=== PATIENT | male | born 2000 | race Caucasian/White ===

== ENCOUNTER 2023-06-19 22:56 | Emergency (ER) | payer MEDICAID, SELFPAY ==
[2023-06-19 23:00] VITALS: BP 143/99; PULSE 84; RESP 16; TEMP 36.6; O2SAT 100; BMI 37.9
--- NOTE | 2023-06-19 23:17 | ED.ABDPAIN1 ---
HPI - Abdominal Pain General Chief Complaint: Abdominal Pain Stated Complaint: HYPERGLYCEMIA Time Seen by Provider: 06/19/23 23:13 Source: patient Mode of arrival: walk-in History of Present Illness HPI narrative: past history of diabetes. states he has not taken any medication for diabetes for a couple of months. States he was on insulin but it was d/win by his doctor to switch him to oral meds. States his insurance would not pay for the oral medication so he hasn't taken any diabetic medication. States tonight his BS was 393. Admits it was higher yesterday at >410. Tonight at work he felt light headed and also has pain of his LLQ resulting in him coming to be seen. Admits to poor compliance with his diabetes . Poor eating habits. No fever or nausea MD elicited complaint: Reports abdominal pain Radiation: Reports LLQ Related Data Allergies Allergy/AdvReac Type Severity Reaction Status Date / Time No Known Drug Allergies Allergy Verified 06/19/23 23:06 Review of Systems ROS Status of ROS 10 or more systems reviewed and unremarkable except as noted in history and below Exam Constitutional Vital Signs, click to edit/add: Last Vital Signs Temp 97.8 F 06/19/23 23:00 Pulse 84 06/19/23 23:00 Resp 16 06/19/23 23:00 BP 143/99 H 06/19/23 23:00 Pulse Ox 100 06/19/23 23:00 O2 Del Method Room Air 06/19/23 23:00 Common normals: no apparent distress, average body habitus, oriented x3, no limitations and healthy appearing Eye Common normals: EOMs intact bilaterally and conjunctivae normal Respiratory Common normals: normal respiratory effort, no retractions, no use of accessory muscles and clear to auscultation bilaterally GI Common normals: Normal to inspection, nondistended, normoactive bowel sounds present Other: mild tenderness LLQ Extremity Common normals: normal to inspection and full ROM Neuro Common normals: oriented x3, CN's II-XII intact bilaterally, moves all extremities, no focal motor deficits and no sensory deficits noted Psych Appearance: grossly normal Course Vital Signs Vital signs: Vital Signs Temperature 97.8 F 06/19/23 23:00 Pulse Rate 84 06/19/23 23:00 Respiratory Rate 16 06/19/23 23:00 Blood Pressure 143/99 H 06/19/23 23:00 Pulse Oximetry 100 06/19/23 23:00 Oxygen Delivery Method Room Air 06/19/23 23:00 Temperature 97.8 F 06/19/23 23:00 Pulse Rate 84 06/19/23 23:00 Respiratory Rate 16 06/19/23 23:00 Blood Pressure 143/99 H 06/19/23 23:00 Pulse Oximetry 100 06/19/23 23:00 Oxygen Delivery Method Room Air 06/19/23 23:00 MDM - Abdominal Pain MDM Narrative Medical decision making narrative: patient presents complaining of abdominal pain and concern for pancreatitis. CT abdomen neg. Patient history of diabetes but has not been treating. His BS elevated 457. Clinically not in DKA. Given Insulin SQ in the department. Satisfactory response to insulin and patient discharged home with a prescription for insulin and advised to follow up with his doctor Lab Data Labs: Lab Results 06/19/23 06/19/23 06/19/23 Range/Units 00:00 23:03 23:36 WBC 5.8 (4.0-11.0) 10^3/uL RBC 5.04 (4.70-6.10) 10^6/uL Hgb 16.0 (14.0-18.0) g/dL Hct 42.1 (42.0-54.0) % MCV 83.5 (80.0-94.0) fL MCH 31.7 (25.9-34.0) pg MCHC 38.0 H (29.9-35.2) g/dL RDW 12.9 (11.0-15.0) % Plt Count 139 L (150-450) 10^3/uL MPV 10.2 (9.5-13.5) fL Neut % (Auto) 59.3 (43.0-75.0) % Lymph % (Auto) 32.4 (20.5-60.0) % [place] % (Auto) 4.6 (1.7-12.0) % Eos % (Auto) 0.9 (0.9-7.0) % Baso % (Auto) 0.7 (0.2-2.0) % Neut # (Auto) 3.5 (1.4-6.5) 10^3/uL Lymph # (Auto) 1.9 (1.2-3.8) 10^3/uL [place] # (Auto) 0.3 (0.3-0.8) 10^3/uL Eos # (Auto) 0.1 (0.0-0.7) 10^3/uL Baso # (Auto) 0.0 (0.0-0.1) 10^3/uL Abs Immat Gran (auto) 0.12 H (0.00-0.03) 10^3/uL Imm/Tot Granulo (auto) 2.1 H (0.0-0.5) % Sodium 128 L (136-145) mmol/L Potassium 3.7 (3.5-5.1) mmol/L Chloride 96 L (98-107) mmol/L Carbon Dioxide 14.7 L (21.0-32.0) mmol/L Anion Gap 21.0 BUN 17.0 (7.0-18.0) mg/dL Creatinine 1.06 (0.70-1.30) mg/dL Est GFR ( Amer) >60 (>=60) Est GFR (Non-Af Amer) >60 (>=60) BUN/Creatinine Ratio 16.0 Glucose 457 H (74-106) mg/dL Lactate <0.3 L (0.4-2.0) mmol/L Calcium 6.9 L (8.5-10.1) mg/dL Total Bilirubin 1.0 (0.2-1.0) mg/dL AST 17 (15-37) U/L ALT <6 L (16-63) U/L Alkaline Phosphatase 60 (46-116) U/L Total Protein 7.0 (6.4-8.2) g/dL Albumin 3.9 (3.4-5.0) g/dL Globulin 3.1 g/dL Albumin/Globulin Ratio 1.3 Lipase 117.0 (73.0-393.0) U/L Urine Color Yellow (YELLOW) Urine Clarity Clear (CLEAR) Urine pH 6.0 (5.0-9.0) Ur Specific [place] 1.010 (1.005-1.025) Urine Protein Negative (NEG/TRACE) mg/dL Urine Glucose (UA) >=1000 A (NEGATIVE) mg/dL Urine Ketones Negative (NEGATIVE) mg/dL Urine Occult Blood Negative (NEGATIVE) Urine Nitrite Negative (NEGATIVE) Urine Bilirubin Negative (NEGATIVE) Urine Urobilinogen 0.2 (0.2-1.0) EU/dL Ur Leukocyte Esterase Negative (NEGATIVE) POC Glucose 396 H (74-106) mg/dL 06/20/23 06/20/23 Range/Units 01:42 02:32 WBC (4.0-11.0) 10^3/uL RBC (4.70-6.10) 10^6/uL Hgb (14.0-18.0) g/dL Hct (42.0-54.0) % MCV (80.0-94.0) fL MCH (25.9-34.0) pg MCHC (29.9-35.2) g/dL RDW (11.0-15.0) % Plt Count (150-450) 10^3/uL MPV (9.5-13.5) fL Neut % (Auto) (43.0-75.0) % Lymph % (Auto) (20.5-60.0) % [place] % (Auto) (1.7-12.0) % Eos % (Auto) (0.9-7.0) % Baso % (Auto) (0.2-2.0) % Neut # (Auto) (1.4-6.5) 10^3/uL Lymph # (Auto) (1.2-3.8) 10^3/uL [place] # (Auto) (0.3-0.8) 10^3/uL Eos # (Auto) (0.0-0.7) 10^3/uL Baso # (Auto) (0.0-0.1) 10^3/uL Abs Immat Gran (auto) (0.00-0.03) 10^3/uL Imm/Tot Granulo (auto) (0.0-0.5) % Sodium (136-145) mmol/L Potassium (3.5-5.1) mmol/L Chloride (98-107) mmol/L Carbon Dioxide (21.0-32.0) mmol/L Anion Gap BUN (7.0-18.0) mg/dL Creatinine (0.70-1.30) mg/dL Est GFR ( Amer) (>=60) Est GFR (Non-Af Amer) (>=60) BUN/Creatinine Ratio Glucose (74-106) mg/dL Lactate (0.4-2.0) mmol/L Calcium (8.5-10.1) mg/dL Total Bilirubin (0.2-1.0) mg/dL AST (15-37) U/L ALT (16-63) U/L Alkaline Phosphatase (46-116) U/L Total Protein (6.4-8.2) g/dL Albumin (3.4-5.0) g/dL Globulin g/dL Albumin/Globulin Ratio Lipase (73.0-393.0) U/L Urine Color (YELLOW) Urine Clarity (CLEAR) Urine pH (5.0-9.0) Ur Specific [place] (1.005-1.025) Urine Protein (NEG/TRACE) mg/dL Urine Glucose (UA) (NEGATIVE) mg/dL Urine Ketones (NEGATIVE) mg/dL Urine Occult Blood (NEGATIVE) Urine Nitrite (NEGATIVE) Urine Bilirubin (NEGATIVE) Urine Urobilinogen (0.2-1.0) EU/dL Ur Leukocyte Esterase (NEGATIVE) POC Glucose 345 H 310 H (74-106) mg/dL Discharge Plan Discharge Chief Complaint: Abdominal Pain Clinical Impression: Hyperglycemia, Abdominal pain Patient Disposition: Home, Self-Care Mode of Transportation: Private Vehicle Instructions: Abdominal Pain (ED), Diabetic Hyperglycemia (ED) Stand Alone Forms: Portal Instructions Referrals: Physician,Non-Staff, MD [Primary Care Provider] - 1 week Discharge Date/Time: 06/20/23 02:49
--- NOTE | 2023-06-19 23:22 | CT_ITS ---
[place] [id number] Patient Name: TRACIE LOTT MRN: [id number] date: 2000 Sex: M Assigned Patient Location: ER Current Patient Location: Accession/Order Number: [id number] Exam Date: 06/19/2023 23:48 Report Date: 06/20/2023 00:49 At the request of: PEACE LOPEZ Procedure: CT abdomen pelvis w con EXAMINATION: CT abdomen pelvis w con HISTORY: Abdominal pain. COMPARISON: 01/22/2023. FINDINGS: No airspace consolidation in the included lung bases. CT ABDOMEN: Low-density lesion in the left hepatic lobe adjacent to the falciform ligament, which could be fatty infiltration, similar to the prior exam. No definite additional focal lesions in the liver. No focal lesions in the gallbladder, spleen, adrenal glands. Splenomegaly redemonstrated. No focal lesions in the pancreas. Gallbladder is contracted. No hydronephrosis or hydroureter. CT PELVIS: The appendix is normal. No abnormal small bowel distention. No inflammation around the colon. Urinary bladder is distended. No free fluid or free air. Straightening of the lumbar spine. No subluxation. CT/CT abdomen pelvis w con IMPRESSION: 1. No evidence for urinary tract obstruction. No evidence for appendicitis. No inflammatory changes in the small bowel and colon. No evidence for small bowel obstruction. 2. Redemonstration of fatty infiltration of the liver. Splenomegaly again visualized. Electronically authenticated by: MARLEN BARNES Date: 06/20/2023 00:49
[2023-06-19 23:23] LABS: Glucometer 396 mg/dL (74-106)
[2023-06-19] MEDS: 0.9 % SODIUM CHLORIDE 1,000 ML 999 ML IV (23:35)
--- NOTE | 2023-06-19 23:46 | PC.NURSE ---
patient stated he had abdominal pain when he woke up today. then felt light headed 4x over 5 hours at work. Had girlfriend bring in apolinareck and his bs was 298. patient came to ER. stated he has a hx of pancreatitis. He also states he has been off his diabetic medication for 2 months. his doctor took him off insulin and placed on oral medication. patient didnt get the oral bc insurance didnt cover it. patient did not notifiy his dr. or take his insulin. Patient states his blood sugar has been 200-400 over the past two months. patient has appointment with his pcp jun 26.
[2023-06-20 00:03] LABS: Alanine Aminotransferase <6 U/L (16-63); Albumin Globulin Ratio 1.3; Albumin Level 3.9 g/dL (3.4-5.0); Alkaline Phosphatase 60 U/L (46-116); Aspartate Amino Transferase 17 U/L (15-37); Calcium 6.9 mg/dL (8.5-10.1); Carbon Dioxide 14.7 mmol/L (21.0-32.0); Chloride 96 mmol/L (98-107); Estimated GFR (African America >60 (>=60); Estimated GFR (Non-African Ame >60 (>=60); Globulin 3.1 g/dL; Glucose 457 mg/dL (74-106); Potassium 3.7 mmol/L (3.5-5.1); Sodium 128 mmol/L (136-145)
[2023-06-20 00:05] LABS: Basophils Percent Auto 0.7 % (0.2-2.0); Eosinophils Absolute Auto 0.1 10^3/uL (0.0-0.7); Eosinophils Percent Auto 0.9 % (0.9-7.0); Hematocrit 42.1 % (42.0-54.0); Immature Granulocytes Abs Auto 0.12 10^3/uL (0.00-0.03); Immature Granulocytes Pct Auto 2.1 % (0.0-0.5); Lymphocytes Absolute Auto 1.9 10^3/uL (1.2-3.8); Lymphocytes Percent Auto 32.4 % (20.5-60.0); Mean Corpuscular Hemoglobin 31.7 pg (25.9-34.0); Mean Corpuscular Volume 83.5 fL (80.0-94.0); Mean Platelet Volume 10.2 fL (9.5-13.5); Monocytes Absolute Auto 0.3 10^3/uL (0.3-0.8); Monocytes Percent Auto 4.6 % (1.7-12.0); Neutrophils Absolute Auto 3.5 10^3/uL (1.4-6.5); Neutrophils Percent Auto 59.3 % (43.0-75.0); Platelet Count 139 10^3/uL (150-450); Red Blood Count 5.04 10^6/uL (4.70-6.10); Red Cell Distribution Width 12.9 % (11.0-15.0); White Blood Count 5.8 10^3/uL (4.0-11.0)
[2023-06-20 00:06] LABS: Lactate/Lactic Acid <0.3 mmol/L (0.4-2.0)
[2023-06-20 00:17] LABS: Bilirubin Urine NEGATIVE (NEGATIVE); Blood Urine NEGATIVE (NEGATIVE); Clarity Urine CLEAR (CLEAR); Color Urine YELLOW (YELLOW); Glucose Urine UA >=1000 mg/dL (NEGATIVE); Ketones Urine NEGATIVE (NEGATIVE); Leukocyte Esterase Urine NEGATIVE (NEGATIVE); Nitrite Urine NEGATIVE (NEGATIVE); Protein Urine NEGATIVE (NEG/TRACE); Urobilinogen Urine 0.2 EU/dL (0.2-1.0)
[2023-06-20 00:18] LABS: Urine Microscopic Indicated NO
[2023-06-20] MEDS: INSULIN ASPART 300 UNIT/3 ML PEN 12 UNIT SUBQ (01:00)
[2023-06-20 02:00] LABS: Glucometer 345 mg/dL (74-106)
[2023-06-20 02:34] LABS: Glucometer 310 mg/dL (74-106)
== END 2023-06-20 02:49 | disposition home or self-care (01) ==
PROVIDERS: Emergency Provider Internal Medicine
DX: E11.65 Type 2 diabetes mellitus with hyperglycemia (principal); R10.9 Unspecified abdominal pain; T38.3X6A Underdosing of insulin and oral hypoglycemic [antidiabetic] drugs, initial encounter
CPT/HCPCS: 36415; 74177; 80053; 81003; 83605; 83690; 85025; 99284; Q9967

== ENCOUNTER 2025-02-03 10:46 | Emergency (ER) | payer MEDICAID, SELFPAY ==
[2025-02-03 10:51] VITALS: BP 158/93; PULSE 90; TEMP 36.6; O2SAT 99; BMI 36.5
--- NOTE | 2025-02-03 10:58 | ECG_ITS ---
The [facility] Test Date: 2025-02-03 Pat Name: TRACIE LOTT Department: Room: - Gender: Male Tenoner Operator: : 2000 Requested By: 1030 Order Number: [id number] Reading MD: KHUSHBOO COVARRUBIAS M.D. Measurements Intervals [place] Rate: 91 P: 51 IN: 144 QRS: 66 QRSD: 96 T: 41 QT: 310 QTc: 359 Interpretive Statements 1100 Sinus rhythm 8102 Low QRS voltage in chest leads 8305 Short QTc interval 9150 abnormal ECG Compared to ECG 01/22/2023 16:46:50 Low QRS voltage now present Sinus tachycardia no longer present Electronically Signed On 02-04-2025 10:32:19 EDT by KHUSHBOO COVARRUBIAS M.D.
--- NOTE | 2025-02-03 10:58 | ED.GENADUL1 ---
HPI HPI - General Adult General Chief complaint: Chest Pain Stated complaint: CHEST PAINS SOB Time Seen by Provider: 02/03/25 10:48 Source: patient Mode of arrival: walk-in Limitations: no limitations History of Present Illness HPI narrative: 24-year-old male presents for chest pain. He has been having it every day for 3 months and it lasts for 10 to 20 minutes at a time and it feels like stabbing. He has a little bit now but it is more dull. He thinks it might be panic attacks but he wanted to make sure it was not something more serious. No fever or productive cough or vomiting. He smokes cigarettes and marijuana. He states he stopped drinking alcohol. Related Data Allergies Allergy/AdvReac Type Severity Reaction Status Date / Time No Known Drug Allergies Allergy Verified 06/19/23 23:06 Opioid HPI Opioid Management Most Recent Opioid Data: Last Pain Scale 2 06/19/23 23:41 06/19/23 Review of Systems ROS Narrative A ten point review of systems is negative except as noted above. PFSH PFSH Social History Little interest or pleasure in doing things: not at all Feeling down, depressed, or hopeless: not at all Exam Narrative Exam Narrative: Nurses note and vital signs reviewed and patient is not hypoxic. General: The patient appears well and in no apparent distress. Patient is resting comfortably on cart. Skin: Warm, dry, no pallor noted. There is no rash noted. Head: Normocephalic, atraumatic Eye: Normal conjunctiva, no drainage Ears, Nose, Mouth, and Throat: oral mucosa is moist. Nares patent. Cardiovascular: Regular Rate and Rhythm Respiratory: Patient is in no distress, no accessory muscle use, lungs are clear to auscultation, no wheezing, rales or rhonchi Back: non-tender GI: Soft and nontender Musculoskeletal: The patient has no evidence of calf tenderness, no pitting edema, symmetrical pulses noted bilaterally Neurological: A&O, normal speech Psychiatric: Cooperative Constitutional Vital Signs, click to edit/add: Last Vital Signs Temp 97.8 F 02/03/25 10:51 Pulse 90 02/03/25 10:51 Resp 18 02/03/25 10:51 BP 158/93 H 02/03/25 10:51 Pulse Ox 99 02/03/25 10:51 O2 Del Method Room Air 02/03/25 10:51 Course Vital Signs Vital signs: Vital Signs Temperature 97.8 F 02/03/25 10:51 Pulse Rate 90 02/03/25 10:51 Respiratory Rate 18 02/03/25 10:51 Blood Pressure 158/93 H 02/03/25 10:51 Pulse Oximetry 99 02/03/25 10:51 Oxygen Delivery Method Room Air 02/03/25 10:51 Temperature 97.8 F 02/03/25 10:51 Pulse Rate 90 02/03/25 10:51 Respiratory Rate 18 02/03/25 10:51 Blood Pressure 158/93 H 02/03/25 10:51 Pulse Oximetry 99 02/03/25 10:51 Oxygen Delivery Method Room Air 02/03/25 10:51 Medical Decision Making MDM Narrative Medical decision making narrative: His workup is negative here, including chest x-ray, EKG, and blood work. He will be discharged home and was advised follow-up with his physician. Treatment diagnosis and follow-up were discussed with the patient. Differential Diagnosis Differential Diagnosis: Chest pain, acute coronary syndrome, pneumothorax, muscle strain, anxiety Lab Data Lab results reviewed: Yes I reviewed the patient's lab results Labs: Lab Results 02/03/25 Range/Units 11:00 WBC 5.3 (4.0-11.0) 10^3/uL RBC 5.34 (4.70-6.10) 10^6/uL Hgb 16.9 (14.0-18.0) g/dL Hct 46.4 (42.0-54.0) % MCV 86.9 (80.0-94.0) fL MCH 31.6 (25.9-34.0) pg MCHC 36.4 H (29.9-35.2) g/dL RDW 12.8 (11.0-15.0) % Plt Count 150 (150-450) 10^3/uL MPV 9.7 (9.5-13.5) fL Neut % (Auto) 63.6 (43.0-75.0) % Lymph % (Auto) 27.6 (20.5-60.0) % Loving % (Auto) 6.0 (1.7-12.0) % Eos % (Auto) 1.1 (0.9-7.0) % Baso % (Auto) 0.6 (0.2-2.0) % Neut # (Auto) 3.4 (1.4-6.5) 10^3/uL Lymph # (Auto) 1.5 (1.2-3.8) 10^3/uL Loving # (Auto) 0.3 (0.3-0.8) 10^3/uL Eos # (Auto) 0.1 (0.0-0.7) 10^3/uL Baso # (Auto) 0.0 (0.0-0.1) 10^3/uL Abs Immat Gran (auto) 0.06 H (0.00-0.03) 10^3/uL Imm/Tot Granulo (auto) 1.1 H (0.0-0.5) % Sodium 139 (136-145) mmol/L Potassium 5.0 (3.5-5.1) mmol/L Chloride 102 (98-107) mmol/L Carbon Dioxide 28.5 (21.0-32.0) mmol/L Anion Gap 13.5 BUN 17.0 (7.0-18.0) mg/dL Creatinine 1.10 (0.70-1.30) mg/dL Est GFR ( Amer) >60 (>=60 mL/min/1.73m^2) Est GFR (Non-Af Amer) >60 (>=60 mL/min/1.73m^2) BUN/Creatinine Ratio 15.5 Glucose 304 H (74-106) mg/dL Calcium 9.3 (8.5-10.1) mg/dL Troponin I High Sens <4.0 L (4.0-76.1) pg/mL Imaging Data Chest x-ray: Radiologist's impression: No acute process ECG Data Attestation: I personally reviewed and interpreted this ECG as follows: (EKG on my interpretation shows normal sinus rhythm with rate of 91 and no acute change.) Discharge Plan Discharge Chief Complaint: Chest Pain Clinical Impression: Chest pain Patient Disposition: Home, Self-Care Time of Disposition Decision: 11:41 Condition: Good Mode of Transportation: Private Vehicle Print Language: Beninese Instructions: Chest Pain (ED) Referrals: Physician,Non-Staff, MD [Primary Care Provider] - 1 week
[2025-02-03 11:12] LABS: Basophils Percent Auto 0.6 % (0.2-2.0); Eosinophils Absolute Auto 0.1 10^3/uL (0.0-0.7); Eosinophils Percent Auto 1.1 % (0.9-7.0); Hematocrit 46.4 % (42.0-54.0); Hemoglobin 16.9 g/dL (14.0-18.0); Immature Granulocytes Abs Auto 0.06 10^3/uL (0.00-0.03); Immature Granulocytes Pct Auto 1.1 % (0.0-0.5); Lymphocytes Absolute Auto 1.5 10^3/uL (1.2-3.8); Lymphocytes Percent Auto 27.6 % (20.5-60.0); Mean Corpuscular HGB Conc 36.4 g/dL (29.9-35.2); Mean Corpuscular Hemoglobin 31.6 pg (25.9-34.0); Mean Corpuscular Volume 86.9 fL (80.0-94.0); Monocytes Absolute Auto 0.3 10^3/uL (0.3-0.8); Neutrophils Absolute Auto 3.4 10^3/uL (1.4-6.5); Neutrophils Percent Auto 63.6 % (43.0-75.0); Red Blood Count 5.34 10^6/uL (4.70-6.10); Red Cell Distribution Width 12.8 % (11.0-15.0); White Blood Count 5.3 10^3/uL (4.0-11.0)
[2025-02-03 11:22] LABS: Mean Platelet Volume 9.7 fL (9.5-13.5); Platelet Count 150 10^3/uL (150-450)
[2025-02-03 11:30] LABS: Anion Gap 13.5; BUN Creatinine Ratio 15.5; Calcium 9.3 mg/dL (8.5-10.1); Carbon Dioxide 28.5 mmol/L (21.0-32.0); Chloride 102 mmol/L (98-107); Estimated GFR (African America >60 (>=60 mL/min/1.73m^2); Estimated GFR (Non-African Ame >60 (>=60 mL/min/1.73m^2); Glucose 304 mg/dL (74-106); Sodium 139 mmol/L (136-145); Troponin I High Sensitivity <4.0 pg/mL (4.0-76.1)
== END 2025-02-03 12:01 | disposition home or self-care (01) ==
PROVIDERS: Emergency Provider Emergency Medicine
DX: R07.9 Chest pain, unspecified (principal); F17.210 Nicotine dependence, cigarettes, uncomplicated
CPT/HCPCS: 36415; 71045; 80048; 84484; 85025; 93005; 99285

== ENCOUNTER 2025-03-31 03:25 | Emergency (ER) | payer MEDICAID, SELFPAY ==
[2025-03-31 03:36] VITALS: BP 150/97; PULSE 104; TEMP 37; O2SAT 96; BMI 35.8
--- OUTSIDE RECORDS SUMMARY | 2025-03-31 03:40 | XMS_ITS | CCD ---
Author Organization [facility] Care Team Providers Care Ammunition Officer Name Role Phone Fito Villalobos Primary Care Provider Fito Villalobos Primary Care Provider FITO VILLALOBOS Referring Unavailable FITO VILLALOBOS Primary Care Unavailable FITO VILLALOBOS Referring Unavailable FITO VILLALOBOS Primary Care Unavailable FITO VILLALOBOS Primary Care Unavailable THUMMALAPALLY, RUSHEETH Admitting Unavaila ble THMOISES BACKH Attending Unavaila Fito Koch Primary Care Provider FITO VILLALOBOS Primary Care Unavailable DEGROOT, MARIXA Consulting Unavailable DEGROOT, MARIXA Admitting Unavailable JEAN PIERRE BARTON Attending Unavailable FITO VILLALOBOS Primary Care Unavailable JAMES, YOLANDA Consulting Unavailable THUMTRIXIE, MACKENZIEHEETH Attending Unavaila ble THUMMALAPALLMACKENZIE ObregonHEETH Admitting Unavaila ble CASEY, WANDA S Consulting Unavailable CHELSEA Olivas Attending Provider Unavail able Lynn Olivas Unavailable NON STAFF Attending Provider Unavailable MD John Kraft Attending Provider REQUEST, DR NONE LISTED Primary Care Unavaila gail Davey, DR DEE Admitting Unavailable RADHA Davey, DR DEE Attending Unavailable RADHA Davey, DR DEE Consulting Unavailable HENRRY, DR CÉSAR Metzger Consulting Unavailable SMITH, CAYETANO Consulting Unavailable SHAIKH Joyce KRAFT Consulting Unavailable SISTER, ADRI Consulting Unavailable DIAB ., TELMA Consulting Unavailable STEPHANIE, BRIGITTE Consulting Unavailable WAN ANGEL Attending Unavailable FANNY SOTO Referring Unavailable JOSELINE MOJICA Attending Unavailable FANNY SOTO Referring Unavailable Demetria Cifuentes Unavailable Olegario COSTA Attending Unavailable SELF, SELF Referring Unavailable Joel PATEL Attending Unavailable Joel PATEL Attending Unavailable Joel PATEL Attending Unavailable HAILEE Cifuentes Primary Care Provider DO Yane Briscoe Emergency Provider MD Blue Talbot Admit Provider MD Blue Talbot Attending Provider ANGELO Kaur Other Provider Unavailable ANGELO Genao Other Provider Unavailable ANGELO Leach Other Provider Unavailable ANGELO Nettles Other Provider Unavailable ANGELO Rivas Other Provider Unavailable DO Amber Dillon Other Provider MD Delano Vicente Other Provider DO Von Roberts Other Provider MD Flex Govea Other Provider MD Sunshine Couch Other Provider MD Ari Blackmon Other Provider Unavailable HAILEE Valdes Other Provider MD Aryan Santos Other Provider MD Victor Hugo Menjivar Other Provider MD Helen Hernandez Other Provider MD Leti Tucker Other Provider DO Mauricio White Other Provider MD Nubia Dhaliwal Other Provider MD Panchito Ferro Other Provider CHELSEA Montanez Other Provider HAILEE Danielle Other Provider Unavailable MD Ramesh Garcia Other Provider MD Oz Carrillo Other Provider MD Salty Pena Other Provider MD Adry Weeks Other Provider Unavailable MD Tony Wayne Other Provider DO Katie Cantu Other Provider DO Escobar Jones Other Provider HAILEE Garcia Other Provider DO Manohar Carter Other Provider MD Dayan Perrin Other Provider HAILEE Finley Other Provider HAILEE Correa Other Provider [phone] MD Wilfred Moreno Other Provider MD Hudson Turner Other Provider [phone] DO Maged Francisco Javier T Other Provider DO Jermaine Yazid Other Provider MD Jean Darius P Other Provider MD Blair Ni Other Provider HAILEE Vasquez Other Provider MD Xiomy Rocha Other Provider MD Sam Wolfe Other Provider ANGELO Curiel Other Provider Unavailable NO FAMILY, PHYSICIAN Primary Care Provider Unava ilable Guillermina Shetty APRN Emergency Provider Blue Talbot MD Admit Provider Blue Talbot MD Attending Provider [phone] Demetria Cifuentes APRN Primary Care Provider Blue Talbot MD Attending Provider Natasha RN, Yane Other Provider Unavailable Birgit STEPHENS, Tiffanie Other Provider Unavailable Haylee RN, Ria Other Provider Unavailable Tho RN, Latasha Other Provider Unavailable Rob RN, Alicia Other Provider Unavailable Juan M Beltran MD Other Provider Amber Dillon DO Other Provider Cinthia GALINDO, Delano Other Provider Von Roberts DO Other Provider Xuan GALINDO, Flex Other Provider [phone] Khoa GALINDO, Sunshine Other Provider Inge RED, Mauricio Other Provider Neymar GALINDO, Ari Other Provider Unavailable Rola Valdes APRN Other Provider Danielle GALINDO, Aryan Other Provider [phone] Tiara GALINDO, Victor Hugo Other Provider David GALINDO, Helen Other Provider Unavailable Leti Tucker MD Other Provider Mauricio White DO Other Provider Nubia Dhaliwal MD Other Provider Panchito Ferro MD Other Provider Tarik PICKLING MACHINE OPERATOR-C, Gabriela Cardona Other Provider Shashi STEPHEN, Veronica Reina Other Provider Unavailable Ramesh Garcia MD Other Provider Oz Carrillo MD Other Provider Jean GALINDO, Salty Other Provider Desi GALINDO, Adry Other Provider Unavailable Tony Wayne MD Other Provider Katie Cantu DO Other Provider Escobar Jones DO Other Provider Lynnette Garcia APRN Other Provider Manohar Carter DO Other Provider [phone] Marychuy GALINDO, Dayan Reina Other Provider Iza Finley APRN Other Provider Hanna Correa APRN Other Provider [phone] Josh GALINDO, Wilfred Other Provider Unavailable Johnny GALINDO, Hudson Cardona Other Provider Lynne DO, Francisco Javier T Other Provider Jermaine DO, Yazid Other Provider Jean GALINDO, Darius Berrios Other Provider Blair Ni MD Other Provider Mesha Vasquez APRN Other Provider Unavailable Aj GALINDO, Xiomy Other Provider Yaneth GALINDO, Sam Other Provider Devaughn GALINDO, Emeka Joseph Other Provider Yasemin GALINDO, Ari Perez Other Provider [phone] Wale Beck MD Other Provider Nicolasa Cramer APRN Other Provider Nathaniel Garcia APRN Other Provider Veena STEPHENS, Saloni Other Provider Unavailable Ceferino Edwards MD Attending Provider [phone] [facility] ider Blue Talbot Attending Unavailab Blue Hernandez Admitting Unavailab Demetria Oshea Primary Care Unavailable Yane Kaur Consulting Unavailable Tiffanie Genao Consulting Unavailable Ria Leach Consulting Unavailable Latasha Nettles Consulting Unavailable Alicia Rivas Consulting Unavailable Amber Dillon Consulting Unavailable Delano Vicente Consulting Unavailable Von Roberts Consulting Unavailabl Flex Kim Consulting Unavailable Sunshine Couch Consulting Unavailable Ari Blackmon Consulting Unavailable Rola Valdes Consulting Unavailabl Esther Lillywan Consulting Unavailable Tiara, Victor Hugo Consulting Unavailable David, Helen Consulting Unavailable Leanne Tuckern Consulting Unavailable Mauricio White Consulting Unavailable Nubia Dhaliwal Consulting Unavailable Panchito Ferro Consulting Unavailable Gabriela Montanez Consulting Unavailable Veronica Danielle Consulting Unavailable Ramesh Garcia Consulting Unavailab Oz Galvan Consulting Unavailable Salty Pena Consulting Unavailable Adry Weeks Consulting Unavailable Tony Wayne Consulting Unavailable Katie Cantu Consulting Unavailable Escobar Jones Consulting Unavailable Lynnette Garcia Consulting Unavailable Manohar Carter Consulting Unavailable Dayan Perrin Consulting Unavailable Iza Finley Consulting Unavailable Hanna Correa Consulting Unavailable Wilfred Moreno Consulting Unavailable Hudson Turner Consulting Unavailable Francisco Javier Lynne Consulting Unavailable Karrie Dean Consulting Unavailable Darius Pena Consulting Unavailable Blair Ni Consulting Unava ilable Mesha Vasquez Consulting Unavailable Xiomy Rocha Consulting Unavailable Sam Wolfe Consulting Unavailable Saloni Curiel Consulting Unavailable Guillermina Shetty Attending Unavailable [facility] U navailable Guillermina Shetty Admitting Unavailable Blue Talbot Attending Unavailab Blue Hernandez Admitting Unavailab Demetria Oshea Primary Care Unavailable Yane Kaur Consulting Unavailable NO FAMILY, PHYSICIAN Primary Care Unavailable Loly Talbotrahman Admitting Unavailab Ceferino Abraham Attending Unavailable Tiffanie Genao Consulting Unavailable Ria Leach Consulting Unavailable Latasha Nettles Consulting Unavailable Alicia Rivas Consulting Unavailable Juan M Beltran Consulting Unavailable Amber Dillon Consulting Unavailable Delano Vicente Consulting Unavailable Von Roberts Consulting UnavailFlex Rodney Consulting Unavailable Sunshine Couch Consulting Unavailable Mauricio Alcazar Consulting Unavailable Ari Blackmon Consulting Unavailable Rola Valdes Consulting Unavailfranklyn Santos, Marwan Consulting Unavailable Tiara, Victor Hugo Consulting Unavailable Hernandez, Helen Consulting Unavailable Leti Tucker Consulting Unavailable Mauricio White Consulting Unavailable Nubia Dhaliwal Consulting Unavailable Panchito Ferro Consulting Unavailable Gabriela Montanez Consulting Unavailable Veronica Danielle Consulting Unavailable Ramesh Garcia Consulting Unavailab Oz Galvan Consulting Unavailable Salty Pena Consulting Unavailable Adry Weeks Consulting Unavailable Tony Wayne Consulting Unavailable Katie Cantu Unavailable Escobar Jones Consulting Unavailable Lynnette Garcia Consulting Unavailable Manohar Carter Consulting Unavailable AbneromaDayan barber Consulting Unavailable Iza Finley Consulting Unavailable Hanna Correa Consulting Unavailable Wilfred Moreno Consulting Unavailable Hudson Turner Consulting Unavailable Francisco Javier Lynne Consulting Unavailable Karrie Dean Consulting Unavailable Darius Pena Consulting Unavailable Blair Ni Consulting Unava Mesha Yuan Consulting Unavailable Xiomy Rocha Consulting Unavailable Sam Wolfe Consulting Unavailable Emeka Cantor Consulting Unavailable Ari Hazel Consulting Unavailable Wale Beck Consulting Unavailable Nicolasa Cramer Consulting Unavailable Bolzan-Tc Gallolettcarmela Consulting Unavaila Saloni Coleman Consulting Unavailable Allergies Allergy Classification Reported Allergen(s) Allergy Type Date of Onset Reaction(s) Facility (1 source) Adhesive Tape Propensity to adverse reactions to drug 0 Rash [place], [place] (1 source) No Known Medication Allergies; 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: [No Known Medication Allergies] Propensity to adverse reactions (disorder) [facility] Repository Medications Current Medications Medication Drug Class(es) Dates Sig (Normalized) Sig (Original) Acetaminophen (1 source) Start: 07-30-2020 acetaminophen (TYLENOL) tablet 650 mg ARIPiprazole 5 mg oral tablet (9 sources) Atypical Antipsychotic Start: 01-09-2025 take 1 tablet by mouth once daily Aripiprazole 5 mg Tablet Active 5 MG PO Daily 30 January 09, 2025 12:00am Start: 01-09-2025 Aripiprazole ( Abilify Maintena) 400 mg Suspension,Extended Rel Syring Active 400 MG IM Q28D January 09, 2025 12:00am Start: 2020 End: 07-31-2020 take 1 tablet by mouth once daily ARIPiprazole (ABILIFY) 2 MG tablet Take 1 tablet by mouth daily 30 tablet 0 2020 07/31/2020 Discontinued (LIST CLEANUP) End: 08-05-2020 take 1 tablet by mouth once daily ARIPiprazole (ABILIFY) 10 MG tablet Take 10 mg by mouth daily 0 08/05/2020 Discontinued (Stop Taking at Discharge) End: 08-01-2020 take 1 tablet by mouth once daily ARIPiprazole (ABILIFY) 5 MG tablet Take 5 mg by mouth daily 0 08/01/2020 Discontinued (Stop Taking at Discharge) atorvastatin 40 mg oral tablet (3 sources) HMG-CoA Reductase Inhibitor Start: 07-31-2020 take 1 tablet by mouth once daily atorvastatin (LIPITOR) 40 MG tablet Take 1 tablet by mouth daily 30 tablet 3 08/01/2020 Active Blood Sugar Diagnostic (3 sources) Start: 06-29-2024 Blood Sugar Diagnostic Active 0 .Route 100 June 29, 2024 12:00am to test blood sugar 5 times daily Blood-Glucose Meter (3 sources) Start: 06-29-2024 Blood-Glucose Meter Active 0 .Route 1 June 29, 2024 12:00am to test blood sugar daily Blood-Glucose Meter kit (2 sources) Start: 06-29-2024 Blood-Glucose Meter kit Active 0 .Route 1 June 29, 2024 12:00am to test blood sugar daily 24 hr buPROPion hydrochloride 300 mg extended release oral tablet (20 sources) Aminoketone Start: 04-25-2024 buPROPion 300 mg/24 hours ER Tab Refills(s) 0 Start Date: 04/25/24 Status: Ordered Start: 02-15-2024 End: 06-29-2024 take 1 tablet by mouth once daily in the morning Bupropion Hcl (Wellbutrin Xl) 300 mg tablet extended release 24 hr Discontinued 300 MG PO Every morning February 15, 2024 12:00am June 29, 2024 11:14am Start: 12-08-2023 End: 02-15-2024 take 1 tablet by mouth once daily in the morning Bupropion Hcl 150 mg tablet extended release 24 hr Discontinued 150 MG PO Every morning 90 December 22, 2023 4:12pm February 15, 2024 11:03am ciprofloxacin 500 mg oral tablet (1 source) Quinolone Antimicrobial Start: 04-25-2024 End: 04-30-2024 take 1 tablet by mouth twice daily at mealtime Cipro 500 mg Tab 500 mg = 1 tab(s), Oral, BID, start with first meal after procedure, X 5 day(s), # 10 tab(s), Refills(s) 0, Pharmacy: [facility]/pharmacy #[id number], 174, cm, 04/25/24 11:22:00 EDT, Height/Length Dosing, 113.5, kg, 04/25/24 11:22:00 EDT, Weight Dosing Start Date: 04/25/24 Stop Date: 04/30/24 Status: Ordered diazePAM 10 mg oral tablet (2 sources) Benzodiazepine Start: 04-25-2024 take 1 tablet by mouth once daily Valium 10 mg Tab 10 mg = 1 tab(s), Oral, Daily, take 30 minutes prior to procedure, # 1 tab(s), Refills(s) 0, Pharmacy: [facility]/pharmacy #[id number], 174, , 04/25/24 11:22:00 EDT, Height/Length Dosing, 113.5, kg, 04/25/24 11:22:00 EDT, Weight Dosing Start Date: 04/25/24 Status: Ordered 0.3 ml enoxaparin sodium 100 mg/ml prefilled syringe (1 source) Low Molecular Weight Heparin Start: 07-31-2020 enoxaparin (LOVENOX) injection 30 mg escitalopram 10 mg oral tablet (6 sources) Serotonin Reuptake Inhibitor Start: 01-09-2025 Escitalopram Oxalate 10 mg Tablet Active 15 MG PO Every morning January 09, 2025 12:00am Start: 01-05-2025 End: 01-09-2025 take 1 tablet by mouth once daily in the morning Escitalopram Oxalate 10 mg Tablet Discontinued 10 MG PO Every morning January 05, 2025 12:00am January 09, 2025 1:04pm Start: 08-04-2024 End: 01-05-2025 Escitalopram Oxalate 10 mg T ablet Discontinued 15 MG PO Every morning August 04, 2024 12:00am January 05, 2025 6:20pm Start: 08-04-2024 take 15 mg by mouth once daily in the morning Escitalopram Oxalate Active 15 MG PO Every morning August 044 12:00am famotidine 20 mg oral tablet (3 sources) Histamine-2 Receptor Antagonist Start: 07-30-2020 take 1 tablet by mouth twice daily famotidine (PEPCID) 20 MG tablet Take 1 tablet by mouth 2 times daily 60 tablet 3 08/01/2020 Active glucagon (rdna) 1 mg injection (1 source) Antihypoglycemic Agent Start: 07-30-2020 take 1 mL intravenous route every hour 1 mg, Intramuscular, PRN, Low blood sugar, Blood glucose less than 70 mg/dL and patient NOT ALERT or NPO and does not have IV access., Starting 07/30/20 at 2152 After administration, attempt intravenous access and start D5W at 100 mL/hr. Repeat blood glucose in 15 minutes x2 and notify provider. 1000 ml glucose 500 mg/ml injection (3 sources) Start: 07-30-2020 15 g, Oral, PRN, Low blood sugar, Starting 07/30/20 at 2152 If blood glucose less than 50 mg/dL and patient ALERT and TOLERATING PO, give 2 tubes glucose gel. If blood glucose less than 70 mg/dL and patient ALERT and TOLERATING PO, give 1 tube glucose gel. Repea t blood glucose in 15 minutes. If blood glucose is less than 70 mg/dL, repeat treatment and recheck blood glucose in 15 minutes x2 and notify provider. Start: 07-30-2020 12.5 g, Intrav enous, PRN, Low blood sugar, Blood glucose less than 70 mg/dL and patient NOT ALERT or NPO., Starting 07/30/20 at 2152 If patient does not respond within 5 minutes, repeat dose x1. Start D5W at 100 mL/hour until ordering provider can be reached. Repeat blood glucose in 15 minutes. If blood glucose is less than 70 mg/dL, repeat treatment and recheck blood glucose in 15 minutes x2. If using Glucostabilizer, dose as instructed per system. Start: 07-30-2020 100 mL/hr, Int ravenous, at 100 mL/hr, PRN, Low blood sugar, Starting 07/30/20 at 2152 Start infusion following administration of dextrose 50% or glucagon. hydrOXYzine hydrochloride 50 mg oral tablet (5 sources) Antihistamine Start: 2020 End: 03-16-2020 take 1 tablet by mouth three times daily as needed for anxiety hydrOXYzine (ATARAX) 50 MG tablet Take 1 tablet by mouth 3 times daily as needed for Anxiety 45 tablet 0 2020 03/16/2020 Active take 1 capsule by mo uth four times daily as needed hydrOXYzine (VISTARIL) 50 MG capsule Take 50 mg by mouth 4 times daily as needed for Itching 0 Active End: 08-01-2020 HYDROXYZINE HCL PO Take by m outh 0 08/01/2020 Discontinued (Stop Taking at Discharge) 3 ml insulin glargine 100 unt/ml pen injector (6 sources) Insulin Analog Start: 01-05-2025 Insulin Glargi ne (Lantus Solostar U-100 Insulin) 100 unit/mL (3 mL) insulin pen Active 35 UNIT SUBCUT Every evening January 05, 2025 12:00am Start: 06-29-2024 End: 01-05-2025 Insulin Glargine (Lantus Rosita ostar U-100 Insulin) 100 unit/mL (3 mL) insulin pen Discontinued 36 UNIT SUBCUT Every evening 10.8 30 June 29, 2024 2:21pm January 05, 2025 6:39pm 3 ml insulin lispro 100 unt/ml pen injector (5 sources) Insulin Analog Start: 04-25-2024 Insulin Lispro KwikPen 100 units/mL injectable solution Refills(s) 0 Start Date: 04/25/24 Status: Ordered Start: 07-31-2020 0-12 Units, Subcutaneous, 3 TIMES DAILY WITH MEALS, First dose on Thu07/31/20 at 0800 Medium Dose Corrective Algorithm Glucose: Dose: If <139 No Insulin 140-199 2 Units 200-249 4 Units 250-299 6 Units 300-349 8 Units 350-400 10 Units Above 400 12 Units Start: 07-30-2020 0-6 Units, Subcutaneous, NIG HTLY, First dose on Thu07/30/20 at 2200 If continuous tube feedings/TPN/NPO, give correction dose based on result, no reduction in dose. If eating or bolus tube feeding: Medium Dose Corrective Algorithm Glucose: Dose: If <139 No Insulin 140-199 1 Unit 200-249 2 Units 250-299 3 Units 300-349 4 Units 350-400 5 Units Above 400 6 Units HumaLOG KwikPen 100 UNIT/ML as directed Subcutaneous sliding scale and corrective. for 30 days Active Insulin Lispro (Humalog Kwik pen Insulin) 100 unit/mL insulin pen (14 sources) Start: 06-29-2024 Insulin Lispro (Humalog Kwikpen Insulin) 100 unit/mL insulin pen Active 1 sliding scale dose SUBCUT Use as Directed June 29, 2024 11:22am 12 units with each meal 150-200 - 3 units 200-330 - 6 units 330-399 - 9 units > 400 - 12 units Start: 12-08-2023 End: 06-29-2024 Insulin Lispro (Humalog Kwik pen Insulin) 100 unit/mL insulin pen Discontinued 1 sliding scale dose SUBCUT Use as Directed December 08, 2023 1:00am June 29, 2024 11:23am Start: 12-08-2023 Insulin Lispro (Humalog Kwikpen Insulin) 100 unit/mL insulin pen Active 1 sliding scale dose SUBCUT Use as Directed December 08, 2023 1:00am Start: 12-08-2023 Insulin Lispro (Humalog Kwikpen Insulin) 100 unit/mL insulin pen Active 1 sliding scale dose SUBCUT Use as Directed December 08, 2023 12:00am lamoTRIgine 25 mg oral tablet (9 sources) Mood Stabilizer, Anti-epileptic Agent Start: 08-04-2024 End: 01-09-2025 take 1 tablet by mouth twice daily Lamotrigine 25 mg Tablet Active 25 MG PO Twice daily 60 January 09, 2025 12:46pm Start: 02-14-2020 LaMICtal 25 MG Oral Tablet 02/14/2020 Provider: Fito Villalobos CNP meloxicam 7.5 mg oral tablet (3 sources) Nonsteroidal Anti-inflammatory Drug Start: 02-14-2020 Mobic 7.5 MG Oral Tablet 02/14/2020 Provider: Fito Villalobos CNP metFORMIN hydrochloride 1000 mg oral tablet (5 sources) Biguanide Start: 01-05-2025 take 1 tablet by mouth twice daily Metformin 1,000 mg tablet Active 1000 MG PO Twice daily January 05, 2025 12:00am Start: 08-05-2020 take 1 tablet by usha th twice daily at mealtime metFORMIN (GLUCOPHAGE) 1000 MG tablet Take 1 tablet by mouth 2 times daily (with meals) 60 tablet 0 08/05/2020 Active End: 08-05-2020 take 500 mg by mouth twice daily at mealtime METFORMIN HCL PO Take 500 mg by mouth 2 times daily (with meals) 0 08/05/2020 Discontinued (Stop Taking at Discharge) nicotine 2 mg chewing gum (1 source) Cholinergic Nicotinic Agonist Start: 07-31-2020 nicotine polacrilex (NICORETTE) gum 2 mg polyethylene glycol 3350 92413 mg powder for oral solution (1 source) Osmotic Laxative Start: 07-30-2020 17 g, Oral, DAILY PRN, Constipation, Starting 07/30/20 at 2152 First line therapy for constipation Promethazine (1 source) Phenothiazine Start: 07-30-2020 promethazine (PHENERGAN) tablet 12.5 mg sertraline 50 mg oral tablet (1 source) Serotonin Reuptake Inhibitor Start: 08-06-2020 take 1 tablet by mouth once daily sertraline (ZOLOFT) 50 MG tablet Take 1 tablet by mouth daily 30 tablet 3 08/06/2020 Active Start: 08-06-2020 take 1 tablet by usha th once daily sertraline (ZOLOFT) 50 MG tablet Take 1 tablet by mouth daily 30 tablet 3 08/06/2020 Active 1000 ml sodium chloride 9 mg/ml injection (4 sources) Start: 07-30-2020 10 mL, Intrave nous, EVERY 12 HOURS SCHEDULED (2 times per day), First dose on Thu07/30/20 at 2200 Start: 07-30-2020 take 10 mL intraveno us route once as needed 10 mL, Intravenous, PRN, Line Care, After every IV line use, Starting Thu07/30/20 at 2152 Start: 07-30-2020 End: 07-30-2020 Intravenous, at 75 mL/hr, CONTINUOUS, Starting Thu07/30/20 at 2200 traZODone hydrochloride 150 mg oral tablet (6 sources) Serotonin Reuptake Inhibitor Start: 01-05-2025 End: 01-09-2025 take 1 tablet by mouth at bedtime Trazodone 150 mg tablet Active 150 MG PO Bedtime January 09, 2025 12:46pm Start: 2020 take 1 tablet by usha th once daily as needed for sleep traZODone (DESYREL) 50 MG tablet Take 1 tablet by mouth nightly as needed for Sleep 30 tablet 0 2020 Active Completed/Discontinued Medications Medication Drug Class(es) Dates Sig (Normalized) Sig (Original) [id number] 200 actuat albuterol 0.09 mg/actuat metered dose inhaler (8 sources) beta2-Adrenergic Agonist Start: 12-11-2023 End: 07-27-2024 take 1 puff(s) by inhalation four times daily as needed for wheezing Albuterol Sulfate 90 mcg/actuation HFA aerosol inhaler Discontinued 2 PUFF INHALATION Four times daily as needed for shortness of breath or wheezing 8.5 December 11, 2023 1:00am July 27, 2024 4:05pm atomoxetine 40 mg oral capsule (13 sources) Norepinephrine Reuptake Inhibitor Start: 07-27-2024 End: 01-05-2025 take 1 capsule by mouth once daily Atomoxetine 40 mg capsule Discontinued 40 MG PO Daily 90 90 July 27, 2024 4:12pm January 05, 2025 6:21pm Start: 06-29-2024 End: 07-27-2024 take 1 capsule by mouth once daily Atomoxetine (Strattera) 25 mg capsule Discontinued 25 MG PO Daily June 29, 2024 12:00am July 27, 2024 4:13pm Start: 04-25-2024 atomoxetine 40 mg Cap Refills(s) 0 Start Date: 04/25/24 Status: Ordered azithromycin 250 mg oral tablet (10 sources) Macrolide Antimicrobial Start: 12-11-2023 End: 02-15-2024 take 2 tablets by mouth once daily, then take 1 tablet by mouth once daily Azithromycin (Zithromax Z-Maximino) 250 mg tablet Discontinued 250 MG PO Daily 6 December 11, 2023 1:00am February 15, 2024 10:58am take 2 tabs today and 1 daily for the next 4 days Start: 09-30-2022 take 2 tablets by mo ut once at mealtime Azithromycin 600 MG 2 tablets Orally once for 1 days Take 2 tablets p.o. with food on Sep, Not-Taking/PRN benzonatate 200 mg oral capsule (8 sources) Non-narcotic Antitussive Start: 12-11-2023 End: 02-15-2024 Benzonatate 200 mg capsule Discontinued 200 MG PO 2-3 TIMES PER DAY as needed for cough December 11, 2023 1:00am February 15, 2024 10:58am busPIRone hydrochloride 15 mg oral tablet (20 sources) Start: 02-15-2024 End: 07-27-2024 take 1 tablet by mouth three times daily Buspirone 15 mg tablet Discontinued 15 MG PO Three times daily February 15, 2024 12:00am July 27, 2024 4:06pm Start: 12-04-2023 End: 02-15-2024 take 1 tablet by mouth twice daily Buspirone 5 mg tablet Discontinued 5 MG PO Twice daily December 08, 2023 1:00am February 15, 2024 11:03am cefTRIAXone (3 sources) Cephalosporin Antibacterial Start: 09-29-2022 Rocephin 500 mg Sep, 500 mg cephalexin 500 mg oral capsule (7 sources) Cephalosporin Antibacterial Start: 03-03-2024 End: 06-29-2024 take 1 capsule by mouth twice daily Cephalexin 500 mg capsule Discontinued 500 MG PO Twice daily 14 March 03, 2024 12:00am June 29, 2024 10:40am cinnamon bark 500 mg oral capsule (8 sources) Start: 02-15-2024 End: 07-27-2024 take 1 capsule by mouth once daily Cinnamon Bark (Cinnamon) 500 mg capsule Discontinued 1000 MG PO Daily February 15, 2024 12:00am July 27, 2024 4:06pm DULoxetine 30 mg delayed release oral capsule (3 sources) Serotonin and Norepinephrine Reuptake Inhibitor Start: 2020 End: 08-05-2020 take 3 capsules by mouth once daily DULoxetine (CYMBALTA) 30 MG extended release capsule Take 3 capsules by mouth daily 90 capsule 0 2020 08/05/2020 Discontinued (Stop Taking at Discharge) etodolac 400 mg oral tablet (7 sources) Nonsteroidal Anti-inflammatory Drug Start: 03-03-2024 End: 07-27-2024 take 1 tablet by mouth twice daily Etodolac 400 mg tablet Discontinued 400 MG PO Twice daily 60 March 03, 2024 12:00am July 27, 2024 4:07pm fenofibrate 145 mg oral tablet (20 sources) Peroxisome Proliferator Receptor alpha Agonist Start: 08-01-2024 End: 08-09-2024 take 1 tablet by mouth once daily Fenofibrate Nanocrystallized 145 mg tablet Discontinued 145 MG PO Daily August 04, 2024 9:13am August 09, 2024 11:42am Start: 04-25-2024 fenofibrate 14 5 mg Tab Refills(s) 0 Start Date: 04/25/24 Status: Ordered Start: 02-15-2024 End: 03-09-2024 take 1 tablet by mouth once daily Fenofibrate 160 mg tablet Discontinued 160 MG PO Daily February 15, 2024 12:00am March 09, 2024 11:57am Start: 12-08-2023 End: 02-15-2024 take 1 tablet by mouth once daily Fenofibrate Nanocrystallized 145 mg tablet Discontinued 145 MG PO Daily December 08, 2023 3:54pm February 15, 2024 11:05am take 1 tablet by usha th every twenty-four hours Fenofibrate 160 MG 1 tablet Orally Once a day for 30 days Active Fenofibrate Nanocrystallized (8 sources) Start: 03-09-2024 End: 07-27-2024 take 1 tablet by mouth once daily Fenofibrate Nanocrystallized Discontinued 0 .ROUTE .COMPLEX March 09, 2024 1:54pm July 27, 2024 4:06pm TAKE 1 TABLET BY MOUTH EVERY DAY Start: 03-09-2024 take 1 tablet by usha th once daily Fenofibrate Nanocrystallized Active 0 .ROUTE .COMPLEX March 09, 2024 1:54pm TAKE 1 TABLET BY MOUTH EVERY DAY Start: 03-09-2024 End: 03-09-2024 take 145 mg by mouth once daily Fenofibrate Nanocrystallized Discontinued 145 MG PO Daily March 09, 2024 12:00am March 09, 2024 1:54pm Fenofibrate Nanocrystallized 145 mg tablet (6 sources) Start: 08-09-2024 End: 01-05-2025 take 1 tablet by mouth once daily Fenofibrate Nanocrystallized 145 mg tablet Discontinued 0 .ROUTE .COMPLEX August 09, 2024 11:42am January 05, 2025 6:21pm TAKE 1 TABLET BY MOUTH EVERY DAY Start: 03-09-2024 End: 07-27-2024 take 1 tablet by mouth once daily Fenofibrate Nanocrystallized 145 mg tablet Discontinued 0 .ROUTE .COMPLEX March 09, 2024 1:54pm July 27, 2024 4:06pm TAKE 1 TABLET BY MOUTH EVERY DAY Start: 03-09-2024 End: 03-09-2024 take 1 tablet by mouth once daily Fenofibrate Nanocrystallized 145 mg tablet Discontinued 145 MG PO Daily March 09, 2024 12:00am March 09, 2024 1:54pm gabapentin 300 mg oral capsule (10 sources) Anti-epileptic Agent Start: 02-15-2024 End: 07-27-2024 take 1 capsule by mouth three times daily Gabapentin 300 mg capsule Discontinued 300 MG PO Three times daily February 15, 2024 12:00am July 27, 2024 4:06pm insulin detemir 100 unt/ml injectable solution (16 sources) Insulin Analog Start: 12-08-2023 End: 06-29-2024 inject 36 [IU] by subcutaneous injection once daily at bedtime Insulin Detemir U-100 (Levemir U-100 Insulin) 100 unit/mL solution Discontinued 36 UNIT SUBCUT Daily at bedtime 10.8 30 June 29, 2024 10:55am June 29, 2024 2:23pm Levemir FlexPen 100 UNIT/ML 36 units Subcutaneous nightly for 90 days Active melatonin 10 mg oral capsule (10 sources) Start: 02-15-2024 End: 07-27-2024 take 1 capsule by mouth once daily at bedtime as needed Melatonin 10 mg capsule Discontinued 10 MG PO Daily at bedtime as needed February 15, 2024 12:00am July 27, 2024 4:07pm methylPREDNISolone 4 mg oral tablet (8 sources) Corticosteroid Start: 12-11-2023 End: 02-15-2024 take 1 tablet by mouth once Methylprednisolone (Medrol (Maximino)) 4 mg tablets,dose pack Discontinued 0 PO per package directions December 11, 2023 1:00am February 15, 2024 10:58am PO PER PKG DIR for 6 days metroNIDAZOLE 500 mg oral tablet (2 sources) Nitroimidazole Antimicrobial Start: 10-01-2022 take 4 tablets by mouth once at mealtime metroNIDAZOLE 500 MG 4 tablets Orally once for 1 days Take all 4 tablets by mouth with food on Sep, Not-Taking/PRN Start: 10-01-2022 take 4 tablets by mo uth once at mealtime metroNIDAZOLE 500 MG 4 tablets Orally once for 1 days Take all 4 tablets by mouth with food on Sep, Active naproxen 500 mg oral tablet (3 sources) Nonsteroidal Anti-inflammatory Drug Start: 08-04-2024 End: 01-05-2025 take 1 tablet by mouth twice daily at mealtime Naproxen 500 mg Tablet Discontinued 500 MG PO Twice daily with meals 60 August 04, 2024 12:00am January 05, 2025 6:21pm prazosin 2 mg oral capsule (17 sources) alpha-Adrenergic Ankush Start: 01-05-2025 End: 01-05-2025 take 1 capsule by mouth at bedtime Prazosin 2 mg capsule Discontinued 2 MG PO Bedtime January 05, 2025 12:00am January 05, 2025 6:39pm Start: 03-03-2024 End: 07-27-2024 take 2 mg by mouth once daily at bedtime Prazosin Discontinued 2 MG PO Daily at bedtime March 03, 2024 1:11pm July 27, 2024 4:07pm Start: 02-15-2024 End: 07-27-2024 take 1 capsule by mouth once daily at bedtime Prazosin 1 mg capsule Discontinued 2 MG PO Daily at bedtime March 03, 2024 1:11pm July 27, 2024 4:07pm tiZANidine 4 mg oral tablet (20 sources) Central alpha-2 Adrenergic Agonist Start: 08-04-2024 End: 01-05-2025 take 6 mg by mouth twice daily as needed Tizanidine 4 mg Tablet Discontinued 6 MG PO Twice daily as needed for muscle spasticity August 04, 2024 12:00am January 05, 2025 6:21pm Start: 08-04-2024 take 6 mg by mouth twice daily Tizanidine Active 6 MG PO Twice daily August 04, 2024 12:00am Start: 08-01-2024 End: 08-03-2024 take 4 mg by mouth once daily at bedtime as needed Tizanidine 6 mg capsule Discontinued 4 MG PO Daily at bedtime as needed for muscle spasticity August 01, 2024 12:00am August 03, 2024 9:47am Start: 08-01-2024 End: 08-03-2024 take 4 mg by mouth once daily at bedtime Tizanidine Discontinued 4 MG PO Daily at bedtime August 01, 2024 12:00am August 03, 2024 9:47am Start: 07-27-2024 End: 08-01-2024 take 1 capsule by mouth once daily at bedtime as needed Tizanidine 6 mg capsule Discontinued 6 MG PO Daily at bedtime as needed for muscle spasticity 90 90 July 29, 2024 12:19pm August 01, 2024 11:58am Start: 06-29-2024 End: 07-27-2024 take 2 capsules by mouth once daily at bedtime Tizanidine 2 mg capsule Discontinued 4 MG PO Daily at bedtime as needed for muscle spasticity 60 June 29, 2024 12:00am July 27, 2024 4:15pm take 1-2 at bedtime Start: 06-29-2024 End: 07-27-2024 take 4 mg by mouth once daily at bedtime Tizanidine Discontinued 4 MG PO Daily at bedtime 60 June 29, 2024 12:00am July 27, 2024 4:15pm take 1-2 at bedtime valACYclovir 1000 mg oral tablet (2 sources) Herpesvirus Nucleoside Analog DNA Polymerase Inhibitor, Herpes Simplex Virus Nucleoside Analog DNA Polymerase Inhibitor, Herpes Zoster Virus Nucleoside Analog DNA Polymerase Inhibitor Start: 09-29-2022 take 1 tablet by mouth every twelve hours valACYclovir HCl 1 GM 1 tablet Orally 2 times a day for 10 day(s) Sep, Not-Taking/PRN Start: 09-29-2022 take 1 tablet by usha th every twelve hours valACYclovir HCl 1 GM 1 tablet Orally 2 times a day for 10 day(s) Sep, Active Problems Active Problems Problem Classification Problem Date Documented Date Episodic/Chronic Adjustment disorders (11 sources) Adjustment disorder with anxious mood; 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: [Adjustment disorder with anxiety] 02-16-2024 Chronic Alcohol-related disorders (3 sources) Alcohol abuse, in remission; 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: [Alcohol dependence, in remission] Onset: 01-28-2023 Chronic Anxiety disorders (6 sources) Posttraumatic stress disorder; 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: [Anxiety] Onset: 02-14-2020 Chronic Attention-deficit conduct and disruptive behavior disorders (10 sources) Attention deficit hyperactivity disorder; 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: [Attention-deficit hyperactivity disorder, unspecified type] Onset: 07-31-2020 07-31-2020 Chronic Attention-deficit, conduct, and disruptive behavior disorders (8 sources) Attention-deficit hyperactivity disorder, unspecified type; 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: [Attention deficit disorder with hyperactivity] Onset: 04-05-2024 Chronic Cardiac dysrhythmias (1 source) Tachycardia, unspecified; 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: [TACHYCARDIA UNSPECIFIED] Onset: 01-28-2023 Episodic Chronic obstructive pulmonary disease and bronchiectasis (10 sources) Bronchitis; 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: [Bronchitis, not specified as acute or chronic] 12-11-2023 Episodic Contraceptive and procreative management (1 source) Contraception status; 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: [Encounter for other general counseling and advice on contraception] Onset: 04-25-2024 Episodic Deficiency and other anemia (1 source) Iron deficiency anemia, unspecified; 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: [IRON DEFICIENCY ANEMIA UNSPECIFIED] Onset: 01-28-2023 Episodic Diabetes mellitus with complications (6 sources) Type 2 diabetes mellitus with hyperglycemia; 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: [Other specified diabetes mellitus with hyperglycemia] Onset: 01-28-2023 Chronic Diabetes mellitus without complication (20 sources) Diabetes mellitus; 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: [Type 2 diabetes mellitus without complications] Onset: 07-31-2020 08-02-2020 Chronic Disorders of lipid metabolism (20 sources) Hypertriglyceridemia ; 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: [Pure hyperglyceridemia] Onset: 07-31-2020 07-31-2020 Chronic Genitourinary symptoms and ill-defined conditions (3 sources) Increased frequency of urination; 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: [Frequency of micturition] Onset: 04-25-2024 Episodic Headache; including migraine (2 sources) Migraine; 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: [Other migraine, not intractable, without status migrainosus] Onset: 02-17-2025 02-17-2025 Chronic Miscellaneous mental health disorders (4 sources) Nightmare disorder; 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] Onset: 04-05-2024 Chronic Mood disorders (20 sources) Bipolar disorder; 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: [Unspecified mood [affective] disorder] Onset: 02-14-2020 02-27-2020 Chronic Mood disorders (1 source) Mood disorders; 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: [Depression, unspecified] Onset: 08-01-2024 Osteoarthritis (2 sources) Arthritis 04-25-2024 Chronic Other aftercare (1 source) Long-term current use of insulin; 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: [FDC (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] Episodic Other aftercare (4 sources) FDC (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; 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: [FDC (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] Onset: 04-05-2024 Episodic Other nervous system disorders (1 source) Chronic pain; 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: [Other chronic pain] Chronic Other nervous system disorders (4 sources) Other chronic pain; 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: [Other chronic pain] Onset: 04-05-2024 Chronic Other nervous system disorders (7 sources) Neuropathy; 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: [Polyneuropathy, unspecified] 02-16-2024 Chronic Other nervous system disorders (8 sources) Polyneuropathy, unspecified; 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: [Mononeuritis of unspecified site] 02-15-2024 Chronic Other nervous system disorders (4 sources) Toxic metabolic encephalopathy; 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: [Toxic metabolic encephalopathy] Onset: 07-31-2020 08-02-2020 Episodic Other non-traumatic joint disorders (3 sources) Knee pain; 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: [Arthralgia - Knee / Patella / Tibia / Fibula] Onset: 02-14-2020 Episodic Other non-traumatic joint disorders (12 sources) Pain in left knee; 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: [Chronic pain of left knee] Onset: 04-05-2024 Episodic Other non-traumatic joint disorders (2 sources) Pain in left knee; 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: [Left knee pain, unspecified chronicity] Other nutritional; endocrine; and metabolic disorders (3 sources) Morbid obesity; 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: [Obesity Morbid] Onset: 02-14-2020 Chronic Other screening for suspected conditions (not mental disorders or infectious disease) (3 sources) Encounter for screening for diabetes mellitus; 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: [Diabetes Risk Test Score] Onset: 02-14-2020 Episodic Pancreatic disorders (not diabetes) (3 sources) Acute pancreatitis without necrosis or infection, unspecified; 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: [ACUTE PANCREATITIS WO NECRS/INF UNS] Onset: 01-22-2023 Episodic Personality disorders (1 source) Borderline personality disorder; 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: [Borderline personality disorder] Onset: 08-03-2020 08-03-2020 Chronic Poisoning by other medications and drugs (4 sources) Intentional drug overdose; 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: [Suicide attempt by multiple drug overdose] Onset: 07-30-2020 07-30-2020 Episodic Residual codes; unclassified (1 source) High risk heterosexual behavior Episodic Residual codes; unclassified (12 sources) Noncompliance with treatment; 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: [Noncompliance] 07-03-2024 Episodic Skin and subcutaneous tissue infections (8 sources) Cellulitis of neck; 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: [Cellulitis of neck] 03-03-2024 Episodic Substance-related disorders (7 sources) Nicotine dependence; 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: [Cannabis abuse, uncomplicated] Onset: 02-14-2020 04-25-2024 Chronic Comment on above: Added secondary to d ocumentation in Social History. Substance-related disorders (2 sources) Cannabis use, unspecified, uncomplicated; 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: [Cannabis use, unspecified, uncomplicated] Onset: 04-05-2024 Episodic Unclassified (1 source) CONTACT W/AND (SUSP) EXPOS COVID-19; 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: [CONTACT W/AND (SUSP) EXPOS COVID-19] Onset: 01-28-2023 Unclassified (1 source) Patient's noncompliance with other medical treatment and regimen due to unspecified reason; 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: [Patient's noncompliance with other medical treatment and regimen due to unspecified reason] Onset: 01-05-2025 Viral infection (13 sources) Genital herpes simplex; 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: [Herpesviral infection of urogenital system, unspecified] Chronic Past or Other Problems Problem Classification Problem Date Documented Da te Episodic/Chronic Headache; including migraine (1 source) Headache; including migraine Spondylosis; intervertebral disc disorders; other back problems (17 sources) Chronic back pain ; 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: [Dorsalgia, unspecified] Onset: 08-01-2024 02-16-2024 Episodic Suicide and intentional self-inflicted injury (1 source) Suicidal ideations; 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: [Suicidal ideations] Onset: 08-01-2024 Episodic Unclassified (3 sources) Finding of body mass index; 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: [Body Mass Index] Onset: 02-14-2020 Results Test Name Value Interpretation Reference Range Facility Glucose Glucometer (dC) [M ass/Vol]Ordered By: Blue Talbot on 01-09-2025 Glucose [Mass/Vol] Capillary blood glucose measurement by glucometer (mass/volume) [facility] Comment on above: Random Glucose Refer ence Range is dependent on time and content of last meal. Glucose of more than 200 mg/dL in a nonstressed, ambulatory subject supports the diagnosis of Diabetes Mellitus. Glucose Poct Glucometerson 0 01-09-2025 Glucose [Mass/Vol] 142 mg/dL Normal [facility] Comment on above: Result Comment: [place] Glucose Reference Range is dependent on time and content of last meal. Glucose of more than 200 mg/dL in a nonstressed, ambulatory subject supports the diagnosis of Diabetes Mellitus. PERFORMED BY: [facility] [address] [id number] PATHOLOGIST [employer] CORINNE RITTER M.D. Performed By: #### G LULS #### Point of Care testing , Glucose [Mass/Vol] 164 mg/dL Normal [facility] Comment on above: Result Comment: [place] Glucose Reference Range is dependent on time and content of last meal. Glucose of more than 200 mg/dL in a nonstressed, ambulatory subject supports the diagnosis of Diabetes Mellitus. PERFORMED BY: [place] [address] PATHOLOGIST [employer] CORINNE RITTER M.D. Performed By: #### C MP, CBC, ETOH #### [address] Glucose Poct Glucometerson 0 01-08-2025 Glucose [Mass/Vol] 250 mg/dL Normal [facility] Comment on above: Result Comment: [place] Glucose Reference Range is dependent on time and content of last meal. Glucose of more than 200 mg/dL in a nonstressed, ambulatory subject supports the diagnosis of Diabetes Mellitus. PERFORMED BY: [place] [address] PATHOLOGIST [employer] CORINNE RITTER M.D. Performed By: #### C MP, CBC, ETOH #### [place] [address] [place] Glucose [Mass/Vol] 219 mg/dL Normal [facility] Comment on above: Result Comment: [place] om Glucose Reference Range is dependent on time and content of last meal. Glucose of more than 200 mg/dL in a nonstressed, ambulatory subject supports the diagnosis of Diabetes Mellitus. PERFORMED BY: [place] [address] PATHOLOGIST [employer] CORINNE RITTER M.D. Performed By: #### C MP, CBC, ETOH #### [place] [id number] [place] Glucose [Mass/Vol] 155 mg/dL Normal [facility] Comment on above: Result Comment: [place] Glucose Reference Range is dependent on time and content of last meal. Glucose of more than 200 mg/dL in a nonstressed, ambulatory subject supports the diagnosis of Diabetes Mellitus. PERFORMED BY: [place] [address] PATHOLOGIST [employer] CORINNE RITTER M.D. Performed By: #### G LULS #### Point of Care testing , Commemt1 Glu2: Cleaned Meter Normal [facility] Comment on above: Result Comment: PERF ORMED BY: [place] [address] PATHOLOGIST [employer] CORINNE RITTER M.D. Performed By: #### C MP, CBC, ETOH #### [address] Glucose [Mass/Vol] 177 mg/dL Normal [facility] Comment on above: Result Comment: [facility] Glucose Reference Range is dependent on time and content of last meal. Glucose of more than 200 mg/dL in a nonstressed, ambulatory subject supports the diagnosis of Diabetes Mellitus. Performed By: #### C MP, CBC, ETOH #### [facility] [address] [place] [address] No Panel InformationOrdered By: Blue Talbot on 01-08-2025 Bedside Glucose Comment Glu2: cleaned meter [facility] Glucose Poct Glucometerson 0 01-07-2025 Glucose [Mass/Vol] 221 mg/dL Normal [facility] Comment on above: Result Comment: [facility] Glucose Reference Range is dependent on time and content of last meal. Glucose of more than 200 mg/dL in a nonstressed, ambulatory subject supports the diagnosis of Diabetes Mellitus. PERFORMED BY: [place] [address] PATHOLOGIST [employer] CORINNE RITTER M.D. Performed By: #### G LULS #### Point of Care testing , Glucose [Mass/Vol] 184 mg/dL Normal [facility] Comment on above: Result Comment: [facility] Glucose Reference Range is dependent on time and content of last meal. Glucose of more than 200 mg/dL in a nonstressed, ambulatory subject supports the diagnosis of Diabetes Mellitus. PERFORMED BY: [place] [address] PATHOLOGIST [employer] CORINNE RITTER M.D. Performed By: #### C MP, CBC, ETOH #### [address] Glucose [Mass/Vol] 216 mg/dL Normal [facility] Comment on above: Result Comment: [place] om Glucose Reference Range is dependent on time and content of last meal. Glucose of more than 200 mg/dL in a nonstressed, ambulatory subject supports the diagnosis of Diabetes Mellitus. PERFORMED BY: [place] [address] PATHOLOGIST [employer] CORINNE RITTER M.D. Performed By: #### C MP, CBC, ETOH #### [address] Glucose [Mass/Vol] 143 mg/dL Normal [facility] Comment on above: Result Comment: [place] om Glucose Reference Range is dependent on time and content of last meal. Glucose of more than 200 mg/dL in a nonstressed, ambulatory subject supports the diagnosis of Diabetes Mellitus. PERFORMED BY: [place] [address] PATHOLOGIST [employer] CORINNE RITTER M.D. Performed By: #### G LULS #### Point of Care testing , A1C with Estimated Average [facility] 01-06-2025 Glucose [Mass/Vol] 212 mg/dL Normal [facility] Comment on above: Result Comment: PERF ORMED BY: [place] [address] PATHOLOGIST [employer] CORINNE RITTER M.D. Performed By: #### G LULS #### Point of Care testing , HbA1c (Bld) [Mass fraction] 9.0 % High 4.3-5.6 [facility] Comment on above: Result Comment: Incr eased risk for diabetes: 5.7 - 6.4 diabetes: >6.4 glycemic control for adults with diabetes: <7.0 Performed By: #### G JORDIN #### Point of Care testing , Blood estimated average gluc ose determination by estimation from glycated hemoglobinOrdered By: Blue Talbot on 01-06-2025 Average glucose Estimated from glycated hemoglobin (Bld) [Mass/Vol] Glucose mean value [Mass/volume] in Blood Estimated from glycated hemoglobin [facility] Cholesterol [Mass/volume] in Serum or PlasmaOrdered By: Blue Talbot on 01-06-2025 Cholesterol [Mass/Vol] Cholesterol [Mass/volume] in Serum or Plasma 140-200 [facility] Comment on above: Chol less than 200 m g/dl low riskChol 201-239 mg/dl borderline riskChol 240 mg/dl and greater high risk Cholesterol in HDL [Mass/vol ume] in Serum or PlasmaOrdered By: Blue Talbot on 01-06-2025 Cholesterol in HDL [Mass/Vol] Serum or plasma high density lipoprotein (HDL) cholesterol measurement Low 23-92 [facility] Comment on above: HDL CHOL ATP-III CLA SSIFICATION Cardiovascular RiskHDL > or equal to 60 mg/dL LOWHDL < 40 mg/dL HIGH Cholesterol in LDL Calc [Mas s/Vol]Ordered By: Blue Talbot on 01-06-2025 Cholesterol in LDL [Mass/Vol] Cholesterol in LDL [Mass/volume] in Serum or Plasma by calculation 0-100 [facility] Comment on above: LDL ATP III CLASSIFI CATIONLDL less than 100 mg/dL OptimalLDL 100-129 mg/dL Near or above optimalLDL 130-159 mg/dL Borderline highLDL 160-189 mg/dL HighLDL greater than 189 mg/dL Very high Cholesterol in LDL [Mass/vol ume] in Serum or PlasmaOrdered By: Blue Talbot on 01-06-2025 Cholesterol in LDL [Mass/Vol] Cholesterol in LDL [Mass/volume] in Serum or Plasma 0-100 [facility] Comment on above: LDL ATP III CLASSIFI CATIONLDL less than 100 mg/dL OptimalLDL 100-129 mg/dL Near or above optimalLDL 130-159 mg/dL Borderline highLDL 160-189 mg/dL HighLDL greater than 189 mg/dL Very high Cholesterol in VLDL Calc [Ma ss/Vol]Ordered By: Blue Talbot on 01-06-2025 Cholesterol in VLDL [Mass/Vol] Cholesterol in VLDL [Mass/volume] in Serum or Plasma by calculation [facility] Comment on above: Test not performed ECG 12 lead ECGon 01-06-2025 ECG 12 lead ECG [facility] [address] [place] [address] [place] [address] Electrocardiograph Report Signed Patient: Tracie Lott MR#: [id number] : 2000 Acct:[id number] Age/Sex: 24 / M ADM Date: 01/05/25 Loc: Room: [address] [place] [address] Type: ADM IN Attending Dr: Blue Talbot MD Ordering Provider: Blue Talbot MD Date of Service: 01/06/25 ECG/ECG 12 lead ECG: baseline Copies to: Test Reason : Blood Pressure : */* mmHG Vent. Rate : 61 BPM Atrial Rate : 61 BPM P-R Int : 148 ms QRS Dur : 108 ms QT Int : 360 ms P-R-T Axes : 45 71 43 degrees QTcB Int : 362 ms Normal sinus rhythm with sinus arrhythmia Normal ECG When compared with ECG of 01-Aug-2024 13:07, No significant change was found Confirmed by MÓNICA RACHEL MD ([id number]) on 01/08/2025 4:33:11 PM Referred By: Electronically Signed By: MÓNICA RACHEL MD Transcribed By: MUS Signed By Mónica Rachel MD 0 01/08/25 1633 Normal [facility] Free T4 (Free Thyroxine)on 0 01-06-2025 Free T4 [Mass/Vol] 0.78 ng/dL Normal 0.61-1.12 [facility] Comment on above: Performed By: #### C MP, CBC, ETOH #### [facility] [address] Glucose Poct Glucometerson 0 01-06-2025 Glucose [Mass/Vol] 195 mg/dL Normal [facility] Comment on above: Result Comment: [place] Glucose Reference Range is dependent on time and content of last meal. Glucose of more than 200 mg/dL in a nonstressed, ambulatory subject supports the diagnosis of Diabetes Mellitus. PERFORMED BY: [place] [address] PATHOLOGIST [employer] CORINNE RITTER M.D. Performed By: #### C MP, CBC, ETOH #### [address] Glucose [Mass/Vol] 161 mg/dL Normal [facility] [facility] Comment on above: Result Comment: [facility] Glucose Reference Range is dependent on time and content of last meal. Glucose of more than 200 mg/dL in a nonstressed, ambulatory subject supports the diagnosis of Diabetes Mellitus. PERFORMED BY: [place] [address] PATHOLOGIST [employer] CORINNE RITTER M.D. Performed By: #### G LULS #### Point of Care testing , Glucose [Mass/Vol] 208 mg/dL Normal [facility] Comment on above: Result Comment: [place] Glucose Reference Range is dependent on time and content of last meal. Glucose of more than 200 mg/dL in a nonstressed, ambulatory subject supports the diagnosis of Diabetes Mellitus. PERFORMED BY: [place] [address] PATHOLOGIST [employer] CORINNE RITTER M.D. Performed By: #### C MP, CBC, ETOH #### [facility] [address] [place] [address] [place] Commemt1 Glu2: Cleaned Meter Normal [facility] Comment on above: Result Comment: PERF ORMED BY: [place] [address] PATHOLOGIST [employer] CORINNE RITTER M.D. Performed By: #### G LULS #### Point of Care testing , Glucose [Mass/Vol] 173 mg/dL Normal [facility] Comment on above: Result Comment: [place] Glucose Reference Range is dependent on time and content of last meal. Glucose of more than 200 mg/dL in a nonstressed, ambulatory subject supports the diagnosis of Diabetes Mellitus. Performed By: #### G JORDIN #### Point of Care testing , Hemoglobin A1c/Hemoglobin.to porfirio in BloodOrdered By: Blue Talbot on 01-06-2025 HbA1c (Bld) [Mass fraction] Hemoglobin A1c percentage High 4.3-5.6 [facility] Comment on above: Increased risk for d iabetes: 5.7 - 6.4diabetes: >6.4glycemic control for adults with diabetes: <7.0 LDL Cholesterol Measuredon 0 01-06-2025 LDL Cholesterol Measured 82 mg/dL Normal 0-100 [facility] Comment on above: Result Comment: LDL ATP III CLASSIFICATION LDL less than 100 mg/dL Optimal LDL 100-129 mg/dL Near or above optimal LDL 130-159 mg/dL Borderline high LDL 160-189 mg/dL High LDL greater than 189 mg/dL Very high Performed By: #### C MP, CBC, ETOH #### [facility] [address] Lipid Panelon 01-06-2025 Cholesterol [Mass/Vol] 169 mg/dL Normal 140-200 [facility] Comment on above: Result Comment: Chol less than 200 mg/dl low risk Chol 201-239 mg/dl borderline risk Chol 240 mg/dl and greater high risk Performed By: #### C MP, CBC, ETOH #### [facility] [address] [place] [address] [place] Cholesterol in HDL [Mass/Vol] 20 mg/dL Low 23-92 [facility] Comment on above: Result Comment: HDL CHOL ATP-III CLASSIFICATION Cardiovascular Risk HDL > or equal to 60 mg/dL LOW HDL < 40 mg/dL HIGH Performed By: #### C MP, CBC, ETOH #### [facility] [address] [place] [address] [facility] Cholesterol.total/Marge sterol in HDL [Mass ratio] 8.5 {ratio} Normal <5.0 [facility] Comment on above: Performed By: #### C MP, CBC, ETOH #### [facility] [address] LDL Cholesterol,Calculated <10 Normal 0-100 [facility] Comment on above: Result Comment: LDL ATP III CLASSIFICATION LDL less than 100 mg/dL Optimal LDL 100-129 mg/dL Near or above optimal LDL 130-159 mg/dL Borderline high LDL 160-189 mg/dL High LDL greater than 189 mg/dL Very high Performed By: #### C MP, CBC, ETOH #### [facility] [address] Triglyceride w/Reflex 734 mg/dL High 0-149 [facility] Comment on above: Result Comment: TRIG ATP III CLASSIFICATION TRIG less than 150 mg/dL Normal TRIG 150-199 mg/dL Borderline high TRIG 200-500 mg/dL High TRIG greater than 500 mg/dL Very high Standard traceable to the Center for Disease Conrtrol and Prevention (CDC) test method. If the triglyceride result is greater than 400, LDLC and related calculations cannot be calculated and resulted. Performed By: #### C MP, CBC, ETOH #### [facility] [address] VLDL CHOLESTEROL Not performed Normal [facility] Comment on above: Performed By: #### C MP, CBC, ETOH #### [facility] [address] Serum or plasma total choles terol/high density lipoprotein (HDL) cholesterol mass ratOrdered By: Blue Talbot on 01-06-2025 Cholesterol.total/Marge sterol in HDL [Mass ratio] Serum or plasma total cholesterol/high density lipoprotein (HDL) cholesterol mass rat <5.0 [facility] Thyroid Stim Hormone w/Rflxo n 01-06-2025 Thyroid Stim Hormone w/Rflx 6.81 u[iU]/mL High 0.45-5.33 [facility] Comment on above: Performed By: #### C MP, CBC, ETOH #### [facility] [address] Thyrotropin [Units/volume] i n Serum or PlasmaOrdered By: Blue Talbot on 01-06-2025 TSH Qn Thyrotropin [Units/volume] in Serum or Plasma High 0.45-5.33 [facility] Thyroxine (T4) free [Mass/vo lume] in Serum or PlasmaOrdered By: Blue Talbot on 01-06-2025 Free T4 [Mass/Vol] Thyroxine (T4) free [Mass/volume] in Serum or Plasma 0.61-1.12 [facility] Triglyceride [Mass/volume] i n Serum or PlasmaOrdered By: Blue Talbot on 01-06-2025 Triglyceride [Mass/Vol] Triglyceride [Mass/volume] in Serum or Plasma High 0-149 [facility] Comment on above: If the triglyceride result is greater than 400, LDLC and related calculations cannot be calculated and resulted.TRIG ATP III CLASSIFICATIONTRIG less than 150 mg/dL NormalTRIG 150-199 mg/dL Borderline highTRIG 200-500 mg/dL High TRIG greater than 500 mg/dL Very highStandard traceable to the Center for Disease Conrtrol and Prevention (CDC) test method. Vitamin D 25 Hydroxy Totalon 01-06-2025 Vitamin D 25 Hydroxy Total 17.3 ng/mL Low 30-100 [facility] Comment on above: Result Comment: YU MIN D STATUS 25(OH)VITAMIN D RANGE (ng/mL) Deficient <20 Insufficient 20 to <30 Sufficient 30 to 100 Reference: Ashley MF,Jodee NC, Christina GUEVARA, et al. Evaluation,treatment, and prevention of vitamin D deficiency; an Endocrine Society clinical practice guideline. JCEM. 2010; 96(7):1911-30. PERFORMED BY: [facility] [address] [place] [address] PATHOLOGIST [employer] CORINNE RITTER M.D. Performed By: #### C MP, CBC, ETOH #### [address] Vitamin D+Metabolites [Mass/ volume] in Serum or PlasmaOrdered By: Blue Talbot on 01-06-2025 Vitamin D+Metabolites [Mass/Vol] Vitamin D+Metabolites [Mass/volume] in Serum or Plasma Low 30-100 [facility] Comment on above: VITAMIN D STATUS 25( OH)VITAMIN D RANGE (ng/mL) Deficient <20 Insufficient 20 to <30Sufficient 30 to 100Reference: Ashley CATALAN,Jodee BOB, Christina GUEVARA, et al. Evaluation,treatment, and prevention of vitamin D deficiency; an Endocrine Society clinical practice guideline. JCEM. 2010; 96(7):1911-30. Alanine aminotransferase [En zymatic activity/volume] in Serum or PlasmaOrdered By: Guillermina Shetty on 01-05-2025 ALT [Catalytic activity/Vol] Alanine aminotransferase [Enzymatic activity/volume] in Serum or Plasma 7-52 [facility] Albumin [Mass/volume] in Ser um or Plasma by Bromocresol green (BCG) dye binding methoOrdered By: Guillermina Shetty on 01-05-2025 Albumin BCG dye [Mass/Vol] Albumin [Mass/volume] in Serum or Plasma by Bromocresol green (BCG) dye binding metho 3.5-5.7 [facility] Alkaline phosphatase [Enzyma tic activity/volume] in Serum or PlasmaOrdered By: Guillermina Shetty on 01-05-2025 ALP [Catalytic activity/Vol] Alkaline phosphatase [Enzymatic activity/volume] in Serum or Plasma 34-104 [facility] Amphetamine Screen Ql (U)Ord ered By: Guillermina Shetty on 01-05-2025 Amphetamines Ql (U) Amphetamines screen Negativ e [facility] Appearance of UrineOrdered B y: Guillermina Shetty on 01-05-2025 Appearance (U) Urine appearance Clear [facility] Aspartate aminotransferase [ Enzymatic activity/volume] in Serum or PlasmaOrdered By: Guillermina Shetty on 01-05-2025 AST [Catalytic activity/Vol] Aspartate aminotransferase [Enzymatic activity/volume] in Serum or Plasma 13-39 [facility] Bacteria [Presence] in Urine by AutomatedOrdered By: Guillermina Shetty on 01-05-2025 Bacteria Auto Ql (U) Bacteria [Presence] in Urine by Automated None Seen [facility] Barbiturates [Presence] in U rine by Screen methodOrdered By: Guillermina Shetty on 01-05-2025 Barbiturates Screen Ql (U) Barbiturates [Presence] in Urine by Screen method Negative [facility] Basophils Auto (Bld) [#/Vol] Ordered By: Guillermina Shetty on 01-05-2025 Basophils (Bld) [#/Vol] Automated basoph il count 0.0-0.2 [facility] Basophils/100 WBC Auto (Bld) Ordered By: Guillermina Shetty on 01-05-2025 Basophils/100 WBC (Bld) Automated basophil % . [facility] Benzodiazepines Screen Ql (U )Ordered By: Guillermina Shetty on 01-05-2025 Benzodiazepines Ql (U) Benzodiazepines [Presence] in Urine by Screen method Negative [facility] Benzoylecgonine [Presence] i n Urine by Screen methodOrdered By: Guillermina Shetty on 01-05-2025 Benzoylecgonine Screen Ql (U) Benzoylecgonine [Presence] in Urine by Screen method Negative [facility] Bilirubin Test strip Ql (U)O rdered By: Guillermina Shetty on 01-05-2025 Bilirubin Ql (U) Bilirubin.total [Presence] in Urine by Test strip Negative [facility] Bilirubin.total [Mass/volume ] in Serum or PlasmaOrdered By: Guillermina Shetty on 01-05-2025 Bilirubin [Mass/Vol] Bilirubin.total [Mass/volume] in Serum or Plasma High 0.3-1.0 [facility] Comment on above: Samples from patient s who have taken Naproxen have shown spurious elevation in Total Bilirubin levels. A metabolite of Naproxen, O-desmethylnaproxen, has been shown to interfere with the Jenaleik-Kayleen method for measuring Total Bilirubin. Calcium [Mass/volume] in Ser um or PlasmaOrdered By: Guillermina Shetty on 01-05-2025 Calcium [Mass/Vol] Calcium [Mass/volume ] in Serum or Plasma 8.6-10.3 [facility] Cannabinoids [Presence] in U rine by Screen methodOrdered By: Guillermina Shetty on 01-05-2025 Cannabinoids Screen Ql (U) Cannabinoids [Presence] in Urine by Screen method High Negative [facility] Comment on above: These are unconfirme d results and should not be used for legal purposes. Drug Cut-Off Concentration: AMPH 1000 ng/mL KATHLEEN 200 ng/mL CARMEN 200 ng/mL COCM 300 ng/mL OP 300 ng/mL PCP 25 ng/mL THC 20 ng/mL Carbon dioxide, total [Moles /volume] in Serum or PlasmaOrdered By: Guillermina Shetty on 01-05-2025 CO2 [Moles/Vol] Carbon dioxide, tota l [Moles/volume] in Serum or Plasma 21.0-31.0 [facility] Chloride [Moles/volume] in S emerson or PlasmaOrdered By: Guillermina Shetty on 01-05-2025 Chloride [Moles/Vol] Chloride [Moles/volume] in Serum or Plasma 98-107 [facility] Color Auto (U)Ordered By: Rina Shetty on 01-05-2025 Color (U) Color of Urine by Auto Yellow [facility] Comprehensive Metabolic Pane zoraida 01-05-2025 Albumin [Mass/Vol] 4.8 g/dL Normal 3.5-5.7 [facility] Comment on above: Performed By: #### C MP, CBC, ETOH #### [facility] [address] [place] [address] [place] Albumin/Globulin [Mass ratio] 2.0 {ratio} Normal [facility] Comment on above: Performed By: #### C MP, CBC, ETOH #### [facility] [address] [place] [id number] [place] ALP [Catalytic activity/Vol] 34 U/L Normal 34-104 [facility] Comment on above: Performed By: #### C MP, CBC, ETOH #### [facility] [address] [place] [id number] [place] ALT [Catalytic activity/Vol] 13 U/L Normal 7-52 [facility] Comment on above: Performed By: #### C MP, CBC, ETOH #### [facility] [address] [place] [id number] [facility] Anion gap [Moles/Vol] 10.8 mmol/L Normal 6.0-15.0 [facility] Comment on above: Performed By: #### C MP, CBC, ETOH #### [facility] [address] AST [Catalytic activity/Vol] 17 U/L Normal 13-39 [facility] Comment on above: Performed By: #### C MP, CBC, ETOH #### [address] Bilirubin [Mass/Vol] 1.3 mg/dL High 0.3-1.0 [facility] Comment on above: Result Comment: Samp les from patients who have taken Naproxen have shown spurious elevation in Total Bilirubin levels. A metabolite of Naproxen, O-desmethylnaproxen, has been shown to interfere with the Jencrissy-Kallief method for measuring Total Bilirubin. Performed By: #### C MP, CBC, ETOH #### [address] Calcium [Mass/Vol] 9.5 mg/dL Normal 8.6-10.3 [facility] Comment on above: Performed By: #### C MP, CBC, ETOH #### [place] [address] [place] Chloride [Moles/Vol] 103 mmol/L Normal 98-107 [facility] Comment on above: Performed By: #### C MP, CBC, ETOH #### [address] CO2 [Moles/Vol] 29.4 mmol/L Normal 21.0-31.0 [facility] Comment on above: Performed By: #### C MP, CBC, ETOH #### [place] [address] [place] Creatinine [Mass/Vol] 1.05 mg/dL Normal 0.70-1.30 [facility] Comment on above: Performed By: #### C MP, CBC, ETOH #### [place] [address] [place] Creatinine Clr Calc Pharmacy 130.37 Normal [facility] Comment on above: Result Comment: PERF ORMED BY: [place] [address] PATHOLOGIST [employer] CORINNE RITTER M.D. Performed By: #### C MP, CBC, ETOH #### [place] [address] [place] GFR/1.73 sq M.predicted MDRD (S/P/Bld) [Vol rate/Area] mL/min/{1.73_m2} Normal [facility] Comment on above: Performed By: #### C MP, CBC, ETOH #### [place] [address] [place] Globulin (S) [Mass/Vol] 2.4 g/dL Normal T [facility] Comment on above: Performed By: #### C MP, CBC, ETOH #### [address] Glucose [Mass/Vol] 185 mg/dL High 70-100 [facility] Comment on above: Result Comment: [facility] Glucose Reference Range is dependent on time and content of last meal. Glucose of more than 200 mg/dL in a nonstressed, ambulatory subject supports the diagnosis of Diabetes Mellitus. ADA recommended reference range Performed By: #### C MP, CBC, ETOH #### [address] Potassium [Moles/Vol] 4.2 mmol/L Normal 3.5-5.1 [facility] Comment on above: Performed By: #### C MP, CBC, ETOH #### [place] [address] [place] Protein [Mass/Vol] 7.2 g/dL Normal 6.4-8.9 [facility] Comment on above: Performed By: #### C MP, CBC, ETOH #### [place] [address] [place] Sodium [Moles/Vol] 139 mmol/L Normal 136-145 [facility] Comment on above: Performed By: #### C MP, CBC, ETOH #### [place] [address] [place] Urea nitrogen [Mass/Vol] 16 mg/dL Normal 7-25 [facility] Comment on above: Performed By: #### C MP, CBC, ETOH #### [facility] [address] [place] [address] [place] Creatinine [Mass/volume] in Serum or PlasmaOrdered By: Guillermina Shetty on 01-05-2025 Creatinine [Mass/Vol] Creatinine [Mass/volume] in Serum or Plasma 0.70-1.30 [facility] Dipstick and Microscopicon 0 01-05-2025 Appearance (U) Clear Normal Clear [facility] Comment on above: Order Comment: Name Collection Type:: Clean-Voided Midstream Performed By: #### C MP, CBC, ETOH #### [facility] [address] [place] [address] [place] Bacteria,Urine None Seen Normal None Seen [facility] Comment on above: Order Comment: Name Collection Type:: Clean-Voided Midstream Performed By: #### C MP, CBC, ETOH #### [place] [address] [place] Bilirubin,Urine Negative Normal Negative [facility] Comment on above: Order Comment: Name Collection Type:: Clean-Voided Midstream Performed By: #### C MP, CBC, ETOH #### [place] [address] [place] Color (U) Yellow Normal Yellow [facility] Comment on above: Order Comment: Name Collection Type:: Clean-Voided Midstream Performed By: #### C MP, CBC, ETOH #### [facility] [address] [place] [address] [place] Glucose Ql (U) Normal Normal Normal [facility] Comment on above: Order Comment: Name Collection Type:: Clean-Voided Midstream Performed By: #### C MP, CBC, ETOH #### [facility] [address] [place] [address] [place] Hyaline Casts,Urine None Normal 0-8 [facility] Comment on above: Order Comment: Name Collection Type:: Clean-Voided Midstream Performed By: #### C MP, CBC, ETOH #### [facility] [address] [place] [address] [place] Ketones Ql (U) Negative Normal Negative [facility] Comment on above: Order Comment: Name Collection Type:: Clean-Voided Midstream Performed By: #### C MP, CBC, ETOH #### [address] Leukocyte esterase Test strip Ql (U) Negative Normal Negative [facility] Comment on above: Order Comment: Name Collection Type:: Clean-Voided Midstream Performed By: #### C MP, CBC, ETOH #### [address] Mucus,Urine 2+ Critically abnormal [facility] Comment on above: Order Comment: Name Collection Type:: Clean-Voided Midstream Result Comment: PERF ORMED BY: [place] [address] PATHOLOGIST [employer] CORINNE RITTER M.D. Performed By: #### C MP, CBC, ETOH #### [address] Nitrite,Urine Negative Normal Negative [facility] Comment on above: Order Comment: Name Collection Type:: Clean-Voided Midstream Performed By: #### C MP, CBC, ETOH #### [address] Occult Blood,Urine Negative Normal Negative [facility] Comment on above: Order Comment: Name Collection Type:: Clean-Voided Midstream Result Comment: PERF ORMED BY: [place] [address] PATHOLOGIST [employer] CORINNE RITTER M.D. Performed By: #### C MP, CBC, ETOH #### [place] [address] [place] pH (U) 6.0 [pH] Normal 5.0-9.0 [facility] Comment on above: Order Comment: Name Collection Type:: Clean-Voided Midstream Performed By: #### C MP, CBC, ETOH #### [place] [address] [place] Protein (U) [Mass/Vol] 20 mg/dL High Negative Th e [facility] Comment on above: Order Comment: Name Collection Type:: Clean-Voided Midstream Performed By: #### C MP, CBC, ETOH #### [address] RBC,Urine 1-2 Normal 0-4 [facility] Comment on above: Order Comment: Name Collection Type:: Clean-Voided Midstream Performed By: #### C MP, CBC, ETOH #### [address] Specificy [place],Urine 1.026 Normal 1.001-1.030 [facility] Comment on above: Order Comment: Name Collection Type:: Clean-Voided Midstream Performed By: #### C MP, CBC, ETOH #### [address] Squamous Epithelial Cell,Urine 1-2 Normal 0-2 [facility] Comment on above: Order Comment: Name Collection Type:: Clean-Voided Midstream Performed By: #### C MP, CBC, ETOH #### [address] Urobilinogen,Urine Normal Normal Normal [facility] Comment on above: Order Comment: Name Collection Type:: Clean-Voided Midstream Performed By: #### C MP, CBC, ETOH #### [place] [address] [place] WBC,Urine 1-2 Normal 0-4 [facility] Comment on above: Order Comment: Name Collection Type:: Clean-Voided Midstream Performed By: #### C MP, CBC, ETOH #### [place] [address] [place] Drug Screen,Urineon 01-06-20 25 Amphetamine Screen,Urine Negative Normal Negative [facility] Comment on above: Performed By: #### C MP, CBC, ETOH #### [address] Barbiturate Screen,Urine Negative Normal Negative [facility] Comment on above: Performed By: #### C MP, CBC, ETOH #### [address] Benzodiazepines Screen,Urine Negative Normal Negative [facility] Comment on above: Performed By: #### C MP, CBC, ETOH #### [address] Cannabinoid Screen,Urine Positive High Negative [facility] Comment on above: Result Comment: Thes e are unconfirmed results and should not be used for legal purposes. Drug Cut-Off Concentration: AMPH 1000 ng/mL KATHLEEN 200 ng/mL CARMEN 200 ng/mL COCM 300 ng/mL OP 300 ng/mL PCP 25 ng/mL THC 20 ng/mL PERFORMED BY: [place] [address] PATHOLOGIST [employer] CORINNE RITTER M.D. Performed By: #### C MP, CBC, ETOH #### [address] Cocaine Screen,Urine Negative Normal Negative [facility] Comment on above: Performed By: #### C MP, CBC, ETOH #### [address] Opiate Screen,Urine Negative Normal Negative [facility] Comment on above: Performed By: #### C MP, CBC, ETOH #### [address] Phencyclidine Screen,Urine Negative Normal Negative [facility] Comment on above: Performed By: #### C MP, CBC, ETOH #### [place] [address] [place] Eosinophils Auto (Bld) [#/Vo l]Ordered By: Guillermina Shetty on 01-05-2025 Eosinophils (Bld) [#/Vol] Automated eosinophil count 0.0-0.45 [facility] Eosinophils/100 WBC Auto (Bl d)Ordered By: Guillermina Shetty on 01-05-2025 Eosinophils/100 WBC (Bld) Automated eosinophil % . [facility] Epithelial cells.squamous [# /area] in Urine sediment by Automated countOrdered By: Guillermina Shetty on 01-05-2025 Epithelial cells.squamous Auto (Urine sed) [#/Area] Epithelial cells.squamous [#/area] in Urine sediment by Automated count 0-2 [facility] Erythrocyte distribution wid th Auto (RBC) [Ratio]Ordered By: Guillermina Shetty on 01-05-2025 Erythrocyte distribution width (RBC) [Ratio] Erythrocyte distribution width [Ratio] by Automated count 12.0-14.8 [facility] Erythrocyte morphology findi ng [Identifier] in BloodOrdered By: Guillermina Shetty on 01-05-2025 RBC morphology finding Nom (Bld) RBC morphology Normal [facility] Erythrocytes [#/area] in Uri ne sediment by Automated countOrdered By: Guillermina Shetty on 01-05-2025 RBC Auto (Urine sed) [#/Area] Erythrocytes [#/area] in Urine sediment by Automated count 0-4 [facility] Ethanol [Mass/volume] in Ser um or PlasmaOrdered By: Guillermina Shetty on 01-05-2025 Ethanol [Mass/Vol] Ethanol [Mass/volume ] in Serum or Plasma [facility] Comment on above: Test not performed Ethyl Alcohol Profileon 12-24 Ethanol [Mass/Vol] mg/dL Normal [facility] Comment on above: Performed By: #### C MP, CBC, ETOH #### [facility] [address] [place] [address] Percent Ethanol Not performed Normal [facility] Comment on above: Result Comment: PERF ORMED BY: [place] [address] PATHOLOGIST [employer] CORINNE RITETR M.D. Performed By: #### C MP, CBC, ETOH #### [facility] [address] [place] [address] [place] Globulin Calc (S) [Mass/Vol] Ordered By: Guillermina Shetty on 01-05-2025 Globulin (S) [Mass/Vol] Serum globulin measurement by calculation (mass/volume) [facility] Glucose Glucometer (BldC) [M ass/Vol]Ordered By: Guillermina Shetty on 01-05-2025 Glucose [Mass/Vol] Capillary blood glucose measurement by glucometer (mass/volume) [facility] Comment on above: Random Glucose Refer ence Range is dependent on time and content of last meal. Glucose of more than 200 mg/dL in a nonstressed, ambulatory subject supports the diagnosis of Diabetes Mellitus. Glucose Poct Glucometerson 0 01-05-2025 Commemt1 Glu2: Cleaned Meter Normal [facility] Comment on above: Result Comment: PERF ORMED BY: [place] [address] PATHOLOGIST [employer] CORINNE RITTER M.D. Performed By: #### G LULS #### Point of Care testing , Glucose [Mass/Vol] 185 mg/dL Normal [facility] Comment on above: Result Comment: [place] Glucose Reference Range is dependent on time and content of last meal. Glucose of more than 200 mg/dL in a nonstressed, ambulatory subject supports the diagnosis of Diabetes Mellitus. Performed By: #### G LULS #### Point of Care testing , Glucose [Mass/Vol] 143 mg/dL Normal [facility] Comment on above: Result Comment: [place] Glucose Reference Range is dependent on time and content of last meal. Glucose of more than 200 mg/dL in a nonstressed, ambulatory subject supports the diagnosis of Diabetes Mellitus. PERFORMED BY: [place] [address] PATHOLOGIST [employer] CORINNE RITTER M.D. Performed By: #### C MP, CBC, ETOH #### [facility] [address] [place] [address] Glucose [Mass/volume] in Ser um or PlasmaOrdered By: Guillermina Shetty on 01-05-2025 Glucose [Mass/Vol] Glucose [Mass/volume ] in Serum or Plasma High 70-100 [facility] Comment on above: ADA recommended refe rence rangeRandom Glucose Reference Range is dependent on time and content of last meal. Glucose of more than 200 mg/dL in a nonstressed, ambulatory subject supports the diagnosis of Diabetes Mellitus. Glucose [Mass/volume] in Uri ne by Test stripOrdered By: Guillermina Shetty on 01-05-2025 Glucose Test strip (U) [Mass/Vol] Glucose [Mass/volume] in Urine by Test strip Normal [facility] Hematocrit Auto (Bld) [Volum e fraction]Ordered By: Guillermina Shetty on 01-05-2025 Hematocrit (Bld) [Volume fraction] Hematocrit [Volume Fraction] of Blood by Automated count 38.8-50.0 [facility] Hemoglobin Test strip Ql (U) Ordered By: Guillermina Shetty on 01-05-2025 Hemoglobin Ql (U) Hemoglobin [Presence ] in Urine by Test strip Negative [facility] Hemoglobin [Mass/volume] in BloodOrdered By: Guillermina Shetty on 01-05-2025 Hemoglobin (Bld) [Mass/Vol] Hemoglobin [Mass/volume] in Blood 13.0-17.0 [facility] Hyaline casts [#/area] in Ur ine sediment by Automated countOrdered By: Guillermina Shetty on 01-05-2025 Hyaline casts Auto (Urine sed) [#/Area] Hyaline casts [#/area] in Urine sediment by Automated count 0-8 [facility] Ketones Test strip Ql (U)Ord ered By: Guillermina Shetty on 01-05-2025 Ketones Ql (U) Ketones [Presence] i n Urine by Test strip Negative [facility] Leukocyte esterase [Presence ] in Urine by Test stripOrdered By: Guillermina Shetty on 01-05-2025 Leukocyte esterase Test strip Ql (U) Leukocyte esterase [Presence] in Urine by Test strip Negative [facility] Leukocytes [#/area] in Urine sediment by Automated countOrdered By: Guillermina Shetty on 01-05-2025 WBC Auto (Urine sed) [#/Area] Leukocytes [#/area] in Urine sediment by Automated count 0-4 [facility] Leukocytes [#/volume] correc naresh for nucleated erythrocytes in Blood by Automated counOrdered By: Guillermina Shetty on 01-05-2025 WBC corrected for nucl RBC Auto (Bld) [#/Vol] Leukocytes [#/volume] corrected for nucleated erythrocytes in Blood by Automated coun 4.1-10.5 [facility] Lymphocytes Auto (Bld) [#/Vo l]Ordered By: Guillermina Shetty on 01-05-2025 Lymphocytes (Bld) [#/Vol] Lymphocytes [#/volume] in Blood by Automated count 1.00-4.8 [facility] Lymphocytes/100 WBC Auto (Bl d)Ordered By: Guillermina Shetty on 01-05-2025 Lymphocytes/100 WBC (Bld) Lymphocytes/100 leukocytes in Blood by Automated count . [facility] MCH Auto (RBC) [Entitic mass ]Ordered By: Guillermina Shetty on 01-05-2025 MCH (RBC) [Entitic mass] MCH [Entitic mass] by Automated count 27.5-35.2 [facility] MCHC Auto (RBC) [Mass/Vol]Or dered By: Guillermina Shetty on 01-05-2025 MCHC (RBC) [Mass/Vol] MCHC [Mass/volume] by Automated count 32.5-35.6 [facility] MCV Auto (RBC) [Entitic vol] Ordered By: Guillermina Shetty on 01-05-2025 MCV (RBC) [Entitic vol] MCV [Entitic vol ume] by Automated count 83.5-101 [facility] Monocyte distribution width [Entitic volume] in Blood by AutomatedOrdered By: Guillermina Shetty on 01-05-2025 Monocyte distribution width Auto (Bld) [Entitic vol] Monocyte distribution width [Entitic volume] in Blood by Automated 0.00-20.00 [facility] Monocytes Auto (Bld) [#/Vol] Ordered By: Guillermina Shetty on 01-05-2025 Monocytes (Bld) [#/Vol] Automated blood monocyte count 0.0-0.8 [facility] Monocytes/100 WBC Auto (Bld) Ordered By: Guillermina Shetty on 01-05-2025 Monocytes/100 WBC (Bld) Automated monocyte % . [facility] Mucus [Presence] in Urine by AutomatedOrdered By: Guillermina Shetty on 01-05-2025 Mucus Auto Ql (U) Mucus [Presence] in Urine by Automated Abnormal [facility] Neutrophils Auto (Bld) [#/Vo l]Ordered By: Guillermina Shetty on 01-05-2025 Neutrophils (Bld) [#/Vol] Neutrophils [#/volume] in Blood by Automated count 1.8-7.7 [facility] Neutrophils/100 WBC Auto (Bl d)Ordered By: Guillermina Shetty on 01-05-2025 Neutrophils/100 WBC (Bld) Automated neutrophil % . [facility] Nitrite Test strip Ql (U)Ord ered By: Guillermina Shetty on 01-05-2025 Nitrite Ql (U) Nitrite [Presence] i n Urine by Test strip Negative [facility] No Panel InformationOrdered By: Guillermina Shetty on 01-05-2025 Estimated GFR (CKD-EPI) > 60.0 mL/Min [facility] Creatinine Clearance (Chem 130.37 [facility] Nucleated erythrocytes [Pres ence] in Blood by Automated countOrdered By: Guillermina Shetty on 01-05-2025 Nucleated RBC Auto Ql (Bld) Nucleated erythrocytes [Presence] in Blood by Automated count 0-0.5 [facility] Opiates [Presence] in Urine by Screen methodOrdered By: Guillermina Shetty on 01-05-2025 Opiates Screen Ql (U) Opiates [Presence] in Urine by Screen method Negative [facility] Phencyclidine Screen Ql (U)O rdered By: Guillermina Shetty on 01-05-2025 Phencyclidine Ql (U) Phencyclidine [Presence] in Urine by Screen method Negative [facility] Platelet adequacy [Presence] in Blood by Light microscopyOrdered By: Guillermina Shetty on 01-05-2025 Platelets LM Ql (Bld) Platelet adequacy [Presence] in Blood by Light microscopy Normal [facility] Platelet mean volume Auto (B ld) [Entitic vol]Ordered By: Guillermina Shetty on 01-05-2025 Platelet mean volume (Bld) [Entitic vol] Platelet mean volume [Entitic volume] in Blood by Automated count 6.6-10.1 [facility] Platelet morphology finding [Identifier] in BloodOrdered By: Guillermina Shetty on 01-05-2025 Platelet morphology finding Nom (Bld) Platelet morphology finding [Identifier] in Blood Normal [facility] Platelets Auto (Bld) [#/Vol] Ordered By: Guillermina Shetty on 01-05-2025 Platelets (Bld) [#/Vol] Platelets [#/vol ume] in Blood by Automated count 150-450 [facility] Potassium [Moles/volume] in Serum or PlasmaOrdered By: Guillermina Shetty on 01-05-2025 Potassium [Moles/Vol] Potassium [Moles/volume] in Serum or Plasma 3.5-5.1 [facility] Protein Test strip (U) [Mass /Vol]Ordered By: Guillermina Shetty on 01-05-2025 Protein (U) [Mass/Vol] Protein [Mass/vol ume] in Urine by Test strip High Negative [facility] Protein [Mass/volume] in Ser um or PlasmaOrdered By: Guillermina Shetty on 01-05-2025 Protein [Mass/Vol] Protein [Mass/volume ] in Serum or Plasma 6.4-8.9 [facility] RBC Auto (Bld) [#/Vol]Ordere d By: Guillermina Shetty on 01-05-2025 RBC (Bld) [#/Vol] Erythrocytes [#/volume] in Blood by Automated count 3.90-5.60 [facility] Scan and CBCon 01-05-2025 Basophils (Bld) [#/Vol] 0.0 10*3/uL Normal 0.0-0.2 [facility] Comment on above: Performed By: #### C MP, CBC, ETOH #### [facility] [address] [place] [address] [place] Basophils/100 WBC (Bld) 0.6 % Normal . [facility] Comment on above: Performed By: #### C MP, CBC, ETOH #### [facility] [address] [place] [id number] [place] Eosinophils (Bld) [#/Vol] 0.1 10*3/uL Normal 0.0-0.45 [facility] Comment on above: Performed By: #### C MP, CBC, ETOH #### [facility] [address] [place] [id number] [place] Eosinophils/100 WBC (Bld) 0.8 % Normal . [facility] Comment on above: Performed By: #### C MP, CBC, ETOH #### [address] Erythrocyte distribution width (RBC) [Ratio] 13.9 % Normal 12.0-14.8 [facility] Comment on above: Performed By: #### C MP, CBC, ETOH #### [address] Hematocrit (Bld) [Volume fraction] 47.3 % Normal 38.8-50.0 [facility] Comment on above: Performed By: #### C MP, CBC, ETOH #### [address] Hemoglobin (Bld) [Mass/Vol] 16.8 g/dL Normal 13.0-17.0 [facility] Comment on above: Performed By: #### C MP, CBC, ETOH #### [address] Lymphocytes (Bld) [#/Vol] 1.9 10*3/uL Normal 1.00-4.8 [facility] Comment on above: Performed By: #### C MP, CBC, ETOH #### [address] Lymphocytes/100 WBC (Bld) 24.7 % Normal . [facility] Comment on above: Performed By: #### C MP, CBC, ETOH #### [address] MCH (RBC) [Entitic mass] 31.2 pg Normal 27.5-35.2 [facility] Comment on above: Performed By: #### C MP, CBC, ETOH #### [address] MCV (RBC) [Entitic vol] 87.7 fL Normal 83.5-101 [facility] Comment on above: Performed By: #### C MP, CBC, ETOH #### [address] Mean Corpuscular HGB Conc 35.6 g/dL Normal 32.5-35.6 [facility] Comment on above: Performed By: #### C MP, CBC, ETOH #### [facility] [address] [place] [address] [place] Monocytes (Bld) [#/Vol] 0.5 10*3/uL Normal 0.0-0.8 [facility] Comment on above: Performed By: #### C MP, CBC, ETOH #### [facility] [address] [place] [address] [place] Monocytes/100 WBC (Bld) 16.04 % Normal 0.00-20.00 [facility] Comment on above: Performed By: #### C MP, CBC, ETOH #### [place] [address] [place] Monocytes/100 WBC (Bld) 5.7 % Normal . [facility] Comment on above: Performed By: #### C MP, CBC, ETOH #### [place] [address] [place] Neutrophils (Bld) [#/Vol] 5.4 10*3/uL Normal 1.8-7.7 [facility] Comment on above: Performed By: #### C MP, CBC, ETOH #### [place] [address] [place] Neutrophils/100 WBC (Bld) 68.2 % Normal . [facility] Comment on above: Performed By: #### C MP, CBC, ETOH #### [place] [address] [place] NRBC% 0.2 /100{WBC} Normal 0-0.5 [facility] Comment on above: Performed By: #### C MP, CBC, ETOH #### [place] [address] [place] Platelet Estimate Normal Normal Normal [facility] Comment on above: Performed By: #### C MP, CBC, ETOH #### [address] Platelet mean volume (Bld) [Entitic vol] 8.1 fL Normal 6.6-10.1 [facility] Comment on above: Performed By: #### C MP, CBC, ETOH #### [address] Platelet Morphology Normal Normal Normal [facility] Comment on above: Result Comment: PERF ORMED BY: [place] [address] PATHOLOGIST [employer] CORINNE RITTER M.D. Performed By: #### C MP, CBC, ETOH #### [address] Platelets (Bld) [#/Vol] 159 10*3/uL Normal 150-450 [facility] Comment on above: Performed By: #### C MP, CBC, ETOH #### [address] RBC (Bld) [#/Vol] 5.40 10*6/uL Normal 3.90-5.60 [facility] Comment on above: Performed By: #### C MP, CBC, ETOH #### [address] RBC morphology finding Nom (Bld) Normal Normal Normal [facility] Comment on above: Performed By: #### C MP, CBC, ETOH #### [address] WBC (Bld) [#/Vol] 7.9 10*3/uL Normal 4.1-10.5 [facility] Comment on above: Performed By: #### C MP, CBC, ETOH #### [address] Serum or plasma albumin/glob ulin mass ratioOrdered By: Guillermina Shetty on 01-05-2025 Albumin/Globulin [Mass ratio] Serum or plasma albumin/globulin mass ratio [facility] Serum or plasma anion gap de terminationOrdered By: Guillermina Shetty on 01-05-2025 Anion gap [Moles/Vol] Serum or plasma an ion gap determination 6.0-15.0 [facility] Sodium [Moles/volume] in Ser um or PlasmaOrdered By: Guillermina Shetty on 01-05-2025 Sodium [Moles/Vol] Sodium [Moles/volume ] in Serum or Plasma 136-145 [facility] Specific gravity Test strip (U) [Rel density]Ordered By: Guillermina Shetty on 01-05-2025 Specific gravity (U) [Rel density] Specific gravity of Urine by Test strip 1.001-1.030 [facility] Urea nitrogen [Mass/volume] in Serum or PlasmaOrdered By: Guillermina Shetty on 01-05-2025 Urea nitrogen [Mass/Vol] Urea nitrogen [Mass/volume] in Serum or Plasma 7-25 [facility] Urobilinogen Test strip (U) [Mass/Vol]Ordered By: Guillermina Shetty on 01-05-2025 Urobilinogen (U) [Mass/Vol] Urobilinogen [Mass/volume] in Urine by Test strip Normal [facility] WBC Auto (Bld) [#/Vol]Ordere d By: Guillermina Shetty on 01-05-2025 WBC (Bld) [#/Vol] Leukocytes [#/volume ] in Blood by Automated count 4.1-10.5 [facility] pH Test strip (U)Ordered By: Guillermina Shetty on 01-05-2025 pH (U) pH of Urine by Test strip 5.0-9.0 [facility] Capillary blood glucose sarah urement by glucometer (mass/volume)Ordered By: Blue Talbot on 08-04-2024 Glucose [Mass/Vol] 329 mg/dL Normal [facility] Comment on above: Random Glucose Refer ence Range is dependent on time and content of last meal. Glucose of more than 200 mg/dL in a nonstressed, ambulatory subject supports the diagnosis of Diabetes Mellitus. Result Comment: [place] om Glucose Reference Range is dependent on time and content of last meal. Glucose of more than 200 mg/dL in a nonstressed, ambulatory subject supports the diagnosis of Diabetes Mellitus. PERFORMED BY: [facility] [address] [place] [address] PATHOLOGIST [employer] BEKAH FREED M.D. Performed By: #### C MP, CBC, ETOH #### [address] Glucose Poct Glucometerson 1 Commemt1 Glu2: Cleaned Meter Normal [facility] Comment on above: Result Comment: PERF ORMED BY: [place] [address] PATHOLOGIST [employer] BEKAH FREED M.D. Performed By: #### C MP, CBC, ETOH #### [address] Glucose [Mass/Vol] 336 mg/dL Normal [facility] Comment on above: Result Comment: [place] Glucose Reference Range is dependent on time and content of last meal. Glucose of more than 200 mg/dL in a nonstressed, ambulatory subject supports the diagnosis of Diabetes Mellitus. Performed By: #### C MP, CBC, ETOH #### [address] Glucose [Mass/Vol] 261 mg/dL Normal [facility] Comment on above: Result Comment: [place] Glucose Reference Range is dependent on time and content of last meal. Glucose of more than 200 mg/dL in a nonstressed, ambulatory subject supports the diagnosis of Diabetes Mellitus. PERFORMED BY: [place] [address] PATHOLOGIST [employer] BEKAH FREED M.D. Performed By: #### R EDRAW TP, REDRAW AST, REDRAW ALB, REDRAW NA, REDRAW K #### [address] No Panel InformationOrdered By: Blue Talbot on 08-04-2024 Bedside Glucose Comment Glu2: cleaned meter [facility] Glucose Poct Glucometerson 1 Commemt1 Glu2: Cleaned Meter Normal [facility] Comment on above: Result Comment: PERF ORMED BY: [place] [address] PATHOLOGIST [employer] BEKAH FREED M.D. Performed By: #### R EDRAW TP, REDRAW AST, REDRAW ALB, REDRAW NA, REDRAW K #### [address] Glucose [Mass/Vol] 337 mg/dL Normal [facility] Comment on above: Result Comment: [place] Glucose Reference Range is dependent on time and content of last meal. Glucose of more than 200 mg/dL in a nonstressed, ambulatory subject supports the diagnosis of Diabetes Mellitus. Performed By: #### R EDRAW TP, REDRAW AST, REDRAW ALB, REDRAW NA, REDRAW K #### [address] Commemt1 Glu2: Cleaned Meter Normal [facility] Comment on above: Result Comment: PERF ORMED BY: [place] [address] PATHOLOGIST [employer] BEKAH FREED M.D. Performed By: #### G LULS #### Point of Care testing , Glucose [Mass/Vol] 307 mg/dL Normal [facility] Comment on above: Result Comment: [place] Glucose Reference Range is dependent on time and content of last meal. Glucose of more than 200 mg/dL in a nonstressed, ambulatory subject supports the diagnosis of Diabetes Mellitus. Performed By: #### G LULS #### Point of Care testing , Commemt1 Glu2: Cleaned Meter Normal [facility] Comment on above: Result Comment: PERF ORMED BY: [place] [address] PATHOLOGIST [employer] BEKAH FREED M.D. Performed By: #### C MP, CBC, ETOH #### [address] Glucose [Mass/Vol] 385 mg/dL Normal [facility] Comment on above: Result Comment: [place] Glucose Reference Range is dependent on time and content of last meal. Glucose of more than 200 mg/dL in a nonstressed, ambulatory subject supports the diagnosis of Diabetes Mellitus. Performed By: #### C MP, CBC, ETOH #### [place] [id number] [place] Commemt1 Glu2: Cleaned Meter Normal [facility] Comment on above: Result Comment: PERF ORMED BY: [place] [address] PATHOLOGIST [employer] BEKAH FREED M.D. Performed By: #### C MP, CBC, ETOH #### [facility] [address] [place] [address] Glucose [Mass/Vol] 232 mg/dL Normal [facility] Comment on above: Result Comment: [place] Glucose Reference Range is dependent on time and content of last meal. Glucose of more than 200 mg/dL in a nonstressed, ambulatory subject supports the diagnosis of Diabetes Mellitus. Performed By: #### C MP, CBC, ETOH #### [place] [address] [place] XR lumbar spine 2-3V*on XR lumbar spine 2-3V* [facility] [place] [address] [place] [address] XRay Report Signed Patient: Tracie Lott MR#: [id number] : 2000 Acct:[id number] Age/Sex: 24 / M ADM Date: 08/01/24 Loc: Room: [address] [place] [address] Type: ADM IN Attending Dr: Blue Talbot MD Copies to: MD Rola Hastings APRN Ordering Provider: Rola Valdes APRN Date of Service: 08/03/24 XR/XR lumbar spine 2-3V*: Chronic back pain XR lumbar spine 2-3V* 08/03/2024 4:32 PM SIGNS AND SYMPTOMS: Chronic low back pain radiating to upper back PROTOCOLS: Frontal and lateral radiograph of the lumbar spine COMPARISON: None FINDINGS: There is straightening of the normal lumbar lordosis which may be positional or secondary to muscle spasm.. There is no fracture or destructive lesion. Facet hypertrophic changes are noted appearing to contribute to neural foraminal stenosis at L3-L4, L4-5, and L5-S1 to the greatest extent. The disk spaces are well-preserved. The sacrum and sacroiliac joints are normal. XR/XR lumbar spine 2-3V* IMPRESSION: Facet hypertrophic changes are noted appearing to contribute to neural foraminal stenosis at L3-L4, L4-5, and L5-S1 to the greatest extent. No fracture or subluxation. There is straightening of the normal lumbar lordosis which may be positional or secondary to muscle spasm. Impression dictated by: Tristan Bruno M.D.08/03/2024 8:36 PM Dictation Location: RADIO-PC-13 Transcribed By: [facility] 08/03/242035 Dictated By: Tristan Bruno II, MD 08/03/242032 Signed By: 08/03/242035 Normal [facility] XR thoracic spine 2Von 08-03 XR thoracic spine 2V [facility] [place] [address] XRay Report Signed Patient: Tracie Lott MR#: [id number] : 2000 Acct:[id number] Age/Sex: 24 / M ADM Date: 08/01/24 Loc: Room: [address] [place] [address] Type: ADM IN Attending Dr: Blue Talbot MD Copies to: MD Rola Hastings APRN Ordering Provider: Rola Valdes APRN Date of Service: 08/03/24 XR/XR thoracic spine 2V: Chronic back pain XR thoracic spine 2V 08/03/2024 4:32 PM SIGNS AND SYMPTOMS: Chronic low back pain PROTOCOLS: Frontal and lateral radiographs of the thoracic spine. COMPARISON: None FINDINGS: The bones are in anatomic alignment with preservation of vertebral body heights and intervertebral disc spaces. No evidence of fracture or bony destructive lesion. XR/XR thoracic spine 2V IMPRESSION: Negative Thoracic Spine. Impression dictated by: Tristan Bruno M.D.08/03/2024 8:33 PM Dictation Location: RADIO-PC-13 Transcribed By: [facility] 08/03/242032 Dictated By: Tristan Bruno II, MD 08/03/242030 Signed By: 08/03/242032 Normal [facility] Cholesterol [Mass/volume] in Serum or PlasmaOrdered By: Blue Talbot on 08-02-2024 Cholesterol [Mass/Vol] 149 mg/dL Normal 140-200 [facility] Comment on above: Chol less than 200 m g/dl low riskChol 201-239 mg/dl borderline riskChol 240 mg/dl and greater high risk Result Comment: Chol less than 200 mg/dl low risk Chol 201-239 mg/dl borderline risk Chol 240 mg/dl and greater high risk Performed By: #### R EDRAW TP, REDRAW AST, REDRAW ALB, REDRAW NA, REDRAW K #### [address] Cholesterol in LDL Calc [Mas s/Vol]Ordered By: Blue Talbot on 08-02-2024 Cholesterol in LDL [Mass/Vol] TNP [facility] Comment on above: Test not performed Cholesterol in LDL [Mass/vol ume] in Serum or PlasmaOrdered By: Blue Talbot on 08-02-2024 Cholesterol in LDL [Mass/Vol] 58 mg/dL 0-100 [facility] Comment on above: LDL ATP III CLASSIFI CATIONLDL less than 100 mg/dL OptimalLDL 100-129 mg/dL Near or above optimalLDL 130-159 mg/dL Borderline highLDL 160-189 mg/dL HighLDL greater than 189 mg/dL Very high Cholesterol in VLDL Calc [Ma ss/Vol]Ordered By: Blue Talbot on 08-02-2024 Cholesterol in VLDL [Mass/Vol] 113 mg/dL [facility] Glucose Poct Glucometerson 1 Glucose [Mass/Vol] 353 mg/dL Normal [facility] Comment on above: Result Comment: [facility] Glucose Reference Range is dependent on time and content of last meal. Glucose of more than 200 mg/dL in a nonstressed, ambulatory subject supports the diagnosis of Diabetes Mellitus. PERFORMED BY: [facility] [address] [place] [address] PATHOLOGIST [employer] BEKAH FREED M.D. Performed By: #### C MP, CBC, ETOH #### [address] Glucose [Mass/Vol] 281 mg/dL Normal [facility] Comment on above: Result Comment: [place] om Glucose Reference Range is dependent on time and content of last meal. Glucose of more than 200 mg/dL in a nonstressed, ambulatory subject supports the diagnosis of Diabetes Mellitus. PERFORMED BY: [place] [address] PATHOLOGIST [employer] BEKAH FREED M.D. Performed By: #### R EDRAW TP, REDRAW AST, REDRAW ALB, REDRAW NA, REDRAW K #### [address] Commemt1 Glu2: Cleaned Meter Normal [facility] Comment on above: Result Comment: PERF ORMED BY: [place] [address] PATHOLOGIST [employer] BEKAH FREED M.D. Performed By: #### R EDRAW TP, REDRAW AST, REDRAW ALB, REDRAW NA, REDRAW K #### [address] Glucose [Mass/Vol] 296 mg/dL Normal [facility] Comment on above: Result Comment: [place] om Glucose Reference Range is dependent on time and content of last meal. Glucose of more than 200 mg/dL in a nonstressed, ambulatory subject supports the diagnosis of Diabetes Mellitus. Performed By: #### R EDRAW TP, REDRAW AST, REDRAW ALB, REDRAW NA, REDRAW K #### [address] Glucose [Mass/Vol] 277 mg/dL Normal [facility] Comment on above: Result Comment: [place] om Glucose Reference Range is dependent on time and content of last meal. Glucose of more than 200 mg/dL in a nonstressed, ambulatory subject supports the diagnosis of Diabetes Mellitus. PERFORMED BY: [address] [place] [address] PATHOLOGIST [employer] BEKAH FREED M.D. Performed By: #### R EDRAW TP, REDRAW AST, REDRAW ALB, REDRAW NA, REDRAW K #### [address] LDL Cholesterol Measuredon 1 LDL Cholesterol Measured 58 mg/dL Normal 0-100 [facility] Comment on above: Result Comment: LDL ATP III CLASSIFICATION LDL less than 100 mg/dL Optimal LDL 100-129 mg/dL Near or above optimal LDL 130-159 mg/dL Borderline high LDL 160-189 mg/dL High LDL greater than 189 mg/dL Very high Performed By: #### R EDRAW TP, REDRAW AST, REDRAW ALB, REDRAW NA, REDRAW K #### [address] Lipid Panelon 08-02-2024 LDL Cholesterol,Calculated Not performed Normal 0-100 [facility] Comment on above: Performed By: #### R EDRAW TP, REDRAW AST, REDRAW ALB, REDRAW NA, REDRAW K #### [address] Triglyceride w/Reflex 569 mg/dL High 0-149 [facility] Comment on above: Result Comment: TRIG ATP III CLASSIFICATION TRIG less than 150 mg/dL Normal TRIG 150-199 mg/dL Borderline high TRIG 200-500 mg/dL High TRIG greater than 500 mg/dL Very high Standard traceable to the Center for Disease Conrtrol and Prevention (CDC) test method. If the triglyceride result is greater than 400, LDLC and related calculations cannot be calculated and resulted. Performed By: #### R EDRAW TP, REDRAW AST, REDRAW ALB, REDRAW NA, REDRAW K #### [address] VLDL CHOLESTEROL 113 mg/dL Normal [facility] Comment on above: Performed By: #### R EDRAW TP, REDRAW AST, REDRAW ALB, REDRAW NA, REDRAW K #### [facility] [address] Serum or plasma high density lipoprotein (HDL) cholesterol measurementOrdered By: Blue Talbot on 08-02-2024 Cholesterol in HDL [Mass/Vol] 22 mg/dL Low 23-92 [facility] Comment on above: HDL CHOL ATP-III CLA SSIFICATION Cardiovascular RiskHDL > or equal to 60 mg/dL LOWHDL < 40 mg/dL HIGH Result Comment: HDL CHOL ATP-III CLASSIFICATION Cardiovascular Risk HDL > or equal to 60 mg/dL LOW HDL < 40 mg/dL HIGH Performed By: #### R EDRAW TP, REDRAW AST, REDRAW ALB, REDRAW NA, REDRAW K #### [facility] [address] [place] [address] Serum or plasma total choles terol/high density lipoprotein (HDL) cholesterol mass ratOrdered By: Blue Talbot on 08-02-2024 Cholesterol.total/Marge sterol in HDL [Mass ratio] 6.8 {ratio} Normal <5.0 [facility] Comment on above: Performed By: #### R EDRAW TP, REDRAW AST, REDRAW ALB, REDRAW NA, REDRAW K #### [facility] [address] [place] [address] Thyroid Stim Hormone w/Rflxo n 08-02-2024 Thyroid Stim Hormone w/Rflx 2.94 u[iU]/mL Normal 0.45-5.33 [facility] Comment on above: Performed By: #### R EDRAW TP, REDRAW AST, REDRAW ALB, REDRAW NA, REDRAW K #### [facility] [address] [place] [address] Thyrotropin [Units/volume] i n Serum or PlasmaOrdered By: Blue Talbot on 08-02-2024 TSH Qn 2.94 m[IU]/L 0.45-5.33 [facility] Triglyceride [Mass/volume] i n Serum or PlasmaOrdered By: Blue Talbot on 08-02-2024 Triglyceride [Mass/Vol] 569 mg/dL High 0-149 [facility] Comment on above: If the triglyceride result is greater than 400, LDLC and related calculations cannot be calculated and resulted.TRIG ATP III CLASSIFICATIONTRIG less than 150 mg/dL NormalTRIG 150-199 mg/dL Borderline highTRIG 200-500 mg/dL High TRIG greater than 500 mg/dL Very highStandard traceable to the Center for Disease Conrtrol and Prevention (CDC) test method. Vitamin D 25 Hydroxy Totalon 08-02-2024 Vitamin D 25 Hydroxy Total 31.4 ng/mL Normal 30-100 [facility] Comment on above: Result Comment: YU MIN D STATUS 25(OH)VITAMIN D RANGE (ng/mL) Deficient <20 Insufficient 20 to <30 Sufficient 30 to 100 Reference: Jodee Shrestha, Christina GUEVARA, et al. Evaluation,treatment, and prevention of vitamin D deficiency; an Endocrine Society clinical practice guideline. JCEM. 2010; 96(7):1911-. PERFORMED BY: [place] [address] PATHOLOGIST [employer] BEKAH FREED M.D. Performed By: #### R EDRAW TP, REDRAW AST, REDRAW ALB, REDRAW NA, REDRAW K #### [address] Vitamin D+Metabolites [Mass/ volume] in Serum or PlasmaOrdered By: Blue Talbot on 08-02-2024 Vitamin D+Metabolites [Mass/Vol] 31.4 ng/mL 30-100 [facility] Comment on above: VITAMIN D STATUS 25( OH)VITAMIN D RANGE (ng/mL) Deficient <20 Insufficient 20 to <30Sufficient 30 to 100Reference: Jodee Shrestha, Christina GUEVARA, et al. Evaluation,treatment, and prevention of vitamin D deficiency; an Endocrine Society clinical practice guideline. JCEM. 2010; 96(7):1911-30. Alanine aminotransferase [En zymatic activity/volume] in Serum or PlasmaOrdered By: Octavio Patrick on 08-01-2024 ALT [Catalytic activity/Vol] 16 U/L Normal 7-52 [facility] Comment on above: Performed By: #### C MP, CBC, ETOH #### [facility] [address] [place] [address] [place] Albumin [Mass/volume] in Ser um or Plasma by Bromocresol green (BCG) dye binding methoOrdered By: Octavio Patrick on 08-01-2024 Albumin BCG dye [Mass/Vol] 4.2 g/dL 3.5-5.7 [facility] Alkaline phosphatase [Enzyma tic activity/volume] in Serum or PlasmaOrdered By: Octavio Patrick on 08-01-2024 ALP [Catalytic activity/Vol] 43 U/L Normal 34-104 [facility] Comment on above: Performed By: #### C MP, CBC, ETOH #### [address] Amphetamine Screen Ql (U)Ord ered By: Octavio Patrick on 08-01-2024 Amphetamines Ql (U) Negative Negative [facility] Aspartate aminotransferase [ Enzymatic activity/volume] in Serum or PlasmaOrdered By: Octavio Patrick on 08-01-2024 AST [Catalytic activity/Vol] 12 U/L Low 13-39 [facility] Comment on above: Result Comment: PERF ORMED BY: [place] [address] PATHOLOGIST [employer] BEKAH FREED M.D. Performed By: #### C MP, CBC, ETOH #### [address] Automated basophil %Ordered By: Octavio Patrick on 08-01-2024 Basophils/100 WBC (Bld) 0.6 % Normal . [facility] Comment on above: Performed By: #### C MP, CBC, ETOH #### [address] Automated basophil countOrde red By: Octavio Patrick on 08-01-2024 Basophils (Bld) [#/Vol] 0.1 10*3/uL Normal 0.0-0.2 [facility] Comment on above: Result Comment: PERF ORMED BY: [place] [address] PATHOLOGIST [employer] BEKAH FREED M.D. Performed By: #### C MP, CBC, ETOH #### [address] Automated blood monocyte cou ntOrdered By: Octavio Patrick on 08-01-2024 Monocytes (Bld) [#/Vol] 0.4 10*3/uL Normal 0.0-0.8 [facility] Comment on above: Performed By: #### C MP, CBC, ETOH #### [address] Automated eosinophil %Ordere d By: Octavio Patrick on 08-01-2024 Eosinophils/100 WBC (Bld) 0.7 % Normal . [facility] Comment on above: Performed By: #### C MP, CBC, ETOH #### [address] Automated eosinophil countOr dered By: Octavio Patrick on 08-01-2024 Eosinophils (Bld) [#/Vol] 0.1 10*3/uL Normal 0.0-0.45 [facility] Comment on above: Performed By: #### C MP, CBC, ETOH #### [address] Automated monocyte %Ordered By: Octavio Patrick on 08-01-2024 Monocytes/100 WBC (Bld) 4.6 % Normal . [facility] Comment on above: Performed By: #### C MP, CBC, ETOH #### [address] Automated neutrophil %Ordere d By: Octavio Patrick on 08-01-2024 Neutrophils/100 WBC (Bld) 59.5 % Normal . [facility] Comment on above: Performed By: #### C MP, CBC, ETOH #### [address] Bacteria [Presence] in Urine by AutomatedOrdered By: Octavio Patrick on 08-01-2024 Bacteria Auto Ql (U) None seen [HPF] None Seen [facility] Barbiturates [Presence] in U rine by Screen methodOrdered By: Octavio Patrick on 08-01-2024 Barbiturates Screen Ql (U) Negative Negative [facility] Benzodiazepines Screen Ql (U )Ordered By: Octavio Patrick on 08-01-2024 Benzodiazepines Ql (U) Negative Negative [facility] Benzoylecgonine [Presence] i n Urine by Screen methodOrdered By: Octavio Patrick on 08-01-2024 Benzoylecgonine Screen Ql (U) Negative Negative [facility] Bilirubin Test strip Ql (U)O rdered By: Octavio Patrick on 08-01-2024 Bilirubin Ql (U) Negative Negative [facility] Bilirubin.total [Mass/volume ] in Serum or PlasmaOrdered By: Octavio Patrick on 08-01-2024 Bilirubin [Mass/Vol] 0.9 mg/dL Normal 0.3-1.0 [facility] Comment on above: Performed By: #### C MP, CBC, ETOH #### [facility] [address] [place] [address] [place] Calcium [Mass/volume] in Ser um or PlasmaOrdered By: Octavio Patrick on 08-01-2024 Calcium [Mass/Vol] 9.4 mg/dL Normal 8.6-10.3 [facility] Comment on above: Performed By: #### C MP, CBC, ETOH #### [facility] [address] [place] [id number] [place] Cannabinoids [Presence] in U rine by Screen methodOrdered By: Octavio Patrick on 08-01-2024 Cannabinoids Screen Ql (U) Negative Negative [facility] Comment on above: These are unconfirme d results and should not be used for legal purposes. Drug Cut-Off Concentration: AMPH 1000 ng/mL KATHLEEN 200 ng/mL CARMEN 200 ng/mL COCM 300 ng/mL OP 300 ng/mL PCP 25 ng/mL THC 20 ng/mL Capillary blood glucose sarah urement by glucometer (mass/volume)Ordered By: Octavio Patrick on 08-01-2024 Glucose [Mass/Vol] 352 mg/dL Normal [facility] Comment on above: Random Glucose Refer ence Range is dependent on time and content of last meal. Glucose of more than 200 mg/dL in a nonstressed, ambulatory subject supports the diagnosis of Diabetes Mellitus. Result Comment: [facility] Glucose Reference Range is dependent on time and content of last meal. Glucose of more than 200 mg/dL in a nonstressed, ambulatory subject supports the diagnosis of Diabetes Mellitus. Performed By: #### R EDRAW TP, REDRAW AST, REDRAW ALB, REDRAW NA, REDRAW K #### [address] Carbon dioxide, total [Moles /volume] in Serum or PlasmaOrdered By: Octavio Patrick on 08-01-2024 CO2 [Moles/Vol] 27.8 mmol/L Normal 21.0-31.0 [facility] Comment on above: Performed By: #### C MP, CBC, ETOH #### [address] Chloride [Moles/volume] in S emerson or PlasmaOrdered By: Octavio Patrick on 08-01-2024 Chloride [Moles/Vol] 98 mmol/L Normal 98-107 [facility] Comment on above: Performed By: #### C MP, CBC, ETOH #### [address] Color of Urine by AutoOrdere d By: Octavio Patrick on 08-01-2024 Color (U) Light-yellow Normal Yellow [facility] Comment on above: Order Comment: Name Collection Type:: Clean-Voided Midstream Performed By: #### G LUNICO #### Point of Care testing , Complete Blood Count Auto Di ffon 08-01-2024 Mean Corpuscular HGB Conc 36.9 g/dL High 32.5-35.6 [facility] Comment on above: Performed By: #### C MP, CBC, ETOH #### [place] [address] [place] Monocytes/100 WBC (Bld) 15.15 % Normal 0.00-20.00 [facility] Comment on above: Performed By: #### C MP, CBC, ETOH #### [place] [address] [place] NRBC% 0.3 /100{WBC} Normal 0-0.5 [facility] Comment on above: Performed By: #### C MP, CBC, ETOH #### [address] Comprehensive Metabolic Pane zoraida 08-01-2024 Albumin Level Normal 3.5-5.7 [facility] Comment on above: Result Comment: Spec imen hemolyzed, redraw requested Performed By: #### C MP, CBC, ETOH #### [address] Albumin/Globulin [Mass ratio] Not performed Normal [facility] Comment on above: Performed By: #### C MP, CBC, ETOH #### [address] Anion gap [Moles/Vol] Not performed Normal 6.0-15.0 [facility] Comment on above: Performed By: #### C MP, CBC, ETOH #### [address] Aspartate Amino Transferase Normal 13-39 [facility] Comment on above: Result Comment: Spec imen hemolyzed, redraw requested Performed By: #### C MP, CBC, ETOH #### [address] Creatinine Clr Calc Pharmacy 135.07 Normal [facility] Comment on above: Result Comment: PERF ORMED BY: [place] [address] PATHOLOGIST [employer] BEKAH FREED M.D. Performed By: #### C MP, CBC, ETOH #### [address] GFR/1.73 sq M.predicted MDRD (S/P/Bld) [Vol rate/Area] mL/min/{1.73_m2} Normal [facility] Comment on above: Performed By: #### C MP, CBC, ETOH #### [address] Globulin Not performed Normal [facility] Comment on above: Performed By: #### C MP, CBC, ETOH #### [facility] [address] Potassium Normal 3.5-5.1 [facility] Comment on above: Result Comment: Spec imen hemolyzed, redraw requested Performed By: #### C MP, CBC, ETOH #### [facility] [address] Sodium Normal 136-145 [facility] Comment on above: Result Comment: Spec imen hemolyzed, redraw requested Performed By: #### C MP, CBC, ETOH #### [facility] [address] Total Protein Normal 6.4-8.9 [facility] Comment on above: Result Comment: Spec imen hemolyzed, redraw requested Performed By: #### C MP, CBC, ETOH #### [address] Creatinine [Mass/volume] in Serum or PlasmaOrdered By: Octavio Patrick on 08-01-2024 Creatinine [Mass/Vol] 1.02 mg/dL Normal 0.70-1.30 [facility] Comment on above: Performed By: #### C MP, CBC, ETOH #### [address] Dipstick and Microscopicon 1 Bacteria,Urine None Seen Normal None Seen [facility] Comment on above: Order Comment: Name Collection Type:: Clean-Voided Midstream Performed By: #### G LULS #### Point of Care testing , Bilirubin,Urine Negative Normal Negative [facility] Comment on above: Order Comment: Name Collection Type:: Clean-Voided Midstream Performed By: #### G LULS #### Point of Care testing , Glucose Ql (U) >=1000 High Normal [facility] Comment on above: Order Comment: Name Collection Type:: Clean-Voided Midstream Performed By: #### G LULS #### Point of Care testing , Hyaline Casts,Urine None Normal 0-8 [facility] Comment on above: Order Comment: Name Collection Type:: Clean-Voided Midstream Performed By: #### G LULS #### Point of Care testing , Mucus,Urine Rare Normal [facility] Comment on above: Order Comment: Name Collection Type:: Clean-Voided Midstream Result Comment: PERF ORMED BY: [address] [address] PATHOLOGIST [employer] BEKAH FREED M.D. Performed By: #### G LULS #### Point of Care testing , Nitrite,Urine Negative Normal Negative [facility] Comment on above: Order Comment: Name Collection Type:: Clean-Voided Midstream Performed By: #### G LULS #### Point of Care testing , Occult Blood,Urine Negative Normal Negative [facility] Comment on above: Order Comment: Name Collection Type:: Clean-Voided Midstream Result Comment: PERF ORMED BY: [address] [address] PATHOLOGIST [employer] BEKAH FREED M.D. Performed By: #### G LULS #### Point of Care testing , RBC,Urine 1-2 Normal 0-4 [facility] Comment on above: Order Comment: Name Collection Type:: Clean-Voided Midstream Performed By: #### G LULS #### Point of Care testing , Specificy Dar[place],Urine 1.034 High 1.001-1.030 [facility] Comment on above: Order Comment: Name Collection Type:: Clean-Voided Midstream Performed By: #### G LULS #### Point of Care testing , Squamous Epithelial Cell,Urine 1-2 Normal 0-2 [facility] Comment on above: Order Comment: Name Collection Type:: Clean-Voided Midstream Performed By: #### G LULS #### Point of Care testing , Urobilinogen,Urine Normal Normal Normal [facility] Comment on above: Order Comment: Name Collection Type:: Clean-Voided Midstream Performed By: #### G LULS #### Point of Care testing , WBC,Urine 1-2 Normal 0-4 [facility] Comment on above: Order Comment: Name Collection Type:: Clean-Voided Midstream Performed By: #### G LULS #### Point of Care testing , Drug Screen,Urineon 08-01-20 Amphetamine Screen,Urine Negative Normal Negative [facility] Comment on above: Performed By: #### G LULS #### Point of Care testing , Barbiturate Screen,Urine Negative Normal Negative [facility] Comment on above: Performed By: #### G LULS #### Point of Care testing , Benzodiazepines Screen,Urine Negative Normal Negative [facility] Comment on above: Performed By: #### G LULS #### Point of Care testing , Cannabinoid Screen,Urine Negative Normal Negative [facility] Comment on above: Result Comment: Thes e are unconfirmed results and should not be used for legal purposes. Drug Cut-Off Concentration: AMPH 1000 ng/mL KATHLEEN 200 ng/mL CARMEN 200 ng/mL COCM 300 ng/mL OP 300 ng/mL PCP 25 ng/mL THC 20 ng/mL PERFORMED BY: [place] [address] PATHOLOGIST [employer] BEKAH FREED M.D. Performed By: #### G LULS #### Point of Care testing , Cocaine Screen,Urine Negative Normal Negative [facility] Comment on above: Performed By: #### G LULS #### Point of Care testing , Opiate Screen,Urine Negative Normal Negative [facility] Comment on above: Performed By: #### G LULS #### Point of Care testing , Phencyclidine Screen,Urine Negative Normal Negative [facility] Comment on above: Performed By: #### G LULS #### Point of Care testing , ECG 12 lead ECGon 08-01-2024 ECG 12 lead ECG [facility] [place] [address] Electrocardiograph Report Signed Patient: Tracie Lott MR#: [id number] : 2000 Acct:[id number] Age/Sex: 24 / M ADM Date: 08/01/24 Loc: Room: [address] [place] [address] Type: ADM IN Attending Dr: Blue Talbot MD Ordering Provider: Blue Talbot MD Date of Service: 08/01/2405/18/1100 ECG/ECG 12 lead ECG: New admit Copies to: Test Reason : Blood Pressure : */* mmHG Vent. Rate : 89 BPM Atrial Rate : 89 BPM P-R Int : 154 ms QRS Dur : 104 ms QT Int : 326 ms P-R-T Axes : 66 66 51 degrees QTcB Int : 396 ms Normal sinus rhythm Normal ECG Confirmed by Lynnette Daniels ([id number]) on 08/02/2024 10:16:21 AM Referred By: Electronically Signed By: Lynnette Daniels Transcribed By: MUS Signed By Lynnette Daniels MD 4 [id number] Normal [facility] Epithelial cells.squamous [# /area] in Urine sediment by Automated countOrdered By: Octavio Patrick on 08-01-2024 Epithelial cells.squamous Auto (Urine sed) [#/Area] 1-2 [HPF] 0-2 [facility] Erythrocyte distribution wid th [Ratio] by Automated countOrdered By: Octavio Patrick on 08-01-2024 Erythrocyte distribution width (RBC) [Ratio] 13.7 % Normal 12.0-14.8 [facility] Comment on above: Performed By: #### C MP, CBC, ETOH #### [facility] [address] [place] [address] Erythrocytes [#/area] in Uri ne sediment by Automated countOrdered By: Octavio Patrick on 08-01-2024 RBC Auto (Urine sed) [#/Area] 1-2 [HPF] 0-4 [facility] Erythrocytes [#/volume] in B lood by Automated countOrdered By: Octavio Patrick on 08-01-2024 RBC (Bld) [#/Vol] 5.39 10*6/uL Normal 3.90-5.60 [facility] Comment on above: Performed By: #### C MP, CBC, ETOH #### [facility] [address] [place] [address] Ethanol [Mass/volume] in Ser um or PlasmaOrdered By: Octavio Patrick on 08-01-2024 Ethanol [Mass/Vol] mg/dL Normal [facility] Comment on above: Performed By: #### C MP, CBC, ETOH #### [facility] [address] [place] [address] Ethanol [Mass/Vol] TNP [facility] Comment on above: Test not performed Ethyl Alcohol Profileon 10-0 Percent Ethanol Not performed Normal [facility] Comment on above: Result Comment: PERF ORMED BY: [place] [address] PATHOLOGIST [employer] BEKAH FREED M.D. Performed By: #### C MP, CBC, ETOH #### [facility] [address] [place] [address] Globulin Calc (S) [Mass/Vol] Ordered By: Octavio Patrick on 08-01-2024 Globulin (S) [Mass/Vol] TNP [facility] Comment on above: Test not performed Glucose Poct Glucometerson 1 Glucose [Mass/Vol] 330 mg/dL Normal [facility] Comment on above: Result Comment: [facility] Glucose Reference Range is dependent on time and content of last meal. Glucose of more than 200 mg/dL in a nonstressed, ambulatory subject supports the diagnosis of Diabetes Mellitus. PERFORMED BY: [place] [address] PATHOLOGIST [employer] BEKAH FREED M.D. Performed By: #### G LULS #### Point of Care testing , Glucose [Mass/Vol] 251 mg/dL Normal [facility] Comment on above: Result Comment: [facility] Glucose Reference Range is dependent on time and content of last meal. Glucose of more than 200 mg/dL in a nonstressed, ambulatory subject supports the diagnosis of Diabetes Mellitus. PERFORMED BY: [place] [address] PATHOLOGIST [employer] BEKAH FREED M.D. Performed By: #### C MP, CBC, ETOH #### [facility] [address] [place] [address] Commemt1 Normal [facility] Comment on above: Result Comment: Glu2 : WILL NOTIFY DR/RN PERFORMED BY: [place] [address] PATHOLOGIST [employer] BEKAH FREED M.D. Performed By: #### R EDRAW TP, REDRAW AST, REDRAW ALB, REDRAW NA, REDRAW K #### [facility] [address] [place] [address] [place] Glucose [Mass/volume] in Ser um or PlasmaOrdered By: Octavio Patrick on 08-01-2024 Glucose [Mass/Vol] 206 mg/dL High 70-100 [facility] Comment on above: ADA recommended refe rence rangeRandom Glucose Reference Range is dependent on time and content of last meal. Glucose of more than 200 mg/dL in a nonstressed, ambulatory subject supports the diagnosis of Diabetes Mellitus. Result Comment: [place] [facility] Glucose Reference Range is dependent on time and content of last meal. Glucose of more than 200 mg/dL in a nonstressed, ambulatory subject supports the diagnosis of Diabetes Mellitus. ADA recommended reference range Performed By: #### C MP, CBC, ETOH #### [facility] [address] [place] [address] [place] Glucose [Mass/volume] in Uri ne by Test stripOrdered By: Octavio Patrick on 08-01-2024 Glucose Test strip (U) [Mass/Vol] >=1000 mg/dL High Normal [facility] Hematocrit [Volume Fraction] of Blood by Automated countOrdered By: Octavio Patrick on 08-01-2024 Hematocrit (Bld) [Volume fraction] 45.4 % Normal 38.8-50.0 [facility] Comment on above: Performed By: #### C MP, CBC, ETOH #### [facility] [address] Hemoglobin Test strip Ql (U) Ordered By: Octavio Patrick on 08-01-2024 Hemoglobin Ql (U) Negative Negative [facility] Hemoglobin [Mass/volume] in BloodOrdered By: Octavio Patrick on 08-01-2024 Hemoglobin (Bld) [Mass/Vol] 16.8 g/dL Normal 13.0-17.0 [facility] Comment on above: Performed By: #### C MP, CBC, ETOH #### [facility] [address] [place] [address] [place] Hyaline casts [#/area] in Ur ine sediment by Automated countOrdered By: Octavio Patrick on 08-01-2024 Hyaline casts Auto (Urine sed) [#/Area] None [LPF] 0-8 [facility] Ketones [Presence] in Urine by Test stripOrdered By: Octavio Patrick on 08-01-2024 Ketones Ql (U) 1+ High Negative [facility] Comment on above: Order Comment: Name Collection Type:: Clean-Voided Midstream Performed By: #### G LULS #### Point of Care testing , Leukocyte esterase [Presence ] in Urine by Test stripOrdered By: Octavio Patrick on 08-01-2024 Leukocyte esterase Test strip Ql (U) Negative Normal Negative [facility] Comment on above: Order Comment: Name Collection Type:: Clean-Voided Midstream Performed By: #### G LULS #### Point of Care testing , Leukocytes [#/area] in Urine sediment by Automated countOrdered By: Octavio Patrick on 08-01-2024 WBC Auto (Urine sed) [#/Area] 1-2 [HPF] 0-4 [facility] Leukocytes [#/volume] correc naresh for nucleated erythrocytes in Blood by Automated counOrdered By: Octavio Patrick on 08-01-2024 WBC corrected for nucl RBC Auto (Bld) [#/Vol] 8.6 10*3/uL 4.1-10.5 [facility] Leukocytes [#/volume] in Blo od by Automated countOrdered By: Octavio Patrick on 08-01-2024 WBC (Bld) [#/Vol] 8.6 10*3/uL Normal 4.1-10.5 [facility] Comment on above: Performed By: #### C MP, CBC, ETOH #### [facility] [address] [place] [address] [place] Lymphocytes [#/volume] in Bl ood by Automated countOrdered By: Octavio Patrick on 08-01-2024 Lymphocytes (Bld) [#/Vol] 3.0 10*3/uL Normal 1.00-4.8 [facility] Comment on above: Performed By: #### C MP, CBC, ETOH #### [address] Lymphocytes/100 leukocytes i n Blood by Automated countOrdered By: Octavio Patrick on 08-01-2024 Lymphocytes/100 WBC (Bld) 34.6 % Normal . [facility] Comment on above: Performed By: #### C MP, CBC, ETOH #### [address] MCH [Entitic mass] by Automa naresh countOrdered By: Octavio Patrick on 08-01-2024 MCH (RBC) [Entitic mass] 31.1 pg Normal 27.5-35.2 [facility] Comment on above: Performed By: #### C MP, CBC, ETOH #### [address] MCHC Auto (RBC) [Mass/Vol]Or dered By: Octavio Patrick on 08-01-2024 MCHC (RBC) [Mass/Vol] 36.9 g/dL High 32.5-35.6 [facility] MCV [Entitic volume] by Auto mated countOrdered By: Octavio Patrick on 08-01-2024 MCV (RBC) [Entitic vol] 84.3 fL Normal 83.5-101 [facility] Comment on above: Performed By: #### C MP, CBC, ETOH #### [address] Monocyte distribution width [Entitic volume] in Blood by AutomatedOrdered By: Octavio Patrick on 08-01-2024 Monocyte distribution width Auto (Bld) [Entitic vol] 15.15 % 0.00-20.00 [facility] Mucus [Presence] in Urine by AutomatedOrdered By: Octavio Patrick on 08-01-2024 Mucus Auto Ql (U) Rare [LPF] [facility] Neutrophils [#/volume] in Bl ood by Automated countOrdered By: Octavio Patrick on 08-01-2024 Neutrophils (Bld) [#/Vol] 5.1 10*3/uL Normal 1.8-7.7 [facility] Comment on above: Performed By: #### C MP, CBC, ETOH #### [facility] [address] [place] [address] [place] Nitrite Test strip Ql (U)Ord ered By: Octavio Patrick on 08-01-2024 Nitrite Ql (U) Negative Negative [facility] No Panel InformationOrdered By: Octavio Patrick on 08-01-2024 Bedside Glucose Comment See comment [facility] Comment on above: Glu2: WILL NOTIFY DR /RN Estimated GFR (CKD-EPI) > 60.0 mL/Min [facility] Creatinine Clearance (Chem 135.07 [facility] Nucleated erythrocytes [Pres ence] in Blood by Automated countOrdered By: Octavio Patrick on 08-01-2024 Nucleated RBC Auto Ql (Bld) 0.3 /100{WBC} 0-0.5 [facility] Opiates [Presence] in Urine by Screen methodOrdered By: Octavio Patrick on 08-01-2024 Opiates Screen Ql (U) Negative Negative [facility] Phencyclidine Screen Ql (U)O rdered By: Octavio Patrick on 08-01-2024 Phencyclidine Ql (U) Negative Negative [facility] Platelet mean volume [Entiti c volume] in Blood by Automated countOrdered By: Octavio Patrick on 08-01-2024 Platelet mean volume (Bld) [Entitic vol] 7.9 fL Normal 6.6-10.1 [facility] Comment on above: Performed By: #### C MP, CBC, ETOH #### [facility] [address] [place] [address] [place] Platelets [#/volume] in Bloo d by Automated countOrdered By: Octavio Patrick on 08-01-2024 Platelets (Bld) [#/Vol] 160 10*3/uL Normal 150-450 [facility] Comment on above: Performed By: #### C MP, CBC, ETOH #### [place] [address] [place] Potassium [Moles/volume] in Serum or PlasmaOrdered By: Octavio Patrick on 08-01-2024 Potassium [Moles/Vol] 4.1 mmol/L Normal 3.5-5.1 [facility] Comment on above: Performed By: #### C MP, CBC, ETOH #### [facility] [address] [place] [address] [place] Protein [Mass/volume] in Ser um or PlasmaOrdered By: Octavio Patrick on 08-01-2024 Protein [Mass/Vol] 6.9 g/dL Normal 6.4-8.9 [facility] Comment on above: Performed By: #### R EDRAW TP, REDRAW AST, REDRAW ALB, REDRAW NA, REDRAW K #### [place] [address] [place] Protein [Mass/volume] in Uri ne by Test stripOrdered By: Octavio Patrick on 08-01-2024 Protein (U) [Mass/Vol] 20 mg/dL High Negative [facility] Comment on above: Order Comment: Name Collection Type:: Clean-Voided Midstream Performed By: #### G LULS #### Point of Care testing , Redraw Rosie 08-01-2024 Redraw AST Normal 13-39 [facility] Comment on above: Result Comment: Spec imen hemolyzed, redraw requested PERFORMED BY: [place] [address] PATHOLOGIST [employer] BEKAH FREED M.D. Performed By: #### R EDRAW TP, REDRAW AST, REDRAW ALB, REDRAW NA, REDRAW K #### [address] Redraw Albumin Levelon 08-01 Albumin [Mass/Vol] 4.2 g/dL Normal 3.5-5.7 [facility] Comment on above: Performed By: #### R EDRAW TP, REDRAW AST, REDRAW ALB, REDRAW NA, REDRAW K #### [address] Redraw Potassiumon Redraw Potassium Normal 3.5-5.1 [facility] Comment on above: Result Comment: Spec imen hemolyzed, redraw requested Performed By: #### R EDRAW TP, REDRAW AST, REDRAW ALB, REDRAW NA, REDRAW K #### [facility] [address] [place] [address] Serum or plasma albumin/glob ulin mass ratioOrdered By: Octavio Patrick on 08-01-2024 Albumin/Globulin [Mass ratio] [facility] Comment on above: Test not performed Serum or plasma anion gap de terminationOrdered By: Octavio Patrick on 08-01-2024 Anion gap [Moles/Vol] [facility] Comment on above: Test not performed Sodium [Moles/volume] in Ser um or PlasmaOrdered By: Octavio Patrick on 08-01-2024 Sodium [Moles/Vol] 134 mmol/L Low 136-145 [facility] Comment on above: Performed By: #### R EDRAW TP, REDRAW AST, REDRAW ALB, REDRAW NA, REDRAW K #### [facility] [address] [place] [address] Specific gravity Test strip (U) [Rel density]Ordered By: Octavio Patrick on 08-01-2024 Specific gravity (U) [Rel density] 1.034 High 1.001-1.030 [facility] Urea nitrogen [Mass/volume] in Serum or PlasmaOrdered By: Octavio Patrick on 08-01-2024 Urea nitrogen [Mass/Vol] 14 mg/dL Normal 7-25 [facility] Comment on above: Performed By: #### C MP, CBC, ETOH #### [facility] [address] [place] [address] Urine appearanceOrdered By: Octavio Patrick on 08-01-2024 Appearance (U) Clear Normal Clear [facility] Comment on above: Order Comment: Name Collection Type:: Clean-Voided Midstream Performed By: #### G LUNICO #### Point of Care testing , Urobilinogen Test strip (U) [Mass/Vol]Ordered By: Octavio Patrick on 08-01-2024 Urobilinogen (U) [Mass/Vol] Normal mg/dL Normal [facility] pH of Urine by Test stripOrd ered By: Octavio Patrick on 08-01-2024 pH (U) 6.0 [pH] Normal 5.0-9.0 [facility] Comment on above: Order Comment: Name Collection Type:: Clean-Voided Midstream Performed By: #### G LULS #### Point of Care testing , HbA1c HPLC (Bld) [Mass fract ion]on 06-29-2024 HbA1c (Bld) [Mass fraction] % High [facility] Patient Letter FTon 2023 Patient Letter [facility] Patient Letter [facility] June 02, 2024 TRACIE OREN [address] [place] [id number] : 2000 Dear Petar Tracie Lott, You missed your scheduled procedure on: 05/31/[address] Patel. Please note our appointment slots fill quickly. When you fail to cancel or reschedule an appointment the office is unable to fill the appointment slot that was reserved for you. In the future, we ask that you call 24 hours in advance to cancel your appointment. Our current reminder system gives you the opportunity to cancel by responding to our reminder text, phone call or email. You can also call the office to reschedule during normal business hours or use our on-line scheduling portal at your convenience. Our goal is to provide convenient and quality care to all of our patients. We appreciate your consideration regarding any future cancellations. Sincerely, Normal [facility] Ambulatory Visit Summaryon 0 04-25-2024 Ambulatory Visit Summary Ambulatory Visit Summary TRACIE LOTT :2000 Visit Date:04/25/2024 Ambulatory Visit Instructions Your Diagnosis Encounter for vasectomy counseling Urinary frequency Your Care Team Attending Physician - JORGE GALINDO, Joel Barber This Is Your Medications List ciprofloxacin (Cipro 500 mg Tab) diazepam (Valium 10 mg Tab) Contact prescribing physician if questions or concerns atomoxetine (atomoxetine 40 mg Cap) buPROPion (buPROPion 300 mg/24 hours ER Tab) busPIRone (busPIRone 15 mg Tab) fenofibrate (fenofibrate 145 mg Tab) gabapentin (gabapentin 300 mg Cap) insulin lispro (Insulin Lispro KwikPen 100 units/mL injectable solution) melatonin (Melatonin 10 mg oral capsule) Procedures Performed None. 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 Pt has 1 child and desires sterilization. Dysuria: no Incomplete bladder emptying: no Hematuria: no Frequency: pt states that he voids a lot due to his diabetes Urgency: no Nocturia: 1-2x Stream: no straining Leaking: no Post void dripping: no Wearing pads/ Depends: no Urge incontinence: no Stress incontinence: no Incontinence without Sensory Awareness: no Abdominal pain: no Flank pain: no Sexual complaints: no History of Present Illness Tests reviewed: reviewed UA I have reviewed the previous health record information and history for this patient from external providers. I have reviewed and verified the staff HPI to be accurate for this encounter. Review of Systems PHQ Score Initial Depression Screen Score: 2 SCORE ROS - Provider Constitutional: denies weight loss, denies hot flashes. Eyes: denies eye problems. Gastrointestinal: denies nausea, denies vomiting. Cardiovascular: denies chest pain or angina. Integumentary: no dryness Musculoskeletal: denies musculoskeletal symptoms. ENMT: denies otolaryngeal symptoms. Respiratory: no shortness of breath. Heme/Lymph: denies easy bleeding tendency, denies easy bruising tendency. Psychiatric: no confusion, no anxiety. Genitourinary: See HPI. Physical Exam Vitals & Measurements T: 37 ?C(Temporal Artery) HR: 95(Peripheral) RR: 16 BP: 139/86 HT: 69 in HT: 174 cm WT: 113.5 kg WT: 249.7 lb BMI: 37.49 General Appearance: alert, no distress, well nourished, well developed male. Assessment/Plan Tracie is a 24 yo male new pt here for vasectomy consultation. 1. Encounter for vasectomy counseling (Z30.09: Encounter for other general counseling and advice on contraception) Pt has one child and desires sterilization. No testicular torsion/trauma. UA today negative for blood and infection. -Will schedule Vasectomy. The procedural risks, benefits, details, and treatment alternatives of sterilization have been discussed with the patient today. He understands this procedure is considered permanent, even though vasectomy reversals can be performed. There is no guarantee of successful reversal resulting in , however. Risks discussed include bleeding, infection, failure with in about 1:2500, post-vasectomy syndrome (chronic pain in the testicle or scrotum), possible association with prostate cancer development in the future, and erection problems, among others. Despite these risks, he wishes to proceed. He also understands that he is not considered sterile until a negative semen sample has been received after about 2-3 months after the vasectomy. Full informed consent has been obtained. Will order Local anesthesia. 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 Urinary frequency (R35.0: Frequency of micturition) Feels he voids often. Attributes this to DM. UA today shows 500mg/dL glucose. Follow-up With When Contact Information JORGE GALINDO, Joel Barber, URL [facility] [address] [place] [phone] Additional Instructions: sched vasectomy Patient Education Steps to Quit Smoking Vasectomy, Care After Vasectomy Shayy Manzanares, personally scribed for Dr. Patel on 04/25/2024 12:07:08. . Documentation recorded by the scribeShayy, accurately reflects the services(s) I performed and decisions made by me. Authenticated by Dr. Patel on 04/25/2024 12:08:37. Problem List/Past Medical History Ongoing Arthritis Depression High cholesterol Smoker Type 2 diabetes mellitus Urinary frequency Historical No qualifying data Procedure/Surgical History None. Medications atomoxetine 40 mg Cap buPROPion 300 mg/24 hours ER Tab busPIRone 15 mg Tab fenofibrate 145 mg Tab gabapentin 300 mg Cap Insulin Lispro KwikPen 100 units/mL injectable solution Melatonin 10 mg oral capsule Allergies No Known Medication Allergies Social History Tobacco Smoker, current status unknown Tobacco Use:. Smokeless tobacco user within last 30 days Smokeless Tobacco Use:. Cigarettes, Cigars, Yes, 04/25/2024 Family History High cholesterol: Mother. Hypertension: Mother. Immunizations Vaccine Date Status SARS-CoV-2 (COVID-19) mRNA BNT-162b2 vax 06/25/2021 Recorded SARS-CoV-2 (COVID-19) mRNA BNT-162b2 vax 06/04/2021 Recorded Lab Results Ambulatory Point of Care Results Bilirubin Urine Dipstick: Negative (04/25/24 11:53:00) Blood Urine Dipstick: Negative (04/25/24 11:53:00) Glucose Urine Dipstick: 2+ 500 mg/dl (04/25/24 11:53:00) Ketones Urine Dipstick: 3+ 80-160 mg/dl (04/25/24 11:53:00) (more content not included)... Normal [facility] Comment on above: Result Comment: Elec tronically Signed By: Joel PATEL MD\.br\Date and Time Signed: 04/25/24 12:08 EDT\.br\Electronically Co-Signed By: Shayy Ravi\.br\Date and Time Co-Signed: 04/25/24 12:07 EDT XR Knee Complete Left*on XR Knee Complete Left* TECHNIQUE: AP, lateral and oblique views of the knee obtained. COMPARISON: None available FINDINGS: No acute fracture or dislocation. Joint spaces of the knee are maintained. No knee joint effusion. A 4 mm loose body projects along the posterior aspect of the medial tibial plateau. Soft tissues are within normal limits. IMPRESSION: No acute osseous abnormality. Report reported and signed by Darien Lugo on 03/05/2023 1626 Normal [facility] Curing Finisher CBC AUTO DIFFon 01-25-2023 BASO # 0.0 103/ul Normal 0.0-0.1 [facility] Comment on above: Performed By: #### P OCGLUC #### [facility] [address] [address] [address] Taylor Garcia Basophils/100 WBC (Bld) 0.6 % Normal 0.2-2.0 [facility] Comment on above: Performed By: #### P OCGLUC #### [facility] [address] [address] [address] Taylor Garcia EO # 0.1 103/ul Normal 0.0-0.7 [facility] Comment on above: Performed By: #### P OCGLUC #### [facility] [address] [address] [address] Taylor Gacria Eosinophils/100 WBC (Bld) 1.7 % Normal 0.9-7.0 [facility] Comment on above: Performed By: #### P OCGLUC #### [facility] [address] [place] [address] Dr. Taylor Garcia Erythrocyte distribution width (RBC) [Ratio] 12.7 % Normal 11.0-15.0 [facility] Comment on above: Performed By: #### P OCGLUC #### [facility] [address] [place] [address] Dr. Taylor Garcia Hematocrit (Bld) [Volume fraction] 38.6 % Critically low 42.0-54.0 [facility] Comment on above: Performed By: #### P OCGLUC #### [facility] [address] [place] [address] Dr. Taylor Garcia Hemoglobin (Bld) [Mass/Vol] 14.0 g/dL Normal 14.0-18.0 [facility] Comment on above: Performed By: #### P OCGLUC #### [facility] [address] [place] [address] Dr. Taylor Garcia IG # 0.08 10e3/ul Critically high 0.00-0.03 [place] Comment on above: Performed By: #### P OCGLUC #### [facility] [address] [address] [address] Taylor Garcia IG % 1.6 % Critically high 0.0-0.5 [facility] Comment on above: Performed By: #### P OCGLUC #### [facility] [address] [address] [address] Taylor Garcia LYMPH # 1.7 103/ul Normal 1.2-3.8 [facility] Comment on above: Performed By: #### P OCGLUC #### [facility] [address] [address] [address] Taylor Garcia Lymphocytes/100 WBC (Bld) 33.4 % Normal 20.5-60.0 [facility] Comment on above: Performed By: #### P OCGLUC #### [facility] [address] [address] [address] Taylor Garcia MANUAL DIFF REQ NO Normal [facility] Comment on above: Performed By: #### P OCGLUC #### [facility] [address] [address] [address] Taylor Garcia MCH (RBC) [Entitic mass] 31.7 pg Normal 25.9-34.0 [facility] Comment on above: Performed By: #### P OCGLUC #### [facility] [address] [address] [address] Taylor Garcia MCHC (RBC) [Mass/Vol] 36.3 g/dL Critically high 29.9-35.2 [facility] Comment on above: Performed By: #### P OCGLUC #### [facility] [address] [address] [address] Taylor Garcia MCV (RBC) [Entitic vol] 87.3 fL Normal 80.0-94.0 [facility] Comment on above: Performed By: #### P OCGLUC #### [facility] [address] [address] [address] Taylor Garcia MONO # 0.4 103/ul Normal 0.3-0.8 [facility] Comment on above: Performed By: #### P OCGLUC #### [facility] [address] [address] [address] Taylor Garcia Monocytes/100 WBC (Bld) 8.2 % Normal 1.7-12.0 [facility] Comment on above: Performed By: #### P OCGLUC #### [facility] [address] [address] [address] Taylor Garcia NEUT # 2.8 103/ul Normal 1.4-6.5 [facility] Comment on above: Performed By: #### P OCGLUC #### [facility] [address] [address] [address] Taylor Garcia Neutrophils/100 WBC (Bld) 54.5 % Normal 43.0-75.0 [facility] Comment on above: Performed By: #### P OCGLUC #### [facility] [address] [address] [address] Taylor Garcia Platelet mean volume (Bld) [Entitic vol] 10.3 fL Normal 9.5-13.5 [facility] Comment on above: Performed By: #### P OCGLUC #### [facility] [address] [address] [address] Taylor Garcia PLT 113 103/ul Critically low 150-450 [facility] Comment on above: Performed By: #### P OCGLUC #### [facility] [address] [address] [address] Taylor Garcia RBC 4.42 106/ul Critically low 4.70-6.10 [facility] Comment on above: Performed By: #### P OCGLUC #### [facility] [address] [address] [address] Taylor Garcia WBC 5.2 103/ul Normal 4.0-11.0 [facility] Comment on above: Performed By: #### P OCGLUC #### [facility] [address] [address] [address] Taylor Garcia DIRECT LDLon 01-25-2023 Cholesterol in LDL [Mass/Vol] 108 mg/dL Normal [facility] Comment on above: Performed By: #### P OCGLUC #### [facility] [address] [address] [address] Taylor Garcia DLDL NORMAL SEE BELOW Normal [facility] Comment on above: Result Comment: <100 mg/dl OPTIMAL 100 - 129 mg/dl NEAR OR ABOVE OPTIMAL 130 - 159 mg/dl BORDERLINE HIGH 160 - 189 mg/dl HIGH >190 mg/dl VERY HIGH Performed By: #### P OCGLUC #### [facility] [address] [address] [address] Taylor Garcia LIPASEon 01-25-2023 Lipase [Catalytic activity/Vol] 91.0 U/L Normal 73.0-393.0 [facility] Comment on above: Performed By: #### P OCGLUC #### [facility] [address] [address] [address] Taylor Garcia LIPID PROFILEon 01-25-2023 CHOL-HDL RATIO NORM SEE BELOW Normal [facility] Comment on above: Result Comment: 3.3 - 4.4 LOW RISK 4.4 - 7.1 AVERAGE RISK 7.1 - 11.0 MODERATE RISK >11.0 HIGH RISK Performed By: #### P OCGLUC #### [facility] [address] [place] [address] Dr. Taylor Garcia Cholesterol [Mass/Vol] 299 mg/dL Critically high <=200 [facility] Comment on above: Performed By: #### P OCGLUC #### [facility] [address] [address] [address] Taylor Garcia Cholesterol in HDL [Mass/Vol] 22 mg/dL Critically low 40-60 [facility] Comment on above: Performed By: #### P OCGLUC #### [facility] [address] [place] [address] Dr. Taylor Garcia Cholesterol.total/Marge sterol in HDL [Mass ratio] 13.6 {ratio} Normal [facility] Comment on above: Performed By: #### P OCGLUC #### [facility] [address] [address] [address] Taylor Garcia HDL NORMAL > or = 60 mg/dl - LO W CARDIOVASCULAR RISK <40 mg/dl - HIGH CARDIOVASCULAR RISK Normal [facility] Comment on above: Performed By: #### P OCGLUC #### [facility] [address] [address] [address] Taylor Garcia Triglyceride [Mass/Vol] 798 mg/dL Critically high <=150 [facility] Comment on above: Performed By: #### P OCGLUC #### [facility] [address] [address] [address] Taylor Garcia VLDL CALC 159.6 mg/dL Normal [facility] Comment on above: Performed By: #### P OCGLUC #### [facility] [address] [address] [address] Taylor Garcia POINT OF CARE GLUCOSEon Glucose [Mass/Vol] 252 mg/dL Critically high 74-106 [facility] Comment on above: Performed By: #### P OCGLUC #### [facility] [address] [address] [address] Taylor Garcia Glucose [Mass/Vol] 181 mg/dL Critically high 74-106 [facility] Comment on above: Performed By: #### P OCGLUC #### [facility] [address] [place] [address] Dr. Taylor Garcia PROF 14(COMP METB)on 023 Albumin [Mass/Vol] 3.0 g/dL Critically low 3.4-5.0 [facility] Comment on above: Performed By: #### P OCGLUC #### [facility] [address] [place] [address] Dr. Taylor Gracia Albumin/Globulin [Mass ratio] 0.9 {ratio} Normal [facility] Comment on above: Performed By: #### P OCGLUC #### [facility] [address] [address] [address] Taylor Garcia ALP [Catalytic activity/Vol] 41 U/L Critically low 46-116 [facility] Comment on above: Performed By: #### P OCGLUC #### [facility] [address] [address] [address] Taylor Garcia ALT [Catalytic activity/Vol] 37 U/L Normal 16-63 [facility] Comment on above: Performed By: #### P OCGLUC #### [facility] [address] [place] [address] Dr. Taylor Garcia Anion gap [Moles/Vol] 16.0 mmol/L Normal [facility] Comment on above: Performed By: #### P OCGLUC #### [facility] [address] [address] [address] Taylor Garcia AST [Catalytic activity/Vol] 20 U/L Normal 15-37 [facility] Comment on above: Performed By: #### P OCGLUC #### [facility] [address] [address] [address] Taylor Garcia Bilirubin [Mass/Vol] 0.5 mg/dL Normal 0.2-1.0 [facility] Comment on above: Performed By: #### P OCGLUC #### [facility] [address] [address] [address] Taylor Garcia Calcium [Mass/Vol] 8.9 mg/dL Normal 8.5-10.1 [facility] Comment on above: Performed By: #### P OCGLUC #### [facility] [address] [address] [address] Taylor Garcia Chloride [Moles/Vol] 103 mmol/L Normal 98-107 [facility] Comment on above: Performed By: #### P OCGLUC #### [facility] [address] [address] [address] Taylor Garcia CO2 [Moles/Vol] 22.0 mmol/L Normal 21.0-32.0 [facility] Comment on above: Performed By: #### P OCGLUC #### [facility] [address] [address] [address] Taylor Garcia Creatinine [Mass/Vol] 0.65 mg/dL Critically low 0.70-1.30 [facility] Comment on above: Performed By: #### P OCGLUC #### [facility] [address] [address] [address] Taylor Garcia EGFR-AF MACANESE >60 Normal >=60 [facility] Comment on above: Performed By: #### P OCGLUC #### [facility] [address] [address] [address] Taylor Garcia EGFR-NON AF MACANESE >60 Normal >=60 [facility] Comment on above: Performed By: #### P OCGLUC #### [facility] [address] [address] [address] Taylor Garcia Globulin (S) [Mass/Vol] 3.3 g/dL Normal [facility] Comment on above: Performed By: #### P OCGLUC #### [facility] [address] [address] [address] Taylor Garcia Glucose [Mass/Vol] 198 mg/dL Critically high 74-106 [facility] Comment on above: Performed By: #### P OCGLUC #### [facility] [address] [address] [address] Taylor Garcia Potassium [Moles/Vol] 4.0 mmol/L Normal 3.5-5.1 [facility] Comment on above: Performed By: #### P OCGLUC #### [facility] [address] [address] [address] Taylor Garcia Protein [Mass/Vol] 6.3 g/dL Critically low 6.4-8.2 [facility] Comment on above: Performed By: #### P OCGLUC #### [facility] [address] [address] [address] Taylor Garcia Sodium [Moles/Vol] 137 mmol/L Normal 136-145 [facility] Comment on above: Performed By: #### P OCGLUC #### [facility] [address] [address] [address] Taylor Garcia Urea nitrogen [Mass/Vol] 9.0 mg/dL Normal 7.0-18.0 [facility] Comment on above: Performed By: #### P OCGLUC #### [facility] [address] [address] [address] Taylor Garcia Urea nitrogen/Creatinine [Mass ratio] 13.8 mg/mg Normal [facility] Comment on above: Performed By: #### P OCGLUC #### [facility] [address] [place] [address] Dr. Taylor Garcia Alanine aminotransferase [En zymatic activity/volume] in Serum or PlasmaOrdered By: Shaikh Swapnil on 01-24-2023 ALT [Catalytic activity/Vol] 30 U/L 7-52 [facility] Albumin [Mass/volume] in Ser um or Plasma by Bromocresol green (BCG) dye binding methoOrdered By: Shaikh Swapnil on 01-24-2023 Albumin BCG dye [Mass/Vol] 3.5 g/dL 3.5-5.7 [facility] Alkaline phosphatase [Enzyma tic activity/volume] in Serum or PlasmaOrdered By: Shaikh Swapnil on 01-24-2023 ALP [Catalytic activity/Vol] 38 U/L 34-104 [facility] Aspartate aminotransferase [ Enzymatic activity/volume] in Serum or PlasmaOrdered By: Shaikh Swapnil on 01-24-2023 AST [Catalytic activity/Vol] 17 U/L 13-39 [facility] Bilirubin.total [Mass/volume ] in Serum or PlasmaOrdered By: Shaikh Swapnil on 01-24-2023 Bilirubin [Mass/Vol] 0.6 mg/dL 0.3-1.0 [facility] CBC AUTO DIFFon 01-24-2023 BASO # 0.0 103/ul Normal 0.0-0.1 [facility] Comment on above: Performed By: #### P OCGLUC #### [facility] [address] [place] [address] Dr. Taylor Garcia Basophils/100 WBC (Bld) 0.4 % Normal 0.2-2.0 [facility] Comment on above: Performed By: #### P OCGLUC #### [facility] [address] [place] [address] Dr. Taylor Garcia EO # 0.1 103/ul Normal 0.0-0.7 [facility] Comment on above: Performed By: #### P OCGLUC #### [facility] [address] [address] [address] Taylor Garcia Eosinophils/100 WBC (Bld) 1.1 % Normal 0.9-7.0 [facility] Comment on above: Performed By: #### P OCGLUC #### [facility] [address] [address] [address] Taylor Garcia Erythrocyte distribution width (RBC) [Ratio] 12.7 % Normal 11.0-15.0 [facility] Comment on above: Performed By: #### P OCGLUC #### [facility] [address] [place] [address] Dr. Taylor Garcia Hematocrit (Bld) [Volume fraction] 37.3 % Critically low 42.0-54.0 [facility] Comment on above: Performed By: #### P OCGLUC #### [facility] [address] [place] [address] Dr. Taylor Garcia Hemoglobin (Bld) [Mass/Vol] 13.8 g/dL Critically low 14.0-18.0 [facility] Comment on above: Performed By: #### P OCGLUC #### [facility] [address] [place] [address] Dr. Taylor Garcia IG # 0.05 10e3/ul Critically high 0.00-0.03 [place] Comment on above: Performed By: #### P OCGLUC #### [facility] [address] [place] [address] Dr. Taylor Garcia IG % 0.7 % Critically high 0.0-0.5 [facility] Comment on above: Performed By: #### P OCGLUC #### [facility] [address] [place] [address] Dr. Taylor Garcia LYMPH # 1.6 103/ul Normal 1.2-3.8 [facility] Comment on above: Performed By: #### P OCGLUC #### [facility] [address] [place] [address] Dr. Taylor Garcia Lymphocytes/100 WBC (Bld) 22.8 % Normal 20.5-60.0 [facility] Comment on above: Performed By: #### P OCGLUC #### [facility] [address] [place] [address] Dr. Taylor Garcia MANUAL DIFF REQ NO Normal [facility] Comment on above: Performed By: #### P OCGLUC #### [facility] [address] [place] [address] Dr. Taylor Garcia MCH (RBC) [Entitic mass] 32.0 pg Normal 25.9-34.0 [facility] Comment on above: Performed By: #### P OCGLUC #### [facility] [address] [place] [address] Dr. Taylor Garcia MCHC (RBC) [Mass/Vol] 37.0 g/dL Critically high 29.9-35.2 [facility] Comment on above: Performed By: #### P OCGLUC #### [facility] [address] [place] [address] Dr. Taylor Garcia MCV (RBC) [Entitic vol] 86.5 fL Normal 80.0-94.0 [facility] Comment on above: Performed By: #### P OCGLUC #### [facility] [address] [place] [address] Dr. Taylor Garcia MONO # 0.6 103/ul Normal 0.3-0.8 [facility] Comment on above: Performed By: #### P OCGLUC #### [facility] [address] [place] [address] Dr. Taylor Garcia Monocytes/100 WBC (Bld) 8.2 % Normal 1.7-12.0 [facility] Comment on above: Performed By: #### P OCGLUC #### [facility] [address] [place] [address] Dr. Taylor Garcia NEUT # 4.8 103/ul Normal 1.4-6.5 [facility] Comment on above: Performed By: #### P OCGLUC #### [facility] [address] [place] [address] Dr. Taylor Garcia Neutrophils/100 WBC (Bld) 66.8 % Normal 43.0-75.0 [facility] Comment on above: Performed By: #### P OCGLUC #### [facility] [address] [place] [address] Dr. Taylor Garcia Platelet mean volume (Bld) [Entitic vol] 10.0 fL Normal 9.5-13.5 [facility] Comment on above: Performed By: #### P OCGLUC #### [facility] [address] [place] [address] Dr. Taylor Garcia PLT 109 103/ul Critically low 150-450 [facility] Comment on above: Performed By: #### P OCGLUC #### [facility] [address] [address] [address] Taylor Garcia RBC 4.31 106/ul Critically low 4.70-6.10 [facility] Comment on above: Performed By: #### P OCGLUC #### [facility] [address] [address] [address] Taylor Garcia WBC 7.2 103/ul Normal 4.0-11.0 [facility] Comment on above: Performed By: #### P OCGLUC #### [facility] [address] [address] [address] Taylor Garcia Calcium [Mass/volume] in Ser um or PlasmaOrdered By: Shaikh Swapnil on 01-24-2023 Calcium [Mass/Vol] 8.7 mg/dL 8.6-10.3 [facility] Carbon dioxide, total [Moles /volume] in Serum or PlasmaOrdered By: Shaikh Swapnil on 01-24-2023 CO2 [Moles/Vol] 19.8 mmol/L 21.0-31.0 [facility] Chloride [Moles/volume] in S emerson or PlasmaOrdered By: Shaikh Swapnil on 01-24-2023 Chloride [Moles/Vol] 105 mmol/L 98-107 [facility] Creatinine [Mass/volume] in Serum or PlasmaOrdered By: Shaikh Swapnil on 01-24-2023 Creatinine [Mass/Vol] 0.71 mg/dL 0.70-1.30 [facility] DIRECT LDLon 01-24-2023 Cholesterol in LDL [Mass/Vol] 73 mg/dL Normal [facility] Comment on above: Performed By: #### P OCGLUC #### [facility] [address] [address] [address] Taylor Garcia DLDL NORMAL SEE BELOW Normal [facility] Comment on above: Result Comment: <100 mg/dl OPTIMAL 100 - 129 mg/dl NEAR OR ABOVE OPTIMAL 130 - 159 mg/dl BORDERLINE HIGH 160 - 189 mg/dl HIGH >190 mg/dl VERY HIGH Performed By: #### P OCGLUC #### [facility] [address] [address] [address] Taylor Garcia GLYCOHEMOGLOBIN A1Con 2022 ADA RECOMMENDATION SEE BELOW Normal [facility] Comment on above: Result Comment: ADA RECOMMENDED LIMIT 4.0 - 6.0 ADA THERAPEUTIC TARGET < 7.0 ACTION SUGGESTED > 7.0 Performed By: #### P OCGLUC #### [facility] [address] [address] [address] Taylor Garcia Glucose [Mass/Vol] 280 mg/dL Normal [facility] Comment on above: Performed By: #### P OCGLUC #### [facility] [address] [address] [address] Taylor Garcia HbA1c (Bld) [Mass fraction] 11.4 % Critically high 4.5-6.2 [facility] Comment on above: Performed By: #### P OCGLUC #### [facility] [address] [address] [address] Taylor Garcia Globulin Calc (S) [Mass/Vol] Ordered By: Shaikh Swapnil on 01-24-2023 Globulin (S) [Mass/Vol] 2.3 g/dL [facility] Glucose [Mass/volume] in Ser um or PlasmaOrdered By: Shaikh Swapnil on 01-24-2023 Glucose [Mass/Vol] 165 mg/dL 70-100 [facility] Comment on above: ADA recommended refe rence rangeRandom Glucose Reference Range is dependent on time and content of last meal. Glucose of more than 200 mg/dL in a nonstressed, ambulatory subject supports the diagnosis of Diabetes Mellitus. LAB TESTINGon 01-24-2023 RECV HEADER SEE SCANNED REPORT I N HPF Normal [facility] Comment on above: Performed By: #### P OCGLUC #### [facility] [address] [address] [address] Taylor Garcia REV FROM REF LAB 01/24/2023 [facility] Comment on above: Performed By: #### P OCGLUC #### [facility] [address] [address] [address] Taylor Garcia SENT TO REF LAB 01/24/2023 Normal [facility] Comment on above: Performed By: #### P OCGLUC #### [facility] [address] [address] [address] Taylor Garcia LIPASEon 01-24-2023 Lipase [Catalytic activity/Vol] 97.0 U/L Normal 73.0-393.0 [facility] Comment on above: Performed By: #### P OCGLUC #### [facility] [address] [address] [address] Taylor Garcia LIPID PROFILEon 01-24-2023 CHOL-HDL RATIO NORM SEE BELOW Normal [facility] Comment on above: Result Comment: 3.3 - 4.4 LOW RISK 4.4 - 7.1 AVERAGE RISK 7.1 - 11.0 MODERATE RISK >11.0 HIGH RISK Performed By: #### P OCGLUC #### [facility] [address] [place] [address] Dr. Taylor Garcia Cholesterol [Mass/Vol] 296 mg/dL Critically high <=200 [facility] Comment on above: Performed By: #### P OCGLUC #### [facility] [address] [place] [address] Dr. Taylor Garcia Cholesterol in HDL [Mass/Vol] 26 mg/dL Critically low 40-60 [facility] Comment on above: Performed By: #### P OCGLUC #### [facility] [address] [address] [address] Taylor Garcia Cholesterol.total/Marge sterol in HDL [Mass ratio] 11.4 {ratio} Normal [facility] Comment on above: Performed By: #### P OCGLUC #### [facility] [address] [place] [address] Dr. Taylor Garcia HDL NORMAL > or = 60 mg/dl - LO W CARDIOVASCULAR RISK <40 mg/dl - HIGH CARDIOVASCULAR RISK Normal [facility] Comment on above: Performed By: #### P OCGLUC #### [facility] [address] [place] [address] Dr. Taylor Garcia LDL CALC NORMAL SEE BELOW Normal [facility] Comment on above: Result Comment: <100 mg/dl OPTIMAL 100 - 129 mg/dl NEAR OR ABOVE OPTIMAL 130 - 159 mg/dl BORDERLINE HIGH 160 - 189 mg/dl HIGH >190 mg/dl VERY HIGH Performed By: #### P OCGLUC #### [facility] [address] [address] [address] Taylro Garcia Triglyceride [Mass/Vol] 935 mg/dL Critically high <=150 [facility] Comment on above: Performed By: #### P OCGLUC #### [facility] [address] [address] [address] Taylor Garcia VLDL CALC 187.0 mg/dL Normal [facility] Comment on above: Performed By: #### P OCGLUC #### [facility] [address] [address] [address] Taylor Garcia Lipase [Enzymatic activity/v olume] in Serum or PlasmaOrdered By: Shaikh Swapnil on 01-24-2023 Lipase [Catalytic activity/Vol] 34.0 U/L 11.0-82.0 [facility] No Panel InformationOrdered By: Shaikh Swapnil on 01-24-2023 Estimated GFR (CKD-EPI) > 60.0 mL/Min [facility] Creatinine Clearance (Chem N/A [facility] POINT OF CARE GLUCOSEon 04-0 Glucose [Mass/Vol] 171 mg/dL Critically high 74-106 [facility] Comment on above: Performed By: #### P OCGLUC #### [facility] [address] [address] [address] Taylor Garcia Glucose [Mass/Vol] 168 mg/dL Critically high -106 [facility] Comment on above: Performed By: #### P OCGLUC #### [facility] [address] [address] [address] Taylor Garcia Glucose [Mass/Vol] 249 mg/dL Critically high -106 [facility] Comment on above: Performed By: #### P OCGLUC #### [facility] [address] [address] [address] Taylor Garcia Glucose [Mass/Vol] 126 mg/dL Critically high 74-106 [facility] Comment on above: Performed By: #### P OCGLUC #### [facility] [address] [address] [address] Taylor Garcia Glucose [Mass/Vol] 166 mg/dL Critically high 74-106 [facility] Comment on above: Performed By: #### P OCGLUC #### [facility] [address] [address] [address] Taylor Garcia Glucose [Mass/Vol] 157 mg/dL Critically high 74-106 [facility] Comment on above: Performed By: #### P OCGLUC #### [facility] [address] [address] [address] Taylor Garcia Glucose [Mass/Vol] 156 mg/dL Critically high 74-106 [facility] Comment on above: Performed By: #### P OCGLUC #### [facility] [address] [address] [address] Taylor Garcia Glucose [Mass/Vol] 97 mg/dL Normal 74-106 [facility] Comment on above: Performed By: #### P OCGLUC #### [facility] [address] [address] [address] Taylor Garcia Glucose [Mass/Vol] 84 mg/dL Normal 74-106 [facility] Comment on above: Performed By: #### P OCGLUC #### [facility] [address] [address] [address] Taylor Garcia Glucose [Mass/Vol] 74 mg/dL Normal 74-106 [facility] Comment on above: Performed By: #### P OCGLUC #### [facility] [address] [address] [address] Taylor Garcia Glucose [Mass/Vol] 79 mg/dL Normal 74-106 [facility] Comment on above: Performed By: #### P OCGLUC #### [facility] [address] [address] [address] Taylor Garcia Glucose [Mass/Vol] 117 mg/dL Critically high 74-106 [facility] Comment on above: Performed By: #### P OCGLUC #### [facility] [address] [address] [address] Taylor Garcia Glucose [Mass/Vol] 134 mg/dL Critically high -106 [facility] Comment on above: Performed By: #### P OCGLUC #### [facility] [address] [address] [address] Taylor Garcia Glucose [Mass/Vol] 163 mg/dL Critically high 74-106 [facility] Comment on above: Performed By: #### P OCGLUC #### [facility] [address] [address] [address] Taylor Garcia PROF CHEM 8 (BAS METB)on Anion gap [Moles/Vol] 14.4 mmol/L Normal [facility] Comment on above: Result Comment: test preformed at [facility] Performed By: #### P OCGLUC #### [facility] [address] [address] [address] Taylor Garcia Calcium [Mass/Vol] 8.9 mg/dL Normal 8.5-10.1 [facility] Comment on above: Result Comment: test preformed at [facility] Performed By: #### P OCGLUC #### [facility] [address] [address] [address] Taylor Garcia Chloride [Moles/Vol] 105 mmol/L Normal 98-107 [facility] Comment on above: Result Comment: test preformed at [facility] Performed By: #### P OCGLUC #### [facility] [address] [address] [address] Taylor Garcia CO2 [Moles/Vol] 20.2 mmol/L Critically low 21.0-32.0 [facility] Comment on above: Result Comment: test preformed at [facility] Performed By: #### P OCGLUC #### [facility] [address] [address] [address] Taylor Garcia Creatinine [Mass/Vol] 0.69 mg/dL Critically low 0.70-1.30 [facility] Comment on above: Result Comment: test preformed at [facility] Performed By: #### P OCGLUC #### [facility] [address] [address] [address] Taylor Garcia EGFR-AF MACANESE >60 Normal >=60 [facility] Comment on above: Performed By: #### P OCGLUC #### [facility] [address] [address] [address] Taylor Garcia EGFR-NON AF MACANESE >60 Normal >=60 [facility] Comment on above: Performed By: #### P OCGLUC #### [facility] [address] [address] [address] Taylor Garcia Glucose [Mass/Vol] 103 mg/dL Normal 74-106 [facility] Comment on above: Result Comment: test preformed at [facility] Performed By: #### P OCGLUC #### [facility] [address] [address] [address] Taylor Garcia Potassium [Moles/Vol] 3.6 mmol/L Normal 3.5-5.1 [facility] Comment on above: Result Comment: test preformed at [facility] Performed By: #### P OCGLUC #### [facility] [address] [address] [address] Taylor Garcia Sodium [Moles/Vol] 136 mmol/L Normal 136-145 [facility] Comment on above: Result Comment: test preformed at [facility] Performed By: #### P OCGLUC #### [facility] [address] [address] [address] Taylor Garcia Urea nitrogen [Mass/Vol] 6.0 mg/dL Critically low 7.0-18.0 [facility] Comment on above: Result Comment: test preformed at [facility] Performed By: #### P OCGLUC #### [facility] [address] [address] [address] Taylor Garcia Urea nitrogen/Creatinine [Mass ratio] 8.7 mg/mg Normal [facility] Comment on above: Performed By: #### P OCGLUC #### [facility] [address] [address] [address] Taylor Garcia Potassium [Moles/volume] in Serum or PlasmaOrdered By: Shaikh Swapnil on 01-24-2023 Potassium [Moles/Vol] 3.6 mmol/L 3.5-5.1 [facility] Protein [Mass/volume] in Ser um or PlasmaOrdered By: Shaikh Swapnil on 01-24-2023 Protein [Mass/Vol] 5.8 g/dL 6.4-8.9 [facility] Serum or plasma albumin/glob ulin mass ratioOrdered By: Shaikh Swapnil on 01-24-2023 Albumin/Globulin [Mass ratio] 1.5 {ratio} [facility] Serum or plasma anion gap de terminationOrdered By: Shaikh Swapnil on 01-24-2023 Anion gap [Moles/Vol] 13.8 mmol/L 6.0-15.0 [facility] Sodium [Moles/volume] in Ser um or PlasmaOrdered By: Shaikh Swapnil on 01-24-2023 Sodium [Moles/Vol] 135 mmol/L 136-145 [facility] Urea nitrogen [Mass/volume] in Serum or PlasmaOrdered By: Shaikh Swapnil on 01-24-2023 Urea nitrogen [Mass/Vol] 6 mg/dL 05-19 [facility] Alanine aminotransferase [En zymatic activity/volume] in Serum or PlasmaOrdered By: Shaikh Swapnil on 01-23-2023 ALT [Catalytic activity/Vol] 45 U/L [facility] Albumin [Mass/volume] in Ser um or Plasma by Bromocresol green (BCG) dye binding methoOrdered By: Shaikh Swapnil on 01-23-2023 Albumin BCG dye [Mass/Vol] 4.0 g/dL 3.5-5.7 [facility] Comment on above: Delta: 5.0 on Alkaline phosphatase [Enzyma tic activity/volume] in Serum or PlasmaOrdered By: Shaikh Swapnil on 01-23-2023 ALP [Catalytic activity/Vol] 40 U/L 34-104 [facility] Aspartate aminotransferase [ Enzymatic activity/volume] in Serum or PlasmaOrdered By: Shaikh Swapnil on 01-23-2023 AST [Catalytic activity/Vol] See comment 13-39 [facility] Comment on above: Specimen hemolyzed, redraw requested Bilirubin.total [Mass/volume ] in Serum or PlasmaOrdered By: Shaikh Swapnil on 01-23-2023 Bilirubin [Mass/Vol] 1.1 mg/dL 0.3-1.0 [facility] CBC AUTO DIFFon 01-23-2023 BASO # 0.0 103/ul Normal 0.0-0.1 [facility] Comment on above: Performed By: #### C BC #### [facility] [address] [place] [address] Dr. Taylor Garcia Basophils/100 WBC (Bld) 0.3 % Normal 0.2-2.0 [facility] Comment on above: Performed By: #### C BC #### [facility] [address] [place] [address] Dr. Taylor Garcia EO # 0.1 103/ul Normal 0.0-0.7 [facility] Comment on above: Performed By: #### C BC #### [facility] [address] [place] [address] Dr. Taylor Garcia Eosinophils/100 WBC (Bld) 0.6 % Critically low 0.9-7.0 [facility] Comment on above: Performed By: #### C BC #### [facility] [address] [place] [address] Dr. Taylor Garcia Erythrocyte distribution width (RBC) [Ratio] 12.8 % Normal 11.0-15.0 [facility] Comment on above: Performed By: #### C BC #### [facility] [address] [place] [address] Dr. Taylor Garcia Hematocrit (Bld) [Volume fraction] 38.1 % Critically low 42.0-54.0 [facility] Comment on above: Performed By: #### C BC #### [facility] [address] [address] [address] Taylor Garcia Hemoglobin (Bld) [Mass/Vol] 13.3 g/dL Critically low 14.0-18.0 [facility] Comment on above: Performed By: #### C BC #### [facility] [address] [place] [address] Dr. Taylor Garcia IG # 0.07 10e3/ul Critically high 0.00-0.03 [place] Comment on above: Performed By: #### C BC #### [facility] [address] [place] [address] Dr. Taylor Garcia IG % 0.7 % Critically high 0.0-0.5 [facility] Comment on above: Performed By: #### C BC #### [facility] [address] [place] [address] Dr. Taylor Garcia LYMPH # 1.8 103/ul Normal 1.2-3.8 [facility] Comment on above: Performed By: #### C BC #### [facility] [address] [place] [address] Dr. Taylor Garcia Lymphocytes/100 WBC (Bld) 16.6 % Critically low 20.5-60.0 [facility] Comment on above: Performed By: #### C BC #### [facility] [address] [place] [address] Dr. Taylor Garcia MANUAL DIFF REQ NO Normal [facility] Comment on above: Performed By: #### C BC #### [facility] [address] [place] [address] Dr. Taylor Garcia MCH (RBC) [Entitic mass] 30.2 pg Normal 25.9-34.0 [facility] Comment on above: Performed By: #### C BC #### [facility] [address] [place] [address] Dr. Taylor Garcia MCHC (RBC) [Mass/Vol] 34.9 g/dL Normal 29.9-35.2 [facility] Comment on above: Performed By: #### C BC #### [facility] [address] [place] [address] Dr. Taylor Garcia MCV (RBC) [Entitic vol] 86.6 fL Normal 80.0-94.0 [facility] Comment on above: Performed By: #### C BC #### [facility] [address] [place] [address] Dr. Taylor Garcia MONO # 0.7 103/ul Normal 0.3-0.8 [facility] Comment on above: Performed By: #### C BC #### [facility] [address] [place] [address] Dr. Taylor Garcia Monocytes/100 WBC (Bld) 6.9 % Normal 1.7-12.0 [facility] Comment on above: Performed By: #### C BC #### [facility] [address] [place] [address] Dr. Taylor Garcia NEUT # 7.9 103/ul Critically high 1.4-6.5 [facility] Comment on above: Performed By: #### C BC #### [facility] [address] [place] [address] Dr. Taylor Garcia Neutrophils/100 WBC (Bld) 74.9 % Normal 43.0-75.0 [facility] Comment on above: Performed By: #### C BC #### [facility] [address] [place] [address] Dr. Taylor Garcia Platelet mean volume (Bld) [Entitic vol] 10.8 fL Normal 9.5-13.5 [facility] Comment on above: Performed By: #### C BC #### [facility] [address] [place] [address] Dr. Taylor Garcia PLT 123 103/ul Critically low 150-450 [facility] Comment on above: Performed By: #### C BC #### [facility] [address] [place] [address] Dr. Taylor Garcia RBC 4.40 106/ul Critically low 4.70-6.10 [facility] Comment on above: Performed By: #### C BC #### [facility] [address] [place] [address] Dr. Taylor Garcia WBC 10.6 103/ul Normal 4.0-11.0 [facility] Comment on above: Performed By: #### C BC #### [facility] [address] [address] [address] Taylor Garcia Calcium [Mass/volume] in Ser um or PlasmaOrdered By: Shaikh Swapnil on 01-23-2023 Calcium [Mass/Vol] 8.9 mg/dL 8.6-10.3 [facility] Carbon dioxide, total [Moles /volume] in Serum or PlasmaOrdered By: Shaikh Swapnil on 01-23-2023 CO2 [Moles/Vol] 21.8 mmol/L 21.0-31.0 [facility] Chloride [Moles/volume] in S emerson or PlasmaOrdered By: Shaikh Swapnil on 01-23-2023 Chloride [Moles/Vol] 103 mmol/L Normal 98-107 [facility] Comment on above: Performed By: #### P OCGLUC #### [facility] [address] [address] [address] Taylor Garcia Creatinine [Mass/volume] in Serum or PlasmaOrdered By: Shaikh Swapnil on 01-23-2023 Creatinine [Mass/Vol] 0.63 mg/dL 0.70-1.30 [facility] DIRECT LDLon 01-23-2023 Cholesterol in LDL [Mass/Vol] 67 mg/dL Normal [facility] Comment on above: Performed By: #### P OCGLUC #### [facility] [address] [address] [address] Taylor Garcia DLDL NORMAL SEE BELOW Normal [facility] Comment on above: Result Comment: <100 mg/dl OPTIMAL 100 - 129 mg/dl NEAR OR ABOVE OPTIMAL 130 - 159 mg/dl BORDERLINE HIGH 160 - 189 mg/dl HIGH >190 mg/dl VERY HIGH Performed By: #### P OCGLUC #### [facility] [address] [address] [address] Taylor Garcia GLYCOHEMOGLOBIN A1Con 2022 ADA RECOMMENDATION SEE BELOW Normal [facility] Comment on above: Result Comment: ADA RECOMMENDED LIMIT 4.0 - 6.0 ADA THERAPEUTIC TARGET < 7.0 ACTION SUGGESTED > 7.0 Performed By: #### P OCGLUC #### [facility] [address] [address] [address] Taylor Garcia Glucose [Mass/Vol] 266 mg/dL Normal [facility] Comment on above: Performed By: #### P OCGLUC #### [facility] [address] [address] [address] Taylor Garcia HbA1c (Bld) [Mass fraction] 10.9 % Critically high 4.5-6.2 [facility] Comment on above: Performed By: #### P OCGLUC #### [facility] [address] [address] [address] Taylor Garcia Globulin Calc (S) [Mass/Vol] Ordered By: Shaikh Swapnil on 01-23-2023 Globulin (S) [Mass/Vol] 2.5 g/dL [facility] Glucose [Mass/volume] in Ser um or PlasmaOrdered By: Shaikh Swapnil on 01-23-2023 Glucose [Mass/Vol] 193 mg/dL 70-100 [facility] Comment on above: Delta: 65 on 3-1635ADA recommended reference rangeRandom Glucose Reference Range is dependent on time and content of last meal. Glucose of more than 200 mg/dL in a nonstressed, ambulatory subject supports the diagnosis of Diabetes Mellitus. LIPID PROFILEon 01-23-2023 CHOL-HDL RATIO NORM SEE BELOW Normal [facility] Comment on above: Result Comment: 3.3 - 4.4 LOW RISK 4.4 - 7.1 AVERAGE RISK 7.1 - 11.0 MODERATE RISK >11.0 HIGH RISK Performed By: #### P OCGLUC #### [facility] [address] [place] [address] Dr. Taylor Garcia Cholesterol [Mass/Vol] 320 mg/dL Critically high <=200 [facility] Comment on above: Performed By: #### P OCGLUC #### [facility] [address] [address] [address] Tyalor Garcia Cholesterol in HDL [Mass/Vol] 27 mg/dL Critically low 40-60 [facility] Comment on above: Performed By: #### P OCGLUC #### [facility] [address] [address] [address] Taylor Garcia Cholesterol.total/Marge sterol in HDL [Mass ratio] 11.9 {ratio} Normal [facility] Comment on above: Performed By: #### P OCGLUC #### [facility] [address] [address] [address] Taylor Garcia HDL NORMAL > or = 60 mg/dl - LO W CARDIOVASCULAR RISK <40 mg/dl - HIGH CARDIOVASCULAR RISK Normal [facility] Comment on above: Performed By: #### P OCGLUC #### [facility] [address] [address] [address] Taylor Garcia Triglyceride [Mass/Vol] 1599 mg/dL Critically high <=150 [facility] Comment on above: Performed By: #### P OCGLUC #### [facility] [address] [address] [address] Taylor Garcia VLDL CALC 319.8 mg/dL Normal [facility] Comment on above: Performed By: #### P OCGLUC #### [facility] [address] [address] [address] Taylor Garcia No Panel InformationOrdered By: Shaikh Swapnil on 01-23-2023 Estimated GFR (CKD-EPI) > 60.0 mL/Min [facility] Creatinine Clearance (Chem N/A [facility] POINT OF CARE GLUCOSEon - Glucose [Mass/Vol] 224 mg/dL Critically high 74-106 [facility] Comment on above: Performed By: #### P OCGLUC #### [facility] [address] [address] [address] Taylor Garcia Glucose [Mass/Vol] 142 mg/dL Critically high 74-106 [facility] Comment on above: Performed By: #### P OCGLUC #### [facility] [address] [address] [address] Taylor Garcia Glucose [Mass/Vol] 102 mg/dL Normal 74-106 [facility] Comment on above: Performed By: #### P OCGLUC #### [facility] [address] [address] [address] Taylor Garcia Glucose [Mass/Vol] 100 mg/dL Normal 74-106 [facility] Comment on above: Performed By: #### P OCGLUC #### [facility] [address] [address] [address] Taylor Garcia Glucose [Mass/Vol] 84 mg/dL Normal 74-106 [facility] Comment on above: Performed By: #### P OCGLUC #### [facility] [address] [address] [address] Taylor Garcia Glucose [Mass/Vol] 72 mg/dL Critically low 74-106 [facility] Comment on above: Performed By: #### P OCGLUC #### [facility] [address] [address] [address] Taylor Garcia Glucose [Mass/Vol] 69 mg/dL Critically low 74-106 [facility] Comment on above: Performed By: #### P OCGLUC #### [facility] [address] [address] [address] Taylor Garcia Glucose [Mass/Vol] 78 mg/dL Normal 74-106 [facility] Comment on above: Performed By: #### P OCGLUC #### [facility] [address] [address] [address] Taylor Garcia Glucose [Mass/Vol] 114 mg/dL Critically high 74-106 [facility] Comment on above: Performed By: #### P OCGLUC #### [facility] [address] [address] [address] Taylor Garcia Glucose [Mass/Vol] 185 mg/dL Critically high 74-106 [facility] Comment on above: Performed By: #### P OCGLUC #### [facility] [address] [address] [address] Taylor Garcia Glucose [Mass/Vol] 230 mg/dL Critically high 74-106 [facility] Comment on above: Performed By: #### P OCGLUC #### [facility] [address] [address] [address] Taylor Garcia Glucose [Mass/Vol] 253 mg/dL Critically high 74-106 [facility] Comment on above: Performed By: #### P OCGLUC #### [facility] [address] [address] [address] Taylor Garcia PROF CHEM 8 (BAS METB)on Anion gap [Moles/Vol] 13.1 mmol/L Normal [facility] Comment on above: Performed By: #### P OCGLUC #### [facility] [address] [address] [address] Taylor Garcia Calcium [Mass/Vol] 8.9 mg/dL Normal 8.5-10.1 [facility] Comment on above: Performed By: #### P OCGLUC #### [facility] [address] [address] [address] Taylor Garcia Chloride [Moles/Vol] 103 mmol/L Normal 98-107 [facility] Comment on above: Performed By: #### P OCGLUC #### [facility] [address] [address] [address] Taylor Garcia CO2 [Moles/Vol] 21.8 mmol/L Normal 21.0-32.0 [facility] Comment on above: Performed By: #### P OCGLUC #### [facility] [address] [address] [address] Taylor Garcia Creatinine [Mass/Vol] 0.63 mg/dL Critically low 0.70-1.30 [facility] Comment on above: Performed By: #### P OCGLUC #### [facility] [address] [address] [address] Taylor Garcia EGFR-AF MACANESE >60 Normal >=60 [facility] Comment on above: Performed By: #### P OCGLUC #### [facility] [address] [address] [address] Taylor Garcia EGFR-NON AF MACANESE >60 Normal >=60 [facility] Comment on above: Performed By: #### P OCGLUC #### [facility] [address] [address] [address] Taylor Garcia Glucose [Mass/Vol] 193 mg/dL Critically high 74-106 [facility] Comment on above: Performed By: #### P OCGLUC #### [facility] [address] [address] [address] Taylor Garcia Potassium [Moles/Vol] 3.9 mmol/L Normal 3.5-5.1 [facility] Comment on above: Performed By: #### P OCGLUC #### [facility] [address] [address] [address] Taylor Garcia Sodium [Moles/Vol] 134 mmol/L Critically low 136-145 [facility] Comment on above: Performed By: #### P OCGLUC #### [facility] [address] [address] [address] Taylor Garcia Urea nitrogen [Mass/Vol] 6.0 mg/dL Critically low 7.0-18.0 [facility] Comment on above: Performed By: #### P OCGLUC #### [facility] [address] [address] [address] Taylor Garcia Urea nitrogen/Creatinine [Mass ratio] 9.5 mg/mg Normal [facility] Comment on above: Performed By: #### P OCGLUC #### [facility] [address] [address] [address] Taylor Garcia Anion gap [Moles/Vol] 12.8 mmol/L Normal [facility] Comment on above: Performed By: #### P OCGLUC #### [facility] [address] [address] [address] Taylor Garcia Calcium [Mass/Vol] 9.2 mg/dL Normal 8.5-10.1 [facility] Comment on above: Performed By: #### P OCGLUC #### [facility] [address] [address] [address] Taylor Garcia CO2 [Moles/Vol] 22.6 mmol/L Normal 21.0-32.0 [facility] Comment on above: Performed By: #### P OCGLUC #### [facility] [address] [address] [address] Taylor Garcia Creatinine [Mass/Vol] 0.72 mg/dL Normal 0.70-1.30 [facility] Comment on above: Performed By: #### P OCGLUC #### [facility] [address] [address] [address] Taylor Garcia Glucose [Mass/Vol] 65 mg/dL Critically low 74-106 [facility] Comment on above: Performed By: #### P OCGLUC #### [facility] [address] [address] [address] Taylor Garcia Potassium [Moles/Vol] 3.4 mmol/L Critically low 3.5-5.1 [facility] Comment on above: Performed By: #### P OCGLUC #### [facility] [address] [address] [address] Taylor Garcia Sodium [Moles/Vol] 135 mmol/L Critically low 136-145 [facility] Comment on above: Performed By: #### P OCGLUC #### [facility] [address] [address] [address] Taylor Garcia Urea nitrogen [Mass/Vol] 7.0 mg/dL Normal 7.0-18.0 [facility] Comment on above: Performed By: #### P OCGLUC #### [facility] [address] [address] [address] Taylor Garcia Urea nitrogen/Creatinine [Mass ratio] 9.7 mg/mg Normal [facility] Comment on above: Performed By: #### P OCGLUC #### [facility] [address] [address] [address] Taylor Garcia Potassium [Moles/volume] in Serum or PlasmaOrdered By: Shaikh Swapnil on 01-23-2023 Potassium [Moles/Vol] 3.9 mmol/L 3.5-5.1 [facility] Comment on above: Hemolysis is present at a level that could interfere with the result. Protein [Mass/volume] in Ser um or PlasmaOrdered By: Shaikh Swapnil on 01-23-2023 Protein [Mass/Vol] 6.5 g/dL 6.4-8.9 [facility] Serum or plasma albumin/glob ulin mass ratioOrdered By: Shaikh Swapnil on 01-23-2023 Albumin/Globulin [Mass ratio] 1.6 {ratio} [facility] Serum or plasma anion gap de terminationOrdered By: Shaikh Swapnil on 01-23-2023 Anion gap [Moles/Vol] 13.1 mmol/L 6.0-15.0 [facility] Sodium [Moles/volume] in Ser um or PlasmaOrdered By: Shaikh Swapnil on 01-23-2023 Sodium [Moles/Vol] 134 mmol/L 136-145 [facility] Urea nitrogen [Mass/volume] in Serum or PlasmaOrdered By: Shaikh Swapnil on 01-23-2023 Urea nitrogen [Mass/Vol] 6 mg/dL 7-25 [facility] Alanine aminotransferase [En zymatic activity/volume] in Serum or PlasmaOrdered By: NON STAFF on 01-22-2023 ALT [Catalytic activity/Vol] 75 U/L 7-52 [facility] Albumin [Mass/volume] in Ser um or Plasma by Bromocresol green (BCG) dye binding methoOrdered By: NON STAFF on 01-22-2023 Albumin BCG dye [Mass/Vol] 5.0 g/dL 3.5-5.7 [facility] Alkaline phosphatase [Enzyma tic activity/volume] in Serum or PlasmaOrdered By: NON STAFF on 01-22-2023 ALP [Catalytic activity/Vol] 60 U/L 34-104 [facility] Aspartate aminotransferase [ Enzymatic activity/volume] in Serum or PlasmaOrdered By: NON STAFF on 01-22-2023 AST [Catalytic activity/Vol] 22 U/L 13-39 [facility] Bilirubin.total [Mass/volume ] in Serum or PlasmaOrdered By: NON STAFF on 01-22-2023 Bilirubin [Mass/Vol] 1.1 mg/dL 0.3-1.0 [facility] CBC AUTO DIFFon 01-22-2023 BASO # 0.1 103/ul Normal 0.0-0.1 [facility] Comment on above: Performed By: #### P OCGLUC #### [facility] [address] [address] [address] Taylor Garcia Basophils/100 WBC (Bld) 0.4 % Normal 0.2-2.0 [facility] Comment on above: Performed By: #### P OCGLUC #### [facility] [address] [address] [address] Taylor Garcia EO # 0.0 103/ul Normal 0.0-0.7 [facility] Comment on above: Performed By: #### P OCGLUC #### [facility] [address] [address] [address] Taylor Garcia Eosinophils/100 WBC (Bld) 0.2 % Critically low 0.9-7.0 [facility] Comment on above: Performed By: #### P OCGLUC #### [facility] [address] [place] [address] Dr. Taylor Garcia Erythrocyte distribution width (RBC) [Ratio] 12.4 % Normal 11.0-15.0 [facility] Comment on above: Performed By: #### P OCGLUC #### [facility] [address] [address] [address] Taylor Garcia Hematocrit (Bld) [Volume fraction] 44.1 % Normal 42.0-54.0 [facility] Comment on above: Performed By: #### P OCGLUC #### [facility] [address] [address] [address] Taylor Garcia Hemoglobin (Bld) [Mass/Vol] 16.9 g/dL Normal 14.0-18.0 [facility] Comment on above: Performed By: #### P OCGLUC #### [facility] [address] [address] [address] Taylor Garcia IG # 0.11 10e3/ul Critically high 0.00-0.03 [place] Comment on above: Performed By: #### P OCGLUC #### [facility] [address] [address] [address] Taylor Garcia IG % 0.8 % Critically high 0.0-0.5 [facility] Comment on above: Performed By: #### P OCGLUC #### [facility] [address] [address] [address] Taylor Garcia LYMPH # 1.3 103/ul Normal 1.2-3.8 [facility] Comment on above: Performed By: #### P OCGLUC #### [facility] [address] [address] [address] Taylor Garcia Lymphocytes/100 WBC (Bld) 9.7 % Critically low 20.5-60.0 [facility] Comment on above: Performed By: #### P OCGLUC #### [facility] [address] [address] [address] Taylor Garcia MANUAL DIFF REQ NO Normal [facility] Comment on above: Performed By: #### P OCGLUC #### [facility] [address] [address] [address] Taylor Garcia MCH (RBC) [Entitic mass] 32.1 pg Normal 25.9-34.0 [facility] Comment on above: Performed By: #### P OCGLUC #### [facility] [address] [address] [address] Taylor Garcia MCHC (RBC) [Mass/Vol] 38.3 g/dL Critically high 29.9-35.2 [facility] Comment on above: Performed By: #### P OCGLUC #### [facility] [address] [address] [address] Taylor Garcia MCV (RBC) [Entitic vol] 83.8 fL Normal 80.0-94.0 [facility] Comment on above: Performed By: #### P OCGLUC #### [facility] [address] [address] [address] Taylor Garcia MONO # 0.9 103/ul Critically high 0.3-0.8 [facility] Comment on above: Performed By: #### P OCGLUC #### [facility] [address] [address] [address] Taylor Garcia Monocytes/100 WBC (Bld) 6.7 % Normal 1.7-12.0 [facility] Comment on above: Performed By: #### P OCGLUC #### [facility] [address] [address] [address] Taylor Garcia NEUT # 11.1 103/ul Critically high 1.4-6.5 [facility] Comment on above: Performed By: #### P OCGLUC #### [facility] [address] [address] [address] Taylor Garcia Neutrophils/100 WBC (Bld) 82.2 % Critically high 43.0-75.0 [facility] Comment on above: Performed By: #### P OCGLUC #### [facility] [address] [place] [address] Dr. Taylor Garcia Platelet mean volume (Bld) [Entitic vol] 9.6 fL Normal 9.5-13.5 [facility] Comment on above: Performed By: #### P OCGLUC #### [facility] [address] [place] [address] Dr. Taylor Garcia PLT 161 103/ul Normal 150-450 [facility] Comment on above: Performed By: #### P OCGLUC #### [facility] [address] [place] [address] Dr. Taylor Garcia RBC 5.54 106/ul Normal 4.70-6.10 [facility] Comment on above: Performed By: #### P OCGLUC #### [facility] [address] [place] [address] Dr. Taylor Garcia WBC 13.5 103/ul Critically high 4.0-11.0 [facility] Comment on above: Performed By: #### P OCGLUC #### [facility] [address] [place] [address] ABD/PELVIS WO CONon 01-22 CT ABD/PELVIS WO CON EXAMINATION: CT ABD/PELVIS WO CON, 01/22/2023 2:49 PM EDT HISTORY: Abdominal pain COMPARISON: None. TECHNIQUE: CT scan of the abdomen and pelvis was performed without IV contrast. CT dose reduction technique was used, including Automated Exposure Control. FINDINGS: Lung bases: Mild, dependent opacities at the lung bases have appearance most suggestive of atelectasis. GI upper: Unremarkable. Liver: Normal size and contour. Gallbladder: No significant abnormality. No cholelithiasis. Biliary system: No intra or extrahepatic biliary ductal dilatation. Spleen: Splenomegaly, measuring 22 cm in craniocaudal dimension. Pancreas: There is peripancreatic fat stranding, seen at the pancreatic tail and distal pancreatic body, likely representing acute pancreatitis. Adrenal glands: Normal adrenal glands. Kidneys/ureters: Normal contours. No hydronephrosis. No nephrolithiasis or ureterolithiasis. Vessels: No aneurysm. Lymph Nodes: No lymphadenopathy. Small bowel: No wall thickening or dilatation. Colon: No wall thickening or dilatation. Appendix: No findings of appendicitis. Peritoneal cavity: No free fluid or pneumoperitoneum. Lower : Unremarkable. Bones: No acute bony abnormality. Soft tissues: No acute finding. Additional findings: None. IMPRESSION: CT evidence of acute pancreatitis involving the distal pancreatic body and tail. Correlation with amylase and lipase is recommended. Splenomegaly. Electronically authenticated by: BRIGITTE BROWN Date: 2023-01-22 16:08 Normal [facility] CULTURE BLOODon 01-22-2023 Microscopic examination of blood, culture Culture Observations: NO GROWTH AT 5 DAYS. Isolate 1 BC_BA_NA Normal [facility] Comment on above: Performed By: #### P OCGLUC #### [facility] [address] [address] [address] Taylor Garcia Microscopic examination of blood, culture Culture Observations: NO GROWTH AT 5 DAYS. Isolate 1 BC_BA_NA Normal [facility] Comment on above: Performed By: #### P OCGLUC #### [facility] [address] [address] [address] Taylor Garcia Calcium [Mass/volume] in Ser um or PlasmaOrdered By: NON STAFF on 01-22-2023 Calcium [Mass/Vol] 9.9 mg/dL 8.6-10.3 [facility] Carbon dioxide, total [Moles /volume] in Serum or PlasmaOrdered By: NON STAFF on 01-22-2023 CO2 [Moles/Vol] 21.5 mmol/L 21.0-31.0 [facility] Chloride [Moles/volume] in S emerson or PlasmaOrdered By: NON STAFF on 01-22-2023 Chloride [Moles/Vol] 95 mmol/L 98-107 [facility] Covid-19 PCR (CVDTBH)on 12-26 SARS-CoV-2 (COVID-19) RNA HEIDY+probe Ql (Unsp spec) Not detected Normal NOT DETECTED [facility] Comment on above: Result Comment: When diagnostic testing is negative, the possibility of a false negative should be considered in the context of a patient's recent exposures and the presence of clinical signs and symptoms consistent with SARS-CoV-2. This test is not yet approved or cleared by the [place] FDA. When there are no FDA-approved or cleared tests available, and other criteria are met, FDA can make tests available under an emergency access mechanism called an Emergency Use Authorization (EUA). The EUA for this test is supported by the [place] of Health and Human Service's declaration that circumstances exist to justify the emergency use of in vitro diagnostics for the detection and/or diagnosis of the virus that causes COVID-19. This EUA will remain in effect for the duration of the COVID-19 declaration justifying emergency of IVDs, unless it is terminated or revoked by the FDA (after which the test may no longer be used). Performed By: #### P OCGLUC #### [facility] [address] [place] [address] Dr. Taylor Garcia Creatinine [Mass/volume] in Serum or PlasmaOrdered By: NON STAFF on 01-22-2023 Creatinine [Mass/Vol] 0.94 mg/dL 0.70-1.30 [facility] DIRECT LDLon 01-22-2023 Cholesterol in LDL [Mass/Vol] 137 mg/dL Normal [facility] Comment on above: Performed By: #### P OCGLUC #### [facility] [address] [address] [address] Taylor Garcia DLDL NORMAL SEE BELOW Normal [facility] Comment on above: Result Comment: <100 mg/dl OPTIMAL 100 - 129 mg/dl NEAR OR ABOVE OPTIMAL 130 - 159 mg/dl BORDERLINE HIGH 160 - 189 mg/dl HIGH >190 mg/dl VERY HIGH Performed By: #### P OCGLUC #### [facility] [address] [address] [address] Taylor Garcia ER URINE PROFILEon 3 Bilirubin Ql (U) Negative Normal NEGATIVE [facility] Comment on above: Performed By: #### P OCGLUC #### [facility] [address] [address] [address] Taylor Garcia Clarity (U) CLEAR Normal CLEAR [facility] Comment on above: Performed By: #### P OCGLUC #### [facility] [address] [address] [address] Taylor Garcia Color (U) LT. YELLOW Normal YELLOW [facility] Comment on above: Performed By: #### P OCGLUC #### [facility] [address] [place] [address] Dr. Taylor PEPPER A micrscopic examination will be performed if indicated. Normal [facility] Comment on above: Performed By: #### P OCGLUC #### [facility] [address] [address] [address] Taylor Garcia Glucose Ql (U) 500 mg/dl Abnormal NEGATIVE [facility] Comment on above: Performed By: #### P OCGLUC #### [facility] [address] [place] [address] Dr. Taylor Garcia Hemoglobin Ql (U) TRACE-INTACT Abnormal NEGATIVE [facility] Comment on above: Performed By: #### P OCGLUC #### [facility] [address] [place] [address] Dr. Taylor Garcia Ketones Ql (U) >=80 Abnormal NEGATIVE [facility] Comment on above: Performed By: #### P OCGLUC #### [facility] [address] [place] [address] Dr. Taylor Garcia LEUKOCYTES Negative Normal NEGATIVE [facility] Comment on above: Performed By: #### P OCGLUC #### [facility] [address] [place] [address] Dr. Taylor Garcia Nitrite Ql (U) Negative Normal NEGATIVE [facility] Comment on above: Performed By: #### P OCGLUC #### [facility] [address] [address] [address] Taylor Garcia pH (U) 5.5 [pH] Normal 5-9 [facility] Comment on above: Performed By: #### P OCGLUC #### [facility] [address] [address] [address] Taylor Garcia Protein (U) [Mass/Vol] 30 mg/dL Abnormal NEGAT BRIDGET/ TRACE [facility] Comment on above: Performed By: #### P OCGLUC #### [facility] [address] [address] [address] Taylor Garcia SPEC GRAVITY 1.025 Normal 1.005-<=1.02 5 [facility] Comment on above: Performed By: #### P OCGLUC #### [facility] [address] [address] [address] Taylor Garcia UR MICRO IND INDICATED Normal [facility] Comment on above: Performed By: #### P OCGLUC #### [facility] [address] [place] [address] Dr. Taylor Garcia Urobilinogen Qn (U) 0.2 {Sheridan'U}/dL Normal 0.2 - 1. 0 [facility] Comment on above: Performed By: #### P OCGLUC #### [facility] [address] [address] [address] Taylor Garcia Globulin Calc (S) [Mass/Vol] Ordered By: NON STAFF on 01-22-2023 Globulin (S) [Mass/Vol] 2.6 g/dL [facility] Glucose [Mass/volume] in Ser um or PlasmaOrdered By: NON STAFF on 01-22-2023 Glucose [Mass/Vol] 331 mg/dL 70-100 [facility] Comment on above: ADA recommended refe rence rangeRandom Glucose Reference Range is dependent on time and content of last meal. Glucose of more than 200 mg/dL in a nonstressed, ambulatory subject supports the diagnosis of Diabetes Mellitus. LIPID PROFILEon 01-22-2023 CHOL-HDL RATIO NORM SEE BELOW Normal [facility] Comment on above: Result Comment: 3.3 - 4.4 LOW RISK 4.4 - 7.1 AVERAGE RISK 7.1 - 11.0 MODERATE RISK >11.0 HIGH RISK Performed By: #### P OCGLUC #### [facility] [address] [address] [address] Taylor Garcia Cholesterol [Mass/Vol] 380 mg/dL Critically high <=200 [facility] Comment on above: Performed By: #### P OCGLUC #### [facility] [address] [address] [address] Taylor Garcia Cholesterol in HDL [Mass/Vol] 33 mg/dL Critically low 40-60 [facility] Comment on above: Performed By: #### P OCGLUC #### [facility] [address] [address] [address] Taylor Garcia Cholesterol.total/Marge sterol in HDL [Mass ratio] 11.5 {ratio} Normal [facility] Comment on above: Performed By: #### P OCGLUC #### [facility] [address] [address] [address] Taylor Garcia HDL NORMAL > or = 60 mg/dl - LO W CARDIOVASCULAR RISK <40 mg/dl - HIGH CARDIOVASCULAR RISK Normal [facility] Comment on above: Performed By: #### P OCGLUC #### [facility] [address] [address] [address] Taylor Garcai LDL CALC NORMAL SEE BELOW Normal [facility] Comment on above: Result Comment: <100 mg/dl OPTIMAL 100 - 129 mg/dl NEAR OR ABOVE OPTIMAL 130 - 159 mg/dl BORDERLINE HIGH 160 - 189 mg/dl HIGH >190 mg/dl VERY HIGH Performed By: #### P OCGLUC #### [facility] [address] [address] [address] Taylor Garcia Triglyceride [Mass/Vol] 4548 mg/dL Critically high <=150 [facility] Comment on above: Performed By: #### P OCGLUC #### [facility] [address] [address] [address] Taylor Garcia VLDL CALC 909.6 mg/dL Normal [facility] Comment on above: Performed By: #### P OCGLUC #### [facility] [address] [address] [address] Taylor Garcia Lactate [Moles/volume] in Se rum or PlasmaOrdered By: NON STAFF on 01-22-2023 Lactate [Moles/Vol] 1.0 mmol/L 0.5-2.2 [facility] Lipase [Enzymatic activity/v olume] in Serum or PlasmaOrdered By: NON STAFF on 01-22-2023 Lipase [Catalytic activity/Vol] 112.0 U/L 11.0-82.0 [facility] No Panel InformationOrdered By: NON STAFF on 01-22-2023 Estimated GFR (CKD-EPI) > 60.0 mL/Min [facility] Creatinine Clearance (Chem N/A [facility] POINT OF CARE GLUCOSEon 12-26 Glucose [Mass/Vol] 523 mg/dL Critically high 74-106 [facility] Comment on above: Result Comment: Will Repeat Test Performed By: #### P OCGLUC #### [facility] [address] [address] [address] Taylor Garcia Potassium [Moles/volume] in Serum or PlasmaOrdered By: NON STAFF on 01-22-2023 Potassium [Moles/Vol] 4.1 mmol/L 3.5-5.1 [facility] Protein [Mass/volume] in Ser um or PlasmaOrdered By: NON STAFF on 01-22-2023 Protein [Mass/Vol] 7.6 g/dL 6.4-8.9 [facility] Serum or plasma albumin/glob ulin mass ratioOrdered By: NON STAFF on 01-22-2023 Albumin/Globulin [Mass ratio] 1.9 {ratio} [facility] Serum or plasma anion gap de terminationOrdered By: NON STAFF on 01-22-2023 Anion gap [Moles/Vol] 20.6 mmol/L 6.0-15.0 [facility] Sodium [Moles/volume] in Ser um or PlasmaOrdered By: NON STAFF on 01-22-2023 Sodium [Moles/Vol] 133 mmol/L 136-145 [facility] URINE MICROSCOPIC ONLYon BACTERIA NONE SEEN Normal NONE SEEN [facility] Comment on above: Performed By: #### P OCGLUC #### [facility] [address] [place] [address] Dr. Taylor Garcia Bacteria identified Cx Nom (U) NOT INDICATED Normal [facility] Comment on above: Performed By: #### P OCGLUC #### [facility] [address] [address] [address] Taylor Garcia CAST NONE SEEN Normal NONE SEEN [facility] Comment on above: Performed By: #### P OCGLUC #### [facility] [address] [place] [address] Dr. Taylor Garcia Crystals LM Nom (Urine sed) NONE SEEN Normal NONE SEEN [facility] Comment on above: Performed By: #### P OCGLUC #### [facility] [address] [place] [address] Dr. Taylor Garcia Epithelial cells LM Ql (Urine sed) NONE SEEN Normal NONE SEEN /RARE [facility] Comment on above: Performed By: #### P OCGLUC #### [facility] [address] [place] [address] Dr. Taylor Garcia MUCOUS NONE SEEN Normal NONE SEEN [facility] Comment on above: Performed By: #### P OCGLUC #### [facility] [address] [place] [address] Dr. Taylor Garcia RBC 0-2 Normal 0-2 [facility] Comment on above: Performed By: #### P OCGLUC #### [facility] [address] [place] [address] Dr. Taylor Garcia WBC 0-2 Abnormal NONE SEEN [facility] Comment on above: Performed By: #### P OCGLUC #### [facility] [address] [place] [address] Dr. Taylor Garcia Urea nitrogen [Mass/volume] in Serum or PlasmaOrdered By: NON STAFF on 01-22-2023 Urea nitrogen [Mass/Vol] 10 mg/dL 05-19 [facility] XR CHEST 1 Von 01-22-2023 XR CHEST 1 V EXAMINATION: XR CHES T 1 V HISTORY: Abdominal pain COMPARISON: No relevant comparison available. TECHNIQUE: Portable FINDINGS: LUNGS: No significant pulmonary parenchymal abnormalities. Low lung volumes VASCULATURE: No increased pulmonary vasculature. PLEURA: No pneumothorax, effusion, or pleural thickening. CARDIAC: No cardiomegaly or cardiac silhouette abnormality. MEDIASTINUM: No visible mass or adenopathy. BONES: No fracture or visible bone lesion. OTHER: Negative. IMPRESSION: Low volume exam, clear lungs Electronically authenticated by: CÉSAR SALES Date: 2023-01-22 14:40 Normal [facility] XR FOOT LEFT (MIN 3 VIEWS)on 04-23-2022 XR FOOT LEFT (MIN 3 VIEWS) EXAMINATION: THREE XRAY VIEWS OF THE LEFT FOOT 04/21/2022 6:39 am COMPARISON: None HISTORY: ORDERING SYSTEM PROVIDED HISTORY: foot pain TECHNOLOGIST PROVIDED HISTORY: foot pain Reason for Exam: Pain in lateral aspect of left foot s/p fall x1 day Initial encounter FINDINGS: Linear lucency is noted within the distal cuboid. No other acute fracture or dislocation. Joint spaces and alignment are maintained. Soft tissues are unremarkable. IMPRESSION: Linear lucency is noted within the distal cuboid suspicious for an acute nondisplaced fracture. Interpreted by: Rimma Nunn MD Signed by: Rimma Nunn MD 04/23/22 Final result Normal [facility] Hemoglobin A1Con 04-22-2022 Glucose [Mass/Vol] 97 mg/dL Normal [facility] Comment on above: Result Comment: The ADA and AACC recommend providing the estimated average glucose result to permit better patient understanding of their HBA1c result. Performed By: #### L IPR #### [facility] [address] [place] [address] Top Stitcher: Yogesh Lehman DO #### GLYHGB #### [facility] [place] [address] Top Stitcher: Frank Otero MD HbA1c (Bld) [Mass fraction] 5.0 % Normal 4.0-6.0 [facility] Comment on above: Performed By: #### L IPR #### [facility] [address] [place] [address] Top Stitcher: Yogesh Lehman DO #### GLYHGB #### [facility] [address] [place] [address] Top Stitcher: Frank Otero MD Lipid Profileon 04-22-2022 Cholesterol [Mass/Vol] 161 mg/dL Normal <200 [facility] Comment on above: Result Comment: Cholesterol Guidelines: <200 Desirable 200-240 Borderline >240 Undesirable Performed By: #### L IPR #### [facility] [address] [place] [address] Top Stitcher: Yogesh Lehman DO #### GLYHGB #### [address] [address] Top Stitcher: Frank Otero MD Cholesterol in HDL [Mass/Vol] 26 mg/dL Low >40 [facility] Comment on above: Result Comment: HDL Guidelines: <40 Undesirable 40-59 Borderline >59 Desirable Performed By: #### L IPR #### [facility] [address] [place] [address] Top Stitcher: Yogesh Lehman DO #### GLYHGB #### [address] [address] Top Stitcher: Frank Otero MD Cholesterol in LDL [Mass/Vol] 83 mg/dL Normal 0-130 [facility] Comment on above: Result Comment: LDL Guidelines: <100 Desirable 100-129 Near to/above Desirable 130-159 Borderline >159 Undesirable Direct (measured) LDL and calculated LDL are not interchangeable tests. Performed By: #### L IPR #### [facility] [address] [place] [address] Top Stitcher: Yogesh Lehman DO #### GLYHGB #### [address] [address] Top Stitcher: Frank Otero MD Cholesterol.total/Marge sterol in HDL [Mass ratio] 6.2 {ratio} High <5 [facility] Comment on above: Performed By: #### L IPR #### [facility] [place] [address] Top Stitcher: Yogesh Lehman DO #### GLYHGB #### [address] [address] Top Stitcher: Frank Otero MD Triglyceride [Mass/Vol] 260 mg/dL High <150 [facility] Comment on above: Result Comment: Triglyceride Guidelines: <150 Desirable 150-199 Borderline 200-499 High >499 Very high Based on AHA Guidelines for fasting triglyceride, July 2012. Performed By: #### L IPR #### [facility] [address] [place] [id number] Top Stitcher: Yogesh Lehman DO #### GLYHGB #### [address] [address] Top Stitcher: Frank Otero MD CBC with Diffon 04-21-2022 Abs. Basophil 0.00 k/uL Normal 0.0-0.2 [facility] Comment on above: Performed By: #### A LCB, CDP, CMPX #### [facility] [address] [place] [address] Top Stitcher: Yogesh Lehman DO Abs.Neutrophil (Seg) 4.60 k/uL Normal 1.3-9.1 [facility] Comment on above: Performed By: #### A LCB, CDP, CMPX #### [facility] [address] [place] [id number] Top Stitcher: Yogesh Lehman DO Basophils/100 WBC (Bld) 1 % Normal 0-2 [facility] Comment on above: Performed By: #### A LCB, CDP, CMPX #### [facility] [address] [place] [address] Top Stitcher: Yogesh Lehman DO Eosinophils (Bld) [#/Vol] 0.10 10*3/uL Normal 0.0-0.4 [facility] Comment on above: Performed By: #### A MARA SCHAEFER, CMPX #### [facility] [address] [place] [address] Top Stitcher: Yogesh Lehman DO Eosinophils/100 WBC (Bld) 1 % Normal 0-4 [facility] Comment on above: Performed By: #### A MARA SCHAEFER, CMPX #### [facility] [place] [address] Top Stitcher: Yogesh Lehman DO Erythrocyte distribution width (RBC) [Ratio] 13.2 % Normal 11.5-14.9 [facility] Comment on above: Performed By: #### A MARA SCHAEFER, CMPX #### [facility] [address] [place] [address] Top Stitcher: Yogesh Lehman DO Hematocrit (Bld) [Volume fraction] 50.0 % Normal 41-53 [facility] Comment on above: Performed By: #### A MARA SCHAEFER, CMPX #### [facility] [address] [place] [address] Top Stitcher: Yogesh Lehman DO Hemoglobin (Bld) [Mass/Vol] 18.0 g/dL High 13.5-17.5 [facility] Comment on above: Performed By: #### A SILVANO, MARA, CMPX #### [facility] [address] [place] [address] Top Stitcher: Yogesh Lehman DO Lymphocytes (Bld) [#/Vol] 2.00 10*3/uL Normal 1.0-4.8 [facility] Comment on above: Performed By: #### A SILVANO, MARA, CMPX #### [facility] [place] [address] Top Stitcher: Yogesh Lehman DO Lymphocytes/100 WBC (Bld) 29 % Normal 25-45 [facility] Comment on above: Performed By: #### A LCB, CDP, CMPX #### [facility] [place] [address] Top Stitcher: Yogesh eLhman DO MCH (RBC) [Entitic mass] 32.3 pg Normal 26-34 [facility] Comment on above: Performed By: #### A SILVANO, MARA, CMPX #### [facility] [address] [place] [address] Top Stitcher: Yogesh Lehman DO MCHC (RBC) [Mass/Vol] 36.1 g/dL Normal 31-37 [facility] Comment on above: Performed By: #### A SILVANO, MARA, CMPX #### [facility] [address] [place] [address] Top Stitcher: Yogesh Lehman DO MCV (RBC) [Entitic vol] 89.6 fL Normal 80-100 [facility] Comment on above: Performed By: #### A MARA SCHAEFER, CMPX #### [facility] [address] [place] [address] Top Stitcher: Yogesh Lehman DO Monocytes (Bld) [#/Vol] 0.40 10*3/uL Normal 0.1-1.3 [facility] Comment on above: Performed By: #### A SILVANO, CDP, CMPX #### [facility] [address] [place] [address] Top Stitcher: Yogesh Lehman DO Monocytes/100 WBC (Bld) 5 % Normal 2-8 [facility] Comment on above: Performed By: #### A LCB, CDP, CMPX #### [facility] [address] [facility] [place] [id number] Top Stitcher: Yogesh Lehman DO Neutrophil (Seg) 64 % Normal 34-64 [facility] Comment on above: Performed By: #### A SILVANO, CDP, CMPX #### [facility] [address] [place] [address] Top Stitcher: Yogesh Lehman DO Platelet mean volume (Bld) [Entitic vol] 7.9 fL Normal 6.0-12.0 [facility] Comment on above: Performed By: #### A SILVANO, MARA, CMPX #### [facility] [address] [place] [address] Top Stitcher: Yogesh Lehman DO Platelets (Bld) [#/Vol] 213 10*3/uL Normal 150-450 [facility] Comment on above: Performed By: #### A MARA SCHAEFER, CMPX #### [facility] [place] [address] Top Stitcher: Yogesh Lehman DO RBC (Bld) [#/Vol] 5.58 10*6/uL Normal 4.5-5.9 [facility] Comment on above: Performed By: #### A SILVANO, MARA, CMPX #### [facility] [address] [place] [address] Top Stitcher: Yogesh Lehman DO WBC (Bld) [#/Vol] 7.1 10*3/uL Normal 4.5-13.5 [facility] Comment on above: Performed By: #### A SILVANO, CDP, CMPX #### [facility] [address] [place] [address] Top Stitcher: Yogesh Lehman DO Comp Metabolic Pr/rfx MGon 0 04-21-2022 ALT [Catalytic activity/Vol] U/L Low 5-41 [facility] Comment on above: Performed By: #### A MARA SCHAEFER, CMPX #### [facility] [address] [place] [address] Top Stitcher: Yogesh Lehman DO (cont.) Normal [facility] Comment on above: Result Comment: Aver age GFR for 20-29 years old: 116 mL/min/1.73sq m Chronic Kidney Disease: <60 mL/min/1.73sq m Kidney failure: <15 mL/min/1.73sq m eGFR calculated using average adult body mass. Additional eGFR calculator available at: http://www.ShopIt/multiple_crcl_2011.htm Performed By: #### A MARA SCHAEFER, CMPX #### [facility] [place] [address] Top Stitcher: Yogesh Lehman DO Albumin [Mass/Vol] 4.9 g/dL Normal 3.5-5.2 [facility] Comment on above: Performed By: #### A MARA SCHAEFER CMPX #### [facility] [place] [address] Top Stitcher: Yogesh Lehman DO Alkaline Phos 50 U/L Normal 40-129 [facility] Comment on above: Performed By: #### A MARA SCHAEFER, CMPX #### [facility] [address] [place] [address] Top Stitcher: Yogesh Lehman DO Anion gap [Moles/Vol] 11 mmol/L Normal 9-17 [facility] Comment on above: Performed By: #### A MARA SCHAEFER, CMPX #### [facility] [place] [address] Top Stitcher: Yogesh Lehman DO AST [Catalytic activity/Vol] 21 U/L Normal <40 [facility] Comment on above: Performed By: #### A SILVANO, MARA, CMPX #### [facility] [place] [address] Top Stitcher: Yogesh Lehman DO Bilirubin [Mass/Vol] 0.71 mg/dL Normal 0.3-1.2 [facility] Comment on above: Performed By: #### A SILVANO, CDP, CMPX #### [facility] [place] [address] Top Stitcher: Yogseh Lehman DO Calcium [Mass/Vol] 9.6 mg/dL Normal 8.6-10.4 [facility] Comment on above: Performed By: #### A MARA SCHAEFER, CMPX #### [facility] [address] [place] [address]. [place] [address] Top Stitcher: Yogesh Lehman DO Chloride [Moles/Vol] 101 mmol/L Normal 98-107 [facility] Comment on above: Performed By: #### A MARA SCHAEFER, CMPX #### [facility] [address] [place] [address] Top Stitcher: Yogesh Lehman DO CO2 [Moles/Vol] 26 mmol/L Normal 20-31 [facility] Comment on above: Performed By: #### A SILVANO, MARA, CMPX #### [facility] [address] [place] [address] Top Stitcher: Yogesh Lehman DO Creatinine [Mass/Vol] 1.12 mg/dL Normal 0.70-1.20 [facility] Comment on above: Performed By: #### A SILVANO, CDP, CMPX #### [facility] [address] [place] [address]. [place] [address] Top Stitcher: Fanelly, Yogesh, DO GFR, Amer >60 Normal >60 [facility] Comment on above: Performed By: #### A MARA SCHAEFER, CMPX #### [facility] [address] [facility] [place] [address] Top Stitcher: Yogesh Lehman DO GFR,non Amer >60 Normal >60 [facility] Comment on above: Performed By: #### A MARA SCHAEFER, CMPX #### [facility] [address] [facility] [place] [address] Top Stitcher: Yogesh Lehman DO Glucose [Mass/Vol] 118 mg/dL High 70-99 [facility] Comment on above: Performed By: #### A MARA SCHAEFER, CMPX #### [facility] [address] [facility] [place] [address] Top Stitcher: Yogesh Lehman DO Potassium [Moles/Vol] 4.1 mmol/L Normal 3.7-5.3 [facility] Comment on above: Performed By: #### A MARA SCHAEFER, CMPX #### [facility] [place] [address] Top Stitcher: Yogesh Lehman DO Protein [Mass/Vol] 7.6 g/dL Normal 6.4-8.3 [facility] Comment on above: Performed By: #### A MARA SCHAEFER, CMPX #### [facility] [address] [facility] [place] [address] Top Stitcher: Yogesh Lehman DO Sodium [Moles/Vol] 138 mmol/L Normal 135-144 [facility] Comment on above: Performed By: #### A MARA SCHAEFER, CMPX #### [facility] [address] [facility] [place] [address] Top Stitcher: Yogesh Lehman DO Urea nitrogen [Mass/Vol] 18 mg/dL Normal 6-20 [facility] Comment on above: Performed By: #### A LCB, CDP, CMPX #### [facility] [address] [place] [address] Top Stitcher: Yogesh Lehman DO Drug Scr, Abuse, Uron 2021 Amphetamine(s),Ur Negative Normal NEG [facility] Comment on above: Result Comment: (Positive cutoff 1000 ng/mL) Performed By: #### U AMIC, BRANDIN #### [facility] [address] [place] [address] Top Stitcher: Yogesh Lehman DO Barbiturate(s),Ur Negative Normal NEG [facility] Comment on above: Result Comment: (Positive cutoff 200 ng/mL) Performed By: #### U AMIC, BRANDIN #### [facility] [address] [place] [address] Top Stitcher: Yogesh Lehman DO Benzodiazepine(s) Negative Normal NEG [facility] Comment on above: Result Comment: (Positive cutoff 200 ng/mL) Performed By: #### U AMIC, BRANDIN #### [facility] [address] [place] [address] Top Stitcher: Yogesh Lehman DO Cannabinoid(s),Ur Positive Abnormal NEG [facility] Comment on above: Result Comment: (Positive cutoff 50 ng/mL) Performed By: #### U AMIC, BRANDIN #### [facility] [address] [place] [address] Top Stitcher: Yogesh Lehman DO Cocaine Metabolite Negative Normal NEG [facility] Comment on above: Result Comment: (Positive cutoff 300 ng/mL) Performed By: #### U AMIC, BRANDIN #### [facility] [address] [place] [address] Top Stitcher: Yogesh Lehman DO Interpretive Info Assay provides medical screening only. The absence of expected drug(s) and/or Normal [facility] Comment on above: Result Comment: meta bolite(s) may indicate diluted or adulterated urine, limitations of testing or timing of collection. Testing for legal purposes should be confirmed by another method. To request confirmation of test result, please call the lab within 7 days of sample submission. Performed By: #### U AMIC, BRANDIN #### [facility] [address] [place] [address] Top Stitcher: Yogesh Lehman DO Methadone Ql (U) Negative Normal NEG [facility] Comment on above: Result Comment: (Positive cutoff 300 ng/mL) Performed By: #### U AMIC, BRANDIN #### [facility] [address] [place] [address] Top Stitcher: Yogesh Lheman DO Opiate(s), Ur Negative Normal NEG [facility] Comment on above: Result Comment: (Positive cutoff 300 ng/mL) Performed By: #### U AMIC, BRANDIN #### [facility] [address] [place] [address] Top Stitcher: Yogesh Lehman DO Oxycodone, Urine Negative Normal NEG [facility] Comment on above: Result Comment: (Positive cutoff 100 ng/mL) Performed By: #### U AMIC, BRANDIN #### [facility] [address] [place] [address] Top Stitcher: Yogesh Lehman DO Phencyclidine, Ur Negative Normal NEG [facility] Comment on above: Result Comment: (Positive cutoff 25 ng/mL) Performed By: #### U AMIC, BRANDIN #### [facility] [address] [place] [address] Top Stitcher: Yogesh Lehman DO Ethanol Alcoholon 04-21-2022 Ethanol [Mass/Vol] mg/dL Normal <10 [facility] Comment on above: Performed By: #### A MARA SCHAEFER, CMPX #### [facility] [address] [place] [address] Top Stitcher: Yogesh Lehman DO Ethanol percent <0.010 Normal [facility] Comment on above: Performed By: #### A MARA SCHAEFER, CMPX #### [facility] [address] [place] [address] Top Stitcher: Yogesh Lehman DO Urinalysis w/ Microon 2021 Bacteria None Normal NONE [facility] Comment on above: Performed By: #### U AMIC, BRANDIN #### [facility] [address] [place] [address] Top Stitcher: Yogesh Lehman DO Bilirubin, SemiQt,Ur Negative Normal NEG [facility] Comment on above: Performed By: #### U AMIC, BRANDIN #### [facility] [address] [place] [address] Top Stitcher: Yogesh Lehman DO Blood, Urine Negative Normal NEG [facility] Comment on above: Performed By: #### U AMIC, BRANDIN #### [facility] [address] [place] [address] Top Stitcher: Yogesh Lehman DO Casts 0 TO 2 Normal [facility] Comment on above: Performed By: #### U AMIC, BRANDIN #### [facility] [address] [place] [address] Top Stitcher: Yogesh Lehman DO Clarity (U) Turbid Abnormal CLEAR [facility] Comment on above: Performed By: #### U AMIC, BRANDIN #### [facility] [address] [place] [address] Top Stitcher: Yogesh Lehman DO Color (U) Yellow Normal YEL [facility] Comment on above: Performed By: #### U AMIDaniel, BRANDIN #### [facility] [address] [place] [address] Top Stitcher: Yogesh Lehman DO Epithelial cells LM Ql (Urine sed) 0 TO 2 Normal [facility] Comment on above: Performed By: #### U AMIDaniel, BRANDIN #### [facility] [address] [place] [address] Top Stitcher: Yogesh Lehman DO Glucose Ql (U) Negative Normal NEG [facility] Comment on above: Performed By: #### U CHANNING, BRANDIN #### [facility] [address] [place] [address] Top Stitcher: Yogesh Lehman DO Ketones Ql (U) TRACE Abnormal NEG [facility] Comment on above: Performed By: #### U CHANNING, BRANDIN #### [facility] [address] [place] [address] Top Stitcher: Yogesh Lehman DO Leukocyte esterase Test strip Ql (U) Negative Normal NEG [facility] Comment on above: Performed By: #### U AMIDaniel, BRANDIN #### [facility] [address] [place] [address] Top Stitcher: Yogesh Lehman DO Nitrite,Ur Negative Normal NEG [facility] Comment on above: Performed By: #### U AMIDaniel, BRANDIN #### [facility] [address] [place] [address] Top Stitcher: Yogesh Lehman DO PH,Ur 7.0 Normal 5.0-8.0 [facility] Comment on above: Performed By: #### U AMIC, BRANDIN #### [facility] [address] [place] [address] Top Stitcher: Yogesh Lehman DO Protein Ql (U) Negative Normal NEG [facility] Comment on above: Performed By: #### U AMIC, BRANDIN #### [facility] [address] [place] [address] Top Stitcher: Yogesh Lehman DO Spec. Darby,Ur 1.025 Normal 1.000-1.030 [facility] Comment on above: Performed By: #### U AMIDaniel, BRANDIN #### [facility] [address] [place] [address] Top Stitcher: Yogesh Lehman DO Urine RBC's 0 TO 2 Normal [facility] Comment on above: Performed By: #### U AMIDaniel, BRANDIN #### [facility] [address] [place] [address] Top Stitcher: Yogesh Lehman DO Urine WBC's 0 TO 2 Normal [facility] Comment on above: Performed By: #### U AMIC, BRANDIN #### [facility] [address] [place] [address] Top Stitcher: Yogesh Lehman DO Urobilinogen,Ur Normal Normal NORM [facility] Comment on above: Performed By: #### U AMIC, BRANDIN #### [facility] [address] [place] [address] Top Stitcher: Yogesh Lehman DO Miscel, [facility] 08-09 Send Out Report SEE NOTE Normal [facility] Comment on above: Result Comment: (NOT E) Test name Result Flag Units RefIntvl Metformin Quantitative, Serum or Plasma 0.93 mcg/mL Serum Reporting Limit: 0.10 mcg/mL Synonym(s): Glucophage(R) Therapeutic range: Approximately 1 - 2 mcg/mL. Metformin associated lactic acidosis generally has been associated with Metformin plasma concentrations exceeding 5 mcg/mL. Analysis by High Performance Liquid Chromatography/ Tandem Mass Spectrometry (LC-MS/MS) This test was developed and its performance characteristics determined by [facility]. It has not been cleared or approved by the [place] Food and Drug Administration. Testing performed at [facility] [address] [place] [id number] CLIA [id number] Performed By: #### A DEBBYZO #### [facility] [address] [place] [address] Top Stitcher: Kodak Akbar MD #### FELICIA BUNN LIP, CDP #### [address] [address] Top Stitcher: Frank Otero MD GADon 08-03-2020 AUGIE <5.0 Normal 0.0-5.0 [facility] Comment on above: Result Comment: (NOT E) INTERPRETIVE INFORMATION: Glutamic Acid Decarboxylase Antibody A value greater than 5.0 IU/mL is considered positive for Glutamic Acid Decarboxylase Antibody (AUGIE Ab). This assay is intended for the semi-quantitative determination of the AUGIE Ab in human serum. Results should be interpreted within the context of clinical symptoms. Performed By: [facility] [address] [place] [address] Blasting Gang Miner: Zayda Ospina MD Performed By: #### A TRAZO #### [facility] [address] [place] [address] Top Stitcher: Kodak Akbar MD #### CMPKatalina, EDTOX, LIP, CDP #### [facility] [address] [address] Top Stitcher: Frank Otero MD AUGIE-65 AUTOANTIBODYon 2019 Glutamic Acid Decarb Ab <5.0 [place] Comment on above: (NOTE) INTERPRETIVE INFORMATION: Glutamic Acid Decarboxylase Antibody A value greater than 5.0 IU/mL is considered positive for Glutamic Acid Decarboxylase Antibody (AUGIE Ab). This assay is intended for the semi-quantitative determination of the AUGIE Ab in human serum. Results should be interpreted within the context of clinical symptoms. Performed By: [facility] [address] [place] [address] Blasting Gang Miner: Zayda Ospina MD Hemoglobin A1Con 08-03-2020 Glucose [Mass/Vol] 203 mg/dL [place], [place] Comment on above: The ADA and AACC rec ommend providing the estimated average glucose result to permit better patient understanding of their HBA1c result. HbA1c (Bld) [Mass fraction] 8.7 % High 4 - 6 % [place], [place] Interpretation and review of laboratory results Abnormal [place] POC Glucose Fingerstickon Glucose [Mass/Vol] 205 mg/dL High 75 - 110 mg/dL [place] Interpretation and review of laboratory results Abnormal [place] TRAZADONEon 08-03-2020 Trazadone 1.62 ug/mL 0.5 - 2.5 ug/mL [place], [place] Comment on above: (NOTE) INTERPRETIVE INFORMATION: Trazodone Therapeutic Range: 0.50 - 2.50 ug/mL Toxic: Greater than 4.00 ug/mL Adverse effects may include sedation, fatigue, headache, blurred vision and nausea. See Compliance Statement B: [employer] Performed By: [facility] [address] [place], [place] [id number] Blasting Gang Miner: Zayda Ospina MD Trazadoneon 08-03-2020 TRAZOA >6.00 High 0.50-2.50 [facility] Comment on above: Result Comment: (NOT E) INTERPRETIVE INFORMATION: Trazodone Therapeutic Range: 0.50 - 2.50 ug/mL Toxic: Greater than 4.00 ug/mL Adverse effects may include sedation, fatigue, headache, blurred vision and nausea. See Compliance Statement B: [employer] Performed By: [facility] [address] [place] [address] Blasting Gang Miner: Zayda Ospina MD Performed By: #### A TRAZO #### [address] [address] Top Stitcher: Kodak Akbar MD #### CMPX, EDTOX, LIP, CDP #### [address] [phone] Top Stitcher: Frank Otero MD TRAZOA 1.62 ug/mL Normal 0.50-2.50 [facility] Comment on above: Result Comment: (NOT E) INTERPRETIVE INFORMATION: Trazodone Therapeutic Range: 0.50 - 2.50 ug/mL Toxic: Greater than 4.00 ug/mL Adverse effects may include sedation, fatigue, headache, blurred vision and nausea. See Compliance Statement B: [employer]/ Performed By: [facility] [employer] [address] [place] [address] Blasting Gang Miner: Zayda Ospina MD Performed By: #### A TRAZO #### [address] [address] Top Stitcher: Kodak Akbar MD #### CMPX, EDTOX, LIP, CDP #### [address] [address] Top Stitcher: Frank Otero MD Basic Metab w/rfx MGon 08-01 (cont.) Normal [facility] Comment on above: Result Comment: Aver age GFR for <20 years old not available. Chronic Kidney Disease: <60 mL/min/1.73sq m Kidney failure: <15 mL/min/1.73sq m eGFR calculated using average adult body mass. Additional eGFR calculator available at: http://www.Cayo-Tech.com/multiple_crcl_2012.htm Performed By: #### A TRAZO #### [facility] [address] [place] [address] Top Stitcher: Kodak Akbar MD #### CMPX, EDTOX, LIP, CDP #### [address] [place] [address] Top Stitcher: Frank Otero MD GFR,non Amer Pediatric GFR requires additional information. Refer to NKDEP website for Normal >60 [facility] Comment on above: Result Comment: calc ulator. Performed By: #### A TRAZO #### [facility] [address] [place] [address] Top Stitcher: Kodak Akbar MD #### CMPX, EDTOX, LIP, CDP #### [facility] [address] [place] [address] Top Stitcher: Frank Otero MD BUN/CRE Ratio NOT REPORTED Normal 07-15 [facility] Comment on above: Performed By: #### A TRAZO #### [facility] [address] [place] [address] Top Stitcher: Kodak Akbar MD #### CMPX, EDTOX, LIP, CDP #### [facility] [address] [place] [address] Top Stitcher: Frank Otero MD GFR, Amer NOT REPORTED Normal >60 [facility] Comment on above: Performed By: #### A TRAZO #### [facility] [address] [place] [address] Top Stitcher: Kodak Akbar MD #### CMPX, EDTOX, LIP, CDP #### [facility] [address] [place] [address] Top Stitcher: Frank Otero MD Staging: NOT REPORTED Normal [facility] Comment on above: Performed By: #### A TRAZO #### [facility] [address] [place] [address] Top Stitcher: Kodak Akbar MD #### CMPX, EDTOX, LIP, CDP #### [facility] [address] [place] [address] [phone] Top Stitcher: Frank Otero MD Anion gap [Moles/Vol] 13 mmol/L Normal 9-17 [place], [place] Comment on above: Performed By: #### A TRAZO #### [facility] [address] [place] [address] Top Stitcher: Kodak Akbar MD #### CMPX, EDTOX, LIP, CDP #### [address] [phone] Top Stitcher: Frank Otero MD Calcium [Mass/Vol] 9.3 mg/dL Normal 8.6-10.4 [place], [place] Comment on above: Performed By: #### A TRAZO #### [facility] [address] [place], [place] [id number] Top Stitcher: Kodak Akbar MD #### CMPX, EDTOX, LIP, CDP #### [address] [phone] Top Stitcher: Frank Otero MD Chloride [Moles/Vol] 104 mmol/L Normal 98-107 [place], [place] Comment on above: Performed By: #### A TRAZO #### [facility] [address] [place], [place] [id number] Top Stitcher: Kodak Akbar MD #### CMPX, EDTOX, LIP, CDP #### [address] [phone] Top Stitcher: Frank Otero MD CO2 [Moles/Vol] 23 mmol/L Normal 20-31 [place], [place] Comment on above: Performed By: #### A TRAZO #### [facility] [address] [place], [place] [phone] Top Stitcher: Kodak Akbar MD #### CMPX, EDTOX, LIP, CDP #### [address] [phone] Top Stitcher: Frank Otero MD Creatinine [Mass/Vol] 0.92 mg/dL Normal 0.70-1.20 [place], [place] Comment on above: Performed By: #### A TRAZO #### [facility] [address] [place] [address] Top Stitcher: Kodak Akbar MD #### CMPX, EDTOX, LIP, CDP #### [facility] [address] [place] [address] [phone] Top Stitcher: Frank Otero MD Glucose [Mass/Vol] 185 mg/dL High 70-99 [place], [place] Comment on above: Performed By: #### A TRAZO #### [facility] [address] [place], [place] [id number] Top Stitcher: Kodak Akbar MD #### CMPX, EDTOX, LIP, CDP #### [address] [phone] Top Stitcher: Frank Otero MD Potassium [Moles/Vol] 4.1 mmol/L Normal 3.7-5.3 [place], [place] Comment on above: Performed By: #### A TRAZO #### [facility] [address] [place], [place] [phone] Top Stitcher: Kodak Akbar MD #### CMPX, EDTOX, LIP, CDP #### [address] [phone] Top Stitcher: Frank Otero MD Sodium [Moles/Vol] 140 mmol/L Normal 135-144 [place], [place] Comment on above: Performed By: #### A TRAZO #### [facility] [address] [place], [place] [phone] Top Stitcher: Kodak Akbar MD #### CMPX, EDTOX, LIP, CDP #### [address] [phone] Top Stitcher: Frank Otero MD Urea nitrogen [Mass/Vol] 12 mg/dL Normal 6-20 [place], [place] Comment on above: Performed By: #### A TRAZO #### [facility] [address] [place], [place] [id number] Top Stitcher: Kodak Akbar MD #### CMPX, EDTOX, LIP, CDP #### [address] [phone] Top Stitcher: Frank Otero MD CBC with Diffon 08-01-2020 Abs. Basophil 0.05 k/uL Normal 0.00-0.20 [facility] Comment on above: Performed By: #### A TRAZO #### [facility] [address] [place] [address] [phone] Top Stitcher: Kodak Akbar MD #### CMPX, EDTOX, LIP, CDP #### [address] [phone] Top Stitcher: Frank Otero MD Abs.Imm.Granulocyte 0.03 k/uL Normal 0.00-0.30 [facility] Comment on above: Performed By: #### A TRAZO #### [facility] [address] [place] [address] [phone] Top Stitcher: Kodak Akbar MD #### CMPX, EDTOX, LIP, CDP #### [address] [phone] Top Stitcher: Frank Otero MD Abs.Neutrophil (Seg) 2.38 k/uL Normal 1.80-8.00 [facility] Comment on above: Performed By: #### A TRAZO #### [facility] [address] [place] [phone] Top Stitcher: Kodak Akbar MD #### CMPX, EDTOX, LIP, CDP #### [address] [phone] Top Stitcher: Frank Otero MD Basophils/100 WBC (Bld) 1 % Normal 0-2 [facility] Comment on above: Performed By: #### A TRAZO #### [facility] [address] [place], [place] [phone] Top Stitcher: Kodak Akbar MD #### CMPX, EDTOX, LIP, CDP #### [address] [phone] Top Stitcher: Frank Otero MD Eosinophils (Bld) [#/Vol] 0.08 10*3/uL Normal 0.00-0.44 [facility] Comment on above: Performed By: #### A TRAZO #### [address] [phone] Top Stitcher: Kodak Akbar MD #### CMPX, EDTOX, LIP, CDP #### [address] [phone] Top Stitcher: Frank Otero MD Eosinophils/100 WBC (Bld) 2 % Normal 1-4 [facility] Comment on above: Performed By: #### A TRAZO #### [address] [phone] Top Stitcher: Kodak Akbar MD #### CMPX, EDTOX, LIP, CDP #### [address] [id number] Top Stitcher: Frank Otero MD Erythrocyte distribution width (RBC) [Ratio] 12.6 % Normal 11.8-14.4 [facility] Comment on above: Performed By: #### A TRAZO #### [address] [phone] Top Stitcher: Kodak kAbar MD #### CMPX, EDTOX, LIP, CDP #### [address], [place] [phone] Top Stitcher: Frank Otero MD Hematocrit (Bld) [Volume fraction] 46.5 % Normal 40.7-50.3 [facility] Comment on above: Performed By: #### A TRAZO #### [facility] [address] [place] [address] Top Stitcher: Kodak Akbar MD #### CMPX, EDTOX, LIP, CDP #### [address] [phone] Top Stitcher: Frank Otero MD Hemoglobin (Bld) [Mass/Vol] 16.0 g/dL Normal 13.0-17.0 [facility] Comment on above: Performed By: #### A TRAZO #### [address] [phone] Top Stitcher: Kodak Akbar MD #### CMPX, EDTOX, LIP, CDP #### [address] [phone] Top Stitcher: Frank Otero MD Immature granulocytes (Bld) [#/Vol] 1 % High 0 [facility] Comment on above: Performed By: #### A TRAZO #### [facility] [address] [place] [address] [phone] Top Stitcher: Kodak Akbar MD #### CMPX, EDTOX, LIP, CDP #### [address] [address] Top Stitcher: Frank Otero MD Lymphocytes (Bld) [#/Vol] 1.81 10*3/uL Normal 1.20-5.20 [facility] Comment on above: Performed By: #### A TRAZO #### [facility] [address] [place] [phone] Top Stitcher: Kdoak Akbar MD #### CMPX, EDTOX, LIP, CDP #### [address] [address] Top Stitcher: Frank Otero MD Lymphocytes/100 WBC (Bld) 38 % Normal 25-45 [facility] Comment on above: Performed By: #### A TRAZO #### [facility] [address] [place] [phone] Top Stitcher: Kodak Akbar MD #### CMPX, EDTOX, LIP, CDP #### [address] [address] Top Stitcher: Frank Otero MD MCH (RBC) [Entitic mass] 31.6 pg Normal 25.2-33.5 [facility] Comment on above: Performed By: #### A TRAZO #### [address] [address] Top Stitcher: Kodak Akbar MD #### CMPX, EDTOX, LIP, CDP #### [address] [phone] Top Stitcher: Frank Otero MD MCHC (RBC) [Mass/Vol] 34.4 g/dL Normal 28.4-34.8 [facility] Comment on above: Performed By: #### A TRAZO #### [facility] [address] [place] [id number] Top Stitcher: Kodak Akbar MD #### CMPX, EDTOX, LIP, CDP #### [address] [phone] Top Stitcher: Frank Otero MD MCV (RBC) [Entitic vol] 91.7 fL Normal 82.6-102.9 [facility] Comment on above: Performed By: #### A TRAZO #### [facility] [address] [place] [address] [phone] Top Stitcher: Kodak Akbar MD #### CMPX, EDTOX, LIP, CDP #### [place] [address] Top Stitcher: Frank Otero MD Monocytes (Bld) [#/Vol] 0.47 10*3/uL Normal 0.10-1.40 [facility] Comment on above: Performed By: #### A TRAZO #### [facility] [address] [place] [address] Top Stitcher: Kodak Akbar MD #### CMPX, EDTOX, LIP, CDP #### [place] [address] Top Stitcher: Frank Otero MD Monocytes/100 WBC (Bld) 10 % High 2-8 [facility] Comment on above: Performed By: #### A TRAZO #### [facility] [address] [address] Top Stitcher: Kodak Akbar MD #### CMPX, EDTOX, LIP, CDP #### [place] [address] Top Stitcher: Frank Otero MD Neutrophil (Seg) 49 % Normal 34-64 [facility] Comment on above: Performed By: #### A TRAZO #### [facility] [address] [place] [id number] Top Stitcher: Kodak Akbar MD #### CMPX, EDTOX, LIP, CDP #### [place] [address] Top Stitcher: Frank Otero MD NRBC Automated 0.0 per 100 WBC Normal 0.0 [facility] Comment on above: Performed By: #### A TRAZO #### [facility] [address] [place] [address] Top Stitcher: Kodak Akbar MD #### CMPX, EDTOX, LIP, CDP #### [address] [address] Top Stitcher: Frank Otero MD Platelet mean volume (Bld) [Entitic vol] 10.5 fL Normal 8.1-13.5 [facility] Comment on above: Performed By: #### A TRAZO #### [facility] [address] [place] [address] Top Stitcher: Kodak Akbar MD #### CMPX, EDTOX, LIP, CDP #### [place] [address] Top Stitcher: Frank Otero MD Platelets (Bld) [#/Vol] 141 10*3/uL Normal 138-453 [facility] Comment on above: Performed By: #### A TRAZO #### [facility] [address] [place] [phone] Top Stitcher: Kodak Akbar MD #### CMPX, EDTOX, LIP, CDP #### [place] [address] Top Stitcher: Frank Otero MD RBC (Bld) [#/Vol] 5.07 10*6/uL Normal 4.21-5.77 [facility] Comment on above: Performed By: #### A TRAZO #### [facility] [address] [place] [address] Top Stitcher: Kodak Akbar MD #### CMPX, EDTOX, LIP, CDP #### [place] [address] Top Stitcher: Frank Otero MD WBC (Bld) [#/Vol] 4.8 10*3/uL Normal 4.5-13.5 [facility] Comment on above: Performed By: #### A TRAZO #### [facility] [address] [place] [address] Top Stitcher: Kodak Akbar MD #### CMPX, EDTOX, LIP, CDP #### [address] [phone] Top Stitcher: Frank Otero MD Auto Diff Performed NOT REPORTED Normal [facility] Comment on above: Performed By: #### A TRAZO #### [facility] [address] [place] [address] Top Stitcher: Kodak Akbar MD #### CMPX, EDTOX, LIP, CDP #### [address] [phone] Top Stitcher: Frank Otero MD Platelets (Bld) [#/Vol] NOT REPORTED Normal [facility] Comment on above: Performed By: #### A TRAZO #### [facility] [address] [place] [address] Top Stitcher: Kodak Akbar MD #### CMPX, EDTOX, LIP, CDP #### [address] [phone] Top Stitcher: Frank Otero MD RBC morphology finding Nom (Bld) NOT REPORTED Normal [facility] Comment on above: Performed By: #### A TRAZO #### [facility] [address] [place] [address] Top Stitcher: Kodak Akbar MD #### CMPX, EDTOX, LIP, CDP #### [address] [phone] Top Stitcher: Frank Otero MD WBC Morphology NOT REPORTED Normal [facility] Comment on above: Performed By: #### A TRAZO #### [facility] [address] [place] [address] Top Stitcher: Kodak Akbar MD #### CMPX, EDTOX, LIP, CDP #### [facility] [address] [phone] Top Stitcher: Frank Otero MD Hematologyon 08-01-2020 Basophils (Bld) [#/Vol] 0.05 10*3/uL [place] Basophils/100 WBC (Bld) 1 % 0 - 2 % [place] Eosinophils (Bld) [#/Vol] 0.08 10*3/uL [place] Eosinophils/100 WBC (Bld) 2 % 1 - 4 % [place] Hematocrit (Bld) [Volume fraction] 46.5 % 40.7 - 50.3 % [place] Hemoglobin (Bld) [Mass/Vol] 16.0 g/dL 13 - 17 g/dL [place] Lymphocytes (Bld) [#/Vol] 1.81 10*3/uL [place] Lymphocytes/100 WBC (Bld) 38 % 25 - 45 % [place] MCH (RBC) [Entitic mass] 31.6 pg 25.2 - 33.5 pg [place] MCV (RBC) [Entitic vol] 91.7 fL 82.6 - 102.9 fL [place] Monocytes (Bld) [#/Vol] 0.47 10*3/uL [place] Monocytes/100 WBC (Bld) 10 % High 2 - 8 % [place] Platelets (Bld) [#/Vol] NOT REPORTED [place] Platelets (Bld) [#/Vol] 141 10*3/uL [place] RBC (Bld) [#/Vol] 5.07 10*6/uL 4.21 - 5.7 7 m/uL [place] RBC morphology finding Nom (Bld) NOT REPORTED [place] WBC (Bld) [#/Vol] 4.8 10*3/uL [place] WBC (Bld) [#/Vol] 0.0 10*3/uL 0.0 per 10 0 WBC [place] Liver Profileon 08-01-2020 Alkaline Phos 42 U/L Normal 40-129 [facility] Comment on above: Performed By: #### A TRAZO #### [facility] [address] [place] [address] Top Stitcher: Kodak Akbar MD #### CMPX, EDTOX, LIP, CDP #### [address] [phone] Top Stitcher: Frank Otero MD Globulin (S) [Mass/Vol] NOT REPORTED Normal 1.5-3.8 [facility] Comment on above: Performed By: #### A TRAZO #### [facility] [address] [place] [address] Top Stitcher: Kodak Akbar MD #### CMPKatalina, EDTOX, LIP, CDP #### [address] [phone] Top Stitcher: Frank Otero MD Albumin [Mass/Vol] 4.2 g/dL Normal 3.5-5.2 [place] Comment on above: Performed By: #### A TRAZO #### [facility] [address] [place], [place] [phone] Top Stitcher: Kodak Akbar MD #### CMPKatalina, EDTOX, LIP, CDP #### [address] [phone] Top Stitcher: Frank Otero MD Albumin/Globulin [Mass ratio] 1.9 {ratio} Normal 1.0-2.5 [place] Comment on above: Performed By: #### A TRAZO #### [facility] [address] [place] [address] Top Stitcher: Kodak Akbar MD #### CMPX, EDTOX, LIP, CDP #### [address] [phone] Top Stitcher: Frank Otero MD ALT [Catalytic activity/Vol] 20 U/L Normal 5-41 [place] Comment on above: Performed By: #### A TRAZO #### [facility] [address] [place] [address] Top Stitcher: Kodak Akbar MD #### CMPX, EDTOX, LIP, CDP #### [address] [phone] Top Stitcher: Frank Otero MD AST [Catalytic activity/Vol] 15 U/L Normal <40 [place] Comment on above: Performed By: #### A TRAZO #### [facility] [address] [place], [place] [phone] Top Stitcher: Kodak Akbar MD #### CMPX, EDTOX, LIP, CDP #### [address] [phone] Top Stitcher: Frank Otero MD Bilirubin Ql (U) 0.56 mg/dL Normal 0.3-1.2 [place] Comment on above: Performed By: #### A TRAZO #### [facility] [address] [place], [place] [phone] Top Stitcher: Kodak Akbar MD #### CMPX, EDTOX, LIP, CDP #### [address] [phone] Top Stitcher: Frank Otero MD Bilirubin, Indirect 0.43 mg/dL Normal 0.00-1.00 [place] Comment on above: Performed By: #### A TRAZO #### [facility] [address] [place], [place] [phone] Top Stitcher: Kodak Akbar MD #### CMPX, EDTOX, LIP, CDP #### [address] [phone] Top Stitcher: Frank Otero MD Bilirubin.direct [Mass/Vol] 0.13 mg/dL Normal <0.31 [place] Comment on above: Performed By: #### A TRAZO #### [facility] [address] [place] [address] Top Stitcher: Kodak Akbar MD #### CMPX, EDTOX, LIP, CDP #### [facility] [address] [place] [address] [phone] Top Stitcher: Frank Otero MD Protein [Mass/Vol] 6.4 g/dL Normal 6.4-8.3 [place] Comment on above: Performed By: #### A TRAZO #### [facility] [address] [place], [place] [phone] Top Stitcher: Kodak Akbar MD #### CMPX, EDTOX, LIP, CDP #### [facility] [address] [place] [address] [phone] Top Stitcher: Frank Otero MD Metabolic Panelon 08-01-2020 ALP [Catalytic activity/Vol] 42 U/L 40 - 129 U/L [place] GFR/1.73 sq M predicted among non-blacks MDRD (S/P/Bld) [Vol rate/Area] [place] Comment on above: Average GFR for <20 years old not available. Chronic Kidney Disease: <60 mL/min/1.73sq m Kidney failure: <15 mL/min/1.73sq m eGFR calculated using average adult body mass. Additional eGFR calculator available at: http://www.[employer].com/multiple_crcl_2012.htm GFR/1.73 sq M predicted among non-blacks MDRD (S/P/Bld) [Vol rate/Area] NOT REPORTED [place] Otheron 08-01-2020 SARS-CoV-2, Total Negative NEGATIVE [place] Comment on above: Negative results do not rule out SARS-CoV-2 infection, particularly in those who have been in contact with the virus. Follow-up testing with a molecular diagnostic should be considered to rule out infection in these individuals. Results from antibody testing should not be used as the sole basis to diagnose or exclude SARS-CoV-2 infection or to inform infection status. This test has been authorized by the [facility] under an Emergency Use Authorization (EUA) for use by authorized laboratories. Fact sheet for Healthcare Providers: https://www.[facility].gov/media/307170/download Fact sheet for Patients: https://www.[facility].gov/media/638449/download METHODOLOGY: ECIA SARS-CoV-2 [place], [place] SARS-CoV-2, Rapid Not Detected Not Detected [place], [place] Comment on above: Rapid NAAT: The specimen is NEGATIVE for SARS-CoV-2, the novel coronavirus associated with COVID-19. The ID NOW COVID-19 assay is designed to detect the virus that causes COVID-19 in patients with signs and symptoms of infection who are suspected of COVID-19. An individual without symptoms of COVID-19 and who is not shedding SARS-CoV-2 virus would expect to have a negative (not detected) result in this assay. Negative results should be treated as presumptive and, if inconsistent with clinical signs and symptoms or necessary for patient management, should be tested with an alternative molecular assay. Negative results do not preclude SARS-CoV-2 infection and should not be used as the sole basis for patient management decisions. Fact sheet for Healthcare Providers: https://www.[facility].gov/media/507260/download Fact sheet for Patients: https://www.[facility].gov/media/927292/download Methodology: Isothermal Nucleic Acid Amplification Source .NASOPHARYNGEAL SWAB [place] Bun/Cre Ratio NOT REPORTED [place] GFR NOT REPORTED >60 mL/min [place] GFR Non- Pediatric GFR requires additional information. Refer to NKDEP website for calculator. >60 mL/min [place] Globulin (S) [Mass/Vol] NOT REPORTED 1.5 - 3.8 g/dL [place] Interpretation and review of laboratory results Abnormal [place] Differential Type NOT REPORTED [place] Erythrocyte distribution width (RBC) [Ratio] 12.6 % 11.8 - 14.4 % [place] Immature granulocytes (Bld) [#/Vol] 1 % High 0 [place] Immature granulocytes (Bld) [#/Vol] 0.03 10*3/uL [place] Interpretation and review of laboratory results Abnormal [place] MCHC (RBC) [Mass/Vol] 34.4 g/dL 28.4 - 34.8 g/dL [place] Platelet mean volume (Bld) [Entitic vol] 10.5 fL 8.1 - 13.5 fL [place] Segmented neutrophils/100 WBC (Bld) 49 % 34 - 64 % [place] Segs Absolute 2.38 [place] WBC Morphology NOT REPORTED [place] POC Glucose Fingerstickon Glucose [Mass/Vol] 193 mg/dL High 75 - 110 mg/dL [place] Interpretation and review of laboratory results Abnormal [place] Glucose [Mass/Vol] 162 mg/dL High 75 - 110 mg/dL [place] Interpretation and review of laboratory results Abnormal [place] Glucose [Mass/Vol] 204 mg/dL High 75 - 110 mg/dL [place] Interpretation and review of laboratory results Abnormal [place] Glucose [Mass/Vol] 197 mg/dL High 75 - 110 mg/dL [place] Interpretation and review of laboratory results Abnormal [place] SARS-CoV-19 Abon 08-01-2020 SARS-CoV-19 Ab, Tot Negative Normal NEG [facility] Comment on above: Result Comment: Negative results do not rule out SARS-CoV-2 infection, particularly in those who have been in contact with the virus. Follow-up testing with a molecular diagnostic should be considered to rule out infection in these individuals. Results from antibody testing should not be used as the sole basis to diagnose or exclude SARS-CoV-2 infection or to inform infection status. This test has been authorized by the FDA under an Emergency Use Authorization (EUA) for use by authorized laboratories. Fact sheet for Healthcare Providers: https://www.fda.gov/media/369132/download Fact sheet for Patients: https://www.fda.gov/media/970192/download METHODOLOGY: ECIA Performed By: #### A TRAZO #### [facility] [address] [place] [address] Top Stitcher: Kodak Akbar MD #### CMPX, EDTOX, LIP, CDP #### [address] [phone] Top Stitcher: Frank Otero MD [id number] 08-01-2020 SARS-CoV-2 Normal [facility] Comment on above: Performed By: #### A TRAZO #### [facility] [address] [place], [place] [phone] Top Stitcher: Kodak Akbar MD #### CMPX, EDTOX, LIP, CDP #### [address] [phone] Top Stitcher: Frank Otero MD SARS-CoV-2,Rapid Not Detected Normal NOTDET [facility] Comment on above: Result Comment: Rapid NAAT: The specimen is NEGATIVE for SARS-CoV-2, the novel coronavirus associated with COVID-19. The ID NOW COVID-19 assay is designed to detect the virus that causes COVID-19 in patients with signs and symptoms of infection who are suspected of COVID-19. An individual without symptoms of COVID-19 and who is not shedding SARS-CoV-2 virus would expect to have a negative (not detected) result in this assay. Negative results should be treated as presumptive and, if inconsistent with clinical signs and symptoms or necessary for patient management, should be tested with an alternative molecular assay. Negative results do not preclude SARS-CoV-2 infection and should not be used as the sole basis for patient management decisions. Fact sheet for Healthcare Providers: https://www.fda.gov/media/747361/download Fact sheet for Patients: https://www.fda.gov/media/836016/download Methodology: Isothermal Nucleic Acid Amplification Performed By: #### A TRAZO #### [facility] [address] [place] [address] Top Stitcher: Kodak Akbar MD #### CMPX, EDTOX, LIP, CDP #### [facility] [address] [place] [address] [phone] Top Stitcher: Frank Otero MD SARS-CoV-2 Source .NASOPHARYNGEAL SWAB Normal [facility] Comment on above: Performed By: #### A TRAZO #### [facility] [address] [place] [address] Top Stitcher: Kodak Akbar MD #### CMPX, EDTOX, LIP, CDP #### [facility] [address] [place] [address] [phone] Top Stitcher: Frank Otero MD Ammoniaon 07-31-2020 Ammonia (P) [Mass/Vol] 34 umol/L Normal 16-60 [place] Comment on above: Performed By: #### A TRAZO #### [facility] [address] [place] [address] Top Stitcher: Kodak Akbar MD #### CMPKatalina, FELICIA, LIP, CDP #### [address] [id number] Top Stitcher: Frank Otero MD Cardiacon 07-31-2020 Cholesterol in LDL [Mass/Vol] 78 mg/dL <100 [place], [place] Cholesterol [Mass/Vol] 139 mg/dL <200 [place] Comment on above: Cholesterol Guidelines: <200 Desirable 200-240 Borderline >240 Undesirable Cholesterol in HDL [Mass/Vol] 20 mg/dL Low >40 [place], [place] Comment on above: HDL Guidelines: <40 Undesirable 40-59 Borderline >59 Desirable Cholesterol in LDL [Mass/Vol] 0 - 130 mg/dL [place] Comment on above: Calculation not alexis d for Triglyceride value greater than 400 mg/dL. Direct LDL reflexed LDL Guidelines: <100 Desirable 100-129 Near to/above Desirable 130-159 Borderline >159 Undesirable Direct (measured) LDL and calculated LDL are not interchangeable tests. Triglyceride [Mass/Vol] 406 mg/dL High <150 M [facility], [place] Comment on above: Triglyceride Guidelines: <150 Desirable 150-199 Borderline 200-499 High >499 Very high Based on AHA Guidelines for fasting triglyceride, July 2012. EKG 12 Leadon 07-31-2020 Atrial Rate 87 BPM [facility] [place] Atrial Rate 86 BPM [facility] Atrial Rate 85 BPM [facility] [place] P [place] 76 degrees [facility] [place] P [place] 60 degrees [facility] P [place] 57 degrees [facility] [place] P-R Interval 150 ms [facility] [place] P-R Interval 142 ms [facility] P-R Interval 136 ms [facility] [place] Q-T Interval 380 ms [facility] Q-T Interval 400 ms [facility] Q-T Interval 354 ms [facility] [place] QRS Duration 86 ms [facility] [place] QTc Calculation (Bazett) 454 ms [facility] [place] QTc Calculation (Bazett) 481 ms [facility] QTc Calculation (Bazett) 421 ms [facility] R [place] 70 degrees [facility] [place] R [place] 90 degrees [facility] [place] R [place] 65 degrees [facility] T [place] 42 degrees [facility] [place], [place] T [place] 44 degrees [facility] T [place] 63 degrees [facility] [place] Ventricular Rate 85 BPM [facility] Ventricular Rate 87 BPM [facility] Ventricular Rate 86 BPM [facility] [place] Sergey, Mhpn Incoming Ekg Results From [email or web address] - 07/31/2020 11:14 AM EDT Normal sinus rhythm Normal ECG When compared with ECG of 30-JUL-2020 13:41, Premature ventricular complexes are no longer Present [facility] [place], [place] Normal sinus rhythm Normal ECG When compared with ECG of 30-JUL-2020 13:41, Premature ventricular complexes are no longer Present [facility] Sergey, Mhpn Incoming Ekg Results From [email or web address] - 07/31/2020 11:14 AM EDT Normal sinus rhythm Possible Left atrial enlargement Rightward axis Borderline ECG When compared with ECG of 30-JUL-2020 13:50, T wave amplitude has increased in Anterolateral leads [place], [place] Sergey, Mhpn Incoming Ekg Results From [email or web address] - 07/31/2020 11:14 AM EDT Sinus rhythm with frequent Premature ventricular complexes in a pattern of bigeminy Otherwise normal ECG When compared with ECG of 30-JUL-2020 13:35, Vent. rate has increased BY 29 BPM QT has lengthened [place] Sinus rhythm with frequent Premature ventricular complexes in a pattern of bigeminy Otherwise normal ECG When compared with ECG of 30-JUL-2020 13:35, Vent. rate has increased BY 29 BPM QT has lengthened [place] Normal sinus rhythm Possible Left atrial enlargement Rightward axis Borderline ECG When compared with ECG of 30-JUL-2020 13:50, T wave amplitude has increased in Anterolateral leads [place] Atrial Rate 48 BPM [place] P [place] 46 degrees [place] P-R Interval 130 ms [place] Q-T Interval 418 ms [place] QRS Duration 104 ms [place] QTc Calculation (Bazett) 410 ms [place] R [place] 80 degrees [facility], [place] T [place] 23 degrees [place] Ventricular Rate 58 BPM [place] Sergey, Mhpn Incoming Ekg Results From [email or web address] - 07/31/2020 11:14 AM EDT Sinus bradycardia with frequent Premature ventricular complexes Otherwise normal ECG No previous ECGs available [place] Sinus bradycardia with frequent Premature ventricular complexes Otherwise normal ECG No previous ECGs available [place] HEMOGLOBIN A1Con 07-31-2020 Glucose [Mass/Vol] 209 mg/dL [place] Comment on above: The ADA and AACC rec ommend providing the estimated average glucose result to permit better patient understanding of their HBA1c result. HbA1c (Bld) [Mass fraction] 8.9 % High 4 - 6 % [place] Interpretation and review of laboratory results Abnormal [place] HEPATIC FUNCTION PANELon Albumin [Mass/Vol] 4 g/dL 3.5 - 5.2 g/dL [place] Albumin/Globulin [Mass ratio] 2.1 {ratio} [place] ALP [Catalytic activity/Vol] 39 U/L Low 40 - 129 U/L [place] ALT [Catalytic activity/Vol] 18 U/L 5 - 41 U/L [place] AST [Catalytic activity/Vol] 15 U/L <40 [place] Bilirubin Ql (U) 0.52 mg/dL 0.3 - 1.2 mg/dL [place] Bilirubin, Indirect 0.39 mg/dL 0 - 1 mg/dL [place] Bilirubin.direct [Mass/Vol] 0.13 mg/dL <0.31 [place] Globulin (S) [Mass/Vol] NOT REPORTED 1.5 - 3.8 g/dL [place] Interpretation and review of laboratory results Abnormal [place] Protein [Mass/Vol] 5.9 g/dL Low 6.4 - 8.3 g/dL [place] Hemoglobin A1Con 07-31-2020 HbA1c (Bld) [Mass fraction] 209 mg/dL Normal [facility] Comment on above: Result Comment: The ADA and AACC recommend providing the estimated average glucose result to permit better patient understanding of their HBA1c result. Performed By: #### A TRAZO #### [facility] [address] [place] [address] Top Stitcher: Kodak Akbar MD #### CMPX, EDJUSTUS, LIP, CDP #### [facility] [address] [place], [place] [phone] Top Stitcher: Frank Otero MD HbA1c (Bld) [Mass fraction] 8.9 % High 4.0-6.0 [facility] Comment on above: Performed By: #### A TRAZO #### [facility] [address] [place] [address] Top Stitcher: Kodak Akbar MD #### CMPX, EDTOX, LIP, CDP #### [employer] [address] [place] [address] Top Stitcher: Frank Otero MD LDL Chol, Directon 0 LDL Chol, Direct 78 mg/dL Normal <100 [facility] Comment on above: Performed By: #### A TRAZO #### [facility] [address] [place] [address] Top Stitcher: Kodak Akbar MD #### CMPX, EDTOX, LIP, CDP #### [address] [address] Top Stitcher: Frank Otero MD Lipid Profileon 07-31-2020 Cholesterol in LDL [Mass/Vol] Normal 0-130 [facility] Comment on above: Result Comment: Calc ulation not valid for Triglyceride value greater than 400 mg/dL. Direct LDL reflexed LDL Guidelines: <100 Desirable 100-129 Near to/above Desirable 130-159 Borderline >159 Undesirable Direct (measured) LDL and calculated LDL are not interchangeable tests. Performed By: #### T SHX, LIPR, GLYHGB, MISCR, LDLDIR #### [address] [address] Top Stitcher: Frank Otero MD Cholesterol [Mass/Vol] 139 mg/dL Normal <200 [facility] Comment on above: Result Comment: Cholesterol Guidelines: <200 Desirable 200-240 Borderline >240 Undesirable Performed By: #### T SHX, LIPR, GLYHGB, MISCR, LDLDIR #### [facility] [employer] [address] [place] [address] Top Stitcher: Frank Otero MD Cholesterol in HDL [Mass/Vol] 20 mg/dL Low >40 [facility] Comment on above: Result Comment: HDL Guidelines: <40 Undesirable 40-59 Borderline >59 Desirable Performed By: #### T SHX, LIPR, GLYHGB, MISCR, LDLDIR #### [address] [address] Top Stitcher: Frank Otero MD Cholesterol.total/Marge sterol in HDL [Mass ratio] 7.0 {ratio} High <5 [facility] Comment on above: Performed By: #### T SHX, LIPR, GLYHGB, MISCR, LDLDIR #### [address] [address] Top Stitcher: Frank Otero MD Triglyceride [Mass/Vol] 406 mg/dL High <150 [facility] Comment on above: Result Comment: Triglyceride Guidelines: <150 Desirable 150-199 Borderline 200-499 High >499 Very high Based on AHA Guidelines for fasting triglyceride, July 2012. Performed By: #### T SHX, LIPR, GLYHGB, MISCR, LDLDIR #### [address] [address] Top Stitcher: Frank Otero MD Cholesterol in VLDL [Mass/Vol] NOT REPORTED Normal 1-30 [facility] Comment on above: Performed By: #### T SHX, LIPR, GLYHGB, MISCR, LDLDIR #### [address] [address] Top Stitcher: Frank Otero MD Liver Profileon 07-31-2020 Albumin [Mass/Vol] 4.0 g/dL Normal 3.5-5.2 [facility] Comment on above: Performed By: #### A TRAZO #### [facility] [address] [place] [address] Top Stitcher: Kodak Akbar MD #### CMPX, EDTOX, LIP, CDP #### [address] [address] Top Stitcher: Frank Otero MD Albumin/Globulin [Mass ratio] 2.1 {ratio} Normal 1.0-2.5 [facility] Comment on above: Performed By: #### A TRAZO #### [facility] [address] [place] [address] Top Stitcher: Kodak Akbar MD #### CMPX, EDTOX, LIP, CDP #### [address] [phone] Top Stitcher: Frank Otero MD Alkaline Phos 39 U/L Low 40-129 [facility] Comment on above: Performed By: #### A TRAZO #### [facility] [address] [place] [address] Top Stitcher: Kodak Akbar MD #### CMPX, EDTOX, LIP, CDP #### [address] [phone] Top Stitcher: Frank Otero MD ALT [Catalytic activity/Vol] 18 U/L Normal 5-41 [facility] Comment on above: Performed By: #### A TRAZO #### [facility] [address] [place] [address] Top Stitcher: Kodak Akbar MD #### CMPX, EDTOX, LIP, CDP #### [address] [phone] Top Stitcher: Frank Otero MD AST [Catalytic activity/Vol] 15 U/L Normal <40 [facility] Comment on above: Performed By: #### A TRAZO #### [facility] [address] [place] [address] Top Stitcher: Kodak Akbar MD #### CMPX, EDTOX, LIP, CDP #### [address] [phone] Top Stitcher: Frank Otero MD Bilirubin Ql (U) 0.52 mg/dL Normal 0.3-1.2 [facility] Comment on above: Performed By: #### A TRAZO #### [facility] [address] [place], [place] [id number] Top Stitcher: Kodak Akbar MD #### CMPX, EDTOX, LIP, CDP #### [address] [address] Top Stitcher: Frank Otero MD Bilirubin, Indirect 0.39 mg/dL Normal 0.00-1.00 [facility] Comment on above: Performed By: #### A TRAZO #### [facility] [address] [place] [address] Top Stitcher: Kodak Akbar MD #### CMPX, EDTOX, LIP, CDP #### [address] [address] Top Stitcher: Frank Otero MD Bilirubin.direct [Mass/Vol] 0.13 mg/dL Normal <0.31 [facility] Comment on above: Performed By: #### A TRAZO #### [address] [phone] Top Stitcher: Kodak Akbar MD #### CMPX, EDTOX, LIP, CDP #### [address] [address] Top Stitcher: Frank Otero MD Protein [Mass/Vol] 5.9 g/dL Low 6.4-8.3 [facility] Comment on above: Performed By: #### A TRAZO #### [facility] [address] [place] [address] [phone] Top Stitcher: Kodak Akbar MD #### CMPX, EDTOX, LIP, CDP #### [address] [address] Top Stitcher: Frank Otero MD Globulin (S) [Mass/Vol] NOT REPORTED Normal 1.5-3.8 [facility] Comment on above: Performed By: #### A TRAZO #### [facility] [address] [place] [address] Top Stitcher: Kodak Akbar MD #### CMPX, EDTOX, LIP, CDP #### [facility] [address] [place], [place] [phone] Top Stitcher: Frank Otero MD Miscel, Refrigeratedon 07-31 Test Name [facility] [id number] QUANT Normal [facility] Comment on above: Performed By: #### A TRAZO #### [facility] [address] [place] [address] Top Stitcher: Kodak Akbar MD #### CMPX, EDTOX, LIP, CDP #### [facility] [employer] [facility] [place], [place] [phone] Top Stitcher: Frank Otero MD Otheron 07-31-2020 Atrial Rate 81 BPM [facility] [place] P [place] 69 degrees [facility] P-R Interval 156 ms [facility] Q-T Interval 350 ms [facility] QRS Duration 104 ms [facility] QTc Calculation (Bazett) 406 ms [facility] [place] R [place] 73 degrees [facility] [employer]- [place], [place] T [place] 54 degrees [facility]- [place], [place] Ventricular Rate 81 BPM [facility], [place] Sergey, Mhpn Incoming Ekg Results From [employer] Randall - 07/31/2020 11:14 AM EDT Normal sinus rhythm Normal ECG When compared with ECG of 30-JUL-2020 13:50, No significant change was found [place], [place] Normal sinus rhythm Normal ECG When compared with ECG of 30-JUL-2020 13:50, No significant change was found [place] Cholesterol in VLDL [Mass/Vol] NOT REPORTED 1 - 30 mg/dL [place] Cholesterol.total/Marge sterol in HDL [Mass ratio] 7 {ratio} High <5 [place] Interpretation and review of laboratory results Abnormal [place] POC Glucose Fingerstickon Glucose [Mass/Vol] 239 mg/dL High 75 - 110 mg/dL [place] Interpretation and review of laboratory results Abnormal [place] Glucose [Mass/Vol] 213 mg/dL High 75 - 110 mg/dL [place] Interpretation and review of laboratory results Abnormal [place] Glucose [Mass/Vol] 190 mg/dL High 75 - 110 mg/dL [place] Interpretation and review of laboratory results Abnormal [place] Glucose [Mass/Vol] 160 mg/dL High 75 - 110 mg/dL [place] Interpretation and review of laboratory results Abnormal [place] TSH w/reflex to FT4on 2019 TSH Qn 4.89 m[IU]/L Normal 0.30-5.00 [facility] Comment on above: Performed By: #### T SHX, LIPR, GLYHGB, MISCR, LDLDIR #### [facility] [place], [place] [phone] Top Stitcher: Frank Otero MD Thyroidon 07-31-2020 TSH Qn 4.89 m[IU]/L [place] Blood Gason 07-30-2020 Oxygen saturation in Blood 100 % High 60 - 85 % [place] CBC Auto Differentialon Basophils (Bld) [#/Vol] 0.08 10*3/uL [place] Basophils/100 WBC (Bld) 1 % 0 - 2 % [place] Differential Type NOT REPORTED [place] Eosinophils (Bld) [#/Vol] 0.07 10*3/uL [place] Eosinophils/100 WBC (Bld) 1 % 1 - 4 % [place] Erythrocyte distribution width (RBC) [Ratio] 12.6 % 11.8 - 14.4 % [place] Hematocrit (Bld) [Volume fraction] 53.6 % High 40.7 - 50.3 % [place] Hemoglobin (Bld) [Mass/Vol] 19.2 g/dL High 13 - 17 g/dL [place] Immature granulocytes (Bld) [#/Vol] 0.08 10*3/uL [place] Immature granulocytes (Bld) [#/Vol] 1 % High 0 [place] Interpretation and review of laboratory results Abnormal [place] Lymphocytes (Bld) [#/Vol] 4.09 10*3/uL [place] Lymphocytes/100 WBC (Bld) 43 % 25 - 45 % [place] MCH (RBC) [Entitic mass] 31.8 pg 25.2 - 33.5 pg [place] MCHC (RBC) [Mass/Vol] 35.8 g/dL High 28.4 - 34.8 g/dL [place] MCV (RBC) [Entitic vol] 88.7 fL 82.6 - 102.9 fL [place] Monocytes (Bld) [#/Vol] 0.67 10*3/uL [place] Monocytes/100 WBC (Bld) 7 % 2 - 8 % [place] Platelet mean volume (Bld) [Entitic vol] 10.9 fL 8.1 - 13.5 fL [place] Platelets (Bld) [#/Vol] NOT REPORTED [place] Platelets (Bld) [#/Vol] 226 10*3/uL [place] RBC (Bld) [#/Vol] 6.04 10*6/uL High 4.21 - 5.7 7 m/uL [place] RBC morphology finding Nom (Bld) NOT REPORTED [place] Segmented neutrophils/100 WBC (Bld) 47 % 34 - 64 % [place] Segs Absolute 4.47 [place] WBC (Bld) [#/Vol] 0.0 10*3/uL 0.0 per 10 0 WBC [place] WBC (Bld) [#/Vol] 9.5 10*3/uL [place] WBC Morphology NOT REPORTED [place] CBC with Diffon 07-30-2020 Abs. Basophil 0.08 k/uL Normal 0.00-0.20 [facility] Comment on above: Performed By: #### A TRAZO #### [facility] [address] [place] [address] Top Stitcher: Kodak Akbar MD #### CMPX, EDTOX, LIP, CDP #### [address] [address] Top Stitcher: Frank Otero MD Abs.Imm.Granulocyte 0.08 k/uL Normal 0.00-0.30 [facility] Comment on above: Performed By: #### A TRAZO #### [facility] [address] [place] [address] Top Stitcher: Kodak Akbar MD #### CMPX, EDTOX, LIP, CDP #### [address] [phone] Top Stitcher: Frank Otero MD Abs.Neutrophil (Seg) 4.47 k/uL Normal 1.80-8.00 [facility] Comment on above: Performed By: #### A TRAZO #### [facility] [address] [place] [address] Top Stitcher: Kodak Akbar MD #### CMPX, EDTOX, LIP, CDP #### [address] [phone] Top Stitcher: Frank Otero MD Basophils/100 WBC (Bld) 1 % Normal 0-2 [facility] Comment on above: Performed By: #### A TRAZO #### [facility] [address] [place] [address] Top Stitcher: Kodak Akbar MD #### CMPX, EDTOX, LIP, CDP #### [address] [phone] Top Stitcher: Frank Otero MD Eosinophils (Bld) [#/Vol] 0.07 10*3/uL Normal 0.00-0.44 [facility] Comment on above: Performed By: #### A TRAZO #### [facility] [address] [place], [place] [phone] Top Stitcher: Kodak Akbar MD #### CMPX, EDTOX, LIP, CDP #### [address] [phone] Top Stitcher: Frank Otero MD Eosinophils/100 WBC (Bld) 1 % Normal 1-4 [facility] Comment on above: Performed By: #### A TRAZO #### [facility] [address] [place] [phone] Top Stitcher: Kodak Akbar MD #### CMPX, EDTOX, LIP, CDP #### [address] [phone] Top Stitcher: Frank Otero MD Erythrocyte distribution width (RBC) [Ratio] 12.6 % Normal 11.8-14.4 [facility] Comment on above: Performed By: #### A TRAZO #### [facility] [address] [place] [phone] Top Stitcher: Kodak Akbar MD #### CMPX, EDTOX, LIP, CDP #### [address] [phone] Top Stitcher: Frank Otero MD Hematocrit (Bld) [Volume fraction] 53.6 % High 40.7-50.3 [facility] Comment on above: Performed By: #### A TRAZO #### [facility] [address] [place] [address] [phone] Top Stitcher: Kodak Akbar MD #### CMPX, EDTOX, LIP, CDP #### [address] [phone] Top Stitcher: Frank Otero MD Hemoglobin (Bld) [Mass/Vol] 19.2 g/dL High 13.0-17.0 [facility] Comment on above: Performed By: #### A TRAZO #### [facility] [address] [place] [address] Top Stitcher: Kodak Akbar MD #### CMPX, EDTOX, LIP, CDP #### [address] [address] Top Stitcher: Frank Otero MD Immature granulocytes (Bld) [#/Vol] 1 % High 0 [facility] Comment on above: Performed By: #### A TRAZO #### [facility] [address] [place] [address] Top Stitcher: Kodak Akbar MD #### CMPX, EDTOX, LIP, CDP #### [place] [address] Top Stitcher: Frank Otero MD Lymphocytes (Bld) [#/Vol] 4.09 10*3/uL Normal 1.20-5.20 [facility] Comment on above: Performed By: #### A TRAZO #### [facility] [address] [place] [address] Top Stitcher: Kodak Akbar MD #### CMPX, EDTOX, LIP, CDP #### [place] [address] Top Stitcher: Frank Otero MD Lymphocytes/100 WBC (Bld) 43 % Normal 25-45 [facility] Comment on above: Performed By: #### A TRAZO #### [facility] [address] [place] [address] Top Stitcher: Kodak Akbar MD #### CMPX, EDTOX, LIP, CDP #### [address] [phone] Top Stitcher: Frank Otero MD MCH (RBC) [Entitic mass] 31.8 pg Normal 25.2-33.5 [facility] Comment on above: Performed By: #### A TRAZO #### [facility] [address] [place], [place] [id number] Top Stitcher: Kodak Akbar MD #### CMPX, EDTOX, LIP, CDP #### [address] [phone] Top Stitcher: Frank Otero MD MCHC (RBC) [Mass/Vol] 35.8 g/dL High 28.4-34.8 [facility] Comment on above: Performed By: #### A TRAZO #### [address] [phone] Top Stitcher: Kodak Akbar MD #### CMPX, EDTOX, LIP, CDP #### [place] [address] Top Stitcher: Frank Otero MD MCV (RBC) [Entitic vol] 88.7 fL Normal 82.6-102.9 [facility] Comment on above: Performed By: #### A TRAZO #### [address] [phone] Top Stitcher: Kodak Akbar MD #### CMPX, EDTOX, LIP, CDP #### [place] [phone] Top Stitcher: Frank Otero MD Monocytes (Bld) [#/Vol] 0.67 10*3/uL Normal 0.10-1.40 [facility] Comment on above: Performed By: #### A TRAZO #### [facility] [address] [place], [place] [phone] Top Stitcher: Kodak Akbar MD #### CMPX, EDTOX, LIP, CDP #### [address] [id number] Top Stitcher: Frank Otero MD Monocytes/100 WBC (Bld) 7 % Normal 2-8 [facility] Comment on above: Performed By: #### A TRAZO #### [facility] [address] [place], [place] [id number] Top Stitcher: Kodak Akbar MD #### CMPX, EDTOX, LIP, CDP #### [address] [phone] Top Stitcher: Frank Otero MD Neutrophil (Seg) 47 % Normal 34-64 [facility] Comment on above: Performed By: #### A TRAZO #### [address] [address] Top Stitcher: Kodak Akbar MD #### CMPX, EDTOX, LIP, CDP #### [address] [phone] Top Stitcher: Frank Otero MD NRBC Automated 0.0 per 100 WBC Normal 0.0 [facility] Comment on above: Performed By: #### A TRAZO #### [address] [address] Top Stitcher: Kodak Akbar MD #### CMPX, EDTOX, LIP, CDP #### [address] [address] Top Stitcher: Frank Otero MD Platelet mean volume (Bld) [Entitic vol] 10.9 fL Normal 8.1-13.5 [facility] Comment on above: Performed By: #### A TRAZO #### [facility] [address] [place] [address] Top Stitcher: Kodak Akbar MD #### CMPX, EDTOX, LIP, CDP #### [address] [address] Top Stitcher: Frank Otero MD Platelets (Bld) [#/Vol] 226 10*3/uL Normal 138-453 [facility] Comment on above: Performed By: #### A TRAZO #### [facility] [address] [place] [address] Top Stitcher: Kodak Akbar MD #### CMPX, EDTOX, LIP, CDP #### [address] [address] Top Stitcher: Frank Otero MD RBC (Bld) [#/Vol] 6.04 10*6/uL High 4.21-5.77 [facility] Comment on above: Performed By: #### A TRAZO #### [facility] [address] [place] [address] Top Stitcher: Kodak Akbar MD #### CMPX, EDTOX, LIP, CDP #### [address] [address] Top Stitcher: Frank Otero MD WBC (Bld) [#/Vol] 9.5 10*3/uL Normal 4.5-13.5 [facility] Comment on above: Performed By: #### A TRAZO #### [facility] [address] [place] [address] Top Stitcher: Kodak Akbar MD #### CMPX, EDTOX, LIP, CDP #### [address] [address] Top Stitcher: Frank Otero MD Auto Diff Performed NOT REPORTED Normal [facility] Comment on above: Performed By: #### A TRAZO #### [facility] [address] [place] [address] Top Stitcher: Kodak Akbar MD #### CMPX, EDTOX, LIP, CDP #### [address] [place] [address] Top Stitcher: Frank Otero MD Platelets (Bld) [#/Vol] NOT REPORTED Normal [facility] Comment on above: Performed By: #### A TRAZO #### [facility] [address] [place], [place] [phone] Top Stitcher: Kodak Akbar MD #### CMPX, EDTOX, LIP, CDP #### [facility] [address] [place] [address] Top Stitcher: Frank Otero MD RBC morphology finding Nom (Bld) NOT REPORTED Normal [facility] Comment on above: Performed By: #### A TRAZO #### [address] [phone] Top Stitcher: Kodak Akbar MD #### CMPX, EDTOX, LIP, CDP #### [address] [address] Top Stitcher: Frank Otero MD WBC Morphology NOT REPORTED Normal [facility] Comment on above: Performed By: #### A TRAZO #### [facility] [address] [place] [address] [phone] Top Stitcher: Kodak Akabr MD #### CMPX, EDTOX, LIP, CDP #### [address] [address] Top Stitcher: Frank Otero MD Comp Metabolic Pr/rfx MGon 1 AST [Catalytic activity/Vol] 20 U/L Normal <40 [facility] Comment on above: Performed By: #### A TRAZO #### [facility] [address] [place] [address] Top Stitcher: Kodak Akbar MD #### CMPX, EDTOX, LIP, CDP #### [address] [phone] Top Stitcher: Frank Otero MD (cont.) Normal [facility] Comment on above: Result Comment: Aver age GFR for <20 years old not available. Chronic Kidney Disease: <60 mL/min/1.73sq m Kidney failure: <15 mL/min/1.73sq m eGFR calculated using average adult body mass. Additional eGFR calculator available at: http://www.[employer]/multiple_crcl_2012.htm Performed By: #### A TRAZO #### [facility] [address] [place] [address] Top Stitcher: Kodak Akbar MD #### FELICIA BUNN LIP, CDP #### [address] [phone] Top Stitcher: Frank Otero MD Albumin [Mass/Vol] 4.8 g/dL Normal 3.5-5.2 [facility] Comment on above: Performed By: #### A TRAZO #### [facility] [address] [place] [address] Top Stitcher: Kodak Akbar MD #### FELICIA BUNN LIP, CDP #### [address] [phone] Top Stitcher: Frank Otero MD Albumin/Globulin [Mass ratio] 1.9 {ratio} Normal 1.0-2.5 [facility] Comment on above: Performed By: #### A TRAZO #### [facility] [address] [place] [address] Top Stitcher: Kodak Akbar MD #### CMPFELICIA Darden LIP, CDP #### [address] [phone] Top Stitcher: Frank Otero MD Alkaline Phos 49 U/L Normal 40-129 [facility] Comment on above: Performed By: #### A TRAZO #### [facility] [address] [place] [address] Top Stitcher: Kodak Akbar MD #### CMPX, EDTOX, LIP, CDP #### [address] [phone] Top Stitcher: Frank Otero MD ALT [Catalytic activity/Vol] 24 U/L Normal 5-41 [facility] Comment on above: Performed By: #### A TRAZO #### [facility] [address] [place] [address] Top Stitcher: Kodak Akbar MD #### CMPX, EDTOX, LIP, CDP #### [address] [phone] Top Stitcher: Frank Otero MD Anion gap [Moles/Vol] 13 mmol/L Normal 9-17 [facility] Comment on above: Performed By: #### A TRAZO #### [facility] [address] [place] [address] Top Stitcher: Kodak Akbar MD #### CMPX, EDTOX, LIP, CDP #### [address] [phone] Top Stitcher: Frank Otero MD Bilirubin Ql (U) 0.84 mg/dL Normal 0.3-1.2 [facility] Comment on above: Performed By: #### A TRAZO #### [facility] [address] [place] [address] Top Stitcher: Kodak Akbar MD #### CMPX, EDTOX, LIP, CDP #### [address] [phone] Top Stitcher: Frank Otero MD Calcium [Mass/Vol] 9.6 mg/dL Normal 8.6-10.4 [facility] Comment on above: Performed By: #### A TRAZO #### [facility] [address] [place] [address] Top Stitcher: Kodak Akbar MD #### CMPX, EDTOX, LIP, CDP #### [address] [phone] Top Stitcher: Frank Otero MD Chloride [Moles/Vol] 105 mmol/L Normal 98-107 [facility] Comment on above: Performed By: #### A TRAZO #### [facility] [address] [place] [address] Top Stitcher: Kodak Akbar MD #### CMPX, EDTOX, LIP, CDP #### [address] [address] Top Stitcher: Frank Otero MD CO2 [Moles/Vol] 21 mmol/L Normal 20-31 [facility] Comment on above: Performed By: #### A TRAZO #### [facility] [address] [place] [address] Top Stitcher: Kodak Akbar MD #### CMPX, EDTOX, LIP, CDP #### [address] [address] Top Stitcher: Frank Otero MD Creatinine [Mass/Vol] 0.91 mg/dL Normal 0.70-1.20 [facility] Comment on above: Performed By: #### A TRAZO #### [facility] [address] [place] [address] Top Stitcher: Kodak Akbar MD #### CMPX, EDTOX, LIP, CDP #### [address] [address] Top Stitcher: Frank Otero MD GFR,non Amer Pediatric GFR requires additional information. Refer to NKDEP website for Normal >60 [facility] Comment on above: Result Comment: calc ulator. Performed By: #### A TRAZO #### [facility] [address] [place] [address] Top Stitcher: Kodak Akbar MD #### CMPX, EDTOX, LIP, CDP #### [address] [address] Top Stitcher: Frank Otero MD Glucose [Mass/Vol] 198 mg/dL High 70-99 [facility] Comment on above: Performed By: #### A TRAZO #### [facility] [address] [place] [address] Top Stitcher: Kodak Akbar MD #### CMPX, EDTOX, LIP, CDP #### [address] [phone] Top Stitcher: Frank Otero MD Potassium [Moles/Vol] 3.9 mmol/L Normal 3.7-5.3 [facility] Comment on above: Performed By: #### A TRAZO #### [facility] [address] [place] [address] Top Stitcher: Kodak Akbar MD #### CMPX, EDTOX, LIP, CDP #### [address] [phone] Top Stitcher: Frank Otero MD Protein [Mass/Vol] 7.3 g/dL Normal 6.4-8.3 [facility] Comment on above: Performed By: #### A TRAZO #### [facility] [address] [place], [place] [phone] Top Stitcher: Kodak Akbar MD #### CMPX, EDTOX, LIP, CDP #### [address] [phone] Top Stitcher: Frank Otero MD Sodium [Moles/Vol] 139 mmol/L Normal 135-144 [facility] Comment on above: Performed By: #### A TRAZO #### [facility] [address] [place] [address] Top Stitcher: Kodak Akbar MD #### CMPX, EDTOX, LIP, CDP #### [facility] [address] [place] [address] Top Stitcher: Frank Otero MD Urea nitrogen [Mass/Vol] 13 mg/dL Normal 6-20 [facility] Comment on above: Performed By: #### A TRAZO #### [facility] [address] [place] [address] Top Stitcher: Kodak Akbar MD #### CMPX, EDTOX, LIP, CDP #### [address] [phone] Top Stitcher: Frank Otero MD BUN/CRE Ratio NOT REPORTED Normal 9-20 [facility] Comment on above: Performed By: #### A TRAZO #### [facility] [address] [place] [address] Top Stitcher: Kodak Akbar MD #### CMPX, EDTOX, LIP, CDP #### [address] [phone] Top Stitcher: Frank Otero MD GFR, Amer NOT REPORTED Normal >60 [facility] Comment on above: Performed By: #### A TRAZO #### [facility] [address] [place] [address] Top Stitcher: Kodak Akbar MD #### CMPX, EDTOX, LIP, CDP #### [facility] [address] [place] [id number] Top Stitcher: Frank Otero MD Staging: NOT REPORTED Normal [facility] Comment on above: Performed By: #### A TRAZO #### [facility] [address] [place] [address] Top Stitcher: Kodak Akbar MD #### CMPX, EDTOX, LIP, CDP #### [address] [phone] Top Stitcher: Frank Otero MD Drugon 07-30-2020 Ethanol [Mass/Vol] mg/dL <10 mg/dL [facility] Drug Scr, Abuse, U[place] 2019 Amphetamine(s),Ur Negative Normal NEG [facility] Comment on above: Result Comment: (Positive cutoff 1000 ng/mL) Performed By: #### D AU #### [address] [address] Top Stitcher: Frank Otero MD Barbiturate(s),Ur Negative Normal NEG [facility] Comment on above: Result Comment: (Positive cutoff 200 ng/mL) Performed By: #### D AU #### [address] [address] Top Stitcher: Frank Otero MD Base excess Calc (Bld) [Moles/Vol] Negative Normal NEG [facility] Comment on above: Result Comment: (Positive cutoff 300 ng/mL) Performed By: #### D AU #### [address] [address] Top Stitcher: Frank Otero MD Benzodiazepine(s) Negative Normal NEG [facility] Comment on above: Result Comment: (Positive cutoff 200 ng/mL) Performed By: #### D AU #### [address] [address] Top Stitcher: Frank Otero MD Cannabinoid(s),Ur Negative Normal NEG [facility] Comment on above: Result Comment: (Positive cutoff 50 ng/mL) Performed By: #### D AU #### [address] [id number] Top Stitcher: Frank Otero MD Interpretive Info Assay provides medical screening only. The absence of expected drug(s) and/or Normal [facility] Comment on above: Result Comment: meta bolite(s) may indicate diluted or adulterated urine, limitations of testing or timing of collection. Testing for legal purposes should be confirmed by another method. To request confirmation of test result, please call the lab within 7 days of sample submission. Performed By: #### D AU #### [address] [address] Top Stitcher: Frank Otero MD Methadone Ql (U) Negative Normal NEG [facility] Comment on above: Result Comment: (Positive cutoff 300 ng/mL) Performed By: #### D AU #### [address] [address] Top Stitcher: Frank Otero MD Opiate(s), Ur Negative Normal NEG [facility] Comment on above: Result Comment: (Positive cutoff 300 ng/mL) Performed By: #### D AU #### [address] [address] Top Stitcher: Frank Otero MD Oxycodone, Urine Negative Normal NEG [facility] Comment on above: Result Comment: (Positive cutoff 100 ng/mL) Performed By: #### D AU #### [facility] [address] [place] [address] Top Stitcher: Frank Otero MD Phencyclidine, Ur Negative Normal NEG [facility] Comment on above: Result Comment: (Positive cutoff 25 ng/mL) Performed By: #### D AU #### [facility] [employer] [address] [place] [address] Top Stitcher: Frank Otero MD Buprenorphrine, Ur NOT REPORTED Normal NEG [facility] Comment on above: Performed By: #### D AU #### [facility] [address] [place] [address] Top Stitcher: Frank Otero MD MDMA, Urine NOT REPORTED Normal NEG [facility] Comment on above: Performed By: #### D AU #### [address] [address] Top Stitcher: Frank Otero MD Methamphetamine, Ur NOT REPORTED Normal NEG [facility] Comment on above: Performed By: #### D AU #### [address] [address] Top Stitcher: Frank Otero MD Propoxyphene,Urine NOT REPORTED Normal NEG [facility] Comment on above: Performed By: #### D AU #### [address] [address] Top Stitcher: Frank tOero MD Tricyclic antidepressants Screen Ql (U) NOT REPORTED Normal NEG [facility] Comment on above: Performed By: #### D AU #### [address] [address] Top Stitcher: Frank Otero MD Hematologyon 07-30-2020 aPTT Coag (Bld) [Time] NOT REPORTED [place] Hematocrit (Bld) [Volume fraction] 56 % High 41 - 53 % [place] Hemoglobin (Bld) [Mass/Vol] 19.1 g/dL High 13.5 - 17.5 g/dL [place] Lactic Acid,Whole Blon 07-30 Lactic Acid,Whole Bl 1.0 mmol/L Normal 0.7-2.1 [facility] Comment on above: Performed By: #### L ACWB #### [address] [address] Top Stitcher: Farnk Otero MD Lipaseon 07-30-2020 Lipase [Catalytic activity/Vol] 36 U/L Normal 13-60 [facility] Comment on above: Performed By: #### A TRAZO #### [facility] [address] [place] [address] Top Stitcher: Kodak Akbar MD #### CMPX, NADEEM DUARTE, CDP #### [facility] [address] [place] [address] Top Stitcher: Frank Otero MD Metabolic Panelon 07-30-2020 Albumin [Mass/Vol] 4.8 g/dL 3.5 - 5.2 g/dL [place] ALP [Catalytic activity/Vol] 49 U/L 40 - 129 U/L [place] ALT [Catalytic activity/Vol] 24 U/L 5 - 41 U/L [place] Anion gap [Moles/Vol] 13 mmol/L 9 - 17 mmol/L [place] AST [Catalytic activity/Vol] 20 U/L <40 [place] Calcium [Mass/Vol] 9.6 mg/dL 8.6 - 10. 4 mg/dL [place] Chloride [Moles/Vol] 105 mmol/L 98 - 10 7 mmol/L [place] CO2 [Moles/Vol] 21 mmol/L 20 - 31 mmol/L [place] Creatinine [Mass/Vol] 0.91 mg/dL 0.7 - 1.2 mg/dL [place] GFR/1.73 sq M predicted among non-blacks MDRD (S/P/Bld) [Vol rate/Area] NOT REPORTED [place] GFR/1.73 sq M predicted among non-blacks MDRD (S/P/Bld) [Vol rate/Area] [place] Comment on above: Average GFR for <20 years old not available. Chronic Kidney Disease: <60 mL/min/1.73sq m Kidney failure: <15 mL/min/1.73sq m eGFR calculated using average adult body mass. Additional eGFR calculator available at: http://www.[employer]/multiple_crcl_2012.htm Glucose [Mass/Vol] 198 mg/dL High 70 - 99 mg/dL [place] Potassium [Moles/Vol] 3.9 mmol/L 3.7 - 5.3 mmol/L [place] Protein [Mass/Vol] 7.3 g/dL 6.4 - 8.3 g/dL [place] Sodium [Moles/Vol] 139 mmol/L 135 - 144 mmol/L [place] Urea nitrogen [Mass/Vol] 13 mg/dL 6 - 20 mg/dL [place] Anion gap [Moles/Vol] 10 mmol/L 7 - 16 mmol/L [place] Chloride [Moles/Vol] 109 mmol/L High 98 - 10 7 mmol/L [place] Creatinine [Mass/Vol] 1.11 mg/dL 0.51 - 1.19 mg/dL [place] GFR/1.73 sq M predicted among non-blacks MDRD (S/P/Bld) [Vol rate/Area] [place] Comment on above: Average GFR for <20 years old not available. Chronic Kidney Disease: <60 mL/min/1.73sq m Kidney failure: <15 mL/min/1.73sq m eGFR calculated using average adult body mass. Additional eGFR calculator available at: http://www.[employer]It/multiple_crcl_2012.htm GFR/1.73 sq M predicted among non-blacks MDRD (S/P/Bld) [Vol rate/Area] mL/min/{1.73_m2} >60 mL/min [place] Glucose [Mass/Vol] 220 mg/dL High 74 - 100 mg/dL [place] Potassium [Moles/Vol] 3.8 mmol/L 3.5 - 4.5 mmol/L [place] Sodium [Moles/Vol] 141 mmol/L 138 - 146 mmol/L [place] Otheron 07-30-2020 Amphetamine Screen, Ur Negative NEGATIVE [place] Comment on above: (Positive cutoff 1000 ng/mL) Barbiturate Screen, Ur Negative NEGATIVE [place] Comment on above: (Positive cutoff 200 ng/mL) Benzodiazepine Screen, Urine Negative NEGATIVE [place] Comment on above: (Positive cutoff 200 ng/mL) Buprenorphine Urine NOT REPORTED NEGATIVE [place] Cannabinoid Scrn, Ur Negative NEGATIVE [place] Comment on above: (Positive cutoff 50 ng/mL) Cocaine Metabolite, Urine Negative NEGATIVE [place] Comment on above: (Positive cutoff 300 ng/mL) MDMA, Urine NOT REPORTED NEGATIVE [place] Methadone Screen, Urine Negative NEGATIVE [place] Comment on above: (Positive cutoff 300 ng/mL) Methamphetamine, Urine NOT REPORTED NEGATIVE [place] Opiates, Urine Negative NEGATIVE [place] Comment on above: (Positive cutoff 300 ng/mL) Oxycodone Screen, Ur Negative NEGATIVE [place] Comment on above: (Positive cutoff 100 ng/mL) Phencyclidine, Urine Negative NEGATIVE [place] Comment on above: (Positive cutoff 25 ng/mL) Propoxyphene, Urine NOT REPORTED NEGATIVE [place] Test Information Assay provides medical screening only. The absence of expected drug(s) and/or metabolite(s) may indicate diluted or adulterated urine, limitations of testing or timing of collection. [place] Comment on above: Testing for legal pu rposes should be confirmed by another method. To request confirmation of test result, please call the lab within 7 days of sample submission. Tricyclic Antidepressants, Urine NOT REPORTED NEGATIVE [place] Lactic Acid, Whole Blood 1.0 mmol/L 0.7 - 2.1 mmol/L [place] No acute findings [place] EXAMINATION: ONE XRA Y VIEW OF THE CHEST 07/30/2020 2:21 pm COMPARISON: None. HISTORY: ORDERING SYSTEM PROVIDED HISTORY: durg overdose TECHNOLOGIST PROVIDED HISTORY: durg overdose FINDINGS: Cardiac silhouette is enlarged. Lungs appear clear. No acute abnormality. [place], [place] Sergey, Mhpn Incoming Radiant Results From [employer] - 07/30/2020 2:26 PM EDT EXAMINATION: ONE XRAY VIEW OF THE CHEST 07/30/2020 2:21 pm COMPARISON: None. HISTORY: ORDERING SYSTEM PROVIDED HISTORY: durg overdose TECHNOLOGIST PROVIDED HISTORY: durg overdose FINDINGS: Cardiac silhouette is enlarged. Lungs appear clear. No acute abnormality. IMPRESSION: No acute findings [place] Acetaminophen [Mass/Vol] <5 Low 10 - 30 ug/mL [place] Albumin/Globulin [Mass ratio] 1.9 {ratio} [place] Bilirubin Ql (U) 0.84 mg/dL 0.3 - 1.2 mg/dL [place] Bun/Cre Ratio NOT REPORTED [place] Ethanol percent <0.010 <0.010 % [place] GFR NOT REPORTED >60 mL/min [place] GFR Non- Pediatric GFR requires additional information. Refer to [employer] website for calculator. >60 mL/min [place] Interpretation and review of laboratory results Abnormal [place] Salicylate Lvl <1 Low 3 - 10 mg/dL [place] Toxic Tricyclic Sc,Blood Negative NEGATIVE [place] Lipase [Catalytic activity/Vol] 36 U/L 13 - 60 U/L [place] Tracie Test NOT REPORTED [place] FIO2 NOT REPORTED [place] GFR Non- >60 >60 mL/min [place] HCO3, Venous 22.3 mmol/L 22 - 29 mmol/L [place] Interpretation and review of laboratory results Abnormal [place] Mode NOT REPORTED [place] Negative Base Excess, Zack NOT REPORTED [place] O2 Device/Flow/% NOT REPORTED [place] pCO2, Zack 32.1 Low [place] pH, Zack 7.451 High [place] pO2, Zack 187.6 High [place] POC Ionized Calcium 1.05 mmol/L Low 1.15 - 1 .33 mmol/L [place] POC Lactic Acid 2.76 mmol/L High 0.56 - 1.39 mmol/L [place] POC pCO2 Temp NOT REPORTED mm Hg [place] POC pH Temp NOT REPORTED [place] POC pO2 Temp NOT REPORTED mm Hg [place] Positive Base Excess, Zack 0 [place], [place] Sample Site NOT REPORTED [place], [place] Total CO2, Venous 23 mmol/L 23 - 30 mmol/L [place] POC Glucose Fingerstickon Glucose [Mass/Vol] 148 mg/dL High 75 - 110 mg/dL [place] Interpretation and review of laboratory results Abnormal [place] Glucose [Mass/Vol] 190 mg/dL High 75 - 110 mg/dL [place] Interpretation and review of laboratory results Abnormal [place] Tox Scr, Bld, EDon 0 Acetaminophen [Mass/Vol] <5 Low 10-30 [facility] Comment on above: Performed By: #### A TRAZO #### [facility] [address] [place], [place] [id number] Top Stitcher: Kodak Akbar MD #### CMPX, EDTOX, LIP, CDP #### [facility] [address] [place] [address] [phone] Top Stitcher: Frank Otero MD Salicylate <1 Low 3-10 [facility] Comment on above: Performed By: #### A TRAZO #### [facility] [address] [place], [place] [id number] Top Stitcher: Kodak Akbar MD #### CMPX, EDTOX, LIP, CDP #### [facility] [address] [place] [address] [phone] Top Stitcher: Frank Otero MD Ethanol [Mass/Vol] mg/dL Normal <10 [facility] Comment on above: Performed By: #### A TRAZO #### [facility] [address] [place], [place] [id number] Top Stitcher: Kodak Akbar MD #### CMPX, EDTOX, LIP, CDP #### [facility] [address] [place] [address] [phone] Top Stitcher: Frank Otero MD Ethanol percent <0.010 Normal <0.010 [facility] Comment on above: Performed By: #### A TRAZO #### [facility] [address] [place] [address] Top Stitcher: Kodak Akbar MD #### CMPX, EDTOX, LIP, CDP #### [address] [phone] Top Stitcher: Frank Otero MD Toxic Tricyclic Sc,Bl Negative Normal NEG [facility] Comment on above: Performed By: #### A TRAZO #### [facility] [address] [place] [address] Top Stitcher: Kodak Akbar MD #### CMPX, EDTOX, LIP, CDP #### [address] [id number] Top Stitcher: Frank Otero MD XR CHEST PORTABLEon 07-30-20 XR CHEST PORTABLE EXAMINATION: ONE XRAY VIEW OF THE CHEST 07/30/2020 2:21 pm COMPARISON: None. HISTORY: ORDERING SYSTEM PROVIDED HISTORY: durg overdose TECHNOLOGIST PROVIDED HISTORY: durg overdose FINDINGS: Cardiac silhouette is enlarged. Lungs appear clear. No acute abnormality. IMPRESSION: No acute findings Interpreted by: Myranda Al MD Signed by: Myranda Al MD 07/30/20 Final result Normal [facility] ACETAMINOPHENon 02-26-2020 Acetaminophen [Mass/Vol] < 5.0 Normal 0.0-20.0 [facility] Comment on above: Performed By: #### C BCWD, BMP, ACTM, ASAT, ETOHS, ANION, OSMOL, TSH3 #### [employer] [address] [place] [address] ANION GAPon 02-26-2020 Anion gap [Moles/Vol] 11.0 mmol/L Normal 8.0-16.0 [facility] Comment on above: Result Comment: ANIO N GAP = Sodium -(Chloride + CO2) Performed By: #### C BCWD, BMP, ACTM, ASAT, ETOHS, ANION, OSMOL, TSH3 #### [facility] [employer] [facility] [address] [place] [address] Acetaminophen levelon 2019 Acetaminophen [Mass/Vol] < 5.0 0 - 20 ug/mL [place], [place] Comment on above: Performed at [facility] [address] [place] [address] Anion Gapon 02-26-2020 Anion gap [Moles/Vol] 11.0 mmol/L 8 - 16 meq/L [place] Comment on above: ANION GAP = Sodium - (Chloride + CO2) Performed at [facility] [address] [place] [address] BASIC METABOL PANELon 2019 Calcium [Mass/Vol] 9.5 mg/dL Normal 8.5-10.5 [facility] Comment on above: Performed By: #### C BCWD, BMP, ACTM, ASAT, ETOHS, ANION, OSMOL, TSH3 #### [facility] [employer] [facility] [address] [address] Chloride [Moles/Vol] 100 mmol/L Normal 98-111 [facility] Comment on above: Performed By: #### C BCWD, BMP, ACTM, ASAT, ETOHS, ANION, OSMOL, TSH3 #### [facility] [employer] [facility] [address] [place] [phone] CO2 [Moles/Vol] 26 mmol/L Normal 23-33 [facility] Comment on above: Performed By: #### C BCWD, BMP, ACTM, ASAT, ETOHS, ANION, OSMOL, TSH3 #### [facility] [employer] [facility] [address] [place] [phone] Creatinine [Mass/Vol] 0.8 mg/dL Normal 0.4-1.2 [facility] Comment on above: Performed By: #### C BCWD, BMP, ACTM, ASAT, ETOHS, ANION, OSMOL, TSH3 #### [facility] [address] [place] [phone] Glucose [Mass/Vol] 164 mg/dL High 70-108 [facility] Comment on above: Performed By: #### C BCWD, BMP, ACTM, ASAT, ETOHS, ANION, OSMOL, TSH3 #### [facility] [employer] [address] [place] [phone] Potassium [Moles/Vol] 5.0 mmol/L Normal 3.5-5.2 [facility] Comment on above: Result Comment: Very slight hemolysis indicated. Performed By: #### C BCWD, BMP, ACTM, ASAT, ETOHS, ANION, OSMOL, TSH3 #### [address] [address] Sodium [Moles/Vol] 137 mmol/L Normal 135-145 [facility] Comment on above: Performed By: #### C BCWD, BMP, ACTM, ASAT, ETOHS, ANION, OSMOL, TSH3 #### [facility] [employer] [address] [address] Urea nitrogen [Mass/Vol] 17 mg/dL Normal 7-22 [facility] Comment on above: Performed By: #### C BCWD, BMP, ACTM, ASAT, ETOHS, ANION, OSMOL, TSH3 #### [address] [address] Basic Metabolic Panelon 05-0 Calcium [Mass/Vol] 9.5 mg/dL 8.5 - 10. 5 mg/dL [place], [place] Comment on above: Performed at [facility] [address] [place] [address] Chloride [Moles/Vol] 100 mmol/L 98 - 11 1 meq/L [place] CO2 [Moles/Vol] 26 mmol/L 23 - 33 meq/L [place] Creatinine [Mass/Vol] 0.8 mg/dL 0.4 - 1.2 mg/dL [place] Glucose [Mass/Vol] 164 mg/dL High 70 - 108 mg/dL [place] Potassium [Moles/Vol] 5.0 mmol/L 3.5 - 5.2 meq/L [place] Comment on above: Very slight hemolysi s indicated. Sodium [Moles/Vol] 137 mmol/L 135 - 145 meq/L [facility] [place] Urea nitrogen [Mass/Vol] 17 mg/dL 7 - 22 mg/dL [facility] CALCULATED OSMOLALITYon 0 Osmolality [Osmolality] 279.0 mOsmol/kg Normal 275.0-[address] [facility] Comment on above: Performed By: #### C BCWD, BMP, ACTM, ASAT, ETOHS, ANION, OSMOL, TSH3 #### [address] [address] CBC WITH DIFFERENTIALon ABS IMMATURE GRANS (IG) 0.09 thou/mm3 High 0.00-0.07 [facility] Comment on above: Performed By: #### C BCWD, BMP, ACTM, ASAT, ETOHS, ANION, OSMOL, TSH3 #### [address] [address] ABS NEUTROPHILS 5.8 thou/mm3 Normal 1.8-7.7 [facility] Comment on above: Performed By: #### C BCWD, BMP, ACTM, ASAT, ETOHS, ANION, OSMOL, TSH3 #### [address] [address] Basophils (Bld) [#/Vol] 0.1 thou/mm3 Normal 0.0-0.1 [facility] Comment on above: Performed By: #### C BCWD, BMP, ACTM, ASAT, ETOHS, ANION, OSMOL, TSH3 #### [address] [address] Basophils/100 WBC (Bld) 0.7 % Normal [facility] Comment on above: Performed By: #### C BCWD, BMP, ACTM, ASAT, ETOHS, ANION, OSMOL, TSH3 #### [address] [address] Eosinophils (Bld) [#/Vol] 0.1 thou/mm3 Normal 0.0-0.4 [facility] Comment on above: Performed By: #### C BCWD, BMP, ACTM, ASAT, ETOHS, ANION, OSMOL, TSH3 #### [address] [address] Eosinophils/100 WBC (Bld) 1.1 % Normal [facility] Comment on above: Performed By: #### C BCWD, BMP, ACTM, ASAT, ETOHS, ANION, OSMOL, TSH3 #### [address] [address] Erythrocyte distribution width (RBC) [Ratio] 12.5 % Normal 11.5-14.5 [facility] Comment on above: Performed By: #### C BCWD, BMP, ACTM, ASAT, ETOHS, ANION, OSMOL, TSH3 #### [address] [address] Hematocrit (Bld) [Volume fraction] 51.3 % Normal 42.0-52.0 [facility] Comment on above: Performed By: #### C BCWD, BMP, ACTM, ASAT, ETOHS, ANION, OSMOL, TSH3 #### [address] [address] Hemoglobin (Bld) [Mass/Vol] 18.5 gm/dl High 14.0-18.0 [facility] Comment on above: Performed By: #### C BCWD, BMP, ACTM, ASAT, ETOHS, ANION, OSMOL, TSH3 #### [address] [address] IMMATURE GRANS (IG) 1.0 % Normal [facility] Comment on above: Performed By: #### C BCWD, BMP, ACTM, ASAT, ETOHS, ANION, OSMOL, TSH3 #### [address] [address] Lymphocytes (Bld) [#/Vol] 2.6 thou/mm3 Normal 1.0-4.8 [facility] Comment on above: Performed By: #### C BCWD, BMP, ACTM, ASAT, ETOHS, ANION, OSMOL, TSH3 #### [address] [address] Lymphocytes/100 WBC (Bld) 29.1 % Normal [facility] Comment on above: Performed By: #### C BCWD, BMP, ACTM, ASAT, ETOHS, ANION, OSMOL, TSH3 #### [address] [address] MCH (RBC) [Entitic mass] 32.2 pg Normal 26.0-33.0 [facility] Comment on above: Performed By: #### C BCWD, BMP, ACTM, ASAT, ETOHS, ANION, OSMOL, TSH3 #### [address] [address] MCHC (RBC) [Mass/Vol] 36.1 gm/dl High 32.2-35.5 [facility] Comment on above: Performed By: #### C BCWD, BMP, ACTM, ASAT, ETOHS, ANION, OSMOL, TSH3 #### [address] [address] MCV (RBC) [Entitic vol] 89.4 fL Normal 80.0-94.0 [facility] Comment on above: Performed By: #### C BCWD, BMP, ACTM, ASAT, ETOHS, ANION, OSMOL, TSH3 #### [address] [address] Monocytes (Bld) [#/Vol] 0.4 thou/mm3 Normal 0.4-1.3 [facility] Comment on above: Performed By: #### C BCWD, BMP, ACTM, ASAT, ETOHS, ANION, OSMOL, TSH3 #### [address] [address] Monocytes/100 WBC (Bld) 4.9 % Normal [facility] Comment on above: Performed By: #### C BCWD, BMP, ACTM, ASAT, ETOHS, ANION, OSMOL, TSH3 #### [address] [address] Neutrophils/100 WBC (Bld) 63.2 % Normal [facility] Comment on above: Performed By: #### C BCWD, BMP, ACTM, ASAT, ETOHS, ANION, OSMOL, TSH3 #### [address] [address] Nucleated RBC/100 WBC (Bld) [Ratio] 0 /[address] [facility] Comment on above: Performed By: #### C BCWD, BMP, ACTM, ASAT, ETOHS, ANION, OSMOL, TSH3 #### [address] [address] Platelet mean volume (Bld) [Entitic vol] 9.8 fL Normal 9.4-12.4 [facility] Comment on above: Performed By: #### C BCWD, BMP, ACTM, ASAT, ETOHS, ANION, OSMOL, TSH3 #### [address] [address] Platelets (Bld) [#/Vol] 240 thou/mm3 Normal 130-400 [facility] Comment on above: Performed By: #### C BCWD, BMP, ACTM, ASAT, ETOHS, ANION, OSMOL, TSH3 #### [address] [address] RBC (Bld) [#/Vol] 5.74 mill/mm3 Normal 4.70-6.10 [facility] Comment on above: Performed By: #### C BCWD, BMP, ACTM, ASAT, ETOHS, ANION, OSMOL, TSH3 #### [address] [address] RDW-SD 40.7 fL Normal 35.0-45.0 [facility] Comment on above: Performed By: #### C BCWD, BMP, ACTM, ASAT, ETOHS, ANION, OSMOL, TSH3 #### [address] [address] WBC (Bld) [#/Vol] 9.1 thou/mm3 Normal 4.8-10.8 [facility] Comment on above: Performed By: #### C BCWD, BMP, ACTM, ASAT, ETOHS, ANION, OSMOL, TSH3 #### [address] [address] CBC auto differentialon 05-0 3-2020 Basophils (Bld) [#/Vol] 0.1 10*3/uL [place] Basophils/100 WBC (Bld) 0.7 % [place] Eosinophils (Bld) [#/Vol] 0.1 10*3/uL [place] Eosinophils/100 WBC (Bld) 1.1 % [place] Erythrocyte distribution width (RBC) [Ratio] 12.5 % 11.5 - 14.5 % [place] Hematocrit (Bld) [Volume fraction] 51.3 % 42 - 52 % [place] Hemoglobin (Bld) [Mass/Vol] 18.5 g/dL [place] Immature Grans (Abs) 0.09 [place] Immature granulocytes (Bld) [#/Vol] 1 % [place] Interpretation and review of laboratory results Abnormal [place] Lymphocytes (Bld) [#/Vol] 2.6 10*3/uL [place] Lymphocytes/100 WBC (Bld) 29.1 % [place] MCH (RBC) [Entitic mass] 32.2 pg 26 - 33 pg [place] MCHC (RBC) [Mass/Vol] 36.1 g/dL [place] MCV (RBC) [Entitic vol] 89.4 fL 80 - 94 fL [place] Monocytes (Bld) [#/Vol] 0.4 10*3/uL [place] Monocytes/100 WBC (Bld) 4.9 % [place] Nucleated RBC/100 WBC (Bld) [Ratio] 0 % /100 wbc [place] Comment on above: Performed at [facility] [address] [place] [address] Platelet mean volume (Bld) [Entitic vol] 9.8 fL 9.4 - 12.4 fL [place] Platelets (Bld) [#/Vol] 240 10*3/uL [place] RBC (Bld) [#/Vol] 5.74 10*6/uL [place] RDW-SD 40.7 fL 35 - 45 fL [place] Segmented neutrophils/100 WBC (Bld) 63.2 % [place] Segs Absolute 5.8 [place] WBC (Bld) [#/Vol] 9.1 10*3/uL [place] DRUG ABUSE SCREENon 02-26-20 20 AMPHETAMINE/METHAMPH Negative Normal NEGATIVE [facility] Comment on above: Performed By: #### U R_CS #### [facility] [address] [place] [address] BARBITURATE Negative Normal NEGATIVE [facility] Comment on above: Performed By: #### U R_CS #### [facility] [address] [place] [address] Benzodiazepines Ql (U) Negative Normal NEGATIVE [facility] Comment on above: Performed By: #### U R_CS #### [facility] [address] [place] [address] Cannabinoids Screen Ql (U) Negative Normal NEGATIVE [facility] Comment on above: Performed By: #### U R_CS #### [facility] [address] [place] [address] COCAINE METABOLITE Negative Normal NEGATIVE [facility] Comment on above: Performed By: #### U R_CS #### [facility] [address] [place] [address] Opiates Ql (U) Negative Normal NEGATIVE [facility] Comment on above: Performed By: #### U R_CS #### [facility] [address] [place] [id number] OXYCODONE Negative Normal NEGATIVE [facility] Comment on above: Performed By: #### U R_CS #### [facility] [address] [place] [address] Phencyclidine Ql (U) Negative Normal NEGATIVE [facility] Comment on above: Result Comment: A N egative result for a drug abuse screen test indicates that the drug concentration is below the following cutoffs: Amphetamine/Methamphetamine 1000 ng/ml Barbiturate 200 ng/ml Benzodiazapine 200 ng/ml Cannabinoids 50 ng/ml Cocaine Metabolite 300 ng/ml Opiates 300 ng/ml Oxycodone 100 ng/ml Phencyclidine 25 ng/ml A Positive result for a drug abuse screen test should be considered presumptive positive until/unless confirmed by another method. (Additional request) Quantitative values from a reference laboratory are available upon additional request. These results are for medical use only. Performed By: #### U R_CS #### [address] [address] ETHYL ALCOHOL BLOODon 2019 ETHYL ALCOHOL BLOOD < 0.[address] [facility] Comment on above: Performed By: #### C BCWD, BMP, ACTM, ASAT, ETOHS, ANION, OSMOL, TSH3 #### [address] [address] Ethanolon 02-26-2020 ETHYL ALCOHOL, SERUM < 0.01 0.00 % [place], [place] Comment on above: Performed at [facility] [address] [place] [address] Osmolalityon 02-26-2020 Osmolality Calc 279.0 [place], [place] Comment on above: Performed at [facility] [address] [place] [address] Otheron 02-26-2020 Interpretation and review of laboratory results Abnormal [place] SALICYLATEon 02-26-2020 SALICYLATE < 0.3 Low 2.0-10.0 [facility] Comment on above: Performed By: #### C BCWD, BMP, ACTM, ASAT, ETOHS, ANION, OSMOL, TSH3 #### [address] [address] Salicylate Levelon 0 Salicylate, Serum < 0.3 Low 2 - 10 mg/dL [place], [place] Comment on above: Performed at [facility] [address] [place] [address] TSH THIRD GENERATIONon 02-25 TSH THIRD GENERATION 5.000 uIU/mL High 0.400-4.20 [facility] Comment on above: Performed By: #### C BCWD, BMP, ACTM, ASAT, ETOHS, ANION, OSMOL, TSH3 #### [address] [address] TSH without Reflexon 020 Interpretation and review of laboratory results Abnormal [place], [place] TSH Qn 5.000 m[IU]/L [place] Comment on above: Performed at [facility] [address] [place] [address] URINE REFLEX C + Son 020 Bilirubin Ql (U) Negative Normal NEGATIVE [facility] Comment on above: Performed By: #### U R_CS #### [facility] [email or web address] [address] [address] BLOOD Negative Normal NEGATIVE [facility] Comment on above: Performed By: #### U R_CS #### [facility] [address] [place] [address] Character (U) CLEAR Normal CLEAR-SL C [facility] Comment on above: Performed By: #### U R_CS #### [facility] [email or web address] [address] [address] Color (U) YELLOW Normal STRAW-YELL [facility] Comment on above: Performed By: #### U R_CS #### [facility] [employer] [address] [place] [address] Glucose [Mass/Vol] Negative Normal NEGATIVE [facility] Comment on above: Performed By: #### U R_CS #### [facility] [employer] [address] [place] [address] Ketones Ql (U) Negative Normal NEGATIVE [facility] Comment on above: Performed By: #### U R_CS #### [facility] [employer] [address] [place] [address] Nitrite Ql (U) Negative Normal NEGATIVE [facility] Comment on above: Performed By: #### U R_CS #### [employer] [address] [place] [address] pH (Bld) 5.5 Normal 5.0 - 9.0 [facility] Comment on above: Performed By: #### U R_CS #### [facility] [address] [place] [address] Protein (U) [Mass/Vol] Negative Normal NEGATIVE [facility] Comment on above: Performed By: #### U R_CS #### [facility] [employer] [address] [place] [address] Specific gravity (U) [Rel density] 1.026 Normal 1.002-1.03 [facility] Comment on above: Performed By: #### U R_CS #### [facility] [email or web address] [address] Urobilinogen Qn (U) 1.0 eu/dl Normal 0.0 - 1.0 [facility] Comment on above: Performed By: #### U R_CS #### [facility] [email or web address] [address] WBC (Bld) [#/Vol] Negative Normal NEGATIVE [facility] Comment on above: Performed By: #### U R_CS #### [place] [address] Urinalysis Reflex to Culture on 02-26-2020 Bilirubin Urine Negative NEGATIVE [facility], [place] Blood, Urine Negative NEGATIVE [facility] Character, Urine CLEAR CLEAR-SL C [place] Comment on above: Performed at [facility] [employer] [facility] [address] [place] [address] Color, UA YELLOW STRAW-YELL [place] Glucose, Ur Negative NEGATIVE mg/dl [place] Ketones Ql (U) Negative NEGATIVE [place] Leukocyte esterase Test strip Ql (U) Negative NEGATIVE [place] Nitrite, Urine Negative NEGATIVE [place] pH, UA 5.5 [place] Protein (U) [Mass/Vol] Negative NEGATIVE [place], [place] Specific Darby, Urine 1.026 [place] Urobilinogen, Urine 1.0 [place] Urine Drug Screenon 02-26-20 20 AMPHETAMINE+METHAMPHETA MINE URINE SCREEN Negative NEGATIVE [facility], [place] Barbiturate Quant, Ur Negative NEGATIVE Nicole [facility] [place] Benzodiazepine Quant, Ur Negative NEGATIVE [facility] Cannabinoid Quant, Ur Negative NEGATIVE Nicole [facility], [place] Cocaine Metab Quant, Ur Negative NEGATIVE [place] Opiates, Urine Negative NEGATIVE [place] Oxycodone Negative NEGATIVE [place] PCP Quant, Ur Negative NEGATIVE [place] Comment on above: A Negative result for a drug abuse screen test indicates that the drug concentration is below the following cutoffs: Amphetamine/Methamphetamine 1000 ng/ml Barbiturate 200 ng/ml Benzodiazapine 200 ng/ml Cannabinoids 50 ng/ml Cocaine Metabolite 300 ng/ml Opiates 300 ng/ml Oxycodone 100 ng/ml Phencyclidine 25 ng/ml A Positive result for a drug abuse screen test should be considered presumptive positive until/unless confirmed by another method. (Additional request) Quantitative values from a reference laboratory are available upon additional request. These results are for medical use only. Performed at [facility] [address] [place] [address] Other 02-15-2020 Unremarkable left knee This report has been created using voice recognition software. It may contain minor errors which are inherent in voice recognition technology. Final report electronically signed by Dr. Alexander Vega on 02/15/2020 2:22 PM [place], [place] PROCEDURE: XR KNEE LEFT (3 VIEWS) CLINICAL INFORMATION: Left knee pain, unspecified chronicity . COMPARISON: No prior study. TECHNIQUE: Standing AP and lateral projections a sunrise patella projection. FINDINGS: No acute fracture or dislocation. Joint space is maintained. No joint effusion. No soft tissue normality. [place], [place] Sergey, [facility] Incoming Radiant Results From [employer] - 02/15/2020 2:24 PM EDT PROCEDURE: XR KNEE LEFT (3 VIEWS) CLINICAL INFORMATION: Left knee pain, unspecified chronicity . COMPARISON: No prior study. TECHNIQUE: Standing AP and lateral projections a sunrise patella projection. FINDINGS: No acute fracture or dislocation. Joint space is maintained. No joint effusion. No soft tissue normality. IMPRESSION: Unremarkable left knee This report has been created using voice recognition software. It may contain minor errors which are inherent in voice recognition technology. Final report electronically signed by Dr. Alexander Vega on 02/15/2020 2:22 PM [place] XR KNEE LEFT (3 VIEWS)on XR KNEE LEFT (3 VIEWS) PROCEDURE: XR KNE E LEFT (3 VIEWS) CLINICAL INFORMATION: Left knee pain, unspecified chronicity . COMPARISON: No prior study. TECHNIQUE: Standing AP and lateral projections a sunrise patella projection. FINDINGS: No acute fracture or dislocation. Joint space is maintained. No joint effusion. No soft tissue normality. IMPRESSION: Unremarkable left knee This report has been created using voice recognition software. It may contain minor errors which are inherent in voice recognition technology. Final report electronically signed by Dr. Alexander Vega on 02/15/2020 2:22 PM Interpreted by: Alexander Vega MD Signed by: Alexander Vega MD 02/15/[address] [facility] Vital Signs Date Time Vital Sign Value Performing Clinician Facility 02-17-2025 21:06-0400 Body height 172.72 cm Demetria Cifuentes APRN Work Phone: [facility] 02-17-2025 21:06-0400 Body temperature 98.6 [degF] Demetria Cifuentes APRN Work Phone: [facility] 02-17-2025 21:06-0400 Body weight 109.1 kg Demetria Cifuentes APRN Work Phone: [facility] 02-17-2025 21:06-0400 Diastolic blood pressure 78 mm[Hg] Demetria Cifuentes APRN Work Phone: [facility] 02-17-2025 21:06-0400 Heart rate 90 /min Demetria Cifuentes APRN Work Phone: [facility] 02-17-2025 21:06-0400 Respiratory rate 16 /min Demetria Cifuentes APRN Work Phone: [facility] 02-17-2025 21:06-0400 SaO2% (BldA) [Mass fraction] 98 % Demetria Cifuentes APRN Work Phone: [facility] 02-17-2025 21:06-0400 Systolic blood pressure 157 mm[Hg] Demetria Cifuentes APRN Work Phone: [facility] 01-09-2025 08:24-0400 Body weight 108.45 kg Demetria Cifuentes APRN Work Phone: [facility] 01-09-2025 07:30-0400 Body temperature 97.3 [degF] Demetria Esau TUCK POINTER HELPER Work Phone: [facility] 01-09-2025 07:30-0400 Diastolic blood pressure 76 mm[Hg] Demetriarosalba Cifuentes TUCK POINTER HELPER Work Phone: [facility] 01-09-2025 07:30-0400 Heart rate 77 /min Demetria Cifuentes TUCK POINTER HELPER Work Phone: [facility] 01-09-2025 07:30-0400 Respiratory rate 16 /min Demetria Cifuentes TUCK POINTER HELPER Work Phone: [facility] 01-09-2025 07:30-0400 SaO2% (BldA) [Mass fraction] 99 % Demetria Cifuentes TUCK POINTER HELPER Work Phone: [facility] 01-09-2025 07:30-0400 Systolic blood pressure 138 mm[Hg] Demetria Cifuentes TUCK POINTER HELPER Work Phone: [facility] 01-06-2025 16:04-0400 Body height 172.72 cm Demetria Cifuentes TUCK POINTER HELPER Work Phone: [facility] 01-05-2025 17:17-0400 Diastolic blood pressure 97 mm[Hg] PHYSICIAN NO [facility] 01-05-2025 17:17-0400 Heart rate 112 /min PHYSICIAN NO [facility] 01-05-2025 17:17-0400 Respiratory rate 16 /min PHYSICIAN NO [facility] 01-05-2025 17:17-0400 SaO2% (BldA) [Mass fraction] 96 % PHYSICIAN NO [facility] 01-05-2025 17:17-0400 Systolic blood pressure 140 mm[Hg] PHYSICIAN NO [facility] 01-05-2025 12:29-0400 Body height 172.72 cm PHYSICIAN NO [facility] 01-05-2025 12:29-0400 Body temperature 98.4 [degF] PHYSICIAN NO [facility] 01-05-2025 12:29-0400 Body weight 108 kg PHYSICIAN NO [facility] 08-04-2024 07:30-0400 Body temperature 97.8 [degF] HAILEE Caseacher Work Phone: [facility] 08-04-2024 07:30-0400 Diastolic blood pressure 67 mm[Hg] TUCK POINTER HELPERIvan Caseacher Work Phone: [facility] 08-04-2024 07:30-0400 Heart rate 89 /min TUCK POINTER HELPERIvan Caseacher Work Phone: [facility] 08-04-2024 07:30-0400 Respiratory rate 20 /min TUCK POINTER HELPERIvan Caseacher Work Phone: [facility] 08-04-2024 07:30-0400 SaO2% (BldA) [Mass fraction] 99 % TUCK POINTER HELPERIvan Gunterrbacher Work Phone: [facility] 08-04-2024 07:30-0400 Systolic blood pressure 116 mm[Hg] HAILEE Gunterrbacher Work Phone: [facility] 08-02-2024 15:22-0400 Body height 172.72 cm TUCK POINTER HELPERIvan Caseacher Work Phone: [facility] 08-01-2024 11:25-0400 Body weight 106.59 kg TUCK POINTER HELPERIvan Caseacher Work Phone: [facility] 08-01-2024 10:00-0400 Diastolic blood pressure 94 mm[Hg] HAILEE Gunterrbacher Work Phone: [facility] 08-01-2024 10:00-0400 Heart rate 75 /min TUCK POINTER HELPERIvan Caseacher Work Phone: [facility] 08-01-2024 10:00-0400 Respiratory rate 16 /min TUCK POINTER HELPERIvan Cifuentes Work Phone: [facility] 08-01-2024 10:00-0400 SaO2% (BldA) [Mass fraction] 97 % TUCK POINTER HELPERIvan CrumpDemetria Eviebrodyabena Work Phone: [facility] 08-01-2024 10:00-0400 Systolic blood pressure 141 mm[Hg] HAILEE Cifuentes Work Phone: [facility] 08-01-2024 03:09-0400 Body height 172.72 cm TUCK POINTER HELPERIvan Cifuentes Work Phone: [facility] 08-01-2024 03:09-0400 Body temperature 97.8 [degF] TUCK POINTER HELPERIvan Cifuentes Work Phone: [facility] 08-01-2024 03:09-0400 Body weight 109.35 kg TUCK POINTER HELPERIvan Casebrodyabena Work Phone: [facility] 07-27-2024 16:00-0400 Body height 172.72 cm [facility] 07-27-2024 16:00-0400 Body mass index (BMI) [Ratio] 35.4 kg/m2 [facility] 07-27-2024 16:00-0400 Body temperature 96.6 [degF] [facility] 07-27-2024 16:00-0400 Body weight 105.68 kg [facility] 07-27-2024 16:00-0400 Diastolic blood pressure 86 mm[Hg] [facility] 07-27-2024 16:00-0400 Heart rate 76 /min [facility] 07-27-2024 16:00-0400 SaO2% (BldA) [Mass fraction] 96 % [facility] 07-27-2024 16:00-0400 Systolic blood pressure 134 mm[Hg] [facility] 06-29-2024 10:41-0400 Body height 172.72 cm [facility] 06-29-2024 10:41-0400 Body mass index (BMI) [Ratio] 35.4 kg/m2 [facility] 06-29-2024 10:41-0400 Body weight 105.68 kg [facility] 06-29-2024 10:41-0400 Diastolic blood pressure 84 mm[Hg] [facility] 06-29-2024 10:41-0400 Heart rate 111 /min [facility] 06-29-2024 10:41-0400 Respiratory rate 12 /min [facility] 06-29-2024 10:41-0400 Systolic blood pressure 124 mm[Hg] [facility] 04-25-2024 11:19-0400 Blood Pressure Location Joel PATEL [facility] 04-25-2024 11:19-0400 Body temperature 98.6 [degF] Joel PATLE [facility] 04-25-2024 11:19-0400 Diastolic blood pressure 86 mm[Hg] Joel PATEL [facility] 04-25-2024 11:19-0400 Heart rate 95 /min Joel PATEL [facility] 04-25-2024 11:19-0400 Respiratory rate 16 /min Joel PATEL [facility] 04-25-2024 11:19-0400 Systolic blood pressure 139 mm[Hg] Joel PATEL [facility] 03-03-2024 12:58-0400 Body height 172.72 cm [facility] 03-03-2024 12:58-0400 Body mass index (BMI) [Ratio] 37.5 kg/m2 [facility] 03-03-2024 12:58-0400 Body weight 112.03 kg [facility] 03-03-2024 12:58-0400 Diastolic blood pressure 70 mm[Hg] [facility] 03-03-2024 12:58-0400 Heart rate 102 /min [facility] 03-03-2024 12:58-0400 SaO2% (BldA) [Mass fraction] 98 % [facility] 03-03-2024 12:58-0400 Systolic blood pressure 120 mm[Hg] [facility] 02-15-2024 10:57-0400 Body height 172.72 cm [facility] 02-15-2024 10:57-0400 Body mass index (BMI) [Ratio] 37.8 kg/m2 [facility] 02-15-2024 10:57-0400 Body weight 112.94 kg [facility] 02-15-2024 10:57-0400 Diastolic blood pressure 84 mm[Hg] [facility] 02-15-2024 10:57-0400 Heart rate 95 /min [facility] 02-15-2024 10:57-0400 SaO2% (BldA) [Mass fraction] 98 % [facility] 02-15-2024 10:57-0400 Systolic blood pressure 130 mm[Hg] [facility] 12-11-2023 13:06-0500 Body height 172.72 cm [facility] 12-11-2023 13:06-0500 Body mass index (BMI) [Ratio] 37.2 kg/m2 [facility] 12-11-2023 13:06-0500 Body temperature 99.7 [degF] [facility] 12-11-2023 13:06-0500 Body weight 111.13 kg [facility] 12-11-2023 13:06-0500 Diastolic blood pressure 84 mm[Hg] [facility] 12-11-2023 13:06-0500 Heart rate 110 /min [facility] 12-11-2023 13:06-0500 Respiratory rate 18 /min [facility] 12-11-2023 13:06-0500 SaO2% (BldA) [Mass fraction] 96 % [facility] 12-11-2023 13:06-0500 Systolic blood pressure 120 mm[Hg] [facility] 12-04-2023 08:30-0500 Body height 172.72 cm Demetria Cifuentes Other [employer] Other 12-04-2023 08:30-0500 Body mass index (BMI) [Ratio] 39.38 kg/m2 Demetria Cifuentes Other [employer] Other 12-04-2023 08:30-0500 Body weight 117.48 kg Demetria Cifuentes Other [employer] Other 12-04-2023 08:30-0500 Diastolic blood pressure 82 mm[Hg] Demetria Cifuentes Other [employer] Other 12-04-2023 08:30-0500 SaO2% (BldA) [Mass fraction] 98 % Demetria Cifuentes Other [employer] Other 12-04-2023 08:30-0500 Systolic blood pressure 136 mm[Hg] Demetria Cifuentes Other [employer] Other 10-16-2023 17:30-0500 Body height 172.72 cm Lynn Olivas Other [facility] 10-16-2023 17:30-0500 Body mass index (BMI) [Ratio] 42.57 kg/m2 Lynn Olivas Other [employer] Other 10-16-2023 17:30-0500 Body temperature 98.4 [degF] Lynn Olivas Other [employer] Other 10-16-2023 17:30-0500 Body weight 127.01 kg Lynn Deisy Other [employer] Other 10-16-2023 17:30-0500 Body weight 127 kg [facility] 10-16-2023 17:30-0500 Diastolic blood pressure 86 mm[Hg] Lynn Deisy Other [facility] 10-16-2023 17:30-0500 Respiratory rate 18 /min Lynn Deisy Other [employer] Other 10-16-2023 17:30-0500 SaO2% (BldA) [Mass fraction] 97 % Lynn Deisy Other [employer] Other 10-16-2023 17:30-0500 Systolic blood pressure 138 mm[Hg] Lynn Deisy Other [facility] 09-29-2022 19:40-0500 Body height 172.72 cm Lynn Deisy Other [employer] Other 09-29-2022 19:40-0500 Body mass index (BMI) [Ratio] 35.58 kg/m2 Lynn Deisy Other [employer] Other 09-29-2022 19:40-0500 Body weight 106.14 kg Lynn Deisy Other [employer] Other 09-29-2022 19:40-0500 Diastolic blood pressure 96 mm[Hg] Lynn Deisy Other [employer] Other 09-29-2022 19:40-0500 Respiratory rate 18 /min Lynn Deisy Other [employer] Other 09-29-2022 19:40-0500 SaO2% (BldA) [Mass fraction] 98 % Lynn Olivas Other [employer] Other 09-29-2022 19:40-0500 Systolic blood pressure 140 mm[Hg] Lynn Olivas Other [employer] Other 08-05-2020 08:00-0400 Body Temperature 98.01 [degF] [facility] [place] 08-05-2020 08:00-0400 BP Diastolic 82 mm[Hg] Fito [facility] 08-05-2020 08:00-0400 BP Systolic 133 mm[Hg] [facility] 08-05-2020 08:00-0400 Pulse (Heart Rate) 80 /min [facility] [place] 08-05-2020 08:00-0400 Respiratory Rate 14 /min [facility] 08-04-2020 19:36-0400 Pulse Oximetry 98 % [facility] [place] 08-01-2020 23:05-0400 BMI (Body Mass Index) 35.15 kg/m2 [facility] 08-01-2020 23:05-0400 Body weight 114.31 kg [facility] [place] 08-01-2020 23:05-0400 Height 180.3 cm [facility] [place] 08-01-2020 19:54-0400 Body Temperature 98.29 [degF] [facility], [place] 08-01-2020 19:54-0400 BP Diastolic 74 mm[Hg] [facility] , [place] 08-01-2020 19:54-0400 BP Systolic 119 mm[Hg] [facility] , [place] 08-01-2020 19:54-0400 Pulse (Heart Rate) 93 /min [facility] [place] 08-01-2020 19:54-0400 Pulse Oximetry 98 % Peace MartinezSandra [facility] , [place] 08-01-2020 19:54-0400 Respiratory Rate 17 /min Peace MartinezSandra [facility], [place] 07-31-2020 05:15-0400 BMI (Body Mass Index) 35.98 kg/m2 Peace MartinezYaraana [facility], [place] 07-31-2020 05:15-0400 Body weight 117.03 kg [facility] [place] 07-30-2020 13:31-0400 Height 180.3 cm [facility] MartinezYaraana [facility] , [place] 2020 07:46-0400 Body Temperature 95.5 [degF] [facility] [place] 2020 07:46-0400 BP Diastolic 72 mm[Hg] [facility] [place] 2020 07:46-0400 BP Systolic 130 mm[Hg] [facility] [place] 2020 07:46-0400 Pulse (Heart Rate) 93 /min Fito Villalobos [facility], [place] 2020 07:46-0400 Pulse Oximetry 96 % [facility]ito [facility]pl[facility]paul[facility] [place] 2020 07:46-0400 Respiratory Rate 18 /min Fito Villalobos [facility] 02-27-2020 00:33-0400 BMI (Body Mass Index) 39.28 kg/m2 [facility]ito [facility]pl[facility]paul[facility] 02-27-2020 00:33-0400 Body weight 120.66 kg Fito Salehpl[facility]ul[facility] 02-27-2020 00:33-0400 Height 175.3 cm [facility] 02-14-2020 13:12-0400 BMI (Body Mass Index) 40.5 kg/m2 [facility] Work Phone: 02-14-2020 13:12-0400 Body mass index (BMI) [Percentile] 99 {percentile} [facility] Work Phone: 02-14-2020 13:12-0400 Body Temperature 97.1 [degF] [facility] Work Phone: 02-14-2020 13:12-0400 Body weight 120.77 kg [facility] Work Phone: 02-14-2020 13:12-0400 BP Diastolic 78 mm[Hg] [facility] Work Phone: 02-14-2020 13:12-0400 BP Systolic 140 mm[Hg] [facility] Work Phone: 02-14-2020 13:12-0400 BSA (Body Surface Area) 2.31 m2 [facility] Work Phone: 02-14-2020 13:12-0400 Height 172.72 cm [facility] Work Phone: 02-14-2020 13:12-0400 Pain Level 3 1 [facility] Work Phone: 02-14-2020 13:12-0400 Pulse (Heart Rate) 84 /min [facility] Work Phone: 02-14-2020 13:12-0400 Pulse Oximetry 98 % [facility] Work Phone: 02-14-2020 13:12-0400 Respiratory Rate 16 /min [facility] Work Phone: Encounters Encounter Date Encounter Type Care Provider Facility Start: 02-17-2025 End: 02-17-2025 Emergency department patient visit Demetria Esau TUCK POINTER HELPER Work Phone: [facility] Work Phone: Start: 01-06-2025 Non-patient / Non-visit Toyin karlos Cifuentes TUCK POINTER HELPER Work Phone: [facility] Physician [facility] Work Phone: Start: 01-05-2025 End: 01-09-2025 Evaluation and management of inpatient PHYSICIAN NO [facility] Work Phone: Start: 01-05-2025 ambulatory [place] acility:[facility] Start: 01-05-2025 Registered Recurring Demetria Cifuentes APRN Work Phone: [facility] Start: 08-02-2024 Non-patient / Non-visit TUCK POINTER HELPER Brendan mariana Esau Work Phone: [facility] Physician [facility] Work Phone: Start: 08-01-2024 End: 08-04-2024 Evaluation and management of inpatient TUCK POINTER HELPER Demetria Esau Work Phone: [facility] Work Phone: Start: 07-27-2024 End: 07-27-[address] [facility] ed [facility] Work Phone: Start: 07-27-2024 End: 07-27-2024 Patient encounter procedure [facility] Physician [facility] Work Phone: Start: 06-29-2024 End: 06-29-[address] [facility] Work Phone: Start: 06-29-2024 End: 06-29-2024 Patient encounter procedure [facility] Physician [facility] Work Phone: Start: 06-13-2024 ambulatory Joel Davilai ty:YANE Ross Start: 04-25-2024 End: 06-01-2024 Pre-admission assessment Joel PATEL [facility] Start: 04-25-2024 End: 04-25-2024 ambulatory Joel PATEL Facility:YANE Ross Start: 04-25-2024 End: 04-25-2024 Patient encounter procedure Joel PATEL [facility] Start: 04-05-2024 ambulatory [facility] Start: 03-03-2024 End: 03-03-[address] [facility] Work Phone: Start: 03-03-2024 End: 03-03-2024 Patient encounter procedure [facility] Physician [facility] Work Phone: Start: 02-15-2024 End: 02-15-[address] [facility] Work Phone: Start: 02-15-2024 End: 02-15-2024 Patient encounter procedure [facility] Physician [facility] Work Phone: Start: 12-22-2023 Non-patient / Non-visit [facility] Physician [facility] Work Phone: Start: 12-11-2023 End: 12-11-[address] [facility] Work Phone: Start: 12-11-2023 End: 12-11-2023 Patient encounter procedure [facility] Physician [facility] Work Phone: Start: 12-08-2023 Non-patient / Non-visit [facility] Physician [facility] Work Phone: Start: 12-07-2023 ambulatory Joel Barber JORGE Davilai ty:YANE Newman Start: 12-04-2023 End: 12-04-2023 ambulatory Demetria Cifuentes Other [employer] Other Start: 12-04-2023 Office outpatient ne w 30 minutes Demetria Cifuentes [facility] Start: 11-30-2023 End: 11-30-2023 ambulatory JOSELINE MOJICA Not Available Start: 10-29-2023 End: 10-29-2023 ambulatory WAN ANGEL Not Available Start: 10-16-2023 End: 10-16-2023 ambulatory Lynn Olivas Other [employer] Other Start: 10-16-2023 Office outpatient vi sit 15 minutes Lynn Olivas [facility] Start: 10-16-2023 End: 10-16-2023 Patient encounter procedure [facility] Work Phone: Start: 01-24-2023 End: 01-24-2023 ambulatory [facility] Work Phone: Start: 01-24-2023 End: 01-24-2023 Patient encounter procedure [facility] [place] Work Phone: Start: 01-23-2023 End: 01-23-2023 ambulatory [facility] Work Phone: Start: 01-23-2023 End: 01-23-2023 Departed Referred [facility] [place] Work Phone: Start: 01-22-2023 End: 01-25-2023 Evaluation and management of inpatient DR NONE LISTED REQUEST Facility: Start: 01-22-2023 End: 01-22-2023 ambulatory [facility] Work Phone: Start: 01-22-2023 End: 01-22-2023 Departed Referred [facility] [place] Work Phone: Start: 09-29-2022 End: 09-29-2022 Departed Referred PICKLING MACHINE OPERATOR-C Lynn Olivas [facility] [place] Start: 09-29-2022 End: 09-29-2022 ambulatory PICKLING MACHINE OPERATOR-C Lynn Olivas [facility] Work Phone: Start: 09-29-2022 Office outpatient ne w 20 minutes Lynn Olivas [facility] Start: 04-20-2022 End: 04-24-2022 Evaluation and management of inpatient FITO VILLALOBOS [facility] Start: 08-01-2020 Patient encounter procedure Fito Villalobos [facility] Admitting Start: 07-30-2020 End: 08-02-2020 Evaluation and management of inpatient FITO VILLALOBOS [facility] Start: 07-30-2020 Patient encounter procedure Fito Villalobos [facility] [place] Start: 07-30-2020 End: 08-01-2020 Evaluation and management of inpatient Peace Hayes Work Phone: [address] Onc/Med Surg Comment on above: Suicide attempt by narendra bellamy drug overdose, initial encounter (HCC) (Primary Dx); Toxic metabolic encephalopathy Start: 02-27-2020 End: 02-27-2020 Patient encounter procedure Galileo Mcmanus Work Phone: [facility] Work Phone: Start: 02-26-2020 End: 2020 Evaluation and management of inpatient FITODEZ VILLALOBOS [facility] Start: 02-26-2020 Patient encounter procedure Fito Villalobos [facility], [place] Start: 02-15-2020 End: 02-16-2020 [facility] Start: 02-15-2020 End: 02-15-2020 Subsequent hospital visit by physician Sharon Sanchez Rm 1 [facility] Comment on above: Left knee pain, unsp ecified chronicity Start: 02-14-2020 End: 02-14-2020 Established patient Sofi Oteroirez Work Phone: [facility] Work Phone: Start: 02-14-2020 End: 02-14-2020 ambulatory Fito Salehyahaira Work Phone: [facility] Work Phone: Procedures Date Procedure Procedure Detail Performing Clinician Start: 08-03-2024 X-ray of lumbar spin e, two or three views TUCK POINTER HELPERIvan Cifuentes Work Phone: Start: 08-03-2024 X-ray of thoracic sp ine, two views TUCK POINTER HELPER Demetria Cifuentes Work Phone: Start: 08-03-2020 Glucose blood reagen t strip Harpreet C Vinicio Work Phone: Start: 08-03-2020 Glucose blood reagen t strip Harpreet C Vinicio Work Phone: Start: 08-03-2020 Glucose blood reagen t strip Harpreet C Vinicio Work Phone: Start: 08-03-2020 Hemoglobin glycosyla naresh a1c Sharri Opal Yung Work Phone: Start: 08-02-2020 Glucose blood reagen t strip Harpreet C Vinicio Work Phone: Start: 08-02-2020 Glucose blood reagen t strip Harpreet C Vinicio Work Phone: Start: 08-02-2020 RHYTHM STRIP REPORT Hpf Scanning Start: 08-02-2020 Glucose blood reagen t strip Harpreet C Vinicio Work Phone: Start: 08-02-2020 Glucose blood reagen t strip Harpreet C Vinicio Work Phone: Start: 08-01-2020 PULSE OXIMETRY, CONTINUOUS FITO VELEZDAT Start: 08-01-2020 Glucose blood reagen t strip FITO LILIA Start: 08-01-2020 COVID-19, ANTIBODY, TOTAL FITO LILIA Start: 08-01-2020 COVID-19 FITO VELEZSUNG APODACA Start: 08-01-2020 Blood count complete auto&auto difrntl wbc FITO VILLALOBOS Start: 08-01-2020 Comprehensive metabo lic panel FITO VILLALOBOS Start: 08-01-2020 Hepatic function panel FITO VILLALOBOS Start: 08-01-2020 Glucose blood reagen t strip Jean Pierre Barton Work Phone: Start: 08-01-2020 COVID-19, ANTIBODY, TOTAL Lizzeth Patel Work Phone: Start: 08-01-2020 COVID-19 Lizzeth Jesus kaylynn Work Phone: Start: 08-01-2020 DISCHARGE PATIENT FITO VILLALOBOS Start: 08-01-2020 PULSE OXIMETRY, CONTINUOUS FITO VILLALOBOS Start: 08-01-2020 Glucose blood reagen t strip Jean Pierre Barton Work Phone: Start: 08-01-2020 SUICIDE PRECAUTIONS RICH VILLALOBOS Start: 08-01-2020 PULSE OXIMETRY, CONTINUOUS FITO VILLALOBOS Start: 08-01-2020 Glucose blood reagen t strip FITO VILLALOBOS Start: 08-01-2020 DIET GENERAL FITO APODACA Start: 08-01-2020 Glucose blood reagen t strip Jean Pierre Barton Work Phone: Start: 08-01-2020 INITIATE OXYGEN THER APY PROTOCOL FITO VILLALOBOS Start: 08-01-2020 NASAL CANNULA OXYGEN SA HERON VILLALOBOS Start: 08-01-2020 PULSE OXIMETRY, CONTINUOUS FITO VILLALOBOS Start: 08-01-2020 Glucose blood reagen t strip FITO VILLALOBOS Start: 08-01-2020 Blood count complete auto&auto difrntl wbc FITO VILLALOBOS Start: 08-01-2020 Comprehensive metabo lic panel FITO VILLALOBOS Start: 08-01-2020 Hepatic function panel FITO VILLALOBOS Start: 08-01-2020 Glucose blood reagen t strip Jean Pierre Barton Work Phone: Start: 08-01-2020 BASIC METABOLIC PANE L W/ REFLEX TO MG FOR LOW K Del Rucker Work Phone: Start: 08-01-2020 Blood count complete auto&auto difrntl wbc Del Rucker Work Phone: Start: 08-01-2020 Hepatic function panel Lizzeth Patel Work Phone: Start: 08-01-2020 PULSE OXIMETRY, CONTINUOUS FITO VELEZDAT Start: 08-01-2020 PULSE OXIMETRY, CONTINUOUS FITO VELEZDAT Start: 07-31-2020 Glucose blood reagen t strip FITO VELEZDAT Start: 07-31-2020 PULSE OXIMETRY, CONTINUOUS FITO VELEZMARLENYS Start: 07-31-2020 Glucose blood reagen t strip Jean Pierre Wong Work Phone: Start: 07-31-2020 Glucose blood reagen t strip FITO VELEZDAT Start: 07-31-2020 PULSE OXIMETRY, CONTINUOUS FITO VELEZMARLENYS Start: 07-31-2020 Glucose blood reagen t strip Jean Pierre Wong Work Phone: Start: 07-31-2020 LAB SCANNED REPORT LYDIA VELEZDAT Start: 07-31-2020 LAB SCANNED REPORT Hpf Scanning Start: 07-31-2020 PULSE OXIMETRY, CONTINUOUS FITO VELEZDAT Start: 07-31-2020 Glucose blood reagen t strip FITO VELEZDAT Start: 07-31-2020 Glucose blood reagen t strip Jean Pierre Wong Work Phone: Start: 07-31-2020 IP CONSULT TO PSYCHIATRY FITO LILIA Start: 07-31-2020 Glucose blood reagen t strip FITO LILIA Start: 07-31-2020 INITIATE OXYGEN THER APY PROTOCOL FITO LILIA Start: 07-31-2020 NASAL CANNULA OXYGEN SA HERON LILIA Start: 07-31-2020 PULSE OXIMETRY, CONTINUOUS FITO LILIA Start: 07-31-2020 Glucose blood reagen t strip Jean Pierre Barton Work Phone: Start: 07-31-2020 Assay of ammonia FITO LILIA Start: 07-31-2020 Hepatic function panel FITODEZ VILLALOBOS Start: 07-31-2020 Ecg routine ecg w/le ast 12 lds w/i&r FITO VILLALOBOS Start: 07-31-2020 EKG REPORT FITO APODACA Start: 07-31-2020 SEIZURE PRECAUTIONS RICH VILLALOBOS Start: 07-31-2020 PULSE OXIMETRY, CONTINUOUS FITO VILLALOBOS Start: 07-31-2020 Assay of ammonia Lizzeth Patel Work Phone: Start: 07-31-2020 Hepatic function panel Lizzeth Patel Work Phone: Start: 07-31-2020 Ecg routine ecg w/le ast 12 lds trcg only w/o i&r Lizzeth Patel Work Phone: Start: 07-31-2020 EKG REPORT Hpf Scanni ng Start: 07-31-2020 Antidepressants tric yclic other cyclicals 1 or 2 FITO VILLALOBOS Start: 07-31-2020 Assay of thyroid stimulating hormone tsh FITO VILLALOBOS Start: 07-31-2020 Hemoglobin glycosyla naresh a1c FITO VILLALOBOS Start: 07-31-2020 Insulin antibodies LYDIA VILLALOBOS Start: 07-31-2020 Lipid panel FITO APODACA Start: 07-31-2020 Lipoprotein direct measurement ldl cholesterol FITO VILLALOBOS Start: 07-31-2020 Unlis misc path FITO MINA Start: 07-31-2020 SUICIDE PRECAUTIONS RICH VILLALOBOS Start: 07-31-2020 DAILY WEIGHTS FITO NASCIMENTO Start: 07-31-2020 PULSE OXIMETRY, CONTINUOUS FITO VILLALOBOS Start: 07-31-2020 Glucose blood reagen t strip FITO VILLALOBOS Start: 07-31-2020 Assay of thyroid stimulating hormone tsh Del Rucker Work Phone: Start: 07-31-2020 AUGIE-65 AUTOANTIBODY Anya Rucker Work Phone: Start: 07-31-2020 Hemoglobin glycosyla naresh a1c Del Rucker Work Phone: Start: 07-31-2020 Lipid panel Del P opuri Work Phone: Start: 07-31-2020 Lipoprotein direct measurement ldl cholesterol Del Chaim Work Phone: Start: 07-31-2020 DEBBYXENIATRIPPBradly Del Agustina bacalaz Work Phone: Start: 07-30-2020 Blood count complete auto&auto difrntl wbc FITO VILLALOBOS Start: 07-30-2020 Comprehensive metabo lic panel FITO VILLALOBOS Start: 07-30-2020 FULL CODE FITO CRISTINASHADLINDA Start: 07-30-2020 INITIATE OXYGEN THER APY PROTOCOL FITO VELEZDAT Start: 07-30-2020 IP CONSULT TO CASE MANAGEMENT FITO VELEZDAT Start: 07-30-2020 NASAL CANNULA OXYGEN SA HERON VELZEDAT Start: 07-30-2020 NEURO/VASCULAR CHECKS S DIMA VELEZMARLENYAna Start: 07-30-2020 NOTIFY PHYSICIAN (SPECIFY) FITO VELEZMARLENYAna Start: 07-30-2020 OT EVAL AND TREAT FITO VELEZMARLENYAna Start: 07-30-2020 PT EVAL AND TREAT FITO SALEHGLDAYSMITCHEL Start: 07-30-2020 PULSE OXIMETRY, CONTINUOUS FITO VILLALOBOS Start: 07-30-2020 REASON FOR NO MECHAN ICAL VTE PROPHYLAXIS FITO VELEZDAT Start: 07-30-2020 SITTER AT BEDSIDE FITO VELEZDAT Start: 07-30-2020 SUICIDE PRECAUTIONS RICH SALEHKALAAna Start: 07-30-2020 TELEMETRY MONITORING SA HERON SALEHKALAAna Start: 07-30-2020 VITAL SIGNS FITO CRISTINASHADLINDA Start: 07-30-2020 Glucose blood reagen t strip Guillermina Grubbs Work Phone: Start: 07-30-2020 PATIENT STATUS (FROM ED OR OR/PROCEDURAL) FITO VELEZMARLENYAna Start: 07-30-2020 Drug screen class list a FITO VELEZDAT Start: 07-30-2020 Assay of lactate FITO VELEZDAT Start: 07-30-2020 IP CONSULT TO SOFTWARE IMPLEMENTATION PROJECT MANAGER AL MEDICINE FITO VELEZDAT Start: 07-30-2020 Ecg routine ecg w/le ast 12 lds w/i&r FITO VELEZDAT Start: 07-30-2020 EKG REPORT FITO CRISTINASHADLINDA Start: 07-30-2020 Drug screen class list a Rene Cho Work Phone: Start: 07-30-2020 Radiologic exam ches t single view FITO VILLALOBOS Start: 07-30-2020 SUICIDE PRECAUTIONS RICH VILLALOBOS Start: 07-30-2020 Assay of lactate Brad korin Cho Work Phone: Start: 07-30-2020 ANION GAP (CALC) POC SA HERON VILLALOBOS Start: 07-30-2020 Blood count hemoglobin FITO VILLALOBOS Start: 07-30-2020 Calcium ionized FITO MINA Start: 07-30-2020 Chloride other source S DIMA VILLALOBOS Start: 07-30-2020 CREATININE W/GFR POI NT OF CARE FITO VILLALOBOS Start: 07-30-2020 Gluc bld gluc mntr d ev cleared fda spec home use FITO VILLALOBOS Start: 07-30-2020 Glucose blood reagen t strip FITO VILLALOBOS Start: 07-30-2020 LACTIC ACID,POINT OF CARE FITO VILLALOBOS Start: 07-30-2020 Potassium serum plasma/whole blood FITO VILLALOBOS Start: 07-30-2020 Sodium serum plasma or whole blood FITO VILLALOBOS Start: 07-30-2020 VENOUS BLOOD GAS, PO INT OF CARE FITO VILLALOBOS Start: 07-30-2020 Antidepressants tric yclic other cyclicals 1 or 2 FITO VILLALOBOS Start: 07-30-2020 Assay of lipase FITO MINA Start: 07-30-2020 Blood count complete auto&auto difrntl wbc FITO VILLALOBOS Start: 07-30-2020 Drug tst prsmv instr mnt chem analyzers pr date FITO VILLALOBOS Start: 07-30-2020 Ecg routine ecg w/le ast 12 lds trcg only w/o i&r Marixamolly Degroot Work Phone: Start: 07-30-2020 EKG REPORT Hpf Scanni ng Start: 07-30-2020 Radiologic exam ches t single view Rene Cho Work Phone: Start: 07-30-2020 ANION GAP (CALC) POC Ra vinod Hayes Work Phone: Start: 07-30-2020 Blood count hemoglobin Peace Hayes Work Phone: Start: 07-30-2020 CALCIUM, IONIC (POC) Ra vinod Hayes Work Phone: Start: 07-30-2020 Chloride [Moles/Vol] Ra vinod Hayes Work Phone: Start: 07-30-2020 CREATININE W/GFR POI NT OF CARE Peace Hayes Work Phone: Start: 07-30-2020 Gluc bld gluc mntr d ev cleared fda spec home use Peace Hayes Work Phone: Start: 07-30-2020 Glucose blood reagen t strip Peace Hayes Work Phone: Start: 07-30-2020 LACTIC ACID,POINT OF CARE Peace Hayes Work Phone: Start: 07-30-2020 Potassium [Moles/Vol] Abena Hayes Work Phone: Start: 07-30-2020 Sodium [Moles/Vol] Perez Hayes Work Phone: Start: 07-30-2020 VENOUS BLOOD GAS, PO INT OF CARE Peace Hayes Work Phone: Start: 07-30-2020 Assay of lipase Evelin Cho Work Phone: Start: 07-30-2020 Blood count complete auto&auto difrntl wbc Rene Cho Work Phone: Start: 07-30-2020 TOX SCR, BLD, ED Brad Cho Work Phone: Start: 07-30-2020 TRAZADONE Rene Lake arsesmer Work Phone: Start: 07-30-2020 End: 07-30-2020 Ecg routine ecg w/least 12 lds trcg only w/o i&r Rene Cho Work Phone: Start: 07-30-2020 End: 07-30-2020 EKG REPORT Hpf Scanning Start: 2020 DISCHARGE PATIENT FITO VILLALOBOS Start: 02-27-2020 FULL CODE FITO APODACA Start: 02-27-2020 PATIENT MONITORING C LOSE Q 15 MINUTES FITO VILLALOBOS Start: 02-27-2020 TOBACCO CESSATION EDUCATION FITO VILLALOBOS Start: 02-27-2020 VITAL SIGNS FITO APODACA Start: 02-27-2020 IP CONSULT TO SOCIAL WORK FITO VILLALOBOS Start: 02-27-2020 PATIENT STATUS (FROM ED OR OR/PROCEDURAL) FITO VILLALOBOS Start: 02-27-2020 DIET GENERAL FITO APODACA Start: 02-26-2020 Antibody bordetella RICH VILLALOBOS Start: 02-26-2020 Assay of acetaminophen FITO VILLALOBOS Start: 02-26-2020 Assay of ethanol FITO VILLALOBOS Start: 02-26-2020 Assay of osmolality blood FITO VILLALOBOS Start: 02-26-2020 Assay of salicylate RICH VILLALOBOS Start: 02-26-2020 Assay of thyroid stimulating hormone tsh FITO VILLALOBOS Start: 02-26-2020 Basic metabolic pane l calcium total FITO VILLALOBOS Start: 02-26-2020 Blood count complete auto&auto difrntl wbc FITO VILLALOBOS Start: 02-26-2020 Drug screen class list a FITO VILLALOBOS Start: 02-26-2020 Urnls dip stick/tabl et rgnt auto w/o microscopy FITO VILLALOBOS Start: 02-26-2020 Anion gap [Moles/Vol] M ohketurah Skelton Work Phone: Start: 02-26-2020 Assay of acetaminophen Vannessaketurah Skelton Work Phone: Start: 02-26-2020 Assay of ethanol Vannessaame d Costa Work Phone: Start: 02-26-2020 Assay of osmolality blood Vannessaketurah Skelton Work Phone: Start: 02-26-2020 Assay of salicylate Moh keturah Skelton Work Phone: Start: 02-26-2020 Assay of thyroid stimulating hormone tsh Corinne Skelton Work Phone: Start: 02-26-2020 Basic metabolic pane l calcium total Corinne Skelton Work Phone: Start: 02-26-2020 Blood count complete auto&auto difrntl wbc Corinne Skelton Work Phone: Start: 02-26-2020 Drug screen class list a Corinne Skelton Work Phone: Start: 02-26-2020 Urnls dip stick/tabl et rgnt auto w/o microscopy Corinne Skelton Work Phone: Start: 02-15-2020 Radiologic examinati on knee 3 views FITO VELEZMARINPAULAna Start: 02-15-2020 Radiologic examinati on knee 3 views Fito Salehgladysmitchel Work Phone: Start: 02-14-2020 DEPRESSION Fito cristinashadlinda Start: 02-14-2020 Diast bp <80 mm hg Lydia Velezmarlenyana Work Phone: Start: 02-14-2020 MIGRAINE HEADACHE Fito Villalobos Start: 02-14-2020 Psychotherapy w/ang ent 30 minutes Sofi Dorantes Work Phone: Start: 02-14-2020 Pt tobacco screen rc vd tlk Fito Villalobos Work Phone: Start: 02-14-2020 Pt-focused hlth risk assmt score doc stnd instrm Fito Salehkalaana Work Phone: Start: 02-14-2020 Syst bp >/= 140 mm hg S dima Velezdat Work Phone: Start: 02-14-2020 verbally berated, harassed, or intimidated Fito Velezmarlenyana None (qualifier value) Anjali PATEL NEGATED: Highlighted row has not occurred!Start: 02-14-2020 H/O: surgery Fito Villalobos Plan of Treatment Date Care Activity Detail Author Start: 01-09-2025 [facility] Start: 01-06-2025 [facility] Start: 01-06-2025 Referral to clinical training representative [facility] Start: 01-05-2025 Referral to [facility] Start: 01-05-2025 Hospital admission [facility] Start: 01-05-2025 [facility] Start: 08-04-2024 [facility] Start: 08-03-2024 Referral to clinical training representative [facility] Start: 08-02-2024 [facility] Start: 08-01-2024 Referral to [facility] Start: 08-01-2024 Hospital admission [facility] Start: 08-01-2024 [facility] Start: 06-29-2024 Patient referral [facility] Work Phone: Start: 02-16-2024 Patient referral [facility] Work Phone: Start: 02-15-2024 Patient referral [facility] Work Phone: Start: 12-17-2022 DTaP/Tdap/Td vaccine (7 - Td) DTaP/Tdap/Td vaccine (7 - Td) [place], [place] Start: 09-29-2022 [facility] Start: 08-03-2021 HbA1c (Bld) [Mass fraction] A1C test (Diabetic or Prediabetic) [place], [place] Start: 07-31-2021 HbA1c (Bld) [Mass fraction] A1C test (Diabetic or Prediabetic) [place] Start: 07-31-2021 Lipid panel Lipid screen [place], [place] Start: 08-04-2020 End: 08-01-2021 Basic metabolic 2000 panel Basic Metabolic Panel Lab Routine Toxic metabolic encephalopathy Expected: 08/04/2020, Expires: 08/01/2021 [place], [place] Comment on above: Expected: 08/04/2020 , Expires: 08/01/2021 Start: 06-26-2020 Influenza vaccination [place] Start: 03-15-2020 XR Knee 3 Views ([id number]) [facility] Work Phone: Start: 02-14-2020 [facility] Work Phone: Comment on above: Note: Please make a referral to: Start: 2019 Diabetic microalbumi luciano test Diabetic microalbuminuria test [place], [place] Start: 2017 Meningococcal (ACWY) vaccine (1 - 2-dose series) Meningococcal (ACWY) vaccine (1 - 2-dose series) [place] Start: 2016 HIV screening HIV screen [place], [place] Start: 01-01-2016 HPV vaccine (2 - Mal e 2-dose series) HPV vaccine (2 - Male 2-dose series) [place] Start: 2012 HPV vaccine (1 - Mal e 2-dose series) HPV vaccine (1 - Male 2-dose series) [place] Start: 2011 Diabetic foot examination Diabetic f oot exam [place] Start: 2011 Diabetic retinal exam Diabetic retin al exam [place] Start: 2008 DTaP/Tdap/Td vaccine (1 - Tdap) DTaP/Tdap/Td vaccine (1 - Tdap) [place] Start: 2007 Pneumococcal 0-64 ye ars Vaccine (1 of 1 - PPSV23) Pneumococcal 0-64 years Vaccine (1 of 1 - PPSV23) [place] Start: 09-04-2003 Hepatitis B vaccine (3 of 3 - Risk 3-dose series) Hepatitis B vaccine (3 of 3 - Risk 3-dose series) [place] Start: 06-29-2003 Hepatitis B vaccine (3 of 3 - 3-dose primary series) Hepatitis B vaccine (3 of 3 - 3-dose primary series) [place] Start: 2002 Hepatitis A vaccine (1 of 2 - 2-dose series) Hepatitis A vaccine (1 of 2 - 2-dose series) [place] Start: 2002 Measles,Mumps,Rubell a (MMR) vaccine (1 of 2 - Standard series) Measles,Mumps,Rubella (MMR) vaccine (1 of 2 - Standard series) [place] Start: 2002 Varicella vaccine (1 of 2 - 2-dose childhood series) Varicella vaccine (1 of 2 - 2-dose childhood series) [place] Start: 2001 Hepatitis B vaccine (1 of 3 - 3-dose primary series) Hepatitis B vaccine (1 of 3 - 3-dose primary series) [place] Basic Metabolic Pane l w/ Reflex to MG Basic Metabolic Panel w/ Reflex to MG Lab Routine Daily until discontinued starting 07/31/2020, 1 completed [place] Comment on above: Daily until disconti nued starting 07/31/2020, 1 completed CBC auto differential CBC auto d ifferential Lab Routine Daily until discontinued starting 07/31/2020, 1 completed [place] Comment on above: Daily until disconti nued starting 07/31/2020, 1 completed Chlamydia trachomati s DNA [Presence] in Unspecified specimen by HEIDY with probe detection [facility] Work Phone: Comprehensive metabo lic 2000 panel - Serum or Plasma [facility] Continuous pulse oximetry Pulse oximetry, continuous Respiratory Care Routine Every 4hr until discontinued starting 07/31/2020 [place] Comment on above: Every 4hr until disc ontinued starting 07/31/2020 End: 07-30-2020 AUGIE-65 AUTOANTIBODY AUGIE-65 AUTOANTIBODY Lab Add-On One Time for 1 Occurrences starting 07/30/2020 until 07/30/2020 [place] Comment on above: One Time for 1 Occur rences starting 07/30/2020 until 07/30/2020 AUGIE-65 AUTOANTIBODY AUGIE-65 AUTOA NTIBODY Lab Add-On 07/31/2020 12:26 AM EDT [place] HEPATIC FUNCTION PANEL HEPATIC F UNCTION PANEL Lab Routine Daily until discontinued starting 07/31/2020, 2 completed [place]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 depression and to ensure safety of self due to SI. Continue Strattera 40 mg PO Q daily Increase Lexapro to 10 mg PO Q daily and continue Lamictal 25 mg PO HS. Discussed risk of SJS Monitor suicidal behaviors for safety of self (15-minute face check). Recommend attending groups and psychoeducation for building coping skills. Typical short- and long-term side effects of the proposed medication regimen, including contraindications and clinically significant interactions, were discussed with the patient. Side effects include but not limited to sedation, suicide risk with antidepressants, accidental overdose, hypo or hypertension, QTC prolongation, rash, movement disorders (TD, EPS), overdose, weight gain, andappetite changes. Patient was advised to avoid driving, drinking or operating heavy machinery while taking psychiatric meds. Patient should reach out to medical provider if any of side effects occur. Patient voiced understanding of benefits and agreement with the treatment plan. Targeted symptoms and signs, possible therapeutic benefit, side effect and riskswere discussed. Case management will work on coordinating a safe discharge plan. Discussed withpatient risk and protective factors for suicide and violence in general. It is vital to follow up aftercare plans. I have reviewed evaluations by other providers (ER notes, nurses and staff). Prognosis: Factors to be considered are the chronicity and severity of the symptoms and signs, associated comorbidity, and differential diagnosis-motivation to get in treatment, response to treatment, adherence to treatment recommendations, and using skills. The patient's verbal consent was provided. Documented By: Blue Talbot MD [id number] Signed By: <Electronically signed by Blue Talbot MD> 08/03/24 0654 [facility] Work Phone: 1(230) 345-894710-08-2024 History and physical note Author Blue guerrero [facility] August 02, 2024 6:45am Note Date/Time August 01, 2024 11 :35am [facility] [address] [place] [address] Psychiatry H&P Signed Patient: Tracie Lott MR#: [id number] : 2000 Acct:[id number] Age/Sex: 24 / M Adm Date: 4 Loc: Room: [address] [place] [address] Type: ADM IN Attending Dr: Blue Talbot MD Copies to: MD Demetria Hastings APRN, ANDERSON~ Date of Service: 08/02/2024 HPI History of Present Illness History of present illness: Mr. Lott is a 24-year-old male who presents for suicidal ideation. He says his girlfriend and him broke up, she kicked him out of her house and he is now homeless. He is a severe diabetic with a psychiatric history of PTSD, borderline, major depression, generalized anxiety disorder and ADHD. Patient was personally seen by me on the day of the encounter. I reviewed the history and performed the ge elements of the assessment. I formulated the planof care and confirmed this with the resident as noted below Patient stated that he has been going through several stressors. He was recentlylaid off and broke up with GF. He does have 1 prior suicide attempt with pills, and said he had plans to kill himself now either with pills or jumping in traffic. He says there is no point and he has nowhere to go. He has no family waiting for him either. 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 He does have a significant history ofbeing hospitalized multiple times for suicidal ideation. Past psych history: Suicidal ideation, major depression, general anxiety disorder, borderline personality disorder, PTSD, ADHD Past hospitalizations: Endorses being hospitalized 8 times but never here. We have 1 note about [facility] Past suicide attempts: He endorses 1 serious suicide attempt overdosing on pills. Previous medications: He was previously prescribed BuSpar and Minipress, but he never refilled them. He is taking Strattera for his ADHD. Alcohol and drug use: He smokes 4 packs/day of cigarettes, but denies any other drugs or alcohol. He has been clean off alcohol since 2021. Living: Newly homeless Employment: Unemployed Review of Systems Constitutional: Pt denies fatigue, malaise. Neuro: Denies dizziness/lightheadedness. Denies TBI, seizure, memory loss. Denies numbness/tingling in extremities HEENT: Denies vision/hearing changes. Pulmonary: Endorses his baseline shortness of breath as a 4 pack/day smoker. Cardiac: Denies chest pain/pressure. Denies edema, palpitations. GI: Denies abdominal pain, heartburn, N/V. Denies constipation. Has some diarrhea as he is lactose intolerant and will not give up milk : Denies dysuria, hematuria, polyuria. ? Physical exam General: not in any acute distress Skin: intact HEENT: head atraumatic, face symmetrical. Pulm: Some wheezing. Breathing normally without excessive effort Cardio: Regular rate and rhythm Abdomen: Normal inspection Musculoskeletal: Moves all extremities, normal strength all extremities. Neuro: Pt alert, oriented x3. Gait normal. ? CNI: Intact, normal olfaction ? CNII: Visual bautista intact ? ? ?CNIII,IV,: EOM intact, no nystagmus. ? ? ?CNV: Sensation intact to light touch. ? ? ?CNVII: Raises eyebrows, smile/frown, puff out cheeks symmetrically. ? ? ?CNVIII: Hearing intact bilaterally. ? ? ?CNIX,X: Voice normal, soft palate elevation normal, symmetrical. ? ? ?CNXI: Shoulder shrug strong, equal bilaterally. ? ? ?CNXII: Tongue protrusion midline MSE Appearance: grossly normal. Fair grooming and hygiene, anxious, minimal eye contact. Mental Status: mental status grossly normal Mood: depressed Affect: Mood-congruent affect Speech and Movement: speech and movement normal. Regular rate, rhythm, volume, and tone. Non pressured. Attitude: cooperative Thought Process: normal Thought Content: Denies paranoid or delusional thoughts. Denied hallucinations, no homicidality and reports suicidality. Does not appear to be responding to internal stimuli. Insight: limited Judgment: limited [facility] Medical History PTSD (post-traumatic stress disorder) Borderline personality disorder Genital herpes simplex DM (diabetes mellitus) Family History Father Hypertension Heart disease Social History Smoking Status: Unknown if ever smoked Tobacco Type: cigarettes and e-cigarettes Meds Medications and Allergies Allergies No Known Allergies Allergy (Verified 08/01/24 03:12) Home Medications blood sugar diagnostic #100 ea 06/29/24 [Rx Confirmed 08/01/24] blood-glucose meter #1 ea 06/29/24 [Rx Confirmed 08/01/24] insulin glargine 100 unit/mL (3 mL) subcutaneous pen (Lantus Solostar U-100 Insulin) 36 unit (0.36 mL) subcut QPM 30 days #10.8 mL 06/29/24 [Rx Confirmed 08/01/24] insulin lispro 100 unit/mL subcutaneous pen (Humalog KwikPen (U-100) Insulin) 1 sliding scale dose subcut USEASDIRECTD 06/29/24 [History Confirmed 08/01/24] pen needle, diabetic 32 gauge x 1/4 (BD Ultra-Fine Micro Pen Needle) #100 ea 06/29/24 [Rx Confirmed 08/01/24] atomoxetine 40 mg capsule 40 mg PO DAILY 90 days #90 caps 07/27/24 [Rx Confirmed 08/01/24] fenofibrate nanocrystallized 145 mg tablet 145 mg PO DAILY 08/01/24 [History Confirmed 08/01/24] tizanidine 6 mg capsule 4 mg PO QHS PRN muscle spasticity 08/01/24 [History Confirmed 08/01/24] Exam Physical Exam Vital Signs: Temp Pulse Resp BP Pulse Ox O2 Del Method 97.3 F L 94 16 134/88 98 Room Air 08/01/24 11:25 08/01/24 11:25 08/01/24 11:25 08/01/24 11:25 08/01/24 11:25 08/01/24 11:25 Results - Psychiatry Labs 08/01/24 03:15 08/01/24 06:30 Psychiatry Labs: 08/01/24 08/01/24 08/01/24 03:15 05:13 06:30 RBC 5.39 Hgb 16.8 Hct 45.4 MCV 84.3 MCH 31.1 MCHC 36.9 H RDW 13.7 Plt Count 160 MPV 7.9 Sodium 134 L Potassium 4.1 Chloride 98 Carbon Dioxide 27.8 Anion Gap TNP BUN 14 Creatinine 1.02 Calcium 9.4 Total Bilirubin 0.9 AST 12 L ALT 16 Alkaline Phosphatase 43 Total Protein 6.9 Albumin 4.2 Urine Color Light-yellow Urine Appearance Clear Urine pH 6.0 Ur Specific Darby 1.034 H Urine Protein 20 H Urine Glucose (UA) >=1000 H Urine Ketones 1+ H Urine Occult Blood Negative Urine Nitrite Negative Ur Leukocyte Esterase Negative Urine RBC 1-2 Urine WBC 1-2 Assessment/Plan (1) Depression with suicidal ideation: Plan Admit to for management of depression and to ensure safety of self due to SI. Continue Strattera 40 mg PO Q daily Start Lexapro 5 mg PO Q daily and Lamictal 25 mg PO HS. Discussed risk of SJS Monitor suicidal behaviors for safety of self (15-minute face check). Recommend attending groups and psychoeducation for building coping skills. Typical short- and long-term side effects of the proposed medication regimen, including contraindications and clinically significant interactions, were discussed with the patient. Side effects include but not limited to sedation, suicide risk with antidepressants, accidental overdose, hypo or hypertension, QTC prolongation, rash, movement disorders (TD, EPS), overdose, weight gain, andappetite changes. Patient was advised to avoid driving, drinking or operating heavy machinery while taking psychiatric meds. Patient should reach out to medical provider if any of side effects occur. Patient voiced understanding of benefits and agreement with the treatment plan. Targeted symptoms and signs, possible therapeutic benefit, side effect and riskswere discussed. Case management will work on coordinating a safe discharge plan. Discussed withpatient risk and protective factors for suicide and violence in general. It is vital to follow up aftercare plans. I have reviewed evaluations by other providers (ER notes, nurses and staff). Prognosis: Factors to be considered are the chronicity and severity of the symptoms and signs, associated comorbidity, and differential diagnosis-motivation to get in treatment, response to treatment, adherence to treatment recommendations, and using skills. The patient's verbal consent was provided. Documented By: Blue Talbot MD [id number] Signed By: <Electronically signed by Blue Talbot MD> 08/02/24 0645 [facility] Work Phone: 1(255) 917-261107-01-2024 Hospital Discharge instructions Patient Education 04/25/2024 11:57:14 Steps to Quit Smoking Steps to Quit Smoking Smoking tobacco is the leading cause of preventable . It can affect almost every organ in the body. Smoking puts you and those around you at risk for developing many serious chronic diseases. Quitting smoking can be very challenging. Do not get discouraged if you are not successful the first time. Some people need to make many attempts to quit before they achieve long-term success. Do your best to stick to your quit plan, and talk with your health care provider if you have any questionsor concerns. How do I get ready to quit? When you decide to quit smoking, create a plan to help you succeed. Before you quit: Pick a date to quit. Set a date within the next 2 weeks to give you time to prepare. Write down the reasons why you are quitting. Keep this list in places where you will see it often. Tell your family, friends, and co-workers that you are quitting. Support from people you are close to can make quitting easier. Talk with your health care provider about your options for quitting smoking. Find out what treatment options are covered by your health insurance. Identify people, places, things, and activities that make you want to smoke (triggers). Avoid them. What first steps can I take to quit smoking? Throw away all cigarettes at home, at work, and in your car. Throw away smoking accessories, such as ashtrays and lighters. Clean your car. Make sure to empty the ashtray. Clean your home, including curtains and carpets. What strategies can I use to quit smoking? Talk with your health care provider about combining strategies, such as taking medicines while you are also receiving in-person counseling. Using these two strategies together makes you more likely to succeed in quitting than if you used either strategy on its own. If you are or , talk with your health care provider about finding counseling or other support strategies to quit smoking. Do not take medicine to help you quit smoking unless your health care provider tells you to. Quit right away Quit smoking completely, instead of gradually reducing how much you smoke over a period of time. Stopping smoking right away may be more successful than gradually quitting. Attend in-person counseling to help you build problem-solving skills. You are more likely to succeed in quitting if you attend counseling sessions regularly. Even short sessions of 10 minutes can be effective. Take medicine You may take medicines to help you quit smoking. Some medicines require a prescription. You can also purchase iwoa-tvr-ugaepsw medicines. Medicines may have nicotine in them to replace the nicotine in cigarettes. Medicines may: Help to stop cravings. Help to relieve withdrawal symptoms. Your health care provider may recommend: Nicotine patches, gum, or lozenges. Nicotine inhalers or sprays. Non-nicotine medicine that you take by mouth. Find resources Find resources and support systems that can help you quit smoking and remain smoke-free after you quit. These resources are most helpful when you use them often. They include: Online chats with a counselor. Telephone quitlines. Printed self-help materials. Support groups or group counseling. Text messaging programs. Mobile phone apps or applications. Use apps that can help you stick to your quit plan by providing reminders, tips, and encouragement. Examples of free services include Quit Guide from the CDC and smokefree.gov What can I do to make it easier to quit? Reach out to your family and friends for support and encouragement. Call telephone quitlines, such as 0-618-RJFC-NOW, reach out to support groups, or work with a counselor for support. Ask people who smoke to avoid smoking around you. Avoid places that trigger you to smoke, such as bars, parties, or smoke-break areas at work. Spend time with people who do not smoke. Lessen the stress in your life. Stress can be a smoking trigger for some people. To lessen stress, try: ?Exercising regularly. ?Doing deep-breathing exercises. ?Doing yoga. ?Meditating. What benefits will I see if I quit smoking? Over time, you should start to see positive results, such as: Improved sense of smell and taste. Decreased coughing and sore throat. Slower heart rate. Lower blood pressure. Clearer and healthier skin. The ability to breathe more easily. Fewer sick days. Summary Quitting smoking can be very challenging. Do not get discouraged if you are not successful the first time. Some people need to make many attempts to quit before they achieve long-term success. When you decide to quit smoking, create a plan to help you succeed. Quit smoking right away, not slowly over a period of time. Find resources and support systems that can help you quit smoking and remain smoke-free after you quit. This information is not intended to replace advice given to you by your health care provider. Make sure you discuss any questions you have with your health care provider. Document Revised: 10/03/2022 Document Reviewed: 10/03/2022 [employer] Patient Education 2022 [employer]. 04/25/2024 11:56:01 Vasectomy, Care After Vasectomy, Care After This sheet gives you information about how to care for yourself after your procedure. Your health care provider may also give you more specific instructions. If you have problems or questions, contact your health care provider. What can I expect after the procedure? After the procedure, it is common to have: Mild pain, swelling, or discomfort in your scrotum or redness on your scrotum. Some blood coming from your incisions or puncture sites for 1 or 2 days. Blood in your semen. Follow these instructions at home: Medicines Take ypoa-qbj-fyvrime and prescription medicines only as told by your health care provider. Avoid taking any medicines that contain aspirin or NSAIDs, such as ibuprofen. These medicines can make bleeding worse. Activity For the first 2 days after surgery, avoid physical activity and exercise that requires a lot of energy. Ask your health care provider what activities are safe for you. Do not take part in sports or perform heavy physical labor until your pain has improved, or until your health care provider says it is okay. You may have limits on the amount of weight you can lift as told by your health care provider. Do not ejaculate for at least 1 week after the procedure, or for as long as you are told. You may resume sexual activity 7 10 days after your procedure, or when your health care provider approves. Use a different method of control (contraception) until you have had test results thatconfirm that there is no sperm in your semen. Scrotal support Use scrotal support, such as a jockstrap or underwear with a supportive pouch, as needed for 1 weekafter your procedure. If you feel discomfort in your scrotum, you may remove the scrotal support to see if the discomfortis relieved. Sometimes scrotal support can press on the scrotum and cause or worsen discomfort. If your skin gets irritated, you may add some germ-free (sterile), fluffed bandages or a clean washcloth to the scrotal support. Managing pain and swelling If directed, put ice on the affected area. To do this: Put ice in a plastic bag. Place a towel between your skin and the bag. Leave the ice on for 20 minutes, 2 3 times a day. Remove the ice if your skin turns bright red. This is very important. If you cannot feel pain, heat, or cold, you have a greater risk of damage to the area. General instructions Check your incisions or puncture sites every day for signs of infection. Check for: ?Redness, swelling, or more pain. ?Fluid or blood. ?Warmth. ?Pus or a bad smell. Leave stitches (sutures) in place. The sutures will dissolve on their own and do not need to be removed. Keep all follow-up visits. This is important because you will need a test to confirm that there is no sperm in your semen. Multiple ejaculations are needed to clear out sperm that were beyond the vasectomy site. You will need one test result showing that there is no sperm in your semen before you can resume unprotected sex. This may take 2 4 months after your procedure. If you were given a sedative during the procedure, it can affect you for several hours. Do not drive or operate machinery until your health care provider says that it is safe. Contact a health care provider if: You have redness, swelling, or more pain around an incision or puncture site, or in your scrotum area. You have bleeding from an incision or puncture site. You have pus or a bad smell coming from an incision or puncture site. You have a fever. An incision or puncture site opens up. Get help right away if: You develop a rash. You have trouble breathing. Summary After your procedure, it is common to have mild pain, swelling, redness, or discomfort in your scrotum. For the first 2 days after surgery, avoid physical activity and exercise that requires a lot of energy. Put ice on the affected area. Leave the ice on for 20 minutes, 2 3 times a day. If you were given a sedative during the procedure, it can affect you for several hours. Do not drive or operate machinery until your health care provider says that it is safe. This information is not intended to replace advice given to you by your health care provider. Make sure you discuss any questions you have with your health care provider. Document Revised: 02/28/2021 Document Reviewed: 02/28/2021 [employer] Patient Education 2022 [employer]. 04/25/2024 11:56:01 Vasectomy Vasectomy Vasectomy is a procedure in which the vas deferens is cut and then tied or burned (cauterized). Thevas deferens is a tube that carries sperm from the testicle to the part of the body that drains urine from the bladder (urethra). This procedure blocks sperm from going through the vas deferens and penis during ejaculation. This ensures that sperm does not go into the vagina during sex. Vasectomy does not affect sexual desire or performance and does not prevent sexually transmitted infections. Vasectomy is considered a permanent and very effective form of control (contraception). The decision to have a vasectomy should not be made during a stressful time, such as after the loss of a or a divorce. You and your partner should decide on whether to have a vasectomy when you are sure that you do not want children in the future. Tell a health care provider about: Any allergies you have. All medicines you are taking, including vitamins, herbs, eye drops, creams, and njoc-vjg-zojhxeq medicines. Any problems you or family members have had with anesthetic medicines. Any blood disorders you have. Any surgeries you have had. Any medical conditions you have. What are the risks? Generally, this is a safe procedure. However, problems may occur, including: Infection. Bleeding and swelling of the scrotum. The scrotum is the sac that contains the testicles, blood vessels, and structures that help deliver sperm and semen. Allergic reactions to medicines. Failure of the procedure to prevent . There is a very small chance that the tied or cauterized ends of the vas deferens may reconnect (recanalization). If this happens, you could still make a woman . Pain in the scrotum that continues after you heal from the procedure. What happens before the procedure? Medicines Ask your health care provider about: ?Changing or stopping your regular medicines. This is especially important if you are taking diabetes medicines or blood thinners. ?Taking medicines such as aspirin and ibuprofen. These medicines can thin your blood. Do not take these medicines unless your health care provider tells you to take them. ?Taking zegv-end-xgeplub medicines, vitamins, herbs, and supplements. You may be told to take a medicine to help you relax (sedative) a few hours before the procedure. General instructions Do not use any products that contain nicotine or tobacco for at least 4 weeks before the procedure.These products include cigarettes, e-cigarettes, and chewing tobacco. If you need help quitting, ask your health care provider. Plan to have a responsible adult take you home from the hospital or clinic. If you will be going home right after the procedure, plan to have a responsible adult care for you for the time you are told. This is important. Ask your health care provider: ?How your surgery site will be marked. ?What steps will be taken to help prevent infection. These steps may include: ?Removing hair at the surgery site. ?Washing skin with a germ-killing soap. ?Taking antibiotic medicine. What happens during the procedure? You will be given one or more of the following: ?A sedative, unless you were told to take this a few hours before the procedure. ?A medicine to numb the area (local anesthetic). Your health care provider will feel, or palpate, for your vas deferens. To reach the vas deferens, one of two methods may be used: ?A very small incision may be made in your scrotum. ?A punctured opening may be made in your scrotum, without an incision. Your vas deferens will be pulled out of your scrotum and cut. Then, the vas deferens will be closedin one of two ways: ?Tied at the ends. ?Cauterized at the ends to seal them off. The vas deferens will be put back into your scrotum. The incision or puncture opening will be closed with absorbable stitches (sutures). The sutures will eventually dissolve and will not need to be removed after the procedure. The procedure will be repeated on the other side of your scrotum. The procedure may vary among health care providers and hospitals. What happens after the procedure? You will be monitored to make sure that you do not have problems. You will be asked not to ejaculate for at least 1 week after the procedure, or for as long as you are told. You will need to use a different form of contraception for 2 4 months after the procedure, until you have test results confirming that there are no sperm in your semen. You may be given scrotal support to wear, such as a jockstrap or underwear with a supportive pouch. If you were given a sedative during the procedure, it can affect you for several hours. Do not drive or operate machinery until your health care provider says that it is safe. Summary Vasectomy blocks sperm from being released during ejaculation. This procedure is considered a permanent and very effective form of control. Your scrotum will be numbed with medicine (local anesthetic) for the procedure. After the procedure, you will be asked not to ejaculate for at least 1 week, or for as long as you are told. You will also need to use a different form of contraception until your test results confirm that there are no sperm in your semen. This information is not intended to replace advice given to you by your health care provider. Make sure you discuss any questions you have with your health care provider. Document Revised: 02/28/2021 Document Reviewed: 02/28/2021 [employer] Patient Education 2022 [employer] Follow Up Care 12/07/2023 14:35:43 With:JORGE GALINDO, Joel Barber, URL Address: [facility] [address] [place] [address]- [phone] When: Unknown Comments:sched vasectomy [facility] 07-01-2024 NotePatient Education Pulmonary Medicine Steps to Quit Smoking Smoking tobacco is the leading cause of preventable . It can affect almost every organ in the body. Smoking puts you and those around you at risk for developing many serious chronic diseases. Quitting smoking can be very challenging. Do not get discouraged if you are not successful the first time. Some people need to make many attempts to quit before they achieve long-term success. Do your best to stick to your quit plan, and talk with your health care provider if you have any questionsor concerns. How do I get ready to quit? When you decide to quit smoking, create a plan to help you succeed. Before you quit: ? Pick a date to quit. Set a date within the next 2 weeks to give you time to prepare. ? Write down the reasons why you are quitting. Keep this list in places where you will see it often. ? Tell your family, friends, and co-workers that you are quitting. Support from people you are close to can make quitting easier. ? Talk with your health care provider about your options for quitting smoking. ? Find out what treatment options are covered by your health insurance. ? Identify people, places, things, and activities that make you want to smoke (triggers). Avoid them. What first steps can I take to quit smoking? ? Throw away all cigarettes at home, at work, and in your car. ? Throw away smoking accessories, such as ashtrays and lighters. ? Clean your car. Make sure to empty the ashtray. ? Clean your home, including curtains and carpets. What strategies can I use to quit smoking? Talk with your health care provider about combining strategies, such as taking medicines while you are also receiving in-person counseling. Using these two strategies together makes you more likely to succeed in quitting than if you used either strategy on its own. If you are or , talk with your health care provider about finding counseling or other support strategies to quit smoking. Do not take medicine to help you quit smoking unless your health care provider tells you to. Quit right away ? Quit smoking completely, instead of gradually reducing how much you smoke over a period of time. Stopping smoking right away may be more successful than gradually quitting. ? Attend in-person counseling to help you build problem-solving skills. You are more likely to succeed in quitting if you attend counseling sessions regularly. Even short sessions of 10 minutes can be effective. Take medicine You may take medicines to help you quit smoking. Some medicines require a prescription. You can also purchase gxjf-kgn-qmpahpo medicines. Medicines may have nicotine in them to replace the nicotine in cigarettes. Medicines may: ? Help to stop cravings. ? Help to relieve withdrawal symptoms. Your health care provider may recommend: ? Nicotine patches, gum, or lozenges. ? Nicotine inhalers or sprays. ? Non-nicotine medicine that you take by mouth. Find resources Find resources and support systems that can help you quit smoking and remain smoke-free after you quit. These resources are most helpful when you use them often. They include: ? Online chats with a counselor. ? Telephone quitlines. ? Printed self-help materials. ? Support groups or group counseling. ? Text messaging programs. ? Mobile phone apps or applications. Use apps that can help you stick to your quit plan by providing reminders, tips, and encouragement. Examples of free services include Quit Guide from the CDC and smokefree.gov What can I do to make it easier to quit? ? Reach out to your family and friends for support and encouragement. Call telephone quitlines, such as 5-642-FLMN-NOW, reach out to support groups, or work with a counselor for support. ? Ask people who smoke to avoid smoking around you. ? Avoid places that trigger you to smoke, such as bars, parties, or smoke-break areas at work. ? Spend time with people who do not smoke. ? Lessen the stress in your life. Stress can be a smoking trigger for some people. To lessen stress, try: ? Exercising regularly. ? Doing deep-breathing exercises. ? Doing yoga. ? Meditating. What benefits will I see if I quit smoking? Over time, you should start to see positive results, such as: ? Improved sense of smell and taste. ? Decreased coughing and sore throat. ? Slower heart rate. ? Lower blood pressure. ? Clearer and healthier skin. ? The ability to breathe more easily. ? Fewer sick days. Summary ? Quitting smoking can be very challenging. Do not get discouraged if you are not successful the first time. Some people need to make many attempts to quit before they achieve long-term success. ? When you decide to quit smoking, create a plan to help you succeed. ? Quit smoking right away, not slowly over a period of time. ? Find resources and support systems that can (more content not included)... [facility]02-09-2024 Evaluation note* Encounter Date Diagnosis Assessment Notes Treatment Notes Treatment Clinical Notes Nov, Anxiety (ICD-10 - F41.9) Patient is not suicidal or homicidal at this time. Discussed treatment options with patient today. It was decided in collaboration with the patient to will add Buspar daily for management with depression/anxiety. Medication profile and possible SE reviewed with patient today. Patient to take medication as directed and prescribed. Do not skip/miss doses and do not stop abruptly. Patient is not interested in counseling at this time. Warning s/s reviewed with patient today. Patient to go immediately to the ER should patient experience any of these. Follow up in 4 weeks to assess symptoms and medication effectiveness. Patient verbalizes understanding and agrees to treatment plan. Nov, Elevated triglycerides with high cholesterol (ICD-10 - E78.2) Lipid panel reviwed with patient. Dicsussed importance of maintaining an LDL level at specified goal. Discussed associated risk factors of hyperlipidemia including stroke and heart attack. Treatment with medications discussed and we have agrees upon appropirate action of treatment and goals. Discussed dietary modifications, including decreasing red meat consumption, decreased alcohol consumption, avoiding fried foods, and cake and cookies, and sweets. Encouraged increasing fiber in diet and eat a diet rich in omega-3. Encouraged to exericse at least 150 minutes weekly. Barriers to plan of care have been addressed. Follow-up as directed. Patient given a copy of the plan of care. Nov, Recurrent major depressive disorder, in partial remission (ICD-10 - F33.41) Remains stable on current therapeutic dose. Patient is encouraged to stay active and remain involved. Try to keep themselves busy. Take medication as directed and we will continue to monitor. Nov, Other chronic pain (ICD-10 - G89.29) Discussed with pt to call [facility] office to see whom he was referred to so that he can get the follow-up MRI that he was going to have to see the extent of the knee damage and if he will need surgery. Pt verbalizes understanding. Nov, Pain in left knee (ICD-10 - M25.562) Nov, Other specified diabetes mellitus with hyperglycemia (ICD-10 - E13.65) He is currently under the care of Dr. Joseline Mojica for his diabetes and is following with her monthly. He notes that he has not been officially diagnosed at Type 1 or 2 as he just recently had blood work to determine this. Prior to your visit today we reviewed your chart and outlined the testing and treatment needed for your care. We discussed possible complications of diabetes including risk of heart disease, stroke, and kidney disease. Your goal is to keep uou HgA1C below 7 (preferably <6.5) and your blood pressure less than 130/85 (and preferably < 120/80) and mataining a healthy weight with a BMI less than 26. We are working together to acheive these goals with the following plan; healthier diet, understanding your medications, and your compliance. Barriers to these goals have been discussed. You have been given educational handouts. 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 Take Tylenol or Motrin as needed for aches pains or fevers. Follow-up with your family physician for any further concerns. It is recommended that you do follow-up with your family physician to restart your medications. Off work today, may return to work on October 27, your next scheduled shift. Patient reports a history of migraine headaches, states this headache feels somewhat like his migraines. He had a headache this morning with nausea, he was sent home from work, took a nap and now he feels better. Patient states he is diabetic, has not taken any of his diabetic medications or checked his blood sugars for a while . Patient is encouraged to follow-up with his PCP to restart these medications. [employer] Other 12-05-2022 Evaluation note* Encounter Date Diagnosis Assessment Notes Treatment Notes Treatment Clinical Notes Sep, Genital herpes simplex, unspecified site (ICD-10 - A60.00) Genital herpes home care material was printed Drink plenty fluids, get plenty of rest. No intercourse for 2 weeks. You will be notified of your test results in 5 to 7 days. Take the valacyclovir as prescribed until gone. Take the Zithromax and metronidazole tablets as prescribed. Always use condoms. Follow-up with your family physician for any further concern Sep, High risk sexual behavior, unspecified type (ICD-10 - Z72.51) Sep, Other Sexually transmitted infections material was printed [employer] Other evaluation + Plan note Future Appointments Appointment Date:05/27/2024 09:00:00 AM Scheduled Provider: Location:[facility] Appointment Type:Urology CALL PAT FT Appointment Date:05/31/2024 10:00:00 AM Scheduled Provider: Location:[facility] Appointment Type:Urology FT Appointment Date:06/13/2024 09:30:00 AM Scheduled Provider:Joel PATEL MD Location:[facility] Appointment Type:URO Office Visit [facility] evaluation noteNo assessment information available [facility] Work Phone: evaluation note* Diagnosis Onset Date Resolution Status Bronchitis acute DM (diabetes mellitus) acute [facility] Work Phone: evaluation note* Diagnosis Onset Date Resolution Status Bronchitis acute Acute adjustment disorder with anxiety acute Chronic back pain acute Chronic pain of left knee ac umm Depression acute DM (diabetes mellitus) acute Hyperlipidemia acute Neuropathy acute Cellulitis of neck acute Chronic back pain acute Chronic pain of left knee ac umm [facility] Work Phone: Evaluation note* Diagnosis Onset Date Resolution Status DM (diabetes mellitus) acute Neuropathy acute [facility] Work Phone: evaluation note* Diagnosis Onset Date Resolution Status Acute adjustment disorder with anxiety acute ADHD acute Chronic back pain acute DM (diabetes mellitus) acute Hyperlipidemia acute Neuropathy acute Noncompliance acute ADHD acute Chronic back pain acute Neuropathy acute Noncompliance acute [facility] Work Phone: Evaluation note* Diagnosis Onset Date Resolution Status Acute adjustment disorder with anxiety acute ADHD acute Chronic back pain acute DM (diabetes mellitus) acute Hyperlipidemia acute Neuropathy acute Noncompliance acute ADHD acute Chronic back pain acute Neuropathy acute Noncompliance acute Chronic back pain acute Depression with suicidal ideation acute DM (diabetes mellitus) acute Hypertriglyceridemia acute [facility] Work Phone: Evaluation note* Diagnosis Onset Date Resolution Status Admit Date Depression acute January 05 4:51pm [facility] Work Phone: History general Narrative - Reported* Type Description Date Medical History DM (diabetes mellitus) [employer] [facility] [employer] Other Hiscucu general Narrative - Reported* Type Description Date Medical History DM (diabetes mellitus) Medical History Arthritis [facility] [employer] Other Hospital course Narrative No data available for this section [facility] Hospital Discharge instructions No data available for this section [facility] Hospital Discharge instructionsAmbulatory Orders* Referral to Endocrinology Location: None Selected [facility] Work Phone: Hospital Discharge instructions Additional Instructions Rest Avoid electronics Return here if any problems persist or [facility] Work Phone: Progress note No data available for this section [facility] Reason for Referral No Reason for Referral RecordedNo Reason for Referral RecordedNo Reason for Referral RecordedNo InformationNo InformationNo Information No data available for this section No data available for this section Assessments Findings Encounter Date Diabetes Risk Test Score was four score 02/14/2020 Open Access - Established with Fito Villalobos CNP 02/14/2020 F31.31 - Bipolar disorder, c urrent episode depressed, mild Open Access - Established with Fito Villalobos CNP 02/14/2020 M25.562 - Pain in left knee Open Access - Established with Fito Villalobos CNP 02/14/2020 Morbid obesity Open Access - Establ ished with Fito Velezdat [facility] 02/14/2020 Z68.41 - Body mass index (BM I) 40.0-44.9, adult Open Access - Established with Fito Lilia 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 02/14/2020 F31.31 - Bipolar disorder, c urrent episode depressed, mild Open Access - Established with Fitodez Villalobos [facility] 02/14/2020 M25.562 - Pain in left knee Open Access - Established with Fito Villalobos [facility] 02/14/2020 Morbid obesity Open Access - Establ ished with Fito Lilia [facility] 02/14/2020 Z68.41 - Body mass index (BM I) 40.0-44.9, adult Open Access - Established with Fito Lilia [facility] 02/14/2020 Diagnosis Left knee pain, unspecified chronicity Diagnosis Suicide attempt by multiple drug overdose, initial encounter (HCC) Toxic metabolic encephalopathy Diabetes (HCC) Major depression Major depressive disorder, single episode, unspecified ADHD Hypertriglyceridemia Pure hyperglyceridemia Instructions Instructions not supported for this document type No Instructions Recorded Instructions not supported for this document type No Instructions Recorded Instructions not supported for this document type No Instructions Recorded History of Present Illness History of Present Illness not supported for this document type No History of Present Illness Recorded History of Present Illness not supported for this document type No History of Present Illness Recorded History of Present Illness not supported for this document type No History of Present Illness Recorded* Nav Hodges RN - 08/01/2020 9:58 PM EDT Discharged to [facility] via [facility]. All personal belongings given. * Kamille Rea RN - 08/01/2020 6:58 PM EDT Called [facility] at [phone]. Spoke with Gabriela to let her know that pt's COVID test was negative. They will contact [facility] for transport.Pt will be going to room 226-2. * Lluvia Jones RCP - 08/01/2020 6:15 PM EDT RAPID Covid 19 swab taken from right nare, labeled, placed in red dot bag, [facility] for transport to laboratory per hospital policy and procedure. Patient tolerated procedure fairly well. * Lizzeth Patel MD - 08/01/2020 3:45 PM EDT Patient seen and examined in his room. No acute events overnight. Labs reviewed. Afebrile and hemodynamically stable. Patient medically cleared for transfer to [facility] Lizzeth Patel MD PGY-2, Internal Medicine Resident [facility] 08/01/2020 3:49 PM * Kamille Rea RN - 08/01/2020 3:[address] Anderson has a note in for patient. Note is in incomplete tab. Plan is to admit to inpatient psychiatric unit. [facility] sent to medical to review pt for clearance to transfer. * Del Rucker MD - 08/01/2020 7:48 AM EDT [facility] Internal Medicine Teaching Residency Program Inpatient Daily Progress Note Patient: Tracie Lott Date of : 2000 Acct: [id number] Room: 0447/0447-01 Admit date: 07/30/2020 Today's date: 08/01/20 Number of days in the hospital: 2 SUBJECTIVE Admitting Diagnosis: <principal problem not specified> CC: Intentional medication overdose Pt examined at bedside. Chart & results reviewed. He was pink slipped yesterday, Psychiatry unable to ascess yesterday will try to see him today Hemodynamically stable Denies any suicidal thoughts, drinking excess coffee to combat nicotine cravings No other complaints. HbA1C 8.9, poc glucose 197. Will monitor the pt now fore any signs and symptoms of medication overdose ROS: Constitutional: negative for chills, fevers, sweats Respiratory: negative for cough, dyspnea on exertion, hemoptysis, shortness of breath, wheezing Cardiovascular: negative for chest pain, chest pressure/discomfort, lower extremity edema, palpitations Gastrointestinal: negative for abdominal pain, constipation, diarrhea, nausea, vomiting Neurological: negative for dizziness, headache BRIEF HISTORY The patient is a pleasant 20 y.o. male with past medical history of type 2 diabetes mellitus, bipolar, insomnia, PTSD, ADHD, depression, Sidhu's palsy, hyperlipidemia presents to the ER with chief complaint of intentional overdose with medication . patient states that he was feeling low and he took 10 to 30 tablets of trazodone, greater than 10 tablets of hydroxyzine, 5 metformin tablets and unknown number of aripiprazole this afternoon and was somnolent and altered mental status and later brought to the ER. Patient is also states that he vomited twice with no hematemesis or bile. He also states that he has history of multiple suicide attempts. Pt denies chest pain, shortness of breath, palpitations, dizziness, lightheadedness, headache, focal neurological deficits, abdominal pain, diarrhea, Review of Systems Respiratory: Negative for cough, choking, chest tightness and shortness of breath. Cardiovascular: Negative for chest pain and palpitations. Gastrointestinal: Positive for nausea and vomiting. Negative for abdominal distention, abdominal pain and diarrhea. Endocrine: Negative for polyuria. Genitourinary: Negative for difficulty urinating. Neurological: Negative for dizziness, facial asymmetry, speech difficulty, weakness, light-headedness, numbness and headaches. Psychiatric/Behavioral: Negative for agitation. Initial Vitals on presentation : Patient was hypotensive, guzman and tachypneic with blood pressure of 72/53, pulse of 45, respiratory rate of 25, saturations at 95% room air Initial Course in the ED: 1 L normal saline, blood cell glucose 190<220 Significant Labs : Chest x-ray no acute findings, EKG QTC of 481, sinus bradycardia VBG pH of 7.4, PCO2 of 32.1, PO2 of 187.6, and his calcium 1.05, lactic acid whole blood 1 Treatment in ED : 2 Liters of normal saline. 07/31/2020 Psych consult placed and they will see the pt at 5pm. 08/01/2020 Jeffers slipped Psychiatry consult today unable to see him yesterday due to technical issues will monitor the pt for now OBJECTIVE Vital Signs: BP 122/76 Pulse 78 Temp 97.6 F (36.4 C) (Oral) Resp 16 Ht 5' 11 (1.803 m) Wt (!) 258 lb (117 kg) SpO2 98% BMI 35.98 kg/m Temp (24hrs), Av.8 F (36.6 C), Min:97.6 F (36.4 C), Max:97.9 F (36.6 C) In: 250 Out: - Physical Exam: Constitutional: This is a well developed, well nourished, 35-39.9 - Obesity Grade II 20 y.o. year old male who is alert, oriented, cooperative and in no apparent distress. Head: Atraumatic and Normocephalic EENT: PERRLA. ENLARGED PUPILS No conjunctival injections. Septum was midline, mucosa was without erythema, exudates or cobblestoning. No thrush was noted. Neck: Supple without thyromegaly. No elevated JVP. Trachea was midline. Respiratory: Chest was symmetrical without dullness to percussion. Breath sounds bilaterally were clear to auscultation. There were no wheezes, rhonchi or rales. There is no intercostal retraction oruse of accessory muscles. No egophony noted. Cardiovascular: Regular without murmur, clicks, gallops or rubs. Abdomen: Slightly rounded and soft without organomegaly. No rebound, rigidity or guarding was appreciated. Lymphatic: No lymphadenopathy. Musculoskeletal: Normal curvature of the spine. No gross muscle weakness. Extremities: No lower extremity edema, ulcerations, tenderness, varicosities or erythema. Muscle size, tone and strength are normal. No involuntary movements are noted. Skin: Warm and dry. Good color, turgor and pigmentation. No lesions or scars. No cyanosis or clubbing Neurological/Psychiatric: Patient denies any suicidal areas right now sitter at bedside the patient's general behavior, level of consciousness, thought content and emotional status is normal. Medications: Scheduled Medications: atorvastatin 40 mg Oral Daily enoxaparin 30 mg Subcutaneous BID sodium chloride flush 10 mL Intravenous 2 times per day famotidine 20 mg Oral BID insulin lispro 0-12 Units Subcutaneous TID WC insulin lispro 0-6 Units Subcutaneous Nightly Continuous Infusions: sodium chloride dextrose PRN Medicationsnicotine polacrilex, 2 mg, PRN sodium chloride flush, 10 mL, PRN acetaminophen, 650 mg, Q6H PRN Or acetaminophen, 650 mg, Q6H PRN polyethylene glycol, 17 g, Daily PRN promethazine, 12.5 mg, Q6H PRN Or ondansetron, 4 mg, Q6H PRN glucose, 15 g, PRN dextrose, 12.5 g, PRN glucagon (rDNA), 1 mg, PRN dextrose, 100 mL/hr, PRN Diagnostic Labs: CBC: Recent Labs 07/30/20 1345 08/01/20 0654 WBC 9.5 4.8 RBC 6.04* 5.07 HGB 19.2* 16.0 HCT 53.6* 46.5 MCV 88.7 91.7 RDW 12.6 12.6 PLT 226 141 BMP: Recent Labs 07/30/20 1345 07/30/20 1353 NA 139 -- K 3.9 -- CL 105 -- CO2 21 -- BUN 13 -- CREATININE 0.91 1.11 BNP: No results for input(s): BNP in the last 72 hours. PT/INR: No results for input(s): PROTIME, INR in the last 72 hours. APTT: No results for input(s): APTT in the last 72 hours. CARDIAC ENZYMES: No results for input(s): CKMB, CKMBINDEX, TROPONINI in the last 72 hours. Invalid input(s): CKTOTAL;3 FASTING LIPID PANEL: Lab Results Component Value Date CHOL 139 07/31/2020 HDL 20 (L) 07/31/2020 TRIG 406 (H) 07/31/2020 LIVER PROFILE: Recent Labs 07/30/20 1345 07/31/20 0541 AST 20 15 ALT 24 18 BILIDIR -- 0.13 BILITOT 0.84 0.52 ALKPHOS 49 39* MICROBIOLOGY: No results found for: CULTURE Imaging: Xr Chest Portable Result Date: 07/30/2020 No acute findings ASSESSMENT & PLAN ASSESSMENT / PLAN: Active Problems: Suicide attempt by multiple drug overdose (HCC) Diabetes (HCC) Major depression ADHD Toxic metabolic encephalopathy Hypertriglyceridemia Resolved Problems: * No resolved hospital problems. * Intentional medication overdose Jeffers slipped Serial EKG bradycardia to sinus rhythm. Urine toxicology negative. Monitor for signs and symptoms of bradycardia. Continue telemetry monitoring. Suicide precautions with sitter at bed side. Psych to see today will follow their recommendations. Diabetes Mellitus type 2. HBA1C 8.9 Blood glucose 190<198>148<197 Continue on medium dose ssa Hypoglycemia protocol poc glucose checks. DVT ppx: lovenox 40mg GI ppx: famotidine 20mg PT/OT/SW: ongoing Discharge Planning: ongoing Del Rucker MD Internal Medicine Resident, PGY- 1 [facility]; [place], [place] 08/01/2020, 7:48 AM Associated attestation - Jean Pierre Barton MD - 08/01/2020 5:57 PM EDT Attending Supervising Physician s Attestation Statement I have seen and examined Tracie Lott and the ge elements of all parts of the encounter have been performed by me. I agree with the assessment, plan and orders as documented by the Advanced Practice Provider. I discussed the findings and plans with the resident physician and agree as documented in his note . Additional Comments: no issues overnight. Family at bedside. Awaiting psychiatry evaluation. Possible home vs [facility] pending psych recommendations. * Kamille Rea RN - 07/31/2020 7:04 PM EDT Video conference did not happen earlier today. Mother is becoming more and more aggitated about what is going to be next in patient's care. Medical team is going to pink slip patient. Patricia PICKLING MACHINE OPERATOR sent acouple of messages in regards to resetting conference, whether video or by phone. * Kamille Rea RN - 07/31/2020 5:48 PM EDT Internet was down at consult appointment time for Psych. New time will be needed for tomorrow. Pt needs further resources from social work in regards to legal custody, social security. * Kailey Cantu OT - 07/31/2020 3:43 PM EDT Occupational Therapy Not Seen Note DATE: 07/31/2020 Name: Tracie Lott : 2000 Patient not available for Occupational Therapy due to: Per RN, pt independent. Pt with no OT acute care needs at this time, will defer OT eval. Please re-order OT if pt needs change during this admission. Next Scheduled Treatment: NA * Brenda Rivero, PT - 07/31/2020 1:34 PM EDT Physical Therapy DATE: 07/31/2020 NAME: Tracie Lott : 2000 Patient not seen this date for Physical Therapy due to: [] Blood transfusion in progress [] Hemodialysis [] Patient Declined [] Spine Precautions [] Strict Bedrest [] Surgery/ Procedure [] Testing [] Other [x] PT being discontinued at this time. Patient independent per RN with no acute PT needs. Will defer eval at this time. Please reorder PT if needs change this admission. [] PT being discontinued at this time as the patient has been transferred to palliative care. No further needs. Brenda Rivero, PT * Kamille Rea RN - 07/31/2020 11:19 AM EDT Home medications and current dosage placed in navigator. Pt is currently seeing Mayte Hilton an appointment for 08/03/2020 at 11:00 am. This is through [facility]. The office number is [phone]. The fax number for the practice is [phone]. Information was provided by patient's mother. * Del Rucker MD - 07/31/2020 6:30 AM EDT [facility] Internal Medicine Teaching Residency Program Inpatient Daily Progress Note Patient: Tracie Lott Date of : 2000 Acct: [id number] Room: [facility]7/0447- Admit date: 07/30/2020 Today's date: 07/31/20 Number of days in the hospital: 1 SUBJECTIVE Admitting Diagnosis: <principal problem not specified> CC: Intentional medication overdose Pt examined at bedside. Chart & results reviewed. No acute events overnight Hemodynamically stable Denies any suicidal thoughts. No other complaints Psych consult placed Will monitor the pt now fore any signs and symptoms of medication overdose ROS: Constitutional: negative for chills, fevers, sweats Respiratory: negative for cough, dyspnea on exertion, hemoptysis, shortness of breath, wheezing Cardiovascular: negative for chest pain, chest pressure/discomfort, lower extremity edema, palpitations Gastrointestinal: negative for abdominal pain, constipation, diarrhea, nausea, vomiting Neurological: negative for dizziness, headache BRIEF HISTORY The patient is a pleasant 20 y.o. male with past medical history of type 2 diabetes mellitus, bipolar, insomnia, PTSD, ADHD, depression, Sidhu's palsy, hyperlipidemia presents to the ER with chief complaint of intentional overdose with medication . patient states that he was feeling low and he took 10 to 30 tablets of trazodone, greater than 10 tablets of hydroxyzine, 5 metformin tablets and unknown number of aripiprazole this afternoon and was somnolent and altered mental status and later brought to the ER. Patient is also states that he vomited twice with no hematemesis or bile. He also states that he has history of multiple suicide attempts. Pt denies chest pain, shortness of breath, palpitations, dizziness, lightheadedness, headache, focal neurological deficits, abdominal pain, diarrhea, Review of Systems Respiratory: Negative for cough, choking, chest tightness and shortness of breath. Cardiovascular: Negative for chest pain and palpitations. Gastrointestinal: Positive for nausea and vomiting. Negative for abdominal distention, abdominal pain and diarrhea. Endocrine: Negative for polyuria. Genitourinary: Negative for difficulty urinating. Neurological: Negative for dizziness, facial asymmetry, speech difficulty, weakness, light-headedness, numbness and headaches. Psychiatric/Behavioral: Negative for agitation. Initial Vitals on presentation : Patient was hypotensive, guzman and tachypneic with blood pressure of 72/53, pulse of 45, respiratory rate of 25, saturations at 95% room air Initial Course in the ED: 1 L normal saline, blood cell glucose 190<220 Significant Labs : Chest x-ray no acute findings, EKG QTC of 481, sinus bradycardia VBG pH of 7.4, PCO2 of 32.1, PO2 of 187.6, and his calcium 1.05, lactic acid whole blood 1 Treatment in ED : 2 Liters of normal saline. 07/31/2020 Psych consult placed and they will see the pt at 5pm. OBJECTIVE Vital Signs: BP 130/74 Pulse 89 Temp 98 F (36.7 C) (Oral) Resp 18 Ht 5' 11 (1.803 m) Wt (!) 258 lb (117 kg) SpO2 100% BMI 35.98 kg/m Temp (24hrs), Av F (36.7 C), Min:98 F (36.7 C), Max:98 F (36.7 C) In: - Out: 800 [Urine:800] Physical Exam: Constitutional: This is a well developed, well nourished, 35-39.9 - Obesity Grade II 20 y.o. year old male who is alert, oriented, cooperative and in no apparent distress. Head: Atraumatic and Normocephalic EENT: PERRLA. ENLARGED PUPILS No conjunctival injections. Septum was midline, mucosa was without erythema, exudates or cobblestoning. No thrush was noted. Neck: Supple without thyromegaly. No elevated JVP. Trachea was midline. Respiratory: Chest was symmetrical without dullness to percussion. Breath sounds bilaterally were clear to auscultation. There were no wheezes, rhonchi or rales. There is no intercostal retraction oruse of accessory muscles. No egophony noted. Cardiovascular: Regular without murmur, clicks, gallops or rubs. Abdomen: Slightly rounded and soft without organomegaly. No rebound, rigidity or guarding was appreciated. Lymphatic: No lymphadenopathy. Musculoskeletal: Normal curvature of the spine. No gross muscle weakness. Extremities: No lower extremity edema, ulcerations, tenderness, varicosities or erythema. Muscle size, tone and strength are normal. No involuntary movements are noted. Skin: Warm and dry. Good color, turgor and pigmentation. No lesions or scars. No cyanosis or clubbing Neurological/Psychiatric: Patient denies any suicidal areas right now sitter at bedside the patient's general behavior, level of consciousness, thought content and emotional status is normal. Medications: Scheduled Medications: atorvastatin 40 mg Oral Daily enoxaparin 30 mg Subcutaneous BID sodium chloride flush 10 mL Intravenous 2 times per day famotidine 20 mg Oral BID insulin lispro 0-12 Units Subcutaneous TID WC insulin lispro 0-6 Units Subcutaneous Nightly Continuous Infusions: sodium chloride dextrose PRN Medicationssodium chloride flush, 10 mL, PRN acetaminophen, 650 mg, Q6H PRN Or acetaminophen, 650 mg, Q6H PRN polyethylene glycol, 17 g, Daily PRN promethazine, 12.5 mg, Q6H PRN Or ondansetron, 4 mg, Q6H PRN glucose, 15 g, PRN dextrose, 12.5 g, PRN glucagon (rDNA), 1 mg, PRN dextrose, 100 mL/hr, PRN Diagnostic Labs: CBC: Recent Labs 07/30/20 1345 WBC 9.5 RBC 6.04* HGB 19.2* HCT 53.6* MCV 88.7 RDW 12.6 PLT 226 BMP: Recent Labs 07/30/20 1345 07/30/20 1353 NA 139 -- K 3.9 -- CL 105 -- CO2 21 -- BUN 13 -- CREATININE 0.91 1.11 BNP: No results for input(s): BNP in the last 72 hours. PT/INR: No results for input(s): PROTIME, INR in the last 72 hours. APTT: No results for input(s): APTT in the last 72 hours. CARDIAC ENZYMES: No results for input(s): CKMB, CKMBINDEX, TROPONINI in the last 72 hours. Invalid input(s): CKTOTAL;3 FASTING LIPID PANEL: Lab Results Component Value Date CHOL 139 07/31/2020 HDL 20 (L) 07/31/2020 TRIG 406 (H) 07/31/2020 LIVER PROFILE: Recent Labs 07/30/20 1345 07/31/20 0541 AST 20 15 ALT 24 18 BILIDIR -- 0.13 BILITOT 0.84 0.52 ALKPHOS 49 39* MICROBIOLOGY: No results found for: CULTURE Imaging: Xr Chest Portable Result Date: 07/30/2020 No acute findings ASSESSMENT & PLAN ASSESSMENT / PLAN: Active Problems: Suicide attempt by multiple drug overdose (HCC) Diabetes (HCC) Major depression ADHD Toxic metabolic encephalopathy Hypertriglyceridemia Resolved Problems: * No resolved hospital problems. * Intentional medication overdose Urine toxicology negative. Monitor for signs and symptoms of bradycardia. Continue telemetry monitoring. Suicide precautions with sitter at bed side. Psych to see today at 5pm will follow their recommendations. Diabetes Mellitus type 2 Blood glucose 190<198>148 Continue on medium dose ssa Hypoglycemia protocol poc glucose checks. DVT ppx: lovenox 40mg GI ppx: famotidine 20mg PT/OT/SW: ongoing Discharge Planning: ongoing Del Rucker MD Internal Medicine Resident, PGY- 1 [facility]; [place], [place] 07/31/2020, 6:30 AM Associated attestation - Jean Pierre Barton MD - 07/31/2020 4:05 PM EDT Attending Supervising Physician s Attestation Statement I have seen and examined Tracie Lott and the ge elements of all parts of the encounter have been performed by me. I agree with the assessment, plan and orders as documented by the Advanced Practice Provider. I discussed the findings and plans with the resident physician and agree as documented in his note . See H&P 07/30 for more details. Additional Comments: 20 M who presented with drug overdose. States he took 50 pills of trazodone/ability/hydroxyzine/metformin. Unable to quantify amount of each. History of depression. Admitted for further evaluation. On exam: AAO, denies any active SI Impression: Drug overdose, suicide attempt Plan: - Suicide precautions - Sitter at bedside - Psychiatry consult - Follow up A1c * Lizzeth Patel MD - 07/31/2020 4:04 AM EDT This is a 20-year-old male with past medical history of type 2 diabetes mellitus, bipolar disorder,anxiety, ADHD, oppositional defiant behavior, self- harm and depression presents to the emergency department following intentional overdose with trazodone, Abilify hydroxyzine and metformin. Patient mentioned that he had been feeling low and wanted to commit suicide by intentional overdose. He took 10 to 30 pills of trazodone, Abilify (could not recollect the number), more than 10 pills of hydroxyzine and 5 pills of metformin. Following which patient had 2 episodes of vomiting nonbloody. Patienthas been feeling somnolent and drowsy since ingestion of pills. No other symptoms. In the ER, afebrile, hypotensive with blood pressure 72/53 bradycardic with heart rate 45 and saturating well on room air. Not in acute distress. Pertinent labs: Hemoglobin 19.2, hematocrit 53.6 LFT and BMP: WNL Blood tox: Unremarkable Urine drug screen: Unremarkable VBG: Respiratory alkalosis without metabolic compensation. pH 7.45, PCO2 32.1, PO2 187, bicarb 22.3. Likely secondary to respiratory depression from intoxication. EKG: Sinus bradycardia with heart rate in 40s. Frequent PVCs. Repeat EKG normal sinus rhythm. Assessment and plan 1. Intentional drug overdose: S/p fluid bolus. Follow-up trazodone and metformin assay. Follow-up repeat EKG in the a.m. Monitor mental status, electrolytes, creatinine and liver function. Supportivetherapy with IV fluids. Monitor for respiratory depression and the need for emergent intubation. Seizure precautions. Poison control was notified and recommended supportive management. 2. Toxic metabolic encephalopathy: Improving. Secondary to intentional drug overdose. Follow-up ammonia level. Continue IV fluids. 3. Suicide attempt: Suicide precaution and sitter at bedside. Follow-up psychiatric consult 4. Diabetes mellitus: Follow-up HbA1c and augie 65 autoantibody. On sliding scale insulin. Monitor blood glucose. Hypoglycemia protocol. On metformin at home. 5. Hypertriglyceridemia: Started on atorvastatin 40 mg daily 6. Bipolar disorder: Hold all psych meds. DVT prophylaxis: Lovenox 30 Mg subcutaneous twice daily GI prophylaxis: Pepcid 20 mg twice daily Case management: Consulted OT PT: Consulted Lizzeth Patel MD PGY-2, Internal Medicine Resident [facility] 07/31/2020 4:40 AM documented in this encounter Family History No Family History Records Found Description Last Updated migraines for mom 02/14/2020 Maternal history of type 2 diabetes johnathan itus 02/14/2020 Paternal history of hypertension 020 Medical History Relation Name Comments Bipolar Disorder Brother Depression Brother Heart Disease Father Bipolar Disorder Mother Depression Mother Relation Name Status Comments Brother Alive Father Alive Mother Alive Sister Alive Relationship Condition Age at Onset Recorded Date/T teri father Hypertension Unknown Heart disease Unknown Review of System Review of Systems not supported for this document type No Review of Systems Recorded Review of Systems not supported for this document type No Review of Systems Recorded Review of Systems not supported for this document type No Review of Systems Recorded Physical Exam Physical Exam not supported for this document type No Physical Exam Recorded Physical Exam not supported for this document type No Physical Exam Recorded Physical Exam not supported for this document type No Physical Exam Recorded Advance Directives No Advanced Directives Records FoundDocuments on File Type Date Recorded Patient Clothing Patternmaker Expl anation Advance Directives and Living Will Power of Posting Clerk Documents on File Type Date Recorded Patient Clothing Patternmaker Expl anation Advance Directives and Living Will Power of Posting Clerk Latest Code Status on File Code Status Date Activated Date Inactivated Comments Full Code 02/27/2020 12:09 AM Documents on File Type Date Recorded Patient Clothing Patternmaker Expl anation ACP-Advance Directive ACP-Power of Posting Clerk Latest Code Status on File Code Status Date Activated Date Inactivated Comments Full Code 08/01/2020 10:32 PM Full Code 07/30/2020 9:53 PM 08/01/2020 10:30 PM Full Code 02/27/2020 12:09 AM 2020 3:10 PM Documents on File Type Date Recorded Patient Clothing Patternmaker Expl anation ACP-Advance Directive ACP-Power of Posting Clerk Latest Code Status on File Code Status Date Activated Date Inactivated Comments Full Code 07/30/2020 9:53 PM Full Code 02/27/2020 12:09 AM 2020 3:10 PM Advance Directive Response Recorded Date/ Time Advance Directives No October 01, 2022 1:36pm Advance Directive Response Recorded Date/ Time Advance Directives No October 01, 2022 12:36pm Summary Purpose Discharge Instructions * Instructions* Lizzeth Patel MD - 08/01/2020 Please follow-up with your primary care physician after discharge for post hospital follow-up Please take your medications as prescribed Please have your labs done Please visit the ED if you have persistent or worsening symptoms documented in this encounter Chief Complaint and Reason for Visit Chief Complaint Nausea, Headaches Amb Documentation cough, congestion Chief Complaint Amb Documentation cough, congestion Amb Documentation [facility] d/c Reason for Visit Bronchitis DM (diabetes mellitus) Chief Complaint Amb Documentation cough, congestion Amb Documentation [facility] d/c check up Reason for Visit Bronchitis Acute adjustment disorder with anxiety Chronic back pain Chronic pain of left knee Depression DM (diabetes mellitus) Hyperlipidemia Neuropathy Cellulitis of neck Chronic back pain Chronic pain of left knee Chief Complaint blood sugar/medicati on discussion Reason for Visit DM (diabetes mellitu s) Neuropathy Chief Complaint blood sugar/medicati on discussion 4 week f/u Reason for Visit Acute adjustment dis order with anxiety ADHD Chronic back pain DM (diabetes mellitus) Hyperlipidemia Neuropathy Noncompliance ADHD Chronic back pain Neuropathy Noncompliance Chief Complaint blood sugar/medicati on discussion 4 week f/u Mental Health Eval Reason for Visit Acute adjustment dis order with anxiety ADHD Chronic back pain DM (diabetes mellitus) Hyperlipidemia Neuropathy Noncompliance ADHD Chronic back pain Neuropathy Noncompliance Chief Complaint blood sugar/medicati on discussion 4 week f/u Mental Health Eval Mental Health Eval Reason for Visit Acute adjustment dis order with anxiety ADHD Chronic back pain DM (diabetes mellitus) Hyperlipidemia Neuropathy Noncompliance ADHD Chronic back pain Neuropathy Noncompliance Chronic back pain Depression with suicidal ideation DM (diabetes mellitus) Hypertriglyceridemia Chief Complaint Admit Date SI January 05, 2025 4:5 1pm Reason for Visit Admit Date Depression January 05, 2025 4:5 1pm Chief Complaint Admit Date BH January 05, 2025 10: 13am SI January 05, 2025 4:5 1pm SI January 06, 2025 10: 37am Migraine February 17, 2025 8:5 9pm Reason for Visit Admit Date Depression January 05, 2025 4:5 1pm DM (diabetes mellitus) January 05, 2025 4:51pm Hyperlipidemia January 05, 2025 4:5 1pm Hypertriglyceridemia January 05, 2025 4: 51pm Noncompliance January 05, 2025 4:5 1pm Depression with suicidal ideation January 05, 2025 4:51pm Additional Source Comments Evaluations & Outcomes (unre cognized section and content) Includes: Evaluations & Outcomes for active GoalsNo Outcomes Recorded Includes: Evaluations & Outcomes for active GoalsNo Outcomes Recorded Includes: Evaluations & Outcomes for active GoalsNo Outcomes Recorded (unrecognized sect ion and content) No Status Records FoundNo Status Records FoundNo Status Records FoundNo Status Records FoundNo Status Records FoundNo Status Records FoundNo Status Records FoundNo Status Records FoundNo Status Records Found INFORMATION SOURCE (unrecogn ized section and content) DATE CREATED AUTHOR 03/11/2020 [facility] DATE CREATED AUTHOR AUTHOR'S ORGANIZ ATION 08/14/2020 [facility] DATE CREATED AUTHOR AUTHOR'S ORGANIZ ATION 04/25/2022 [facility] DATE CREATED AUTHOR AUTHOR'S ORGANIZ ATION 02/02/2023 [facility] DATE CREATED AUTHOR AUTHOR'S ORGANIZ ATION 03/06/2023 [facility] DATE CREATED AUTHOR AUTHOR'S ORGANIZ ATION 12/01/2023 [facility] EPIC DATE CREATED AUTHOR AUTHOR'S ORGANIZ ATION 04/05/2024 [facility] DATE CREATED AUTHOR AUTHOR'S ORGANIZ ATION 06/05/2024 [facility] DATE CREATED AUTHOR AUTHOR'S ORGANIZ ATION 03/07/2025 [facility] Reason for Visit (unrecogniz ed section and content) Reason Comments Ingestion Status Reason Specialty Diagnoses / Procedures Referre d By Contact Referred To Contact Diagnoses Suicide attempt by multiple drug overdose, initial encounter (HCC) Suicide attempt by multiple drug overdose, initial encounter (HCC) Marixa Degroot MD [address] [address] [facility] Care Teams (unrecognized sec tion and content) Team Status: Inactive Member Role Status Dates Shaikh Swapnil MD Attending Provider Active Team Status: Inactive Member Role Status Dates NON STAFF Attending Provider Active Team Status: Inactive Member Role Status Dates Lynn Olivas NP-C Attending Provider Active Team Status: Active Member Role Status Dates Demetria Cifuentes APRN PICKLING MACHINE OPERATOR-C Primary Care Provider Active Team Status: Inactive Member Role Status Dates CHELSEA Jones Attending Provider Active S tart: October 16, 2023 End: October 16, 2023 Team Status: Active Member Role Status Dates PHYSICIAN NO FAMILY Primary Care Provider Active Start: December 08, 2023 Carolina Gill Attending Provider Active Start: December 08, 2023 Team Status: Inactive Member Role Status Dates Demetria Cifuentes APRN PICKLING MACHINE OPERATOR-C Primary Care Provider Active Start: December 112023 End: December 11, 2023 CHELSEA Jones Attending Provider Active S tart: December 11, 2023 End: December 11, 2023 Team Status: Active Member Role Status Dates PHYSICIAN NO FAMILY Primary Care Provider Active Start: December 08, 2023 Carolina Gill LPN Attending Provider Active S tart: December 08, 2023 Team Status: Active Member Role Status Dates Demetria Cifuentes APRN PICKLING MACHINE OPERATOR-C Primary Care Provider Active Start: December 222023 ADONIS Marlow Attending Provider Active Start : December 22, 2023 Team Status: Inactive Member Role Status Dates Demetria Cifuentes APRN PICKLING MACHINE OPERATOR-C Primary Care Provider, Attending Provider Active Start: February 15, 2024 End: February 15, 2024 Team Status: Inactive Member Role Status Dates Demetria Cifuentes APRN PICKLING MACHINE OPERATOR-C Primary Care Provider, Attending Provider Active Start: March 03, 2024 End: March 03, 2024 Team Status: Inactive Member Role Status Dates Demetria Cifuentes APRN PICKLING MACHINE OPERATOR-C Primary Care Provider, Attending Provider Active Start: June 29, 2024 End: June 29, 2024 Team Status: Inactive Member Role Status Dates Demetria Cifuentes APRN PICKLING MACHINE OPERATOR-C Primary Care Provider, Attending Provider Active Start: July 27, 2024 End: July 27, 2024 Team Status: Active Member Role Status Dates Demetria Cifuentes APRN PICKLING MACHINE OPERATOR-C Primary Care Provider Active Start: July Yane Briscoe DO Emergency Provider Active Start: August 01, 2024 Blue Talbot MD Admit Provide r, Attending Provider Active Start: August 01, 2024 Team Status: Inactive Member Role Status Dates Demertia Cifuentes APRN PICKLING MACHINE OPERATOR-C Primary Care Provider Active Start: July End: August 04, 2024 Yane Briscoe DO Emergency Provider Active Start: August 01, 2024 End: August 04, 2024 Blue Talbot MD Admit Provide r, Attending Provider Active Start: August 01, 2024 End: August 04, 2024 Yane Kaur RN Other Provider Active Star t: August 01, 2024 End: August 04, 2024 Tiffanie Genao RN Other Provider Active Start : August 01, 2024 End: August 04, 2024 Ria Leach RN Other Provider Active Star t: August 01, 2024 End: August 04, 2024 Latasha Nettles RN Other Provider Active Start: O ctober 2023 End: August 04, 2024 Alicia Rivas RN Other Provider Active Start: Oc tober 2023 End: August 04, 2024 Amber Dillon DO Other Provider Active Start : August 01, 2024 End: August 04, 2024 Delano Vicente MD Other Provider Active Start : August 01, 2024 End: August 04, 2024 Von Roberts DO Other Provider Active Start: August 01, 2024 End: August 04, 2024 Flex Govea MD Other Provider Active Start: August 01, 2024 End: August 04, 2024 Sunshine Couch MD Other Provider Active Start : August 01, 2024 End: August 04, 2024 Ari Blackmon MD Other Provider Active Start: O ctober 2023 End: August 04, 2024 Rola Valdes APRN Other Provider Active Start: August 01, 2024 End: August 04, 2024 Aryan Santos MD Other Provider Active Start: August 01, 2024 End: August 04, 2024 Victor Hugo Menjivar MD Other Provider Active Start: O ctober 2023 End: August 04, 2024 Helen Hernandez MD Other Provider Active Start: August 01, 2024 End: August 04, 2024 Leti Tucker MD Other Provider Active Start: August 01, 2024 End: August 04, 2024 Mauricio White DO Other Provider Active Start: August 01, 2024 End: August 04, 2024 Nubia Dhaliwal MD Other Provider Active Start: Oc 2023 End: August 04, 2024 Panchito Ferro MD Other Provider Active Start: Jul ilir 2023 End: August 04, 2024 OLIVA HorneC Other Provider Active St art: August 01, 2024 End: August 04, 2024 Veronica Danielle APRN Other Provider Active Star t: August 01, 2024 End: August 04, 2024 Ramesh Garcia MD Other Provider Active Start: August 01, 2024 End: August 04, 2024 Oz Carrillo MD Other Provider Active Start: Oc tob2023 End: August 04, 2024 Salty Pena MD Other Provider Active Start: Jul ilir 2023 End: August 04, 2024 Adry Weeks MD Other Provider Active Star t: August 01, 2024 End: August 04, 2024 Tony Wayne MD Other Provider Active Start: O ctober 2023 End: August 04, 2024 Katie Cantu DO Other Provider Active Start: Oc tob2023 End: August 04, 2024 Escobar Jones DO Other Provider Active Start : August 01, 2024 End: August 04, 2024 Lynnette Garcia APRN Other Provider Active Start: August 01, 2024 End: August 04, 2024 Manohar Carter DO Other Provider Active Start: August 01, 2024 End: August 04, 2024 Dayan Perrin MD Other Provider Active Sta rt: August 01, 2024 End: August 04, 2024 Iza Finley APRN Other Provider Active Start : August 01, 2024 End: August 04, 2024 Hanna Correa APRN Other Provider Active St art: August 01, 2024 End: August 04, 2024 Wilfred Moreno MD Other Provider Active Start: O ctober 2023 End: August 04, 2024 Hudson Turner MD Other Provider Active S tart: August 01, 2024 End: August 04, 2024 Francisco Javier Lynne , DO Other Provider Active Star t: August 01, 2024 End: August 04, 2024 Karrie Dean DO Other Provider Active Start: August 01, 2024 End: August 04, 2024 Darius Pena MD Other Provider Active Start: August 01, 2024 End: August 04, 2024 Blair Ni MD Other Provider Active Start: August 01, 2024 End: August 04, 2024 Mesha Vasquez APRN Other Provider Active Star t: August 01, 2024 End: August 04, 2024 Xiomy Rocha MD Other Provider Active Start: O ctober 2023 End: August 04, 2024 Sam Wolfe MD Other Provider Active Start: Oc tober 2023 End: August 04, 2024 Saloni Curiel RN Other Provider Active Start: O ctober 2023 End: August 04, 2024 Team Status: Active Member Role Status Dates Demetria Cifuentes APRN PICKLING MACHINE OPERATOR-C Primary Care Provider Active Start: July Yane Briscoe DO Emergency Provider Active Start: August 02, 2024 Blue Talbot MD Admit Provide r, Attending Provider, Other Provider Active Start: August 02, 2024 Team Status: Active Member Role Status Dates PHYSICIAN NO FAMILY Primary Care Provider Active Team Status: Active Member Role Status Dates PHYSICIAN NO FAMILY Primary Care Provider Active Start: January 05, 2025 Guillermina Shetty APRN Emergency Provider Active Start: January 05, 2025 Blue Talbot MD Admit Provide r, Attending Provider Active Start: January 05, 2025 Team Status: Active Member Role Status Dates Counts Include [facility] Primary Care Provider Ac tive Team Status: Active Member Role Status Dates Demetria Cifuentes APRN PICKLING MACHINE OPERATOR-C Primary Care Provider Active Start: January 05, 2025 Blue Talbot MD Attending Provider Active Start: January 05, 2025 Team Status: Inactive Member Role Status Dates PHYSICIAN NO FAMILY Primary Care Provider Active Start: January 05, 2025 End: January 09, 2025 Guillermina Shetty APRN Emergency Provider Active Start: January 05, 2025 End: January 09, 2025 Yane Kaur , ANGELO Other Provider Active Star t: January 05, 2025 End: January 09, 2025 Tiffanie Genao , ANGELO Other Provider Active Start : January 05, 2025 End: January 09, 2025 Ria Leach RN Other Provider Active Star t: January 05, 2025 End: January 09, 2025 Latasha Nettles RN Other Provider Active Start: [facility] 2024 End: January 09, 2025 Alicia Rivas RN Other Provider Active Start: [facility] 2024 End: January 09, 2025 Juan M Beltran MD Other Provider Active Start: January 05, 2025 End: January 09, 2025 Amber Dillon DO Other Provider Active Start : January 05, 2025 End: January 09, 2025 Delano Vicente MD Other Provider Active Start : January 05, 2025 End: January 09, 2025 Von Roberts DO Other Provider Active Start: January 05, 2025 End: January 09, 2025 Flex Govea MD Other Provider Active Start: January 05, 2025 End: January 09, 2025 Sunshine Couch MD Other Provider Active Start : January 05, 2025 End: January 09, 2025 Mauricio Alcazar DO Other Provider Active St art: January 05, 2025 End: January 09, 2025 Ari Blackmon MD Other Provider Active Start: [facility] 2024 End: January 09, 2025 Rola Valdse APRN Other Provider Active Start: January 05, 2025 End: January 09, 2025 Aryan Santos MD Other Provider Active Start: January 05, 2025 End: January 09, 2025 Victor Hugo Menjivar MD Other Provider Active Start: [facility] 2024 End: January 09, 2025 Helen Hernadnez MD Other Provider Active Start: January 05, 2025 End: January 09, 2025 Leti Tucker MD Other Provider Active Start: January 05, 2025 End: January 09, 2025 Mauricio White DO Other Provider Active Start: January 05, 2025 End: January 09, 2025 Nubia Dhaliwal MD Other Provider Active Start: [facility] 2024 End: January 09, 2025 Panchito Ferro MD Other Provider Active Start: [facility] 2024 End: January 09, 2025 Gabriela Montanez NP-C Other Provider Active St art: January 05, 2025 End: January 09, 2025 Veronica Danielle APRN Other Provider Active Star t: January 05, 2025 End: January 09, 2025 Ramesh Garcia MD Other Provider Active Start: January 05, 2025 End: January 09, 2025 Oz Carrillo MD Other Provider Active Start: [facility] 2024 End: January 09, 2025 Salty Pena MD Other Provider Active Start: [facility] 2024 End: January 09, 2025 Adry Weeks MD Other Provider Active Star t: January 05, 2025 End: January 09, 2025 Tony Wayne MD Other Provider Active Start: [facility] 2024 End: January 09, 2025 Katie Cantu DO Other Provider Active Start: [facility] 2024 End: January 09, 2025 Escobar Jones DO Other Provider Active Start : January 05, 2025 End: January 09, 2025 Lynnette Garcia APRN Other Provider Active Start: January 05, 2025 End: January 09, 2025 Manohar Carter DO Other Provider Active Start: January 05, 2025 End: January 09, 2025 Dayan Perrin MD Other Provider Active Sta rt: January 05, 2025 End: January 09, 2025 Iza Finley APRN Other Provider Active Start : January 05, 2025 End: January 09, 2025 Hanna Correa APRN Other Provider Active St art: January 05, 2025 End: January 09, 2025 Wilfred Moreno MD Other Provider Active Start: [facility] 2024 End: January 09, 2025 Hudson Turner MD Other Provider Active S tart: January 05, 2025 End: January 09, 2025 Francisco Javier Lynne , Other Provider Active Star t: January 05, 2025 End: January 09, 2025 Karrie Dean DO Other Provider Active Start: January 05, 2025 End: January 09, 2025 Darius Pena MD Other Provider Active Start: January 05, 2025 End: January 09, 2025 Blair Ni MD Other Provider Active Start: January 05, 2025 End: January 09, 2025 Mesha Vasquez APRN Other Provider Active Star t: January 05, 2025 End: January 09, 2025 Xiomy Rocha MD Other Provider Active Start: [facility] 2024 End: January 09, 2025 Sam Wolfe MD Other Provider Active Start: [facility] 2024 End: January 09, 2025 Emeka Cantor MD Other Provider Active Start: January 05, 2025 End: January 09, 2025 Ari Hazel MD Other Provider Active Start : January 05, 2025 End: January 09, 2025 Wale Beck MD Other Provider Active Start: [facility] 2024 End: January 09, 2025 Nicolasa Cramer APRN Other Provider Active Sta rt: January 05, 2025 End: January 09, 2025 Nathaniel Garcia APRN Other Provider Active Start: January 05, 2025 End: January 09, 2025 Saloni Curiel RN Other Provider Active Start: [facility] 2024 End: January 09, 2025 Ceferino Edwards MD Attending Provider Active St art: January 05, 2025 End: January 09, 2025 Blue Talbot MD Admit Provider Active Start: January 05, 2025 End: January 09, 2025 Team Status: Active Member Role Status Dates PHYSICIAN NO FAMILY Primary Care Provider Active Start: January 06, 2025 Guillermina Shetty APRN Emergency Provider Active Start: January 06, 2025 Blue Talbot MD Admit Provide r, Attending Provider, Other Provider Active Start: January 06, 2025 Yane Kaur , ANGELO Other Provider Active Star t: January 06, 2025 Tiffanie Genao , ANGELO Other Provider Active Start : January 06, 2025 Ria Leach RN Other Provider Active Star t: January 06, 2025 Latasha Nettles RN Other Provider Active Start: [facility] 2024 Alicia Rivas RN Other Provider Active Start: [facility] 2024 Juan M Beltran MD Other Provider Active Start: January 06, 2025 Amber Dillon DO Other Provider Active Start : January 06, 2025 Delano Vicente MD Other Provider Active Start : January 06, 2025 Von Roberts DO Other Provider Active Start: January 06, 2025 Flex Govea MD Other Provider Active Start: January 06, 2025 Sunshine Couch MD Other Provider Active Start : January 06, 2025 Mauricio Alcazar DO Other Provider Active St art: January 06, 2025 Ari Blackmon MD Other Provider Active Start: [facility] 2024 Rola Valdes APRN Other Provider Active Start: January 06, 2025 Aryan Santos MD Other Provider Active Start: January 06, 2025 Victor Hugo Menjivar MD Other Provider Active Start: [facility] 2024 Helen Hernandez MD Other Provider Active Start: January 06, 2025 Leti Tucker MD Other Provider Active Start: January 06, 2025 Mauricio White DO Other Provider Active Start: January 06, 2025 Nubia Dhaliwal MD Other Provider Active Start: [facility] 2024 Panchito Ferro MD Other Provider Active Start: [facility] 2024 Gabriela Montanez , PICKLING MACHINE OPERATOR-C Other Provider Active St art: January 06, 2025 Veronica Danielle APRN Other Provider Active Star t: January 06, 2025 Ramesh Garcia MD Other Provider Active Start: January 06, 2025 Oz Carrillo MD Other Provider Active Start: [facility] 2024 Salty Pena MD Other Provider Active Start: [facility] 2024 Adry Weeks MD Other Provider Active Star t: January 06, 2025 Tony Wayne MD Other Provider Active Start: [facility] 2024 Katie Cantu , Other Provider Active Start: [facility] 2024 Escobar Jones DO Other Provider Active Start : January 06, 2025 Lynnette Garcia APRN Other Provider Active Start: January 06, 2025 Manohar Carter DO Other Provider Active Start: January 06, 2025 Dayan Perrin MD Other Provider Active Sta rt: January 06, 2025 Iza Finley APRN Other Provider Active Start : January 06, 2025 Hanna Correa APRN Other Provider Active St art: January 06, 2025 Wilfred Moreno MD Other Provider Active Start: [facility] 2024 Hudson Turner MD Other Provider Active S tart: January 06, 2025 Francisco Javier Lynne , Other Provider Active Star t: January 06, 2025 Karrie Dean DO Other Provider Active Start: January 06, 2025 Darius Pena MD Other Provider Active Start: January 06, 2025 Blair Ni MD Other Provider Active Start: January 06, 2025 Mesha Vasquez APRN Other Provider Active Star t: January 06, 2025 Xiomy Rocha MD Other Provider Active Start: [facility] 2024 Sam Wolfe MD Other Provider Active Start: [facility] 2024 Emeka Cantor MD Other Provider Active Start: January 06, 2025 Ari Hazel MD Other Provider Active Start : January 06, 2025 Wale Beck MD Other Provider Active Start: [facility] 20[facility] Nicolasa Cramer APRN Other Provider Active Sta rt: January 06, 2025 Nathaniel Garcia APRN Other Provider Active Start: January 06, 2025 Saloni Curiel RN Other Provider Active Start: [facility] 2024 Team Status: Inactive Member Role Status [facility] Primary Care Provider Ac tive Start: February 17, 2025 End: February 17, 2025 Guillermina Shetty APRN Emergency Provider Active Start: February 17, 2025 End: February 17, 2025 Goals (unrecognized section and content) Goals may be documented in a n alternate section FOR RECORDS PERTAINING TO PATIENTS WHO ARE OR HAVE BEEN ENROLLED IN A CHEMICAL DEPENDENCY/SUBSTANCEABUSE PROGRAM, SOME INFORMATION MAY BE OMITTED. This clinical summary was aggregated from multiple sources. Caution should be exercised in using it in the provision of clinical care. This summary normalizes information from multiple sources, and as a consequence, information in this document may materially change the coding, format and clinical context of patient data. In addition, data may be omitted in some cases. CLINICAL DECISIONS SHOULD BE BASED ON THE PRIMARY CLINICAL RECORDS. [facility] [employer] [facility]. provides no warranty or guarantee of the accuracy or completeness of information in this document.
[2025-03-31 03:47] LABS: Glucometer 337 mg/dL (74-106)
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
[2025-03-31 05:14] VITALS: BP 133/81; PULSE 90; O2SAT 98
--- NOTE | 2025-03-31 05:38 | ECG_ITS ---
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 Measurements Intervals Thermal Rate: 91 P: 54 [place]: 146 QRS: 46 QRSD: 104 T: 4 QT: 326 QTc: 374 Interpretive Statements 1100 Sinus rhythm 9110 normal ECG Compared to ECG 02/03/2025 10:56:06 QT interval has increased QRS amplitude has increased Electronically Signed On 03-31-2025 18:22:10 EDT by KHUSHBOO COVARRUBIAS M.D.
[2025-03-31 07:07] LABS: Amphetamine Screen Urine NEGATIVE (NEGATIVE); Barbiturates Screen Urine NEGATIVE (NEGATIVE); Benzodiazepines Screen Urine NEGATIVE (NEGATIVE); Buprenorphine Screen Urine NEGATIVE (NEGATIVE); Cannabinoid Screen Urine NEGATIVE (NEGATIVE); Cocaine Screen Urine NEGATIVE (NEGATIVE); Methadone Screen Urine NEGATIVE (NEGATIVE); Methamphetamines Screen Urine NEGATIVE (NEGATIVE); Opiate Screen Urine NEGATIVE (NEGATIVE); Oxycodone Screen Urine NEGATIVE (NEGATIVE); Phencyclidine Screen Urine NEGATIVE (NEGATIVE); Tricyclic Antidepressant Urine NEGATIVE (NEGATIVE)
[2025-03-31 08:24] LABS: Eosinophils Percent Auto 0.8 % (0.9-7.0); Hematocrit 41.6 % (42.0-54.0); Hemoglobin 14.5 g/dL (14.0-18.0); Immature Granulocytes Abs Auto 0.07 10^3/uL (0.00-0.03); Lymphocytes Absolute Auto 0.8 10^3/uL (1.2-3.8); Mean Corpuscular HGB Conc 34.9 g/dL (29.9-35.2); Mean Corpuscular Hemoglobin 29.6 pg (25.9-34.0); Mean Corpuscular Volume 84.9 fL (80.0-94.0); Mean Platelet Volume 13.1 fL (9.5-13.5); Monocytes Absolute Auto 0.2 10^3/uL (0.3-0.8); Neutrophils Absolute Auto 4.1 10^3/uL (1.4-6.5)
[2025-03-31 08:34] LABS: Platelet Count 166 10^3/uL (150-450); Red Blood Count 5.11 10^6/uL (4.70-6.10); Red Cell Distribution Width 12.5 % (11.0-15.0); White Blood Count 6.2 10^3/uL (4.0-11.0)
[2025-03-31 08:35] LABS: Basophils Percent Auto 0.5 % (0.2-2.0); Lymphocytes Percent Auto 32.9 % (20.5-60.0); Monocytes Percent Auto 5.7 % (1.7-12.0); Neutrophils Percent Auto 59.1 % (43.0-75.0)
[2025-03-31 08:40] LABS: BOX Test Reference Lab FIRELANDS; BOX Test Sent Out FIRELANDS
[2025-03-31 08:52] LABS: Glucometer 369 mg/dL (74-106)
[2025-03-31] MEDS: INSULIN REGULAR, HUMAN (100 UNIT/ML) 10 ML MDV 10 UNIT SUBQ (09:39)
[2025-03-31 09:56] VITALS: BP 116/67; PULSE 101; O2SAT 99
--- NOTE | 2025-03-31 10:13 | PC.NURSE ---
this RN assumed care of pt at this time from Tiffanie STEPHENS. pt on iPad with [facility] in room at this time. security remains outside of room.
--- NOTE | 2025-03-31 11:42 | PC.NURSE ---
pt resting calmly in ED room. security remains outside of room. lunch ordered per pt request. pt denies needs of assistance of current needs at this time.
--- NOTE | 2025-03-31 11:43 | PC.NURSE ---
pt aware of pending transport to [address] pt is voluntary admission.
[2025-03-31 11:49] LABS: Glucometer 432 mg/dL (74-106)
[2025-03-31] MEDS: INSULIN REGULAR, HUMAN (100 UNIT/ML) 10 ML MDV 15 UNIT SUBQ (12:10)
--- NOTE | 2025-03-31 12:28 | PC.NURSE ---
nursing report called to Monserrat STEPHENS at [address] all questions answered. pt is calm and cooperative with staff. pt denies needs prior to transport.
[2025-03-31 12:29] VITALS: PULSE 80; O2SAT 98
== END 2025-03-31 12:31 ==
PROVIDERS: Emergency Provider Internal Medicine
DX: F32.9 Major depressive disorder, single episode, unspecified (principal); E11.65 Type 2 diabetes mellitus with hyperglycemia; T38.3X6A Underdosing of insulin and oral hypoglycemic [antidiabetic] drugs, initial encounter
CPT/HCPCS: 36415; 80053; 80179; 80307; 80320; 80329; 82948; 85025; 93005; 99285; J1817

== ENCOUNTER 2025-07-15 12:31 | Emergency (ER) | payer MEDICAID, SELFPAY ==
[2025-07-15 12:35] VITALS: BP 135/110; PULSE 96; TEMP 36.9; O2SAT 96; BMI 37.0
--- OUTSIDE RECORDS SUMMARY | 2025-07-15 12:37 | XMS_ITS | CCD ---
Author Organization [facility] Care Team Providers Care Frame Hand Name Role Phone Fito Villalobos Primary Care Provider Fito Villalobos Primary Care Provider FITO VILLALOBOS Referring Unavailable GRISELDA FITO Primary Care Unavailable GRISELDA FITO Referring Unavailable GRISELDA FITO Primary Care Unavailable GRISELDA FITO Primary Care Unavailable THUMMALAPALLY, RUSHEETH Admitting Unavaila ble THUMMALAPALLY, RUSHEETH Attending Unavaila gail Villalobos Fito Primary Care Provider GRISELDA FITO Primary Care Unavailable DEGROOT, MARIXA Consulting Unavailable DEGROOT, MARIXA Admitting Unavailable JEAN PIERRE BARTON Attending Unavailable [facility] Primary Care Unavailable JAMES, YOLANDA Consulting Unavailable THUMMALAPALLY, RUSHEETH Attending Unavaila ble THUMMALAPALLY, RUSHEETH Admitting Unavaila ble CASEY, WANDA S Consulting Unavailable CHELSEA Olivas Attending Provider Unavail able Lynn Olivas Unavailable NON STAFF Attending Provider Unavailable MD John Kraft Attending Provider REQUEST, DR JUNE LISTED Primary Care Unavaila ble RADHA ., DR DEE Admitting Unavailable RADHA ., DR DEE Attending Unavailable RADHA Davey, DR DEE Consulting Unavailable WALLACE, DR CÉSAR Metzger Consulting Unavailable CAYETANO SMITH Consulting Unavailable SHAIKH Joyce KRAFT Consulting Unavailable SISTER, ADRI Consulting Unavailable DIAB ., TELMA Consulting Unavailable RASTEGAR, BRIGITTE Consulting Unavailable WAN ANGEL Attending Unavailable FANNY SOTO Referring Unavailable JOSELINE MOJICA Attending Unavailable FANNY SOTO Referring Unavailable Demetria Cifuentes Unavailable HAILEE Cifuentes Primary Care Provider DO [...] Other Provider Unavailable HAILEE Valdes Other Provider [phone] MD Aryan Santos Other Provider [phone] MD Victor Hugo Menjivar Other Provider MD Helen Hernandez Other Provider MD Leti Tucker Other Provider DO Mauricio White Other Provider MD Nubia Dhaliwal Other Provider MD Panchito Ferro Other Provider CHELSEA Montanez Other Provider [phone] HAILEE Danielle Other Provider Unavailable MD Ramesh Garcia Other Provider MD Oz Carrillo Other Provider MD Salty Pena Other Provider MD Adry Weeks Other Provider Unavailable MD Tony Wayne Other Provider DO Katie Cantu Other Provider DO Escobar Jones Other Provider HAILEE Garcia Other Provider DO Manohar Carter Other Provider MD Dayan Perrin Other Provider HAILEE [place] Other Provider [phone] HAILEE Correa Other Provider MD Wilfred Moreno Other Provider MD Hudson Turner Other Provider [phone] DO Francisco Javier Lynne T Other Provider DO Karrie Dean Other Provider MD Jean Darius P Other Provider MD Blair Ni Other Provider [phone] HAILEE Vasquez Other Provider MD Xiomy Rocha Other Provider MD Sam Wolfe Other Provider Veena, ANGELO Guallpa Other Provider Unavailable NO FAMILY, PHYSICIAN Primary Care Provider Unava ilable Guillermina Shetty APRN Emergency Provider Blue Talbot MD Admit Provider Antione GALINDO, Blue Attending Provider Demetria Cifuentes APRN Primary Care Provider Antione GALINDO, Blue Attending Provider [phone] Natasha STEPHENS, Yane Other Provider Unavailable Birgit RN, Tiffanie Other Provider Unavailable Haylee RN, Ria Other Provider Unavailable Tho RN, Latasha Other Provider Unavailable Rob RN, Alicia Other Provider Unavailable Juan M Beltran MD Other Provider Amber Dillon DO Other Provider Delano Vicente MD Other Provider Von Roberts DO Other Provider Xuan GALINDO, Flex Other Provider Khoa GALINDO, Sunshine Other Provider Mauricio Alcazar DO Other Provider Neymar GALINDO, Ari Other Provider Unavailable Rola Valdes APRN Other Provider Danielle GALINDO, Aryan Other Provider Victor Hugo Menjivar MD Other Provider Helen Hernandez MD Other Provider Unavailable Leti Tucker MD Other Provider Mauricio White DO Other Provider Nubia Dhaliwal MD Other Provider Panchito Ferro MD Other Provider Tarik PATTERN WHEEL MAKER-C, Gabriela Cardona Other Provider Veronica Danielle APRN Other Provider Unavailable Ramesh Garcia MD Other Provider Oz Carrillo MD Other Provider Salty Pena MD Other Provider Desi GALINDO, Adry Other Provider Unavailable Tony Wayne MD Other Provider Katie Cantu DO Other Provider Escobar Jones DO Other Provider Lynnette Garcia APRN Other Provider Manohar Carter DO Other Provider Marychuy GALINDO, Dayan Reina Other Provider Iza [place] APRN Other Provider Hanna Correa APRN Other Provider Josh GALINDO, Wilfred Other Provider Unavailable Hudson Turner MD Other Provider Lynne DO, Francisco Javier T Other Provider Jermaine DO, Karrie Other Provider Jean GALINDO, Darius Berrios Other Provider Last GALINDO, Blair Townsend Other Provider Mesha Vasquez APRN Other Provider Unavailable Aj GALINDO, Xiomy Other Provider Yaneth GALINDO, Sam Other Provider Emeka Cantor MD Other Provider Ari Hazel MD Other Provider [phone] Kiran GALINDO, Wale Other Provider Nicolasa Cramer APRN Other Provider Nathaniel Garcia APRN Other Provider Saloni Curiel RN Other Provider Unavailable Ceferino Edwards MD Attending Provider [phone] [facility] ider Kris Gross MD Attending Provider Demetria Cifuentes APRN Primary Care Provider Blue Talbot MD Attending Provider [phone] Fish STEPHENS, Annamarie Other Provider Unavailable Olegario COSTA Attending Unavailable SELF, SELF Referring Unavailable SELF, SELF Primary Care Unavailable Joel PATEL Attending Unavailable NO PCP, NO PCP Primary Care Unavailable FANNY CUNNINGHAM Attending Unavailable Ceferino Edwards Attending Unavailable Yane Kaur Consulting Unavailable Blue Talbot Admitting Unavailab le NO FAMILY, PHYSICIAN Primary Care Unavailable Tiffanie Genao Consulting Unavailable Ria Leach Consulting Unavailable Latasha Nettles Consulting Unavailable Alicia Rivas Consulting Unavailable Juan M Beltran Consulting Unavailable Amber Dillon Consulting Unavailable Delano Vicente Consulting Unavailable Von Roberts Consulting UnavailFlex Rodney Consulting Unavailable Sunshine Couch Consulting Unavailable Mauricio Alcazar Consulting Unavailable Ari Blackmon Consulting Unavailable Rola Valdes Consulting UnavailAryan Bella Consulting Unavailable Victor Hugo Menjivar Consulting Unavailable Helen Hernandez Consulting Unavailable Leti Tucker Consulting Unavailable Mauricio White Consulting Unavailable Nubia Dhaliwal Consulting Unavailable Panchito Ferro Consulting Unavailable Gabriela Montanez Consulting Unavailable Veronica Danielle Consulting Unavailable DoRamesh velasquez Consulting Unavailab Oz Galvan Consulting Unavailable Salty [...] Consulting Unavailable Wale Beck Consulting Unavailable Nicolasa Crmaer Consulting Unavailable Nathaniel Garcia Consulting Unavaila Saloni Coleman Consulting Unavailable Ceferino Edwards Attending Unavailable Blue Talbot Admitting Unavailab le NO FAMILY, PHYSICIAN Primary Care Unavailable Yane Kaur Consulting Unavailable Tiffanie Genao Consulting Unavailable Ria Leach Consulting Unavailable Latasha Nettles Consulting Unavailable Alicia Rivas Consulting Unavailable Annamarie Whitten Consulting Unavailable Juan M Beltran Consulting Unavailable Amber Dillon Consulting Unavailable Delano Vicente Consulting Unavailable Von Roberts Consulting UnavailFlex Rodney Consulting Unavailable Sunshine Couch Consulting Unavailable Mauricio Alcazar Consulting Unavailable Ari Blackmon Unavailable Rola Valdes Consulting UnavailAryan Bella Consulting Unavailable Victor Hugo Menjivar Consulting Unavailable Helen Hernandez Consulting Unavailable Leti Tucker Consulting Unavailable Mauricio White Consulting Unavailable Nubia Dhaliwal Consulting Unavailable Panchito Ferro Consulting Unavailable Gabriela Montanez Consulting Unavailable Veronica Danielle Consulting Unavailable Ramesh Garcia Consulting Unavailab Oz Galvan Consulting Unavailable Salty Pena Consulting Unavailable Adry Weeks Consulting Unavailable Tnoy Wayne Consulting Unavailable Katie Cantu Unavailable Escobar [...] Beck Consulting Unavailable Nicolasa Cramer Consulting Unavailable Bolvinod-Cleo Nicolettcarmela Consulting Unavaila Saloni Coleman Consulting Unavailable Guillermina Shetty Admitting Unavailable Guillermina Shetty Attending Unavailable [facility] U Kris Hercules Admitting Unavailable Kris Gross Attending Unavailable Demetria Cifuentes Primary Care Unavailable Blue Talbot Attending Unavailab Blue Hernandez Admitting Unavailab Demetria Oshea Primary Care Unavailable Blue Talbot Admitting Unavailab Blue Hernandez Attending Unavailab Yane Leung Consulting Unavailable Tiffanie Genao Consulting Unavailable Ria Leach Consulting Unavailable Latasha Nettles Consulting Unavailable Alicia Rivas Consulting Unavailable Amber Dillon Consulting Unavailable Delano Vicente Consulting Unavailable Von Roberts Consulting UnavailFlex Rodney Consulting Unavailable Sunshine Couch Consulting Unavailable Ari Blackmon Consulting Unavailable Rola Valdes Consulting UnavailAryan Bella Consulting Unavailable Victor Hugo Menjivar Consulting Unavailable Helen Hernandez Consulting Unavailable Leti Tucker Consulting Unavailable Mauricio White Consulting Unavailable Nubia Dhaliwal Consulting Unavailable Panchito Ferro Consulting Unavailable Gabriela Montanez Consulting Unavailable Veronica Danielle Consulting Unavailable Ramesh Garcia Consulting Unavailab Oz Galvan Consulting Unavailable Salty Pena Consulting Unavailable Adry Weeks Consulting Unavailable Tony Wayne Consulting Unavailable Katie Cantu Consulting Unavailable Escobar Jones Consulting Unavailable ObLynnette mujica Consulting Unavailable Manohar Carter Consulting Unavailable DaromaDayan barber Consulting Unavailable Iza Finley Consulting Unavailable Hanna Correa Consulting Unavailable Wilfred Moreno Consulting Unavailable Hudson Turner Consulting Unavailable Francisco Javier Lynne Consulting Unavailable Karrie Dean Consulting Unavailable Darius Pena Consulting Unavailable Blair Ni Consulting Unava Mesha Yuan Consulting Unavailable Xiomy Rocha Consulting Unavailable Sam Wolfe Consulting Unavailable Saloni Curiel Consulting Unavailable Allergies Allergy Classification Reported Allergen(s) Allergy Type Date of Onset Reaction(s) Facility (1 source) Adhesive Tape Propensity to adverse reactions to drug 0 [place] (1 source) No Known Medication Allergies; 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: [No Known Medication Allergies] Propensity to adverse reactions (disorder) [facility] Repository (1 source) ADHESIVE TAPE-SILICONES; 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: [ADHESIVE TAPE-SILICONES] Propensity to adverse reactions to drug (disorder) 0 [facility] Repository Medications Current Medications Medication Drug Class(es) Dates Sig (Normalized) Sig (Original) Acetaminophen (1 source) Start: 07-30-2020 acetaminophen (TYLENOL) tablet 650 mg atorvastatin 40 mg oral tablet (3 sources) [...] hr Discontinued 150 MG PO Every morning December 22, 2023 4:12pm February 15, 2024 11:03am busPIRone hydrochloride 5 mg oral tablet (20 sources) Start: 03-31-2025 End: 04-05-2025 take 1 tablet by mouth twice daily Buspirone 5 mg tablet Active 5 MG PO Twice daily 60 30 April 05, 2025 1:26pm Start: 02-15-2024 End: 07-27-2024 take 1 tablet by mouth three times daily Buspirone 15 mg tablet Discontinued 15 MG PO Three times daily February 15, 2024 12:00am July 27, 2024 4:06pm Start: 12-04-2023 End: 02-15-2024 take 1 tablet by mouth twice daily Buspirone 5 mg tablet Discontinued 5 MG PO Twice daily December 08, 2023 1:00am February 15, 2024 11:03am ciprofloxacin 500 mg oral tablet (1 source) Quinolone Antimicrobial Start: 04-25-2024 End: 04-30-2024 take 1 tablet by mouth twice daily at mealtime Cipro 500 mg Tab 500 mg = 1 tab(s), Oral, BID, start with first meal after procedure, X 5 day(s), # 10 tab(s), Refills(s) 0, Pharmacy: [facility]/pharmacy #[id number], 174, , 04/25/24 11:22:00 EDT, Height/Length Dosing, 113.5, kg, 04/25/24 11:22:00 EDT, Weight Dosing Start Date: 04/25/24 Stop Date: 04/30/24 Status: Ordered diazePAM 10 mg oral tablet (2 sources) Benzodiazepine Start: 04-25-2024 take 1 tablet by mouth once daily Valium 10 mg Tab 10 mg = 1 tab(s), Oral, Daily, take 30 minutes prior to procedure, # 1 tab(s), Refills(s) 0, Pharmacy: [facility]/pharmacy #[id number], 174, , 04/25/24 11:22:00 EDT, Height/Length Dosing, 113.5, kg, 04/25/24 11:22:00 EDT, Weight Dosing Start Date: 04/25/24 Status: Ordered 0.3 ml enoxaparin sodium 100 mg/ml prefilled syringe (1 source) Low Molecular Weight Heparin Start: 07-31-2020 enoxaparin (LOVENOX) injection 30 mg escitalopram 20 mg oral tablet (15 sources) Serotonin Reuptake Inhibitor Start: 04-05-2025 take 1 tablet by mouth once daily in the morning Escitalopram Oxalate 20 mg Tablet Active 20 MG PO Every morning April 05, 2025 12:00am Start: 03-31-2025 End: 04-05-2025 take 2 tablets by mouth once daily in the morning Escitalopram Oxalate 10 mg Tablet Discontinued 20 MG PO Every morning March 31, 2025 12:00am April 05, 2025 1:57pm Start: 01-09-2025 End: 03-31-2025 Escitalopram Oxalate 10 mg T ablet Discontinued 15 MG PO Every morning January 09, 2025 12:00am March 31, 2025 1:18pm Start: 01-05-2025 End: 01-09-2025 take 1 tablet by mouth once daily in the morning Escitalopram Oxalate 10 mg Tablet Discontinued 10 MG PO Every morning January 05, 2025 12:00am January 09, 2025 1:04pm Start: 08-04-2024 End: 01-05-2025 Escitalopram Oxalate 10 mg T ablet Discontinued 15 MG PO Every morning 45 August 04, 2024 12:00am January 05, 2025 6:20pm Start: 08-04-2024 take 15 mg by mouth once daily in the morning Escitalopram Oxalate Active 15 MG PO Every morning 45 August 04, 2024 12:00am famotidine 20 mg oral tablet (3 sources) Histamine-2 Receptor Antagonist Start: 07-30-2020 take 1 tablet by mouth twice daily famotidine (PEPCID) 20 MG tablet Take 1 tablet by mouth 2 times daily 60 tablet 3 08/01/2020 Active fenofibrate 48 mg oral tablet (20 sources) Peroxisome Proliferator Receptor alpha Agonist Start: 04-01-2025 Fenofibrate Nanocrystallized 48 mg Tablet Active 192 MG PO Daily April 01, 2025 12:00am Start: 08-01-2024 End: 08-09-2024 take 1 tablet [...] mg tablet Discontinued 145 MG PO Daily 90 90 December 08, 2023 3:54pm February 15, 2024 11:05am take 1 tablet by usha th every twenty-four hours Fenofibrate 160 MG 1 tablet Orally Once a day for 30 days Active glucagon (rdna) 1 mg injection (1 [...] TOLERATING PO, give 1 tube glucose gel. Repeat blood glucose in 15 minutes. If [...] 2020 03/16/2020 Active take 1 capsule by [facility] four times daily as needed hydrOXYzine (VISTARIL) 50 MG capsule Take 50 mg by mouth 4 times daily as needed for Itching 0 Active End: 08-01-2020 HYDROXYZINE HCL PO Take by m outh 0 08/01/2020 Discontinued (Stop Taking at Discharge) 3 ml insulin glargine 100 unt/ml pen injector (11 sources) Insulin Analog Start: 04-05-2025 Insulin Glargi ne (Lantus Solostar U-100 Insulin) 100 unit/mL (3 mL) Insulin Pen Active 20 UNIT SUBCUT Daily 6 30 April 05, 2025 12:00am Start: 01-05-2025 Insulin Glargi ne (Lantus Solostar [...] 6:39pm 3 ml insulin lispro 100 unt/ml cartridge (7 sources) Insulin Analog Start: 03-31-2025 Insulin Lispro (Humalog U-100 Insulin) 100 unit/mL cartridge Active 0 sliding scale dose SUBCUT As Directed March 31, 2025 12:00am Please contact the information source for Protocol details. Start: 04-25-2024 Insulin Lispro KwikPen 100 units/mL injectable solution Refills(s) 0 Start Date: 04/25/24 Status: Ordered Start: 07-31-2020 0-12 Units, Taylor bcutaneous, 3 TIMES DAILY WITH MEALS, First dose on Thu07/31/20 at 0800 Medium Dose Corrective Algorithm Glucose: Dose: If <139 & nbsp; No Insulin 140-199 2 Units 200-249 4 Units 250-299 6 Units 300-349 8 Units 350-400 10 Units Above 400 12 Units Start: 07-30-2020 0-6 Units, Sub cutaneous, NIGHTLY, First dose on Thu07/30/20 at 2200 If continuous tube feedings/TPN/NPO, give correction dose based on result, no reduction in dose. If eating or bolus tube feeding: Medium Dose Corrective Algorithm Glucose: Dose: If <139 & nbsp; No Insulin 140-199 &nb sp; 1 Unit 200-249 2 Units 250-299 &nbsp ; 3 Units 300-349 &nbsp ; 4 Units 350-400 &nbsp ; 5 Units Above 400 6 Units HumaLOG KwikPen 100 UNIT/ML as directed Subcutaneous sliding scale and corrective. for 30 days Active Insulin Lispro (Humalog Kwik pen Insulin) 100 unit/mL insulin pen (18 sources) Start: 06-29-2024 Insulin Lispro (Humalog Kwikpen Insulin) 100 unit/mL insulin pen Active 12 UNIT SUBCUT THREE TIMES DAILY WITH MEALS June 29, 2024 11:22am Start: 06-29-2024 Insulin Lispro (Humalog Kwikpen Insulin) [...] 2023 12:00am lamoTRIgine 25 mg oral tablet (16 sources) Mood Stabilizer, Anti-epileptic Agent Start: 08-04-2024 End: 04-05-2025 take 1 tablet by mouth twice daily Lamotrigine 25 mg Tablet Active 25 MG PO Twice daily 60 April 05, 2025 1:26pm Start: 02-14-2020 LaMICtal 25 MG Oral Tablet 02/14/2020 Provider: Fito Villalobos CNP lisinopril 2.5 mg oral tablet (1 source) Angiotensin Converting Enzyme Inhibitor Start: 04-05-2025 take 1 tablet by mouth once daily Lisinopril 2.5 mg Tablet Active 2.5 MG PO Daily 30 April 05, 2025 12:00am meloxicam 7.5 mg oral tablet (3 sources) Nonsteroidal Anti-inflammatory Drug Start: 02-14-2020 Mobic 7.5 MG Oral Tablet 02/14/2020 Provider: Ftio Villalobos CNP nicotine 2 mg chewing gum (2 sources) Cholinergic Nicotinic Agonist Start: 04-05-2025 Nicotine (Polacrilex) 2 mg Gum Active 4 MG BUCCAL Q2H as needed for Nicotine Cravings 40 April 05, 2025 12:00am Start: 07-31-2020 nicotine polac rilex (NICORETTE) gum 2 mg polyethylene glycol [id number] mg powder for oral solution (1 source) Osmotic Laxative Start: 07-30-2020 17 g, Oral, DAILY PRN, Constipation, Starting Thu07/30/20 at 2152 First line therapy for constipation prazosin 2 mg oral capsule (20 sources) alpha-Adrenergi c Ankush Start: 03-31-2025 End: 04-05-2025 take 1 capsule by mouth at bedtime Prazosin 2 mg capsule Active 2 MG PO Bedtime 30 April 05, 2025 1:26pm Start: 01-05-2025 End: 01-05-2025 take 1 capsule [...] 03, 2024 1:11pm July 27, 2024 4:07pm Promethazine (1 source) Phenothiazine Start: 07-30-2020 promethazine [...] 2200 traZODone hydrochloride 150 mg oral tablet (11 sources) Serotonin Reuptake Inhibitor Start: 01-05-2025 End: 04-05-2025 take 1 tablet by mouth at bedtime Trazodone 150 mg tablet Active 150 MG PO Bedtime April 05, 2025 1:26pm Start: 2020 take 1 tablet by usha th once daily as needed for sleep traZODone (DESYREL) 50 MG tablet Take 1 tablet by mouth nightly as needed for Sleep 30 tablet 0 2020 Active Completed/Discontinued Medications Medication Drug Class(es) Dates Sig (Normalized) Sig (Original) [id number] 200 actuat albuterol 0.09 mg/actuat metered dose inhaler (10 sources) beta2-Adrenergic Agonist Start: 12-11-2023 End: 07-27-2024 take 1 puff(s) by inhalation four times daily as needed for wheezing Albuterol Sulfate 90 mcg/actuation HFA aerosol inhaler Discontinued 2 PUFF INHALATION Four times daily as needed for shortness of breath or wheezing 8.5 December 11, 2023 1:00am July 27, 2024 4:05pm ARIPiprazole 400 mg extended release prefilled syringe (13 sources) Atypical Antipsychotic Start: 01-09-2025 End: 03-31-2025 take 1 tablet by mouth once daily Aripiprazole 5 mg Tablet Discontinued 5 MG PO Daily January 09, 2025 12:00am March 31, 2025 1:17pm Start: 01-09-2025 End: 04-05-2025 Aripiprazole (Abilify Mainte na) 400 mg Suspension,Extended Rel Syring Discontinued 400 MG IM Q28D January 09, 2025 12:00am April 05, 2025 1:57pm Start: 2020 End: 07-31-2020 take 1 tablet [...] 0 08/01/2020 Discontinued (Stop Taking at Discharge) atomoxetine 40 mg oral capsule (17 sources) Norepinephrine Reuptake Inhibitor Start: 07-27-2024 End: 01-05-2025 take 1 capsule by mouth once daily Atomoxetine 40 mg capsule Discontinued 40 MG PO Daily July 27, 2024 4:12pm January 05, 2025 6:21pm Start: 06-29-2024 End: 07-27-2024 take 1 capsule by mouth once daily Atomoxetine (Strattera) 25 mg capsule Discontinued 25 MG PO Daily June 29, 2024 12:00am July 27, 2024 4:13pm Start: 04-25-2024 atomoxetine 40 mg Cap Refills(s) 0 Start Date: 04/25/24 Status: Ordered azithromycin 250 mg oral tablet (12 sources) Macrolide Antimicrobial Start: 12-11-2023 End: 02-15-2024 take 2 tablets by mouth once daily, then take 1 tablet by mouth once daily Azithromycin (Zithromax Z-Maximino) 250 mg tablet Discontinued 250 MG PO Daily 6 December 11, 2023 1:00am February 15, 2024 10:58am take 2 tabs today and 1 daily for the next 4 days Start: 09-30-2022 take 2 tablets by [facility] once at mealtime Azithromycin 600 MG 2 tablets Orally once for 1 days Take 2 tablets p.o. with food on Sep, Not-Taking/PRN benzonatate 200 mg oral capsule (10 sources) Non-narcotic Antitussive Start: 12-11-2023 End: 02-15-2024 Benzonatate 200 mg capsule Discontinued 200 MG PO 2-3 TIMES PER DAY as needed for cough December 11, 2023 1:00am February 15, 2024 10:58am Blood-Glucose Meter kit (4 sources) Start: 06-29-2024 End: 04-05-2025 Blood-Glucose Meter kit Discontinued 0 .Route June 29, 2024 12:00am April 05, 2025 1:57pm to test blood sugar daily Start: 06-29-2024 Blood-Glucose Meter kit Active 0 .Route June 29, 2024 12:00am to test blood sugar daily cefTRIAXone (3 sources) Cephalosporin Antibacterial Start: 09-29-2022 Rocephin 500 mg Sep, 500 mg cephalexin 500 mg oral capsule (9 sources) Cephalosporin Antibacterial Start: 03-03-2024 End: 06-29-2024 take 1 capsule by mouth twice daily Cephalexin 500 mg capsule Discontinued 500 MG PO Twice daily 14 March 03, 2024 12:00am June 29, 2024 10:40am cinnamon bark 500 mg oral capsule (10 sources) Start: 02-15-2024 [...] at Discharge) etodolac 400 mg oral tablet (9 sources) Nonsteroidal Anti-inflammatory Drug Start: 03-03-2024 End: 07-27-2024 take 1 tablet by mouth twice daily Etodolac 400 mg tablet Discontinued 400 MG PO Twice daily 60 March 03, 2024 12:00am July 27, 2024 4:07pm Fenofibrate Nanocrystallized (8 sources) Start: 03-09-2024 End: 07-27-2024 take 1 tablet by mouth once daily Fenofibrate Nanocrystallized Discontinued 0 .ROUTE .COMPLEX March 09, 2024 1:54pm July 27, 2024 4:06pm TAKE 1 TABLET BY MOUTH EVERY DAY Start: 03-09-2024 take 1 tablet by usha once daily Fenofibrate Nanocrystallized Active 0 .ROUTE .COMPLEX March 09, 2024 1:54pm TAKE 1 TABLET BY MOUTH EVERY DAY Start: 03-09-2024 End: 03-09-2024 take 145 mg by mouth once daily Fenofibrate Nanocrystallized Discontinued 145 MG PO Daily March 09, 2024 12:00am March 09, 2024 1:54pm Fenofibrate Nanocrystallized 145 mg tablet (12 sources) Start: 08-09-2024 End: 01-05-2025 take 1 [...] 2024 1:54pm gabapentin 300 mg oral capsule (12 sources) Anti-epileptic Agent Start: 02-15-2024 End: 07-27-2024 take 1 capsule by mouth three times daily Gabapentin 300 mg capsule Discontinued 300 MG PO Three times daily February 15, 2024 12:00am July 27, 2024 4:06pm insulin detemir 100 unt/ml injectable solution (20 sources) Insulin Analog Start: 12-08-2023 End: 06-29-2024 inject 36 [IU] by subcutaneous injection once daily at bedtime Insulin Detemir U-100 (Levemir U-100 Insulin) 100 unit/mL solution Discontinued 36 UNIT SUBCUT Daily at bedtime 10.8 30 June 29, 2024 10:55am June 29, 2024 2:23pm Levemir FlexPen 100 UNIT/ML 36 units Subcutaneous nightly for 90 days Active melatonin 10 mg oral capsule (12 sources) Start: 02-15-2024 End: 07-27-2024 take 1 capsule by mouth once daily at bedtime as needed Melatonin 10 mg capsule Discontinued 10 MG PO Daily at bedtime as needed February 15, 2024 12:00am July 27, 2024 4:07pm metFORMIN hydrochloride 1000 mg oral tablet (7 sources) Biguanide Start: 01-05-2025 End: 03-31-2025 take 1 tablet by mouth twice daily Metformin 1,000 mg tablet Discontinued 1000 MG PO Twice daily January 05, 2025 12:00am March 31, 2025 1:22pm Start: 08-05-2020 take 1 tablet by usha twice daily at mealtime metFORMIN (GLUCOPHAGE) 1000 MG tablet Take 1 tablet by mouth 2 times daily (with meals) 60 tablet 0 08/05/2020 Active End: 08-05-2020 take 500 mg by mouth twice daily at mealtime METFORMIN HCL PO Take 500 mg by mouth 2 times daily (with meals) 0 08/05/2020 Discontinued (Stop Taking at Discharge) methylPREDNISolone 4 mg oral tablet (10 sources) Corticosteroid Start: 12-11-2023 End: 02-15-2024 take [...] Start: 10-01-2022 take 4 tablets by mo [facility] once at mealtime metroNIDAZOLE 500 MG 4 tablets Orally once for 1 days Take all 4 tablets by mouth with food on Sep, Active naproxen 500 mg oral tablet (5 sources) Nonsteroidal Anti-inflammatory Drug Start: 08-04-2024 End: 01-05-2025 take 1 tablet by mouth twice daily at mealtime Naproxen 500 mg Tablet Discontinued 500 MG PO Twice daily with meals 60 30 August 04, 2024 12:00am January 05, 2025 6:21pm tiZANidine 4 mg oral tablet (20 sources) Central alpha-2 Adrenergic Agonist Start: 08-04-2024 End: 01-05-2025 take 6 mg by mouth twice daily as needed Tizanidine 4 mg Tablet Discontinued 6 MG PO Twice daily as needed for muscle spasticity 30 August 04, 2024 12:00am January 05, 2025 6:21pm Start: 08-04-2024 take 6 mg by mouth twice daily Tizanidine Active 6 MG PO Twice daily 30 August 04, 2024 12:00am Start: 08-01-2024 End: [...] bedtime as needed for muscle spasticity 90 July 29, 2024 12:19pm August 01, [...] Problem Date Documented Date Episodic/Chronic Adjustment disorders (13 sources) Adjustment disorder with anxious mood; 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: [Adjustment disorder with anxiety] 02-16-2024 Chronic Alcohol-related disorders (3 sources) Alcohol abuse, in remission; 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: [Alcohol dependence, in remission] Onset: 01-28-2023 Chronic Anxiety disorders (4 sources) Posttraumatic stress disorder; 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: [Anxiety] Onset: 02-14-2020 Chronic Attention-deficit conduct and disruptive behavior disorders (12 sources) Attention deficit hyperactivity disorder; 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: [Attention-deficit hyperactivity disorder, unspecified type] Onset: 07-31-2020 07-31-2020 Chronic Attention-deficit, conduct, and disruptive behavior disorders (6 sources) Attention-deficit hyperactivity disorder, unspecified type; 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: [Attention deficit disorder with hyperactivity] 06-29-2024 Chronic Cardiac dysrhythmias (1 source) Tachycardia, unspecified; 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: [TACHYCARDIA UNSPECIFIED] Onset: 01-28-2023 Episodic Chronic obstructive pulmonary disease and bronchiectasis (12 sources) Bronchitis; 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: [Bronchitis, not specified as acute or chronic] 12-11-2023 Episodic Contraceptive and procreative management (1 source) Contraception status; 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: [Encounter for other general counseling and advice on contraception] Onset: 04-25-2024 Episodic Deficiency and other anemia (1 source) Iron deficiency anemia, unspecified; 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: [IRON DEFICIENCY ANEMIA UNSPECIFIED] Onset: 01-28-2023 Episodic Diabetes mellitus with complications (7 sources) Type 2 diabetes mellitus with hyperglycemia; [...] micturition] Onset: 04-25-2024 Episodic Headache; including migraine (4 sources) Migraine; 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: [Other migraine, not intractable, without status migrainosus] Onset: 02-17-2025 02-17-2025 Chronic Mood disorders (20 sources) Bipolar disorder; 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: [Unspecified mood [affective] disorder] Onset: 02-14-2020 02-27-2020 Chronic Mood disorders (1 source) Mood disorders; 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: [Depression, unspecified] Onset: 01-05-2025 Nonspecific chest pain (3 sources) Chest pain, unspecified; 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: [Chest pain] Onset: 05-09-2025 Episodic Osteoarthritis (2 sources) Arthritis 04-25-2024 Chronic Other aftercare (1 source) Long-term current use of insulin; 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: [MCC (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] Episodic Other nervous system disorders (1 source) Chronic pain; 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: [Other chronic pain] Chronic Other nervous system disorders (2 sources) Other chronic pain; 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: [Other chronic pain] Onset: 08-01-2024 Chronic Other nervous system disorders (9 sources) Neuropathy; 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: [Polyneuropathy, unspecified] 02-16-2024 Chronic [...] knee; 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: [Chronic pain of left knee] Episodic Other non-traumatic joint disorders (2 sources) [...] risk heterosexual behavior Episodic Residual codes; unclassified (17 sources) Noncompliance with treatment; 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: [Noncompliance] 07-03-2024 Episodic Skin and subcutaneous tissue infections (10 sources) Cellulitis of neck; 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: [Cellulitis of [...] to unspecified reason] Onset: 01-05-2025 Viral infection (15 sources) Genital herpes simplex; 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: [Herpesviral infection of urogenital system, unspecified] Chronic Past or Other Problems Problem Classification Problem Date Documented Da te Episodic/Chronic Headache; including migraine (1 source) Headache; including migraine Other aftercare (4 sources) director long term care (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; 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: [director long term care (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] Onset: 04-05-2024 Episodic Spondylosis; intervertebral disc disorders; other back problems (19 sources) Chronic back pain ; 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: [Dorsalgia, unspecified] Onset: 08-01-2024 02-16-2024 Episodic Suicide and intentional self-inflicted injury (1 source) Suicidal ideations; 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: [Suicidal ideations] Onset: 03-13-2025 Episodic Unclassified (3 sources) Finding of body mass index; 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: [Body Mass Index] Onset: 02-14-2020 Results Test Name Value Interpretation Reference Range Facility XR CHEST 1 VWon 05-09-2025 XR CHEST 1 VW XR CHEST 1 VW HISTORY: A 25-year-old male with a history of the chest pain. EXAM/TECHNIQUE: CHEST: PA view COMPARISON: Comparison is made with prior chest examination of 07/03/2020. FINDINGS: Both lungs and costophrenic angles are clear. There is no evidence of pulmonary infiltrate or acute pulmonary pathology. The cardiac silhouette is within normal limits. The trachea is in midline. The mediastinum is otherwise unremarkable. The hemidiaphragms are normal in position. The bony rib cage is intact. IMPRESSION: * No evidence of pulmonary infiltrate, acute pulmonary pathology or significant interval change. Finalized by Manas Nunn MD on 05/09/2025 9:29 AM Normal [facility] Glucose Glucometer (dC) [M ass/Vol]Ordered By: Blue Talbot on 04-05-2025 Glucose [Mass/Vol] Capillary blood glucose measurement by glucometer (mass/volume) [facility] Comment on above: Random Glucose Refer ence Range is dependent on time and content of last meal. Glucose of more than 200 mg/dL in a nonstressed, ambulatory subject supports the diagnosis of Diabetes Mellitus. Glucose Poct Glucometerson 0 04-05-2025 Glucose [Mass/Vol] 196 mg/dL Normal [facility] Comment on above: Result Comment: [place] Glucose Reference Range is dependent on time and content of last meal. Glucose of more than 200 mg/dL in a nonstressed, ambulatory subject supports the diagnosis of Diabetes Mellitus. PERFORMED BY: [facility] [address] [place] [address] PATHOLOGIST COTTON FARMER BRAEDEN COLE M.D. Performed By: #### G LULS #### Point of Care testing , Commemt1 Glu2: Cleaned Meter Normal [facility] Comment on above: Result Comment: PERF ORMED BY: [facility] [address] [place] [address] PATHOLOGIST COTTON FARMER BRAEDEN COLE M.D. Performed By: #### G LULS #### Point of Care testing , Glucose [Mass/Vol] 246 mg/dL Normal [facility] Comment on above: Result Comment: [facility] Glucose Reference Range is dependent on time and content of last meal. Glucose of more than 200 mg/dL in a nonstressed, ambulatory subject supports the diagnosis of Diabetes Mellitus. Performed By: #### G LULS #### Point of Care testing , No Panel InformationOrdered By: Blue Talbot on 04-05-2025 Bedside Glucose Comment Glu2: cleaned meter [facility] Glucose Poct Glucometerson 0 04-04-2025 Glucose [Mass/Vol] 239 mg/dL Normal [facility] Comment on above: Result Comment: [facility] Glucose Reference Range is dependent on time and content of last meal. Glucose of more than 200 mg/dL in a nonstressed, ambulatory subject supports the diagnosis of Diabetes Mellitus. PERFORMED BY: [place] [phone] PATHOLOGIST COTTON FARMER BRAEDEN COLE M.D. Performed By: #### G LULS #### Point of Care testing , Glucose [Mass/Vol] 212 mg/dL Normal [facility] Comment on above: Result Comment: [facility] Glucose Reference Range is dependent on time and content of last meal. Glucose of more than 200 mg/dL in a nonstressed, ambulatory subject supports the diagnosis of Diabetes Mellitus. PERFORMED BY: [place] [address] PATHOLOGIST COTTON FARMER BRAEDEN COLE M.D. Performed By: #### U RDS, ADDONUAPLUS #### [address] Commemt1 Glu2: Cleaned Meter Normal [facility] Comment on above: Result Comment: PERF ORMED BY: [place] [address] PATHOLOGIST COTTON FARMER BRAEDEN COLE M.D. Performed By: #### G LULS #### Point of Care testing , Glucose [Mass/Vol] 234 mg/dL Normal [facility] Comment on above: Result Comment: [place] Glucose Reference Range is dependent on time and content of last meal. Glucose of more than 200 mg/dL in a nonstressed, ambulatory subject supports the diagnosis of Diabetes Mellitus. Performed By: #### G LULS #### Point of Care testing , Commemt1 Glu2: Cleaned Meter Normal [facility] Comment on above: Result Comment: PERF ORMED BY: [place] [address] PATHOLOGIST COTTON FARMER BRAEDEN COLE M.D. Performed By: #### U RDS, ADDONUAPLUS #### [facility] [address] [place] [address] Glucose [Mass/Vol] 255 mg/dL Normal [facility] Comment on above: Result Comment: [place] Glucose Reference Range is dependent on time and content of last meal. Glucose of more than 200 mg/dL in a nonstressed, ambulatory subject supports the diagnosis of Diabetes Mellitus. Performed By: #### U RDS, ADDONUAPLUS #### [address] Glucose Poct Glucometerson 0 04-03-2025 Commemt1 Glu2: Cleaned Meter Normal [facility] Comment on above: Result Comment: PERF ORMED BY: [place] [address] PATHOLOGIST COTTON FARMER BRAEDEN COLE M.D. Performed By: #### G LULS #### Point of Care testing , Glucose [Mass/Vol] 230 mg/dL Normal [facility] Comment on above: Result Comment: [place] Glucose Reference Range is dependent on time and content of last meal. Glucose of more than 200 mg/dL in a nonstressed, ambulatory subject supports the diagnosis of Diabetes Mellitus. Performed By: #### G LULS #### Point of Care testing , Commemt1 Glu2: Cleaned Meter Normal [facility] Comment on above: Result Comment: PERF ORMED BY: [place] [address] PATHOLOGIST COTTON FARMER BRAEDEN COLE M.D. Performed By: #### G LULS #### Point of Care testing , Glucose [Mass/Vol] 236 mg/dL Normal [facility] Comment on above: Result Comment: [place] Glucose Reference Range is dependent on time and content of last meal. Glucose of more than 200 mg/dL in a nonstressed, ambulatory subject supports the diagnosis of Diabetes Mellitus. Performed By: #### G LULS #### Point of Care testing , Glucose [Mass/Vol] 175 mg/dL Normal [facility] Comment on above: Result Comment: [place] Glucose Reference Range is dependent on time and content of last meal. Glucose of more than 200 mg/dL in a nonstressed, ambulatory subject supports the diagnosis of Diabetes Mellitus. PERFORMED BY: [address] [address] PATHOLOGIST COTTON FARMER BRAEDEN COLE M.D. Performed By: #### G LULS #### Point of Care testing , Commemt1 Glu2: Cleaned Meter Normal [facility] Comment on above: Result Comment: PERF ORMED BY: [facility] [address] [place] [address] PATHOLOGIST COTTON FARMER BRAEDEN COLE M.D. Performed By: #### G LULS #### Point of Care testing , Glucose [Mass/Vol] 278 mg/dL Normal [facility] Comment on above: Result Comment: [place] Glucose Reference Range is dependent on time and content of last meal. Glucose of more than 200 mg/dL in a nonstressed, ambulatory subject supports the diagnosis of Diabetes Mellitus. Performed By: #### G LULS #### Point of Care testing , Alanine aminotransferase [En zymatic activity/volume] in Serum or PlasmaOrdered By: Rola Valdes on 04-02-2025 ALT [Catalytic activity/Vol] Alanine aminotransferase [Enzymatic activity/volume] in Serum or Plasma [facility] Albumin [Mass/volume] in Ser um or Plasma by Bromocresol green (BCG) dye binding methoOrdered By: Rola Valdes on 04-02-2025 Albumin BCG dye [Mass/Vol] Albumin [Mass/volume] in Serum or Plasma by Bromocresol green (BCG) dye binding metho 3.5-5.7 [facility] Alkaline phosphatase [Enzyma tic activity/volume] in Serum or PlasmaOrdered By: Rola Valdes on 04-02-2025 ALP [Catalytic activity/Vol] Alkaline phosphatase [Enzymatic activity/volume] in Serum or Plasma 34-104 [facility] Apolipoprotein Bon Apolipoprotein B [Mass/Vol] 83 mg/dL Normal <90 [facility] Comment on above: Result Comment: Anjelica rable < 90 Borderline High 90 - 99 High 100 - 130 Very High >130 ASCVD RISK THERAPEUTIC TARGET CATEGORY APO B (mg/dL) Very High Risk <80 (if extreme risk <70) High Risk <90 Moderate Risk <90 Performed at: [facility] [id number] Search Consultant: Jermaine Perdomo MD, Phone: [phone] PERFORMED BY: [place] [id number] PATHOLOGIST COTTON FARMER BRAEDEN COLE M.D. Performed By: #### G LUNICO #### Point of Care testing , Aspartate aminotransferase [ Enzymatic activity/volume] in Serum or PlasmaOrdered By: Rola Valdes on 04-02-2025 AST [Catalytic activity/Vol] Aspartate aminotransferase [Enzymatic activity/volume] in Serum or Plasma Low 13-39 [facility] Bilirubin.total [Mass/volume ] in Serum or PlasmaOrdered By: Rola Valdes on 04-02-2025 Bilirubin [Mass/Vol] Bilirubin.total [Mass/volume] in Serum or Plasma 0.3-1.0 [facility] Calcium [Mass/volume] in Ser um or PlasmaOrdered By: Rola Valdes on 04-02-2025 Calcium [Mass/Vol] Calcium [Mass/volume ] in Serum or Plasma 8.6-10.3 [facility] Carbon dioxide, total [Moles /volume] in Serum or PlasmaOrdered By: Rola Valdes on 04-02-2025 CO2 [Moles/Vol] Carbon dioxide, tota l [Moles/volume] in Serum or Plasma 21.0-31.0 [facility] Chloride [Moles/volume] in S emerson or PlasmaOrdered By: Rola Valdes on 04-02-2025 Chloride [Moles/Vol] Chloride [Moles/volume] in Serum or Plasma 98-107 [facility] Cholesterol [Mass/volume] in Serum or PlasmaOrdered By: Rola Valdes on 04-02-2025 Cholesterol [Mass/Vol] Cholesterol [Mass/volume] in Serum or Plasma Significant change up 140-200 [facility] Comment on above: Delta: 267 on -0455Chol less than 200 mg/dl low riskChol 201-239 mg/dl borderline riskChol 240 mg/dl and greater high risk Cholesterol in HDL [Mass/vol ume] in Serum or PlasmaOrdered By: Rola Reno on 04-02-2025 Cholesterol in HDL [Mass/Vol] Serum or plasma high density lipoprotein (HDL) cholesterol measurement 23-92 [facility] Comment on above: HDL CHOL ATP-III CLA SSIFICATION Cardiovascular RiskHDL > or equal to 60 mg/dL LOWHDL < 40 mg/dL HIGH Cholesterol in LDL Calc [Mas s/Vol]Ordered By: Rola Valdes on 04-02-2025 Cholesterol in LDL [Mass/Vol] Cholesterol in LDL [Mass/volume] in Serum or Plasma by calculation 0-100 [facility] Comment on above: LDL ATP III CLASSIFI CATIONLDL less than 100 mg/dL OptimalLDL 100-129 mg/dL Near or above optimalLDL 130-159 mg/dL Borderline highLDL 160-189 mg/dL HighLDL greater than 189 mg/dL Very high Cholesterol in LDL [Mass/vol ume] in Serum or PlasmaOrdered By: Rola Reno on 04-02-2025 Cholesterol in LDL [Mass/Vol] Cholesterol in LDL [Mass/volume] in Serum or Plasma 0-100 [facility] Comment on above: LDL ATP III CLASSIFI CATIONLDL less than 100 mg/dL OptimalLDL 100-129 mg/dL Near or above optimalLDL 130-159 mg/dL Borderline highLDL 160-189 mg/dL HighLDL greater than 189 mg/dL Very high Cholesterol in VLDL Calc [Ma ss/Vol]Ordered By: Rola Valdes on 04-02-2025 Cholesterol in VLDL [Mass/Vol] Cholesterol in VLDL [Mass/volume] in Serum or Plasma by calculation [facility] Comment on above: Test not performed Comprehensive Metabolic Pane zoraida 04-02-2025 Albumin [Mass/Vol] 4.0 g/dL Normal 3.5-5.7 [facility] Comment on above: Order Comment: FASTI NG Y Performed By: #### G LULS #### Point of Care testing , Albumin/Globulin [Mass ratio] 1.8 {ratio} Normal [facility] Comment on above: Order Comment: FASTI NG Y Performed By: #### G LULS #### Point of Care testing , ALP [Catalytic activity/Vol] 38 U/L Normal 34-104 [facility] Comment on above: Order Comment: FASTI NG Y Performed By: #### G LULS #### Point of Care testing , ALT [Catalytic activity/Vol] 14 U/L Normal 7-52 [facility] Comment on above: Order Comment: FASTI NG Y Performed By: #### G LULS #### Point of Care testing , Anion gap [Moles/Vol] 10.7 mmol/L Normal 6.0-15.0 [facility] Comment on above: Order Comment: FASTI NG Y Performed By: #### G LULS #### Point of Care testing , AST [Catalytic activity/Vol] 12 U/L Low 13-39 [facility] Comment on above: Order Comment: FASTI NG Y Performed By: #### G LULS #### Point of Care testing , Bilirubin [Mass/Vol] 0.8 mg/dL Normal 0.3-1.0 [facility] Comment on above: Order Comment: FASTI NG Y Performed By: #### G LULS #### Point of Care testing , Calcium [Mass/Vol] 8.7 mg/dL Normal 8.6-10.3 [facility] Comment on above: Order Comment: FASTI NG Y Performed By: #### G LULS #### Point of Care testing , Chloride [Moles/Vol] 101 mmol/L Normal 98-107 [facility] Comment on above: Order Comment: FASTI NG Y Performed By: #### G LULS #### Point of Care testing , CO2 [Moles/Vol] 26.2 mmol/L Normal 21.0-31.0 [facility] Comment on above: Order Comment: FASTI NG Y Performed By: #### G LULS #### Point of Care testing , Creatinine [Mass/Vol] 0.85 mg/dL Normal 0.70-1.30 [facility] Comment on above: Order Comment: FASTI NG Y Performed By: #### G LULS #### Point of Care testing , Creatinine Clr Calc Pharmacy 159.88 Normal [facility] Comment on above: Order Comment: FASTI NG Y Performed By: #### G LULS #### Point of Care testing , GFR/1.73 sq M.predicted MDRD (S/P/Bld) [Vol rate/Area] mL/min/{1.73_m2} Normal [facility] Comment on above: Order Comment: FASTI NG Y Performed By: #### G LULS #### Point of Care testing , Globulin (S) [Mass/Vol] 2.2 g/dL Normal [facility] Comment on above: Order Comment: FASTI NG Y Performed By: #### G LULS #### Point of Care testing , Glucose [Mass/Vol] 312 mg/dL High 70-100 [facility] Comment on above: Order Comment: FASTI NG Y Result Comment: [place] Glucose Reference Range is dependent on time and content of last meal. Glucose of more than 200 mg/dL in a nonstressed, ambulatory subject supports the diagnosis of Diabetes Mellitus. ADA recommended reference range Performed By: #### G LULS #### Point of Care testing , Potassium [Moles/Vol] 3.9 mmol/L Normal 3.5-5.1 [facility] Comment on above: Order Comment: FASTI NG Y Performed By: #### G LULS #### Point of Care testing , Protein [Mass/Vol] 6.2 g/dL Low 6.4-8.9 [facility] Comment on above: Order Comment: FASTI NG Y Performed By: #### G LULS #### Point of Care testing , Sodium [Moles/Vol] 134 mmol/L Low 136-145 [facility] Comment on above: Order Comment: FASTI NG Y Performed By: #### G LULS #### Point of Care testing , Urea nitrogen [Mass/Vol] 14 mg/dL Normal 7-25 [facility] Comment on above: Order Comment: FASTI NG Y Performed By: #### G LULS #### Point of Care testing , Creatinine [Mass/volume] in Serum or PlasmaOrdered By: Rola Valdes on 04-02-2025 Creatinine [Mass/Vol] Creatinine [Mass/volume] in Serum or Plasma 0.70-1.30 [facility] Globulin Calc (S) [Mass/Vol] Ordered By: Rola Valdes on 04-02-2025 Globulin (S) [Mass/Vol] Serum globulin measurement by calculation (mass/volume) [facility] Glucose Poct Glucometerson 0 04-02-2025 Commemt1 Glu2: Cleaned Meter Normal [facility] Comment on above: Result Comment: PERF ORMED BY: [place] [address] PATHOLOGIST COTTON FARMER BRAEDEN COLE M.D. Performed By: #### G LULS #### Point of Care testing , Glucose [Mass/Vol] 267 mg/dL Normal [facility] Comment on above: Result Comment: [facility] Glucose Reference Range is dependent on time and content of last meal. Glucose of more than 200 mg/dL in a nonstressed, ambulatory subject supports the diagnosis of Diabetes Mellitus. Performed By: #### G LULS #### Point of Care testing , Commemt1 Glu2: Cleaned Meter Normal [facility] Comment on above: Result Comment: PERF ORMED BY: [place] [id number] PATHOLOGIST COTTON FARMER BRAEDEN COLE M.D. Performed By: #### U RDS, ADDONUAPLUS #### [facility] [address] [place] [address] Glucose [Mass/Vol] 308 mg/dL Normal [facility] Comment on above: Result Comment: [place] Glucose Reference Range is dependent on time and content of last meal. Glucose of more than 200 mg/dL in a nonstressed, ambulatory subject supports the diagnosis of Diabetes Mellitus. Performed By: #### U RDS, ADDONUAPLUS #### [facility] [address] [place] [address] Commemt1 Glu2: Cleaned Meter Normal [facility] Comment on above: Result Comment: PERF ORMED BY: [place] [address] PATHOLOGIST COTTON FARMER BRAEDEN COLE M.D. Performed By: #### G LULS #### Point of Care testing , Glucose [Mass/Vol] 279 mg/dL Normal [facility] Comment on above: Result Comment: [place] Glucose Reference Range is dependent on time and content of last meal. Glucose of more than 200 mg/dL in a nonstressed, ambulatory subject supports the diagnosis of Diabetes Mellitus. Performed By: #### G LULS #### Point of Care testing , Commemt1 Glu2: Cleaned Meter Normal [facility] Comment on above: Result Comment: PERF ORMED BY: [place] [address] PATHOLOGIST COTTON FARMER BRAEDEN COLE M.D. Performed By: #### G LULS #### Point of Care testing , Glucose [Mass/Vol] 302 mg/dL Normal [facility] Comment on above: Result Comment: [place] Glucose Reference Range is dependent on time and content of last meal. Glucose of more than 200 mg/dL in a nonstressed, ambulatory subject supports the diagnosis of Diabetes Mellitus. Performed By: #### G LULS #### Point of Care testing , Glucose [Mass/volume] in Ser um or PlasmaOrdered By: Rola Valdes on 04-02-2025 Glucose [Mass/Vol] Glucose [Mass/volume ] in Serum or Plasma High 70-100 [facility] Comment on above: ADA recommended refe rence rangeRandom Glucose Reference Range is dependent on time and content of last meal. Glucose of more than 200 mg/dL in a nonstressed, ambulatory subject supports the diagnosis of Diabetes Mellitus. LDL Cholesterol Measuredon 0 04-02-2025 LDL Cholesterol Measured 33 mg/dL Normal 0-100 [facility] Comment on above: Order Comment: FASTI NG Y Result Comment: LDL ATP III CLASSIFICATION LDL less than 100 mg/dL Optimal LDL 100-129 mg/dL Near or above optimal LDL 130-159 mg/dL Borderline high LDL 160-189 mg/dL High LDL greater than 189 mg/dL Very high PERFORMED BY: [facility] [address] [place] [address] PATHOLOGIST COTTON FARMER BRAEDEN COLE M.D. Performed By: #### G LULS #### Point of Care testing , Lipaseon 04-02-2025 Lipase [Catalytic activity/Vol] 39.0 U/L Normal 11.0-82.0 [facility] Comment on above: Order Comment: FASTI NG Y Performed By: #### G LULS #### Point of Care testing , Lipase [Enzymatic activity/v olume] in Serum or PlasmaOrdered By: Rola Valdes on 04-02-2025 Lipase [Catalytic activity/Vol] Lipase [Enzymatic activity/volume] in Serum or Plasma 11.0-82.0 [facility] Lipid Panelon 04-02-2025 Cholesterol [Mass/Vol] 196 mg/dL Invalid Interpretation Code 140-200 [facility] Comment on above: Order Comment: FASTI NG Y Result Comment: Chol less than 200 mg/dl low risk Chol 201-239 mg/dl borderline risk Chol 240 mg/dl and greater high risk Performed By: #### G LULS #### Point of Care testing , Cholesterol in HDL [Mass/Vol] 23 mg/dL Normal 23-92 [facility] Comment on above: Order Comment: FASTI NG Y Result Comment: HDL CHOL ATP-III CLASSIFICATION Cardiovascular Risk HDL > or equal to 60 mg/dL LOW HDL < 40 mg/dL HIGH Performed By: #### G LULS #### Point of Care testing , Cholesterol.total/Marge sterol in HDL [Mass ratio] 8.5 {ratio} Normal <5.0 [facility] Comment on above: Order Comment: FASTI NG Y Result Comment: PERF ORMED BY: [facility] [place] [address] PATHOLOGIST COTTON FARMER BRAEDEN COLE M.D. Performed By: #### G LULS #### Point of Care testing , LDL Cholesterol,Calculated <10 Normal 0-100 [facility] Comment on above: Order Comment: FASTI NG Y Result Comment: LDL ATP III CLASSIFICATION LDL less than 100 mg/dL Optimal LDL 100-129 mg/dL Near or above optimal LDL 130-159 mg/dL Borderline high LDL 160-189 mg/dL High LDL greater than 189 mg/dL Very high Performed By: #### G LULS #### Point of Care testing , Triglyceride w/Reflex 830 mg/dL High 0-149 [facility] Comment on above: Order Comment: FASTI NG Y Result Comment: TRIG ATP III CLASSIFICATION TRIG less than 150 mg/dL Normal TRIG 150-199 mg/dL Borderline high TRIG 200-500 mg/dL High TRIG greater than 500 mg/dL Very high Standard traceable to the Center for Disease Conrtrol and Prevention (CDC) test method. If the triglyceride result is greater than 400, LDLC and related calculations cannot be calculated and resulted. Performed By: #### G LULS #### Point of Care testing , VLDL CHOLESTEROL Not performed Normal [facility] Comment on above: Order Comment: FASTI NG Y Performed By: #### G LULS #### Point of Care testing , No Panel InformationOrdered By: Rola Valdes on 04-02-2025 Estimated GFR (CKD-EPI) > 60.0 mL/Min [facility] Creatinine Clearance (Chem 159.88 [facility] Potassium [Moles/volume] in Serum or PlasmaOrdered By: Rola Valdes on 04-02-2025 Potassium [Moles/Vol] Potassium [Moles/volume] in Serum or Plasma 3.5-5.1 [facility] Protein [Mass/volume] in Ser um or PlasmaOrdered By: Rola Valdes on 04-02-2025 Protein [Mass/Vol] Protein [Mass/volume ] in Serum or Plasma Low 6.4-8.9 [facility] Redraw Vitamin D 25OHon 060 Redraw Vitamin D 25OH 18.6 ng/mL Low 30-100 [facility] Comment on above: Result Comment: YU MIN D STATUS 25(OH)VITAMIN D RANGE (ng/mL) Deficient <20 Insufficient 20 to <30 Sufficient 30 to 100 Reference: Ashley MF,Jodee NC, Christina GUEVARA, et al. Evaluation,treatment, and prevention of vitamin D deficiency; an Endocrine Society clinical practice guideline. JCEM. 2010; 96(7):1911-30. PERFORMED BY: [facility] [address] [place] [address] PATHOLOGIST COTTON FARMER BRAEDEN COLE M.D. Performed By: #### G LULS #### Point of Care testing , Serum or plasma albumin/glob ulin mass ratioOrdered By: Rola Valdes on 04-02-2025 Albumin/Globulin [Mass ratio] Serum or plasma albumin/globulin mass ratio [facility] Serum or plasma anion gap de terminationOrdered By: Rola Valdes on 04-02-2025 Anion gap [Moles/Vol] Serum or plasma an ion gap determination 6.0-15.0 [facility] Serum or plasma total choles terol/high density lipoprotein (HDL) cholesterol mass ratOrdered By: Rola Valdes on 04-02-2025 Cholesterol.total/Marge sterol in HDL [Mass ratio] Serum or plasma total cholesterol/high density lipoprotein (HDL) cholesterol mass rat <5.0 [facility] Sodium [Moles/volume] in Ser um or PlasmaOrdered By: Rola Valdes on 04-02-2025 Sodium [Moles/Vol] Sodium [Moles/volume ] in Serum or Plasma Low 136-145 [facility] Triglyceride [Mass/volume] i n Serum or PlasmaOrdered By: Rola Valdes on 04-02-2025 Triglyceride [Mass/Vol] Triglyceride [Mass/volume] in Serum or Plasma High 0-149 [facility] Comment on above: If the triglyceride result is greater than 400, LDLC and related calculations cannot be calculated and resulted.TRIG ATP III CLASSIFICATIONTRIG less than 150 mg/dL NormalTRIG 150-199 mg/dL Borderline highTRIG 200-500 mg/dL High TRIG greater than 500 mg/dL Very highStandard traceable to the Center for Disease Conrtrol and Prevention (CDC) test method. Urea nitrogen [Mass/volume] in Serum or PlasmaOrdered By: Rola Valdes on 04-02-2025 Urea nitrogen [Mass/Vol] Urea nitrogen [Mass/volume] in Serum or Plasma 7-25 [facility] Vitamin B12on 04-02-2025 Cobalamin (Vitamin B12) [Mass/Vol] 632 pg/mL Normal 180-914 [facility] Comment on above: Order Comment: Comme nt add on to previously drawn specimen Result Comment: PERF ORMED BY: [facility] [address] [place] [address] PATHOLOGIST COTTON FARMER BRAEDEN COLE M.D. Performed By: #### G LULS #### Point of Care testing , Vitamin B12 ser/plasOrdered By: Rola Valdes on 04-02-2025 Cobalamin (Vitamin B12) [Mass/Vol] Vitamin B12 ser/plas 180-914 [facility] Vitamin D+Metabolites [Mass/ volume] in Serum or PlasmaOrdered By: Blue Talbot on 04-02-2025 Vitamin D+Metabolites [Mass/Vol] Vitamin D+Metabolites [Mass/volume] in Serum or Plasma Low 30-100 [facility] Comment on above: VITAMIN D STATUS 25( [place])VITAMIN D RANGE (ng/mL) Deficient <20 Insufficient 20 to <30Sufficient 30 to 100Reference: Ashley MF,Jodee BOB, Christina GUEVARA, et al. Evaluation,treatment, and prevention of vitamin D deficiency; an Endocrine Society clinical practice guideline. JCEM. 2010; 96(7):1911-30. A1C with Estimated Average G racheal 04-01-2025 Glucose [Mass/Vol] 240 mg/dL Normal [facility] Comment on above: Result Comment: PERF ORMED BY: [facility] [place] [address] PATHOLOGIST COTTON FARMER BRAEDEN COLE M.D. Performed By: #### G LULS #### Point of Care testing , HbA1c (Bld) [Mass fraction] 10.0 % High 4.3-5.6 [facility] Comment on above: Result Comment: Incr eased risk for diabetes: 5.7 - 6.4 diabetes: >6.4 glycemic control for adults with diabetes: <7.0 Performed By: #### G LULS #### Point of Care testing , Blood estimated average gluc ose determination by estimation from glycated hemoglobinOrdered By: Blue Talbot on 04-01-2025 Average glucose Estimated from glycated hemoglobin (Bld) [Mass/Vol] Glucose mean value [Mass/volume] in Blood Estimated from glycated hemoglobin [facility] Glucose Poct Glucometerson 0 04-01-2025 Commemt1 Glu2: Cleaned Meter Normal [facility] Comment on above: Result Comment: PERF ORMED BY: [address] [place] [address] PATHOLOGIST COTTON FARMER BRAEDEN COLE M.D. Performed By: #### G LULS #### Point of Care testing , Glucose [Mass/Vol] 284 mg/dL Normal [facility] Comment on above: Result Comment: [facility] Glucose Reference Range is dependent on time and content of last meal. Glucose of more than 200 mg/dL in a nonstressed, ambulatory subject supports the diagnosis of Diabetes Mellitus. Performed By: #### G LULS #### Point of Care testing , Commemt1 Glu2: Cleaned Meter Normal [facility] Comment on above: Result Comment: PERF ORMED BY: [facility] [address] [place] [address] PATHOLOGIST COTTON FARMER BRAEDEN COLE M.D. Performed By: #### G LULS #### Point of Care testing , Glucose [Mass/Vol] 368 mg/dL Normal [facility] Comment on above: Result Comment: [place] om Glucose Reference Range is dependent on time and content of last meal. Glucose of more than 200 mg/dL in a nonstressed, ambulatory subject supports the diagnosis of Diabetes Mellitus. Performed By: #### G LULS #### Point of Care testing , Commemt1 Normal [facility] Comment on above: Result Comment: Glu2 : WILL NOTIFY DR/RN PERFORMED BY: [place] [address] PATHOLOGIST COTTON FARMER BRAEDEN COLE M.D. Performed By: #### U RDS, ADDONUAPLUS #### [facility] [address] Glucose [Mass/Vol] 449 mg/dL Off scale high [facility] Comment on above: Result Comment: [place] Glucose Reference Range is dependent on time and content of last meal. Glucose of more than 200 mg/dL in a nonstressed, ambulatory subject supports the diagnosis of Diabetes Mellitus. Performed By: #### U RDS, ADDONUAPLUS #### [facility] [address] Hemoglobin A1c/Hemoglobin.to porfirio in BloodOrdered By: Blue Talbot on 04-01-2025 HbA1c (Bld) [Mass fraction] Hemoglobin A1c percentage High 4.3-5.6 [facility] Comment on above: Increased risk for d iabetes: 5.7 - 6.4diabetes: >6.4glycemic control for adults with diabetes: <7.0 Lipid Panelon 04-01-2025 Cholesterol [Mass/Vol] 267 mg/dL High 140-200 [facility] Comment on above: Result Comment: Chol less than 200 mg/dl low risk Chol 201-239 mg/dl borderline risk Chol 240 mg/dl and greater high risk Performed By: #### G LULS #### Point of Care testing , Cholesterol in HDL [Mass/Vol] 20 mg/dL Low 23-92 [facility] Comment on above: Result Comment: HDL CHOL ATP-III CLASSIFICATION Cardiovascular Risk HDL > or equal to 60 mg/dL LOW HDL < 40 mg/dL HIGH Performed By: #### G LULS #### Point of Care testing , Cholesterol.total/Marge sterol in HDL [Mass ratio] 13.4 {ratio} Normal <5.0 [facility] Comment on above: Performed By: #### G BABRARALS #### Point of Care testing , LDL Cholesterol,Calculated Not performed Normal 0-100 [facility] Comment on above: Performed By: #### G LULS #### Point of Care testing , Triglyceride w/Reflex 2200 mg/dL High 0-149 [facility] Comment on above: Result Comment: If t he triglyceride result is greater than 1293, measured LDL cannot be resulted. TRIG ATP III CLASSIFICATION TRIG less than 150 mg/dL Normal TRIG 150-199 mg/dL Borderline high TRIG 200-500 mg/dL High TRIG greater than 500 mg/dL Very high Standard traceable to the Center for Disease Conrtrol and Prevention (CDC) test method. If the triglyceride result is greater than 400, LDLC and related calculations cannot be calculated and resulted. Performed By: #### G LULS #### Point of Care testing , VLDL CHOLESTEROL Not performed Normal [facility] Comment on above: Performed By: #### G BARBARALS #### Point of Care testing , Thyroid Stim Hormone w/Rflxo n 04-01-2025 Thyroid Stim Hormone w/Rflx 3.72 u[iU]/mL Normal 0.45-5.33 [facility] Comment on above: Performed By: #### G BARBARALS #### Point of Care testing , Thyrotropin [Units/volume] i n Serum or PlasmaOrdered By: Blue Talbot on 04-01-2025 TSH Qn Thyrotropin [Units/volume] in Serum or Plasma 0.45-5.33 [facility] Vitamin D 25 Hydroxy Totalon 04-01-2025 Vitamin D 25 Hydroxy Total Normal 30-100 [facility] Comment on above: Result Comment: Spec imen hemolyzed, redraw requested VITAMIN D STATUS 25(OH)VITAMIN D RANGE (ng/mL) Deficient <20 Insufficient 20 to <30 Sufficient 30 to 100 Reference: Ashley MF,Jodee NC, Christina GUEVARA, et al. Evaluation,treatment, and prevention of vitamin D deficiency; an Endocrine Society clinical practice guideline. JCEM. 2010; 96(7):1911-30. PERFORMED BY: [facility] [address] [place] [address] PATHOLOGIST COTTON FARMER BRAEDEN COLE M.D. Performed By: #### G LULS #### Point of Care testing , Acetaminophenon 03-31-2025 Acetaminophen [Mass/Vol] 0.1 ug/mL Low 10.0-30.0 [facility] Comment on above: Result Comment: PERF ORMED BY: [facility] [address] [place] [address] PATHOLOGIST COTTON FARMER BRAEDEN COLE M.D. Performed By: #### G LUNICO #### Point of Care testing , Acetaminophen [Mass/volume] in Serum or PlasmaOrdered By: Kris Gross on 03-31-2025 Acetaminophen [Mass/Vol] Acetaminophen [Mass/volume] in Serum or Plasma Low 10.0-30.0 [facility] Alanine aminotransferase [En zymatic activity/volume] in Serum or PlasmaOrdered By: Kris Gross on 03-31-2025 ALT [Catalytic activity/Vol] Alanine aminotransferase [Enzymatic activity/volume] in Serum or Plasma 7-52 [facility] Albumin [Mass/volume] in Ser um or Plasma by Bromocresol green (BCG) dye binding methoOrdered By: Kris Gross on 03-31-2025 Albumin BCG dye [Mass/Vol] Albumin [Mass/volume] in Serum or Plasma by Bromocresol green (BCG) dye binding metho 3.5-5.7 [facility] Alkaline phosphatase [Enzyma tic activity/volume] in Serum or PlasmaOrdered By: Kris Gross on 03-31-2025 ALP [Catalytic activity/Vol] Alkaline phosphatase [Enzymatic activity/volume] in Serum or Plasma 34-104 [facility] Aspartate aminotransferase [ Enzymatic activity/volume] in Serum or PlasmaOrdered By: Kris Gross on 03-31-2025 AST [Catalytic activity/Vol] Aspartate aminotransferase [Enzymatic activity/volume] in Serum or Plasma 13-39 [facility] Bilirubin.total [Mass/volume ] in Serum or PlasmaOrdered By: Kris Gross on 03-31-2025 Bilirubin [Mass/Vol] Bilirubin.total [Mass/volume] in Serum or Plasma 0.3-1.0 [facility] Calcium [Mass/volume] in Ser um or PlasmaOrdered By: Kris Gross on 03-31-2025 Calcium [Mass/Vol] Calcium [Mass/volume ] in Serum or Plasma 8.6-10.3 [facility] Carbon dioxide, total [Moles /volume] in Serum or PlasmaOrdered By: Kris Gross on 03-31-2025 CO2 [Moles/Vol] Carbon dioxide, tota l [Moles/volume] in Serum or Plasma 21.0-31.0 [facility] Chloride [Moles/volume] in S emerson or PlasmaOrdered By: Kris Gross on 03-31-2025 Chloride [Moles/Vol] Chloride [Moles/volume] in Serum or Plasma 98-107 [facility] Comprehensive Metabolic Pane zoraida 03-31-2025 Albumin [Mass/Vol] 4.5 g/dL Normal 3.5-5.7 [facility] Comment on above: Performed By: #### G LULS #### Point of Care testing , Albumin/Globulin [Mass ratio] 1.7 {ratio} Normal [facility] Comment on above: Performed By: #### G LULS #### Point of Care testing , ALP [Catalytic activity/Vol] 42 U/L Normal 34-104 [facility] Comment on above: Result Comment: PERF ORMED BY: [facility] [address] [place] [address] PATHOLOGIST COTTON FARMER BRAEDEN COLE M.D. Performed By: #### G LULS #### Point of Care testing , ALT [Catalytic activity/Vol] 15 U/L Normal 7-52 [facility] Comment on above: Performed By: #### G LULS #### Point of Care testing , Anion gap [Moles/Vol] 12.8 mmol/L Normal 6.0-15.0 [facility] Comment on above: Performed By: #### G LULS #### Point of Care testing , AST [Catalytic activity/Vol] 18 U/L Normal 13-39 [facility] Comment on above: Performed By: #### G LULS #### Point of Care testing , Bilirubin [Mass/Vol] 0.6 mg/dL Normal 0.3-1.0 [facility] Comment on above: Performed By: #### G LULS #### Point of Care testing , Calcium [Mass/Vol] 9.2 mg/dL Normal 8.6-10.3 [facility] Comment on above: Performed By: #### G LULS #### Point of Care testing , Chloride [Moles/Vol] 101 mmol/L Normal 98-107 [facility] Comment on above: Performed By: #### G LULS #### Point of Care testing , CO2 [Moles/Vol] 23.4 mmol/L Normal 21.0-31.0 [facility] Comment on above: Performed By: #### G LULS #### Point of Care testing , Creatinine [Mass/Vol] 0.82 mg/dL Normal 0.70-1.30 [facility] Comment on above: Performed By: #### G LULS #### Point of Care testing , GFR/1.73 sq M.predicted MDRD (S/P/Bld) [Vol rate/Area] mL/min/{1.73_m2} Normal [facility] Comment on above: Performed By: #### G LULS #### Point of Care testing , Globulin (S) [Mass/Vol] 2.6 g/dL Normal T [facility] Comment on above: Performed By: #### G LULS #### Point of Care testing , Glucose [Mass/Vol] 321 mg/dL High 70-100 [facility] Comment on above: Result Comment: [place] Glucose Reference Range is dependent on time and content of last meal. Glucose of more than 200 mg/dL in a nonstressed, ambulatory subject supports the diagnosis of Diabetes Mellitus. ADA recommended reference range Performed By: #### G LULS #### Point of Care testing , Potassium [Moles/Vol] 4.2 mmol/L Normal 3.5-5.1 [facility] Comment on above: Result Comment: Hemo lysis is present at a level that could interfere with the result. Contact lab if redraw is required Performed By: #### G LULS #### Point of Care testing , Protein [Mass/Vol] 7.1 g/dL Normal 6.4-8.9 [facility] Comment on above: Performed By: #### G LULS #### Point of Care testing , Sodium [Moles/Vol] 133 mmol/L Low 136-145 [facility] Comment on above: Performed By: #### G LULS #### Point of Care testing , Urea nitrogen [Mass/Vol] 19 mg/dL Normal 7-25 [facility] Comment on above: Performed By: #### G LULS #### Point of Care testing , Creatinine [Mass/volume] in Serum or PlasmaOrdered By: Kris Gross on 03-31-2025 Creatinine [Mass/Vol] Creatinine [Mass/volume] in Serum or Plasma 0.70-1.30 [facility] Ethanol [Mass/volume] in Ser um or PlasmaOrdered By: Kris Gross on 03-31-2025 Ethanol [Mass/Vol] Ethanol [Mass/volume ] in Serum or Plasma [facility] Comment on above: Lipemia is present a t a level that could interfere with the result.Hemolysis is present at a level that could interfere with the result. Test not performed Ethyl Alcohol Profileon Ethanol [Mass/Vol] mg/dL Normal [facility] Comment on above: Result Comment: Ernie shasha is present at a level that could interfere with the result. Hemolysis is present at a level that could interfere with the result. Performed By: #### G LULS #### Point of Care testing , Percent Ethanol Not performed Normal [facility] Comment on above: Result Comment: PERF ORMED BY: [facility] [address] [place] [address] PATHOLOGIST COTTON FARMER BRAEDEN COLE M.D. Performed By: #### G LULS #### Point of Care testing , Globulin Calc (S) [Mass/Vol] Ordered By: Kris Gross on 03-31-2025 Globulin (S) [Mass/Vol] Serum globulin measurement by calculation (mass/volume) [facility] Glucose Glucometer (BldC) [M ass/Vol]Ordered By: Blue Talbot on 03-31-2025 Glucose [Mass/Vol] Capillary blood glucose measurement by glucometer (mass/volume) [facility] Comment on above: Random Glucose Refer ence Range is dependent on time and content of last meal. Glucose of more than 200 mg/dL in a nonstressed, ambulatory subject supports the diagnosis of Diabetes Mellitus. Glucose Poct Glucometerson 0 03-31-2025 Glucose [Mass/Vol] 292 mg/dL Normal [facility] Comment on above: Result Comment: [place] om Glucose Reference Range is dependent on time and content of last meal. Glucose of more than 200 mg/dL in a nonstressed, ambulatory subject supports the diagnosis of Diabetes Mellitus. PERFORMED BY: [facility] [address] [place] [address] PATHOLOGIST COTTON FARMER BRAEDEN COLE M.D. Performed By: #### G JORDIN #### Point of Care testing , Glucose [Mass/volume] in Ser um or PlasmaOrdered By: Kris Gross on 03-31-2025 Glucose [Mass/Vol] Glucose [Mass/volume ] in Serum or Plasma High 70-100 [facility] Comment on above: ADA recommended refe rence rangeRandom Glucose Reference Range is dependent on time and content of last meal. Glucose of more than 200 mg/dL in a nonstressed, ambulatory subject supports the diagnosis of Diabetes Mellitus. No Panel InformationOrdered By: Kris Gross on 03-31-2025 Estimated GFR (CKD-EPI) > 60.0 mL/Min [facility] Creatinine Clearance (Chem N/A [facility] Potassium [Moles/volume] in Serum or PlasmaOrdered By: Kris Gross on 03-31-2025 Potassium [Moles/Vol] Potassium [Moles/volume] in Serum or Plasma 3.5-5.1 [facility] Comment on above: Hemolysis is present at a level that could interfere with the result.Contact lab if redraw is required Protein [Mass/volume] in Ser um or PlasmaOrdered By: Kris Gross on 03-31-2025 Protein [Mass/Vol] Protein [Mass/volume ] in Serum or Plasma 6.4-8.9 [facility] Salicylateon 03-31-2025 Salicylate <1.5 Low 15.0-30.0 [facility] Comment on above: Result Comment: Christa ents treated with Sulfasalazine may generate a false high result for Salicylate. Performed By: #### G LULS #### Point of Care testing , Salicylates [Mass/volume] in Serum or PlasmaOrdered By: Kris Gross on 03-31-2025 Salicylates [Mass/Vol] Salicylates [Mass/volume] in Serum or Plasma Low 15.0-30.0 [facility] Comment on above: Patients treated wit h Sulfasalazine may generate a false high result for Salicylate. Serum or plasma albumin/glob ulin mass ratioOrdered By: Kris Gross on 03-31-2025 Albumin/Globulin [Mass ratio] Serum or plasma albumin/globulin mass ratio [facility] Serum or plasma anion gap de terminationOrdered By: Kris Gross on 03-31-2025 Anion gap [Moles/Vol] Serum or plasma an ion gap determination 6.0-15.0 [facility] Sodium [Moles/volume] in Ser um or PlasmaOrdered By: Kris Gross on 03-31-2025 Sodium [Moles/Vol] Sodium [Moles/volume ] in Serum or Plasma Low 136-145 [facility] Urea nitrogen [Mass/volume] in Serum or PlasmaOrdered By: Kris Gross on 03-31-2025 Urea nitrogen [Mass/Vol] Urea nitrogen [Mass/volume] in Serum or Plasma 7-25 [facility] Glucose Glucometer (BldC) [M ass/Vol]Ordered By: Blue Talbot on 01-09-2025 Glucose [Mass/Vol] Capillary blood glucose measurement by glucometer (mass/volume) [facility] Comment on above: Random Glucose Refer ence Range is dependent on time and content of last meal. Glucose of more than 200 mg/dL in a nonstressed, ambulatory subject supports the diagnosis of Diabetes Mellitus. Glucose Poct Glucometerson 0 01-09-2025 Glucose [Mass/Vol] 142 mg/dL Normal [facility] Comment on above: Result Comment: [facility] Glucose Reference Range is dependent on time and content of last meal. Glucose of more than 200 mg/dL in a nonstressed, ambulatory subject supports the diagnosis of Diabetes Mellitus. PERFORMED BY: [place] [address] PATHOLOGIST COTTON FARMER CORINNE RITTER M.D. Performed By: #### G JORDIN #### Point of Care testing , Glucose [Mass/Vol] 164 mg/dL Normal [facility] Comment on above: Result Comment: [facility] Glucose Reference Range is dependent on time and content of last meal. Glucose of more than 200 mg/dL in a nonstressed, ambulatory subject supports the diagnosis of Diabetes Mellitus. PERFORMED BY: [place] [address] PATHOLOGIST COTTON FARMER CORINNE RITTER M.D. Performed By: #### U HEBER ADDONUAPLUS #### [facility] [address] [place] [address] Glucose Poct Glucometerson 0 01-08-2025 Glucose [Mass/Vol] 250 mg/dL Normal [facility] Comment on above: Result Comment: [facility] Glucose Reference Range is dependent on time and content of last meal. Glucose of more than 200 mg/dL in a nonstressed, ambulatory subject supports the diagnosis of Diabetes Mellitus. PERFORMED BY: [place] [id number] PATHOLOGIST COTTON FARMER CORINNE RITTER M.D. Performed By: #### U HEBER, ADDONUAPLUS #### [facility] [address] [place] [address] Glucose [Mass/Vol] 219 mg/dL Normal [facility] Comment on above: Result Comment: [facility] Glucose Reference Range is dependent on time and content of last meal. Glucose of more than 200 mg/dL in a nonstressed, ambulatory subject supports the diagnosis of Diabetes Mellitus. PERFORMED BY: [place] [id number] PATHOLOGIST COTTON FARMER CORINNE RITTER M.D. Performed By: #### G JORDIN #### Point of Care testing , Glucose [Mass/Vol] 155 mg/dL Normal [facility] Comment on above: Result Comment: [facility] Glucose Reference Range is dependent on time and content of last meal. Glucose of more than 200 mg/dL in a nonstressed, ambulatory subject supports the diagnosis of Diabetes Mellitus. PERFORMED BY: [place] [address] PATHOLOGIST COTTON FARMER CORINNE RITTER M.D. Performed By: #### U HEBER, ADDONUAPLUS #### [address] Commemt1 Glu2: Cleaned Meter Normal [facility] Comment on above: Result Comment: PERF ORMED BY: [place] [address] PATHOLOGIST COTTON FARMER CORINNE RITTER M.D. Performed By: #### U HEBER, ADDONUAPLUS #### [address] Glucose [Mass/Vol] 177 mg/dL Normal [facility] Comment on above: Result Comment: [facility] Glucose Reference Range is dependent on time and content of last meal. Glucose of more than 200 mg/dL in a nonstressed, ambulatory subject supports the diagnosis of Diabetes Mellitus. Performed By: #### U RDS, ADDONUAPLUS #### [address] No Panel InformationOrdered By: Blue Talbot on 01-08-2025 Bedside Glucose Comment Glu2: cleaned meter [facility] Glucose Poct Glucometerson 0 01-07-2025 Glucose [Mass/Vol] 221 mg/dL Normal [facility] Comment on above: Result Comment: [facility] Glucose Reference Range is dependent on time and content of last meal. Glucose of more than 200 mg/dL in a nonstressed, ambulatory subject supports the diagnosis of Diabetes Mellitus. PERFORMED BY: [place] [address] PATHOLOGIST COTTON FARMER CORINNE RITTER M.D. Performed By: #### U RDS, ADDONUAPLUS #### [address] Glucose [Mass/Vol] 184 mg/dL Normal [facility] Comment on above: Result Comment: [facility] Glucose Reference Range is dependent on time and content of last meal. Glucose of more than 200 mg/dL in a nonstressed, ambulatory subject supports the diagnosis of Diabetes Mellitus. PERFORMED BY: [place] [address] PATHOLOGIST COTTON FARMER CORINNE RITTER M.D. Performed By: #### G LULS #### Point of Care testing , Glucose [Mass/Vol] 216 mg/dL Normal [facility] Comment on above: Result Comment: [facility] Glucose Reference Range is dependent on time and content of last meal. Glucose of more than 200 mg/dL in a nonstressed, ambulatory subject supports the diagnosis of Diabetes Mellitus. PERFORMED BY: [place] [address] PATHOLOGIST COTTON FARMER CORINNE RITTER M.D. Performed By: #### G LULS #### Point of Care testing , Glucose [Mass/Vol] 143 mg/dL Normal [facility] Comment on above: Result Comment: [facility] Glucose Reference Range is dependent on time and content of last meal. Glucose of more than 200 mg/dL in a nonstressed, ambulatory subject supports the diagnosis of Diabetes Mellitus. PERFORMED BY: [place] [address] PATHOLOGIST COTTON FARMER CORINNE RITTER M.D. Performed By: #### G LULS #### Point of Care testing , A1C with Estimated Average [facility] 01-[facility]2025 Glucose [Mass/Vol] 212 mg/dL Normal [facility] Comment on above: Result Comment: PERF ORMED BY: [place] [address] PATHOLOGIST COTTON FARMER CORINNE RITTER M.D. Performed By: #### G JORDIN #### Point of Care testing , HbA1c (Bld) [Mass fraction] 9.0 % High 4.3-5.6 [facility] Comment on above: Result [...] [Mass/volume] in Blood Estimated from glycated hemoglobin [facility] Cholesterol [Mass/volume] in Serum or PlasmaOrdered By: Blue Talbot on 01-06-2025 Cholesterol [Mass/Vol] Cholesterol [Mass/volume] in Serum or Plasma 140-200 [facility] Comment on above: Chol less than 200 m g/dl low riskChol 201-239 mg/dl borderline riskChol 240 mg/dl and greater high risk Cholesterol in HDL [Mass/vol ume] in Serum or PlasmaOrdered By: Blue Talbot on 01-06-2025 Cholesterol in HDL [Mass/Vol] Serum or plasma high density lipoprotein (HDL) cholesterol measurement Low 23-92 [facility] Comment on above: HDL CHOL ATP-III CLA SSIFICATION Cardiovascular RiskHDL > or equal to 60 mg/dL LOWHDL < 40 mg/dL HIGH Cholesterol in LDL Calc [Mas s/Vol]Ordered By: Blue Talbot on 01-06-2025 Cholesterol in LDL [Mass/Vol] Cholesterol in LDL [Mass/volume] in Serum or Plasma by calculation 0-100 [facility] Comment on above: LDL ATP III CLASSIFI CATIONLDL less than 100 mg/dL OptimalLDL 100-129 mg/dL Near or above optimalLDL 130-159 mg/dL Borderline highLDL 160-189 mg/dL HighLDL greater than 189 mg/dL Very high Cholesterol in LDL [Mass/vol ume] in Serum or PlasmaOrdered By: Blue Talbot on 01-06-2025 Cholesterol in LDL [Mass/Vol] Cholesterol in LDL [Mass/volume] in Serum or Plasma 0-100 [facility] Comment on above: LDL ATP III CLASSIFI CATIONLDL less than 100 mg/dL OptimalLDL 100-129 mg/dL Near or above optimalLDL 130-159 mg/dL Borderline highLDL 160-189 mg/dL HighLDL greater than 189 mg/dL Very high Cholesterol in VLDL Calc [Ma ss/Vol]Ordered By: Blue Talbot on 01-06-2025 Cholesterol in VLDL [Mass/Vol] Cholesterol in VLDL [Mass/volume] in Serum or Plasma by calculation [facility] Comment on above: Test not performed ECG 12 lead ECGon 01-06-2025 ECG 12 lead ECG [facility] [place] [address] Electrocardiograph Report Signed Patient: Tracie Ramirez MR#: [id number] : 2000 Acct:[id number] Age/Sex: 24 / M ADM Date: 01/05/25 Loc: Room: [address] [place] [address] Type: ADM IN Attending Dr: Blue Talbot [...] Rachel MD 0 01/08/25 1633 Normal [facility] Free T4 (Free Thyroxine)on 0 01-06-2025 Free T4 [Mass/Vol] 0.78 ng/dL Normal 0.61-1.12 [facility] Comment on above: Performed By: #### U HEBER, ADDONUAPLUS #### [facility] [address] Glucose Poct Glucometerson 0 01-06-2025 Glucose [Mass/Vol] 195 mg/dL Normal [facility] Comment on above: Result Comment: [place] Glucose Reference Range is dependent on time and content of last meal. Glucose of more than 200 mg/dL in a nonstressed, ambulatory subject supports the diagnosis of Diabetes Mellitus. PERFORMED BY: [place] [address] PATHOLOGIST COTTON FARMER CORINNE RITTER M.D. Performed By: #### U HEBER, ADDONUAPLUS #### [address] Glucose [Mass/Vol] 161 mg/dL Normal [facility] Comment on above: Result Comment: [place] Glucose Reference Range is dependent on time and content of last meal. Glucose of more than 200 mg/dL in a nonstressed, ambulatory subject supports the diagnosis of Diabetes Mellitus. PERFORMED BY: [place] [address] PATHOLOGIST COTTON FARMER CORINNE RITTER M.D. Performed By: #### U HEBER, ADDONUAPLUS #### [address] Glucose [Mass/Vol] 208 mg/dL Normal [facility] Comment on above: Result Comment: [place] Glucose Reference Range is dependent on time and content of last meal. Glucose of more than 200 mg/dL in a nonstressed, ambulatory subject supports the diagnosis of Diabetes Mellitus. PERFORMED BY: [place] [address] PATHOLOGIST COTTON FARMER CORINNE RITTER M.D. Performed By: #### U HEBER, ADDONUAPLUS #### [address] Commemt1 Glu2: Cleaned Meter Normal [facility] Comment on above: Result Comment: PERF ORMED BY: [place] [address] PATHOLOGIST COTTON FARMER CORINNE RITTER M.D. Performed By: #### U RDS, ADDONUAPLUS #### [facility] [address] Glucose [Mass/Vol] 173 mg/dL Normal [facility] Comment on above: Result Comment: [facility] Glucose Reference Range is dependent on time and content of last meal. Glucose of more than 200 mg/dL in a nonstressed, ambulatory subject supports the diagnosis of Diabetes Mellitus. Performed By: #### U RDS, ADDONUAPLUS #### [facility] [address] Hemoglobin A1c/Hemoglobin.to porfirio in BloodOrdered By: Blue Talbot on 01-06-2025 HbA1c (Bld) [Mass fraction] Hemoglobin A1c percentage High 4.3-5.6 [facility] Comment on above: Increased risk for d iabetes: 5.7 - 6.4diabetes: >6.4glycemic control for adults with diabetes: <7.0 LDL Cholesterol Measuredon 0 01-06-2025 LDL Cholesterol Measured 82 mg/dL Normal 0-100 [facility] Comment on above: Result Comment: LDL ATP III CLASSIFICATION LDL less than 100 mg/dL Optimal LDL 100-129 mg/dL Near or above optimal LDL 130-159 mg/dL Borderline high LDL 160-189 mg/dL High LDL greater than 189 mg/dL Very high Performed By: #### U RDS, ADDONUAPLUS #### [facility] [address] [place] [id number] [facility] Lipid Panelon 01-06-2025 Cholesterol [Mass/Vol] 169 mg/dL Normal 140-200 [facility] Comment on above: Result Comment: Chol less than 200 mg/dl low risk Chol 201-239 mg/dl borderline risk Chol 240 mg/dl and greater high risk Performed By: #### U RDS, ADDONUAPLUS #### [facility] [address] [place] [id number] [facility] Cholesterol in HDL [Mass/Vol] 20 mg/dL Low 23-92 [facility] Comment on above: Result Comment: HDL CHOL ATP-III CLASSIFICATION Cardiovascular Risk HDL > or equal to 60 mg/dL LOW HDL < 40 mg/dL HIGH Performed By: #### U HEBER, ADDONUAPLUS #### [facility] [address] Cholesterol.total/Marge sterol in HDL [Mass ratio] 8.5 {ratio} Normal <5.0 [facility] Comment on above: Performed By: #### U HEBER, ADDONUAPLUS #### [facility] [address] LDL Cholesterol,Calculated <10 Normal 0-100 [facility] Comment on above: Result Comment: LDL ATP III CLASSIFICATION LDL less than 100 mg/dL Optimal LDL 100-129 mg/dL Near or above optimal LDL 130-159 mg/dL Borderline high LDL 160-189 mg/dL High LDL greater than 189 mg/dL Very high Performed By: #### U HEBER, ADDONUAPLUS #### [facility] [address] Triglyceride w/Reflex 734 mg/dL High 0-149 [facility] Comment on above: Result [...] be calculated and resulted. Performed By: #### U HEBER, ADDONUAPLUS #### [facility] [address] VLDL CHOLESTEROL Not performed Normal [facility] Comment on above: Performed By: #### U HEBER, ADDONUAPLUS #### [facility] [address] Serum or plasma total choles terol/high density lipoprotein (HDL) cholesterol mass ratOrdered By: Blue Talbot on 01-06-2025 Cholesterol.total/Marge sterol in HDL [Mass ratio] Serum or plasma total cholesterol/high density lipoprotein (HDL) cholesterol mass rat <5.0 [facility] Thyroid Stim Hormone w/Rflxo n 01-06-2025 Thyroid Stim Hormone w/Rflx 6.81 u[iU]/mL High 0.45-5.33 [facility] Comment on above: Performed By: #### U RDS, ADDHOWARDSYLVAIN #### [facility] [address] Thyrotropin [Units/volume] i n Serum or PlasmaOrdered By: Blue Talbot on 01-06-2025 TSH Qn Thyrotropin [Units/volume] in Serum or Plasma High 0.45-5.33 [facility] Thyroxine (T4) free [Mass/vo lume] in Serum or PlasmaOrdered By: Blue Talbot on 01-06-2025 Free T4 [Mass/Vol] Thyroxine (T4) free [Mass/volume] in Serum or Plasma 0.61-1.12 [facility] Triglyceride [Mass/volume] i n Serum or PlasmaOrdered By: Blue Talbot on 01-06-2025 Triglyceride [Mass/Vol] Triglyceride [Mass/volume] in Serum or Plasma High 0-149 [facility] Comment on above: If the triglyceride [...] Hydroxy Total 17.3 ng/mL Low 30-100 [facility] Comment on above: Result Comment: YU MIN D STATUS 25(OH)VITAMIN D RANGE (ng/mL) Deficient <20 Insufficient 20 to <30 Sufficient 30 to 100 Reference: Ashley MF,Jodee BOB, Christina GUEVARA, et al. Evaluation,treatment, and prevention of vitamin D deficiency; an Endocrine Society clinical practice guideline. JCEM. 2010; 96(7):1911-30. PERFORMED BY: [facility] [address] [place] [address] PATHOLOGIST COTTON FARMER CORINNE RITTER M.D. Performed By: #### U RDS, ADDROSAURAUAPLUS #### [facility] [address] Vitamin D+Metabolites [Mass/ volume] in Serum or PlasmaOrdered By: Blue Talbot on 01-06-2025 Vitamin D+Metabolites [Mass/Vol] Vitamin D+Metabolites [Mass/volume] in Serum or Plasma Low 30-100 [facility] Comment on above: VITAMIN D STATUS 25( OH)VITAMIN D RANGE (ng/mL) Deficient <20 Insufficient 20 to <30Sufficient 30 to 100Reference: Ashley MF,Jodee NC, Christina GUEVARA, et al. Evaluation,treatment, and prevention of vitamin D deficiency; an Endocrine Society clinical practice guideline. JCEM. 2010; 96(7):1911-30. Alanine aminotransferase [En zymatic activity/volume] in Serum or PlasmaOrdered By: Guillermina Shetty on 01-05-2025 ALT [Catalytic activity/Vol] Alanine aminotransferase [Enzymatic activity/volume] in Serum or Plasma 7-52 [facility] Albumin [Mass/volume] in Ser um or Plasma by Bromocresol green (BCG) dye binding methoOrdered By: Guillermina Shetty on 01-05-2025 Albumin BCG dye [Mass/Vol] Albumin [Mass/volume] in Serum or Plasma by Bromocresol green (BCG) dye binding metho 3.5-5.7 [facility] Alkaline phosphatase [Enzyma tic activity/volume] in Serum or PlasmaOrdered By: Guillermina Shetty on 01-05-2025 ALP [Catalytic activity/Vol] Alkaline phosphatase [Enzymatic activity/volume] in Serum or Plasma 34-104 [facility] Amphetamine Screen Ql (U)Ord ered By: Guillermina Shetty on 01-05-2025 Amphetamines Ql (U) Amphetamines screen Negativ e [facility] Appearance of UrineOrdered B y: Guillermina Shetty on 01-05-2025 Appearance (U) Urine appearance [facility] Aspartate aminotransferase [ Enzymatic activity/volume] in Serum or PlasmaOrdered By: Guillermina Shetty on 01-05-2025 AST [Catalytic activity/Vol] Aspartate aminotransferase [Enzymatic activity/volume] in Serum or Plasma [facility] Bacteria [Presence] in Urine by AutomatedOrdered By: Guillermina Shetty on 01-05-2025 Bacteria Auto Ql (U) Bacteria [Presence] in Urine by Automated None Seen [facility] Barbiturates [Presence] in U rine by Screen methodOrdered By: Guillermina Shetty on 01-05-2025 Barbiturates Screen Ql (U) Barbiturates [Presence] in Urine by Screen method Negative [facility] Basophils Auto (Bld) [#/Vol] Ordered By: Guillermina Shetty on 01-05-2025 Basophils (Bld) [#/Vol] Automated basoph il count 0.0-0.2 [facility] Basophils/100 WBC Auto (Bld) Ordered By: Guillermina Shetty on 01-05-2025 Basophils/100 WBC (Bld) Automated basophil % . [facility] Benzodiazepines Screen Ql (U )Ordered By: Guillermina Shetty on 01-05-2025 Benzodiazepines Ql (U) Benzodiazepines [Presence] in Urine by Screen method Negative [facility] Benzoylecgonine [Presence] i n Urine by Screen methodOrdered By: Guillermina Shetty on 01-05-2025 Benzoylecgonine Screen Ql (U) Benzoylecgonine [Presence] in Urine by Screen method Negative [facility] Bilirubin Test strip Ql (U)O rdered By: Guillermina Shetty on 01-05-2025 Bilirubin Ql (U) Bilirubin.total [Presence] in Urine by Test strip Negative [facility] Bilirubin.total [Mass/volume ] in Serum or PlasmaOrdered By: Guillermina Shetty on 01-05-2025 Bilirubin [Mass/Vol] Bilirubin.total [Mass/volume] in Serum or Plasma High 0.3-1.0 [facility] Comment on above: Samples from patient s who have taken Naproxen have shown spurious elevation in Total Bilirubin levels. A metabolite of Naproxen, O-desmethylnaproxen, has been shown to interfere with the Iza-Kayleen method for measuring Total Bilirubin. Calcium [Mass/volume] in Ser um or PlasmaOrdered By: Guillermina Shetty on 01-05-2025 Calcium [Mass/Vol] Calcium [Mass/volume ] in Serum or Plasma 8.6-10.3 [facility] Cannabinoids [Presence] in U rine by Screen methodOrdered By: Guillermina Shetty on 01-05-2025 Cannabinoids Screen Ql (U) Cannabinoids [Presence] in Urine by Screen method High Negative [facility] Comment on above: These are unconfirme d [...] l [Moles/volume] in Serum or Plasma 21.0-31.0 [facility] Chloride [Moles/volume] in S emerson or PlasmaOrdered By: Guillermina Shetty on 01-05-2025 Chloride [Moles/Vol] Chloride [Moles/volume] in Serum or Plasma 98-107 [facility] Color Auto (U)Ordered By: Rina Shetty on 01-05-2025 Color (U) Color of Urine by Auto Yellow [facility] Comprehensive Metabolic Pane zoraida 01-05-2025 Albumin [Mass/Vol] 4.8 g/dL Normal 3.5-5.7 [facility] Comment on above: Performed By: #### U HEBER ADDONUAPLUS #### [facility] [address] Albumin/Globulin [Mass ratio] 2.0 {ratio} Normal [facility] Comment on above: Performed By: #### U HEBER ADDONUAPLUS #### [address] ALP [Catalytic activity/Vol] 34 U/L Normal 34-104 [facility] Comment on above: Performed By: #### U HEBER ADDONUAPLUS #### [address] ALT [Catalytic activity/Vol] 13 U/L Normal 7-52 [facility] Comment on above: Performed By: #### U HEBER, ADDONUAPLUS #### [address] Anion gap [Moles/Vol] 10.8 mmol/L Normal 6.0-15.0 [facility] Comment on above: Performed By: #### U HEBER, ADDONUAPLUS #### [address] AST [Catalytic activity/Vol] 17 U/L Normal 13-39 [facility] Comment on above: Performed By: #### U HEBER ADDONUAPLUS #### [address] Bilirubin [Mass/Vol] 1.3 mg/dL High 0.3-1.0 [facility] Comment on above: Result Comment: Samp les from patients who have taken Naproxen have shown spurious elevation in Total Bilirubin levels. A metabolite of Naproxen, O-desmethylnaproxen, has been shown to interfere with the Jendrassik-Grof method for measuring Total Bilirubin. Performed By: #### U HEBER, ADDONUAPLUS #### [address] Calcium [Mass/Vol] 9.5 mg/dL Normal 8.6-10.3 [facility] Comment on above: Performed By: #### U RDS, ADDONUAPLUS #### [place] [address] [place] Chloride [Moles/Vol] 103 mmol/L Normal 98-107 [facility] Comment on above: Performed By: #### U RDS, ADDONUAPLUS #### [place] [address] [place] CO2 [Moles/Vol] 29.4 mmol/L Normal 21.0-31.0 [facility] Comment on above: Performed By: #### U RDS, ADDONUAPLUS #### [address] Creatinine [Mass/Vol] 1.05 mg/dL Normal 0.70-1.30 [facility] Comment on above: Performed By: #### U RDS, ADDONUAPLUS #### [address] Creatinine Clr Calc Pharmacy 130.37 Normal [facility] Comment on above: Result Comment: PERF ORMED BY: [place] [address] PATHOLOGIST COTTON FARMER CORINNE RITTER M.D. Performed By: #### U RDS, ADDONUAPLUS #### [address] GFR/1.73 sq M.predicted MDRD (S/P/Bld) [Vol rate/Area] mL/min/{1.73_m2} Normal [facility] Comment on above: Performed By: #### U RDS, ADDONUAPLUS #### [address] Globulin (S) [Mass/Vol] 2.4 g/dL Normal [facility] Comment on above: Performed By: #### U RDS, ADDONUAPLUS #### [address] Glucose [Mass/Vol] 185 mg/dL High 70-100 [facility] Comment on above: Result Comment: [place] Glucose Reference Range is dependent on time and content of last meal. Glucose of more than 200 mg/dL in a nonstressed, ambulatory subject supports the diagnosis of Diabetes Mellitus. ADA recommended reference range Performed By: #### U RDS, ADDONUAPLUS #### [address] Potassium [Moles/Vol] 4.2 mmol/L Normal 3.5-5.1 [facility] Comment on above: Performed By: #### U RDS, ADDONUAPLUS #### [address] Protein [Mass/Vol] 7.2 g/dL Normal 6.4-8.9 [facility] Comment on above: Performed By: #### U RDS, ADDONUAPLUS #### [facility] [address] [place] [address] [place] Sodium [Moles/Vol] 139 mmol/L Normal 136-145 [facility] Comment on above: Performed By: #### U RDS, ADDONUAPLUS #### [facility] [address] [place] [address] [place] Urea nitrogen [Mass/Vol] 16 mg/dL Normal 7-25 [facility] Comment on above: Performed By: #### U RDS, ADDONUAPLUS #### [place] [address] [place] Creatinine [Mass/volume] in Serum or PlasmaOrdered By: Guillermina Shetty on 01-05-2025 Creatinine [Mass/Vol] Creatinine [Mass/volume] in Serum or Plasma 0.70-1.30 [facility] Dipstick and Microscopicon 0 01-05-2025 Appearance (U) Clear Normal Clear [facility] Comment on above: Order Comment: Name Collection Type:: Clean-Voided Midstream Performed By: #### U RDS, ADDONUAPLUS #### [place] [address] [place] Bacteria,Urine None Seen Normal None Seen [facility] Comment on above: Order Comment: Name Collection Type:: Clean-Voided Midstream Performed By: #### U RDS, ADDONUAPLUS #### [place] [address] [place] Bilirubin,Urine Negative Normal Negative [facility] Comment on above: Order Comment: Name Collection Type:: Clean-Voided Midstream Performed By: #### U RDS, ADDONUAPLUS #### [place] [address] [place] Color (U) Yellow Normal Yellow [facility] Comment on above: Order Comment: Name Collection Type:: Clean-Voided Midstream Performed By: #### U RDS, ADDONUAPLUS #### [place] [id number] [place] Glucose Ql (U) Normal Normal Normal [facility] Comment on above: Order Comment: Name Collection Type:: Clean-Voided Midstream Performed By: #### U RDS, ADDONUAPLUS #### [place] [address] [place] Hyaline Casts,Urine None Normal 0-8 [facility] Comment on above: Order Comment: Name Collection Type:: Clean-Voided Midstream Performed By: #### U RDS, ADDONUAPLUS #### [address] Ketones Ql (U) Negative Normal Negative [facility] Comment on above: Order Comment: Name Collection Type:: Clean-Voided Midstream Performed By: #### U RDS, ADDONUAPLUS #### [address] Leukocyte esterase Test strip Ql (U) Negative Normal Negative [facility] Comment on above: Order Comment: Name Collection Type:: Clean-Voided Midstream Performed By: #### U RDS, ADDONUAPLUS #### [place] [address] [place] Mucus,Urine 2+ Critically abnormal [facility] Comment on above: Order Comment: Name Collection Type:: Clean-Voided Midstream Result Comment: PERF ORMED BY: [place] [address] PATHOLOGIST [employer] CORINNE RITTER M.D. Performed By: #### U RDS, ADDONUAPLUS #### [place] [address] [place] Nitrite,Urine Negative Normal Negative [facility] Comment on above: Order Comment: Name Collection Type:: Clean-Voided Midstream Performed By: #### U RDS, ADDONUAPLUS #### [place] [address] [place] Occult Blood,Urine Negative Normal Negative [facility] Comment on above: Order Comment: Name Collection Type:: Clean-Voided Midstream Result Comment: PERF ORMED BY: [place] [address] PATHOLOGIST [employer] CORINNE RITTER M.D. Performed By: #### U RDS, ADDONUAPLUS #### [address] pH (U) 6.0 [pH] Normal 5.0-9.0 [facility] Comment on above: Order Comment: Name Collection Type:: Clean-Voided Midstream Performed By: #### U RDS, ADDONUAPLUS #### [address] Protein (U) [Mass/Vol] 20 mg/dL High Negative [facility] Comment on above: Order Comment: Name Collection Type:: Clean-Voided Midstream Performed By: #### U RDS, ADDONUAPLUS #### [address] RBC,Urine 1-2 Normal 0-4 [facility] Comment on above: Order Comment: Name Collection Type:: Clean-Voided Midstream Performed By: #### U RDS, ADDONUAPLUS #### [address] Specificy [place],Urine 1.026 Normal 1.001-1.030 [facility] Comment on above: Order Comment: Name Collection Type:: Clean-Voided Midstream Performed By: #### U RDS, ADDONUAPLUS #### [address] Squamous Epithelial Cell,Urine 1-2 Normal 0-2 [facility] Comment on above: Order Comment: Name Collection Type:: Clean-Voided Midstream Performed By: #### U RDS, ADDONUAPLUS #### [place] [address] [place] Urobilinogen,Urine Normal Normal Normal [facility] Comment on above: Order Comment: Name Collection Type:: Clean-Voided Midstream Performed By: #### U RDS, ADDONUAPLUS #### [place] [address] [place] WBC,Urine 1-2 Normal 0-4 [facility] Comment on above: Order Comment: Name Collection Type:: Clean-Voided Midstream Performed By: #### U RDS, ADDONUAPLUS #### [place] [address] [place] Drug Screen,Urineon 01-06-20 25 Amphetamine Screen,Urine Negative Normal Negative [facility] Comment on above: Performed By: #### U RDS, ADDONUAPLUS #### [address] Barbiturate Screen,Urine Negative Normal Negative [facility] Comment on above: Performed By: #### U RDS, ADDONUAPLUS #### [place] [address] [place] Benzodiazepines Screen,Urine Negative Normal Negative [facility] Comment on above: Performed By: #### U RDS, ADDONUAPLUS #### [address] Cannabinoid Screen,Urine Positive High Negative [facility] Comment on above: Result Comment: Thes e are unconfirmed results and should not be used for legal purposes. Drug Cut-Off Concentration: AMPH 1000 ng/mL KATHLEEN 200 ng/mL CARMEN 200 ng/mL COCM 300 ng/mL OP 300 ng/mL PCP 25 ng/mL THC 20 ng/mL PERFORMED BY: [place] [address] PATHOLOGIST [employer] CORINNE RITTER M.D. Performed By: #### U RDS, ADDONUAPLUS #### [place] [address] [place] Cocaine Screen,Urine Negative Normal Negative [facility] Comment on above: Performed By: #### U RDS, ADDONUAPLUS #### [place] [address] [place] Opiate Screen,Urine Negative Normal Negative [facility] Comment on above: Performed By: #### U RDS, ADDONUAPLUS #### [place] [address] [place] Phencyclidine Screen,Urine Negative Normal Negative [facility] Comment on above: Performed By: #### U RDS, ADDONUAPLUS #### [facility] [address] [place] [address] [place] Eosinophils Auto (Bld) [#/Vo l]Ordered By: Guillermina Shetty on 01-05-2025 Eosinophils (Bld) [#/Vol] Automated eosinophil count 0.0-0.45 [facility] Eosinophils/100 WBC Auto (Bl d)Ordered By: Guillermina Shetty on 01-05-2025 Eosinophils/100 WBC (Bld) Automated eosinophil % . [facility] Epithelial cells.squamous [# /area] in Urine sediment by Automated countOrdered By: Guillermina Shetty on 01-05-2025 Epithelial cells.squamous Auto (Urine sed) [#/Area] Epithelial cells.squamous [#/area] in Urine sediment by Automated count 0-2 [facility] Erythrocyte distribution wid th Auto (RBC) [Ratio]Ordered By: Guillermina Shetty on 01-05-2025 Erythrocyte distribution width (RBC) [Ratio] Erythrocyte distribution width [Ratio] by Automated count 12.0-14.8 [facility] Erythrocyte morphology findi ng [Identifier] in BloodOrdered By: Guillermina Shetty on 01-05-2025 RBC morphology finding Nom (Bld) RBC morphology Normal [facility] Erythrocytes [#/area] in Uri ne sediment by Automated countOrdered By: Guillermina Shetty on 01-05-2025 RBC Auto (Urine sed) [#/Area] Erythrocytes [#/area] in Urine sediment by Automated count 0-4 [facility] Ethanol [Mass/volume] in Ser um or PlasmaOrdered By: Guillermina Shetty on 01-05-2025 Ethanol [Mass/Vol] Ethanol [Mass/volume ] in Serum or Plasma [facility] Comment on above: Test not performed Ethyl Alcohol Profileon 12-24 Ethanol [Mass/Vol] mg/dL Normal [facility] Comment on above: Performed By: #### U HEBER, ADDONUAPLUS #### [facility] [address] Percent Ethanol Not performed Normal [facility] Comment on above: Result Comment: PERF ORMED BY: [place] [address] PATHOLOGIST [employer] CORINNE RITTER M.D. Performed By: #### U HEBER ADDONUAPLUS #### [address] Globulin Calc (S) [Mass/Vol] Ordered By: Guillermina Shetty on 01-05-2025 Globulin (S) [Mass/Vol] Serum globulin measurement by calculation (mass/volume) [facility] Glucose Glucometer (BldC) [M ass/Vol]Ordered By: Guillermina Shetty on 01-05-2025 Glucose [Mass/Vol] Capillary blood glucose measurement by glucometer (mass/volume) [facility] Comment on above: Random Glucose Refer ence Range is dependent on time and content of last meal. Glucose of more than 200 mg/dL in a nonstressed, ambulatory subject supports the diagnosis of Diabetes Mellitus. Glucose Poct Glucometerson 0 01-05-2025 Commemt1 Glu2: Cleaned Meter Normal [facility] Comment on above: Result Comment: PERF ORMED BY: [place] [address] PATHOLOGIST [employer] CORINNE RITTER M.D. Performed By: #### U HEBER ADDONUAPLUS #### [address] Glucose [Mass/Vol] 185 mg/dL Normal [facility] Comment on above: Result Comment: [place] Glucose Reference Range is dependent on time and content of last meal. Glucose of more than 200 mg/dL in a nonstressed, ambulatory subject supports the diagnosis of Diabetes Mellitus. Performed By: #### U HEBER, ADDONUAPLUS #### [facility] [address] [place] [address] Glucose [Mass/Vol] 143 mg/dL Normal [facility] Comment on above: Result Comment: [place] Glucose Reference Range is dependent on time and content of last meal. Glucose of more than 200 mg/dL in a nonstressed, ambulatory subject supports the diagnosis of Diabetes Mellitus. PERFORMED BY: [place] [address] PATHOLOGIST [employer] CORINNE RITTER M.D. Performed By: #### U ADRIANA BUCK #### [facility] [address] Glucose [Mass/volume] in Ser um or PlasmaOrdered By: Guillermina Shetty on 01-05-2025 Glucose [Mass/Vol] Glucose [Mass/volume ] in Serum or Plasma High 70-100 [facility] Comment on above: ADA recommended refe rence rangeRandom Glucose Reference Range is dependent on time and content of last meal. Glucose of more than 200 mg/dL in a nonstressed, ambulatory subject supports the diagnosis of Diabetes Mellitus. Glucose [Mass/volume] in Uri ne by Test stripOrdered By: Guillermina Shetty on 01-05-2025 Glucose Test strip (U) [Mass/Vol] Glucose [Mass/volume] in Urine by Test strip Normal [facility] Hematocrit Auto (Bld) [Volum e fraction]Ordered By: Guillermina Shetty on 01-05-2025 Hematocrit (Bld) [Volume fraction] Hematocrit [Volume Fraction] of Blood by Automated count 38.8-50.0 [facility] Hemoglobin Test strip Ql (U) Ordered By: Guillermina Shetty on 01-05-2025 Hemoglobin Ql (U) Hemoglobin [Presence ] in Urine by Test strip Negative [facility] Hemoglobin [Mass/volume] in BloodOrdered By: Guillermina Shetty on 01-05-2025 Hemoglobin (Bld) [Mass/Vol] Hemoglobin [Mass/volume] in Blood 13.0-17.0 [facility] Hyaline casts [#/area] in Ur ine sediment by Automated countOrdered By: Guillermina Shetty on 01-05-2025 Hyaline casts Auto (Urine sed) [#/Area] Hyaline casts [#/area] in Urine sediment by Automated count 0-8 [facility] Ketones Test strip Ql (U)Ord ered By: Guillermina Shetty on 01-05-2025 Ketones Ql (U) Ketones [Presence] i n Urine by Test strip Negative [facility] Leukocyte esterase [Presence ] in Urine by Test stripOrdered By: Guillermina Shetty on 01-05-2025 Leukocyte esterase Test strip Ql (U) Leukocyte esterase [Presence] in Urine by Test strip Negative [facility] Leukocytes [#/area] in Urine sediment by Automated countOrdered By: Guillermina Shetty on 01-05-2025 WBC Auto (Urine sed) [#/Area] Leukocytes [#/area] in Urine sediment by Automated count 0-4 [facility] Leukocytes [#/volume] correc naresh for nucleated erythrocytes in Blood by Automated counOrdered By: Guillermina Shetty on 01-05-2025 WBC corrected for nucl RBC Auto (Bld) [#/Vol] Leukocytes [#/volume] corrected for nucleated erythrocytes in Blood by Automated coun 4.1-10.5 [facility] Lymphocytes Auto (Bld) [#/Vo l]Ordered By: Guillermina Shetty on 01-05-2025 Lymphocytes (Bld) [#/Vol] Lymphocytes [#/volume] in Blood by Automated count 1.00-4.8 [facility] Lymphocytes/100 WBC Auto (Bl d)Ordered By: Guillermina Shetty on 01-05-2025 Lymphocytes/100 WBC (Bld) Lymphocytes/100 leukocytes in Blood by Automated count . [facility] MCH Auto (RBC) [Entitic mass ]Ordered By: Guillermina Shetty on 01-05-2025 MCH (RBC) [Entitic mass] MCH [Entitic mass] by Automated count 27.5-35.2 [facility] MCHC Auto (RBC) [Mass/Vol]Or dered By: Guillermina Shetty on 01-05-2025 MCHC (RBC) [Mass/Vol] MCHC [Mass/volume] by Automated count 32.5-35.6 [facility] MCV Auto (RBC) [Entitic vol] Ordered By: Guillermina Shetty on 01-05-2025 MCV (RBC) [Entitic vol] MCV [Entitic vol ume] by Automated count 83.5-101 [facility] Monocyte distribution width [Entitic volume] in Blood by AutomatedOrdered By: Guillermina Shetty on 01-05-2025 Monocyte distribution width Auto (Bld) [Entitic vol] Monocyte distribution width [Entitic volume] in Blood by Automated 0.00-20.00 [facility] Monocytes Auto (Bld) [#/Vol] Ordered By: Guillermina Shtety on 01-05-2025 Monocytes (Bld) [#/Vol] Automated blood monocyte count 0.0-0.8 [facility] Monocytes/100 WBC Auto (Bld) Ordered By: Guillermina Shetty on 01-05-2025 Monocytes/100 WBC (Bld) Automated monocyte % . [facility] Mucus [Presence] in Urine by AutomatedOrdered By: Guillermina Shetty on 01-05-2025 Mucus Auto Ql (U) Mucus [Presence] in Urine by Automated Abnormal [facility] Neutrophils Auto (Bld) [#/Vo l]Ordered By: Guillermina Shetty on 01-05-2025 Neutrophils (Bld) [#/Vol] Neutrophils [#/volume] in Blood by Automated count 1.8-7.7 [facility] Neutrophils/100 WBC Auto (Bl d)Ordered By: Guillermina Shetty on 01-05-2025 Neutrophils/100 WBC (Bld) Automated neutrophil % . [facility] Nitrite Test strip Ql (U)Ord ered By: Guillermina Shetty on 01-05-2025 Nitrite Ql (U) Nitrite [Presence] i n Urine by Test strip Negative [facility] No Panel InformationOrdered By: Guillermina Shetty on 01-05-2025 Estimated GFR (CKD-EPI) > 60.0 mL/Min [facility] Creatinine Clearance (Chem 130.37 [facility] Nucleated erythrocytes [Pres ence] in Blood by Automated countOrdered By: Guillermina Shetty on 01-05-2025 Nucleated RBC Auto Ql (Bld) Nucleated erythrocytes [Presence] in Blood by Automated count 0-0.5 [facility] Opiates [Presence] in Urine by Screen methodOrdered By: Guillermina Shetty on 01-05-2025 Opiates Screen Ql (U) Opiates [Presence] in Urine by Screen method Negative [facility] Phencyclidine Screen Ql (U)O rdered By: Guillermina Shetty on 01-05-2025 Phencyclidine Ql (U) Phencyclidine [Presence] in Urine by Screen method Negative [facility] Platelet adequacy [Presence] in Blood by Light microscopyOrdered By: Guillermina Shetty on 01-05-2025 Platelets LM Ql (Bld) Platelet adequacy [Presence] in Blood by Light microscopy Normal [facility] Platelet mean volume Auto (B ld) [Entitic vol]Ordered By: Guillermina Shetty on 01-05-2025 Platelet mean volume (Bld) [Entitic vol] Platelet mean volume [Entitic volume] in Blood by Automated count 6.6-10.1 [facility] Platelet morphology finding [Identifier] in BloodOrdered By: Guillermina Shetty on 01-05-2025 Platelet morphology finding Nom (Bld) Platelet morphology finding [Identifier] in Blood Normal [facility] Platelets Auto (Bld) [#/Vol] Ordered By: Guillermina Shetty on 01-05-2025 Platelets (Bld) [#/Vol] Platelets [#/vol ume] in Blood by Automated count 150-450 [facility] Potassium [Moles/volume] in Serum or PlasmaOrdered By: Guillermina Shetty on 01-05-2025 Potassium [Moles/Vol] Potassium [Moles/volume] in Serum or Plasma 3.5-5.1 [facility] Protein Test strip (U) [Mass /Vol]Ordered By: Guillermina Shetty on 01-05-2025 Protein (U) [Mass/Vol] Protein [Mass/vol ume] in Urine by Test strip High Negative [facility] Protein [Mass/volume] in Ser um or PlasmaOrdered By: Guillermina Shetty on 01-05-2025 Protein [Mass/Vol] Protein [Mass/volume ] in Serum or Plasma 6.4-8.9 [facility] RBC Auto (Bld) [#/Vol]Ordere d By: Guillermina Shetty on 01-05-2025 RBC (Bld) [#/Vol] Erythrocytes [#/volume] in Blood by Automated count 3.90-5.60 [facility] Scan and CBCon 01-05-2025 Basophils (Bld) [#/Vol] 0.0 10*3/uL Normal 0.0-0.2 [facility] Comment on above: Performed By: #### U HEBER, RENETTAUAPLUS #### [facility] [address] [place] [address] [place] Basophils/100 WBC (Bld) 0.6 % Normal . [facility] Comment on above: Performed By: #### U RDS, ADDONUAPLUS #### [address] Eosinophils (Bld) [#/Vol] 0.1 10*3/uL Normal 0.0-0.45 [facility] Comment on above: Performed By: #### U RDS, ADDONUAPLUS #### [place] [address] [place] Eosinophils/100 WBC (Bld) 0.8 % Normal . [facility] Comment on above: Performed By: #### U RDS, ADDONUAPLUS #### [address] Erythrocyte distribution width (RBC) [Ratio] 13.9 % Normal 12.0-14.8 [facility] Comment on above: Performed By: #### U RDS, ADDONUAPLUS #### [address] Hematocrit (Bld) [Volume fraction] 47.3 % Normal 38.8-50.0 [facility] Comment on above: Performed By: #### U RDS, ADDONUAPLUS #### [place] [address] [place] Hemoglobin (Bld) [Mass/Vol] 16.8 g/dL Normal 13.0-17.0 [facility] Comment on above: Performed By: #### U RDS, ADDONUAPLUS #### [place] [address] [place] Lymphocytes (Bld) [#/Vol] 1.9 10*3/uL Normal 1.00-4.8 [facility] Comment on above: Performed By: #### U RDS, ADDONUAPLUS #### [place] [id number] [place] Lymphocytes/100 WBC (Bld) 24.7 % Normal . [facility] Comment on above: Performed By: #### U RDS, ADDONUAPLUS #### [address] MCH (RBC) [Entitic mass] 31.2 pg Normal 27.5-35.2 [facility] Comment on above: Performed By: #### U RDS, ADDONUAPLUS #### [address] MCV (RBC) [Entitic vol] 87.7 fL Normal 83.5-101 [facility] Comment on above: Performed By: #### U RDS, ADDONUAPLUS #### [address] Mean Corpuscular HGB Conc 35.6 g/dL Normal 32.5-35.6 [facility] Comment on above: Performed By: #### U RDS, ADDONUAPLUS #### [address] Monocytes (Bld) [#/Vol] 0.5 10*3/uL Normal 0.0-0.8 [facility] Comment on above: Performed By: #### U RDS, ADDONUAPLUS #### [address] Monocytes/100 WBC (Bld) 16.04 % Normal 0.00-20.00 [facility] Comment on above: Performed By: #### U RDS, ADDONUAPLUS #### [address] Monocytes/100 WBC (Bld) 5.7 % Normal . [facility] Comment on above: Performed By: #### U RDS, ADDONUAPLUS #### [place] [address] [place] Neutrophils (Bld) [#/Vol] 5.4 10*3/uL Normal 1.8-7.7 [facility] Comment on above: Performed By: #### U RDS, ADDONUAPLUS #### [place] [address] [place] Neutrophils/100 WBC (Bld) 68.2 % Normal . [facility] Comment on above: Performed By: #### U RDS, ADDONUAPLUS #### [address] NRBC% 0.2 /100{WBC} Normal 0-0.5 [facility] Comment on above: Performed By: #### U RDS, ADDONUAPLUS #### [address] Platelet Estimate Normal Normal Normal [facility] Comment on above: Performed By: #### U RDS, ADDONUAPLUS #### [address] Platelet mean volume (Bld) [Entitic vol] 8.1 fL Normal 6.6-10.1 [facility] Comment on above: Performed By: #### U RDS, ADDONUAPLUS #### [address] Platelet Morphology Normal Normal Normal [facility] Comment on above: Result Comment: PERF ORMED BY: [place] [address] PATHOLOGIST [employer] CORINNE RITTER M.D. Performed By: #### U RDS, ADDONUAPLUS #### [address] Platelets (Bld) [#/Vol] 159 10*3/uL Normal 150-450 [facility] Comment on above: Performed By: #### U RDS, ADDONUAPLUS #### [address] RBC (Bld) [#/Vol] 5.40 10*6/uL Normal 3.90-5.60 [facility] Comment on above: Performed By: #### U RDS, ADDONUAPLUS #### [address] RBC morphology finding Nom (Bld) Normal Normal Normal [facility] Comment on above: Performed By: #### U RDS, ADDONUAPLUS #### [facility] [address] WBC (Bld) [#/Vol] 7.9 10*3/uL Normal 4.1-10.5 [facility] Comment on above: Performed By: #### U ADRIANA BUCK #### [facility] [address] Serum or plasma albumin/glob ulin mass ratioOrdered By: Guillermina Shetty on 01-05-2025 Albumin/Globulin [Mass ratio] Serum or plasma albumin/globulin mass ratio [facility] Serum or plasma anion gap de terminationOrdered By: Guillermina Shetty on 01-05-2025 Anion gap [Moles/Vol] Serum or plasma an ion gap determination 6.0-15.0 [facility] Sodium [Moles/volume] in Ser um or PlasmaOrdered By: Guillermina Shetty on 01-05-2025 Sodium [Moles/Vol] Sodium [Moles/volume ] in Serum or Plasma 136-145 [facility] Specific gravity Test strip (U) [Rel density]Ordered By: Guillermina Shetty on 01-05-2025 Specific gravity (U) [Rel density] Specific gravity of Urine by Test strip 1.001-1.030 [facility] Urea nitrogen [Mass/volume] in Serum or PlasmaOrdered By: Guillermina Shetty on 01-05-2025 Urea nitrogen [Mass/Vol] Urea nitrogen [Mass/volume] in Serum or Plasma 7-25 [facility] Urobilinogen Test strip (U) [Mass/Vol]Ordered By: Guillermina Shetty on 01-05-2025 Urobilinogen (U) [Mass/Vol] Urobilinogen [Mass/volume] in Urine by Test strip Normal [facility] WBC Auto (Bld) [#/Vol]Ordere d By: Guillermina Shetty on 01-05-2025 WBC (Bld) [#/Vol] Leukocytes [#/volume ] in Blood by Automated count 4.1-10.5 [facility] pH Test strip (U)Ordered By: Guillermina Shetty on 01-05-2025 pH (U) pH of Urine by Test strip 5.0-9.0 [facility] Capillary blood glucose sarah urement by glucometer (mass/volume)Ordered By: Blue Talbot on 08-04-2024 Glucose [Mass/Vol] 329 mg/dL Normal [facility] Comment on above: Random Glucose Refer ence Range is dependent on time and content of last meal. Glucose of more than 200 mg/dL in a nonstressed, ambulatory subject supports the diagnosis of Diabetes Mellitus. Result Comment: [place] Glucose Reference Range is dependent on time and content of last meal. Glucose of more than 200 mg/dL in a nonstressed, ambulatory subject supports the diagnosis of Diabetes Mellitus. PERFORMED BY: [address] [place] [address] PATHOLOGIST COTTON FARMER BEKAH FREED M.D. Performed By: #### G LULS #### Point of Care testing , Glucose Poct Glucometerson 1 Commemt1 Glu2: Cleaned Meter Normal [facility] Comment on above: Result Comment: PERF ORMED BY: [facility] [address] [place] [address] PATHOLOGIST COTTON FARMER BEKAH FREED M.D. Performed By: #### G LULS #### Point of Care testing , Glucose [Mass/Vol] 336 mg/dL Normal [facility] Comment on above: Result Comment: [place] om Glucose Reference Range is dependent on time and content of last meal. Glucose of more than 200 mg/dL in a nonstressed, ambulatory subject supports the diagnosis of Diabetes Mellitus. Performed By: #### G LULS #### Point of Care testing , Glucose [Mass/Vol] 261 mg/dL Normal [facility] Comment on above: Result Comment: [place] Glucose Reference Range is dependent on time and content of last meal. Glucose of more than 200 mg/dL in a nonstressed, ambulatory subject supports the diagnosis of Diabetes Mellitus. PERFORMED BY: [facility] [address] [place] [address] PATHOLOGIST COTTON FARMER BEKAH FREED M.D. Performed By: #### G LULS #### Point of Care testing , No Panel InformationOrdered By: Blue Talbot on 08-04-2024 Bedside Glucose Comment Glu2: cleaned meter [facility] Glucose Poct Glucometerson 1 Commemt1 Glu2: Cleaned Meter Normal [facility] Comment on above: Result Comment: PERF ORMED BY: [address] [place] [address] PATHOLOGIST COTTON FARMER BEKAH FREED M.D. Performed By: #### G LULS #### Point of Care testing , Glucose [Mass/Vol] 337 mg/dL Normal [facility] Comment on above: Result Comment: [place] Glucose Reference Range is dependent on time and content of last meal. Glucose of more than 200 mg/dL in a nonstressed, ambulatory subject supports the diagnosis of Diabetes Mellitus. Performed By: #### G LULS #### Point of Care testing , Commemt1 Glu2: Cleaned Meter Normal [facility] Comment on above: Result Comment: PERF ORMED BY: [facility] [address] [facility] [facility]. [place] [id number] PATHOLOGIST COTTON FARMER BEKAH FREED M.D. Performed By: #### G LULS #### Point of Care testing , Glucose [Mass/Vol] 307 mg/dL Normal [facility] Comment on above: Result Comment: [place] Glucose Reference Range is dependent on time and content of last meal. Glucose of more than 200 mg/dL in a nonstressed, ambulatory subject supports the diagnosis of Diabetes Mellitus. Performed By: #### G LULS #### Point of Care testing , Commemt1 Glu2: Cleaned Meter Normal [facility] Comment on above: Result Comment: PERF ORMED BY: [facility] [address] [place] [id number] PATHOLOGIST COTTON FARMER BEKAH FREED M.D. Performed By: #### G LULS #### Point of Care testing , Glucose [Mass/Vol] 385 mg/dL Normal [facility] Comment on above: Result Comment: [place] Glucose Reference Range is dependent on time and content of last meal. Glucose of more than 200 mg/dL in a nonstressed, ambulatory subject supports the diagnosis of Diabetes Mellitus. Performed By: #### G LULS #### Point of Care testing , Commemt1 Glu2: Cleaned Meter Normal [facility] Comment on above: Result Comment: PERF ORMED BY: [place] [address] PATHOLOGIST COTTON FARMER BEKAH FREED M.D. Performed By: #### G LULS #### Point of Care testing , Glucose [Mass/Vol] 232 mg/dL Normal [facility] Comment on above: Result Comment: [place] Glucose Reference Range is dependent on time and content of last meal. Glucose of more than 200 mg/dL in a nonstressed, ambulatory subject supports the diagnosis of Diabetes Mellitus. Performed By: #### G LULS #### Point of Care testing , XR lumbar spine 2-3V*on XR lumbar spine 2-3V* [facility] Main [place] [id number] XRay Report Signed Patient: Tracie Ramirez MR#: [id number] : 2000 Acct:[id number] Age/Sex: 24 / M ADM Date: 08/01/24 Loc: Room: [address] [place] [address] Type: ADM IN Attending Dr: Blue Talbot [...] 8:36 PM Dictation Location: RADIO-PC-13 Transcribed By: [facility] 08/03/242035 Dictated By: Tristan Bruno II, MD 08/03/242032 Signed By: 08/03/242035 Normal [facility] XR thoracic spine 2Von 08-03 XR thoracic spine 2V [facility] [place] [address] XRay Report Signed Patient: Tracie Ramirez MR#: [id number] : 2000 Acct:[id number] Age/Sex: 24 / M ADM Date: 08/01/24 Loc: Room: [address] [place] [address] Type: ADM IN Attending Dr: Blue Talbot [...] 8:33 PM Dictation Location: RADIO-PC-13 Transcribed By: [facility] 08/03/242032 Dictated By: Tristan Bruno II, MD 08/03/242030 Signed By: 08/03/242032 Normal [facility] Cholesterol [Mass/volume] in Serum or PlasmaOrdered By: Blue Talbot on 08-02-2024 Cholesterol [Mass/Vol] 149 mg/dL Normal 140-200 [facility] Comment on above: Chol less than 200 m g/dl low riskChol 201-239 mg/dl borderline riskChol 240 mg/dl and greater high risk Result Comment: Chol less than 200 mg/dl low risk Chol 201-239 mg/dl borderline risk Chol 240 mg/dl and greater high risk Performed By: #### G LULS #### Point of Care testing , Cholesterol in LDL Calc [Mas s/Vol]Ordered By: Blue Talbot on 08-02-2024 Cholesterol in LDL [Mass/Vol] TNP [facility] Comment on above: Test not performed Cholesterol in LDL [Mass/vol ume] in Serum or PlasmaOrdered By: Blue Talbot on 08-02-2024 Cholesterol in LDL [Mass/Vol] 58 mg/dL 0-100 [facility] Comment on above: LDL ATP III CLASSIFI CATIONLDL less than 100 mg/dL OptimalLDL 100-129 mg/dL Near or above optimalLDL 130-159 mg/dL Borderline highLDL 160-189 mg/dL HighLDL greater than 189 mg/dL Very high Cholesterol in VLDL Calc [Ma ss/Vol]Ordered By: Blue Talbot on 08-02-2024 Cholesterol in VLDL [Mass/Vol] 113 mg/dL [facility] Glucose Poct Glucometerson 1 Glucose [Mass/Vol] 353 mg/dL Normal [facility] Comment on above: Result Comment: [place] Glucose Reference Range is dependent on time and content of last meal. Glucose of more than 200 mg/dL in a nonstressed, ambulatory subject supports the diagnosis of Diabetes Mellitus. PERFORMED BY: [facility] [address] [place] [address] PATHOLOGIST COTTON FARMER BEKAH FREED M.D. Performed By: #### G LULS #### Point of Care testing , Glucose [Mass/Vol] 281 mg/dL Normal [facility] Comment on above: Result Comment: [place] Glucose Reference Range is dependent on time and content of last meal. Glucose of more than 200 mg/dL in a nonstressed, ambulatory subject supports the diagnosis of Diabetes Mellitus. PERFORMED BY: [place] [address] PATHOLOGIST COTTON FARMER BEKAH FREED M.D. Performed By: #### U HEBER, ADDONUAPLUS #### [address] Commemt1 Glu2: Cleaned Meter Normal [facility] Comment on above: Result Comment: PERF ORMED BY: [place] [address] PATHOLOGIST COTTON FARMER BEKAH FREED M.D. Performed By: #### U HEBER, ADDONUAPLUS #### [address] Glucose [Mass/Vol] 296 mg/dL Normal [facility] Comment on above: Result Comment: [place] Glucose Reference Range is dependent on time and content of last meal. Glucose of more than 200 mg/dL in a nonstressed, ambulatory subject supports the diagnosis of Diabetes Mellitus. Performed By: #### U HEBER, ADDONUAPLUS #### [address] Glucose [Mass/Vol] 277 mg/dL Normal [facility] Comment on above: Result Comment: [place] Glucose Reference Range is dependent on time and content of last meal. Glucose of more than 200 mg/dL in a nonstressed, ambulatory subject supports the diagnosis of Diabetes Mellitus. PERFORMED BY: [place] [address] PATHOLOGIST COTTON FARMER BEKAH FREED M.D. Performed By: #### U HEBER, ADDONUAPLUS #### [place] [id number] [facility] LDL Cholesterol Measuredon 0- LDL Cholesterol Measured 58 mg/dL Normal 0-100 [facility] Comment on above: Result Comment: LDL ATP III CLASSIFICATION LDL less than 100 mg/dL Optimal LDL 100-129 mg/dL Near or above optimal LDL 130-159 mg/dL Borderline high LDL 160-189 mg/dL High LDL greater than 189 mg/dL Very high Performed By: #### G LULS #### Point of Care testing , Lipid Panelon 08-02-2024 LDL Cholesterol,Calculated Not performed Normal 0-100 [facility] Comment on above: Performed By: #### G LULS #### Point of Care testing , Triglyceride w/Reflex 569 mg/dL High 0-149 [facility] Comment on above: Result [...] be calculated and resulted. Performed By: #### G LULS #### Point of Care testing , VLDL CHOLESTEROL 113 mg/dL Normal [facility] Comment on above: Performed By: #### G BARBARALS #### Point of Care testing , Serum or plasma high density lipoprotein (HDL) cholesterol measurementOrdered By: Blue Talbot on 08-02-2024 Cholesterol in HDL [Mass/Vol] 22 mg/dL Low 23-92 [facility] Comment on above: HDL CHOL ATP-III CLA SSIFICATION Cardiovascular RiskHDL > or equal to 60 mg/dL LOWHDL < 40 mg/dL HIGH Result Comment: HDL CHOL ATP-III CLASSIFICATION Cardiovascular Risk HDL > or equal to 60 mg/dL LOW HDL < 40 mg/dL HIGH Performed By: #### G LULS #### Point of Care testing , Serum or plasma total choles terol/high density lipoprotein (HDL) cholesterol mass ratOrdered By: Blue Talbot on 08-02-2024 Cholesterol.total/Marge sterol in HDL [Mass ratio] 6.8 {ratio} Normal <5.0 [facility] Comment on above: Performed By: #### G LULS #### Point of Care testing , Thyroid Stim Hormone w/Rflxo n 08-02-2024 Thyroid Stim Hormone w/Rflx 2.94 u[iU]/mL Normal 0.45-5.33 [facility] Comment on above: Performed By: #### G LULS #### Point of Care testing , Thyrotropin [Units/volume] i n Serum or PlasmaOrdered By: Blue Talbot on 08-02-2024 TSH Qn 2.94 m[IU]/L 0.45-5.33 [facility] Triglyceride [Mass/volume] i n Serum or PlasmaOrdered By: Blue Talbot on 08-02-2024 Triglyceride [Mass/Vol] 569 mg/dL High 0-[address] [facility] Comment on above: If the triglyceride [...] Hydroxy Total 31.4 ng/mL Normal 30-100 [facility] Comment on above: Result Comment: YU MIN D STATUS 25(OH)VITAMIN D RANGE (ng/mL) Deficient <20 Insufficient 20 to <30 Sufficient 30 to 100 Reference: Ashley MF,Jodee NC, Christina GUEVARA, et al. Evaluation,treatment, and prevention of vitamin D deficiency; an Endocrine Society clinical practice guideline. JCEM. 2010; 96(7):1911-30. PERFORMED BY: [facility] [address] [place] [address] PATHOLOGIST COTTON FARMER BEKAH FREED M.D. Performed By: #### G LUNICO #### Point of Care testing , Vitamin D+Metabolites [Mass/ volume] in Serum or PlasmaOrdered By: Blue Talbot on 08-02-2024 Vitamin D+Metabolites [Mass/Vol] 31.4 ng/mL 30-100 [facility] Comment on above: VITAMIN D STATUS 25( [place])VITAMIN D RANGE (ng/mL) Deficient <20 Insufficient 20 to <30Sufficient 30 to 100Reference: Ashley MF,Jodee NC, Christina GUEVARA, et al. Evaluation,treatment, and prevention of vitamin D deficiency; an Endocrine Society clinical practice guideline. JCEM. 2010; 96(7):1911-30. Alanine aminotransferase [En zymatic activity/volume] in Serum or PlasmaOrdered By: Octavio Patrick on 08-01-2024 ALT [Catalytic activity/Vol] 16 U/L Normal 7-52 [facility] Comment on above: Performed By: #### G LULS #### Point of Care testing , Albumin [Mass/volume] in Ser um or Plasma by Bromocresol green (BCG) dye binding methoOrdered By: Octavio Patrick on 08-01-2024 Albumin BCG dye [Mass/Vol] 4.2 g/dL 3.5-5.7 [facility] Alkaline phosphatase [Enzyma tic activity/volume] in Serum or PlasmaOrdered By: Octavio Patrick on 08-01-2024 ALP [Catalytic activity/Vol] 43 U/L Normal 34-104 [facility] Comment on above: Performed By: #### G LULS #### Point of Care testing , Amphetamine Screen Ql (U)Ord ered By: Octavio Patrick on 08-01-2024 Amphetamines Ql (U) Negative Negative [facility] Aspartate aminotransferase [ Enzymatic activity/volume] in Serum or PlasmaOrdered By: Octavio Patrick on 08-01-2024 AST [Catalytic activity/Vol] 12 U/L Low 13-39 [facility] Comment on above: Result Comment: PERF ORMED BY: [facility] [address] [place] [address] PATHOLOGIST COTTON FARMER BEKAH FREED M.D. Performed By: #### G LULS #### Point of Care testing , Automated basophil %Ordered By: Octavio Patrick on 08-01-2024 Basophils/100 WBC (Bld) 0.6 % Normal . [facility] Comment on above: Performed By: #### G LULS #### Point of Care testing , Automated basophil countOrde red By: Octavio Patrick on 08-01-2024 Basophils (Bld) [#/Vol] 0.1 10*3/uL Normal 0.0-0.2 [facility] Comment on above: Result Comment: PERF ORMED BY: [facility] [place] [address] PATHOLOGIST COTTON FARMER BEKAH FREED M.D. Performed By: #### G LULS #### Point of Care testing , Automated blood monocyte cou ntOrdered By: Octavio Patrick on 08-01-2024 Monocytes (Bld) [#/Vol] 0.4 10*3/uL Normal 0.0-0.8 [facility] Comment on above: Performed By: #### G LULS #### Point of Care testing , Automated eosinophil %Ordere d By: Octavio Patrick on 08-01-2024 Eosinophils/100 WBC (Bld) 0.7 % Normal . [facility] Comment on above: Performed By: #### G LULS #### Point of Care testing , Automated eosinophil countOr dered By: Octavio Patrick on 08-01-2024 Eosinophils (Bld) [#/Vol] 0.1 10*3/uL Normal 0.0-0.45 [facility] Comment on above: Performed By: #### G LULS #### Point of Care testing , Automated monocyte %Ordered By: Octavoi Patrick on 08-01-2024 Monocytes/100 WBC (Bld) 4.6 % Normal . [facility] Comment on above: Performed By: #### G LULS #### Point of Care testing , Automated neutrophil %Ordere d By: Octavio Patrick on 08-01-2024 Neutrophils/100 WBC (Bld) 59.5 % Normal . [facility] Comment on above: Performed By: #### G LULS #### Point of Care testing , Bacteria [Presence] in Urine by AutomatedOrdered By: Octavio Patrick on 08-01-2024 Bacteria Auto Ql (U) None seen [HPF] None Seen [facility] Barbiturates [Presence] in U rine by Screen methodOrdered By: Octavio Patrick on 08-01-2024 Barbiturates Screen Ql (U) Negative Negative [facility] Benzodiazepines Screen Ql (U )Ordered By: Octavio Patrick on 08-01-2024 Benzodiazepines Ql (U) Negative Negative [facility] Benzoylecgonine [Presence] i n Urine by Screen methodOrdered By: Octavio Patrick on 08-01-2024 Benzoylecgonine Screen Ql (U) Negative Negative [facility] Bilirubin Test strip Ql (U)O rdered By: Octavio Patrick on 08-01-2024 Bilirubin Ql (U) Negative Negative [facility] Bilirubin.total [Mass/volume ] in Serum or PlasmaOrdered By: Octavio Patrick on 08-01-2024 Bilirubin [Mass/Vol] 0.9 mg/dL Normal 0.3-1.0 [facility] Comment on above: Performed By: #### G LULS #### Point of Care testing , Calcium [Mass/volume] in Ser um or PlasmaOrdered By: Octavio Patrick on 08-01-2024 Calcium [Mass/Vol] 9.4 mg/dL Normal 8.6-10.3 [facility] Comment on above: Performed By: #### G LULS #### Point of Care testing , Cannabinoids [Presence] in U rine by Screen methodOrdered By: Octavio Patrick on 08-01-2024 Cannabinoids Screen Ql (U) Negative Negative [facility] Comment on above: These are unconfirme d results and should not be used for legal purposes. Drug Cut-Off Concentration: AMPH 1000 ng/mL KATHLEEN 200 ng/mL CARMEN 200 ng/mL COCM 300 ng/mL OP 300 ng/mL PCP 25 ng/mL THC 20 ng/mL Capillary blood glucose sarah urement by glucometer (mass/volume)Ordered By: Octavio Patrick on 08-01-2024 Glucose [Mass/Vol] 352 mg/dL Normal [facility] Comment on above: Random Glucose Refer ence Range is dependent on time and content of last meal. Glucose of more than 200 mg/dL in a nonstressed, ambulatory subject supports the diagnosis of Diabetes Mellitus. Result Comment: [facility] Glucose Reference Range is dependent on time and content of last meal. Glucose of more than 200 mg/dL in a nonstressed, ambulatory subject supports the diagnosis of Diabetes Mellitus. Performed By: #### G LULS #### Point of Care testing , Carbon dioxide, total [Moles /volume] in Serum or PlasmaOrdered By: Octavio Patrick on 08-01-2024 CO2 [Moles/Vol] 27.8 mmol/L Normal 21.0-31.0 [facility] Comment on above: Performed By: #### G LULS #### Point of Care testing , Chloride [Moles/volume] in S emerson or PlasmaOrdered By: Octavio Patrick on 08-01-2024 Chloride [Moles/Vol] 98 mmol/L Normal 98-107 [facility] Comment on above: Performed By: #### G LULS #### Point of Care testing , Color of Urine by AutoOrdere d By: Octavio Patrick on 08-01-2024 Color (U) Light-yellow Normal Yellow [facility] Comment on above: Order Comment: Name Collection Type:: Clean-Voided Midstream Performed By: #### U RDS, ADDONUAPLUS #### [address] Complete Blood Count Auto Di ffon 08-01-2024 Mean Corpuscular HGB Conc 36.9 g/dL High 32.5-35.6 [facility] Comment on above: Performed By: #### G LULS #### Point of Care testing , Monocytes/100 WBC (Bld) 15.15 % Normal 0.00-20.00 [facility] Comment on above: Performed By: #### G LULS #### Point of Care testing , NRBC% 0.3 /100{WBC} Normal 0-0.5 [facility] Comment on above: Performed By: #### G LULS #### Point of Care testing , Comprehensive Metabolic Pane zoraida 08-01-2024 Albumin Level Normal 3.5-5.7 [facility] Comment on above: Result Comment: Spec imen hemolyzed, redraw requested Performed By: #### G LULS #### Point of Care testing , Albumin/Globulin [Mass ratio] Not performed Normal [facility] Comment on above: Performed By: #### G LULS #### Point of Care testing , Anion gap [Moles/Vol] Not performed Normal 6.0-15.0 [facility] Comment on above: Performed By: #### G LULS #### Point of Care testing , Aspartate Amino Transferase Normal 13-39 [facility] Comment on above: Result Comment: Spec imen hemolyzed, redraw requested Performed By: #### G LULS #### Point of Care testing , Creatinine Clr Calc Pharmacy 135.07 Normal [facility] Comment on above: Result Comment: PERF ORMED BY: [facility] [address] [place] [address] PATHOLOGIST COTTON FARMER BEKAH FREED M.D. Performed By: #### G LULS #### Point of Care testing , GFR/1.73 sq M.predicted MDRD (S/P/Bld) [Vol rate/Area] mL/min/{1.73_m2} Normal [facility] Comment on above: Performed By: #### G LULS #### Point of Care testing , Globulin Not performed Normal [facility] Comment on above: Performed By: #### G LULS #### Point of Care testing , Potassium Normal 3.5-5.1 [facility] Comment on above: Result Comment: Spec imen hemolyzed, redraw requested Performed By: #### G LULS #### Point of Care testing , Sodium Normal 136-145 [facility] Comment on above: Result Comment: Spec imen hemolyzed, redraw requested Performed By: #### G LULS #### Point of Care testing , Total Protein Normal 6.4-8.9 [facility] Comment on above: Result Comment: Spec imen hemolyzed, redraw requested Performed By: #### G LULS #### Point of Care testing , Creatinine [Mass/volume] in Serum or PlasmaOrdered By: Octavio Patrick on 08-01-2024 Creatinine [Mass/Vol] 1.02 mg/dL Normal 0.70-1.30 [facility] Comment on above: Performed By: #### G LULS #### Point of Care testing , Dipstick and Microscopicon 1 Bacteria,Urine None Seen Normal None Seen [facility] Comment on above: Order Comment: Name Collection Type:: Clean-Voided Midstream Performed By: #### U RDS, ADDONUAPLUS #### [facility] [address] [place] [address] [place] Bilirubin,Urine Negative Normal Negative [facility] Comment on above: Order Comment: Name Collection Type:: Clean-Voided Midstream Performed By: #### U RDS, ADDONUAPLUS #### [facility] [address] [place] [address] Glucose Ql (U) >=1000 High Normal [facility] Comment on above: Order Comment: Name Collection Type:: Clean-Voided Midstream Performed By: #### U RDS, ADDONUAPLUS #### [place] [address] [place] Hyaline Casts,Urine None Normal 0-8 [facility] Comment on above: Order Comment: Name Collection Type:: Clean-Voided Midstream Performed By: #### U RDS, ADDONUAPLUS #### [place] [address] [place] Mucus,Urine Rare Normal [facility] Comment on above: Order Comment: Name Collection Type:: Clean-Voided Midstream Result Comment: PERF ORMED BY: [place] [address] PATHOLOGIST COTTON FARMER BEKAH FREED M.D. Performed By: #### U RDS, ADDONUAPLUS #### [facility] [address] [place] [address] [place] Nitrite,Urine Negative Normal Negative [facility] Comment on above: Order Comment: Name Collection Type:: Clean-Voided Midstream Performed By: #### U RDS, ADDONUAPLUS #### [place] [address] [place] Occult Blood,Urine Negative Normal Negative [facility] Comment on above: Order Comment: Name Collection Type:: Clean-Voided Midstream Result Comment: PERF ORMED BY: [place] [address] PATHOLOGIST COTTON FARMER BEKAH FREED M.D. Performed By: #### U RDS, ADDONUAPLUS #### [address] RBC,Urine 1-2 Normal 0-4 [facility] Comment on above: Order Comment: Name Collection Type:: Clean-Voided Midstream Performed By: #### U RDS, ADDONUAPLUS #### [place] [address] [place] Specificy [place],Urine 1.034 High 1.001-1.030 [facility] Comment on above: Order Comment: Name Collection Type:: Clean-Voided Midstream Performed By: #### U RDS, ADDONUAPLUS #### [address] Squamous Epithelial Cell,Urine 1-2 Normal 0-2 [facility] Comment on above: Order Comment: Name Collection Type:: Clean-Voided Midstream Performed By: #### U RDS, ADDONUAPLUS #### [address] Urobilinogen,Urine Normal Normal Normal [facility] Comment on above: Order Comment: Name Collection Type:: Clean-Voided Midstream Performed By: #### U RDS, ADDONUAPLUS #### [place] [address] [place] WBC,Urine 1-2 Normal 0-4 [facility] Comment on above: Order Comment: Name Collection Type:: Clean-Voided Midstream Performed By: #### U RDS, ADDONUAPLUS #### [place] [address] [place] Drug Screen,Urineon 08-01-20 24 Amphetamine Screen,Urine Negative Normal Negative [facility] Comment on above: Performed By: #### U RDS, ADDONUAPLUS #### [address] Barbiturate Screen,Urine Negative Normal Negative [facility] Comment on above: Performed By: #### U RDS, ADDONUAPLUS #### [address] Benzodiazepines Screen,Urine Negative Normal Negative [facility] Comment on above: Performed By: #### U RDS, ADDONUAPLUS #### [address] Cannabinoid Screen,Urine Negative Normal Negative [facility] Comment on above: Result Comment: Thes e are unconfirmed results and should not be used for legal purposes. Drug Cut-Off Concentration: AMPH 1000 ng/mL KATHLEEN 200 ng/mL CARMEN 200 ng/mL COCM 300 ng/mL OP 300 ng/mL PCP 25 ng/mL THC 20 ng/mL PERFORMED BY: [place] [address] PATHOLOGIST COTTON FARMER BEKAH FREED M.D. Performed By: #### U RDS, ADDONUAPLUS #### [address] Cocaine Screen,Urine Negative Normal Negative [facility] Comment on above: Performed By: #### U RDS, ADDONUAPLUS #### [place] [address] [place] Opiate Screen,Urine Negative Normal Negative [facility] Comment on above: Performed By: #### U RDS, ADDONUAPLUS #### [address] Phencyclidine Screen,Urine Negative Normal Negative [facility] Comment on above: Performed By: #### U RDS, ADDONUAPLUS #### [address] ECG 12 lead ECGon 08-01-2024 ECG 12 lead ECG [facility] [place] [address] [place] [address] Electrocardiograph Report Signed Patient: Tracie Ramirez MR#: [id number] : 2000 Acct:[id number] Age/Sex: 24 / M ADM Date: 08/01/24 Loc: Room: [address] [place] [address] Type: ADM IN Attending Dr: Blue Talbot [...] rhythm Normal ECG Confirmed by Lynnette Daniels ([id number]) on 08/02/2024 10:16:21 AM Referred By: Electronically Signed By: Lynnette Daniels Transcribed By: MUS Signed By Lynnette Daniels MD 4 [id number] Normal [facility] Epithelial cells.squamous [# /area] in Urine sediment by Automated countOrdered By: Octavio Patrick on 08-01-2024 Epithelial cells.squamous Auto (Urine sed) [#/Area] 1-2 [HPF] 0-2 [facility] Erythrocyte distribution wid th [Ratio] by Automated countOrdered By: Octavio Patrick on 08-01-2024 Erythrocyte distribution width (RBC) [Ratio] 13.7 % Normal 12.0-14.8 [facility] Comment on above: Performed By: #### G LULS #### Point of Care testing , Erythrocytes [#/area] in Uri ne sediment by Automated countOrdered By: Octavio Patrick on 08-01-2024 RBC Auto (Urine sed) [#/Area] 1-2 [HPF] 0-4 [facility] Erythrocytes [#/volume] in B lood by Automated countOrdered By: Octavio Patrick on 08-01-2024 RBC (Bld) [#/Vol] 5.39 10*6/uL Normal 3.90-5.60 [facility] Comment on above: Performed By: #### G LULS #### Point of Care testing , Ethanol [Mass/volume] in Ser um or PlasmaOrdered By: Octavio Patrick on 08-01-2024 Ethanol [Mass/Vol] mg/dL Normal [facility] Comment on above: Performed By: #### G LULS #### Point of Care testing , Ethanol [Mass/Vol] TNP [facility] Comment on above: Test not performed Ethyl Alcohol Profileon 10 Percent Ethanol Not performed Normal [facility] Comment on above: Result Comment: PERF ORMED BY: [place] [phone] PATHOLOGIST COTTON FARMER BEKAH FREED M.D. Performed By: #### G LULS #### Point of Care testing , Globulin Calc (S) [Mass/Vol] Ordered By: Octavio Patrick on 08-01-2024 Globulin (S) [Mass/Vol] TNP [facility] Comment on above: Test not performed Glucose Poct Glucometerson 1 Glucose [Mass/Vol] 330 mg/dL Normal [facility] Comment on above: Result Comment: [place] Glucose Reference Range is dependent on time and content of last meal. Glucose of more than 200 mg/dL in a nonstressed, ambulatory subject supports the diagnosis of Diabetes Mellitus. PERFORMED BY: [place] [phone] PATHOLOGIST COTTON FARMER BEKAH FREED M.D. Performed By: #### U RDS, ADDONUAPLUS #### [address] Glucose [Mass/Vol] 251 mg/dL Normal [facility] Comment on above: Result Comment: [place] Glucose Reference Range is dependent on time and content of last meal. Glucose of more than 200 mg/dL in a nonstressed, ambulatory subject supports the diagnosis of Diabetes Mellitus. PERFORMED BY: [place] [address] PATHOLOGIST COTTON FARMER BEKAH FREED M.D. Performed By: #### G LULS #### Point of Care testing , Commemt1 Normal [facility] Comment on above: Result Comment: Glu2 : WILL NOTIFY DR/RN PERFORMED BY: [place] [phone] PATHOLOGIST COTTON FARMER BEKAH FREED M.D. Performed By: #### G LULS #### Point of Care testing , Glucose [Mass/volume] in Ser um or PlasmaOrdered By: Octavio Patrick on 08-01-2024 Glucose [Mass/Vol] 206 mg/dL High 70-100 [facility] Comment on above: ADA recommended refe rence rangeRandom Glucose Reference Range is dependent on time and content of last meal. Glucose of more than 200 mg/dL in a nonstressed, ambulatory subject supports the diagnosis of Diabetes Mellitus. Result Comment: [place] om Glucose Reference Range is dependent on time and content of last meal. Glucose of more than 200 mg/dL in a nonstressed, ambulatory subject supports the diagnosis of Diabetes Mellitus. ADA recommended reference range Performed By: #### G LULS #### Point of Care testing , Glucose [Mass/volume] in Uri ne by Test stripOrdered By: Octavio Patrick on 08-01-2024 Glucose Test strip (U) [Mass/Vol] >=1000 mg/dL High Normal [facility] Hematocrit [Volume Fraction] of Blood by Automated countOrdered By: Octavio Patrick on 08-01-2024 Hematocrit (Bld) [Volume fraction] 45.4 % Normal 38.8-50.0 [facility] Comment on above: Performed By: #### G LULS #### Point of Care testing , Hemoglobin Test strip Ql (U) Ordered By: Octavio Patrick on 08-01-2024 Hemoglobin Ql (U) Negative Negative [facility] Hemoglobin [Mass/volume] in BloodOrdered By: Octavio Patrick on 08-01-2024 Hemoglobin (Bld) [Mass/Vol] 16.8 g/dL Normal 13.0-17.0 [facility] Comment on above: Performed By: #### G LULS #### Point of Care testing , Hyaline casts [#/area] in Ur ine sediment by Automated countOrdered By: Octavio Patrick on 08-01-2024 Hyaline casts Auto (Urine sed) [#/Area] None [LPF] 0-8 [facility] Ketones [Presence] in Urine by Test stripOrdered By: Octavio Patrick on 08-01-2024 Ketones Ql (U) 1+ High Negative [facility] Comment on above: Order Comment: Name Collection Type:: Clean-Voided Midstream Performed By: #### U RDS, ADDONUAPLUS #### [facility] [address] [place] [address] [place] Leukocyte esterase [Presence ] in Urine by Test stripOrdered By: Octavio Patrick on 08-01-2024 Leukocyte esterase Test strip Ql (U) Negative Normal Negative [facility] Comment on above: Order Comment: Name Collection Type:: Clean-Voided Midstream Performed By: #### U RDS, ADDONUAPLUS #### [facility] [address] [place] [address] [place] Leukocytes [#/area] in Urine sediment by Automated countOrdered By: Octavio Patrick on 08-01-2024 WBC Auto (Urine sed) [#/Area] 1-2 [HPF] 0-4 [facility] Leukocytes [#/volume] correc naresh for nucleated erythrocytes in Blood by Automated counOrdered By: Octavio Patrick on 08-01-2024 WBC corrected for nucl RBC Auto (Bld) [#/Vol] 8.6 10*3/uL 4.1-10.5 [facility] Leukocytes [#/volume] in Blo od by Automated countOrdered By: Octavio Patrick on 08-01-2024 WBC (Bld) [#/Vol] 8.6 10*3/uL Normal 4.1-10.5 [facility] Comment on above: Performed By: #### G LULS #### Point of Care testing , Lymphocytes [#/volume] in Bl ood by Automated countOrdered By: Octavio Patrick on 08-01-2024 Lymphocytes (Bld) [#/Vol] 3.0 10*3/uL Normal 1.00-4.8 [facility] Comment on above: Performed By: #### G LULS #### Point of Care testing , Lymphocytes/100 leukocytes i n Blood by Automated countOrdered By: Octavio Patrick on 08-01-2024 Lymphocytes/100 WBC (Bld) 34.6 % Normal . [facility] Comment on above: Performed By: #### G LULS #### Point of Care testing , MCH [Entitic mass] by Automa naresh countOrdered By: Octavio Patrick on 08-01-2024 MCH (RBC) [Entitic mass] 31.1 pg Normal 27.5-35.2 [facility] Comment on above: Performed By: #### G LULS #### Point of Care testing , MCHC Auto (RBC) [Mass/Vol]Or dered By: Octavio Patrick on 08-01-2024 MCHC (RBC) [Mass/Vol] 36.9 g/dL High 32.5-35.6 [facility] MCV [Entitic volume] by Auto mated countOrdered By: Octavio Patrick on 08-01-2024 MCV (RBC) [Entitic vol] 84.3 fL Normal 83.5-[address] [facility] Comment on above: Performed By: #### G LUNICO #### Point of Care testing , Monocyte distribution width [Entitic volume] in Blood by AutomatedOrdered By: Octavio Patrick on 08-01-2024 Monocyte distribution width Auto (Bld) [Entitic vol] 15.15 % 0.00-20.00 [facility] Mucus [Presence] in Urine by AutomatedOrdered By: Octavio Patrick on 08-01-2024 Mucus Auto Ql (U) Rare [LPF] [facility] Neutrophils [#/volume] in Bl ood by Automated countOrdered By: Octavio Patrick on 08-01-2024 Neutrophils (Bld) [#/Vol] 5.1 10*3/uL Normal 1.8-7.7 [facility] Comment on above: Performed By: #### G LULS #### Point of Care testing , Nitrite Test strip Ql (U)Ord ered By: Octavio Patrick on 08-01-2024 Nitrite Ql (U) Negative Negative [facility] No Panel InformationOrdered By: Octavio Patrick on 08-01-2024 Bedside Glucose Comment See comment [facility] Comment on above: Glu2: WILL NOTIFY DR /RN Estimated GFR (CKD-EPI) > 60.0 mL/Min [facility] Creatinine Clearance (Chem 135.07 [facility] Nucleated erythrocytes [Pres ence] in Blood by Automated countOrdered By: Octavio Patrick on 08-01-2024 Nucleated RBC Auto Ql (Bld) 0.3 /100{WBC} 0-0.5 [facility] Opiates [Presence] in Urine by Screen methodOrdered By: Octavio Patrick on 08-01-2024 Opiates Screen Ql (U) Negative Negative [facility] Phencyclidine Screen Ql (U)O rdered By: Octavio Patrick on 08-01-2024 Phencyclidine Ql (U) Negative Negative [facility] Platelet mean volume [Entiti c volume] in Blood by Automated countOrdered By: Octavio Patrick on 08-01-2024 Platelet mean volume (Bld) [Entitic vol] 7.9 fL Normal 6.6-10.1 [facility] Comment on above: Performed By: #### G LULS #### Point of Care testing , Platelets [#/volume] in Bloo d by Automated countOrdered By: Octavio Patrick on 08-01-2024 Platelets (Bld) [#/Vol] 160 10*3/uL Normal 150-450 [facility] Comment on above: Performed By: #### G LULS #### Point of Care testing , Potassium [Moles/volume] in Serum or PlasmaOrdered By: Octavio Patrick on 08-01-2024 Potassium [Moles/Vol] 4.1 mmol/L Normal 3.5-5.1 [facility] Comment on above: Performed By: #### G LULS #### Point of Care testing , Protein [Mass/volume] in Ser um or PlasmaOrdered By: Octavio Patrick on 08-01-2024 Protein [Mass/Vol] 6.9 g/dL Normal 6.4-8.9 [facility] Comment on above: Performed By: #### G LULS #### Point of Care testing , Protein [Mass/volume] in Uri ne by Test stripOrdered By: Octavio Patrick on 08-01-2024 Protein (U) [Mass/Vol] 20 mg/dL High Negative [facility] Comment on above: Order Comment: Name Collection Type:: Clean-Voided Midstream Performed By: #### U RDS, ADDONUAPLUS #### [facility] [address] [place] [id number] [place] Redraw Rosie 08-01-2024 Redraw AST Normal 13-39 [facility] Comment on above: Result Comment: Spec imen hemolyzed, redraw requested PERFORMED BY: [facility] [place] [address] PATHOLOGIST COTTON FARMER BEKAH FREED M.D. Performed By: #### G LULS #### Point of Care testing , Redraw Albumin Levelon 08-01 Albumin [Mass/Vol] 4.2 g/dL Normal 3.5-5.7 [facility] Comment on above: Performed By: #### G LULS #### Point of Care testing , Redraw Potassiumon 4 Redraw Potassium Normal 3.5-5.1 [facility] Comment on above: Result Comment: Spec imen hemolyzed, redraw requested Performed By: #### G LULS #### Point of Care testing , Serum or plasma albumin/glob ulin mass ratioOrdered By: Octavio Patrick on 08-01-2024 Albumin/Globulin [Mass ratio] [facility] Comment on above: Test not performed Serum or plasma anion gap de terminationOrdered By: Octavio Patrick on 08-01-2024 Anion gap [Moles/Vol] [facility] Comment on above: Test not performed Sodium [Moles/volume] in Ser um or PlasmaOrdered By: Octavio Patrick on 08-01-2024 Sodium [Moles/Vol] 134 mmol/L Low 136-145 [facility] Comment on above: Performed By: #### G LULS #### Point of Care testing , Specific gravity Test strip (U) [Rel density]Ordered By: Octavio Patrick on 08-01-2024 Specific gravity (U) [Rel density] 1.034 High 1.001-1.030 [facility] Urea nitrogen [Mass/volume] in Serum or PlasmaOrdered By: Octavio Patrick on 08-01-2024 Urea nitrogen [Mass/Vol] 14 mg/dL Normal 7-25 [facility] Comment on above: Performed By: #### G LULS #### Point of Care testing , Urine appearanceOrdered By: Octavio Patrick on 08-01-2024 Appearance (U) Clear Normal Clear [facility] Comment on above: Order Comment: Name Collection Type:: Clean-Voided Midstream Performed By: #### U RDS, ADDONUAPLUS #### [facility] [address] [place] [id number] [facility] Urobilinogen Test strip (U) [Mass/Vol]Ordered By: Octavio Patrick on 08-01-2024 Urobilinogen (U) [Mass/Vol] Normal mg/dL Normal [facility] pH of Urine by Test stripOrd ered By: Octavio Patrick on 08-01-2024 pH (U) 6.0 [pH] Normal 5.0-9.0 [facility] Comment on above: Order Comment: Name Collection Type:: Clean-Voided Midstream Performed By: #### U RDS, ADDONUAPLUS #### [facility] [address] [place], [place] [id number] [facility] HbA1c HPLC (Bld) [Mass fract ion]on 06-29-2024 HbA1c (Bld) [Mass fraction] % High [facility] Patient Letter FTon 2023 Patient Letter [facility] Patient Letter [facility] June 02, 2024 TRACIE RAMIREZ [address] [place] [id number] : 2000 Dear Mr. Tracie Ramirez, You missed your scheduled procedure on: 05/31/24 [...] consideration regarding any future cancellations. Sincerely, Normal [facility] XR Knee Complete Left*on XR Knee Complete [...] by Darien Lugo on 03/05/2023 1626 Normal [facility] Lifter/Driver CBC AUTO DIFFon 01-25-2023 BASO # 0.0 103/ul Normal 0.0-0.1 [facility] Comment on above: Performed By: #### P OCGLUC #### [facility] [address] [place] [address] [address] Taylor Garcia Basophils/100 WBC (Bld) 0.6 % Normal 0.2-2.0 [facility] Comment on above: Performed By: #### P OCGLUC #### [facility] [address] [place] [address] Dr. Taylor Garcia EO # 0.1 103/ul Normal 0.0-0.7 [facility] Comment on above: Performed By: #### P OCGLUC #### [facility] [address] [place] [address] Dr. Taylor Garcia Eosinophils/100 WBC (Bld) 1.7 % Normal 0.9-7.0 [facility] Comment on above: Performed By: #### P OCGLUC #### [facility] [address] [place] [address] Dr. Taylor Garcia Erythrocyte distribution width (RBC) [Ratio] 12.7 % Normal 11.0-15.0 [facility] Comment on above: Performed By: #### P OCGLUC #### [facility] [address] [place] [address] Dr. Taylor Garcia Hematocrit (Bld) [Volume fraction] 38.6 % Critically low 42.0-54.0 [facility] Comment on above: Performed By: #### P OCGLUC #### [facility] [address] [place] [address] Dr. Taylor Garcia Hemoglobin (Bld) [Mass/Vol] 14.0 g/dL Normal 14.0-18.0 [facility] Comment on above: Performed By: #### P OCGLUC #### [facility] [address] [place] [address] Dr. Taylor Garcia IG # 0.08 10e3/ul Critically high 0.00-0.03 [facility] Comment on above: Performed By: #### P OCGLUC #### [facility] [address] [place] [address] [address] Taylor Garcia IG % 1.6 % Critically high 0.0-0.5 [facility] Comment on above: Performed By: #### P OCGLUC #### [facility] [address] [place] [address] [address] Taylor Garcia LYMPH # 1.7 103/ul Normal 1.2-3.8 [facility] Comment on above: Performed By: #### P OCGLUC #### [facility] [address] [place] [address] Dr. Taylor Garcia Lymphocytes/100 WBC (Bld) 33.4 % Normal 20.5-60.0 [facility] Comment on above: Performed By: #### P OCGLUC #### [facility] [address] [place] [address] Dr. Taylor Garcia MANUAL DIFF REQ NO Normal [facility] Comment on above: Performed By: #### P OCGLUC #### [facility] [address] [place] [address] Dr. Taylor Garcia MCH (RBC) [Entitic mass] 31.7 pg Normal 25.9-34.0 [facility] Comment on above: Performed By: #### P OCGLUC #### [facility] [address] [place] [address] Dr. Taylor Garcia MCHC (RBC) [Mass/Vol] 36.3 g/dL Critically high 29.9-35.2 [facility] Comment on above: Performed By: #### P OCGLUC #### [facility] [address] [place] [address] Dr. Taylor Garcia MCV (RBC) [Entitic vol] 87.3 fL Normal 80.0-94.0 [facility] Comment on above: Performed By: #### P OCGLUC #### [facility] [address] [place] [address] Dr. Taylor Garcia MONO # 0.4 103/ul Normal 0.3-0.8 [facility] Comment on above: Performed By: #### P OCGLUC #### [facility] [address] [place] [address] Dr. Taylor Garcia Monocytes/100 WBC (Bld) 8.2 % Normal 1.7-12.0 [facility] Comment on above: Performed By: #### P OCGLUC #### [facility] [address] [place] [address] Dr. Taylor Garcia NEUT # 2.8 103/ul Normal 1.4-6.5 [facility] Comment on above: Performed By: #### P OCGLUC #### [facility] [address] [place] [address] Dr. Taylor Garcia Neutrophils/100 WBC (Bld) 54.5 % Normal 43.0-75.0 [facility] Comment on above: Performed By: #### P OCGLUC #### [facility] [address] [place] [address] Dr. Taylor Garcia Platelet mean volume (Bld) [Entitic vol] 10.3 fL Normal 9.5-13.5 [facility] Comment on above: Performed By: #### P OCGLUC #### [facility] [address] [place] [address] Dr. Taylor Garcia PLT 113 103/ul Critically low 150-450 [facility] Comment on above: Performed By: #### P OCGLUC #### [facility] [address] [place] [address] Dr. Taylor Garcia RBC 4.42 106/ul Critically low 4.70-6.10 [facility] Comment on above: Performed By: #### P OCGLUC #### [facility] [address] [place] [address] Dr. Taylor Garcia WBC 5.2 103/ul Normal 4.0-11.0 [facility] Comment on above: Performed By: #### P OCGLUC #### [facility] [address] [place] [address] Dr. Taylor Garcia DIRECT LDLon 01-25-2023 Cholesterol in LDL [Mass/Vol] 108 mg/dL Normal [facility] Comment on above: Performed By: #### P OCGLUC #### [facility] [address] [place] [address] Dr. Taylor Garcia DLDL NORMAL SEE BELOW Normal [facility] Comment on above: Result Comment: <100 mg/dl OPTIMAL 100 - 129 mg/dl NEAR OR ABOVE OPTIMAL 130 - 159 mg/dl BORDERLINE HIGH 160 - 189 mg/dl HIGH >190 mg/dl VERY HIGH Performed By: #### P OCGLUC #### [facility] [address] [place] [address] Dr. Taylor Garcia LIPASEon 01-25-2023 Lipase [Catalytic activity/Vol] 91.0 U/L Normal 73.0-393.0 [facility] Comment on above: Performed By: #### P OCGLUC #### [facility] [address] [place] [address] Dr. Taylor Garcia LIPID PROFILEon 01-25-2023 CHOL-HDL RATIO NORM SEE BELOW Normal [facility] Comment on above: Result Comment: 3.3 - 4.4 LOW RISK 4.4 - 7.1 AVERAGE RISK 7.1 - 11.0 MODERATE RISK >11.0 HIGH RISK Performed By: #### P OCGLUC #### [facility] [address] [place] [address] Dr. Taylor Garcia Cholesterol [Mass/Vol] 299 mg/dL Critically high <=200 [facility] Comment on above: Performed By: #### P OCGLUC #### [facility] [address] [place] [address] Dr. Taylor Garcia Cholesterol in HDL [Mass/Vol] 22 mg/dL Critically low 40-60 [facility] Comment on above: Performed By: #### P OCGLUC #### [facility] [address] [place] [address] Dr. Taylor Garcia Cholesterol.total/Marge sterol in HDL [Mass ratio] 13.6 {ratio} Normal [facility] Comment on above: Performed By: #### P OCGLUC #### [facility] [address] [place] [address] Dr. Taylor Garcia HDL NORMAL > or = 60 mg/dl - LO W CARDIOVASCULAR RISK <40 mg/dl - HIGH CARDIOVASCULAR RISK Normal [facility] Comment on above: Performed By: #### P OCGLUC #### [facility] [address] [place] [address] [address] Taylor Garcia Triglyceride [Mass/Vol] 798 mg/dL Critically high <=150 [facility] Comment on above: Performed By: #### P OCGLUC #### [facility] [address] [place] [address] [address] Taylor Garcia VLDL CALC 159.6 mg/dL Normal [facility] Comment on above: Performed By: #### P OCGLUC #### [facility] [address] [place] [address] [address] Taylor Garcia POINT OF CARE GLUCOSEon Glucose [Mass/Vol] 252 mg/dL Critically high 74-106 [facility] Comment on above: Performed By: #### P OCGLUC #### [facility] [address] [place] [address] [address] aTylor Garcia Glucose [Mass/Vol] 181 mg/dL Critically high 74-106 [facility] Comment on above: Performed By: #### P OCGLUC #### [facility] [address] [place] [address] [address] Taylor Garcia PROF 14(COMP METB)on 023 Albumin [Mass/Vol] 3.0 g/dL Critically low 3.4-5.0 [facility] Comment on above: Performed By: #### P OCGLUC #### [facility] [address] [place] [address] Dr. Talyor Garcia Albumin/Globulin [Mass ratio] 0.9 {ratio} Normal [facility] Comment on above: Performed By: #### P OCGLUC #### [facility] [address] [place] [address] Dr. Taylor Garcia ALP [Catalytic activity/Vol] 41 U/L Critically low 46-116 [facility] Comment on above: Performed By: #### P OCGLUC #### [facility] [address] [place] [address] [address] Taylor Garcia ALT [Catalytic activity/Vol] 37 U/L Normal 16-63 [facility] Comment on above: Performed By: #### P OCGLUC #### [facility] [address] [place] [address] [address] Taylor Garcia Anion gap [Moles/Vol] 16.0 mmol/L Normal [facility] Comment on above: Performed By: #### P OCGLUC #### [facility] [address] [id number] Dr. Taylor Garcia AST [Catalytic activity/Vol] 20 U/L Normal 15-37 [facility] Comment on above: Performed By: #### P OCGLUC #### [facility] [address] [address] [address] Taylor Garcia Bilirubin [Mass/Vol] 0.5 mg/dL Normal 0.2-1.0 [facility] Comment on above: Performed By: #### P OCGLUC #### [facility] [address] [address] [address] Taylor Garcia Calcium [Mass/Vol] 8.9 mg/dL Normal 8.5-10.1 [facility] Comment on above: Performed By: #### P OCGLUC #### [facility] [address] [place] [address] Dr. Taylor Garcia Chloride [Moles/Vol] 103 mmol/L Normal 98-107 [facility] Comment on above: Performed By: #### P OCGLUC #### [facility] [address] [address] [address] Taylor Garcia CO2 [Moles/Vol] 22.0 mmol/L Normal 21.0-32.0 [place] Comment on above: Performed By: #### P OCGLUC #### [facility] [address] [address] [address] Taylor Garcia Creatinine [Mass/Vol] 0.65 mg/dL Critically low 0.70-1.30 [facility] Comment on above: Performed By: #### P OCGLUC #### [facility] [address] [address] [address] Taylor Garcia EGFR-AF DUTCH >60 Normal >=60 [place] Comment on above: Performed By: #### P OCGLUC #### [facility] [address] [address] [address] Taylor Garcia EGFR-NON AF DUTCH >60 Normal >=60 [facility] Comment on above: Performed By: #### P OCGLUC #### [facility] [address] [address] [address] Taylor Garcia Globulin (S) [Mass/Vol] 3.3 g/dL [facility] Comment on above: Performed By: #### P OCGLUC #### [facility] [address] [address] [address] Taylor Garcia Glucose [Mass/Vol] 198 mg/dL Critically high 74-106 [facility] Comment on above: Performed By: #### P OCGLUC #### [facility] [address] [address] [address] Taylor Garcia Potassium [Moles/Vol] 4.0 mmol/L Normal 3.5-5.1 [facility] Comment on above: Performed By: #### P OCGLUC #### [facility] [address] [address] [address] Taylor Garcia Protein [Mass/Vol] 6.3 g/dL Critically low 6.4-8.2 [facility] Comment on above: Performed By: #### P OCGLUC #### [facility] [address] [address] [address] Taylor Garcia Sodium [Moles/Vol] 137 mmol/L Normal 136-145 [facility] Comment on above: Performed By: #### P OCGLUC #### [facility] [address] [address] [address] Taylor Garcia Urea nitrogen [Mass/Vol] 9.0 mg/dL Normal 7.0-18.0 [facility] Comment on above: Performed By: #### P OCGLUC #### [facility] [address] [address] [address] Taylor Garcia Urea nitrogen/Creatinine [Mass ratio] 13.8 mg/mg Normal [facility] Comment on above: Performed By: #### P OCGLUC #### [facility] [address] [address] [address] Taylor Garcia Alanine aminotransferase [En zymatic activity/volume] in Serum or PlasmaOrdered By: Shaikh Swapnil on 01-24-2023 ALT [Catalytic activity/Vol] 30 U/L 7-52 [facility] Albumin [Mass/volume] in Ser um or Plasma by Bromocresol green (BCG) dye binding methoOrdered By: Shaikh Swapnil on 01-24-2023 Albumin BCG dye [Mass/Vol] 3.5 g/dL 3.5-5.7 [facility] Alkaline phosphatase [Enzyma tic activity/volume] in Serum or PlasmaOrdered By: Shaikh Swapnil on 01-24-2023 ALP [Catalytic activity/Vol] 38 U/L 34-104 [facility] Aspartate aminotransferase [ Enzymatic activity/volume] in Serum or PlasmaOrdered By: Shaikh Swapnil on 01-24-2023 AST [Catalytic activity/Vol] 17 U/L 13-39 [facility] Bilirubin.total [Mass/volume ] in Serum or PlasmaOrdered By: Shaikh Swapnil on 01-24-2023 Bilirubin [Mass/Vol] 0.6 mg/dL 0.3-1.0 [facility] CBC AUTO DIFFon 01-24-2023 BASO # 0.0 103/ul Normal 0.0-0.1 [facility] Comment on above: Performed By: #### P OCGLUC #### [facility] [address] [place] [address] Dr. Taylor Garcia Basophils/100 WBC (Bld) 0.4 % Normal 0.2-2.0 [facility] Comment on above: Performed By: #### P OCGLUC #### [facility] [address] [place] [address] Dr. Taylor Garcia EO # 0.1 103/ul Normal 0.0-0.7 [facility] Comment on above: Performed By: #### P OCGLUC #### [facility] [address] [address] [address] Taylor Garcia Eosinophils/100 WBC (Bld) 1.1 % Normal 0.9-7.0 [facility] Comment on above: Performed By: #### P OCGLUC #### [facility] [address] [address] [address] Taylor Garcia Erythrocyte distribution width (RBC) [Ratio] 12.7 % Normal 11.0-15.0 [facility] Comment on above: Performed By: #### P OCGLUC #### [facility] [address] [place] [address] Dr. Taylor Garcia Hematocrit (Bld) [Volume fraction] 37.3 % Critically low 42.0-54.0 [facility] Comment on above: Performed By: #### P OCGLUC #### [facility] [address] [place] [address] Dr. Taylor Garcia Hemoglobin (Bld) [Mass/Vol] 13.8 g/dL Critically low 14.0-18.0 [facility] Comment on above: Performed By: #### P OCGLUC #### [facility] [address] [place] [address] Dr. Taylor Garcia IG # 0.05 10e3/ul Critically high 0.00-0.03 [facility] Comment on above: Performed By: #### P OCGLUC #### [facility] [address] [place] [address] Dr. Taylor Garcia IG % 0.7 % Critically high 0.0-0.5 [facility] Comment on above: Performed By: #### P OCGLUC #### [facility] [address] [place] [address] Dr. Taylor Garcia LYMPH # 1.6 103/ul Normal 1.2-3.8 [facility] Comment on above: Performed By: #### P OCGLUC #### [facility] [address] [place] [address] Dr. Taylor Garcia Lymphocytes/100 WBC (Bld) 22.8 % Normal 20.5-60.0 [facility] Comment on above: Performed By: #### P OCGLUC #### [facility] [address] [place] [address] Dr. Taylor Garcia MANUAL DIFF REQ NO Normal [facility] Comment on above: Performed By: #### P OCGLUC #### [facility] [address] [place] [address] Dr. Taylor Garcia MCH (RBC) [Entitic mass] 32.0 pg Normal 25.9-34.0 [facility] Comment on above: Performed By: #### P OCGLUC #### [facility] [address] [place] [address] Dr. Taylor Garcia MCHC (RBC) [Mass/Vol] 37.0 g/dL Critically high 29.9-35.2 [facility] Comment on above: Performed By: #### P OCGLUC #### [facility] [address] [place] [address] Dr. Taylor Garcia MCV (RBC) [Entitic vol] 86.5 fL Normal 80.0-94.0 [facility] Comment on above: Performed By: #### P OCGLUC #### [facility] [address] [place] [address] Dr. Taylor Garcia MONO # 0.6 103/ul Normal 0.3-0.8 [facility] Comment on above: Performed By: #### P OCGLUC #### [facility] [address] [place] [address] Dr. Taylor Garcia Monocytes/100 WBC (Bld) 8.2 % Normal 1.7-12.0 [facility] Comment on above: Performed By: #### P OCGLUC #### [facility] [address] [place] [address] Dr. Taylor Garcia NEUT # 4.8 103/ul Normal 1.4-6.5 [facility] Comment on above: Performed By: #### P OCGLUC #### [facility] [address] [place] [address] Dr. Taylor Garcia Neutrophils/100 WBC (Bld) 66.8 % Normal 43.0-75.0 [facility] Comment on above: Performed By: #### P OCGLUC #### [facility] [address] [address] [address] Taylor Garcia Platelet mean volume (Bld) [Entitic vol] 10.0 fL Normal 9.5-13.5 [facility] Comment on above: Performed By: #### P OCGLUC #### [facility] [address] [address] [address] Taylor Garcia PLT 109 103/ul Critically low 150-450 [facility] Comment on above: Performed By: #### P OCGLUC #### [facility] [address] [address] [address] Taylor Garcia RBC 4.31 106/ul Critically low 4.70-6.10 [facility] Comment on above: Performed By: #### P OCGLUC #### [facility] [address] [address] [address] Taylor Garcia WBC 7.2 103/ul Normal 4.0-11.0 [facility] Comment on above: Performed By: #### P OCGLUC #### [facility] [address] [address] [address] Taylor Garcia Calcium [Mass/volume] in Ser um or PlasmaOrdered By: Shaikh Swapnil on 01-24-2023 Calcium [Mass/Vol] 8.7 mg/dL 8.6-10.3 [facility] Carbon dioxide, total [Moles /volume] in Serum or PlasmaOrdered By: Shaikh Swapnil on 01-24-2023 CO2 [Moles/Vol] 19.8 mmol/L 21.0-31.0 [facility] Chloride [Moles/volume] in S emerson or PlasmaOrdered By: Shaikh Swapnil on 01-24-2023 Chloride [Moles/Vol] 105 mmol/L 98-107 [facility] Creatinine [Mass/volume] in Serum or PlasmaOrdered By: Shaikh Swapnil on 01-24-2023 Creatinine [Mass/Vol] 0.71 mg/dL 0.70-1.30 [facility] DIRECT LDLon 01-24-2023 Cholesterol in LDL [Mass/Vol] 73 mg/dL Normal [facility] Comment on above: Performed By: #### P OCGLUC #### [facility] [address] [address] [address] Taylor Garcia DLDL NORMAL SEE BELOW Normal [facility] Comment on above: Result Comment: <100 mg/dl OPTIMAL 100 - 129 mg/dl NEAR OR ABOVE OPTIMAL 130 - 159 mg/dl BORDERLINE HIGH 160 - 189 mg/dl HIGH >190 mg/dl VERY HIGH Performed By: #### P OCGLUC #### [facility] [address] [address] [address] Taylor Garcia GLYCOHEMOGLOBIN A1Con 2022 ADA RECOMMENDATION SEE BELOW Normal [facility] Comment on above: Result Comment: ADA RECOMMENDED LIMIT 4.0 - 6.0 ADA THERAPEUTIC TARGET < 7.0 ACTION SUGGESTED > 7.0 Performed By: #### P OCGLUC #### [facility] [address] [address] [address] Taylor Garcia Glucose [Mass/Vol] 280 mg/dL Normal [facility] Comment on above: Performed By: #### P OCGLUC #### [facility] [address] [address] [address] Taylor Garcia HbA1c (Bld) [Mass fraction] 11.4 % Critically high 4.5-6.2 [facility] Comment on above: Performed By: #### P OCGLUC #### [facility] [address] [address] [address] Taylor Garcia Globulin Calc (S) [Mass/Vol] Ordered By: Shaikh Swapnil on 01-24-2023 Globulin (S) [Mass/Vol] 2.3 g/dL [facility] Glucose [Mass/volume] in Ser um or PlasmaOrdered By: Shaikh Swapnil on 01-24-2023 Glucose [Mass/Vol] 165 mg/dL 70-100 [facility] Comment on above: ADA recommended refe rence rangeRandom Glucose Reference Range is dependent on time and content of last meal. Glucose of more than 200 mg/dL in a nonstressed, ambulatory subject supports the diagnosis of Diabetes Mellitus. LAB TESTINGon 01-24-2023 RECV HEADER SEE SCANNED REPORT I N HPF Normal [facility] Comment on above: Performed By: #### P OCGLUC #### [facility] [address] [address] [address] Taylor Garcia REV FROM REF LAB 01/24/2023 Normal [place] Comment on above: Performed By: #### P OCGLUC #### [facility] [address] [address] [address] Taylor Garcia SENT TO REF LAB 01/24/2023 Normal [facility] Comment on above: Performed By: #### P OCGLUC #### [facility] [address] [place] [address] Dr. Taylor Garcia LIPASEon 01-24-2023 Lipase [Catalytic activity/Vol] 97.0 U/L Normal 73.0-393.0 [facility] Comment on above: Performed By: #### P OCGLUC #### [facility] [address] [address] [address] Taylor Garcia LIPID PROFILEon 01-24-2023 CHOL-HDL RATIO NORM SEE BELOW Normal [facility] Comment on above: Result Comment: 3.3 - 4.4 LOW RISK 4.4 - 7.1 AVERAGE RISK 7.1 - 11.0 MODERATE RISK >11.0 HIGH RISK Performed By: #### P OCGLUC #### [facility] [address] [place] [address] Dr. Taylor Garcia Cholesterol [Mass/Vol] 296 mg/dL Critically high <=200 [facility] Comment on above: Performed By: #### P OCGLUC #### [facility] [address] [place] [address] Dr. Taylor Garcia Cholesterol in HDL [Mass/Vol] 26 mg/dL Critically low 40-60 [facility] Comment on above: Performed By: #### P OCGLUC #### [facility] [address] [place] [address] Dr. Taylor Garcia Cholesterol.total/Marge sterol in HDL [Mass ratio] 11.4 {ratio} Normal [facility] Comment on above: Performed By: #### P OCGLUC #### [facility] [address] [address] [address] Taylor Garcia HDL NORMAL > or = 60 mg/dl - LO W CARDIOVASCULAR RISK <40 mg/dl - HIGH CARDIOVASCULAR RISK Normal [facility] Comment on above: Performed By: #### P OCGLUC #### [facility] [address] [address] [address] Taylor Garcia LDL CALC NORMAL SEE BELOW Normal [facility] Comment on above: Result Comment: <100 mg/dl OPTIMAL 100 - 129 mg/dl NEAR OR ABOVE OPTIMAL 130 - 159 mg/dl BORDERLINE HIGH 160 - 189 mg/dl HIGH >190 mg/dl VERY HIGH Performed By: #### P OCGLUC #### [facility] [address] [address] [address] Taylor Garcia Triglyceride [Mass/Vol] 935 mg/dL Critically high <=150 [facility] Comment on above: Performed By: #### P OCGLUC #### [facility] [address] [address] [address] Taylor Garcia VLDL CALC 187.0 mg/dL Normal [facility] Comment on above: Performed By: #### P OCGLUC #### [facility] [address] [address] [address] Taylor Garcia Lipase [Enzymatic activity/v olume] in Serum or PlasmaOrdered By: Shaikh Swapnil on 01-24-2023 Lipase [Catalytic activity/Vol] 34.0 U/L 11.0-82.0 [facility] No Panel InformationOrdered By: Shaikh Swapnil on 01-24-2023 Estimated GFR (CKD-EPI) > 60.0 mL/Min [facility] Creatinine Clearance (Chem N/A [facility] POINT OF CARE GLUCOSEon Glucose [Mass/Vol] 171 mg/dL Critically high 74-106 [facility] Comment on above: Performed By: #### P OCGLUC #### [facility] [address] [address] [address] Taylor Garcia Glucose [Mass/Vol] 168 mg/dL Critically high 74-106 [facility] Comment on above: Performed By: #### P OCGLUC #### [facility] [address] [address] [address] Taylor Garcia Glucose [Mass/Vol] 249 mg/dL Critically high [address] [place] [address] Comment on above: Performed By: #### P OCGLUC #### [facility] [address] [address] [address] Taylor Garcia Glucose [Mass/Vol] 126 mg/dL Critically high [address] [place] [address] Comment on above: Performed By: #### P OCGLUC #### [facility] [address] [address] [address] Taylor Garcia Glucose [Mass/Vol] 166 mg/dL Critically high [address] [place] [address] Comment on above: Performed By: #### P OCGLUC #### [facility] [address] [address] [address] Taylor Garcia Glucose [Mass/Vol] 157 mg/dL Critically high [address] [place] [address] Comment on above: Performed By: #### P OCGLUC #### [facility] [address] [address] [address] Taylor Garcia Glucose [Mass/Vol] 156 mg/dL Critically high [address] [place] [address] Comment on above: Performed By: #### P OCGLUC #### [facility] [address] [address] [address] Taylor Garcia Glucose [Mass/Vol] 97 mg/dL Normal 74-106 [facility] Comment on above: Performed By: #### P OCGLUC #### [facility] [address] [address] [address] Taylor Garcia Glucose [Mass/Vol] 84 mg/dL Normal 74-106 [facility] Comment on above: Performed By: #### P OCGLUC #### [facility] [address] [address] [address] Taylor Garcia Glucose [Mass/Vol] 74 mg/dL Normal 74-106 [facility] Comment on above: Performed By: #### P OCGLUC #### [facility] [address] [address] [address] Taylor Garcia Glucose [Mass/Vol] 79 mg/dL Normal 74-106 [facility] Comment on above: Performed By: #### P OCGLUC #### [facility] [address] [address] [address] Taylor Garcia Glucose [Mass/Vol] 117 mg/dL Critically high 74-106 [facility] Comment on above: Performed By: #### P OCGLUC #### [facility] [address] [address] [address] Taylor Garcia Glucose [Mass/Vol] 134 mg/dL Critically high 74-106 [facility] Comment on above: Performed By: #### P OCGLUC #### [facility] [address] [address] [address] Taylor Garcia Glucose [Mass/Vol] 163 mg/dL Critically high 74-106 [facility] Comment on above: Performed By: #### P OCGLUC #### [facility] [address] [address] [address] Taylor Garcia PROF CHEM 8 (BAS METB)on Anion gap [Moles/Vol] 14.4 mmol/L Normal [facility] Comment on above: Result Comment: test preformed at [facility] Performed By: #### P OCGLUC #### [facility] [address] [address] [address] Taylor Garcia Calcium [Mass/Vol] 8.9 mg/dL Normal 8.5-10.1 [facility] Comment on above: Result Comment: test preformed at [facility] Performed By: #### P OCGLUC #### [facility] [address] [address] [address] Taylro Garcia Chloride [Moles/Vol] 105 mmol/L Normal 98-107 [facility] Comment on above: Result Comment: test preformed at [facility] Performed By: #### P OCGLUC #### [facility] [address] [address] [address] Taylor Garcia CO2 [Moles/Vol] 20.2 mmol/L Critically low 21.0-32.0 [facility] Comment on above: Result Comment: test preformed at [facility] Performed By: #### P OCGLUC #### [facility] [address] [address] [address] Taylor Garcia Creatinine [Mass/Vol] 0.69 mg/dL Critically low 0.70-1.30 [facility] Comment on above: Result Comment: test preformed at [facility] Performed By: #### P OCGLUC #### [facility] [address] [address] [address] Taylor Garcia EGFR-AF DUTCH >60 Normal >=60 [place] Comment on above: Performed By: #### P OCGLUC #### [facility] [address] [address] [address] Taylor Garcia EGFR-NON AF DUTCH >60 Normal >=60 [facility] Comment on above: Performed By: #### P OCGLUC #### [facility] [address] [address] [address] Taylor Garcia Glucose [Mass/Vol] 103 mg/dL Normal 74-106 [facility] Comment on above: Result Comment: test preformed at [facility] Performed By: #### P OCGLUC #### [facility] [address] [address] [address] Taylor Garcia Potassium [Moles/Vol] 3.6 mmol/L Normal 3.5-5.1 [facility] Comment on above: Result Comment: test preformed at [facility] Performed By: #### P OCGLUC #### [facility] [address] [address] [address] Taylor Garcia Sodium [Moles/Vol] 136 mmol/L Normal 136-145 [facility] Comment on above: Result Comment: test preformed at [facility] Performed By: #### P OCGLUC #### [facility] [address] [address] [address] Taylor Garcia Urea nitrogen [Mass/Vol] 6.0 mg/dL Critically low 7.0-18.0 [facility] Comment on above: Result Comment: test preformed at [facility] Performed By: #### P OCGLUC #### [facility] [address] [address] [address] Taylor Garcia Urea nitrogen/Creatinine [Mass ratio] 8.7 mg/mg Normal [facility] Comment on above: Performed By: #### P OCGLUC #### [facility] [address] [address] [address] Taylor Garcia Potassium [Moles/volume] in Serum or PlasmaOrdered By: Shaikh Swapnil on 01-24-2023 Potassium [Moles/Vol] 3.6 mmol/L 3.5-5.1 [facility] Protein [Mass/volume] in Ser um or PlasmaOrdered By: Shaikh Swapnil on 01-24-2023 Protein [Mass/Vol] 5.8 g/dL 6.4-8.9 [facility] Serum or plasma albumin/glob ulin mass ratioOrdered By: Shaikh Swapnil on 01-24-2023 Albumin/Globulin [Mass ratio] 1.5 {ratio} [facility] Serum or plasma anion gap de terminationOrdered By: Shaikh Swapnil on 01-24-2023 Anion gap [Moles/Vol] 13.8 mmol/L 6.0-15.0 [facility] Sodium [Moles/volume] in Ser um or PlasmaOrdered By: Shaikh Swapnil on 01-24-2023 Sodium [Moles/Vol] 135 mmol/L 136-145 [facility] Urea nitrogen [Mass/volume] in Serum or PlasmaOrdered By: Shaikh Swapnil on 01-24-2023 Urea nitrogen [Mass/Vol] 6 mg/dL 05-19 [facility] Alanine aminotransferase [En zymatic activity/volume] in Serum or PlasmaOrdered By: Shaikh Swapnil on 01-23-2023 ALT [Catalytic activity/Vol] 45 U/L [facility] Albumin [Mass/volume] in Ser um or Plasma by Bromocresol green (BCG) dye binding methoOrdered By: Shaikh Swapnil on 01-23-2023 Albumin BCG dye [Mass/Vol] 4.0 g/dL 3.5-5.7 [facility] Comment on above: Delta: 5.0 on -8 Alkaline phosphatase [Enzyma tic activity/volume] in Serum or PlasmaOrdered By: Shaikh Swapnil on 01-23-2023 ALP [Catalytic activity/Vol] 40 U/L 34-104 [facility] Aspartate aminotransferase [ Enzymatic activity/volume] in Serum or PlasmaOrdered By: Shaikh Swapnil on 01-23-2023 AST [Catalytic activity/Vol] See comment 13-39 [facility] Comment on above: Specimen hemolyzed, redraw requested Bilirubin.total [Mass/volume ] in Serum or PlasmaOrdered By: Shaikh Swapnil on 01-23-2023 Bilirubin [Mass/Vol] 1.1 mg/dL 0.3-1.0 [facility] CBC AUTO DIFFon 01-23-2023 BASO # 0.0 103/ul Normal 0.0-0.1 [facility] Comment on above: Performed By: #### C BC #### [facility] [address] [place] [address] Dr. Taylor Garcia Basophils/100 WBC (Bld) 0.3 % Normal 0.2-2.0 [facility] Comment on above: Performed By: #### C BC #### [facility] [address] [address] [address] Taylor Garcia EO # 0.1 103/ul Normal 0.0-0.7 [facility] Comment on above: Performed By: #### C BC #### [facility] [address] [address] [address] Taylor Garcia Eosinophils/100 WBC (Bld) 0.6 % Critically low 0.9-7.0 [facility] Comment on above: Performed By: #### C BC #### [facility] [address] [address] [address] Taylor Garcia Erythrocyte distribution width (RBC) [Ratio] 12.8 % Normal 11.0-15.0 [facility] Comment on above: Performed By: #### C BC #### [facility] [address] [address] [address] Taylor Garcia Hematocrit (Bld) [Volume fraction] 38.1 % Critically low 42.0-54.0 [facility] Comment on above: Performed By: #### C BC #### [facility] [address] [place] [address] Dr. Taylor Garcia Hemoglobin (Bld) [Mass/Vol] 13.3 g/dL Critically low 14.0-18.0 [facility] Comment on above: Performed By: #### C BC #### [facility] [address] [place] [address] Dr. Taylor Garcia IG # 0.07 10e3/ul Critically high 0.00-0.03 [facility] Comment on above: Performed By: #### C BC #### [facility] [address] [place] [address] Dr. Taylor Garcia IG % 0.7 % Critically high 0.0-0.5 [facility] Comment on above: Performed By: #### C BC #### [facility] [address] [place] [address] Dr. Taylor Garcia LYMPH # 1.8 103/ul Normal 1.2-3.8 [facility] Comment on above: Performed By: #### C BC #### [facility] [address] [place] [address] Dr. Taylor Garcia Lymphocytes/100 WBC (Bld) 16.6 % Critically low 20.5-60.0 [facility] Comment on above: Performed By: #### C BC #### [facility] [address] [place] [address] Dr. Taylor Garcia MANUAL DIFF REQ NO Normal [facility] Comment on above: Performed By: #### C BC #### [facility] [address] [place] [address] Dr. Taylor Garcia MCH (RBC) [Entitic mass] 30.2 pg Normal 25.9-34.0 [facility] Comment on above: Performed By: #### C BC #### [facility] [address] [address] [address] Taylor Garcia MCHC (RBC) [Mass/Vol] 34.9 g/dL Normal 29.9-35.2 [facility] Comment on above: Performed By: #### C BC #### [facility] [address] [address] [address] Taylor Garcia MCV (RBC) [Entitic vol] 86.6 fL Normal 80.0-94.0 [facility] Comment on above: Performed By: #### C BC #### [facility] [address] [address] [address] Taylor Garcia MONO # 0.7 103/ul Normal 0.3-0.8 [facility] Comment on above: Performed By: #### C BC #### [facility] [address] [place] [address] Dr. Taylor Garcia Monocytes/100 WBC (Bld) 6.9 % Normal 1.7-12.0 [facility] Comment on above: Performed By: #### C BC #### [facility] [address] [address] [address] Taylor Garcia NEUT # 7.9 103/ul Critically high 1.4-6.5 [facility] Comment on above: Performed By: #### C BC #### [facility] [address] [place] [address] Dr. Taylor Garcia Neutrophils/100 WBC (Bld) 74.9 % Normal 43.0-75.0 [facility] Comment on above: Performed By: #### C BC #### [facility] [address] [address] [address] Taylor Garcia Platelet mean volume (Bld) [Entitic vol] 10.8 fL Normal 9.5-13.5 [facility] Comment on above: Performed By: #### C BC #### [facility] [address] [place] [address] Dr. Taylor Garcia PLT 123 103/ul Critically low 150-450 [facility] Comment on above: Performed By: #### C BC #### [facility] [address] [address] [address] Taylor Garcia RBC 4.40 106/ul Critically low 4.70-6.10 [facility] Comment on above: Performed By: #### C BC #### [facility] [address] [place], [place] [address] Dr. Taylor Garcia WBC 10.6 103/ul Normal 4.0-11.0 [facility] Comment on above: Performed By: #### C BC #### [facility] [address] [address] [address] Taylor Garcia Calcium [Mass/volume] in Ser um or PlasmaOrdered By: Shaikh Swapnil on 01-23-2023 Calcium [Mass/Vol] 8.9 mg/dL 8.6-10.3 [facility] Carbon dioxide, total [Moles /volume] in Serum or PlasmaOrdered By: Shaikh Swapnil on 01-23-2023 CO2 [Moles/Vol] 21.8 mmol/L 21.0-31.0 [facility] Chloride [Moles/volume] in S emerson or PlasmaOrdered By: Shaikh Swapnil on 01-23-2023 Chloride [Moles/Vol] 103 mmol/L Normal 98-107 [facility] Comment on above: Performed By: #### P OCGLUC #### [facility] [address] [address] [address] Taylor Garcia Creatinine [Mass/volume] in Serum or PlasmaOrdered By: Shaikh Swapnil on 01-23-2023 Creatinine [Mass/Vol] 0.63 mg/dL 0.70-1.30 [facility] DIRECT LDLon 01-23-2023 Cholesterol in LDL [Mass/Vol] 67 mg/dL Normal [facility] Comment on above: Performed By: #### P OCGLUC #### [facility] [address] [address] [address] Taylor Garcia DLDL NORMAL SEE BELOW Normal [facility] Comment on above: Result Comment: <100 mg/dl OPTIMAL 100 - 129 mg/dl NEAR OR ABOVE OPTIMAL 130 - 159 mg/dl BORDERLINE HIGH 160 - 189 mg/dl HIGH >190 mg/dl VERY HIGH Performed By: #### P OCGLUC #### [facility] [address] [address] [address] Taylor Garcia GLYCOHEMOGLOBIN A1Con 2022 ADA RECOMMENDATION SEE BELOW Normal [facility] Comment on above: Result Comment: ADA RECOMMENDED LIMIT 4.0 - 6.0 ADA THERAPEUTIC TARGET < 7.0 ACTION SUGGESTED > 7.0 Performed By: #### P OCGLUC #### [facility] [address] [place], [place] [address] Dr. Taylor Garcia Glucose [Mass/Vol] 266 mg/dL Normal [facility] Comment on above: Performed By: #### P OCGLUC #### [facility] [address] [address] [address] Taylor Garcia HbA1c (Bld) [Mass fraction] 10.9 % Critically high 4.5-6.2 [facility] Comment on above: Performed By: #### P OCGLUC #### [facility] [address] [address] [address] Taylor Garcia Globulin Calc (S) [Mass/Vol] Ordered By: Shaikh Swapnil on 01-23-2023 Globulin (S) [Mass/Vol] 2.5 g/dL [facility] Glucose [Mass/volume] in Ser um or PlasmaOrdered By: Shaikh Swapnil on 01-23-2023 Glucose [Mass/Vol] 193 mg/dL 70-100 [facility] Comment on above: Delta: 65 on 3-1635ADA recommended reference rangeRandom Glucose Reference Range is dependent on time and content of last meal. Glucose of more than 200 mg/dL in a nonstressed, ambulatory subject supports the diagnosis of Diabetes Mellitus. LIPID PROFILEon 01-23-2023 CHOL-HDL RATIO NORM SEE BELOW Normal [facility] Comment on above: Result Comment: 3.3 - 4.4 LOW RISK 4.4 - 7.1 AVERAGE RISK 7.1 - 11.0 MODERATE RISK >11.0 HIGH RISK Performed By: #### P OCGLUC #### [facility] [address] [address] [address] Taylor Garcia Cholesterol [Mass/Vol] 320 mg/dL Critically high <=200 [facility] Comment on above: Performed By: #### P OCGLUC #### [facility] [address] [address] [address] Taylor Garcia Cholesterol in HDL [Mass/Vol] 27 mg/dL Critically low 40-60 [facility] Comment on above: Performed By: #### P OCGLUC #### [facility] [address] [address] [address] Taylor Garcia Cholesterol.total/Marge sterol in HDL [Mass ratio] 11.9 {ratio} Normal [facility] Comment on above: Performed By: #### P OCGLUC #### [facility] [address] [address] [address] Taylor Garcia HDL NORMAL > or = 60 mg/dl - LO W CARDIOVASCULAR RISK <40 mg/dl - HIGH CARDIOVASCULAR RISK Normal [facility] Comment on above: Performed By: #### P OCGLUC #### [facility] [address] [address] [address] Taylor Garcia Triglyceride [Mass/Vol] 1599 mg/dL Critically high <=150 [facility] Comment on above: Performed By: #### P OCGLUC #### [facility] [address] [address] [address] Taylor Garcia VLDL CALC 319.8 mg/dL Normal [facility] Comment on above: Performed By: #### P OCGLUC #### [facility] [address] [address] [address] Taylor Garcia No Panel InformationOrdered By: Shaikh Swapnil on 01-23-2023 Estimated GFR (CKD-EPI) > 60.0 mL/Min [facility] Creatinine Clearance (Chem N/A [facility] POINT OF CARE GLUCOSEon 03-3 Glucose [Mass/Vol] 224 mg/dL Critically high 74-106 [facility] Comment on above: Performed By: #### P OCGLUC #### [facility] [address] [address] [address] Taylor Garcia Glucose [Mass/Vol] 142 mg/dL Critically high 74-106 [facility] Comment on above: Performed By: #### P OCGLUC #### [facility] [address] [address] [address] Taylor Garcia Glucose [Mass/Vol] 102 mg/dL Normal 74-106 [facility] Comment on above: Performed By: #### P OCGLUC #### [facility] [address] [address] [address] Taylor Garcia Glucose [Mass/Vol] 100 mg/dL Normal 74-106 [facility] Comment on above: Performed By: #### P OCGLUC #### [facility] [address] [address] [address] Taylor Garcia Glucose [Mass/Vol] 84 mg/dL Normal 74-106 [facility] Comment on above: Performed By: #### P OCGLUC #### [facility] [address] [address] [address] Taylor Garcia Glucose [Mass/Vol] 72 mg/dL Critically low 74-106 [facility] Comment on above: Performed By: #### P OCGLUC #### [facility] [address] [address] [address] Taylor Garcia Glucose [Mass/Vol] 69 mg/dL Critically low 74-106 [facility] Comment on above: Performed By: #### P OCGLUC #### [facility] [address] [address] [address] Taylor Garcia Glucose [Mass/Vol] 78 mg/dL Normal 74-106 [facility] Comment on above: Performed By: #### P OCGLUC #### [facility] [address] [address] [address] Taylor Garcia Glucose [Mass/Vol] 114 mg/dL Critically high 74-106 [facility] Comment on above: Performed By: #### P OCGLUC #### [facility] [address] [address] [address] Taylor Garcia Glucose [Mass/Vol] 185 mg/dL Critically high 74-106 [facility] Comment on above: Performed By: #### P OCGLUC #### [facility] [address] [place] [address] Dr. Taylor Garcia Glucose [Mass/Vol] 230 mg/dL Critically high 74-106 [facility] Comment on above: Performed By: #### P OCGLUC #### [facility] [address] [address] [address] Taylor Garcia Glucose [Mass/Vol] 253 mg/dL Critically high -106 [facility] Comment on above: Performed By: #### P OCGLUC #### [facility] [address] [place] [address] Dr. Taylor Garcia PROF CHEM 8 (BAS METB)on Anion gap [Moles/Vol] 13.1 mmol/L Normal [facility] Comment on above: Performed By: #### P OCGLUC #### [facility] [address] [place] [address] Dr. Taylor Garcia Calcium [Mass/Vol] 8.9 mg/dL Normal 8.5-10.1 [facility] Comment on above: Performed By: #### P OCGLUC #### [facility] [address] [place] [address] Dr. Taylor Garcia Chloride [Moles/Vol] 103 mmol/L Normal 98-107 [facility] Comment on above: Performed By: #### P OCGLUC #### [facility] [address] [place] [address] Dr. Taylor Garcia CO2 [Moles/Vol] 21.8 mmol/L Normal 21.0-32.0 [place] Comment on above: Performed By: #### P OCGLUC #### [facility] [address] [place] [address] Dr. Taylor Garcia Creatinine [Mass/Vol] 0.63 mg/dL Critically low 0.70-1.30 [facility] Comment on above: Performed By: #### P OCGLUC #### [facility] [address] [place] [address] Dr. Taylor Garcia EGFR-AF DUTCH >60 Normal >=60 [place] Comment on above: Performed By: #### P OCGLUC #### [facility] [address] [address] [address] Taylor Garcia EGFR-NON AF DUTCH >60 Normal >=60 [facility] Comment on above: Performed By: #### P OCGLUC #### [facility] [address] [address] [address] Taylor Garcia Glucose [Mass/Vol] 193 mg/dL Critically high 74-106 [facility] Comment on above: Performed By: #### P OCGLUC #### [facility] [address] [address] [address] Taylor Garcia Potassium [Moles/Vol] 3.9 mmol/L Normal 3.5-5.1 [facility] Comment on above: Performed By: #### P OCGLUC #### [facility] [address] [address] [address] Taylor Garcia Sodium [Moles/Vol] 134 mmol/L Critically low 136-145 [facility] Comment on above: Performed By: #### P OCGLUC #### [facility] [address] [address] [address] Taylor Garcia Urea nitrogen [Mass/Vol] 6.0 mg/dL Critically low 7.0-18.0 [facility] Comment on above: Performed By: #### P OCGLUC #### [facility] [address] [address] [address] Taylor Garcia Urea nitrogen/Creatinine [Mass ratio] 9.5 mg/mg Normal [facility] Comment on above: Performed By: #### P OCGLUC #### [facility] [address] [address] [address] Taylor Garcia Anion gap [Moles/Vol] 12.8 mmol/L Normal [facility] Comment on above: Performed By: #### P OCGLUC #### [facility] [address] [address] [address] Taylor Garcia Calcium [Mass/Vol] 9.2 mg/dL Normal 8.5-10.1 [facility] Comment on above: Performed By: #### P OCGLUC #### [facility] [address] [address] [address] Taylor Garcia CO2 [Moles/Vol] 22.6 mmol/L Normal 21.0-32.0 [place] Comment on above: Performed By: #### P OCGLUC #### [facility] [address] [address] [address] Taylor Garcia Creatinine [Mass/Vol] 0.72 mg/dL Normal 0.70-1.30 [facility] Comment on above: Performed By: #### P OCGLUC #### [facility] [address] [address] [address] Taylor Garcia Glucose [Mass/Vol] 65 mg/dL Critically low 74-106 [facility] Comment on above: Performed By: #### P OCGLUC #### [facility] [address] [address] [address] Taylor Garcia Potassium [Moles/Vol] 3.4 mmol/L Critically low 3.5-5.1 [facility] Comment on above: Performed By: #### P OCGLUC #### [facility] [address] [place] [address] Dr. Taylor Garcia Sodium [Moles/Vol] 135 mmol/L Critically low 136-145 [facility] Comment on above: Performed By: #### P OCGLUC #### [facility] [address] [address] [address] Taylor Garcia Urea nitrogen [Mass/Vol] 7.0 mg/dL Normal 7.0-18.0 [facility] Comment on above: Performed By: #### P OCGLUC #### [facility] [address] [address] [address] Taylor Garcia Urea nitrogen/Creatinine [Mass ratio] 9.7 mg/mg Normal [facility] Comment on above: Performed By: #### P OCGLUC #### [facility] [address] [address] [address] Taylor Garcia Potassium [Moles/volume] in Serum or PlasmaOrdered By: Shaikh Swapnil on 01-23-2023 Potassium [Moles/Vol] 3.9 mmol/L 3.5-5.1 [facility] Comment on above: Hemolysis is present at a level that could interfere with the result. Protein [Mass/volume] in Ser um or PlasmaOrdered By: Shaikh Swapnil on 01-23-2023 Protein [Mass/Vol] 6.5 g/dL 6.4-8.9 [facility] Serum or plasma albumin/glob ulin mass ratioOrdered By: Shaikh Swapnil on 01-23-2023 Albumin/Globulin [Mass ratio] 1.6 {ratio} [facility] Serum or plasma anion gap de terminationOrdered By: Shaikh Swapnil on 01-23-2023 Anion gap [Moles/Vol] 13.1 mmol/L 6.0-15.0 [facility] Sodium [Moles/volume] in Ser um or PlasmaOrdered By: Shaikh Swapnil on 01-23-2023 Sodium [Moles/Vol] 134 mmol/L 136-145 [facility] Urea nitrogen [Mass/volume] in Serum or PlasmaOrdered By: Shaikh Swapnil on 01-23-2023 Urea nitrogen [Mass/Vol] 6 mg/dL 7 [facility] Alanine aminotransferase [En zymatic activity/volume] in Serum or PlasmaOrdered By: NON STAFF on 01-22-2023 ALT [Catalytic activity/Vol] 75 U/L 7-52 [facility] Albumin [Mass/volume] in Ser um or Plasma by Bromocresol green (BCG) dye binding methoOrdered By: NON STAFF on 01-22-2023 Albumin BCG dye [Mass/Vol] 5.0 g/dL 3.5-5.7 [facility] Alkaline phosphatase [Enzyma tic activity/volume] in Serum or PlasmaOrdered By: NON STAFF on 01-22-2023 ALP [Catalytic activity/Vol] 60 U/L 34-104 [facility] Aspartate aminotransferase [ Enzymatic activity/volume] in Serum or PlasmaOrdered By: NON STAFF on 01-22-2023 AST [Catalytic activity/Vol] 22 U/L 13-39 [facility] Bilirubin.total [Mass/volume ] in Serum or PlasmaOrdered By: NON STAFF on 01-22-2023 Bilirubin [Mass/Vol] 1.1 mg/dL 0.3-1.0 [facility] CBC AUTO DIFFon 01-22-2023 BASO # 0.1 103/ul Normal 0.0-0.1 [facility] Comment on above: Performed By: #### P OCGLUC #### [facility] [address] [address] [address] Taylor Garcia Basophils/100 WBC (Bld) 0.4 % Normal 0.2-2.0 [facility] Comment on above: Performed By: #### P OCGLUC #### [facility] [address] [place] [address] Dr. Taylor Garcia EO # 0.0 103/ul Normal 0.0-0.7 [facility] Comment on above: Performed By: #### P OCGLUC #### [facility] [address] [place] [address] Dr. Taylor Garcia Eosinophils/100 WBC (Bld) 0.2 % Critically low 0.9-7.0 [facility] Comment on above: Performed By: #### P OCGLUC #### [facility] [address] [place] [address] Dr. Taylor Garcia Erythrocyte distribution width (RBC) [Ratio] 12.4 % Normal 11.0-15.0 [facility] Comment on above: Performed By: #### P OCGLUC #### [facility] [address] [place] [address] Dr. Taylor Garcia Hematocrit (Bld) [Volume fraction] 44.1 % Normal 42.0-54.0 [facility] Comment on above: Performed By: #### P OCGLUC #### [facility] [address] [place] [address] Dr. Taylor Garcia Hemoglobin (Bld) [Mass/Vol] 16.9 g/dL Normal 14.0-18.0 [facility] Comment on above: Performed By: #### P OCGLUC #### [facility] [address] [address] [address] Taylor Garcia IG # 0.11 10e3/ul Critically high 0.00-0.03 [facility] Comment on above: Performed By: #### P OCGLUC #### [facility] [address] [address] [address] Taylor Garcia IG % 0.8 % Critically high 0.0-0.5 [facility] Comment on above: Performed By: #### P OCGLUC #### [facility] [address] [address] [address] Taylor Garcia LYMPH # 1.3 103/ul Normal 1.2-3.8 [facility] Comment on above: Performed By: #### P OCGLUC #### [facility] [address] [address] [address] Taylor Garcia Lymphocytes/100 WBC (Bld) 9.7 % Critically low 20.5-60.0 [facility] Comment on above: Performed By: #### P OCGLUC #### [facility] [address] [address] [address] Taylor Garcia MANUAL DIFF REQ NO Normal [facility] Comment on above: Performed By: #### P OCGLUC #### [facility] [address] [address] [address] Taylor Garcia MCH (RBC) [Entitic mass] 32.1 pg Normal 25.9-34.0 [facility] Comment on above: Performed By: #### P OCGLUC #### [facility] [address] [address] [address] Taylor Garcia MCHC (RBC) [Mass/Vol] 38.3 g/dL Critically high 29.9-35.2 [facility] Comment on above: Performed By: #### P OCGLUC #### [facility] [address] [address] [address] Taylor Garcia MCV (RBC) [Entitic vol] 83.8 fL Normal 80.0-94.0 [facility] Comment on above: Performed By: #### P OCGLUC #### [facility] [address] [address] [address] Taylor Garcia MONO # 0.9 103/ul Critically high 0.3-0.8 [facility] Comment on above: Performed By: #### P OCGLUC #### [facility] [address] [address] [address] Taylor Garcia Monocytes/100 WBC (Bld) 6.7 % Normal 1.7-12.0 [facility] Comment on above: Performed By: #### P OCGLUC #### [facility] [address] [address] [address] Taylor Garcia NEUT # 11.1 103/ul Critically high 1.4-6.5 [place] Comment on above: Performed By: #### P OCGLUC #### [facility] [address] [address] [address] Taylor Garcia Neutrophils/100 WBC (Bld) 82.2 % Critically high 43.0-75.0 [facility] Comment on above: Performed By: #### P OCGLUC #### [facility] [address] [address] [address] Taylor Garcia Platelet mean volume (Bld) [Entitic vol] 9.6 fL Normal 9.5-13.5 [facility] Comment on above: Performed By: #### P OCGLUC #### [facility] [address] [place] [address] Dr. Taylor Garcia PLT 161 103/ul Normal 150-450 [facility] Comment on above: Performed By: #### P OCGLUC #### [facility] [address] [place] [address] Dr. Taylor Garcia RBC 5.54 106/ul Normal 4.70-6.10 [facility] Comment on above: Performed By: #### P OCGLUC #### [facility] [address] [place] [address] Dr. Taylor Garcia WBC 13.5 103/ul Critically high 4.0-11.0 [facility] Comment on above: Performed By: #### P OCGLUC #### [facility] [address] [address] [address] ABD/PELVIS WO CONon [...] BRIGITTE BROWN Date: 2023-01-22 16:08 Normal [facility] CULTURE BLOODon 01-22-2023 Microscopic examination of blood, culture Culture Observations: NO GROWTH AT 5 DAYS. Isolate 1 BC_BA_NA Normal [facility] Comment on above: Performed By: #### P OCGLUC #### [facility] [address] [address] [address] Taylor Garcia Microscopic examination of blood, culture Culture Observations: NO GROWTH AT 5 DAYS. Isolate 1 BC_BA_NA Normal [facility] Comment on above: Performed By: #### P OCGLUC #### [facility] [address] [address] [address] Taylor Garcia Calcium [Mass/volume] in Ser um or PlasmaOrdered By: NON STAFF on 01-22-2023 Calcium [Mass/Vol] 9.9 mg/dL 8.6-10.3 [facility] Carbon dioxide, total [Moles /volume] in Serum or PlasmaOrdered By: NON STAFF on 01-22-2023 CO2 [Moles/Vol] 21.5 mmol/L 21.0-31.0 [facility] Chloride [Moles/volume] in S emerson or PlasmaOrdered By: NON STAFF on 01-22-2023 Chloride [Moles/Vol] 95 mmol/L 98-107 [facility] Covid-19 PCR (CVDTBH)on 12-26 SARS-CoV-2 (COVID-19) RNA HEIDY+probe Ql (Unsp spec) Not detected Normal NOT DETECTED [facility] Comment on above: Result Comment: When diagnostic [...] for this test is supported by the [place] of Health and Human Service's declaration that [...] used). Performed By: #### P OCGLUC #### [facility] [address] [address] [address] Taylor Garcia Creatinine [Mass/volume] in Serum or PlasmaOrdered By: NON STAFF on 01-22-2023 Creatinine [Mass/Vol] 0.94 mg/dL 0.70-1.30 [facility] DIRECT LDLon 01-22-2023 Cholesterol in LDL [Mass/Vol] 137 mg/dL Normal [facility] Comment on above: Performed By: #### P OCGLUC #### [facility] [address] [address] [address] Taylor Garcia DLDL NORMAL SEE BELOW Normal [facility] Comment on above: Result Comment: <100 mg/dl OPTIMAL 100 - 129 mg/dl NEAR OR ABOVE OPTIMAL 130 - 159 mg/dl BORDERLINE HIGH 160 - 189 mg/dl HIGH >190 mg/dl VERY HIGH Performed By: #### P OCGLUC #### [facility] [address] [address] [address] Taylor Garcia ER URINE PROFILEon 3 Bilirubin Ql (U) Negative Normal NEGATIVE [place] Comment on above: Performed By: #### P OCGLUC #### [facility] [address] [place] [address] Dr. Taylor Garcia Clarity (U) CLEAR Normal CLEAR [facility] Comment on above: Performed By: #### P OCGLUC #### [facility] [address] [place] [address] Dr. Taylor Garcia Color (U) LT. YELLOW Normal YELLOW [facility] Comment on above: Performed By: #### P OCGLUC #### [facility] [address] [place] [address] Dr. Taylor Garcia ERUAHD A micrscopic examination will be performed if indicated. Normal [facility] Comment on above: Performed By: #### P OCGLUC #### [facility] [address] [place] [address] Dr. Taylor Garcia Glucose Ql (U) 500 mg/dl Abnormal NEGATIVE [facility] Comment on above: Performed By: #### P OCGLUC #### [facility] [address] [place] [address] Dr. Taylor Garcia Hemoglobin Ql (U) TRACE-INTACT Abnormal NEGATIVE [facility] Comment on above: Performed By: #### P OCGLUC #### [facility] [address] [place] [address] Dr. Taylor Garcia Ketones Ql (U) >=80 Abnormal NEGATIVE [facility] Comment on above: Performed By: #### P OCGLUC #### [facility] [address] [place] [address] Dr. Taylor Garcia LEUKOCYTES Negative Normal NEGATIVE [facility] Comment on above: Performed By: #### P OCGLUC #### [facility] [address] [address] [address] Taylor Garcia Nitrite Ql (U) Negative Normal NEGATIVE [facility] Comment on above: Performed By: #### P OCGLUC #### [facility] [address] [address] [address] Taylor Garcia pH (U) 5.5 [pH] Normal 5-9 [facility] Comment on above: Performed By: #### P OCGLUC #### [facility] [address] [address] [address] Taylor Garcia Protein (U) [Mass/Vol] 30 mg/dL Abnormal NEGAT BRIDGET/ TRACE [facility] Comment on above: Performed By: #### P OCGLUC #### [facility] [address] [place] [address] Dr. Taylor Garcia SPEC GRAVITY 1.025 Normal 1.005-<=1.02 5 [facility] Comment on above: Performed By: #### P OCGLUC #### [facility] [address] [address] [address] Taylor Garcia UR MICRO IND INDICATED Normal [facility] Comment on above: Performed By: #### P OCGLUC #### [facility] [address] [address] [address] Taylor Garcia Urobilinogen Qn (U) 0.2 {[place]'U}/dL Normal 0.2 - 1. 0 [facility] Comment on above: Performed By: #### P OCGLUC #### [facility] [address] [address] [address] Taylor Garcia Globulin Calc (S) [Mass/Vol] Ordered By: NON STAFF on 01-22-2023 Globulin (S) [Mass/Vol] 2.6 g/dL [facility] Glucose [Mass/volume] in Ser um or PlasmaOrdered By: NON STAFF on 01-22-2023 Glucose [Mass/Vol] 331 mg/dL 70-100 [facility] Comment on above: ADA recommended refe rence rangeRandom Glucose Reference Range is dependent on time and content of last meal. Glucose of more than 200 mg/dL in a nonstressed, ambulatory subject supports the diagnosis of Diabetes Mellitus. LIPID PROFILEon 01-22-2023 CHOL-HDL RATIO NORM SEE BELOW Normal [facility] Comment on above: Result Comment: 3.3 - 4.4 LOW RISK 4.4 - 7.1 AVERAGE RISK 7.1 - 11.0 MODERATE RISK >11.0 HIGH RISK Performed By: #### P OCGLUC #### [facility] [address] [address] [address] Taylor Garcia Cholesterol [Mass/Vol] 380 mg/dL Critically high <=200 [facility] Comment on above: Performed By: #### P OCGLUC #### [facility] [address] [address] [address] Taylor Garcia Cholesterol in HDL [Mass/Vol] 33 mg/dL Critically low 40-60 [facility] Comment on above: Performed By: #### P OCGLUC #### [facility] [address] [address] [address] Taylor Garcia Cholesterol.total/Marge sterol in HDL [Mass ratio] 11.5 {ratio} Normal [facility] Comment on above: Performed By: #### P OCGLUC #### [facility] [address] [address] [address] Taylor Garcia HDL NORMAL > or = 60 mg/dl - LO W CARDIOVASCULAR RISK <40 mg/dl - HIGH CARDIOVASCULAR RISK Normal [facility] Comment on above: Performed By: #### P OCGLUC #### [facility] [address] [address] [address] Taylor Garcia LDL CALC NORMAL SEE BELOW Normal [facility] Comment on above: Result Comment: <100 mg/dl OPTIMAL 100 - 129 mg/dl NEAR OR ABOVE OPTIMAL 130 - 159 mg/dl BORDERLINE HIGH 160 - 189 mg/dl HIGH >190 mg/dl VERY HIGH Performed By: #### P OCGLUC #### [facility] [address] [address] [address] Taylor Garcia Triglyceride [Mass/Vol] 4548 mg/dL Critically high <=150 [facility] Comment on above: Performed By: #### P OCGLUC #### [facility] [address] [address] [address] Taylor Garcia VLDL CALC 909.6 mg/dL Normal [facility] Comment on above: Performed By: #### P OCGLUC #### [facility] [address] [address] [address] Taylor Garcia Lactate [Moles/volume] in Se rum or PlasmaOrdered By: NON STAFF on 01-22-2023 Lactate [Moles/Vol] 1.0 mmol/L 0.5-2.2 [facility] Lipase [Enzymatic activity/v olume] in Serum or PlasmaOrdered By: NON STAFF on 01-22-2023 Lipase [Catalytic activity/Vol] 112.0 U/L 11.0-82.0 [facility] No Panel InformationOrdered By: NON STAFF on 01-22-2023 Estimated GFR (CKD-EPI) > 60.0 mL/Min [facility] Creatinine Clearance (Chem N/A [facility] POINT OF CARE GLUCOSEon 12-26 Glucose [Mass/Vol] 523 mg/dL Critically high 74-106 [facility] Comment on above: Result Comment: Will Repeat Test Performed By: #### P OCGLUC #### [facility] [address] [address] [address] Taylor Garcia Potassium [Moles/volume] in Serum or PlasmaOrdered By: NON STAFF on 01-22-2023 Potassium [Moles/Vol] 4.1 mmol/L 3.5-5.1 [facility] Protein [Mass/volume] in Ser um or PlasmaOrdered By: NON STAFF on 01-22-2023 Protein [Mass/Vol] 7.6 g/dL 6.4-8.9 [facility] Serum or plasma albumin/glob ulin mass ratioOrdered By: NON STAFF on 01-22-2023 Albumin/Globulin [Mass ratio] 1.9 {ratio} [facility] Serum or plasma anion gap de terminationOrdered By: NON STAFF on 01-22-2023 Anion gap [Moles/Vol] 20.6 mmol/L 6.0-15.0 [facility] Sodium [Moles/volume] in Ser um or PlasmaOrdered By: NON STAFF on 01-22-2023 Sodium [Moles/Vol] 133 mmol/L 136-145 [facility] URINE MICROSCOPIC ONLYon BACTERIA NONE SEEN Normal NONE SEEN [facility] Comment on above: Performed By: #### P OCGLUC #### [facility] [address] [place] [address] Dr. Taylor Garcia Bacteria identified Cx Nom (U) NOT INDICATED Normal [facility] Comment on above: Performed By: #### P OCGLUC #### [facility] [address] [place] [address] Dr. Taylor Garcia CAST NONE SEEN Normal NONE SEEN [facility] Comment on above: Performed By: #### P OCGLUC #### [facility] [address] [place] [address] Dr. Taylor Garcia Crystals LM Nom (Urine sed) NONE SEEN Normal NONE SEEN [facility] Comment on above: Performed By: #### P OCGLUC #### [facility] [address] [place] [address] Dr. Taylor Garcia Epithelial cells LM Ql (Urine sed) NONE SEEN Normal NONE SEEN /RARE [facility] Comment on above: Performed By: #### P OCGLUC #### [facility] [address] [place] [address] Dr. Taylor Garcia MUCOUS NONE SEEN Normal NONE SEEN [facility] Comment on above: Performed By: #### P OCGLUC #### [facility] [address] [place] [address] Dr. Taylor Garcia RBC 0-2 Normal 0-2 [facility] Comment on above: Performed By: #### P OCGLUC #### [facility] [address] [place] [address] Dr. Taylor Garcia WBC 0-2 Abnormal NONE SEEN [facility] Comment on above: Performed By: #### P OCGLUC #### [facility] [address] [place] [address] Dr. Taylor Garcia Urea nitrogen [Mass/volume] in Serum or PlasmaOrdered By: NON STAFF on 01-22-2023 Urea nitrogen [Mass/Vol] 10 mg/dL 05-19 [facility] XR CHEST 1 Von 01-22-2023 XR CHEST [...] by: CÉSAR SALES Date: 2023-01-22 14:40 Normal [facility] XR FOOT LEFT (MIN 3 VIEWS)on 04-23-2022 [...] Rimma Nunn MD 04/23/22 Final result Normal [facility] Hemoglobin A1Con 04-22-2022 Glucose [Mass/Vol] 97 mg/dL Normal [facility] Comment on above: Result Comment: The ADA and AACC recommend providing the estimated average glucose result to permit better patient understanding of their HBA1c result. Performed By: #### L IPR #### [facility] [address] [place], [place] [id number] Search Consultant: Yogesh Lehman DO #### GLYHGB #### [facility] [address] [place] [address] Search Consultant: Frank Otero MD HbA1c (Bld) [Mass fraction] 5.0 % Normal 4.0-6.0 [facility] Comment on above: Performed By: #### L IPR #### [facility] [address] [place] [address] Search Consultant: Yogesh Lehman DO #### GLYHGB #### [address] [address] Search Consultant: Frank Otero MD Lipid Profileon 04-22-2022 Cholesterol [Mass/Vol] 161 mg/dL Normal <200 [facility] Comment on above: Result Comment: Cholesterol Guidelines: <200 Desirable 200-240 Borderline >240 Undesirable Performed By: #### L IPR #### [facility] [place] [address] Search Consultant: Yogesh Lehman DO #### GLYHGB #### [address] [address] Search Consultant: Frank Otero MD Cholesterol in HDL [Mass/Vol] 26 mg/dL Low >40 [facility] Comment on above: Result Comment: HDL Guidelines: <40 Undesirable 40-59 Borderline >59 Desirable Performed By: #### L IPR #### [facility] [address] [place] [address] Search Consultant: Yogesh Lehman DO #### GLYHGB #### [address] [address] Search Consultant: Frank Otero MD Cholesterol in LDL [Mass/Vol] 83 mg/dL Normal 0-130 [facility] Comment on above: Result Comment: LDL Guidelines: <100 Desirable 100-129 Near to/above Desirable 130-159 Borderline >159 Undesirable Direct (measured) LDL and calculated LDL are not interchangeable tests. Performed By: #### L IPR #### [facility] [place] [address] Search Consultant: Yogesh Lehman DO #### GLYHGB #### [address] [address] Search Consultant: Frank Otero MD Cholesterol.total/Marge sterol in HDL [Mass ratio] 6.2 {ratio} High <5 [facility] Comment on above: Performed By: #### L IPR #### [facility] [address] [place] [address] Search Consultant: Yogesh Lehman DO #### GLYHGB #### [address] [address] Search Consultant: Frank Otero MD Triglyceride [Mass/Vol] 260 mg/dL High <150 [facility] Comment on above: Result Comment: Triglyceride Guidelines: <150 Desirable 150-199 Borderline 200-499 High >499 Very high Based on AHA Guidelines for fasting triglyceride, July 2012. Performed By: #### L IPR #### [facility] [address] [place] [address] Search Consultant: Yogesh Lehman DO #### GLYHGB #### [address] [address] Search Consultant: Frank Otero MD CBC with Diffon 04-21-2022 Abs. Basophil 0.00 k/uL Normal 0.0-0.2 [facility] Comment on above: Performed By: #### A LCB, CDP, CMPX #### [facility] [address] [place] [address] Search Consultant: Yogesh Lehman DO Abs.Neutrophil (Seg) 4.60 k/uL Normal 1.3-9.1 [facility] Comment on above: Performed By: #### A LCB, CDP, CMPX #### [facility] [address] [place] [address] Search Consultant: Yogesh Lehman DO Basophils/100 WBC (Bld) 1 % Normal 0-2 [facility] Comment on above: Performed By: #### A SILVANO CDP, CMPX #### [facility] [address] [place] [address] Search Consultant: Yogesh Lehman DO Eosinophils (Bld) [#/Vol] 0.10 10*3/uL Normal 0.0-0.4 [facility] Comment on above: Performed By: #### A SUSHILB, CDP, CMPX #### [facility] [address] [place] [address] Search Consultant: Yogesh Lehman DO Eosinophils/100 WBC (Bld) 1 % Normal 0-4 [facility] Comment on above: Performed By: #### A SILVANO, MARA, CMPX #### [facility] [address] [place] [address] Search Consultant: Yogesh Lehman DO Erythrocyte distribution width (RBC) [Ratio] 13.2 % Normal 11.5-14.9 [facility] Comment on above: Performed By: #### A SILVANO, MARA, CMPX #### [facility] [address] [place] [address] Search Consultant: Yogesh Lehman DO Hematocrit (Bld) [Volume fraction] 50.0 % Normal 41-53 [facility] Comment on above: Performed By: #### A SILVANO, CDP, CMPX #### [facility] [address] [place] [address] Search Consultant: Yogesh Lehman DO Hemoglobin (Bld) [Mass/Vol] 18.0 g/dL High 13.5-17.5 [facility] Comment on above: Performed By: #### A SUSHILB, CDP, CMPX #### [facility] [place] [address] Search Consultant: Yogesh Lehman DO Lymphocytes (Bld) [#/Vol] 2.00 10*3/uL Normal 1.0-4.8 [facility] Comment on above: Performed By: #### A LCB, CDP, CMPX #### [facility] [address] [place] [address] Search Consultant: Yogesh Lehman DO Lymphocytes/100 WBC (Bld) 29 % Normal 25-45 [facility] Comment on above: Performed By: #### A MARA SCHAEFER, CMPX #### [facility] [address] [place] [address] Search Consultant: Yogesh Lehman DO MCH (RBC) [Entitic mass] 32.3 pg Normal 26-34 [facility] Comment on above: Performed By: #### A SILVANO, MARA, CMPX #### [facility] [address] [place] [address] Search Consultant: Yogesh Lehman DO MCHC (RBC) [Mass/Vol] 36.1 g/dL Normal 31-37 [facility] Comment on above: Performed By: #### A MARA SCHAEFER, CMPX #### [facility] [address] [place] [address] Search Consultant: Yogehs Lehman DO MCV (RBC) [Entitic vol] 89.6 fL Normal 80-100 M [facility] Comment on above: Performed By: #### A MARA SCHAEFER, CMPX #### [facility] [address] [place] [address] Search Consultant: Yogesh Lehman DO Monocytes (Bld) [#/Vol] 0.40 10*3/uL Normal 0.1-1.3 [facility] Comment on above: Performed By: #### A SILVANO, CDP, CMPX #### [facility] [place] [address] Search Consultant: Yogesh Lehman DO Monocytes/100 WBC (Bld) 5 % Normal 2-8 M [facility] Comment on above: Performed By: #### A SILVANO, MAAR, CMPX #### [facility] [address] [place] [address] Search Consultant: Yogesh Lehman DO Neutrophil (Seg) 64 % Normal 34-64 [facility] Comment on above: Performed By: #### A MARA SCHAEFER, CMPX #### [facility] [address] [place] [address] Search Consultant: Yogesh Lehman DO Platelet mean volume (Bld) [Entitic vol] 7.9 fL Normal 6.0-12.0 [facility] Comment on above: Performed By: #### A MARA SCHAEFER, CMPX #### [facility] [address] [place] [address] Search Consultant: Yogesh Lehman DO Platelets (Bld) [#/Vol] 213 10*3/uL Normal 150-450 [facility] Comment on above: Performed By: #### A SILVANO, MARA, CMPX #### [facility] [address] [place] [address] Search Consultant: Yogesh Lehman DO RBC (Bld) [#/Vol] 5.58 10*6/uL Normal 4.5-5.9 [facility] Comment on above: Performed By: #### A SILVANO, MARA, CMPX #### [facility] [address] [place] [address] Search Consultant: Yogesh Lehman DO WBC (Bld) [#/Vol] 7.1 10*3/uL Normal 4.5-13.5 [facility] Comment on above: Performed By: #### A MARA SCHAEFER, CMPX #### [facility] [address] [place] [address] Search Consultant: Yogesh Lehman DO Comp Metabolic Pr/rfx MGon 0 04-21-2022 ALT [Catalytic activity/Vol] U/L Low 5-41 [facility] Comment on above: Performed By: #### A MARA SCHAEFER, CMPX #### [facility] [address] [place] [address] Search Consultant: Yogesh Lehman DO (cont.) Normal [facility] Comment on above: Result Comment: Aver age GFR for 20-29 years old: 116 mL/min/1.73sq m Chronic Kidney Disease: <60 mL/min/1.73sq m Kidney failure: <15 mL/min/1.73sq m eGFR calculated using average adult body mass. Additional eGFR calculator available at: http://www.[employer]multiple_crcl_2012.htm Performed By: #### A MARA SCHAEFER, CMPX #### [facility] [address] [place] [address] Search Consultant: Yogesh Lehman DO Albumin [Mass/Vol] 4.9 g/dL Normal 3.5-5.2 [facility] Comment on above: Performed By: #### A SILVANO, MARA, CMPX #### [facility] [address] [facility] [place] [address] Search Consultant: Yogesh Lehman DO Alkaline Phos 50 U/L Normal 40-129 [facility] Comment on above: Performed By: #### A SILVANO, MARA, CMPX #### [facility] [address] [facility] [place] [address] Search Consultant: Yogesh Lehman DO Anion gap [Moles/Vol] 11 mmol/L Normal 9-17 [facility] Comment on above: Performed By: #### A MARA SCHAEFER, CMPX #### [facility] [address] [place] [address] Search Consultant: Yogesh Lehman DO AST [Catalytic activity/Vol] 21 U/L Normal <40 [facility] Comment on above: Performed By: #### A SILVANO, CDP, CMPX #### [facility] [address] [place] [address] Search Consultant: Yogesh Lehman DO Bilirubin [Mass/Vol] 0.71 mg/dL Normal 0.3-1.2 [facility] Comment on above: Performed By: #### A MARA SCHAEFER, CMPX #### [facility] [place] [address] Search Consultant: Yogesh Lehman DO Calcium [Mass/Vol] 9.6 mg/dL Normal 8.6-10.4 [facility] Comment on above: Performed By: #### A SILVANO, MARA, CMPX #### [facility] [address] [place] [address] Search Consultant: Yogesh Lehman DO Chloride [Moles/Vol] 101 mmol/L Normal 98-107 [facility] Comment on above: Performed By: #### A SILVANO, CDP, CMPX #### [facility] [address] [place] [address] Search Consultant: Yogesh Lehman DO CO2 [Moles/Vol] 26 mmol/L Normal 20-31 [facility] Comment on above: Performed By: #### A SILVANO, CDP, CMPX #### [facility] [address] [place] [address] Search Consultant: Yogesh Lehman DO Creatinine [Mass/Vol] 1.12 mg/dL Normal 0.70-1.20 [facility] Comment on above: Performed By: #### A MARA SCHAEFER, CMPX #### [facility] [address] [place] [address] Search Consultant: Yogesh Lehman DO GFR, Amer >60 Normal >60 [facility] Comment on above: Performed By: #### A SILVANO, MARA, CMPX #### [facility] [address] [facility] [place] [address] Search Consultant: Yogesh Lehman DO GFR,non Amer >60 Normal >60 [facility] Comment on above: Performed By: #### A MARA SCHAEFER, CMPX #### [facility] [address] [facility] [place] [address] Search Consultant: Yogesh Lehman DO Glucose [Mass/Vol] 118 mg/dL High 70-99 [facility] Comment on above: Performed By: #### A MARA SCHAEFER, CMPX #### [facility] [place] [address] Search Consultant: Yogesh Lehman DO Potassium [Moles/Vol] 4.1 mmol/L Normal 3.7-5.3 [facility] Comment on above: Performed By: #### A SILVANO, MARA, CMPX #### [facility] [address] [facility] [place] [address] Search Consultant: Yogesh Lehman DO Protein [Mass/Vol] 7.6 g/dL Normal 6.4-8.3 [facility] Comment on above: Performed By: #### A SILVANO, MARA, CMPX #### [facility] [address] [facility] [place] [address] Search Consultant: Yogesh Lehman DO Sodium [Moles/Vol] 138 mmol/L Normal 135-144 [facility] Comment on above: Performed By: #### A LCB, CDP, CMPX #### [facility] [address] [place] [address] Search Consultant: Yogesh Lehman DO Urea nitrogen [Mass/Vol] 18 mg/dL Normal 6-20 [facility] Comment on above: Performed By: #### A LCB, CDP, CMPX #### [facility] [address] [place] [address] Search Consultant: Yogesh Lehman DO Drug Scr, Abuse, Uron 2021 Amphetamine(s),Ur Negative Normal NEG [facility] Comment on above: Result Comment: (Positive cutoff 1000 ng/mL) Performed By: #### U AMIC, BRANDIN #### [facility] [address] [place] [address] Search Consultant: Yogesh Lehman DO Barbiturate(s),Ur Negative Normal NEG [facility] Comment on above: Result Comment: (Positive cutoff 200 ng/mL) Performed By: #### U AMIC, BRANDIN #### [facility] [address] [place] [address] Search Consultant: Yogesh Lehman DO Benzodiazepine(s) Negative Normal NEG [facility] Comment on above: Result Comment: (Positive cutoff 200 ng/mL) Performed By: #### U AMIC, BRANDIN #### [facility] [address] [place] [address] Search Consultant: Yogesh Lehman DO Cannabinoid(s),Ur Positive Abnormal NEG [facility] Comment on above: Result Comment: (Positive cutoff 50 ng/mL) Performed By: #### U AMIC, BRANDIN #### [facility] [address] [place] [address] Search Consultant: Yogesh Lehman DO Cocaine Metabolite Negative Normal NEG [facility] Comment on above: Result Comment: (Positive cutoff 300 ng/mL) Performed By: #### U AMIC, BRANDIN #### [facility] [address] [place] [address] Search Consultant: Yogesh Lehman DO Interpretive Info Assay provides medical screening only. The absence of expected drug(s) and/or Normal [facility] Comment on above: Result Comment: meta bolite(s) may indicate diluted or adulterated urine, limitations of testing or timing of collection. Testing for legal purposes should be confirmed by another method. To request confirmation of test result, please call the lab within 7 days of sample submission. Performed By: #### U AMIC, BRANDIN #### [facility] [address] [place] [address] Search Consultant: Yogesh Lehman DO Methadone Ql (U) Negative Normal NEG [facility] Comment on above: Result Comment: (Positive cutoff 300 ng/mL) Performed By: #### U AMIC, BRANDIN #### [facility] [address] [place] [address] Search Consultant: Yogesh Lehman DO Opiate(s), Ur Negative Normal NEG [facility] Comment on above: Result Comment: (Positive cutoff 300 ng/mL) Performed By: #### U AMIC, BRANDIN #### [facility] [address] [place] [address] Search Consultant: Yogesh Lehman DO Oxycodone, Urine Negative Normal NEG [facility] Comment on above: Result Comment: (Positive cutoff 100 ng/mL) Performed By: #### U AMIC, BRANDIN #### [facility] [address] [place] [phone] Search Consultant: Yogesh Lehman DO Phencyclidine, Ur Negative Normal NEG [facility] Comment on above: Result Comment: (Positive cutoff 25 ng/mL) Performed By: #### U CHANNING BRANDIN #### [facility] [place] [address] Search Consultant: Yogesh Lehman DO Ethanol Alcoholon 04-21-2022 Ethanol [Mass/Vol] mg/dL Normal <10 [facility] Comment on above: Performed By: #### A LCB, CDP, CMPX #### [facility] [address] [place] [address] 287[address] Search Consultant: Yogesh Lehman DO Ethanol percent <0.010 [facility] Comment on above: Performed By: #### A LCB, CDP, CMPX #### [facility] [address] [place] [phone] Search Consultant: Yogesh Lehman DO Urinalysis w/ Microon 2021 Bacteria None Normal NONE [facility] Comment on above: Performed By: #### U CHANNING BRANDIN #### [facility] [address] [place] [phone] Search Consultant: Yogesh Lehman DO Bilirubin, SemiQt,Ur Negative Normal NEG [facility] Comment on above: Performed By: #### U AMIDaniel BRANDIN #### [facility] [address] [place] [address] 64[address] Search Consultant: Yogesh Lehman DO Blood, Urine Negative Normal NEG [facility] Comment on above: Performed By: #### U AMIDaniel BRANDIN #### [facility] [address] [place] [address] 17048 Search Consultant: Yogesh Lehman DO Casts 0 TO 2 [facility] Comment on above: Performed By: #### U AMIC, BRANDIN #### [facility] [address] [place] [address] Search Consultant: Yogesh Lehman DO Clarity (U) Turbid Abnormal CLEAR [facility] Comment on above: Performed By: #### U AMIC, BRANDIN #### [facility] [place] [address] Search Consultant: Yogesh Lehman DO Color (U) Yellow Normal YEL [facility] Comment on above: Performed By: #### U AMIDaniel, BRANDIN #### [facility] [address] [place] [address] [phone] Search Consultant: Yogesh Lehman DO Epithelial cells LM Ql (Urine sed) 0 TO 2 Normal [facility] Comment on above: Performed By: #### U CHANNING, BRANDIN #### [facility] [address] [place] [address] Search Consultant: Yogesh Lehman DO Glucose Ql (U) Negative Normal NEG [facility] Comment on above: Performed By: #### U AMIDaniel, BRANDIN #### [facility] [place] [address] Search Consultant: Yogesh Lehman DO Ketones Ql (U) TRACE Abnormal NEG [facility] Comment on above: Performed By: #### U AMIDaniel, BRANDIN #### [facility] [place] [address] Search Consultant: Ygoesh Lehman DO Leukocyte esterase Test strip Ql (U) Negative Normal NEG [facility] Comment on above: Performed By: #### U AMIDaniel, BRANDIN #### [facility] [address] [place] [address] 237[address] Search Consultant: Fanelly, Yogesh, DO Nitrite,Ur Negative Normal NEG [facility] Comment on above: Performed By: #### U AMIC, BRANDIN #### [facility] [place] [address] Search Consultant: Yogesh Lehman DO PH,Ur 7.0 Normal 5.0-8.0 [facility] Comment on above: Performed By: #### U AMIC, BRANDIN #### [facility] [address] [place] [address] Search Consultant: Yogesh Lehman DO Protein Ql (U) Negative Normal NEG [facility] Comment on above: Performed By: #### U AMIC, BRANDIN #### [facility] [address] [place] [address] 30604 Search Consultant: Yogesh Lehman DO Spec. [place],Ur 1.025 Normal 1.000-1.030 [facility] Comment on above: Performed By: #### U AMIC, BRANDIN #### [facility] [address] [place] [address] Search Consultant: Yogesh Lehman DO Urine RBC's 0 TO 2 Normal [facility] Comment on above: Performed By: #### U AMIC, BRANDIN #### [facility] [address] [place] [address] 8[address] Search Consultant: Yogesh Lehman DO Urine WBC's 0 TO 2 Normal [facility] Comment on above: Performed By: #### U AMIC, BRANDIN #### [facility] [address] [place] [address] Search Consultant: Yogesh Lehman DO Urobilinogen,Ur Normal Normal NORM [facility] Comment on above: Performed By: #### U AMIC, BRANDIN #### [facility] [address] [place] [address] Search Consultant: Yogesh Lehman DO Jeannine Galanatedon 08-09 Send Out Report SEE NOTE Normal [facility] Comment on above: Result Comment: (NOT [...] developed and its performance characteristics determined by [facility]. It has not been cleared or approved by the [place] Food and Drug Administration. Testing performed at [facility] [address] [place] [id number] CLIA [id number] Performed By: #### A TRAZO #### [facility] [address] [place] [address] Search Consultant: Kodak Akbar MD #### CMPX, EDTOX, LIP, CDP #### [address] [phone] Search Consultant: Frank Otero MD GADon 08-03-2020 AUGIE <5.0 Normal 0.0-5.0 [facility] Comment on above: Result Comment: (NOT E) INTERPRETIVE INFORMATION: Glutamic Acid Decarboxylase Antibody A value greater than 5.0 IU/mL is considered positive for Glutamic Acid Decarboxylase Antibody (AUGIE Ab). This assay is intended for the semi-quantitative determination of the AUGIE Ab in human serum. Results should be interpreted within the context of clinical symptoms. Performed By: [facility] [address] [place] [address] [employer] Developer: Zayda Ospina MD Performed By: #### A TRAZO #### [facility] [address] [place] [address] Search Consultant: Kodak Akbar MD #### CMPX, MELLISSATOX, LIP, CDP #### [facility] [address] [place] [address] Search Consultant: Frank Otero MD AUGIE-65 AUTOANTIBODYon 2019 Glutamic Acid Decarb Ab <5.0 M [place], [place] Comment on above: (NOTE) INTERPRETIVE INFORMATION: Glutamic Acid Decarboxylase Antibody A value greater than 5.0 IU/mL is considered positive for Glutamic Acid Decarboxylase Antibody (AUGIE Ab). This assay is intended for the semi-quantitative determination of the AUGIE Ab in human serum. Results should be interpreted within the context of clinical symptoms. Performed By: [facility] [address] [place], [place] [id number] [employer] Developer: Zayda Ospina MD Hemoglobin A1Con 08-03-2020 Glucose [Mass/Vol] 203 mg/dL [place], [place] Comment on above: The ADA and AACC rec ommend providing the estimated average glucose result to permit better patient understanding of their HBA1c result. HbA1c (Bld) [Mass fraction] 8.7 % High 4 - 6 % [place], [place] Interpretation and review of laboratory results Abnormal [place] POC Glucose Fingerstickon Glucose [Mass/Vol] 205 mg/dL High 75 - 110 mg/dL [place] Interpretation and review of laboratory results Abnormal [place] TRAZADONEon 08-03-2020 Trazadone 1.62 ug/mL 0.5 - 2.5 ug/mL [place] Comment on above: (NOTE) INTERPRETIVE INFORMATION: Trazodone Therapeutic Range: 0.50 - 2.50 ug/mL Toxic: Greater than 4.00 ug/mL Adverse effects may include sedation, fatigue, headache, blurred vision and nausea. See Compliance Statement B: [employer] Performed By: [facility] [address] [place] [phone] [employer] Developer: Zayda Ospina MD Trazadonisabelle 08-03-2020 TRAZOA >6.00 High 0.50-2.50 [facility] Comment on above: Result Comment: (NOT E) INTERPRETIVE INFORMATION: Trazodone Therapeutic Range: 0.50 - 2.50 ug/mL Toxic: Greater than 4.00 ug/mL Adverse effects may include sedation, fatigue, headache, blurred vision and nausea. See Compliance Statement B: [employer] Performed By: [facility] [address] [place] [address] [employer] Developer: Zayda Ospina MD Performed By: #### A TRAZO #### [place] [address] Search Consultant: Kodak Akbar MD #### CMPX, EDTOX, LIP, CDP #### [address] [address] Search Consultant: Frank Otero MD TRAZOA 1.62 ug/mL Normal 0.50-2.50 [facility] Comment on above: Result Comment: (NOT E) INTERPRETIVE INFORMATION: Trazodone Therapeutic Range: 0.50 - 2.50 ug/mL Toxic: Greater than 4.00 ug/mL Adverse effects may include sedation, fatigue, headache, blurred vision and nausea. See Compliance Statement B: [employer] Performed By: [facility] [address] [place] [address] [employer] Developer: Zayda Ospina MD Performed By: #### A TRAZO #### [place] [address] Search Consultant: Kodak Akbar MD #### CMPX, EDTOX, LIP, CDP #### [address] [address] Search Consultant: Frank Otero MD Basic Metab w/rfx MGon 08-01 (cont.) Normal [facility] Comment on above: Result Comment: Aver age GFR for <20 years old not available. Chronic Kidney Disease: <60 mL/min/1.73sq m Kidney failure: <15 mL/min/1.73sq m eGFR calculated using average adult body mass. Additional eGFR calculator available at: http://www.[employer].com/multiple_crcl_2012.htm Performed By: #### A TRAZO #### [facility] [address] [place] [address] Search Consultant: Kodak Akbar MD #### CMPX, EDTOX, LIP, CDP #### [address] [address] Search Consultant: Frank Otero MD GFR,non Amer Pediatric GFR requires additional information. Refer to NKDEP website for Normal >60 [facility] Comment on above: Result Comment: calc ulator. Performed By: #### A TRAZO #### [facility] [address] [place] [address] Search Consultant: Kodak Akbar MD #### CMPX, EDTOX, LIP, CDP #### [address] [address] Search Consultant: Frank Otero MD BUN/CRE Ratio NOT REPORTED Normal 9-20 [facility] Comment on above: Performed By: #### A TRAZO #### [facility] [address] [place] [address] Search Consultant: Kodak Akbar MD #### CMPX, EDTOX, LIP, CDP #### [address] [address] Search Consultant: Frank Otero MD GFR, Amer NOT REPORTED Normal >60 [facility] Comment on above: Performed By: #### A TRAZO #### [facility] [address] [place] [address] Search Consultant: Kodak Akbar MD #### CMPX, EDTOX, LIP, CDP #### [address] [address] Search Consultant: Frank Otero MD Staging: NOT REPORTED Normal [facility] Comment on above: Performed By: #### A TRAZO #### [facility] [address] [place], [place] [id number] Search Consultant: Kodak Akbar MD #### CMPX, EDTOX, LIP, CDP #### [address] [phone] Search Consultant: Frank Otero MD Anion gap [Moles/Vol] 13 mmol/L Normal 9-17 [place], [place] Comment on above: Performed By: #### A TRAZO #### [facility] [address] [place] [address] Search Consultant: Kodak Akbar MD #### CMPX, EDTOX, LIP, CDP #### [address] [phone] Search Consultant: Frank Otero MD Calcium [Mass/Vol] 9.3 mg/dL Normal 8.6-10.4 [place] Comment on above: Performed By: #### A TRAZO #### [facility] [address] [place], [place] [id number] Search Consultant: Kodak Akbar MD #### CMPX, EDTOX, LIP, CDP #### [address] [phone] Search Consultant: Frank Otero MD Chloride [Moles/Vol] 104 mmol/L Normal 98-107 [place], [place] Comment on above: Performed By: #### A TRAZO #### [facility] [address] [place], [place] [id number] Search Consultant: Kodak Akbar MD #### CMPX, EDTOX, LIP, CDP #### [address] [address] Search Consultant: Frank Otero MD CO2 [Moles/Vol] 23 mmol/L Normal 20-31 [place] Comment on above: Performed By: #### A TRAZO #### [facility] [address] [place], [place] [id number] Search Consultant: Kodak Akbar MD #### CMPX, EDTOX, LIP, CDP #### [facility] [address] [place] [address] [phone] Search Consultant: Frank Otero MD Creatinine [Mass/Vol] 0.92 mg/dL Normal 0.70-1.20 [place], [place] Comment on above: Performed By: #### A TRAZO #### [facility] [address] [place], [place] [id number] Search Consultant: Kodak Akbar MD #### CMPX, EDTOX, LIP, CDP #### [address] [address] Search Consultant: Frank Otero MD Glucose [Mass/Vol] 185 mg/dL High 70-99 [place], [place] Comment on above: Performed By: #### A TRAZO #### [facility] [address] [place], [place] [id number] Search Consultant: Kodak Akbar MD #### CMPX, EDTOX, LIP, CDP #### [address] [address] Search Consultant: Frank Otero MD Potassium [Moles/Vol] 4.1 mmol/L Normal 3.7-5.3 [place] Comment on above: Performed By: #### A TRAZO #### [facility] [address] [place] [address] Search Consultant: Kodak Akbar MD #### CMPX, EDTOX, LIP, CDP #### [facility] [address] [place] [address] [phone] Search Consultant: Frank Otero MD Sodium [Moles/Vol] 140 mmol/L Normal 135-144 [place], [place] Comment on above: Performed By: #### A TRAZO #### [facility] [address] [place] [address] Search Consultant: Kodak Akbar MD #### CMPX, EDTOX, LIP, CDP #### [address] [phone] Search Consultant: Frank Otero MD Urea nitrogen [Mass/Vol] 12 mg/dL Normal 6-20 [place] Comment on above: Performed By: #### A TRAZO #### [facility] [address] [place] [address] Search Consultant: Kodak Akbar MD #### CMPX, EDTOX, LIP, CDP #### [address] [phone] Search Consultant: Frank Otero MD CBC with Diffon 08-01-2020 Abs. Basophil 0.05 k/uL Normal 0.00-0.20 [facility] Comment on above: Performed By: #### A TRAZO #### [facility] [address] [place], [place] [id number] Search Consultant: Kodak Akbar MD #### CMPX, EDTOX, LIP, CDP #### [address] [phone] Search Consultant: Frank Otero MD Abs.Imm.Granulocyte 0.03 k/uL Normal 0.00-0.30 [facility] Comment on above: Performed By: #### A TRAZO #### [facility] [address] [place], [place] [id number] Search Consultant: Kodak Akbar MD #### CMPX, EDTOX, LIP, CDP #### [address] [phone] Search Consultant: Frank Otero MD Abs.Neutrophil (Seg) 2.38 k/uL Normal 1.80-8.00 [facility] Comment on above: Performed By: #### A TRAZO #### [facility] [address] [place] [address] Search Consultant: Kodak Akbar MD #### CMPX, EDTOX, LIP, CDP #### [address] [phone] Search Consultant: Frank Otero MD Basophils/100 WBC (Bld) 1 % Normal 0-2 [facility] Comment on above: Performed By: #### A TRAZO #### [facility] [address] [place] [address] Search Consultant: Kodak Akbar MD #### CMPX, EDTOX, LIP, CDP #### [address] [phone] Search Consultant: Frank Otero MD Eosinophils (Bld) [#/Vol] 0.08 10*3/uL Normal 0.00-0.44 [facility] Comment on above: Performed By: #### A TRAZO #### [facility] [address] [place] [address] Search Consultant: Kodak Akbar MD #### CMPX, EDTOX, LIP, CDP #### [address] [phone] Search Consultant: Frank Otero MD Eosinophils/100 WBC (Bld) 2 % Normal 1-4 [facility] Comment on above: Performed By: #### A TRAZO #### [facility] [address] [place] [address] Search Consultant: Kodak Akbar MD #### CMPX, EDTOX, LIP, CDP #### [address] [phone] Search Consultant: Frank Otero MD Erythrocyte distribution width (RBC) [Ratio] 12.6 % Normal 11.8-14.4 [facility] Comment on above: Performed By: #### A TRAZO #### [facility] [address] [place], [place] [id number] Search Consultant: Kodak Akbar MD #### CMPX, EDTOX, LIP, CDP #### [address] [phone] Search Consultant: Frank Otero MD Hematocrit (Bld) [Volume fraction] 46.5 % Normal 40.7-50.3 [facility] Comment on above: Performed By: #### A TRAZO #### [facility] [address] [place], [place] [id number] Search Consultant: Kodak Akbar MD #### CMPX, EDTOX, LIP, CDP #### [place] [address] Search Consultant: Frank Otero MD Hemoglobin (Bld) [Mass/Vol] 16.0 g/dL Normal 13.0-17.0 [facility] Comment on above: Performed By: #### A TRAZO #### [facility] [address] [place] [address] [phone] Search Consultant: Kodak Akbar MD #### CMPX, EDTOX, LIP, CDP #### [address] [phone] Search Consultant: Frank Otero MD Immature granulocytes (Bld) [#/Vol] 1 % High 0 [facility] Comment on above: Performed By: #### A TRAZO #### [facility] [address] [place], [place] [id number] Search Consultant: Kodak Akbar MD #### CMPX, EDTOX, LIP, CDP #### [address] [phone] Search Consultant: Frank Otero MD Lymphocytes (Bld) [#/Vol] 1.81 10*3/uL Normal 1.20-5.20 [facility] Comment on above: Performed By: #### A TRAZO #### [facility] [address] [place], [place] [id number] Search Consultant: Kodak Akbar MD #### CMPX, EDTOX, LIP, CDP #### [address] [phone] Search Consultant: Frank Otero MD Lymphocytes/100 WBC (Bld) 38 % Normal 25-45 [facility] Comment on above: Performed By: #### A TRAZO #### [address] [address] Search Consultant: Kodak Akbar MD #### CMPX, EDTOX, LIP, CDP #### [address] [address] Search Consultant: Frank Otero MD MCH (RBC) [Entitic mass] 31.6 pg Normal 25.2-33.5 [facility] Comment on above: Performed By: #### A TRAZO #### [address] [address] Search Consultant: Kodak Abkar MD #### CMPX, EDTOX, LIP, CDP #### [address] [address] Search Consultant: Frank Otero MD MCHC (RBC) [Mass/Vol] 34.4 g/dL Normal 28.4-34.8 [facility] Comment on above: Performed By: #### A TRAZO #### [facility] [address] [place] [address] Search Consultant: Kodak Akbar MD #### CMPX, EDTOX, LIP, CDP #### [address] [address] Search Consultant: Frank Otero MD MCV (RBC) [Entitic vol] 91.7 fL Normal 82.6-102.9 [facility] Comment on above: Performed By: #### A TRAZO #### [facility] [address] [place] [address] Search Consultant: Kodak Akbar MD #### CMPX, EDTOX, LIP, CDP #### [address] [address] Search Consultant: Frank Otero MD Monocytes (Bld) [#/Vol] 0.47 10*3/uL Normal 0.10-1.40 [facility] Comment on above: Performed By: #### A TRAZO #### [facility] [address] [place], [place] [id number] Search Consultant: Kodak Akbar MD #### CMPX, EDTOX, LIP, CDP #### [address] [address] Search Consultant: Frank Otero MD Monocytes/100 WBC (Bld) 10 % High 2-8 [facility] Comment on above: Performed By: #### A TRAZO #### [facility] [address] [place] [address] Search Consultant: Kodak Akbar MD #### CMPX, EDTOX, LIP, CDP #### [address] [address] Search Consultant: Frank Otero MD Neutrophil (Seg) 49 % Normal 34-64 [facility] Comment on above: Performed By: #### A TRAZO #### [facility] [address] [place] [address] Search Consultant: Kodak Akbar MD #### CMPX, EDTOX, LIP, CDP #### [address] [phone] Search Consultant: Frank Otero MD NRBC Automated 0.0 per 100 WBC Normal 0.0 [facility] Comment on above: Performed By: #### A TRAZO #### [facility] [address] [place] [address] Search Consultant: Kodak Akbar MD #### CMPX, EDTOX, LIP, CDP #### [address] [phone] Search Consultant: Frank Otero MD Platelet mean volume (Bld) [Entitic vol] 10.5 fL Normal 8.1-13.5 [facility] Comment on above: Performed By: #### A TRAZO #### [facility] [address] [place] [address] Search Consultant: Kodak Akbar MD #### CMPX, EDTOX, LIP, CDP #### [address] [phone] Search Consultant: Frank Otero MD Platelets (Bld) [#/Vol] 141 10*3/uL Normal 138-453 [facility] Comment on above: Performed By: #### A TRAZO #### [facility] [address] [place] [address] Search Consultant: Kodak Akbar MD #### CMPX, EDTOX, LIP, CDP #### [address] [phone] Search Consultant: Frank Otero MD RBC (Bld) [#/Vol] 5.07 10*6/uL Normal 4.21-5.77 [facility] Comment on above: Performed By: #### A TRAZO #### [facility] [address] [place] [address] Search Consultant: Kodak Akbar MD #### CMPX, EDTOX, LIP, CDP #### [facility] [address] [place] [address] Search Consultant: Frank Otero MD WBC (Bld) [#/Vol] 4.8 10*3/uL Normal 4.5-13.5 [facility] Comment on above: Performed By: #### A TRAZO #### [facility] [address] [place] [address] Search Consultant: Kodak Akbar MD #### CMPX, EDTOX, LIP, CDP #### [address] [address] Search Consultant: Frank Otero MD Auto Diff Performed NOT REPORTED Normal [facility] Comment on above: Performed By: #### A TRAZO #### [facility] [address] [place] [address] Search Consultant: Kodak Akbar MD #### CMPX, EDTOX, LIP, CDP #### [address] [address] Search Consultant: Frank Otero MD Platelets (Bld) [#/Vol] NOT REPORTED Normal [facility] Comment on above: Performed By: #### A TRAZO #### [facility] [address] [place] [address] Search Consultant: Kodak Akbar MD #### CMPX, EDTOX, LIP, CDP #### [facility] [address] [place] [address] Search Consultant: Frank Otero MD RBC morphology finding Nom (Bld) NOT REPORTED Normal [facility] Comment on above: Performed By: #### A TRAZO #### [facility] [address] [place] [address] Search Consultant: Kodak Akbar MD #### CMPX, EDTOX, LIP, CDP #### [address] [place] [address] Search Consultant: Frank Otero MD WBC Morphology NOT REPORTED Normal [facility] Comment on above: Performed By: #### A TRAZO #### [facility] [address] [place] [address] Search Consultant: Kodak Akbar MD #### CMPX, EDTOX, LIP, CDP #### [facility] [address] [place] [address] Search Consultant: Frank Otero MD Hematologyon 08-01-2020 Basophils (Bld) [#/Vol] 0.05 10*3/uL [place] Basophils/100 WBC (Bld) 1 % 0 - 2 % [place], [place] Eosinophils (Bld) [#/Vol] 0.08 10*3/uL [place] Eosinophils/100 WBC (Bld) 2 % 1 - 4 % [place] Hematocrit (Bld) [Volume fraction] 46.5 % 40.7 - 50.3 % [place] Hemoglobin (Bld) [Mass/Vol] 16.0 g/dL 13 - 17 g/dL [place] Lymphocytes (Bld) [#/Vol] 1.81 10*3/uL [place] Lymphocytes/100 WBC (Bld) 38 % 25 - 45 % [place] MCH (RBC) [Entitic mass] 31.6 pg 25.2 - 33.5 pg [place] MCV (RBC) [Entitic vol] 91.7 fL 82.6 - 102.9 fL [place] Monocytes (Bld) [#/Vol] 0.47 10*3/uL [place] Monocytes/100 WBC (Bld) 10 % High 2 - 8 % [place], [place] Platelets (Bld) [#/Vol] NOT REPORTED [place] Platelets (Bld) [#/Vol] 141 10*3/uL [place] RBC (Bld) [#/Vol] 5.07 10*6/uL 4.21 - 5.7 7 m/uL [place] RBC morphology finding Nom (Bld) NOT REPORTED [place] WBC (Bld) [#/Vol] 4.8 10*3/uL [place] WBC (Bld) [#/Vol] 0.0 10*3/uL 0.0 per 10 0 WBC [place] Liver Profileon 08-01-2020 Alkaline Phos 42 U/L Normal 40-129 [facility] Comment on above: Performed By: #### A TRAZO #### [facility] [address] [place], [place] [id number] Search Consultant: Kodak Akbar MD #### CMPX, EDTOKatalina, LIP, CDP #### [facility] [address] [place] [address] [phone] Search Consultant: Frank Otero MD Globulin (S) [Mass/Vol] NOT REPORTED Normal 1.5-3.8 [facility] Comment on above: Performed By: #### A TRAZO #### [facility] [address] [place] [address] Search Consultant: Kodak Akbar MD #### CMPX, EDTOX, LIP, CDP #### [facility] [address] [place] [address] [phone] Search Consultant: Frank Otero MD Albumin [Mass/Vol] 4.2 g/dL Normal 3.5-5.2 [place] Comment on above: Performed By: #### A TRAZO #### [facility] [address] [place] [address] Search Consultant: Kodak Akbar MD #### CMPX, EDTOX, LIP, CDP #### [facility] [address] [place] [address] [phone] Search Consultant: Frank Otero MD Albumin/Globulin [Mass ratio] 1.9 {ratio} Normal 1.0-2.5 [place], [place] Comment on above: Performed By: #### A TRAZO #### [facility] [address], [place] [id number] Search Consultant: Kodak Akbar MD #### CMPX, EDTOX, LIP, CDP #### [address] [phone] Search Consultant: Frank Otero MD ALT [Catalytic activity/Vol] 20 U/L Normal 5-41 [place], [place] Comment on above: Performed By: #### A TRAZO #### [facility] [address] [place], [place] [id number] Search Consultant: Kodak Akbar MD #### CMPX, EDTOX, LIP, CDP #### [address] [phone] Search Consultant: Frank Otero MD AST [Catalytic activity/Vol] 15 U/L Normal <40 [place], [place] Comment on above: Performed By: #### A TRAZO #### [facility] [address] [place], [place] [id number] Search Consultant: Kodak Akbar MD #### CMPX, EDTOX, LIP, CDP #### [address] [phone] Search Consultant: Frank Otero MD Bilirubin Ql (U) 0.56 mg/dL Normal 0.3-1.2 [place], [place] Comment on above: Performed By: #### A TRAZO #### [facility] [address] [place], [place] [id number] Search Consultant: Kodak Akbar MD #### CMPX, EDTOX, LIP, CDP #### [address] [phone] Search Consultant: Frank Otero MD Bilirubin, Indirect 0.43 mg/dL Normal 0.00-1.00 [place], [place] Comment on above: Performed By: #### A TRAZO #### [facility] [address] [place], [place] [id number] Search Consultant: Kodak Akbar MD #### CMPX, EDTOX, LIP, CDP #### [facility] [address] [place] [address] [phone] Search Consultant: Frank Otero MD Bilirubin.direct [Mass/Vol] 0.13 mg/dL Normal <0.31 [place], [place] Comment on above: Performed By: #### A TRAZO #### [facility] [address] [place], [place] [id number] Search Consultant: Kodak Akbar MD #### CMPX, EDTOX, LIP, CDP #### [facility] [address] [place] [address] [phone] Search Consultant: Frank Otero MD Protein [Mass/Vol] 6.4 g/dL Normal 6.4-8.3 [place], [place] Comment on above: Performed By: #### A TRAZO #### [facility] [address] [place] [address] Search Consultant: Kodak Akabr MD #### CMPX, EDTOX, LIP, CDP #### [address] [id number] Search Consultant: Frank Otero MD Metabolic Panelon 08-01-2020 ALP [Catalytic activity/Vol] 42 U/L 40 - 129 U/L [place] GFR/1.73 sq M predicted among non-blacks MDRD (S/P/Bld) [Vol rate/Area] [place], [place] Comment on above: Average GFR for <20 years old not available. Chronic Kidney Disease: <60 mL/min/1.73sq m Kidney failure: <15 mL/min/1.73sq m eGFR calculated using average adult body mass. Additional eGFR calculator available at: http://www.[employer]multiple_crcl_2012.htm GFR/1.73 sq M predicted among non-blacks MDRD (S/P/Bld) [Vol rate/Area] NOT REPORTED [place] Otheron 08-01-2020 SARS-CoV-2, Total Negative NEGATIVE [place] Comment on above: Negative results do [...] authorized laboratories. Fact sheet for Healthcare Providers: https://www.fda.gov/media/876419/download Fact sheet for Patients: https://www.fda.gov/media/714821/download METHODOLOGY: ECIA SARS-CoV-2 [place] SARS-CoV-2, Rapid Not Detected Not Detected [place], [place] Comment on above: Rapid NAAT: The [...] management decisions. Fact sheet for Healthcare Providers: https://www.fda.gov/media/335628/download Fact sheet for Patients: https://www.fda.gov/media/121329/download Methodology: Isothermal Nucleic Acid Amplification Source .NASOPHARYNGEAL SWAB [place], [place] Bun/Cre Ratio NOT REPORTED [place] GFR NOT REPORTED >60 mL/min [place], [place] GFR Non- Pediatric GFR requires additional information. Refer to NKDEP website for calculator. >60 mL/min [place] Globulin (S) [Mass/Vol] NOT REPORTED 1.5 - 3.8 g/dL [place] Interpretation and review of laboratory results Abnormal [place] Differential Type NOT REPORTED [place] Erythrocyte distribution width (RBC) [Ratio] 12.6 % 11.8 - 14.4 % [place] Immature granulocytes (Bld) [#/Vol] 1 % High 0 [place] Immature granulocytes (Bld) [#/Vol] 0.03 10*3/uL [place] Interpretation and review of laboratory results Abnormal [place] MCHC (RBC) [Mass/Vol] 34.4 g/dL 28.4 - 34.8 g/dL [place] Platelet mean volume (Bld) [Entitic vol] 10.5 fL 8.1 - 13.5 fL [place], [place] Segmented neutrophils/100 WBC (Bld) 49 % 34 - 64 % [place] Segs Absolute 2.38 [place], [place] WBC Morphology NOT REPORTED [place], [place] POC Glucose Fingerstickon Glucose [Mass/Vol] 193 mg/dL High 75 - 110 mg/dL [place] Interpretation and review of laboratory results Abnormal [place] Glucose [Mass/Vol] 162 mg/dL High 75 - 110 mg/dL [place] Interpretation and review of laboratory results Abnormal [place] Glucose [Mass/Vol] 204 mg/dL High 75 - 110 mg/dL [place] Interpretation and review of laboratory results Abnormal [place] Glucose [Mass/Vol] 197 mg/dL High 75 - 110 mg/dL [place] Interpretation and review of laboratory results Abnormal [place] SARS-CoV-19 Abon 08-01-2020 SARS-CoV-19 Ab, Tot Negative Normal [facility] Comment on above: Result Comment: Negative [...] authorized laboratories. Fact sheet for Healthcare Providers: https://www.fda.gov/media/347640/download Fact sheet for Patients: https://www.fda.gov/media/673517/download METHODOLOGY: ECIA Performed By: #### A TRAZO #### [facility] [address] [place] [id number] Search Consultant: Kodak Akbar MD #### LADANX, FELICIA, LIP, CDP #### [address] [id number] Search Consultant: Frank Otero MD [id number] 08-01-2020 SARS-CoV-2 [facility] Comment on above: Performed By: #### A TRAZO #### [facility] [address] [place] [address] Search Consultant: Kodak Akbar MD #### CMPX, EDTOX, LIP, CDP #### [address] [phone] Search Consultant: Frank Otero MD SARS-CoV-2,Rapid Not Detected [facility] Comment on above: Result Comment: Rapid [...] management decisions. Fact sheet for Healthcare Providers: https://www.fda.gov/media/142751/download Fact sheet for Patients: https://www.fda.gov/media/025354/download Methodology: Isothermal Nucleic Acid Amplification Performed By: #### A TRAZO #### [facility] [address] [place] [address] Search Consultant: Kodak Akbar MD #### CMPX, EDTOX, LIP, CDP #### [address] [id number] Search Consultant: Frank Otero MD SARS-CoV-2 Source .NASOPHARYNGEAL SWAB Normal [facility] Comment on above: Performed By: #### A TRAZO #### [facility] [address] [place] [address] Search Consultant: Kodak Akbar MD #### CMPX, EDTOX, LIP, CDP #### [address] [id number] Search Consultant: Frank Otero MD Ammoniaon 07-31-2020 Ammonia (P) [Mass/Vol] 34 umol/L Normal 16-60 [place] Comment on above: Performed By: #### A TRAZO #### [facility] [address] [place] [address] Search Consultant: Kodak Akbar MD #### CMPX, EDTOX, LIP, CDP #### [address] [address] Search Consultant: Frank Otero MD Cardiacon 07-31-2020 Cholesterol in LDL [Mass/Vol] 78 mg/dL <100 [place], [place] Cholesterol [Mass/Vol] 139 mg/dL <200 [place] Comment on above: Cholesterol Guidelines: <200 Desirable 200-240 Borderline >240 Undesirable Cholesterol in HDL [Mass/Vol] 20 mg/dL Low >40 [facility], [place] Comment on above: HDL Guidelines: <40 Undesirable 40-59 Borderline >59 Desirable Cholesterol in LDL [Mass/Vol] 0 - 130 mg/dL [facility], [place] Comment on above: Calculation not alexis d for Triglyceride value greater than 400 mg/dL. Direct LDL reflexed LDL Guidelines: <100 Desirable 100-129 Near to/above Desirable 130-159 Borderline >159 Undesirable Direct (measured) LDL and calculated LDL are not interchangeable tests. Triglyceride [Mass/Vol] 406 mg/dL High <150 [facility], [place] Comment on above: Triglyceride Guidelines: <150 Desirable 150-199 Borderline 200-499 High >499 Very high Based on AHA Guidelines for fasting triglyceride, July 2012. EKG 12 Leadon 07-31-2020 Atrial Rate 87 BPM [facility], [place] Atrial Rate 86 BPM [facility] Atrial Rate 85 BPM [facility], [place] P Canova 76 degrees [facility], [place] P [place] 60 degrees [facility] P [place] 57 degrees [facility], [place] P-R Interval 150 ms [facility], [place] P-R Interval 142 ms [facility] P-R Interval 136 ms [facility] Q-T Interval 380 ms [facility] Q-T Interval 400 ms [facility] Q-T Interval 354 ms [facility] QRS Duration 86 ms [facility] QTc Calculation (Bazett) 454 ms [facility] QTc Calculation (Bazett) 481 ms [facility], [place] QTc Calculation (Bazett) 421 ms [facility], [place] R [place] 70 degrees [facility] 90 degrees [facility] [place] R [place] 65 degrees [facility] T [place] 42 degrees [facility] T [place] 44 degrees [facility]- [place] T [place] 63 degrees [facility], [place] Ventricular Rate 85 BPM [facility], [place] Ventricular Rate 87 BPM [facility] [place] Ventricular Rate 86 BPM [facility], [place] Sergey, Mhpn Incoming Ekg Results From [facility] - 07/31/2020 11:14 AM EDT Normal sinus rhythm Normal ECG When compared with ECG of 30-JUL-2020 13:41, Premature ventricular complexes are no longer Present [place], [place] Normal sinus rhythm Normal ECG When compared with ECG of 30-JUL-2020 13:41, Premature ventricular complexes are no longer Present [place] Sergey, Mhpn Incoming Ekg Results From [facility] - 07/31/2020 11:14 AM EDT Normal sinus rhythm Possible Left atrial enlargement Rightward axis Borderline ECG When compared with ECG of 30-JUL-2020 13:50, T wave amplitude has increased in Anterolateral leads [place] Sergey, Mhpn Incoming Ekg Results From [facility] - 07/31/2020 11:14 AM EDT Sinus rhythm with frequent Premature ventricular complexes in a pattern of bigeminy Otherwise normal ECG When compared with ECG of 30-JUL-2020 13:35, Vent. rate has increased BY 29 BPM QT has lengthened [place] Sinus rhythm with frequent Premature ventricular complexes in a pattern of bigeminy Otherwise normal ECG When compared with ECG of 30-JUL-2020 13:35, Vent. rate has increased BY 29 BPM QT has lengthened [place] Normal sinus rhythm Possible Left atrial enlargement Rightward axis Borderline ECG When compared with ECG of 30-JUL-2020 13:50, T wave amplitude has increased in Anterolateral leads [place] Atrial Rate 48 BPM [facility], [place] P [place]ova 46 degrees [facility] P-R Interval 130 ms [facility] Q-T Interval 418 ms [facility] QRS Duration 104 ms [place] QTc Calculation (Bazett) 410 ms [facility], [place] R [place]ova 80 degrees [facility], [place] T [place] 23 degrees [facility], [place] Ventricular Rate 58 BPM [facility], [place] Sergey, Mhpn Incoming Ekg Results From [facility] - 07/31/2020 11:14 AM EDT Sinus bradycardia with frequent Premature ventricular complexes Otherwise normal ECG No previous ECGs available [place] Sinus bradycardia with frequent Premature ventricular complexes Otherwise normal ECG No previous ECGs available [place] HEMOGLOBIN A1Con 07-31-2020 Glucose [Mass/Vol] 209 mg/dL [place] Comment on above: The ADA and AACC rec ommend providing the estimated average glucose result to permit better patient understanding of their HBA1c result. HbA1c (Bld) [Mass fraction] 8.9 % High 4 - 6 % [place] Interpretation and review of laboratory results Abnormal [place] HEPATIC FUNCTION PANELon Albumin [Mass/Vol] 4 g/dL 3.5 - 5.2 g/dL [place] Albumin/Globulin [Mass ratio] 2.1 {ratio} [place] ALP [Catalytic activity/Vol] 39 U/L Low 40 - 129 U/L [place] ALT [Catalytic activity/Vol] 18 U/L 5 - 41 U/L [place] AST [Catalytic activity/Vol] 15 U/L <40 [place] Bilirubin Ql (U) 0.52 mg/dL 0.3 - 1.2 mg/dL [place] Bilirubin, Indirect 0.39 mg/dL 0 - 1 mg/dL [place], [place] Bilirubin.direct [Mass/Vol] 0.13 mg/dL <0.31 [place] Globulin (S) [Mass/Vol] NOT REPORTED 1.5 - 3.8 g/dL [place] Interpretation and review of laboratory results Abnormal [place] Protein [Mass/Vol] 5.9 g/dL Low 6.4 - 8.3 g/dL [place] Hemoglobin A1Con 07-31-2020 HbA1c (Bld) [Mass fraction] 209 mg/dL Normal [facility] Comment on above: Result Comment: The ADA and AACC recommend providing the estimated average glucose result to permit better patient understanding of their HBA1c result. Performed By: #### A TRAZO #### [facility] [address] [place] [address] Search Consultant: Kodak Akbar MD #### CMPX, EDTOX, LIP, CDP #### [facility] [address] [place] [address] Search Consultant: Frank Otero MD HbA1c (Bld) [Mass fraction] 8.9 % High 4.0-6.0 [facility] Comment on above: Performed By: #### A TRAZO #### [facility] [address] [place], [place] [id number] Search Consultant: Kodak Akbar MD #### CMPX, EDTOX, LIP, CDP #### [address] [phone] Search Consultant: Frank Otero MD LDL Chol, Directon 0 LDL Chol, Direct 78 mg/dL Normal <100 [facility] Comment on above: Performed By: #### A TRAZO #### [facility] [address] [place] [address] Search Consultant: Kodak Akbar MD #### CMPX, EDTOX, LIP, CDP #### [address] [phone] Search Consultant: Frank Otero MD Lipid Profileon 07-31-2020 Cholesterol in LDL [Mass/Vol] Normal 0-130 [facility] Comment on above: Result Comment: Calc ulation not valid for Triglyceride value greater than 400 mg/dL. Direct LDL reflexed LDL Guidelines: <100 Desirable 100-129 Near to/above Desirable 130-159 Borderline >159 Undesirable Direct (measured) LDL and calculated LDL are not interchangeable tests. Performed By: #### T SHX, LIPR, GLYHGB, MISCR, LDLDIR #### [address] [phone] Search Consultant: Frank Otero MD Cholesterol [Mass/Vol] 139 mg/dL Normal <200 [facility] Comment on above: Result Comment: Cholesterol Guidelines: <200 Desirable 200-240 Borderline >240 Undesirable Performed By: #### T SHX, LIPR, GLYHGB, MISCR, LDLDIR #### [address] [phone] Search Consultant: Frank Otero MD Cholesterol in HDL [Mass/Vol] 20 mg/dL Low >40 [facility] Comment on above: Result Comment: HDL Guidelines: <40 Undesirable 40-59 Borderline >59 Desirable Performed By: #### T SHX, LIPR, GLYHGB, MISCR, LDLDIR #### [facility] [address] [place] [address] [phone] Search Consultant: Frank Otero MD Cholesterol.total/Marge sterol in HDL [Mass ratio] 7.0 {ratio} High <5 [facility] Comment on above: Performed By: #### T SHX, LIPR, GLYHGB, MISCR, LDLDIR #### [facility] [address] [place] [phone] Search Consultant: Frank Otero MD Triglyceride [Mass/Vol] 406 mg/dL High <150 [facility] Comment on above: Result Comment: Triglyceride Guidelines: <150 Desirable 150-199 Borderline 200-499 High >499 Very high Based on AHA Guidelines for fasting triglyceride, July 2012. Performed By: #### T SHX, LIPR, GLYHGB, MISCR, LDLDIR #### [facility] [address] [place] [id number] Search Consultant: Frank Otero MD Cholesterol in VLDL [Mass/Vol] NOT REPORTED Normal 1-30 [facility] Comment on above: Performed By: #### T SHX, LIPR, GLYHGB, MISCR, LDLDIR #### [facility] [address] [place] [phone] Search Consultant: Frank Otero MD Liver Profileon 07-31-2020 Albumin [Mass/Vol] 4.0 g/dL Normal 3.5-5.2 [facility] Comment on above: Performed By: #### A TRAZO #### [facility] [address] [place] [address] Search Consultant: Kodak Akbar MD #### CMPX, EDTOX, LIP, CDP #### [address] [address] Search Consultant: Frank Otero MD Albumin/Globulin [Mass ratio] 2.1 {ratio} Normal 1.0-2.5 [facility] Comment on above: Performed By: #### A TRAZO #### [facility] [address] [place] [address] Search Consultant: Kodak Akbar MD #### CMPX, EDTOX, LIP, CDP #### [address] [phone] Search Consultant: Frank Otero MD Alkaline Phos 39 U/L Low 40-129 [facility] Comment on above: Performed By: #### A TRAZO #### [facility] [address] [place], [place] [id number] Search Consultant: Kodak Akbar MD #### CMPX, EDTOX, LIP, CDP #### [address] [phone] Search Consultant: Frank Otero MD ALT [Catalytic activity/Vol] 18 U/L Normal 5-41 [facility] Comment on above: Performed By: #### A TRAZO #### [facility] [address] [place] [address] Search Consultant: Kodak Akbar MD #### CMPX, EDTOX, LIP, CDP #### [address] [phone] Search Consultant: Frank Otero MD AST [Catalytic activity/Vol] 15 U/L Normal <40 [facility] Comment on above: Performed By: #### A TRAZO #### [facility] [address] [place] [address] Search Consultant: Kodak Akbar MD #### CMPX, EDTOX, LIP, CDP #### [address] [phone] Search Consultant: Frank Otero MD Bilirubin Ql (U) 0.52 mg/dL Normal 0.3-1.2 [facility] Comment on above: Performed By: #### A TRAZO #### [facility] [address] [place] [place], [place] [id number] Search Consultant: Kodak Akbar MD #### CMPX, EDTOX, LIP, CDP #### [address] [phone] Search Consultant: Frank Otero MD Bilirubin, Indirect 0.39 mg/dL Normal 0.00-1.00 [facility] Comment on above: Performed By: #### A TRAZO #### [facility] [address] [place] [address] [phone] Search Consultant: Kodak Akbar MD #### CMPX, EDTOX, LIP, CDP #### [address] [phone] Search Consultant: Frank Otero MD Bilirubin.direct [Mass/Vol] 0.13 mg/dL Normal <0.31 [facility] Comment on above: Performed By: #### A TRAZO #### [facility] [address] [place] [address] [phone] Search Consultant: Kodak Akbar MD #### CMPX, EDTOX, LIP, CDP #### [address] [phone] Search Consultant: Frank Otero MD Protein [Mass/Vol] 5.9 g/dL Low 6.4-8.3 [facility] Comment on above: Performed By: #### A TRAZO #### [facility] [address] [place] [address] [phone] Search Consultant: Kodak Akbar MD #### CMPX, EDTOX, LIP, CDP #### [facility] [place] [address] Search Consultant: Frank Otero MD Globulin (S) [Mass/Vol] NOT REPORTED Normal 1.5-3.8 [facility] Comment on above: Performed By: #### A TRAZO #### [facility] [address] [place] [address] Search Consultant: Kodak Akbar MD #### CMPX, EDTOX, LIP, CDP #### [facility] [address] [place] [address] [phone] Search Consultant: Frank Otero MD [facility] Test Name [facility] [id number] QUANT Normal [facility] Comment on above: Performed By: #### A TRAZO #### [facility] [address] [place] [address] Search Consultant: Kodak Akbar MD #### CMPX, EDTOX, LIP, CDP #### [facility] [address] [place] [address] [phone] Search Consultant: Frank Otero MD [facility] 07-31-2020 Atrial Rate 81 BPM [facility] [place] [place] P [place] 69 degrees [facility] [place] P-R Interval 156 ms [facility] [place] Q-T Interval 350 ms [facility] [place] QRS Duration 104 ms [facility] [place] QTc Calculation (Bazett) 406 ms [facility] [place] R [place] 73 degrees [facility] [place] T [place] 54 degrees [facility] [place] Ventricular Rate 81 BPM [facility] [place] Sergey, Mhpn Incoming Ekg Results From [facility] - 07/31/2020 11:14 AM EDT Normal sinus rhythm Normal ECG When compared with ECG of 30-JUL-2020 13:50, No significant change was found [facility] Normal sinus rhythm Normal ECG When compared with ECG of 30-JUL-2020 13:50, No significant change was found [email or web address] [place] Cholesterol in VLDL [Mass/Vol] NOT REPORTED 1 - 30 mg/dL [place] Cholesterol.total/Marge sterol in HDL [Mass ratio] 7 {ratio} High <5 [place] Interpretation and review of laboratory results Abnormal [place] POC Glucose Fingerstickon Glucose [Mass/Vol] 239 mg/dL High 75 - 110 mg/dL [place] Interpretation and review of laboratory results Abnormal [place] Glucose [Mass/Vol] 213 mg/dL High 75 - 110 mg/dL [place] Interpretation and review of laboratory results Abnormal [place] Glucose [Mass/Vol] 190 mg/dL High 75 - 110 mg/dL [place] Interpretation and review of laboratory results Abnormal [place] Glucose [Mass/Vol] 160 mg/dL High 75 - 110 mg/dL [place] Interpretation and review of laboratory results Abnormal [place] TSH w/reflex to FT4on 2019 TSH Qn 4.89 m[IU]/L Normal 0.30-5.00 [facility] Comment on above: Performed By: #### T SHX, LIPR, GLYHGB, MISCR, LDLDIR #### [facility] [address] [place] [address] Search Consultant: Frank Otero MD Thyroidon 07-31-2020 TSH Qn 4.89 m[IU]/L [place] Blood Gason 07-30-2020 Oxygen saturation in Blood 100 % High 60 - 85 % [place] CBC Auto Differentialon Basophils (Bld) [#/Vol] 0.08 10*3/uL [place] Basophils/100 WBC (Bld) 1 % 0 - 2 % M [place] Differential Type NOT REPORTED [place] Eosinophils (Bld) [#/Vol] 0.07 10*3/uL [place] Eosinophils/100 WBC (Bld) 1 % 1 - 4 % [place] Erythrocyte distribution width (RBC) [Ratio] 12.6 % 11.8 - 14.4 % [place] Hematocrit (Bld) [Volume fraction] 53.6 % High 40.7 - 50.3 % [place] Hemoglobin (Bld) [Mass/Vol] 19.2 g/dL High 13 - 17 g/dL [place] Immature granulocytes (Bld) [#/Vol] 0.08 10*3/uL [place] Immature granulocytes (Bld) [#/Vol] 1 % High 0 [place] Interpretation and review of laboratory results Abnormal [place] Lymphocytes (Bld) [#/Vol] 4.09 10*3/uL [place] Lymphocytes/100 WBC (Bld) 43 % 25 - 45 % [place] MCH (RBC) [Entitic mass] 31.8 pg 25.2 - 33.5 pg [place] MCHC (RBC) [Mass/Vol] 35.8 g/dL High 28.4 - 34.8 g/dL [place] MCV (RBC) [Entitic vol] 88.7 fL 82.6 - 102.9 fL [place] Monocytes (Bld) [#/Vol] 0.67 10*3/uL [place] Monocytes/100 WBC (Bld) 7 % 2 - 8 % [place] Platelet mean volume (Bld) [Entitic vol] 10.9 fL 8.1 - 13.5 fL [place] Platelets (Bld) [#/Vol] NOT REPORTED [place] Platelets (Bld) [#/Vol] 226 10*3/uL [place] RBC (Bld) [#/Vol] 6.04 10*6/uL High 4.21 - 5.7 7 m/uL [place] RBC morphology finding Nom (Bld) NOT REPORTED [place] Segmented neutrophils/100 WBC (Bld) 47 % 34 - 64 % [place] Segs Absolute 4.47 [place] WBC (Bld) [#/Vol] 0.0 10*3/uL 0.0 per 10 0 WBC [place] WBC (Bld) [#/Vol] 9.5 10*3/uL [place] WBC Morphology NOT REPORTED [place] CBC with Diffon 07-30-2020 Abs. Basophil 0.08 k/uL Normal 0.00-0.20 [facility] Comment on above: Performed By: #### A TRAZO #### [facility] [address] [place] [address] Search Consultant: Kodak Akbar MD #### CMPX, EDTOX, LIP, CDP #### [address] [phone] Search Consultant: Frank Otero MD Abs.Imm.Granulocyte 0.08 k/uL Normal 0.00-0.30 [facility] Comment on above: Performed By: #### A TRAZO #### [facility] [address] [place] [address] [phone] Search Consultant: Kodak Akbar MD #### CMPX, EDTOX, LIP, CDP #### [address] [phone] Search Consultant: Frank Otero MD Abs.Neutrophil (Seg) 4.47 k/uL Normal 1.80-8.00 [facility] Comment on above: Performed By: #### A TRAZO #### [facility] [address] [place] [address] [phone] Search Consultant: Kodak Akbar MD #### CMPX, EDTOX, LIP, CDP #### [address] [address] Search Consultant: Frank Otero MD Basophils/100 WBC (Bld) 1 % Normal 0-2 [facility] Comment on above: Performed By: #### A TRAZO #### [facility] [address] [place] [address] Search Consultant: Kodak Akbar MD #### CMPX, EDTOX, LIP, CDP #### [address] [phone] Search Consultant: Frank Otero MD Eosinophils (Bld) [#/Vol] 0.07 10*3/uL Normal 0.00-0.44 [facility] Comment on above: Performed By: #### A TRAZO #### [facility] [address] [place] [address] Search Consultant: Kodak Akbar MD #### CMPX, EDJUSTUS, LIP, CDP #### [place] [phone] Search Consultant: Frank Otero MD Eosinophils/100 WBC (Bld) 1 % Normal 1-4 [facility] Comment on above: Performed By: #### A TRAZO #### [facility] [address] [place] [address] Search Consultant: Kodak Akbar MD #### FELICIA BUNN, LIP, CDP #### [address] [address] Search Consultant: Frank Otero MD Erythrocyte distribution width (RBC) [Ratio] 12.6 % Normal 11.8-14.4 [facility] Comment on above: Performed By: #### A TRAZO #### [facility] [address] [place] [address] Search Consultant: Kodak Akbar MD #### CMPX, EDTOX, LIP, CDP #### [address] [address] Search Consultant: Frank Otero MD Hematocrit (Bld) [Volume fraction] 53.6 % High 40.7-50.3 [facility] Comment on above: Performed By: #### A TRAZO #### [facility] [address] [place] [address] Search Consultant: Kodak Akbar MD #### CMPX, EDTOX, LIP, CDP #### [address] [phone] Search Consultant: Frank Otero MD Hemoglobin (Bld) [Mass/Vol] 19.2 g/dL High 13.0-17.0 [facility] Comment on above: Performed By: #### A TRAZO #### [facility] [address] [place] [address] Search Consultant: Kodak Akbar MD #### CMPX, EDTOX, LIP, CDP #### [address] [phone] Search Consultant: Frank Otero MD Immature granulocytes (Bld) [#/Vol] 1 % High 0 [facility] Comment on above: Performed By: #### A TRAZO #### [facility] [address] [place] [address] Search Consultant: Kodak Akbar MD #### CMPX, EDTOX, LIP, CDP #### [address] [phone] Search Consultant: Frank Otero MD Lymphocytes (Bld) [#/Vol] 4.09 10*3/uL Normal 1.20-5.20 [facility] Comment on above: Performed By: #### A TRAZO #### [facility] [address] [place] [address] Search Consultant: Kodak Akbar MD #### CMPX, EDTOX, LIP, CDP #### [address] [phone] Search Consultant: Frank Otero MD Lymphocytes/100 WBC (Bld) 43 % Normal 25-45 [facility] Comment on above: Performed By: #### A TRAZO #### [facility] [address] [place] [address] Search Consultant: oKdak Akbar MD #### CMPX, EDTOX, LIP, CDP #### [address] [address] Search Consultant: Frank Otero MD MCH (RBC) [Entitic mass] 31.8 pg Normal 25.2-33.5 [facility] Comment on above: Performed By: #### A TRAZO #### [facility] [address] [place] [address] Search Consultant: Kodak Akbar MD #### CMPX, EDTOX, LIP, CDP #### [address] [address] Search Consultant: Frank Otero MD MCHC (RBC) [Mass/Vol] 35.8 g/dL High 28.4-34.8 [facility] Comment on above: Performed By: #### A TRAZO #### [facility] [address] [place] [address] Search Consultant: Kodak Akbar MD #### CMPX, EDTOX, LIP, CDP #### [address] [phone] Search Consultant: Frank Otero MD MCV (RBC) [Entitic vol] 88.7 fL Normal 82.6-102.9 [facility] Comment on above: Performed By: #### A TRAZO #### [facility] [address] [place] [address] Search Consultant: Kodak Akbar MD #### CMPX, EDTOX, LIP, CDP #### [address] [address] Search Consultant: Frank Otero MD Monocytes (Bld) [#/Vol] 0.67 10*3/uL Normal 0.10-1.40 [facility] Comment on above: Performed By: #### A TRAZO #### [facility] [address] [place], [place] [id number] Search Consultant: Kodak Akbar MD #### CMPX, EDTOX, LIP, CDP #### [address] [phone] Search Consultant: Frank Otero MD Monocytes/100 WBC (Bld) 7 % Normal 2-8 [facility] Comment on above: Performed By: #### A TRAZO #### [facility] [address] [phone] Search Consultant: Kodak Akbar MD #### CMPX, EDTOX, LIP, CDP #### [address] [phone] Search Consultant: Frank Otero MD Neutrophil (Seg) 47 % Normal 34-64 [facility] Comment on above: Performed By: #### A TRAZO #### [address] [phone] Search Consultant: Kodak Akbar MD #### CMPX, EDTOX, LIP, CDP #### [address] [phone] Search Consultant: Frank Otero MD NRBC Automated 0.0 per 100 WBC Normal 0.0 [facility] Comment on above: Performed By: #### A TRAZO #### [facility] [address] [address] Search Consultant: Kodak Akbar MD #### CMPX, EDTOX, LIP, CDP #### [address] [phone] Search Consultant: Frank Otero MD Platelet mean volume (Bld) [Entitic vol] 10.9 fL Normal 8.1-13.5 [facility] Comment on above: Performed By: #### A TRAZO #### [facility] [address] [place] [address] Search Consultant: Kodak Akbar MD #### CMPX, EDTOX, LIP, CDP #### [address] [address] Search Consultant: Frank Otero MD Platelets (Bld) [#/Vol] 226 10*3/uL Normal 138-453 [facility] Comment on above: Performed By: #### A TRAZO #### [facility] [address] [place] [address] Search Consultant: Kodak Akbar MD #### CMPX, EDTOX, LIP, CDP #### [address] [address] Search Consultant: Frank Otero MD RBC (Bld) [#/Vol] 6.04 10*6/uL High 4.21-5.77 [facility] Comment on above: Performed By: #### A TRAZO #### [facility] [address] [place] [address] Search Consultant: Kodak Akbar MD #### CMPX, EDTOX, LIP, CDP #### [address] [phone] Search Consultant: Frank Otero MD WBC (Bld) [#/Vol] 9.5 10*3/uL Normal 4.5-13.5 [facility] Comment on above: Performed By: #### A TRAZO #### [facility] [address] [place] [address] Search Consultant: Kodak Akbar MD #### CMPX, EDTOX, LIP, CDP #### [address] [address] Search Consultant: Frank Otero MD Auto Diff Performed NOT REPORTED Normal [facility] Comment on above: Performed By: #### A TRAZO #### [facility] [address] [place] [address] Search Consultant: Kodak Akbar MD #### CMPX, EDTOX, LIP, CDP #### [address] [address] Search Consultant: Frank Otero MD Platelets (Bld) [#/Vol] NOT REPORTED Normal [facility] Comment on above: Performed By: #### A TRAZO #### [facility] [address] [place] [address] Search Consultant: Kodak Akbar MD #### CMPX, EDTOX, LIP, CDP #### [address] [address] Search Consultant: Frank Otero MD RBC morphology finding Nom (Bld) NOT REPORTED Normal [facility] Comment on above: Performed By: #### A TRAZO #### [facility] [address] [place] [address] Search Consultant: Kodak Akbar MD #### CMPX, EDTOX, LIP, CDP #### [address] [address] Search Consultant: Frank Otero MD WBC Morphology NOT REPORTED Normal [facility] Comment on above: Performed By: #### A TRAZO #### [facility] [address] [place] [address] Search Consultant: Kodak Akbar MD #### CMPX, EDTOX, LIP, CDP #### [address] [address] Search Consultant: Frank Otero MD Comp Metabolic Pr/rfx MGon 1 AST [Catalytic activity/Vol] 20 U/L Normal <40 [facility] Comment on above: Performed By: #### A TRAZO #### [facility] [address] [place], [place] [phone] Search Consultant: Kodak Akbar MD #### CMPX, EDTOX, LIP, CDP #### [address] [address] Search Consultant: Frank Otero MD (cont.) [facility] Comment on above: Result Comment: Aver age GFR for <20 years old not available. Chronic Kidney Disease: <60 mL/min/1.73sq m Kidney failure: <15 mL/min/1.73sq m eGFR calculated using average adult body mass. Additional eGFR calculator available at: http://www.[employer] Ocean/multiple_crcl_2012.htm Performed By: #### A TRAZO #### [facility] [address] [place] [address] Search Consultant: Kodak Akbar MD #### CMPX, EDTOX, LIP, CDP #### [address] [address] Search Consultant: Frank Otero MD Albumin [Mass/Vol] 4.8 g/dL Normal 3.5-5.2 [facility] Comment on above: Performed By: #### A TRAZO #### [facility] [address] [place] [address] [phone] Search Consultant: Kodak Akbar MD #### CMPX, EDTOX, LIP, CDP #### [address] [address] Search Consultant: Frank Otero MD Albumin/Globulin [Mass ratio] 1.9 {ratio} Normal 1.0-2.5 [facility] Comment on above: Performed By: #### A TRAZO #### [facility] [address] [place], [place] [phone] Search Consultant: Kodak Akbar MD #### CMPX, EDTOX, LIP, CDP #### [address] [phone] Search Consultant: Frank Otero MD Alkaline Phos 49 U/L Normal 40-129 [facility] Comment on above: Performed By: #### A TRAZO #### [facility] [address] [place] [address] [phone] Search Consultant: Kodak Akbar MD #### CMPX, EDTOX, LIP, CDP #### [address] [phone] Search Consultant: Frank Otero MD ALT [Catalytic activity/Vol] 24 U/L Normal 5-41 [facility] Comment on above: Performed By: #### A TRAZO #### [facility] [address] [phone] Search Consultant: Kodak Akbar MD #### CMPX, EDTOX, LIP, CDP #### [address] [phone] Search Consultant: Frank Otero MD Anion gap [Moles/Vol] 13 mmol/L Normal 9-17 [facility] Comment on above: Performed By: #### A TRAZO #### [facility] [address] [phone] Search Consultant: Kodak Akbar MD #### CMPX, EDTOX, LIP, CDP #### [address] [phone] Search Consultant: Frank Otero MD Bilirubin Ql (U) 0.84 mg/dL Normal 0.3-1.2 [facility] Comment on above: Performed By: #### A TRAZO #### [facility] [address] [place] [address] Search Consultant: Kodak Akbar MD #### CMPX, EDTOX, LIP, CDP #### [address] [phone] Search Consultant: Frank Otero MD Calcium [Mass/Vol] 9.6 mg/dL Normal 8.6-10.4 [facility] Comment on above: Performed By: #### A TRAZO #### [facility] [address] [place] [address] Search Consultant: Kodak Akbar MD #### CMPX, EDTOX, LIP, CDP #### [address] [address] Search Consultant: Frank Otero MD Chloride [Moles/Vol] 105 mmol/L Normal 98-107 [facility] Comment on above: Performed By: #### A TRAZO #### [facility] [address] [phone] Search Consultant: Kodak Akbar MD #### CMPX, EDTOX, LIP, CDP #### [address] [address] Search Consultant: Frank Otero MD CO2 [Moles/Vol] 21 mmol/L Normal 20-31 [facility] Comment on above: Performed By: #### A TRAZO #### [facility] [address] [place] [address] [phone] Search Consultant: Kodak Akbar MD #### CMPX, EDTOX, LIP, CDP #### [address] [address] Search Consultant: Frank Otero MD Creatinine [Mass/Vol] 0.91 mg/dL Normal 0.70-1.20 [facility] Comment on above: Performed By: #### A TRAZO #### [facility] [address] [place] [address] Search Consultant: Kodak Akbar MD #### CMPX, EDTOX, LIP, CDP #### [address] [address] Search Consultant: Frank Otero MD GFR,non Amer Pediatric GFR requires additional information. Refer to NKDEP website for Normal >60 [facility] Comment on above: Result Comment: calc ulator. Performed By: #### A TRAZO #### [facility] [address] [place] [address] Search Consultant: Kodak Akbar MD #### CMPX, EDTOX, LIP, CDP #### [address] [address] Search Consultant: Frank Otero MD Glucose [Mass/Vol] 198 mg/dL High 70-99 [facility] Comment on above: Performed By: #### A TRAZO #### [facility] [address] [place] [address] Search Consultant: Kodak Akbar MD #### CMPX, EDTOX, LIP, CDP #### [address] [address] Search Consultant: Frank Otero MD Potassium [Moles/Vol] 3.9 mmol/L Normal 3.7-5.3 [facility] Comment on above: Performed By: #### A TRAZO #### [facility] [address] [place] [address] Search Consultant: Kodak Akbar MD #### CMPX, EDTOX, LIP, CDP #### [address] [address] Search Consultant: Frank Otero MD Protein [Mass/Vol] 7.3 g/dL Normal 6.4-8.3 [facility] Comment on above: Performed By: #### A TRAZO #### [facility] [address] [place] [address] Search Consultant: Kodak Akbar MD #### CMPX, EDTOX, LIP, CDP #### [facility] [address] [place] [address] [phone] Search Consultant: Frank Otero MD Sodium [Moles/Vol] 139 mmol/L Normal 135-144 [facility] Comment on above: Performed By: #### A TRAZO #### [facility] [address] [place] [address] Search Consultant: Kodak Akbar MD #### CMPX, EDTOX, LIP, CDP #### [address] [phone] Search Consultant: Frank Otero MD Urea nitrogen [Mass/Vol] 13 mg/dL Normal 6-20 [facility] Comment on above: Performed By: #### A TRAZO #### [facility] [address] [place] [address] Search Consultant: Kodak Akbar MD #### CMPX, EDTOX, LIP, CDP #### [address] [address] Search Consultant: Frank Otero MD BUN/CRE Ratio NOT REPORTED Normal 9-20 [facility] Comment on above: Performed By: #### A TRAZO #### [facility] [address] [place] [address] Search Consultant: Kodak Akbar MD #### CMPX, EDTOX, LIP, CDP #### [address] [phone] Search Consultant: Frank Otero MD GFR, Amer NOT REPORTED Normal >60 [facility] Comment on above: Performed By: #### A TRAZO #### [facility] [address] [place] [address] Search Consultant: Kodak Akbar MD #### CMPX, EDTOX, LIP, CDP #### [address] [phone] Search Consultant: Frank Otero MD Staging: NOT REPORTED Normal [facility] Comment on above: Performed By: #### A TRAZO #### [facility] [address] [place] [address] Search Consultant: Kodak Akbar MD #### CMPX, EDTOX, LIP, CDP #### [address] [phone] Search Consultant: Frank Otero MD Drugon 07-30-2020 Ethanol [Mass/Vol] mg/dL <10 mg/dL [facility], [place] Drug Scr, Abuse, Uron 2019 Amphetamine(s),Ur Negative Normal NEG [facility] Comment on above: Result Comment: (Positive cutoff 1000 ng/mL) Performed By: #### D AU #### [address] [address] Search Consultant: Frank Otero MD Barbiturate(s),Ur Negative Normal NEG [facility] Comment on above: Result Comment: (Positive cutoff 200 ng/mL) Performed By: #### D AU #### [address] [phone] Search Consultant: Frank Otero MD Base excess Calc (Bld) [Moles/Vol] Negative Normal NEG [facility] Comment on above: Result Comment: (Positive cutoff 300 ng/mL) Performed By: #### D AU #### [address] [phone] Search Consultant: Frank Otero MD Benzodiazepine(s) Negative Normal NEG [facility] Comment on above: Result Comment: (Positive cutoff 200 ng/mL) Performed By: #### D AU #### [address] [place] [address] Search Consultant: Frank Otero MD Cannabinoid(s),Ur Negative Normal NEG [facility] Comment on above: Result Comment: (Positive cutoff 50 ng/mL) Performed By: #### D AU #### [address] [address] Search Consultant: Frank Otero MD Interpretive Info Assay provides medical screening only. The absence of expected drug(s) and/or Normal [facility] Comment on above: Result Comment: meta bolite(s) may indicate diluted or adulterated urine, limitations of testing or timing of collection. Testing for legal purposes should be confirmed by another method. To request confirmation of test result, please call the lab within 7 days of sample submission. Performed By: #### D AU #### [address] [address] Search Consultant: Frank Otero MD Methadone Ql (U) Negative Normal NEG [facility] Comment on above: Result Comment: (Positive cutoff 300 ng/mL) Performed By: #### D AU #### [facility] [address] [place] [address] Search Consultant: Frank Otero MD Opiate(s), Ur Negative Normal NEG [facility] Comment on above: Result Comment: (Positive cutoff 300 ng/mL) Performed By: #### D AU #### [facility] [address] [place] [address] Search Consultant: Frank Otero MD Oxycodone, Urine Negative Normal NEG [facility] Comment on above: Result Comment: (Positive cutoff 100 ng/mL) Performed By: #### D AU #### [facility] [address] [place] [address] Search Consultant: Frank Otero MD Phencyclidine, Ur Negative Normal NEG [facility] Comment on above: Result Comment: (Positive cutoff 25 ng/mL) Performed By: #### D AU #### [address] [address] Search Consultant: Frank Otero MD Buprenorphrine, Ur NOT REPORTED Normal NEG [facility] Comment on above: Performed By: #### D AU #### [facility] [address] [place] [address] Search Consultant: Frank Otero MD MDMA, Urine NOT REPORTED Normal NEG [facility] Comment on above: Performed By: #### D AU #### [address] [address] Search Consultant: Frank Otero MD Methamphetamine, Ur NOT REPORTED Normal NEG [facility] Comment on above: Performed By: #### D AU #### [address] [address] Search Consultant: Frank Otero MD Propoxyphene,Urine NOT REPORTED Normal NEG [facility] Comment on above: Performed By: #### D AU #### [address] [address] Search Consultant: Frank Otero MD Tricyclic antidepressants Screen Ql (U) NOT REPORTED Normal NEG [facility] Comment on above: Performed By: #### D AU #### [facility] [address] [place] [address] Search Consultant: Frank Otero MD Hematologyon 07-30-2020 aPTT Coag (Bld) [Time] NOT REPORTED [place], [place] Hematocrit (Bld) [Volume fraction] 56 % High 41 - 53 % [place] Hemoglobin (Bld) [Mass/Vol] 19.1 g/dL High 13.5 - 17.5 g/dL [place] Lactic Acid,Whole Blon 07-30 Lactic Acid,Whole Bl 1.0 mmol/L Normal 0.7-2.1 [facility] Comment on above: Performed By: #### L ACWB #### [facility] [address] [place], [place] [phone] Search Consultant: Frank Otero MD Lipaseon 07-30-2020 Lipase [Catalytic activity/Vol] 36 U/L Normal 13-60 [facility] Comment on above: Performed By: #### A TRAZO #### [facility] [address] [place] [address] Search Consultant: Kodak Akbar MD #### CMPX, EDTOX, LIP, CDP #### [facility] [address] [place], [place] [phone] Search Consultant: Frank Otero MD Metabolic Panelon 07-30-2020 Albumin [Mass/Vol] 4.8 g/dL 3.5 - 5.2 g/dL [place] ALP [Catalytic activity/Vol] 49 U/L 40 - 129 U/L [place] ALT [Catalytic activity/Vol] 24 U/L 5 - 41 U/L [place] Anion gap [Moles/Vol] 13 mmol/L 9 - 17 mmol/L [place] AST [Catalytic activity/Vol] 20 U/L <40 [place] Calcium [Mass/Vol] 9.6 mg/dL 8.6 - 10. 4 mg/dL [place] Chloride [Moles/Vol] 105 mmol/L 98 - 10 7 mmol/L [place] CO2 [Moles/Vol] 21 mmol/L 20 - 31 mmol/L [place] Creatinine [Mass/Vol] 0.91 mg/dL 0.7 - 1.2 mg/dL [place] GFR/1.73 sq M predicted among non-blacks MDRD (S/P/Bld) [Vol rate/Area] NOT REPORTED [place] GFR/1.73 sq M predicted among non-blacks MDRD (S/P/Bld) [Vol rate/Area] [place] Comment on above: Average GFR for <20 years old not available. Chronic Kidney Disease: <60 mL/min/1.73sq m Kidney failure: <15 mL/min/1.73sq m eGFR calculated using average adult body mass. Additional eGFR calculator available at: http://www.[employer] Ocean/multiple_crcl_2012.htm Glucose [Mass/Vol] 198 mg/dL High 70 - 99 mg/dL [place] Potassium [Moles/Vol] 3.9 mmol/L 3.7 - 5.3 mmol/L [facility] [place] Protein [Mass/Vol] 7.3 g/dL 6.4 - 8.3 g/dL [place] Sodium [Moles/Vol] 139 mmol/L 135 - 144 mmol/L [facility] [place] Urea nitrogen [Mass/Vol] 13 mg/dL 6 - 20 mg/dL [place] Anion gap [Moles/Vol] 10 mmol/L 7 - 16 mmol/L [facility] [place] Chloride [Moles/Vol] 109 mmol/L High 98 - 10 7 mmol/L [place] Creatinine [Mass/Vol] 1.11 mg/dL 0.51 - 1.19 mg/dL [place] GFR/1.73 sq M predicted among non-blacks MDRD (S/P/Bld) [Vol rate/Area] [place] Comment on above: Average GFR for <20 years old not available. Chronic Kidney Disease: <60 mL/min/1.73sq m Kidney failure: <15 mL/min/1.73sq m eGFR calculated using average adult body mass. Additional eGFR calculator available at: http://www.Digital Ocean/multiple_crcl_2012.htm GFR/1.73 sq M predicted among non-blacks MDRD (S/P/Bld) [Vol rate/Area] mL/min/{1.73_m2} >60 mL/min [place] Glucose [Mass/Vol] 220 mg/dL High 74 - 100 mg/dL [place] Potassium [Moles/Vol] 3.8 mmol/L 3.5 - 4.5 mmol/L [place] Sodium [Moles/Vol] 141 mmol/L 138 - 146 mmol/L [place] Otheron 07-30-2020 Amphetamine Screen, Ur Negative NEGATIVE [place] Comment on above: (Positive cutoff 1000 ng/mL) Barbiturate Screen, Ur Negative NEGATIVE [place] Comment on above: (Positive cutoff 200 ng/mL) Benzodiazepine Screen, Urine Negative NEGATIVE [place] Comment on above: (Positive cutoff 200 ng/mL) Buprenorphine Urine NOT REPORTED NEGATIVE [place] Cannabinoid Scrn, Ur Negative NEGATIVE [place] Comment on above: (Positive cutoff 50 ng/mL) Cocaine Metabolite, Urine Negative NEGATIVE [place] Comment on above: (Positive cutoff 300 ng/mL) MDMA, Urine NOT REPORTED [place]IVE [place] Methadone Screen, Urine Negative NEGATIVE [place] Comment on above: (Positive cutoff 300 ng/mL) Methamphetamine, Urine NOT REPORTED NEGATIVE [place] Opiates, Urine Negative NEGATIVE [place] Comment on above: (Positive cutoff 300 ng/mL) Oxycodone Screen, Ur Negative NEGATIVE [place] Comment on above: (Positive cutoff 100 ng/mL) Phencyclidine, Urine Negative NEGATIVE [place] Comment on above: (Positive cutoff 25 ng/mL) Propoxyphene, Urine NOT REPORTED NEGATIVE [place] Test Information Assay provides medical screening only. The absence of expected drug(s) and/or metabolite(s) may indicate diluted or adulterated urine, limitations of testing or timing of collection. [place] Comment on above: Testing for legal pu rposes should be confirmed by another method. To request confirmation of test result, please call the lab within 7 days of sample submission. Tricyclic Antidepressants, Urine NOT REPORTED NEGATIVE [place] Lactic Acid, Whole Blood 1.0 mmol/L 0.7 - 2.1 mmol/L [place] No acute findings [place] EXAMINATION: ONE XRA Y VIEW OF THE CHEST 07/30/2020 2:21 pm COMPARISON: None. HISTORY: ORDERING SYSTEM PROVIDED HISTORY: durg overdose TECHNOLOGIST PROVIDED HISTORY: durg overdose FINDINGS: Cardiac silhouette is enlarged. Lungs appear clear. No acute abnormality. [place], [place] Sergey, M[facility] Incoming Radiant Results From [facility] - 07/30/2020 2:26 PM EDT EXAMINATION: ONE XRAY VIEW OF THE CHEST 07/30/2020 2:21 pm COMPARISON: None. HISTORY: ORDERING SYSTEM PROVIDED HISTORY: durg overdose TECHNOLOGIST PROVIDED HISTORY: durg overdose FINDINGS: Cardiac silhouette is enlarged. Lungs appear clear. No acute abnormality. IMPRESSION: No acute findings [place] Acetaminophen [Mass/Vol] <5 Low 10 - 30 ug/mL [place] Albumin/Globulin [Mass ratio] 1.9 {ratio} [place] Bilirubin Ql (U) 0.84 mg/dL 0.3 - 1.2 mg/dL [place] Bun/Cre Ratio NOT REPORTED [place] Ethanol percent <0.010 <0.010 % [place] GFR NOT REPORTED >60 mL/min [place] GFR Non- Pediatric GFR requires additional information. Refer to NKDEP website for calculator. >60 mL/min [place] Interpretation and review of laboratory results Abnormal [place] Salicylate Lvl <1 Low 3 - 10 mg/dL [place] Toxic Tricyclic Sc,Blood Negative NEGATIVE [place] Lipase [Catalytic activity/Vol] 36 U/L 13 - 60 U/L [place] Tracie Test NOT REPORTED [place] FIO2 NOT REPORTED [place] GFR Non- >60 >60 mL/min [place] HCO3, Venous 22.3 mmol/L 22 - 29 mmol/L [place] Interpretation and review of laboratory results Abnormal [place] Mode NOT REPORTED [place] Negative Base Excess, Zack NOT REPORTED [place] O2 Device/Flow/% [place]ED [place] pCO2, Zack 32.1 Low [place] pH, Zack 7.451 High [place] pO2, Zack 187.6 High [place] POC Ionized Calcium 1.05 mmol/L Low 1.15 - 1 .33 mmol/L [place] Lactic Acid 2.76 mmol/L High 0.56 - 1.39 mmol/L [place] pCO2 Temp NOT REPORTED mm Hg [place] pH Temp NOT REPORTED [place] pO2 Temp NOT REPORTED mm Hg [place] Positive Base Excess, Zack 0 [place] Sample Site NOT REPORTED [place] Total CO2, Venous 23 mmol/L 23 - 30 mmol/L [place] P[place] Glucose Fingerstickon Glucose [Mass/Vol] 148 mg/dL High 75 - 110 mg/dL [place] Interpretation and review of laboratory results Abnormal [place] Glucose [Mass/Vol] 190 mg/dL High 75 - 110 mg/dL [place] Interpretation and review of laboratory results Abnormal [place] Tox Scr, Bld, EDon 0 Acetaminophen [Mass/Vol] <5 Low 10-30 [facility] Comment on above: Performed By: #### A TRAZO #### [facility] [address] [place], [place] [id number] Search Consultant: Kodak Akbar MD #### CMPX, EDTOX, LIP, CDP #### [id number] [place] [address] Search Consultant: Frank Otero MD Salicylate <1 Low 3-10 [facility] Comment on above: Performed By: #### A TRAZO #### [facility] [address] [place] [address] Search Consultant: Kodak Akbar MD #### CMPX, EDTOX, LIP, CDP #### [facility] [address] [place], [place] [phone] Search Consultant: Frank Otero MD Ethanol [Mass/Vol] mg/dL Normal <10 [facility] Comment on above: Performed By: #### A TRAZO #### [facility] [address] [place] [address] Search Consultant: Kodak Akbar MD #### CMPX, EDTOX, LIP, CDP #### [facility] [address] [place] [address] [phone] Search Consultant: Frank Otero MD Ethanol percent <0.010 Normal <0.010 [facility] Comment on above: Performed By: #### A TRAZO #### [facility] [address] [place] [address] Search Consultant: Kodak Akbar MD #### CMPX, EDTOX, LIP, CDP #### [facility] [address] [place] [address] [phone] Search Consultant: Frank Otero MD Toxic Tricyclic Sc,Bl Negative Normal NEG [facility] Comment on above: Performed By: #### A TRAZO #### [facility] [address] [place] [address] Search Consultant: Kodak Akbar MD #### CMPX, EDTOX, LIP, CDP #### [facility] [address] [place] [address] [phone] Search Consultant: Frank Otero MD XR CHEST PORTABLEon 07-30-20 20 XR CHEST PORTABLE EXAMINATION: ONE XRAY VIEW OF THE CHEST 07/30/2020 2:21 pm COMPARISON: None. HISTORY: ORDERING SYSTEM PROVIDED HISTORY: durg overdose TECHNOLOGIST PROVIDED HISTORY: durg overdose FINDINGS: Cardiac silhouette is enlarged. Lungs appear clear. No acute abnormality. IMPRESSION: No acute findings Interpreted by: Myranda Al MD Signed by: Myranda Al MD 07/30/20 Final result Normal [facility] ACETAMINOPHENon 02-26-2020 Acetaminophen [Mass/Vol] < 5.0 Normal 0.0-20.0 [facility] Comment on above: Performed By: #### C BCWD, BMP, ACTM, ASAT, ETOHS, ANION, OSMOL, TSH3 #### [facility] [address] [place] [address] ANION GAPon 02-26-2020 Anion gap [Moles/Vol] 11.0 mmol/L Normal 8.0-16.0 [facility] Comment on above: Result Comment: ANIO N GAP = Sodium -(Chloride + CO2) Performed By: #### C BCWD, BMP, ACTM, ASAT, ETOHS, ANION, OSMOL, TSH3 #### [facility] [address] [place] [address] Acetaminophen levelon 2019 Acetaminophen [Mass/Vol] < 5.0 0 - 20 ug/mL [place] Comment on above: Performed at [facility] [address] [place] [address] Anion Gapon 02-26-2020 Anion gap [Moles/Vol] 11.0 mmol/L 8 - 16 meq/L [place] Comment on above: ANION GAP = Sodium - (Chloride + CO2) Performed at [facility] [address] [place] [address] BASIC METABOL PANELon 2019 Calcium [Mass/Vol] 9.5 mg/dL Normal 8.5-10.5 [facility] Comment on above: Performed By: #### C BCWD, BMP, ACTM, ASAT, ETOHS, ANION, OSMOL, TSH3 #### [facility] [address] [place] [address] Chloride [Moles/Vol] 100 mmol/L Normal 98-111 [facility] Comment on above: Performed By: #### C BCWD, BMP, ACTM, ASAT, ETOHS, ANION, OSMOL, TSH3 #### [facility] [address] [place] [address] CO2 [Moles/Vol] 26 mmol/L Normal 23-33 [facility] Comment on above: Performed By: #### C BCWD, BMP, ACTM, ASAT, ETOHS, ANION, OSMOL, TSH3 #### [facility] [address] [place] [address] Creatinine [Mass/Vol] 0.8 mg/dL Normal 0.4-1.2 [facility] Comment on above: Performed By: #### C BCWD, BMP, ACTM, ASAT, ETOHS, ANION, OSMOL, TSH3 #### [address] [address] Glucose [Mass/Vol] 164 mg/dL High 70-108 [facility] Comment on above: Performed By: #### C BCWD, BMP, ACTM, ASAT, ETOHS, ANION, OSMOL, TSH3 #### [address] [address] Potassium [Moles/Vol] 5.0 mmol/L Normal 3.5-5.2 [facility] Comment on above: Result Comment: Very slight hemolysis indicated. Performed By: #### C BCWD, BMP, ACTM, ASAT, ETOHS, ANION, OSMOL, TSH3 #### [address] [address] Sodium [Moles/Vol] 137 mmol/L Normal 135-145 [facility] Comment on above: Performed By: #### C BCWD, BMP, ACTM, ASAT, ETOHS, ANION, OSMOL, TSH3 #### [address] [address] Urea nitrogen [Mass/Vol] 17 mg/dL Normal 7-22 [facility] Comment on above: Performed By: #### C BCWD, BMP, ACTM, ASAT, ETOHS, ANION, OSMOL, TSH3 #### [address] [address] Basic Metabolic Panelon 05-0 Calcium [Mass/Vol] 9.5 mg/dL 8.5 - 10. 5 mg/dL [place] Comment on above: Performed at [facility] [address] [place] [address] Chloride [Moles/Vol] 100 mmol/L 98 - 11 1 meq/L [place] CO2 [Moles/Vol] 26 mmol/L 23 - 33 meq/L [place] Creatinine [Mass/Vol] 0.8 mg/dL 0.4 - 1.2 mg/dL [place] Glucose [Mass/Vol] 164 mg/dL High 70 - 108 mg/dL [place] Potassium [Moles/Vol] 5.0 mmol/L 3.5 - 5.2 meq/L [place] Comment on above: Very slight hemolysi s indicated. Sodium [Moles/Vol] 137 mmol/L 135 - 145 meq/L [place] Urea nitrogen [Mass/Vol] 17 mg/dL 7 - 22 mg/dL [place] CALCULATED OSMOLALITYon 05-0 Osmolality [Osmolality] 279.0 mOsmol/kg Normal 275.0-3 00. [facility] Comment on above: Performed By: #### C BCWD, BMP, ACTM, ASAT, ETOHS, ANION, OSMOL, TSH3 #### [address] [address] CBC WITH DIFFERENTIALon ABS IMMATURE GRANS (IG) 0.09 thou/mm3 High 0.00-0.07 [facility] Comment on above: Performed By: #### C BCWD, BMP, ACTM, ASAT, ETOHS, ANION, OSMOL, TSH3 #### [facility] [address] [place] [address] ABS NEUTROPHILS 5.8 thou/mm3 Normal 1.8-7.7 [facility] Comment on above: Performed By: #### C BCWD, BMP, ACTM, ASAT, ETOHS, ANION, OSMOL, TSH3 #### [facility] [address] [place] [address] Basophils (Bld) [#/Vol] 0.1 thou/mm3 Normal 0.0-0.1 [facility] Comment on above: Performed By: #### C BCWD, BMP, ACTM, ASAT, ETOHS, ANION, OSMOL, TSH3 #### [facility] [address] [place] [address] Basophils/100 WBC (Bld) 0.7 % Normal [facility] Comment on above: Performed By: #### C BCWD, BMP, ACTM, ASAT, ETOHS, ANION, OSMOL, TSH3 #### [address] [address] Eosinophils (Bld) [#/Vol] 0.1 thou/mm3 Normal 0.0-0.4 [facility] Comment on above: Performed By: #### C BCWD, BMP, ACTM, ASAT, ETOHS, ANION, OSMOL, TSH3 #### [address] [address] Eosinophils/100 WBC (Bld) 1.1 % Normal [facility] Comment on above: Performed By: #### C BCWD, BMP, ACTM, ASAT, ETOHS, ANION, OSMOL, TSH3 #### [address] [address] Erythrocyte distribution width (RBC) [Ratio] 12.5 % Normal 11.5-14.5 [facility] Comment on above: Performed By: #### C BCWD, BMP, ACTM, ASAT, ETOHS, ANION, OSMOL, TSH3 #### [address] [address] Hematocrit (Bld) [Volume fraction] 51.3 % Normal 42.0-52.0 [facility] Comment on above: Performed By: #### C BCWD, BMP, ACTM, ASAT, ETOHS, ANION, OSMOL, TSH3 #### [address] [address] Hemoglobin (Bld) [Mass/Vol] 18.5 gm/dl High 14.0-18.0 [facility] Comment on above: Performed By: #### C BCWD, BMP, ACTM, ASAT, ETOHS, ANION, OSMOL, TSH3 #### [address] [address] IMMATURE GRANS (IG) 1.0 % Normal [facility] Comment on above: Performed By: #### C BCWD, BMP, ACTM, ASAT, ETOHS, ANION, OSMOL, TSH3 #### [address] [address] Lymphocytes (Bld) [#/Vol] 2.6 thou/mm3 Normal 1.0-4.8 [facility] Comment on above: Performed By: #### C BCWD, BMP, ACTM, ASAT, ETOHS, ANION, OSMOL, TSH3 #### [place] [address] Lymphocytes/100 WBC (Bld) 29.1 % Normal [facility] Comment on above: Performed By: #### C BCWD, BMP, ACTM, ASAT, ETOHS, ANION, OSMOL, TSH3 #### [place] [address] MCH (RBC) [Entitic mass] 32.2 pg Normal 26.0-33.0 [facility] Comment on above: Performed By: #### C BCWD, BMP, ACTM, ASAT, ETOHS, ANION, OSMOL, TSH3 #### [place] [address] MCHC (RBC) [Mass/Vol] 36.1 gm/dl High 32.2-35.5 [facility] Comment on above: Performed By: #### C BCWD, BMP, ACTM, ASAT, ETOHS, ANION, OSMOL, TSH3 #### [place] [address] MCV (RBC) [Entitic vol] 89.4 fL Normal 80.0-94.0 [facility] Comment on above: Performed By: #### C BCWD, BMP, ACTM, ASAT, ETOHS, ANION, OSMOL, TSH3 #### [address] [address] Monocytes (Bld) [#/Vol] 0.4 thou/mm3 Normal 0.4-1.3 [facility] Comment on above: Performed By: #### C BCWD, BMP, ACTM, ASAT, ETOHS, ANION, OSMOL, TSH3 #### [address] [address] Monocytes/100 WBC (Bld) 4.9 % Normal [facility] Comment on above: Performed By: #### C BCWD, BMP, ACTM, ASAT, ETOHS, ANION, OSMOL, TSH3 #### [address] [address] Neutrophils/100 WBC (Bld) 63.2 % Normal [facility] Comment on above: Performed By: #### C BCWD, BMP, ACTM, ASAT, ETOHS, ANION, OSMOL, TSH3 #### [address] [address] Nucleated RBC/100 WBC (Bld) [Ratio] 0 /100 wbc Normal [facility] Comment on above: Performed By: #### C BCWD, BMP, ACTM, ASAT, ETOHS, ANION, OSMOL, TSH3 #### [address] [address] Platelet mean volume (Bld) [Entitic vol] 9.8 fL Normal 9.4-12.4 [facility] Comment on above: Performed By: #### C BCWD, BMP, ACTM, ASAT, ETOHS, ANION, OSMOL, TSH3 #### [address] [address] Platelets (Bld) [#/Vol] 240 thou/mm3 Normal 130-400 [facility] Comment on above: Performed By: #### C BCWD, BMP, ACTM, ASAT, ETOHS, ANION, OSMOL, TSH3 #### [address] [address] RBC (Bld) [#/Vol] 5.74 mill/mm3 Normal 4.70-6.10 [facility] Comment on above: Performed By: #### C BCWD, BMP, ACTM, ASAT, ETOHS, ANION, OSMOL, TSH3 #### [address] [address] RDW-SD 40.7 fL Normal 35.0-45.0 [facility] Comment on above: Performed By: #### C BCWD, BMP, ACTM, ASAT, ETOHS, ANION, OSMOL, TSH3 #### [address] [address] WBC (Bld) [#/Vol] 9.1 thou/mm3 Normal 4.8-10.8 [facility] Comment on above: Performed By: #### C BCWD, BMP, ACTM, ASAT, ETOHS, ANION, OSMOL, TSH3 #### [facility] [address] [place] [address] CBC auto differentialon 05-0 Basophils (Bld) [#/Vol] 0.1 10*3/uL [place] Basophils/100 WBC (Bld) 0.7 % [place] Eosinophils (Bld) [#/Vol] 0.1 10*3/uL [place] Eosinophils/100 WBC (Bld) 1.1 % [place] Erythrocyte distribution width (RBC) [Ratio] 12.5 % 11.5 - 14.5 % [place] Hematocrit (Bld) [Volume fraction] 51.3 % 42 - 52 % [place] Hemoglobin (Bld) [Mass/Vol] 18.5 g/dL [place], [place] Immature Grans (Abs) 0.09 [place] Immature granulocytes (Bld) [#/Vol] 1 % [place] Interpretation and review of laboratory results Abnormal [place] Lymphocytes (Bld) [#/Vol] 2.6 10*3/uL [place] Lymphocytes/100 WBC (Bld) 29.1 % [place] MCH (RBC) [Entitic mass] 32.2 pg 26 - 33 pg [place] MCHC (RBC) [Mass/Vol] 36.1 g/dL [place], [place] MCV (RBC) [Entitic vol] 89.4 fL 80 - 94 fL [place] Monocytes (Bld) [#/Vol] 0.4 10*3/uL [place] Monocytes/100 WBC (Bld) 4.9 % [place] Nucleated RBC/100 WBC (Bld) [Ratio] 0 % /100 wbc [place] Comment on above: Performed at [facility] [address] [place] [address] Platelet mean volume (Bld) [Entitic vol] 9.8 fL 9.4 - 12.4 fL [place] Platelets (Bld) [#/Vol] 240 10*3/uL [place] RBC (Bld) [#/Vol] 5.74 10*6/uL [place] RDW-SD 40.7 fL 35 - 45 fL [place] Segmented neutrophils/100 WBC (Bld) 63.2 % [place] Segs Absolute 5.8 [place] WBC (Bld) [#/Vol] 9.1 10*3/uL [place] DRUG ABUSE SCREENon 02-26-20 20 AMPHETAMINE/METHAMPH Negative Normal NEGATIVE [facility] Comment on above: Performed By: #### U R_CS #### [address] [address] BARBITURATE Negative Normal NEGATIVE [facility] Comment on above: Performed By: #### U R_CS #### [facility] [address] [place] [address] Benzodiazepines Ql (U) Negative Normal NEGATIVE [facility] Comment on above: Performed By: #### U R_CS #### [facility] [address] [place] [address] Cannabinoids Screen Ql (U) Negative Normal NEGATIVE [facility] Comment on above: Performed By: #### U R_CS #### [facility] [address] [place] [address] COCAINE METABOLITE Negative Normal NEGATIVE [facility] Comment on above: Performed By: #### U R_CS #### [facility] [address] [place] [address] Opiates Ql (U) Negative Normal NEGATIVE [facility] Comment on above: Performed By: #### U R_CS #### [facility] [address] [place] [address] OXYCODONE Negative Normal NEGATIVE [facility] Comment on above: Performed By: #### U R_CS #### [facility] [address] [place] [address] Phencyclidine Ql (U) Negative Normal NEGATIVE [facility] Comment on above: Result Comment: [...] only. Performed By: #### U R_CS #### [employer] [address] [place] [address] ETHYL ALCOHOL BLOODon 2019 ETHYL ALCOHOL BLOOD < 0.01 Normal 0.00 [facility] Comment on above: Performed By: #### C BCWD, BMP, ACTM, ASAT, ETOHS, ANION, OSMOL, TSH3 #### [facility] [address] [place] [address] Ethanolon 02-26-2020 ETHYL ALCOHOL, SERUM < 0.01 0.00 % [place] Comment on above: Performed at [facility] [address] [place] [address] Osmolalityon 02-26-2020 Osmolality Calc 279.0 [place] Comment on above: Performed at [facility] [address] [place] [address] Otheron 02-26-2020 Interpretation and review of laboratory results Abnormal [place] SALICYLATEon 02-26-2020 SALICYLATE < 0.3 Low 2.0-10.0 [facility] Comment on above: Performed By: #### C BCWD, BMP, ACTM, ASAT, ETOHS, ANION, OSMOL, TSH3 #### [employer] [address] [place] [address] Salicylate Levelon 0 Salicylate, Serum < 0.3 Low 2 - 10 mg/dL [place] Comment on above: Performed at [facility] [address] [place] [address] TSH THIRD GENERATIONon 02-25 TSH THIRD GENERATION 5.000 uIU/mL High 0.400-4.20 [facility] Comment on above: Performed By: #### C BCWD, BMP, ACTM, ASAT, ETOHS, ANION, OSMOL, TSH3 #### [facility] [address] [address] TSH without Reflexon 020 Interpretation and review of laboratory results Abnormal [place] TSH Qn 5.000 m[IU]/L High [place] Comment on above: Performed at [facility] [address] [place] [address] URINE REFLEX C + Son 020 Bilirubin Ql (U) Negative Normal NEGATIVE [facility] Comment on above: Performed By: #### U R_CS #### [address] [address] BLOOD Negative Normal NEGATIVE [facility] Comment on above: Performed By: #### U R_CS #### [facility] [address] [place] [address] Character (U) CLEAR Normal CLEAR-SL C [facility] Comment on above: Performed By: #### U R_CS #### [employer] [address] [place] [address] Color (U) YELLOW Normal STRAW-YELL [facility] Comment on above: Performed By: #### U R_CS #### [facility] [address] [address] Glucose [Mass/Vol] Negative Normal NEGATIVE [facility] Comment on above: Performed By: #### U R_CS #### [employer] [address] [place] [address] Ketones Ql (U) Negative Normal NEGATIVE [facility] Comment on above: Performed By: #### U R_CS #### [employer] [address] [place] [address] Nitrite Ql (U) Negative Normal NEGATIVE [facility] Comment on above: Performed By: #### U R_CS #### [employer] [address] [place] [address] pH (Bld) 5.5 Normal 5.0 - 9.0 [facility] Comment on above: Performed By: #### U R_CS #### [facility] [address] [place] [address] Protein (U) [Mass/Vol] Negative Normal NEGATIVE [facility] Comment on above: Performed By: #### U R_CS #### [facility] [address] [place] [address] Specific gravity (U) [Rel density] 1.026 Normal 1.002-1.03 [facility] Comment on above: Performed By: #### U R_CS #### [address] [address] Urobilinogen Qn (U) 1.0 eu/dl Normal 0.0 - 1.0 [facility] Comment on above: Performed By: #### U R_CS #### [address] [address] WBC (Bld) [#/Vol] Negative Normal NEGATIVE [facility] Comment on above: Performed By: #### U R_CS #### [employer] [address] [address] Urinalysis Reflex to Culture on 02-26-2020 Bilirubin Urine Negative NEGATIVE [facility] [place] Blood, Urine Negative NEGATIVE [facility], [place] Character, Urine CLEAR CLEAR-SL C [place] Comment on above: Performed at [facility] [address] [place] [address] Color, UA YELLOW STRAW-YELL [place] Glucose, Ur Negative NEGATIVE mg/dl [place] Ketones Ql (U) Negative NEGATIVE [place] Leukocyte esterase Test strip Ql (U) Negative NEGATIVE [facility], [place] Nitrite, Urine Negative NEGATIVE [facility], [place] pH, UA 5.5 [facility] Protein (U) [Mass/Vol] Negative NEGATIVE [facility], [place] Specific [place], Urine 1.026 M [place], [place] Urobilinogen, Urine 1.0 [place] Urine Drug Screenon 02-26-20 20 AMPHETAMINE+METHAMPHETA MINE URINE SCREEN Negative NEGATIVE [facility], [place] Barbiturate Quant, Ur Negative NEGATIVE [facility], [place] Benzodiazepine Quant, Ur Negative NEGATIVE [place] Cannabinoid Quant, Ur Negative NEGATIVE [facility], [place] Cocaine Metab Quant, Ur Negative NEGATIVE [facility], [place] Opiates, Urine Negative NEGATIVE [place] Oxycodone Negative NEGATIVE [place] PCP Quant, Ur Negative NEGATIVE [place] Comment on above: A Negative result [...] are for medical use only. Performed at [facility] [address] [place] [address] 02-15-2020 Unremarkable left knee This report has been created using voice recognition software. It may contain minor errors which are inherent in voice recognition technology. Final report electronically signed by Dr. Alexander Vega on 02/15/2020 2:22 PM [place] PROCEDURE: XR KNEE LEFT (3 VIEWS) CLINICAL INFORMATION: Left knee pain, unspecified chronicity . COMPARISON: No prior study. TECHNIQUE: Standing AP and lateral projections a sunrise patella projection. FINDINGS: No acute fracture or dislocation. Joint space is maintained. No joint effusion. No soft tissue normality. [place], [place] Sergey, Wcoh Incoming Radiant Results From Pyrolia/Unocoin - 02/15/2020 2:24 PM EDT PROCEDURE: XR [...] Dr. Alexander Vega on 02/15/2020 2:22 PM [facility], [place] XR KNEE LEFT (3 VIEWS)on XR [...] Alexander Vega MD 02/15/20 Final result Normal [facility] Vital Signs Date Time Vital Sign Value Performing Clinician Facility 04-05-2025 07:30-0400 Body temperature 97.6 [degF] PHYSICIAN NO [facility] 04-05-2025 07:30-0400 Diastolic blood pressure 74 mm[Hg] PHYSICIAN NO [facility] 04-05-2025 07:30-0400 Heart rate 83 /min PHYSICIAN NO [facility] 04-05-2025 07:30-0400 Respiratory rate 20 /min PHYSICIAN NO [facility] 04-05-2025 07:30-0400 SaO2% (BldA) [Mass fraction] 98 % PHYSICIAN NO [facility] 04-05-2025 07:30-0400 Systolic blood pressure 122 mm[Hg] PHYSICIAN NO [facility] 04-03-2025 14:38-0400 Body height 172.[address] [facility] 04-03-2025 09:00-0400 Body weight [address] [facility] 03-31-2025 22:18-0400 Body temperature 98.4 [degF] Demetria Cifuentes APRN Work Phone: [facility] 03-31-2025 22:18-0400 Diastolic blood pressure 90 mm[Hg] Demetria Gunterabelino ELECT[employer]IC RANGE [employer]SEMBLER Work Phone: [facility] 03-31-2025 22:18-0400 Heart rate 102 /min Demetria Gunterfranciabrodyabena [employer] R[employer] ASSEM[employer]ER Work Phone: [facility] 03-31-2025 22:18-0400 Respiratory rate 16 /min Demetria Gunterfranciabrodyabena [employer] R[employer]SEM[employer]ER Work Phone: [facility] [facility] 03-31-2025 22:18-0400 SaO2% (BldA) [Mass fraction] 97 % Demetria Gunterabelino ELECTRIC RANGE ASSEMBLER Work Phone: [facility] 03-31-2025 22:18-0400 Systolic blood pressure 135 mm[Hg] Demetria Gunterabelino ELECTRIC RANGE ASSEMBLER Work Phone: [facility] 03-31-2025 13:28-0400 Body height 172.72 cm Demetria Gunterabelino ELECTRIC RANGE ASSEMBLER Work Phone: [facility] 03-31-2025 13:28-0400 Body weight 108.27 kg Demetria Orlandoabena ELECTRIC RANGE ASSEMBLER Work Phone: [facility] 02-17-2025 21:06-0400 Body height 172.72 cm Demetria Gunterfranciabrodyabena ELECTRIC RANGE ASSEMBLER Work Phone: [facility] 02-17-2025 21:06-0400 Body temperature 98.6 [degF] Demetria Esau ELECTRIC RANGE ASSEMBLER Work Phone: [facility] 02-17-2025 21:06-0400 Body weight 109.1 kg Demetria Cifuentes ELECTRIC RANGE ASSEMBLER Work Phone: [facility] 02-17-2025 21:06-0400 Diastolic blood pressure 78 mm[Hg] Demetria Esau ELECTRIC RANGE ASSEMBLER Work Phone: [facility] 02-17-2025 21:06-0400 Heart rate 90 /min Demetria Esau ELECTRIC RANGE ASSEMBLER Work Phone: [facility] 02-17-2025 21:06-0400 Respiratory rate 16 /min Demetria Esau ELECTRIC RANGE ASSEMBLER Work Phone: [facility] 02-17-2025 21:06-0400 SaO2% (BldA) [Mass fraction] 98 % Demetria Esau ELECTRIC RANGE ASSEMBLER Work Phone: [facility] 02-17-2025 21:06-0400 Systolic blood pressure 157 mm[Hg] Demetria Esau ELECTRIC RANGE ASSEMBLER Work Phone: [facility] 01-09-2025 08:24-0400 Body weight 108.45 kg Demetria Esau ELECTRIC RANGE ASSEMBLER Work Phone: [facility] 01-09-2025 07:30-0400 Body temperature 97.3 [degF] Demetria Esau ELECTRIC RANGE ASSEMBLER Work Phone: [facility] 01-09-2025 07:30-0400 Diastolic blood pressure 76 mm[Hg] Demetria Esau ELECTRIC RANGE ASSEMBLER Work Phone: [facility] 01-09-2025 07:30-0400 Heart rate 77 /min Demetria Esau ELECTRIC RANGE ASSEMBLER Work Phone: [facility] 01-09-2025 07:30-0400 Respiratory rate 16 /min Demetria Esau ELECTRIC RANGE ASSEMBLER Work Phone: [facility] 01-09-2025 07:30-0400 SaO2% (BldA) [Mass fraction] 99 % Demetria Esau ELECTRIC RANGE ASSEMBLER Work Phone: [facility] 01-09-2025 07:30-0400 Systolic blood pressure 138 mm[Hg] Demetriarosalba Cifuentes ELECTRIC RANGE ASSEMBLER Work Phone: [facility] 01-06-2025 16:04-0400 Body height 172.72 cm Demetria Cifuentes ELECTRIC RANGE ASSEMBLER Work Phone: [facility] 01-05-2025 17:17-0400 Diastolic blood pressure 97 mm[Hg] PHYSICIAN NO [facility] 01-05-2025 17:17-0400 Heart rate 112 /min PHYSICIAN NO [facility] 01-05-2025 17:17-0400 Respiratory rate 16 /min PHYSICIAN NO [facility] 01-05-2025 17:17-0400 SaO2% (BldA) [Mass fraction] 96 % PHYSICIAN NO [facility] 01-05-2025 17:17-0400 Systolic blood pressure 140 mm[Hg] PHYSICIAN NO [facility] 01-05-2025 12:29-0400 Body height 172.[address] [facility] 01-05-2025 12:29-0400 Body temperature 98.4 [degF] PHYSICIAN NO [facility] 01-05-2025 12:29-0400 Body weight [address] [facility] 08-04-2024 07:30-0400 Body temperature 97.8 [degF] HAILEE Cifuentes Work Phone: [facility] 08-04-2024 07:30-0400 Diastolic blood pressure 67 mm[Hg] HAILEE Cifuentes Work Phone: [facility] 08-04-2024 07:30-0400 Heart rate 89 /min HAILEE Cifuentes Work Phone: [facility] 08-04-2024 07:30-0400 Respiratory rate 20 /min HAILEE Cifuentes Work Phone: [facility] 08-04-2024 07:30-0400 SaO2% (BldA) [Mass fraction] 99 % HAILEE Cifuentes Work Phone: [facility] 08-04-2024 07:30-0400 Systolic blood pressure 116 mm[Hg] HAILEE Cifuentes Work Phone: [facility] 08-02-2024 15:22-0400 Body height 172.72 cm ELECTRIC RANGE ASSEMBLEREllen Caseacher Work Phone: [facility] 08-01-2024 11:25-0400 Body weight 106.59 kg ELECTRIC RANGE ASSEMBLEREllen MarcosDemetria Evieacher Work Phone: [facility] 08-01-2024 10:00-0400 Diastolic blood pressure 94 mm[Hg] ELECTRIC RANGE ASSEMBLEREllen MarcosDemetria Evieacher Work Phone: [facility] 08-01-2024 10:00-0400 Heart rate 75 /min ELECTR[employer] RANGE ASSEMBLEREllen MarcosDemetria Evieacher Work Phone: [facility] 08-01-2024 10:00-0400 Respiratory rate 16 /min ELECTRIC RANGE ASSEMBLEREllen Caseacher Work Phone: [facility] 08-01-2024 10:00-0400 SaO2% (BldA) [Mass fraction] 97 % ELECTRIC RANGE ASSEMBLEREllen MarcosDemetria Evieacher Work Phone: [facility] 08-01-2024 10:00-0400 Systolic blood pressure 141 mm[Hg] ELECTRIC RANGE ASSEMBLEREllen MarcosDemetria Evieacher Work Phone: [facility] 08-01-2024 03:09-0400 Body height 172.72 cm ELECTRIC RANGE ASSEMBLEREllen Caseacher Work Phone: [facility] 08-01-2024 03:09-0400 Body temperature 97.8 [degF] ELECTRIC RANGE ASSEMBLEREllen MarcosDemetria Evieacher Work Phone: [facility] 08-01-2024 03:09-0400 Body weight 109.35 kg ELECTRIC RANGE ASSEMBLEREllen MarcosDemetria Evieacher Work Phone: [facility] 07-27-2024 16:00-0400 Body height 172.72 cm [facility] 07-27-2024 16:00-0400 Body mass index (BMI) [Ratio] 35.4 kg/m2 [facility] 07-27-2024 16:00-0400 Body temperature 96.6 [degF] [facility] 07-27-2024 16:00-0400 Body weight 105.68 kg [facility] 07-27-2024 16:00-0400 Diastolic blood pressure 86 mm[Hg] [facility] 07-27-2024 16:00-0400 Heart rate 76 /min [facility] 07-27-2024 16:00-0400 SaO2% (BldA) [Mass fraction] 96 % [facility] 07-27-2024 16:00-0400 Systolic blood pressure 134 mm[Hg] [facility] 06-29-2024 10:41-0400 Body height 172.72 cm [facility] 06-29-2024 10:41-0400 Body mass index (BMI) [Ratio] 35.4 kg/m2 [facility] 06-29-2024 10:41-0400 Body weight 105.68 kg [facility] 06-29-2024 10:41-0400 Diastolic blood pressure 84 mm[Hg] [facility] 06-29-2024 10:41-0400 Heart rate 111 /min [facility] 06-29-2024 10:41-0400 Respiratory rate 12 /min [facility] 06-29-2024 10:41-0400 Systolic blood pressure 124 mm[Hg] [facility] 04-25-2024 11:19-0400 Blood Pressure Location Joel PATEL [facility] 04-25-2024 11:19-0400 Body temperature 98.6 [degF] Joel PATEL [facility] 04-25-2024 11:19-0400 Diastolic blood pressure 86 mm[Hg] Joel PATEL [facility] 04-25-2024 11:19-0400 Heart rate 95 /min Joel PATEL [facility] 04-25-2024 11:19-0400 Respiratory rate 16 /min Joel PATEL [facility] 04-25-2024 11:19-0400 Systolic blood pressure 139 mm[Hg] Joel PATEL [facility] 03-03-2024 12:58-0400 Body height 172.72 cm [facility] 03-03-2024 12:58-0400 Body mass index (BMI) [Ratio] 37.5 kg/m2 [facility] 03-03-2024 12:58-0400 Body weight 112.03 kg [facility] 03-03-2024 12:58-0400 Diastolic blood pressure 70 mm[Hg] [facility] 03-03-2024 12:58-0400 Heart rate 102 /min [facility] 03-03-2024 12:58-0400 SaO2% (BldA) [Mass fraction] 98 % [facility] 03-03-2024 12:58-0400 Systolic blood pressure 120 mm[Hg] [facility] 02-15-2024 10:57-0400 Body height 172.72 cm [facility] 02-15-2024 10:57-0400 Body mass index (BMI) [Ratio] 37.8 kg/m2 [facility] 02-15-2024 10:57-0400 Body weight 112.94 kg [facility] 02-15-2024 10:57-0400 Diastolic blood pressure 84 mm[Hg] [facility] 02-15-2024 10:57-0400 Heart rate 95 /min [facility] 02-15-2024 10:57-0400 SaO2% (BldA) [Mass fraction] 98 % [facility] 02-15-2024 10:57-0400 Systolic blood pressure 130 mm[Hg] [facility] 12-11-2023 13:06-0500 Body height 172.72 cm [facility] 12-11-2023 13:06-0500 Body mass index (BMI) [Ratio] 37.2 kg/m2 [facility] 12-11-2023 13:06-0500 Body temperature 99.7 [degF] [facility] 12-11-2023 13:06-0500 Body weight 111.13 kg [facility] 12-11-2023 13:06-0500 Diastolic blood pressure 84 mm[Hg] [facility] 12-11-2023 13:06-0500 Heart rate 110 /min [facility] 12-11-2023 13:06-0500 Respiratory rate 18 /min [facility] 12-11-2023 13:06-0500 SaO2% (BldA) [Mass fraction] 96 % [facility] 12-11-2023 13:06-0500 Systolic blood pressure 120 mm[Hg] [facility] 12-04-2023 08:30-0500 Body height 172.72 cm Demetria Cifuentes Other [employer] [facility] [employer] Other 12-04-2023 08:30-0500 Body mass index (BMI) [Ratio] 39.38 kg/m2 Demetria Cifuentes Other [employer] [facility] [employer] Other 12-04-2023 08:30-0500 Body weight 117.48 kg Demetria Cifuentes Other [employer] Other 12-04-2023 08:30-0500 Diastolic blood pressure 82 mm[Hg] Demetria Cifuentes Other [employer] Other 12-04-2023 08:30-0500 SaO2% (BldA) [Mass fraction] 98 % Demetria Cifuentes Other [employer] Other 12-04-2023 08:30-0500 Systolic blood pressure 136 mm[Hg] Demetria Esau Other [employer] Other 10-16-2023 17:30-0500 Body height 172.72 cm Lynn Mercermond Other [facility] 10-16-2023 17:30-0500 Body mass index (BMI) [Ratio] 42.57 kg/m2 Lynn Deisy Other [employer] Other 10-16-2023 17:30-0500 Body temperature 98.4 [degF] Lynn Diesy Other [employer] Other 10-16-2023 17:30-0500 Body weight 127.01 kg Lynn Deisy Other [facility] [employer] Other 10-16-2023 17:30-0500 Body weight 127 kg [facility] 10-16-2023 17:30-0500 Diastolic blood pressure 86 mm[Hg] Lynn Deisy Other [facility] 10-16-2023 17:30-0500 Respiratory rate 18 /min Lynn Deisy Other [employer] Other 10-16-2023 17:30-0500 SaO2% (BldA) [Mass fraction] 97 % Lynn Deisy Other [employer] Other 10-16-2023 17:30-0500 Systolic blood pressure 138 mm[Hg] Lynn Deisy Other [facility] 09-29-2022 19:40-0500 Body height 172.72 cm Lynn Deisy Other [employer] Other 09-29-2022 19:40-0500 Body mass index (BMI) [Ratio] 35.58 kg/m2 Lynn Olivas Other [employer] Other 09-29-2022 19:40-0500 Body weight 106.14 kg Lynn Olivas Other [employer] Other 09-29-2022 19:40-0500 Diastolic blood pressure 96 mm[Hg] Lynn Olivas Other [employer] Other 09-29-2022 19:40-0500 Respiratory rate 18 /min Lynn Olivas Other [employer] Other 09-29-2022 19:40-0500 SaO2% (BldA) [Mass fraction] 98 % Lynn Olivas Other [employer] Other 09-29-2022 19:40-0500 Systolic blood pressure 140 mm[Hg] Lynn Olivas Other [employer] Other 08-05-2020 08:00-0400 Body Temperature 98.01 [degF] Fito SalehDroid system master [facility] [place] [place] 08-05-2020 08:00-0400 BP Diastolic 82 mm[Hg] Fito [employer] [facility] 08-05-2020 08:00-0400 BP Systolic 133 mm[Hg] Fito Tappitbradley hospitalDroid system master [facility] [place] 08-05-2020 08:00-0400 Pulse (Heart Rate) 80 /min Fit[facility] SalehWAFUagustinHayward HospitalLyricFind [facility], [place] 08-05-2020 08:00-0400 Respiratory Rate 14 /min Fito SalehDroid system master [facility] [place] [place] 08-04-2020 19:36-0400 Pulse Oximetry 98 % Fito TappitalineDroid system master [facility] [place], [place] 08-01-2020 23:05-0400 BMI (Body Mass Index) 35.15 kg/m2 Fito Villalobos [facility], [place] 08-01-2020 23:05-0400 Body weight 114.31 kg Fito Villalobos [facility], [place] 08-01-2020 23:05-0400 Height 180.3 cm Fito Villalobos [facility], [place] 08-01-2020 19:54-0400 Body Temperature 98.29 [degF] [facility] [place] 08-01-2020 19:54-0400 BP Diastolic 74 mm[Hg] [facility] [place] 08-01-2020 19:54-0400 BP Systolic 119 mm[Hg] [facility] [place] 08-01-2020 19:54-0400 Pulse (Heart Rate) 93 /min [facility] [place] 08-01-2020 19:54-0400 Pulse Oximetry 98 % [facility] [place] 08-01-2020 19:54-0400 Respiratory Rate 17 /min [facility] [place] 07-31-2020 05:15-0400 BMI (Body Mass Index) 35.98 kg/m2 Peace MartinezMulticare Healthana [facility], [place] 07-31-2020 05:15-0400 Body weight 117.03 kg [facility] [place] 07-30-2020 13:31-0400 Height 180.3 cm [facility] [place] 2020 07:46-0400 Body Temperature 95.5 [degF] [facility] [place] 2020 07:46-0400 BP Diastolic 72 mm[Hg] Fito [facility] [place] 2020 07:46-0400 BP Systolic 130 mm[Hg] Fito [facility] [place] 2020 07:46-0400 Pulse (Heart Rate) 93 /min Fito Salazars [facility], [place] 2020 07:46-0400 Pulse Oximetry 96 % Fito Villalob[facility], [place] 2020 07:46-0400 Respiratory Rate 18 /min Fito Villalobos [facility], [place] 02-27-2020 00:33-0400 BMI (Body Mass Index) 39.28 kg/m2 Fito Villalobos [facility], [place] 02-27-2020 00:33-0400 Body weight 120.66 kg [facility] [place] 02-27-2020 00:33-0400 Height 175.3 cm [facility] [place] 02-14-2020 13:12-0400 BMI (Body Mass Index) 40.5 kg/m2 [facility] Work Phone: 02-14-2020 13:12-0400 Body mass index (BMI) [Percentile] 99 {percentile} [facility] Work Phone: 02-14-2020 13:12-0400 Body Temperature 97.1 [degF] [facility] Work Phone: 02-14-2020 13:12-0400 Body weight 120.77 kg [facility] Work Phone: 02-14-2020 13:12-0400 BP Diastolic 78 mm[Hg] [facility] Work Phone: 02-14-2020 13:12-0400 BP Systolic 140 mm[Hg] [facility] Work Phone: 02-14-2020 13:12-0400 BSA (Body Surface Area) 2.31 m2 [facility] Work Phone: 02-14-2020 13:12-0400 Height 172.72 cm [facility] Work Phone: 02-14-2020 13:12-0400 Pain Level 3 1 Fito Villalobos [facility] Partner s [facility] Work Phone: 02-14-2020 13:12-0400 Pulse (Heart Rate) 84 /min [facility] Work Phone: 02-14-2020 13:12-0400 Pulse Oximetry 98 % [facility] Work Phone: 02-14-2020 13:12-0400 Respiratory Rate 16 /min [facility] Work Phone: Encounters Encounter Date Encounter Type Care Provider Facility Start: 05-09-2025 End: 05-09-2025 Emergency department patient visit NO PCP NO PCP [facility] Start: 04-30-2025 ambulatory [facility] Facility :[facility] Start: 04-20-2025 ambulatory Petar RUFUS [facility] Start: 04-01-2025 Non-patient / Non-visit PHYSICIAN NO [facility] Work Phone: Start: 03-31-2025 End: 04-05-2025 Evaluation and management of inpatient Demetria Cifuentes APRN Work Phone: [facility] [place] [address] Work Phone: Start: 03-31-2025 ambulatory Demetria Cifuentes Fac ility:[facility] Start: 03-31-2025 Registered Recurring PHYSICIAN SHAWN MURRY [facility] Start: 03-31-2025 End: 03-31-2025 ambulatory Demetria Cifuentes ELECTRIC RANGE ASSEMBLER Work Phone: [facility] Work Phone: Start: 03-31-2025 End: 03-31-2025 Departed Referred Demetria Cifuentes ELECTRIC RANGE ASSEMBLER Work Phone: [facility] Start: 02-17-2025 End: 02-17-2025 Emergency department patient visit Demetria Cifuentes ELECTRIC RANGE ASSEMBLER Work Phone: [facility] Work Phone: Start: 01-06-2025 Non-patient / Non-visit Pritijesus karlos Cifuentes APRN Work Phone: [facility] Work Phone: Start: 01-05-2025 End: 01-09-2025 Evaluation and management of inpatient PHYSICIAN NO [facility] Work Phone: Start: 01-05-2025 Registered Recurring Demetria Esau ELECTRIC RANGE ASSEMBLER Work Phone: [facility] Start: 08-02-2024 Non-patient / Non-visit ELECTRIC RANGE ASSEMBLER Brendan Cifuentes Work Phone: [facility] Work Phone: Start: 08-01-2024 End: 08-04-2024 Evaluation and management of inpatient ELECTRIC RANGE ASSEMBLER Demetriarosalba Cifuentes Work Phone: [facility] Work Phone: Start: 07-27-2024 End: 07-27-2024 ambulatory [facility] Work Phone: Start: 07-27-2024 End: 07-27-2024 Patient encounter procedure [facility] Work Phone: Start: 06-29-2024 End: 06-29-2024 ambulatory [facility] Work Phone: Start: 06-29-2024 End: 06-29-2024 Patient encounter procedure [facility] Work Phone: Start: 06-13-2024 ambulatory Joel Lopez ty:[facility] [place] Start: 04-25-2024 End: 06-01-2024 Pre-admission assessment Joel PATEL [facility] Start: 04-25-2024 End: 04-25-2024 Patient encounter procedure Joel PATEL [facility] Start: 03-03-2024 End: 03-03-2024 ambulatory [facility] Work Phone: Start: 03-03-2024 End: 03-03-2024 Patient encounter procedure [facility] Work Phone: Start: 02-15-2024 End: 02-15-2024 ambulatory [facility] Work Phone: Start: 02-15-2024 End: 02-15-2024 Patient encounter procedure [facility] Work Phone: Start: 12-22-2023 Non-patient / Non-visit [facility] Phys[facility] Work Phone: Start: 12-11-2023 End: 12-11-2023 ambulatory [facility] Work Phone: Start: 12-11-2023 End: 12-11-2023 Patient encounter procedure [facility] Physician [facility] Work Phone: Start: 12-08-2023 Non-patient / Non-visit [facility] Work Phone: Start: 12-04-2023 End: 12-04-2023 ambulatory Demetria Cifuentes Other [facility] [employer] Other Start: 12-04-2023 Office outpatient ne w 30 minutes Demetria Cifuentes [facility] Start: 11-30-2023 End: 11-30-2023 ambulatory JOSELINE MOJICA Not Available Start: 10-29-2023 End: 10-29-2023 ambulatory WAN ANGEL Not Available Start: 10-16-2023 End: 10-16-2023 ambulatory Lynn Olivas Other [facility] Other Start: 10-16-2023 Office outpatient vi sit 15 minutes Lynn Olivas [facility] Start: 10-16-2023 End: 10-16-2023 Patient encounter procedure [facility] Work Phone: Start: 01-24-2023 End: 01-24-2023 ambulatory [facility] Work Phone: Start: 01-24-2023 End: 01-24-2023 Patient encounter procedure [facility] [place] Work Phone: Start: 01-23-2023 End: 01-23-2023 ambulatory [facility] Work Phone: Start: 01-23-2023 End: 01-23-2023 Departed Referred [facility] [place] Work Phone: Start: 01-22-2023 End: 01-25-2023 Evaluation and management of inpatient DR NONE LISTED REQUEST Facility: Start: 01-22-2023 End: 01-22-2023 ambulatory [facility] Work Phone: Start: 01-22-2023 End: 01-22-2023 Departed Referred [facility] [place] Work Phone: Start: 09-29-2022 End: 09-29-2022 Departed Referred [employer] WHE[employer]-C Lynn Olivas [facility] [place] Start: 09-29-2022 End: 09-29-2022 ambulatory [employer]-C Lynn Olivas [facility] Work Phone: Start: 09-29-2022 Office outpatient ne w 20 minutes Lynn Olivas [facility] Start: 04-20-2022 End: 04-24-2022 Evaluation and management of inpatient FITO VILLALOBOS [facility] Start: 08-01-2020 Patient encounter procedure Fito JOHNSON Admitting Start: 07-30-2020 End: 08-02-2020 Evaluation and management of inpatient FITO VILLALOBOS [facility] Start: 07-30-2020 [facility] Start: 07-30-2020 End: 08-01-2020 Evaluation and management of inpatient Peace Hayes Work Phone: [address] Onc/Med Surg Comment on above: Suicide attempt by narendra bellamy drug overdose, initial encounter (HCC) (Primary Dx); Toxic metabolic encephalopathy Start: 02-27-2020 End: 02-27-2020 Patient encounter procedure Galileo Mcmanus Work Phone: [facility] Work Phone: Start: 02-26-2020 End: 2020 Evaluation and management of inpatient FITO VILLALOBOS [facility] Start: 02-26-2020 Patient encounter [facility] Start: 02-15-2020 End: 02-16-2020 [facility] Start: 02-15-2020 End: 02-15-2020 Subsequent hospital visit by physician Str Xr Rm 1 [facility] Comment on above: Left knee pain, unsp ecified chronicity Start: 02-14-2020 End: 02-14-2020 Established patient Sofi Dorantes Work Phone: [facility] Work Phone: Start: 02-14-2020 End: 02-14-2020 ambulatory Fito Villalobos Work Phone: [facility] Work Phone: Procedures Date Procedure Procedure Detail Performing Clinician Start: 08-03-2024 X-ray of lumbar spin e, two or three views HAILEE Cifuentes Work Phone: Start: 08-03-2024 X-ray of thoracic sp ine, two views HAILEE Cifuentes Work Phone: Start: 08-03-2020 Glucose blood reagen t strip Harpreet C Vinicio Work Phone: Start: 08-03-2020 Glucose blood reagen t strip Harpreet C Vinicio Work Phone: Start: 08-03-2020 Glucose blood reagen t strip Harpreet C Vinicio Work Phone: Start: 08-03-2020 Hemoglobin glycosyla naresh a1c Sharri Opal Myke[employer] Work Phone: Start: 08-02-2020 Glucose blood reagen t strip Harpreet C Vinicio Work Phone: Start: 08-02-2020 Glucose blood reagen t strip Harpreet C Vinicio Work Phone: Start: 08-02-2020 RHYTHM STRIP REPORT Hpf Scanning Start: 08-02-2020 Glucose blood reagen t strip Harpreet C Vinicio Work Phone: Start: 08-02-2020 Glucose blood reagen t strip Harpreet C Vinicio Work Phone: Start: 08-01-2020 PULSE OXIMETRY, CONTINUOUS FITO GRISELDA Start: 08-01-2020 Glucose blood reagen t strip FITO GRISELDA Start: 08-01-2020 COVID-19, ANTIBODY, TOTAL FITO VILLALOBOS Start: 08-01-2020 COVID-19 FITO JOHN KUHN Start: 08-01-2020 Blood count complete auto&auto difrntl wbc FITO VILLALOBOS Start: 08-01-2020 Comprehensive metabo lic panel FITO VILLALOBOS Start: 08-01-2020 Hepatic function panel FITO VILLALOBOS Start: 08-01-2020 Glucose blood reagen t strip Jean Pierre Barton Work Phone: Start: 08-01-2020 COVID-19, ANTIBODY, TOTAL Lizzeth Patel Work Phone: Start: 08-01-2020 COVID-19 Lizzeth Jesus chaidez Work Phone: Start: 08-01-2020 DISCHARGE PATIENT FITO VILLALOBOS Start: 08-01-2020 PULSE OXIMETRY, CONTINUOUS FITO VILLALOBOS Start: 08-01-2020 Glucose blood reagen t strip Jean Pierre Barton Work Phone: Start: 08-01-2020 SUICIDE PRECAUTIONS RICH VILLALOBOS Start: 08-01-2020 PULSE OXIMETRY, CONTINUOUS FITO VILLALOBOS Start: 08-01-2020 Glucose blood reagen t strip FITO VILLALOBOS Start: 08-01-2020 DIET GENERAL FITO KUHN Start: 08-01-2020 Glucose blood reagen t strip [...] REFLEX TO MG FOR LOW K Del Chaim Work Phone: Start: 08-01-2020 Blood count complete auto&auto difrntl wbc Del Chaim Work Phone: Start: 08-01-2020 Hepatic function panel Lizzeth Jorge Work Phone: Start: 08-01-2020 PULSE OXIMETRY, CONTINUOUS FITO VILLALOBOS Start: 08-01-2020 PULSE OXIMETRY, CONTINUOUS FITO VILLALOBOS Start: 07-31-2020 Glucose blood reagen t strip FITO VILLALOBOS Start: 07-31-2020 PULSE OXIMETRY, CONTINUOUS FITO VILLALOBOS Start: 07-31-2020 Glucose blood reagen t strip Jean Pierre Barton Work Phone: Start: 07-31-2020 Glucose blood reagen t strip FITO VILLALOBOS Start: 07-31-2020 PULSE OXIMETRY, CONTINUOUS FITO VILLALOBOS Start: 07-31-2020 Glucose blood reagen t strip Jean Pierre Barton Work Phone: Start: 07-31-2020 LAB SCANNED REPORT LYDIA VILLALOBOS Start: 07-31-2020 LAB SCANNED REPORT Hpf Scanning Start: 07-31-2020 PULSE OXIMETRY, CONTINUOUS FITO VILLALOBOS Start: 07-31-2020 Glucose blood reagen t strip FITO VILLALOBOS Start: 07-31-2020 Glucose blood reagen t strip Jean Pierre Barton Work Phone: Start: 07-31-2020 IP CONSULT TO PSYCHIATRY FITO VILLALOBOS Start: 07-31-2020 Glucose blood reagen t strip FITO VILLALOBOS Start: 07-31-2020 INITIATE OXYGEN THER APY PROTOCOL FITO VILLALOBOS Start: 07-31-2020 NASAL CANNULA OXYGEN SA HERON VILLALOBOS Start: 07-31-2020 PULSE OXIMETRY, CONTINUOUS FITO VILLALOBOS Start: 07-31-2020 Glucose blood reagen t strip Jean Pierre Barton Work Phone: Start: 07-31-2020 Assay of ammonia FITO VILLALOBOS Start: 07-31-2020 Hepatic function panel FITO SALEHGLADYSAGUSTINAna Start: 07-31-2020 Ecg routine ecg w/le ast 12 lds w/i&r FITO SALEHSYLVIA Start: 07-31-2020 EKG REPORT FITO VELEZANDI KUHN Start: 07-31-2020 SEIZURE PRECAUTIONS RICH SALEHSYLVIA Start: 07-31-2020 PULSE OXIMETRY, CONTINUOUS FITO SALEHGLADYSAGUSTINAna Start: 07-31-2020 Assay of ammonia Lizzeth Patel Work Phone: Start: 07-31-2020 Hepatic function panel Lizzeth Patel Work Phone: Start: 07-31-2020 Ecg routine ecg w/le ast 12 lds trcg only w/o i&r Lizzeth Patel Work Phone: Start: 07-31-2020 EKG REPORT Hpf Scanni ng Start: 07-31-2020 Antidepressants tric yclic other cyclicals 1 or 2 FITO SALEHSYLVIA Start: 07-31-2020 Assay of thyroid stimulating hormone tsh FITO SALEHSYLVIA Start: 07-31-2020 Hemoglobin glycosyla naresh a1c FITO SALEHSYLVIA Start: 07-31-2020 Insulin antibodies LYDIA VELEZDAT Start: 07-31-2020 Lipid panel FITO VELEZANDI KUHN Start: 07-31-2020 Lipoprotein direct measurement ldl cholesterol FITO SALEHSYLVIA Start: 07-31-2020 Unlis misc path FITO Joseph KEELEY Start: 07-31-2020 SUICIDE PRECAUTIONS RICH VELEZDAT Start: 07-31-2020 DAILY WEIGHTS FITO NOE AZAM Start: 07-31-2020 PULSE OXIMETRY, CONTINUOUS FITO SALEHSYLVIA Start: 07-31-2020 Glucose blood reagen t strip FITO SALEHGLADYSAGUSTINAna Start: 07-31-2020 Assay of thyroid stimulating hormone tsh Del Rucker Work Phone: Start: 07-31-2020 AUGIE-65 AUTOANTIBODY Anya Rucker Work Phone: Start: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 normal Thought Content: Denied hallucinations, no homicidality, improving suicidality Insight: fair Judgment: fair Exam Physical Exam Vital Signs: Temp Pulse Resp BP Pulse Ox O2 Del Method 97.7 F 85 16 124/76 98 Room Air 04/03/25 07:30 04/03/25 07:30 04/03/25 07:30 04/03/25 07:30 04/03/25 07:30 04/03/25 07:30 Assessment/Plan Assessment/Plan (1) Bipolar disorder: Plan Patient reported the symptoms are improving, potential discharge for tomorrow --Buspar 5mg BiD -Lexapro 20 mg QAM -Lamictal 25mg BID -Minipress 2mg QHS -Trazadone 150 mg QHS Continue to monitor mental status -Monitor suicidal behaviors for safety of self (15-minute face check). -Encourage medication adherence. Risks, benefits, and alternatives of treatment explained -Recommend? attending groups and psychoeducation for building coping skills. -Risks, benefits and indications of medications were discussed with the patient.? -No abnormal movements noted on exam. AIMS is Zero. -Involve friends/family members to coordinate care and ensure appropriate outpatient appointments are scheduled prior to discharge. Documented By: Ceferino Edwards MD 04/03/25918 Signed By: <Electronically signed by Ceferino Edwards MD> 04/03/[address] [place] [address] Work Phone: [phone]) 222-552006-09-2025 [place] [address] Psychiatry Progress Note Signed Patient: Tracie Ramirez MR#: [id number] : 2000 Acct:[id number] Age/Sex: 25 / M Adm Date: 5 Loc: Room: [address] [place] [address] Type : ADM IN Attending Dr: Blue Talbot MD Copies to: ~ Date of Service: 04/03/2025 Subjective Subjective Narrative: Mr. Ramirez is a 25 year old male on day 3 of his hospitalization for worsening of depression and feeling suicidal. Today, pt presented as anxious, he is waiting to hear back from a rehab center. This is giving him significant stress as he does not know where he would go after discharge. The patient states is alsofeeling paranoid that people are talking about him. He knows this is not true but is causing him distress. The patient does think the medications are working and endorses not SE. Denies SI, AVH. Reports adequate sleep and appetite. Hospitalist came and spoke with him about his hypertriglycemic. Patient was personally seen by me on the day of the encounter. I reviewed the history and performedthe ge elements of the physical examination. I formulated the plan of care and confirmed this withthe medical student as notedbelow. Mental Status Exam: Appearance: grossly normal Mental Status: mental status grossly normal Mood: Improving mood Affect: Improving affect Speech and Movement: speech normal, movement normal Attitude: cooperative Thought Process: normal Thought Content: Denied hallucinations, no homicidality, improving suicidality Insight: fair Judgment: fair Exam Physical Exam Vital Signs: Temp Pulse Resp BP Pulse Ox O2 Del Method 97.7 F 85 16 124/76 98 Room Air 04/03/25 07:30 04/03/25 07:30 04/03/25 07:30 04/03/25 07:30 04/03/25 07:30 04/03/25 07:30 Assessment/Plan Assessment/Plan (1) Bipolar disorder: Plan Patient reported the symptoms are improving, potential discharge for tomorrow --Buspar 5mg BiD -Lexapro 20 mg QAM -Lamictal 25mg BID -Minipress 2mg QHS -Trazadone 150 mg QHS Continue to monitor mental status -Monitor suicidal behaviors for safety of self (15-minute face check). -Encourage medication adherence. Risks, benefits, and alternatives of treatment explained -Recommend? attending groups and psychoeducation for building coping skills. -Risks, benefits and indications of medications were discussed with the patient.? -No abnormal movements noted on exam. AIMS is Zero. -Involve friends/family members to coordinate care and ensure appropriate outpatient appointments are scheduled prior to discharge. Documented By: Ceferino Ewdards MD 04/03/25918 Signed By: 04/03/25 1535 [facility]06-08-2025 Consult note Author Rola Swenson-Rowdy [facility] Note Date/Time April 02, 2025 8:09a m [facility] [address] [place] [address] Hospitalist Consult Note Signed Patient: Tracie Ramirez MR#: [id number] : 2000 Acct:[id number] Age/Sex: 25 / M Adm Date: 5 Loc: 1S Room: [address] [place] [address] Type: ADM IN Attending Dr: Blue Talbot MD Copies to: MD Demetria Hastings APRN, HOSPICE PLAN ADMINISTRATOR Rola Valdes APRN NO FAMILY PHYSICIAN Dayan Perrin MD~ HPI DATE OF CONSULTATION: 04/01/25 REQUESTING PROVIDER: Blue Talbot Consult Narrative Reason for Consult: Hypertriglyceridemia, diabetes HPI: This is a 25-year-old male past medical history significant for hypertriglyceridemia, insulin-dependent diabetes, obesity, depression. Presented to [facility] last evening with suicidal ideation and depression. Transferred to [facility] for ongoing psychiatric management. Hospitalist team is now consulted for ongoing management of elevated triglycerides and diabetes. Patient seen and examined. He is ambulatory in the activities area. Offers no complaints at this time. Indicates has not taken medications in probably at least a month. Denies chest pain or palpitations. No cough, dyspnea, or pain with inspiration. No abdominal pain or indigestion, constipation or diarrhea, nausea or vomiting. No dysuria or retention. No headache or dizziness. No fevers or chills. Review of Systems Review of Systems All other systems reviewed & are negative unless noted below or in HPI [facility] Medical History Chronic pain of left knee Chronic back pain Depression ADHD Diabetic polyneuropathy Anxiety Pancreatitis Hypertriglyceridemia PTSD (post-traumatic stress disorder) Borderline personality disorder Genital herpes simplex DM (diabetes mellitus) Family History Father Hypertension Heart disease Social History Smoking Status: Current every day smoker Tobacco Type: cigarettes Substance Use Type: None Substance Abuse Comment: THC and alcohol Social History Comments: Lives with 2 roommates in an apartment Meds Medications and Allergies Allergies No Known Allergies Allergy (Verified 02/17/25 21:32) Home Medications blood sugar diagnostic #100 ea 06/29/24 [Rx Confirmed 08/01/24] blood-glucose meter #1 ea 06/29/24 [Rx Confirmed 08/01/24] insulin lispro 100 unit/mL subcutaneous pen (Humalog KwikPen (U-100) Insulin) 12unit subcut TIDWM 06/29/24 [History Confirmed 03/31/25] pen needle, diabetic 32 gauge x 1/4 (BD Ultra-Fine Micro Pen Needle) #100 ea 06/29/24 [Rx Confirmed 08/01/24] insulin glargine 100 unit/mL (3 mL) subcutaneous pen (Lantus Solostar U-100 Insulin) 35 unit subcut QPM 01/05/25 [History Confirmed 03/31/25] aripiprazole 400 mg suspension, extended rel.intramuscular syringe (Ramon Trentonviveka) 400 mg IM Q28D #1 ea 01/09/25 [Rx] lamotrigine 25 mg tablet 25 mg PO BID #60 tabs 01/09/25 [Rx Confirmed 03/31/25] trazodone 150 mg tablet 150 mg PO HS #30 tabs 01/09/25 [Rx Confirmed 03/31/25] buspirone 5 mg tablet 5 mg PO BID 03/31/25 [History Confirmed 03/31/25] escitalopram oxalate 10 mg tablet 20 mg PO QAM 03/31/25 [History Confirmed 03/31/25] insulin lispro 100 unit/mL subcutaneous cartridge (Humalog U-100 Insulin) See Protocol subcut DIRECTED 03/31/25 [History Confirmed 03/31/25] prazosin 2 mg capsule 2 mg PO HS 03/31/25 [History Confirmed 03/31/25] fenofibrate nanocrystallized 48 mg tablet 192 mg (4 x 48 mg) PO DAILY #30 tabs 04/01/25 [Rx] Active Medications: Active Medications Generic Name Dose Route Start Last Admin Trade Name Freq PRN Reason Stop Dose Admin Acetaminophen 500 mg 03/31/25 13:14 Acetaminophen 500 Mg Tablet PO 03/31/26 13:13 Q6H PRN Fever or Pain Al Hydrox/Mg Hydrox/Simethicone 30 ml 03/31/25 13:14 Mag Hydrox/Al Hydrox/Simeth 30 Ml Udc PO 03/31/26 13:13 Q6H PRN Indigestion Benztropine Mesylate 0.5 mg 03/31/25 13:14 Benztropine 2 Mg/2 Ml Ampul IM 03/31/26 13:13 Q6H PRN Dystonia Benztropine Mesylate 0.5 mg 03/31/25 13:14 Benztropine 0.5 Mg Tablet PO 03/31/26 13:13 Q6H PRN Dystonia Buspirone HCl 5 mg 03/31/25 21:00 04/01/25 08:12 Buspirone 5 Mg Tablet PO 03/31/26 20:59 5 mg BID AUREA Administration Escitalopram Oxalate 20 mg 04/01/25 09:00 04/01/25 08:12 Escitalopram 20 Mg Tablet PO 04/01/26 08:59 20 mg QAM AUREA Administration Fenofibrate 192 mg 04/01/25 10:35 04/01/25 11:06 Fenofibrate Nanocrystallized 48 Mg Tablet PO 04/01/26 10:34 192 mg DAILY AUREA Administration Hydroxyzine Pamoate 50 mg 03/31/25 13:14 Hydroxyzine Pamoate 50 Mg Capsule PO 03/31/26 13:13 Q6H PRN Anxiety Ibuprofen 400 mg 03/31/25 13:14 Ibuprofen 400 Mg Tablet PO 03/31/26 13:13 Q6H PRN Pain Insulin Aspart 12 units 03/31/25 15:54 04/01/25 11:20 Insulin Aspart 300 Units/3 Ml SUBCUT 03/31/26 15:53 12 units TID.WITH.MEALS AUREA Administration Insulin Aspart 0 units 03/31/25 17:00 04/01/25 11:19 Insulin Aspart 300 Units/3 Ml SUBCUT 03/31/26 16:59 6 units TID.WM.HS AUREA Administration Protocol Insulin Glargine 35 units 03/31/25 21:00 03/31/25 22:46 Insulin Glargine 300 Units/3 Ml Insuln.Pen SUBCUT 03/31/26 20:59 35 units QPM AUREA Administration Lamotrigine 25 mg 03/31/25 21:00 04/01/25 08:12 Lamotrigine 25 Mg Tablet PO 03/31/26 20:59 25 mg BID AUREA Administration Magnesium Hydroxide 30 ml 03/31/25 13:14 Magnesium Hydroxide Susp 30 Ml Udc PO 03/31/26 13:13 Q6H PRN Constipation Nicotine Polacrilex 4 mg 03/31/25 13:35 03/31/25 21:23 Nicotine Polacrilex 2 Mg Gum BUCCAL 03/31/26 13:13 4 mg Q2H PRN Administration Nicotine Cravings Olanzapine 5 mg 03/31/25 13:14 Olanzapine 10 Mg Vial *Nf* IM 03/31/26 13:13 Q6H PRN Agitation Olanzapine 5 mg 03/31/25 13:14 Olanzapine 5 Mg Tablet PO 03/31/26 13:13 Q6H PRN Agitation Prazosin HCl 2 mg 03/31/25 22:00 03/31/25 22:47 Prazosin 1 Mg Capsule PO 03/31/26 21:59 2 mg HS AUREA Administration Sterile Water 2.1 ml 03/31/25 13:14 Water For Injection,Sterile 10 Ml Vial INJECTION 03/31/26 13:13 PRN PRN To dilute OLANZapine (ZyPREXA) Trazodone HCl 50 mg 03/31/25 13:14 Trazodone 50 Mg Tablet PO 03/31/26 13:13 QHS PRN Insomnia Trazodone HCl 150 mg 03/31/25 22:00 03/31/25 22:45 Trazodone 150 Mg Tablet PO 03/31/26 21:59 Not Given HS AUREA Exam Physical Exam Vital Signs: Temp Pulse Resp BP Pulse Ox O2 Del Method 97.6 F 107 H 18 142/89 H 97 Room Air 04/01/25 09:20 04/01/25 09:20 04/01/25 09:20 04/01/25 09:20 04/01/25 09:20 04/01/25 09:20 Narrative: CONST- alert, ambulatory HEAD- normocephalic and atraumatic EENT- sclera nonicteric and conjunctiva nonerythemic, moist oral mucosa, pharynx not visualized NECK- supple, no cervical lymphadenopathy CARDIAC- RRR no abnormal heart tones PULM- diminished without wheeze or rhonchi, RA, no accessory muscle use or cough noted ABD- S/NT, NABS EXTREM- no edema BLE, calves nontender SKIN- W/D, good turgor MS- MAEx4 spontaneously with equal strength NEURO- A&Ox3, speech clear and tongue midline, equal facial symmetry PSYCH-mood and behavior appropriate Results - Hospitalist Consult Lab Results Labs: Laboratory Results - last 72 hr 04/01/25 04:55: Estimat Average Glucose 240, Hemoglobin A1c 10.0 H, Triglycerides 2200 H, Cholesterol 267 H, LDL Cholesterol, Calc TNP, VLDL Cholesterol TNP, HDL Cholesterol 20 L, Cholesterol/HDL Ratio 13.4, 25-OH Vitamin D Total , TSH 3rd Generation 3.72 03/31/25 15:50: POC Glucose 292 Assessment & Plan Assessment/Plan (1) Hypertriglyceridemia: (2) Uncontrolled diabetes mellitus: (3) Diabetic polyneuropathy: (4) Noncompliance: Plan Severe Hypertriglyceridemia, Trigs 2200, Chol 267, HDL 20- chronic Obesity BMI 36.3 Noncompliance -Fenofibrate initiated (have ordered in past during hospitalizations as well- patient noncompliant with refill orders/ follow-up labs) will provide refills at discharge for now -Hx pancreatitis, no current symptoms -low fat diet -check Apolipoprotein B and chylomicrons, repeat fasting lipids. Possibly could benefit on outpatient genetic workup for familial chylomicronemia syndrome depending on results, with availability of new medications -counseled on weight loss, low fat diet, and ongoing EtOH abstinence. Compliance discussed. Patient states he will go back to vegetarian eating, has lost significant weight previously was up to 380 pounds. Alcoholism in remission for 2 years now -outpatient ENDOCRINOLOGY appointment at discharge. Previously discharged from [facility] for nonadherence. Will try to get him set up with Dr. Diaz Uncontrolled diabetes, A1c 10.0 -Glargine, SSIC and fingerstick, mealtime scheduled aspart -labs in AM, labs from [place] unreportable secondary to lipophilic Depression -further plan of care per inpatient psychiatric team for psychoactive medication management/ adjustment and psychotherapy Documented By: Rola Valdes APRN 05/19 1630 Signed By: <Electronically signed by HAILEE Valdes> 04/01/25 1631 <Electronically signed by Dayan Perrin MD> 04/02/25 0809 [facility] Work Phone: 1(590) 539-720206-08-2025 Progress note Author Blue guerrero [facility] Note Date/Time April 02, 2025 6:39a m [facility] [address] [place] [address] Psychiatry Progress Note Signed Patient: Tracie Ramirez MR#: [id number] : 2000 Acct:[id number] Age/Sex: 25 / M Adm Date: 5 Loc: 1S Room: [address] [place] [address] Type : ADM IN Attending Dr: Blue Talbot MD Copies to: ~ Date of Service: 04/02/2025 Subjective Subjective Narrative: Mr. Ramirez said he is tired of the same thing over and over. He is trying to get to a proper aftercare program and connect with case management to discuss finding options. He said the only way to be stable is to find a way to manage his mental health. He was seen by a hospitalist yesterday to discuss his hyperlipidemia. He reports intermittent SI. Mental Status Exam (MSE) Appearance: grossly normal. Fair grooming and hygiene, calm, cooperative, engaged in the interview. Good eye contact. Normal psychomotor activity. Mental Status: mental status grossly normal Mood: , euthymic Affect: mood-congruent affect Speech and Movement: speech and movement normal Regular rate, rhythm, volume, and tone. Non pressured. Attitude: cooperative Thought Process: normal linear, logical, and goal-oriented Thought Content: Denies paranoid or delusional thoughts. Denied hallucinations,no homicidality and positive suicidality. Does not appear to be responding to internal stimuli. Insight: fair Judgment: limited Exam Physical Exam Vital Signs: Temp Pulse Resp BP Pulse Ox O2 Del Method 98.9 F 98 16 127/85 98 Room Air 04/01/25 22:48 04/01/25 22:48 04/01/25 22:48 04/01/25 22:48 04/01/25 22:48 04/01/25 22:48 Objective Labs Labs: Abnormal Labs 04/01/25 04:55 Hemoglobin A1c 10.0 H Assessment/Plan Assessment/Plan (1) Bipolar disorder: Plan Patient reported that he has been feeling suicidal. [facility] [place] [place]. Continue current med regimen Monitor mental status Encourage group participation and psychotherapy Documented By: Blue Talbot MD 5 0086 Signed By: <Electronically signed by Blue Talbot MD> 04/02/25 0639 [facility] Work Phone: 1([phone]) 428-350606-08-2025 [place] [address] Hospitalist Consult Note Signed Patient: Tracie Ramirez MR#: [id number] : 2000 Acct:[id number] Age/Sex: 25 / M Adm Date: 5 Loc: Room: [address] [place] [address] Type: ADM IN Attending Dr: Blue Talbot MD Copies to: MD Demetria Hastings APRN, HOSPICE PLAN ADMINISTRATOR Rola Valdes APRN NO FAMILY PHYSICIAN Dayan Perrin MD~ HPI DATE OF CONSULTATION: 04/01/25 REQUESTING PROVIDER: Blue Talbot Consult Narrative Reason for Consult: Hypertriglyceridemia, diabetes HPI: This is a 25-year-old male past medical history significant for hypertriglyceridemia, insulin-dependent diabetes, obesity, depression. Presented to [facility] last evening with suicidal ideation and depression. Transferred to [facility] for ongoing psychiatric management. Hospitalist team is now consulted for ongoing management of elevated triglycerides and diabetes. Patient seen and examined. He is ambulatory in the activities area. Offers no complaints at this time. Indicates has not taken medications in probably at least a month. Denies chest pain or palpitations. No cough, dyspnea, or pain with inspiration. No abdominal pain or indigestion, constipation or diarrhea, nausea or vomiting. No dysuria or retention. No headache or dizziness. No fevers or chills. Review of Systems Review of Systems All other systems reviewed & are negative unless noted below or in HPI [facility] Medical History Chronic pain of left knee Chronic back pain Depression ADHD Diabetic polyneuropathy Anxiety Pancreatitis Hypertriglyceridemia PTSD (post-traumatic stress disorder) Borderline personality disorder Genital herpes simplex DM (diabetes mellitus) Family History Father Hypertension Heart disease Social History Smoking Status: Current every day smoker Tobacco Type: cigarettes Substance Use Type: None Substance Abuse Comment: THC and alcohol Social History Comments: Lives with 2 roommates in an apartment Meds Medications and Allergies Allergies No Known Allergies Allergy (Verified 02/17/25 21:32) Home Medications blood sugar diagnostic #100 ea 06/29/24 [Rx Confirmed 08/01/24] blood-glucose meter #1 ea 06/29/24 [Rx Confirmed 08/01/24] insulin lispro 100 unit/mL subcutaneous pen (Humalog KwikPen (U-100) Insulin) 12unit subcut TIDWM 06/29/24 [History Confirmed 03/31/25] pen needle, diabetic 32 gauge x 1/4 (BD Ultra-Fine Micro Pen Needle) #100 ea 06/29/24 [Rx Confirmed 08/01/24] insulin glargine 100 unit/mL (3 mL) subcutaneous pen (Lantus Solostar U-100 Insulin) 35 unit subcutQPM 01/05/25 [History Confirmed 03/31/25] aripiprazole 400 mg suspension, extended rel.intramuscular syringe (Ramon Trentonboom) 400 mg IM Q28D #1 ea 01/09/25 [Rx] lamotrigine 25 mg tablet 25 mg PO BID #60 tabs 01/09/25 [Rx Confirmed 03/31/25] trazodone 150 mg tablet 150 mg PO HS #30 tabs 01/09/25 [Rx Confirmed 03/31/25] buspirone 5 mg tablet 5 mg PO BID 03/31/25 [History Confirmed 03/31/25] escitalopram oxalate 10 mg tablet 20 mg PO QAM 03/31/25 [History Confirmed 03/31/25] insulin lispro 100 unit/mL subcutaneous cartridge (Humalog U-100 Insulin) See Protocol subcut DIRECTED 03/31/25 [History Confirmed 03/31/25] prazosin 2 mg capsule 2 mg PO HS 03/31/25 [History Confirmed 03/31/25] fenofibrate nanocrystallized 48 mg tablet 192 mg (4 x 48 mg) PO DAILY #30 tabs 04/01/25 [Rx] Active Medications: Active Medications Generic Name Dose Route Start Last Admin Trade Name Freq PRN Reason Stop Dose Admin Acetaminophen 500 mg 03/31/25 13:14 Acetaminophen 500 Mg Tablet PO 03/31/26 13:13 Q6H PRN Fever or Pain Al Hydrox/Mg Hydrox/Simethicone 30 ml 03/31/25 13:14 Mag Hydrox/Al Hydrox/Simeth 30 Ml Udc PO 03/31/26 13:13 Q6H PRN Indigestion Benztropine Mesylate 0.5 mg 03/31/25 13:14 Benztropine 2 Mg/2 Ml Ampul IM 03/31/26 13:13 Q6H PRN Dystonia Benztropine Mesylate 0.5 mg 03/31/25 13:14 Benztropine 0.5 Mg Tablet PO 03/31/26 13:13 Q6H PRN Dystonia Buspirone HCl 5 mg 03/31/25 21:00 04/01/25 08:12 Buspirone 5 Mg Tablet PO 03/31/26 20:59 5 mg BID AUREA Administration Escitalopram Oxalate 20 mg 04/01/25 09:00 04/01/25 08:12 Escitalopram 20 Mg Tablet PO 04/01/26 08:59 20 mg QAM AUREA Administration Fenofibrate 192 mg 04/01/25 10:35 04/01/25 11:06 Fenofibrate Nanocrystallized 48 Mg Tablet PO 04/01/26 10:34 192 mg DAILY AUREA Administration Hydroxyzine Pamoate 50 mg 03/31/25 13:14 Hydroxyzine Pamoate 50 Mg Capsule PO 03/31/26 13:13 Q6H PRN Anxiety Ibuprofen 400 mg 03/31/25 13:14 Ibuprofen 400 Mg Tablet PO 03/31/26 13:13 Q6H PRN Pain Insulin Aspart 12 units 03/31/25 15:54 04/01/25 11:20 Insulin Aspart 300 Units/3 Ml SUBCUT 03/31/26 15:53 12 units TID.WITH.MEALS AUREA Administration Insulin Aspart 0 units 03/31/25 17:00 04/01/25 11:19 Insulin Aspart 300 Units/3 Ml SUBCUT 03/31/26 16:59 6 units TID.WM.HS AUREA Administration Protocol Insulin Glargine 35 units 03/31/25 21:00 03/31/25 22:46 Insulin Glargine 300 Units/3 Ml Insuln.Pen SUBCUT 03/31/26 20:59 35 units QPM AUREA Administration Lamotrigine 25 mg 03/31/25 21:00 04/01/25 08:12 Lamotrigine 25 Mg Tablet PO 03/31/26 20:59 25 mg BID AUREA Administration Magnesium Hydroxide 30 ml 03/31/25 13:14 Magnesium Hydroxide Susp 30 Ml Udc PO 03/31/26 13:13 Q6H PRN Constipation Nicotine Polacrilex 4 mg 03/31/25 13:35 03/31/25 21:23 Nicotine Polacrilex 2 Mg Gum BUCCAL 03/31/26 13:13 4 mg Q2H PRN Administration Nicotine Cravings Olanzapine 5 mg 03/31/25 13:14 Olanzapine 10 Mg Vial *Nf* IM 03/31/26 13:13 Q6H PRN Agitation Olanzapine 5 mg 03/31/25 13:14 Olanzapine 5 Mg Tablet PO 03/31/26 13:13 Q6H PRN Agitation Prazosin HCl 2 mg 03/31/25 22:00 03/31/25 22:47 Prazosin 1 Mg Capsule PO 03/31/26 21:59 2 mg HS AUREA Administration Sterile Water 2.1 ml 03/31/25 13:14 Water For Injection,Sterile 10 Ml Vial INJECTION 03/31/26 13:13 PRN PRN To dilute OLANZapine (ZyPREXA) Trazodone HCl 50 mg 03/31/25 13:14 Trazodone 50 Mg Tablet PO 03/31/26 13:13 QHS PRN Insomnia Trazodone HCl 150 mg 03/31/25 22:00 03/31/25 22:45 Trazodone 150 Mg Tablet PO 03/31/26 21:59 Not Given HS AUREA Exam Physical Exam Vital Signs: Temp Pulse Resp BP Pulse Ox O2 Del Method 97.6 F 107 H 18 142/89 H 97 Room Air 04/01/25 09:20 04/01/25 09:20 04/01/25 09:20 04/01/25 09:20 04/01/25 09:20 04/01/25 09:20 Narrative: CONST- alert, ambulatory HEAD- normocephalic and atraumatic EENT- sclera nonicteric and conjunctiva nonerythemic, moist oral mucosa, pharynx not visualized NECK- supple, no cervical lymphadenopathy CARDIAC- RRR no abnormal heart tones PULM- diminished without wheeze or rhonchi, RA, no accessory muscle use or cough noted ABD- S/NT, NABS EXTREM- no edema BLE, calves nontender SKIN- W/D, good turgor MS- MAEx4 spontaneously with equal strength NEURO- A&Ox3, speech clear and tongue midline, equal facial symmetry PSYCH-mood and behavior appropriate Results - Hospitalist Consult Lab Results Labs: Laboratory Results - last 72 hr 04/01/25 04:55: Estimat Average Glucose 240, Hemoglobin A1c 10.0 H, Triglycerides 2200 H, Cholesterol 267 H, LDL Cholesterol, Calc TNP, VLDL Cholesterol TNP, HDL Cholesterol 20 L, Cholesterol/HDL Ratio 13.4, 25-OH Vitamin D Total , TSH 3rd Generation 3.72 03/31/25 15:50: POC Glucose 292 Assessment & Plan Assessment/Plan (1) Hypertriglyceridemia: (2) Uncontrolled diabetes mellitus: (3) Diabetic polyneuropathy: (4) Noncompliance: Plan Severe Hypertriglyceridemia, Trigs 2200, Chol 267, HDL 20- chronic Obesity BMI 36.3 Noncompliance -Fenofibrate initiated (have ordered in past during hospitalizations as well- patient noncompliant with refill orders/ follow-up labs) will provide refills at discharge for now -Hx pancreatitis, no current symptoms -low fat diet -check Apolipoprotein B and chylomicrons, repeat fasting lipids. Possibly could benefit on outpatient genetic workup for familial chylomicronemia syndrome depending on results, with availability of new medications -counseled on weight loss, low fat diet, and ongoing EtOH abstinence. Compliance discussed. Patientstates he will go back to vegetarian eating, has lost significant weight previously was up to 380 pounds. Alcoholism in remission for 2 years now -outpatient ENDOCRINOLOGY appointment at discharge. Previously discharged from [facility] for nonadherence. Will try to get him set up with Dr. Diaz Uncontrolled diabetes, A1c 10.0 -Glargine, SSIC and fingerstick, mealtime scheduled aspart -labs in AM, labs from [place] unreportable secondary to lipophilic Depression -further plan of care per inpatient psychiatric team for psychoactive medication management/ adjustment and psychotherapy Documented By: Rola Valdes APRN 05/19 1630 Signed By: 04/01/25 1631 04/02/25 0809 [facility]06-08-2025 [place] [id number] Psychiatry Progress Note Signed Patient: Tracie Ramirez MR#: [id number] : 2000 Acct:[id number] Age/Sex: 25 / M Adm Date: 5 Loc: 1S Room: [address] [place] [address] Type : ADM IN Attending Dr: Blue Talbot MD Copies to: ~ Date of Service: 04/02/2025 Subjective Subjective Narrative: Mr. Ramirez said he is tired of the same thing over and over. He is trying to get to a proper aftercare program and connect with case management to discuss finding options. He said the only way to be stable is to find a way to manage his mental health. He was seen by a hospitalist yesterday to discusshis hyperlipidemia. He reports intermittent SI. Mental Status Exam (MSE) Appearance: grossly normal. Fair grooming and hygiene, calm, cooperative, engaged in the interview.Good eye contact. Normal psychomotor activity. Mental Status: mental status grossly normal Mood: , euthymic Affect: mood-congruent affect Speech and Movement: speech and movement normal Regular rate, rhythm, volume, and tone. Non pressured. Attitude: cooperative Thought Process: normal linear, logical, and goal-oriented Thought Content: Denies paranoid or delusional thoughts. Denied hallucinations,no homicidality and positive suicidality. Does not appear to be responding to internal stimuli. Insight: fair Judgment: limited Exam Physical Exam Vital Signs: Temp Pulse Resp BP Pulse Ox O2 Del Method 98.9 F 98 16 127/85 98 Room Air 04/01/25 22:48 04/01/25 22:48 04/01/25 22:48 04/01/25 22:48 04/01/25 22:48 04/01/25 22:48 Objective Labs Labs: Abnormal Labs 04/01/25 04:55 Hemoglobin A1c 10.0 H Assessment/Plan Assessment/Plan (1) Bipolar disorder: Plan Patient reported that he has been feeling suicidal. [facility] [place] [place] Continue current med regimen Monitor mental status Encourage group participation and psychotherapy Documented By: Blue Talbot MD [id number] Signed By: 04/02/25 0639 [facility]06-07-2025 History and physical note Author Blue guerrero [facility] Note Date/Time April 01, 2025 2:29p m [facility] [address] [place] [address] Psychiatry H&P Signed Patient: Tracie Ramirez MR#: [id number] : 2000 Acct:[id number] Age/Sex: 25 / M Adm Date: 5 Loc: Room: [address] [place] [address] Type: ADM IN Attending Dr: Blue Talbot MD Copies to: Blue Talbot MD NO FAMILY PHYSICIAN~ Date of Service: 04/01/2025 HPI History of Present Illness History of present illness: Mr. Ramirez is a 25 year old male Mx. with a reported history of depression, SI, boderline personality disorder and diabetes who presents for inpatient admissiondue to worsening of depression and feeling suicidal. Reportedly, he was cooperative with admission. Reports attempting to run into traffic yesterday, then poured gasoline over himself. History of suicide attempts in the past. Reports noncompliance with psych meds x 1 week. Oriented to unit. States relationship issues, financial issues causing him stress. Patient was personally seen by me on the day of the encounter. I reviewed the history and performed the ge elements of the assessment. I formulated the planof care and confirmed this with the medical student as noted below At the time of the interview, pt presented as depressed Pt reports a long- standing history of depression and boderline personality disorder manifested as Suicidal ideation. The patient states he awoke in the middle of the night manic and tried to jump in front of traffic, when there was no cars he decided to pourgasoline on himself. He states he stopped taking his medication after they started to make him feel normal I dont like feeling normal, I would rather be bat shit crazy like I am . His girlfriend called the police on him. He states that she broke up with him and now he is homeless. The patient has been calling rehab housing for a place to go after he gets out of here. 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 He was doing well and was there was no preceedingstressors that caused him to feel this way. He denies any AVH or HI. Past psych history: Tracie reports previously being diagnosed with depression with SI, borderline personality disorder, Bipolar Past psych hospitalizations: Many. Most recent hospitalization december 2024 Past suicide attempts: Reported multiple attempts Family psych history: mom: bipolar, dad: Depression Previous medications: Lamictal, Lexapro, Trazodone Alcohol and drug use: Patient admits to prior alcohol use but denies current alcohol use. Pt admits to marijuana use and heavy cigarette use. Living: According to chart review, pt has been living with girlfriend Employment: No job Mental Status Exam (MSE) Appearance: grossly normal. Fair grooming and hygiene, calm, cooperative, engaged in the interview. Good eye contact. Normal psychomotor activity. Mental Status: mental status grossly normal Mood: , euthymic Affect: mood-congruent affect Speech and Movement: speech and movement normal Regular rate, rhythm, volume, and tone. Non pressured. Attitude: cooperative Thought Process: normal linear, logical, and goal-oriented Thought Content: Denies paranoid or delusional thoughts. Denied hallucinations,no homicidality and positive suicidality. Does not appear to be responding to internal stimuli. Insight: fair Judgment: limited Patient's Strengths and Protective Factors: - Willing to comply, good physical health? with treatment during hospitalization Patient's Weaknesses and Risk Factors: - Emotional lability Attitude for Change: - Fair AIMS: no abnormal movements noted. Score is zero.? Review of Systems Constitutional: Pt denies fatigue, malaise. Neuro: Denies dizziness/lightheadedness. Denies TBI, seizure, memory loss. Denies numbness/tingling in extremities. Denies abnormal movements HEENT: Denies vision/hearing changes. Pulmonary: Denies SOB, dyspnea, cough, wheezing. Cardiac: Denies chest pain/pressure. Denies edema, palpitations. GI: Denies abdominal pain, heartburn, N/V. Denies constipation and diarrhea : Denies dysuria, hematuria, polyuria. Physical exam General: not in any acute distress Skin: intact HEENT: head atraumatic, face symmetrical. Pulm: Breathing normally without excessive effort Cardio: Regular rate and rhythm Abdomen: Normal inspection Musculoskeletal: Moves all extremities, normal strength all extremities. Neuro: Pt alert, oriented x3. Gait normal. CNI: Smell intact CNII: Visual bautista intact CNIII,IV,: EOM intact, no nystagmus. CNV: Sensation intact to light touch. CNVII: Raises eyebrows, smile/frown, puff out cheeks symmetrically. CNVIII: Hearing intact bilaterally. CNIX,X: Voice normal, soft palate elevation normal, symmetrical. CNXI: Shoulder shrug strong, equal bilaterally. CNXII: Tongue protrusion midline nsure appropriate outpatient appointments are scheduled prior to discharge. [facility] Medical History (Updated 04/01/25 @ 14:27 by Blue Talbot MD) Chronic pain of left knee Chronic back pain Depression ADHD Diabetic polyneuropathy Anxiety Pancreatitis Hypertriglyceridemia PTSD (post-traumatic stress disorder) Borderline personality disorder Genital herpes simplex DM (diabetes mellitus) Family History Father Hypertension Heart disease Social History Smoking Status: Current every day smoker Tobacco Type: cigarettes Substance Use Type: None Substance Abuse Comment: THC and alcohol Social History Comments: Lives with 2 roommates in an apartment Meds Medications and Allergies Allergies No Known Allergies Allergy (Verified 02/17/25 21:32) Home Medications blood sugar diagnostic #100 ea 06/29/24 [Rx Confirmed 08/01/24] blood-glucose meter #1 ea 06/29/24 [Rx Confirmed 08/01/24] insulin lispro 100 unit/mL subcutaneous pen (Humalog KwikPen (U-100) Insulin) 12unit subcut TIDWM 06/29/24 [History Confirmed 03/31/25] pen needle, diabetic 32 gauge x 1/4 (BD Ultra-Fine Micro Pen Needle) #100 ea 06/29/24 [Rx Confirmed 08/01/24] insulin glargine 100 unit/mL (3 mL) subcutaneous pen (Lantus Solostar U-100 Insulin) 35 unit subcut QPM 01/05/25 [History Confirmed 03/31/25] aripiprazole 400 mg suspension, extended rel.intramuscular syringe (Abiliyeyo Maintena) 400 mg IM Q28D #1 ea 01/09/25 [Rx] lamotrigine 25 mg tablet 25 mg PO BID #60 tabs 01/09/25 [Rx Confirmed 03/31/25] trazodone 150 mg tablet 150 mg PO HS #30 tabs 01/09/25 [Rx Confirmed 03/31/25] buspirone 5 mg tablet 5 mg PO BID 03/31/25 [History Confirmed 03/31/25] escitalopram oxalate 10 mg tablet 20 mg PO QAM 03/31/25 [History Confirmed 03/31/25] insulin lispro 100 unit/mL subcutaneous cartridge (Humalog U-100 Insulin) See Protocol subcut DIRECTED 03/31/25 [History Confirmed 03/31/25] prazosin 2 mg capsule 2 mg PO HS 03/31/25 [History Confirmed 03/31/25] Exam Physical Exam Vital Signs: Temp Pulse Resp BP Pulse Ox O2 Del Method 97.6 F 107 H 18 142/89 H 97 Room Air 04/01/25 09:20 04/01/25 09:20 04/01/25 09:20 04/01/25 09:20 04/01/25 09:20 04/01/25 09:20 Assessment/Plan (1) Bipolar disorder: Plan Patient reported that he has been feeling suicidal Restart home meds and adjust accordingly Monitor mental status Encourage group participation and psychotherapy Documented By: Blue Talbot MD [id number] Signed By: <Electronically signed by Blue Talbot MD> 04/01/25 8620 [facility] Work Phone: 1(707) 813-478406-07-2025 [place] [address] Psychiatry H&P Signed Patient: Tracie Ramirez MR#: [id number] : 2000 Acct:[id number] Age/Sex: 25 / M Adm Date: 5 Loc: Room: [address] [place] [address] Type: ADM IN Attending Dr: Blue Talbot MD Copies to: Blue Talbot MD NO FAMILY PHYSICIAN~ Date of Service: 04/01/2025 HPI History of Present Illness History of present illness: Mr. Ramirez is a 25 year old male Mx. with a reported history of depression, SI, boderline personalitydisorder and diabetes who presents for inpatient admissiondue to worsening of depression and feeling suicidal. Reportedly, he was cooperative with admission. Reports attempting to run into traffic yesterday, then poured gasoline over himself. History of suicide attempts in the past. Reports noncompliance with psych meds x 1 week. Oriented to unit. States relationship issues, financial issues causing him stress. Patient was personally seen by me on the day of the encounter. I reviewed the history and performedthe ge elements of the assessment. I formulated the planof care and confirmed this with the medical student as noted below At the time of the interview, pt presented as depressed Pt reports a long- standing history of depression and boderline personality disorder manifested as Suicidal ideation. The patient states he awoke in the middle of the night manic and tried to jump in front of traffic, when there was no cars he decided to pourgasoline on himself. He states he stopped taking his medication after they started tomake him feel normal I dont like feeling normal, I would rather be bat shit crazy like I am . His girlfriend called the police on him. He states that she broke up with him and now he is homeless. The patient has been calling rehab housing for a place to go after he gets out of here. 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 He was doing well and was there was no preceedingstressors that caused him to feel this way. He denies any AVH or HI. Past psych history: Tracie reports previously being diagnosed with depression with SI, borderline personality disorder, Bipolar Past psych hospitalizations: Many. Most recent hospitalization december 2024 Past suicide attempts: Reported multiple attempts Family psych history: mom: bipolar, dad: Depression Previous medications: Lamictal, Lexapro, Trazodone Alcohol and drug use: Patient admits to prior alcohol use but denies current alcohol use. Pt admitsto marijuana use and heavy cigarette use. Living: According to chart review, pt has been living with girlfriend Employment: No job Mental Status Exam (MSE) Appearance: grossly normal. Fair grooming and hygiene, calm, cooperative, engaged in the interview.Good eye contact. Normal psychomotor activity. Mental Status: mental status grossly normal Mood: , euthymic Affect: mood-congruent affect Speech and Movement: speech and movement normal Regular rate, rhythm, volume, and tone. Non pressured. Attitude: cooperative Thought Process: normal linear, logical, and goal-oriented Thought Content: Denies paranoid or delusional thoughts. Denied hallucinations,no homicidality and positive suicidality. Does not appear to be responding to internal stimuli. Insight: fair Judgment: limited Patient's Strengths and Protective Factors: - Willing to comply, good physical health? with treatment during hospitalization Patient's Weaknesses and Risk Factors: - Emotional lability Attitude for Change: - Fair AIMS: no abnormal movements noted. Score is zero.? Review of Systems Constitutional: Pt denies fatigue, malaise. Neuro: Denies dizziness/lightheadedness. Denies TBI, seizure, memory loss. Denies numbness/tinglingin extremities. Denies abnormal movements HEENT: Denies vision/hearing changes. Pulmonary: Denies SOB, dyspnea, cough, wheezing. Cardiac: Denies chest pain/pressure. Denies edema, palpitations. GI: Denies abdominal pain, heartburn, N/V. Denies constipation and diarrhea : Denies dysuria, hematuria, polyuria. Physical exam General: not in any acute distress Skin: intact HEENT: head atraumatic, face symmetrical. Pulm: Breathing normally without excessive effort Cardio: Regular rate and rhythm Abdomen: Normal inspection Musculoskeletal: Moves all extremities, normal strength all extremities. Neuro: Pt alert, oriented x3. Gait normal. CNI: Smell intact CNII: Visual bautista intact CNIII,IV,: EOM intact, no nystagmus. CNV: Sensation intact to light touch. CNVII: Raises eyebrows, smile/frown, puff out cheeks symmetrically. CNVIII: Hearing intact bilaterally. CNIX,X: Voice normal, soft palate elevation normal, symmetrical. CNXI: Shoulder shrug strong, equal bilaterally. CNXII: Tongue protrusion midline nsure appropriate outpatient appointments are scheduled prior to discharge. [facility] Medical History (Updated 04/01/25 @ 14:27 by Blue Talbot MD) Chronic pain of left knee Chronic back pain Depression ADHD Diabetic polyneuropathy Anxiety Pancreatitis Hypertriglyceridemia PTSD (post-traumatic stress disorder) Borderline personality disorder Genital herpes simplex DM (diabetes mellitus) Family History Father Hypertension Heart disease Social History Smoking Status: Current every day smoker Tobacco Type: cigarettes Substance Use Type: None Substance Abuse Comment: THC and alcohol Social History Comments: Lives with 2 roommates in an apartment Meds Medications and Allergies Allergies No Known Allergies Allergy (Verified 02/17/25 21:32) Home Medications blood sugar diagnostic #100 ea 06/29/24 [Rx Confirmed 08/01/24] blood-glucose meter #1 ea 06/29/24 [Rx Confirmed 08/01/24] insulin lispro 100 unit/mL subcutaneous pen (Humalog KwikPen (U-100) Insulin) 12unit subcut TIDWM 06/29/24 [History Confirmed 03/31/25] pen needle, diabetic 32 gauge x 1/4 (BD Ultra-Fine Micro Pen Needle) #100 ea 06/29/24 [Rx Confirmed 08/01/24] insulin glargine 100 unit/mL (3 mL) subcutaneous pen (Lantus Solostar U-100 Insulin) 35 unit subcutQPM 01/05/25 [History Confirmed 03/31/25] aripiprazole 400 mg suspension, extended rel.intramuscular syringe (Ramon Benítez) 400 mg IM Q28D #1 ea 01/09/25 [Rx] lamotrigine 25 mg tablet 25 mg PO BID #60 tabs 01/09/25 [Rx Confirmed 03/31/25] trazodone 150 mg tablet 150 mg PO HS #30 tabs 01/09/25 [Rx Confirmed 03/31/25] buspirone 5 mg tablet 5 mg PO BID 03/31/25 [History Confirmed 03/31/25] escitalopram oxalate 10 mg tablet 20 mg PO QAM 03/31/25 [History Confirmed 03/31/25] insulin lispro 100 unit/mL subcutaneous cartridge (Humalog U-100 Insulin) See Protocol subcut DIRECTED 03/31/25 [History Confirmed 03/31/25] prazosin 2 mg capsule 2 mg PO HS 03/31/25 [History Confirmed 03/31/25] Exam Physical Exam Vital Signs: Temp Pulse Resp BP Pulse Ox O2 Del Method 97.6 F 107 H 18 142/89 H 97 Room Air 04/01/25 09:20 04/01/25 09:20 04/01/25 09:20 04/01/25 09:20 04/01/25 09:20 04/01/25 09:20 Assessment/Plan (1) Bipolar disorder: Plan Patient reported that he has been feeling suicidal Restart home meds and adjust accordingly Monitor mental status Encourage group participation and psychotherapy Documented By: Blue Talbot MD [id number] Signed By: 04/01/25 1429 [facility]03-13-2025 Evaluation note* Diagnosis Onset Date Resolution Status Admit Date Depression acute January 05 4:51pm DM (diabetes mellitus) acute [facility] 2024 4:51pm Hyperlipidemia acute December 4:51pm Hypertriglyceridemia acute [facility] 2024 4:51pm Noncompliance acute January 05, 2025 4:51pm Depression with suicidal ideation re solved January 05, 2025 4:51pm [facility] Work Phone: 1(362) 519-419203-13-2025 Evaluation note* Diagnosis Onset Date Resolution Status Admit Date Depression acute January 05 4:51pm DM (diabetes mellitus) acute [facility] 2024 4:51pm Hypertriglyceridemia acute [facility] 2024 4:51pm Noncompliance acute January 05, 2025 4:51pm Depression with suicidal ideation re solved January 05, 2025 4:51pm Hyperlipidemia resolved December 4:51pm Bipolar disorder acute March 12:58pm Diabetic polyneuropathy acute 2024 12:58pm Hypertriglyceridemia acute March 31, 2025 12:58pm Noncompliance acute March 31, 025 12:58pm Uncontrolled diabetes mellitus acute March 31, 2025 12:58pm [facility] Work Phone: 1(833) 312-215810-10-2024 Consult note Author Mauricio White [facility] August 04, 2024 9:47am Note Date/Time August 03, 2024 4: 13pm [facility] [address] [place] [address] Hospitalist Consult Note Signed Patient: Tracie Ramirez MR#: [id number] : 2000 Acct:[id number] Age/Sex: 24 / M Adm Date: 4 Loc: Room: [address] [place] [address] Type: ADM IN Attending Dr: Blue Talbot MD Copies to: MD Demetria Hastingsr, ELECTRIC RANGE ASSEMBLER, HOSPICE PLAN ADMINISTRATOR HAILEE Dickens, DO~ HPI DATE OF CONSULTATION: 08/03/24 REQUESTING [...] negative unless noted below or in HPI [facility] Medical History Pancreatitis Hypertriglyceridemia PTSD (post-traumatic [...] % (Auto) 59.5, Lymph % (Auto) 34.6, Davis % (Auto) 4.6, Eos % (Auto) 0.7, Baso % (Auto) 0.6, Nucleat RBC Rel Count 0.3, Neut # (Auto) 5.1, Lymph # (Auto) 3.0, Davis # (Auto) 0.4, Eos # (Auto) 0.1, [...] imaging -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 Type 2 diabetes-insulin, SSIC. Glucosuria noted and A1c in June was greater than 10. Will need to follow-up outpatient with PCP Depression -Further plan of care per inpatient psychiatric team for psychoactive medicationmanagement/dosing and psychotherapy Documented By: Rola Valdes APRN 07/19 1611 Signed By: <Electronically signed by HAILEE Valdes> 08/03/24 1639 <Electronically signed by Mauricio White DO> 08/04/24 0994 [facility] Work Phone: 1(752) 877-420810-10-2024 Progress note Author Blue guerrero [facility] August 04, 2024 8:38am Note Date/Time August 04, 2024 8 :38am [facility] [address] [place] [address] Psychiatry Progress Note Signed Patient: Tracie Ramirez MR#: [id number] : 2000 Acct:[id number] Age/Sex: 24 / M Adm Date: 4 Loc: Room: 3D9338-3 Type : ADM IN Attending Dr: Blue Talbot MD Copies to: ~ Date of Service: 08/04/2024 Subjective Subjective Narrative: Mr. Ramirez said he feeling better. He is trying to find proper aftercare plans. Patient stated that he has been going through several stressors. He was recentlylaid off and broke up with GF. He is working with his telephonic case manager on finding proper aftercare plans. MSE Appearance: [...] <Electronically signed by Blue Talbot MD> 08/04/24 0811 [facility] Work Phone: 1([phone]) 229-203510-09-2024 Progress note Author Bule guerrero [facility] August 03, 2024 6:54am Note Date/Time August 03, 2024 6: 51am [facility] [address] [place] [address] Psychiatry Progress Note Signed Patient: Tracie Ramirez MR#: [id number] : 2000 Acct:[id number] Age/Sex: 24 / M Adm Date: 4 Loc: Room: [address] [place] [address] Type : ADM IN Attending Dr: Blue Talbot MD Copies to: ~ Date of Service: 08/03/2024 Subjective Subjective Narrative: Mr. Ramirez is a 24-year-old male who presents for [...] provided. Documented By: Blue Talbot MD [id number] Signed By: <Electronically signed by Blue Talbot MD> 08/03/24 0655 [facility] Work Phone: [phone] History and physical note Author Blue guerrero [facility] August 02, 2024 6:45am Note Date/Time August 01, 2024 11 :35am [facility] [address] [place] [address] Psychiatry H&P Signed Patient: Tracie Ramirez MR#: [id number] : 2000 Acct:[id number] Age/Sex: 24 / M Adm Date: 4 Loc: Room: [address] [place] [address] Type: ADM IN Attending Dr: Blue Talbot MD Copies to: MD Demetria Hastings APRN, ANDERSON~ Date of Service: 08/02/2024 HPI History of Present Illness History of present illness: Mr. Ramirez is a 24-year-old male who presents for [...] never here. We have 1 note about [facility] Past suicide attempts: He endorses 1 [...] to internal stimuli. Insight: limited Judgment: limited PMFSH Medical History PTSD (post-traumatic stress disorder) Borderline [...] Appearance Clear Urine pH 6.0 Ur Specific [place] 1.034 H Urine Protein 20 H Urine Glucose (UA) >=1000 H Urine Ketones 1+ H Urine Occult Blood Negative Urine Nitrite Negative Ur Leukocyte Esterase Negative Urine RBC 1-2 Urine WBC 1-2 Assessment/Plan (1) Depression with suicidal ideation: Plan Admit to 1S for management of depression and to ensure [...] signed by Blue Talbot MD> 08/02/24 0645 [facility] Work Phone: 1(154) 430-342107-01-2024 Hospital Discharge instructions Patient Education 04/25/2024 11:57:14 [...] require a prescription. You can also purchase jeth-gkk-beymqms medicines. Medicines may have nicotine in them [...] and encouragement. Call telephone quitlines, such as 8-171-TFSC-NOW, reach out to support groups, or work [...] provider. Document Revised: 10/03/2022 Document Reviewed: 10/03/2022 [employer] Patient Education 2022 [employer]. 04/25/2024 11:56:01 Vasectomy, Care After Vasectomy, Care [...] Follow these instructions at home: Medicines Take krhh-von-pozvbcm and prescription medicines only as told by [...] provider. Document Revised: 02/28/2021 Document Reviewed: 02/28/2021 [employer] Patient Education 2022 [employer]. 04/25/2024 11:56:01 Vasectomy Vasectomy Vasectomy is a [...] including vitamins, herbs, eye drops, creams, and wznu-obc-kmholvo medicines. Any problems you or family members [...] provider tells you to take them. ?Taking cicv-tjv-fllherq medicines, vitamins, herbs, and supplements. You may [...] provider. Document Revised: 02/28/2021 Document Reviewed: 02/28/2021 [employer] Patient Education 2022 [employer]. Follow Up Care 12/07/2023 14:35:43 With:JORGE GALINDO, Joel Barber, URL Address: [facility] [address] , [place] [address]- [phone] When: Unknown Comments:sched vasectomy [facility] 02-09-2024 Evaluation note* Encounter Date Diagnosis Assessment Notes [...] You have been given educational handouts. Nov, director long term care (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 (ICD-10 - Z79.4) [employer] Other 12-22-2023 Evaluation note* Encounter Date Diagnosis [...] with his PCP to restart these medications. [employer] Other 12-05-2022 Evaluation note* Encounter Date Diagnosis [...] Other Sexually transmitted infections material was printed [employer] Other Evaluation + Plan note Future Appointments Appointment Date:05/27/2024 09:00:00 AM Scheduled Provider: Location:[facility] Appointment Type:Urology CALL PAT FT Appointment Date:05/31/2024 10:00:00 AM Scheduled Provider: Location:[facility] Appointment Type:Urology FT Appointment Date:06/13/2024 09:30:00 AM Scheduled Provider:Joel APTEL MD:[facility] Appointment Type:URO Office Visit [facility] evaluation noteNo assessment information available [facility] Work Phone: Evaluation note* Diagnosis Onset Date Resolution Status Bronchitis acute DM (diabetes mellitus) acute [facility] Work Phone: Evaluation note* Diagnosis Onset Date Resolution Status Bronchitis acute Acute adjustment disorder with anxiety acute Chronic back pain acute Chronic pain of left knee ac [place] Depression acute DM (diabetes mellitus) acute Hyperlipidemia acute Neuropathy acute Cellulitis of neck acute Chronic back pain acute Chronic pain of left knee ac [place] [facility] Work Phone: Evaluation note* Diagnosis Onset Date Resolution Status DM (diabetes mellitus) acute Neuropathy acute [facility] Work Phone: Evaluation note* Diagnosis Onset Date Resolution Status Acute adjustment disorder with anxiety acute ADHD acute Chronic back pain acute DM (diabetes mellitus) acute Hyperlipidemia acute Neuropathy acute Noncompliance acute ADHD acute Chronic back pain acute Neuropathy acute Noncompliance acute [facility] Work Phone: Evaluation note* Diagnosis Onset Date Resolution Status Acute adjustment disorder with anxiety acute ADHD acute Chronic back pain acute DM (diabetes mellitus) acute Hyperlipidemia acute Neuropathy acute Noncompliance acute ADHD acute Chronic back pain acute Neuropathy acute Noncompliance acute Chronic back pain acute Depression with suicidal ideation acute DM (diabetes mellitus) acute Hypertriglyceridemia acute [facility] Work Phone: Evaluation note* Diagnosis Onset Date Resolution Status Admit Date Depression acute January 05 4:51pm [facility] Work Phone: History general Narrative - Reported* Type Description Date Medical History DM (diabetes mellitus) [employer] Other History general Narrative - Reported* Type Description Date Medical History DM (diabetes mellitus) Medical History Arth[facility] [employer] Other Hospital course Narrative No data available for this section [facility] Hospital Discharge instructions No data available for this section [facility] Hospital Discharge instructionsAmbulatory Orders* Referral to Endocrinology Location: None Selected [facility] Work Phone: Hospital Discharge instructions Additional Instructions Rest Avoid electronics Return here if any problems persist [facility]: Progress note No data available for this section [facility] Reason for Referral No Reason for Referral RecordedNo Reason for Referral RecordedNo Reason for Referral RecordedNo InformationNo InformationNo Information No data available for this section No data available for this section Assessments Findings Encounter Date Diabetes Risk Test Score was four score 02/14/2020 Open Access - Established with Fito Villalobos [facility] 02/14/2020 F31.31 - Bipolar disorder, c urrent episode depressed, mild Open Access - Established with Fito Villalobos [facility] 02/14/2020 M25.562 - Pain in left knee Open Access - Established with Fito Villalobos [facility] 02/14/2020 Morbid obesity Open Access - Establ ished with Fito Villalobos [facility] 02/14/2020 Z68.41 - Body mass index (BM I) 40.0-44.9, adult Open Access - Established with Fito Villalobos [facility] 02/14/2020 Findings Encounter Date Cannabis abuse - episodic Established Patient with Sofi Jose E [employer] 02/14/2020 Mood disorders, NOS Established Patie nt with Sofi Jose E [facility] 02/14/2020 Nicotine dependence Established Patie nt with Sofi Jose E [facility] 02/14/2020 Post-traumatic stress disorder Establ ished Patient with Sofi Jose E [facility] 02/14/2020 Diabetes Risk Test Score was four score 02/14/2020 Open Access - Established with Fito Villalobos [facility] 02/14/2020 F31.31 - Bipolar disorder, c urrent episode depressed, mild Open Access - Established with Fito Villalobos [facility] 02/14/2020 M25.562 - Pain in left knee Open Access - Established with Fito Villalobos [facility] 02/14/2020 Morbid obesity Open Access - Establ ished with Fito Villalobos [facility] 02/14/2020 Z68.41 - Body mass index (BM I) 40.0-44.9, adult Open Access - Established with Fito Villalobos [facility] 02/14/2020 Diagnosis Left knee pain, [...] - 08/01/2020 9:58 PM EDT Discharged to [facility] via [facility]. All personal belongings given. * Kamille Rea RN - 08/01/2020 6:58 PM EDT Called [facility] at [phone]. Spoke with Gabriela to let her know that pt's COVID test was negative. They will contact [facility] for transport.Pt will be going to room [facility]. * Lluvia Jones RCP - 08/01/2020 6:15 PM EDT RAPID Covid 19 swab taken from right nare, labeled, placed in red dot bag, and handed off to [facility] worker outside of room for transport to laboratory per hospital policy and procedure. Patient tolerated procedure fairly well. * Lizzeth Patel MD - 08/01/2020 3:45 PM EDT Patient seen and examined in his room. No acute events overnight. Labs reviewed. Afebrile and hemodynamically stable. Patient medically cleared for transfer to [facility] Lizzeth Patel MD PGY-2, Internal Medicine Resident [facility] 08/01/2020 3:49 PM * Kamille Rea RN - 08/01/2020 3:[address] Anderson has a note in for patient. Note is in incomplete tab. Plan is to admit to inpatient psychiatric unit. Perfectserve sent to medical to review pt for clearance to transfer. * Del Rucker MD - 08/01/2020 7:48 AM EDT [facility] Internal Medicine Teaching Residency Program Inpatient Daily Progress Note Patient: Tracie Ramirez Date of : 2000 Acct: [id number] Room: [facility]7/0447- Admit date: 07/30/2020 Today's date: 08/01/20 Number [...] will see the pt at 5pm. 08/01/2020 [facility] Psych[facility]ry consult today unable to see [...] resolved hospital problems. * Intentional medication overdose [facility] Serial EKG bradycardia to sinus rhythm. [...] Rucker MD Internal Medicine Resident, PGY- 1 [facility]; [place], [place] 08/01/2020, 7:48 AM Associated attestation - Jean Pierre Barton MD - 08/01/2020 5:57 PM EDT Attending Supervising Physician s Attestation Statement I have seen and examined Tracie Ramirez and the ge elements of all parts [...] is going to pink slip patient. Patricia PATTERN WHEEL MAKER sent acouple of messages in regards to [...] Not Seen Note DATE: 07/31/2020 Name: Tracie Ramirez : 2000 Patient not available for Occupational Therapy due to: Per RN, pt independent. Pt with no OT acute care needs at this time, will defer OT eval. Please re-order OT if pt needs change during this admission. Next Scheduled Treatment: NA * Brenda Rivero, PT - 07/31/2020 1:34 PM EDT Physical Therapy DATE: 07/31/2020 NAME: Tracie Ramirez : 2000 Patient not seen this date [...] 08/03/2020 at 11:00 am. This is through [facility]. The office number is [phone]. The fax number for the practice is [phone]. Information was provided by patient's mother. * Del Rucker MD - 07/31/2020 6:30 AM EDT [facility] Internal Medicine Teaching Residency Program Inpatient Daily Progress Note Patient: Tracie Ramirez Date of : 2000 Acct: [id number] Room: 0447/0447-01 Admit date: 07/30/2020 Today's date: 07/31/20 Number [...] Rucker MD Internal Medicine Resident, PGY- 1 [facility]; [place], [place] 07/31/2020, 6:30 AM Associated attestation - Jean Pierre Barton MD - 07/31/2020 4:05 PM EDT Attending Supervising Physician s Attestation Statement I have seen and examined Tracie Ramirez and the ge elements of all parts [...] Lizzeth Patel MD PGY-2, Internal Medicine Resident [facility] 07/31/2020 4:40 AM documented in this encounter [...] FoundDocuments on File Type Date Recorded Patient Auditor In Charge Expl anation Advance Directives and Living Will Power of System Operation Superintendent Documents on File Type Date Recorded Patient Auditor In Charge Expl anation Advance Directives and Living Will Power of System Operation Superintendent Latest Code Status on File Code Status Date Activated Date Inactivated Comments Full Code 02/27/2020 12:09 AM Documents on File Type Date Recorded Patient Auditor In Charge Expl anation ACP-Advance Directive ACP-Power of System Operation Superintendent Latest Code Status on File Code Status Date Activated Date Inactivated Comments Full Code 08/01/2020 10:32 PM Full Code 07/30/2020 9:53 PM 08/01/2020 10:30 PM Full Code 02/27/2020 12:09 AM 2020 3:10 PM Documents on File Type Date Recorded Patient Auditor In Charge Expl anation ACP-Advance Directive ACP-Power of System Operation Superintendent Latest Code Status on File Code Status [...] Complaint Amb Documentation cough, congestion Amb Documentation [facility] d/c Reason for Visit Bronchitis DM (diabetes mellitus) Chief Complaint Amb Documentation cough, congestion Amb Documentation [facility] d/c check up Reason for Visit Bronchitis [...] with suicidal ideation January 05, 2025 4:51pm Chief Complaint Admit Date BH January 05, 2025 10: 13am SI January 05, 2025 4:5 1pm SI January 06, 2025 10: 37am Migraine February 17, 2025 8:5 9pm Unknown March 31, 2025 3:44a m Major Depression March 31, 2025 12:58 pm Chief Complaint Admit Date SI January 05, 2025 4:5 1pm SI January 06, 2025 10: 37am Migraine February 17, 2025 8:5 9pm Unknown March 31, 2025 3:44a m BH March 31, 2025 9:39a m Major Depression March 31, 2025 12:58 pm Major Depression April 01, 2025 11:43 am Reason for Visit Admit Date Depression January 05, 2025 4:5 1pm DM (diabetes mellitus) January 05, 2025 4:51pm Hypertriglyceridemia January 05, 2025 4: 51pm Noncompliance January 05, 2025 4:5 1pm Depression with suicidal ideation January 05, 2025 4:51pm Hyperlipidemia January 05, 2025 4:5 1pm Bipolar disorder March 31, 2025 12:58 pm Diabetic polyneuropathy March 31, 2025 1 2:58pm Hypertriglyceridemia March 31, 2025 12:5 8pm Noncompliance March 31, 2025 12:58 pm Uncontrolled diabetes mellitus March 31, 2025 12:58pm Additional Source Comments Evaluations & Outcomes (unre [...] section and content) DATE CREATED AUTHOR 03/11/[address] [facility] DATE CREATED AUTHOR AUTHOR'S ORGANIZ ATION 08/14/2020 [facility] DATE CREATED AUTHOR AUTHOR'S ORGANIZ ATION 04/25/2022 [facility] DATE CREATED AUTHOR AUTHOR'S ORGANIZ ATION 02/02/2023 [facility] DATE CREATED AUTHOR AUTHOR'S ORGANIZ ATION 03/06/2023 [facility] DATE CREATED AUTHOR AUTHOR'S ORGANIZ ATION 12/01/2023 [facility] EPIC DATE CREATED AUTHOR AUTHOR'S ORGANIZ ATION 04/22/2025 [facility] DATE CREATED AUTHOR AUTHOR'S ORGANIZ ATION 05/03/2025 Isaac Placer [facility] DATE CREATED AUTHOR AUTHOR'S ORGANIZ ATION 05/13/2025 [facility] DATE CREATED AUTHOR AUTHOR'S ORGANIZ ATION 05/29/2025 [facility] Reason for Visit (unrecogniz ed section and content) Reason Comments Ingestion Status Reason Specialty Diagnoses / Procedures Referre d By Contact Referred To Contact Diagnoses Suicide attempt by multiple drug overdose, initial encounter (HCC) Suicide attempt by multiple drug overdose, initial encounter (HCC) Marixa Degroot MD [address] [place] [address] [facility] Care Teams (unrecognized sec tion and content) Team Status: Active Member Role Status Dates PHYSICIAN NO FAMILY Primary Care Provider Active Team Status: Inactive [...] 2025 End: January 09, 2025 Latasha Nettles , ANGELO Other Provider Active Start: Narendra benito 2024 End: January 09, 2025 Alicia Rivas , ANGELO Other Provider Active Start: [facility] 2024 End: January 09, 2025 Juan M [...] Ari Blackmon MD Other Provider Active Start: [facility] 2024 End: January 09, 2025 Rola Valdes APRN Other Provider Active Start: January 05, 2025 End: January 09, 2025 Aryan Santos MD Other Provider Active Start: January 05, 2025 End: January 09, 2025 Victor Hugo Menjivar MD Other Provider Active Start: [facility] 2024 End: January 09, 2025 Helen Hernandez MD Other Provider Active Start: January 05, 2025 End: January 09, 2025 Leti Tucker MD Other Provider Active Start: January 05, 2025 End: January 09, 2025 Mauricio White DO Other Provider Active Start: January 05, 2025 End: January 09, 2025 Nubia Dhaliwal MD Other Provider Active Start: [facility] 2024 End: January 09, 2025 Panchito Ferro MD Other Provider Active Start: [facility] 2024 End: January 09, 2025 Gabriela Montanez NP-C Other Provider Active St art: January 05, 2025 End: January 09, 2025 Veronica Danielle APRN Other Provider Active Star t: January 05, 2025 End: January 09, 2025 Ramesh Garcia MD Other Provider Active Start: January 05, 2025 End: January 09, 2025 Oz Carrillo MD Other Provider Active Start: [facility] 2024 End: January 09, 2025 Salty Pena MD Other Provider Active Start: [facility] 2024 End: January 09, 2025 Adry Weeks MD Other Provider Active Star t: January 05, 2025 End: January 09, 2025 Tony Wayne MD Other Provider Active Start: [facility] 2024 End: January 09, 2025 Katie Cantu , Other Provider Active Start: [facility] 2024 End: January 09, 2025 Escobar Jones [...] Wilfred Moreno MD Other Provider Active Start: [facility] 2024 End: January 09, 2025 Hudson [...] January 05, 2025 End: January 09, 2025 Balir Ni MD Other Provider Active Start: January 05, 2025 End: January 09, 2025 Mesha Vasquez APRN Other Provider Active Star t: January 05, 2025 End: January 09, 2025 Xiomy Rocha MD Other Provider Active Start: [facility] 2024 End: January 09, 2025 Sam Wolfe MD Other Provider Active Start: [facility] 2024 End: January 09, 2025 Emeka Cantor MD Other Provider Active Start: January 05, 2025 End: January 09, 2025 Ari Hazel MD Other Provider Active Start : January 05, 2025 End: January 09, 2025 Wale Beck MD Other Provider Active Start: [facility] 2024 End: January 09, 2025 Nicolasa Cramer APRN Other Provider Active Sta rt: January 05, 2025 End: January 09, 2025 Nathaniel Garcia APRN Other Provider Active Start: January 05, 2025 End: January 09, 2025 Saloni Curiel RN Other Provider Active Start: [facility] 2024 End: January 09, 2025 Ceferino [...] Start : January 06, 2025 Ria Leach , ANGELO Other Provider Active Star t: January 06, 2025 Latasha Nettles , ANGELO Other Provider Active Start: [facility] 2024 Alicia Rivas , ANGELO Other Provider Active Start: [facility] 2024 Juan M Beltran MD Other Provider [...] Ari Blackmon MD Other Provider Active Start: [facility] 2024 Rola Valdes APRN Other Provider Active Start: January 06, 2025 Aryan Santos MD Other Provider Active Start: January 06, 2025 Victor Hugo Menjivar MD Other Provider Active Start: [facility] 2024 Helen Hernandez MD Other Provider Active Start: January 06, 2025 Leti Tucker MD Other Provider Active Start: January 06, 2025 Mauricio White DO Other Provider Active Start: January 06, 2025 Nubia Dhaliwal MD Other Provider Active Start: [facility] 2024 Panchito Ferro MD Other Provider Active Start: [facility] 2024 Gabriela Montanez , PATTERN WHEEL MAKER-C Other Provider Active St art: January 06, 2025 Veronica Danielle APRN Other Provider Active Star t: January 06, 2025 Ramesh Garcia MD Other Provider Active Start: January 06, 2025 Oz Carrillo MD Other Provider Active Start: [facility] 2024 Salty Pena MD Other Provider Active Start: [facility] 2024 Adry Weeks MD Other Provider Active Star t: January 06, 2025 Tony Wayne MD Other Provider Active Start: [facility] 2024 Katie Cantu , Other Provider Active Start: [facility] 2024 Escobar Jones DO Other Provider Active [...] Wilfred Moreno MD Other Provider Active Start: [facility] 2024 Hudson Turner MD Other Provider Active S tart: January 06, 2025 Francisco Javier Lynne , Other Provider Active Star t: January 06, 2025 Karrie Dean , Other Provider Active Start: January 06, 2025 Darius Pena MD Other Provider Active Start: January 06, 2025 Blair Ni MD Other Provider Active Start: January 06, 2025 Mesha Vasquez APRN Other Provider Active Star t: January 06, 2025 Xiomy Rocha MD Other Provider Active Start: [facility] 2024 Sam Wolfe MD Other Provider Active Start: [facility] 2024 Emeka Cantor MD Other Provider Active Start: January 06, 2025 Ari Hazel MD Other Provider Active Start : January 06, 2025 Wale Beck MD Other Provider Active Start: [facility] 2024 Nicolasa Cramer APRN Other Provider Active Sta rt: January 06, 2025 Nathaniel Garcia APRN Other Provider Active Start: January 06, 2025 Saloni Curiel RN Other Provider Active Start: [facility] [facility] Team Status: Inactive Member Role Status Dates [facility] Primary Care Provider Ac tive Start: February 17, 2025 End: February 17, 2025 Guillermina Shetty APRN Emergency Provider Active Start: February 17, 2025 End: February 17, 2025 Team Status: Inactive Member Role Status Dates Kris Gross MD Attending Provider Active St art: March 31, 2025 End: March 31, 2025 Team Status: Active Member Role Status Dates Demetria Cifuentes APRN [employer] Primary Care Provider Active Start: March 31, 2025 Blue Talbot MD Attending Provider Active Start: March 31, 2025 Team Status: Inactive Member Role Status Dates PHYSICIAN NO FAMILY Primary Care Provider Active Start: March 31, 2025 End: April 05, 2025 Blue Talbot MD Admit Provide r, Attending Provider Active Start: March 31, 2025 End: April 05, 2025 Yane Kaur RN Other Provider Active Star t: March 31, 2025 End: April 05, 2025 Tiffanie Genao RN Other Provider Active Start : March 31, 2025 End: April 05, 2025 Ria Leach RN Other Provider Active Star t: March 31, 2025 End: April 05, 2025 Latasha Nettles RN Other Provider Active Start: J une 2024 End: April 05, 2025 Alicia Rivas RN Other Provider Active Start: ne 2024 End: April 05, 2025 Annamarie Whitten RN Other Provider Active Start: J une 2024 End: April 05, 2025 Juan M Beltran MD Other Provider Active Start: March 31, 2025 End: April 05, 2025 Amber Dillon DO Other Provider Active Start : March 31, 2025 End: April 05, 2025 Delano Vicente MD Other Provider Active Start : March 31, 2025 End: April 05, 2025 Von Roberts DO Other Provider Active Start: March 31, 2025 End: April 05, 2025 Flex Govea MD Other Provider Active Start: March 31, 2025 End: April 05, 2025 Sunshine Couch MD Other Provider Active Start : March 31, 2025 End: April 05, 2025 Mauricio Alcazar DO Other Provider Active St art: March 31, 2025 End: April 05, 2025 Ari Blackmon MD Other Provider Active Start: 2024 End: April 05, 2025 Rola Valdes APRN Other Provider Active Start: March 31, 2025 End: April 05, 2025 Aryan Santos MD Other Provider Active Start: March 31, 2025 End: April 05, 2025 Victor Hugo Menjivar MD Other Provider Active Start: J 2024 End: April 05, 2025 Helen Hernandez MD Other Provider Active Start: March 31, 2025 End: April 05, 2025 Leti Tucker MD Other Provider Active Start: March 31, 2025 End: April 05, 2025 Mauricio White DO Other Provider Active Start: March 31, 2025 End: April 05, 2025 Nubia Dhaliwal MD Other Provider Active Start: Ju ne 2024 End: April 05, 2025 Panchito Ferro MD Other Provider Active Start: Mar End: April 05, 2025 CHELSEA Horne Other Provider Active St art: March 31, 2025 End: April 05, 2025 Veronica Danielle APRN Other Provider Active Star t: March 31, 2025 End: April 05, 2025 Ramesh Garcia MD Other Provider Active Start: March 31, 2025 End: April 05, 2025 Oz Carrillo MD Other Provider Active Start: 2024 End: April 05, 2025 Salty Pena MD Other Provider Active Start: Mar End: April 05, 2025 Adry Weeks MD Other Provider Active Star t: March 31, 2025 End: April 05, 2025 Tony Wayne MD Other Provider Active Start: Brendan william 2024 End: April 05, 2025 Katie Cantu DO Other Provider Active Start: Bisi 2024 End: April 05, 2025 Escobar Jones DO Other Provider Active Start : March 31, 2025 End: April 05, 2025 Lynnette Garcia APRN Other Provider Active Start: March 31, 2025 End: April 05, 2025 Manohar Carter DO Other Provider Active Start: March 31, 2025 End: April 05, 2025 Dayan Perrin MD Other Provider Active Sta rt: March 31, 2025 End: April 05, 2025 Iza Finley APRN Other Provider Active Start : March 31, 2025 End: April 05, 2025 Hanna Correa APRN Other Provider Active St art: March 31, 2025 End: April 05, 2025 Wilfred Moreno MD Other Provider Active Start: Brendan 2024 End: April 05, 2025 Hudson Turner MD Other Provider Active S tart: March 31, 2025 End: April 05, 2025 Francisco Javier Lynne DO Other Provider Active Star t: March 31, 2025 End: April 05, 2025 Karrie Dean DO Other Provider Active Start: March 31, 2025 End: April 05, 2025 Darius Pena MD Other Provider Active Start: March 31, 2025 End: April 05, 2025 Blair Ni MD Other Provider Active Start: March 31 End: April 05, 2025 Mesha Vasquez APRN Other Provider Active Star t: March 31, 2025 End: April 05, 2025 Xiomy Rocha MD Other Provider Active Start: J une 2024 End: April 05, 2025 Sam Wolfe MD Other Provider Active Start: 2024 End: April 05, 2025 Emeka Cantor MD Other Provider Active Start: March 31, 2025 End: April 05, 2025 Ari Hazel MD Other Provider Active Start : March 31, 2025 End: April 05, 2025 Wale Beck MD Other Provider Active Start: 2024 End: April 05, 2025 Nicolasa Cramer APRN Other Provider Active Sta rt: March 31, 2025 End: April 05, 2025 Nathaniel Garcia APRN Other Provider Active Start: March 31, 2025 End: April 05, 2025 Saloni Curiel RN Other Provider Active Start: 2024 End: April 05, 2025 Team Status: Active Member Role Status Dates PHYSICIAN NO FAMILY Primary Care Provider Active Start: April 01, 2025 Blue Talbot MD Admit Provide r, Attending Provider, Other Provider Active Start: April 01, 2025 Yane Kaur RN Other Provider Active Star t: April 01, 2025 Tiffanie Genao RN Other Provider Active Start : April 01, 2025 Ria Leach , ANGELO Other Provider Active Star t: April 01, 2025 Latasha Nettles , ANGELO Other Provider Active Start: J une 2024 Alicia Rivas RN Other Provider Active Start: 2024 Annamarie Whitten , ANGELO Other Provider Active Start: J une 2024 Juan M Beltran MD Other Provider Active Start: April 01, 2025 Amber Dillon DO Other Provider Active Start : April 01, 2025 Delano Vicente MD Other Provider Active Start : April 01, 2025 Von Roberts DO Other Provider Active Start: April 01, 2025 Flex Govea MD Other Provider Active Start: April 01, 2025 Sunshine Couch MD Other Provider Active Start : April 01, 2025 Mauricio Alcazar DO Other Provider Active St art: April 01, 2025 Ari Blackmon MD Other Provider Active Start: 2024 Rola Valdes APRN Other Provider Active Start: April 01, 2025 Aryan Santos MD Other Provider Active Start: April 01, 2025 Victor Hugo Menjivar MD Other Provider Active Start: 2024 Helen Hernandez MD Other Provider Active Start: April 01, 2025 Leti Tucker MD Other Provider Active Start: April 01, 2025 Mauricio White DO Other Provider Active Start: April 01, 2025 Nubia Dhaliwal MD Other Provider Active Start: 2024 Panchito Ferro MD Other Provider Active Start: Mar Gabriela Montanez NP-C Other Provider Active St art: April 01, 2025 Veronica Danielle APRN Other Provider Active Star t: April 01, 2025 Ramesh Garcia MD Other Provider Active Start: April 01, 2025 Oz Carrillo MD Other Provider Active Start: 2024 Salty Pena MD Other Provider Active Start: Mar Adry Weeks MD Other Provider Active Star t: April 01, 2025 Tony Wayne MD Other Provider Active Start: 2024 Katie Cantu DO Other Provider Active Start: 2024 Escobar Jones DO Other Provider Active Start : April 01, 2025 Lynnette Garcia APRN Other Provider Active Start: April 01, 2025 Manohar Carter DO Other Provider Active Start: April 01, 2025 Dayan Perrin MD Other Provider Active Sta rt: April 01, 2025 Iza Finley APRN Other Provider Active Start : April 01, 2025 Hanna Correa APRN Other Provider Active St art: April 01, 2025 Wilfred Moreno MD Other Provider Active Start: 2024 Hudson Turner MD Other Provider Active S tart: April 01, 2025 Francisco Javier Lynne , Other Provider Active Star t: April 01, 2025 Karrie Dean , DO Other Provider Active Start: April 01, 2025 Darius Pena MD Other Provider Active Start: April 01, 2025 Blair Ni MD Other Provider Active Start: April 01 Mesha Vasquez APRN Other Provider Active Star t: April 01, 2025 Xiomy Rocha MD Other Provider Active Start: J une 2024 Sam Wolfe MD Other Provider Active Start: Ju ne 2024 Emeka Cantor MD Other Provider Active Start: April 01, 2025 Ari Hazel MD Other Provider Active Start : April 01, 2025 Wale Beck MD Other Provider Active Start: J une 2024 Nicolasa Cramer APRN Other Provider Active Sta rt: April 01, 2025 Nathaniel Garcia APRN Other Provider Active Start: April 01, 2025 Saloni Curiel RN Other Provider Active Start: J une 2024 Team Status: Inactive Member Role Status Dates Shaikh Swapnil MD Attending Provider Active Team Status: Inactive Member Role Status Dates NON STAFF Attending Provider Active Team Status: Inactive Member Role Status Dates Lynn Olivas NP-C Attending Provider Active Team Status: Active Member Role Status Dates Demetria Cifuentes APRN [employer] Primary Care Provider Active Team Status: Inactive Member Role Status Dates Lynn Olivas NP-Daniel Attending Provider Active S tart: October 16, 2023 End: October 16, 2023 Team Status: Active Member Role Status Dates PHYSICIAN NO FAMILY Primary Care Provider Active Start: December 08, 2023 Carolina Gill Attending Provider Active Start: December 08, 2023 Team Status: Inactive Member Role Status Dates Demetria Cifuentes APRN [employer] Primary Care Provider Active Start: December [id number] End: December 11, 2023 Lynn Olivas NP-Daniel Attending Provider Active S tart: December 11, 2023 End: December 11, 2023 Team Status: Active Member Role Status Dates PHYSICIAN NO FAMILY Primary Care Provider Active Start: December 08, 2023 Carolina Gill LPN Attending Provider Active S tart: December 08, 2023 Team Status: Active Member Role Status Dates Demetria Cifuentes APRN [employer] Primary Care Provider Active Start: December 222023 ADONIS Marlow Attending Provider Active Start : December 22, 2023 Team Status: Inactive Member Role Status Dates Demetria Cifuentes APRN [employer]C Primary Care Provider, Attending Provider Active Start: February 15, 2024 End: February 15, 2024 Team Status: Inactive Member Role Status Dates Demetria Cifuentes APRN [employer] Primary Care Provider, Attending Provider Active Start: March 03, 2024 End: March 03, 2024 Team Status: Inactive Member Role Status Dates Demetria Cifuentes APRN [employer] Primary Care Provider, Attending Provider Active Start: June 29, 2024 End: June 29, 2024 Team Status: Inactive Member Role Status Dates Demetria Cifuentes APRN [employer] Primary Care Provider, Attending Provider Active Start: July 27, 2024 End: July 27, 2024 Team Status: Active Member Role Status Dates Demetria Cifuentes APRN [employer]-C Primary Care Provider Active Start: July Yane Briscoe DO Emergency Provider Active Start: August 01, 2024 Blue Talbot MD Admit Provide r, Attending Provider Active Start: August 01, 2024 Team Status: Inactive Member Role Status Dates Demetria Cifuentes APRN [employer] Primary Care Provider Active Start: July End: [...] Alicia Rivas RN Other Provider Active Start: Nirmal [id number] End: August 04, 2024 Amber Dillon DO [...] 01, 2024 End: August 04, 2024 Aryan Snatos MD Other Provider Active Start: August 01, [...] Ferro MD Other Provider Active Start: Jul End: August 04, 2024 OLIVA HorneC Other [...] 2023 End: August 04, 2024 Katie Cantu , Other Provider Active Start: Oc tober 2023 End: August 04, 2024 Escobar Jones , Other Provider Active Start : August 01, 2024 End: August 04, 2024 Lynnette Garcia APRN Other Provider Active Start: August 01, 2024 End: August 04, 2024 Manohar Carter , Other Provider Active Start: August 01, 2024 [...] 2024 End: August 04, 2024 Karrie Dean , Other Provider Active Start: August 01, 2024 [...] Member Role Status Dates Demetria Cifuentes APRN [employer]-C Primary Care Provider Active Start: July Yane [...] Team Status: Active Member Role Status Dates [facility] Primary Care Provider Ac tive Team Status: Active Member Role Status Dates Demetria Cifuentes APRN [employer]-C Primary Care Provider Active Start: January 05, 2025 Blue Talbot MD Attending Provider Active Start: January 05, 2025 Team Status: Active Member Role Status Dates PHYSICIAN NO FAMILY Primary Care Provider Active Start: March 31, 2025 Blue Talbot MD Admit Provide r, Attending Provider Active Start: March 31, 2025 Goals (unrecognized section and content) Goals [...] BE BASED ON THE PRIMARY CLINICAL RECORDS. [employer] provides no warranty or guarantee of the accuracy or completeness of information in this document.
--- NOTE | 2025-07-15 13:01 | ED.GENADUL1 ---
HPI HPI - General Adult General Chief complaint: Psychiatric Symptoms Stated complaint: SUICIDAL IDEATION Time Seen by Provider: 07/15/25 12:33 Source: patient Mode of arrival: ambulance History of Present Illness HPI narrative: 25-year-old male presents to the emergency department because of a comment he made to a police chief. He told the police chief that he should just take the gun out of his holster and shoot him. They have been called because of an argument between the patient and his girlfriend. The patient states that he did not mean it and he was just trying to get a reaction and he has no intention of harming himself. He did not do anything to hurt himself. He states he got high on marijuana yesterday but no other drugs and he did not drink alcohol. Related Data Home Medications ?Medication ?Instructions ?Recorded ?Confirmed buspirone 5 mg tablet mg 03/31/25 escitalopram oxalate 10 mg tablet 10 mg PO DAILY 03/31/25 03/31/25 escitalopram oxalate 20 mg tablet 20 mg PO DAILY 03/31/25 03/31/25 lamotrigine 25 mg tablet 25 mg PO DAILY 03/31/25 03/31/25 prazosin 2 mg capsule 2 mg PO DAILY 03/31/25 03/31/25 Allergies Allergy/AdvReac Type Severity Reaction Status Date / Time No Known Drug Allergies Allergy Verified 03/31/25 03:46 Opioid HPI Opioid Management Most Recent Opioid Data: Last Pain Scale 2 06/19/23, 23:41 Ur Phencyclidine Scrn, (NEGATIVE) Negative Today, 14:30 Review of Systems ROS Narrative A ten point review of systems is negative except as noted above. [facility] Medical History (Updated 07/15/25 @ 15:32 by Otoniel Henderson MD) Borderline personality disorder ?F60.3 - Borderline personality disorder (ICD-10) Hypertension ?I10 - Essential (primary) hypertension (ICD-10) Social History Little interest or pleasure in doing things: not at all Feeling down, depressed, or hopeless: not at all Exam Narrative Exam Narrative: Nurses note and vital signs reviewed and patient is not hypoxic. General: The patient appears well and in no apparent distress. Patient is resting comfortably on cart. Skin: Warm, dry, no pallor noted. There is no rash noted. Head: Normocephalic, atraumatic Eye: Normal conjunctiva, no drainage Ears, Nose, Mouth, and Throat: oral mucosa is moist. Nares patent. Cardiovascular: Regular Rate and Rhythm Respiratory: Patient is in no distress, no accessory muscle use, lungs are clear to auscultation, no wheezing, rales or rhonchi Back: non-tender, no CVA tenderness bilaterally to percussion. GI: Soft and nontender Musculoskeletal: The patient has no evidence of calf tenderness, no pitting edema, symmetrical pulses noted bilaterally Neurological: A&O, normal speech Psychiatric: Cooperative Constitutional Vital Signs, click to edit/add: Last Vital Signs Temp 98.5 F 07/15/25 12:35 Pulse 96 H 07/15/25 12:35 Resp 07/15/25 12:35 BP 135/110 H 07/15/25 12:35 Pulse Ox 96 07/15/25 12:35 O2 Del Method Room Air 07/15/25 12:35 Course Vital Signs Vital signs: Vital Signs Temperature 98.5 F 07/15/25 12:35 Pulse Rate 96 H 07/15/25 12:35 Respiratory Rate 07/15/25 12:35 Blood Pressure 135/110 H 07/15/25 12:35 Pulse Oximetry 96 07/15/25 12:35 Oxygen Delivery Method Room Air 07/15/25 12:35 Temperature 98.5 F 07/15/25 12:35 Pulse Rate 96 H 07/15/25 12:35 Respiratory Rate 07/15/25 12:35 Blood Pressure 135/110 H 07/15/25 12:35 Pulse Oximetry 96 07/15/25 12:35 Oxygen Delivery Method Room Air 07/15/25 12:35 Medical Decision Making MDM Narrative Medical decision making narrative: The patient is medically cleared. He has spoken to mental health services and they have cleared him to go home with a safety plan. Differential Diagnosis Differential Diagnosis: Suicidal ideation, situational anxiety, impulse control issue Lab Data Lab results reviewed: Yes I reviewed the patient's lab results Labs: Lab Results 07/15/25 07/15/25 Range/Units 14:01 14:30 WBC 6.4 (4.0-11.0) 10^3/uL RBC 6.09 (4.70-6.10) 10^6/uL Hgb 18.7 H (14.0-18.0) g/dL Hct 50.0 (42.0-54.0) % MCV 82.1 (80.0-94.0) fL MCH 30.7 (25.9-34.0) pg MCHC 37.4 H (29.9-35.2) g/dL RDW 12.3 (11.0-15.0) % Plt Count 152 (150-450) 10^3/uL MPV 10.1 (9.5-13.5) fL Neut % (Auto) 70.3 (43.0-75.0) % Lymph % (Auto) 21.2 (20.5-60.0) % Baldwin % (Auto) 6.2 (1.7-12.0) % Eos % (Auto) 0.6 L (0.9-7.0) % Baso % (Auto) 0.6 (0.2-2.0) % Neut # (Auto) 4.5 (1.4-6.5) 10^3/uL Lymph # (Auto) 1.4 (1.2-3.8) 10^3/uL Baldwin # (Auto) 0.4 (0.3-0.8) 10^3/uL Eos # (Auto) 0.0 (0.0-0.7) 10^3/uL Baso # (Auto) 0.0 (0.0-0.1) 10^3/uL Abs Immat Gran (auto) 0.07 H (0.00-0.03) 10^3/uL Imm/Tot Granulo (auto) 1.1 H (0.0-0.5) % Sodium 137 (136-145) mmol/L Potassium 4.2 (3.5-5.1) mmol/L Chloride 99 (98-107) mmol/L Carbon Dioxide 28.2 (21.0-32.0) mmol/L Anion Gap 14.0 BUN 11.0 (7.0-18.0) mg/dL Creatinine 1.00 (0.70-1.30) mg/dL Est GFR ( Amer) >60 (>=60 mL/min/1.73m^2) Est GFR (Non-Af Amer) >60 (>=60 mL/min/1.73m^2) BUN/Creatinine Ratio 11.0 Glucose 377 H (74-106) mg/dL Calcium 9.2 (8.5-10.1) mg/dL Urine Color Yellow (YELLOW) Urine Clarity Clear (CLEAR) Urine pH 6.0 (5.0-9.0) Ur Specific [place] 1.020 (1.005-1.025) Urine Protein 30 A (NEG/TRACE) mg/dL Urine Glucose (UA) >=1000 A (NEGATIVE) mg/dL Urine Ketones Negative (NEGATIVE) mg/dL Urine Occult Blood Negative (NEGATIVE) Urine Nitrite Negative (NEGATIVE) Urine Bilirubin Negative (NEGATIVE) Urine Urobilinogen 0.2 (0.2-1.0) EU/dL Ur Leukocyte Esterase Negative (NEGATIVE) Urine RBC None seen (0-2) #/HPF Urine WBC None seen (NONE SEEN) #/HPF Ur Squamous Epith Cells Rare (NONE/RARE) #/LPF Urine Crystals None seen (None Seen) #/HPF Urine Bacteria Trace A (NONE SEEN) #/HPF Urine Casts None seen (NONE SEEN) #/LPF Urine Mucus None seen (NONE SEEN) Ur Culture Indicated? No Salicylates <2.8 (<=19.9) mg/dL Urine Opiates Screen Negative (NEGATIVE) Ur Buprenorphine Scrn Negative (NEGATIVE) Ur Oxycodone Screen Negative (NEGATIVE) Urine Methadone Screen Negative (NEGATIVE) Acetaminophen <2.0 L (10.0-30.0) ug/mL Ur Barbiturates Screen Negative (NEGATIVE) U Tricyclic Antidepress Negative (NEGATIVE) Ur Phencyclidine Scrn Negative (NEGATIVE) Ur Amphetamines Screen Negative (NEGATIVE) U Methamphetamines Scrn Negative (NEGATIVE) U Benzodiazepines Scrn Negative (NEGATIVE) Urine Cocaine Screen Negative (NEGATIVE) U Cannabinoids Screen Positive A (NEGATIVE) Ethanol Quant <3 mg/dL Discharge Plan Discharge Chief Complaint: Psychiatric Symptoms Clinical Impression: Situational anxiety Patient Disposition: Home, Self-Care Time of Disposition Decision: 15:32 Condition: Good Mode of Transportation: Private Vehicle Prescriptions / Home Meds: No Action buspirone 5 mg tablet escitalopram oxalate 10 mg tablet 10 mg PO DAILY escitalopram oxalate 20 mg tablet 20 mg PO DAILY lamotrigine 25 mg tablet 25 mg PO DAILY prazosin 2 mg capsule 2 mg PO DAILY Print Language: Danish Instructions: Anxiety (ED) Additional Instructions: Safety plan per mental health services. Referrals: Physician,Non-Staff, MD [Primary Care Provider] - 1 week
--- NOTE | 2025-07-15 13:31 | ECG_ITS ---
The Test Date: 2025-07-15 Pat Name: TRACIE LOTT Department: Room: - Gender: Male Ware[employer]: : 2000 Requested By: Order Number: [id number] Reading MD: KHUSHBOO COVARRUBIAS M.D. Measurements Intervals [place] Rate: 95 P: 49 [place]: 154 QRS: 73 QRSD: 100 T: 30 QT: 324 QTc: 377 Interpretive Statements 1100 Sinus rhythm 9110 normal ECG Compared to ECG 03/31/2025 03:48:50 No significant changes Electronically Signed On 07-16-2025 13:52:04 EDT by KHUSHBOO COVARRUBIAS M.D.
[2025-07-15 14:26] LABS: Hematocrit 50.0 % (42.0-54.0); Hemoglobin 18.7 g/dL (14.0-18.0); Immature Granulocytes Abs Auto 0.07 10^3/uL (0.00-0.03); Immature Granulocytes Pct Auto 1.1 % (0.0-0.5); Lymphocytes Absolute Auto 1.4 10^3/uL (1.2-3.8); Mean Corpuscular HGB Conc 37.4 g/dL (29.9-35.2); Mean Corpuscular Hemoglobin 30.7 pg (25.9-34.0); Mean Corpuscular Volume 82.1 fL (80.0-94.0); Platelet Count 152 10^3/uL (150-450); Red Blood Count 6.09 10^6/uL (4.70-6.10); White Blood Count 6.4 10^3/uL (4.0-11.0)
[2025-07-15 14:46] LABS: Anion Gap 14.0; Blood Urea Nitrogen 11.0 mg/dL (7.0-18.0); Calcium 9.2 mg/dL (8.5-10.1); Carbon Dioxide 28.2 mmol/L (21.0-32.0); Chloride 99 mmol/L (98-107); Estimated GFR (African America >60 (>=60 mL/min/1.73m^2); Estimated GFR (Non-African Ame >60 (>=60 mL/min/1.73m^2); Glucose 377 mg/dL (74-106); Potassium 4.2 mmol/L (3.5-5.1); Salicylate <2.8 mg/dL (<=19.9); Sodium 137 mmol/L (136-145)
[2025-07-15 14:50] LABS: Glucose Urine UA >=1000 mg/dL (NEGATIVE)
[2025-07-15 15:00] LABS: Acetaminophen <2.0 ug/mL (10.0-30.0)
[2025-07-15 15:10] LABS: Cannabinoid Screen Urine POSITIVE (NEGATIVE); Cast Seen? NONE SEEN #/LPF (NONE SEEN); Crystals Seen? None Seen #/HPF (None Seen); Methamphetamines Screen Urine NEGATIVE (NEGATIVE); Tricyclic Antidepressant Urine NEGATIVE (NEGATIVE)
[2025-07-15 15:11] LABS: Urine Culture Indicated NO
== END 2025-07-15 15:53 | disposition home or self-care (01) ==
PROVIDERS: Emergency Provider Emergency Medicine
DX: F41.8 Other specified anxiety disorders (principal)
CPT/HCPCS: 36415; 80048; 80179; 80307; 80320; 80329; 81001; 85025; 93005; 99284

== ENCOUNTER 2025-07-25 15:08 | Emergency (ER) | payer MEDICAID, SELFPAY ==
[2025-07-25 15:12] VITALS: BP 112/88; PULSE 108; TEMP 36.8; O2SAT 98; BMI 37.3
--- NOTE | 2025-07-25 16:21 | XR_ITS ---
[place] [id number] Patient Name: TRACIE LOTT MRN: [id number] date: 2000 Sex: M Assigned Patient Location: ER Current Patient Location: ED.MAIN Accession/Order Number: [id number] Exam Date: 07/25/2025 16:15 Report Date: 07/25/2025 16:42 At the request of: DANAE SANFORD Procedure: XR foot RT min 3V 3 views right foot plain film COMPARISON:None HISTORY: Swelling of the right foot. BB marker placed in region of drainage. ACUTE FINDINGS: None DEGENERATIVE CHANGE: Unremarkable SOFT TISSUE FINDINGS: No subcutaneous air. No radiodense foreign body. JOINT EFFUSION: None POSTOP CHANGES: None BONE MINERALIZATION: Adequate XR/XR foot RT min 3V IMPRESSION: No radiodense foreign body. No subcutaneous air. Impression dictated by: Stephen Shrestha M.D. 07/25/2025 4:42 PM Dictation Location: [facility] Electronically authenticated by: [id number] Y Date: 07/25/2025 16:42
--- NOTE | 2025-07-25 18:52 | ED.GENADUL1 ---
HPI HPI - General Adult General Chief complaint: Skin/Abscess/Foreign Body Stated complaint: DIABETIC/ INFECTION ON RIGHT FOOT Time Seen by Provider: 07/25/25 15:19 Source: patient Mode of arrival: walk-in Limitations: no limitations Related Data Home Medications ?Medication ?Instructions ?Recorded ?Confirmed buspirone 5 mg tablet mg 03/31/25 escitalopram oxalate 10 mg tablet 10 mg PO DAILY 03/31/25 03/31/25 escitalopram oxalate 20 mg tablet 20 mg PO DAILY 03/31/25 03/31/25 lamotrigine 25 mg tablet 25 mg PO DAILY 03/31/25 03/31/25 prazosin 2 mg capsule 2 mg PO DAILY 03/31/25 03/31/25 Previous Rx's ?Medication ?Instructions ?Recorded sulfamethoxazole 800 1 tab PO BID 7 days #14 tabs 07/25/25 mg-trimethoprim 160 mg tablet (Bactrim DS) Allergies Allergy/AdvReac Type Severity Reaction Status Date / Time No Known Drug Allergies Allergy Verified 07/25/25 15:12 Opioid HPI Opioid Management Most Recent Opioid Data: Last Pain Scale 2 Today, 15:12 Ur Phencyclidine Scrn, (NEGATIVE) Negative 07/15/25, 14:30 PFSH PFSH Medical History (Updated 07/25/25 @ 16:43 by CLARIBEL Graff) Borderline personality disorder ?F60.3 - Borderline personality disorder (ICD-10) Hypertension ?I10 - Essential (primary) hypertension (ICD-10) Social History Little interest or pleasure in doing things: not at all Feeling down, depressed, or hopeless: not at all Exam Constitutional Vital Signs, click to edit/add: Last Vital Signs Temp 98.2 F 07/25/25 15:12 Pulse 108 H 07/25/25 15:12 Resp 20 07/25/25 15:12 BP 112/88 07/25/25 15:12 Pulse Ox 98 07/25/25 15:12 Course Vital Signs Vital signs: Vital Signs Temperature 98.2 F 07/25/25 15:12 Pulse Rate 108 H 07/25/25 15:12 Respiratory Rate 20 07/25/25 15:12 Blood Pressure 112/88 07/25/25 15:12 Pulse Oximetry 98 07/25/25 15:12 Temperature 98.2 F 07/25/25 15:12 Pulse Rate 108 H 07/25/25 15:12 Respiratory Rate 20 07/25/25 15:12 Blood Pressure 112/88 07/25/25 15:12 Pulse Oximetry 98 07/25/25 15:12 Medical Decision Making MDM Narrative Medical decision making narrative: ATTENDING ADDENDUM: Dr. Cottrell Patient seen and evaluated at bedside with midlevel provider. Agree with plan. Lab Data Labs: Lab Results 07/25/25 Range/Units 16:12 POC Glucose 260 H (74-106) mg/dL Discharge Plan Discharge Chief Complaint: Skin/Abscess/Foreign Body Clinical Impression: Soft tissue infection of foot Patient Disposition: Home, Self-Care Time of Disposition Decision: 16:43 Condition: Good Mode of Transportation: Private Vehicle Prescriptions / Home Meds: New sulfamethoxazole-trimethoprim [Bactrim DS] 800-160 mg tablet 1 tab PO BID 7 Days Qty: 14 0RF No Action buspirone 5 mg tablet escitalopram oxalate 10 mg tablet 10 mg PO DAILY escitalopram oxalate 20 mg tablet 20 mg PO DAILY lamotrigine 25 mg tablet 25 mg PO DAILY prazosin 2 mg capsule 2 mg PO DAILY Print Language: Guamanian Instructions: Wound Infection (ED) Referrals: Physician,Non-Staff, [Primary Care Provider] - 1 week Discharge Date/Time: 07/25/25 17:07
--- NOTE | 2025-07-25 18:54 | ED.GENADUL1 ---
Documented by User: CLARIBEL Graff 07/26/25 21:35 HPI HPI - General Adult General Chief complaint: Skin/Abscess/Foreign Body Stated complaint: DIABETIC/ INFECTION ON RIGHT FOOT Time Seen by Provider: 07/25/25 15:19 Source: patient Mode of arrival: walk-in Limitations: no limitations History of Present Illness HPI narrative: Patient is a 25 year old male that presents to the emergency department with complaints of Right plantar foot pain after stepping on something about a week ago. He thinks he stepped on glass and it lodged into the bottom of his foot. He states that 3 days ago he took a knife and cut the area open and pus came out. He has done this daily and states that pus will come out. He denies fever, night sweats, chills, or other systemic symptoms. He states that he is a type II diabetic but has been out of his insulin for 3 months or so as he has transportation issues. He was apparently prescribed insulin after his discharge from [facility] for behavioral health issues. Related Data Home Medications ?Medication ?Instructions ?Recorded ?Confirmed buspirone 5 mg tablet mg 03/31/25 escitalopram oxalate 10 mg tablet 10 mg PO DAILY 03/31/25 03/31/25 escitalopram oxalate 20 mg tablet 20 mg PO DAILY 03/31/25 03/31/25 lamotrigine 25 mg tablet 25 mg PO DAILY 03/31/25 03/31/25 prazosin 2 mg capsule 2 mg PO DAILY 03/31/25 03/31/25 Previous Rx's ?Medication ?Instructions ?Recorded sulfamethoxazole 800 1 tab PO BID 7 days #14 tabs 07/25/25 mg-trimethoprim 160 mg tablet (Bactrim DS) Allergies Allergy/AdvReac Type Severity Reaction Status Date / Time No Known Drug Allergies Allergy Verified 07/25/25 15:12 Opioid HPI Opioid Management Most Recent Opioid Data: Last Pain Scale 2 07/25/25, 15:12 Ur Phencyclidine Scrn, (NEGATIVE) Negative 07/15/25, 14:30 Review of Systems ROS Status of ROS 10 or more systems reviewed and unremarkable except as noted in history and below [facility] Medical History (Updated 07/25/25 @ 16:43 by CLARIBEL Graff) Borderline personality disorder ?F60.3 - Borderline personality disorder (ICD-10) Hypertension ?I10 - Essential (primary) hypertension (ICD-10) Social History Little interest or pleasure in doing things: not at all Feeling down, depressed, or hopeless: not at all Exam Narrative Exam Narrative: General: No distress, age-appropriate, unkempt and disheveled appearance Skin: Warm, dry, no pallor. No rash. Head: Normocephalic, atraumatic. Neck: Supple, non-tender. Eye: Pupils are equal, round and EOMI. No scleral icterus. Cardiovascular: Regular Rate and Rhythm without murmur, gallop or rub. Respiratory: No accessory muscle use or respiratory distress. Musculoskeletal: Full ROM of all extremities, no calf or popliteal tenderness. Right foot with no apparent wound on the plantar surface, no visible or palpable foreign body. No erythema or swelling of the foot. Neurological: A&O x4. No cranial nerve dysfunction observed. No truncal ataxia. Moves all extremities. Sensation intact. Psychiatric: Cooperative and interactive. Normal mood and affect. Constitutional Vital Signs, click to edit/add: Last Vital Signs Temp 98.2 F 07/25/25 15:12 Pulse 108 H 07/25/25 15:12 Resp 20 07/25/25 15:12 BP 112/88 07/25/25 15:12 Pulse Ox 98 07/25/25 15:12 Documenting provider has reviewed patient's vital signs: yes Course Vital Signs Vital signs: Vital Signs Temperature 98.2 F 07/25/25 15:12 Pulse Rate 108 H 07/25/25 15:12 Respiratory Rate 07/25/25 15:12 Blood Pressure 112/88 07/25/25 15:12 Pulse Oximetry 98 07/25/25 15:12 Temperature 98.2 F 07/25/25 15:12 Pulse Rate 108 H 07/25/25 15:12 Respiratory Rate 07/25/25 15:12 Blood Pressure 112/88 07/25/25 15:12 Pulse Oximetry 98 07/25/25 15:12 Medical Decision Making [facility] Narrative Medical decision making narrative: This is 25 year old male with insulin dependant diabetes type II that presented to the ED with complaints of Right plantar foot pain after stepping on a small piece of glass about a week ago. He thinks the piece is lodged in his foot. 3 days ago he started incising the area with a knife with apparent pus drainage. He has done this daily for the past 3 days. He states that he has been out of insulin for a bout 3 months given transportation issues. On arrival patient is in no distress, BP stable, mildly tachycardic at 108. Afebrile. His appearance is unkempt, his feet are both visibly soiled with dirt. The plantar surface of the right foot is inspected and there is no visible wound, erythema, or swelling. A foreign body cannot be palpated. POC Glucose and XR R Foot ordered. X-ray reviewed by myself as well as radiological read, No radiodense foreign body. No subcutaneous air. POC: Glucose 260, will refer to health center to establish care and resume treatment. Diabetic Foot infection - Vitals stable in ED. Afebrile. - No visible wound on exam, no fluctuance, no abscess, no foreign body on plain film - Started empirically on oral Bactrim 800mg BID x 10 days - Insulin regimen discussed and patient counseled on importance of compliance with medications. Referral to the Health Department to establish care, his diagnosis seems to have come after an admission with [facility]. Discharged home in stable condition with strict return precautions for fever, appearance of redness or swelling, worsening pain, or drainage. Keep foot clean, dry, and dressed. We discussed avoiding further self-incision attempts. Establish and follow up with PCP. ATTENDING ADDENDUM: Dr. Cottrell Patient seen and evaluated at bedside with midlevel provider. Agree with plan. Differential Diagnosis Differential Diagnosis: Diabetic foot infection, abscess, retained foreign body, Osteomyelitis Lab Data Lab results reviewed: Yes I reviewed the patient's lab results Labs: Lab Results 07/25/25 Range/Units 16:12 POC Glucose 260 H (74-106) mg/dL Imaging Data Right Foot X-Ray: Attestation: I have reviewed the pertinent imaging results. Radiologist's impression: ITS Impressions Foot X-Ray 07/25/25 16:21 IMPRESSION: No radiodense foreign body. No subcutaneous air. Impression dictated by: Stephen Shrestha M.D. 07/25/2025 4:42 PM Dictation Location: [place] [address] Electronically authenticated by: [id number] Y Date: 07/25/2025 16:42 Discharge Plan Discharge Chief Complaint: Skin/Abscess/Foreign Body Clinical Impression: Soft tissue infection of foot Patient Disposition: Home, Self-Care Time of Disposition Decision: 16:43 Condition: Good Mode of Transportation: Private Vehicle Prescriptions / Home Meds: New sulfamethoxazole-trimethoprim [Bactrim DS] 800-160 mg tablet 1 tab PO BID 7 Days Qty: 14 0RF No Action buspirone 5 mg tablet escitalopram oxalate 10 mg tablet 10 mg PO DAILY escitalopram oxalate 20 mg tablet 20 mg PO DAILY lamotrigine 25 mg tablet 25 mg PO DAILY prazosin 2 mg capsule 2 mg PO DAILY Print Language: Ukrainian Instructions: Wound Infection (ED) Referrals: Physician,Non-Staff, MD [Primary Care Provider] - 1 week Discharge Date/Time: 07/25/25 17:07 Documented by User: Jerman Cottrell DO 07/25/25 18:55 HPI HPI - General Adult General Chief complaint: Skin/Abscess/Foreign Body Stated complaint: DIABETIC/ INFECTION ON RIGHT FOOT Time Seen by Provider: 07/25/25 15:19 Related Data Home Medications ?Medication ?Instructions ?Recorded ?Confirmed buspirone 5 mg tablet mg 03/31/25 escitalopram oxalate 10 mg tablet 10 mg PO DAILY 03/31/25 03/31/25 escitalopram oxalate 20 mg tablet 20 mg PO DAILY 03/31/25 03/31/25 lamotrigine 25 mg tablet 25 mg PO DAILY 03/31/25 03/31/25 prazosin 2 mg capsule 2 mg PO DAILY 03/31/25 03/31/25 Previous Rx's ?Medication ?Instructions ?Recorded sulfamethoxazole 800 1 tab PO BID 7 days #14 tabs 07/25/25 mg-trimethoprim 160 mg tablet (Bactrim DS) Allergies Allergy/AdvReac Type Severity Reaction Status Date / Time No Known Drug Allergies Allergy Verified 07/25/25 15:12 Opioid HPI Opioid Management Most Recent Opioid Data: Last Pain Scale 2 07/25/25, 15:12 Ur Phencyclidine Scrn, (NEGATIVE) Negative 07/15/25, 14:30 PFSH PFSH Medical History (Updated 07/25/25 @ 16:43 by CLARIBEL Graff) Borderline personality disorder ?F60.3 - Borderline personality disorder (ICD-10) Hypertension ?I10 - Essential (primary) hypertension (ICD-10) Social History Little interest or pleasure in doing things: not at all Feeling down, depressed, or hopeless: not at all Exam Constitutional Vital Signs, click to edit/add: Last Vital Signs Temp 98.2 F 07/25/25 15:12 Pulse 108 H 07/25/25 15:12 Resp 20 07/25/25 15:12 BP 112/88 07/25/25 15:12 Pulse Ox 98 07/25/25 15:12 Course Vital Signs Vital signs: Vital Signs Temperature 98.2 F 07/25/25 15:12 Pulse Rate 108 H 07/25/25 15:12 Respiratory Rate 20 07/25/25 15:12 Blood Pressure 112/88 07/25/25 15:12 Pulse Oximetry 98 07/25/25 15:12 Temperature 98.2 F 07/25/25 15:12 Pulse Rate 108 H 07/25/25 15:12 Respiratory Rate 20 07/25/25 15:12 Blood Pressure 112/88 07/25/25 15:12 Pulse Oximetry 98 07/25/25 15:12 Medical Decision Making MDM Narrative Medical decision making narrative: ATTENDING ADDENDUM: Dr. Cottrell Patient seen and evaluated at bedside with midlevel provider. Agree with plan. Lab Data Labs: Lab Results 07/25/25 Range/Units 16:12 POC Glucose 260 H (74-106) mg/dL Imaging Data Right Foot X-Ray: Radiologist's impression: ITS Impressions Foot X-Ray 07/25/25 16:21 IMPRESSION: No radiodense foreign body. No subcutaneous air. Impression dictated by: Stephen Shrestha M.D. 07/25/2025 4:42 PM Dictation Location: [place] [address] Electronically authenticated by: [id number] Y Date: 07/25/2025 16:42 Discharge Plan Discharge Chief Complaint: Skin/Abscess/Foreign Body Clinical Impression: Soft tissue infection of foot Patient Disposition: Home, Self-Care Time of Disposition Decision: 16:43 Condition: Good Mode of Transportation: Private Vehicle Prescriptions / Home Meds: New sulfamethoxazole-trimethoprim [Bactrim DS] 800-160 mg tablet 1 tab PO BID 7 Days Qty: 14 0RF No Action buspirone 5 mg tablet escitalopram oxalate 10 mg tablet 10 mg PO DAILY escitalopram oxalate 20 mg tablet 20 mg PO DAILY lamotrigine 25 mg tablet 25 mg PO DAILY prazosin 2 mg capsule 2 mg PO DAILY Print Language: Ukrainian Instructions: Wound Infection (ED) Referrals: Physician,Non-Staff, MD [Primary Care Provider] - 1 week Discharge Date/Time: 07/25/25 17:07
== END 2025-07-25 17:07 | disposition home or self-care (01) ==
PROVIDERS: Emergency Provider Student in an Organized Health Care Education/Training Program
DX: L08.89 Other specified local infections of the skin and subcutaneous tissue (principal); E11.69 Type 2 diabetes mellitus with other specified complication; Z79.4 Long term (current) use of insulin; T38.3X6A Underdosing of insulin and oral hypoglycemic [antidiabetic] drugs, initial encounter; Z91.128 Patient's intentional underdosing of medication regimen for other reason
CPT/HCPCS: 36415; 73630; 82948; 99284

== ENCOUNTER 2025-09-26 22:14 | Emergency (ER) | payer MEDICAID, SELFPAY ==
--- OUTSIDE RECORDS SUMMARY | 2025-01-04 04:02 | XMS_ITS | Continuity of Care Document ---
Author Organization [facility] Address [address] [place] [address] Phone Care Team Providers Care Touch Up Carver Name Role Phone Jules Ramirez DO Unavailable Unavailable Allergies, Adverse Reactions, Alerts Substance Reaction Status Criticality No Known Allergies Active No Inform ation Medications Medication Instructions Dosage Effective Dates (start - stop) Status Comments Lexapro 20 mg tablet 1 daily for depression - Active lancets 1 lancet QID - Active Ple ase fill with [facility] MICRO THIN LANCETS ibuprofen 800 mg tablet take 1 tablet by oral route 3 times every day with food 800 MG - Active Lantus Solostar U-100 Insulin 100 unit/mL (3 mL) subcutaneous pen inject 30-60 units daily as instructed by physician - Active Alcohol Wipes use with glucose testing or insulin injection - Active pen needle, diabetic 31 gauge x 5/16 inject 1 milliliter by subcutaneous route every day 1 milliliter - Active metformin 1,000 mg tablet take 1 tablet by oral route 2 times every day with morning and evening meals 1000 MG - Active Procedures Procedure Date OFFICE/OUTPATIENT VISIT, EST HEMOGLOBIN A1C LEVEL > 9.0% DIAST BP 80-89 MM HG SYST BP < 130 MM HG MED LIST DOCD IN [facility] RVW MEDS BY RX/DR IN [facility] OFFICE/OUTPATIENT VISIT, NEW DIAST BP 80-89 MM HG SYST BP < 130 MM HG PT TOBACCO USE DONE RCVD TLK ROUTINE VENIPUNCTURE High Risk Prophylaxis Adult Nutrit Couns For Control Of [place] Dis Aug Oral Hygiene Instruction Intraoral-complete Series (bw) Comp Oral Eval New/estab Patient 2023 Oral Hygiene Instruction Advance Directives Directive Yes / No Effective Date File Name No Information Encounters Encounter Description Practice Location Reason(s) For Visit Diagnoses Date Provider Providers Copied on Encounter [facility], [address] [place] [address], [id number] , tel:+ [phone] [facility] No Information 5 Plank DO Jules. [address] [place] [address], [id number] , [place]. tel: [phone] [facility], [address] [place] [address], [id number] , [place] tel: [phone] [facility] No Information 4 Plank DO Jules. [address] [place] [address], [id number] , [place]. tel:[phone] OFFICE/OUTPAT IENT VISIT, EST [facility], [address] [place] [address], [id number] , [place] tel: [phone] [facility] f/u DM (chief complaint) depression f/u (chief complaint) Depression, unspecifiedMixed hyperlipidemiaType 2 diabetes mellitus with hyperglycemiaBody mass index [BMI] 39.0-39.9, adult 4 Plank DO Jules. [address] [place] [address], [id number] , [place]. tel: [phone] OFFICE/OUTPAT IENT VISIT, [facility], [address] [place] [address], [id number] , tel: [phone] [facility] Establish Care (chief complaint) Lab Draw (chief complaint) Body mass index [BMI] 39.0-39.9, adultMixed hyperlipidemiaType 2 diabetes mellitus with diabetic dermatitisScreening for HIV (human immunodeficiency virus)Need for hepatitis B screening test 4 James Camacho. [address] [place] [address], [id number] , [place]. tel:[phone] [facility], [address] [place] [address], [id number] , [place] tel: [phone] Dental Clinic pa (chief complaint) Encounter for screening for dental disorders 4 Riley Perry. [address] [place], [place], [id number] , [place]. tel:+ [phone] [facility], [address] [place] [address], [id number] , [place] tel:+ [phone] Dental Clinic dn (chief complaint) Encounter for screening for dental disorders 4 Riley Perry. [address] [place] [address], [id number] , [place]. tel:+ [phone] Family History Family Member Type Diagnosis Age [...] ry Payers Payer name Insurance type Covered alliance party ID Authoriza tion(s) Humana Medicaid [facility] 0223 [id number] Medicaid [facility] [id number] D Humana Medicaid [employer] [facility] 0223 [id number] D Medicaid Wrap - [facility] [place] [id number] Social History Type Description Quantity Date Captured [...] Goal Foot exam. Due on due Goal Depression screening. Due on due Goal Lipid panel. Due on due Goal Pneumococcal vaccine. Due on due Goal PRAPARE ASSESSMENT. Due on due Goal Tdap. Due on due Goal Hep B (). Due on due Goal Dental exam. Due on due Goal Hemoglobin A1C. Due on due Goal RLP. Due on due Goal Influenza vaccine. Due on due Goal Hepatitis C screening. Due o n due Goal Tdap Vaccine. Due on 2024 due Goal Urine microalbumin. Due on due Goal Unhealthy drug use screening . Due on due Goal ASCVD 10 year [...] Goal Foot exam. Due on due Goal Unhealthy drug use screening . Due on due Goal Depression screening. Due on due Goal Influenza vaccine. Due on due Goal Hepatitis C screening. Due o n due Goal Tdap. Due on due Goal RLP. Due on due Goal Tdap Vaccine. Due on 2023 due Goal PRAPARE ASSESSMENT. Due on due Goal Lipid panel. Due on due Goal Hep A. Due on du e Goal Hepatitis C screening. Due o n due Goal Unhealthy drug use screening . Due on due Goal Dental exam. Due on due Goal Hemoglobin A1C. Due on due Goal Tdap. Due on due Goal Influenza vaccine. Due on due Goal Hep B (). Due on due Goal Depression screening. Due on due Goal Tdap Vaccine. Due on 2023 due Goal RLP. Due on due Goal PRAPARE ASSESSMENT. Due on due Goal Pneumococcal vaccine. Due on due Goal ASCVD 10 year risk. Due on due Goal Dilated eye exam. Due on Sep due Goal Lipid panel. Due on due Goal Foot exam. Due on due Goal Urine microalbumin. Due on due Goal Lifestyle education regardin g diet completed Goal Tobacco cessation counseling completed Goal Urine microalbumin. Due on due Goal Hep B (). Due on due Goal Foot exam. Due on due Goal Dilated eye exam. Due on Sep due Goal Pneumococcal vaccine. Due on due Goal ASCVD 10 year risk. Due on due Goal Dental exam. Due on due Goal Lipid panel. [...] 2023 due Goal Hep A. Due on du e Goal Lifestyle education regardin g diet completed Goal Tobacco cessation counseling completed Goal Tobacco cessation counseling completed Goal Hep A. Due on du e Goal Tdap Vaccine. Due on 2023 due Goal Hepatitis C screening. Due o n due Goal PRAPARE ASSESSMENT. Due on N due Goal Depression screening. Due on due Goal Tdap. Due on due Goal Unhealthy drug use screening . Due on due Goal RLP. Due on due Goal Influenza vaccine. Due on No due Goal RLP. Due on due Goal Tdap. Due on due Goal Unhealthy drug use screening . Due on due Goal Depression screening. Due on due Goal PRAPARE ASSESSMENT. Due on N due Goal Tdap Vaccine. Due on 2023 due Goal Hepatitis C screening. Due o n due Goal Influenza vaccine. Due on No due History Of Present Illness Encounter Date [...] eye doctor. Requesting to go [facility]. He does c/o blurred vision. [...] to establish care. Patient recently moved from [place]. Patient hasn't seen a PCP in roughly [...]
[2025-09-26 22:16] VITALS: BP 139/91; PULSE 97; TEMP 36.7; O2SAT 97; BMI 35.0
--- NOTE | 2025-09-26 22:28 | ED.GENADUL1 ---
HPI HPI - General Adult General Chief complaint: Abdominal Pain Stated complaint: Abdominal Pain Time Seen by Provider: 09/26/25 22:19 Source: patient Mode of arrival: walk-in History of Present Illness HPI narrative: patient states he ran out of insulin about 2 months ago. States he vomited once this afternoon. Now has left sided chest pain for 3 hours. States it is finally easing up. Mild pain. No associated dyspnea or radiation. No abdominal pain Related Data Home Medications ?Medication ?Instructions ?Recorded ?Confirmed buspirone 5 mg tablet mg 03/31/25 escitalopram oxalate 10 mg tablet 10 mg PO DAILY 03/31/25 03/31/25 escitalopram oxalate 20 mg tablet 20 mg PO DAILY 03/31/25 03/31/25 lamotrigine 25 mg tablet 25 mg PO DAILY 03/31/25 03/31/25 prazosin 2 mg capsule 2 mg PO DAILY 03/31/25 03/31/25 Previous Rx's ?Medication ?Instructions ?Recorded sulfamethoxazole 800 1 tab PO BID 7 days #14 tabs 07/25/25 mg-trimethoprim 160 mg tablet (Bactrim DS) Allergies Allergy/AdvReac Type Severity Reaction Status Date / Time No Known Drug Allergies Allergy Verified 07/25/25 15:12 Opioid HPI Opioid Management Most Recent Opioid Data: Last Pain Scale 2 07/25/25, 15:12 Ur Phencyclidine Scrn, (NEGATIVE) Negative 07/15/25, 14:30 Review of Systems ROS Status of ROS 10 or more systems reviewed and unremarkable except as noted in history and below [facility] Medical History (Updated 09/27/25 @ 00:12 by Kris Gross MD) Borderline personality disorder ?F60.3 - Borderline personality disorder (ICD-10) Hypertension ?I10 - Essential (primary) hypertension (ICD-10) Social History Little interest or pleasure in doing things: not at all Feeling down, depressed, or hopeless: not at all Exam Constitutional Vital Signs, click to edit/add: Last Vital Signs Temp 98.1 F 09/26/25 22:16 Pulse 97 H 09/26/25 22:16 Resp 20 09/26/25 22:16 BP 139/91 09/26/25 22:16 Pulse Ox 97 09/26/25 22:16 O2 Del Method Room Air 09/26/25 22:16 Common normals: no apparent distress, average body habitus, oriented x3, no limitations, healthy appearing, alert and well nourished [facility] Common normals: normocephalic and head/scalp atraumatic Eye Common normals: EOMs intact bilaterally and conjunctivae normal Respiratory Common normals: normal respiratory effort, no retractions, no use of accessory muscles and clear to auscultation bilaterally Cardio Common normals: regular rate, regular rhythm, S1 normal heart sound and S2 normal heart sound GI Common normals: Normal to inspection, nondistended, normoactive bowel sounds present, soft to palpation and non-tender Extremity Common normals: normal to inspection and full ROM Neuro Common normals: oriented x3, CN's II-XII intact bilaterally, moves all extremities and no focal motor deficits Psych Appearance: grossly normal Course Vital Signs Vital signs: Vital Signs Temperature 98.1 F 09/26/25 22:16 Pulse Rate 97 H 09/26/25 22:16 Respiratory Rate 20 09/26/25 22:16 Blood Pressure 139/91 09/26/25 22:16 Pulse Oximetry 97 09/26/25 22:16 Oxygen Delivery Method Room Air 09/26/25 22:16 Temperature 98.1 F 09/26/25 22:16 Pulse Rate 97 H 09/26/25 22:16 Respiratory Rate 20 09/26/25 22:16 Blood Pressure 139/91 09/26/25 22:16 Pulse Oximetry 97 09/26/25 22:16 Oxygen Delivery Method Room Air 09/26/25 22:16 Medical Decision Making [facility] Narrative Medical decision making narrative: type 2 diabetic who has not had any medication for diabetes for over 2 months. States he was once on insulin. Presents complaining of 3 hours of mild chest pain. No dyspnea or diaphoresis. Episode of emesis earlier in the afternoon when he did not have any chest pain. EKG is normal. cxray neg. d-dimer and troponin neg. RBS 286 and no findings to support DKA. patient discharged home asymptomatic with a prescription for glucontro 2.5 and advised to follow up with a family doctor. Very low suspicion that his chest pain represents ACS Lab Data Labs: Lab Results 09/26/25 Range/Units 22:20 WBC 6.4 (4.0-11.0) 10^3/uL RBC 5.10 (4.70-6.10) 10^6/uL Hgb 16.0 (14.0-18.0) g/dL Hct 43.3 (42.0-54.0) % MCV 84.9 (80.0-94.0) fL MCH 31.4 (25.9-34.0) pg MCHC 37.0 H (29.9-35.2) g/dL RDW 12.6 (11.0-15.0) % Plt Count 148 L (150-450) 10^3/uL MPV 9.8 (9.5-13.5) fL Neut % (Auto) 56.3 (43.0-75.0) % Lymph % (Auto) 35.7 (20.5-60.0) % [place] % (Auto) 5.5 (1.7-12.0) % Eos % (Auto) 0.8 L (0.9-7.0) % Baso % (Auto) 0.6 (0.2-2.0) % Neut # (Auto) 3.6 (1.4-6.5) 10^3/uL Lymph # (Auto) 2.3 (1.2-3.8) 10^3/uL [place] # (Auto) 0.4 (0.3-0.8) 10^3/uL Eos # (Auto) 0.1 (0.0-0.7) 10^3/uL Baso # (Auto) 0.0 (0.0-0.1) 10^3/uL Abs Immat Gran (auto) 0.07 H (0.00-0.03) 10^3/uL Imm/Tot Granulo (auto) 1.1 H (0.0-0.5) % D-Dimer <0.19 (<=0.59) mg/L FEU Sodium 137 (136-145) mmol/L Potassium 4.2 (3.5-5.1) mmol/L Chloride 103 (98-107) mmol/L Carbon Dioxide 27.8 (21.0-32.0) mmol/L Anion Gap 10.4 BUN 15.0 (7.0-18.0) mg/dL Creatinine 0.80 (0.70-1.30) mg/dL Est GFR ( Amer) >60 (>=60 mL/min/1.73m^2) Est GFR (Non-Af Amer) >60 (>=60 mL/min/1.73m^2) BUN/Creatinine Ratio 18.8 Glucose 286 H (74-106) mg/dL Calcium 8.6 (8.5-10.1) mg/dL Total Bilirubin 0.7 (0.2-1.0) mg/dL AST 17 (15-37) U/L ALT 16 (16-63) U/L Alkaline Phosphatase 50 (46-116) U/L Troponin I High Sens 5.1 (4.0-76.1) pg/mL Total Protein 6.5 (6.4-8.2) g/dL Albumin 3.6 (3.4-5.0) g/dL Globulin 2.9 g/dL Albumin/Globulin Ratio 1.2 Lipase 38.0 (16.0-77.0) U/L Discharge Plan Discharge Chief Complaint: Abdominal Pain Clinical Impression: Chest pain, Hyperglycemia Patient Disposition: Home, Self-Care Prescriptions / Home Meds: No Action buspirone 5 mg tablet escitalopram oxalate 10 mg tablet 10 mg PO DAILY escitalopram oxalate 20 mg tablet 20 mg PO DAILY lamotrigine 25 mg tablet 25 mg PO DAILY prazosin 2 mg capsule 2 mg PO DAILY sulfamethoxazole-trimethoprim [Bactrim DS] 800-160 mg tablet 1 tab PO BID 7 Days Qty: 14 0RF Print Language: Kazakh Instructions: Chest Pain (ED), Diabetic Hyperglycemia (ED) Additional Instructions: follow up with family doctor this week or next week Referrals: Physician,Non-Staff, MD [Primary Care Provider] - 1 week Discharge Date/Time: 09/27/25 00:28
--- NOTE | 2025-09-26 22:30 | ECG_ITS ---
[facility] Test Date: 2025-09-26 Pat Name: TRACIE LOTT Department: Room: - Gender: Male Manager Title: : 2000 Requested By: [id number] Order Number: [id number] Reading MD: KHUSHBOO COVARRUBIAS M.D. Measurements Intervals [place] Rate: 87 P: 60 VA: 150 QRS: 71 QRSD: 102 T: 59 QT: 324 QTc: 369 Interpretive Statements [address], PROBABLE NORMAL EARLY REPOL PATTERN 9110 normal ECG Compared to ECG 07/15/2025 12:40:49 No significant changes Electronically Signed On 09-27-2025 19:48:21 EST by KHUSHBOO COVARRUBIAS M.D.
--- NOTE | 2025-09-26 22:30 | XR_ITS ---
The [place] [id number] Patient Name: TRACIE LOTT MRN: [id number] date: 2000 Sex: M Assigned Patient Location: ER Current Patient Location: ED.MAIN Accession/Order Number: [id number] Exam Date: 09/26/2025 22:37 Report Date: 09/26/2025 23:01 At the request of: PEACE LOPEZ MD Procedure: XR chest 1V PA CHEST: CLINICAL HISTORY: chest pain COMPARISON: 02/03/2025 Unremarkable cardiomediastinal. Lungs clear. No effusion or pneumothorax. XR/XR chest 1V IMPRESSION: NEGATIVE FOR ACUTE AIR SPACE Impression dictated by: Thuan Bello M.D. 09/26/2025 11:01 PM Dictation Location: [place] [address] Electronically authenticated by: [id number] Y Date: 09/26/2025 23:01
[2025-09-26 22:37] LABS: Hematocrit 43.3 % (42.0-54.0); Hemoglobin 16.0 g/dL (14.0-18.0); Immature Granulocytes Abs Auto 0.07 10^3/uL (0.00-0.03); Immature Granulocytes Pct Auto 1.1 % (0.0-0.5); Lymphocytes Absolute Auto 2.3 10^3/uL (1.2-3.8); Mean Corpuscular HGB Conc 37.0 g/dL (29.9-35.2); Mean Corpuscular Hemoglobin 31.4 pg (25.9-34.0); Mean Corpuscular Volume 84.9 fL (80.0-94.0); Platelet Count 148 10^3/uL (150-450); Red Blood Count 5.10 10^6/uL (4.70-6.10); White Blood Count 6.4 10^3/uL (4.0-11.0)
--- OUTSIDE RECORDS SUMMARY | 2025-09-26 22:46 | XMS_ITS | Clinical Summary ---
Author Organization [facility] Address [address] [place] [address] Care Team Providers Care Pageant Director Name Role Phone Unallocated, Noms Provider Primary Care Provi nidhi Allergies No known active allergies Medications MedicationSigDispense QuantityRefillsLast FilledStart DateEnd DateStatus buPROPion XL (Wellbutrin XL) 150 MG 24 hr tablet Indications:Depression, unspecified depression typeTake 1 tablet (150 mg) by mouth in the morning. Do not crush, chew, or split.. 30 tablet ctive Levemir FlexPen 100 UNIT/ML pen Inject 35 Units under the skin at bedtime 15 mL ctive Additional Information Patient taking differently: 36 UnitsSubcutaneous Nightly, Reported on 12/29/2023 insulin pen needle (B-D UF III MINI PEN NEEDLES) 31G x 5 mm misc Indications:Type 2 diabetes mellitus without complication, without long-term current use of insulin (HCC)Injection subcutaneous 5 times daily 500 each ctive glucose blood (OneTouch Verio) test strip Indications:Type 2 diabetes mellitus without complication, without long-term current use of insulin (HCC)Fsbs 5 times daily 500 strip ctive insulin lispro (HumaLOG KWIKPEN) 100 UNIT/ML injection Indications:Type 2 diabetes mellitus with hyperglycemia, with long-term current use of insulin (HCC)12 units qAC plus correction 1:50 > 150 mg/dl (max daily 50 units) 15 mL ctive busPIRone (Buspar) 5 MG tablet Take 5 mg by mouth in the morning and 5 mg before bedtime.12/04/2023ctive fenofibrate (Tricor) 145 MG tablet 12/08/2023ctive Continuous Blood Gluc Sensor (FreeStyle Viktor 3 Sensor[place] [facility] [place]:Type 2 diabetes mellitus with hyperglycemia, with long-term current use of insulin (HCC)Inject 1 Device under the skin every 14 (fourteen) days 6 each ctive Continuous Blood Gluc Diffuser Operator (FreeStyle Viktor 3 [place]) device Indications:Type 2 diabetes mellitus with hyperglycemia, with long-term current use of insulin ([facility])1 Device See administration instructions 1 each 12/29/2023ctive Blood Glucose Monitoring Suppl (Inflection) w/Device kit Indications:Type 2 diabetes mellitus with hyperglycemia, with long-term current use of insulin ([facility])fsbs 1 kit 12/29/2023ctive Active Problems ProblemNoted DateDiagnosed DateHyperosmolar (nonketotic) coma12/29/2023 Dikkzvcchrczootyxuyd32/05/2024Type 2 diabetes mellitus with hyperglycemia, with long-term current use of bwhvrkf2511/30/2023 Assessment & Plan (12/30/2023 8:53 PM EST): During the appointment today all pertinent labs, imaging, health maintenance, and glucose readings were reviewed. Encouraged to check blood glucose throughout the day with some fasting and some PP readings. They are to bring their glucose meter/cgm in to all appointments. All of the patients questions, treatment options, and current care plan and goals were discussed. Acopy of this along with pertinent instructions were given to the patient at the end of the appointment. The patient voices understanding of all of this and is to call in between appointments if they have any problems or questions. Kris Ramirez is struggling to gain control of their diabetes. I am very concerned for diabetes related complications. , Discussed importance of checking blood glucose regularly and bringing them in to their appointment in order for me to better adjust their medications. , Instructed on the importanceof taking insulin before eating. If it has been more than 30-45 min since eating they should not give the meal dose but should just give a correction insulin dose. , Instructions given today include:Insulin instructions. Will get him a new meter so he can check his bg. Will try and get him a cgm. Instructed him on the use of the cgm. I am not able to adjust insulin doses due to not having any readings to go off of. Continue to work on improving his diet. Type 2 diabetes mellitus without complication, with long-term current use of kdfxyxp9805/25/2023 Assessment & Plan (11/30/2023 9:27 PM EST): During the appointment today all pertinent labs, imaging, health maintenance, and glucose readings were reviewed. Encouraged to check blood glucose throughout the day with some fasting and some PP readings. They are to bring their glucose meter/cgm in to all appointments. All of the patients questions, treatment options, and current care plan and goals were discussed. Acopy of this along with pertinent instructions were given to the patient at the end of the appointment. The patient voices understanding of all of this and is to call in between appointments if they have any problems or questions. Kris Ramirez is struggling to gain control of their diabetes. I am very concerned for diabetes related complications. , Discussed dietary changes at length. Encouraged to limit simple carbs and focus more on healthy protein/fat with all meals and snacks. They should also avoid any sugary drinks. , Discussed importance of checking blood glucose regularly and bringing them in to their appointment in order for me to better adjust their medications. , Instructed on the importance of taking insulin before eating. If it has been more than 30-45 min since eating they should not give the meal dose but should just give a correction insulin dose. , Instructions given today include: Hypoglycemia management, Insulin instructions, and Dietary education. He wishes to have blood tests to look and see if he has type 1 diabetes as he was diagnosed at 19 years of age and needed insulin right away. Will check labs for him. He needs to continue to take his diabetes seriously, check bg regularly, eat healthy, and take insulin. Will increase his levemir and give him more direction on his novolog for his meals. Discussed that he needs to be consistent with this as well as work on learning how to count carbs before we canconsider an insulin pump. Assessment & Plan (05/25/2023 12:48 PM EDT): During the appointment today all pertinent labs, imaging, health maintenance, and glucose readings were reviewed. Encouraged to check blood glucose throughout the day with some fasting and some PP readings. They are to bring their glucose meter/cgm in to all appointments. All of the patients questions, treatment options, and current care plan and goals were discussed. Acopy of this along with pertinent instructions were given to the patient at the end of the appointment. The patient voices understanding of all of this and is to call in between appointments if they have any problems or questions. Kris Ramirez continues to struggle to gain control of their diabetes. I am very concerned for diabetes related complications. , Discussed dietary changes at length. Encouraged to limit simple carbs andfocus more on healthy protein/fat with all meals and snacks. They should also avoid any sugary drinks. , Discussed importance of checking blood glucose regularly and bringing them in to their appointment in order for me to better adjust their medications. , Instructions given today include: Dietaryeducation. Will try and keep things simple. Will start synjardy XR and he is to increase to 2 pillsdaily as tolerated. SGLT2 inhibitors: Discussed risk of dehydration and yeast infection. instructed on the importance of drinking enough water. Class 2 severe obesity due to excess calories with serious comorbidity and body mass index (BMI) of37.0 to 37.9 in adult05/25/2023 Resolved Problems ProblemNoted DateDiagnosed DateResolved DateHyperglycemia due to type 2 diabetes qvokibbg79 Family History Medical HistoryRelationNameCommentsDiabetesFather's SisterDiabetesMaternal GrandmotherDiabetesMotherDiabetesMother's BrotherDiabetesMother's SisterRelation NameStatusCommentsBrother4 brothersDaughter1 daughterFatherAliveFather's Sister Maternal GrandmotherMotherAliveMother's BrotherMother's SisterSister2 sisters Social History Tobacco UseTypesPacks/DayYears UsedDateSmoking Tobacco: Every DayCigarettes Smokeless Tobacco: CurrentChew Tobacco Cessation:Ready to Q uit: No; Counseling Given: Not Answered Comments:Smokes 31 or more cigs per day Alcohol UseStandard Drinks/WeekCommentsNever0 (1 standard drink = 0.6 oz pure alcohol)caffeine: more than 4 cups per dayAUDIT-CAnswerDate RecordedQ1: How often do you have a drink containing alcohol?Never07/31/2023Q2: How many drinks containing alcohol do you have on a typical day when you are drinking?Patient does not drink05/25/2023Q3: How often do you have six or more drinks on one occasion?Never05/25/2023HQ-2AnswerDate RecordedPatient Health Questionnaire-2 Yfkzm007Sex and Gender InformationValueDate RecordedSex Assigned at BirthNot on fileLegal FfuNjzk0803/13/2023 3:06 PM EDTGender IdentityNot on file Sexual OrientationNot on file Last Filed Vital Signs Vital SignReadingTime TakenCommentsBlood Edzyotua611/8812/29/2023 3:49 PM EST Shpgy915012/29/2023 3:49 PM JWRGeukgxlmpuq87 ??C (96.8 ??F)12/29/2023 3:49 PM EST Respiratory Rate--Oxygen Knncqifxso36%12/29/2023 3:49 PM ESTInhaled Oxygen Concentration--Xnmetc061 kg (247 lb 6.4 oz)12/29/2023 3:49 PM CEVPvmuhe295.7 cm (5' 8 )12/29/2023 3:49 PM ESTBody Mass Index37.62012/29/2023 3:49 PM EST Plan of Treatment Health MaintenanceDue DateLast DoneCommentsDiabetes: Retinopathy Screening 2011Pneumococcal Vaccine: Pediatrics (0 to 5 Years) and At-Risk Patients (6 to 64 Years) (1 of 2 - PCV)2020Diabetes: Hemoglobin A1C02/28/2024 11/30/2023iabetes: Urine Protein Zagzceyza76/06/910086/OVID-19 Vaccine ( season)/, 06/04/2021Influenza Vaccine (#1) 2025 Procedures Procedure NamePriorityDate/TimeAssociated DiagnosisCommentsMICROALBUMIN / CREATININE URINE BQEOERmckwly75/06/2024 9:39 AM EST Depression, unspecified depression type Anxiety Type 2 diabetes mellitus without complication, without long-term current use of insulin (HCC) POCT GLYCOSYLATED HEMOGLOBIN (HGB A1C)Tjllbcm1411/30/2023 4:28 PM EST Type 2 diabetes mellitus without complication, without long-term current use of insulin ([facility]) from Last 3 Months or Most Recently Relevant to Health Maintenance Results * (ABNORMAL) Microalbumin / creatinine urine ratio (12/01/2023 9:39 AM EST) ComponentValueRef RangeTest MethodAnalysis TimePerformed AtPathologist SignatureCREATININE, RANDOM [id number] - 320 mg/dLQUESTALBUMIN, URINE9.5See Note: mg/dLQUESTComment: Reference Range: Reference Range Not established ALBUMIN/CREATININE RATIO, RANDOM URINE41(H)<30 mcg/mg creatQUESTComment: The ADA defines abnormalities in albumin excretion as follows: Albuminuria Category ?Result (mcg/mg creatinine) Normal to Mildly increased <30 Moderately increased ? 30-299 Severely increased > OR = 300 The ADA recommends that at least two of three specimens collected within a 3-6 month period be abnormal before considering a patient to be within a diagnostic category. Specimen (Source)Anatomical Location / LateralityCollection Method / Volume Collection TimeReceived TimeUrineUrine specimen obtained by clean catch procedure / Qyfazzc1612/01/2023 9:39 AM EST12/01/2023 9:39 AM EST Narrative [facility] - 12/02/2023 11:58 AM EST FASTING:YES FASTING: YES Resulting Agency Comment Performing Organization Information ?Site ID: QPT ?Name: [facility] ?Address: [address] [place] [address], [address] [place] [phone] ?Director: Allan Walker MD Authorizing ProviderResult TypeResult StatusDiane Aguilar ITZEL URINE ORDERABLES Final ResultPerforming OrganizationAddressCity/State/ZIP CodePhone Number [facility] * (ABNORMAL) POCT glycosylated hemoglobin (Hb A1C) docked device (11/30/2023 4:28 PM EST)ComponentValueRef RangeTest MethodAnalysis TimePerformed At Pathologist SignatureHemoglobin A1C11.0Specimen (Source)Anatomical Location / LateralityCollection Method / VolumeCollection TimeReceived TimeBloodVenous blood specimen / Ufdogyg1211/30/2023 4:28 PM EST Narrative Authorizing ProviderResult TypeResult StatusJoseline Tee DOPOINT OF CARE TEST ENTER/EDIT ORDERABLESFinal Result from Last 3 Months or Most Recently Relevant to Health Maintenance Insurance Care Teams Team MemberRelationshipSpecialtyStart DateEnd Date Unallocated, Noms MD Cali [address] [place] [address] PCP - GeneralFamily Medicine12/29/23
--- OUTSIDE RECORDS SUMMARY | 2025-09-26 22:46 | XMS_ITS | CCD ---
Author Organization [facility] Care Team Providers Care Gamemaster Name Role Phone Fito Villalobos Primary Care Provider Fito Villalobos Primary Care Provider FITO VILLALOBOS Referring Unavailable LILIA FITO Primary Care Unavailable LILIA FITO Referring Unavailable LILIA FITO Primary Care Unavailable LILIA FITO Primary Care Unavailable THUMMALAPALLY, RUSHEETH Admitting Unavaila ble THUMMALAPALLY, RUSHEETH Attending Unavaila gail Villalobos Fito Primary Care Provider LILIA FITO Primary Care Unavailable DEGROOT, MARIXA Consulting Unavailable DEGROOT, MARIXA Admitting Unavailable JEAN PIERRE BARTON Attending Unavailable [facility] Primary Care Unavailable JAMES, YOLANDA Consulting Unavailable THUMMALAPALLY, RUSHEETH Attending Unavaila ble THUMMALAPALLY, RUSHEETH Admitting Unavaila ble CASEY, WADNA S Consulting Unavailable CHELSEA Olivas Attending Provider Unavail able Lynn Olivas Unavailable NON STAFF Attending Provider Unavailable MD John Kraft Attending Provider REQUEST, DR JUNE LISTED Primary Care Unavaila ble RADHA ., DR DEE Admitting Unavailable RADHA ., DR DEE Attending Unavailable RADHA Davey, DR DEE Consulting Unavailable AUBURN, DR CÉSAR Metzger Consulting Unavailable CAYETANO SMITH [...] MD Leti Tucker Other Provider DO Mauricio Whiet Other Provider MD Nubia Dhaliwal Other Provider [...] Finley Other Provider HAILEE Correa Other Provider MD Wilfred Moreno Other Provider MD Hudson Turner Other Provider DO Francisco Javier Lynne T Other Provider DO Karrie Dean Other Provider MD Jean Darius P Other Provider MD Blair Ni Other Provider HAILEE Vasquez Other Provider [phone] MD Xiomy Rocha Other Provider MD Sam Wolfe Other Provider Veena, ANGELO Guallpa Other Provider Unavailable NO FAMILY, PHYSICIAN Primary Care Provider Unava ilable Guillermina Shetty APRN Emergency Provider Blue Talbot MD Admit Provider Antione GALINDO, Blue Attending Provider Demetria Cifuentes APRN Primary Care Provider Antione GALINDO, Blue Attending Provider Natasha STEPHENS, Yane Other Provider Unavailable Birgit RN, Tiffanie Other Provider Unavailable Haylee RN, Ria Other Provider Unavailable Tho RN, Latasha Other Provider Unavailable Rob RN, Alicia Other Provider Unavailable Juan M Belrtan MD Other Provider Amber Dillon DO Other Provider [phone] Delano Vicente MD Other Provider Von Roberts DO Other Provider Xuan GALINDO, Flex Other Provider Khoa GALINDO, Sunshine Other Provider Mauricio Alcazar DO Other Provider [phone] Neymar GALINDO, Ari Other Provider Unavailable Rola Valdes APRN Other Provider Danielle GALINDO, Aryan Other Provider Victor Hugo Menjivar MD Other Provider Helen Hernandez MD Other Provider Unavailable Leti Tucker MD Other Provider Mauricio White DO Other Provider Nubia Dhaliwal MD Other Provider Panchito Ferro MD Other Provider Tarik LABORATORY ADMINISTRATIVE DIRECTOR-C, Gabriela Cardona Other Provider Veronica Danielle APRN Other Provider Unavailable Ramesh Garcia MD Other Provider Oz Carrillo MD Other Provider Salty Pena MD Other Provider Desi GALINDO, Adry Other Provider Unavailable Tony Wayne MD Other Provider Katie Cantu DO Other Provider Escobar Jones DO Other Provider [phone] Lynnette Garcia APRN Other Provider Manohar Carter DO Other Provider Marychuy GALINDO, Dayan Reina Other Provider [phone] Iaz Finley APRN Other Provider Hanna Correa APRN Other Provider [phone] Josh GALINDO, Wilfred Other Provider Unavailable Hudson Turner MD Other Provider Lynne DO, Francisco Javier T Other Provider Jermaine DO, Karrie Other Provider Jean GALINDO, Darius Berrios Other Provider Last GALINDO, Blair Townsend Other Provider [phone] Mesha Vasquez APRN Other Provider Unavailable Aj GALINDO, Xiomy Other Provider Yaneth GALINDO, Sam Other Provider Emeka Cantor MD Other Provider Ari Hazel MD Other Provider Kiran GALINDO, Wale Other Provider Nicolasa Cramer APRN Other Provider Nathaniel Garcia APRN Other Provider Saloni Curiel RN Other Provider Unavailable Ceferino Edwards MD Attending Provider [facility] ider Kris Gross MD Attending Provider Demetria Cifuentes APRN Primary Care Provider Blue Talbot MD Attending Provider [phone] Fish STEPHENS, Annamarie Other Provider Unavailable Olegario [...] Beck Consulting Unavailable Nicolasa Cramer Consulting Unavailable Nathaniel Garcia Consulting Unavaila Saloni [...] Lynne Consulting Unavailable Karrie Dean Consulting Unavailable Darisu Pena Consulting Unavailable Blair Ni Consulting Unava ilable Mesha Vasquez Consulting Unavailable Xiomy Rocha Consulting Unavailable Sam Wolfe Consulting Unavailable Emeka Cantor Consulting Unavailable Ari Hazel Consulting Unavailable Wale Beck Consulting Unavailable Nicolasa Cramer Consulting Unavailable Bolvinod-Cleo Nicolettcarmela Consulting Unavaila Saloni Coleman Consulting Unavailable Guillermina Shetty Admitting Unavailable Guillermina Shetty Attending Unavailable [facility] Hercules [...] Consulting Unavailable Karrie Dean Consulting Unavailable Darius Pnea Consulting Unavailable Blair Ni Consulting Unava Mesha Yuan Consulting Unavailable Xiomy Rocha Consulting Unavailable Sam Wolfe Consulting Unavailable Saloni Curiel Consulting Unavailable Allergies Allergy ClassificationReported Allergen(s)Allergy TypeDate of OnsetReaction(s) Facility (1 source)Adhesive TapePropensity to adverse reactions to [id number] (1 source)No Known Medication Allergies; 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: [No Known Medication Allergies]Propensity to adverse reactions (disorder)[facility] (1 source)ADHESIVE TAPE-SILICONES; 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: [ADHESIVE TAPE-SILICONES] Propensity to adverse reactions to drug (disorder)[id number] Rep[facility] Medications Current Medications MedicationDrug Class(es)DatesSig (Normalized)Sig (Original)Acetaminophen (1 source)Start: 46-77-4569niptxttdfeopl (TYLENOL) tablet 650 mgatorvastatin 40 mg oral tablet (3 sources)HMG-CoA Reductase InhibitorStart: 18-34-9742eodp 1 tablet by mouth once dailyatorvastatin (LIPITOR) 40 MG tablet Take 1 tablet by mouth daily 30 tablet 3 08/01/2020 ActiveBlood Sugar Diagnostic (3 sources)Start: 14-76-7741Hlyud Sugar Diagnostic Active 0 .Route 100 June 29, 2024 12:00am to test blood sugar 5 times dailyBlood-Glucose Meter (3 sources)Start: 75-99-0574Ukclf-Glucose Meter Active 0 .Route June 29, 2024 12:00am to test blood sugar daily24 hr buPROPion hydrochloride 300 mg extended release oral tablet (20 sources)AminoketoneStart: 79-68-8467xqLZLByau 300 mg/24 hours ER Tab Refills(s) 0 Start Date: 04/25/24 Status: OrderedStart: 02-15-2024 End: 29-07-0771chag 1 tablet by mouth once daily in the morningBupropion Hcl (Wellbutrin Xl) 300 mg tablet extended release 24 hr Discontinued 300 MG PO Every morning February 15, 2024 12:00am June 29, 2024 11:14amStart: 12-08-2023 End: 37-31-2535hjne 1 tablet by mouth once daily in the morningBupropion Hcl 150 mg tablet extended release 24 hr Discontinued 150 MG PO Every morning 2023 4:12pm February 15, 2024 11:03ambusPIRone hydrochloride 5 mg oral tablet (20 sources)Start: 03-31-2025 End: 55-77-0447qice 1 tablet by mouth twice dailyBuspirone 5 mg tablet Active 5 MG PO Twice daily 60 April 05, 2025 1:26pmStart: 02-15-2024 End: 21-13-2866bmxa 1 tablet by mouth three times dailyBuspirone 15 mg tablet Discontinued 15 MG PO Three times daily February 15, 2024 12:00am July 27, 2024 4:06pmStart: 12-04-2023 End: 49-43-1471cezb 1 tablet by mouth twice dailyBuspirone 5 mg tablet Discontinued 5 MG PO Twice daily December 08, 2023 1:00am February 15, 2024 1 1:03amciprofloxacin 500 mg oral tablet (1 source)Quinolone AntimicrobialStart: 04-25-2024 End: 47-25-6937tbbx 1 tablet by mouth twice daily at mealtimeCipro 500 mg Tab 500 mg = 1 tab(s), Oral, BID, start with first meal after procedure, X 5 day(s), #10 tab(s), Refills(s) 0, Pharmacy: [facility]/pharmacy #[id number], 174, cm, 04/25/24 11:22:00 EDT, Height/Length Dosing, 113.5, kg, 04/25/24 11:22:00 EDT, Weight Dosing Start Date: 04/25/24 Stop Date: 04/30/24 Status: OrdereddiazePAM 10 mg oral tablet (2 sources)BenzodiazepineStart: 00-06-9601tqle 1 tablet by mouth once daily Valium 10 mg Tab 10 mg = 1 tab(s), Oral, Daily, take 30 minutes prior to procedure, # 1 tab(s), Refills(s) 0, Pharmacy: [facility]/pharmacy #[id number], 174, cm, 04/25/24 11:22:00 EDT, Height/Length Dosing, 113.5, kg, 04/25/24 11:22:00 EDT, Weight Dosing Start Date: 04/25/24 Status: Ordered0.3 ml enoxaparin sodium 100 mg/ml prefilled syringe (1 source)Low Molecular Weight HeparinStart: 10-47-8262wotfanxguc (LOVENOX) injection 30 mgescitalopram 20 mg oral tablet (15 sources)Serotonin Reuptake InhibitorStart: 17-22-5528ffzy 1 tablet by mouth once daily in the morningEscitalopram Oxalate 20 mg Tablet Active 20 MG PO Every morning 30 April 05, 2025 12:00amStart: 03-31-2025 End: 94-14-3820rdek 2 tablets by mouth once daily in the morningEscitalopram Oxalate 10 mg Tablet Discontinued 20 MG PO Every morning March 31, 2025 12:00am April 05, 2025 1:57pmStart: 01-09-2025 End: 90-16-5341Pylosdeecbrj Oxalate 10 mg Tablet Discontinued 15 MG PO Every morning 45 January 09, 2025 12:00am March 31, 2025 1:18pmStart: 01-05-2025 End: 23-91-1527phhs 1 tablet by mouth once daily in the morningEscitalopram Oxalate 10 mg Tablet Discontinued 10 MG PO Every morning January 05, 2025 12:00am January 09, 2025 1:04pmStart: 08-04-2024 End: 52-53-1037Gukjkiwdwiie Oxalate 10 mg Tablet Discontinued 15 MG PO Every morning 45 August 04, 2024 12:00am January 05, 2025 6:20pmStart: 20-85-8094lrom 15 mg by mouth once daily in the morningEscitalopram Oxalate Active 15 MG PO Every morning 45 August 04, 2024 12:00amfamotidine 20 mg oral tablet (3 sources)Histamine-2 Receptor AntagonistStart: 42-94-0923rkht 1 tablet by mouth twice dailyfamotidine (PEPCID) 20 MG tablet Take 1 tablet by mouth 2 times daily 60 tablet 3 08/01/2020 Activefenofibrate 48 mg oral tablet (20 sources)Peroxisome Proliferator Receptor alpha AgonistStart: 04-01-2025 Fenofibrate Nanocrystallized 48 mg Tablet Active 192 MG PO Daily April 01, 2025 12:00amStart: 08-01-2024 End: 79-13-0559cqxw 1 tablet by mouth once dailyFenofibrate Nanocrystallized 145 mg tablet Discontinued 145 MG PO Daily August 04, 2024 9:13am August 09, 2024 11:42amStart: 20-18-2480atnjyzpthyi 145 mg Tab Refills(s) 0 Start Date: 04/25/24 Status: OrderedStart: 02-15-2024 End: 68-62-5361qqtv 1 tablet by mouth once dailyFenofibrate 160 mg tablet Discontinued 160 MG PO Daily February 15, 2024 12:00am March 09, 2024 11:57am Start: 12-08-2023 End: 98-16-1135mhca 1 tablet by mouth once dailyFenofibrate Nanocrystallized 145 mg tablet Discontinued 145 MG PO Daily 90 90 December 08, 2023 3:54pm February 15, 2024 11:05amtake 1 tablet by mouth every twenty-four hoursFenofibrate 160 MG 1 tablet Orally Once a day for 30 days Activeglucagon (rdna) 1 mg injection (1 source)Antihypoglycemic AgentStart: 08-55-8311edzf 1 mL intravenous route every hour1 mg, Intramuscular, PRN, Low blood sugar, Blood glucose less than 70 mg/dL and patient NOT ALERT or NPO and does not have IV access., Starting 07/30/20 at 2152 After administration, attempt intravenous access and start D5W at 100 mL/hr. Repeat blood glucose in 15 minutes x2 and notify provider.1000 ml glucose 500 mg/ml injection (3 sources)Start: 04-28-652796 g, Oral, PRN, Low blood sugar, Starting [...] mg/dL, repeat treatment and recheck blood glucose in15 minutes x2 and notify provider.Start: 60-01-353920.5 g, Intravenous, PRN, Low blood sugar, Blood glucose less [...] and recheck blood glucose in 15 minutes x2.If using Glucostabilizer, dose as instructed per system.Start: 35-57-5613319 mL/hr, Intravenous, at 100 mL/hr, PRN, Low blood sugar, Starting 07/30/20 at 2152 Start infusion following administration of dextrose 50% or glucagon.hydrOXYzine hydrochloride 50 mg oral tablet (5 sources)AntihistamineStart: 2020 End: 32-66-0635rzhx 1 tablet by mouth three times daily as needed for anxiety hydrOXYzine (ATARAX) 50 MG tablet Take 1 tablet by mouth 3 times daily as needed for Anxiety 45 tablet 0 2020 03/16/2020 Activetake 1 capsule by mouth four times daily as neededhydrOXYzine (VISTARIL) 50 MG capsule Take 50 mg by mouth 4 times daily as needed for Itching 0 Active End: 65-74-7843JVBKNJGAUFH HCL PO Take by mouth 0 08/01/2020 Discontinued (Stop Taking at Discharge)3 ml insulin glargine 100 unt/ml pen injector (11 sources)Insulin AnalogStart: 89-15-3846Laenwgt Glargine (Lantus Solostar U- 100 Insulin) 100 unit/mL (3 mL) Insulin Pen Active 20 UNIT SUBCUT Daily 6 30 April 05, 2025 12:00amStart: 33-61-6162Pyqhfeu Glargine (Lantus Solostar U-100 Insulin) 100 unit/mL (3 mL) insulin pen Active 35 UNIT SUBCUT Every evening January 05, 2025 12:00amStart: 06-29-2024 End: 52-01-7586Pziikyf Glargine (Lantus Solostar U-100 Insulin) 100 unit/mL (3 mL) insulin pen Discontinued 36 UNIT SUBCUT Every evening 10.8 30 June 29, 2024 2:21pm January 05, 2025 6:39pm3 ml insulin lispro 100 unt/ml cartridge (7 sources)Insulin AnalogStart: 46-93-2275Wxvjbrt Lispro (Humalog U-100 Insulin) 100 unit/mL cartridge Active 0 sliding scale dose SUBCUT As Directed March 31, 2025 12:00am Please contact the information source for Protocol details.Start: 85-06-8272Lefdegt Lispro KwikPen 100 units/mL injectable solution Refills(s) 0 Start Date: 04/25/24 Status: OrderedStart: -12 Units, Subcutaneous, 3 TIMES DAILY WITH MEALS, First dose on Thu07/31/20 at 0800 Medium Dose Corrective Algorithm Glucose: Dose: If <139 &amp ;nbsp; No Insulin 140- 199 2 Units 200-249 4 Units 250-299 6 Units 300-349 8 Units&am p;nbsp;350-400 10 Units Above 400 12 UnitsStart: -6 Units, Subcutaneous, NIGHTLY, First dose on Thu07/30/20 at 2200 If continuous tube feedings/TPN/NPO, give correction dose based on result, no reduction in dose. If eating or bolus tube feeding: Medium Dose Corrective Algorithm Glucose: Dose: If & lt;139 &amp ;nbsp; No Insulin 140-199 &n bsp; 1 Unit 200-249 &a mp;nbsp; 2 Units 250- 299 3 Units 300-349 &a mp;nbsp; 4 Units 350-400 &nb sp; 5 Units Above 400 6 UnitsHumaLOG KwikPen 100 UNIT/ML as directed Subcutaneous sliding scale and corrective. for 30 days ActiveInsulin Lispro (Humalog Kwikpen Insulin) 100 unit/mL insulin pen (18 sources)Start: 46-15-9371Hmozklf Lispro (Humalog Kwikpen Insulin) 100 unit/mL insulin pen Active 12 UNIT SUBCUT THREE TIMES DAILY WITH MEALS June 29, 2024 11:22amStart: 75-85-1989Tuuquza Lispro (Humalog Kwikpen Insulin) 100 unit/mL insulin pen Active 1 sliding scale dose SUBCUTUse as Directed June 29, 2024 11:22am 12 units with each meal 150-200 - 3 units 200-330 - 6 units 330-399 - 9 units > 400 - 12 unitsStart: 12-08-2023 End: 15-13-1225Lufioee Lispro (Humalog Kwikpen Insulin) 100 unit/mL insulin pen Discontinued 1 sliding scale dose SUBCUT Use as Directed December 08, 2023 1:00am June 29, 2024 11:23amStart: 12-16-1995Soxgled Lispro (Humalog Kwikpen Insulin) 100 unit/mL insulin pen Active 1 sliding scale dose SUBCUTUse as Directed December 08, 2023 1:00amStart: 85-19-7182Grmowkv Lispro (Humalog Kwikpen Insulin) 100 unit/mL insulin pen Active 1 sliding scale dose SUBCUTUse as Directed December 08, 2023 12:00amlamoTRIgine 25 mg oral tablet (16 sources)Mood Stabilizer, Anti-epileptic AgentStart: 08-04-2024 End: 19-54-0232zlsa 1 tablet by mouth twice dailyLamotrigine 25 mg Tablet Active 25 MG PO Twice daily April 05, 2025 1:26pmStart: 56-69-9226LjRZQbwp 25 MG Oral Tablet 02/14/2020 Provider: Fito Villalobos CNPlisinopril 2.5 mg oral tablet (1 source)Angiotensin Converting Enzyme InhibitorStart: 80-70-8902yxjy 1 tablet by mouth once dailyLisinopril 2.5 mg Tablet Active 2.5 MG PO Daily 30 April 05, 2025 12:00ammeloxicam 7.5 mg oral tablet (3 sources)Nonsteroidal Anti-inflammatory DrugStart: 26-27-9008Qjtee 7.5 MG Oral Tablet 02/14/2020 Provider: Fito Villalobos CNPnicotine 2 mg chewing gum (2 sources)Cholinergic Nicotinic AgonistStart: 11-94-7172Extvidib (Polacrilex) 2 mg Gum Active 4 MG BUCCAL Q2H as needed for Nicotine Cravings March 12:00amStart: 62-34-1214kxcsweyu polacrilex (NICORETTE) gum 2 mgpolyethylene glycol 3350 38739 mg powder for oral solution (1 source)Osmotic LaxativeStart: g, Oral, DAILY PRN, Constipation, Starting 07/30/20 at 2152 First line therapy for constipationprazosin 2 mg oral capsule (20 sources)alpha-Adrenergic BlockerStart: 03-31-2025 End: 17-94-6134dstb 1 capsule by mouth at bedtimePrazosin 2 mg capsule Active 2 MG PO Bedtime 30 April 05, 2025 1:26pmStart: 01-05-2025 End: 52-49-2734pjlu 1 capsule by mouth at bedtimePrazosin 2 mg capsule Discontinued 2 MG PO Bedtime January 05, 2025 12:00am January 05, 2025 6:39pm Start: 03-03-2024 End: 11-55-8368pnwo 2 mg by mouth once daily at bedtimePrazosin Discontinued 2 MG PO Daily at bedtime March 03, 2024 1:11pm July 27, 2024 4:07pmStart: 02-15-2024 End: 59-30-4330sxjp 1 capsule by mouth once daily at bedtimePrazosin 1 mg capsule Discontinued 2 MG PO Daily at bedtime March 03, 2024 1:11pm July 27, 2024 4:07pmPromethazine (1 source)PhenothiazineStart: 34-15-8980punqaanwzyrl (PHENERGAN) tablet 12.5 mg sertraline 50 mg oral tablet (1 source)Serotonin Reuptake InhibitorStart: 85-61-2232rvmu 1 tablet by mouth once dailysertraline (ZOLOFT) 50 MG tablet Take 1 tablet by mouth daily 30 tablet 3 08/06/2020 ActiveStart: 44-05-8659tsqm 1 tablet by mouth once daily sertraline (ZOLOFT) 50 MG tablet Take 1 tablet by mouth daily 30 tablet 3 08/06/2020 Fxpzdi4337 ml sodium chloride 9 mg/ml injection (4 sources)Start: 00-45-510144 mL, Intravenous, EVERY 12 HOURS SCHEDULED (2 times per day), First dose on 07/30/20 at 2200Start: 85-62-3627dlsp 10 mL intravenous route once as wiinpe20 mL, Intravenous, PRN, Line Care, After every IV line use, Starting Thu07/30/20 at 2152Start: 07-30-2020 End: 55-43-2808Mzmrtzwnbhy, at 75 mL/hr, CONTINUOUS, Starting Thu07/30/20 at 2200traZODone hydrochloride 150 mg oral tablet (11 sources)Serotonin Reuptake InhibitorStart: 01-05-2025 End: 75-79-2965cmkb 1 tablet by mouth at bedtimeTrazodone 150 mg tablet Active 150 MG PO Bedtime April 05, 2025 1:26pmStart: 23-68-2301kjpd 1 tablet by mouth once daily as needed for sleeptraZODone (DESYREL) 50 MG tablet Take 1 tablet by mouth nightly as needed for Sleep 30 tablet 0 2020 Active Completed/Discontinued Medications MedicationDrug Class(es)DatesSig (Normalized)Sig (Original)[id number] 200 actuat albuterol 0.09 mg/actuat metered dose inhaler (10 sources)beta2-Adrenergic AgonistStart: 12-11-2023 End: 09-02-3415irik 1 puff(s) by inhalation four times daily as needed for wheezingAlbuterol Sulfate 90 mcg/actuation HFA aerosol inhaler Discontinued 2 PUFF INHALATION Four times daily as needed for shortness of breath or wheezing 8.5 December 11, 2023 1:00am July 27, 2024 4:05pmARIPiprazole 400 mg extended release prefilled syringe (13 sources)Atypical AntipsychoticStart: 01-09-2025 End: 39-49-0077seze 1 tablet by mouth once dailyAripiprazole 5 mg Tablet Discontinued 5 MG PO Daily January 09, 2025 12:00am March 31, 2025 1:17pm Start: 01-09-2025 End: 29-45-8945Sxnbusgjbuzv (Abilify Maintena) 400 mg Suspension,Extended Rel Syring Discontinued 400 MG IM Q28D 1M2024 12:00am April 05, 2025 1:57pmStart: 2020 End: 47-64-5196hbgi 1 tablet by mouth once dailyARIPiprazole (ABILIFY) 2 MG tablet Take 1 tablet by mouth daily 30 tablet 0 2020 07/31/2020 Di scontinued (LIST CLEANUP) End: 41-13-3962cvnb 1 tablet by mouth once dailyARIPiprazole (ABILIFY) 10 MG tablet Take 10 mg by mouth daily 0 08/05/2020 Discontinued (Stop Taking at Discharge) End: 08-65-4279crib 1 tablet by mouth once dailyARIPiprazole (ABILIFY) 5 MG tablet Take 5 mg by mouth daily 0 08/01/2020 Discontinued (Stop Taking at Discharge)atomoxetine 40 mg oral capsule (17 sources)Norepinephrine Reuptake InhibitorStart: 07-27-2024 End: 06-51-6663nakp 1 capsule by mouth once dailyAtomoxetine 40 mg capsule Discontinued 40 MG PO Daily July 27, 2024 4:12pm January 05, 2025 6:21pmStart: 06-29-2024 End: 96-16-5055onnj 1 capsule by mouth once dailyAtomoxetine (Strattera) 25 mg capsule Discontinued 25 MG PO Daily June 29, 2024 12:00amJuly 27, 2024 4:13pmStart: 73-16-9107qtifyhcwcpt 40 mg Cap Refills(s) 0 Start Date: 04/25/24 Status: Orderedazithromycin 250 mg oral tablet (12 sources)Macrolide AntimicrobialStart: 12-11-2023 End: 56-87-7029ajxi 2 tablets by mouth once daily, then take 1 tablet by mouth once dailyAzithromycin (Zithromax Z-Maximino) 250 mg tablet Discontinued 250 MG PO Daily 03 30December 11, 2023 1:00am February 15, 2024 10:58am take 2 tabs today and 1 daily for the next 4 daysStart: 91-98-7274ejiy 2 tablets by mouth once at mealtimeAzithromycin 600 MG 2 tablets Orally once for 1 days Take 2 tablets p.o. with food on Sep, Not-Taking/PRNbenzonatate 200 mg oral capsule (10 sources)Non-narcotic AntitussiveStart: 12-11-2023 End: 34-29-3212Synuzkqhvqv 200 mg capsule Discontinued 200 MG PO 2-3 TIMES PER DAY as needed for cough 2023 1:00am February 15, 2024 10:58am Blood-Glucose Meter kit (4 sources)Start: 06-29-2024 End: 27-10-1565Btbkn-Glucose Meter kit Discontinued 0 .Route June 29, 2024 12:00am April 05, 2025 1:57pm to test blood sugar dailyStart: 06-29-2024 Blood-Glucose Meter kit Active 0 .Route 1 June 29, 2024 12:00am to test blood sugar dailycefTRIAXone (3 sources)Cephalosporin AntibacterialStart: 73-03-6597Lyygzosa 500 mg Sep, 500 mgcephalexin 500 mg oral capsule (9 sources)Cephalosporin AntibacterialStart: 03-03-2024 End: 68-31-1242fsrq 1 capsule by mouth twice dailyCephalexin 500 mg capsule Discontinued 500 MG PO Twice daily 14 March 03, 2024 12:00am June 29, 2024 10:40amcinnamon bark 500 mg oral capsule (10 sources)Start: 02-15-2024 End: 68-80-9982zdrg 1 capsule by mouth once dailyCinnamon Bark (Cinnamon) 500 mg capsule Discontinued 1000 MG PO Daily February 15, 2024 12:00am July 27, 2024 4:06pmDULoxetine 30 mg delayed release oral capsule (3 sources)Serotonin and Norepinephrine Reuptake InhibitorStart: 2020 End: 22-53-0076jqna 3 capsules by mouth once dailyDULoxetine (CYMBALTA) 30 MG extended release capsule Take 3 capsules by mouth daily 90 capsule 0 2020 08/05/2020 Discontinued (Stop Taking at Discharge)etodolac 400 mg oral tablet (9 sources)Nonsteroidal Anti-inflammatory DrugStart: 03-03-2024 End: 94-51-8262ivjp 1 tablet by mouth twice dailyEtodolac 400 mg tablet Discontinued 400 MG PO Twice daily 60 30 March 03, 2024 12:00am July 27, 2024 4:07pmFenofibrate Nanocrystallized (8 sources)Start: 03-09-2024 End: 99-22-3436tzph 1 tablet by mouth once dailyFenofibrate Nanocrystallized Discontinued 0 .ROUTE .COMPLEX March 09, 2024 1:54pm July 27, 2024 4:06pm TAKE 1 TABLET BY MOUTH EVERY DAYStart: 35-09-4939ltdy 1 tablet by mouth once dailyFenofibrate Nanocrystallized Active 0 .ROUTE .COMPLEX 90 March 09, 2024 1:54pm TAKE 1 TABLET BY MOUTH EVERY DAYStart: 03-09-2024 End: 14-15-6488knnu 145 mg by mouth once dailyFenofibrate Nanocrystallized Discontinued 145 MG PO Daily March 09, 2024 12:00am March 09, 2024 1:54pm Fenofibrate Nanocrystallized 145 mg tablet (12 sources)Start: 08-09-2024 End: 53-42-2093npim 1 tablet by mouth once dailyFenofibrate Nanocrystallized 145 mg tablet Discontinued 0 .ROUTE .COMPLEX August 09, 2024 11:42am January 05, 2025 6:21pm TAKE 1 TABLET BY MOUTH EVERY DAYStart: 03-09-2024 End: 97-48-6349twwe 1 tablet by mouth once dailyFenofibrate Nanocrystallized 145 mg tablet Discontinued 0 .ROUTE .COMPLEX March 09, 2024 1:54pm July 27, 2024 4:06pm TAKE 1 TABLET BY MOUTH EVERY DAYStart: 03-09-2024 End: 11-03-3629kqtm 1 tablet by mouth once dailyFenofibrate Nanocrystallized 145 mg tablet Discontinued 145 MG PO Daily March 09, 2024 12:00am March 09, 2024 1:54pmgabapentin 300 mg oral capsule (12 sources)Anti-epileptic AgentStart: 02-15-2024 End: 49-92-7741ejie 1 capsule by mouth three times dailyGabapentin 300 mg capsule Discontinued 300 MG PO Three times daily February 15, 2024 12:00am 2023 4:06pminsulin detemir 100 unt/ml injectable solution (20 sources)Insulin AnalogStart: 12-08-2023 End: 51-25-9352bnlwkf 36 [IU] by subcutaneous injection once daily at bedtime Insulin Detemir U-100 (Levemir U-100 Insulin) 100 unit/mL solution Discontinued 36 UNIT SUBCUT Daily at bedtime 10.8 30 June 29, 2024 10:55am June 29, 2024 2:23pmLevemir FlexPen 100 UNIT/ML 36 units Subcutaneous nightly for 90 days Activemelatonin 10 mg oral capsule (12 sources)Start: 02-15-2024 End: 43-34-9314sapf 1 capsule by mouth once daily at bedtime as neededMelatonin 10 mg capsule Discontinued 10 MG PO Daily at bedtime as needed February 15, 2024 12:00am July 27, 2024 4:07pmmetFORMIN hydrochloride 1000 mg oral tablet (7 sources)BiguanideStart: 01-05-2025 End: 88-56-9858tyrh 1 tablet by mouth twice dailyMetformin 1,000 mg tablet Discontinued 1000 MG PO Twice daily January 05, 2025 12:00am March 31, 2025 1:22pmStart: 64-22-5350cyze 1 tablet by mouth twice daily at mealtimemetFORMIN (GLUCOPHAGE) 1000 MG tablet Take 1 tablet by mouth 2 times daily (with meals) 60 tablet Active End: 53-26-1013scfi 500 mg by mouth twice daily at mealtimeMETFORMIN HCL PO Take 500 mg by mouth 2 times daily (with meals) 0 08/05/2020 Discontinued (Stop Andre ing at Discharge)methylPREDNISolone 4 mg oral tablet (10 sources)CorticosteroidStart: 12-11-2023 End: 99-55-6502yvdl 1 tablet by mouth onceMethylprednisolone (Medrol (Maximino)) 4 mg tablets,dose pack Discontinued 0 PO per package directions 1February 2023 1:00am February 15, 2024 10:58am PO PER PKG DIR for 6 daysmetroNIDAZOLE 500 mg oral tablet (2 sources)Nitroimidazole AntimicrobialStart: 93-41-4274puug 4 tablets by mouth once at mealtimemetroNIDAZOLE 500 MG 4 tablets Orally once for 1 days Take all 4 tablets by mouth with food on Sep, Not-Taking/PRNStart: 82-58-3972cemt 4 tablets by mouth once at mealtimemetroNIDAZOLE 500 MG 4 tablets Orally once for 1 days Take all 4 tablets by mouth with food on Sep, Activenaproxen 500 mg oral tablet (5 sources)Nonsteroidal Anti-inflammatory DrugStart: 08-04-2024 End: 31-93-8171zboe 1 tablet by mouth twice daily at mealtimeNaproxen 500 mg Tablet Discontinued 500 MG PO Twice daily with meals 60 August 04, 2024 12:00am January 05, 2025 6:21pmtiZANidine 4 mg oral tablet (20 sources)Central alpha-2 Adrenergic AgonistStart: 08-04-2024 End: 00-37-3031lezo 6 mg by mouth twice daily as neededTizanidine 4 mg Tablet Discontinued 6 MG PO Twice daily as needed for muscle spasticity August 04, 2024 12:00am January 05, 2025 6:21pmStart: 69-75-0045mawg 6 mg by mouth twice dailyTizanidine Active 6 MG PO Twice daily August 04, 2024 12:00amStart: 08-01-2024 End: 67-99-1013aukp 4 mg by mouth once daily at bedtime as neededTizanidine 6 mg capsule Discontinued 4 MG PO Daily at bedtime as needed for muscle spasticity August 01, 2024 12:00am August 03, 2024 9:47amStart: 08-01-2024 End: 86-21-6403qdyp 4 mg by mouth once daily at bedtimeTizanidine Discontinued 4 MG PO Daily at bedtime August 01, 2024 12:00am August 03, 2024 9:47amStart: 07-27-2024 End: 29-11-9705wqfu 1 capsule by mouth once daily at bedtime as neededTizanidine 6 mg capsule Discontinued 6 MG PO Daily at bedtime as needed for muscle spasticity 90 90October 2023 12:19pm August 01, 2024 11:58amStart: 06-29-2024 End: 49-62-9186icml 2 capsules by mouth once daily at bedtimeTizanidine 2 mg capsule Discontinued 4 MG PO Daily at bedtime as needed for muscle spasticity 60 30Sept2023 12:00am July 27, 2024 4:15pm take 1-2 at bedtime Start: 06-29-2024 End: 79-72-9359uimg 4 mg by mouth once daily at bedtimeTizanidine Discontinued 4 MG PO Daily at bedtime 60 30 June 29, 2024 12:00am July 27, 2024 4:15pm take 1-2 at bedtimevalACYclovir 1000 mg oral tablet (2 sources)Herpesvirus Nucleoside Analog DNA Polymerase Inhibitor, Herpes Simplex Virus Nucleoside Analog DNA Polymerase Inhibitor, Herpes Zoster Virus Nucleoside Analog DNA Polymerase InhibitorStart: 30-24-8022sipg 1 tablet by mouth every twelve hoursvalACYclovir HCl 1 GM 1 tablet Orally 2 times a day for 10 day(s) Sep, Not-Taking/PRNStart: 22-22-9291ctqc 1 tablet by mouth every twelve hoursvalACYclovir HCl 1 GM 1 tablet Orally 2 times a day for 10 day(s) Sep, Active Problems Active Problems Problem ClassificationProblemDateDocumented DateEpisodic/ChronicAdjustment disorders (13 sources)Adjustment disorder with anxious mood; 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: [Adjustment disorder with anxiety]23-44-4464IfjcqccIpxpbhw-related disorders (3 sources)Alcohol abuse, in remission; 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: [Alcohol dependence, in remission]Onset: 40-49-1090XcsanxmIdlzdzi disorders (4 sources)Posttraumatic stress disorder; 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: [Anxiety]Onset: 47-54-3158DrxbtacXwveeccbr-deficit conduct and disruptive behavior disorders (12 sources)Attention deficit hyperactivity disorder; 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: [Attention- deficit hyperactivity disorder, unspecified type]Onset: ChronicAttention-deficit, conduct, and disruptive behavior disorders (6 sources)Attention-deficit hyperactivity disorder, unspecified type; 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: [Attention deficit disorder with hyperactivity]66-91-8343Klpassm Cardiac dysrhythmias (1 source)Tachycardia, unspecified; 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: [TACHYCARDIA UNSPECIFIED] Onset: 53-83-2911AmndbrtoDbmubkr obstructive pulmonary disease and bronchiectasis (12 sources)Bronchitis; 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: [Bronchitis, not specified as acute or chronic]27-27-7616ZivapvghSyuyqcbctyxlx and procreative management (1 source)Contraception status; 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: [Encounter for other general counseling and advice on contraception]Onset: 00-30-6098AkbmryzaAddvicfcuy and other anemia (1 source)Iron deficiency anemia, unspecified; 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: [IRON DEFICIENCY ANEMIA UNSPECIFIED]Onset: 49-46-9459CdmtliwwXcuwotca mellitus with complications (7 sources)Type 2 diabetes mellitus with hyperglycemia; 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: [Other specified diabetes mellitus with hyperglycemia]Onset: 40-77-5272RfuqlnbOoybbrnx mellitus without complication (20 sources)Diabetes mellitus; 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: [Type 2 diabetes mellitus without complications]Onset: 380155-40-9341HcskdcqBruehkmiv of lipid metabolism (20 sources)Hypertriglyceridemia; 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: [Pure hyperglyceridemia]Onset: 637434-11-6930OrplsyqNjheymffwgcrt symptoms and ill-defined conditions (3 sources)Increased frequency of urination; 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: [Frequency of micturition]Onset: 37-11-7930KikjgovoVierjzwk; including migraine (4 sources)Migraine; 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: [Other migraine, not intractable, without status migrainosus]Onset: 589562-99-1223FlqpybeLcfa disorders (20 sources)Bipolar disorder; 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: [Unspecified mood [affective] disorder]Onset: 275031-59-5715QycrsfeDotq disorders (1 source)Mood disorders; 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: [Depression, unspecified]Onset: 66-22-6145Nsfvwgyfoiu chest pain (3 sources)Chest pain, unspecified; 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: [Chest pain]Onset: 05-09-2025 EpisodicOsteoarthritis (2 sources)Kngreggsk12-91-8902AdyqshzBypsn aftercare (1 source)Long-term current use of insulin; 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: [half-way (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]EpisodicOther nervous system disorders (1 source)Chronic pain; 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: [Other chronic pain]ChronicOther nervous system disorders (2 sources)Other chronic pain; 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: [Other chronic pain]Onset: 77-79-4138OzgjolrTetqx nervous system disorders (9 sources)Neuropathy; 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: [Polyneuropathy, unspecified]02-16-2024 ChronicOther nervous system disorders (8 sources)Polyneuropathy, unspecified; 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: [Mononeuritis of unspecified site]37-93-1729KmpfdqcAdlxd nervous system disorders (4 sources)Toxic metabolic encephalopathy; 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: [Toxic metabolic encephalopathy]Onset: 024498-32-9823OhhsjfglRoxzm non-traumatic joint disorders (3 sources)Knee pain; 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: [Arthralgia - Knee / Patella / Tibia / Fibula]Onset: 47-03-0093XgdafuzjXeeuq non-traumatic joint disorders (12 sources)Pain in left knee; 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: [Chronic pain of left knee]Episodic Other non-traumatic joint disorders (2 sources)Pain in left knee; 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: [Left knee pain, unspecified chronicity]Other nutritional; endocrine; and metabolic disorders (3 sources)Morbid obesity; 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: [Obesity Morbid]Onset: 02-14-2020 ChronicOther screening for suspected conditions (not mental disorders or infectious disease) (3 sources)Encounter for screening for diabetes mellitus; 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: [Diabetes Risk Test Score]Onset: 79-81-4905NcfbuztmJjayzqsjtu disorders (not diabetes) (3 sources)Acute pancreatitis without necrosis or infection, unspecified; 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: [ACUTE PANCREATITIS WONECRS/INF UNS]Onset: 75-43-1001Rjjctjzr Personality disorders (1 source)Borderline personality disorder; 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: [Borderline personality disorder]Onset: 930389-85-0909TrcxiltYcxgqbjlm by other medications and drugs (4 sources)Intentional drug overdose; 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: [Suicide attempt by multiple drug overdose]Onset: 003715-18-9791MjiirefcGhbjxbdr codes; unclassified (1 source)High risk heterosexual behaviorEpisodicResidual codes; unclassified (17 sources)Noncompliance with treatment; 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: [Noncompliance] 74-80-4749RkprezsuZmft and subcutaneous tissue infections (10 sources)Cellulitis of neck; 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: [Cellulitis of neck]03-03-2024 EpisodicSubstance-related disorders (7 sources)Nicotine dependence; 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: [Cannabis abuse, uncomplicated] Onset: 826759-90-8421LewvkigHgvlhav on above:Added secondary to documentation in Social History.Substance-related disorders (2 sources)Cannabis use, unspecified, uncomplicated; 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: [Cannabis use, unspecified, uncomplicated]Onset: 81-44-3598BapqsrdrGsecxshjsvis (1 source)CONTACT W/AND (SUSP) EXPOS COVID-19; 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: [CONTACT W/AND (SUSP) EXPOS COVID-19]Onset: 67-43-9418Egtcrqyhzwuf (1 source)Patient's noncompliance with other medical treatment and regimen due to unspecified reason; 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: [Patient's noncompliance with other medical treatment and regimen due to unspecified reason]Onset: 56-60-0187Uascr infection (15 sources)Genital herpes simplex; 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: [Herpesviral infection of urogenital system, unspecified]Chronic Past or Other Problems Problem ClassificationProblemDateDocumented DateEpisodic/ChronicHeadache; including migraine (1 source)Headache; including migraineOther aftercare (4 sources)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; 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: [half-way (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]Onset: 20-11-6401RylkrydpTcphpdpwcjy; intervertebral disc disorders; other back problems (19 sources)Chronic back pain ; 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: [Dorsalgia, unspecified]Onset: 554531-22-7951SfyznsxxJvpdbly and intentional self-inflicted injury (1 source)Suicidal ideations; 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: [Suicidal ideations]Onset: 63-66-3429MzvwfqhjAivybjmlwpbw (3 sources)Finding of body mass index; 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: [Body Mass Index]Onset: 02-14-2020 Results Test NameValueInterpretationReference RangeFacilityXR CHEST 1 VWon 22-74-9156TZ CHEST 1 VWXR CHEST 1 VW HISTORY: A 25-year-old male [...] by Manas Nunn MD on 05/09/2025 9:29 [facility] HospitalGlucose Glucometer (BldC) [Mass/Vol]Ordered By: Blue Talbot on 12-55-6830Assuewb [Mass/Vol]Capillary blood glucose measurement by glucometer (mass/volume)[facility] CenterComment on above:Random Glucose Reference Range is dependent on time and content of last meal. Glucose of more than 200 mg/dL in a nonstressed, ambulatory subject supports the diagnosis of Diabetes Mellitus.Glucose Poct Glucometerson 30-58-4029Bcataqh [Mass/Vol]196 mg/dLNoUNC Health Physician GroupComment on above:Result Comment: Random Glucose Reference Range is dependent on time and content of last meal. Glucose of more than 200 mg/dL in a nonstressed, ambulatory subject supports the diagnosis of Diabetes Mellitus. PERFORMED BY: [place] [id number] PATHOLOGIST MET[employer] CASKET ASSEMBLER BRAEDEN COLE M.D.Performed By: #### GLULS #### Point of Care testing ,Zqlpixp9Jjr2: Cleaned MeterBaptist Health Hospital Doral Physician GroupComment on above: Result Comment: PERFORMED BY: [facility] [address] [place] [address] PATHOLOGIST METAL CASKET ASSEMBLER BRAEDEN COLE M.D.Performed By: #### GLULS #### Point of Care testing ,Glucose [Mass/Vol]246 mg/dLBaptist Health Hospital Doral Physician GroupComment on above: Result Comment: Random Glucose Reference Range is dependent on time and content of last meal. Glucose of more than 200 mg/dL in a nonstressed, ambulatory subject supports the diagnosis of Diabetes Mellitus.Performed By: #### GLULS #### Point of Care testing ,No Panel InformationOrdered By: Blue Talbot on 75-69-6682Yrpyrbb Glucose CommentGlu2: cleaned [facility] HospitalGlucose Poct Glucometerson 46-04-0007Easlixm [Mass/Vol]239 mg/dLNoUNC Health Physician GroupComment on above:Result Comment: Random Glucose Reference Range is dependent on time and content of last meal. Glucose of more than 200 mg/dL in a nonstressed, ambulatory subject supports the diagnosis of Diabetes Mellitus. PERFORMED BY: [place] [address] PATHOLOGIST METAL CASKET ASSEMBLER BRAEDEN COLE M.D.Performed By: #### GLULS #### Point of Care testing ,Glucose [Mass/Vol]212 mg/dLBaptist Health Hospital Doral Physician GroupComment on above: Result Comment: Random Glucose Reference Range is dependent on time and content of last meal. Glucose of more than 200 mg/dL in a nonstressed, ambulatory subject supports the diagnosis of Diabetes Mellitus. PERFORMED BY: [place] [address] PATHOLOGIST METAL CASKET ASSEMBLER BRAEDEN COLE M.D.Performed By: #### URDS, ADDONUAPLUS #### [place] [address] OMIItkxuuj9Dfi3: Cleaned MeterNoUNC Health Physician GroupComment on above:Result Comment: PERFORMED BY: [place] [address] PATHOLOGIST METAL CASKET ASSEMBLER BRAEDEN COLE M.D.Performed By: #### GLULS #### Point of Care testing ,Glucose [Mass/Vol]234 mg/dLNoUNC Health Physician GroupComment on above: Result Comment: Random Glucose Reference Range is dependent on time and content of last meal. Glucose of more than 200 mg/dL in a nonstressed, ambulatory subject supports the diagnosis of Diabetes Mellitus.Performed By: #### GLULS #### Point of Care testing ,Ezxjohr1Kid9: Cleaned MeterNoUNC Health Physician GroupComment on above: Result Comment: PERFORMED BY: [place] [address] PATHOLOGIST METAL CASKET ASSEMBLER BRAEDEN COLE M.D.Performed By: #### URDS, ADDONUAPLUS #### [place] [address] USAGlucose [Mass/Vol]255 mg/dLNoUNC Health Physician GroupComment on above:Result Comment: Random Glucose Reference Range is dependent on time and content of last meal. Glucose of more than 200 mg/dL in a nonstressed, ambulatory subject supports the diagnosis of Diabetes Mellitus.Performed By: #### URDS, ADDONUAPLUS #### [place] [address] USAGlucose Poct Glucometerson 28-83-2819Ffpsuys9Rvj7: Cleaned MeterNoUNC Health Physician GroupComment on above:Result Comment: PERFORMED BY: [place] [address] PATHOLOGIST METAL CASKET ASSEMBLER BRAEDEN COLE M.D.Performed By: #### GLULS #### Point of Care testing ,Glucose [Mass/Vol]230 mg/dLBaptist Health Hospital Doral Physician GroupComment on above: Result Comment: Random Glucose Reference Range is dependent on time and content of last meal. Glucose of more than 200 mg/dL in a nonstressed, ambulatory subject supports the diagnosis of Diabetes Mellitus.Performed By: #### GLULS #### Point of Care testing ,Arppvlt1Tzs5: Cleaned MeterNoUNC Health Physician GroupComment on above: Result Comment: PERFORMED BY: [place] [address] PATHOLOGIST METAL CASKET ASSEMBLER BRAEDEN COLE M.D.Performed By: #### GLULS #### Point of Care testing ,Glucose [Mass/Vol]236 mg/dLBaptist Health Hospital Doral Physician GroupComment on above: Result Comment: Random Glucose Reference Range is dependent on time and content of last meal. Glucose of more than 200 mg/dL in a nonstressed, ambulatory subject supports the diagnosis of Diabetes Mellitus.Performed By: #### GLULS #### Point of Care testing ,Glucose [Mass/Vol]175 mg/dLBaptist Health Hospital Doral Physician GroupComment on above: Result Comment: Random Glucose Reference Range is dependent on time and content of last meal. Glucose of more than 200 mg/dL in a nonstressed, ambulatory subject supports the diagnosis of Diabetes Mellitus. PERFORMED BY: [place] [address] PATHOLOGIST METAL CASKET ASSEMBLER BRAEDEN COLE M.D.Performed By: #### GLULS #### Point of Care testing ,Ntjrvzi6Lis7: Cleaned MeterNoUNC Health Physician GroupComment on above: Result Comment: PERFORMED BY: [facility] [place] [address] PATHOLOGIST METAL CASKET ASSEMBLER BRAEDEN COLE M.D.Performed By: #### GLULS #### Point of Care testing ,Glucose [Mass/Vol]278 mg/dLBaptist Health Hospital Doral Physician GroupComment on above: Result Comment: Random Glucose Reference Range is dependent on time and content of last meal. Glucose of more than 200 mg/dL in a nonstressed, ambulatory subject supports the diagnosis of Diabetes Mellitus.Performed By: #### GLULS #### Point of Care testing ,Alanine aminotransferase [Enzymatic activity/volume] in Serum or PlasmaOrdered By: Rola Valdes on 04-48-6745DKX [Catalytic activity/Vol]Alanine aminotransferase [Enzymatic activity/volume] in Serum or Plasma7As[facility] Medical CenterAlbumin [Mass/volume] in Serum or Plasma by Bromocresol green (BCG) dye binding methoOrdered By: Rola Valdes on 04-02-2025 Albumin BCG dye [Mass/Vol]Albumin [Mass/volume] in Serum or Plasma by Bromocresol green (BCG) dye binding metho3.5-5.7FMercy Health St. Elizabeth Boardman HospitalAlkaline phosphatase [Enzymatic activity/volume] in Serum or PlasmaOrdered By: Rola Valdes on 89-26-2624SME [Catalytic activity/Vol]Alkaline phosphatase [Enzymatic activity/volume] in Serum or Lxvqua54-731ZffsaurpcAshtabula County Medical CenterApolipoprotein Bon 29-59-3402Wcnqguogdjjidp B [Mass/Vol] 83 mg/dLNormal<90The [facility] Physician GroupComment on above:Result Comment: Desirable < 90 Borderline High 90 - 99 High 100 - 130 Very High >130 ASCVD RISK THERAPEUTIC TARGET CATEGORY APO B (mg/dL) Very High Risk <80 (if extreme risk <70) High Risk <90 Moderate Risk <90 Performed at: [facility] [id number] Television Servicer: Jermaine Perdomo MD, Phone: [phone] PERFORMED BY: [facility] [address] [place] [address] PATHOLOGIST METAL CASKET ASSEMBLER BRAEDEN COLE M.D.Performed By: #### GLULS #### Point of Care testing ,Aspartate aminotransferase [Enzymatic activity/volume] in Serum or Plasma Ordered By: Rola Valdes on 62-64-2936FYM [Catalytic activity/Vol] Aspartate aminotransferase [Enzymatic activity/volume] in Serum or PlasmaLow 13-39[facility] Medical CenterBilirubin.total [Mass/volume] in Serum or PlasmaOrdered By: Rola Valdes on 71-11-3089Wtszkpqhn [Mass/Vol] Bilirubin.total [Mass/volume] in Serum or Plasma0.3-1.0[facility] CenterCalcium [Mass/volume] in Serum or PlasmaOrdered By: Rola Valdes on 98-81-3218Xuoahdg [Mass/Vol]Calcium [Mass/volume] in Serum or Plasma8.6-10.3FMercy Health St. Elizabeth Boardman HospitalCarbon dioxide, total [Moles/volume] in Serum or PlasmaOrdered By: Rola Valdes on 04-02-2025 CO2 [Moles/Vol]Carbon dioxide, total [Moles/volume] in Serum or Alahcv18.0-31.0 [facility] CenterChloride [Moles/volume] in Serum or Plasma Ordered By: Rola Valdes on 22-47-1625Ekicgnlr [Moles/Vol]Chloride [Moles/volume] in Serum or Gdjmbv09-097GvqihdumjAshtabula County Medical Center Cholesterol [Mass/volume] in Serum or PlasmaOrdered By: Rola Valdes on 71-73-6543Sqgclxcdhge [Mass/Vol]Cholesterol [Mass/volume] in Serum or Plasma Significant change le791-671EnbweibdqAshtabula County Medical CenterComment on above: Delta: 267 on 04/01/25-0455Chol less than 200 mg/dl low riskChol 201-239 mg/dl borderline riskChol 240 mg/dl and greater high riskCholesterol in HDL [Mass/volume] in Serum or PlasmaOrdered By: Rola Valdes on 04-02-2025 Cholesterol in HDL [Mass/Vol]Serum or plasma high density lipoprotein (HDL) cholesterol ofootjlpfyh29-14NjyuwiayxAshtabula County Medical CenterComment on above: HDL CHOL ATP-III CLASSIFICATION Cardiovascular RiskHDL > or equal to 60 mg/dL LOWHDL < 40 mg/dL HIGHCholesterol in LDL Calc [Mass/Vol]Ordered By: Rola Valdes on 36-71-8573Ygknpugzxmv in LDL [Mass/Vol]Cholesterol in LDL [Mass/volume] in Serum or Plasma by calculation0-[facility] Medical CenterComment on above:LDL ATP III CLASSIFICATIONLDL less than 100 mg/dL OptimalLDL 100-129 mg/dL Near or above tmhwwnfRDS214-984 mg/dL Borderline highLDL 160-189 mg/dL HighLDL greater than 189 mg/dL Very highCholesterol in LDL [Mass/volume] in Serum or PlasmaOrdered By: Rola Valdes on 04-02-2025 Cholesterol in LDL [Mass/Vol]Cholesterol in LDL [Mass/volume] in Serum or Plasma 0-[facility] Medical CenterComment on above:LDL ATP III CLASSIFICATIONLDL less than 100 mg/dL OptimalLDL 100-129 mg/dL Near or above rdumifqQIE593-792 mg/dL Borderline highLDL 160-189 mg/dL HighLDL greater than 189 mg/dL Very highCholesterol in VLDL Calc [Mass/Vol]Ordered By: Rola Valdes on 44-33-4349Vucddtbjgfj in VLDL [Mass/Vol]Cholesterol in VLDL [Mass/volume] in Serum or Plasma by calculationAshtabula County Medical Center Comment on above:Test not performedComprehensive Metabolic Panelon 04-02-2025 Albumin [Mass/Vol]4.0 g/dLNormal3.5-5.7The [facility] Physician GroupComment on above:Order Comment: FASTING YPerformed By: #### GLULS #### Point of Care testing ,Albumin/Globulin [Mass ratio]1.8 {ratio}NormalThe Highlands-C[facility]iers Hospital Physician Group Comment on above:Order Comment: FASTING YPerformed By: #### GLULS #### Point of Care testing ,ALP [Catalytic activity/Vol]38 U/RRcojxp38-115Bup [facility] Comment on above:Order Comment: FASTING YPerformed By: #### GLULS #### Point of Care testing ,ALT [Catalytic activity/Vol]14 U/LNormal7-52The [facility] Comment on above:Order Comment: FASTING YPerformed By: #### GLULS #### Point of Care testing ,Anion gap [Moles/Vol]10.7 mmol/LNormal6.0-15.0[facility] Comment on above:Order Comment: FASTING YPerformed By: #### GLULS #### Point of Care testing ,AST [Catalytic activity/Vol]12 U/LRyh62-51Wey [facility] Hospital Physician GroupComment on above:Order Comment: FASTING YPerformed By: #### GLULS #### Point of Care testing ,Bilirubin [Mass/Vol]0.8 mg/dLNormal0.3-1.0The [facility] Hospital Physician GroupComment on above:Order Comment: FASTING YPerformed By: #### GLULS #### Point of Care testing ,Calcium [Mass/Vol]8.7 mg/dLNormal8.6-10.3The [facility] Hospital Physician GroupComment on above:Order Comment: FASTING YPerformed By: #### GLULS #### Point of Care testing ,Chloride [Moles/Vol]101 mmol/KGygqdm10-022Hrb [facility] Physician GroupComment on above:Order Comment: FASTING YPerformed By: #### GLULS #### Point of Care testing ,CO2 [Moles/Vol]26.2 mmol/ZKuwrci84.0-31.0The [facility] Physician GroupComment on above:Order Comment: FASTING YPerformed By: #### GLULS #### Point of Care testing ,Creatinine [Mass/Vol]0.85 mg/dLNormal0.70-1.30[facility] Comment on above:Order Comment: FASTING YPerformed By: #### GLULS #### Point of Care testing ,Creatinine Clr Calc Zlplktmc935.88NoUNC Health Physician GroupComment on above:Order Comment: FASTING YPerformed By: #### GLULS #### Point of Care testing ,GFR/1.73 sq M.predicted MDRD (S/P/Bld) [Vol rate/Area]mL/min/{1.73_m2}NormalThe Highlands-Cashiers Hospital Physician GroupComment on above:Order Comment: FASTING YPerformed By: #### GLULS #### Point of Care testing ,Globulin (S) [Mass/Vol]2.2 g/dLNoUNC Health Physician GroupComment on above:Order Comment: FASTING YPerformed By: #### GLULS #### Point of Care testing ,Glucose [Mass/Vol]312 mg/cYFejy33-501Cnl [facility] Physician GroupComment on above:Order Comment: FASTING YResult Comment: Random Glucose Reference Range is dependent on time and content of last meal. Glucose of more than 200 mg/dL in a nonstressed, ambulatory subject supports the diagnosis of Diabetes Mellitus. ADA recommended reference rangePerformed By: #### GLULS #### Point of Care testing ,Potassium [Moles/Vol]3.9 mmol/LNormal3.5-5.1[facility] Comment on above:Order Comment: FASTING YPerformed By: #### GLULS #### Point of Care testing ,Protein [Mass/Vol]6.2 g/dLLow6.4-8.9[facility] Physician GroupComment on above:Order Comment: FASTING YPerformed By: #### GLULS #### Point of Care testing ,Sodium [Moles/Vol]134 mmol/GZxy873-295Gqh [facility] Physician GroupComment on above:Order Comment: FASTING YPerformed By: #### GLULS #### Point of Care testing ,Urea nitrogen [Mass/Vol]14 mg/dLNormal7-25ThPower County Hospital Physician GroupComment on above:Order Comment: FASTING YPerformed By: #### GLULS #### Point of Care testing ,Creatinine [Mass/volume] in Serum or PlasmaOrdered By: Rola Valdes on 24-68-6085Jmqpegrgho [Mass/Vol]Creatinine [Mass/volume] in Serum or Plasma 0.70-1.30[facility] CenterGlobulin Calc (S) [Mass/Vol]Ordered By: Rola Valdes on 22-73-5480Bcknekax (S) [Mass/Vol]Serum globulin measurement by calculation (mass/volume)[facility] CenterGlucose Poct Glucometerson 65-50-9403Lzasyzt8Xyr1: Cleaned MeterBaptist Health Hospital Doral Physician GroupComment on above:Result Comment: PERFORMED BY: [place] [address] PATHOLOGIST [employer]ET ASSEMBLER BRAEDEN COLE M.D.Performed By: #### GLULS #### Point of Care testing ,Glucose [Mass/Vol]267 mg/dLBaptist Health Hospital Doral Physician GroupComment on above: Result Comment: Random Glucose Reference Range is dependent on time and content of last meal. Glucose of more than 200 mg/dL in a nonstressed, ambulatory subject supports the diagnosis of Diabetes Mellitus.Performed By: #### GLULS #### Point of Care testing ,Uvbqitd6Wqn0: Cleaned MeterBaptist Health Hospital Doral Physician GroupComment on above: Result Comment: PERFORMED BY: [place] [address] PATHOLOGIST MET[employer]ET ASSEMBLER BRAEDEN COLE M.D.Performed By: #### URDS, ADDONUAPLUS #### [facility] [address] [place] [address] USAGlucose [Mass/Vol]308 mg/dLNoUNC Health Physician GroupComment on above:Result Comment: Random Glucose Reference Range is dependent on time and content of last meal. Glucose of more than 200 mg/dL in a nonstressed, ambulatory subject supports the diagnosis of Diabetes Mellitus.Performed By: #### URDS, ADDONUAPLUS #### [facility] [address] [place] [address] JRVGzjpazo8Djh6: Cleaned MeterBaptist Health Hospital Doral Physician GroupComment on above:Result Comment: PERFORMED BY: [facility] [address] [place] [address] PATHOLOGIST [employer]ET ASSEMBLER BRAEDEN COLE M.D.Performed By: #### GLULS #### Point of Care testing ,Glucose [Mass/Vol]279 mg/dLBaptist Health Hospital Doral Physician GroupComment on above: Result Comment: Random Glucose Reference Range is dependent on time and content of last meal. Glucose of more than 200 mg/dL in a nonstressed, ambulatory subject supports the diagnosis of Diabetes Mellitus.Performed By: #### GLULS #### Point of Care testing ,Truxehk6Icl3: Cleaned MeterNoUNC Health Physician [facility]obush[facility] General HospitalComment on above: Result Comment: PERFORMED BY: [facility] [address] [place] [address] PATHOLOGIST MET[employer]ET ASSEMBLER BRAEDEN COLE M.D.Performed By: #### GLULS #### Point of Care testing ,Glucose [Mass/Vol]302 mg/dLBaptist Health Hospital Doral Physician GroupComment on above: Result Comment: Random Glucose Reference Range is dependent on time and content of last meal. Glucose of more than 200 mg/dL in a nonstressed, ambulatory subject supports the diagnosis of Diabetes Mellitus.Performed By: #### GLULS #### Point of Care testing ,Glucose [Mass/volume] in Serum or PlasmaOrdered By: Rola Valdes on 07-31-4468Htfswlp [Mass/Vol]Glucose [Mass/volume] in Serum or VdqipiTofv74-186 [facility] CenterComment on above:ADA recommended reference rangeRandom Glucose Reference Range is dependent on time and content of last meal. Glucose of more than 200 mg/dL in a nonstressed, ambulatory subject supports the diagnosisof Diabetes Mellitus.LDL Cholesterol Measuredon 04-02-2025 LDL Cholesterol Bllhrznw57 mg/dLNormal0-100[facility] Physician GroupComment on above:Order Comment: FASTING YResult Comment: LDL ATP III CLASSIFICATION LDL less than 100 mg/dL Optimal LDL 100-129 mg/dL Near or above optimal LDL 130-159 mg/dL Borderline high LDL 160-189 mg/dL High LDL greater than 189 mg/dL Very high PERFORMED BY: [facility] [address] [place] [address] PATHOLOGIST MET[employer]ET ASSEMBLER BRAEDEN COLE M.D.Performed By: #### GLULS #### Point of Care testing ,Lipaseon 90-73-4052Cyehch [Catalytic activity/Vol]39.0 U/ZJfzjvf11.0-82.0The [facility] Physician GroupComment on above:Order Comment: FASTING YPerformed By: #### GLULS #### Point of Care testing ,Lipase [Enzymatic activity/volume] in Serum or PlasmaOrdered By: Rola aVldes on 59-11-6687Lowecz [Catalytic activity/Vol]Lipase [Enzymatic activity/volume] in Serum or Jpojkv37.0-82.0[facility] Lipid Panelon 85-87-1599Hojrulxpvfs [Mass/Vol]196 mg/dLInvalid Interpretation Axoh246-594Uma [facility] Physician GroupComment on above:Order Comment: FASTING YResult Comment: Chol less than 200 mg/dl low risk Chol 201-239 mg/dl borderline risk Chol 240 mg/dl and greater high riskPerformed By: #### GLULS #### Point of Care testing ,Cholesterol in HDL [Mass/Vol]23 mg/qYIjnoxa88-42Siw [facility] Comment on above:Order Comment: FASTING YResult Comment: HDL CHOL ATP-III CLASSIFICATION Cardiovascular Risk HDL > or equal to 60 mg/dL LOW HDL < 40 mg/dL HIGHPerformed By: #### GLULS #### Point of Care testing ,Cholesterol.total/Cholesterol in HDL [Mass ratio]8.5 {ratio}Normal<5.0The [facility] Physician GroupComment on above:Order Comment: FASTING YResult Comment: PERFORMED BY: [facility] [address] [place] [address] PATHOLOGIST MET[employer] C[employer]ET ASSEMBLER BRAEDEN COLE M.D.Performed By: #### GLULS #### Point of Care testing ,LDL Cholesterol,Calculated<34Olkzed2-967Xuh [facility] Physician GroupComment on above:Order Comment: FASTING YResult Comment: LDL ATP III CLASSIFICATION LDL less than 100 mg/dL Optimal LDL 100-129 mg/dL Near or above optimal LDL 130-159 mg/dL Borderline high LDL 160-189 mg/dL High LDL greater than 189 mg/dL Very highPerformed By: #### GLULS #### Point of Care testing ,Triglyceride w/Sqfplw997 mg/dLHigh0-149The [facility] Physician GroupComment on above:Order Comment: FASTING YResult Comment: TRIG ATP III CLASSIFICATION TRIG less than 150 mg/dL Normal TRIG 150-199 mg/dL Borderline high TRIG 200-500 mg/dL High TRIG greater than 500 mg/dL Very high Standard traceable to the Center for Disease Conrtrol and Prevention (CDC) test method. If the triglyceride result is greater than 400, LDLC and related calculations cannot be calculated and resulted.Performed By: #### GLULS #### Point of Care testing ,VLDL CHOLESTEROLNot performedNormalThPower County Hospital Physician GroupComment on above:Order Comment: FASTING YPerformed By: #### GLULS #### Point of Care testing ,No Panel InformationOrdered By: Rola Valdes on 31-28-6178Ypabgqnrp GFR (CKD-EPI)> 60.0 mL/MinAshtabula County Medical CenterPharmacy Creatinine Clearance (Pyrk957.88[facility] CenterPotassium [Moles/volume] in Serum or PlasmaOrdered By: Rola Valdes on 33-27-3591Voyhxrhgd [Moles/Vol]Potassium [Moles/volume] in Serum or Plasma3.5-5.1FMercy Health St. Elizabeth Boardman HospitalProtein [Mass/volume] in Serum or PlasmaOrdered By: Rola Valdes on 81-53-7053Lthelts [Mass/Vol]Protein [Mass/volume] in Serum or PlasmaLow6.4-8.9[facility] CenterRedraw Vitamin D 25OHon 14-54-7133Bcvxee Vitamin D 25OH18.6 ng/zWNqc61-963Nib [facility] Comment on above:Result Comment: VITAMIN D STATUS 25(OH)VITAMIN D RANGE (ng/mL) Deficient <20 Insufficient 20 to <30 Sufficient 30 to 100 Reference: Ashley MF,Jodee NC, Christina GUEVARA, et al. Evaluation,treatment, and prevention of vitamin D deficiency; an Endocrine Society clinical practice guideline. JCEM. 2010; 96(7):1911-30. PERFORMED BY: [facility] [place] [address] PATHOLOGIST MET[employer] C[employer]ET ASSEMBLER BRAEDEN COLE M.D.Performed By: #### GLULS #### Point of Care testing ,Serum or plasma albumin/globulin mass ratioOrdered By: Rola Valdes on 22-21-6793Wxprxba/Globulin [Mass ratio]Serum or plasma albumin/globulin mass ratioKettering Memorial Hospitalerum or plasma anion gap determination Ordered By: Rola Valdes on 97-33-3293Cypwn gap [Moles/Vol]Serum or plasma anion gap determination6.0-15.0Kettering Memorial Hospitalerum or plasma total cholesterol/high density lipoprotein (HDL) cholesterol mass rat Ordered By: Rola Valdes on 11-59-7691Nqwthbkawxp.total/Cholesterol in HDL [Mass ratio]Serum or plasma total cholesterol/high density lipoprotein (HDL) cholesterol mass rat<5.0Kettering Memorial Hospitalodium [Moles/volume] in Serum or PlasmaOrdered By: Rola Valdes on 62-75-3966Fcfylo [Moles/Vol]Sodium [Moles/volume] in Serum or LopjvsSge700-777MjtyzrqxiAshtabula County Medical CenterTriglyceride [Mass/volume] in Serum or PlasmaOrdered By: Rola Valdes on 55-50-9403Vbzhgwmwznga [Mass/Vol]Triglyceride [Mass/volume] in Serum or PlasmaHigh0-149[facility] CenterComment on above:If the triglyceride result is greater than 400, LDLC and related calculations cannot be calculated and resulted.TRIG ATP III CLASSIFICATIONTRIG less than 150 mg/dL NormalTRIG 150-199 mg/dL BorderlinehighTRIG 200-500 mg/dL High TRIG greater than 500 mg/dL Very highStandard traceable to the Center for Disease Conrtrol and Prevention (CDC) test method.Urea nitrogen [Mass/volume] in Serum or PlasmaOrdered By: Rola Valdes on 65-87-6221Szxo nitrogen [Mass/Vol] Urea nitrogen [Mass/volume] in Serum or Plasma7-25[facility] CenterVitamin B12on 62-29-7512Neetjkdrf (Vitamin B12) [Mass/Vol]632 pg/mLNormal 180-914The [facility] Physician GroupComment on above:Order Comment: Comment add on to previously drawn specimenResult Comment: PERFORMED BY: [facility] [address] [place] [address] PATHOLOGIST MET[employer] CASKET ASSEMBLER BRAEDEN COLE M.D.Performed By: #### GLULS #### Point of Care testing ,Vitamin B12 ser/plasOrdered By: Rola Valdes on 10-97-3697Trqrehdua (Vitamin B12) [Mass/Vol]Vitamin B12 ser/wbeg891-429JacxztdicAshtabula County Medical CenterVitamin D+Metabolites [Mass/volume] in Serum or PlasmaOrdered By: Blue Talbot on 78-62-4830Ggzphtq D+Metabolites [Mass/Vol]Vitamin D+Metabolites [Mass/volume] in Serum or DjfsrvUbk65-901FkcxvccvfAshtabula County Medical CenterComment on above:VITAMIN D STATUS 25(OH)VITAMIN D RANGE (ng/mL) Deficient <20 Insufficient 20 to <73Oildotakwr85 to 100Reference: Ashley MF,Jodee NC, Christina GUEVARA, et al. Evaluation,treatment, and prevention of vitamin D deficiency; an Endocrine Society clinical practice guideline. JCEM. 2010; 96(7):1911-30.A1C with Estimated Average Gluon 11-91-9438Zekznck [Mass/Vol]240 mg/dLNormalThe [facility] Physician GroupComment on above:Result Comment: PERFORMED BY: [facility] [address] [place] [address] PATHOLOGIST METAL CASKET ASSEMBLER BRAEDEN COLE M.D.Performed By: #### GLULS #### Point of Care testing ,HbA1c (Bld) [Mass fraction]10.0 %High4.3-5.6[facility] Comment on above:Result Comment: Increased risk for diabetes: 5.7 - 6.4 diabetes: >6.4 glycemic control for adults with diabetes: <7.0Performed By: #### GLULS #### Point of Care testing ,Blood estimated average glucose determination by estimation from glycated hemoglobinOrdered By: Blue Talbot on 74-36-1012Umhqlhp glucose Estimated from glycated hemoglobin (Bld) [Mass/Vol]Glucose mean value [Mass/volume] in Blood Estimated from glycated hemoglobinAshtabula County Medical CenterGlucose Poct Glucometerson 45-55-0771Tzwrzgs6Hcv6: Cleaned Meter [facility] Physician GroupComment on above:Result Comment: PERFORMED BY: [place] [address] PATHOLOGIST MET[employer] CASKET ASSEMBLER BRAEDEN COLE M.D.Performed By: #### GLULS #### Point of Care testing ,Glucose [Mass/Vol]284 mg/dLBaptist Health Hospital Doral Physician GroupComment on above: Result Comment: Random Glucose Reference Range is dependent on time and content of last meal. Glucose of more than 200 mg/dL in a nonstressed, ambulatory subject supports the diagnosis of Diabetes Mellitus.Performed By: #### GLULS #### Point of Care testing ,Yklpcyf2Ncm8: Cleaned MeterNoUNC Health Physician GroupComment on above: Result Comment: PERFORMED BY: [place] [id number] PATHOLOGIST METAL CASKET ASSEMBLER BRAEDEN COLE M.D.Performed By: #### GLULS #### Point of Care testing ,Glucose [Mass/Vol]368 mg/dLBaptist Health Hospital Doral Physician [facility]alobush[facility] General HospitalComment on above: Result Comment: Random Glucose Reference Range is dependent on time and content of last meal. Glucose of more than 200 mg/dL in a nonstressed, ambulatory subject supports the diagnosis of Diabetes Mellitus.Performed By: #### GLULS #### Point of Care testing ,Zgkcftt8TxqqgpSuvBaptist Health Hospital Doral Physician GroupComment on above:Result Comment: Glu2: WILL NOTIFY DR/RN PERFORMED BY: [place] [address] PATHOLOGIST MET[employer] CASKET ASSEMBLER BREADEN COLE M.D.Performed By: #### URDS, ADDONUAPLUS #### [address] [address] USAGlucose [Mass/Vol]449 mg/dLOff scale highThe [facility] Physician GroupComment on above:Result Comment: Random Glucose Reference Range is dependent on time and content of last meal. Glucose of more than 200 mg/dL in a nonstressed, ambulatory subject supports the diagnosis of Diabetes Mellitus.Performed By: #### URDS, ADDONUAPLUS #### [facility] [address] [place] [address] USAHemoglobin A1c/Hemoglobin.total in BloodOrdered By: Blue Talbot on 64-15-8500WkH5x (Bld) [Mass fraction]Hemoglobin A1c percentageHigh4.3-5.6FMercy Health St. Elizabeth Boardman HospitalComment on above:Increased risk for diabetes: 5.7 - 6.4diabetes: >6.4glycemic control for adults with diabetes: <7.0Lipid Panelon 32-56-8476Hpeesfjexuv [Mass/Vol]267 mg/dLHigh 140-200The [facility]ician [facility] General HospitalComment on above:Result Comment: Chol less than 200 mg/dl low risk Chol 201-239 mg/dl borderline risk Chol 240 mg/dl and greater high riskPerformed By: #### GLULS #### Point of Care testing ,Cholesterol in HDL [Mass/Vol]20 mg/wHEnq07-23Bth [facility] Comment on above:Result Comment: HDL CHOL ATP-III CLASSIFICATION Cardiovascular Risk HDL > or equal to 60 mg/dL LOW HDL < 40 mg/dL HIGHPerformed By: #### GLULS #### Point of Care testing ,Cholesterol.total/Cholesterol in HDL [Mass ratio]13.4 {ratio}Normal<5.0The [facility] HospitalComment on above:Performed By: #### GLULS #### Point of Care testing ,LDL Cholesterol,CalculatedNot performedNormal0-100[facility] Comment on above:Performed By: #### GLULS #### Point of Care testing ,Triglyceride w/Dylsjh4766 mg/dLHigh0-149The [facility] HospitalComment on above:Result Comment: If the triglyceride result is greater than 1293, measured [...] and related calculations cannot be calculated and resulted.Performed By: #### GLULS #### Point of Care testing ,VLDL CHOLESTEROLNot performedNormGainesville VA Medical Center Physician GroupComment on above:Performed By: #### GLULS #### Point of Care testing ,Thyroid Stim Hormone w/Rflxon 48-63-0671Gvtdzia Stim Hormone w/Rflx3.72 u[iU]/mLNormal0.45-5.33The [facility]ician [facility] General HospitalComment on above:Performed By: #### GLULS #### Point of Care testing ,Thyrotropin [Units/volume] in Serum or PlasmaOrdered By: Blue Talbot on 42-28-4211MPT QnThyrotropin [Units/volume] in Serum or Plasma0.45-5.33 [facility] CenterVitamin D 25 Hydroxy Totalon 33-10-4102Tugyypu D 25 Hydroxy YlvoqOsmxzc54-668Eus [facility]ician [facility] General HospitalComment on above: Result Comment: Specimen hemolyzed, redraw requested VITAMIN D STATUS 25(OH)VITAMIN D RANGE (ng/mL) Deficient <20 Insufficient 20 to <30 Sufficient 30 to 100 Reference: Ashley MF,Jodee NC, Christina GUEVARA, et al. Evaluation,treatment, and prevention of vitamin D deficiency; an Endocrine Society clinical practice guideline. JCEM. 2010; 96(7):1911-30. PERFORMED BY: [facility] [address] [place] [address] PATHOLOGIST MET[employer] C[employer]ET ASSEMBLER BRAEDEN COLE M.D.Performed By: #### GLULS #### Point of Care testing ,Acetaminophenon 26-07-7033Heugenonzhlba [Mass/Vol]0.1 ug/mLLow10.0-30.0[facility]ician [facility] General HospitalComment on above:Result Comment: PERFORMED BY: [facility] [address] [place] [address] PATHOLOGIST MET[employer] C[employer]ET ASSEMBLER BRAEDEN COLE M.D.Performed By: #### GLULS #### Point of Care testing ,Acetaminophen [Mass/volume] in Serum or PlasmaOrdered By: Kris Gross 72-89-3959Kkmwteexvkioy [Mass/Vol]Acetaminophen [Mass/volume] in Serum or Plasma Low10.0-30.0[facility] Medical CenterAlanine aminotransferase [Enzymatic activity/volume] in Serum or PlasmaOrdered By: Kris Gross 17-42-3252SLE [Catalytic activity/Vol]Alanine aminotransferase [Enzymatic activity/volume] in Serum or Plasma7-52[facility] CenterAlbumin [Mass/volume] in Serum or Plasma by Bromocresol green (BCG) dye binding methoOrdered By: Kris Gross 66-00-4502Nodtudi BCG dye [Mass/Vol]Albumin [Mass/volume] in Serum or Plasma by Bromocresol green (BCG) dye binding metho3.5-5.7FMercy Health St. Elizabeth Boardman HospitalAlkaline phosphatase [Enzymatic activity/volume] in Serum or PlasmaOrdered By: Kris Gross 73-45-4797RZW [Catalytic activity/Vol]Alkaline phosphatase [Enzymatic activity/volume] in Serum or Oepqia59-044RavawkqfgAshtabula County Medical CenterAspartate aminotransferase [Enzymatic activity/volume] in Serum or PlasmaOrdered By: Kris Gross 70-97-7104RVO [Catalytic activity/Vol]Aspartate aminotransferase [Enzymatic activity/volume] in Serum or Jrimdv43-34TcsqaztioAshtabula County Medical CenterBilirubin.total [Mass/volume] in Serum or PlasmaOrdered By: Kris Gross 57-80-0194Hbrusvfkc [Mass/Vol] Bilirubin.total [Mass/volume] in Serum or Plasma0.3-1.0[facility] CenterCalcium [Mass/volume] in Serum or PlasmaOrdered By: Kris Gross 25-66-5610Embykvn [Mass/Vol]Calcium [Mass/volume] in Serum or Plasma8.6-10.3 [facility] CenterCarbon dioxide, total [Moles/volume] in Serum or PlasmaOrdered By: Kris Gross 43-16-7081SM0 [Moles/Vol]Carbon dioxide, total [Moles/volume] in Serum or Dqvilg61.0-31.0[facility] CenterChloride [Moles/volume] in Serum or PlasmaOrdered By: Kris Gross on 77-97-0308Obgcutay [Moles/Vol]Chloride [Moles/volume] in Serum or Gsyljp54-227 [facility] CenterComprehensive Metabolic Panelon 03-31-2025 Albumin [Mass/Vol]4.5 g/dLNormal3.5-5.7The [facility] Physician GroupComment on above:Performed By: #### GLULS #### Point of Care testing ,Albumin/Globulin [Mass ratio]1.7 {ratio}NormalThe [facility] Comment on above:Performed By: #### GLULS #### Point of Care testing ,ALP [Catalytic activity/Vol]42 U/TZfsqrl31-611Wbb [facility] Comment on above:Result Comment: PERFORMED BY: [facility] [address] [place] [address] PATHOLOGIST [employer]ET ASSEMBLER BRAEDEN COLE M.D.Performed By: #### GLULS #### Point of Care testing ,ALT [Catalytic activity/Vol]15 U/LNormal7-52[facility] Comment on above:Performed By: #### GLULS #### Point of Care testing ,Anion gap [Moles/Vol]12.8 mmol/LNormal6.0-15.0[facility] Comment on above:Performed By: #### GLULS #### Point of Care testing ,AST [Catalytic activity/Vol]18 U/SJzbntp53-63Zvd [facility] Comment on above:Performed By: #### GLULS #### Point of Care testing ,Bilirubin [Mass/Vol]0.6 mg/dLNormal0.3-1.0The [facility] Physician GroupComment on above:Performed By: #### GLULS #### Point of Care testing ,Calcium [Mass/Vol]9.2 mg/dLNormal8.6-10.3The [facility] Physician GroupComment on above:Performed By: #### GLULS #### Point of Care testing ,Chloride [Moles/Vol]101 mmol/XNubbpv87-995Hdb [facility] Physician GroupComment on above:Performed By: #### GLULS #### Point of Care testing ,CO2 [Moles/Vol]23.4 mmol/PQovens86.0-31.0The [facility] Physician GroupComment on above:Performed By: #### GLULS #### Point of Care testing ,Creatinine [Mass/Vol]0.82 mg/dLNormal0.70-1.30The [facility] Comment on above:Performed By: #### GLULS #### Point of Care testing ,GFR/1.73 sq M.predicted MDRD (S/P/Bld) [Vol rate/Area]mL/min/{1.73_m2}NormalThe [facility] Physician GroupComment on above:Performed By: #### GLULS #### Point of Care testing ,Globulin (S) [Mass/Vol]2.6 g/dLNormalThe [facility] Physician GroupComment on above:Performed By: #### GLULS #### Point of Care testing ,Glucose [Mass/Vol]321 mg/dOAvxq83-812Efx [facility] Physician GroupComment on above:Result Comment: Random Glucose Reference Range is dependent on time and content of last meal. Glucose of more than 200 mg/dL in a nonstressed, ambulatory subject supports the diagnosis of Diabetes Mellitus. ADA recommended reference rangePerformed By: #### GLULS #### Point of Care testing ,Potassium [Moles/Vol]4.2 mmol/LNormal3.5-5.1[facility] Comment on above:Result Comment: Hemolysis is present at a level that could interfere with the result. Contact lab if redraw is requiredPerformed By: #### GLULS #### Point of Care testing ,Protein [Mass/Vol]7.1 g/dLNormal6.4-8.9The [facility] Physician GroupComment on above:Performed By: #### GLULS #### Point of Care testing ,Sodium [Moles/Vol]133 mmol/MDrw094-126Yuy [facility] Physician GroupComment on above:Performed By: #### GLULS #### Point of Care testing ,Urea nitrogen [Mass/Vol]19 mg/dLNormal7-25The [facility]ician [facility] HospitalComment on above:Performed By: #### GLULS #### Point of Care testing ,Creatinine [Mass/volume] in Serum or PlasmaOrdered By: Kris Gross on 35-71-8077Waympobkxu [Mass/Vol]Creatinine [Mass/volume] in Serum or Plasma 0.70-1.30[facility] CenterEthanol [Mass/volume] in Serum or PlasmaOrdered By: Kris Gross on 99-35-9492Xhucvmf [Mass/Vol]Ethanol [Mass/volume] in Serum or PlasmaAshtabula County Medical CenterComment on above:Lipemia is present at a level that could interfere with the result.Hemolysis is present at a level that could interfere with the result.Test not performedEthyl Alcohol Profileon 45-06-6637Edsfncl [Mass/Vol]mg/dLNoKettering Memorial HospitalComment on above:Result Comment: Lipemia is present at a level that could interfere with the result. Hemolysis is present at a level that could interfere with the result.Performed By: #### GLULS #### Point of Care testing ,Percent EthanolNot performedNoKettering Memorial HospitalComment on above:Result Comment: PERFORMED BY: [facility] [address] [place] [address] PATHOLOGIST [employer]ET ASSEMBLER BRAEDEN COLE M.D.Performed By: #### GLULS #### Point of Care testing ,Globulin Calc (S) [Mass/Vol]Ordered By: Kris Gross on 55-15-1451Lqdoierl (S) [Mass/Vol]Serum globulin measurement by calculation (mass/volume)[facility] Medical CenterGlucose Glucometer (BldC) [Mass/Vol]Ordered By: Blue Talbot on 35-64-5476Lxylmyo [Mass/Vol]Capillary blood glucose measurement by glucometer (mass/volume)[facility]ula County Medical CenterComment on above:Random Glucose Reference Range is dependent on time and content of last meal. Glucose of more than 200 mg/dL in a nonstressed, ambulatory subject supports the diagnosis of Diabetes Mellitus.Glucose Poct Glucometerson 83-20-4181Gixkgbx [Mass/Vol]292 mg/dLNormalThe Firelands Physician GroupComment on above:Result Comment: Random Glucose Reference Range is dependent on time and content of last meal. Glucose of more than 200 mg/dL in a nonstressed, ambulatory subject supports the diagnosis of Diabetes Mellitus. PERFORMED BY: [facility] [address] [place] [address] PATHOLOGIST METAL CASKET ASSEMBLER BRAEDEN COLE M.D.Performed By: #### GLULS #### Point of Care testing ,Glucose [Mass/volume] in Serum or PlasmaOrdered By: Kris Gross on 03-31-2025 Glucose [Mass/Vol]Glucose [Mass/volume] in Serum or YcaubcQvuc51-487VvkctckhqAshtabula County Medical CenterComment on above:ADA recommended reference rangeRandom Glucose Reference Range is dependent on time and content of last meal. Glucose of more than 200 mg/dL in a nonstressed, ambulatory subject supports the diagnosisof Diabetes Mellitus.No Panel InformationOrdered By: Kris Gross on 97-00-4350Fgrwhphtu GFR (CKD-EPI)> 60.0 mL/MinAshtabula [facility] Creatinine Clearance (ChemN/[facility] HospitalPotassium [Moles/volume] in Serum or PlasmaOrdered By: Kris Gross on 03-31-2025 Potassium [Moles/Vol]Potassium [Moles/volume] in Serum or Plasma3.5-5.1FMercy Health St. Elizabeth Boardman HospitalComment on above:Hemolysis is present at a level that could interfere with the result.Contact lab if redraw is requiredProtein [Mass/volume] in Serum or PlasmaOrdered By: Kris Gross on 87-87-1749Imiisju [Mass/Vol]Protein [Mass/volume] in Serum or Plasma6.4-8.9[facility] Hospitalalicylateon 02-49-7307Vnrezgvmot<1.5Low15.0-30.0The [facility] Hospital Physician GroupComment on above:Result Comment: Patients treated with Sulfasalazine may generate a false high result for Salicylate.Performed By: #### GLULS #### Point of Care testing ,Salicylates [Mass/volume] in Serum or PlasmaOrdered By: Kris Gross on 93-13-7963Lcthpuyjadq [Mass/Vol]Salicylates [Mass/volume] in Serum or PlasmaLow 15.0-30.0[facility] County Medical CenterComment on above:Patients treated with Sulfasalazine may generate a false high result for Salicylate.Serum or plasma albumin/globulin mass ratioOrdered By: Kris Gross on 03-31-2025 Albumin/Globulin [Mass ratio]Serum or plasma albumin/globulin mass ratio [facility] Hospitalerum or plasma anion gap determinationOrdered By: Kris Gross on 46-43-9479Dokzt gap [Moles/Vol]Serum or plasma anion gap determination6.0-15.0[facility] Hospitalodium [Moles/volume] in Serum or PlasmaOrdered By: Kris Gross on 03-83-0551Lsvzmw [Moles/Vol]Sodium [Moles/volume] in Serum or PvywosEtq964-199LybdpdjttAshtabula County Medical CenterUrea nitrogen [Mass/volume] in Serum or PlasmaOrdered By: Kris Gross on 03-31-2025 Urea nitrogen [Mass/Vol]Urea nitrogen [Mass/volume] in Serum or Plasma7-25 [facility] Medical CenterGlucose Glucometer (BldC) [Mass/Vol]Ordered By: Blue Talbot on 77-09-6260Etrmxce [Mass/Vol]Capillary blood glucose measurement by glucometer (mass/volume)[facility] County Medical CenterComment on above:Random Glucose Reference Range is dependent on time and content of last meal. Glucose of more than 200 mg/dL in a nonstressed, ambulatory subject supports the diagnosis of Diabetes Mellitus.Glucose Poct Glucometerson 60-47-9714Lrkoaae [Mass/Vol]142 mg/dLNoUNC Health Physician GroupComment on above:Result Comment: Random Glucose Reference Range is dependent on time and content of last meal. Glucose of more than 200 mg/dL in a nonstressed, ambulatory subject supports the diagnosis of Diabetes Mellitus. PERFORMED BY: [facility] [address] [place] [address] PATHOLOGIST METAL CASKET ASSEMBLER CORINNE RITTER M.D.Performed By: #### GLULS #### Point of Care testing ,Glucose [Mass/Vol]164 mg/dLNoUNC Health Physician GroupComment on above: Result Comment: Random Glucose Reference Range is dependent on time and content of last meal. Glucose of more than 200 mg/dL in a nonstressed, ambulatory subject supports the diagnosis of Diabetes Mellitus. PERFORMED BY: [place] [address] PATHOLOGIST METAL CASKET ASSEMBLER CORINNE RITTER M.D.Performed By: #### MONET, ADDONUAPLUS #### [facility] [address] [place], [place] [id number] USAGlucose Poct Glucometerson 91-18-2155Rrushci [Mass/Vol]250 mg/dLNormGainesville VA Medical Center Physician GroupComment on above:Result Comment: Random Glucose Reference Range is dependent on time and content of last meal. Glucose of more than 200 mg/dL in a nonstressed, ambulatory subject supports the diagnosis of Diabetes Mellitus. PERFORMED BY: [place] [address] PATHOLOGIST METAL CASKET ASSEMBLER CORINNE RITTER M.D.Performed By: #### MONET, ADDONUAPLUS #### [address] [address] USAGlucose [Mass/Vol]219 mg/dLNovictorianoOhioHealth Southeastern Medical Centerbradly [facility] Hospital Physician GroupComment on above:Result Comment: Random Glucose Reference Range is dependent on time and content of last meal. Glucose of more than 200 mg/dL in a nonstressed, ambulatory subject supports the diagnosis of Diabetes Mellitus. PERFORMED BY: [place] [id number] PATHOLOGIST METAL CASKET ASSEMBLER CORINNE RITTER M.D.Performed By: #### GLULS #### Point of Care testing ,Glucose [Mass/Vol]155 mg/dLNoUNC Health Physician GroupComment on above: Result Comment: Random Glucose Reference Range is dependent on time and content of last meal. Glucose of more than 200 mg/dL in a nonstressed, ambulatory subject supports the diagnosis of Diabetes Mellitus. PERFORMED BY: [place] [id number] PATHOLOGIST METAL CASKET ASSEMBLER CORINNE RITTER M.D.Performed By: #### URMANISH, ADDONUAPLUS #### [facility] [address] [place] [address] BIGOfovolx0Bcw5: Cleaned MeterBaptist Health Hospital Doral Physician GroupComment on above:Result Comment: PERFORMED BY: [place] [address] PATHOLOGIST METAL CASKET ASSEMBLER CORINNE RITTER M.D.Performed By: #### MONET, ADDONUAPLUS #### [facility] [address] [place] [address] USAGlucose [Mass/Vol]177 mg/dLNoUNC Health Physician GroupComment on above:Result Comment: Random Glucose Reference Range is dependent on time and content of last meal. Glucose of more than 200 mg/dL in a nonstressed, ambulatory subject supports the diagnosis of Diabetes Mellitus.Performed By: #### MONET, ADDONUAPLUS #### [facility] [address] [place] [address] USANo Panel InformationOrdered By: Blue Talbot on 17-60-3462Kbltpuv Glucose CommentGlu2: cleaned [facility] HospitalGlucose Poct Glucometerson 94-95-0625Lxwxxeg [Mass/Vol]221 mg/dLNoUNC Health Physician GroupComment on above:Result Comment: Random Glucose Reference Range is dependent on time and content of last meal. Glucose of more than 200 mg/dL in a nonstressed, ambulatory subject supports the diagnosis of Diabetes Mellitus. PERFORMED BY: [place] [address] PATHOLOGIST METAL CASKET ASSEMBLER CORINNE RITTER M.D.Performed By: #### URMANISH, ADDONUAPLUS #### [facility] [address] [place] [address] USAGlucose [Mass/Vol]184 mg/dLNoUNC Health Physician GroupComment on above:Result Comment: Random Glucose Reference Range is dependent on time and content of last meal. Glucose of more than 200 mg/dL in a nonstressed, ambulatory subject supports the diagnosis of Diabetes Mellitus. PERFORMED BY: [address] [place] [address] PATHOLOGIST METAL CASKET ASSEMBLER CORINNE RITTER M.D.Performed By: #### GLULS #### Point of Care testing ,Glucose [Mass/Vol]216 mg/dLNoUNC Health Physician GroupComment on above: Result Comment: Random Glucose Reference Range is dependent on time and content of last meal. Glucose of more than 200 mg/dL in a nonstressed, ambulatory subject supports the diagnosis of Diabetes Mellitus. PERFORMED BY: [address] [id number] PATHOLOGIST METAL CASKET ASSEMBLER CORINNE RITTER M.D.Performed By: #### GLULS #### Point of Care testing ,Glucose [Mass/Vol]143 mg/dLNoUNC Health Physician GroupComment on above: Result Comment: Random Glucose Reference Range is dependent on time and content of last meal. Glucose of more than 200 mg/dL in a nonstressed, ambulatory subject supports the diagnosis of Diabetes Mellitus. PERFORMED BY: [address] [place] [address] PATHOLOGIST METAL CASKET ASSEMBLER CORINNE RITTER M.D.Performed By: #### GLULS #### Point of Care testing ,A1C with Estimated Average Gluon 16-86-0019Psznnil [Mass/Vol]212 mg/dLNoUNC Health Physician GroupComment on above:Result Comment: PERFORMED BY: [address] [place] [id number] PATHOLOGIST METAL CASKET ASSEMBLER CORINNE RITTER M.D.Performed By: #### GLULS #### Point of Care testing ,HbA1c (Bld) [Mass fraction]9.0 %High4.3-5.6The [facility] Hospital Physician GroupComment on above:Result Comment: Increased risk for diabetes: 5.7 - 6.4 diabetes: >6.4 glycemic control for adults with diabetes: <7.0Performed By: #### GLULS #### Point of Care testing ,Blood estimated average glucose determination by estimation from glycated hemoglobinOrdered By: Blue Talbot on 64-84-9056Zestuni glucose Estimated from glycated hemoglobin (Bld) [Mass/Vol]Glucose mean value [Mass/volume] in Blood Estimated from glycated hemoglobinAshtabula County Medical CenterCholesterol [Mass/volume] in Serum or PlasmaOrdered By: Blue Talbot on 42-87-2117Fddyomvicml [Mass/Vol]Cholesterol [Mass/volume] in Serum or Dzycwx848-429UcfwbklneAshtabula County Medical CenterComment on above:Chol less than 200 mg/dl low riskChol 201-239 mg/dl borderline riskChol 240 mg/dl and greater high riskCholesterol in HDL [Mass/volume] in Serum or PlasmaOrdered By: Blue Talbot on 77-12-7932Gzwbepgfrlk in HDL [Mass/Vol]Serum or plasma high density lipoprotein (HDL) cholesterol measurement Vis59-31TfjikxnfvAshtabula County Medical CenterComment on above:HDL CHOL ATP-III CLASSIFICATION Cardiovascular RiskHDL > or equal to 60 mg/dL LOWHDL < 40 mg/dL HIGHCholesterol in LDL Calc [Mass/Vol]Ordered By: Blue Talbot on 26-39-1320Xrqngfqgexq in LDL [Mass/Vol]Cholesterol in LDL [Mass/volume] in Serum or Plasma by calculation0-[facility] County Medical CenterComment on above: LDL ATP III CLASSIFICATIONLDL less than 100 mg/dL OptimalLDL 100-129 mg/dL Near or above uzxonluXKJ412-572 mg/dL Borderline highLDL 160-189 mg/dL HighLDL greater than 189 mg/dL Very highCholesterol in LDL [Mass/volume] in Serum or PlasmaOrdered By: Blue Talbot on 66-42-3720Zdzergcqhuy in LDL [Mass/Vol]Cholesterol in LDL [Mass/volume] in Serum or Plasma0-100As[facility] County Medical CenterComment on above:LDL ATP III CLASSIFICATIONLDL less than 100 mg/dL OptimalLDL 100-129 mg/dL Near or above rviruihFMH281-693 mg/dL Borderline highLDL 160-189 mg/dL HighLDL greater than 189 mg/dL Very high Cholesterol in VLDL Calc [Mass/Vol]Ordered By: Blue Talbot on 43-91-6215Epynaffcslj in VLDL [Mass/Vol]Cholesterol in VLDL [Mass/volume] in Serum or Plasma by [facility] Medical CenterComment on above: Test not performedECG 12 lead ECGon 49-98-3391MVH 12 lead ECGKETTERING HEALTH SPRING[facility] [place] [address] [place] [id number] Electrocardiograph Report Signed Patient: Tracie Ramirez MR#: [id number] : 2000 Acct:[id number] Age/Sex: 24 / M ADM Date: 01/05/25 Loc: Room: [address] [place] [address] Type: ADM IN Attending Dr: Blue Talbot [...] Signed By Mónica Rachel MD 0 01/08/25 1633NoUNC Health Physician GroupFree T4 (Free Thyroxine)on 47-30-5533Cwfu T4 [Mass/Vol]0.78 ng/dLNormal0.61-1.12ThPower County Hospital Physician GroupComment on above:Performed By: #### URDS, ADDONUAPLUS #### [address] [address] USAGlucose Poct Glucometerson 91-95-7342Nzzzhsy [Mass/Vol]195 mg/dLNoUNC Health Physician GroupComment on above:Result Comment: Random Glucose Reference Range is dependent on time and content of last meal. Glucose of more than 200 mg/dL in a nonstressed, ambulatory subject supports the diagnosis of Diabetes Mellitus. PERFORMED BY: [place] [address] PATHOLOGIST METAL CASKET ASSEMBLER CORINNE RITTER M.D.Performed By: #### URDS, ADDONUAPLUS #### [place] [address] USAGlucose [Mass/Vol]161 mg/dLBaptist Health Hospital Doral Physician GroupComment on above:Result Comment: Random Glucose Reference Range is dependent on time and content of last meal. Glucose of more than 200 mg/dL in a nonstressed, ambulatory subject supports the diagnosis of Diabetes Mellitus. PERFORMED BY: [place] [address] PATHOLOGIST METAL CASKET ASSEMBLER CORINNE RITTER M.D.Performed By: #### URMANISH, ADDONUAPLUS #### [place] [address] USAGlucose [Mass/Vol]208 mg/dLBaptist Health Hospital Doral Physician GroupComment on above:Result Comment: Random Glucose Reference Range is dependent on time and content of last meal. Glucose of more than 200 mg/dL in a nonstressed, ambulatory subject supports the diagnosis of Diabetes Mellitus. PERFORMED BY: [place] [address] PATHOLOGIST METAL CASKET ASSEMBLER CORINNE RITTER M.D.Performed By: #### URMANISH, ADDONUAPLUS #### [place] [address] QCIWjoacbv3Lae0: Cleaned MeterNoUNC Health Physician GroupComment on above:Result Comment: PERFORMED BY: [place] [address] PATHOLOGIST METAL CASKET ASSEMBLER CORINNE RITTER M.D.Performed By: #### URMANISH, ADDONUAPLUS #### [address] [place] [address] USAGlucose [Mass/Vol]173 mg/dLNormGainesville VA Medical Center Physician GroupComment on above:Result Comment: Random Glucose Reference Range is dependent on time and content of last meal. Glucose of more than 200 mg/dL in a nonstressed, ambulatory subject supports the diagnosis of Diabetes Mellitus.Performed By: #### URMANISH, ADDONUAPLUS #### [facility] [address] [place] [address] USAHemoglobin A1c/Hemoglobin.total in BloodOrdered By: Blue Talbot on 74-11-5410UgA2o (Bld) [Mass fraction]Hemoglobin A1c percentageHigh4.3-5.6FMercy Health St. Elizabeth Boardman HospitalComment on above:Increased risk for diabetes: 5.7 - 6.4diabetes: >6.4glycemic control for adults with diabetes: <7.0LDL Cholesterol Measuredon 53-72-2311AZR Cholesterol Vruwysjc91 mg/dLNormal0-100The [facility] Physician GroupComment on above:Result Comment: LDL ATP III CLASSIFICATION LDL less than 100 mg/dL Optimal LDL 100-129 mg/dL Near or above optimal LDL 130-159 mg/dL Borderline high LDL 160-189 mg/dL High LDL greater than 189 mg/dL Very highPerformed By: #### MONET, ADDONUAPLUS #### [facility] [address] [place] [address] USALipid Panelon 34-52-4871Mrlvzvqtzxq [Mass/Vol]169 mg/dL Xjuvao931-011Xep [facility] Physician GroupComment on above:Result Comment: Chol less than 200 mg/dl low risk Chol 201-239 mg/dl borderline risk Chol 240 mg/dl and greater high riskPerformed By: #### URMANISH, ADDONUAPLUS #### [facility] [address] [place] [address] USACholesterol in HDL [Mass/Vol]20 mg/xTEuw70-27Pcp [facility] Physician GroupComment on above:Result Comment: HDL CHOL ATP-III CLASSIFICATION Cardiovascular Risk HDL > or equal to 60 mg/dL LOW HDL < 40 mg/dL HIGHPerformed By: #### URMANISH, ADDONUAPLUS #### [facility] [address] [place] [address] USACholesterol.total/Cholesterol in HDL [Mass ratio]8.5 {ratio}Normal<5.0The [facility] Physician GroupComment on above:Performed By: #### RENETTA HEALYUAPLUS #### [facility] [address] [place] [address] USALDL Cholesterol,Calculated<99Dvivmu3-960Dry [facility] Physician GroupComment on above:Result Comment: LDL ATP III CLASSIFICATION LDL less than 100 mg/dL Optimal LDL 100-129 mg/dL Near or above optimal LDL 130-159 mg/dL Borderline high LDL 160-189 mg/dL High LDL greater than 189 mg/dL Very highPerformed By: #### MONET, RENETTAUAPLUS #### [facility] [address] [place] [address] USATriglyceride w/Nufoxb197 mg/dLHigh0-149The [facility] Physician GroupComment on above:Result Comment: TRIG ATP III CLASSIFICATION TRIG less than 150 mg/dL Normal TRIG 150-199 mg/dL Borderline high TRIG 200-500 mg/dL High TRIG greater than 500 mg/dL Very high Standard traceable to the Center for Disease Conrtrol and Prevention (CDC) test method. If the triglyceride result is greater than 400, LDLC and related calculations cannot be calculated and resulted.Performed By: #### MONET, ADDROSAURAUAPLUS #### [facility] [address] [place] [address] USAVLDL CHOLESTEROLNot performedNormalThe [facility] Hospital Physician GroupComment on above:Performed By: #### MONET, ADDROSAURAUAPLUS #### [facility] [address] [place] [address] USASerum or plasma total cholesterol/high density lipoprotein (HDL) cholesterol mass ratOrdered By: Blue Talbot on 01-06-2025 Cholesterol.total/Cholesterol in HDL [Mass ratio]Serum or plasma total cholesterol/high density lipoprotein (HDL) cholesterol mass rat<5.0[facility] Medical CenterThyroid Stim Hormone w/Rflxon 58-16-4137Zfyuofb Stim Hormone w/Rflx6.81 u[iU]/mLHigh0.45-5.33The [facility] Center & HospitalComment on above:Performed By: #### MONET, ADDONUAPLUS #### [facility] [address] [place] [id number] USAThyrotropin [Units/volume] in Serum or PlasmaOrdered By: Blue Talbot on 15-07-8985QYS QnThyrotropin [Units/volume] in Serum or PlasmaHigh0.45-5.33[facility] Medical CenterThyroxine (T4) free [Mass/volume] in Serum or PlasmaOrdered By: Blue Talbot on 01-06-2025 Free T4 [Mass/Vol]Thyroxine (T4) free [Mass/volume] in Serum or Plasma0.61-1.12 [facility] Medical CenterTriglyceride [Mass/volume] in Serum or Plasma Ordered By: Blue Talbot on 98-86-1372Whfrpzxdpcmi [Mass/Vol] Triglyceride [Mass/volume] in Serum or PlasmaHigh0-149[facility] CenterComment on above:If the triglyceride result is greater than 400, LDLC and related calculations cannot be calculated and resulted.TRIG ATP III CLASSIFICATIONTRIG less than 150 mg/dL NormalTRIG 150-199 mg/dL Borderline highTRIG 200-500 mg/dL High TRIG greater than 500 mg/dL Very highStandard traceable to the Center for Disease Conrtrol and Prevention (CDC) test method. Vitamin D 25 Hydroxy Totalon 01-33-5130Nhvzzsa D 25 Hydroxy Total17.3 ng/mLLow 30-100The [facility] Physician GroupComment on above:Result Comment: VITAMIN D STATUS 25(OH)VITAMIN D RANGE (ng/mL) Deficient <20 Insufficient 20 to <30 Sufficient 30 to 100 Reference: Ashley MF,Jodee NC, Marques-Willian GUEVARA, et al. Evaluation,treatment, and prevention of vitamin D deficiency; an Endocrine Society clinical practice guideline. JCEM. 2010; 96(7):1911-30. PERFORMED BY: [facility] [address] [place] [id number] PATHOLOGIST METAL CASKET ASSEMBLER CORINNE RITTER M.D.Performed By: #### URDS, ADDONUAPLUS #### [facility] [address] [place] [id number] [facility] MEDICAL CENTERVitamin D+Metabolites [Mass/volume] in Serum or Plasma Ordered By: Blue Talbot on 76-42-2415Skkdtzc D+Metabolites [Mass/Vol] Vitamin D+Metabolites [Mass/volume] in Serum or KhjgnfJdy93-566HeyusepfzAshtabula County Medical CenterComment on above:VITAMIN D STATUS 25(OH)VITAMIN D RANGE (ng/mL) Deficient <20 Insufficient 20 to <25Bynatqvikd92 to 100Reference: Ashley MF,Jodee BOB, Christina GUEVARA, et al. Evaluation,treatment, and prevention of vitamin D deficiency; an Endocrine Society clinical practice guideline. JCEM. 2010; 96(7):1911-30.Alanine aminotransferase [Enzymatic activity/volume] in Serum or PlasmaOrdered By: Guillermina Shetty on 55-71-6918GAZ [Catalytic activity/Vol]Alanine aminotransferase [Enzymatic activity/volume] in Serum or Plasma7-52[facility] Medical CenterAlbumin [Mass/volume] in Serum or Plasma by Bromocresol green (BCG) dye binding methoOrdered By: Guillermina Shetty on 13-42-3902Pzbtptz BCG dye [Mass/Vol]Albumin [Mass/volume] in Serum or Plasma by Bromocresol green (BCG) dye binding metho3.5-5.7FMercy Health St. Elizabeth Boardman HospitalAlkaline phosphatase [Enzymatic activity/volume] in Serum or PlasmaOrdered By: Guillermina Shetty on 51-99-9432VCQ [Catalytic activity/Vol] Alkaline phosphatase [Enzymatic activity/volume] in Serum or Htzzkv09-520 [facility] CenterAmphetamine Screen Ql (U)Ordered By: Guillermina Shetty on 36-68-7790Odhtpvxzqlim Ql (U)Amphetamines screenNegativeAshtabula County Medical CenterAppearance of UrineOrdered By: Guillermina Shetty on 27-55-0610Gtsdyvxrhu (U)Urine appearanceCleCleveland Clinic [facility] Aspartate aminotransferase [Enzymatic activity/volume] in Serum or PlasmaOrdered By: Guillermina Shetty on 40-85-5464ZFN [Catalytic activity/Vol]Aspartate aminotransferase [Enzymatic activity/volume] in Serum or Svgnkz95-29XxrgffqrbAshtabula County Medical CenterBacteria [Presence] in Urine by AutomatedOrdered By: Guillermina Shetty on 95-64-7050Meqmvocd Auto Ql (U)Bacteria [Presence] in Urine by AutomatedNone SeenAshtabula County Medical CenterBarbiturates [Presence] in Urine by Screen methodOrdered By: Guillermina Shetty on 96-65-5362Mxnqcqpbcucm Screen Ql (U)Barbiturates [Presence] in Urine by Screen methodNegativeAshtabula County Medical CenterBasophils Auto (Bld) [#/Vol]Ordered By: Guillermina Shetty on 34-30-4844Gfbeuglub (Bld) [#/Vol]Automated basophil count0.0-0.2FMercy Health St. Elizabeth Boardman HospitalBasophils/100 WBC Auto (Bld)Ordered By: Guillermina Shetty on 28-37-7025Hxxfwchdf/100 WBC (Bld)Automated basophil %.As[facility] Medical CenterBenzodiazepines Screen Ql (U)Ordered By: Guillermina Shetty on 00-08-2631Yulipcvmemntwll Ql (U)Benzodiazepines [Presence] in Urine by Screen methodNegativeAshtabula County Medical CenterBenzoylecgonine [Presence] in Urine by Screen methodOrdered By: Guillermina Shetty on 60-24-0210Jhjlmbxudamffyi Screen Ql (U)Benzoylecgonine [Presence] in Urine by Screen methodNegative [facility] Medical CenterBilirubin Test strip Ql (U)Ordered By: Guillermina Shetty on 82-15-5389Nsarethub Ql (U)Bilirubin.total [Presence] in Urine by Test stripNegativeAshtabula County Medical CenterBilirubin.total [Mass/volume] in Serum or PlasmaOrdered By: Guillermina Shetty on 47-63-8892Uhedwofsf [Mass/Vol] Bilirubin.total [Mass/volume] in Serum or PlasmaHigh0.3-1.0[facility] CenterComment on above:Samples from patients who have taken Naproxen have shown spurious elevation in Total Bilirubin levels. A metabolite of Naproxen, O-desmethylnaproxen, has been shown to interfere with the Iza-Kayleen method for measuring Total Bilirubin.Calcium [Mass/volume] in Serum or PlasmaOrdered By: Guillermina Shetty on 23-16-6463Htpgrho [Mass/Vol] Calcium [Mass/volume] in Serum or Plasma8.6-10.3FMercy Health St. Elizabeth Boardman HospitalCannabinoids [Presence] in Urine by Screen methodOrdered By: Guillermina Shetty on 44-15-8219Dfolvmqtxtoe Screen Ql (U)Cannabinoids [Presence] in Urine by Screen methodHighNegativeAshtabula County Medical CenterComment on above: These are unconfirmed results and should not be used for legal purposes. Drug Cut-Off Concentration: AMPH 1000 ng/mL KATHLEEN 200 ng/mL CARMEN 200 ng/mL COCM 300 ng/mL OP 300 ng/mL PCP 25 ng/mL THC 20 ng/mLCarbon dioxide, total [Moles/volume] in Serum or PlasmaOrdered By: Guillermina Shetty on 30-17-2418PW5 [Moles/Vol] Carbon dioxide, total [Moles/volume] in Serum or Dfaveo37.0-31.0[facility] Medical CenterChloride [Moles/volume] in Serum or PlasmaOrdered By: Guillermina Shetty on 31-86-2796Skfarkgb [Moles/Vol]Chloride [Moles/volume] in Serum or Ryhtsc58-602YyojvvivlAshtabula County Medical CenterColor Auto (U)Ordered By: Guillermina Shetty on 94-34-7606Uruop (U)Color of Urine by AutoYellowAshtabula County Medical CenterComprehensive Metabolic Panelon 91-72-1535Sknawll [Mass/Vol]4.8 g/dLNormal3.5-5.7The [facility] Hospital Physician GroupComment on above: Performed By: #### URMANISH, ADDONUAPLUS #### [facility] [address] [place] [address] USAAlbumin/Globulin [Mass ratio]2.0 {ratio}NormalThe [facility] Hospital Physician GroupComment on above:Performed By: #### MONET, ADDONUAPLUS #### [facility] [address] [place] [address] USAALP [Catalytic activity/Vol]34 U/OVoeywy45-739Mzl [facility] Physician GroupComment on above:Performed By: #### MONET, ADDONUAPLUS #### [facility] [address] [place] [address] USAALT [Catalytic activity/Vol]13 U/LNormal7-52The [facility] Physician GroupComment on above:Performed By: #### MONET, ADDONUAPLUS #### [facility] [address] [place] [address] USAAnion gap [Moles/Vol]10.8 mmol/LNormal6.0-15.0The [facility] Physician GroupComment on above:Performed By: #### MONET, ADDONUAPLUS #### [place] [id number] USAAST [Catalytic activity/Vol]17 U/FCaywjs97-76Swr [facility] Physician GroupComment on above:Performed By: #### MONET, ADDONUAPLUS #### [place] [id number] USABilirubin [Mass/Vol]1.3 mg/dLHigh0.3-1.0The [facility] Physician GroupComment on above:Result Comment: Samples from patients who have taken Naproxen have shown spurious elevation in Total Bilirubin levels. A metabolite of Naproxen, O-desmethylnaproxen, has been shown to interfere with the Jenaleik-Kallief method for measuring Total Bilirubin.Performed By: #### MONET, ADDONUAPLUS #### [place] [id number] USACalcium [Mass/Vol]9.5 mg/dLNormal8.6-10.3The [facility] Physician GroupComment on above:Performed By: #### MONET, ADDONUAPLUS #### [address] [address] USAChloride [Moles/Vol]103 mmol/UMuoowd09-796Pmh [facility] Physician GroupComment on above:Performed By: #### MONET, ADDONUAPLUS #### [address] [address] USACO2 [Moles/Vol]29.4 mmol/KZihqtm42.0-31.0The [facility] Physician GroupComment on above:Performed By: #### MONET, ADDONUAPLUS #### [facility] [address] [place] [address] USACreatinine [Mass/Vol]1.05 mg/dLNormal0.70-1.30The [facility] Physician GroupComment on above:Performed By: #### MONET, ADDONUAPLUS #### [facility] [address] [place] [address] USACreatinine Clr Calc Pkfzsxix252.37NormGainesville VA Medical Center Physician GroupComment on above:Result Comment: PERFORMED BY: [place] [address] PATHOLOGIST [employer]ET ASSEMBLER CORINNE RITTER M.D.Performed By: #### MONET, ADDONUAPLUS #### [place] [address] USAGFR/1.73 sq M.predicted MDRD (S/P/Bld) [Vol rate/Area] mL/min/{1.73_m2}NormalThe [facility] Physician GroupComment on above:Performed By: #### MONET, ADDONUAPLUS #### [facility] [address] [place] [address] USAGlobulin (S) [Mass/Vol]2.4 g/dLBaptist Health Hospital Doral Physician GroupComment on above:Performed By: #### MONET, ADDONUAPLUS #### [place] [address] USAGlucose [Mass/Vol]185 mg/aFOzwn67-374Vfm [facility] Physician GroupComment on above:Result Comment: Random Glucose Reference Range is dependent on time and content of last meal. Glucose of more than 200 mg/dL in a nonstressed, ambulatory subject supports the diagnosis of Diabetes Mellitus. ADA recommended reference rangePerformed By: #### MONET, ADDONUAPLUS #### [facility] [address] [place] [address] USAPotassium [Moles/Vol]4.2 mmol/LNormal3.5-5.1The [facility] Physician GroupComment on above:Performed By: #### MONET, ADDONUAPLUS #### [facility] [address] [place] [address] USAProtein [Mass/Vol]7.2 g/dLNormal6.4-8.9The [facility] Physician GroupComment on above:Performed By: #### URDS, ADDONUAPLUS #### [facility] [address] [place] [address] USASodium [Moles/Vol]139 mmol/ISalkml865-064Iyh [facility] Physician GroupComment on above:Performed By: #### URDS, ADDONUAPLUS #### [facility] [address] [place] [address] USAUrea nitrogen [Mass/Vol]16 mg/dLNormal7-25The [facility] Physician GroupComment on above:Performed By: #### URDS, ADDONUAPLUS #### [place] [address] USACreatinine [Mass/volume] in Serum or PlasmaOrdered By: Guillermina Shetty on 92-27-5804Cemohwryyg [Mass/Vol]Creatinine [Mass/volume] in Serum or Plasma0.70-1.30[facility] Medical CenterDipstick and Microscopicon 71-78-5993Emyoiuppic (U)ClearNormalClearThe [facility] Physician GroupComment on above:Order Comment: Name Collection Type:: Clean-Voided MidstreamPerformed By: #### URDS, ADDONUAPLUS #### [place] [address] USABacteria,UrineNone SeenNormalNone SeenThe [facility] Hospital Physician GroupComment on above:Order Comment: Name Collection Type:: Clean- Voided MidstreamPerformed By: #### URDS, ADDONUAPLUS #### [place] [address] USABilirubin,UrineNegativeNormalNegativeThe [facility] Physician GroupComment on above:Order Comment: Name Collection Type:: Clean- Voided MidstreamPerformed By: #### URDS, ADDONUAPLUS #### [place] [address] USAColor (U)YellowNormalYellowThe [facility] Group Comment on above:Order Comment: Name Collection Type:: Clean-Voided Midstream Performed By: #### URDS, ADDONUAPLUS #### [place] [address] USAGlucose Ql (U)NormalNormalNormalThe [facility] Physician GroupComment on above:Order Comment: Name Collection Type:: Clean-Voided MidstreamPerformed By: #### URDS, ADDONUAPLUS #### [place] [address] USAHyaline Casts,UrineNoneNormal0-8The [facility] Physician GroupComment on above:Order Comment: Name Collection Type:: Clean-Voided MidstreamPerformed By: #### URDS, ADDONUAPLUS #### [place] [address] USAKetones Ql (U)NegativeNormalNegativeThe [facility] Physician GroupComment on above:Order Comment: Name Collection Type:: Clean- Voided MidstreamPerformed By: #### URDS, ADDONUAPLUS #### [place] [address] USALeukocyte esterase Test strip Ql (U)NegativeNormalNegative The [facility] Physician GroupComment on above:Order Comment: Name Collection Type:: Clean-Voided MidstreamPerformed By: #### URDS, ADDONUAPLUS #### [place] [address] USAMucus,Urine2+Critically abnormalThe [facility] Physician GroupComment on above:Order Comment: Name Collection Type:: Clean-Voided MidstreamResult Comment: PERFORMED BY: [place] [address] PATHOLOGIST [employer] ASSEMBLER CORINNE RITTER M.D.Performed By: #### URDS, ADDONUAPLUS #### [place] [address] USANitrite,UrineNegativeNormalNegativeAdventhealth North Pinellas Physician GroupComment on above:Order Comment: Name Collection Type:: Clean-Voided MidstreamPerformed By: #### URDS, ADDONUAPLUS #### [place] [address] USAOccult Blood,UrineNegativeNormalNegativeThe [facility] Physician GroupComment on above:Order Comment: Name Collection Type:: Clean- Voided MidstreamResult Comment: PERFORMED BY: [place] [address] PATHOLOGIST [employer]ET ASSEMBLER CORINNE RITTER M.D.Performed By: #### URDS, ADDONUAPLUS #### [place] [address] USApH (U)6.0 [pH]Normal5.0-9.0The [facility] Comment on above:Order Comment: Name Collection Type:: Clean-Voided Midstream Performed By: #### URDS, ADDONUAPLUS #### [place] [address] USAProtein (U) [Mass/Vol]20 mg/dLHighNegativeThe [facility] Physician GroupComment on above:Order Comment: Name Collection Type:: Clean- Voided MidstreamPerformed By: #### URDS, ADDONUAPLUS #### [place] [address] USARBC,Tootb2-8Krrhpt8-1Pxv [facility] Physician GroupComment on above:Order Comment: Name Collection Type:: Clean-Voided MidstreamPerformed By: #### URDS, ADDONUAPLUS #### [place] [address] USASpecificy [place],Urine1.074Miqrox7.001-1.030The [facility] Physician GroupComment on above:Order Comment: Name Collection Type:: Clean- Voided MidstreamPerformed By: #### URDS, ADDONUAPLUS #### [place] [address] USASquamous Epithelial Cell,Vdrot7-1Xiktzc0-8Hdn [facility] Physician GroupComment on above:Order Comment: Name Collection Type:: Clean- Voided MidstreamPerformed By: #### URDS, ADDONUAPLUS #### [place] [address] USAUrobilinogen,UrineNormalNormalNormalThe [facility] Physician GroupComment on above:Order Comment: Name Collection Type:: Clean- Voided MidstreamPerformed By: #### URDS, ADDONUAPLUS #### [place] [address] USAWBC,Bdcgc3-8Uifzov3-6Bmu [facility] Physician GroupComment on above:Order Comment: Name Collection Type:: Clean-Voided MidstreamPerformed By: #### URDS, ADDONUAPLUS #### [place] [address] USADrug Screen,Urineon 20-01-1836Vwgbwytlmsg Screen,Urine NegativeNormalNegativeThe [facility] Physician GroupComment on above:Performed By: #### URDS, ADDONUAPLUS #### [place] [address] USABarbiturate Screen,UrineNegativeNormalNegativeThe [facility] Physician GroupComment on above:Performed By: #### URDS, ADDONUAPLUS #### [place] [address] USABenzodiazepines Screen,UrineNegativeNormalNegativeThe [facility] Physician GroupComment on above:Performed By: #### URDS, ADDONUAPLUS #### [place] [address] USACannabinoid Screen,UrinePositiveHighNegativeThe [facility] Physician GroupComment on above:Result Comment: These are unconfirmed results and should not be used for legal purposes. Drug Cut-Off Concentration: AMPH 1000 ng/mL KATHLEEN 200 ng/mL CARMEN 200 ng/mL COCM 300 ng/mL OP 300 ng/mL PCP 25 ng/mL THC 20 ng/mL PERFORMED BY: [place] [address] PATHOLOGIST [employer] ASSEMBLER CORINNE RITTER M.D.Performed By: #### URDS, ADDONUAPLUS #### [facility] [address] [place] [address] USACocaine Screen,UrineNegativeNormalNegativeThe [facility] Physician GroupComment on above:Performed By: #### URDS, ADDONUAPLUS #### [facility] [address] [place] [address] USAOpiate Screen,UrineNegativeNormalNegativeThe [facility] Physician GroupComment on above:Performed By: #### URDS, ADDONUAPLUS #### [facility] [address] [place] [address] USAPhencyclidine Screen,UrineNegativeNormalNegativeThe [facility] Physician GroupComment on above:Performed By: #### URDS, ADDONUAPLUS #### [facility] [address] [place] [address] USAEosinophils Auto (Bld) [#/Vol]Ordered By: Guillermina Shetty on 62-57-7395Lbwwezldpjj (Bld) [#/Vol]Automated eosinophil count0.0-0.45 [facility] CenterEosinophils/100 WBC Auto (Bld)Ordered By: Guillermina Shetty on 43-15-1575Qkebsefrtcb/100 WBC (Bld)Automated eosinophil %. [facility] Medical CenterEpithelial cells.squamous [#/area] in Urine sediment by Automated countOrdered By: Guillermina Shetty on 72-22-3768Wkmvcnnlca cells.squamous Auto (Urine sed) [#/Area]Epithelial cells.squamous [#/area] in Urine sediment by Automated count0-2FMercy Health St. Elizabeth Boardman HospitalErythrocyte distribution width Auto (RBC) [Ratio]Ordered By: Guillermina Shetty on 01-05-2025 Erythrocyte distribution width (RBC) [Ratio]Erythrocyte distribution width [Ratio] by Automated count12.0-14.8[facility] CenterErythrocyte morphology finding [Identifier] in BloodOrdered By: Guillermina Shetty on 79-38-2740HYL morphology finding Nom (Bld)RBC morphologyNormalAshtabula County Medical CenterErythrocytes [#/area] in Urine sediment by Automated countOrdered By: Guillermina Shetty on 66-80-0089IMP Auto (Urine sed) [#/Area]Erythrocytes [#/area] in Urine sediment by Automated count0-4FMercy Health St. Elizabeth Boardman HospitalEthanol [Mass/volume] in Serum or PlasmaOrdered By: Guillermina Shetty on 13-41-1451Piyzqse [Mass/Vol]Ethanol [Mass/volume] in Serum or PlasmaAshtabula County Medical CenterComment on above:Test not performedEthyl Alcohol Profile on 00-00-3350Oyfgwtn [Mass/Vol]mg/dLNoUNC Health Physician Yalobusha General HospitalComment on above:Performed By: #### URDS, ADDONUAPLUS #### [facility] [address] [place] [address] USAPercent EthanolNot performedNoKettering Memorial HospitalComment on above:Result Comment: PERFORMED BY: [place] [address] PATHOLOGIST MET[employer] C[employer]ET ASSEMBLER CORINNE RITTER M.D.Performed By: #### MONET, ADDONUAPLUS #### [facility] [address] [place] [address] USAGlobulin Calc (S) [Mass/Vol]Ordered By: Guillermina Shetty on 68-03-8719Izlvifhy (S) [Mass/Vol]Serum globulin measurement by calculation (mass/volume)[facility] Medical CenterGlucose Glucometer (BldC) [Mass/Vol]Ordered By: Guillermina Shetty on 04-60-9342Fcbdsdx [Mass/Vol]Capillary blood glucose measurement by glucometer (mass/volume)[facility] Medical CenterComment on above:Random Glucose Reference Range is dependent on time and content of last meal. Glucose of more than 200 mg/dL in a nonstressed, ambulatory subject supports the diagnosis of Diabetes Mellitus.Glucose Poct Glucometerson 01-29-1359Ssoptay4Zcq0: Cleaned MeterNoKettering Memorial HospitalComment on above:Result Comment: PERFORMED BY: [address] [address] PATHOLOGIST MET[employer] CASKET ASSEMBLER CORINNE RITTER M.D.Performed By: #### MONET, ADDONUAPLUS #### [facility] [address] [place] [address] USAGlucose [Mass/Vol]185 mg/dLNoUNC Health Physician GroupComment on above:Result Comment: Random Glucose Reference Range is dependent on time and content of last meal. Glucose of more than 200 mg/dL in a nonstressed, ambulatory subject supports the diagnosis of Diabetes Mellitus.Performed By: #### URMANISH, ADDONUAPLUS #### [facility] [address] [place] [address] USAGlucose [Mass/Vol]143 mg/dLNoUNC Health Physician GroupComment on above:Result Comment: Random Glucose Reference Range is dependent on time and content of last meal. Glucose of more than 200 mg/dL in a nonstressed, ambulatory subject supports the diagnosis of Diabetes Mellitus. PERFORMED BY: [place] [address] PATHOLOGIST METAL CASKET ASSEMBLER CORINNE RITTER M.D.Performed By: #### MONET, ADDONUAPLUS #### [facility] [address] [place] [id number] USAGlucose [Mass/volume] in Serum or PlasmaOrdered By: Guillermina Shetty on 03-38-8351Pkilpwa [Mass/Vol]Glucose [Mass/volume] in Serum or RsvudgRzaj44-994EeantbjrxAshtabula County Medical CenterComment on above:ADA recommended reference rangeRandom Glucose Reference Range is dependent on time and content of last meal. Glucose of more than 200 mg/dL in a nonstressed, ambulatory subject supports the diagnosisof Diabetes Mellitus.Glucose [Mass/volume] in Urine by Test stripOrdered By: Guillermina Shetty on 01-05-2025 Glucose Test strip (U) [Mass/Vol]Glucose [Mass/volume] in Urine by Test strip NormalAshtabula County Medical CenterHematocrit Auto (Bld) [Volume fraction] Ordered By: Guillermina Shetty on 85-13-9787Ryfnxmdbcx (Bld) [Volume fraction] Hematocrit [Volume Fraction] of Blood by Automated count38.8-50.0[facility] Medical CenterHemoglobin Test strip Ql (U)Ordered By: Guillermina Shetty on 66-00-4999Mvdvzwzoaa Ql (U)Hemoglobin [Presence] in Urine by Test strip NegativeAshtabula County Medical CenterHemoglobin [Mass/volume] in Blood Ordered By: Guillermina Shetty on 80-79-9491Pgerpacgug (Bld) [Mass/Vol]Hemoglobin [Mass/volume] in Blood13.0-17.0[facility] Medical CenterHyaline casts [#/area] in Urine sediment by Automated countOrdered By: Guillermina Shetty on 08-01-7342Nbdeagg casts Auto (Urine sed) [#/Area]Hyaline casts [#/area] in Urine sediment by Automated count0-8[facility] Medical CenterKetones Test strip Ql (U)Ordered By: Guillermina Shetty on 41-88-8231Sylpavj Ql (U)Ketones [Presence] in Urine by Test stripNegativeAshtabula County Medical Center Leukocyte esterase [Presence] in Urine by Test stripOrdered By: Guillermina Shetty on 82-34-8795Tywcvgkzh esterase Test strip Ql (U)Leukocyte esterase [Presence] in Urine by Test stripNegativeAshtabula County Medical CenterLeukocytes [#/area] in Urine sediment by Automated countOrdered By: Guillermina Shetty on 51-64-1441DZX Auto (Urine sed) [#/Area]Leukocytes [#/area] in Urine sediment by Automated count0-4FMercy Health St. Elizabeth Boardman HospitalLeukocytes [#/volume] corrected for nucleated erythrocytes in Blood by Automated counOrdered By: Guillermina Shetty on 92-95-1659OCV corrected for nucl RBC Auto (Bld) [#/Vol] Leukocytes [#/volume] corrected for nucleated erythrocytes in Blood by Automated coun4.1-10.5FMercy Health St. Elizabeth Boardman HospitalLymphocytes Auto (Bld) [#/Vol] Ordered By: Guillermina Shetty on 62-23-4675Zfvtgkhuqml (Bld) [#/Vol]Lymphocytes [#/volume] in Blood by Automated count1.00-4.8[facility] Lymphocytes/100 WBC Auto (Bld)Ordered By: Guillermina Shetty on 01-05-2025 Lymphocytes/100 WBC (Bld)Lymphocytes/100 leukocytes in Blood by Automated count. [facility] Medical CenterMCH Auto (RBC) [Entitic mass]Ordered By: Guillermina Shetty on 38-55-6037HSB (RBC) [Entitic mass]MCH [Entitic mass] by Automated count27.5-35.2FOhioHealth Hardin Memorial HospitalHC Auto (RBC) [Mass/Vol]Ordered By: Guillermina Shetty on 04-19-6594MBBU (RBC) [Mass/Vol]MCHC [Mass/volume] by Automated count32.5-35.6FMercy Health St. Elizabeth Boardman HospitalMCV Auto (RBC) [Entitic vol]Ordered By: Guillermina Shetty on 38-18-9992EHE (RBC) [Entitic vol]MCV [Entitic volume] by Automated count83.5-101[facility] Medical CenterMonocyte distribution width [Entitic volume] in Blood by Automated Ordered By: Guillermina Shetty on 04-06-2479Eigyzzzb distribution width Auto (Bld) [Entitic vol]Monocyte distribution width [Entitic volume] in Blood by Automated 0.00-20.00[facility] CenterMonocytes Auto (Bld) [#/Vol]Ordered By: Guillermina Shetty on 89-23-5867Phwcqhtmm (Bld) [#/Vol]Automated blood monocyte count0.0-0.8[facility] CenterMonocytes/100 WBC Auto (Bld) Ordered By: Guillermina Shetty on 44-78-6724Fjdeorxhj/100 WBC (Bld)Automated monocyte %.[facility] CenterMucus [Presence] in Urine by AutomatedOrdered By: Guillermina Shetty on 99-83-0911Bhbvf Auto Ql (U)Mucus [Presence] in Urine by AutomatedAbnormalAshtabula County Medical Center Neutrophils Auto (Bld) [#/Vol]Ordered By: Guillermina Shetty on 01-05-2025 Neutrophils (Bld) [#/Vol]Neutrophils [#/volume] in Blood by Automated count 1.8-7.7FMercy Health St. Elizabeth Boardman HospitalNeutrophils/100 WBC Auto (Bld)Ordered By: Guillermina Shetty on 18-90-8774Vvrxlarhynd/100 WBC (Bld)Automated neutrophil % .[facility] Medical CenterNitrite Test strip Ql (U)Ordered By: Guillermina Shetty on 35-80-7099Rhvxkvd Ql (U)Nitrite [Presence] in Urine by Test strip NegativeAshtabula County Medical CenterNo Panel InformationOrdered By: Guillermina Shetty on 36-31-5129Odrichbwh GFR (CKD-EPI)> 60.0 mL/MinAshtabula County Medical CenterPharmacy Creatinine Clearance (Sphu364.37[facility] CenterNucleated erythrocytes [Presence] in Blood by Automated countOrdered By: Guillermina Shetty on 47-64-3885Vmkgrzanw RBC Auto Ql (Bld) Nucleated erythrocytes [Presence] in Blood by Automated count0-0.5FMercy Health St. Elizabeth Boardman HospitalOpiates [Presence] in Urine by Screen methodOrdered By: Guillermina Shetty on 83-30-8437Ryzauye Screen Ql (U)Opiates [Presence] in Urine by Screen methodNegativeAshtabula County Medical CenterPhencyclidine Screen Ql (U)Ordered By: Guillermina Shetty on 72-89-6891Uhnvvodgpplee Ql (U)Phencyclidine [Presence] in Urine by Screen methodNegativeAshtabula County Medical Center Platelet adequacy [Presence] in Blood by Light microscopyOrdered By: Guillermina Shetty on 30-29-1654Oxvetmdar LM Ql (Bld)Platelet adequacy [Presence] in Blood by Light microscopyNormalAshtabula County Medical CenterPlatelet mean volume Auto (Bld) [Entitic vol]Ordered By: Guillermina Shetty on 20-97-9403Qwthkeuc mean volume (Bld) [Entitic vol]Platelet mean volume [Entitic volume] in Blood by Automated count6.6-10.1FMercy Health St. Elizabeth Boardman HospitalPlatelet morphology finding [Identifier] in BloodOrdered By: Guillermina Shetty on 67-33-1747Xklmcsin morphology finding Nom (Bld)Platelet morphology finding [Identifier] in Blood NormalAshtabula County Medical CenterPlatelets Auto (Bld) [#/Vol]Ordered By: Guillermina Shetty on 72-70-1700Gpzpbajpy (Bld) [#/Vol]Platelets [#/volume] in Blood by Automated zufvk250-047RodjvecleAshtabula County Medical CenterPotassium [Moles/volume] in Serum or PlasmaOrdered By: Guillermina Shetty on 01-05-2025 Potassium [Moles/Vol]Potassium [Moles/volume] in Serum or Plasma3.5-5.1FMercy Health St. Elizabeth Boardman HospitalProtein Test strip (U) [Mass/Vol]Ordered By: Guillermina Shetty on 05-53-5818Bbgiths (U) [Mass/Vol]Protein [Mass/volume] in Urine by Test stripHighNegativeAshtabula County Medical CenterProtein [Mass/volume] in Serum or PlasmaOrdered By: Guillermina Shetty on 21-30-1996Kzcjccy [Mass/Vol] Protein [Mass/volume] in Serum or Plasma6.4-8.9[facility] RBC Auto (Bld) [#/Vol]Ordered By: Guillermina Shetty on 55-64-4652MGF (Bld) [#/Vol] Erythrocytes [#/volume] in Blood by Automated count3.90-5.60K[facility] Memorial Hospitalcan and CBCon 05-75-6306Wvptzjalu (Bld) [#/Vol]0.0 10*3/uLNormal 0.0-0.2The [facility] Physician GroupComment on above:Performed By: #### URDS, ADDONUAPLUS #### [facility] [address] [place] [address] USABasophils/100 WBC (Bld)0.6 %Normal.The [facility] Physician GroupComment on above:Performed By: #### URDS, ADDONUAPLUS #### [facility] [address] [place] [address] USAEosinophils (Bld) [#/Vol]0.1 10*3/uLNormal0.0-0.45The [facility] Physician GroupComment on above:Performed By: #### URDS, ADDONUAPLUS #### [facility] [address] [place] [address] USAEosinophils/100 WBC (Bld)0.8 %Normal.The [facility] Physician GroupComment on above:Performed By: #### URDS, ADDONUAPLUS #### [facility] [address] [place] [address] USAErythrocyte distribution width (RBC) [Ratio]13.9 %Normal 12.0-14.8The [facility] Physician GroupComment on above:Performed By: #### URDS, ADDONUAPLUS #### [facility] [address] [place] [address] USAHematocrit (Bld) [Volume fraction]47.3 %Gmzqmv54.8-50.0The [facility] Physician GroupComment on above:Performed By: #### URDS, ADDONUAPLUS #### [facility] [address] [place] [address] USAHemoglobin (Bld) [Mass/Vol]16.8 g/nFQpfhlo76.0-17.0The [facility] Physician GroupComment on above:Performed By: #### URDS, ADDONUAPLUS #### [place] [address] USALymphocytes (Bld) [#/Vol]1.9 10*3/uLNormal1.00-4.8The [facility] Physician GroupComment on above:Performed By: #### URDS, ADDONUAPLUS #### [place] [address] USALymphocytes/100 WBC (Bld)24.7 %Normal.The [facility] Physician GroupComment on above:Performed By: #### URDS, ADDONUAPLUS #### [facility] [address] [place] [address] USAMCH (RBC) [Entitic mass]31.2 haIocpvr65.5-35.2The [facility] Physician GroupComment on above:Performed By: #### URDS, ADDONUAPLUS #### [facility] [address] [place] [address] USAMCV (RBC) [Entitic vol]87.7 lXLjbhet49.5-101The [facility] Physician GroupComment on above:Performed By: #### URDS, ADDONUAPLUS #### [facility] [address] [place] [address] USAMean Corpuscular HGB Conc35.6 g/aCDewlcr75.5-35.6The [facility] Physician GroupComment on above:Performed By: #### URMANISH, ADDONUAPLUS #### [place] [address] USAMonocytes (Bld) [#/Vol]0.5 10*3/uLNormal0.0-0.8The [facility] Physician GroupComment on above:Performed By: #### URMANISH, ADDONUAPLUS #### [place] [address] USAMonocytes/100 WBC (Bld)16.04 %Normal0.00-20.00The [facility] Physician GroupComment on above:Performed By: #### MONET, ADDONUAPLUS #### [place] [address] USAMonocytes/100 WBC (Bld)5.7 %Normal.The [facility] Physician GroupComment on above:Performed By: #### MONET, ADDONUAPLUS #### [place] [address] USANeutrophils (Bld) [#/Vol]5.4 10*3/uLNormal1.8-7.7The [facility] Physician GroupComment on above:Performed By: #### MONET, ADDONUAPLUS #### [place] [address] USANeutrophils/100 WBC (Bld)68.2 %Normal.[facility] Physician GroupComment on above:Performed By: #### MONET, ADDONUAPLUS #### [place] [address] USANRBC%0.2 /100{WBC}Normal0-0.5[facility] Comment on above:Performed By: #### MONET, ADDONUAPLUS #### [place] [address] USAPlatelet EstimateNormalNormalNormalThe [facility] Physician GroupComment on above:Performed By: #### MONET, ADDONUAPLUS #### [address] [place] [address] USAPlatelet mean volume (Bld) [Entitic vol]8.1 fLNormal 6.6-10.1The [facility] Physician GroupComment on above:Performed By: #### MONET ADDONUAPLUS #### [place] [address] USAPlatelet MorphologyNormalNormalNormalThe [facility] Physician GroupComment on above:Result Comment: PERFORMED BY: [place] [address] PATHOLOGIST METAL CASKET ASSEMBLER CORINNE RITTER M.D.Performed By: #### MONET ADDONUAPLUS #### [place] [address] USAPlatelets (Bld) [#/Vol]159 10*3/tZNfdcwj152-553Ihx [facility] Physician GroupComment on above:Performed By: #### MONET, ADDONUAPLUS #### [place] [address] USARBC (Bld) [#/Vol]5.40 10*6/uLNormal3.90-5.60The [facility] Physician GroupComment on above:Performed By: #### MONET ADDONUAPLUS #### [place] [address] USARBC morphology finding Nom (Bld)NormalNormalNormOhioHealth Southeastern Medical Centere [facility] Physician GroupComment on above:Performed By: #### MONET, ADDONUAPLUS #### [place] [address] USAWBC (Bld) [#/Vol]7.9 10*3/uLNormal4.1-10.5The [facility] Physician GroupComment on above:Performed By: #### MONET ADDONUAPLUS #### [place] [address] USASerum or plasma albumin/globulin mass ratioOrdered By: Guillermina Shetty on 55-95-6711Synspkm/Globulin [Mass ratio]Serum or plasma albumin/globulin mass ratioFirelands Regional Medical CenterSerum or plasma anion gap determinationOrdered By: Guillermina Shetty on 76-30-5673Klbjy gap [Moles/Vol]Serum or plasma anion gap determination6.0-15.0[facility] Hospitalodium [Moles/volume] in Serum or PlasmaOrdered By: Guillermina Shetty on 06-60-5374Adyonh [Moles/Vol]Sodium [Moles/volume] in Serum or Plasma 136-145[facility] Hospitalpecific gravity Test strip (U) [Rel density]Ordered By: Guillermina Shetty on 14-68-3859Czqhkvci gravity (U) [Rel density]Specific gravity of Urine by Test strip1.001-1.030[facility] Medical CenterUrea nitrogen [Mass/volume] in Serum or PlasmaOrdered By: Guillermina Shetty on 39-49-2187Hxaf nitrogen [Mass/Vol]Urea nitrogen [Mass/volume] in Serum or Plasma7-25[facility] Medical CenterUrobilinogen Test strip (U) [Mass/Vol]Ordered By: Guillermina Shetty on 17-58-0364Invjuziirgih (U) [Mass/Vol] Urobilinogen [Mass/volume] in Urine by Test stripNoDelaware County HospitalWBC Auto (Bld) [#/Vol]Ordered By: Guillermina Shetty on 85-72-2742CCM (Bld) [#/Vol]Leukocytes [#/volume] in Blood by Automated count4.1-10.5FMercy Health St. Elizabeth Boardman HospitalpH Test strip (U)Ordered By: Guillermina Shetty on 59-35-4087hH (U)pH of Urine by Test strip5.0-9.0[facility] CenterCapillary blood glucose measurement by glucometer (mass/volume)Ordered By: Blue Talbot on 58-15-1655Zxpqsjp [Mass/Vol]329 mg/dLNoDelaware County HospitalComment on above:Random Glucose Reference Range is dependent on time and content of last meal. Glucose of more than 200 mg/dL in a nonstressed, ambulatory subject supports the diagnosis of Diabetes Mellitus. Result Comment: Random Glucose Reference Range is dependent on time and content of last meal. Glucose of more than 200 mg/dL in a nonstressed, ambulatory subject supports the diagnosis of Diabetes Mellitus. PERFORMED BY: [place] [id number] PATHOLOGIST METAL CASKET ASSEMBLER BEKAH FREED M.D.Performed By: #### GLULS #### Point of Care testing ,Glucose Poct Glucometerson 10-05-3690Hddrhfi4Puh2: Cleaned MeterBaptist Health Hospital Doral Physician GroupComment on above:Result Comment: PERFORMED BY: [place] [address] PATHOLOGIST MET[employer] CASKET ASSEMBLER BEKAH FREED M.D.Performed By: #### GLULS #### Point of Care testing ,Glucose [Mass/Vol]336 mg/dLBaptist Health Hospital Doral Physician GroupComment on above: Result Comment: Random Glucose Reference Range is dependent on time and content of last meal. Glucose of more than 200 mg/dL in a nonstressed, ambulatory subject supports the diagnosis of Diabetes Mellitus.Performed By: #### GLULS #### Point of Care testing ,Glucose [Mass/Vol]261 mg/dLBaptist Health Hospital Doral Physician GroupComment on above: Result Comment: Random Glucose Reference Range is dependent on time and content of last meal. Glucose of more than 200 mg/dL in a nonstressed, ambulatory subject supports the diagnosis of Diabetes Mellitus. PERFORMED BY: [address] [address] PATHOLOGIST METAL CASKET ASSEMBLER BEKAH FREED M.D.Performed By: #### GLULS #### Point of Care testing ,No Panel InformationOrdered By: Blue Talbot on 55-04-7043Lbprpyj Glucose CommentGlu2: cleaned [facility] HospitalGlucose Poct Glucometerson 29-58-1380Smobujs9Mso9: Cleaned [facility] Physician GroupComment on above:Result Comment: PERFORMED BY: [address] [address] PATHOLOGIST MET[employer] CASKET ASSEMBLER BEKAH FREED M.D.Performed By: #### GLULS #### Point of Care testing ,Glucose [Mass/Vol]337 mg/dLBaptist Health Hospital Doral Physician GroupComment on above: Result Comment: Random Glucose Reference Range is dependent on time and content of last meal. Glucose of more than 200 mg/dL in a nonstressed, ambulatory subject supports the diagnosis of Diabetes Mellitus.Performed By: #### GLULS #### Point of Care testing ,Crymfly1Iej1: Cleaned MeterBaptist Health Hospital Doral Physician GroupComment on above: Result Comment: PERFORMED BY: [place] [address] PATHOLOGIST MET[employer] CASKET ASSEMBLER BEKAH FREED M.D.Performed By: #### GLULS #### Point of Care testing ,Glucose [Mass/Vol]307 mg/dLBaptist Health Hospital Doral Physician GroupComment on above: Result Comment: Random Glucose Reference Range is dependent on time and content of last meal. Glucose of more than 200 mg/dL in a nonstressed, ambulatory subject supports the diagnosis of Diabetes Mellitus.Performed By: #### GLULS #### Point of Care testing ,Mqvtmfl1Iwn7: Cleaned MeterBaptist Health Hospital Doral Physician GroupComment on above: Result Comment: PERFORMED BY: [place] [address] PATHOLOGIST METAL CASKET ASSEMBLER BEKAH FREED M.D.Performed By: #### GLULS #### Point of Care testing ,Glucose [Mass/Vol]385 mg/dLBaptist Health Hospital Doral Physician GroupComment on above: Result Comment: Random Glucose Reference Range is dependent on time and content of last meal. Glucose of more than 200 mg/dL in a nonstressed, ambulatory subject supports the diagnosis of Diabetes Mellitus.Performed By: #### GLULS #### Point of Care testing ,Wjgksya4Dlh4: Cleaned MeterBaptist Health Hospital Doral Physician GroupComment on above: Result Comment: PERFORMED BY: [place] [address] PATHOLOGIST METAL CASKET ASSEMBLER BEKAH FREED M.D.Performed By: #### GLULS #### Point of Care testing ,Glucose [Mass/Vol]232 mg/dLBaptist Health Hospital Doral Physician GroupComment on above: Result Comment: Random Glucose Reference Range is dependent on time and content of last meal. Glucose of more than 200 mg/dL in a nonstressed, ambulatory subject supports the diagnosis of Diabetes Mellitus.Performed By: #### GLULS #### Point of Care testing ,XR lumbar spine 2-3V*on 41-54-6863JB lumbar spine 2-3V*[facility] [place] [address] [place] [address] XRay Report Signed Patient: Tracie Ramirez MR#: [id number] : 2000 Acct:[id number] Age/Sex: 24 / M ADM Date: 08/01/24 Loc: Room: [address] [place] [address] Type: ADM IN Attending Dr: Blue Talbot [...] 8:36 PM Dictation Location: RADIO-PC-13 Transcribed By: DYLAN 08/03/242035 Dictated By: Tristan Bruno II, MD 08/03/242032 Signed By: 08/03/242035[facility] Physician GroupXR thoracic spine 2Von 85-52-7843YP thoracic spine 2VK[facility] [place] [address] [place] [address] XRay Report Signed Patient: Tracie Ramirez MR#: [id number] : 2000 Acct:[id number] Age/Sex: 24 / M ADM Date: 08/01/24 Loc: Room: [address] [place] [address] Type: ADM IN Attending Dr: Blue Talbot [...] 8:33 PM Dictation Location: RADIO-PC-13 Transcribed By: DYLAN 08/03/242032 Dictated By: Tristan Bruno II, MD 08/03/242030 Signed By: 08/03/242032[facility] Physician GroupCholesterol [Mass/volume] in Serum or PlasmaOrdered By: Blue Talbot on 63-26-9499Unyejispjrk [Mass/Vol]149 mg/iRZivudz635-232RgafbdzahAshtabula County Medical CenterComment on above:Chol less than 200 mg/dl low riskChol 201-239 mg/dl borderline riskChol 240 mg/dl and greater high riskResult Comment: Chol less than 200 mg/dl low risk Chol 201-239 mg/dl borderline risk Chol 240 mg/dl and greater high riskPerformed By: #### GLULS #### Point of Care testing ,Cholesterol in LDL Calc [Mass/Vol]Ordered By: Blue Talbot on 73-92-5633Wxnplrvblco in LDL [Mass/Vol][facility] Comment on above:Test not performedCholesterol in LDL [Mass/volume] in Serum or PlasmaOrdered By: Blue Talbot on 88-57-8358Bbmigdbezqk in LDL [Mass/Vol]58 mg/dL0-100[facility] Medical CenterComment on above:LDL ATP III CLASSIFICATIONLDL less than 100 mg/dL OptimalLDL 100-129 mg/dL Near or above ibvvynsNON393-189 mg/dL Borderline highLDL 160-189 mg/dL HighLDL greater than 189 mg/dL Very highCholesterol in VLDL Calc [Mass/Vol]Ordered By: Blue Talbot on 44-35-3433Vylyfsiwsbf in VLDL [Mass/Vol]113 mg/dL [facility] CenterGlucose Poct Glucometerson 21-09-5896Tylegcg [Mass/Vol]353 mg/dLNoUNC Health Physician GroupComment on above:Result Comment: Random Glucose Reference Range is dependent on time and content of last meal. Glucose of more than 200 mg/dL in a nonstressed, ambulatory subject supports the diagnosis of Diabetes Mellitus. PERFORMED BY: [address] [address] PATHOLOGIST MET[employer] CASKET ASSEMBLER BEKAH FREED M.D.Performed By: #### GLULS #### Point of Care testing ,Glucose [Mass/Vol]281 mg/dLBaptist Health Hospital Doral Physician GroupComment on above: Result Comment: Random Glucose Reference Range is dependent on time and content of last meal. Glucose of more than 200 mg/dL in a nonstressed, ambulatory subject supports the diagnosis of Diabetes Mellitus. PERFORMED BY: [address] [address] PATHOLOGIST METAL CASKET ASSEMBLER BEKAH FREED M.D.Performed By: #### MONET, ADDONUAPLUS #### [place] [address] EGDYagpygh5Oyt4: Cleaned MeterNoUNC Health Physician GroupComment on above:Result Comment: PERFORMED BY: [place] [address] PATHOLOGIST METAL CASKET ASSEMBLER BEKAH FREED M.D.Performed By: #### MONET, ADDONUAPLUS #### [place] [address] USAGlucose [Mass/Vol]296 mg/dLNoUNC Health Physician GroupComment on above:Result Comment: Random Glucose Reference Range is dependent on time and content of last meal. Glucose of more than 200 mg/dL in a nonstressed, ambulatory subject supports the diagnosis of Diabetes Mellitus.Performed By: #### MONET, ADDONUAPLUS #### [place] [address] USAGlucose [Mass/Vol]277 mg/dLNoUNC Health Physician GroupComment on above:Result Comment: Random Glucose Reference Range is dependent on time and content of last meal. Glucose of more than 200 mg/dL in a nonstressed, ambulatory subject supports the diagnosis of Diabetes Mellitus. PERFORMED BY: [place] [address] PATHOLOGIST METAL CASKET ASSEMBLER BEKAH FREED M.D.Performed By: #### MONET, ADDONUAPLUS #### [place] [id number] USALDL Cholesterol Measuredon 77-27-9740VHF Cholesterol Rqbsxymx26 mg/dLNormal0-100The [facility] Physician GroupComment on above:Result Comment: LDL ATP III CLASSIFICATION LDL less than 100 mg/dL Optimal LDL 100-129 mg/dL Near or above optimal LDL 130-159 mg/dL Borderline high LDL 160-189 mg/dL High LDL greater than 189 mg/dL Very highPerformed By: #### GLULS #### Point of Care testing ,Lipid Panelon 11-14-5002WBS Cholesterol,CalculatedNot performedNormal0-100[facility] Physician [facility] General HospitalComment on above:Performed By: #### GLULS #### Point of Care testing ,Triglyceride w/Nhdkbe484 mg/dLHigh0-149[facility] Physician [facility] General HospitalComment on above:Result Comment: TRIG ATP III CLASSIFICATION TRIG less than 150 mg/dL Normal TRIG 150-199 mg/dL Borderline high TRIG 200-500 mg/dL High TRIG greater than 500 mg/dL Very high Standard traceable to the Center for Disease Conrtrol and Prevention (CDC) test method. If the triglyceride result is greater than 400, LDLC and related calculations cannot be calculated and resulted.Performed By: #### GLULS #### Point of Care testing ,VLDL RMMWWNKGREK872 mg/dLNoHocking Valley Community Hospitale [facility] Physician [facility] General HospitalComment on above: Performed By: #### GLULS #### Point of Care testing ,Serum or plasma high density lipoprotein (HDL) cholesterol measurementOrdered By: Blue Talbot on 02-97-4834Vikskgjiwph in HDL [Mass/Vol]22 mg/dLLow 23-92[facility] Medical CenterComment on above:HDL CHOL ATP-III CLASSIFICATION Cardiovascular RiskHDL > or equal to 60 mg/dL LOWHDL < 40 mg/dL HIGHResult Comment: HDL CHOL ATP-III CLASSIFICATION Cardiovascular Risk HDL > or equal to 60 mg/dL LOW HDL < 40 mg/dL HIGHPerformed By: #### GLULS #### Point of Care testing ,Serum or plasma total cholesterol/high density lipoprotein (HDL) cholesterol mass ratOrdered By: Blue Talbot on 08-02-2024 Cholesterol.total/Cholesterol in HDL [Mass ratio]6.8 {ratio}Normal<5.0[facility] Medical CenterComment on above:Performed By: #### GLULS #### Point of Care testing ,Thyroid Stim Hormone w/Rflxon 79-69-9405Qkcfyab Stim Hormone w/Rflx2.94 u[iU]/mLNormal0.45-5.33[facility] Physician [facility] General HospitalComment on above:Performed By: #### GLULS #### Point of Care testing ,Thyrotropin [Units/volume] in Serum or PlasmaOrdered By: Blue Talbot on 51-10-1608CEJ Qn2.94 m[IU]/L0.45-5.33[facility] Triglyceride [Mass/volume] in Serum or PlasmaOrdered By: Blue Talbot on 47-13-4242Foahlwkjnbft [Mass/Vol]569 mg/dLHigh0-149[facility] CenterComment on above:If the triglyceride result is greater than 400, LDLC and related calculations cannot be calculated and resulted.TRIG ATP III CLASSIFICATIONTRIG less than 150 mg/dL NormalTRIG 150-199 mg/dL Borderline highTRIG 200-500 mg/dL High TRIG greater than 500 mg/dL Very highStandard traceable to the Center for Disease Conrtrol and Prevention (CDC) test method. Vitamin D 25 Hydroxy Totalon 02-88-9323Ozukrkx D 25 Hydroxy Total31.4 ng/mL Lkdpss84-799Ass [facility] Physician GroupComment on above:Result Comment: VITAMIN D STATUS 25(OH)VITAMIN D RANGE (ng/mL) Deficient <20 Insufficient 20 to <30 Sufficient 30 to 100 Reference: Jodee Shrestha, Christina GUEVARA, et al. Evaluation,treatment, and prevention of vitamin D deficiency; an Endocrine Society clinical practice guideline. JCEM. 2010; 96(7):1911-30. PERFORMED BY: [address] [place] [address] PATHOLOGIST MET[employer] CASKET ASSEMBLER BEKAH FREED M.D.Performed By: #### GLULS #### Point of Care testing ,Vitamin D+Metabolites [Mass/volume] in Serum or PlasmaOrdered By: Blue Talbot on 24-79-0632Wkesltu D+Metabolites [Mass/Vol]31.4 ng/uP52-744CkpfdabdqAshtabula County Medical CenterComment on above:VITAMIN D STATUS 25(OH)VITAMIN D RANGE (ng/mL) Deficient <20 Insufficient 20 to <70Wmvrfqrwky80 to 100Reference: Jodee Shrestha, Christina GUEVARA, et al. Evaluation,treatment, and prevention of vitamin D deficiency; an Endocrine Society clinical practice guideline. JCEM. 2010; 96(7):1911-30.Alanine aminotransferase [Enzymatic activity/volume] in Serum or PlasmaOrdered By: Octavio Patrick on 20-74-0425KPQ [Catalytic activity/Vol]16 U/LNormal7-52[facility] Medical CenterComment on above:Performed By: #### GLULS #### Point of Care testing ,Albumin [Mass/volume] in Serum or Plasma by Bromocresol green (BCG) dye binding methoOrdered By: Octavio Patrick on 03-78-9345Hwdmvkn BCG dye [Mass/Vol]4.2 g/dL 3.5-5.7FMercy Health St. Elizabeth Boardman HospitalAlkaline phosphatase [Enzymatic activity/volume] in Serum or PlasmaOrdered By: Octavio Patrick on 04-34-9762EWO [Catalytic activity/Vol]43 U/DFjnbwb09-067LxxktrgapAshtabula County Medical Center Comment on above:Performed By: #### GLULS #### Point of Care testing ,Amphetamine Screen Ql (U)Ordered By: Octavio Patrick on 25-71-5270Aaruobuhoarl Ql (U)NegativeNegativeAshtabula County Medical CenterAspartate aminotransferase [Enzymatic activity/volume] in Serum or PlasmaOrdered By: Octavio Patrick on 50-47-7839NCF [Catalytic activity/Vol]12 U/GEzc09-90GwfslxkfbAshtabula County Medical CenterComment on above:Result Comment: PERFORMED BY: [address] [place] [address] PATHOLOGIST METAL CASKET ASSEMBLER BEKAH FREED M.D.Performed By: #### GLULS #### Point of Care testing ,Automated basophil %Ordered By: Octavio Patrick on 87-70-5222Npjblgwzj/100 WBC (Bld)0.6 %Normal.[facility] Medical CenterComment on above:Performed By: #### GLULS #### Point of Care testing ,Automated basophil countOrdered By: Octavio Patrick on 36-06-7621Jgvqhobxr (Bld) [#/Vol]0.1 10*3/uLNormal0.0-0.2FMercy Health St. Elizabeth Boardman HospitalComment on above:Result Comment: PERFORMED BY: [facility] [address] [place] [address] PATHOLOGIST METAL CASKET ASSEMBLER BEKAH FREED M.D.Performed By: #### GLULS #### Point of Care testing ,Automated blood monocyte countOrdered By: Octavio Patrick on 71-17-8643Rqmfutwhx (Bld) [#/Vol]0.4 10*3/uLNormal0.0-0.8[facility] Medical CenterComment on above:Performed By: #### GLULS #### Point of Care testing ,Automated eosinophil %Ordered By: Octavio Patrick on 54-50-0630Rrwphktahpx/100 WBC (Bld)0.7 %Normal.[facility] Medical CenterComment on above:Performed By: #### GLULS #### Point of Care testing ,Automated eosinophil countOrdered By: Octavio Patrick on 00-87-5658Qoiykjzzodh (Bld) [#/Vol]0.1 10*3/uLNormal0.0-0.45[facility] Medical CenterComment on above:Performed By: #### GLULS #### Point of Care testing ,Automated monocyte %Ordered By: Octavio Patrick on 55-09-5499Zgzrcamfy/100 WBC (Bld)4.6 %Normal.[facility] Medical CenterComment on above:Performed By: #### GLULS #### Point of Care testing ,Automated neutrophil %Ordered By: Octavio Patrick on 89-91-7589Fhmulcrafed/100 WBC (Bld)59.5 %Normal.[facility] Medical CenterComment on above: Performed By: #### GLULS #### Point of Care testing ,Bacteria [Presence] in Urine by AutomatedOrdered By: Octavio Patrick on 08-80-5207Sztrzzji Auto Ql (U)None seen [HPF]None SeenAshtabula County Medical CenterBarbiturates [Presence] in Urine by Screen methodOrdered By: Octavio Patrick on 91-48-5451Gijxcxzamvih Screen Ql (U)NegativeNegativeAshtabula County Medical CenterBenzodiazepines Screen Ql (U)Ordered By: Octavio Patrick on 03-05-4624Zgdgavfuvdrsjkk Ql (U)NegativeNegativeAshtabula County Medical CenterBenzoylecgonine [Presence] in Urine by Screen methodOrdered By: Octavio Patrick on 02-81-5624Fahpathdktnrbkj Screen Ql (U)NegativeNegHolzer HospitalBilirubin Test strip Ql (U)Ordered By: Octavio Patrick on 09-39-5122Gjkngsvsr Ql (U)NegativeNegHolzer Hospital Bilirubin.total [Mass/volume] in Serum or PlasmaOrdered By: Octavio Patrick on 27-51-3161Cxseyarkl [Mass/Vol]0.9 mg/dLNormal0.3-1.0[facility] Medical CenterComment on above:Performed By: #### GLULS #### Point of Care testing ,Calcium [Mass/volume] in Serum or PlasmaOrdered By: Octavio Patrick on 08-01-2024 Calcium [Mass/Vol]9.4 mg/dLNormal8.6-10.3FMercy Health St. Elizabeth [facility] Hospital Comment on above:Performed By: #### GLULS #### Point of Care testing ,Cannabinoids [Presence] in Urine by Screen methodOrdered By: Octavio Patrick on 08-37-6253Nryadswikthc Screen Ql (U)NegativeNegHolzer HospitalComment on above:These are unconfirmed results and should not be used for legal purposes. Drug Cut-Off Concentration: AMPH 1000 ng/mL KATHLEEN 200 ng/mL CARMEN 200 ng/mL COCM 300 ng/mL OP 300 ng/mL PCP 25 ng/mL THC 20 ng/mLCapillary blood glucose measurement by glucometer (mass/volume)Ordered By: Octavio Patrick on 62-69-0723Iehmzlf [Mass/Vol]352 mg/dLKettering Health Troy Comment on above:Random Glucose Reference Range is dependent on time and content of last meal. Glucose of more than 200 mg/dL in a nonstressed, ambulatory subject supports the diagnosis of Diabetes Mellitus.Result Comment: Random Glucose Reference Range is dependent on time and content of last meal. Glucose of more than 200 mg/dL in a nonstressed, ambulatory subject supports the diagnosis of Diabetes Mellitus.Performed By: #### GLULS #### Point of Care testing ,Carbon dioxide, total [Moles/volume] in Serum or PlasmaOrdered By: Octavio Patrick on 30-20-9750NB6 [Moles/Vol]27.8 mmol/RZmabgo17.0-31.0[facility] Medical CenterComment on above:Performed By: #### GLULS #### Point of Care testing ,Chloride [Moles/volume] in Serum or PlasmaOrdered By: Octavio Patrick on 89-42-7074Voifvlcz [Moles/Vol]98 mmol/OMxjbbl31-609FfiiogcdkAshtabula County Medical CenterComment on above:Performed By: #### GLULS #### Point of Care testing ,Color of Urine by AutoOrdered By: Octavio Patrick on 19-38-5594Oqyqb (U) Light-yellowNormalYellowAshtabula County Medical CenterComment on above:Order Comment: Name Collection Type:: Clean-Voided MidstreamPerformed By: #### URDS, ADDONUAPLUS #### [place] [address] USAComplete Blood Count Auto Diffon 26-88-6118Jolf Corpuscular HGB Conc36.9 g/wZKdgz30.5-35.6[facility] Physician [facility] HospitalComment on above:Performed By: #### GLULS #### Point of Care testing ,Monocytes/100 WBC (Bld)15.15 %Normal0.00-20.00[facility] Physician [facility] Comment on above:Performed By: #### GLULS #### Point of Care testing ,NRBC%0.3 /100{WBC}Normal0-0.5[facility] Physician [facility] General HospitalComment on above: Performed By: #### GLULS #### Point of Care testing ,Comprehensive Metabolic Panelon 48-46-0842Hiueupj LevelNormal3.5-5.7[facility] Physician [facility] General HospitalComment on above:Result Comment: Specimen hemolyzed, redraw requestedPerformed By: #### GLULS #### Point of Care testing ,Albumin/Globulin [Mass ratio]Not performedNormalThe [facility] Physician [facility] Comment on above:Performed By: #### GLULS #### Point of Care testing ,Anion gap [Moles/Vol]Not performedNormal6.0-15.0[facility] Comment on above:Performed By: #### GLULS #### Point of Care testing ,Aspartate Amino TufxuwdohphGsalgz07-96Vnx [facility] Physician GroupComment on above:Result Comment: Specimen hemolyzed, redraw requestedPerformed By: #### GLULS #### Point of Care testing ,Creatinine Clr Calc Irxufpii677.07NoUNC Health Physician GroupComment on above:Result Comment: PERFORMED BY: [facility] [place] [address] PATHOLOGIST METAL CASKET ASSEMBLER BEKAH FREED M.D.Performed By: #### GLULS #### Point of Care testing ,GFR/1.73 sq M.predicted MDRD (S/P/Bld) [Vol rate/Area]mL/min/{1.73_m2}NormalThe Highlands-C[facility]iers Hospital Physician GroupComment on above:Performed By: #### GLULS #### Point of Care testing ,GlobulinNot performedNoUNC Health Physician GroupComment on above: Performed By: #### GLULS #### Point of Care testing ,PotassiumNormal3.5-5.1[facility] Physician GroupComment on above:Result Comment: Specimen hemolyzed, redraw requestedPerformed By: #### GLULS #### Point of Care testing ,CbjujzVnutkm254-985Kmg [facility] Physician GroupComment on above:Result Comment: Specimen hemolyzed, redraw requestedPerformed By: #### GLULS #### Point of Care testing ,Total ProteinNormal6.4-8.9The [facility] Physician GroupComment on above:Result Comment: Specimen hemolyzed, redraw requestedPerformed By: #### GLULS #### Point of Care testing ,Creatinine [Mass/volume] in Serum or PlasmaOrdered By: Octavio Patrick on 69-90-4339Ymoysgvubs [Mass/Vol]1.02 mg/dLNormal0.70-1.30[facility] County Medical CenterComment on above:Performed By: #### GLULS #### Point of Care testing ,Dipstick and Microscopicon 98-38-4735Llidpxkb,UrineNone SeenNormalNone SeenAdventhealth North Pinellas Physician GroupComment on above:Order Comment: Name Collection Type:: Clean-Voided MidstreamPerformed By: #### URDS, ADDONUAPLUS #### [place] [address] USABilirubin,UrineNegativeNormalNegativeThe [facility] Physician GroupComment on above:Order Comment: Name Collection Type:: Clean- Voided MidstreamPerformed By: #### URDS, ADDONUAPLUS #### [place] [address] USAGlucose Ql (U)>=1000HighNoUNC Health Physician GroupComment on above:Order Comment: Name Collection Type:: Clean-Voided MidstreamPerformed By: #### URDS, ADDONUAPLUS #### [place] [address] USAHyaline Casts,UrineNoneNormal0-8The [facility] Physician GroupComment on above:Order Comment: Name Collection Type:: Clean-Voided MidstreamPerformed By: #### URDS, ADDONUAPLUS #### [place] [address] USAMucus,UrineRareNormalThe [facility] Physician GroupComment on above:Order Comment: Name Collection Type:: Clean-Voided MidstreamResult Comment: PERFORMED BY: [place] [address] PATHOLOGIST METAL CASKET ASSEMBLER BEKAH FREED M.D.Performed By: #### URDS, ADDONUAPLUS #### [place] [address] USANitrite,UrineNegativeNormalNegativeAdventhealth North Pinellas Physician GroupComment on above:Order Comment: Name Collection Type:: Clean-Voided MidstreamPerformed By: #### URDS, ADDONUAPLUS #### [place] [address] USAOccult Blood,UrineNegativeNormalNegativeThe [facility] Physician GroupComment on above:Order Comment: Name Collection Type:: Clean- Voided MidstreamResult Comment: PERFORMED BY: [place] [address] PATHOLOGIST MET[employer] CASKET ASSEMBLER BEKAH FREED M.D.Performed By: #### URDS, ADDONUAPLUS #### [place] [address] USARBC,Behsv2-7Ncwkgy1-1Cke [facility] Physician GroupComment on above:Order Comment: Name Collection Type:: Clean-Voided MidstreamPerformed By: #### URDS, ADDONUAPLUS #### [place] [address] USASpecificy Gridley,Urine1.924Nnxh6.001-1.030The [facility] Physician GroupComment on above:Order Comment: Name Collection Type:: Clean- Voided MidstreamPerformed By: #### URDS, ADDONUAPLUS #### [place] [address] USASquamous Epithelial Cell,Obibx5-3Vlrmxy5-9Mzx [facility] Physician GroupComment on above:Order Comment: Name Collection Type:: Clean- Voided MidstreamPerformed By: #### URDS, ADDONUAPLUS #### [place] [address] USAUrobilinogen,UrineNormalNormalNormalThe [facility] Physician GroupComment on above:Order Comment: Name Collection Type:: Clean- Voided MidstreamPerformed By: #### URDS, ADDONUAPLUS #### [place] [address] USAWBC,Rasqa9-5Onpkkf7-4Cyn [facility] Physician GroupComment on above:Order Comment: Name Collection Type:: Clean-Voided MidstreamPerformed By: #### URDS, ADDONUAPLUS #### [place] [address] USADrug Screen,Urineon 10-76-9421Lsztcawsvmx Screen,Urine NegativeNormalNegativeThe [facility] Physician GroupComment on above:Performed By: #### URDS, ADDONUAPLUS #### [place] [address] USABarbiturate Screen,UrineNegativeNormalNegativeThe [facility] Physician GroupComment on above:Performed By: #### URDS, ADDONUAPLUS #### [place] [address] USABenzodiazepines Screen,UrineNegativeNormalNegativeThe [facility] Physician GroupComment on above:Performed By: #### URDS, ADDONUAPLUS #### [place] [address] USACannabinoid Screen,UrineNegativeNormalNegativeThe [facility] Physician GroupComment on above:Result Comment: These are unconfirmed results and should not be used for legal purposes. Drug Cut-Off Concentration: AMPH 1000 ng/mL KATHLEEN 200 ng/mL CARMEN 200 ng/mL COCM 300 ng/mL OP 300 ng/mL PCP 25 ng/mL THC 20 ng/mL PERFORMED BY: [place] [address] PATHOLOGIST [employer] C[employer]ET ASSEMBLER BEKAH FREED M.D.Performed By: #### URDS, ADDONUAPLUS #### [place] [address] USACocaine Screen,UrineNegativeNormalNegativeThe [facility] Physician GroupComment on above:Performed By: #### URDS, ADDONUAPLUS #### [place] [address] USAOpiate Screen,UrineNegativeNormalNegativeThe [facility] Physician GroupComment on above:Performed By: #### URDS, ADDONUAPLUS #### [place] [address] USAPhencyclidine Screen,UrineNegativeNormalNegativeThe [facility] Physician GroupComment on above:Performed By: #### URDS, ADDONUAPLUS #### [place] [address] USAECG 12 lead ECGon 34-62-0067XEH 12 lead ECGKETTERING [facility] [place] [address] [place] [address] Electrocardiograph Report Signed Patient: Tracie Ramirez MR#: [id number] : 2000 Acct:[id number] Age/Sex: 24 / M ADM Date: 08/01/24 Loc: 1S Room: [address] [place] [address] Type: ADM IN Attending Dr: Blue Talbot [...] rhythm Normal ECG Confirmed by Lynnette Daniels ([id number]) on 08/02/2024 10:16:21 AM Referred By: Electronically Signed By: Lynnette Daniels Transcribed By: MUS Signed By Lynnette Daniels MD [address] [place] [address] Physician GroupEpithelial cells.squamous [#/area] in Urine sediment by Automated countOrdered By: Octavio Patrick on 08-01-2024 Epithelial cells.squamous Auto (Urine sed) [#/Area]1-2 [HPF]0-2FMercy Health St. Elizabeth Boardman HospitalErythrocyte distribution width [Ratio] by Automated count Ordered By: Octavio Patrick on 15-33-9498Azootkzffmz distribution width (RBC) [Ratio]13.7 %Oqetqz74.0-14.8[facility] County Medical CenterComment on above: Performed By: #### GLULS #### Point of Care testing ,Erythrocytes [#/area] in Urine sediment by Automated countOrdered By: Octavio Patrick on 41-44-9846KRH Auto (Urine sed) [#/Area]1-2 [HPF]0-4FMercy Health St. Elizabeth Boardman HospitalErythrocytes [#/volume] in Blood by Automated countOrdered By: Octavio Patrick on 43-90-7614BGR (Bld) [#/Vol]5.39 10*6/uLNormal3.90-5.60[facility] County Medical CenterComment on above:Performed By: #### GLULS #### Point of Care testing ,Ethanol [Mass/volume] in Serum or PlasmaOrdered By: Octavio Patrick on 08-01-2024 Ethanol [Mass/Vol]mg/dLNoDelaware County HospitalComment on above: Performed By: #### GLULS #### Point of Care testing ,Ethanol [Mass/Vol][facility] HospitalComment on above:Test not performedEthyl Alcohol Profileon 65-55-8607Otyerdc EthanolNot performedNormal The [facility] Physician [facility] HospitalComment on above:Result Comment: PERFORMED BY: [place] [address] PATHOLOGIST MET[employer] CASKET ASSEMBLER BEKAH FREED M.D.Performed By: #### GLULS #### Point of Care testing ,Globulin Calc (S) [Mass/Vol]Ordered By: Octavio Patrick on 46-02-6971Djlmgpda (S) [Mass/Vol][facility] HospitalComment on above:Test not performedGlucose Poct Glucometerson 51-67-4609Quoejfa [Mass/Vol]330 mg/dLNormal The [facility] Physician [facility] HospitalComment on above:Result Comment: Random Glucose Reference Range is dependent on time and content of last meal. Glucose of more than 200 mg/dL in a nonstressed, ambulatory subject supports the diagnosis of Diabetes Mellitus. PERFORMED BY: [place] [address] PATHOLOGIST MET[employer] CASKET ASSEMBLER BEKAH FREED M.D.Performed By: #### URDS, ADDONUAPLUS #### [place] [address] USAGlucose [Mass/Vol]251 mg/dLNoUNC Health Physician [facility] HospitalComment on above:Result Comment: Random Glucose Reference Range is dependent on time and content of last meal. Glucose of more than 200 mg/dL in a nonstressed, ambulatory subject supports the diagnosis of Diabetes Mellitus. PERFORMED BY: [place] [address] PATHOLOGIST MET[employer] CASKET ASSEMBLER BEKAH FREED M.D.Performed By: #### GLULS #### Point of Care testing ,Pccmqli1NgrnpwOirBaptist Health Hospital [facility] Physician [facility] HospitalComment on above:Result Comment: Glu2: WILL NOTIFY DR/RN PERFORMED BY: [facility] [place] [address] PATHOLOGIST MET[employer] CASKET ASSEMBLER BEKAH FREED M.D.Performed By: #### GLULS #### Point of Care testing ,Glucose [Mass/volume] in Serum or PlasmaOrdered By: Octavio Patrick on 08-01-2024 Glucose [Mass/Vol]206 mg/aVIuel40-781EzfuwzzuqAshtabula County Medical CenterComment on above:ADA recommended reference rangeRandom Glucose Reference Range is dependent on time and content of last meal. Glucose of more than 200 mg/dL in a nonstressed, ambulatory subject supports the diagnosisof Diabetes Mellitus. Result Comment: Random Glucose Reference Range is dependent on time and content of last meal. Glucose of more than 200 mg/dL in a nonstressed, ambulatory subject supports the diagnosis of Diabetes Mellitus. ADA recommended reference rangePerformed By: #### GLULS #### Point of Care testing ,Glucose [Mass/volume] in Urine by Test stripOrdered By: Octavio Patrick on 52-92-6329Pylrlcf Test strip (U) [Mass/Vol]>=1000 mg/dLHighSalem Memorial District HospitalalAshtabula County Medical CenterHematocrit [Volume Fraction] of Blood by Automated count Ordered By: Octavio Patrick on 28-62-9437Uzuuvywlax (Bld) [Volume fraction]45.4 % Lossct21.8-50.0[facility] County Medical CenterComment on above:Performed By: #### GLULS #### Point of Care testing ,Hemoglobin Test strip Ql (U)Ordered By: Octavio Patrick on 64-57-9698Bacphzfcvs Ql (U)NegativeNegativeAshtabula County Medical CenterHemoglobin [Mass/volume] in BloodOrdered By: Octavio Patrick on 76-27-6826Zyhspuvytj (Bld) [Mass/Vol]16.8 g/eKFpewny69.0-17.0As[facility] County Medical CenterComment on above:Performed By: #### GLULS #### Point of Care testing ,Hyaline casts [#/area] in Urine sediment by Automated countOrdered By: Octavio Patrick on 16-35-5732Vhvjfuc casts Auto (Urine sed) [#/Area]None [LPF]0-8 [facility] Medical CenterKetones [Presence] in Urine by Test strip Ordered By: Octavio Patrick on 20-88-0154Ytrcxat Ql (U)1+HighNegativeAshtabula County Medical CenterComment on above:Order Comment: Name Collection Type:: Clean-Voided MidstreamPerformed By: #### URDS, ADDONUAPLUS #### [facility] [address] [place], [place] [address] USALeukocyte esterase [Presence] in Urine by Test strip Ordered By: Octavio Patrick on 05-34-9194Ixcohvwgd esterase Test strip Ql (U) NegativeNormalNegHolzer HospitalComment on above:Order Comment: Name Collection Type:: Clean-Voided MidstreamPerformed By: #### URDS, ADDONUAPLUS #### [facility] [address] [place], [place] [address] USALeukocytes [#/area] in Urine sediment by Automated count Ordered By: Octavio Patrick on 78-56-3286SOQ Auto (Urine sed) [#/Area]1-2 [HPF]0-4 [facility] Medical CenterLeukocytes [#/volume] corrected for nucleated erythrocytes in Blood by Automated counOrdered By: Octavio Patrick on 08-01-2024 WBC corrected for nucl RBC Auto (Bld) [#/Vol]8.6 10*3/uL4.1-10.5FMercy Health St. Elizabeth Boardman HospitalLeukocytes [#/volume] in Blood by Automated countOrdered By: Octavio Patrick on 70-64-6885DPT (Bld) [#/Vol]8.6 10*3/uLNormal4.1-10.5 [facility] Medical CenterComment on above:Performed By: #### GLULS #### Point of Care testing ,Lymphocytes [#/volume] in Blood by Automated countOrdered By: Octavio Patrick on 62-73-9422Flagxqvlfld (Bld) [#/Vol]3.0 10*3/uLNormal1.00-4.8[facility] County Medical CenterComment on above:Performed By: #### GLULS #### Point of Care testing ,Lymphocytes/100 leukocytes in Blood by Automated countOrdered By: Octavio Patrick on 87-16-4061Uqbpsgjyqzl/100 WBC (Bld)34.6 %Normal.As[facility] County Medical CenterComment on above:Performed By: #### GLULS #### Point of Care testing ,MCH [Entitic mass] by Automated countOrdered By: Octavio Patrick on 09-31-6943SZB (RBC) [Entitic mass]31.1 nnCpatxn19.5-35.2FMercy Health St. Elizabeth [facility] Hospital Comment on above:Performed By: #### GLULS #### Point of Care testing ,MCHC Auto (RBC) [Mass/Vol]Ordered By: Octavio Patrick on 36-53-7723WPKZ (RBC) [Mass/Vol]36.9 g/yTSidy61.5-35.6FMercy Health St. Elizabeth Boardman HospitalMCV [Entitic volume] by Automated countOrdered By: Octavio Patrick on 68-44-3561UKM (RBC) [Entitic vol]84.3 xLMrjadg00.5-101As[facility] County Medical CenterComment on above:Performed By: #### GLULS #### Point of Care testing ,Monocyte distribution width [Entitic volume] in Blood by AutomatedOrdered By: Octavio Patrick on 34-74-2525Wwelwpwy distribution width Auto (Bld) [Entitic vol] 15.15 %0.00-20.00[facility] Medical CenterMucus [Presence] in Urine by AutomatedOrdered By: Octavio Patrick on 80-34-4077Wymgo Auto Ql (U)Rare [LPF] [facility] Medical CenterNeutrophils [#/volume] in Blood by Automated countOrdered By: Octavio Patrick on 95-42-6099Iqemdbmjfvm (Bld) [#/Vol]5.1 10*3/uL Normal1.8-7.7FMercy Health St. Elizabeth Boardman HospitalComment on above:Performed By: #### GLULS #### Point of Care testing ,Nitrite Test strip Ql (U)Ordered By: Octavio Patrick on 06-70-9927Jvmychy Ql (U) NegativeNegativeAshtabula County Medical CenterNo Panel InformationOrdered By: Octavio Patrick on 49-75-2428Hfaujcj Glucose CommentSee commentAshtabula County Medical CenterComment on above:Glu2: WILL NOTIFY DR/RNEstimated GFR (CKD-EPI)> 60.0 mL/MinAshtabula County Medical CenterPharmacy Creatinine Clearance (Chem 135.07[facility] Medical CenterNucleated erythrocytes [Presence] in Blood by Automated countOrdered By: Octavio Patrick on 66-56-2132Eoxvnjxsu RBC Auto Ql (Bld)0.3 /100{WBC}0-0.5FMercy Health St. Elizabeth Boardman HospitalOpiates [Presence] in Urine by Screen methodOrdered By: Octavio Patrick on 08-01-2024 Opiates Screen Ql (U)NegativeNegHolzer Hospital Phencyclidine Screen Ql (U)Ordered By: Octavio Patrick on 56-49-4647Dtrmaqizrohvt Ql (U)NegativeNegHolzer HospitalPlatelet mean volume [Entitic volume] in Blood by Automated countOrdered By: Octavio Patrick on 08-56-1038Ykxpowrq mean volume (Bld) [Entitic vol]7.9 fLNormal6.6-10.1FMercy Health St. Elizabeth Boardman HospitalComment on above:Performed By: #### GLULS #### Point of Care testing ,Platelets [#/volume] in Blood by Automated countOrdered By: Octavio Patrick on 23-10-9091Tdkvnjouf (Bld) [#/Vol]160 10*3/pBTcjjuw014-688GrtgzfedmAshtabula County Medical CenterComment on above:Performed By: #### GLULS #### Point of Care testing ,Potassium [Moles/volume] in Serum or PlasmaOrdered By: Octavio Patrick on 66-71-4858Downkkjcr [Moles/Vol]4.1 mmol/LNormal3.5-5.1FMercy Health St. Elizabeth Boardman HospitalComment on above:Performed By: #### GLULS #### Point of Care testing ,Protein [Mass/volume] in Serum or PlasmaOrdered By: Octavio Patrick on 08-01-2024 Protein [Mass/Vol]6.9 g/dLNormal6.4-8.9[facility] Medical CenterComment on above:Performed By: #### GLULS #### Point of Care testing ,Protein [Mass/volume] in Urine by Test stripOrdered By: Octavio Patrick on 61-16-9384Vnvnfuy (U) [Mass/Vol]20 mg/dLHighNegativeAshtabula County Medical CenterComment on above:Order Comment: Name Collection Type:: Clean-Voided MidstreamPerformed By: #### URDS, ADDONUAPLUS #### [facility] [address] [place] [address] USARedraw Rosie 90-37-0513Jihzaq AEXRhfyav22-16Odm [facility] Physician GroupComment on above:Result Comment: Specimen hemolyzed, redraw requested PERFORMED BY: [facility] [address] [place] [address] PATHOLOGIST MET[employer] CASKET ASSEMBLER BEKAH FREED M.D.Performed By: #### GLULS #### Point of Care testing ,Redraw Albumin Levelon 13-24-1829Aamqxeg [Mass/Vol]4.2 g/dLNormal3.5-5.7The [facility] Physician GroupComment on above:Performed By: #### GLULS #### Point of Care testing ,Redraw Potassiumon 23-68-6006Aoelki PotassiumNormal3.5-5.1The [facility] Physician GroupComment on above:Result Comment: Specimen hemolyzed, redraw requestedPerformed By: #### GLULS #### Point of Care testing ,Serum or plasma albumin/globulin mass ratioOrdered By: Octavio Patrick on 98-46-4913Uwjzroj/Globulin [Mass ratio][facility] Comment on above:Test not performedSerum or plasma anion gap determination Ordered By: Octavio Patrick on 00-99-6239Jbtvj gap [Moles/Vol][facility] HospitalComment on above:Test not performedSodium [Moles/volume] in Serum or PlasmaOrdered By: Octavio Patrick on 05-85-6765Ciuufs [Moles/Vol]134 mmol/VQsx137-631JaxwufptmAshtabula County Medical CenterComment on above:Performed By: #### GLULS #### Point of Care testing ,Specific gravity Test strip (U) [Rel density]Ordered By: Octavio Patrick on 20-42-7407Aijouotn gravity (U) [Rel density]1.750Kuzi5.001-1.030[facility] Medical CenterUrea nitrogen [Mass/volume] in Serum or PlasmaOrdered By: Octavio Patrick on 03-66-0216Quye nitrogen [Mass/Vol]14 mg/dLNormal7-25[facility] Medical CenterComment on above:Performed By: #### GLULS #### Point of Care testing ,Urine appearanceOrdered By: Octavio Patrick on 32-69-8279Vnsgmdemvi (U)Clear NormalCleCleveland Clinic South Pointe HospitalComment on above:Order Comment: Name Collection Type:: Clean-Voided MidstreamPerformed By: #### URDS, ADDONUAPLUS #### [facility] [address] [place] [address] USAUrobilinogen Test strip (U) [Mass/Vol]Ordered By: Octavio Patrick on 19-46-1874Riafoftgzbua (U) [Mass/Vol]Normal mg/dLNormLouis Stokes Cleveland VA Medical CenterpH of Urine by Test stripOrdered By: Octavio Patrick on 66-17-7936nN (U)6.0 [pH]Normal5.0-9.0[facility] Medical CenterComment on above:Order Comment: Name Collection Type:: Clean-Voided MidstreamPerformed By: #### URDS, ADDONUAPLUS #### [facility] [address] [place] [address] WKHLfB4k HPLC (Bld) [Mass fraction]on 56-97-2489GoZ7x (Bld) [Mass fraction]%[facility] MiamisburgPatient Letter FTon 38-54-7053Siqzwgu Letter [facility]Patient Letter [facility] [place] June 02, 20[address]Z [address] [place] [id number] : 2000 Dear Mr. Tracie Ramirez, You [...] appreciate your consideration regarding any future cancellations. Sincerely,[facility] HospitalXR Knee Complete Left*on 02-78-5111ID Knee Complete Left*TECHNIQUE: AP, lateral and oblique views of the [...] and signed by Darien Lugo on 03/05/[address] [facility] AUTO DIFFon 81-86-6040RIOU #0.0 103/ulNormal0.0-0.1 [facility] CenterComment on above:Performed By: #### POCGLUC #### [facility] [address] [address] [address] Taylor GarciaBasophils/100 WBC (Bld)0.6 %Normal0.2-2.0[facility] Comment on above:Performed By: #### POCGLUC #### [facility] [address] [address] [address] Taylor Mills #0.1 103/ulNormal0.0-0.7The [facility] Hospital Of ColumbusComment on above: Performed By: #### POCGLUC #### [facility] [address] [address] [address] Taylor Pulliamosinophils/100 WBC (Bld)1.7 %Normal0.9-7.0[facility] Comment on above:Performed By: #### POCGLUC #### [facility] [address] [address] [address] Taylor Pulliamrythrocyte distribution width (RBC) [Ratio]12.7 %Zwriua10.0-15.0 [facility] CenterComment on above:Performed By: #### POCGLUC #### [facility] [address] [place] [address] Dr. Taylor Moyeratokarlit (Bld) [Volume fraction]38.6 %Critically low42.0-54.0 The [facility] Of ColumbusComment on above:Performed By: #### POCGLUC #### [facility] [address] [place] [address] Dr. Taylor GarciaHemoglobin (Bld) [Mass/Vol]14.0 g/rMUvorah53.0-18.0The [facility] Of ColumbusComment on above:Performed By: #### POCGLUC #### [facility] [address] [place] [address] Dr. Taylor Elder #0.08 10e3/ulCritically high0.00-0.03The [facility] Comment on above:Performed By: #### POCGLUC #### [facility] [address] [place] [address] Dr. Taylor Elder %1.6 %Critically high0.0-0.5The [facility] Of ColumbusComment on above:Performed By: #### POCGLUC #### [facility] [address] [place] [address] Dr. Taylor Del Toro #1.7 103/ulNormal1.2-3.8The [facility] Of ColumbusComment on above:Performed By: #### POCGLUC #### [facility] [address] [place] [address] Dr. Taylor Solomonhocytes/100 WBC (Bld)33.4 %Bgzqbj76.5-60.0The [facility] Of ColumbusComment on above:Performed By: #### POCGLUC #### [facility] [address] [place] [address] Dr. Taylor DamonUAL DIFF REQNONormalThe [facility] Hospital Of ColumbusComment on above: Performed By: #### POCGLUC #### [facility] [address] [place] [address] Dr. Taylor Hurst (RBC) [Entitic mass]31.7 jdVomwoj62.9-34.0The [facility] Of ColumbusComment on above:Performed By: #### POCGLUC #### [facility] [address] [place] [address] Dr. Taylor Marley (RBC) [Mass/Vol]36.3 g/dLCritically high29.9-35.2The [facility] Of ColumbusComment on above:Performed By: #### POCGLUC #### [facility] [address] [place] [address] Dr. Taylor Yusuf (RBC) [Entitic vol]87.3 zLNhycpt15.0-94.0The [facility] Of ColumbusComment on above:Performed By: #### POCGLUC #### [facility] [address] [place] [address] Dr. Taylor Guillen #0.4 103/ulNormal0.3-0.8The [facility] Of ColumbusComment on above:Performed By: #### POCGLUC #### [facility] [address] [place] [address] Dr. Taylor Alvarezocytes/100 WBC (Bld)8.2 %Normal1.7-12.0The [facility] Comment on above:Performed By: #### POCGLUC #### [facility] [address] [place] [address] Dr. Taylor Hansen #2.8 103/ulNormal1.4-6.5The [facility] Hospital Of ColumbusComment on above:Performed By: #### POCGLUC #### [facility] [address] [place] [address] Dr. Taylor Firedutrophils/100 WBC (Bld)54.5 %Jduxhh35.0-75.0The [facility] Of ColumbusComment on above:Performed By: #### POCGLUC #### [facility] [address] [place] [address] Dr. Taylor Tomaslet mean volume (Bld) [Entitic vol]10.3 fLNormal9.5-13.5The [facility] Of ColumbusComment on above:Performed By: #### POCGLUC #### [facility] [address] [address] [address] Taylor GarciaPLT113 103/ulCritically eer526-517Epk [facility] ColumbusComsouthwest [facility] rehabilitation [facility] on above:Performed By: #### POCGLUC #### [facility] [address] [place] [address] Dr. Taylor GarciaRBC4.42 106/ulCritically low4.70-6.10The [facility] Of ColumbusComment on above:Performed By: #### POCGLUC #### [facility] [address] [place] [address] Dr. Taylor GarciaWBC5.2 103/ulNormal4.0-11.0The [facility] ColumbusComsouthwest regional rehabilitation center on above: Performed By: #### POCGLUC #### [facility] [address] [place] [address] Dr. Taylor GarciaDIRECT LDLon 35-48-8106Exjolkknwvd in LDL [Mass/Vol]108 mg/dL NormalThe [facility] on above:Performed By: #### POCGLUC #### [facility] [address] [place] [address] Dr. Taylor GarciaDLDL NORMALSEE [facility] Medical CenterComment on above: Result Comment: <100 mg/dl OPTIMAL 100 - 129 mg/dl NEAR OR ABOVE OPTIMAL 130 - 159 mg/dl BORDERLINE HIGH 160 - 189 mg/dl HIGH >190 mg/dl VERY HIGHPerformed By: #### POCGLUC #### [facility] [address] [place] [address] Dr. Taylor GarciaLIPASEon 73-01-6230Mnfuww [Catalytic activity/Vol]91.0 U/LNormal 73.0-393.0The [facility] ColumbusComment on above:Performed By: #### POCGLUC #### [facility] [address] [place] [address] Dr. Taylor BorregoID PROFILEon [id number]-HDL RATIO NORMSEE [facility] CenterComsouthwest regional rehabilitation center on above:Result Comment: 3.3 - 4.4 LOW RISK 4.4 - 7.1 AVERAGE RISK 7.1 - 11.0 MODERATE RISK >11.0 HIGH RISKPerformed By: #### POCGLUC #### [facility] [address] [address] [address] Taylor GarciaCholesterol [Mass/Vol]299 mg/dLCritically high<=200The [facility]Com[facility] on above:Performed By: #### POCGLUC #### [facility] [address] [address] [address] Taylor GarciaCholesterol in HDL [Mass/Vol]22 mg/dLCritically bxt18-25Htf [facility] ColumbusComment on above:Performed By: #### POCGLUC #### [facility] [address] [address] [address] Taylor Yeeesterol.total/Cholesterol in HDL [Mass ratio]13.6 {ratio} NormalThe [facility] Hospital Of ColumbusComment on above:Performed By: #### POCGLUC #### [facility] [address] [address] [address] Taylor Puentes NORMAL> or = 60 mg/dl - LOW CARDIOVASCULAR RISK <40 mg/dl - HIGH CARDIOVASCULAR RISKNoDiley Ridge Medical CenterComment on above:Performed By: #### POCGLUC #### [facility] [address] [address] [address] Taylor GarciaTriglyceride [Mass/Vol]798 mg/dLCritically high<=150The [facility] ColumbusComment on above:Performed By: #### POCGLUC #### [facility] [address] [address] [address] Taylor GraciaVLDL OIMQ284.6 mg/dLNoDiley Ridge Medical CenterComment on above: Performed By: #### POCGLUC #### [facility] [address] [address] [address] Taylor Villela [facility] GLUCOSEon 14-66-6625Gwwdmvi [Mass/Vol]252 mg/dL Critically itsd07-127Cxm [facility] ColumbusComment on above:Performed By: #### POCGLUC #### [facility] [address] [address] [address] Taylor GarciaGlucose [Mass/Vol]181 mg/dLCritically vlkn23-954Ukr [facility] ColumbusComment on above:Performed By: #### POCGLUC #### [facility] [address] [address] [address] Taylor Hicks 14(COMP METB)on 18-28-9266Ltjdxhu [Mass/Vol]3.0 g/dL Critically low3.4-5.0The [facility] ColumbusComment on above:Performed By: #### POCGLUC #### [facility] [address] [address] [address] Taylor GarciaAlbumin/Globulin [Mass ratio]0.9 {ratio}NormalThe [facility] Hospital Of ColumbusComment on above:Performed By: #### POCGLUC #### [facility] [address] [place] [address] Dr. Taylor OmerP [Catalytic activity/Vol]41 U/LCritically tvw32-259Kdj [facility] ColumbusComment on above:Performed By: #### POCGLUC #### [facility] [address] [place] [address] Dr. Taylor Meléndez [Catalytic activity/Vol]37 U/BWmiyft07-53Nns [facility] ColumbusComment on above:Performed By: #### POCGLUC #### [facility] [address] [place] [address] Dr. Taylor Araujo gap [Moles/Vol]16.0 mmol/LNormalThe [facility] Comment on above:Performed By: #### POCGLUC #### [facility] [address] [address] [address] Taylor GarciaAST [Catalytic activity/Vol]20 U/LAdxyse76-11Lyz [facility] ColumbusComment on above:Performed By: #### POCGLUC #### [facility] [address] [address] [address] Taylor GarciaBilirubin [Mass/Vol]0.5 mg/dLNormal0.2-1.0The [facility] Comment on above:Performed By: #### POCGLUC #### [facility] [address] [place] [address] Dr. Taylor GarciaCalcium [Mass/Vol]8.9 mg/dLNormal8.5-10.1The [facility] Comment on above:Performed By: #### POCGLUC #### [facility] [address] [place] [address] Dr. Taylor GarciaChloride [Moles/Vol]103 mmol/AUmtxpq42-942Xew [facility] Comment on above:Performed By: #### POCGLUC #### [facility] [address] [place] [address] Dr. Taylor GarciaCO2 [Moles/Vol]22.0 mmol/RYkrvxl00.0-32.0The [facility] Comment on above:Performed By: #### POCGLUC #### [facility] [address] [place] [address] Dr. Taylor GarciaCreatinine [Mass/Vol]0.65 mg/dLCritically low0.70-1.30The [facility] ColumbusComment on above:Performed By: #### POCGLUC #### [facility] [address] [place] [address] Dr. Taylor PulliamGFR-AF MOROCCAN>60Normal>=60The [facility] ColumbusComment on above:Performed By: #### POCGLUC #### [facility] [address] [place] [address] Dr. Taylor PulliamGFR-NON AF MOROCCAN>60Normal>=60The [facility] ColumbusComment on above:Performed By: #### POCGLUC #### [facility] [address] [place] [address] Dr. Taylor GarciaGlobulin (S) [Mass/Vol]3.3 g/dLNormalThe [facility] ColumbusComment on above:Performed By: #### POCGLUC #### [facility] [address] [place] [address] Dr. Taylor GarciaGlucose [Mass/Vol]198 mg/dLCritically yuds73-990Hmq [facility] ColumbusComment on above:Performed By: #### POCGLUC #### [facility] [address] [place] [address] Dr. Taylor GarciaPotassium [Moles/Vol]4.0 mmol/LNormal3.5-5.1The [facility] Comment on above:Performed By: #### POCGLUC #### [facility] [address] [address] [address] Taylor GarciaProtein [Mass/Vol]6.3 g/dLCritically low6.4-8.2[facility] CenterComment on above:Performed By: #### POCGLUC #### [facility] [address] [address] [address] Taylor GarciaSodium [Moles/Vol]137 mmol/PGwnvhl462-285Gfo [facility] Comment on above:Performed By: #### POCGLUC #### [facility] [address] [address] [address] Taylor GarciaUrea nitrogen [Mass/Vol]9.0 mg/dLNormal7.0-18.0The [facility] ColumbusComment on above:Performed By: #### POCGLUC #### [facility] [address] [address] [address] Taylor Courtney nitrogen/Creatinine [Mass ratio]13.8 mg/mgNormalThe [facility] ColumbusComment on above:Performed By: #### POCGLUC #### [facility] [address] [place] [address] Dr. Taylor GarciaAlanine aminotransferase [Enzymatic activity/volume] in Serum or PlasmaOrdered By: Shaikh Swapnil on 89-93-4144MIN [Catalytic activity/Vol]30 U/L 7-52[facility] Medical CenterAlbumin [Mass/volume] in Serum or Plasma by Bromocresol green (BCG) dye binding methoOrdered By: Shaikh Swapnil on 62-67-3061Bddfhoo BCG dye [Mass/Vol]3.5 g/dL3.5-5.7FMercy Health St. Elizabeth Boardman HospitalAlkaline phosphatase [Enzymatic activity/volume] in Serum or PlasmaOrdered By: Shaikh Swapnil on 71-88-8969BNQ [Catalytic activity/Vol]38 U/N37-389HxtdzkbseAshtabula County Medical CenterAspartate aminotransferase [Enzymatic activity/volume] in Serum or PlasmaOrdered By: Shaikh Swapnil on 52-02-8159KPN [Catalytic activity/Vol]17 U/L16-75NxzgkfideAshtabula County Medical CenterBilirubin.total [Mass/volume] in Serum or PlasmaOrdered By: Shaikh Swapnil on 73-71-2011Ennprooky [Mass/Vol]0.6 mg/dL0.3-1.0[facility] Medical CenterCBC AUTO DIFFon 51-62-4672SMIW #0.0 103/ulNormal0.0-0.1The [facility] ColumbusComment on above: Performed By: #### POCGLUC #### [facility] [address] [address] [address] Taylor GarciaBasophils/100 WBC (Bld)0.4 %Normal0.2-2.0[facility] Comment on above:Performed By: #### POCGLUC #### [facility] [address] [address] [address] Taylor Mills #0.1 103/ulNormal0.0-0.7The [facility] ColumbusComment on above: Performed By: #### POCGLUC #### [facility] [address] [address] [address] Taylor Pulliamosinophils/100 WBC (Bld)1.1 %Normal0.9-7.0[facility] Comment on above:Performed By: #### POCGLUC #### [facility] [address] [address] [address] Taylor Pulliamrythrocyte distribution width (RBC) [Ratio]12.7 %Axnomx09.0-15.0 [facility] Medical CenterComment on above:Performed By: #### POCGLUC #### [facility] [address] [address] [address] Taylor GarciaHematocrit (Bld) [Volume fraction]37.3 %Critically low42.0-54.0 [facility] Medical CenterComment on above:Performed By: #### POCGLUC #### [facility] [address] [address] [address] Taylor GarciaHemoglobin (Bld) [Mass/Vol]13.8 g/dLCritically low14.0-18.0The [facility] ColumbusComment on above:Performed By: #### POCGLUC #### [facility] [address] [place] [address] Dr. Taylor Elder #0.05 10e3/ulCritically high0.00-0.03The [facility] Comment on above:Performed By: #### POCGLUC #### [facility] [address] [place] [address] Dr. Taylor Elder %0.7 %Critically high0.0-0.5The [facility] ColumbusComment on above:Performed By: #### POCGLUC #### [facility] [address] [place] [address] Dr. Taylor Del Toro #1.6 103/ulNormal1.2-3.8The [facility] ColumbusComment on above:Performed By: #### POCGLUC #### [facility] [address] [place] [address] Dr. Taylor Solomonhocytes/100 WBC (Bld)22.8 %Nutned85.5-60.0The [facility] ColumbusComment on above:Performed By: #### POCGLUC #### [facility] [address] [place] [address] Dr. Taylor Diaz DIFF REQNONormalThe [facility] Hospital [facility] ColumbusComment on above: Performed By: #### POCGLUC #### [facility] [address] [place] [address] Dr. Taylor Hurst (RBC) [Entitic mass]32.0 rpNnznmb84.9-34.0The [facility] ColumbusComment on above:Performed By: #### POCGLUC #### [facility] [address] [place] [address] Dr. Taylor Marley (RBC) [Mass/Vol]37.0 g/dLCritically high29.9-35.2The [facility] ColumbusComment on above:Performed By: #### POCGLUC #### [facility] [address] [place] [address] Dr. Yilan ChangMCV (RBC) [Entitic vol]86.5 fUHgurns06.0-94.0The [facility] ColumbusComment on above:Performed By: #### POCGLUC #### [facility] [address] [place] [address] Dr. Taylor Guillen #0.6 103/ulNormal0.3-0.8The [facility] ColumbusComment on above:Performed By: #### POCGLUC #### [facility] [address] [place] [address] Dr. Taylor Alvarezocytes/100 WBC (Bld)8.2 %Normal1.7-12.0The [facility] Comment on above:Performed By: #### POCGLUC #### [facility] [address] [place] [address] Dr. Taylor Hansen #4.8 103/ulNormal1.4-6.5The [facility] ColumbusComment on above:Performed By: #### POCGLUC #### [facility] [address] [place] [address] Dr. Taylor Friedutrophils/100 WBC (Bld)66.8 %Rqwpna78.0-75.0The [facility] ColumbusComment on above:Performed By: #### POCGLUC #### [facility] [address] [place] [address] Dr. Taylor Venegas mean volume (Bld) [Entitic vol]10.0 fLNormal9.5-13.5The [facility] ColumbusComment on above:Performed By: #### POCGLUC #### [facility] [address] [place] [address] Dr. Taylor GarciaPLT109 103/ulCritically pzy490-478Elf [facility] ColumbusComment on above:Performed By: #### POCGLUC #### [facility] [address] [place] [address] Dr. Taylor GarciaRBC4.31 106/ulCritically low4.70-6.10The [facility] ColumbusComment on above:Performed By: #### POCGLUC #### [facility] [address] [place] [address] Dr. Taylor GarciaWBC7.2 103/ulNormal4.0-11.0[facility] Medical CenterComment on above: Performed By: #### POCGLUC #### [facility] [address] [address] [address] Taylor GarciaCalcium [Mass/volume] in Serum or PlasmaOrdered By: Shaikh Swapnil on 85-45-6573Anmvgrm [Mass/Vol]8.7 mg/dL8.6-10.3FMercy Health St. Elizabeth Boardman HospitalCarbon dioxide, total [Moles/volume] in Serum or PlasmaOrdered By: Shaikh Swapnil on 29-26-2680VD4 [Moles/Vol]19.8 mmol/L21.0-31.0[facility] Medical CenterChloride [Moles/volume] in Serum or PlasmaOrdered By: Shaikh Swapnil on 01-35-0843Ciddgofd [Moles/Vol]105 mmol/C53-391HmlopxqdgAshtabula County Medical CenterCreatinine [Mass/volume] in Serum or PlasmaOrdered By: Shaikh Swapnil on 46-85-3611Qqjcglcvid [Mass/Vol]0.71 mg/dL0.70-1.30[facility] Medical CenterDIRECT LDLon 02-53-2008Dcgpcvoeoow in LDL [Mass/Vol]73 mg/dLNoGood Samaritan HospitalComment on above:Performed By: #### POCGLUC #### [facility] [address] [address] [address] Taylor GarciaDLDL NORMALSEE [facility] Medical CenterComment on above: Result Comment: <100 mg/dl OPTIMAL 100 - 129 mg/dl NEAR OR ABOVE OPTIMAL 130 - 159 mg/dl BORDERLINE HIGH 160 - 189 mg/dl HIGH >190 mg/dl VERY HIGHPerformed By: #### POCGLUC #### [facility] [address] [place] [address] Dr. Taylor GarciaGLYCOHEMOGLOBIN A1Con 85-73-6164EWA RECOMMENDATIONSEE BELOWHolzer Health SystemComsouthwest regional rehabilitation center on above:Result Comment: ADA RECOMMENDED LIMIT 4.0 - 6.0 ADA THERAPEUTIC TARGET < 7.0 ACTION SUGGESTED > 7.0Performed By: #### POCGLUC #### [facility] [address] [place] [address] Dr. Taylor GarciaGlucose [Mass/Vol]280 mg/dLGerman [facility] on above:Performed By: #### POCGLUC #### [facility] [address] [place] [address] Dr. Taylor GarciaHbA1c (Bld) [Mass fraction]11.4 %Critically high4.5-6.2[facility] on above:Performed By: #### POCGLUC #### [facility] [address] [place] [address] Dr. Taylor GarciaGlobulin Calc (S) [Mass/Vol]Ordered By: Shaikh Swapnil on 18-54-3204Ktsxfnnb (S) [Mass/Vol]2.3 g/dLAshtabula County Medical Center Glucose [Mass/volume] in Serum or PlasmaOrdered By: Shaikh Swapnil on 01-24-2023 Glucose [Mass/Vol]165 mg/qG93-711IbnjdtlijAshtabula County Medical CenterComment on above:ADA recommended reference rangeRandom Glucose Reference Range is dependent on time and content of last meal. Glucose of more than 200 mg/dL in a nonstressed, ambulatory subject supports the diagnosisof Diabetes Mellitus.LAB TESTINGon [id number] HEADERSEE SCANNED REPORT IN [facility] on above:Performed By: #### POCGLUC #### [facility] [address] [place] [address] Dr. Taylor Ordoñez FROM REF LAB01/24/2023[facility] on above:Performed By: #### POCGLUC #### [facility] [address] [place] [address] Dr. Taylor Jarquin TO REF LAB01/24/2023[facility] on above:Performed By: #### POCGLUC #### [facility] [address] [place] [address] Dr. Taylor Shook 81-87-8706Jvklsu [Catalytic activity/Vol]97.0 U/LNormal 73.0-393.0The [facility] ColumbusComment on above:Performed By: #### POCGLUC #### [facility] [address] [place] [address] Dr. Taylor BorregoID PROFILEon 61-24-6396DXMJ-HDL RATIO NORMSMarietta Memorial HospitalComment on above:Result Comment: 3.3 - 4.4 LOW RISK 4.4 - 7.1 AVERAGE RISK 7.1 - 11.0 MODERATE RISK >11.0 HIGH RISKPerformed By: #### POCGLUC #### [facility] [address] [place] [address] Dr. Taylor GarciaCholesterol [Mass/Vol]296 mg/dLCritically high<=200The [facility] ColumbusComment on above:Performed By: #### POCGLUC #### [facility] [address] [place] [address] Dr. Taylor GarciaCholesterol in HDL [Mass/Vol]26 mg/dLCritically wlv44-16Vih [facility] ColumbusComment on above:Performed By: #### POCGLUC #### [facility] [address] [place] [address] Dr. Taylor Yeeesterlorene.total/Cholesterol in HDL [Mass ratio]11.4 {ratio} NormalThe [facility] ColumbusComsouthwest regional rehabilitation center on above:Performed By: #### POCGLUC #### [facility] [address] [place] [address] Dr. Taylor GarciaHDShelly NORMAL> or = 60 mg/dl - LOW CARDIOVASCULAR RISK <40 mg/dl - HIGH CARDIOVASCULAR RISKSt. Vincent HospitalComment on above:Performed By: #### POCGLUC #### [facility] [address] [place] [address] Dr. Taylor GarciaLDL CALC NORMALSEE [facility] Medical CenterComment on above:Result Comment: <100 mg/dl OPTIMAL 100 - 129 mg/dl NEAR OR ABOVE OPTIMAL 130 - 159 mg/dl BORDERLINE HIGH 160 - 189 mg/dl HIGH >190 mg/dl VERY HIGH Performed By: #### POCGLUC #### [facility] [address] [address] [address] Taylor GarciaTriglyceride [Mass/Vol]935 mg/dLCritically high<=150[facility] on above:Performed By: #### POCGLUC #### [facility] [address] [address] [address] Taylor GarciaVLDL WUTR997.0 mg/dLNormalThMain Campus Medical CenterComsouthwest regional rehabilitation center on above: Performed By: #### POCGLUC #### [facility] [address] [address] [address] Taylor GarciaLipase [Enzymatic activity/volume] in Serum or PlasmaOrdered By: Shaikh Swapnil on 49-18-7906Tqryxz [Catalytic activity/Vol]34.0 U/L11.0-82.0 [facility] CenterNo Panel InformationOrdered By: Shaikh Swapnil on 87-43-2047Cdujfqioj GFR (CKD-EPI)> 60.0 mL/MinAshtabula County Medical CenterPharmacy Creatinine Clearance (ChemN/[facility] POINT OF CARE GLUCOSEon 54-13-2058Tjjaozn [Mass/Vol]171 mg/dLCritically high 74-106[facility] on above:Performed By: #### POCGLUC #### [facility] [address] [address] [address] Taylor GarciaGlucose [Mass/Vol]168 mg/dLCritically rewr93-518Ywc [facility]Comsouth[facility] center on above:Performed By: #### POCGLUC #### [facility] [address] [address] [address] Taylor GarciaGlucose [Mass/Vol]249 mg/dLCritically fpck34-838ZnuMetrohealth Cleveland Heights Medical CenterComsouthwest regional rehabilitation center on above:Performed By: #### POCGLUC #### [facility] [address] [address] [address] Taylor GarciaGlucose [Mass/Vol]126 mg/dLCritically dzer79-542QgzMetrohealth Cleveland Heights Medical CenterComment on above:Performed By: #### POCGLUC #### [facility] [address] [address] [address] Taylor GarciaGlucose [Mass/Vol]166 mg/dLCritically gakz28-097TvuMetrohealth Cleveland Heights Medical CenterComment on above:Performed By: #### POCGLUC #### [facility] [address] [address] [address] Taylor GarciaGlucose [Mass/Vol]157 mg/dLCritically hwzf82-818WeyMetrohealth Cleveland Heights Medical CenterComment on above:Performed By: #### POCGLUC #### [facility] [address] [address] [address] Taylor GarciaGlucose [Mass/Vol]156 mg/dLCritically zyht17-467UuqMetrohealth Cleveland Heights Medical CenterComment on above:Performed By: #### POCGLUC #### [facility] [address] [address] [address] Taylor GarciaGlucose [Mass/Vol]97 mg/eCVcbkkh59-695VbaMetrohealth Cleveland Heights Medical Center Comment on above:Performed By: #### POCGLUC #### [facility] [address] [address] [address] Taylor GarciaGlucose [Mass/Vol]84 mg/sWAmdofd43-070JruMetrohealth Cleveland Heights Medical Center Comment on above:Performed By: #### POCGLUC #### [facility] [address] [address] [address] Taylor GarciaGlucose [Mass/Vol]74 mg/cROjxibp79-947YvxMetrohealth Cleveland Heights Medical Center Comment on above:Performed By: #### POCGLUC #### [facility] [address] [address] [address] Taylor GarciaGlucose [Mass/Vol]79 mg/uKEymfxd29-784NtbMetrohealth Cleveland Heights Medical Center Comment on above:Performed By: #### POCGLUC #### [facility] [address] [address] [address] Taylor GarciaGlucose [Mass/Vol]117 mg/dLCritically ofli11-703JssMetrohealth Cleveland Heights Medical CenterComment on above:Performed By: #### POCGLUC #### [facility] [address] [address] [address] Yilan ChangGlucose [Mass/Vol]134 mg/dLCritically wyya67-237Ufa [facility] ColumbusComment on above:Performed By: #### POCGLUC #### [facility] [address] [address] [address] Taylor GarciaGlucose [Mass/Vol]163 mg/dLCritically ycqu22-056Zip [facility] ColumbusComment on above:Performed By: #### POCGLUC #### [facility] [address] [place] [address] Dr. Taylor GarciaPROF CHEM 8 (BAS METB)on 51-09-0527Nkguw gap [Moles/Vol]14.4 mmol/LNormalThe [facility] ColumbusComment on above:Result Comment: [facility]Performed By: #### POCGLUC #### [facility] [address] [place] [address] Dr. Taylor GarciaCalcium [Mass/Vol]8.9 mg/dLNormal8.5-10.1The [facility] Comment on above:Result Comment: [facility] systemPerformed By: #### POCGLUC #### [facility] [address] [place] [address] Dr. Taylor GarciaChloride [Moles/Vol]105 mmol/WDifvpw83-911Jzt [facility] Comment on above:Result Comment: [facility] systemPerformed By: #### POCGLUC #### [facility] [address] [place] [address] Dr. Taylor GarciaCO2 [Moles/Vol]20.2 mmol/LCritically low21.0-32.0The [facility] ColumbusComsouthwest regional rehabilitation center on above:Result Comment: [facility] systemPerformed By: #### POCGLUC #### [facility] [address] [place] [address] Dr. Taylor GarciaCreatinine [Mass/Vol]0.69 mg/dLCritically low0.70-1.30The [facility] ColumbusComment on above:Result Comment: [facility] systemPerformed By: #### POCGLUC #### [facility] [address] [address] [address] Vazquez ChangEGFR-AF MOROCCAN>60Normal>=60The [facility] Of ColumbusComment on above:Performed By: #### POCGLUC #### [facility] [address] [address] [address] Vazquez ChangEGFR-NON AF MOROCCAN>60Normal>=60The [facility] Of ColumbusComment on above:Performed By: #### POCGLUC #### [facility] [address] [address] [address] Taylor GarciaGlucose [Mass/Vol]103 mg/lYZrgnwh02-221Elq [facility] Comment on above:Result Comment: [facility]formed By: #### POCGLUC #### [facility] [address] [address] [address] Taylor GarciaPotassium [Moles/Vol]3.6 mmol/LNormal3.5-5.1The [facility] Comment on above:Result Comment: [facility]Performed By: #### POCGLUC #### [facility] [address] [address] [address] Taylor GarciaSodium [Moles/Vol]136 mmol/BFojytb332-837Nzd [facility] Comment on above:Result Comment: [facility] [place]Performed By: #### POCGLUC #### [facility] [address] [address] [address] Taylor GarciaUrea nitrogen [Mass/Vol]6.0 mg/dLCritically low7.0-18.0[facility] CenterComment on above:Result Comment: [facility] [place]Performed By: #### POCGLUC #### [facility] [address] [address] [address] Taylor GarciaUrea nitrogen/Creatinine [Mass ratio]8.7 mg/mgNormalThe [facility] Of ColumbusComment on above:Performed By: #### POCGLUC #### [facility] [address] [address] [address] Yilan ChangPotassium [Moles/volume] in Serum or PlasmaOrdered By: Shaikh Swapnil on 86-41-7551Vjnadeiqk [Moles/Vol]3.6 mmol/L3.5-5.1FMercy Health St. Elizabeth Boardman HospitalProtein [Mass/volume] in Serum or PlasmaOrdered By: Shaikh Swapnil on 44-08-8528Hdcxxbc [Mass/Vol]5.8 g/dL6.4-8.9[facility] Serum or plasma albumin/globulin mass ratioOrdered By: Shaikh Swapnil on 18-47-6827Lmwzgkn/Globulin [Mass ratio]1.5 {ratio}[facility]tering [facility] Hospitalerum or plasma anion gap determinationOrdered By: Shaikh Swapnil on 94-70-7461Ypdjr gap [Moles/Vol]13.8 mmol/L6.0-15.0[facility] Hospitalodium [Moles/volume] in Serum or PlasmaOrdered By: Shaikh Swapnil on 59-02-8594Fydazy [Moles/Vol]135 mmol/J034-456NbcjfzobnAshtabula County Medical Center Urea nitrogen [Mass/volume] in Serum or PlasmaOrdered By: Shaikh Swapnil on 85-68-5953Pyjf nitrogen [Mass/Vol]6 mg/dL7-25[facility] Alanine aminotransferase [Enzymatic activity/volume] in Serum or PlasmaOrdered By: Shaikh Swapnil on 80-82-2982SXQ [Catalytic activity/Vol]45 U/L7-52[facility] CenterAlbumin [Mass/volume] in Serum or Plasma by Bromocresol green (BCG) dye binding methoOrdered By: Shaikh Swapnil on 56-26-3853Fvzooay BCG dye [Mass/Vol]4.0 g/dL3.5-5.7FMercy Health St. Elizabeth Boardman HospitalComment on above: Delta: 5.0 on 01/22/23-8Alkaline phosphatase [Enzymatic activity/volume] in Serum or PlasmaOrdered By: Shaikh Swapnil on 27-13-8009FQA [Catalytic activity/Vol]40 U/H79-443TagvmceasAshtabula County Medical CenterAspartate aminotransferase [Enzymatic activity/volume] in Serum or PlasmaOrdered By: Shaikh Swapnil on 27-05-2687UWV [Catalytic activity/Vol]See kebiyur17-18LrrxasprlAshtabula County Medical CenterComment on above:Specimen hemolyzed, redraw requested Bilirubin.total [Mass/volume] in Serum or PlasmaOrdered By: Shaikh Swapnil on 21-67-8266Pecqzvrmo [Mass/Vol]1.1 mg/dL0.3-1.0[facility] CBC AUTO DIFFon 32-40-2591WJZR #0.0 103/ulNormal0.0-0.1[facility] Comment on above:Performed By: #### CBC #### [facility] [address] [place] [address] Dr. Taylor GarciaBasophils/100 WBC (Bld)0.3 %Normal0.2-2.0[facility] Comment on above:Performed By: #### CBC #### [facility] [address] [address] [address] Taylor Mills #0.1 103/ulNormal0.0-0.7The [facility] Of ColumbusComment on above: Performed By: #### CBC #### [facility] [address] [place] [address] Dr. Taylor Pulliamosinophils/100 WBC (Bld)0.6 %Critically low0.9-7.0[facility] Medical CenterComment on above:Performed By: #### CBC #### [facility] [address] [place] [address] Dr. Taylor Pulliamrythrocyte distribution width (RBC) [Ratio]12.8 %Bsakcr50.0-15.0 [facility] Medical CenterComment on above:Performed By: #### CBC #### [facility] [address] [place] [address] Dr. Taylor GarciaHematocrit (Bld) [Volume fraction]38.1 %Critically low42.0-54.0 [facility] CenterComment on above:Performed By: #### CBC #### [facility] [address] [place] [address] Dr. Taylor GarciaHemoglobin (Bld) [Mass/Vol]13.3 g/dLCritically low14.0-18.0The [facility] Of ColumbusComment on above:Performed By: #### CBC #### [facility] [address] [address] [address] Taylor Elder #0.07 10e3/ulCritically high0.00-0.03The [facility] Comment on above:Performed By: #### CBC #### [facility] [address] [address] [address] Taylor Elder %0.7 %Critically high0.0-0.5The [facility]S Hospital Of ColumbusComment on above:Performed By: #### CBC #### [facility] [address] [place] [address] Dr. Taylor Del Toro #1.8 103/ulNormal1.2-3.8The [facility] Hospital Of ColumbusComment on above:Performed By: #### CBC #### [facility] [address] [place] [address] Dr. Taylor Solomonhocytes/100 WBC (Bld)16.6 %Critically low20.5-60.0The [facility] Hospital Of ColumbusComment on above:Performed By: #### CBC #### [facility] [address] [place] [address] Dr. Taylor DamonUAL DIFF REQNONormalThe Children'S Hospital Of ColumbusComment on above: Performed By: #### CBC #### [facility] [address] [place] [address] Dr. Taylor Marley (RBC) [Entitic mass]30.2 toYsggje09.9-34.0The [facility]S Hospital Of ColumbusComment on above:Performed By: #### CBC #### [facility] [address] [place] [address] Dr. Taylor Marley (RBC) [Mass/Vol]34.9 g/iGGukzsf66.9-35.2The [facility] Hospital Of ColumbusComment on above:Performed By: #### CBC #### [facility] [address] [address] [address] Taylor MarleyV (RBC) [Entitic vol]86.6 fRHdiefa41.0-94.0The [facility] Hospital Of ColumbusComment on above:Performed By: #### CBC #### [facility] [address] [place] [address] Dr. Taylor Guillen #0.7 103/ulNormal0.3-0.8The [facility] Hospital Of ColumbusComment on above:Performed By: #### CBC #### [facility] [address] [place] [address] Dr. Taylor Alvarezocytes/100 WBC (Bld)6.9 %Normal1.7-12.0[facility] Comment on above:Performed By: #### CBC #### [facility] [address] [place] [address] Dr. Taylor Hansen #7.9 103/ulCritically high1.4-6.5The [facility] Comment on above:Performed By: #### CBC #### [facility] [address] [place] [address] Dr. Taylor Friedutrophils/100 WBC (Bld)74.9 %Xgehqf02.0-75.0The [facility]S Hospital Of ColumbusComment on above:Performed By: #### CBC #### [facility] [address] [place] [address] Dr. Taylor Tomaslet mean volume (Bld) [Entitic vol]10.8 fLNormal9.5-13.5The [facility] Hospital Of ColumbusComment on above:Performed By: #### CBC #### [facility] [address] [place] [address] Dr. Taylor GarciaPLT123 103/ulCritically tei136-534Ayp [facility] Of ColumbusComment on above:Performed By: #### CBC #### [facility] [address] [place] [address] Dr. Taylor GarciaRBC4.40 106/ulCritically low4.70-6.10The [facility] Of ColumbusComment on above:Performed By: #### CBC #### [facility] [address] [address] [address] Taylor GarciaWBC10.6 103/ulNormal4.0-11.0The [facility] Hospital Of ColumbusComment on above:Performed By: #### CBC #### [facility] [address] [address] [address] Taylor GarciaCalcium [Mass/volume] in Serum or PlasmaOrdered By: Shaikh Swapnil on 55-82-2561Fpejaqz [Mass/Vol]8.9 mg/dL8.6-10.3FMercy Health St. Elizabeth Boardman HospitalCarbon dioxide, total [Moles/volume] in Serum or PlasmaOrdered By: Shaikh Swapnil on 97-15-1017IB1 [Moles/Vol]21.8 mmol/L21.0-31.0[facility] CenterChloride [Moles/volume] in Serum or PlasmaOrdered By: Shaikh Swapnil on 63-96-6184Lvbqvymm [Moles/Vol]103 mmol/WZlmsia70-457GydmttlrwAshtabula County Medical CenterComment on above:Performed By: #### POCGLUC #### [facility] [address] [address] [address] Taylor GarciaCreatinine [Mass/volume] in Serum or PlasmaOrdered By: Shaikh Swapnil on 89-06-0734Lsdcheqwod [Mass/Vol]0.63 mg/dL0.70-1.30[facility] CenterDIRECT LDLon 74-53-7573Aaxdjhipeaq in LDL [Mass/Vol]67 mg/dLNormal [facility] CenterComment on above:Performed By: #### POCGLUC #### [facility] [address] [address] [address] Taylor GarciaDLDL NORMALSEE BELOWNoDiley Ridge Medical CenterComment on above: Result Comment: <100 mg/dl OPTIMAL 100 - 129 mg/dl NEAR OR ABOVE OPTIMAL 130 - 159 mg/dl BORDERLINE HIGH 160 - 189 mg/dl HIGH >190 mg/dl VERY HIGHPerformed By: #### POCGLUC #### [facility] [address] [address] [address] Taylor GarciaGLYCOHEMOGLOBIN A1Con 22-27-2441FJS RECOMMENDATIONSEE BELOWNormal [facility] CenterComsouthwest regional rehabilitation center on above:Result Comment: ADA RECOMMENDED LIMIT 4.0 - 6.0 ADA THERAPEUTIC TARGET < 7.0 ACTION SUGGESTED > 7.0Performed By: #### POCGLUC #### [facility] [address] [address] [address] Taylor GarciaGlucose [Mass/Vol]266 mg/dLNormalThe [facility] Hospital Of ColumbusComment on above:Performed By: #### POCGLUC #### [facility] [address] [address] [address] Taylor GarciaHbA1c (Bld) [Mass fraction]10.9 %Critically high4.5-6.2The [facility] ColumbusComsouthwest regional rehabilitation center on above:Performed By: #### POCGLUC #### [facility] [address] [address] [address] Taylor GarciaGlobulin Calc (S) [Mass/Vol]Ordered By: Shaikh Swapnil on 25-27-5187Iwloazyg (S) [Mass/Vol]2.5 g/dLAshtabula County Medical Center Glucose [Mass/volume] in Serum or PlasmaOrdered By: Shaikh Swapnil on 01-23-2023 Glucose [Mass/Vol]193 mg/nF21-296PymnwkhaiAshtabula County Medical CenterComment on above:Delta: 65 on 01/23/23-1635ADA recommended reference rangeRandom Glucose Reference Range is dependent on time and content of last meal. Glucose of more than 200 mg/dL in a nonstressed, ambulatory subject supports the diagnosis of Diabetes Mellitus.LIPID PROFILEon 55-55-8067TPKV-HDL RATIO NORMSEE BELOWNormal [facility] CenterComsouthwest regional rehabilitation center on above:Result Comment: 3.3 - 4.4 LOW RISK 4.4 - 7.1 AVERAGE RISK 7.1 - 11.0 MODERATE RISK >11.0 HIGH RISKPerformed By: #### POCGLUC #### [facility] [address] [address] [address] Taylor GarciaCholesterol [Mass/Vol]320 mg/dLCritically high<=200The Vandana HospitalComment on above:Performed By: #### POCGLUC #### [facility] [address] [address] [address] Taylor GarciaCholesterol in HDL [Mass/Vol]27 mg/dLCritically dkr05-27Jlv [facility] ColumbusComment on above:Performed By: #### POCGLUC #### [facility] [address] [address] [address] Taylor Yeeesterol.total/Cholesterol in HDL [Mass ratio]11.9 {ratio} NormalMetrohealth Cleveland Heights Medical CenterComment on above:Performed By: #### POCGLUC #### [facility] [address] [address] [address] Taylor Puentes NORMAL> or = 60 mg/dl - LOW CARDIOVASCULAR RISK <40 mg/dl - HIGH CARDIOVASCULAR RISKNoDiley Ridge Medical CenterComment on above:Performed By: #### POCGLUC #### [facility] [address] [address] [address] Taylor GarciaTriglyceride [Mass/Vol]1599 mg/dLCritically high<=150The [facility] Hospital Of ColumbusComment on above:Performed By: #### POCGLUC #### [facility] [address] [address] [address] Taylor GarciaVLDL BVAU819.8 mg/dLNoDiley Ridge Medical CenterComment on above: Performed By: #### POCGLUC #### [facility] [address] [address] [address] Taylor Johnson Panel InformationOrdered By: Shaikh Swapnil on 01-23-2023 Estimated GFR (CKD-EPI)> 60.0 mL/MinAshtabula County Medical CenterPharmacy Creatinine Clearance (ChemN/[facility] HospitalPOINT OF CARE GLUCOSEon 62-27-3245Gujzndb [Mass/Vol]224 mg/dLCritically ovbw33-955Ilv [facility] ColumbusComment on above:Performed By: #### POCGLUC #### [facility] [address] [address] [address] Taylor GarciaGlucose [Mass/Vol]142 mg/dLCritically myyg91-189Qas Vandana HospitalComment on above:Performed By: #### POCGLUC #### [facility] [address] [address] [address] Taylor GarciaGlucose [Mass/Vol]102 mg/yIPxnpph81-320SquMetrohealth [facility] Center Comment on above:Performed By: #### POCGLUC #### [facility] [address] [address] [address] Taylor GarciaGlucose [Mass/Vol]100 mg/sRUbvlbo72-647OuyMetrohealth Cleveland Heights Medical Center Comment on above:Performed By: #### POCGLUC #### [facility] [address] [address] [address] Taylor GarciaGlucose [Mass/Vol]84 mg/qKEhbbns69-488SgkMetrohealth [facility] Heights Medical Center Comment on above:Performed By: #### POCGLUC #### [facility] [address] [address] [address] Taylor GarciaGlucose [Mass/Vol]72 mg/dLCritically jbr07-661QpkMetrohealth Cleveland Heights Medical CenterComment on above:Performed By: #### POCGLUC #### [facility] [address] [address] [address] Taylor GarciaGlucose [Mass/Vol]69 mg/dLCritically ite77-245QokMetrohealth Cleveland Heights Medical CenterComsouthwest regional rehabilitation center on above:Performed By: #### POCGLUC #### [facility] [address] [address] [address] Taylor GarciaGlucose [Mass/Vol]78 mg/oARkarla89-807FmbMetrohealth Cleveland Heights Medical Center Comment on above:Performed By: #### POCGLUC #### [facility] [address] [address] [address] Taylor GarciaGlucose [Mass/Vol]114 mg/dLCritically hllo28-747AtlMetrohealth Cleveland Heights Medical CenterComsouthwest regional rehabilitation center on above:Performed By: #### POCGLUC #### [facility] [address] [address] [address] Taylor GarciaGlucose [Mass/Vol]185 mg/dLCritically ogqd16-874IlwMetrohealth Cleveland Heights Medical CenterComment on above:Performed By: #### POCGLUC #### [facility] [address] [address] [address] Taylor GarciaGlucose [Mass/Vol]230 mg/dLCritically glnv10-202Wsb [facility] ColumbusComment on above:Performed By: #### POCGLUC #### [facility] [address] [address] [address] Taylor GarciaGlucose [Mass/Vol]253 mg/dLCritically gkhe85-027Yby [facility] ColumbusComment on above:Performed By: #### POCGLUC #### [facility] [address] [address] [address] Taylor GarciaPROF CHEM 8 (BAS METB)on 86-44-2976Cramn gap [Moles/Vol]13.1 mmol/LNormalThe [facility]ullough-Hyde Memorial Hospitalment on above:Performed By: #### POCGLUC #### [facility] [address] [address] [address] Taylor GarciaCalcium [Mass/Vol]8.9 mg/dLNormal8.5-10.1The [facility] Comment on above:Performed By: #### POCGLUC #### [facility] [address] [address] [address] Taylor GarciaChloride [Moles/Vol]103 mmol/JRfoaiv96-973Ble [facility] Comment on above:Performed By: #### POCGLUC #### [facility] [address] [address] [address] Taylor GarciaCO2 [Moles/Vol]21.8 mmol/TNbhgra62.0-32.0[facility] Comment on above:Performed By: #### POCGLUC #### [facility] [address] [address] [address] Taylor GarciaCreatinine [Mass/Vol]0.63 mg/dLCritically low0.70-1.30The [facility]de Memorial Hospitalment on above:Performed By: #### POCGLUC #### [facility] [address] [address] [address] Vazquez ChangEGFR-AF MOROCCAN>60Normal>=60The Spartanburg HospitalComment on above:Performed By: #### POCGLUC #### [facility] [address] [address] [address] Taylor PulliamGFR-NON AF MOROCCAN>60Normal>=60The [facility] Hospital Of ColumbusComment on above:Performed By: #### POCGLUC #### [facility] [address] [address] [address] Taylor GarciaGlucose [Mass/Vol]193 mg/dLCritically rukn20-719Dfn [facility] ColumbusComment on above:Performed By: #### POCGLUC #### [facility] [address] [address] [address] Taylor GarciaPotassium [Moles/Vol]3.9 mmol/LNormal3.5-5.1The [facility] Comment on above:Performed By: #### POCGLUC #### [facility] [address] [address] [address] Taylor GarciaSodium [Moles/Vol]134 mmol/LCritically wuy780-289Fpb [facility] ColumbusComment on above:Performed By: #### POCGLUC #### [facility] [address] [address] [address] Taylor GarciaUrea nitrogen [Mass/Vol]6.0 mg/dLCritically low7.0-18.0The [facility] Hospital Of ColumbusComment on above:Performed By: #### POCGLUC #### [facility] [address] [address] [address] Taylor GarciaUrea nitrogen/Creatinine [Mass ratio]9.5 mg/mgNormalThe [facility] Hospital Of ColumbusComment on above:Performed By: #### POCGLUC #### [facility] [address] [address] [address] Taylor Lobatoon gap [Moles/Vol]12.8 mmol/LNormalThe [facility] Comment on above:Performed By: #### POCGLUC #### [facility] [address] [address] [address] Taylor GarciaCalcium [Mass/Vol]9.2 mg/dLNormal8.5-10.1[facility] Comment on above:Performed By: #### POCGLUC #### [facility] [address] [address] [address] Taylor GarciaCO2 [Moles/Vol]22.6 mmol/PDvuknb62.0-32.0The [facility] Comment on above:Performed By: #### POCGLUC #### [facility] [address] [place] [address] Dr. Taylro GarciaCreatinine [Mass/Vol]0.72 mg/dLNormal0.70-1.30The [facility] Hospital Of ColumbusComment on above:Performed By: #### POCGLUC #### [facility] [address] [place] [address] Dr. Taylor GarciaGlucose [Mass/Vol]65 mg/dLCritically hgy80-233Dix [facility] ColumbusComment on above:Performed By: #### POCGLUC #### [facility] [address] [place] [address] Dr. Taylor GarciaPotassium [Moles/Vol]3.4 mmol/LCritically low3.5-5.1The [facility] Hospital Of ColumbusComment on above:Performed By: #### POCGLUC #### [facility] [address] [place] [address] Dr. Taylor GarciaSodium [Moles/Vol]135 mmol/LCritically ypi293-169Spj [facility] ColumbusComment on above:Performed By: #### POCGLUC #### [facility] [address] [place] [address] Dr. Taylor GarciaUrea nitrogen [Mass/Vol]7.0 mg/dLNormal7.0-18.0The [facility]S Hospital Of ColumbusComment on above:Performed By: #### POCGLUC #### [facility] [address] [place] [address] Dr. Taylor Courtney nitrogen/Creatinine [Mass ratio]9.7 mg/mgNormalThe [facility]S Hospital Of ColumbusComment on above:Performed By: #### POCGLUC #### [facility] [address] [place] [address] Dr. Taylor GarciaPotassium [Moles/volume] in Serum or PlasmaOrdered By: Shaikh Swapnil on 73-71-1935Vtzhpbkty [Moles/Vol]3.9 mmol/L3.5-5.1FMercy Health St. Elizabeth Boardman HospitalComment on above:Hemolysis is present at a level that could interfere with the result.Protein [Mass/volume] in Serum or PlasmaOrdered By: Shaikh Swapnil on 10-97-6313Thlmiqe [Mass/Vol]6.5 g/dL6.4-8.9[facility] Hospitalerum or plasma albumin/globulin mass ratioOrdered By: Shaikh Swapnil on 06-89-2216Gossnbm/Globulin [Mass ratio]1.6 {ratio}[facility] Hospitalerum or plasma anion gap determinationOrdered By: Shaikh Swapnil on 72-10-5415Kufcw gap [Moles/Vol]13.1 mmol/L6.0-15.0[facility] Hospitalodium [Moles/volume] in Serum or PlasmaOrdered By: Shaikh Swapnil on 80-04-2306Mmirhs [Moles/Vol]134 mmol/I403-796DyzppgeheAshtabula County Medical Center Urea nitrogen [Mass/volume] in Serum or PlasmaOrdered By: Shaikh Swapnil on 71-42-7845Ctay nitrogen [Mass/Vol]6 mg/dL7-25[facility] Alanine aminotransferase [Enzymatic activity/volume] in Serum or PlasmaOrdered By: NON STAFF on 68-01-6042QRB [Catalytic activity/Vol]75 U/L7-52[facility] CenterAlbumin [Mass/volume] in Serum or Plasma by Bromocresol green (BCG) dye binding methoOrdered By: NON STAFF on 15-82-9445Ldknqqm BCG dye [Mass/Vol]5.0 g/dL3.5-5.7FMercy Health St. Elizabeth Boardman HospitalAlkaline phosphatase [Enzymatic activity/volume] in Serum or PlasmaOrdered By: NON STAFF on 37-50-0000DBS [Catalytic activity/Vol]60 U/G18-220HyfdxnwmtAshtabula County Medical CenterAspartate aminotransferase [Enzymatic activity/volume] in Serum or Plasma Ordered By: NON STAFF on 59-31-6223PSH [Catalytic activity/Vol]22 U/L13-39 [facility] CenterBilirubin.total [Mass/volume] in Serum or PlasmaOrdered By: NON STAFF on 55-67-1570Lyhhvxuqm [Mass/Vol]1.1 mg/dL0.3-1.0 [facility] CenterCBC AUTO DIFFon 00-79-7518VCCA #0.1 103/ul Normal0.0-0.1The [facility] Hospital Of ColumbusComment on above:Performed By: #### POCGLUC #### [facility] [address] [address] [address] Taylor GarciaBasophils/100 WBC (Bld)0.4 %Normal0.2-2.0The [facility] Comment on above:Performed By: #### POCGLUC #### [facility] [address] [address] [address] Vazquez ChangEO #0.0 103/ulNormal0.0-0.7The [facility]S Hospital Of ColumbusComment on above: Performed By: #### POCGLUC #### [facility] [address] [address] [address] Taylor Pulliamosinophils/100 WBC (Bld)0.2 %Critically low0.9-7.0The [facility]S Hospital Of ColumbusComment on above:Performed By: #### POCGLUC #### [facility] [address] [address] [address] Taylor Pulliamrythrocyte distribution width (RBC) [Ratio]12.4 %Kyhlbx43.0-15.0 The [facility]S Hospital Of ColumbusComment on above:Performed By: #### POCGLUC #### [facility] [address] [address] [address] Taylor GarciaHematocrit (Bld) [Volume fraction]44.1 %Ytyunu29.0-54.0The [facility] Hospital Of ColumbusComment on above:Performed By: #### POCGLUC #### [facility] [address] [address] [address] Taylor GarciaHemoglobin (Bld) [Mass/Vol]16.9 g/kVLdzdmt72.0-18.0The [facility] HospitalComment on above:Performed By: #### POCGLUC #### [facility] [address] [address] [address] Taylor Elder #0.11 10e3/ulCritically high0.00-0.03The [facility] on above:Performed By: #### POCGLUC #### [facility] [address] [address] [address] Taylor Elder %0.8 %Critically high0.0-0.5The [facility]S Hospital Of ColumbusComment on above:Performed By: #### POCGLUC #### [facility] [address] [address] [address] Taylor Del Toro #1.3 103/ulNormal1.2-3.8The [facility] ColumbusComment on above:Performed By: #### POCGLUC #### [facility] [address] [address] [address] Taylor Solomonhocytes/100 WBC (Bld)9.7 %Critically low20.5-60.0The [facility]S Hospital Of ColumbusComment on above:Performed By: #### POCGLUC #### [facility] [address] [address] [address] Taylor DamonUAL DIFF REQNONormalThe Children'S Hospital Of ColumbusComment on above: Performed By: #### POCGLUC #### [facility] [address] [address] [address] Taylor Marley (RBC) [Entitic mass]32.1 seAnsnzc03.9-34.0The [facility] Hospital Of ColumbusComment on above:Performed By: #### POCGLUC #### [facility] [address] [address] [address] Taylor Marley (RBC) [Mass/Vol]38.3 g/dLCritically high29.9-35.2The [facility] Of ColumbusComment on above:Performed By: #### POCGLUC #### [facility] [address] [address] [address] Taylor Marley (RBC) [Entitic vol]83.8 aWSsebce05.0-94.0The [facility] Hospital Of ColumbusComment on above:Performed By: #### POCGLUC #### [facility] [address] [place] [address] Dr. Taylor Guillen #0.9 103/ulCritically high0.3-0.8The [facility] Comment on above:Performed By: #### POCGLUC #### [facility] [address] [place] [address] Dr. Taylor Alvarezocytes/100 WBC (Bld)6.7 %Normal1.7-12.0The [facility] Comment on above:Performed By: #### POCGLUC #### [facility] [address] [place] [address] Dr. Taylor Hansen #11.1 103/ulCritically high1.4-6.5The [facility] Comment on above:Performed By: #### POCGLUC #### [facility] [address] [place] [address] Dr. Taylor Friedutrophils/100 WBC (Bld)82.2 %Critically high43.0-75.0The [facility] Hospital Of ColumbusComment on above:Performed By: #### POCGLUC #### [facility] [address] [place] [address] Dr. Taylor Venegas mean volume (Bld) [Entitic vol]9.6 fLNormal9.5-13.5The [facility] Hospital Of ColumbusComment on above:Performed By: #### POCGLUC #### [facility] [address] [place] [address] Dr. Taylor GarciaPLT161 103/slVdcwge159-746Onz [facility] Hospital Of ColumbusComment on above: Performed By: #### POCGLUC #### [facility] [address] [place] [address] Dr. Taylor GarciaRBC5.54 106/ulNormal4.70-6.10The [facility] Hospital Of ColumbusComment on above:Performed By: #### POCGLUC #### [facility] [address] [place] [address] Dr. Taylor GarciaWBC13.5 103/ulCritically high4.0-11.0The [facility] Of ColumbusComment on above:Performed By: #### POCGLUC #### [facility] [address] [address] [address] Taylor GarciaCT ABD/PELVIS WO CONon 16-33-1968YJ ABD/PELVIS WO CONEXAMINATION: CT ABD/PELVIS WO CON, 01/22/2023 2:49 PM [...] Electronically authenticated by: BRIGITTE BROWN Date: 2023-01-22 16:08[facility] HospitalCULTURE BLOODon 83-08-1698Abwqdnfebyp examination of blood, cultureCulture Observations: NO GROWTH AT 5 DAYS. Isolate 1 BC_BA_SimeonMercy Memorial HospitalComsouthwest regional rehabilitation center on above:Performed By: #### POCGLUC #### [facility] [address] [place], [place] [address] Dr. Taylor GarciaMicroscopic examination of blood, cultureCulture Observations: NO GROWTH AT 5 DAYS. Isolate 1 BC_BA_SimeonMercy Memorial HospitalComment on above:Performed By: #### POCGLUC #### [facility] [address] [address] [address] Taylor GarciaCalcium [Mass/volume] in Serum or PlasmaOrdered By: NON STAFF on 78-94-4599Trykomo [Mass/Vol]9.9 mg/dL8.6-10.3FMercy Health St. [facility] Carbon dioxide, total [Moles/volume] in Serum or PlasmaOrdered By: NON STAFF on 50-56-5311GJ2 [Moles/Vol]21.5 mmol/L21.0-31.0[facility] Chloride [Moles/volume] in Serum or PlasmaOrdered By: NON STAFF on 01-22-2023 Chloride [Moles/Vol]95 mmol/S31-751BsoznziprAshtabula County Medical CenterCovid-19 PCR (CVDTBH)on 75-29-2844VGIB-CoV-2 (COVID-19) RNA HEIDY+probe Ql (Unsp spec)Not detectedNormalNOT DETECTEDThe [facility] on above:Result Comment: When diagnostic testing is negative, the [...] for this test is supported by the Pulp Grinder of Health and Human Service's declaration that circumstances exist to justify the emergency use of in vitro diagnostics for the detection and/or diagnosis of the virus that causes COVID-19. This EUA will remain in effect for the duration of the COVID-19 declaration justifying emergency of IVDs, unless it is terminated or revoked by the FDA (after which the test may no longer be used).Performed By: #### POCGLUC #### [facility] [address] [place], [place] [address] Dr. Taylor GarciaCreatinine [Mass/volume] in Serum or PlasmaOrdered By: NON STAFF on 71-29-1922Olcjciksmo [Mass/Vol]0.94 mg/dL0.70-1.30[facility] CenterDIRECT LDLon 09-28-1429Rdygifeexef in LDL [Mass/Vol]137 mg/dLSt. Vincent HospitalComment on above:Performed By: #### POCGLUC #### [facility] [address] [place] [address] Dr. Taylor Cruz NORMALSEE BELOWSt. Vincent HospitalComment on above: Result Comment: <100 mg/dl OPTIMAL 100 - 129 mg/dl NEAR OR ABOVE OPTIMAL 130 - 159 mg/dl BORDERLINE HIGH 160 - 189 mg/dl HIGH >190 mg/dl VERY HIGHPerformed By: #### POCGLUC #### [facility] [address] [place] [address] Dr. Taylor Rodriguez URINE PROFILEon 09-93-0896Bbnovmjnp Ql (U)NegativeNormal NEGATIVEMetrohealth Cleveland Heights Medical CenterComment on above:Performed By: #### POCGLUC #### [facility] [address] [address] [address] Taylor GarciaClarity (U)CLEARNormalCLEARMetrohealth Cleveland Heights Medical CenterComment on above: Performed By: #### POCGLUC #### [facility] [address] [address] [address] Taylor Alvarenga (U)LT. YELLOWNormalYELLOWMetrohealth Cleveland Heights Medical CenterComment on above:Performed By: #### POCGLUC #### [facility] [address] [address] [address] Taylor Muñoz micrscopic examination will be performed if indicated. NormalMetrohealth Cleveland Heights Medical CenterComment on above:Performed By: #### POCGLUC #### [facility] [address] [address] [address] Taylor GarciaGlucose Ql (U)500 mg/dlAbnormalNEGATIVEMetrohealth [facility] Medical Center Comment on above:Performed By: #### POCGLUC #### [facility] [address] [place] [address] Dr. Taylor GarciaHemoglobin Ql (U)TRACE-INTACTAbnormalNEGATIVEMetrohealth Cleveland Heights Medical CenterComment on above:Performed By: #### POCGLUC #### [facility] [address] [place] [address] Dr. Taylor Toth Ql (U)>=80AbnormalNEGATIVEThe Children'S Hospital Of ColumbusComment on above:Performed By: #### POCGLUC #### [facility] [address] [place] [address] Dr. Taylor GarciaLEUKOCYTESNegativeNormalNEGATIVEMetrohealth Cleveland Heights Medical CenterComment on above:Performed By: #### POCGLUC #### [facility] [address] [place] [address] Dr. Taylor Chang Ql (U)NegativeNormalNEGATIVEThe [facility]'S Hospital Of ColumbusComment on above:Performed By: #### POCGLUC #### [facility] [address] [place] [address] Dr. Taylor GarciapH (U)5.5 [pH]Normal5-9The [facility]S Hospital Of ColumbusComment on above: Performed By: #### POCGLUC #### [facility] [address] [place] [address] Dr. Taylor GarciaProtein (U) [Mass/Vol]30 mg/dLAbnormalNEGATIVE/ TRACEThe Children'S Hospital Of ColumbusComment on above:Performed By: #### POCGLUC #### [facility] [address] [place] [address] Dr. Taylor GarciaSPEC GRAVITY1.426Cohfdb4.005-<=1.025The [facility] ColumbusComsouthwest regional rehabilitation center on above:Performed By: #### POCGLUC #### [facility] [address] [place] [address] Dr. Taylor Brown MICRO INDINDICATEDNormalThe Children'S Hospital Of ColumbusComment on above: Performed By: #### POCGLUC #### [facility] [address] [place] [address] Dr. Taylor Hobbsgen Qn (U)0.2 {Sheridan'U}/dLNormal0.2 - 1.0The [facility] Hospital Of ColumbusComment on above:Performed By: #### POCGLUC #### [facility] [address] [address] [address] Taylor GarciaGlobulin Calc (S) [Mass/Vol]Ordered By: NON STAFF on 01-22-2023 Globulin (S) [Mass/Vol]2.6 g/dLAshtabula County Medical CenterGlucose [Mass/volume] in Serum or PlasmaOrdered By: NON STAFF on 48-00-4148Mgnudcm [Mass/Vol]331 mg/sW12-715NkthgduguAshtabula County Medical CenterComment on above:ADA recommended reference rangeRandom Glucose Reference Range is dependent on time and content of last meal. Glucose of more than 200 mg/dL in a nonstressed, ambulatory subject supports the diagnosisof Diabetes Mellitus.LIPID PROFILEon 05-97-0995DJWX-HDL RATIO NORMSEE [facility] CenterComsouthwest regional rehabilitation center on above:Result Comment: 3.3 - 4.4 LOW RISK 4.4 - 7.1 AVERAGE RISK 7.1 - 11.0 MODERATE RISK >11.0 HIGH RISKPerformed By: #### POCGLUC #### [facility] [address] [address] [address] Taylor Yeeesterol [Mass/Vol]380 mg/dLCritically high<=200[facility] CenterComsouthwest regional rehabilitation center on above:Performed By: #### POCGLUC #### [facility] [address] [address] [address] Taylor Yeeesterol in HDL [Mass/Vol]33 mg/dLCritically xqb39-85HtiMetrohealth Cleveland Heights Medical CenterComsouthwest regional rehabilitation center on above:Performed By: #### POCGLUC #### [facility] [address] [address] [address] Taylor Miller.total/Cholesterol in HDL [Mass ratio]11.5 {ratio} NormalMetrohealth Cleveland Heights Medical CenterComsouthwest regional rehabilitation center on above:Performed By: #### POCGLUC #### [facility] [address] [address] [address] Taylor Puentes NORMAL> or = 60 mg/dl - LOW CARDIOVASCULAR RISK <40 mg/dl - HIGH CARDIOVASCULAR RISKSt. Vincent HospitalComsouthwest regional rehabilitation center on above:Performed By: #### POCGLUC #### [facility] [address] [address] [address] Taylor GarciaLDL CALC NORMALSEE BELOWSt. Vincent HospitalComment on above:Result Comment: <100 mg/dl OPTIMAL 100 - 129 mg/dl NEAR OR ABOVE OPTIMAL 130 - 159 mg/dl BORDERLINE HIGH 160 - 189 mg/dl HIGH >190 mg/dl VERY HIGH Performed By: #### POCGLUC #### [facility] [address] [address] [address] Taylor GarciaTriglyceride [Mass/Vol]4548 mg/dLCritically high<=150Met[facility] Medical CenterComment on above:Performed By: #### POCGLUC #### [facility] [address] [address] [address] Taylor GarciaVLDL JBJQ069.6 mg/dLSt. Vincent HospitalComment on above: Performed By: #### POCGLUC #### [facility] [address] [address] [address] Taylor GarciaLactate [Moles/volume] in Serum or PlasmaOrdered By: NON STAFF on 71-62-8779Iucqusk [Moles/Vol]1.0 mmol/L0.5-2.2FMercy Health St. [facility] Lipase [Enzymatic activity/volume] in Serum or PlasmaOrdered By: NON STAFF on 67-05-8893Ermyrl [Catalytic activity/Vol]112.0 U/L11.0-82.0[facility] CenterNo Panel InformationOrdered By: NON STAFF on 33-84-1549Mhtccexua GFR (CKD-EPI)> 60.0 mL/MinAshtabula County Medical CenterPharmacy Creatinine Clearance (ChemN/[facility] HospitalPOINT OF CARE GLUCOSEon 75-55-1325Lkejbbn [Mass/Vol]523 mg/dLCritically jman99-415EcyMetrohealth Cleveland Heights Medical Center Comment on above:Result Comment: Will Repeat TestPerformed By: #### POCGLUC #### [facility] [address] [address] [address] Taylor GarciaPotassium [Moles/volume] in Serum or PlasmaOrdered By: NON STAFF on 65-74-0356Ymqgkhazg [Moles/Vol]4.1 mmol/L3.5-5.1FMercy Health St. Elizabeth Boardman HospitalProtein [Mass/volume] in Serum or PlasmaOrdered By: NON STAFF on 44-24-4636Zzsrsyk [Mass/Vol]7.6 g/dL6.4-8.9[facility] Serum or plasma albumin/globulin mass ratioOrdered By: NON STAFF on 01-22-2023 Albumin/Globulin [Mass ratio]1.9 {ratio}[facility]tering Memorial Hospitalerum or plasma anion gap determinationOrdered By: NON STAFF on 49-12-5305Klnhy gap [Moles/Vol]20.6 mmol/L6.0-15.0[facility] Hospitalodium [Moles/volume] in Serum or PlasmaOrdered By: NON STAFF on 15-85-7498Gvbyra [Moles/Vol]133 mmol/S712-917CjhfogfhyAshtabula County Medical CenterURINE MICROSCOPIC ONLYon 13-52-0414JNFPIFLSQJQM SEENNormalNONE SEENThe Children'S Hospital Of ColumbusComment on above:Performed By: #### POCGLUC #### [facility] [address] [place] [address] Dr. Taylor Parmar identified Cx Nom (U)NOT INDICATEDSt. Vincent HospitalComment on above:Performed By: #### POCGLUC #### [facility] [address] [address] [address] Taylor Patel SEENNormalNONE SEENMetrohealth Cleveland Heights Medical CenterComsouthwest regional rehabilitation center on above:Performed By: #### POCGLUC #### [facility] [address] [address] [address] Taylor Owens LM Nom (Urine sed)NONE SEENNormalNONE SEENMetrohealth Cleveland Heights Medical CenterComment on above:Performed By: #### POCGLUC #### [facility] [address] [address] [address] Taylor Valentethelial cells LM Ql (Urine sed)NONE SEENNormalNONE SEEN /RARE The [facility] Of ColumbusComment on above:Performed By: #### POCGLUC #### [facility] [address] [address] [address] Taylor Pozo SEENNormalNONE SEENThe [facility]anburg HospitalComment on above:Performed By: #### POCGLUC #### [facility] [address] [address] [address] Taylor GarciaWaufgXZY5-8Dmrjfw2-7Jss [facility] ColumbusComsouthwest regional rehabilitation center on above:Performed By: #### POCGLUC #### [facility] [address] [place], [place] [address] Dr. Taylor GarciaWBC0-2AbnormalNONBradly SEENThe [facility]'S Hospital Of ColumbusComment on above: Performed By: #### POCGLUC #### [facility] [address] [place], [place] [address] Dr. Taylor GarciaUrea nitrogen [Mass/volume] in Serum or PlasmaOrdered By: NON STAFF on 50-19-3136Ecmw nitrogen [Mass/Vol]10 mg/dL7-25[facility] CenterXR CHEST 1 Von 89-82-2728PV CHEST 1 VEXAMINATION: XR CHEST 1 V HISTORY: Abdominal pain COMPARISON: No [...] Electronically authenticated by: CÉSAR SALES Date: 2023-01-22 14:40[facility] HospitalXR FOOT LEFT (MIN 3 VIEWS)on 45-10-8091PZ FOOT LEFT (MIN 3 VIEWS)EXAMINATION: THREE XRAY VIEWS OF THE LEFT FOOT [...] Signed by: Rimma Nunn MD 04/23/22 Final resultNormalPromedica Flower HospitalHemoglobin A1Con 68-01-7659Voflhqq [Mass/Vol]97 mg/dLNormalPromedica Flower HospitalComsouthwest regional rehabilitation center on above:Result Comment: The ADA and AACC recommend providing the estimated average glucose result to permit better patient understanding of their HBA1c result.Performed By: #### LIPR #### [facility] [address] [place] [address] Television Servicer: Yogesh Lehman DO #### GLYHGB #### [address] [address] Television Servicer: Frank Otero MDHbA1c (Bld) [Mass fraction]5.0 %Normal4.0-6.0 [facility] HospitalComsouthwest regional rehabilitation center on above:Performed By: #### LIPR #### [facility] [place] [address] Television Servicer: Yogesh Lehman DO #### GLYHGB #### [address] [address] Television Servicer: Frank Otero MDLipid Profileon 69-41-5046Tmljrkdrxjq [Mass/Vol] 161 mg/dLNormal<200Prom[facility] Flower HospitalComsouthwest regional rehabilitation center on above:Result Comment: Cholesterol Guidelines: <200 Desirable 200-240 Borderline >240 UndesirablePerformed By: #### LIPR #### [facility] [address] [place] [address] Television Servicer: Yogesh Lehman DO #### GLYHGB #### [address] [address] Television Servicer: EDNA Modiholesterol in HDL [Mass/Vol]26 mg/dLLow>40Prom[facility] F[facility] HospitalComsouthwest regional rehabilitation center on above:Result Comment: HDL Guidelines: <40 Undesirable 40-59 Borderline >59 DesirablePerformed By: #### LIPR #### [facility] [address] [place] [address] Television Servicer: Yogesh Lehman DO #### GLYHGB #### [facility] [address] [place] [address] Television Servicer: EDNA Modiholesterol in LDL [Mass/Vol]83 mg/dLNormal0-130 [facility] HospitalComsouthwest regional rehabilitation center on above:Result Comment: LDL Guidelines: <100 Desirable 100-129 Near to/above Desirable 130-159 Borderline >159 Undesirable Direct (measured) LDL and calculated LDL are not interchangeable tests.Performed By: #### LIPR #### [facility] [address] [place] [address] Television Servicer: Yogesh Lehman DO #### GLYHGB #### [address] [address] Television Servicer: EDNA Modiholesteboni.total/Cholesterol in HDL [Mass ratio]6.2 {ratio}High<5[facility] CenterComsouthwest regional rehabilitation center on above:Performed By: #### LIPR #### [facility] [address] [place] [address] Television Servicer: Yogesh Lehman DO #### GLYHGB #### [address] [address] Television Servicer: Frank Otero MDTriglyceride [Mass/Vol]260 mg/dLHigh<150[facility] CenterComsouthwest regional rehabilitation center on above:Result Comment: Triglyceride Guidelines: <150 Desirable 150-199 Borderline 200-499 High >499 Very high Based on AHA Guidelines for fasting triglyceride, July 2012.Performed By: #### LIPR #### [facility] [address] [place] [address] Television Servicer: Yogesh Lehman DO #### GLYHGB #### [facility] [address] [place] [address] Television Servicer: Frank Otero [facility] with Diffon 95-95-6954Nlo. Basophil0.00 k/uL Normal0.0-0.2[facility] CenterComsouthwest regional rehabilitation center on above:Performed By: #### ALCB, CDP, CMPX #### [facility] [address] [place] [address] Television Servicer: Yogesh Lehman DOAbs.Neutrophil (Seg)4.60 k/uLNormal1.3-9.1 [facility] Flower HospitalComment on above:Performed By: #### GEENA, CDP, CMPX #### [facility] [address] [place] [address] Television Servicer: Yogesh Lehman DOBasophils/100 WBC (Bld)1 %Normal0-2MPremier Health Miami Valley Hospital NorthComment on above:Performed By: #### GEENA, CDP, CMPX #### [facility] [place] [address] Television Servicer: Yogesh Lehman DOEosinophils (Bld) [#/Vol]0.10 10*3/uLNormal 0.0-0.4[facility] HospitalComsouthwest regional rehabilitation center on above:Performed By: #### GEENA, MARA, CMPX #### [facility] [place] [address] Television Servicer: Yogesh Lehman DOEosinophils/100 WBC (Bld)1 %Normal0-4[facility] HospitalComsouthwest regional rehabilitation center on above:Performed By: #### GEENA, CDP, CMPX #### [facility] [place] [address] Television Servicer: Yogesh Lehman DOErythrocyte distribution width (RBC) [Ratio] 13.2 %Grgleb03.5-14.9[facility] on above:Performed By: #### ALCB, CDP, CMPX #### [facility] [address] [place] [address] Television Servicer: Yogesh Lehman DOHematocrit (Bld) [Volume fraction]50.0 % Jajufi85-18RjbkcOhioHealth O'Bleness Hospital on above:Performed By: #### ALCB, CDP, CMPX #### [facility] [address] [place] [address] Television Servicer: Yogesh Lehman DOHemoglobin (Bld) [Mass/Vol]18.0 g/dLHigh 13.5-17.5[facility] on above:Performed By: #### ALCB, CDP, CMPX #### [facility] [address] [place] [address] Television Servicer: Yogesh Lehman DOLymphocytes (Bld) [#/Vol]2.00 10*3/uLNormal 1.0-4.8[facility] on above:Performed By: #### ALCB, CDP, CMPX #### [facility] [place] [address] Television Servicer: Yogesh Lehman DOLymphocytes/100 WBC (Bld)29 %Abvyqs10-92LfwbxOhioHealth O'Bleness Hospital on above:Performed By: #### ALCB, CDP, CMPX #### [facility] [place] [address] Television Servicer: Yogesh Lehman DOMCH (RBC) [Entitic mass]32.3 zcXggxeq57-52 [facility] on above:Performed By: #### ALCB, CDP, CMPX #### [facility] [address] [place] [address] Television Servicer: Yogesh Lehman DOMCHC (RBC) [Mass/Vol]36.1 g/vOYmovle68-27 [facility] on above:Performed By: #### ALCB, CDP, CMPX #### [facility] [address] [place] [address] Television Servicer: Yogesh Lehman DOMCV (RBC) [Entitic vol]89.6 oPHjilir48-343 [facility] on above:Performed By: #### ALCB, CDP, CMPX #### [facility] [address] [place] [address] Television Servicer: Yogesh Lehman DOMonocytes (Bld) [#/Vol]0.40 10*3/uLNormal 0.1-1.3MMadison Health on above:Performed By: #### ALCB, CDP, CMPX #### [facility] [place] [address] Television Servicer: Yogesh Lehman DOMonocytes/100 WBC (Bld)5 %Normal2-8[facility] on above:Performed By: #### ALCB, CDP, CMPX #### [address] [address] Television Servicer: Yogesh Lehman DONeutrophil (Seg)64 %Pjcsda73-79HygddOhioHealth O'Bleness Hospital on above:Performed By: #### ALCB, CDP, CMPX #### [facility] [place] [address] Television Servicer: Yogesh Lehman DOPlatelet mean volume (Bld) [Entitic vol]7.9 fLNormal6.0-12.0[facility] on above:Performed By: #### ALCB, CDP, CMPX #### [facility] [address] [place] [address] Television Servicer: Yogesh Lehman DOPlatelets (Josephd) [#/Vol]213 10*3/uLNormal 150-450Prom[facility]ica Flower HospitalComment on above:Performed By: #### ALCB, CDP, CMPX #### [facility] [address] [place] [address] Television Servicer: Yogesh Lehman DORBC (Bld) [#/Vol]5.58 10*6/uLNormal4.5-5.9 [facility] HospitalComsouthwest regional rehabilitation center on above:Performed By: #### ALCB, CDP, CMPX #### [facility] [facility] [address] [place] [address] Television Servicer: Yogesh Lehman DOWBC (Josephd) [#/Vol]7.1 10*3/uLNormal4.5-13.5 [facility] on above:Performed By: #### ALCB, CDP, CMPX #### [facility] [facility] [address] [place] [address] Television Servicer: Yogesh Lehman DOComp Metabolic Pr/rfx MGon 33-43-3996BKD [Catalytic activity/Vol]U/LLow5-41[facility] HospitalComsouthwest regional rehabilitation center on above: Performed By: #### ALCB, CDP, CMPX #### [facility] [facility] [address] [place] [address] Television Servicer: Yogesh Lehman DO(cont.)[facility] Comment on above:Result Comment: Average GFR for 20-29 years old: 116 mL/min/1.73sq m Chronic Kidney Disease: <60 mL/min/1.73sq m Kidney failure: <15 mL/min/1.73sq m eGFR calculated using average adult body mass. Additional eGFR calculator available at: http://www.Cytodyn.com/multiple_crcl_2012.htmPerformed By: #### ALCCindi, CDP, CMPX #### [facility] [address] [place] [address] Television Servicer: Yogesh Lehman DOAlbumin [Mass/Vol]4.9 g/dLNormal3.5-5.2MPremier Health Miami Valley Hospital NorthComment on above:Performed By: #### GEENA, CDP, CMPX #### [facility] [address] [place] [address] Television Servicer: Yogesh Lehman DOAlkaline Phos50 U/GSmjcsk50-561PwiglPromedica Flower HospitalComsouthwest regional rehabilitation center on above:Performed By: #### GEENA, CDP, CMPX #### [address] [address] Television Servicer: Yogesh Lehman DOAnion gap [Moles/Vol]11 mmol/LNormal9-17Prom[facility] HospitalComsouthwest regional rehabilitation center on above:Performed By: #### GEENA, MARA, CMPX #### [facility] [address] [place] [address] Television Servicer: Yogesh Lemhan DOAST [Catalytic activity/Vol]21 U/LNormal<40 [facility] HospitalComsouthwest regional rehabilitation center on above:Performed By: #### GEENA, MARA, CMPX #### [facility] [address] [place] [address] Television Servicer: Yogesh Lehman DOBilirubin [Mass/Vol]0.71 mg/dLNormal0.3-1.2 [facility] HospitalComsouthwest regional rehabilitation center on above:Performed By: #### ALCB, CDP, CMPX #### [facility] [address] [place] [address] Television Servicer: Yogesh Lehman DOCalcium [Mass/Vol]9.6 mg/dLNormal8.6-10.4 [facility] Flower HospitalComment on above:Performed By: #### ALCB, CDP, CMPX #### [facility] [address] [facility] [place] [address] Television Servicer: Yogesh Lehman DOChloride [Moles/Vol]101 mmol/BCntsbo30-276 [facility] Flower HospitalComment on above:Performed By: #### ALCB, CDP, CMPX #### [facility] [address] [place] [address] Television Servicer: Yogesh Lehman DOCO2 [Moles/Vol]26 mmol/TQumhyl57-02IafzyPromedica Flower HospitalComment on above:Performed By: #### ALCCindi CDP, CMPX #### [facility] [address] [place] [address] Television Servicer: Yogesh Lehman DOCreatinine [Mass/Vol]1.12 mg/dLNormal 0.70-1.20Promedica Flower HospitalComment on above:Performed By: #### GEENA CDP, CMPX #### [facility] [place] [address] Television Servicer: Yogesh Lehman DOGFR, Amer>60Normal>60[facility] Southview Medical CenterComment on above:Performed By: #### ALCCindi, CDP, CMPX #### [facility] [place] [address] Television Servicer: Yogesh Lehman DOGFR,non Amer>60Normal>60[facility] Southview Medical CenterComment on above:Performed By: #### ALCB, CDP, CMPX #### [facility] [place] [address] Television Servicer: Fanelly, Yogesh, DOGlucose [Mass/Vol]118 mg/lXWjew21-10JuvmmPremier Health Miami Valley Hospital NorthComment on above:Performed By: #### ALCCindi CDP, CMPX #### [facility] [address] [place] [address] Television Servicer: Yogesh Lehman DOPotassium [Moles/Vol]4.1 mmol/LNormal3.7-5.3 [facility] Flower HospitalComment on above:Performed By: #### ALCB, CDP, CMPX #### [address] [address] Television Servicer: Yogesh Lehman DOProtein [Mass/Vol]7.6 g/dLNormal6.4-8.3MPremier Health Miami Valley Hospital NorthComment on above:Performed By: #### MARA SEAY, CMPX #### [address] [address] Television Servicer: Yogesh Lehman, DOSodium [Moles/Vol]138 mmol/KMjbmdm712-370 [facility] HospitalComsouthwest regional rehabilitation center on above:Performed By: #### MARA SEAY, CMPX #### [address] [address] Television Servicer: Yogesh Lehman DOUrea nitrogen [Mass/Vol]18 mg/dLNormal6-20 [facility] HospitalComsouthwest regional rehabilitation center on above:Performed By: #### ALCB, CDP, CMPX #### [address] [address] Television Servicer: Yogesh Lehman DODrug Scr, Abuse, Uron 04-21-2022 Amphetamine(s),UrNegativeNormalNEGMercy Southview Medical CenterComsouthwest regional rehabilitation center on above: Result Comment: (Positive cutoff 1000 ng/mL)Performed By: #### UAMIC, BRANDIN #### [facility] [address] [place] [address] Television Servicer: Yogesh Lehman DOBarbiturate(s),UrNegativeNormalNEGOhioHealth O'Bleness Hospital on above:Result Comment: (Positive cutoff 200 ng/mL)Performed By: #### UAMIC, BRANDIN #### [facility] [address] [place] [address] Television Servicer: Yogesh Lehman DOBenzodiazepine(s)NegativeNormalNEGMerUniversity Hospitals TriPoint Medical Center on above:Result Comment: (Positive cutoff 200 ng/mL)Performed By: #### UAMIC, BRANDIN #### [facility] [address] [place] [address] Television Servicer: Yogesh Lehman DOCannabinoid(s),UrPositiveAbnormalNEGOhioHealth O'Bleness Hospital on above:Result Comment: (Positive cutoff 50 ng/mL)Performed By: #### UAMIC, BRANDIN #### [facility] [address] [place] [address] Television Servicer: Yogesh Lehman DOCocaine MetaboliteNegativeSelect Medical Specialty [facility] on above:Result Comment: (Positive cutoff 300 ng/mL)Performed By: #### UAMIC, BRANDIN #### [facility] [address] [place] [address] Television Servicer: Yogesh Lehman DOInterpretive InfoAssay provides medical screening only. The absence of expected drug(s) and/orNormalMercy The MetroHealth System on above:Result Comment: metabolite(s) may indicate diluted or adulterated urine, limitations of testing or timing of collection. Testing for legal purposes should be confirmed by another method. To request confirmation of test result, please call the lab within 7 days of sample submission.Performed By: #### UAMIC, BRANDIN #### [facility] [address] [place] [address] Television Servicer: Yogesh Lehman DOMethadone Ql (U)NegativeNormalNEGPromedica Flower HospitalComsouthwest regional rehabilitation center on above:Result Comment: (Positive cutoff 300 ng/mL)Performed By: #### UAMIC, BRANDIN #### [facility] [place] [address] Television Servicer: Yogesh Lehman DOOpiate(s), UrNegativeNormalNEGOhioHealth O'Bleness Hospital on above:Result Comment: (Positive cutoff 300 ng/mL)Performed By: #### UAMIC, BRANDIN #### [facility] [address] [place] [address] Television Servicer: Yogesh Lehman DOOxycodone, UrineNegativeNormalNEGOhioHealth O'Bleness Hospital on above:Result Comment: (Positive cutoff 100 ng/mL)Performed By: #### UAMIC, BRANDIN #### [facility] [address] [place] [address] Television Servicer: Yogesh Lehman DOPhencyclidine, UrNegativeNormmiNEGOhioHealth O'Bleness Hospital on above:Result Comment: (Positive cutoff 25 ng/mL)Performed By: #### UAMIC, BRANDIN #### [facility] [address] [place] [address] Television Servicer: Yogesh Lehman DOEthanol Alcoholon 35-70-6527Tplmrxb [Mass/Vol]mg/dLNormal<10[facility] Southview Medical CenterComment on above:Performed By: #### ALCB, CDP, CMPX #### [facility] [address] [place] [address] Television Servicer: Yogesh Lehman DOEthanol percent<0.010NormalPromedica Flower HospitalComsouthwest regional rehabilitation center on above:Performed By: #### ALCB, CDP, CMPX #### [facility] [address] [facility] [place] [address] Television Servicer: Yogesh Lehman DOUrinalysleandro w/ Microon 25-56-1620CagputlmJsua Golden Valley Memorial HospitalEMeSheltering Arms HospitalComment on above:Performed By: #### UAMIC, BRANDIN #### [facility] [address] [facility] [place] [address] Television Servicer: Yogesh Lehman DOBilirubin, SemiQt,UrNegativeNormalNEGPromedica Flower HospitalComsouthwest regional rehabilitation center on above:Performed By: #### UAMIC, BRANDIN #### [facility] [facility] [place] [address] Television Servicer: Yogesh Lehman DOBlood, UrineNegativeNormalProMedica Toledo HospitalComsouthwest regional rehabilitation center on above:Performed By: #### UAMIC, BRANDIN #### [facility] [facility] [place] [address] Television Servicer: Yogesh Lehman DOCasts0 TO 2NormalPromedica Flower Hospital Comment on above:Performed By: #### UAMIC, BRANDIN #### [facility] [facility] [place] [address] Television Servicer: Yogesh Lehman DOClarity (U)TurbidAbnormalCLEARMercUniversity Hospitals Cleveland Medical CenterComment on above:Performed By: #### UAMIC, BRANDIN #### [facility] [address] [facility] [place] [address] Television Servicer: Yogesh Lehman DOColor (U)YellowNormalYELMerAvita Health System [place] HospitalComsouthwest regional rehabilitation center on above:Performed By: #### UAMIC, BRANDIN #### [facility] [address] [facility] [place] [address] Television Servicer: Yogesh Lehman DOEpithelial cells LM Ql (Urine sed)0 TO 2 NormalGood Samaritan HospitalAvita Health System [place] HospitalComsouthwest regional rehabilitation center on above:Performed By: #### UAMIC, BRANDIN #### [facility] [address] [place] [address] Television Servicer: Yogesh Lehman DOGlucose Ql (U)NegativeNormalNEGMercy Southview Medical CenterComsouthwest regional rehabilitation center on above:Performed By: #### UAMIC, BRANDIN #### [facility] [address] [place] [address] Television Servicer: Yogesh Lehman DOKetones Ql (U)TRACEAbnormalNEGMerAvita Health System [place] HospitalComsouthwest regional rehabilitation center on above:Performed By: #### UAMIC, BRANDIN #### [address] [address] Television Servicer: Yogesh Lehman DOLeukocyte esterase Test strip Ql (U)Negative NormalNEGPromedica Flower HospitalComsouthwest regional rehabilitation center on above:Performed By: #### UAMIC, BRANDIN #### [address] [address] Television Servicer: Yogesh Lehman DONitrite,UrNegativeNormalNEGPromedica Flower HospitalComsouthwest regional rehabilitation center on above:Performed By: #### UAMIC, BRANDIN #### [facility] [address] [place] [address] Television Servicer: Yogesh Lehman DOPH,Ur7.5Jovlfo9.0-8.0[facility] Medical CenterComsouthwest regional rehabilitation center on above:Performed By: #### UAMIC, BRANDIN #### [facility] [address] [place] [address] Television Servicer: Yogesh Lehman DOProtein Ql (U)NegativeNormalNEGMerAvita Health System [place] HospitalComsouthwest regional rehabilitation center on above:Performed By: #### UAMIC, BRANDIN #### [facility] [address] [place] [address] Television Servicer: Yogesh Lehman DOSpec. [place],Ur1.025Fctkat7.000-1.030Promedica Flower HospitalComment on above:Performed By: #### UAMIC, BRANDIN #### [facility] [address] [place] [address] Television Servicer: Yogesh Lehman DOUrine RBC's0 TO 2NHarrison Community HospitalComsouthwest regional rehabilitation center on above:Performed By: #### UAMIC, BRANDIN #### [facility] [address] [place] [address] Television Servicer: Yogesh Lehman DOUrine WBC's0 TO 2NHarrison Community HospitalComsouthwest regional rehabilitation center on above:Performed By: #### UAMIC, BRANDIN #### [facility] [address] [place] [address] Television Servicer: Yogesh Lehman DOUrobilinogen,UrNormalNormalNORMPromedica Flower HospitalComsouthwest regional rehabilitation center on above:Performed By: #### UAMIC, BRANDIN #### [facility] [address] [place] [address] Television Servicer: Yogesh Lehman DOMiscel [facility] [phone] Out ReportSEE [facility] West Medical CenterComment on above:Result Comment: (NOTE) Test name Result Flag Units RefIntvl Metformin Quantitative, Serum or Plasma 0.93 mcg/mL Serum Reporting Limit: 0.10 mcg/mL Synonym(s): Glucophage(R) Therapeutic range: Approximately 1 - 2 mcg/mL. Metformin associated lactic acidosis generally has been associated with Metformin plasma concentrations exceeding 5 mcg/mL. Analysis by High Performance Liquid Chromatography/ Tandem Mass Spectrometry (LC-MS/MS) This test was developed and its performance characteristics determined by [facility]. It has not been cleared or approved by the [place] Food and Drug Administration. Testing performed at [facility] [employer] [address] [place] [id number] CLIA [id number] By: #### ATRAZO #### [address] [address] Television Servicer: Kodak Akbar MD #### CMPX, EDTOX, LIP, CDP #### [address] [address] Television Servicer: Fantasma Modi 74-50-8653CFT<5.9Khfkfn3.0-5.0Salem City HospitalComment on above:Result Comment: (NOTE) INTERPRETIVE INFORMATION: Glutamic Acid Decarboxylase Antibody A value greater than 5.0 IU/mL is considered positive for Glutamic Acid Decarboxylase Antibody (AUGIE Ab). This assay is intended for the semi-quantitative determination of the AUGIE Ab in human serum. Results should be interpreted within the context of clinical symptoms. Performed By: [facility] [address] [place], [place] [id number] Balancing Machine Operator: MILAGROS Rodrigueserformed By: #### ATRAZO #### [address] [address] Television Servicer: Kodak Akbar MD #### CMPX, EDTOX, LIP, CDP #### [address] [address] Television Servicer: JANNET Modi-65 AUTOANTIBODYon [id number] Acid Decarb Ab<5.0[place], KYComment on above:(NOTE) INTERPRETIVE INFORMATION: Glutamic Acid Decarboxylase Antibody A value greater than 5.0 IU/mL is considered positive for Glutamic Acid Decarboxylase Antibody (AUGIE Ab). This assay is intended for the semi-quantitative determination of the AUGIE Ab in human serum. Results should be interpreted within the context of clinical symptoms. Performed By: [facility] [address] [place] [address] Balancing Machine Operator: Zayda Ospina MD Hemoglobin A1Con [phone] [Mass/Vol]203 mg/dLCocolalla, [place] Comment on above:The ADA and AACC recommend providing the estimated average glucose result to permit better patient understanding of their HBA1c result. HbA1c (Bld) [Mass fraction]8.7 %High4 - 6 %[facility], AZInterpretation and review of laboratory resultsAbnoLivonia, KYPO Glucose Fingerstickon 45-90-8880Phsuefv [Mass/Vol]205 mg/fWIfxy50 - 110 mg/dLParkview Health, AZInterpretation and review of laboratory resultsAbnoLivonia, KYTRAZADONEon 73-31-1757Ojejytxzo7.62 ug/mL0.5 - 2.5 ug/mLCocolalla, KYComment on above:(NOTE) INTERPRETIVE INFORMATION: Trazodone Therapeutic Range: 0.50 - 2.50 ug/mL Toxic: Greater than 4.00 ug/mL Adverse effects may include sedation, fatigue, headache, blurred vision and nausea. See Compliance Statement B: TextualAds.SayNow/CS Performed By: [facility] [address] [place] [address] Balancing Machine Operator: Zayda Ospina MD Trazadoneon 91-27-4752CGMARI>6.67Rdby3.50-2.50[facility] Comment on above:Result Comment: (NOTE) INTERPRETIVE INFORMATION: Trazodone Therapeutic Range: 0.50 - 2.50 ug/mL Toxic: Greater than 4.00 ug/mL Adverse effects may include sedation, fatigue, headache, blurred vision and nausea. See Compliance Statement B: TextualAds.SayNow/CS Performed By: [facility] [address] [place], [place] [id number] Balancing Machine Operator: MILAGROS Rodrigueserformed By: #### ATRAZO #### [facility] [address] [place] [address] Television Servicer: Kodak Akbar MD #### CMPX, EDTOX, LIP, CDP #### [address] [phone] Television Servicer: Frank Otero MDTRAZOA1.62 ug/mLNormal0.50-2.50[facility] City HospitalComment on above:Result Comment: (NOTE) INTERPRETIVE INFORMATION: Trazodone Therapeutic Range: 0.50 - 2.50 ug/mL Toxic: Greater than 4.00 ug/mL Adverse effects may include sedation, fatigue, headache, blurred vision and nausea. See Compliance Statement B: TextualAds.SayNow/ Performed By: [facility] [address] [place] [address] Balancing Machine Operator: MILAGROS Rodrigueserformed By: #### ATRAZO #### [address] [address] Television Servicer: Kodak Akbar MD #### CMPX, EDTOX, LIP, CDP #### [address] [address] Television Servicer: Kaz Modi Metab w/rfx MGon 08-01-2020(cont.)Normal [facility] City HospitalComment on above:Result Comment: Average GFR for <20 years old not available. Chronic Kidney Disease: <60 mL/min/1.73sq m Kidney failure: <15 mL/min/1.73sq m eGFR calculated using average adult body mass. Additional eGFR calculator available at: http://www.Cytodyn.com/multiple_crcl_2012.htmPerformed By: #### ATRAZO #### [address] [address] Television Servicer: Kodak Akbar MD #### CMPX, EDTOX, LIP, CDP #### [address] [phone] Television Servicer: Frank Otero MDGFR,non AmerPediatric GFR requires additional information. Refer to NKDEP website forNormal>60[facility] City HospitalComment on above:Result Comment: calculator.Performed By: #### ATRAZO #### [facility] [address] [place] [address] Television Servicer: Kodak Akbar MD #### CMPX, EDTOX, LIP, CDP #### [facility] [address] [place] [address] Television Servicer: LELIA Modi/LANEY Alfaro REPORTEDNormal9-20[facility] City HospitalComment on above:Performed By: #### ATRAZO #### [facility] [address] [place] [address] Television Servicer: Kodak Akbar MD #### CMPX, EDTOX, LIP, CDP #### [facility] [address] [phone] Television Servicer: RADHA Modi, AmerNOT REPORTEDNormal>60[facility] City HospitalComment on above:Performed By: #### ATRAZO #### [facility] [address] [place] [address] Television Servicer: Kodak Akbar MD #### CMPX, EDTOX, LIP, CDP #### [address] [phone] Television Servicer: WILLIAM Moditaging:NOT REPORTEDNormalSalem City HospitalComment on above:Performed By: #### ATRAZO #### [facility] [address] [place] [address] Television Servicer: Kodak Akbar MD #### CMPX, EDTOX, LIP, CDP #### [address] [address] Television Servicer: Janay Modi gap [Moles/Vol]13 mmol/LNormal9-17[facility], AZComment on above:Performed By: #### ATRAZO #### [facility] [address] [place] [address] Television Servicer: Kodak Akbar MD #### CMPX, EDTOX, LIP, CDP #### [address] [phone] Television Servicer: Frank Otero MDCalcium [Mass/Vol]9.3 mg/dLNormal8.6-10.4[facility], KYComment on above:Performed By: #### ATRAZO #### [facility] [address] [place] [address] Television Servicer: Kodak Abkar MD #### FELICIA BUNN, LIP, CDP #### [address] [address] Television Servicer: Frank Otero MDChloride [Moles/Vol]104 mmol/TVzzczy82-129Wzmgq Health- [place], KYComment on above:Performed By: #### ATRAZO #### [facility] [address] [place] [address] Television Servicer: Kodak Akbar MD #### FELICIA BUNN, LIP, CDP #### [address] [address] Television Servicer: Frank Otero, MDCO2 [Moles/Vol]23 mmol/SRpnram71-10Hsldx Health- [place], KYComment on above:Performed By: #### ATRAZO #### [facility] [address] [place] [address] Television Servicer: Kodak Akbar MD #### CMPX, EDTOX, LIP, CDP #### [address] [phone] Television Servicer: Frank Otero MDCreatinine [Mass/Vol]0.92 mg/dLNormal0.70-1.20 [facility], KYComment on above:Performed By: #### ATRAZO #### [facility] [address] [place] [address] Television Servicer: Kodak Akbar MD #### CMPX, EDTOX, LIP, CDP #### [address] [phone] Television Servicer: Frank Otero MDGlucose [Mass/Vol]185 mg/gCLriz53-96Ieeta [facility]- [place], KYComment on above:Performed By: #### ATRAZO #### [facility] [address] [place] [address] Television Servicer: Kodak Akbar MD #### CMPX, EDTOX, LIP, CDP #### [address] [phone] Television Servicer: MILAGROS Modiotassium [Moles/Vol]4.1 mmol/LNormal3.7-5.3 [facility], KYComment on above:Performed By: #### ATRAZO #### [address] [address] Television Servicer: Kodak Akbar MD #### CMPKatalina EDNORRISX, LIP, CDP #### [address] [phone] Television Servicer: WILLIAM Modiodium [Moles/Vol]140 mmol/QOamyiz205-466Gblmz Health- [place], KYComment on above:Performed By: #### ATRAZO #### [facility] [address] [place] [address] Television Servicer: Kodak Akbar MD #### CMPX, EDTOX, LIP, CDP #### [address] [phone] Television Servicer: Frank Otero MDUrea nitrogen [Mass/Vol]12 mg/dLNormal6-20[facility], KYComment on above:Performed By: #### ATRAZO #### [facility] [address] [place] [address] Television Servicer: Kodak Akbar MD #### CMPX, EDTOX, LIP, CDP #### [address] [phone] Television Servicer: Frank Otero [facility] with Diffon 25-63-5862Pji. Basophil0.05 k/uL Normal0.00-0.20Sal[facility] City HospitalComment on above:Performed By: #### ATRAZO #### [facility] [address] [place] [address] Television Servicer: Kodak Akbar MD #### CMPKatalina, EDTOKatalina, LIP, CDP #### [address] [phone] Television Servicer: Luis Enrique Modi.Imm.Granulocyte0.03 k/uLNormal0.00-0.30[facility] City HospitalComment on above:Performed By: #### ATRAZO #### [facility] [address] [place] [address] Television Servicer: Kodak Akbar MD #### SEPIDEH, FELICIA, LIP, CDP #### [address] [phone] Television Servicer: Luis Enrique Modi.Neutrophil (Seg)2.38 k/uLNormal1.80-8.00 [facility] HospitalComment on above:Performed By: #### ATRAZO #### [facility] [address] [place] [address] Television Servicer: Kodak Akbar MD #### CMPX, EDTOX, LIP, CDP #### [address] [phone] Television Servicer: Frank Otero MDBasophils/100 WBC (Bld)1 %Normal0-2MercSt. John's Health CenterComment on above:Performed By: #### ATRAZO #### [facility] [address] [place] [address] Television Servicer: Kodak Akbar MD #### CMPX, EDTOX, LIP, CDP #### [facility] [address] [place] [address] Television Servicer: Frank Otero MDEosinophils (Bld) [#/Vol]0.08 10*3/uLNormal 0.00-0.44[facility] City HospitalComment on above:Performed By: #### ATRAZO #### [facility] [address] [place] [address] Television Servicer: Kodak Akbar MD #### CMPX, EDTOX, LIP, CDP #### [address] [phone] Television Servicer: Frank Otero MDEosinophils/100 WBC (Bld)2 %Normal1-4[facility] City HospitalComment on above:Performed By: #### ATRAZO #### [facility] [address] [place], [place] [id number] Television Servicer: Kodak Akbar MD #### CMPX, EDTOX, LIP, CDP #### [address] [phone] Television Servicer: Frank Otero MDErythrocyte distribution width (RBC) [Ratio]12.6 %Eibqpb62.8-14.4[facility] City HospitalComment on above:Performed By: #### ATRAZO #### [facility] [address] [place], [place] [phone] Television Servicer: Kodak Akbar MD #### CMPX, EDTOX, LIP, CDP #### [address] [phone] Television Servicer: Frank Otero MDHematocrit (Bld) [Volume fraction]46.5 %Normal 40.7-50.3[facility] Medical CenterComment on above:Performed By: #### ATRAZO #### [facility] [address] [place], [place] [phone] Television Servicer: Kodak Akbar MD #### CMPX, EDTOX, LIP, CDP #### [place] [address] Television Servicer: Frank Otero MDHemoglobin (Bld) [Mass/Vol]16.0 g/dLNormal 13.0-17.0[facility] City HospitalComment on above:Performed By: #### ATRAZO #### [facility] [address] [place] [address] Television Servicer: Kodak Akbar MD #### CMPX, EDTOX, LIP, CDP #### [place] [address] Television Servicer: Frank Otero MDImmature granulocytes (Bld) [#/Vol]1 %Xgbv5BvjdrSalem City HospitalComment on above:Performed By: #### ATRAZO #### [facility] [address] [place] [address] Television Servicer: Kodak Akbar MD #### CMPX, EDTOX, LIP, CDP #### [place] [phone] Television Servicer: Frank Otero MDLymphocytes (Bld) [#/Vol]1.81 10*3/uLNormal 1.20-5.20[facility] City HospitalComment on above:Performed By: #### ATRAZO #### [facility] [address] [place] [address] Television Servicer: Kodak Akbar MD #### CMPX, EDTOX, LIP, CDP #### [place] [phone] Television Servicer: Frank Otero MDLymphocytes/100 WBC (Bld)38 %Krvuuj46-86CjgdqSalem City HospitalComment on above:Performed By: #### ATRAZO #### [facility] [address] [place] [address] Television Servicer: Kodak Akbar MD #### CMPX, EDTOX, LIP, CDP #### [address] [phone] Television Servicer: BHANU ModiCH (RBC) [Entitic mass]31.6 tmRrldsn91.2-33.5 [facility] City HospitalComment on above:Performed By: #### ATRAZO #### [facility] [address] [place] [address] Television Servicer: Kodak Akbar MD #### CMPX, EDTOX, LIP, CDP #### [address] [phone] Television Servicer: HERSON ModiC (RBC) [Mass/Vol]34.4 g/uTDjtgcg83.4-34.8 [facility] City HospitalComment on above:Performed By: #### ATRAZO #### [facility] [address] [place] [address] Television Servicer: Kodak Akbar MD #### CMPX, EDTOX, LIP, CDP #### [address] [address] Television Servicer: BHANU ModiCV (RBC) [Entitic vol]91.7 aGAdkxui98.6-102.9 [facility] City HospitalComment on above:Performed By: #### ATRAZO #### [facility] [address] [place] [address] Television Servicer: Kodak Akbar MD #### CMPX, EDTOX, LIP, CDP #### [facility] [address] [place] [address] Television Servicer: BHANU Modionocytes (Bld) [#/Vol]0.47 10*3/uLNormal 0.10-1.40Salem City HospitalComment on above:Performed By: #### ATRAZO #### [facility] [address] [place] [address] Television Servicer: Kodak Akbar MD #### CMPX, EDTOX, LIP, CDP #### [facility] [address] [place] [address] Television Servicer: BHANU Modionocytes/100 WBC (Bld)10 %High2-8Salem City HospitalComment on above:Performed By: #### ATRAZO #### [facility] [address] [place] [address] Television Servicer: Kodak Akbar MD #### CMPX, EDTOX, LIP, CDP #### [address] [address] Television Servicer: Frank Otero MDNeutrophil (Seg)49 %Jzkndy20-03IagraSalem City HospitalComment on above:Performed By: #### ATRAZO #### [facility] [address] [place] [address] Television Servicer: Kodak Akbar MD #### CMPX, EDTOX, LIP, CDP #### [facility] [address] [place] [address] Television Servicer: Frank Otero MDNRBC Automated0.0 per 100 WBCNormal0.0Salem City HospitalComment on above:Performed By: #### ATRAZO #### [facility] [address] [place] [address] Television Servicer: Kodak Akbar MD #### CMPX, EDTOX, LIP, CDP #### [address] [address] Television Servicer: Viki Modi mean volume (Bld) [Entitic vol]10.5 fL Normal8.1-13.5Salem City HospitalComment on above:Performed By: #### ATRAZO #### [facility] [address] [place] [address] Television Servicer: Kodak Akbar MD #### CMPX, EDTOX, LIP, CDP #### [address] [address] Television Servicer: Irvin Modi (Bld) [#/Vol]141 10*3/fAFbyakc751-308 [facility] City HospitalComment on above:Performed By: #### ATRAZO #### [facility] [address] [place] [address] Television Servicer: Kodak Akbar MD #### CMPX, EDTOX, LIP, CDP #### [place] [address] Television Servicer: Frank Otero FREEMAN CANCER INSTITUTEBC (Bld) [#/Vol]5.07 10*6/uLNormal4.21-5.77 [facility] City HospitalComment on above:Performed By: #### ATRAZO #### [facility] [address] [place] [address] Television Servicer: Kodak Akbar MD #### CMPX, EDTOX, LIP, CDP #### [address] [address] Television Servicer: Frank Otero MDWBC (Bld) [#/Vol]4.8 10*3/uLNormal4.5-13.5Sal[facility] City HospitalComment on above:Performed By: #### ATRAZO #### [facility] [address] [place] [address] Television Servicer: Kodak Akbar MD #### CMPX, EDTOX, LIP, CDP #### [facility] [address] [place] [address] Television Servicer: Kay Modi PerformedNOT REPORTEDUniversity Hospitals Samaritan Medical CenterComment on above:Performed By: #### ATRAZO #### [facility] [address] [place] [address] Television Servicer: Kodak Akbar MD #### CMPX, EDTOX, LIP, CDP #### [facility] [address] [place] [address] [phone] Television Servicer: MILAGROS Modilatelets (Bld) [#/Vol]NOT REPORTEDUniversity Hospitals Samaritan Medical CenterComment on above:Performed By: #### ATRAZO #### [facility] [address] [place] [address] Television Servicer: Kodak Akbar MD #### CMPX, EDTOX, LIP, CDP #### [facility] [address] [place] [address] [phone] Television Servicer: EVAN Modi morphology finding Nom (Bld)NOT REPORTED [facility] Samaritan Medical CenterComment on above:Performed By: #### ATRAZO #### [facility] [address] [place] [address] Television Servicer: Kodak Akbar MD #### CMPX, EDTOX, LIP, CDP #### [facility] [address] [place] [address] [phone] Television Servicer: Frank Otero MDWBC MorphologyNOT REPORTEDUniversity Hospitals Samaritan Medical CenterComment on above:Performed By: #### ATRAZO #### [facility] [address] [place] [address] Television Servicer: Kodak Akbra MD #### CMPX, EDTOX, LIP, CDP #### [facility] [address] [phone] Television Servicer: Frank Otero MDHematologyon [id number] (Bld) [#/Vol] 0.05 10*3/[facility]- [place], KYBasophils/100 WBC (Bld)1 %0 - 2 %[facility] [place], KYEosinophils (Bld) [#/Vol]0.08 10*3/[facility]- [place], KYEosinophils/100 WBC (Bld)2 %1 - 4 %[facility]- [place], KYHematocrit (Bld) [Volume fraction]46.5 % 40.7 - 50.3 %[facility]- [place], KYHemoglobin (Bld) [Mass/Vol]16.0 g/dL13 - 17 g/dLDoctors Hospital- [place], KYLymphocytes (Bld) [#/Vol]1.81 10*3/[facility]- [place], KYLymphocytes/100 WBC (Bld)38 %25 - 45 %[facility]- [place], KYMCH (RBC) [Entitic mass]31.6 pg25.2 - 33.5 pgBlanchard Valley Health [facility] [place], KYMCV (RBC) [Entitic vol]91.7 fL82.6 - 102.9 fLDoctors Hospital- [place], KYMonocytes (Bld) [#/Vol]0.47 10*3/[facility]- [place], KYMonocytes/100 WBC (Bld)10 %High2 - 8 %[facility]- [place], KYPlatelets (Bld) [#/Vol]NOT REPORTEDDo[facility]- [place], KYPlatelets (Bld) [#/Vol]141 10*3/[facility]- [place], KYRBC (Bld) [#/Vol]5.07 10*6/uL4.21 - 5.77 m/[facility]- [place], [place] RBC morphology finding Nom (Bld)NOT REPORTEDDoctors Hospital- [place], KYWBC (Bld) [#/Vol]4.8 10*3/uLParkview Health, DENITAWBC (Bld) [#/Vol]0.0 10*3/uL0.0 per 100 WBCParkview Health, Morelia Singhon 20-84-6548Wvrxvatt Phos42 U/WWipgxy66-829 [facility] City HospitalComment on above:Performed By: #### ATRAZO #### [facility] [address] [place] [address] Television Servicer: Kodak Akbar MD #### CMPX, EDTOX, LIP, CDP #### [address] [address] Television Servicer: Frank Otero MDGlobulin (S) [Mass/Vol]NOT REPORTEDNormal1.5-3.8 [facility] City HospitalComment on above:Performed By: #### ATRAZO #### [facility] [address] [place] [address] Television Servicer: Kodak Akbar MD #### CMPX, EDTOX, LIP, CDP #### [address] [address] Television Servicer: Frank Otero MDAlbumin [Mass/Vol]4.2 g/dLNormal3.5-5.2MSumner, KYComment on above:Performed By: #### ATRAZO #### [facility] [address] [place], [place] [id number] Television Servicer: Kodak Akbar MD #### CMPX, EDTOX, LIP, CDP #### [address] [address] Television Servicer: Frank Otero MDAlbumin/Globulin [Mass ratio]1.9 {ratio}Normal 1.0-2.5[place], KYComment on above:Performed By: #### ATRAZO #### [facility] [address] [place], [place] [phone] Television Servicer: Kodak Akbar MD #### CMPX, EDTOX, LIP, CDP #### [address] [address] Television Servicer: Frank Otero MDALT [Catalytic activity/Vol]20 U/LNormal5-41 [facility], KYComment on above:Performed By: #### ATRAZO #### [facility] [address] [place] [address] Television Servicer: Kodak Akbar MD #### CMPX, EDTOX, LIP, CDP #### [address] [address] Television Servicer: Frank Otero MDAST [Catalytic activity/Vol]15 U/LNormal<40[facility], KYComment on above:Performed By: #### ATRAZO #### [facility] [address] [place] [address] Television Servicer: Kodak Akbar MD #### CMPX, EDTOX, LIP, CDP #### [address] [address] Television Servicer: Frank Otero MDBilirubin Ql (U)0.56 mg/dLNormal0.3-1.2MMercy Health Lor[facility] Hospital, KYComment on above:Performed By: #### ATRAZO #### [facility] [address] [place], [place] [phone] Television Servicer: Kodak Akbar MD #### CMPX, EDTOX, LIP, CDP #### [address] [address] Television Servicer: Frank Otero MDBilirubin, Indirect0.43 mg/dLNormal0.00-1.00 [facility], KYComment on above:Performed By: #### ATRAZO #### [facility] [address] [place], [place] [phone] Television Servicer: Kodak Akbar MD #### CMPX, EDTOX, LIP, CDP #### [address] [phone] Television Servicer: Gregory Modiirubin.direct [Mass/Vol]0.13 mg/dLNormal<0.31 [place], KYComsouthwest regional rehabilitation center on above:Performed By: #### ATRAZO #### [facility] [address] [place] [address] Television Servicer: Kodak Akbar MD #### CMPX, EDTOX, LIP, CDP #### [address] [address] Television Servicer: Frank Otero MDProtein [Mass/Vol]6.4 g/dLNormal6.4-8.3MSumner, KYComsouthwest regional rehabilitation center on above:Performed By: #### ATRAZO #### [facility] [address] [place], [place] [id number] Television Servicer: Kodak Akbar MD #### CMPX, EDTOX, LIP, CDP #### [address] [address] Television Servicer: BHANU Modietabolic Panelon [id number] [Catalytic activity/Vol]42 U/L40 - 129 U/LMMercy Health Lorain Hospital, KYGFR/1.73 sq M predicted among non-blacks MDRD (S/P/Bld) [Vol rate/Area][place], KYComsouthwest regional rehabilitation center on above: Average GFR for <20 years old not available. Chronic Kidney Disease: <60 mL/min/1.73sq m Kidney failure: <15 mL/min/1.73sq m eGFR calculated using average adult body mass. Additional eGFR calculator available at: http://www.Cytodyn.SayNow/multiple_crcl_2012.htm GFR/1.73 sq M predicted among non-blacks MDRD (S/P/Bld) [Vol rate/Area]NOT REPORTEDParkview HealthJavieron 98-22-8523TQTS-CoV-2, TotalNegativeNEGATIVE Parkview HealthDENITARay County Memorial Hospital on above: Negative results do not rule [...] authorized laboratories. Fact sheet for Healthcare Providers: https://www.fda.gov/media/507129/download Fact sheet for Patients: https://www.fda.gov/media/727129/download METHODOLOGY: ECIA KWUB-NvY-4Bompz Health- OHRADHAGMKXKR-JnR-9, RapidNot DetectedNot DetectedParkview Health [facility] on above: Rapid NAAT: The specimen is [...] management decisions. Fact sheet for Healthcare Providers: https://www.fda.gov/media/561162/download Fact sheet for Patients: https://www.fda.gov/media/936175/download Methodology: Isothermal Nucleic Acid Amplification Source.NASOPHARYNGEAL SWABParkview Health, KYBun/Cre RatioNOT REPORTEDParkview Health, KYGFR AmericanNOT REPORTED>60 mL/minParkview Health, KYGFR Non- AmericanPediatric GFR requires additional information. Refer to NKDEP website for calculator.>60 mL/minParkview Health, AZGlobulin (S) [Mass/Vol]NOT REPORTED1.5 - 3.8 g/dLParkview Health, KYInterpretation and review of laboratory resultsAbnoOhioHealth Arthur G.[facility]. [facility], [facility] Cancer [facility], KYDifferential TypeNOT REPORTEDParkview Health, AZErythrocyte distribution width (RBC) [Ratio]12.6 % 11.8 - 14.4 %[facility], AZImmacleveland clinic children's [facility] for rehabilitation granulocytes (Bld) [#/Vol]1 %High0 [facility], AZImmature granulocytes (Bld) [#/Vol]0.03 10*3/uLParkview Health, KYInterpretation and review of laboratory resultsAbnoOhioHealth Arthur [facility], AZMCHC (RBC) [Mass/Vol]34.4 g/dL28.4 - 34.8 g/dLParkview Health, AZPlatelet mean volume (Bld) [Entitic vol]10.5 fL8.1 - 13.5 fLParkview Health, AZSegmented neutrophils/100 WBC (Bld)49 %34 - 64 %[facility], AZSegs Absolute2.38[facility], KYWBC MorphologyNOT REPORTEDParkview Health, AZPOC Glucose Fingerstickon [id number] [Mass/Vol]193 mg/dDDiph28 - 110 mg/dLParkview Health, KYInterpretation and review of laboratory resultsAbnoOhioHealth [facility], AZGlucose [Mass/Vol]162 mg/kBRnxg81 - 110 mg/dLParkview Health, [place] Interpretation and review of laboratory resultsAbnoOhioHealth [facility], [place] Glucose [Mass/Vol]204 mg/uTReua81 - 110 mg/dLParkview Health, AZInterpretation and review of laboratory resultsAbnoOhioHealth [facility], AZGlucose [Mass/Vol] 197 mg/yLWpca81 - 110 mg/dLParkview Health, AZInterpretation and review of laboratory resultsAbBellevue Hospital, FQPTUC-HmD-36 Abon 08-01-2020 SARS-CoV-19 Ab, TotNegativeNormalNEGMercy Mill Hall Medical CenterComment on above:Result Comment: Negative results do not rule out [...] authorized laboratories. Fact sheet for Healthcare Providers: https://www.fda.gov/media/697686/download Fact sheet for Patients: https://www.fda.gov/media/091833/download METHODOLOGY: ECIAPerformed By: #### ATRAZO #### [facility] [address] [place] [address] [phone] Television Servicer: Kodak Akbar MD #### CMPX, EDTOX, LIP, CDP #### [place] [phone] Television Servicer: RANDALL ModiCoV-2on 94-75-1517ZWAW-CoV-2NShelby Memorial HospitalComment on above:Performed By: #### ATRAZO #### [facility] [address] [place] [address] Television Servicer: Kodak Akbar MD #### CMPX, EDTOX, LIP, CDP #### [place] [phone] Television Servicer: RANDALL ModiCoV-2,RapidNot DetectedNormalNOTDETMercy Lompoc Valley Medical CenterComment on above:Result Comment: Rapid NAAT: The specimen is NEGATIVE [...] management decisions. Fact sheet for Healthcare Providers: https://www.fda.gov/media/247010/download Fact sheet for Patients: https://www.fda.gov/media/233377/download Methodology: Isothermal Nucleic Acid AmplificationPerformed By: #### ATRAZO #### [facility] [address] [place] [address] Television Servicer: Kodak Akbar MD #### FELICIA BUNN LIP, CDP #### [facility] [address] [place] [address] Television Servicer: WILLIAM ModiARS-CoV-2 Source.NASOPHARYNGEAL SWABNormalSalem City HospitalComment on above:Performed By: #### ATRAZO #### [facility] [address] [place] [address] Television Servicer: Kodak Akbar MD #### FELICIA BUNN LIP, CDP #### [facility] [employer] [address] [place] [address] Television Servicer: Ahmet Modi [phone] (P) [Mass/Vol]34 umol/MKwvajw08-88Ihfee Health- [place], KYComment on above:Performed By: #### ATRAZO #### [facility] [address] [place], [place] [id number] Television Servicer: Kodak Akbar MD #### FELICIA BUNN LIP, CDP #### [facility] [address] [place] [address] Television Servicer: Frank Otero Chestnut Ridge Centerrosaura 13-65-2848Yxjksadmpjh in LDL [Mass/Vol]78 mg/dL<100[place], KYCholesterol [Mass/Vol]139 mg/dL<200 [facility]- [place], KYComment on above: Cholesterol Guidelines: <200 Desirable 200-240 Borderline >240 Undesirable Cholesterol in HDL [Mass/Vol]20 mg/dLLow>40[facility]- [place], KYComment on above: HDL Guidelines: <40 Undesirable 40-59 Borderline >59 Desirable Cholesterol in LDL [Mass/Vol]0 - 130 mg/dLFisher-Titus Medical Center Health- [place], KYComment on above: Calculation not valid for Triglyceride value greater than 400 mg/dL. Direct LDL reflexed LDL Guidelines: <100 Desirable 100-129 Near to/above Desirable 130-159 Borderline >159 Undesirable Direct (measured) LDL and calculated LDL are not interchangeable tests. Triglyceride [Mass/Vol]406 mg/dLHigh<150[facility]- [place], KYComment on above: Triglyceride Guidelines: <150 Desirable 150-199 Borderline 200-499 High >499 Very high Based on AHA Guidelines for fasting triglyceride, July 2012. EKG 12 Leadon [id number] Izzq01WPBJonob Health- [place], KYAtrial Azvj59UGQ [facility]- [place], KYAtrial Zgtn88WUZPyfrb Health- [place], KYP Flvw48wwmdmnwXxggs Health- [place], [place] Pprq45qbspkafZzcps Health- [place], [place]YP Dikd94nxhkyvjGllyy Health- [place], [place]YP-R Jggxmkwx085 msMercy Health- [place], [place]-R Auhnruow816 msMercy Health- [place], [place]YP-R Qemsommx878 msMercy Health- [place], KYQ-T Qjyowhye542 msMercy Health- [place], KYQ- T Mwcjlvta578 msMercy Health- [place], KYQ-T Xjddkkov235 msMercy [facility]- [place], KYQRS Ftflakoy81 msMercy Health- [place], KYQTc Calculation ()454 msMercy Health- [place], KYQTc Calculation ()481 msMercy Health- [place], KYQTc Calculation ()421 msMercy Health- [place], KYR Pfvd54qrxnmunFrzfu Health- [place], [place] Nnzr84wimgghoHatkk Health- [place], [place]YR Itue65zlcagzhDmfdt Health- [place], KYT Dffa66ktwdkgrZpxnk Health- [place], KYT Udwf23vgsrawaToiqc Health- [place], KYT Ubgj54hgrywpaPifhg Health- [place], [place] Ventricular Olbi78OPKVvske Health- [place], KYVentricular Vlju89YCBQbtnq Health- [place], KYVentricular Imvr76LTQTsvkl Health- [place], KYEdi, Mhpn Incoming Ekg Results From [facility] - 07/31/2020 11:14 AM EDT Normal sinus rhythm Normal ECG When compared with ECG of 30-JUL-2020 13:41, Premature ventricular complexes are no longer PresentMer Health- [place], KYNormal sinus rhythm Normal ECG When compared with ECG of 30-JUL-2020 13:41, Premature ventricular complexes are no longer PresentMer Health- [place], KYEdi, Mhpn Incoming Ekg Results From [facility] - 07/31/2020 11:14 AM EDT Normal sinus rhythm Possible Left atrial enlargement Rightward axis Borderline ECG When compared with ECG of 30-JUL-2020 13:50, T wave amplitude has increased in Anterolateral leadsFisher-Titus Medical Center Health- [place], KYEdi, Mhpn Incoming Ekg Results From [facility] - 07/31/2020 11:14 AM EDT Sinus rhythm with frequent Premature ventricular complexes in a pattern of bigeminy Otherwise normal ECG When compared with ECG of 30-JUL-2020 13:35, Vent. rate has increased BY 29 BPM QT has lengthenedFisher-Titus Medical Center Health- [place], KYSinus rhythm with frequent Premature ventricular complexes in a pattern of bigeminy Otherwise normal ECG When compared with ECG of 30-JUL-2020 13:35, Vent. rate has increased BY 29 BPM QT has lengthenedGood Samaritan Hospitalcy Health- [place], KYNormal sinus rhythm Possible Left atrial enlargement Rightward axis Borderline ECG When compared with ECG of 30-JUL-2020 13:50, T wave amplitude has increased in Anterolateral leadsMer Health- [place], [place] Atrial Rqam64GNTCvygu Health- [place], KYP Lazr71sbqcoqiQxpxf Health- [place], KYP-R Mcwagbpr417 msMercy Health- [place], KYQ-T Yzgafegj699 msMercy Health- [place], KYQRS Mogiqghi072 msMercy Health- [place], KYQTc Calculation (Bazett)410 msMercy Health- [place], KYR Njcl30wanqosbBtyow Health- [place], KYT Yagi24fihwjtzZzlze Health- [place], [place] Ventricular Vmjh45IEDBcupx Health- [place], KYEdi, Mhpn Incoming Ekg Results From [facility] - 07/31/2020 11:14 AM EDT Sinus bradycardia with frequent Premature ventricular complexes Otherwise normal ECG No previous ECGs availableParkview Health, AZSinus bradycardia with frequent Premature ventricular complexes Otherwise normal ECG No previous ECGs available [facility], AZHEMOGLOBIN A1Con [id number] [Mass/Vol]209 mg/dLParkview Health, AZComment on above:The ADA and AACC recommend providing the estimated average glucose result to permit better patient understanding of their HBA1c result. HbA1c (Bld) [Mass fraction]8.9 %High4 - 6 %[facility], AZInterpretation and review of laboratory resultsAbnormSelect Medical Specialty Hospital - Boardman, Inc, AZHEPATIC FUNCTION PANELon 16-08-7675Utcsopb [Mass/Vol]4 g/dL3.5 - 5.2 g/dLParkview Health, [place] Albumin/Globulin [Mass ratio]2.1 {ratio}[facility], AZALP [Catalytic activity/Vol]39 U/LLow40 - 129 U/LMMercy Health Lor[facility] Hospital, AZALT [Catalytic activity/Vol]18 U/L5 - 41 U/LMMercy Health Lorain Hospital, KYAST [Catalytic activity/Vol]15 U/L<40[facility], AZBilirubin Ql (U)0.52 mg/dL0.3 - 1.2 mg/dLParkview Health, AZBilirubin, Indirect0.39 mg/dL0 - 1 mg/dLParkview Health, [place] Bilirubin.direct [Mass/Vol]0.13 mg/dL<0.31[facility], AZGlobulin (S) [Mass/Vol]NOT REPORTED1.5 - 3.8 g/dLParkview Health, AZInterpretation and review of laboratory resultsAbnoOhioHealth [facility], AZProtein [Mass/Vol]5.9 g/dLLow6.4 - 8.3 g/dLParkview Health, AZHemoglobin A1Con 95-25-2064BkJ1j (Bld) [Mass fraction]209 mg/dLNoChildren's Hospital for RehabilitationComment on above: Result Comment: The ADA and AACC recommend providing the estimated average glucose result to permit better patient understanding of their HBA1c result.Performed By: #### ATRAZO #### [facility] [address] [place] [address] Television Servicer: Kodak Akbar MD #### CMPX, EDTOX, LIP, CDP #### [facility] [address] [place] [address] [phone] Television Servicer: Frank Otero MDHbA1c (Bld) [Mass fraction]8.9 %High4.0-6.0Salem City HospitalComment on above:Performed By: #### ATRAZO #### [facility] [address] [place] [address] Television Servicer: Kodak Akbar MD #### CMPX, EDTOX, LIP, CDP #### [facility] [address] [place] [address] [phone] Television Servicer: Frank Otero MDLDL Chol, Directon 31-48-1862RUT Chol, Mueqtt94 mg/dLNormal<100Salem City HospitalComment on above:Performed By: #### ATRAZO #### [facility] [address] [place] [address] Television Servicer: Kodak Akbar MD #### CMPX, EDTOX, LIP, CDP #### [address] [phone] Television Servicer: Frank Otero MDLipid Profileon 12-78-1647Mojgxpnnloo in LDL [Mass/Vol]Normal0-130Salem City HospitalComment on above:Result Comment: Calculation not valid for Triglyceride value greater than 400 mg/dL. Direct LDL reflexed LDL Guidelines: <100 Desirable 100-129 Near to/above Desirable 130-159 Borderline >159 Undesirable Direct (measured) LDL and calculated LDL are not interchangeable tests.Performed By: #### TSHX, LIPR, GLYHGB, MISCR, LDLDIR #### [facility] [address] [place] [address] [phone] Television Servicer: EDNA Modiholesterol [Mass/Vol]139 mg/dLNormal<200Sal[facility] City HospitalComment on above:Result Comment: Cholesterol Guidelines: <200 Desirable 200-240 Borderline >240 UndesirablePerformed By: #### TSHX, LIPR, GLYHGB, MISCR, LDLDIR #### [address] [phone] Television Servicer: EDNA Modiholesterol in HDL [Mass/Vol]20 mg/dLLow>40Salem City HospitalComment on above:Result Comment: HDL Guidelines: <40 Undesirable 40-59 Borderline >59 DesirablePerformed By: #### TSHX, LIPR, GLYHGB, MISCR, LDLDIR #### [address] [address] Television Servicer: Dodie oMdi.total/Cholesterol in HDL [Mass ratio]7.0 {ratio}High<5Salem City HospitalComment on above: Performed By: #### TSHX, LIPR, GLYHGB, MISCR, LDLDIR #### [employer] [address] [place] [address] Television Servicer: Frank Otero MDTriglyceride [Mass/Vol]406 mg/dLHigh<150Salem City HospitalComment on above:Result Comment: Triglyceride Guidelines: <150 Desirable 150-199 Borderline 200-499 High >499 Very high Based on AHA Guidelines for fasting triglyceride, July 2012.Performed By: #### TSHX, LIPR, GLYHGB, MISCR, LDLDIR #### [employer] [address] [place] [address] [phone] Television Servicer: EDNA Modiholesterol in VLDL [Mass/Vol]NOT REPORTEDNormal 1-30Sal[facility] City HospitalComment on above:Performed By: #### TSHX, LIPR, GLYHGB, MISCR, LDLDIR #### [employer] [address] [place] [phone] Television Servicer: Frank Otero MDLiver Profileon [id number] [Mass/Vol]4.0 g/dLNormal3.5-5.2[facility] Medical CenterComment on above:Performed By: #### ATRAZO #### [facility] [address] [place] [address] Television Servicer: Kodak Akbar MD #### CMPX, EDTOX, LIP, CDP #### [facility] [address] [place] [phone] Television Servicer: Frank Otero MDAlbumin/Globulin [Mass ratio]2.1 {ratio}Normal 1.0-2.5Salem City HospitalComment on above:Performed By: #### ATRAZO #### [facility] [address] [place] [address] Television Servicer: Kodak Akbar MD #### CMPX, EDTOX, LIP, CDP #### [facility] [address] [place] [address] Television Servicer: Fernando Modiline Phos39 U/NXok34-020Npuyg [facility] Medical CenterComment on above:Performed By: #### ATRAZO #### [facility] [address] [place] [phone] Television Servicer: Kodak Akbar MD #### CMPX, EDTOX, LIP, CDP #### [facility] [address] [place] [phone] Television Servicer: Frank Otero MDALT [Catalytic activity/Vol]18 U/LNormal5-41 [facility] City HospitalComment on above:Performed By: #### ATRAZO #### [facility] [address] [place] [address] Television Servicer: Kodak Akbar MD #### CMPX, EDTOX, LIP, CDP #### [facility] [address] [place] [address] Television Servicer: Frank Otero MDAST [Catalytic activity/Vol]15 U/LNormal<40[facility] City HospitalComment on above:Performed By: #### ATRAZO #### [facility] [address] [place] [address] Television Servicer: Kodak Akbar MD #### CMPX, EDTOX, LIP, CDP #### [facility] [address] [place] [address] Television Servicer: Frank Otero MDBilirubin Ql (U)0.52 mg/dLNormal0.3-1.2MO'Connor HospitalComment on above:Performed By: #### ATRAZO #### [facility] [address] [place] [address] Television Servicer: Kodak Akbar MD #### CMPX, EDTOX, LIP, CDP #### [address] [address] Television Servicer: Frank Otero MDBilirubin, Indirect0.39 mg/dLNormal0.00-1.00 [facility] City HospitalComment on above:Performed By: #### ATRAZO #### [facility] [address] [place] [address] [phone] Television Servicer: Kodak Akbar MD #### CMPX, EDTOX, LIP, CDP #### [address] [address] Television Servicer: Frank Otero MDBilirubin.direct [Mass/Vol]0.13 mg/dLNormal<0.31 [facility] City HospitalComment on above:Performed By: #### ATRAZO #### [facility] [address] [place] [address] Television Servicer: Kodak Akbar MD #### CMPX, EDTOX, LIP, CDP #### [facility] [address] [place] [address] Television Servicer: MILAGROS Modirotein [Mass/Vol]5.9 g/dLLow6.4-8.3MO'Connor HospitalComment on above:Performed By: #### ATRAZO #### [facility] [address] [place] [address] Television Servicer: Kodak Akbar MD #### CMPX, EDTOX, LIP, CDP #### [facility] [address] [place] [address] [phone] Television Servicer: Frank Otero MDGlobulin (S) [Mass/Vol]NOT REPORTEDNormal1.5-3.8 [facility] City HospitalComment on above:Performed By: #### ATRAZO #### [facility] [address] [place] [address] Television Servicer: Kodak Akbar MD #### CMPX, EDTOX, LIP, CDP #### [address] [phone] Television Servicer: Catherine Modi [facility] Hospitalon [id number] NameGILA REG[facility] [id number] [facility] Medical CenteralSalem City HospitalComment on above:Performed By: #### ATRAZO #### [facility] [address] [place] [address] [phone] Television Servicer: Kodak Akbar MD #### CMPX, EDTOX, LIP, CDP #### [address] [phone] Television Servicer: Frank Otero MDOtherrosaura [id number] Umsj17GAZQfrie Health- [place], [place] Veoz94moekriwHzzzi Health- [place], [place]-R Qxcaevub418 [facility]- [place], [place] Q-T Bmjwxtzw655 [facility]- [place], KYQRS Pgguicog288 [facility], KYQTc Calculation ()406 msMGood [facility]aritan Hospital [place], [place] Loht18zejswklMmkqf Health- [place], KYT Njiw60cfkemgcCiwwpCleveland Clinic [facility], KYVentricular Gfxf74HEPNwjcqMercy Health [facility], [place] Sergey, Mhpn Incoming Ekg Results From [place] - 07/31/2020 11:14 AM EDT Normal sinus rhythm Normal ECG When compared with ECG of 30-JUL-2020 13:50, No significant change was foundParkview Health, KYNormal sinus rhythm Normal ECG When compared with ECG of 30-JUL-2020 13:50, No significant change was found [facility], KYCholesterol in VLDL [Mass/Vol]NOT REPORTED1 - 30 mg/dLParkview Health, AZCholesterol.total/Cholesterol in HDL [Mass ratio]7 {ratio}High<5 [facility], AZInterpretation and review of laboratory resultsAbBellevue Hospital, AZPO Glucose Fingerstickon 64-71-5139Uccfguv [Mass/Vol]239 mg/dL High75 - 110 mg/dLParkview Health, AZInterpretation and review of laboratory resultsAbBellevue Hospital, AZGlucose [Mass/Vol]213 mg/iCWixk71 - 110 mg/dL [facility], AZInterpretation and review of laboratory resultsAbBellevue Hospital, AZGlucose [Mass/Vol]190 mg/aXOzuc29 - 110 mg/dLParkview Health, [place] Interpretation and review of laboratory resultsAbBellevue Hospital, [place] Glucose [Mass/Vol]160 mg/pHSyof74 - 110 mg/dLParkview Health, AZInterpretation and review of laboratory resultsAbBellevue Hospital, AZTS w/reflex to FT4 on [id number] Qn4.89 m[IU]/LNormal0.30-5.00[facility] Comment on above:Performed By: #### TSHX, LIPR, GLYHGB, MISCR, LDLDIR #### [facility] [address] [place] [address] Television Servicer: Frank Otero MDThyroidon 70-09-1071CVT Qn4.89 m[IU]/LMercCentra [facility]- [place], KYBlood Gason 70-33-7737Inwhhl saturation in Ixzkf158 %High60 - 85 % [facility]- [place], KYCBC Auto Differentialon 07-51-1055Fxwoxeapm (Bld) [#/Vol] 0.08 10*3/[facility]- [place], KYBasophils/100 WBC (Bld)1 %0 - 2 %[facility] [place], KYDifferential TypeNOT REPORTEDDoctors Hospital- [place], KYEosinophils (Bld) [#/Vol] 0.07 10*3/[facility]- [place], KYEosinophils/100 WBC (Bld)1 %1 - 4 %[facility]- [place], KYErythrocyte distribution width (RBC) [Ratio]12.6 %11.8 - 14.4 %[facility]- [place], KYHematocrit (Bld) [Volume fraction]53.6 %High40.7 - 50.3 %[facility]- [place], KYHemoglobin (Bld) [Mass/Vol]19.2 g/sGYkio79 - 17 g/dLBlanchard Valley Health System [facility] [place], KYImmature granulocytes (Bld) [#/Vol]0.08 10*3/[facility]- [place], [place] Immature granulocytes (Bld) [#/Vol]1 %Xnqa4PrbhcBlanchard Valley Health [facility] [place], KYInterpretation and review of laboratory resultsAbnormWilson Health [place], KYLymphocytes (Bld) [#/Vol]4.09 10*3/[facility]- [place], KYLymphocytes/100 WBC (Bld)43 %25 - 45 % [facility]- [place], KYMCH (RBC) [Entitic mass]31.8 pg25.2 - 33.5 pgDoctors Hospital- [place], KYMCHC (RBC) [Mass/Vol]35.8 g/bZKyuf08.4 - 34.8 g/dLDoctors Hospital- [place], KYMCV (RBC) [Entitic vol]88.7 fL82.6 - 102.9 fLDoctors Hospital- [place], KYMonocytes (Bld) [#/Vol]0.67 10*3/[facility], KYMonocytes/100 WBC (Bld)7 %2 - 8 %[facility], KYPlatelet mean volume (Bld) [Entitic vol]10.9 fL8.1 - 13.5 fLParkview Health, KYPlatelets (Bld) [#/Vol]NOT REPORTEDParkview Health, KYPlatelets (Bld) [#/Vol]226 10*3/uLParkview Health, KYRBC (Bld) [#/Vol]6.04 10*6/uLHigh 4.21 - 5.77 m/uLParkview Health, AZRBC morphology finding Nom (Bld)NOT REPORTED [facility], AZSegmented neutrophils/100 WBC (Bld)47 %34 - 64 %[facility], DENITASegs Absolute4.47[facility], KYWBC (Bld) [#/Vol]0.0 10*3/uL 0.0 per 100 WBCParkview Health, AZWBC (Bld) [#/Vol]9.5 10*3/[facility], KYWBC MorphologyNOT REPORTEDParkview Health, AZCBC with Diffon [id number]. Basophil0.08 k/uLNormal0.00-0.20[facility] City HospitalComment on above:Performed By: #### ATRAZO #### [facility] [address] [place] [address] Television Servicer: Kodak Akbar MD #### CMPX, EDTOX, LIP, CDP #### [facility] [address] [place], [place] [phone] Television Servicer: Luis Enrique Modi.Imm.Granulocyte0.08 k/uLNormal0.00-0.30[facility] City HospitalComment on above:Performed By: #### ATRAZO #### [facility] [address] [place] [address] Television Servicer: Kodak Akbar MD #### CMPX, EDTOX, LIP, CDP #### [facility] [address] [place] [address] Television Servicer: Luis Enrique Modi.Neutrophil (Seg)4.47 k/uLNormal1.80-8.00 [facility] HospitalComment on above:Performed By: #### ATRAZO #### [facility] [address] [place] [address] Television Servicer: Kodak Akbar MD #### CMPX, EDTOX, LIP, CDP #### [address] [address] Television Servicer: Frank Otero MDBasophils/100 WBC (Bld)1 %Normal0-2MO'Connor HospitalComment on above:Performed By: #### ATRAZO #### [facility] [address] [place] [address] Television Servicer: Kodak Akbar MD #### CMPX, EDTOX, LIP, CDP #### [address] [address] Television Servicer: Frank Otero MDEosinophils (Bld) [#/Vol]0.07 10*3/uLNormal 0.00-0.44[facility] City HospitalComment on above:Performed By: #### ATRAZO #### [facility] [address] [place] [address] Television Servicer: Kodak Akbar MD #### CMPX, EDTOX, LIP, CDP #### [facility] [address] [place] [address] Television Servicer: Frank Otero MDEosinophils/100 WBC (Bld)1 %Normal1-4Sal[facility] City HospitalComment on above:Performed By: #### ATRAZO #### [facility] [address] [place] [address] Television Servicer: Kodak Akbar MD #### CMPX, EDTOX, LIP, CDP #### [place] [phone] Television Servicer: Frank Otero MDErythrocyte distribution width (RBC) [Ratio]12.6 %Nnrbab39.8-14.4Sal[facility] City HospitalComment on above:Performed By: #### ATRAZO #### [facility] [address] [place] [address] Television Servicer: Kodak Akbar MD #### CMPX, EDTOX, LIP, CDP #### [place] [address] Television Servicer: Frank Otero MDHematocrit (Bld) [Volume fraction]53.6 %High 40.7-50.3[facility]omp[facility] Valley Medical CenterComment on above:Performed By: #### ATRAZO #### [facility] [address] [place] [address] Television Servicer: Kodak Akbar MD #### CMPX, EDTOX, LIP, CDP #### [place] [phone] Television Servicer: Frank Otero MDHemoglobin (Bld) [Mass/Vol]19.2 g/dLHigh 13.0-17.0[facility] City HospitalComment on above:Performed By: #### ATRAZO #### [facility] [address] [place] [address] Television Servicer: Kodak Akbar MD #### CMPX, EDTOX, LIP, CDP #### [place] [phone] Television Servicer: Frank Otero MDImmature granulocytes (Bld) [#/Vol]1 %Yrdw6CvgxiSalem City HospitalComment on above:Performed By: #### ATRAZO #### [facility] [address] [place] [address] Television Servicer: Kodak Akbar MD #### CMPX, EDTOX, LIP, CDP #### [address] [phone] Television Servicer: Frank Otero MDLymphocytes (Bld) [#/Vol]4.09 10*3/uLNormal 1.20-5.20[facility] City HospitalComment on above:Performed By: #### ATRAZO #### [facility] [address] [place] [address] Television Servicer: Kodak Akbar MD #### CMPX, EDTOX, LIP, CDP #### [address] [phone] Television Servicer: Frank Otero MDLymphocytes/100 WBC (Bld)43 %Tbuufm09-57RftyfSalem City HospitalComment on above:Performed By: #### ATRAZO #### [facility] [address] [place] [address] Television Servicer: Kodak Akbar MD #### CMPX, EDTOX, LIP, CDP #### [address] [phone] Television Servicer: BHANU ModiCH (RBC) [Entitic mass]31.8 tcXucwnt36.2-33.5 [facility] City HospitalComment on above:Performed By: #### ATRAZO #### [facility] [address] [place] [address] Television Servicer: Kodak Akbar MD #### CMPX, EDTOX, LIP, CDP #### [address] [phone] Television Servicer: BHANU ModiCHC (RBC) [Mass/Vol]35.8 g/uSMwgt05.4-34.8[facility] City HospitalComment on above:Performed By: #### ATRAZO #### [facility] [address] [place] [address] Television Servicer: Kodak Akbar MD #### CMPX, EDTOX, LIP, CDP #### [address] [address] Television Servicer: BHANU ModiCV (RBC) [Entitic vol]88.7 nSPlzomo41.6-102.9 [facility] HospitalComment on above:Performed By: #### ATRAZO #### [facility] [address] [place] [address] Television Servicer: Kodak Akbar MD #### CMPX, EDTOX, LIP, CDP #### [address] [address] Television Servicer: BHANU Modionocytes (Bld) [#/Vol]0.67 10*3/uLNormal 0.10-1.40[facility] City HospitalComment on above:Performed By: #### ATRAZO #### [facility] [address] [place] [address] Television Servicer: Kodak Akbar MD #### CMPX, EDTOX, LIP, CDP #### [address] [address] Television Servicer: BHANU Modionocytes/100 WBC (Bld)7 %Normal2-8Sal[facility] City HospitalComment on above:Performed By: #### ATRAZO #### [facility] [address] [place] [address] Television Servicer: Kodak Akbar MD #### CMPX, EDTOX, LIP, CDP #### [address] [address] Television Servicer: Frank Madoff, MDNeutrophil (Seg)47 %Emkgxo98-67UajonSalem City HospitalComment on above:Performed By: #### ATRAZO #### [facility] [address] [place] [address] Television Servicer: Kodak Akbar MD #### CMPX, EDTOX, LIP, CDP #### [address] [address] Television Servicer: Frank Otero MDNRBC Automated0.0 per 100 WBCNormal0.0Sal[facility] City HospitalComment on above:Performed By: #### ATRAZO #### [facility] [address] [place] [address] Television Servicer: Kodak Akbar MD #### CMPX, EDTOX, LIP, CDP #### [place] [address] Television Servicer: Viki Modi mean volume (Bld) [Entitic vol]10.9 fL Normal8.1-13.5Sal[facility] City HospitalComment on above:Performed By: #### ATRAZO #### [facility] [address] [place] [address] Television Servicer: Kodak Akbar MD #### CMPX, EDTOX, LIP, CDP #### [place] [address] Television Servicer: Irvin Modi (Bld) [#/Vol]226 10*3/cLDtnida422-675 [facility] City HospitalComment on above:Performed By: #### ATRAZO #### [facility] [address] [place] [address] Television Servicer: Kodak Akbar MD #### CMPX, EDTOX, LIP, CDP #### [address] [address] Television Servicer: LACY Modi (Bld) [#/Vol]6.04 10*6/uLHigh4.21-5.77Sal[facility] City HospitalComment on above:Performed By: #### ATRAZO #### [facility] [address] [place] [address] Television Servicer: Kodak Akbar MD #### CMPX, EDTOX, LIP, CDP #### [facility] [address] [place] [address] Television Servicer: Frank Otero MDWEILL CORNELL [facility] (Bld) [#/Vol]9.5 10*3/uLNormal4.5-13.5[facility] City HospitalComment on above:Performed By: #### ATRAZO #### [facility] [address] [place] [address] Television Servicer: Kodak Akbar MD #### CMPX, EDTOX, LIP, CDP #### [facility] [address] [place] [address] Television Servicer: Kay Modi PerformedNOT REPORTEDNoChildren's Hospital for RehabilitationComment on above:Performed By: #### ATRAZO #### [facility] [address] [place] [address] Television Servicer: Kodak Akbar MD #### CMPX, EDTOX, LIP, CDP #### [facility] [address] [place] [address] Television Servicer: Irvin Modi (Bld) [#/Vol]NOT REPORTEDUniversity Hospitals Samaritan Medical CenterComment on above:Performed By: #### ATRAZO #### [facility] [address] [place] [address] Television Servicer: Kodak Akbar MD #### CMPX, EDTOX, LIP, CDP #### [facility] [address] [place] [address] [phone] Television Servicer: EVAN Modi morphology finding Nom (Bld)NOT REPORTED [facility]itan Medical CenterComment on above:Performed By: #### ATRAZO #### [facility] [address] [place] [address] Television Servicer: Kodak Akbar MD #### CMPX, EDTOX, LIP, CDP #### [facility] [address] [place] [address] [phone] Television Servicer: Frank Otero MDW MorphologyNOT REPORTEDNormalSalem City HospitalComment on above:Performed By: #### ATRAZO #### [facility] [address] [place] [address] Television Servicer: Kodak Akbar MD #### CMPX, EDTOX, LIP, CDP #### [facility] [address] [place] [address] [phone] Television Servicer: EDNA Modicentral valley medical center Metabolic Pr/rfx MGon [id number] [Catalytic activity/Vol]20 U/LNormal<40[facility] City HospitalComment on above:Performed By: #### ATRAZO #### [facility] [address] [place] [address] Television Servicer: Kodak Akbar MD #### CMPX, EDTOX, LIP, CDP #### [facility] [address] [place] [phone] Television Servicer: Frank Otero MD(cont.)[facility] Comment on above:Result Comment: Average GFR for <20 years old not available. Chronic Kidney Disease: <60 mL/min/1.73sq m Kidney failure: <15 mL/min/1.73sq m eGFR calculated using average adult body mass. Additional eGFR calculator available at: http://www.Cytodyn.com/multiple_crcl_2012.htmPerformed By: #### ATRAZO #### [facility] [address] [place] [address] Television Servicer: Kodak Akbar MD #### CMPX, EDTOX, LIP, CDP #### [address] [address] Television Servicer: Frank Otero MDAlbumin [Mass/Vol]4.8 g/dLNormal3.5-5.2Mpromedica defiance regional hospitaly [facility] Medical CenterComment on above:Performed By: #### ATRAZO #### [facility] [address] [place] [address] Television Servicer: Kodak Akbar MD #### CMPX, EDTOX, LIP, CDP #### [address] [phone] Television Servicer: Frank Otero MDAlbumin/Globulin [Mass ratio]1.9 {ratio}Normal 1.0-2.5Sal[facility] City HospitalComment on above:Performed By: #### ATRAZO #### [facility] [address] [place] [address] Television Servicer: Kodak Akbar MD #### CMPKatalina, EDTOX, LIP, CDP #### [address] [phone] Television Servicer: Kaylen Modi Phos49 U/CBeghcv13-121InhaaSalem City HospitalComment on above:Performed By: #### ATRAZO #### [facility] [address] [place] [address] Television Servicer: Kodak Akbar MD #### CMPX, EDTOX, LIP, CDP #### [address] [phone] Television Servicer: Frank Otero MDALT [Catalytic activity/Vol]24 U/LNormal5-41 [facility] HospitalComment on above:Performed By: #### ATRAZO #### [facility] [address] [place] [address] Television Servicer: Kodak Akbar MD #### CMPX, EDTOKatalina, LIP, CDP #### [address] [address] Television Servicer: Frank Otero MDAnion gap [Moles/Vol]13 mmol/LNormal9-17[facility] HospitalComment on above:Performed By: #### ATRAZO #### [facility] [address] [place] [address] Television Servicer: Kodak Akbar MD #### CMPX, FELICIA, LIP, CDP #### [address] [phone] Television Servicer: Frank Otero MDBilirubin Ql (U)0.84 mg/dLNormal0.3-1.2MO'Connor HospitalComment on above:Performed By: #### ATRAZO #### [facility] [address] [place] [address] Television Servicer: Kodak Akbar MD #### SEPIDEH, FELICIA, LIP, CDP #### [address] [phone] Television Servicer: EDNA Modialcium [Mass/Vol]9.6 mg/dLNormal8.6-10.4[facility] City HospitalComment on above:Performed By: #### ATRAZO #### [facility] [address] [place] [address] Television Servicer: Kodak Akbar MD #### CMPX, EDTOKatalina, LIP, CDP #### [address] [phone] Television Servicer: EDNA Modihloride [Moles/Vol]105 mmol/EMubqat37-220AvgymSalem City HospitalComment on above:Performed By: #### ATRAZO #### [facility] [address] [place] [address] Television Servicer: Kodak Akbar MD #### CMPX, EDTOX, LIP, CDP #### [address] [address] Television Servicer: EDNA ModiO2 [Moles/Vol]21 mmol/KLmgvee36-26LzexwSalem City HospitalComment on above:Performed By: #### ATRAZO #### [facility] [address] [place] [address] Television Servicer: Kodak Akbar MD #### CMPX, EDTOX, LIP, CDP #### [address] [address] Television Servicer: EDNA Modireatinine [Mass/Vol]0.91 mg/dLNormal0.70-1.20 [facility] HospitalComment on above:Performed By: #### ATRAZO #### [facility] [address] [place] [address] Television Servicer: Kodak Akbar MD #### CMPX, EDTOX, LIP, CDP #### [address] [address] Television Servicer: Frank Otero MDGFR,non AmerPediatric GFR requires additional information. Refer to NKDEP website forNormal>60Sal[facility] City HospitalComment on above:Result Comment: calculator.Performed By: #### ATRAZO #### [facility] [address] [place] [address] Television Servicer: Kodak Akbar MD #### CMPX, EDTOX, LIP, CDP #### [address] [phone] Television Servicer: Frank Otero MDGlucose [Mass/Vol]198 mg/bOEjmh71-45Kkref [facility] Medical CenterComment on above:Performed By: #### ATRAZO #### [facility] [address] [place] [address] Television Servicer: Kodak Akbar MD #### CMPX, EDTOX, LIP, CDP #### [address] [address] Television Servicer: MILAGROS Modiotassium [Moles/Vol]3.9 mmol/LNormal3.7-5.3 [facility] HospitalComment on above:Performed By: #### ATRAZO #### [facility] [address] [place] [address] Television Servicer: Kodak Akbar MD #### CMPX, EDTOX, LIP, CDP #### [place] [address] Television Servicer: MILAGROS Modirotein [Mass/Vol]7.3 g/dLNormal6.4-8.3Mpromedica defiance regional hospitaly [facility] Medical CenterComment on above:Performed By: #### ATRAZO #### [facility] [address] [place] [address] Television Servicer: Kodak Akbar MD #### CMPX, EDTOX, LIP, CDP #### [place] [address] Television Servicer: Frank Otero MDSodium [Moles/Vol]139 mmol/WPodrhm753-953OymdaSalem City HospitalComment on above:Performed By: #### ATRAZO #### [facility] [address] [place] [address] Television Servicer: Kodak Akbar MD #### CMPX, EDTOX, LIP, CDP #### [address] [address] Television Servicer: Frank Otero MDUrea nitrogen [Mass/Vol]13 mg/dLNormal6-20[facility] HospitalComment on above:Performed By: #### ATRAZO #### [facility] [address] [place] [address] Television Servicer: Kodak Akbar MD #### CMPX, EDTOX, LIP, CDP #### [facility] [address] [place] [address] [phone] Television Servicer: LELIA Modi/LANEY Alfaro REPORTEDNormal9-20[facility] HospitalComment on above:Performed By: #### ATRAZO #### [facility] [address] [place] [address] Television Servicer: Kodak Akbar MD #### CMPX, EDTOX, LIP, CDP #### [facility] [address] [place] [address] [phone] Television Servicer: RADHA Modi,Karol AmerNOT REPORTEDNormal>60[facility] HospitalComment on above:Performed By: #### ATRAZO #### [facility] [address] [place] [address] Television Servicer: Kodak Akbar MD #### CMPX, EDTOX, LIP, CDP #### [facility] [address] [place] [address] [phone] Television Servicer: WILLIAM Moditaging:NOT REPORTEDNormalMerSan Joaquin General HospitalComment on above:Performed By: #### ATRAZO #### [facility] [address] [place] [address] Television Servicer: Kodak Akbar MD #### CMPX, EDTOX, LIP, CDP #### [facility] [address] [place] [address] Television Servicer: Santos Modi [id number] [Mass/Vol]mg/dL<10 mg/dLParkview Health, KYDrug Scr, Abuse, Uron [id number](s),Ur NegativeNormalNEGMercy [facility] Medical CenterComment on above:Result Comment: (Positive cutoff 1000 ng/mL)Performed By: #### BRANDIN #### [facility] HospitalBad Juju [facility], [employer] [address] [place] [address] Television Servicer: Frank Otero MDBarbiturate(s),UrNegativeNormalNEGSalem City HospitalComment on above:Result Comment: (Positive cutoff 200 ng/mL)Performed By: #### BRANDIN #### [address] [address] Television Servicer: Frank Otero MDBase excess Calc (Bld) [Moles/Vol]NegativeNormal NEGSalem City HospitalComment on above:Result Comment: (Positive cutoff 300 ng/mL)Performed By: #### BRANDIN #### [facility] [address] [place] [address] Television Servicer: Frank Otero MDBenzodiazepine(s)NegativeNormalNEGSalem City HospitalComment on above:Result Comment: (Positive cutoff 200 ng/mL)Performed By: #### BRANDIN #### [facility] [address] [place] [address] Television Servicer: EDNA Modiannabinoid(s),UrNegativeNormalNEGMerSan Joaquin General HospitalComment on above:Result Comment: (Positive cutoff 50 ng/mL)Performed By: #### BRANDIN #### [address] [address] Television Servicer: Frank Otero MDInterpretive InfoAssay provides medical screening only. The absence of expected drug(s) and/orNormalMercy Lompoc Valley Medical CenterComment on above:Result Comment: metabolite(s) may indicate diluted or adulterated urine, limitations of testing or timing of collection. Testing for legal purposes should be confirmed by another method. To request confirmation of test result, please call the lab within 7 days of sample submission.Performed By: #### BRANDIN #### [address] [address] Television Servicer: BHANU Modiethadone Ql (U)NegativeNormalNEGMerSan Joaquin General HospitalComment on above:Result Comment: (Positive cutoff 300 ng/mL)Performed By: #### BRANDIN #### [address] [address] Television Servicer: Frank Otero MDOpiate(s), UrNegativeNormalNEGMerSan Joaquin General HospitalComment on above:Result Comment: (Positive cutoff 300 ng/mL)Performed By: #### BRANDIN #### [address] [address] Television Servicer: Frank Otero MDOxycodone, UrineNegativeNormalNEGSalem City HospitalComment on above:Result Comment: (Positive cutoff 100 ng/mL)Performed By: #### BRANDIN #### [address] [address] Television Servicer: MILAGROS Modihencyclidine, UrNegativeNormalNEGMerSan Joaquin General HospitalComment on above:Result Comment: (Positive cutoff 25 ng/mL)Performed By: #### BRANDIN #### [address] [address] Television Servicer: Frank Otero MDBuprenorphrine, UrNOT REPORTEDNormalNEGMercy Lompoc Valley Medical CenterComment on above:Performed By: #### BRANDIN #### [address] [address] Television Servicer: BHANU ModiDMA, UrineNOT REPORTEDNormalNEGMerSan Joaquin General HospitalComment on above:Performed By: #### BRANDIN #### [address] [place] [address] Television Servicer: BHANU Modiethamphetamine, UrNOT REPORTEDNormalNEGSalem City HospitalComment on above:Performed By: #### BRANDIN #### [facility] [address] [place] [address] Television Servicer: Frank Otero MDPropoxyphene,UrineNOT REPORTEDNormalNEGMerSan Joaquin General HospitalComment on above:Performed By: #### BRANDIN #### [facility] [address] [place] [address] Television Servicer: Frank Otero MDTricyclic antidepressants Screen Ql (U)NOT REPORTEDNormalNEGSalem City HospitalComment on above:Performed By: #### BRANDIN #### [address] [address] Television Servicer: Frank Otero MDHematologyon [phone] Coag (Bld) [Time]NOT REPORTEDParkview Health, KYHematocrit (Bld) [Volume fraction]56 %High41 - 53 % [facility]- [place], KYHemoglobin (Bld) [Mass/Vol]19.1 g/wJNevz37.5 - 17.5 g/dL [facility]- [place], KYLactic Acid,Whole Blon [id number] Acid,Whole Bl1.0 mmol/LNormal0.7-2.1MO'Connor HospitalComment on above:Performed By: #### LACWB #### [facility] [address] [place] [address] Television Servicer: Frank Otero MDLipaseon 57-72-2478Xowbdp [Catalytic activity/Vol]36 U/ATcmuip67-97LyaboSalem City HospitalComment on above: Performed By: #### ATRAZO #### [facility] [address] [address] Television Servicer: Kodak Akbar MD #### CMPX, EDTOX, LIP, CDP #### [facility] [address] [place] [phone] Television Servicer: BHANU Modietabolic Panelon 82-61-9224Pjcwirk [Mass/Vol] 4.8 g/dL3.5 - 5.2 g/dLMercy Health- [place], KYALP [Catalytic activity/Vol]49 U/L40 - 129 U/LMercy Health- [place], KYALT [Catalytic activity/Vol]24 U/L5 - 41 U/LMercy Health- [place], KYAnion gap [Moles/Vol]13 mmol/L9 - 17 mmol/LMercy Health- [place], KYAST [Catalytic activity/Vol]20 U/L<40[facility]- [place], KYCalcium [Mass/Vol]9.6 mg/dL8.6 - 10.4 mg/dLFisher-[facility]- [place], KYChloride [Moles/Vol]105 mmol/L98 - 107 mmol/LMercy Health- [place], KYCO2 [Moles/Vol]21 mmol/L20 - 31 mmol/LMercy Health- [place], KYCreatinine [Mass/Vol]0.91 mg/dL0.7 - 1.2 mg/dLDo[facility]- [place], KYGFR/1.73 sq M predicted among non-blacks MDRD (S/P/Bld) [Vol rate/Area]NOT REPORTEDDoctors Hospital- [place], KYGFR/1.73 sq M predicted among non-blacks MDRD (S/P/Bld) [Vol rate/Area][facility], KYComment on above:Average GFR for <20 years old not available. Chronic Kidney Disease: <60 mL/min/1.73sq m Kidney failure: <15 mL/min/1.73sq m eGFR calculated using average adult body mass. Additional eGFR calculator available at: http://www.Cytodyn.SayNow/multiple_crcl_2011.htm Glucose [Mass/Vol]198 mg/uSQvpp94 - 99 mg/dLFisher-T[facility] Health- [place], KYPotassium [Moles/Vol]3.9 mmol/L3.7 - 5.3 mmol/LMercy Health- [place], KYProtein [Mass/Vol]7.3 g/dL6.4 - 8.3 g/dLParkview Health, KYSodium [Moles/Vol]139 mmol/L135 - 144 mmol/LMMercy Health [facility], KYUrea nitrogen [Mass/Vol]13 mg/dL6 - 20 mg/dLParkview Health, KYAnion gap [Moles/Vol]10 mmol/L7 - 16 mmol/LMMercy Health [facility], [place] Chloride [Moles/Vol]109 mmol/LHigh98 - 107 mmol/LMMercy Health [facility], KYCreatinine [Mass/Vol]1.11 mg/dL0.51 - 1.19 mg/dLParkview Health, KYGFR/1.73 sq M predicted among non-blacks MDRD (S/P/Bld) [Vol rate/Area][facility], KYComment on above:Average GFR for <20 years old not available. Chronic Kidney Disease: <60 mL/min/1.73sq m Kidney failure: <15 mL/min/1.73sq m eGFR calculated using average adult body mass. Additional eGFR calculator available at: http://www.Locqus/multiple_crcl_2012.htm GFR/1.73 sq M predicted among non-blacks MDRD (S/P/Bld) [Vol rate/Area] mL/min/{1.73_m2}>60 mL/minParkview Health, KYGlucose [Mass/Vol]220 mg/iFTfjd28 - 100 mg/dLParkview Health, KYPotassium [Moles/Vol]3.8 mmol/L3.5 - 4.5 mmol/L [facility], KYSodium [Moles/Vol]141 mmol/L138 - 146 mmol/LMMercy Health Lor[facility] Hospital, KYOtheron 63-78-4607Uoxtftfvqnl Screen, UrNegativeNEGATIVEParkview Health, AZComment on above: (Positive cutoff 1000 ng/mL) Barbiturate Screen, UrNegativeNEGATIVEParkview Health, KYComment on above: (Positive cutoff 200 ng/mL) Benzodiazepine Screen, UrineNegativeNEGATIVEParkview Health, KYComment on above: (Positive cutoff 200 ng/mL) Buprenorphine UrineNOT REPORTEDNEGATIVEMercy Health- [place], KYCannabinoid Scrn, Ur NegativeNEGATIVEMercy Health- [place], KYComment on above: (Positive cutoff 50 ng/mL) Cocaine Metabolite, UrineNegativeNEGATIVEMercy Health- [place], KYComment on above: (Positive cutoff 300 ng/mL) MDMA, UrineNOT REPORTEDNEGATIVEMercy Health- [place], KYMethadone Screen, Urine NegativeNEGATIVEMercy Health- [place], KYComment on above: (Positive cutoff 300 ng/mL) Methamphetamine, UrineNOT REPORTEDNEGATIVEMercy Health- [place], KYOpiates, Urine NegativeNEGATIVEMercy Health- [place], KYComment on above: (Positive cutoff 300 ng/mL) Oxycodone Screen, UrNegativeNEGATIVEMercy Health- [place], KYComment on above: (Positive cutoff 100 ng/mL) Phencyclidine, UrineNegativeNEGATIVEMercy Health- [place], KYComment on above: (Positive cutoff 25 ng/mL) Propoxyphene, UrineNOT REPORTEDNEGATIVEMercy Health- [place], KYTest InformationAssay provides medical screening only. The absence of expected drug(s) and/or metabolite(s) may indicate diluted or adulterated urine, limitations of testing or timing of collection.[facility]- [place], DENITAComted on above:Testing for legal purposes should be confirmed by another method. To request confirmation of test result, please call the lab within 7 days of sample submission. Tricyclic Antidepressants, UrineNOT REPORTEDNEGATIVEMercy Health- [place], KYLactic Acid, Whole Blood1.0 mmol/L0.7 - 2.1 mmol/LMercy NVELO- [place], KYNo acute findings [facility]- [place], DENITAEXAMINATION: ONE XRAY VIEW OF THE CHEST 07/30/2020 2:21 pm COMPARISON: None. HISTORY: ORDERING SYSTEM PROVIDED HISTORY: durg overdose TECHNOLOGIST PROVIDED HISTORY: durg overdose FINDINGS: Cardiac silhouette is enlarged. Lungs appear clear. No acute abnormality.[employer] OHDelano Mhpn Incoming Radiant Results From [employer] - 07/30/2020 2:26 PM EDT EXAMINATION: ONE XRAY VIEW OF THE CHEST 07/30/2020 2:21 pm COMPARISON: None. HISTORY: ORDERING SYSTEM PROVIDED HISTORY: durg overdose TECHNOLOGIST PROVIDED HISTORY: durg overdose FINDINGS: Cardiac silhouette is enlarged. Lungs appear clear. No acute abnormality. IMPRESSION: No acute findings [facility]- [place], KYAcetaminophen [Mass/Vol]<5Low10 - 30 ug/mLMercy Health- [place], KYAlbumin/Globulin [Mass ratio]1.9 {ratio}[facility]- [place], KYBilirubin Ql (U) 0.84 mg/dL0.3 - 1.2 mg/dLMercy Health- [place], KYBun/Cre RatioNOT REPORTEDMercy Health- [place], KYEthanol percent<0.010<0.010 %[facility]- [place], KYGFR AmericanNOT REPORTED>60 mL/minMercy Health- [place], KYGFR Non- Pediatric GFR requires additional information. Refer to NKDEP website for calculator.>60 mL/minMercy Health- [place], KYInterpretation and review of laboratory resultsAbnormalMercy Health- [place], KYSalicylate Lvl<1Low3 - 10 mg/dLMercy [facility]- [place], KYToxic Tricyclic Sc,BloodNegativeNEGATIVEMer[facility]- [place], KYLipase [Catalytic activity/Vol]36 U/L13 - 60 U/LMercy [facility]- [place], KYAllen TestNOT REPORTEDMer[facility]- [place], [id number] REPORTEDMer[facility]- [place], KYGFR Non->60>60 mL/minMercy Health- [place], KYHCO3, Ossbpo24.3 mmol/L22 - 29 mmol/L [facility]- [place], KYInterpretation and review of laboratory resultsAbnormalMercy Health- [place], KYModeNOT REPORTEDMer[facility]- [place], KYNegative Base Excess, VenNOT REPORTEDMercy Health- [place], KYO2 Device/Flow/%NOT REPORTEDMercy [facility]- [place], [place] pCO2, Ven32.1LowMercy Health- [place], KYpH, Ven7.451HighMercy Health- [place], KYpO2, Zack 187.6HighMercy Health- [place], KYPOC Ionized Calcium1.05 mmol/LLow1.15 - 1.33 mmol/L [facility]- [place], KYPOC Lactic Acid2.76 mmol/LHigh0.56 - 1.39 mmol/LMer[facility]- [place], KYPOC pCO2 TempNOT REPORTEDmm HgMercy Health- [place], KYPOC pH TempNOT REPORTEDParkview Health, KYPOC pO2 TempNOT REPORTEDmm HgParkview Health, [place] Positive Base Excess, Pvw9BjaffParkview Health, KYSample SiteNOT REPORTEDParkview Health, AZTotal CO2, Yetpbk58 mmol/L23 - 30 mmol/LMMercy Health [facility] Hospital, AZPO Glucose Fingerstickon 48-46-7140Hzenkte [Mass/Vol]148 mg/eOJhqg29 - 110 mg/dL [facility], AZInterpretation and review of laboratory resultsAbnoOhioHealth Arthur G.[facility], [facility], AZGlucose [Mass/Vol]190 mg/bAVeiv21 - 110 mg/dLParkview Health, [place] Interpretation and review of laboratory resultsAbnormSelect Medical Specialty Hospital - Boardman, Inc, AZTox Scr, Bld, EDon 64-19-8905Oxcmsfbitsidv [Mass/Vol]<0Gvn12-25HmppwSalem City HospitalComment on above:Performed By: #### ATRAZO #### [facility] [address] [place] [address] Television Servicer: Kodak Akbar MD #### CMPX, ADRIÁNX, LIP, CDP #### [facility] [address] [place] [address] Television Servicer: Amaris Modilaleah<4Nxz0-78WrbawSalem City HospitalComment on above:Performed By: #### ATRAZO #### [facility] [address] [place] [address] Television Servicer: Kodak Akbar MD #### CMPX, EDTOX, LIP, CDP #### [facility] [address] [place] [address] Television Servicer: Frank Otero MDEthanol [Mass/Vol]mg/dLNormal<10Salem City HospitalComment on above:Performed By: #### ATRAZO #### [facility] [address] [place] [address] Television Servicer: Kodak Akbar MD #### CMPX, EDTOX, LIP, CDP #### [facility] [address] [place] [address] Television Servicer: Frank Otero MDEthanol percent<0.010Normal<0.010Salem City HospitalComment on above:Performed By: #### ATRAZO #### [facility] [address] [place] [address] Television Servicer: Kodak Akbar MD #### CMPX, EDTOX, LIP, CDP #### [facility] [address] [place] [phone] Television Servicer: Frank Otero MDToxic Tricyclic Sc,BlNegativeNormalNEGSalem City HospitalComment on above:Performed By: #### ATRAZO #### [facility] [address] [place] [phone] Television Servicer: Kodak Akbar MD #### CMPX, EDTOX, LIP, CDP #### [facility] [address] [place] [address] Television Servicer: CICI Modi CHEST PORTABLEon [id number] CHEST PORTABLE EXAMINATION: ONE XRAY VIEW OF THE CHEST 07/30/2020 2:21 pm COMPARISON: None. HISTORY: ORDERING SYSTEM PROVIDED HISTORY: durg overdose TECHNOLOGIST PROVIDED HISTORY: durg overdose FINDINGS: Cardiac silhouette is enlarged. Lungs appear clear. No acute abnormality. IMPRESSION: No acute findings Interpreted by: Myranda Al MD Signed by: Myranda Al MD 07/30/20 Final resultNormalMerSan Joaquin General HospitalACETAMINOPHENon 02-26-2020 Acetaminophen [Mass/Vol]< 5.1Mongiq6.0-20.0SaSeymour HospitalComment on above:Performed By: #### CBCWD, BMP, ACTM, ASAT, ETOHS, ANION, OSMOL, TSH3 #### [facility] [address] [place], [place] [address]RWFDN GAPon 17-96-6786Ujxcb gap [Moles/Vol]11.0 mmol/LNormal 8.0-16.0[facility] League City CampusComment on above:Result Comment: ANION GAP = Sodium -(Chloride + CO2)Performed By: #### CBCWD, BMP, ACTM, ASAT, ETOHS, ANION, OSMOL, TSH3 #### [facility] [address] [place] [address]Rmukfhlomhlay levelon 05-05-1272Ncggxluzibzcd [Mass/Vol]< 5.00 - 20 ug/mLParkview Health, KYComment on above:Performed at [facility] [address] [place] [address]Wbsqx Gapon 43-25-4136Xztdw gap [Moles/Vol]11.0 mmol/L8 - 16 meq/LMMercy Health Lorain Hospital, KYComment on above:ANION GAP = Sodium - (Chloride + CO2) Performed at [facility] [address] [place] [address] BASIC METABOL PANELon 56-99-6953Srtlqky [Mass/Vol]9.5 mg/dLNormal8.5-10.5SBaptist Hospitals of Southeast TexasComment on above:Performed By: #### CBCWD, BMP, ACTM, ASAT, ETOHS, ANION, OSMOL, TSH3 #### [facility] [address] [address]Xtpwbevk [Moles/Vol]100 mmol/MGfoxpr48-468FoyyyThe University [facility] Health League City CampusComment on above:Performed By: #### CBCWD, BMP, ACTM, ASAT, ETOHS, ANION, OSMOL, TSH3 #### [facility] [address] [place] [address]ZR5 [Moles/Vol]26 mmol/KBgsrdp63-55MilhaThe [facility] Comment on above:Performed By: #### CBCWD, BMP, ACTM, ASAT, ETOHS, ANION, OSMOL, TSH3 #### [facility] [address] [place] [address]Obwphwapjb [Mass/Vol]0.8 mg/dLNormal0.4-1.2SBaptist Hospitals of Southeast TexasComment on above:Performed By: #### CBCWD, BMP, ACTM, ASAT, ETOHS, ANION, OSMOL, TSH3 #### [address] [address]Zzphztw [Mass/Vol]164 mg/aHPgjn55-167AlkkhThe [facility] of [facility] Comment on above:Performed By: #### CBCWD, BMP, ACTM, ASAT, ETOHS, ANION, OSMOL, TSH3 #### [address] [address]Ajdwyxrxs [Moles/Vol]5.0 mmol/LNormal3.5-5.2SBaptist Hospitals of Southeast TexasComment on above:Result Comment: Very slight hemolysis indicated.Performed By: #### CBCWD, BMP, ACTM, ASAT, ETOHS, ANION, OSMOL, TSH3 #### [address] [address]Dgldbz [Moles/Vol]137 mmol/UFungue239-101XmpdrThe University of [facility] Health League City CampusComment on above:Performed By: #### CBCWD, BMP, ACTM, ASAT, ETOHS, ANION, OSMOL, TSH3 #### [facility] [address] [place] [address]Caph nitrogen [Mass/Vol]17 mg/dLNormal7-22The [facility] League City CampusComment on above:Performed By: #### CBCWD, BMP, ACTM, ASAT, ETOHS, ANION, OSMOL, TSH3 #### [address] [address]Feqii Metabolic Panelon [id number] [Mass/Vol]9.5 mg/dL8.5 - 10.5 mg/dLParkview Health, KYComment on above:Performed at [facility] [address] [place] [address]Rcztxwwq [Moles/Vol]100 mmol/L98 - 111 meq/L [facility], KYCO2 [Moles/Vol]26 mmol/L23 - 33 meq/LMMercy Health [facility]ain Hospital, [place] Creatinine [Mass/Vol]0.8 mg/dL0.4 - 1.2 mg/dLParkview Health, KYGlucose [Mass/Vol]164 mg/oDZjzw97 - 108 mg/dLParkview Health, KYPotassium [Moles/Vol] 5.0 mmol/L3.5 - 5.2 meq/[facility], KYComment on above:Very slight hemolysis indicated.Sodium [Moles/Vol]137 mmol/L135 - 145 meq/[facility], KYUrea nitrogen [Mass/Vol]17 mg/dL7 - 22 mg/dLParkview Health, KYCALCULATED OSMOLALITYon 90-60-7665Uqzhyotohg [Osmolality]279.0 mOsmol/btPscgtz809.0-300. [facility] League City CampusComment on above:Performed By: #### CBCWD, BMP, ACTM, ASAT, ETOHS, ANION, OSMOL, TSH3 #### [address] [address]VGY WITH DIFFERENTIALon 16-14-7420EIV IMMATURE GRANS (IG)0.09 thou/nd4Kjro2.00-0.07[facility] League City CampusComment on above:Performed By: #### CBCWD, BMP, ACTM, ASAT, ETOHS, ANION, OSMOL, TSH3 #### [address] [address]XQR NEUTROPHILS5.8 thou/gl6Antjkk4.8-7.7[facility] League City CampusComment on above:Performed By: #### CBCWD, BMP, ACTM, ASAT, ETOHS, ANION, OSMOL, TSH3 #### [facility] [address] [place] [address]Sdxlojmdx (Bld) [#/Vol]0.1 thou/gq6Dgcdhb0.0-0.1SBaptist Hospitals of Southeast TexasComment on above:Performed By: #### CBCWD, BMP, ACTM, ASAT, ETOHS, ANION, OSMOL, TSH3 #### [address] [address]Aukiscvdl/100 WBC (Bld)0.7 %NormalThe [facility] of [facility] Comment on above:Performed By: #### CBCWD, BMP, ACTM, ASAT, ETOHS, ANION, OSMOL, TSH3 #### [address] [address]Fusxlbqryiy (Bld) [#/Vol]0.1 thou/yp6Pwroks5.0-0.4SBaptist Hospitals of Southeast TexasComment on above:Performed By: #### CBCWD, BMP, ACTM, ASAT, ETOHS, ANION, OSMOL, TSH3 #### [address] [address]Roypzxpefvt/100 WBC (Bld)1.1 %[facility] Comment on above:Performed By: #### CBCWD, BMP, ACTM, ASAT, ETOHS, ANION, OSMOL, TSH3 #### [address] [address]Gsttbfrzlfs distribution width (RBC) [Ratio]12.5 %Fljghr50.5-14.5 [facility] League City CampusComment on above:Performed By: #### CBCWD, BMP, ACTM, ASAT, ETOHS, ANION, OSMOL, TSH3 #### [address] [address]Cyaydexhwz (Bld) [Volume fraction]51.3 %Ncfiec55.0-52.0[facility] League City CampusComment on above:Performed By: #### CBCWD, BMP, ACTM, ASAT, ETOHS, ANION, OSMOL, TSH3 #### [address] [address]Vtaoayvavn (Bld) [Mass/Vol]18.5 gm/iwXqjj07.0-18.0[facility] CampusComment on above:Performed By: #### CBCWD, BMP, ACTM, ASAT, ETOHS, ANION, OSMOL, TSH3 #### [address] [address]SKNLIMRT GRANS (IG)1.0 %[facility] CenterComment on above:Performed By: #### CBCWD, BMP, ACTM, ASAT, ETOHS, ANION, OSMOL, TSH3 #### [address] [address]Lpbwnyalzhn (Bld) [#/Vol]2.6 thou/fg9Omozpi5.0-4.8[facility] City CampusComment on above:Performed By: #### CBCWD, BMP, ACTM, ASAT, ETOHS, ANION, OSMOL, TSH3 #### [address] [address]Xqrasybrltd/100 WBC (Bld)29.1 %[facility] Comment on above:Performed By: #### CBCWD, BMP, ACTM, ASAT, ETOHS, ANION, OSMOL, TSH3 #### [address] [address]EPQ (RBC) [Entitic mass]32.2 akWqhmwa35.0-33.0[facility] City CampusComment on above:Performed By: #### CBCWD, BMP, ACTM, ASAT, ETOHS, ANION, OSMOL, TSH3 #### [address] [address]HJXP (RBC) [Mass/Vol]36.1 gm/ctUbbp32.2-35.5SBaptist Hospitals of Southeast TexasComment on above:Performed By: #### CBCWD, BMP, ACTM, ASAT, ETOHS, ANION, OSMOL, TSH3 #### [address] [address]OLD (RBC) [Entitic vol]89.4 pKZregzw47.0-94.0[facility] City CampusComment on above:Performed By: #### CBCWD, BMP, ACTM, ASAT, ETOHS, ANION, OSMOL, TSH3 #### [address] [address]Blxkutcea (Bld) [#/Vol]0.4 thou/fg2Zplizj8.4-1.3SBaptist Hospitals of Southeast TexasComment on above:Performed By: #### CBCWD, BMP, ACTM, ASAT, ETOHS, ANION, OSMOL, TSH3 #### [address] [address]Kcpnyoolh/100 WBC (Bld)4.9 %[facility] Comment on above:Performed By: #### CBCWD, BMP, ACTM, ASAT, ETOHS, ANION, OSMOL, TSH3 #### [address] [address]Quocwuyisck/100 WBC (Bld)63.2 %[facility] Comment on above:Performed By: #### CBCWD, BMP, ACTM, ASAT, ETOHS, ANION, OSMOL, TSH3 #### [address] [address]Lurpkpqbc RBC/100 WBC (Bld) [Ratio]0 /100 wbcNormalSBaptist Hospitals of Southeast TexasComment on above:Performed By: #### CBCWD, BMP, ACTM, ASAT, ETOHS, ANION, OSMOL, TSH3 #### [address] [address]Syatqexg mean volume (Bld) [Entitic vol]9.8 fLNormal9.4-12.4SBaptist Hospitals of Southeast TexasComment on above:Performed By: #### CBCWD, BMP, ACTM, ASAT, ETOHS, ANION, OSMOL, TSH3 #### [address] [address]Jfwgvwjqp (Bld) [#/Vol]240 thou/tg6Mlctpd005-627SyrkvThe University of [facility] Health League City CampusComment on above:Performed By: #### CBCWD, BMP, ACTM, ASAT, ETOHS, ANION, OSMOL, TSH3 #### [address] [address]DNJ (Bld) [#/Vol]5.74 mill/ei9Tuoogh9.70-6.10[facility] League City CampusComment on above:Performed By: #### CBCWD, BMP, ACTM, ASAT, ETOHS, ANION, OSMOL, TSH3 #### [address] [address]LPS-VP19.7 eGXfpkhe84.0-45.0[facility] City CampusComment on above:Performed By: #### CBCWD, BMP, ACTM, ASAT, ETOHS, ANION, OSMOL, TSH3 #### [facility] [address], [place] [address]ORN (Bld) [#/Vol]9.1 thou/do3Tooksk6.8-10.8[facility] League City CampusComment on above:Performed By: #### CBCWD, BMP, ACTM, ASAT, ETOHS, ANION, OSMOL, TSH3 #### [facility] [address] [place], [place] [address]CJP auto differentialon 15-99-4049Wnjhlblmj (Bld) [#/Vol]0.1 10*3/[facility]- [place], KYBasophils/100 WBC (Bld)0.7 %[facility]- [place], [place] Eosinophils (Bld) [#/Vol]0.1 10*3/uLFisher-[facility]- [place], KYEosinophils/100 WBC (Bld)1.1 %[facility]- [place], KYErythrocyte distribution width (RBC) [Ratio]12.5 % 11.5 - 14.5 %[facility]- [place], KYHematocrit (Bld) [Volume fraction]51.3 %42 - 52 %[facility]- [place], KYHemoglobin (Bld) [Mass/Vol]18.5 g/dLHighDoctors Hospital- [place], KYImmature Grans (Abs)0.09HighDoctors Hospital- [place], KYImmature granulocytes (Bld) [#/Vol]1 %[facility]- [place], KYInterpretation and review of laboratory results AbnormalDoctors Hospital- [place], KYLymphocytes (Bld) [#/Vol]2.6 10*3/uLFisher-Titus [facility]- [place], KYLymphocytes/100 WBC (Bld)29.1 %[facility]- [place], KYMCH (RBC) [Entitic mass]32.2 pg26 - 33 pgFisher-Titus Medical Center Health- [place], KYMCHC (RBC) [Mass/Vol]36.1 g/dLHigh [facility]- [place], KYMCV (RBC) [Entitic vol]89.4 fL80 - 94 fLFisher-Titus Medical Center [facility]- [place], [place] Monocytes (Bld) [#/Vol]0.4 10*3/[facility], KYMonocytes/100 WBC (Bld)4.9 %[facility], KYNucleated RBC/100 WBC (Bld) [Ratio]0 %/100 wbcParkview Health, KYComment on above:Performed at [facility] [address] [place], [place] [address]Dykcpvhd mean volume (Bld) [Entitic vol]9.8 fL9.4 - 12.4 fL [facility], KYPlatelets (Bld) [#/Vol]240 10*3/[facility], KYRBC (Bld) [#/Vol]5.74 10*6/[facility], KYRDW-SD40.7 fL35 - 45 fLParkview Health, KYSegmented neutrophils/100 WBC (Bld)63.2 %[facility], KYSegs Absolute5.8[facility], KYWBC (Bld) [#/Vol]9.1 10*3/[facility], [place] DRUG ABUSE SCREENon 18-65-5263PAAYGHWMEMP/METHAMPHNegativeNormalNEGATIVESaint St. Luke's JeromeComment on above:Performed By: #### UR_CS #### [facility] [address] [place] [address]FGHWFDHYRRFYneixdadKitsldYUZLCLAGDmheq [facility] Comment on above:Performed By: #### UR_CS #### [facility] [address] [place] [address]Lahpegbryfcnduq Ql (U)NegativeNormalNEGATIVESaint St. Luke's JeromeComment on above:Performed By: #### UR_CS #### [facility] [address] [place] [address]Xoitgchorlal Screen Ql (U)NegativeNormalNEGATIVESaint St. Luke's JeromeComment on above:Performed By: #### UR_CS #### [facility] [address] [place] [address]YRVEWXU [address]ITENegativeNormalNEGATIVESaint St. Luke's JeromeComment on above:Performed By: #### UR_CS #### [facility] [address] [place] [address]Hiwcmvp Ql (U)NegativeNormalNEGATIVESaint St[facility] Comment on above:Performed By: #### UR_CS #### [address] [address]ZSOASDPZWUxrtnpgxNdugrfBUEIYAQJHfnhh Rita's Medical CenterComment on above:Performed By: #### UR_CS #### [facility] [address] [place] [address]Pomiymoemvvtb Ql (U)NegativeNormalNEGATIVESBaptist Hospitals of Southeast TexasComment on above:Result Comment: A Negative result for a drug abuse [...] request. These results are for medical use only.Performed By: #### UR_CS #### [address] [address]GNKFT ALCOHOL BLOODon 63-78-2007UDPFP ALCOHOL BLOOD< 0.01Normal 0.00[address] Luke's JeromeComment on above:Performed By: #### CBCWD, BMP, ACTM, ASAT, ETOHS, ANION, OSMOL, TSH3 #### [facility] [address] [place] [address]Gndklhffn 22-00-0306FVXAZ ALCOHOL, SERUM< 0.010.00 %[facility], KYComment on above:Performed at [facility] [address] [place] [address]Flcnqjcyvdcd 45-15-6070Xhszztlkww Mplj245.0[facility], [place] Comment on above:Performed at [facility] [address] [place] [address]Szitbji 71-53-7311Hzykxpqaxqdvih and review of laboratory resultsAbnormal [facility], KYSALICYLATEon [id number]< 0.3Low2.0-10.0SaSeymour HospitalComment on above:Performed By: #### CBCWD, BMP, ACTM, ASAT, ETOHS, ANION, OSMOL, TSH3 #### [facility] [address] [place] [address] 36683Wbrzrduist Levelon 11-06-2007Xwdnrirzwq, Serum< 0.3Low2 - 10 mg/dL [place], [place]Comment on above:Performed at [facility] [address] [place] [address] 30327SXA THIRD GENERATIONon [id number] THIRD GENERATION 5.000 uIU/mLHigh0.400-4.20SBaptist Hospitals of Southeast TexasComment on above:Performed By: #### CBCWD, BMP, ACTM, ASAT, ETOHS, ANION, OSMOL, TSH3 #### [facility] [address] [address]QQG without Reflexon [id number] and review of laboratory resultsPalm Beach Gardens Medical Center Qn5.000 m[IU]/[place], [place]Comment on above:Performed at [facility] [address] [place] [address] 38145DNVRS REFLEX C + Son [id number] Ql (U)NegativeNormal NEGATIVESBaptist Hospitals of Southeast TexasComment on above:Performed By: #### UR_CS #### [facility] [address] [address]PUMSKDezoamdqCpfttfYNVCMGCZQaorp Rita's Medical CenterComment on above:Performed By: #### UR_CS #### [facility] [employer] [facility] [address] [place] [address] 398[address]Njbnxstos (U)CLEARNormalCLEAR-SL CSaSeymour Hospital Comment on above:Performed By: #### UR_CS #### [facility] [address] [place] [address] 018[address]Pfzhw (U)YELLOWNormalSTRAW-YELLSaSeymour HospitalComment on above:Performed By: #### UR_CS #### [facility] [address] [place] [address] 79684Vhvdgmz [Mass/Vol]NegativeNormalNEGATIVESBaptist Hospitals of Southeast TexasComment on above:Performed By: #### UR_CS #### [facility] [address] [place] [address] 54687Kshfqlp Ql (U)NegativeNormalNEGATIVESBaptist Hospitals of Southeast [place] Comment on above:Performed By: #### UR_CS #### [facility] [address] [place] [address] 31215Hladcel Ql (U)NegativeNormalNEGATIVESBaptist Hospitals of Southeast [place] Comment on above:Performed By: #### UR_CS #### [facility] [address] [place] [address] 55441oE (Bld)5.9Gsmqvn7.0 - 9.0[facility] League City CampusComment on above:Performed By: #### UR_CS #### [address] [address]Nisrgor (U) [Mass/Vol]NegativeNormalNEGATIVESBaptist Hospitals of Southeast TexasComment on above:Performed By: #### UR_CS #### [address] [address]Vhcvibsb gravity (U) [Rel density]1.990Dzndpc6.002-1.03[facility] Health League City CampusComment on above:Performed By: #### UR_CS #### [address] [address]Hutagkrrfrau Qn (U)1.0 eu/dlNormal0.0 - 1.0[facility] Health League City CampusComment on above:Performed By: #### UR_CS #### [address] [address]KCW (Bld) [#/Vol]NegativeNormalNEGATIVESBaptist Hospitals of Southeast [place] Comment on above:Performed By: #### UR_CS #### [address] [address]Rjfuplhuuv Reflex to Cultureon [id number] UrineNegative NEGATIVEMercy Health- [place], [place]Blood, UrineNegativeNEGATIVEMercy Health- [place], [place] Character, UrineCLEARCLEAR-SL CMercy Health- [place], KYComment on above:Performed at [facility] [address], [place] [address]Tobia, UAYELLOWSTRAW-YELL [facility] [place], KYGlucose, UrNegativeNEGATIVE mg/dlMercy Health- [place], KYKetones Ql (U)NegativeNEGATIVEMercy Health- [place], KYLeukocyte esterase Test strip Ql (U) NegativeNEGATIVEMercy Health- [place], KYNitrite, UrineNegativeNEGATIVEMercy Health- [place], KYpH, UA5.5[facility] [place], KYProtein (U) [Mass/Vol]NegativeNEGATIVEMercy Health- [place], KYSpecific [place], Urine1.026[facility]- [place], KYUrobilinogen, Urine1.0[facility] [place], KYUrine Drug Screenon 02-26-2020 AMPHETAMINE+METHAMPHETAMINE URINE SCREENNegativeNEGATIVEMerWest [facility] Community Hospital- [place], [place] Barbiturate Quant, UrNegativeNEGATIVEMercy Health- [place], KYBenzodiazepine Quant, UrNegativeNEGATIVEMercy Health- [place], KYCannabinoid Quant, UrNegativeNEGATIVEMercy Health- [place], KYCocaine Metab Quant, UrNegativeNEGATIVEMercy Health- [place], [place] Opiates, UrineNegativeNEGATIVEMercy Health- [place], KYOxycodoneNegativeNEGATIVEMercy Health- [place], KYPCP Quant, UrNegativeNEGATIVEMercy Health- [place], KYComment on above:A Negative result for a drug abuse screen [...] are for medical use only. Performed at [facility] [address] [place] [address] Otheron [id number] left knee This report has been created using voice recognition software. It may contain minor errors which are inherent in voice recognition technology. Final report electronically signed by Dr. Alexander Vega on 02/15/2020 2:22 PMParkview Health, KYPROCEDURE: XR KNEE LEFT (3 VIEWS) CLINICAL INFORMATION: Left knee pain, unspecified chronicity . COMPARISON: No prior study. TECHNIQUE: Standing AP and lateral projections a sunrise patella projection. FINDINGS: No acute fracture or dislocation. Joint space is maintained. No joint effusion. No softtissue normality.[facility], KYEdi, Wcoh Incoming Radiant Results From [employer] - 02/15/2020 2:24 PM EDT PROCEDURE: XR [...] by Dr. Alexander Vega on 02/15/2020 2:22 [facility], KYXR KNEE LEFT (3 VIEWS)on [id number] KNEE LEFT (3 VIEWS) PROCEDURE: XR KNEE LEFT (3 VIEWS) CLINICAL [...] Signed by: Alexander Vega MD 02/15/20 Final resultNormalSBaptist Hospitals of Southeast Texas Vital Signs Date TimeVital SignValuePerforming MekslnxadJespivdx57-55-6378 07:30-0400Body nelhhnnbupa36.6 [degF]PHYSICIAN NO [facility] 04-05-2025 07:30-0400Diastolic blood shsdkcpi19 mm[Hg]PHYSICIAN NO [facility]06-11-2025 07:30-0400Heart rate83 /minPHYSICIAN [facility]06-11-2025 07:30-0400Respiratory rate 20 /minPHYSICIAN NO [facility]06-11-2025 07:30-0400 SaO2% (BldA) [Mass fraction]98 %PHYSICIAN NO [facility]06-11-2025 07:30-0400Systolic blood eczxujxu821 mm[Hg]PHYSICIAN NO [facility]06-09-2025 14:38-0400Body rxqoou123.72 cm PHYSICIAN NO [facility]06-09-2025 09:00-0400Body kgPHYSICIAN NO [facility]06-06-2025 22:18-0400Body ebcgaitipfl60.4 [degF]Demetria Cifuentes CHARGING CRANE OPERATOR Work Phone: [phone]06-06-2025 22:18-0400 Diastolic blood bzvfmhte87 mm[Hg]Demetria Cifuentes CHARGING CRANE OPERATOR Work Phone: [phone]06-06-2025 22:18-0400 Heart upja035 /Toni Caseacher CHARGING CRANE OPERATOR Work Phone: [phone]04[facility]06-06-2025 22:18-0400 Respiratory rate16 /Toni Caseacher CHARGING CRANE OPERATOR Work Phone: [phone]06-06-2025 22:18-0400 SaO2% (BldA) [Mass fraction]97 %Demetria Cifuentes CHARGING CRANE OPERATOR Work Phone: [phone]06-06-2025 22:18-0400 Systolic blood pouhdumx566 mm[Hg]Demetria Cifuentes CHARGING CRANE OPERATOR Work Phone: [phone] [place], [place] 9735706-06-2025 13:28-0400 Body xzylvk552.72 cmDemetria Cifuentes CHARGING CRANE OPERATOR Work Phone: [phone] [place], [place] 9735706-06-2025 13:28-0400 Body ccmhhy192.27 kgDemetria Orlandor CHARGING CRANE OPERATOR Work Phone: [phone] [place], [place] 0177204-25-2025 21:06-0400 Body sgydlg963.72 cmDemetria Caseacher CHARGING CRANE OPERATOR Work Phone: [phone] [place], [place] 0177204-25-2025 21:06-0400 Body ythspiynutf51.6 [degF]Demetria Gunterfranciaacher CHARGING CRANE OPERATOR Work Phone: [phone] [place], [place] 0177204-25-2025 21:06-0400 Body vumiax942.1 kgDemetria Caseacher CHARGING CRANE OPERATOR Work Phone: [phone] [place], [place] 0177204-25-2025 21:06-0400 Diastolic blood geyrxrue03 mm[Hg]Demetria Guntermesfinr CHARGING CRANE OPERATOR Work Phone: [phone] [place], [place] 0177204-25-2025 21:06-0400 Heart rate90 /Toni Caseacher CHARGING CRANE OPERATOR Work Phone: [phone] [place], [place] 0177204-25-2025 21:06-0400 Respiratory rate16 /Toni Caseacher CHARGING CRANE OPERATOR Work Phone: [phone] [place], [place] 0177204-25-2025 21:06-0400 SaO2% (BldA) [Mass fraction]98 %Demetria Gunterabelino CHARGING CRANE OPERATOR Work Phone: [phone] [place], [place] 0177204-25-2025 21:06-0400 Systolic blood btbffhoq483 mm[Hg]Demetria Esau CHARGING CRANE OPERATOR Work Phone: [phone] [place], [place] 0177203-17-2025 08:24-0400 Body bnlsya725.45 kgDemetria Caseacher CHARGING CRANE OPERATOR Work Phone: [phone] [place], [place] 0177203-17-2025 07:30-0400 Body rttmofrmobk99.3 [degF]Demetria Gunterfranciaacher CHARGING CRANE OPERATOR Work Phone: [phone] [place], [place] 0177203-17-2025 07:30-0400 Diastolic blood ijenqeew36 mm[Hg]Demetria Gunterabelino CHARGING CRANE OPERATOR Work Phone: [facility]03-17-2025 07:30-0400 Heart rate77 /Toni Cifuentes CHARGING CRANE OPERATOR Work Phone: [phone]03-17-2025 07:30-0400 Respiratory rate16 /Toni Cifuentes CHARGING CRANE OPERATOR Work Phone: [phone]03-17-2025 07:30-0400 SaO2% (BldA) [Mass fraction]99 %Demetria Esau CHARGING CRANE OPERATOR Work Phone: [phone]03-17-2025 07:30-0400 Systolic blood radotlow344 mm[Hg]Demetria Gunterabelino CHARGING CRANE OPERATOR Work Phone: [phone]03-14-2025 16:04-0400 Body xnvimx172.72 cmDemetria Cifuentes CHARGING CRANE OPERATOR Work Phone: [phone]03-13-2025 17:17-0400 Diastolic blood tcvjedjj48 mm[Hg]PHYSICIAN NO [facility]03-13-2025 17:17-0400Heart kcbn918 /minPHYSICIAN [facility]03-13-2025 17:17-0400Respiratory rate16 /minPHYSICIAN [facility]03-13-2025 17:17-9806XlA4% (BldA) [Mass fraction]96 %PHYSICIAN [facility]03-13-2025 17:17-0400Systolic blood mpzuvzbr086 mm[Hg]PHYSICIAN [facility]03-13-2025 12:29-0400Body ummjnp046.72 cmPHYSICIAN [facility]03-13-2025 12:29-0400Body wkrrujkzzlp91.4 [degF]PHYSICIAN [facility]03-13-2025 12:29-0400 Body xvovjo899 kgPHYSICIAN [facility]10-10-2024 07:30-0400Body fkiruhiiedr48.8 [degF]HAILEE Gunterrbacher Work Phone: [phone] [place], [place] 9735710-10-2024 07:30-0400 Diastolic blood sisetcim13 mm[Hg]CHARGING CRANE OPERATOREllen MarcosDemetria Janirbacher Work Phone: [phone]10-10-2024 07:30-0400 Heart rate89 /minAPREllen MarcosDemetria Janirbacher Work Phone: [phone]10-10-2024 07:30-0400 Respiratory rate20 /minAPREllen Gunterrbacher Work Phone: [phone] [place], [place] 0177210-10-2024 07:30-0400 SaO2% (BldA) [Mass fraction]99 %CHARGING CRANE OPERATOREllen Gunterrbacher Work Phone: 1([phone])538-[address] [place], [place] 9735710-10-2024 07:30-0400 Systolic blood rynnztne716 mm[Hg]HAILEE Gunterrbacher Work Phone: [phone] [place], [place] 0177210-08-2024 15:22-0400 Body .72 cmAPREllen MarcosDemetria Janirbacher Work Phone: [phone] [place], [place] 0177210-07-2024 11:25-0400 Body xfikpm824.59 kgAPREllen Gunterrbacher Work Phone: [phone])676-[address] [place], [place] 9735710-07-2024 10:00-0400 Diastolic blood itbetrhl18 mm[Hg]HAILEE Gunterrbacher Work Phone: [phone] [place], [place] 9735710-07-2024 10:00-0400 Heart rate75 /minAPREllen Gunterrbacher Work Phone: [phone] [place], [place] 9735710-07-2024 10:00-0400 Respiratory rate16 /minAPREllen Gunterrbacher Work Phone: 1(693)134-[address] [place], [place] 9735710-07-2024 10:00-0400 SaO2% (BldA) [Mass fraction]97 %HAILEE Cifuentes Work Phone: [facility]10-07-2024 10:00-0400 Systolic blood ivzxefwl155 mm[Hg]HAILEE Marcosfer Esau Work Phone: [facility]10-07-2024 03:09-0400 Body oyrbxi706.72 cmAPREllen CrumpDemetria Esau Work Phone: [facility]10-07-2024 03:09-0400 Body aanmuokgrut26.8 [degF]HAILEE Cifuentes Work Phone: [facility]10-07-2024 03:09-0400 Body .35 kgAPREllen Cifuentes Work Phone: [facility]10-02-2024 16:00-0400 Body zhaada496.72 cmAshtabula County Medical Center10-02-2024 16:00-0400Body mass index (BMI) [Ratio]35.4 kg/o0CwwobdarzAshtabula County Medical Center10-02-2024 16:00-0400Body utilahvjzsg04.6 [degF][facility]10-02-2024 16:00-0400Body gduxha593.68 kgAshtabula County Medical Center10-02-2024 16:00-0400Diastolic blood mm[Hg][facility] 07-27-2024 16:00-0400Heart rate76 /minAshtabula County Medical Center 07-27-2024 16:00-5345XfE9% (BldA) [Mass fraction]96 %[facility]10-02-2024 16:00-0400Systolic blood mm[Hg][facility]09-04-2024 10:41-0400Body .72 cmAshtabula County Medical Center09-04-2024 10:41-0400Body mass index (BMI) [Ratio]35.4 kg/m2 [facility]09-04-2024 10:41-0400Body cewfvl009.68 kg [facility]09-04-2024 10:41-0400Diastolic blood mm[Hg][facility]09-04-2024 10:41-0400Heart igqg688 /min [facility]09-04-2024 10:41-0400Respiratory rate12 /min [facility]09-04-2024 10:41-0400Systolic blood uqtgxlmo483 mm[Hg][facility]07-01-2024 11:19-0400Blood Pressure LocationPatricopal PATEL [facility]07-01-2024 11:19-0400Body yqytoogdnpi55.6 [degF]Joel PATEL [facility]07-01-2024 11:19-0400Diastolic blood purbhsee58 mm[Hg]Joel PATEL [facility]07-01-2024 11:19-0400Heart rate95 /minPatrick JORGE [facility]07-01-2024 11:19-0400Respiratory rate16 /minPatrick JORGE [facility]07-01-2024 11:19-0400Systolic blood njbrncyz138 mm[Hg]Joel PATEL [facility]05-09-2024 12:58-0400Body xgmsol805.72 cmAshtabula [facility]05-09-2024 12:58-0400Body mass index (BMI) [Ratio]37.5 kg/k1SzkfxwlkeAshtabula County Medical Center05-09-2024 12:58-0400Body .03 kgAshtabula County Medical Center05-09-2024 12:58-0400Diastolic blood xhhxvruv41 mm[Hg] [facility]05-09-2024 12:58-0400Heart rgtd715 /min [facility]05-09-2024 12:58-5200PmX6% (BldA) [Mass fraction]98 %[facility]05-09-2024 12:58-0400Systolic blood wetkpzyw425 mm[Hg][facility]04-22-2024 10:57-0400 Body sysyzb772.72 cmAshtabula County Medical Center04-22-2024 10:57-0400Body mass index (BMI) [Ratio]37.8 kg/z3PbkndcbytAshtabula County Medical Center04-22-2024 10:57-0400Body .94 kgAshtabula County Medical Center04-22-2024 10:57-0400Diastolic blood bqaloesq66 mm[Hg][facility] 02-15-2024 10:57-0400Heart rate95 /minAshtabula [facility] Medical Center 02-15-2024 10:57-9876HnH8% (BldA) [Mass fraction]98 %[facility]04-22-2024 10:57-0400Systolic blood mm[Hg][facility]02-16-2024 13:06-0500Body itqtzz561.72 cmAshtabula County Medical Center02-16-2024 13:06-0500Body mass index (BMI) [Ratio]37.2 kg/m2 [facility]02-16-2024 13:06-0500Body yhcrnltefrl92.7 [degF][facility]02-16-2024 13:06-0500Body mopbln862.13 kg [facility]02-16-2024 13:06-0500Diastolic blood iguuascf19 mm[Hg][facility]02-16-2024 13:06-0500Heart stym191 /min [facility]02-16-2024 13:06-0500Respiratory rate18 /min [facility]02-16-2024 13:06-9531QvF3% (BldA) [Mass fraction]96 %[facility]02-16-2024 13:06-0500Systolic blood khvpnusp910 mm[Hg][facility]02-09-2024 08:30-0500 Body tyrwbd681.72 cmDemetria Cifuentes Other [employer] Other 02-09-2024 08:30-0500Body mass index (BMI) [Ratio] 39.38 kg/f8WqupzattDemetria Gunterabelino Other [employer] Other 02-09-2024 08:30-0500Body hygvqq716.48 kgDemetria Gunterfranciaopal Other [employer] Other 02-09-2024 08:30-0500Diastolic blood tqbfdnko82 mm[Hg] Demetria Esau Other [employer] Other 02-09-2024 08:30-4435MyY7% (BldA) [Mass fraction]98 % Demetria Esau Other [employer] Other 02-09-2024 08:30-0500Systolic blood ceudladc278 mm[Hg] Demetria Esau Other [employer] Other 12-22-2023 17:30-0500Body msjyvy544.72 Garrett Olivas Other [facility]12-22-2023 17:30-0500 Body mass index (BMI) [Ratio]42.57 kg/f5Acldvn Dymond Other [employer] Other 12-22-2023 17:30-0500Body hiuxdrxfrjg16.4 [degF]Lynn Olivas Other [employer] Other 12-22-2023 17:30-0500Body ilyqxn560.01 kgPasue Olivas Other [employer] Other 12-22-2023 17:30-0500Body [facility]12-22-2023 17:30-0500Diastolic blood ukwwusok46 mm[Hg] Lynn Deisy Other [facility]12-22-2023 17:30-0500 Respiratory rate18 /minLynn Deisy Other [employer] Other 12-22-2023 17:30-8620BuA7% (BldA) [Mass fraction]97 % Lynn Deisy Other [employer] Other 12-22-2023 17:30-0500Systolic blood pwzuomcl140 mm[Hg] Lynn Deisy Other [facility]12-05-2022 19:40-0500 Body mkjaih732.72 cmPamelricarda Olivas Other [employer] Other 12-05-2022 19:40-0500Body mass index (BMI) [Ratio] 35.58 kg/d8Kjwuwu Deisy Other [employer] Other 12-05-2022 19:40-0500Body .14 kgPasue Deisy Other [employer] Other 12-05-2022 19:40-0500Diastolic blood cqeyarsz77 mm[Hg] Lynn Deisy Other [employer] Other 12-05-2022 19:40-0500Respiratory rate18 /minLynn Olivas Other [employer] Other 12-05-2022 19:40-1950AvU7% (BldA) [Mass fraction]98 % Lynn Olivas Other [employer] Other 12-05-2022 19:40-0500Systolic blood knmgpksu843 mm[Hg] Lynn Olivas Other [employer] Other 10-11-2020 08:00-0400Body Yfpqyxjyfdn63.01 [degF][facility], PJ13-62-4872 08:00-0400BP Lkzxnljtf70 mm[Hg][facility], DM76-35-9201 08:00-0400BP Sngsoitz868 mm[Hg][facility], MX02-68-3711 08:00-0400Pulse (Heart Rate)80 /min [facility], GW98-38-2958 08:00-0400Respiratory Rate14 /minSMunson Healthcare [facility], XS49-38-4575 19:36-0400Pulse Wimqcqel34 % [facility], VA49-19-5692 23:05-0400BMI (Body Mass Index) 35.15 kg/x6LsqjwAscension Genesys Hospital, HN52-38-2803 23:05-0400Body weight 114.31 kgAscension Genesys Hospital, WU10-50-8630 23:05-4051Jvfwqz453.3 cmSMunson Healthcare [facility], AA35-49-0811 19:54-0400Body Temperature 98.29 [degF][facility], CR81-39-5454 19:54-0400BP Diastolic 74 mm[Hg][facility], DU20-47-9366 19:54-0400BP Ktchqmuv474 mm[Hg][facility]Select [facility], FY70-97-0841 19:54-0400Pulse (Heart Rate) 93 /minRavinod [facility], BZ21-76-3911 19:54-0400Pulse Eadblbcj94 %[facility], IG83-67-1217 19:54-0400Respiratory Rate17 /min [facility], IE77-13-8969 05:15-0400BMI (Body Mass Index) 35.98 kg/n2ZgxqzFormerly [facility], [facility], ZM38-51-2999 05:15-0400Body weight 117.03 kgFormerly [facility], [facility], DJ86-68-2206 13:31-7147Xiozfp612.3 cm [facility], EH30-33-7834 07:46-0400Body Ltjthwlqhkj78.5 [degF][facility], HY18-68-6766 07:46-0400BP Nqhboxjko23 mm[Hg][facility], WB49-72-6485 07:46-0400BP Fldqpuws536 mm[Hg][facility], FT77-39-9620 07:46-0400Pulse (Heart Rate)93 /[facility]zoM[facility], RM04-25-5596 07:46-0400Pulse Biswxduy73 %[facility], WR07-67-9373 07:46-0400 Respiratory Rate18 /[facility]zoM[facility], MF92-86-2302 00:33-0400BMI (Body Mass Index)39.28 kg/i5JeotzAscension Genesys Hospital, 02-27-2020 00:33-0400Body .66 kgFito [facility]hShelby [facility], [place] 02-27-2020 00:330466Zlamkp942.3 Michelle SalheShel[facility], [place] 02-14-2020 13:120400BMI (Body Mass Index)40.5 kg/a2Tpznochacorta SalehAurora St[facility] [place] Work Phone: [phone] 13:12-0400Body mass index (BMI) [Percentile]99 {percentile}[facility]Ar[facility] Work Phone: 1(725) 13:12Body Svnegxjzujt13.1 [degF]Fito [facility] Work Phone: 1(001) 13:12-0400Body dlhmca452.77 [facility]Pow[facility] Work Phone: 1(511) 13:12-0400BP Fjcwjdhne44 mm[Hg][facility]ito [facility]elezArkansas [facility] Hospital Work Phone: 1(930) 13:12-0400BP Yzgjcunz234 mm[Hg]Fito KaArkansas Heart Hospital Work Phone: 1(860) 13:12BSA (Body Surface Area)2.31 m2 [facility] Work Phone: 1(263) 13:127315Ndisij747.72 [facility] Work Phone: 1(847) 13:12-0Pain Level3 [address] [place] [address] Work Phone: 1(282) 13:120400Pulse (Heart Rate)84 /minSHot Springs Memorial Hospital Work Phone: 1(956) 13:12-0400Pulse Zeijiwzl88 %Fito [facility] Work Phone: 1([phone]) 794-422104-21-2020 13:12-0400Respiratory Rate16 /Florin [facility] Work Phone: Encounters Encounter DateEncounter TypeCare ProviderFacilityStart: 05-09-2025 End: 38-96-2137Dotsjvkuv department patient visitNO PCP NO PCPProMedica Galax HospitalStart: 47-76-0675mnfsulyimxQdqsqea WATERSFacility: JailStart: 69-34-7858yjogjvduwzSPetar BARONWest Hills Hospital HospitalStart: 89-16-7559Cne- patient / Non-visitPHYSICIAN NO [facility] Work Phone: Start: 03-31-2025 End: 94-02-6959Eqpuodwtst and management of inpatientJennifer Rohrbacher CHARGING CRANE OPERATOR Work Phone: [facility]-[address] [place] [address] Work Phone: Start: 93-09-9493jsgwircigmCgivvkfd Rohrbacher Facility:[facility] Hospitaltart: 80-50-8458Pvbsdxyops Recurring PHYSICIAN NO [facility]- CredibleStart: 03-31-2025 End: 25-55-4128erjumbcupnXtytmgav Rohrbacher CHARGING CRANE OPERATOR Work Phone: [facility] Work Phone: Start: 03-31-2025 End: 01-95-1891Eyeohfjb ReferredJennifer Rohrbacher CHARGING CRANE OPERATOR Work Phone: [facility]-LAB Path Spec [facility] HospStart: 02-17-2025 End: 31-19-9741Izywdcrbu department patient visitJennifer Rohrbacher CHARGING CRANE OPERATOR Work Phone: [facility]-Emergency Room Work Phone: Start: 01-80-8003Swz-patient / Non-visitJetony Caseacher CHARGING CRANE OPERATOR Work Phone: [facility] Work Phone: Start: 01-05-2025 End: 41-12-5441Elpcwnyopn and management of inpatientPHYSICIAN NO [facility]-[address] [place] [address] Work Phone: Start: [id number] RecurringJetony Gunterrbacher CHARGING CRANE OPERATOR Work Phone: [facility]- CredibleStart: [id number]-patient / Non-visitAPRN Demetria Cifuentes Work Phone: [facility] Work Phone: Start: 08-01-2024 End: 78-21-7755Tyyqkizkhc and management of inpatientAPRN Demetria Cifuentes Work Phone: [facility] [place] [address] Work Phone: Start: 07-27-2024 End: 26-92-0343riijcybeujUzpsnjtjmMemorial Health System [place] [facility] Work Phone: Start: 07-27-2024 End: 39-68-3232Xayiwaf encounter procedureHighlands[facility] Work Phone: Start: 06-29-2024 End: 56-29-9014jcqxyfxxhvLvttmtszlMemorial [facility] Work Phone: Start: 06-29-2024 End: 59-24-0098Wrxawsr encounter procedureHighlands-C[facility]Ge[facility] Work Phone: Start: 07-24-1401lulimuszttIacggms R WATERSFacility:EU BellevueStart: 04-25-2024 End: 53-06-1932Nff-admission assessmentPakay PATEL [facility] Start: 04-25-2024 End: 02-36-9160Juswoql encounter procedureJoel Elisabeth PATEL [facility] start: 03-03-2024 End: 04-96-3780vptvbhsemvSgryjvkemMemorial Health [facility] Work Phone: Start: 03-03-2024 End: 36-47-9973Blyzkiw encounter procedureHigh[facility] Work Phone: Start: 02-15-2024 End: 56-99-5033zqqpvupmguPgdifpciuMemorial Health System [facility] Work Phone: Start: 02-15-2024 End: 38-82-0830Xsxrksc encounter procedureHigh[facility] Work Phone: Start: 40-13-0712Wys-patient / Non-visitFirbon [facility] Work Phone: Start: 12-11-2023 End: 36-90-4625hpuyqiealmXmnsfvvgsMemorial Health System [facility] Work Phone: Start: 12-11-2023 End: 02-10-3096Gfoxdeq encounter procedureHigh[facility] Work Phone: Start: 07-31-0014Hjp-patient / Non-visitHighlands-C[facility] Work Phone: Start: 12-04-2023 End: 70-73-2799qnfqrwtrskAiwljqst Rohrbacher Other [facility] Other Start: 61-55-1622Ubvukc outpatient new 30 minutes Demetria JuddCommunity [facility] Hospitaltart: 11-30-2023 End: 17-81-2226tjoxhbnrtoJOEVTQMJaney Graf AvailableStart: 10-29-2023 End: 20-76-5667qquosuijdnMJJST L JAXWilfredo AvailableStart: 10-16-2023 End: 72-45-7318jpymrvmvfmIlezqt Deisy Other [place] [facility] Other Start: 68-95-9179Oiikcy outpatient visit 15 minutes [facility] ClydeStart: 10-16-2023 End: 91-87-9512Ygsqlcm encounter procedureHighlands-[facility] Work Phone: Start: 01-24-2023 End: 68-77-5210gaekqfqicqItebxzzdqSamar[facility] Work Phone: Start: 01-24-2023 End: 50-64-5779Zibamzn [facility] [place] Work Phone: Start: 01-23-2023 End: 72-01-1456emiablpbrbUluciyfbcSamaritan North [facility] Work Phone: Start: 01-23-2023 End: 98-07-6199Glaljzhe [facility]erredC[facility] [place] Work Phone: Start: 01-22-2023 End: 76-40-7204Dwbeppslhj and management of inpatientDR NONE LISTED REQUEST Facility:O3Zqdyj: 01-22-2023 End: 84-13-7116oxzsbtvfjnNxppbvyabSamaritan North [facility] Work Phone: Start: 01-22-2023 End: 98-74-1318Rnaiywib ReferredKettering Health [facility] [place] Work Phone: Start: 09-29-2022 End: 11-21-9109Juasjkin ReferredNP-C Lynn [facility]-Lab Main CampusStart: 09-29-2022 End: 84-60-9382oresiaqorvPJ-C Lynn [facility] Work Phone: Start: 13-87-7381Pxqjvr outpatient new 20 minutes Lynn DymondFPG [facility] Care ClydeStart: 04-20-2022 End: 73-04-8563Cxxysmbbvr and management of inpatientSKettering Health Troytart: 66-70-4948Qlepcvn encounter procedureSdima Villalobos [facility] AdmittingStart: 07-30-2020 End: 05-89-5872Rmlcrthzoj and management of inpatientSCleveland Clinic Mercy Hospitaltart: 45-36-9411Nsbzyfk encounter procedureSMunson Healthcare [facility], [place]Start: 07-30-2020 End: 93-59-4926Tkgshocxjd and management of inpatientRavinod Hayes Work Phone: stvz 4C Onc/Med SurgComment on above:Suicide attempt by multiple drug overdose, initial encounter (HCC) (Primary Dx); Toxic metabolic encephalopathyStart: 02-27-2020 End: 66-05-6181Vwvjpph encounter procedureGalileo Mcmanus Work Phone: [facility] Work Phone: Start: 02-26-2020 End: 77-30-8938Crltoekkin and management of inpatientSMADIGAN AR[facility] MARIEHarris Health System Ben Taub Hospitaltart: 69-23-3546Nbdpeze encounter procedureSKindred, KYStdallas: 02-15-2020 End: 72-77-4166Bpftiht encounter procedureSMADIGAN ARMY [facility] KEVYNUNION COUNTY GENERAL HOSPITALPAULSeymour Hospital CenterStart: 02-15-2020 End: 22-64-9000Woqltevfin hospital visit by physicianStr Xr Rm 1 Op [facility] RadiologyComment on above:Left knee pain, unspecified chronicityStart: 02-14-2020 End: 31-92-4617Hpujkhwvzno patientJessnikkie Jose E Work Phone: [facility] Work Phone: Start: 02-14-2020 End: 22-13-3638qvmunhhivrPyjqt Lilia Work Phone: [facility] Work Phone: Procedures DateProcedureProcedure DetailPerforming ClinicianStart: 96-37-6464S-ray of lumbar spine, two or three viewsAPREllen Augustin Esau Work Phone: Start: 67-55-2568P-ray of thoracic spine, two views CHARGING CRANE OPERATOREllen Augustin Esau Work Phone: Start: 35-84-1141Docchji blood reagent stripBryan C Vinicio Work Phone: Start: 99-78-5671Nqoaqtn blood reagent stripBryan C Vinicio Work Phone: Start: 07-93-0191Puwvxex blood reagent stripBryan C Vinicio Work Phone: Start: 90-28-2352Uovqghbqik glycosylated q0zHlnu Opal Barragan Work Phone: Start: 45-83-7063Ljpcadu blood reagent stripBryan C Vinicio Work Phone: Start: 44-28-2892Betlrhd blood reagent stripBryan C Vinicio Work Phone: Start: 95-45-4019MRLOJL STRIP REPORTHpf ScanningStart: 96-50-3913Nxcvyyn blood reagent stripBryan C Vinicio Work Phone: Start: 10-03-7828Vmrezmk blood reagent stripBryan C Vinicio Work Phone: Start: 87-20-8763OMRDD OXIMETRY, CONTINUOUSFITO AKERStart: 46-55-3825Qvqxxvw blood reagent stripSDIMA AKERStart: 53-02-5370FQPOF-, ANTIBODY, TOTALSACHACORTA AKERStart: 63-68-4139SSWZF- FITO MCtart: 12-23-9048Lpbtw count complete auto&auto difrntl wbc FITO AKERStart: 00-12-4562Hgtxivhripgih metabolic panelSDIMA VILLALOBOS Start: 07-23-0091Iyakngo function panelSIDMA AKERStart: 59-05-3975Refsweh blood reagent stripJean Pierre Batron Work Phone: Start: 21-43-0654DWFRP-19, ANTIBODY, TOTALRebriericarda Jorge Work Phone: Start: 10-58-8888VHRRA-19Rekhricarda Patel Work Phone: Start: 44-90-8536HRYVTTZLC PATIENTSDIMA SALEHGLADYSPAULAna Start: 94-44-7023BQYWR OXIMETRY, CONTINUOUSSASUBURBAN COMMUNITY [facility]ITAL [facility] MCtart: 08-01-2020 Glucose blood reagent stripJean Pierre Barton Work Phone: Start: 29-90-8202JZDVUWL PRECAUTIONSCHACORTA VILLALOBOS Start: 13-00-6595IINYP OXIMETRY, CONTINUOUSOAKFIELD KEVYNTOMASAÁNGELAtart: 08-01-2020 Glucose blood reagent stripSDIMA SALEHGLADYSYONATANtart: 28-36-5775HJDQ GENERALSASUBURBAN COMMUNITY HOSPITAL [facility] MCtart: 04-54-3893Oldgrda blood reagent stripJean Pierre Barton Work Phone: Start: 32-15-9047PFQBMTJI OXYGEN THERAPY PROTOCOLSSIERRA TUCSONJoyce AKERStart: 71-90-5650RGOLE CANNULA OXYGENSASUBURBAN COMMUNITY HOSPITAL & [facility] MCtart: 59-13-7157ZUDML OXIMETRY, CONTINUOUSOAKFIELD MCtart: 49-22-0583Iuppytb blood reagent stripSDIMA SALEHCLARISSEtart: 82-63-7716Dzsdm count complete auto&auto difrntl wbcSASUBURBAN COMMUNITY HOSPITAL [facility] KEVYNTOMASAÁNGELAtart: 34-84-6834Uubzkawrpkyqz metabolic panelSLEO PAULHUNTERtart: 10-13-0912Iukiwtt function panelSDIMA VELEZMARINPAULAna Start: 71-40-4913Qnpztaa blood reagent stripJean Pierre Barton Work Phone: Start: 19-50-5607NODIL METABOLIC PANEL W/ REFLEX TO MG FOR LOW KSrikanth Popuri Work Phone: Start: 70-66-9321Qzsqc count complete auto&auto difrntl wbcSrikarobles Rucker Work Phone: Start: 51-25-9054Rzdgfhl function panelRepeter Patel Work Phone: Start: 68-03-4935GAQPV OXIMETRY, CONTINUOUSFITO AKERStart: 75-45-5582WHRMM OXIMETRY, CONTINUOUSFITO AKERStart: 48-20-8567Hpjyrlf blood reagent stripSDIMA AKERStart: 92-59-5846RBJJO OXIMETRY, CONTINUOUSFITO INGRAMSStart: 41-55-8634Xrzusyf blood reagent stripJean Pierre Barton Work Phone: Start: 62-49-8424Dnmcmoe blood reagent stripSDIMA AKERStart: 46-03-5811YMWBV OXIMETRY, CONTINUOUSFITO AKERStart: 39-80-5111Chjtapd blood reagent stripJean Pierre Barton Work Phone: Start: 19-47-2136PKV SCANNED REPORTSDIMA VELEZMARINVERO Start: 89-35-1948QLT SCANNED REPORTHpf ScanningStart: 17-29-1222TGFSO OXIMETRY, CONTINUOUSFITO AKERStart: 23-19-6648Bucctmf blood reagent stripSDIMA AKERStart: 55-66-1899Eulnkig blood reagent stripJean Pierre Barton Work Phone: Start: 87-77-1447DD CONSULT TO PSYCHIATRYSAJoyce PAULMARLENYÁNGELAtart: 52-58-0552Ztcospl blood reagent stripSDIMA AKERStart: 94-03-3512HSMJQQCF OXYGEN THERAPY PROTOCOLSDIMA PAULMARLENYÁNGELAtart: 07-31-2020 NASAL CANNULA OXYGENFITO SALEHTOMASAÁNGELAtart: 35-44-2267BQGVR OXIMETRY, CONTINUOUS FITODEZ AKERStart: 83-11-6050Ffkfsae blood reagent stripJean Pierre Barton Work Phone: Start: 42-91-6953Umrfr of ammoniaFITO VELEZDAT Start: 25-69-1815Otenldd function panelSDIMA AKERStart: 96-78-5321Igb routine ecg w/least 12 lds w/i&rSACHACORTA AKERStart: 31-75-7999JCP REPORT FITO AKERStart: 34-66-4104QCBHRBS PRECAUTIONSFITO AKERStart: 09-27-8960DGLNW OXIMETRY, CONTINUOUSFITO AKERStart: 57-28-2106Naipy of ammoniaRepeter Patel Work Phone: Start: 16-96-7601Kdhpjjt function panelLizzeth Patel Work Phone: Start: 66-90-1668Jis routine ecg w/least 12 lds trcg only w/o i&rRnahum Patel Work Phone: Start: 56-08-1235BSF REPORTHpf ScanningStart: 30-96-5373Fthkghesaaluqbp tricyclic other cyclicals 1 or 2SDIMA VELEZDAT Start: 22-73-1058Wslnl of thyroid stimulating hormone tshFITO AKERStart: 76-03-3509Kuxcdsbdaa glycosylated t5zREAWDFITO AKERStart: 39-26-3510Xjettsc antibodiesFITO AKERStart: 47-29-8680Pdrep panelSDIMA AKERStart: 49-70-5156Aoqjnetssqd direct measurement ldl cholesterolFITO AKERStart: 09-75-7171Kmzfj misc pathSDIMA AKERStart: 21-15-9705ULZZQGI PRECAUTIONS FITO AKERStart: 65-48-7163INLTZ WEIGHTSFITO AKERStart: 06-53-9924YJBBI OXIMETRY, CONTINUOUSFITO AKERStart: 12-24-7128Hgsixjg blood reagent stripSDIMA AKERStart: 61-39-6340Klkoz of thyroid stimulating hormone tshsiljosephjoyce Chaim Work Phone: Start: 49-19-5470FOT-65 AUTOANTIBODYSrtrent Rucker Work Phone: Start: 54-56-9591Nolqaxmjce glycosylated z3uBrewabto PopVidedressing Work Phone: Start: 21-22-6308Jbooj panelSrijesus HadleyVidedressing Work Phone: Start: 86-69-2535Axpjiathflz direct measurement ldl cholesterolTj [employer] Work Phone: Start: 02-87-1363YXKKNZDQBJsiuakig [employer] Work Phone: Start: 91-36-6002Xtufz count complete auto&auto difrntl wbcSACHACORTA MCtart: 49-19-9662Tmscpkaebpcan metabolic panelSDIMA AKERStart: 00-29-1388IDVK CODESDIMA AKERStart: 42-51-5924YPPUQMZY OXYGEN THERAPY PROTOCOLSDIMA AKERStart: 98-56-6848CV CONSULT TO CASE MANAGEMENTFITO Garciart: 81-25-6966QCZND CANNULA OXYGENSACHACORTA AKERStart: 57-88-1074WIAYQ/VASCULAR CHECKSSACHACORTA AKERStart: 60-17-8950JRQAYM PHYSICIAN (SPECIFY)FITO Garciart: 01-86-8499PZ EVAL AND TREATFITO Garciart: 95-81-6310YG EVAL AND TREATFITO VILLALOBOS Start: 96-04-2196MJRYP OXIMETRY, CONTINUOUSSACHACORTA Garciart: 07-30-2020 REASON FOR NO MECHANICAL VTE PROPHYLAXISFITO Garciart: 87-54-5505ERCSDB AT BEDSIDEFITO Garciart: 36-12-3508ZFJXIPD PRECAUTIONSSACHACORTA AKERStart: 52-16-1852PERYINDFK MONITORINGSACHACORTA Garciart: 74-71-8161JZGZL SIGNSSACHACORTA AKERStart: 17-45-6406Jtiirfs blood reagent stripComaisha Grubbs Work Phone: Start: 16-77-9071DLSFECK STATUS (FROM ED OR OR/PROCEDURAL)FITO AKERStart: 72-64-0798Wwqq screen class list Gerri Garciart: 79-71-4673Fcsri of lactateFITO AKERStart: 09-66-2580GQ CONSULT TO INTERNAL MEDICINESDIMA AKERStart: 19-78-6714Mzm routine ecg w/least 12 lds w/i&rSACHACORTA AKERStart: 43-87-9997TYO REPORTSDIMA AKERStart: 22-11-5449Rrup screen class list aGeoffrey Garst Work Phone: Start: 20-28-6492Uabigtxtpa exam chest single view FITO SALEHGLADYSYONATANdavidrt: 48-36-6888QBOTGJM PRECAUTIONSFITO Garciart: 09-67-1165Vkecm of lactateGebari Cho Work Phone: Start: 26-97-8935HSUPZ GAP (CALC) POCFITO VILLALOBOS Start: 15-11-8674Jhhvt count hemoglobinFITO KAERStart: 33-39-0820Kkfhxqe ionizedFITO AKERStart: 27-20-4744Xumkbkdo other sourceSDIMA VILLALOBOS Start: 05-50-9587SLTVVEZBFR W/GFR POINT OF CAREFITO AKERStart: 46-75-4732Jxif bld gluc mntr dev cleared fda spec home useSDIMA VILLALOBOS Start: 80-77-8822Ltxvpjp blood reagent stripSDIMA SALEHGLADYSYONATANtart: 07-30-2020 LACTIC ACID,POINT OF CAREFITO AKERStart: 98-13-2977Wyoblvnee serum plasma/whole bloodFITO VELEZMARLENYÁNGELAtart: 33-75-5015Zamyrn serum plasma or whole bloodFITO SALEHGLADYSYONATANtart: 07-85-9018FDOAKA BLOOD GAS, POINT OF CAREFITO SALEHGLADYSYONATANtart: 05-22-2487Hniljillfvcmokn tricyclic other cyclicals 1 or 2 FITO SALEHTOMASAÁNGELAdaivdrt: 04-62-7585Lgbvz of lipaseFITO SALEHGLADYSKASStart: 87-94-6923Fnfju count complete auto&auto difrntl wbcSACHACORTA INGRAMSStart: 61-98-9156Htba tst prsmv instrmnt chem analyzers pr Brendan INGRAMSStart: 73-92-1620Mfr routine ecg w/least 12 lds trcg only w/o i&rWaseem Kyle Work Phone: Start: 83-93-0317OVA REPORTHpf ScanningStart: 79-07-2625Ybabzysmos exam chest single viewGeoffrey Tammie Work Phone: [phone]: 38-30-6593BMKZT GAP (CALC) POCPerezellen Freddy Work Phone: [phone]: 28-55-9567Pvflr count hemoglobinRazaellen Freddy Work Phone: [phone]: 40-57-1932VNPEKSD, IONIC (POC)Peace Juan-Sandra Work Phone: [phone]: 87-24-9587Dqbevtpi [Moles/Vol]Malikkarina Freddy Work Phone: Start: 36-76-0136WYTUTTNGEM W/GFR POINT OF CAREPerezellen Juan-Sandra Work Phone: [phone]: 25-01-3711Cuxp bld gluc mntr dev cleared fda spec home useRazan Freddy Work Phone: Start: 40-06-9279Ussnjcg blood reagent stripRazaellen Freddy Work Phone: [phone]: 02-18-2716FUFJRN ACID,POINT OF CAREPerezellen Juan-Claires Work Phone: Start: 60-25-6143Gbywlegpv [Moles/Vol]Peace Juan-Sandra Work Phone: [phone]: 63-03-2403Ywdphh [Moles/Vol]Peace Juan-Claires Work Phone: Start: 09-34-1753BPFOFA BLOOD GAS, POINT OF CARERazaellen Juan-Claires Work Phone: Start: 34-41-8038Zurfp of lipaseGeoffrey Gar Work Phone: Start: 94-24-7010Przjb count complete auto&auto difrntl wbcGeoffrey Garst Work Phone: Start: 04-69-7283BKB SCR, BLD, EDGeoffrey Garst Work Phone: Start: 41-50-6270BFVRAZCPALnfbvilt Garst Work Phone: Start: 07-30-2020 End: 33-03-2534Vlq routine ecg w/least 12 lds trcg only w/o i&rGeoffrey Garst Work Phone: Start: 07-30-2020 End: 12-81-6302RMU REPORTHpf ScanningStart: 09-12-2572WBCALVHQN PATIENTSDIMA Josert: 40-42-9188QCSO CODESDIMA MCtart: 58-66-5262SAHHTVW MONITORING CLOSE Q 15 MINUTESSAJoyce MCtart: 18-45-8261IJALMLX CESSATION EDUCATIONSACHACORTA MCtart: 00-10-1676JTVSX SIGNSSACHACORTA MCtart: 43-81-8432EP CONSULT TO SOCIAL WORKSDIMA Josert: 10-75-1465ZAQPUZJ STATUS (FROM ED OR OR/PROCEDURAL)FITO MCtart: 56-51-2102PCRP GENERAL FITO Josert: 73-85-1595Vhkivuds bordetellaSACHACORTA MCtart: 87-06-5755Sxwoe of acetaminophenSARAJoyce AKERStart: 60-22-9730Yfhvr of ethanolSARAH MARIESStart: 55-04-5411Gaayv of osmolality bloodSARAJoyce INGRAMSStart: 42-21-2944Odiaz of salicylateSACHACORTA AKERStart: 12-34-9482Juddb of thyroid stimulating hormone tshSACHACORTA AKERStart: 85-58-1441Rcrmr metabolic panel calcium totalSACHACORTA INGRAMSStart: 02-26-2020 Blood count complete auto&auto difrntl wbcSACHACORTA INGRAMSStart: 93-61-0823Iazn screen class list Gerri INGRAMSStart: 89-49-4362Plgbb dip stick/tablet rgnt auto w/o microscopyFITO INGRAMSStart: 24-24-0128Gubij gap [Moles/Vol] Vannessaamed Eltierarani Work Phone: Start: 85-26-1333Vfmoj of acetaminophenMohamed Eldirani Work Phone: Start: 43-66-1338Wtkai of ethanolMohamed Eldirani Work Phone: Start: 96-48-4694Eaktl of osmolality bloodMohamed Eldirani Work Phone: Start: 89-83-3827Vnbjz of salicylateMohamed Eldirani Work Phone: Start: 26-29-1291Ptqum of thyroid stimulating hormone tshMohamed Eldirani Work Phone: Start: 22-23-8384Ogfoa metabolic panel calcium total Corinne Moncadarani Work Phone: Start: 36-60-6716Gnddu count complete auto&auto difrntl wbcMohamed Eldirani Work Phone: Start: 10-51-5603Xbxi screen class list aMohamed Eldirani Work Phone: Start: 37-96-4997Ayigy dip stick/tablet rgnt auto w/o microscopyMohamed Eldirani Work Phone: Start: 72-88-5800Nroittcjgx examination knee 3 views FITO SALEHTOMASASStart: 12-83-5713Csxzljeoyt examination knee 3 viewsFito Velezmarlenyana Work Phone: start: 56-54-9470SBUMAQGPJLMnklc KavalauskasStart: 33-30-2285Zvbjj bp <80 mm hgSarah Kavalauskas Work Phone: start: 89-34-8133CWRSAFCG Keren Villalobos Start: 68-76-4029Nzifqoswdjkjv w/patient 30 minutesJeángel Dorantes Work Phone: start: 33-78-7365Wr tobacco screen rcvd tlValeriano Villalobos Work Phone: Start: 55-60-8645Bx-focused hlth risk assmt score doc stnd instrLilliam Villalobos Work Phone: Start: 32-33-1177Tuzt bp >/= 140 mm Sheyla Villalobos Work Phone: start: 30-20-4893ahkntchp berated, harassed, or intimidateKailey VillalobosNone (qualifier value)Joel JORGE NEGATED: Highlighted row has not occurred!Start: 02-14-2020H/O: surgeryFito Villalobos Plan of Treatment DateCare ActivityDetailAuthorStart: 16-80-2780UyygtqwnnAs[facility]abula [facility] Start: 46-51-2622KbmvfjnohKettering Memorial Hospitaltart: 36-12-0296Fisalqvu to clinical allergistCleveland Clinic Avon Hospital CenterStart: 73-34-3878TzttuzgmbKettering Memorial Hospitaltart: 06-86-5067Ogqiwplm admissionKettering Memorial Hospitaltart: 59-34-7492TypnzxlzyCleveland Clinic Avon Hospital CenterStart: 07-60-5718ZlkzatfunCleveland Clinic Avon Hospital CenterStart: 26-40-1990MehrheitpCleveland Clinic Avon Hospital CenterStart: 97-25-2332Gfrefeeb to clinical allergistCleveland Clinic Avon Hospital CenterStart: 48-57-8504Kqrxsqqo to Social ServicesKettering Memorial Hospitaltart: 74-35-2237Taibrwpe admissionCleveland Clinic Avon Hospital CenterStart: 58-56-0575OsasusvoqKettering Memorial Hospitaltart: 08-04-2024 [facility] CenterStart: 11-66-9451Myebdetz to clinical creative services designer [facility] Hospitaltart: 26-92-7160VjekwzjubKettering Memorial Hospitaltart: 19-25-3463Tskvqmee to Social ServicesKettering Memorial Hospitaltart: 28-79-9446Wjksrrjy admissionKettering Memorial Hospitaltart: 66-24-0783KnizophgxKettering Memorial Hospitaltart: 44-44-6432Sixjpso referral [facility] Work Phone: Start: 05-03-4620Pnuytqm referralGalion Hospital Work Phone: Start: 04-24-3717Bypwvyy referralGalion Hospital Work Phone: Start: 08-29-9507VEcQ/Tdap/Td vaccine (7 - Td) DTaP/Tdap/Td vaccine (7 - Td)[facility] Centerart: 38-86-1529EazhnuhwhKettering Memorial Hospitaltart: 04-30-0255GoC5m (Bld) [Mass fraction]A1C test (Diabetic or Prediabetic)[place], [place]Std[place]: 37-66-0156LhP9u (Bld) [Mass fraction]A1C test (Diabetic or Prediabetic)[facility]: 07-31-2021 Lipid panelLipid [facility]: 08-04-2020 End: 33-92-2765Racnh metabolic 2000 panelBasic Metabolic Panel Lab Routine Toxic metabolic encephalopathy Expected: 08/04/2020, Expires: 08/01/2021[place], [place]Comsouthwest [facility] on above:Expected: 08/04/2020, Expires: 08/01/2021tart: 09-14-0079Cghpgxxcl [place], KYStart: 89-89-0007EX Knee 3 Views (33108)[facility] Work Phone: start: 65-73-9966QfanbfoqotbJvthmoFitchburg General Hospital Work Phone: comment on above:Note: Please make a referral to: Start: 71-97-7203Nhmczdpx microalbuminuria testDiabetic microalbuminuria test [facility]: 97-44-4087Rwslhdybyltnj (ACWY) vaccine (1 - 2-dose series)Meningococcal (ACWY) vaccine (1 - 2-dose series)[facility]: 74-71-9677DZF screeningHIV screenK[facility] Health [facility]: 96-82-5597XBN vaccine (2 - Male 2-dose series)HPV vaccine (2 - Male 2-dose series)[facility]: 46-64-3771ZFE vaccine (1 - Male 2-dose series)HPV vaccine (1 - Male 2-dose series)[facility]: 70-33-2267Ryupiqom foot examinationDiabetic foot examK[facility] Health [facility]: 51-40-4957Rueyuyhs retinal examDiabetic retinal examK[facility]: 2008 DTaP/Tdap/Td vaccine (1 - Tdap)DTaP/Tdap/Td vaccine (1 - Tdap)[facility]: 26-00-4369Svadjcbcidmf 0-64 years Vaccine (1 of 1 - PPSV23)Pneumococcal 0-64 years Vaccine (1 of 1 - PPSV23)[facility]: 09-04-2003 Hepatitis B vaccine (3 of 3 - Risk 3-dose series)Hepatitis B vaccine (3 of 3 - Risk 3-dose series)[facility]: 54-32-8047Gnfdmpcjt B vaccine (3 of 3 - 3-dose primary series)Hepatitis B vaccine (3 of 3 - 3-dose primary series)[facility]: 05-29-6578Ycsizbwok A vaccine (1 of 2 - 2-dose series)Hepatitis A vaccine (1 of 2 - 2-dose series)[facility]: 01-72-7619Eocxdnf,Mumps,Rubella (MMR) vaccine (1 of 2 - Standard series) Measles,Mumps,Rubella (MMR) vaccine (1 of 2 - Standard series)[facility]: 15-92-2521Kbuabximi vaccine (1 of 2 - 2-dose childhood series)Varicella vaccine (1 of 2 - 2-dose childhood series)[facility] HealthDENITAStart: 2001 Hepatitis B vaccine (1 of 3 - 3-dose primary series)Hepatitis B vaccine (1 of 3 - 3-dose primary series)[facility], DENITABasi Metabolic Panel w/ Reflex to MGBasic Metabolic Panel w/ Reflex to MG Lab Routine Daily until discontinued starting 07/31/2020, 1 completedParkview HealthDENITAComted on above:Daily until discontinued starting 07/31/2020, 1 completedCalculated LDL cholesterol level [facility] CenterCBC auto differentialCBC auto differential Lab Routine Daily until discontinued starting 07/31/2020, 1 completedParkview HealthLarissa on above:Daily until discontinued starting 07/31/2020, 1 completed Chlamydia trachomatis DNA [Presence] in Unspecified specimen by HEIDY with probe detectionSelect Medical Specialty Hospital - [facility], Inc Work Phone: cholesterol.total/Cholesterol in HDL [Mass Ratio] in Serum or PlasmaAshtabula County Medical CenterComprehensive metabolic 2000 panel - Serum or PlasmaAshtabula County Medical CenterContinuous pulse oximetryPulse oximetry, continuous Respiratory Care Routine Every 4hr until discontinued starting 07/31/2020[facility] HealthLarissa on above:Every 4hr until discontinued starting 07/31/2020 End: [id number] AUTOANTIBODYGAD-65 AUTOANTIBODY Lab Add-On One Time for 1 Occurrences starting 07/30/2020 until 07/30/2020[facility] HealthDENITAComted on above:One Time for 1 Occurrences starting 07/30/2020 until 07/30/2020[facility]-65 AUTOANTIBODYGAD-65 AUTOANTIBODY Lab Add-On 07/31/2020 12:26 AM [facility]DLake[facility] CenterDENITAGlucose measurement estimated from glycated hemoglobinAshtabula County Medical CenterHemoglobin A1c/Hemoglobin.total in BloodAshtabula County Medical CenterHEPATIC FUNCTION PANELHEPATIC FUNCTION PANEL Lab Routine Daily until discontinued starting 07/31/2020, 2 heavenParkview HealthLarissa on above:Daily until discontinued starting 07/31/2020, 2 completed End: [id number] sendout 2Miscellaneous sendout 2 Lab Routine Once for 1 Occurrences starting 07/31/2020 until 07/31/2020[facility], [place] Comment on above:Once for 1 Occurrences starting 07/31/2020 until 07/31/2020 Miscellaneous sendout 2Miscellaneous sendout 2 Lab Routine 07/31/2020 12:26 AM [facility]TMMer[facility], KYNasal Cannula oxygenNasal Cannula oxygen Respiratory Care Routine Daily until discontinued starting 07/30/2020[facility], [place]Comment on above:Daily until discontinued starting 07/30/2020Neisseria gonorrhoeae DNA [Presence] in Unspecified specimen by HEIDY with probe detectionC[facility] Clinic [facility] Work Phone: Oxygen therapy [Minimum Data Set]Initiate Oxygen Therapy Protocol Respiratory Care Routine Daily until discontinued starting 07/30/2020[facility], [place]Comment on above:Daily until discontinued starting 07/30/2020Patient EducationC[facility] Ctr Work Phone: [facility]Gal[facility] Work Phone: POCT GlucosePOCT Glucose Point of Care Testing STAT As Needed until discontinued starting 07/30/2020[facility], [place]Comment on above:As Needed until discontinued starting 07/30/2020 End: 19-71-2294KJAGIDCGSBnkxx Health- [place], [place]Comment on above:One Time for 1 Occurrences starting 07/30/2020 until 07/30/2020[facility], [place] Trichomonas vaginalis DNA [Presence] in Unspecified specimen by HEIDY with probe detectionCleveland Clinic [facility] Work Phone: VLDL cholesterol measurementHCA [facility] Immunizations Immunization DateImmunizationNotesCare WqblnpbpRrdulusx66-40-9134tnfjvzela, seasonal, injectable, preservative freeAPRN Demetria Cifuentes Work Phone: [facility]08-31-2021SARS-CoV-2 (COVID-19) mRNA BNT-162b2 sungxPakay PATEL [facility]08-10-2021SARS-CoV-2 (COVID-19) mRNA BNT-162b2 [place] PATEL [facility] Morrow DatePayer CategoryPayerPolicy [id number] BCBS - [place] PPO xxxxxxxxxxxx 2020-Present [address] [place], [place] [address]lqbj,xxxxx [id number],[id number] UnknownBCBS BCBS - [place] PPO xxxxxxxxxxxx 2019-Present [address] [place], [place] [address]cpecilqqkkbm [id number]75.80238-84-1396Igfpllh [id number] 2.16.840.1.035620.3.140.1.38412.[id number] 2.16.840.1.263811.3.5[id number] 2.16840.1.150888.3.5[id number] 2.16840.1.949935.3.5[id number] 2.16.840.1.994093.3.57[id number] 2.16.840.1.437267.3.57[id number] 2.16.840.1.718433.3.57[id number] 2.16.840.1.266738.3.579.2.514978-04-5557Ewdxclk525358 2.16.840.1.816943.3.57[id number] 2.16.840.1.736691.3.57[id number] 2..840.1.968825.3.57[id number] 2.16.840.1.122208.3.579.[id number] [id number] [id number] [id number]-s261-7cxp-97c4-[id number] 2.0.1.7[id number] 2.840.1.922175.3.579.2.531 [id number] 2..1.4[id number] 2.0.1.03569[id number] 2.0.1.100262.3.579.2.531 [id number] 2..1.850084.3.579.2.531 Social History DateTypeDetailFacilityAssertionSexually active (finding)[facility] Work Phone: assertionGender identity finding (finding)[facility] Work Phone: assertionExposure to pollution (event)[facility] Work Phone: assertionFinding of sexual orientation (finding)[facility] Work Phone: AssertionTobacco user (finding)[facility] Work Phone: Start: 08-01-2024 End: 92-33-1235Enxxtqk smoking statusUnknown if ever smokedAshtabula County Medical CenterAssertionProblem situation relating to social and personal history (finding)[facility] Work Phone: AssertionEmotional stress (finding)[facility] Work Phone: [phone] (finding)[facility] Work Phone: AssertionExecutive [facility]rology [facility] BellevueAssertionVictim status (finding)[facility] Work Phone: AssertionVictim of child abuse (finding)[facility] Work Phone: AssertionFinding relating to drug misuse behavior (finding)[facility] Work Phone: AssertionHeterosexual (finding)[facility] Work Phone: AssertionLives with relatives (finding)[facility] Work Phone: AssertionVictim of child neglect (finding)[facility] Work Phone: AssertionVictim of physical abuse (finding)[facility] Work Phone: DssertionSingle person (finding)[facility] Work Phone: NpzclclbtIsdc-fyao employment (finding)[facility] Work Phone: Sex Assigned At BirthNot on [facility] [place] Start: 02-27-2020 End: 39-06-9993Xocscto smoking status NHISCurrent every day smokerParkview Health, [place]History of tobacco useCigarette SmokerParkview Health, KYStart: 02-27-2020 End: 00-08-4576Wwvjufmkha smoked current (pack per day) - ReportedParkview Health, KYHistory of tobacco useChews TobaccoParkview Health, KYStdallas: 02-27-2020 End: 54-88-6884Ieockat intakeCurrent drinker of alcohol (finding)[facility], [place]Std[place]: 98-57-5500Chudxyk SDOH Alcohol Znuptoayt7MkladParkview Health, KYStart: 12-47-3641Qzwhhmp SDOH Alcohol Std Oiwckn0UfaqxParkview Health, KYExposure to SARS-CoV-2 (event)Unable to assessParkview Health, KYStart: 41-20-0655Bnyuben use and exposureFormer userParkview Health, KYExposure to SARS-CoV-2 (event)Not sureParkview Health, [facility]: 01-12-8564Gxg [facility]: 06-63-5887Tvkizpy smoking status NHISNever smoked tobacco (finding)[facility]: 04-25-2024 End: 95-57-2559Xmkjrsl smoking statusSmoker (finding)[facility] BellevueStart: 01-05-2025 End: 80-09-4122BmyTsbn (finding)[facility] CenterNEGATED: Highlighted rowAssertionCurrent drinker of alcohol (finding)[facility] Work Phone: NEGATED: Highlighted rowAssertionFinding relating to drug misuse behavior (finding)[facility] Work Phone: NEGATED: Highlighted rowAssertionHealth Partners [facility] Work Phone: NEGATED: Highlighted rowAssertionCriminal behavior (finding)[facility] Work Phone: NEGATED: Highlighted rowAssertionInadequate food diet (finding)[facility] Work Phone: NEGATED: Highlighted rowAssertionTobacco user (finding)[facility] Work Phone: NEGATED: Highlighted rowAssertionExposure to pollution (event)[facility] Work Phone: Medical Equipment Procedure CodeEquipment CodeEquipment Original TextEquipment IdentifierDates Blood Sugar Diagnostic (Freestyle Precision Jorge Strips) stripStart: 03-03-2024 Blood Sugar Diagnostic (Freestyle Precision Jorge Strips) stripStart: 03-03-2024 End: 52-25-5401Bcp Needle, Diabetic (Bd Ultra-Fine Micro Pen Needle) 32 gauge x 1/4 needleStart: 77-86-9610Qcpys Sugar Diagnostic (Freestyle Precision Jorge Strips) stripStart: 03-03-2024 End: 19-34-1047Ent Needle, Diabetic (Bd Ultra-Fine Micro Pen Needle) 32 gauge x 1/4 needleStart: 80-42-8362Gulsm Sugar Diagnostic (Freestyle Precision Jorge Strips) stripStart: 03-03-2024 End: 08-85-7614Bbs Needle, Diabetic (Bd Ultra-Fine Micro Pen Needle) 32 gauge x 1/4 needleStart: 64-76-1740Xslsl Sugar Diagnostic (Freestyle Precision Jorge Strips) stripStart: 03-03-2024 End: 47-80-8744Yjcsq Sugar Diagnostic stripStart: 79-62-5293Gyd Needle, Diabetic (Bd Ultra-Fine Micro Pen Needle) 32 gauge x 1/4 needleStart: 53-97-0229Gngqn Sugar Diagnostic (Freestyle Precision Jorge Strips) stripStart: 03-03-2024 End: 05-95-1495Uewvb Sugar Diagnostic stripStart: 28-55-5594Abb Needle, Diabetic (Bd Ultra-Fine Micro Pen Needle) 32 gauge x 1/4 needleStart: 09-27-1843Qpbyx Sugar Diagnostic (Freestyle Precision Jorge Strips) stripStart: 03-03-2024 End: 20-18-4579Jvxjn Sugar Diagnostic stripStart: 54-57-5496Zbo Needle, Diabetic (Bd Ultra-Fine Micro Pen Needle) 32 gauge x 1/4 needleStart: 51-87-0886Xrcww Sugar Diagnostic (Freestyle Precision Jorge Strips) stripStart: 03-03-2024 End: 85-48-2891Nusom Sugar Diagnostic (Freestyle Precision Jorge Strips) strip Start: 03-03-2024 End: 78-38-6830Rfdpy Sugar Diagnostic stripStart: 06-29-2024 End: 46-52-1643Jas Needle, Diabetic (Bd Ultra-Fine Micro Pen Needle) 32 gauge x 1/4 needleStart: 06-29-2024 End: 04-05-2025 Goals DatePatient GoalDesired Activity/State Functional Status BafhDrygybeflfDetvvcCevjggmd78-05-4065Kjgtmtdgfh statusPatient at Baseline [facility] Work Phone: [phone]xuotayg statusPatient Not at Baseline [facility] Work Phone: 1([phone]) [phone]atzxgifw statusPatient at Baseline [facility] Work Phone: 1([phone]) [phone]biykfox statusPatient at Baseline [facility] Work Phone: [phone]gtzv StatusN/AExecutive Urology of [facility] Mental Status OjvoKjzneeqjjrTuyopxMxoejlsp32-78-8455Cdlahyath functionCognitive Status [facility] Work Phone: [phone]gufgnk functionCognitive Status Patient Not at Baseline[facility] Work Phone: [phone]) [phone] functionCognitive Status Patient at [facility] Work Phone: [phone] functionCognitive Status Patient [facility] Work Phone: Cognitive functionCognitive functioning was normal Cognitive function finding (finding)[facility] Work Phone: Clinical Notes 09-29-2022 to 04-04-2025 Note Date & KjnpNiioKdxhozxn89-20-9232 Progress note Author Ceferino Edwards [facility] CenterNote Date/TimeJune 2024 2:58pm[place] [address] Psychiatry Progress Note Signed Patient: Tracie Ramirez MR#: [id number] 4579 : 2000 Acct:[id number] Age/Sex: 25 / M Adm Date: 5 Loc: 1S Room: [address] [place] [address] Type : ADM IN Attending Dr: Blue Talbot MD Copies to: ~ Date of Service: 04/04/2025 Subjective Subjective Narrative: Mr. Ramirez is a 25 year old male on day 4 of hospitalization for SI. Today, pt presented as anxious. He was denied from [facility] but was accepted at two other programs. [...] <Electronically signed by Ceferino Edwards MD> 04/04/25 5770 [facility] Work Phone: 1(649) 488-182506-10-2025 Progress noteDeborah [place] [id number] Psychiatry Progress Note Signed Patient: Tracie Ramirez MR#: [id number] 4579 : 2000 Acct:[id number] Age/Sex: 25 / M Adm Date: 5 Loc: 1S Room: [address] [place] [address] Type : ADM IN Attending Dr: Blue Talbot MD Copies to: ~ Date of Service: 04/04/2025 Subjective Subjective Narrative: Mr. Ramirez is a 25 year old male on day 4 of hospitalization for SI. Today, pt presented as anxious. He was denied from [facility] but was accepted at two other programs. He is going back and forth on which center he will go to. He states anxiety and depressionas 2/10. Patient is much less on edge [...] MD 04/04/25 1040 Signed By: 04/04/25 1458 [facility]06-09-2025 Progress note Author Ceferino Edwards [facility] CenterNote Date/TimeJune 2024 3:35pm[place] [address] Psychiatry Progress Note Signed Patient: Tracie Ramirez MR#: [id number] 4579 : 2000 Acct:[id number] Age/Sex: 25 / M Adm Date: 5 Loc: 1S Room: [address] [place] [address] Type : ADM IN Attending Dr: Blue [...] <Electronically signed by Ceferino Edwards MD> 04/03/25 4909 [facility] Work Phone: 1(818) 511-924206-09-2025 Progress noteDeborah [place] 6111270 Psychiatry Progress Note Signed Patient: Tracie Ramirez MR#: [id number] 4579 : 2000 Acct:[id number] Age/Sex: 25 / M Adm Date: 5 Loc: 1S Room: [address] [place] [address] Type : ADM IN Attending Dr: Blue [...] By: Ceferino Edwards MD 04/03/25918 Signed By: 04/03/25 1535 [facility]06-08-2025 Consult note Author Rola Valdes [facility] CenterNote Date/TimeJune 2024 8:09[place] [id number] Hospitalist Consult Note Signed Patient: Tracie Ramirez MR#: [id number] 4579 : 2000 Acct:[id number] Age/Sex: 25 / M Adm Date: 5 Loc: Room: [address] [place] [address] Type: ADM IN Attending Dr: Blue Talbot MD Copies to: MD Demetria Hastings APRN, LEAD CASTER Rola Valdes APRN NO FAMILY PHYSICIAN Dayan Perrin MD~ HPI DATE OF CONSULTATION: 04/01/25 REQUESTING PROVIDER: Blue Talbot Consult Narrative Reason for Consult: Hypertriglyceridemia, diabetes HPI: This is a 25-year-old male past medical history significant for hypertriglyceridemia, insulin-dependent diabetes, obesity, depression. Presented to [facility] last evening with suicidal ideation and depression. Transferred to [facility] for ongoing psychiatric management. Hospitalist team [...] negative unless noted below or in HPI [facility] Medical History Chronic pain of left knee [...] 400 mg suspension, extended rel.intramuscular syringe (Ramon Mainviveka) 400 mg IM Q28D #1 ea 01/09/25 [...] scheduled aspart -labs in AM, labs from [place] unreportable secondary to lipophilic Depression -further plan of care per inpatient psychiatric team for psychoactive medication management/ adjustment and psychotherapy Documented By: Rola Valdes, CHARGING CRANE OPERATOR 05/19 1630 Signed By: <Electronically signed by HAILEE Valdes> 04/01/25 1631 <Electronically signed by Dayan Perrin MD> 04/02/25 0809 [facility] Work Phone: 1(396) 585-376206-08-2025 Progress note Author Blue guerrero [facility] CenterNote Date/TimeJune 2024 6:39[place] [address] Psychiatry Progress Note Signed Patient: Tracie Ramirez MR#: [id number] 4579 : 2000 Acct:[id number] Age/Sex: 25 / M Adm Date: 5 Loc: 1S Room: [address] [place] [address] Type : ADM IN Attending Dr: Blue [...] [facility] [place] [place] Continue current med regimen Monitor mental status Encourage group participation and psychotherapy Documented By: Blue Talbot MD 5 0636 Signed By: <Electronically signed by Blue Talbot MD> 04/02/25 0639 [facility] Work Phone: 1([phone]) 194-704106-08-2025 [place] [address] Hospitalist Consult Note Signed Patient: Tracie Ramirez MR#: [id number] 4579 : 2000 Acct:[id number] Age/Sex: 25 / M Adm Date: 5 Loc: Room: [address] [place] [address] Type: ADM IN Attending Dr: Blue Talbot MD Copies to: MD Deemtria Hastings APRN, LEAD CASTER Rola Valdes APRN NO FAMILY PHYSICIAN Dayan Perrin MD~ HPI DATE OF CONSULTATION: 04/01/25 REQUESTING PROVIDER: Blue Talbot Consult Narrative Reason for Consult: Hypertriglyceridemia, diabetes HPI: This is a 25-year-old male past medical history significant for hypertriglyceridemia, insulin-dependent diabetes, obesity, depression. Presented to [facility] last evening with suicidal ideation and depression. Transferred to [facility] for ongoing psychiatric management. Hospitalist team [...] negative unless noted below or in HPI [facility] Medical History Chronic pain of left knee [...] scheduled aspart -labs in AM, labs from [place] unreportable secondary to lipophilic Depression -further plan of care per inpatient psychiatric team for psychoactive medication management/ adjustment and psychotherapy Documented By: Rola Valdes APRN 05/19 1630 Signed By: 04/01/25 1631 04/02/25 0809 [facility]06-08-2025 [place] [address] Psychiatry Progress Note Signed Patient: Tracie Ramirez MR#: [id number] 4579 : 2000 Acct:[id number] Age/Sex: 25 / M Adm Date: 5 Loc: 1S Room: [address] [place] [address] Type : ADM IN Attending Dr: Blue [...] feeling suicidal. [facility] [place] [place] Continue current med regimen Monitor mental status Encourage group participation and psychotherapy Documented By: Blue Talbot MD 5 0636 Signed By: 04/02/25 0639 [facility]06-07-2025 History and physical note Author Blue guerrero [facility] CenterNote Date/TimeJune 2024 2:29pm[place] [address] Psychiatry H&P Signed Patient: Tracie Ramirez MR#: [id number] 4579 : 2000 Acct:[id number] Age/Sex: 25 / M Adm Date: 5 Loc: Room: [address] [place] [address] Type: ADM IN Attending Dr: Blue Talbot [...] outpatient appointments are scheduled prior to discharge. [facility] Medical History (Updated 04/01/25 @ 14:27 by [...] 400 mg suspension, extended rel.intramuscular syringe (Ramon Barrazaa) 400 mg IM Q28D #1 ea 01/09/25 [...] psychotherapy Documented By: Blue Talbot MD 5 5713 Signed By: <Electronically signed by Blue Talbot MD> 04/01/25 8113 [facility] Work Phone: 1(990) 385-821706-07-2025 History and physical [place] [id number] Psychiatry H&P Signed Patient: Tracie Ramirez MR#: [id number] 4579 : 2000 Acct:[id number] Age/Sex: 25 / M Adm Date: 5 Loc: Room: [address] [place] [address] Type: ADM IN Attending Dr: Blue Talbot [...] any AVH or HI. Past psych history: Rtacie reports previously being diagnosed with depression with [...] outpatient appointments are scheduled prior to discharge. [facility] Medical History (Updated 06/07/25 @ 14:27 by Blue Talbot MD) Chronic [...] 400 mg suspension, extended rel.intramuscular syringe (Abiliyeyo Mainviveka) 400 mg IM Q28D #1 ea 01/09/25 [...] MD 5 1143 Signed By: 04/01/25 1429 [facility]03-13-2025 Evaluation note* Diagnosis Onset Date Resolution Status Admit Date Depression acuteMarch 2024 4:51pmDM (diabetes mellitus)acuteMarch 2024 4:51pm HyperlipidemiaacuteMarch 2024 4:51pmHypertriglyceridemiaacuteMarch 2024 4:51pmNoncomplianceacuteMarch 2024 4:51pmDepression with suicidal ideationresolvedMarch 2024 4:51pm [facility] Work Phone: 1(498) 432-220503-13-2025 Evaluation note* Diagnosis Onset Date Resolution Status Admit Date Depression acuteMarch 2024 4:51pmDM (diabetes mellitus)acuteMarch 2024 4:51pm HypertriglyceridemiaacuteMarch 2024 4:51pmNoncomplianceacuteMarch 2024 4:51pmDepression with suicidal ideationresolvedMarch 2024 4:51pm HyperlipidemiaresolvedMarch 2024 4:51pmBipolar disorderacuteJune 2024 12:58pmDiabetic polyneuropathyacuteJune 2024 12:58pmHypertriglyceridemia acuteJune 2024 12:58pmNoncomplianceacuteJune 2024 12:58pmUncontrolled diabetes mellitusacuteJune 2024 12:58pm [facility] Work Phone: 1(122) 538-582510-10-2024 Consult note Author Mauricio White [facility] August 04, 2024 9:47amNote Date/TimeOctober 2023 4:13pm[place] [address] Hospitalist Consult Note Signed Patient: Tracie Ramirez MR#: [id number] 4579 : 2000 Acct:[id number] Age/Sex: 24 / M Adm Date: 4 Loc: Room: [address] [place] [address] Type: ADM IN Attending Dr: Blue Talbot MD Copies to: MD Demetria Hastings APRN, LEAD CASTER HAILEE Dickens, DO~ HPI DATE OF CONSULTATION: [...] PCP would not prescribe further. Educated on im portance and medical follow-up and testing for health [...] negative unless noted below or in HPI [facility] Medical History Pancreatitis Hypertriglyceridemia PTSD (post-traumatic stress [...] Neut % (Auto) 59.5, Lymph % (Auto) 34.6,Tucker % (Auto) 4.6, Eos % (Auto) 0.7, Baso % (Auto) 0.6, Nucleat RBC Rel Count 0.3, Neut # (Auto) 5.1, Lymph # (Auto) 3.0, Tucker # (Auto) 0.4, Eos # (Auto) 0.1, Baso # (Auto) 0.1, Monocyte Dist Width 15.15, PHA Creatinine Clear 135.07, Sodium , Potassium , Chloride 98,Carbon Dioxide 27.8, Anion Gap TNP, BUN 14, Creatinine 1.02, Est GFR (CKD- EPI) >60.0, Glucose 206 H, Calcium 9.4, Total Bilirubin0.9, AST , ALT 16, Alkaline Phosphatase 43, [...] Amphetamines Screen Negative, U Benzodiazepines Scrn Negative, U rine Cocaine Screen Negative,U Marijuana (THC) Screen Negative, [...] imaging -Already prescribed tizanidine per his primary LABORATORY ADMINISTRATIVE DIRECTOR -Add 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 Type 2 diabetes-insulin, SSIC. Glucosuria noted and A1c in June was greater than 10. Will need to follow-up outpatient with PCP Depression -Further plan of care per inpatient psychiatric team for psychoactive medicationmanagement/dosing and psychotherapy Documented By: Rola Valdes APRN 07/19 1611 Signed By: <Electronically signed by HAILEE Valdes> 08/03/24 1639 <Electronically signed by Mauricio White DO> 08/04/24 0947 [facility] Work Phone: 1(686) 848-515010-10-2024 Progress note Author Blue guerrero [facility] August 04, 2024 8:38amNote Date/TimeOct2023 8:38[place] [id number] Psychiatry Progress Note Signed Patient: Tracie Ramirez MR#: [id number] 4579 : 2000 Acct:[id number] Age/Sex: 24 / M Adm Date: 4 Loc: 1S Room: [address] [place] [address] Type : ADM IN Attending Dr: Blue Talbot MD Copies to: ~ Date of Service: 08/04/2024 Subjective Subjective Narrative: Mr. aRmirez said he feeling better. He is trying to find proper aftercare plans. Patient stated that he has been going through several stressors. He was recentlylaid off and broke up with GF. He is working with his manager case on finding proper aftercare plans. MSE Appearance: grossly normal. Fair grooming and hygiene, anxious, minimal eye contact. Mental Status: mental status grossly normal Mood: ok Affect: Mood-congruent affect Speech and Movement: speech and movement normal. Regular rate, rhythm, volume, and tone. Non pressured. Attitude: cooperative Thought Process: normal Thought Content: Denies paranoid or delusional thoughts. Denied hallucinations, no homicidality anddenies suicidality. Does not appear to be responding [...] to get in treatment, response to treatment, adherenceto treatment recommendations, and using skills. The patient's verbal consent was provided. Documented By: Blue Talbot MD 4 0836 Signed By: <Electronically signed by Blue Talbot MD> 08/04/24 0838 [facility] Work Phone: 1(245) 333-217010-09-2024 Progress note Author Blue guerrero [facility] August 03, 2024 6:54amNote Date/TimeOctober 2023 6:51amDeborah Ville [id number] Psychiatry Progress Note Signed Patient: Tracie Ramirez MR#: [id number] 4579 : 2000 Acct:[id number] Age/Sex: 24 / M Adm Date: 4 Loc: 1S Room: 7R7443-3 Type : ADM IN Attending Dr: Blue [...] 8 out of 10 with 10 being theworst. He hasnot attended groups yet. MSE Appearance: grossly normal. Fair grooming and hygiene, anxious, minimal eye contact. Mental Status: mental status grossly normal Mood: depressed Affect: Mood-congruent affect Speech and Movement: speech and movement normal. Regular rate, rhythm, volume, and tone. Non pressured. Attitude: cooperative Thought Process: normal Thought Content: Denies paranoid or delusional thoughts. Denied hallucinations, no homicidality andreports suicidality. Does not appear to be responding [...] to get in treatment, response to treatment, adherenceto treatment recommendations, and using skills. The patient's verbal consent was provided. Documented By: Blue Talbot MD 4 0650 Signed By: <Electronically signed by Blue Talbot MD> 08/03/24 0654 [facility] Work Phone: 1(351) 922-829110-08-2024 History and physical note Author Blue guerrero [facility] August 02, 2024 6:45amNote Date/TimeOct2023 11:35[place] [address] Psychiatry H&P Signed Patient: Tracie Ramirez MR#: [id number] 4579 : 2000 Acct:[id number] Age/Sex: 24 / M Adm Date: 4 Loc: Room: [address] [place] [address] Type: ADM IN Attending Dr: Blue Talbot MD Copies to: MD Demetria Hastings APRN, LEAD CASTER~ Date of Service: 08/02/2024 HPI History of [...] never here. We have 1 note about [facility] Past suicide attempts: He endorses 1 [...] Denies TBI, seizure, memory loss. Denies numbness/tinglingin extremities HEENT: Denies vision/hearing changes. Pulmonary: Endorses [...] or delusional thoughts. Denied hallucinations, no homicidality andreports suicidality. Does not appear to be responding to internal stimuli. Insight: limited Judgment: limited [facility] Medical History PTSD (post-traumatic stress disorder) Borderline [...] Appearance Clear Urine pH 6.0 Ur Specific [place] 1.034 H Urine Protein 20 H Urine [...] to get in treatment, response to treatment, adherenceto treatment recommendations, and using skills. The patient's verbal consent was provided. Documented By: Blue Talbot MD 4 0600 Signed By: <Electronically signed by Blue Talbot MD> 08/02/24 0645 [facility] Work Phone: [phone]) 596-602207-01-2024 Hospital Discharge instructions Patient Education 04/25/2024 11:57:14 [...] require a prescription. You can also purchase bjuf-jsa-xmiqgqu medicines. Medicines may have nicotine in them [...] and encouragement. Call telephone quitlines, such as 1-186-JDQX-NOW, reach out to support groups, or work [...] provider. Document Revised: 10/03/2022 Document Reviewed: 10/03/2022 [email or web address] Patient Education 2022 [employer]. 04/25/2024 11:56:01 Vasectomy, Care After Vasectomy, Care [...] Follow these instructions at home: Medicines Take vjag-grh-ibylzuc and prescription medicines only as told by [...] provider. Document Revised: 02/28/2021 Document Reviewed: 02/28/2021 [employer] Patient Education 2022 Pruffi. 04/25/2024 11:56:01 Vasectomy Vasectomy Vasectomy is a [...] including vitamins, herbs, eye drops, creams, and zfdn-tmg-kstpgnz medicines. Any problems you or family members [...] provider tells you to take them. ?Taking vmyo-lgh-bfhvldc medicines, vitamins, herbs, and supplements. You may [...] provider. Document Revised: 02/28/2021 Document Reviewed: 02/28/2021 [employer] Patient Education 2022 Pruffi. Follow Up Care 12/07/2023 14:35:43 With:JORGE GALINDO, Joel Barber, URL Address: [facility] [address] , [place] [address]- [phone] When: Unknown Comments:sched vasectomy [facility] 02-09-2024 Evaluation note* Encounter Date Diagnosis Assessment [...] verbalizes understanding and agrees to treatment plan. Nov,Elevated triglycerides with high cholesterol (ICD-10 - E78.2)Lipid panel reviwed with patient. Dicsussed importance of [...] sweets. Encouraged increasing fiber in diet and eata diet rich in omega-3. Encouraged to exericse at least 150 minutes weekly. Barriers to plan of care have been addressed. Follow-up as directed. Patient given a copy of the plan of care. Nov,ecurrent major depressive disorder, in partial remission (ICD-10 - F33.41)Remains stable on current therapeutic dose. Patient is encouraged to stay active and remain involved. Try to keep themselves busy. Take medication as directed and we will continue to monitor. Nov,Other chronic pain (ICD-10 - G89.29)Discussed with pt to call [facility] office to see whom he was referred to so that he can get the follow-up MRI that he was going to have to see the extent of the knee damage and if he will need surgery. Pt verbalizes understanding. Nov,ain in left knee (ICD-10 - M25.562) Nov,Other specified diabetes mellitus with hyperglycemia (ICD-10 - E13.65)He is currently under the care of Dr. [...] to these goals have been discussed. You havebeen given educational handouts. Nov,Long term (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 (ICD-10 - Z79.4) [facility] Other 12-22-2023 Evaluation note* Encounter Date Diagnosis Assessment Notes Treatment Notes Treatment Clinical Notes Sep, Nonintractable episo dic headache, unspecified headache type (ICD-10 - R51.9) [...] with his PCP to restart these medications. [facility] Other 12-05-2022 Evaluation note* Encounter Date Diagnosis Assessment Notes Treatment Notes Treatment Clinical Notes Sep, Genital herpes simplex, unspecif ied site (ICD-10 - A60.00) Genital herpes home care material was printed Drink plenty fluids, get plenty of rest. No intercourse for 2 weeks. You will be notified of your test results in 5 to 7 days. Take the valacyclovir as prescribed until gone. Take the Zithromax and metronidazole tablets as prescribed. Always use condoms. Follow-up with your family physician for any further concern Sep,High risk sexual behavior, unspecified type (ICD-10 - Z72.51) Sep,therSexually transmitted infections material was printed [facility] Other evaluation + Plan note Future Appointments Appointment Date:05/27/2024 09:00:00 AM Scheduled Provider: Location:[facility] Appointment Type:Urology CALL PAT FT Appointment Date:05/31/2024 10:00:00 AM Scheduled Provider: Location:[facility] Appointment Type:Urology FT Appointment Date:06/13/2024 09:30:00 AM Scheduled Provider:Joel PATEL MD Location:[facility] Appointment Type:URO Office Visit [facility] evaluation noteNo assessment information available [facility] Work Phone: evalulnuas note* Diagnosis Onset Date Resolution Status Bronchitis acuteDM (diabetes mellitus)acute [facility] Work Phone: evaluation note* Diagnosis Onset Date Resolution Status Bronchitis acuteAcute adjustment disorder with anxietyacuteChronic back painacuteChronic pain of left kneeacuteDepressionacuteDM (diabetes mellitus)acuteHyperlipidemia acuteNeuropathyacuteCellulitis of neckacuteChronic back painacuteChronic pain of left kneeacute [facility] Work Phone: evaluation note* Diagnosis Onset Date Resolution Status DM (diabetes mellitus) acuteNeuropathyacute [facility] Work Phone: evaluation note* Diagnosis Onset Date Resolution Status Acute adjustment disorder with anxiety acuteADHDacuteChronic back painacuteDM (diabetes mellitus)acuteHyperlipidemia acuteNeuropathyacuteNoncomplianceacuteADHDacuteChronic back painacuteNeuropathy acuteNoncomplianceacute [facility] Work Phone: evaluation note* Diagnosis Onset Date Resolution Status Acute adjustment disorder with anxiety acuteADHDacuteChronic back painacuteDM (diabetes mellitus)acuteHyperlipidemia acuteNeuropathyacuteNoncomplianceacuteADHDacuteChronic back painacuteNeuropathy acuteNoncomplianceacuteChronic back painacuteDepression with suicidal ideation acuteDM (diabetes mellitus)acuteHypertriglyceridemiaacute [facility] Work Phone: Evaluation note* Diagnosis Onset Date Resolution Status Admit Date Depression acuteMarch 2024 4:51pm [facility] Work Phone: History general Narrative - Reported* Type Description Date Medical History DM (diabetes mellitus) [facility] Other Hisdjfv general Narrative - Reported* Type Description Date Medical History DM (diabetes mellitus) Medical HistoryArthritis [facility] Other Hospital course Narrative No data available for this section [facility] Hospital Discharge instructions No data available for this section [facility] Hospital Discharge instructionsAmbulatory Orders* Referral to Endocrinology Location: None [facility] Work Phone: Hospital Discharge instructions Additional Instructions Rest Avoid electronics Return here if any problems persist or [facility]sen[facility] Work Phone: Progress note No data available for this section [facility] Reason for Referral No Reason for Referral [...] Access - Establ ished with Fito Villalobos CNP 02/14/2020 Z68.41 - Body mass index (BM I) 40.0-44.9, adult Open Access - [facility] Findings Encounter Date Cannabis abuse - episodic Established Patient with Sofi Dorantes [facility] 02/14/2020 Mood disorders, NOS Established Patie nt with Sofi Dorantes [facility] 02/14/2020 Nicotine dependence Established Patie nt with Sofi Dorantes [facility] 02/14/2020 Post-traumatic stress disorder Establ ished Patient with Sofi Dorantes [facility] 02/14/2020 Diabetes Risk Test Score was four score 02/14/2020 Open Access [facility]/14/2020 F31.31 - Bipolar disorder, c urrent episode depressed, mild Open Access - [facility]/14/2020 M25.562 - Pain in left knee Open Access [facility] Morbid obesity Open Access - Establ ished [facility] 02/14/2020 Z68.41 - Body mass index (BM I) 40.0-44.9, adult Open Access - [facility] 02/14/2020 Diagnosis Left knee pain, unspecified chronicity [...] - 08/01/2020 9:58 PM EDT Discharged to [facility] via [facility]. All personal belongings given. * Kamille Rea RN - 08/01/2020 6:58 PM EDT Called [facility] at [phone]. Spoke with Gabriela to let her know that pt's COVID test was negative. They will contact [facility] for transport.Pt will be going to room 226-2. * Lluvia Jones RCP - 08/01/2020 6:15 PM EDT RAPID Covid 19 swab taken from right nare, labeled, placed in red dot bag, and handed off to [facility] outside of room for transport to laboratory per hospital policy and procedure. Patient tolerated procedure fairly well. * Lizzeth Patel MD - 08/01/2020 3:45 PM EDT Patient seen and examined in his room. No acute events overnight. Labs reviewed. Afebrile and hemodynamically stable. Patient medically cleared for transfer to [facility] Lizzeth Patel MD PGY-2, Internal Medicine Resident [facility] 08/01/2020 3:49 PM * Kamille Rea RN - 08/01/2020 3:[address] Anderson has a note in for patient. Note is in incomplete tab. Plan is to admit to inpatient psychiatric unit. Perfectserve sent to medical to review pt for clearance to transfer. * Del Rucker MD - 08/01/2020 7:48 AM EDT [facility] Internal Medicine Teaching Residency Program Inpatient Daily Progress Note Patient: Tracie Ramirez Date of : 2000 Acct: [id number] Room: [address] [place] [address] Admit date: 07/30/2020 Today's date: 08/01/20 Number [...] will see the pt at 5pm. 08/01/2020 [place] slipped Psychiatry consult today unable to see [...] resolved hospital problems. * Intentional medication overdose [place] slipped Serial EKG bradycardia to sinus rhythm. [...] Rucker MD Internal Medicine Resident, PGY- 1 [facility]; [place], [place] 08/01/2020, 7:48 AM Associated attestation - [...] is going to pink slip patient. Patricia LABORATORY ADMINISTRATIVE DIRECTOR sent acouple of messages in regards to resetting conference, whether video or by phone. * Kamille Rea RN - 07/31/2020 5:48 PM EDT Internet was down at consult appointment time for Psych. New time will be needed for tomorrow. Pt needs further resources from social work in regards to legal custody, social security. * Kailey Cantu, OT - 07/31/2020 3:43 PM EDT Occupational [...] 08/03/2020 at 11:00 am. This is through [facility]. The office number is [phone]. The fax number for the practice is [phone]. Information was provided by patient's mother. * Del Rucker MD - 07/31/2020 6:30 AM EDT [facility] Internal Medicine Teaching Residency Program Inpatient Daily Progress Note Patient: Tracie Ramirez Date of : 2000 Acct: [id number] Room: 0447/0447-01 Admit date: 07/30/2020 Today's date: [...] Rucker MD Internal Medicine Resident, PGY- 1 [facility]; [place], [place] 07/31/2020, 6:30 AM Associated attestation - [...] Lizzeth Patel MD PGY-2, Internal Medicine Resident [facility], [place] 07/31/2020 4:40 AM documented in this encounter Family History No Family History Records Found Description Last Updated migraines for mom 02/14/2020 Maternal history of type 2 diabetes johnathan itus 02/14/2020 Paternal history of hypertension 020 Medical HistoryRelationNameCommentsBipolar DisorderBrotherDepressionBrotherHeart DiseaseFatherBipolar DisorderMotherDepressionMotherRelationNameStatusComments BrotherAliveFatherAliveMotherAliveSisterAlive Relationship Condition Age at Onset Recorded Date/T teri father Hypertension Unknown Heart diseaseUnknown Review of System Review of Systems not [...] No Advanced Directives Records FoundDocuments on File TypeDate RecordedPatient RepresentativeExplanationAdvance Directives and Living WillPower of AttorneyTypeDate RecordedPatient RepresentativeExplanationAdvance Directives and Living WillPower of AttorneyCode StatusDate ActivatedDate InactivatedCommentsFull Code02/27/2020 12:09 AMTypeDate RecordedPatient RepresentativeExplanationACP-Advance DirectiveACP-Power of AttorneyCode Status Date ActivatedDate InactivatedCommentsFull Code08/01/2020 10:32 PMFull Code 07/30/2020 9:53 08/01/2020 10:30 PMFull Code02/27/2020 12:09 AM2020 3:10 PM TypeDate RecordedPatient RepresentativeExplanationACP-Advance DirectiveACP-Power of AttorneyCode StatusDate ActivatedDate InactivatedCommentsFull Code07/30/2020 9:53 PMFull Code02/27/2020 12:09 AM2020 3:10 PM Advance Directive Response Recorded Date/ [...] Complaint Amb Documentation cough, congestion Amb [facility] d/cReason for VisitBronchitis DM (diabetes mellitus) Chief Complaint Amb Documentation cough, congestion Amb Documentation [facility] d/c check upReason for VisitBronchitis Acute adjustment disorder with anxiety Chronic back pain Chronic pain of left knee Depression DM (diabetes mellitus) Hyperlipidemia Neuropathy Cellulitis of neck Chronic back pain Chronic pain of left knee Chief Complaint blood sugar/medicati on discussion Reason for Visit DM (diabetes mellitu s) Neuropathy Chief Complaint blood sugar/medicati on discussion 4 week f/uReason for VisitAcute adjustment disorder with anxiety ADHD Chronic back pain DM (diabetes mellitus) Hyperlipidemia Neuropathy Noncompliance ADHD Chronic back pain Neuropathy Noncompliance Chief Complaint blood sugar/medicati on discussion 4 week f/u Mental Health EvalReason for VisitAcute adjustment disorder with anxiety ADHD Chronic back pain DM (diabetes mellitus) Hyperlipidemia Neuropathy Noncompliance ADHD Chronic back pain Neuropathy Noncompliance Chief Complaint blood sugar/medicati on discussion 4 week f/u Mental Health Eval Mental Health EvalReason for VisitAcute adjustment disorder with anxiety ADHD Chronic back pain DM (diabetes mellitus) Hyperlipidemia Neuropathy Noncompliance ADHD Chronic back pain Neuropathy Noncompliance Chronic back pain Depression with suicidal ideation DM (diabetes mellitus) Hypertriglyceridemia Chief Complaint Admit Date SI January 05, 2025 4:5 1pm Reason for Visit Admit Date Depression January 05, 2025 4:5 1pm Chief Complaint Admit Date January 05, 2025 10: 13am SI January [...] 05, 2025 4:51pm Chief Complaint Admit Date January 05, 2025 10: 13am SI January [...] section and content) DATE CREATED AUTHOR 03/11/2020 [facility] DATE CREATED AUTHOR AUTHOR'S ORGANIZ ATION 08/14/2020 [facility] DATE CREATED AUTHOR AUTHOR'S ORGANIZ ATION 04/25/2022 [facility] DATE CREATED AUTHOR AUTHOR'S ORGANIZ ATION 02/02/2023 [facility] DATE CREATED AUTHOR AUTHOR'S ORGANIZ ATION 03/06/2023 [facility] DATE CREATED AUTHOR AUTHOR'S ORGANIZ ATION 12/01/2023 [facility] DATE CREATED AUTHOR AUTHOR'S ORGANIZ ATION 04/22/2025 [facility] DATE CREATED AUTHOR AUTHOR'S ORGANIZ ATION 05/03/2025 [facility] DATE CREATED AUTHOR AUTHOR'S ORGANIZ ATION 05/13/2025 [facility] DATE CREATED AUTHOR AUTHOR'S ORGANIZ ATION 05/29/2025 [facility] Reason for Visit (unrecogniz ed section and content) ReasonCommentsIngestionStatusReasonSpecialtyDiagnoses / ProceduresReferred By ContactReferred To Contact Diagnoses Suicide attempt by multiple drug overdose, initial encounter (HCC) Suicide attempt by multiple drug overdose, initial encounter (HCC) Marixa Degroot MD [address] [address] [facility] Care Teams (unrecognized sec tion and content) Team Status: Active Member Role Status Dates PHYSICIAN NO FAMILY Primary Care Provider Active Team Status: Inactive Member Role Status Dates PHYSICIAN NO FAMILY Primary Care Provider Active Start: January 05, 2025 End: January 09Olya Hernandez ProviderActiveStart: January 05, 2025 End: January 09lexquan Kaur , RNOther ProviderActiveStart: January 05, 2025 End: January 09, 2025Tiffanie Genao , RNOther ProviderActiveStart: January 05, 2025 End: January 09, 2025Mickin Leach , RNOther ProviderActiveStart: January 05, 2025 End: January 09, 2025Molisandro Nettles , RNOther ProviderActiveStart: January 05, 2025 End: January 09, 2025Alicia Rivas RNOther ProviderActiveStart: January 05, 2025 End: January 09, 2025Raluciano Beltran MDOther ProviderActiveStart: January 05, 2025 End: January 09, 2025Ronkasie Dillon , DOOther ProviderActiveStart: January 05, 2025 End: January 09, 2025Musjessi Vicente MDOther ProviderActiveStart: January 05, 2025 End: January 09, 2025Von Roberts , DOOther ProviderActiveStart: January 05, 2025 End: January 09ndbenita Govea MDOther ProviderActiveStart: January 05, 2025 End: January 09, 2025Sunshine Couch MDOther ProviderActiveStart: January 05, 2025 End: January 09, 2025Micced Alcazar DOOther ProviderActiveStart: January 05, 2025 End: January 09, 2025Ari Blackmon MDOther ProviderActiveStart: January 05, 2025 End: January 09, 2025LyDale Garciaher ProviderActiveStart: January 05, 2025 End: January 09, 2025Hang Capone ProviderActiveStart: January 05, 2025 End: January 09marla Menjivar MDOther ProviderActiveStart: January 05, 2025 End: January 09, 2025Hang Lewis ProviderActiveStart: January 05, 2025 End: January 09, 2025Hang Espinosa ProviderActiveStart: January 05, 2025 End: January 09, 2025Micced White , DOOther ProviderActiveStart: January 05, 2025 End: January 09, 2025Hang Ingram ProviderActiveStart: January 05, 2025 End: January 09, 2025EarHang Gale ProviderActiveStart: January 05, 2025 End: January 09jacey Montanez NP-COther ProviderActiveStart: January 05, 2025 End: January 09dbelkis Danielle APRNOther ProviderActiveStart: January 05, 2025 End: January 09, 2025Hang Diaz ProviderActiveStart: January 05, 2025 End: January 09, 2025NaeHang Canchola ProviderActiveStart: January 05, 2025 End: January 09, 2025RoHang Mcneil ProviderActiveStart: January 05, 2025 End: January 09, 2025Khgabino Weeks MDOther ProviderActiveStart: January 05, 2025 End: January 09noHang Avalos ProviderActiveStart: January 05, 2025 End: January 09, 2025Katie Cantu DOOther ProviderActiveStart: January 05, 2025 End: January 09, 2025Escobar Jones DOOther ProviderActiveStart: January 05, 2025 End: January 09, 2025Lindustin Garcia APRNOther ProviderActiveStart: January 05, 2025 End: January 09, 2025Manohar Carter DOOther ProviderActiveStart: January 05, 2025 End: January 09, 2025Dayan Perrin MDOther ProviderActiveStart: January 05, 2025 End: January 09, 2025Iza Finley APRNOt ProviderActiveStart: January 05, 2025 End: January 09emanuel Correa APRNOther ProviderActiveStart: January 05, 2025 End: January 09Hang Carbajal ProviderActiveStart: January 05, 2025 End: January 09, 2025Hudson Turner MDOther ProviderActiveStart: January 05, 2025 End: January 09, 2025Francisco Javier Lynne , DOOther ProviderActiveStart: January 05, 2025 End: January 09mariela Stilessein , DOOther ProviderActiveStart: January 05, 2025 End: January 09, 2025Hang Brooks ProviderActiveStart: January 05, 2025 End: January 09bobbi Ni MDOther ProviderActiveStart: January 05, 2025 End: January 09ruchi Vasquez APRNOther ProviderActiveStart: January 05, 2025 End: January 09, 2025Hang Plaza ProviderActiveStart: January 05, 2025 End: January 09ramin Wolfe MDOther ProviderActiveStart: January 05, 2025 End: January 09, 2025Emeka Cantor MDOther ProviderActiveStart: January 05, 2025 End: January 09, 2025Ari Hazel MDOther ProviderActiveStart: January 05, 2025 End: January 09, 2025Wale Beck MDOther ProviderActiveStart: January 05, 2025 End: January 09, 2025Nicolasa Cramer APRNOt ProviderActiveStart: January 05, 2025 End: January 09, 2025Alec Funes ProviderActiveStart: January 05, 2025 End: January 09, 2025Saloni Curiel RNOther ProviderActiveStart: January 05, 2025 End: January 09Peggy Dennis ProviderActiveStart: January 05, 2025 End: January 09Matthew Fierro ProviderActiveStart: January 05, 2025 End: January 09, 2025 Team Status: Active Member Role Status Dates PHYSICIAN NO FAMILY Primary Care Provider Active Start: January 06, 2025 Olya Silva ProviderActiveStart: January 06, 2025 Matthew Hastings Provider, Attending Provider, Other Provider ActiveStart: January 06, 2025 Yane Kaur , ANGELOOther ProviderActiveStart: January 06, 2025 Tiffanie Genao , ANGELOOther ProviderActiveStart: January 06, 2025 Ria Leach , ANGELOOther ProviderActiveStart: January 06, 2025 Latasha Nettles , ANGELOOther ProviderActiveStart: January 06, 2025 Alicia Rivas , ANGELOOther ProviderActiveStart: January 06, 2025 Juan M Beltran MDOther ProviderActiveStart: January 06, 2025 Amber Dillon , DOOther ProviderActiveStart: January 06, 2025 Delano Vicente MDOther ProviderActiveStart: January 06, 2025 Von Roberts , DOOther ProviderActiveStart: January 06, 2025 Flex Govea MDOther ProviderActiveStart: January 06, 2025 Sunshine Couch MDOther ProviderActiveStart: January 06, 2025 Mauricio Alcazar DOOther ProviderActiveStart: January 06, 2025 Ari Blackmon MDOther ProviderActiveStart: January 06, 2025 Rola Valdes , APRNOther ProviderActiveStart: January 06, 2025 Aryan Santos MDOther ProviderActiveStart: January 06, 2025 Victor Hugo Menjivar MDOther ProviderActiveStart: January 06, 2025 Helen Hernandez MDOther ProviderActiveStart: January 06, 2025 Leti Tucker MDOther ProviderActiveStart: January 06, 2025 Mauricio White DOOther ProviderActiveStart: January 06, 2025 Nubia Dhaliwal MDOther ProviderActiveStart: January 06, 2025 Panchito Ferro MDOther ProviderActiveStart: January 06, 2025 Gabriela Montanez LABORATORY ADMINISTRATIVE DIRECTOR-COther ProviderActiveStart: January 06, 2025 Veronica Danielle , APRNOther ProviderActiveStart: January 06, 2025 Ramesh Garcia MDOther ProviderActiveStart: January 06, 2025 Oz Carrillo MDOther ProviderActiveStart: January 06, 2025 Salty Pena MDOther ProviderActiveStart: January 06, 2025 Adry Weeks MDOther ProviderActiveStart: January 06, 2025 Tony Wayne MDOther ProviderActiveStart: January 06, 2025 Katie Cantu , DOOther ProviderActiveStart: January 06, 2025 Escobar Jones , DOOther ProviderActiveStart: January 06, 2025 Lynnette Garcia , APRNOther ProviderActiveStart: January 06, 2025 Manohar Carter , DOOther ProviderActiveStart: January 06, 2025 Dayan Perrin MDOther ProviderActiveStart: January 06, 2025 Iza Finley , APRNOther ProviderActiveStart: January 06, 2025 Hanna Correa , APRNOther ProviderActiveStart: January 06, 2025 Wilfred Moreno MDOther ProviderActiveStart: January 06, 2025 Hudson Turner MDOther ProviderActiveStart: January 06, 2025 Francisco Javier Lynne , DOOther ProviderActiveStart: January 06, 2025 Karrie Dean , DOOther ProviderActiveStart: January 06, 2025 Darius Pena MDOther ProviderActiveStart: January 06, 2025 Blair Ni MDOther ProviderActiveStart: January 06, 2025 Mesha Vasquez , APRNOther ProviderActiveStart: January 06, 2025 Xiomy Rocha MDOther ProviderActiveStart: January 06, 2025 Sam Wolfe MDOther ProviderActiveStart: January 06, 2025 Emeka Cantor MDOther ProviderActiveStart: January 06, 2025 Ari Hazel MDOther ProviderActiveStart: January 06, 2025 Wale Beck MDOther ProviderActiveStart: January 06, 2025 Nicolasa Cramer , APRNOther ProviderActiveStart: January 06, 2025 Nathaniel Garcia , APRNOther ProviderActiveStart: January 06, 2025 Saloni Curiel RNOther ProviderActiveStart: January 06, 2025 Team Status: Inactive Member Role Status Dates Services [facility] Primary Care Provider Ac tive Start: February 17, 2025 End: February 17Olya Hernandez ProviderActiveStart: February 17, 2025 End: February 17, 2025 Team Status: Inactive Member Role Status Dates Kris Gross MD Attending Provider Active St art: March 31, 2025 End: March 31, 2025 Team Status: Active Member Role Status Dates Demetria Cifuentes APRN LABORATORY ADMINISTRATIVE DIRECTOR-C Primary Care Provider Active Start: March 31, 2025 Katarina Hastingsending ProviderActiveStart: March 31, 2025 Team Status: Inactive Member Role Status Dates PHYSICIAN [facility] Primary Care Provider Active Start: March 31, 2025 End: April 05bdMatthew Ordonez Provider, Attending Provider ActiveStart: March 31, 2025 End: April 05lexquan Kaur RNOther ProviderActiveStart: March 31, 2025 End: April 05, 2025Desol Genao RNOther ProviderActiveStart: March 31, 2025 End: April 05, 2025Mickin Leach RNOther ProviderActiveStart: March 31, 2025 End: April 05, 2025Molisandro Nettles RNOther ProviderActiveStart: March 31, 2025 End: April 05, 2025Alicia Rivas RNOther ProviderActiveStart: March 31, 2025 End: April 05, 2025Annamarie Whitten RNOther ProviderActiveStart: March 31, 2025 End: April 05, 2025Raluciano Beltran MDOther ProviderActiveStart: March 31, 2025 End: April 05, 2025Ronkasie Dillon DOOther ProviderActiveStart: March 31, 2025 End: April 05, 2025Musjessi Vicente MDOther ProviderActiveStart: March 31, 2025 End: April 05, 2025Von Roberts DOOther ProviderActiveStart: March 31, 2025 End: April 05ndbenita Govea MDOther ProviderActiveStart: March 31, 2025 End: April 05, 2025Hang Almanza ProviderActiveStart: March 31, 2025 End: April 05, 2025MicRosemarie Mckinney ProviderActiveStart: March 31, 2025 End: April 05, 2025Hang Alexander ProviderActiveStart: March 31, 2025 End: April 05, 2025Rola Valdes APRNOther ProviderActiveStart: March 31, 2025 End: April 05, 2025Aryan Santos MDOther ProviderActiveStart: March 31, 2025 End: April 05marla Menjivar MDOther ProviderActiveStart: March 31, 2025 End: April 05, 2025Hang Lewis ProviderActiveStart: March 31, 2025 End: April 05, 2025Safuad Tucker MDOther ProviderActiveStart: March 31, 2025 End: April 05, 2025Micced White DOOther ProviderActiveStart: March 31, 2025 End: April 05, 2025Hang Ingram ProviderActiveStart: March 31, 2025 End: April 05, 2025Panchito Ferro MDOther ProviderActiveStart: March 31, 2025 End: April 05jacey Montanez NP-COther ProviderActiveStart: March 31, 2025 End: April 05dDale Diazher ProviderActiveStart: March 31, 2025 End: April 05, 2025Ramesh Garcia MDOther ProviderActiveStart: March 31, 2025 End: April 05, 2025Oz Carrillo MDOther ProviderActiveStart: March 31, 2025 End: April 05, 2025Hang Thapa ProviderActiveStart: March 31, 2025 End: April 05, 2025Hang Cullen ProviderActiveStart: March 31, 2025 End: April 05Hang Weinberg ProviderActiveStart: March 31, 2025 End: April 05, 2025Katie Cantu DOOther ProviderActiveStart: March 31, 2025 End: April 05, 2025Escobar Jones , DOOther ProviderActiveStart: March 31, 2025 End: April 05, 2025Lynnette Garcia , APRNOther ProviderActiveStart: March 31, 2025 End: April 05, 2025Manohar Carter , DOOther ProviderActiveStart: March 31, 2025 End: April 05, 2025Dayan Perrin MDOther ProviderActiveStart: March 31, 2025 End: April 05, 2025Parichard Finley APRNOther ProviderActiveStart: March 31, 2025 End: April 05emanuel Correa , APRNOther ProviderActiveStart: March 31, 2025 End: April 05kaila Moreno MDOther ProviderActiveStart: March 31, 2025 End: April 05, 2025Dalashawn Turner MDOther ProviderActiveStart: March 31, 2025 End: April 05, 2025Francisco Javier Lynne , DOOther ProviderActiveStart: March 31, 2025 End: April 05azfredrick Dean , DOOther ProviderActiveStart: March 31, 2025 End: April 05, 2025Darius Pena MDOther ProviderActiveStart: March 31, 2025 End: April 05bobbi Ni MDOther ProviderActiveStart: March 31, 2025 End: April 05ruchi Vasquez , APRNOther ProviderActiveStart: March 31, 2025 End: April 05, 2025Xiomy Rocha MDOther ProviderActiveStart: March 31, 2025 End: April 05ramin Wolfe MDOther ProviderActiveStart: March 31, 2025 End: April 05, 2025Emeka Cantor MDOther ProviderActiveStart: March 31, 2025 End: April 05, 2025Ari Hazel MDOther ProviderActiveStart: March 31, 2025 End: April 05, 2025Wale Beck MDOther ProviderActiveStart: March 31, 2025 End: April 05, 2025Kayla R. Hukill , APRNOther ProviderActiveStart: March 31, 2025 End: April 05, 2025Nathaniel Garcia , APRNOther ProviderActiveStart: March 31, 2025 End: April 05, 2025Saloni Curiel , RNOther ProviderActiveStart: March 31, 2025 End: April 05, 2025 Team Status: Active Member Role Status Dates PHYSICIAN NO FAMILY Primary Care Provider Active Start: April 01, 2025 Blue Talbot MDAjeanna Provider, Attending Provider, Other Provider ActiveStart: April 01, 2025 Yane Kaur , RNOther ProviderActiveStart: April 01, 2025 Tiffanie Genao , ANGELOOther ProviderActiveStart: April 01, 2025 Ria Leach , ANGELOOther ProviderActiveStart: April 01, 2025 Latasha Nettles , RNOther ProviderActiveStart: April 01, 2025 Alicia Rivas RNOther ProviderActiveStart: April 01, 2025 Annamarie Whitten , ANGELOOther ProviderActiveStart: April 01, 2025 Juan M Beltran MDOther ProviderActiveStart: April 01, 2025 Amber Dillon , DOOther ProviderActiveStart: April 01, 2025 Delano Vicente MDOther ProviderActiveStart: April 01, 2025 Von Roberts DOOther ProviderActiveStart: April 01, 2025 Flex Govea MDOther ProviderActiveStart: April 01, 2025 Sunshine Couch MDOther ProviderActiveStart: April 01, 2025 Mauricio Alcazar DOOther ProviderActiveStart: April 01, 2025 Ari Blackmon MDOther ProviderActiveStart: April 01, 2025 Rola Valdes , APRNOther ProviderActiveStart: April 01, 2025 Aryan Santos MDOther ProviderActiveStart: April 01, 2025 Victor Hugo Menjivar MDOther ProviderActiveStart: April 01, 2025 Helen Hernandez MDOther ProviderActiveStart: April 01, 2025 Leti Tucker MDOther ProviderActiveStart: April 01, 2025 Mauricio White DOOther ProviderActiveStart: April 01, 2025 Nubia Dhaliwal MDOther ProviderActiveStart: April 01, 2025 Panchito Ferro MDOther ProviderActiveStart: April 01, 2025 Gabriela Montanez LABORATORY ADMINISTRATIVE DIRECTOR-COther ProviderActiveStart: April 01, 2025 Veronica Danielle , APRNOther ProviderActiveStart: April 01, 2025 Ramesh Garcia MDOther ProviderActiveStart: April 01, 2025 Oz Carrillo MDOther ProviderActiveStart: April 01, 2025 Salty Pena MDOther ProviderActiveStart: April 01, 2025 Adry Weeks MDOther ProviderActiveStart: April 01, 2025 Tony Wayne MDOther ProviderActiveStart: April 01, 2025 Katie Cantu , DOOther ProviderActiveStart: April 01, 2025 Escobar Jones , DOOther ProviderActiveStart: April 01, 2025 Lynnette Garcia , APRNOther ProviderActiveStart: April 01, 2025 Manohar Carter , DOOther ProviderActiveStart: April 01, 2025 Dayan Perrin MDOther ProviderActiveStart: April 01, 2025 Iza Finley , APRNOther ProviderActiveStart: April 01, 2025 Hanna Correa , APRNOther ProviderActiveStart: April 01, 2025 Wilfred Moreno MDOther ProviderActiveStart: April 01, 2025 Hudson Turner MDOther ProviderActiveStart: April 01, 2025 Francisco Javier Lynne , DOOther ProviderActiveStart: April 01, 2025 Karrie Dean , DOOther ProviderActiveStart: April 01, 2025 Darius Pena MDOther ProviderActiveStart: April 01, 2025 Blair Ni MDOther ProviderActiveStart: April 01, 2025 Mesha Vasquez , APRNOther ProviderActiveStart: April 01, 2025 Xiomy Rocha MDOther ProviderActiveStart: April 01, 2025 Sam Wolfe MDOther ProviderActiveStart: April 01, 2025 Emeka Cantor MDOther ProviderActiveStart: April 01, 2025 Ari Hazel MDOther ProviderActiveStart: April 01, 2025 Wale Beck MDOther ProviderActiveStart: April 01, 2025 Nicolasa Cramer , APRNOther ProviderActiveStart: April 01, 2025 Nathaniel Garcia , APRNOther ProviderActiveStart: April 01, 2025 José Garcia ProviderActiveStart: April 01, 2025 Team Status: Inactive Member Role Status Dates Shaikh Swapnil MD Attending Provider Active Team Status: Inactive Member Role Status Dates NON STAFF Attending Provider Active Team Status: Inactive Member Role Status Dates Lynn Olivas LABORATORY ADMINISTRATIVE DIRECTOR-C Attending Provider Active Team Status: Active Member Role Status Dates Demetria Cifuentes APRN LABORATORY ADMINISTRATIVE DIRECTOR-C Primary Care Provider Active Team Status: Inactive Member Role Status Dates Lynn Olivas LABORATORY ADMINISTRATIVE DIRECTOR-C Attending Provider Active S tart: October 16, 2023 End: October 16, 2023 Team Status: Active Member Role Status Dates PHYSICIAN NO FAMILY Primary Care Provider Active Start: December 08, 2023 Carolina Capone ProviderActiveStart: December 08, 2023 Team Status: Inactive Member Role Status Dates Demetria Cifuentes APRN LABORATORY ADMINISTRATIVE DIRECTOR-C Primary Care Provider Active Start: December 112023 End: December 11OLIVA McqueenCAttencurtis ProviderActiveStart: December 11, 2023 End: December 11, 2023 Team Status: Active Member Role Status Dates PHYSICIAN NO FAMILY Primary Care Provider Active Start: December 08, 2023 Carolina Gill LPNAtpam ProviderActiveStart: December 08, 2023 Team Status: Active Member Role Status Dates Demetria Cifuentes APRN LABORATORY ADMINISTRATIVE DIRECTOR-C Primary Care Provider Active Start: December 222023 VICTORIANO MarlowAAtpam ProviderActiveStart: December 22, 2023 Team Status: Inactive Member Role Status Dates Demetria Cifuentes APRN LABORATORY ADMINISTRATIVE DIRECTOR-C Primary Care Provider, Attending Provider Active Start: February 15, 2024 End: February 15, 2024 Team Status: Inactive Member Role Status Dates Demetria Cifuentes APRN LABORATORY ADMINISTRATIVE DIRECTOR-C Primary Care Provider, Attending Provider Active Start: March 03, 2024 End: March 03, 2024 Team Status: Inactive Member Role Status Dates Demetria Cifuentes APRN LABORATORY ADMINISTRATIVE DIRECTOR-C Primary Care Provider, Attending Provider Active Start: June 29, 2024 End: June 29, 2024 Team Status: Inactive Member Role Status Dates Demetria Cifuentes APRN LABORATORY ADMINISTRATIVE DIRECTOR-C Primary Care Provider, Attending Provider Active Start: July 27, 2024 End: July 27, 2024 Team Status: Active Member Role Status Dates Demetria Cifuentes APRN LABORATORY ADMINISTRATIVE DIRECTOR-C Primary Care Provider Active Start: August 01, 2024 Anastacio Zhu ProviderActiveStart: August 01, 2024 Matthew Hastings Provider, Attending ProviderActiveStart: August 01, 2024 Team Status: Inactive Member Role Status Dates Demetria Cifuentes APRN LABORATORY ADMINISTRATIVE DIRECTOR-C Primary Care Provider Active Start: August 01, 2024 End: August 04lexAnastacio Willis ProviderActiveStart: August 01, 2024 End: August 04Matthew Fierro Provider, Attending ProviderActiveStart: August 01, 2024 End: August 04lexquan Kaur RNOther ProviderActiveStart: August 01, 2024 End: August 04angelito Genao RNOther ProviderActiveStart: August 01, 2024 End: August 04, 2024Mickin Leach RNOther ProviderActiveStart: August 01, 2024 End: August 04, 2024Molisandro Nettles RNOther ProviderActiveStart: August 01, 2024 End: August 04, 2024Alicia Rivas RNOther ProviderActiveStart: August 01, 2024 End: August 04krystal Dillon DOOther ProviderActiveStart: August 01, 2024 End: August 04, 2024Musjessi Vicente MDOther ProviderActiveStart: August 01, 2024 End: August 04, 2024Von Roberts DOOther ProviderActiveStart: August 01, 2024 End: August 04ulises Govea MDOther ProviderActiveStart: August 01, 2024 End: August 04ania Couch MDOther ProviderActiveStart: August 01, 2024 End: August 04, 2024Ari Blackmon MDOther ProviderActiveStart: August 01, 2024 End: August 04, 2024Dale Armandoher ProviderActiveStart: August 01, 2024 End: August 04, 2024Hang Capone ProviderActiveStart: August 01, 2024 End: August 04Hang Elkins ProviderActiveStart: August 01, 2024 End: August 04, 2024Hang Lewis ProviderActiveStart: August 01, 2024 End: August 04, 2024SaHang Riojas ProviderActiveStart: August 01, 2024 End: August 04, 2024MicRosemarie Cruz ProviderActiveStart: August 01, 2024 End: August 04, 2024Hang Ingram ProviderActiveStart: August 01, 2024 End: August 04, 2024Earshelly Ferro MDOther ProviderActiveStart: August 01, 2024 End: August 04Jesús Meyersher ProviderActiveStart: August 01, 2024 End: August 04dbelkis Danielle APRNOther ProviderActiveStart: August 01, 2024 End: August 04, 2024Hang Diaz ProviderActiveStart: August 01, 2024 End: August 04, 2024Hang Cabrera ProviderActiveStart: August 01, 2024 End: August 04ohHang Parham ProviderActiveStart: August 01, 2024 End: August 04, 2024KhHang Montoya ProviderActiveStart: August 01, 2024 End: August 04Hang Weinberg ProviderActiveStart: August 01, 2024 End: August 04, 2024Rosemarie Obrien ProviderActiveStart: August 01, 2024 End: August 04, 2024Escobar Jones DOOther ProviderActiveStart: August 01, 2024 End: August 04, 2024Lynnette Garcia APRNOther ProviderActiveStart: August 01, 2024 End: August 04, 2024Rosemarie Hurd ProviderActiveStart: August 01, 2024 End: August 04, 2024Dayan Perrin MDOther ProviderActiveStart: August 01, 2024 End: August 04debra Finley APRNOt ProviderActiveStart: August 01, 2024 End: August 04emanuel Correa , APRNOther ProviderActiveStart: August 01, 2024 End: August 04Hang Carbajal ProviderActiveStart: August 01, 2024 End: August 04connie Turner MDOther ProviderActiveStart: August 01, 2024 End: August 04, 2024Francisco Javier Lynne , DOOther ProviderActiveStart: August 01, 2024 End: August 04, 2024Karrie Dean , DOOther ProviderActiveStart: August 01, 2024 End: August 04, 2024Hang Brooks ProviderActiveStart: August 01, 2024 End: August 04bobbi Ni MDOther ProviderActiveStart: August 01, 2024 End: August 04ruchi Vasquez APRNOther ProviderActiveStart: August 01, 2024 End: August 04, 2024Xiomy Rocha MDOther ProviderActiveStart: August 01, 2024 End: August 04ramin Wolfe MDOther ProviderActiveStart: August 01, 2024 End: August 04, 2024Saloni Curiel RNOther ProviderActiveStart: August 01, 2024 End: August 04, 2024 Team Status: Active Member Role Status Dates Demetria Cifuentes APRN LABORATORY ADMINISTRATIVE DIRECTOR-C Primary Care Provider Active Start: August 02, 2024 Anastacio Zhu ProviderActiveStart: August 02, 2024 Matthew Hastings Provider, Attending Provider, Other Provider ActiveStart: August 02, 2024 Team Status: Active Member Role Status Dates PHYSICIAN NO FAMILY Primary Care Provider Active Start: January 05, 2025 Olya Silva ProviderActiveStart: January 05, 2025 Matthew Hastings Provider, Attending ProviderActiveStart: January 05, 2025 Team Status: Active Member Role Status Dates [facility] Primary Care Provider Ac tive Team Status: Active Member Role Status Dates Demetria Cifuentes APRN LABORATORY ADMINISTRATIVE DIRECTOR-C Primary Care Provider Active Start: January 05, 2025 Peggy Hastings ProviderActiveStart: January 05, 2025 Team Status: Active Member Role Status Dates PHYSICIAN NO FAMILY Primary Care Provider Active Start: March 31, 2025 Matthew Hastings Provider, Attending ProviderActiveStart: March 31, 2025 Goals (unrecognized section and [...] BE BASED ON THE PRIMARY CLINICAL RECORDS. [employer] provides no warranty or guarantee of the accuracy or completeness of information in this document.
[2025-09-26 22:57] LABS: Alanine Aminotransferase 16 U/L (16-63); Albumin Globulin Ratio 1.2; Albumin Level 3.6 g/dL (3.4-5.0); Alkaline Phosphatase 50 U/L (46-116); Anion Gap 10.4; Blood Urea Nitrogen 15.0 mg/dL (7.0-18.0); Calcium 8.6 mg/dL (8.5-10.1); Carbon Dioxide 27.8 mmol/L (21.0-32.0); Chloride 103 mmol/L (98-107); Estimated GFR (African America >60 (>=60 mL/min/1.73m^2); Estimated GFR (Non-African Ame >60 (>=60 mL/min/1.73m^2); Globulin 2.9 g/dL; Glucose 286 mg/dL (74-106); Lipase 38.0 U/L (16.0-77.0); Potassium 4.2 mmol/L (3.5-5.1); Sodium 137 mmol/L (136-145); Total Protein 6.5 g/dL (6.4-8.2)
[2025-09-26 23:16] LABS: Aspartate Amino Transferase 17 U/L (15-37)
== END 2025-09-27 00:28 | disposition home or self-care (01) ==
PROVIDERS: Emergency Provider Internal Medicine
DX: R07.9 Chest pain, unspecified (principal); R73.9 Hyperglycemia, unspecified
CPT/HCPCS: 36415; 71045; 80053; 83690; 84484; 85025; 85378; 93005; 99285

== ENCOUNTER 2025-09-27 20:58 | Emergency (ER) | payer MEDICAID, SELFPAY ==
--- OUTSIDE RECORDS SUMMARY | 2025-01-04 04:02 | XMS_ITS | Continuity of Care Document ---
Author Organization [facility] Address [address] [place] [address] Phone Care Team Providers Care Web Content Specialist Name Role Phone Jules Ramirez DO Unavailable [...] 130 MM HG MED LIST DOCD IN [facility] RVW MEDS BY RX/DR IN [facility] OFFICE/OUTPATIENT VISIT, NEW DIAST BP 80-89 MM HG SYST BP < 130 MM HG PT TOBACCO USE DONE RCVD TLK ROUTINE VENIPUNCTURE High Risk Prophylaxis Adult Nutrit Couns For Control Of [place] Dis Aug Oral Hygiene Instruction Intraoral-complete Series (bw) Comp Oral Eval New/estab Patient 2023 Oral Hygiene Instruction Advance Directives Directive Yes / No Effective Date File Name No Information Encounters Encounter Description Practice Location Reason(s) For Visit Diagnoses Date Provider Providers Copied on Encounter [facility], [address] [place] [address], [id number] , tel:+ [phone] [facility] No Information 5 Plank DO Jules. [address] [place] [address], [id number] , [place]. tel: [phone] [facility], [address] [place] [address], [id number] , [place] tel: [phone] [facility] No Information 4 Plank DO Jules. [address] [place] [address], [id number] , [place]. tel:[phone] OFFICE/OUTPAT IENT VISIT, EST [facility], [address] [place] [address], [id number] , [place] tel: [phone] [facility] f/u DM (chief complaint) depression f/u (chief complaint) Depression, unspecifiedMixed hyperlipidemiaType 2 diabetes mellitus with hyperglycemiaBody mass index [BMI] 39.0-39.9, adult 4 Plank DO Jules. [address] [place] [address], [id number] , [place]. tel: [phone] OFFICE/OUTPAT IENT VISIT, [facility], [address] [place] [address], [id number] , tel: [phone] [facility] Establish Care (chief complaint) Lab Draw (chief complaint) Body mass index [BMI] 39.0-39.9, adultMixed hyperlipidemiaType 2 diabetes mellitus with diabetic dermatitisScreening for HIV (human immunodeficiency virus)Need for hepatitis B screening test 4 James Camacho. [address] [place] [address], [id number] , [place]. tel:[phone] [facility], [address] [place] [address], [id number] , [place] tel: [phone] [facility] Clinic [place] (chief complaint) Encounter for screening for dental disorders 4 Riley Perry. [address] [place], [place], [id number] , [place]. tel:[phone] [facility], [address] [place] [address], [id number] , [place] tel:+ [phone] Dental Clinic dn (chief complaint) Encounter for screening for dental disorders 4 Riley Perry. [address] [place] [address], [id number] , [place]. tel:+ [phone] Family History Family Member Type Diagnosis Age [...] ry Payers Payer name Insurance type Covered democrat ID Authoriza tion(s) Hum[employer] Medicaid [facility] [id number] [id number] Medicaid [facility] [id number] D Humana Medicaid Dentaquest [facility] [id number] [id number] D Medicaid Wrap - [facility] [place] [id number] Social History Type Description Quantity Date Captured Comments Alcohol Use Details Unknown Caffeine Use Details Unknown Tobacco Use Status Smoking Status No Information Sex Male Sexual Orientation Straight or heterosexual Aug Gender Identity Male Chief Complaint And Reason For Visit No Information Reason For Referral Reason For Referral No Information Plan Of Treatment Date Type Action Status Goal PRAPARE ASSESSMENT. Due on due Goal Tdap. Due on due Goal RLP. Due on due Goal Influenza vaccine. Due on due Goal Hepatitis C screening. Due o n due Goal Lipid panel. Due on due Goal Urine microalbumin. Due on due Goal ASCVD 10 year risk. Due on due Goal Dilated eye exam. Due on Dec due Goal Foot exam. Due on due Goal Pneumococcal vaccine. Due on due Goal Hep B (1st). Due on due Goal Dental exam. Due on due Goal Hemoglobin A1C. Due on due Goal Tdap Vaccine. Due on 2024 due Goal Unhealthy drug use screening . [...] eye exam. Due on Sep due Goal Foot exam. Due on due Goal Urine microalbumin. Due on due Goal Pneumococcal vaccine. Due on due Goal ASCVD 10 year risk. Due on due Goal Dental exam. Due on due Goal Hemoglobin A1C. Due on due Goal Hep B (). Due on due Goal RLP. Due on due Goal PRAPARE ASSESSMENT. Due on due Goal Hep A. Due on du e Goal Hepatitis C screening. Due o n due Goal Unhealthy drug use screening . Due on due Goal Tdap. Due on due Goal Influenza vaccine. Due on due Goal Depression screening. Due on due Goal Tdap Vaccine. Due on 2023 due Goal Lifestyle education regardin g diet completed Goal Tobacco cessation counseling completed Goal ASCVD 10 year risk. Due [...] Lifestyle education regardin g diet completed Goal Tobacco cessation counseling completed Goal Hep A. Due on du e Goal PRAPARE ASSESSMENT. Due on N due Goal Depression screening. Due on due Goal Tdap. Due on due Goal Unhealthy drug use screening . Due on due Goal RLP. Due on due Goal Influenza vaccine. Due on No due Goal Tdap Vaccine. Due on 2023 due Goal Hepatitis C screening. Due o n due Goal Influenza vaccine. Due on No [...] eye doctor. Requesting to go to [facility]. He does c/o blurred vision. [...] to establish care. Patient recently moved from [place]. Patient hasn't seen a PCP in roughly [...] Information Instructions Date Instruction Additional Infor johnny Lifestyle education regarding di et Related to [...]
[2025-09-27 21:04] VITALS: BP 150/97; PULSE 103; TEMP 36.8; O2SAT 100; BMI 35.0
[2025-09-27] MEDS: ARIPIPRAZOLE 5 MG TABLET PO (22:15)
--- OUTSIDE RECORDS SUMMARY | 2025-09-27 22:19 | XMS_ITS | Clinical Summary ---
Author Organization [facility] Address [address] [place] [address] Care Team Providers Care Firepot Operator And Tender Name Role Phone Unallocated, [facility] Provider Primary [...] Blood Gluc Sensor (FreeStyle Viktor 3 Sensor) [facility] Indications:Type 2 diabetes mellitus with hyperglycemia, with long-term current use of insulin (HCC)Inject 1 Device under the skin every 14 (fourteen) days 6 each ctive Continuous Blood Gluc Affiliate Marketing Manager (FreeStyle Viktor 3 [place]) device Indications:Type 2 diabetes mellitus with hyperglycemia, with long-term current use of insulin ([facility])1 Device See administration instructions 1 each 12/29/2023ctive Blood Glucose Monitoring Suppl ([employer]) w/Device kit Indications:Type 2 diabetes mellitus with hyperglycemia, with long-term current use of insulin ([facility])fsbs 1 kit 12/29/2023ctive Active Problems ProblemNoted DateDiagnosed DateHyperosmolar (nonketotic) coma12/29/2023 Wnpupuecejbjasngegzi81/05/2024Type 2 diabetes mellitus with hyperglycemia, with long-term current use of qypbmbx1711/30/2023 Assessment & Plan (12/30/2023 8:53 PM EST): [...] without complication, with long-term current use of fyvvphu5905/25/2023 Assessment & Plan (11/30/2023 9:27 PM EST): [...] DateResolved DateHyperglycemia due to type 2 diabetes [id number] Family History Medical HistoryRelationNameCommentsDiabetesFather's SisterDiabetesMaternal GrandmotherDiabetesMotherDiabetesMother's BrotherDiabetesMother's [...] drinks on one occasion?Never05/25/2023HQ-2AnswerDate RecordedPatient Health Questionnaire-2 [id number] and Gender InformationValueDate RecordedSex Assigned at BirthNot on fileLegal RheUjcd7903/13/2023 3:06 PM EDTGender IdentityNot on file Sexual OrientationNot on file Last Filed Vital Signs Vital SignReadingTime TakenCommentsBlood Jxrpblod666/8812/29/2023 3:49 PM EST Egxko780112/29/2023 3:49 PM JPLPjzjafmwleg83 ??C (96.8 ??F)12/29/2023 3:49 PM EST Respiratory Rate--Oxygen Agvszfjlkl11%12/29/2023 3:49 PM ESTInhaled Oxygen Concentration--Edpjdf542 kg (247 lb 6.4 oz)12/29/2023 3:49 PM SBEMozkuu181.7 cm (5' 8 )12/29/2023 3:49 PM ESTBody Mass Index37.62012/29/2023 3:49 PM EST Plan of Treatment Health MaintenanceDue DateLast DoneCommentsDiabetes: Retinopathy Screening 2011Pneumococcal Vaccine: Pediatrics (0 to 5 Years) and At-Risk Patients (6 to 64 Years) (1 of 2 - PCV)2020Diabetes: Hemoglobin A1C02/28/2024 11/30/2023iabetes: Urine Protein Mekskfzxd22/06/166672/OVID-19 Vaccine ( season)/, 06/04/2021Influenza Vaccine (#1) 2025 Procedures Procedure NamePriorityDate/TimeAssociated DiagnosisCommentsMICROALBUMIN / CREATININE URINE ARLGMNdqahrj99/06/2024 9:39 AM EST Depression, unspecified depression type Anxiety Type 2 diabetes mellitus without complication, without long-term current use of insulin (HCC) POCT GLYCOSYLATED HEMOGLOBIN (HGB A1C)Teetvzc5011/30/2023 4:28 PM EST Type 2 diabetes mellitus without complication, without long-term current use of insulin ([facility]) from Last 3 Months or Most Recently Relevant to Health Maintenance Results * (ABNORMAL) Microalbumin / creatinine urine ratio (12/01/2023 9:39 AM EST) ComponentValueRef RangeTest MethodAnalysis TimePerformed AtPathologist SignatureCREATININE, RANDOM [id number] - 320 mg/dLQUESTALBUMIN, URINE9.5See Note: mg/dLQUESTComment: Reference [...] specimen obtained by clean catch procedure / Jjcmzym2412/01/2023 9:39 AM EST12/01/2023 9:39 AM EST Narrative [facility] - 12/02/2023 11:58 AM EST FASTING:YES FASTING: YES Resulting Agency Comment Performing Organization Information ?Site ID: [id number] ?Name: [facility] ?Address: [address] [place] [address], [address] [place] [id number] ?Director: Allan Walker MD Authorizing ProviderResult TypeResult StatusDiane Aguilar ITZEL URINE ORDERABLES Final ResultPerforming OrganizationAddressCity/State/ZIP CodePhone Number [facility] * (ABNORMAL) POCT glycosylated hemoglobin (Hb A1C) docked device (11/30/2023 4:28 PM EST)ComponentValueRef RangeTest MethodAnalysis TimePerformed At Pathologist SignatureHemoglobin A1C11.0Specimen (Source)Anatomical Location / LateralityCollection Method / VolumeCollection TimeReceived TimeBloodVenous blood specimen / Xrhxszy1011/30/2023 4:28 PM EST Narrative Authorizing ProviderResult TypeResult StatusJoseline Tee DOPOINT OF CARE TEST ENTER/EDIT ORDERABLESFinal Result from Last 3 Months or Most Recently Relevant to Health Maintenance Insurance Care Teams Team MemberRelationshipSpecialtyStart DateEnd Date Unallocated, Noms MD [address] [place] [address] PCP - GeneralFamily Medicine12/29/23
--- NOTE | 2025-09-27 22:27 | ED.PSYCH1 ---
HPI - Psych General Chief Complaint: Psychiatric Symptoms Stated Complaint: Altered Mental Status Time Seen by Provider: 09/27/25 21:43 Source: Reports patient Mode of arrival: walk-in Limitations: Reports no limitations History of Present Illness HPI Narrative: This 25-year-old male with a history of schizophrenia presents for evaluation and request psychiatric medication. The patient states that he is on injectable Abilify through a counseling center in [place]. He has not had an injection for the past 6 weeks because he does not have a vehicle or a way to get to [place]. The patient states that during the summer months he was riding his bike there. He has intermittent visual hallucinations and occasionally hears voices. He denies that he is suicidal or homicidal. He states that he is self-medicating to some degree with marijuana which does make him more paranoid but helps him relax and alcohol to a certain extent. He did go to an AA meeting earlier today because he recognizes that he does not want to start drinking and attempt to self-medicate his schizophrenia. He states prior to today he had been clean from alcohol for an extended period of time. The patient lives with his girlfriend. His girlfriend's friend gave him a ride to the hospital tonight and dropped him off. Related Data Home Medications ?Medication ?Instructions ?Recorded ?Confirmed No Known Home Medications 09/27/25 09/27/25 Allergies Allergy/AdvReac Type Severity Reaction Status Date / Time No Known Drug Allergies Allergy Verified 09/27/25 21:08 Review of Systems ROS Status of ROS 10 or more systems reviewed and unremarkable except as noted in history and below [facility] Medical History (Updated 09/27/25 @ 22:27 by Adriana Santana MD) Borderline personality disorder ?F60.3 - Borderline personality disorder (ICD-10) Hypertension ?I10 - Essential (primary) hypertension (ICD-10) Social History Little interest or pleasure in doing things: not at all Feeling down, depressed, or hopeless: not at all Exam Narrative Exam Narrative: Vital signs and Nursing Notes reviewed: Patient is afebrile, mildly tachycardic with a pulse of 103, blood pressure is elevated 150/97, he is not hypoxic with pulse ox of 100% on room air General: Awake, alert, oriented, ambulatory in the room, talking on the phone and reading a Bible, no respiratory distress HEENT: Normocephalic atraumatic, mucous membranes are moist and pink, eyes are clear, normal conjunctiva, vision is grossly intact Chest: Lungs are clear to auscultation with good air entry, there is no wheezing rhonchi or rales appreciated no accessory muscle use, patient is speaking in complete sentences-no chest wall tenderness to palpation CVS: Regular rate and rhythm S1-S2, no murmurs rubs or gallops, pulses are brisk and equal bilaterally ABD: Soft, nondistended, nontender, no rebound guarding or rigidity, bowel sounds are normal, no pulsatile masses appreciated Extremities: Moving all extremities, no lower extremity tenderness or swelling noted Skin: Normal in appearance without rash,pallor, petechiae or purpura Neuro: No focal deficits Psych: Admits to visual and auditory hallucinations, denies suicidal ideation or homicidal ideation, does not appear to be responding to internal stimuli, thought process is rational, patient does not exhibit any rapid pressured speech or bizarre behavior Constitutional Vital Signs, click to edit/add: Last Vital Signs Temp 98.3 F 09/27/25 21:04 Pulse 103 H 09/27/25 21:04 Resp 18 09/27/25 21:04 BP 150/97 H 09/27/25 21:04 Pulse Ox 100 09/27/25 21:04 O2 Del Method Room Air 09/27/25 21:04 Course Vital Signs Vital signs: Vital Signs Temperature 98.3 F 09/27/25 21:04 Pulse Rate 103 H 09/27/25 21:04 Respiratory Rate 18 09/27/25 21:04 Blood Pressure 150/97 H 09/27/25 21:04 Pulse Oximetry 100 09/27/25 21:04 Oxygen Delivery Method Room Air 09/27/25 21:04 Temperature 98.3 F 09/27/25 21:04 Pulse Rate 103 H 09/27/25 21:04 Respiratory Rate 18 09/27/25 21:04 Blood Pressure 150/97 H 09/27/25 21:04 Pulse Oximetry 100 09/27/25 21:04 Oxygen Delivery Method Room Air 09/27/25 21:04 MDM - Psych MDM Narrative Medical decision making narrative: This 25-year-old male with a history of schizophrenia who has been recently treated at an outpatient facility in [facility] [place] where he has been receiving Abilify injections the last 1 of which was approximately 6 weeks ago presents for evaluation of recurrent hallucinations consistent with his schizophrenia. He is calm, cooperative, he has a coherent thought process. He lives with his girlfriend. Neither he nor his girlfriend have a vehicle at this time and he was dropped off by a friend of his girlfriends. I explained to him that I do not have an Abilify injection that I can administer to him but he was given 1 dose of oral Abilify. We did reach out to [facility] for follow-up for him. They will call him tomorrow and set up an appointment for him either at the [place] office or locally here in [facility]. He was agreeable to this plan. I did not feel that he required an in person evaluation by mental health at this time, there was no indication for pink slipping him or for emergent psychiatric hospitalization. Discharge Plan Discharge Chief Complaint: Psychiatric Symptoms Clinical Impression: Medication requested, Chronic schizophrenia Patient Disposition: Home, Self-Care Time of Disposition Decision: 22:26 Condition: Good Prescriptions / Home Meds: No Action No Known Home Medications Print Language: Sami Instructions: Schizophrenia (ED), Psychiatric Hallucinations (ED) Additional Instructions: [facility] counseling center should call you tomorrow to set up an outpatient appointment. Please follow-up with them as recommended. Return to the emergency department as needed for worsening symptoms, suicidal or homicidal ideation or any concerns. Referrals: Physician,Non-Staff, MD [Primary Care Provider] - 1 week Discharge Date/Time: 09/27/25 22:32
--- OUTSIDE RECORDS SUMMARY | 2025-09-27 22:33 | XMS_ITS | CCD ---
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 Name Role Phone Fito Villalobos Primary Care Provider Fito Villalobos Primary Care Provider FITO VILLALOBOS Referring Unavailable LILIA FITO Primary Care Unavailable LILIA FITO Referring Unavailable LILIA FITO Primary Care Unavailable LILIA FITO Primary Care Unavailable THUMMALAPALLY, RUSHEETH Admitting Unavaila ble THUMMALAPALLY, RUSHEETH Attending Unavaila gail Villalobos Fito Primary Care Provider [phone] LILIA FITO Primary Care Unavailable DEGROOT, MARIXA Consulting Unavailable DEGROOT, MARIXA Admitting Unavailable JEAN PIERRE BARTON Attending Unavailable [facility] Primary Care Unavailable JAMES, YOLANDA Consulting [...] Unavailable RADHA Davey, DR DEE Consulting Unavailable BLOOMINGTON, DR CÉSAR Metzger Consulting Unavailable CAYETANO SMITH Consulting Unavailable SHAIKH Joyce KRAFT Consulting Unavailable SISTER, ADRI Consulting Unavailable DIAB ., TELMA Consulting Unavailable RASTEGAR, BRIGITTE Consulting Unavailable WAN ANGEL Attending Unavailable FANNY SOTO Referring Unavailable JOSELINE MOJICA Attending Unavailable FANNY SOTO Referring Unavailable Demetria Cifuentes Unavailable HAILEE Cifuentes Primary Care Provider DO Yane Briscoe Emergency Provider [phone] MD Blue Talbot Admit Provider MD Blue Talbot Attending Provider ANGELO Kaur Other Provider Unavailable ANGELO Genao Other Provider Unavailable ANGELO Leach Other Provider Unavailable ANGELO Nettels Other Provider Unavailable ANGELO Rivas Other Provider [...] Provider MD Blair Ni Other Provider [phone] HAILEE Vasquez Other Provider [phone] MD Xiomy Rocha Other Provider MD Sam Wolfe Other Provider Veena, ANGELO Guallpa Other Provider Unavailable NO FAMILY, PHYSICIAN Primary Care Provider Unava ilable Guillermina Shetty APRN Emergency Provider Blue Talbot MD Admit Provider Antione GALINDO, Blue Attending Provider [phone] Demetria Cifuentes APRN Primary Care Provider Antione GALINDO, Blue Attending Provider Natasha STEPHENS, Yane Other Provider Unavailable Birgit RN, Tiffanie Other Provider Unavailable Haylee RN, Ria Other Provider Unavailable Tho RN, Latasha Other Provider Unavailable Rob RN, Alicia Other Provider Unavailable Juan M Beltran MD Other Provider Amber Dillon DO Other Provider [phone] Delano Vicente MD Other Provider Von [...] Provider Panchito Ferro MD Other Provider Tarik TOBACCO DRIER OPERATOR-C, Gabriela Cardona Other Provider Veronica Danielle APRN [...] Other Provider Nicolasa Cramer APRN Other Provider [phone] Nathaniel Garcia APRN Other Provider Saloni Curiel RN Other Provider Unavailable Ceferino Edwards MD Attending Provider [facility] ider Kris Gross MD Attending Provider Demetria Cifuentes APRN Primary Care Provider Blue Talbot MD Attending Provider [phone] Fish STEPHENS, Annamarie Other Provider Unavailable Olegario [...] Cantu Consulting Unavailable Escobar Jones Consulting Unavailable Lynntete Garcia Consulting Unavailable Manohar Carter Consulting Unavailable [...] Consulting Unavailable Manohar Carter Consulting Unavailable AbneromaDayan abrber Consulting Unavailable Iza Finley Consulting Unavailable Hanna [...] Beck Consulting Unavailable Nicolasa Cramer Consulting Unavailable Bolivnod-Cleo Nicolettcarmela Consulting Unavaila Saloni Coleman Consulting Unavailable Guillermina Shetty Admitting Unavailable Guillermina Shetty Attending Unavailable [facility] Kris [...] (1 source)Adhesive TapePropensity to adverse reactions to [id number] (1 source)No Known Medication Allergies; 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: [No Known Medication Allergies]Propensity to adverse reactions (disorder)[facility] Repository (1 source)ADHESIVE TAPE-SILICONES; 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: [ADHESIVE TAPE-SILICONES] Propensity to adverse reactions to drug (disorder)97-03-4104DltHpcpno Repository Medications Current Medications MedicationDrug Class(es)DatesSig (Normalized)Sig (Original)Acetaminophen (1 source)Start: 65-34-5787vegbqinptfuin (TYLENOL) tablet 650 mgatorvastatin 40 mg oral tablet (3 sources)HMG-CoA Reductase InhibitorStart: 96-18-5400pwcv 1 tablet by mouth once dailyatorvastatin (LIPITOR) 40 MG tablet Take 1 tablet by mouth daily 30 tablet 3 08/01/2020 ActiveBlood Sugar Diagnostic (3 sources)Start: 99-14-2078Bwcqw Sugar Diagnostic Active 0 .Route 100 June 29, 2024 12:00am to test blood sugar 5 times dailyBlood-Glucose Meter (3 sources)Start: 04-29-1962Ubhna-Glucose Meter Active 0 .Route June 29, 2024 12:00am to test blood sugar daily24 hr buPROPion hydrochloride 300 mg extended release oral tablet (20 sources)AminoketoneStart: 44-18-8009ceNFPXlet 300 mg/24 hours ER Tab Refills(s) 0 Start Date: 04/25/24 Status: OrderedStart: 02-15-2024 End: 37-10-7096ghyu 1 tablet by mouth once daily in the morningBupropion Hcl (Wellbutrin Xl) 300 mg tablet extended release 24 hr Discontinued 300 MG PO Every morning February 15, 2024 12:00am June 29, 2024 11:14amStart: 12-08-2023 End: 90-78-9606xlty 1 tablet by mouth once daily in the morningBupropion Hcl 150 mg tablet extended release 24 hr Discontinued 150 MG PO Every morning 2023 4:12pm February 15, 2024 11:03ambusPIRone hydrochloride 5 mg oral tablet (20 sources)Start: 03-31-2025 End: 63-41-1885kigj 1 tablet by mouth twice dailyBuspirone 5 mg tablet Active 5 MG PO Twice daily 60 April 05, 2025 1:26pmStart: 02-15-2024 End: 29-72-2263uclu 1 tablet by mouth three times dailyBuspirone 15 mg tablet Discontinued 15 MG PO Three times daily February 15, 2024 12:00am July 27, 2024 4:06pmStart: 12-04-2023 End: 47-00-6269czuf 1 tablet by mouth twice dailyBuspirone 5 mg tablet Discontinued 5 MG PO Twice daily December 08, 2023 1:00am February 15, 2024 1 1:03amciprofloxacin 500 mg oral tablet (1 source)Quinolone AntimicrobialStart: 04-25-2024 End: 09-15-9289ppof 1 tablet by mouth twice daily at mealtimeCipro 500 mg Tab 500 mg = 1 tab(s), Oral, BID, start with first meal after procedure, X 5 day(s), #10 tab(s), Refills(s) 0, Pharmacy: [facility]/pharmacy #[id number], 174, cm, 04/25/24 11:22:00 EDT, Height/Length Dosing, 113.5, kg, 04/25/24 11:22:00 EDT, Weight Dosing Start Date: 04/25/24 Stop Date: 04/30/24 Status: OrdereddiazePAM 10 mg oral tablet (2 sources)BenzodiazepineStart: 06-28-6838hyrs 1 tablet by mouth once daily Valium 10 mg Tab 10 mg = 1 tab(s), Oral, Daily, take 30 minutes prior to procedure, # 1 tab(s), Refills(s) 0, Pharmacy: [facility]/pharmacy #[id number], 174, cm, 04/25/24 11:22:00 EDT, Height/Length Dosing, 113.5, kg, 04/25/24 11:22:00 EDT, Weight Dosing Start Date: 04/25/24 Status: Ordered0.3 ml enoxaparin sodium 100 mg/ml prefilled syringe (1 source)Low Molecular Weight HeparinStart: 18-79-3319xygizhmawa (LOVENOX) injection 30 mgescitalopram 20 mg oral tablet (15 sources)Serotonin Reuptake InhibitorStart: 84-32-6309gvry 1 tablet by mouth once daily in the morningEscitalopram Oxalate 20 mg Tablet Active 20 MG PO Every morning 30 April 05, 2025 12:00amStart: 03-31-2025 End: 22-44-8855mzaw 2 tablets by mouth once daily in the morningEscitalopram Oxalate 10 mg Tablet Discontinued 20 MG PO Every morning March 31, 2025 12:00am April 05, 2025 1:57pmStart: 01-09-2025 End: 20-73-6285Casjbyydcmmq Oxalate 10 mg Tablet Discontinued 15 MG PO Every morning 45 January 09, 2025 12:00am March 31, 2025 1:18pmStart: 01-05-2025 End: 70-94-2550pbdv 1 tablet by mouth once daily in the morningEscitalopram Oxalate 10 mg Tablet Discontinued 10 MG PO Every morning January 05, 2025 12:00am January 09, 2025 1:04pmStart: 08-04-2024 End: 62-22-0192Pixiakgipcfu Oxalate 10 mg Tablet Discontinued 15 MG PO Every morning 45 August 04, 2024 12:00am January 05, 2025 6:20pmStart: 94-17-8238qioh 15 mg by mouth once daily in the morningEscitalopram Oxalate Active 15 MG PO Every morning 45 August 04, 2024 12:00amfamotidine 20 mg oral tablet (3 sources)Histamine-2 Receptor AntagonistStart: 45-42-7740pspy 1 tablet by mouth twice dailyfamotidine (PEPCID) 20 MG tablet Take 1 tablet by mouth 2 times daily 60 tablet 3 08/01/2020 Activefenofibrate 48 mg oral tablet (20 sources)Peroxisome Proliferator Receptor alpha AgonistStart: 04-01-2025 Fenofibrate Nanocrystallized 48 mg Tablet Active 192 MG PO Daily April 01, 2025 12:00amStart: 08-01-2024 End: 69-89-7599kkcj 1 tablet by mouth once dailyFenofibrate Nanocrystallized 145 mg tablet Discontinued 145 MG PO Daily August 04, 2024 9:13am August 09, 2024 11:42amStart: 38-08-0185kvmwjywfiti 145 mg Tab Refills(s) 0 Start Date: 04/25/24 Status: OrderedStart: 02-15-2024 End: 77-82-5095axyt 1 tablet by mouth once dailyFenofibrate 160 mg tablet Discontinued 160 MG PO Daily February 15, 2024 12:00am March 09, 2024 11:57am Start: 12-08-2023 End: 15-39-0282xibs 1 tablet by mouth once dailyFenofibrate Nanocrystallized 145 mg tablet Discontinued 145 MG PO Daily 90 90 December 08, 2023 3:54pm February 15, 2024 11:05amtake 1 tablet by mouth every twenty-four hoursFenofibrate 160 MG 1 tablet Orally Once a day for 30 days Activeglucagon (rdna) 1 mg injection (1 source)Antihypoglycemic AgentStart: 61-77-6642vaxc 1 mL intravenous route every hour1 mg, Intramuscular, PRN, Low blood sugar, Blood glucose less than 70 mg/dL and patient NOT ALERT or NPO and does not have IV access., Starting 07/30/20 at 2152 After administration, attempt intravenous access and start D5W at 100 mL/hr. Repeat blood glucose in 15 minutes x2 and notify provider.1000 ml glucose 500 mg/ml injection (3 sources)Start: 32-12-697980 g, Oral, PRN, Low blood sugar, Starting [...] glucose in15 minutes x2 and notify provider.Start: 97-28-100580.5 g, Intravenous, PRN, Low blood sugar, Blood [...] using Glucostabilizer, dose as instructed per system.Start: 07-02-1333194 mL/hr, Intravenous, at 100 mL/hr, PRN, Low blood sugar, Starting 07/30/20 at 2152 Start infusion following administration of dextrose 50% or glucagon.hydrOXYzine hydrochloride 50 mg oral tablet (5 sources)AntihistamineStart: 2020 End: 01-95-2976bdde 1 tablet by mouth three times daily as needed for anxiety hydrOXYzine (ATARAX) 50 MG tablet Take 1 tablet by mouth 3 times daily as needed for Anxiety 45 tablet 0 2020 03/16/2020 Activetake 1 capsule by mouth four times daily as neededhydrOXYzine (VISTARIL) 50 MG capsule Take 50 mg by mouth 4 times daily as needed for Itching 0 Active End: 61-80-8296DFKTFHFYAEE HCL PO Take by mouth 0 08/01/2020 Discontinued (Stop Taking at Discharge)3 ml insulin glargine 100 unt/ml pen injector (11 sources)Insulin AnalogStart: 09-80-2110Xximauv Glargine (Lantus Solostar U- 100 Insulin) 100 unit/mL (3 mL) Insulin Pen Active 20 UNIT SUBCUT Daily 6 30 April 05, 2025 12:00amStart: 18-13-0872Hgachqk Glargine (Lantus Solostar U-100 Insulin) 100 unit/mL (3 mL) insulin pen Active 35 UNIT SUBCUT Every evening January 05, 2025 12:00amStart: 06-29-2024 End: 55-21-8815Wwfeidh Glargine (Lantus Solostar U-100 Insulin) 100 unit/mL (3 mL) insulin pen Discontinued 36 UNIT SUBCUT Every evening 10.8 30 June 29, 2024 2:21pm January 05, 2025 6:39pm3 ml insulin lispro 100 unt/ml cartridge (7 sources)Insulin AnalogStart: 13-49-4290Hgfabjg Lispro (Humalog U-100 Insulin) 100 unit/mL cartridge Active 0 sliding scale dose SUBCUT As Directed March 31, 2025 12:00am Please contact the information source for Protocol details.Start: 78-70-4159Vvkkabz Lispro KwikPen 100 units/mL injectable solution Refills(s) [...] Insulin) 100 unit/mL insulin pen (18 sources)Start: 36-51-8977Yhzeqze Lispro (Humalog Kwikpen Insulin) 100 unit/mL insulin pen Active 12 UNIT SUBCUT THREE TIMES DAILY WITH MEALS June 29, 2024 11:22amStart: 26-38-2520Cqanidy Lispro (Humalog Kwikpen Insulin) 100 unit/mL insulin pen Active 1 sliding scale dose SUBCUTUse as Directed June 29, 2024 11:22am 12 units with each meal 150-200 - 3 units 200-330 - 6 units 330-399 - 9 units > 400 - 12 unitsStart: 12-08-2023 End: 50-52-6992Xpfjqaw Lispro (Humalog Kwikpen Insulin) 100 unit/mL insulin pen Discontinued 1 sliding scale dose SUBCUT Use as Directed December 08, 2023 1:00am June 29, 2024 11:23amStart: 99-94-9080Kzijmfu Lispro (Humalog Kwikpen Insulin) 100 unit/mL insulin pen Active 1 sliding scale dose SUBCUTUse as Directed December 08, 2023 1:00amStart: 24-00-0811Yqdszxn Lispro (Humalog Kwikpen Insulin) 100 unit/mL insulin pen Active 1 sliding scale dose SUBCUTUse as Directed December 08, 2023 12:00amlamoTRIgine 25 mg oral tablet (16 sources)Mood Stabilizer, Anti-epileptic AgentStart: 08-04-2024 End: 76-75-9870mdpw 1 tablet by mouth twice dailyLamotrigine 25 mg Tablet Active 25 MG PO Twice daily April 05, 2025 1:26pmStart: 74-22-4682VpBFNbyd 25 MG Oral Tablet 02/14/2020 Provider: Fito Villalobos CNPlisinopril 2.5 mg oral tablet (1 source)Angiotensin Converting Enzyme InhibitorStart: 50-61-5613cgzc 1 tablet by mouth once dailyLisinopril 2.5 mg Tablet Active 2.5 MG PO Daily 30 April 05, 2025 12:00ammeloxicam 7.5 mg oral tablet (3 sources)Nonsteroidal Anti-inflammatory DrugStart: 81-46-4289Mvcil 7.5 MG Oral Tablet 02/14/2020 Provider: Fito Villalobos CNPnicotine 2 mg chewing gum (2 sources)Cholinergic Nicotinic AgonistStart: 45-63-7303Pvkqjval (Polacrilex) 2 mg Gum Active 4 MG BUCCAL Q2H as needed for Nicotine Cravings March 12:00amStart: 40-27-3206akrxcunw polacrilex (NICORETTE) gum 2 mgpolyethylene glycol 3350 05790 mg powder for oral solution (1 source)Osmotic LaxativeStart: g, Oral, DAILY PRN, Constipation, Starting 07/30/20 at 2152 First line therapy for constipationprazosin 2 mg oral capsule (20 sources)alpha-Adrenergic BlockerStart: 03-31-2025 End: 51-16-6405dhoz 1 capsule by mouth at bedtimePrazosin 2 mg capsule Active 2 MG PO Bedtime 30 April 05, 2025 1:26pmStart: 01-05-2025 End: 11-34-5816zbdf 1 capsule by mouth at bedtimePrazosin 2 mg capsule Discontinued 2 MG PO Bedtime January 05, 2025 12:00am January 05, 2025 6:39pm Start: 03-03-2024 End: 40-45-0488mczw 2 mg by mouth once daily at bedtimePrazosin Discontinued 2 MG PO Daily at bedtime March 03, 2024 1:11pm July 27, 2024 4:07pmStart: 02-15-2024 End: 42-74-3276prtx 1 capsule by mouth once daily at bedtimePrazosin 1 mg capsule Discontinued 2 MG PO Daily at bedtime March 03, 2024 1:11pm July 27, 2024 4:07pmPromethazine (1 source)PhenothiazineStart: 18-98-9314yvbkohwiuljq (PHENERGAN) tablet 12.5 mg sertraline 50 mg oral tablet (1 source)Serotonin Reuptake InhibitorStart: 60-81-1187nlol 1 tablet by mouth once dailysertraline (ZOLOFT) 50 MG tablet Take 1 tablet by mouth daily 30 tablet 3 08/06/2020 ActiveStart: 66-95-5181ssjj 1 tablet by mouth once daily sertraline (ZOLOFT) 50 MG tablet Take 1 tablet by mouth daily 30 tablet 3 08/06/2020 Kifovw9713 ml sodium chloride 9 mg/ml injection (4 sources)Start: 82-57-805829 mL, Intravenous, EVERY 12 HOURS SCHEDULED (2 times per day), First dose on 07/30/20 at 2200Start: 89-56-1383byiw 10 mL intravenous route once as qcjqmu32 mL, Intravenous, PRN, Line Care, After every IV line use, Starting Thu07/30/20 at 2152Start: 07-30-2020 End: 01-43-0188Ixllwspngdu, at 75 mL/hr, CONTINUOUS, Starting Thu07/30/20 at 2200traZODone hydrochloride 150 mg oral tablet (11 sources)Serotonin Reuptake InhibitorStart: 01-05-2025 End: 84-34-7882gyiy 1 tablet by mouth at bedtimeTrazodone 150 mg tablet Active 150 MG PO Bedtime April 05, 2025 1:26pmStart: 86-95-6915fpfa 1 tablet by mouth once daily as needed for sleeptraZODone (DESYREL) 50 MG tablet Take 1 tablet by mouth nightly as needed for Sleep 30 tablet 0 2020 Active Completed/Discontinued Medications MedicationDrug Class(es)DatesSig (Normalized)Sig (Original)[id number] 200 actuat albuterol 0.09 mg/actuat metered dose inhaler (10 sources)beta2-Adrenergic AgonistStart: 12-11-2023 End: 18-42-0633ejsn 1 puff(s) by inhalation four times daily as needed for wheezingAlbuterol Sulfate 90 mcg/actuation HFA aerosol inhaler Discontinued 2 PUFF INHALATION Four times daily as needed for shortness of breath or wheezing 8.5 December 11, 2023 1:00am July 27, 2024 4:05pmARIPiprazole 400 mg extended release prefilled syringe (13 sources)Atypical AntipsychoticStart: 01-09-2025 End: 72-42-1515kong 1 tablet by mouth once dailyAripiprazole 5 mg Tablet Discontinued 5 MG PO Daily January 09, 2025 12:00am March 31, 2025 1:17pm Start: 01-09-2025 End: 80-90-0249Imxuvrxzkyra (Abilify Maintena) 400 mg Suspension,Extended Rel Syring Discontinued 400 MG IM Q28D 1M2024 12:00am April 05, 2025 1:57pmStart: 2020 End: 17-64-4759tpld 1 tablet by mouth once dailyARIPiprazole (ABILIFY) 2 MG tablet Take 1 tablet by mouth daily 30 tablet 0 2020 07/31/2020 Di scontinued (LIST CLEANUP) End: 08-68-7046bmus 1 tablet by mouth once dailyARIPiprazole (ABILIFY) 10 MG tablet Take 10 mg by mouth daily 0 08/05/2020 Discontinued (Stop Taking at Discharge) End: 61-40-2520rjza 1 tablet by mouth once dailyARIPiprazole (ABILIFY) 5 MG tablet Take 5 mg by mouth daily 0 08/01/2020 Discontinued (Stop Taking at Discharge)atomoxetine 40 mg oral capsule (17 sources)Norepinephrine Reuptake InhibitorStart: 07-27-2024 End: 37-23-5985emau 1 capsule by mouth once dailyAtomoxetine 40 mg capsule Discontinued 40 MG PO Daily July 27, 2024 4:12pm January 05, 2025 6:21pmStart: 06-29-2024 End: 40-76-8084uzhv 1 capsule by mouth once dailyAtomoxetine (Strattera) 25 mg capsule Discontinued 25 MG PO Daily June 29, 2024 12:00amJuly 27, 2024 4:13pmStart: 92-59-3869xamjcevtepa 40 mg Cap Refills(s) 0 Start Date: 04/25/24 Status: Orderedazithromycin 250 mg oral tablet (12 sources)Macrolide AntimicrobialStart: 12-11-2023 End: 30-05-2997cyzn 2 tablets by mouth once daily, then take 1 tablet by mouth once dailyAzithromycin (Zithromax Z-Maximino) 250 mg tablet Discontinued 250 MG PO Daily 03 30December 11, 2023 1:00am February 15, 2024 10:58am take 2 tabs today and 1 daily for the next 4 daysStart: 38-47-4560apuc 2 tablets by mouth once at mealtimeAzithromycin 600 MG 2 tablets Orally once for 1 days Take 2 tablets p.o. with food on Sep, Not-Taking/PRNbenzonatate 200 mg oral capsule (10 sources)Non-narcotic AntitussiveStart: 12-11-2023 End: 92-81-8004Hxmpmkevbts 200 mg capsule Discontinued 200 MG PO 2-3 TIMES PER DAY as needed for cough 2023 1:00am February 15, 2024 10:58am Blood-Glucose Meter kit (4 sources)Start: 06-29-2024 End: 92-88-6815Ltmok-Glucose Meter kit Discontinued 0 .Route June 29, 2024 12:00am April 05, 2025 1:57pm to test blood sugar dailyStart: 06-29-2024 Blood-Glucose Meter kit Active 0 .Route 1 June 29, 2024 12:00am to test blood sugar dailycefTRIAXone (3 sources)Cephalosporin AntibacterialStart: 17-53-3589Vnjivwig 500 mg Sep, 500 mgcephalexin 500 mg oral capsule (9 sources)Cephalosporin AntibacterialStart: 03-03-2024 End: 18-60-0219cuaf 1 capsule by mouth twice dailyCephalexin 500 mg capsule Discontinued 500 MG PO Twice daily 14 March 03, 2024 12:00am June 29, 2024 10:40amcinnamon bark 500 mg oral capsule (10 sources)Start: 02-15-2024 End: 32-78-0718ltkg 1 capsule by mouth once dailyCinnamon Bark (Cinnamon) 500 mg capsule Discontinued 1000 MG PO Daily February 15, 2024 12:00am July 27, 2024 4:06pmDULoxetine 30 mg delayed release oral capsule (3 sources)Serotonin and Norepinephrine Reuptake InhibitorStart: 2020 End: 38-05-8942bmhw 3 capsules by mouth once dailyDULoxetine (CYMBALTA) 30 MG extended release capsule Take 3 capsules by mouth daily 90 capsule 0 2020 08/05/2020 Discontinued (Stop Taking at Discharge)etodolac 400 mg oral tablet (9 sources)Nonsteroidal Anti-inflammatory DrugStart: 03-03-2024 End: 49-75-7492ahkx 1 tablet by mouth twice dailyEtodolac 400 mg tablet Discontinued 400 MG PO Twice daily 60 30 March 03, 2024 12:00am July 27, 2024 4:07pmFenofibrate Nanocrystallized (8 sources)Start: 03-09-2024 End: 72-20-8990ujad 1 tablet by mouth once dailyFenofibrate Nanocrystallized Discontinued 0 .ROUTE .COMPLEX March 09, 2024 1:54pm July 27, 2024 4:06pm TAKE 1 TABLET BY MOUTH EVERY DAYStart: 38-19-3385sfhc 1 tablet by mouth once dailyFenofibrate Nanocrystallized Active 0 .ROUTE .COMPLEX 90 March 09, 2024 1:54pm TAKE 1 TABLET BY MOUTH EVERY DAYStart: 03-09-2024 End: 07-90-4430ztba 145 mg by mouth once dailyFenofibrate Nanocrystallized Discontinued 145 MG PO Daily March 09, 2024 12:00am March 09, 2024 1:54pm Fenofibrate Nanocrystallized 145 mg tablet (12 sources)Start: 08-09-2024 End: 97-92-9198utyx 1 tablet by mouth once dailyFenofibrate Nanocrystallized 145 mg tablet Discontinued 0 .ROUTE .COMPLEX August 09, 2024 11:42am January 05, 2025 6:21pm TAKE 1 TABLET BY MOUTH EVERY DAYStart: 03-09-2024 End: 47-63-5337dyfy 1 tablet by mouth once dailyFenofibrate Nanocrystallized 145 mg tablet Discontinued 0 .ROUTE .COMPLEX March 09, 2024 1:54pm July 27, 2024 4:06pm TAKE 1 TABLET BY MOUTH EVERY DAYStart: 03-09-2024 End: 87-02-5981sous 1 tablet by mouth once dailyFenofibrate Nanocrystallized 145 mg tablet Discontinued 145 MG PO Daily March 09, 2024 12:00am March 09, 2024 1:54pmgabapentin 300 mg oral capsule (12 sources)Anti-epileptic AgentStart: 02-15-2024 End: 51-38-8253vkqo 1 capsule by mouth three times dailyGabapentin 300 mg capsule Discontinued 300 MG PO Three times daily February 15, 2024 12:00am 2023 4:06pminsulin detemir 100 unt/ml injectable solution (20 sources)Insulin AnalogStart: 12-08-2023 End: 15-22-5805auigqy 36 [IU] by subcutaneous injection once daily at bedtime Insulin Detemir U-100 (Levemir U-100 Insulin) 100 unit/mL solution Discontinued 36 UNIT SUBCUT Daily at bedtime 10.8 30 June 29, 2024 10:55am June 29, 2024 2:23pmLevemir FlexPen 100 UNIT/ML 36 units Subcutaneous nightly for 90 days Activemelatonin 10 mg oral capsule (12 sources)Start: 02-15-2024 End: 29-65-1302face 1 capsule by mouth once daily at bedtime as neededMelatonin 10 mg capsule Discontinued 10 MG PO Daily at bedtime as needed February 15, 2024 12:00am July 27, 2024 4:07pmmetFORMIN hydrochloride 1000 mg oral tablet (7 sources)BiguanideStart: 01-05-2025 End: 04-26-5944jvtt 1 tablet by mouth twice dailyMetformin 1,000 mg tablet Discontinued 1000 MG PO Twice daily January 05, 2025 12:00am March 31, 2025 1:22pmStart: 86-15-4230vccj 1 tablet by mouth twice daily at mealtimemetFORMIN (GLUCOPHAGE) 1000 MG tablet Take 1 tablet by mouth 2 times daily (with meals) 60 tablet Active End: 39-74-2983fzmw 500 mg by mouth twice daily at mealtimeMETFORMIN HCL PO Take 500 mg by mouth 2 times daily (with meals) 0 08/05/2020 Discontinued (Stop Andre ing at Discharge)methylPREDNISolone 4 mg oral tablet (10 sources)CorticosteroidStart: 12-11-2023 End: 38-09-8600pnqu 1 tablet by mouth onceMethylprednisolone (Medrol (Maximino)) 4 mg tablets,dose pack Discontinued 0 PO per package directions 1February 2023 1:00am February 15, 2024 10:58am PO PER PKG DIR for 6 daysmetroNIDAZOLE 500 mg oral tablet (2 sources)Nitroimidazole AntimicrobialStart: 39-81-0960lukw 4 tablets by mouth once at mealtimemetroNIDAZOLE 500 MG 4 tablets Orally once for 1 days Take all 4 tablets by mouth with food on Sep, Not-Taking/PRNStart: 46-78-1738zpay 4 tablets by mouth once at mealtimemetroNIDAZOLE 500 MG 4 tablets Orally once for 1 days Take all 4 tablets by mouth with food on Sep, Activenaproxen 500 mg oral tablet (5 sources)Nonsteroidal Anti-inflammatory DrugStart: 08-04-2024 End: 14-94-7995isuo 1 tablet by mouth twice daily at mealtimeNaproxen 500 mg Tablet Discontinued 500 MG PO Twice daily with meals 60 August 04, 2024 12:00am January 05, 2025 6:21pmtiZANidine 4 mg oral tablet (20 sources)Central alpha-2 Adrenergic AgonistStart: 08-04-2024 End: 90-90-1680jwnk 6 mg by mouth twice daily as neededTizanidine 4 mg Tablet Discontinued 6 MG PO Twice daily as needed for muscle spasticity August 04, 2024 12:00am January 05, 2025 6:21pmStart: 57-94-2361twlc 6 mg by mouth twice dailyTizanidine Active 6 MG PO Twice daily August 04, 2024 12:00amStart: 08-01-2024 End: 21-80-2341uimh 4 mg by mouth once daily at bedtime as neededTizanidine 6 mg capsule Discontinued 4 MG PO Daily at bedtime as needed for muscle spasticity August 01, 2024 12:00am August 03, 2024 9:47amStart: 08-01-2024 End: 41-97-1670njtj 4 mg by mouth once daily at bedtimeTizanidine Discontinued 4 MG PO Daily at bedtime August 01, 2024 12:00am August 03, 2024 9:47amStart: 07-27-2024 End: 16-60-6112laqg 1 capsule by mouth once daily at bedtime as neededTizanidine 6 mg capsule Discontinued 6 MG PO Daily at bedtime as needed for muscle spasticity 90 90October 2023 12:19pm August 01, 2024 11:58amStart: 06-29-2024 End: 94-23-2629bqys 2 capsules by mouth once daily at bedtimeTizanidine 2 mg capsule Discontinued 4 MG PO Daily at bedtime as needed for muscle spasticity 60 30Sept2023 12:00am July 27, 2024 4:15pm take 1-2 at bedtime Start: 06-29-2024 End: 18-14-0519htao 4 mg by mouth once daily at bedtimeTizanidine Discontinued 4 MG PO Daily at bedtime 60 30 June 29, 2024 12:00am July 27, 2024 4:15pm take 1-2 at bedtimevalACYclovir 1000 mg oral tablet (2 sources)Herpesvirus Nucleoside Analog DNA Polymerase Inhibitor, Herpes Simplex Virus Nucleoside Analog DNA Polymerase Inhibitor, Herpes Zoster Virus Nucleoside Analog DNA Polymerase InhibitorStart: 29-79-8609nuae 1 tablet by mouth every twelve hoursvalACYclovir HCl 1 GM 1 tablet Orally 2 times a day for 10 day(s) Sep, Not-Taking/PRNStart: 86-28-7120bgxf 1 tablet by mouth every twelve hoursvalACYclovir HCl 1 GM 1 tablet Orally 2 times a day for 10 day(s) Sep, Active Problems Active Problems Problem ClassificationProblemDateDocumented DateEpisodic/ChronicAdjustment disorders (13 sources)Adjustment disorder with anxious mood; 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: [Adjustment disorder with anxiety]65-14-1300XbhnvcgIljzcrw-related disorders (3 sources)Alcohol abuse, in remission; 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: [Alcohol dependence, in remission]Onset: 79-16-5775KtbvwiyXthhyso disorders (4 sources)Posttraumatic stress disorder; 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: [Anxiety]Onset: 49-59-7203IqtfklpZjvnofoan-deficit conduct and disruptive behavior disorders (12 sources)Attention deficit hyperactivity disorder; 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: [Attention- deficit hyperactivity disorder, unspecified type]Onset: ChronicAttention-deficit, conduct, and disruptive behavior disorders (6 sources)Attention-deficit hyperactivity disorder, unspecified type; 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: [Attention deficit disorder with hyperactivity]15-43-0602Btspbmk Cardiac dysrhythmias (1 source)Tachycardia, unspecified; 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: [TACHYCARDIA UNSPECIFIED] Onset: 58-90-2623NtnqjoowUcgihcn obstructive pulmonary disease and bronchiectasis (12 sources)Bronchitis; 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: [Bronchitis, not specified as acute or chronic]76-04-3709OhktackrJylveuzqygymb and procreative management (1 source)Contraception status; 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: [Encounter for other general counseling and advice on contraception]Onset: 63-91-8391ZhmzjzlnGufvsuxtoh and other anemia (1 source)Iron deficiency anemia, unspecified; 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: [IRON DEFICIENCY ANEMIA UNSPECIFIED]Onset: 02-10-9729RbuzjogsFlrnbmoy mellitus with complications (7 sources)Type 2 diabetes mellitus with hyperglycemia; 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: [Other specified diabetes mellitus with hyperglycemia]Onset: 64-24-2444IyizbmaRlxhvsdw mellitus without complication (20 sources)Diabetes mellitus; 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: [Type 2 diabetes mellitus without complications]Onset: 420289-83-5981DzrtzbhNfcngpetb of lipid metabolism (20 sources)Hypertriglyceridemia; 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: [Pure hyperglyceridemia]Onset: 860743-70-3540FlgbkyvKrycexybkxuyv symptoms and ill-defined conditions (3 sources)Increased frequency of urination; 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: [Frequency of micturition]Onset: 17-33-3653YvgoohisErznursm; including migraine (4 sources)Migraine; 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: [Other migraine, not intractable, without status migrainosus]Onset: 632361-28-5139FjdpsvjXmry disorders (20 sources)Bipolar disorder; 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: [Unspecified mood [affective] disorder]Onset: 731736-79-1342UnelmzkHnwj disorders (1 source)Mood disorders; 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: [Depression, unspecified]Onset: 16-52-0297Ljqkffwyoct chest pain (3 sources)Chest pain, unspecified; 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: [Chest pain]Onset: 05-09-2025 EpisodicOsteoarthritis (2 sources)Wnaypwbse60-30-6856LkubrsmNkrqk aftercare (1 source)Long-term current use of insulin; 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: [halfway (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]EpisodicOther nervous system disorders (1 source)Chronic pain; 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: [Other chronic pain]ChronicOther nervous system disorders (2 sources)Other chronic pain; 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: [Other chronic pain]Onset: 15-80-8933HzrlbkvVdeoc nervous system disorders (9 sources)Neuropathy; 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: [Polyneuropathy, unspecified]02-16-2024 ChronicOther nervous system disorders (8 sources)Polyneuropathy, unspecified; 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: [Mononeuritis of unspecified site]14-19-4212JxhzsovIkrvs nervous system disorders (4 sources)Toxic metabolic encephalopathy; 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: [Toxic metabolic encephalopathy]Onset: 407362-57-1094VuwakwqnUurky non-traumatic joint disorders (3 sources)Knee pain; 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: [Arthralgia - Knee / Patella / Tibia / Fibula]Onset: 17-40-2321IkeellwjGqqcg non-traumatic joint disorders (12 sources)Pain in left [...] diabetes mellitus; 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: [Diabetes Risk Test Score]Onset: 89-71-4553LsybmwtzCdfksdwkug disorders (not diabetes) (3 sources)Acute pancreatitis without necrosis or infection, unspecified; 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: [ACUTE PANCREATITIS WONECRS/INF UNS]Onset: 10-16-6491Vtjbqiqm Personality disorders (1 source)Borderline personality disorder; 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: [Borderline personality disorder]Onset: 091814-45-3346LxorufeNzfoqwpcn by other medications and drugs (4 sources)Intentional drug overdose; 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: [Suicide attempt by multiple drug overdose]Onset: 780285-42-2153GxdbdvhuAhlegcxi codes; unclassified (1 source)High risk heterosexual behaviorEpisodicResidual codes; unclassified (17 sources)Noncompliance with treatment; 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: [Noncompliance] 89-60-5285QjbwbxajBdlm and subcutaneous tissue infections (10 sources)Cellulitis of neck; 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: [Cellulitis of neck]03-03-2024 EpisodicSubstance-related disorders (7 sources)Nicotine dependence; 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: [Cannabis abuse, uncomplicated] Onset: 392356-23-3322JiuhoafNjndzew on above:Added secondary to documentation in Social History.Substance-related disorders (2 sources)Cannabis use, unspecified, uncomplicated; 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: [Cannabis use, unspecified, uncomplicated]Onset: 94-29-8041WjjvfackExhhlpkrfwkb (1 source)CONTACT W/AND (SUSP) EXPOS COVID-19; 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: [CONTACT W/AND (SUSP) EXPOS COVID-19]Onset: 03-30-5631Qnkqwgbyacfo (1 source)Patient's noncompliance with other medical treatment and regimen due to unspecified reason; 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: [Patient's noncompliance with other medical treatment and regimen due to unspecified reason]Onset: 30-06-2560Lykai infection (15 sources)Genital herpes simplex; 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: [Herpesviral infection of urogenital system, unspecified]Chronic Past or Other Problems Problem ClassificationProblemDateDocumented DateEpisodic/ChronicHeadache; including migraine (1 source)Headache; including migraineOther aftercare (4 sources)linen controller (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; 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: [halfway (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]Onset: 74-46-2813EgoxqervQyvjexjhhqs; intervertebral disc disorders; other back problems (19 sources)Chronic back pain ; 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: [Dorsalgia, unspecified]Onset: 061278-92-8093IhdjnnofNjitamu and intentional self-inflicted injury (1 source)Suicidal ideations; 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: [Suicidal ideations]Onset: 32-46-8785HkirtquoFmshgbmtuwco (3 sources)Finding of body mass index; 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: [Body Mass Index]Onset: 02-14-2020 Results Test NameValueInterpretationReference RangeFacilityXR CHEST 1 VWon 03-23-8038SB CHEST 1 VWXR CHEST 1 VW HISTORY: [...] by Manas Nunn MD on 05/09/2025 9:29 [facility]Gl[facility]com[facility] (BldC) [Mass/Vol]Ordered By: Blue Talbot on 21-53-2447Oksfils [Mass/Vol]Capillary blood glucose measurement by glucometer (mass/volume)[facility] HospitalComment on above:Random Glucose Reference Range is dependent on time and content of last meal. Glucose of more than 200 mg/dL in a nonstressed, ambulatory subject supports the diagnosis of Diabetes Mellitus.Glucose Poct Glucometerson 32-81-9346Hcjuvos [Mass/Vol]196 mg/dLNoFormerly [facility], [facility] Physician GroupComment on above:Result Comment: Random Glucose Reference Range is dependent on time and content of last meal. Glucose of more than 200 mg/dL in a nonstressed, ambulatory subject supports the diagnosis of Diabetes Mellitus. PERFORMED BY: [place] [id number] PATHOLOGIST SPECIALTY TRIMMER BRAEDEN COLE M.D.Performed By: #### GLULS #### Point of Care testing ,Omybjiy3Kus5: Cleaned MeterLee Memorial Hospital Physician GroupComment on above: Result Comment: PERFORMED BY: [facility] [address] [place] [address] PATHOLOGIST SPECIALTY TRIMMER BRAEDEN COLE M.D.Performed By: #### GLULS #### Point of Care testing ,Glucose [Mass/Vol]246 mg/dLLee Memorial Hospital Physician GroupComment on above: Result Comment: Random Glucose Reference Range is dependent on time and content of last meal. Glucose of more than 200 mg/dL in a nonstressed, ambulatory subject supports the diagnosis of Diabetes Mellitus.Performed By: #### GLULS #### Point of Care testing ,No Panel InformationOrdered By: Blue Talbot on 79-60-2130Xokwvxf Glucose CommentGlu2: cleaned [facility] HospitalGlucose Poct Glucometerson 95-59-8297Acyurho [Mass/Vol]239 mg/dLNoFormerly [facility], [facility] Physician GroupComment on above:Result Comment: Random Glucose Reference Range is dependent on time and content of last meal. Glucose of more than 200 mg/dL in a nonstressed, ambulatory subject supports the diagnosis of Diabetes Mellitus. PERFORMED BY: [place] [address] PATHOLOGIST SPECIALTY TRIMMER BRAEDEN COLE M.D.Performed By: #### GLULS #### Point of Care testing ,Glucose [Mass/Vol]212 mg/dLLee Memorial Hospital Physician GroupComment on above: Result Comment: Random Glucose Reference Range is dependent on time and content of last meal. Glucose of more than 200 mg/dL in a nonstressed, ambulatory subject supports the diagnosis of Diabetes Mellitus. PERFORMED BY: [place] [address] PATHOLOGIST SPECIALTY TRIMMER BRAEDEN COLE M.D.Performed By: #### URDS, ADDONUAPLUS #### [place] [address] PFMUptlfyd3Fwm1: Cleaned MeterNoFormerly [facility], [facility] Physician GroupComment on above:Result Comment: PERFORMED BY: [place] [address] PATHOLOGIST SPECIALTY TRIMMER BRAEDEN COLE M.D.Performed By: #### GLULS #### Point of Care testing ,Glucose [Mass/Vol]234 mg/dLNoFormerly [facility], [facility] Physician GroupComment on above: Result Comment: Random Glucose Reference Range is dependent on time and content of last meal. Glucose of more than 200 mg/dL in a nonstressed, ambulatory subject supports the diagnosis of Diabetes Mellitus.Performed By: #### GLULS #### Point of Care testing ,Pmhmgrn5Jow0: Cleaned MeterNoFormerly [facility], [facility] Physician GroupComment on above: Result Comment: PERFORMED BY: [place] [address] PATHOLOGIST SPECIALTY TRIMMER BRAEDEN COLE M.D.Performed By: #### URDS, ADDONUAPLUS #### [place] [address] USAGlucose [Mass/Vol]255 mg/dLNoFormerly [facility], [facility] Physician GroupComment on above:Result Comment: Random Glucose Reference Range is dependent on time and content of last meal. Glucose of more than 200 mg/dL in a nonstressed, ambulatory subject supports the diagnosis of Diabetes Mellitus.Performed By: #### URDS, ADDONUAPLUS #### [place] [address] USAGlucose Poct Glucometerson 27-73-0827Tonngdu6Vtu7: Cleaned MeterNoFormerly [facility], [facility] Physician GroupComment on above:Result Comment: PERFORMED BY: [place] [address] PATHOLOGIST SPECIALTY TRIMMER BRAEDEN COLE M.D.Performed By: #### GLULS #### Point of Care testing ,Glucose [Mass/Vol]230 mg/dLLee Memorial Hospital Physician GroupComment on above: Result Comment: Random Glucose Reference Range is dependent on time and content of last meal. Glucose of more than 200 mg/dL in a nonstressed, ambulatory subject supports the diagnosis of Diabetes Mellitus.Performed By: #### GLULS #### Point of Care testing ,Wthidkf6Pso6: Cleaned MeterNoFormerly [facility], [facility] Physician GroupComment on above: Result Comment: PERFORMED BY: [place] [address] PATHOLOGIST SPECIALTY TRIMMER BRAEDEN COLE M.D.Performed By: #### GLULS #### Point of Care testing ,Glucose [Mass/Vol]236 mg/dLLee Memorial Hospital Physician GroupComment on above: Result Comment: Random Glucose Reference Range is dependent on time and content of last meal. Glucose of more than 200 mg/dL in a nonstressed, ambulatory subject supports the diagnosis of Diabetes Mellitus.Performed By: #### GLULS #### Point of Care testing ,Glucose [Mass/Vol]175 mg/dLLee Memorial Hospital Physician GroupComment on above: Result Comment: Random Glucose Reference Range is dependent on time and content of last meal. Glucose of more than 200 mg/dL in a nonstressed, ambulatory subject supports the diagnosis of Diabetes Mellitus. PERFORMED BY: [place] [address] PATHOLOGIST SPECIALTY TRIMMER BRAEDEN COLE M.D.Performed By: #### GLULS #### Point of Care testing ,Fasguzl5Gmq6: Cleaned MeterNoFormerly [facility], [facility] Physician GroupComment on above: Result Comment: PERFORMED BY: [facility] [place] [address] PATHOLOGIST SPECIALTY TRIMMER BRAEDEN COLE M.D.Performed By: #### GLULS #### Point of Care testing ,Glucose [Mass/Vol]278 mg/dLLee Memorial Hospital Physician GroupComment on above: Result Comment: Random Glucose Reference Range is dependent on time and content of last meal. Glucose of more than 200 mg/dL in a nonstressed, ambulatory subject supports the diagnosis of Diabetes Mellitus.Performed By: #### GLULS #### Point of Care testing ,Alanine aminotransferase [Enzymatic activity/volume] in Serum or PlasmaOrdered By: Rola Valdes on 08-20-9931SXE [Catalytic activity/Vol]Alanine aminotransferase [Enzymatic activity/volume] in Serum or Plasma7St. [facility] HospitalAlbumin [Mass/volume] in Serum or Plasma by Bromocresol green (BCG) dye binding methoOrdered By: Rola Valdes on 04-02-2025 Albumin BCG dye [Mass/Vol]Albumin [Mass/volume] in Serum or Plasma by Bromocresol green (BCG) dye binding metho3.5-5.7FMetroHealth Parma Medical CenterAlkaline phosphatase [Enzymatic activity/volume] in Serum or PlasmaOrdered By: Rola Valdes on 35-46-8552AUN [Catalytic activity/Vol]Alkaline phosphatase [Enzymatic activity/volume] in Serum or Ldeiiz08-409KhcamhqaoSt. Charles HospitalApolipoprotein Bon 93-14-9738Ymvadpwtkcyici B [Mass/Vol] 83 mg/dLNormal<90The [facility] Physician GroupComment on above:Result Comment: Desirable < 90 Borderline High 90 - 99 High 100 - 130 Very High >130 ASCVD RISK THERAPEUTIC TARGET CATEGORY APO B (mg/dL) Very High Risk <80 (if extreme risk <70) High Risk <90 Moderate Risk <90 Performed at: [facility] Lab[address] [id number] First Assistant: Jermaine Perdomo MD, Phone: [phone] PERFORMED BY: [facility] [address] [place] [address] PATHOLOGIST SPECIALTY TRIMMER BRAEDEN COLE M.D.Performed By: #### GLULS #### Point of Care testing ,Aspartate aminotransferase [Enzymatic activity/volume] in Serum or Plasma Ordered By: Rola Valdes on 88-63-8707YNT [Catalytic activity/Vol] Aspartate aminotransferase [Enzymatic activity/volume] in Serum or PlasmaLow 13-39St. Charles HospitalBilirubin.total [Mass/volume] in Serum or PlasmaOrdered By: Rola Valdes on 32-12-4256Eqzhwzvmr [Mass/Vol] Bilirubin.total [Mass/volume] in Serum or Plasma0.3-1.0[facility] HospitalCalcium [Mass/volume] in Serum or PlasmaOrdered By: Rola Valdes on 45-54-7372Cyjbmuh [Mass/Vol]Calcium [Mass/volume] in Serum or Plasma8.6-10.3FMetroHealth Parma Medical CenterCarbon dioxide, total [Moles/volume] in Serum or PlasmaOrdered By: Rola Valdes on 04-02-2025 CO2 [Moles/Vol]Carbon dioxide, total [Moles/volume] in Serum or Xlvxev80.0-31.0 [facility] HospitalChloride [Moles/volume] in Serum or Plasma Ordered By: Rola Valdes on 73-36-1961Fqjqxiqm [Moles/Vol]Chloride [Moles/volume] in Serum or Nqukml46-864HwlpyfzgzSt. Charles Hospital Cholesterol [Mass/volume] in Serum or PlasmaOrdered By: Rola Valdes on 69-28-0955Uogyczktdsb [Mass/Vol]Cholesterol [Mass/volume] in Serum or Plasma Significant change ic317-481PpefovsxfSt. Charles HospitalComment on above: Delta: 267 on 04/01/25-0455Chol less than 200 mg/dl low riskChol 201-239 mg/dl borderline riskChol 240 mg/dl and greater high riskCholesterol in HDL [Mass/volume] in Serum or PlasmaOrdered By: Rola Valdes on 04-02-2025 Cholesterol in HDL [Mass/Vol]Serum or plasma high density lipoprotein (HDL) cholesterol bbeqdlitdok84-42LvadafadtSt. Charles HospitalComment on above: HDL CHOL ATP-III CLASSIFICATION Cardiovascular RiskHDL > or equal to 60 mg/dL LOWHDL < 40 mg/dL HIGHCholesterol in LDL Calc [Mass/Vol]Ordered By: Rola Valdes on 87-10-5607Rfzgsmcjdjs in LDL [Mass/Vol]Cholesterol in LDL [Mass/volume] in Serum or Plasma by calculation0-St. Charles HospitalComment on above:LDL ATP III CLASSIFICATIONLDL less than 100 mg/dL OptimalLDL 100-129 mg/dL Near or above xbcxxnoTMH290-251 mg/dL Borderline highLDL 160-189 mg/dL HighLDL greater than 189 mg/dL Very highCholesterol in LDL [Mass/volume] in Serum or PlasmaOrdered By: Rola Valdes on 04-02-2025 Cholesterol in LDL [Mass/Vol]Cholesterol in LDL [Mass/volume] in Serum or Plasma 0-St. Charles HospitalComment on above:LDL ATP III CLASSIFICATIONLDL less than 100 mg/dL OptimalLDL 100-129 mg/dL Near or above lqkelwnSDH023-557 mg/dL Borderline highLDL 160-189 mg/dL HighLDL greater than 189 mg/dL Very highCholesterol in VLDL Calc [Mass/Vol]Ordered By: Rola Valdes on 01-40-6349Wnwdgivljxr in VLDL [Mass/Vol]Cholesterol in VLDL [Mass/volume] in Serum or Plasma by calculationSt. Charles Hospital Comment on above:Test not performedComprehensive Metabolic Panelon 04-02-2025 Albumin [Mass/Vol]4.0 g/dLNormal3.5-5.7The [facility] Physician GroupComment on above:Order Comment: FASTING YPerformed By: #### GLULS #### Point of Care testing ,Albumin/Globulin [Mass ratio]1.8 {ratio}NormalThe [facility]ician [facility] Comment on above:Order Comment: FASTING YPerformed By: #### GLULS #### Point of Care testing ,ALP [Catalytic activity/Vol]38 U/PKekanp50-606Jtz [facility] Comment on above:Order Comment: FASTING YPerformed By: #### GLULS #### Point of Care testing ,ALT [Catalytic activity/Vol]14 U/LNormal7-52The [facility] Comment on above:Order Comment: FASTING YPerformed By: #### GLULS #### Point of Care testing ,Anion gap [Moles/Vol]10.7 mmol/LNormal6.0-15.0The [facility] Comment on above:Order Comment: FASTING YPerformed By: #### GLULS #### Point of Care testing ,AST [Catalytic activity/Vol]12 U/BTss57-34Nyb [facility] Physician GroupComment on above:Order Comment: FASTING YPerformed By: #### GLULS #### Point of Care testing ,Bilirubin [Mass/Vol]0.8 mg/dLNormal0.3-1.0The [facility] Physician GroupComment on above:Order Comment: FASTING YPerformed By: #### GLULS #### Point of Care testing ,Calcium [Mass/Vol]8.7 mg/dLNormal8.6-10.3The [facility] Physician GroupComment on above:Order Comment: FASTING YPerformed By: #### GLULS #### Point of Care testing ,Chloride [Moles/Vol]101 mmol/DZdzqnt62-903Hlk [facility] Physician GroupComment on above:Order Comment: FASTING YPerformed By: #### GLULS #### Point of Care testing ,CO2 [Moles/Vol]26.2 mmol/FVcueiq67.0-31.0The [facility] Physician GroupComment on above:Order Comment: FASTING YPerformed By: #### GLULS #### Point of Care testing ,Creatinine [Mass/Vol]0.85 mg/dLNormal0.70-1.30The [facility] Comment on above:Order Comment: FASTING YPerformed By: #### GLULS #### Point of Care testing ,Creatinine Clr Calc Ixpcxjok828.88NoFormerly [facility], [facility] Physician GroupComment on above:Order Comment: FASTING YPerformed By: #### GLULS #### Point of Care testing ,GFR/1.73 sq M.predicted MDRD (S/P/Bld) [Vol rate/Area]mL/min/{1.73_m2}NormalThe [facility] Hospital Physician GroupComment on above:Order Comment: FASTING YPerformed By: #### GLULS #### Point of Care testing ,Globulin (S) [Mass/Vol]2.2 g/dLNoFormerly [facility], [facility] Physician GroupComment on above:Order Comment: FASTING YPerformed By: #### GLULS #### Point of Care testing ,Glucose [Mass/Vol]312 mg/rNIspf85-560Lgg [facility] Physician GroupComment on above:Order Comment: FASTING YResult Comment: Random Glucose Reference Range is dependent on time and content of last meal. Glucose of more than 200 mg/dL in a nonstressed, ambulatory subject supports the diagnosis of Diabetes Mellitus. ADA recommended reference rangePerformed By: #### GLULS #### Point of Care testing ,Potassium [Moles/Vol]3.9 mmol/LNormal3.5-5.1The [facility] Comment on above:Order Comment: FASTING YPerformed By: #### GLULS #### Point of Care testing ,Protein [Mass/Vol]6.2 g/dLLow6.4-8.9The [facility] Physician GroupComment on above:Order Comment: FASTING YPerformed By: #### GLULS #### Point of Care testing ,Sodium [Moles/Vol]134 mmol/WXcr910-666Hlz [facility] Physician GroupComment on above:Order Comment: FASTING YPerformed By: #### GLULS #### Point of Care testing ,Urea nitrogen [Mass/Vol]14 mg/dLNormal7-25ThGritman Medical Center Physician GroupComment on above:Order Comment: FASTING YPerformed By: #### GLULS #### Point of Care testing ,Creatinine [Mass/volume] in Serum or PlasmaOrdered By: Rola Valdes on 78-41-9265Gcgpswfdlr [Mass/Vol]Creatinine [Mass/volume] in Serum or Plasma 0.70-1.30St. Charles HospitalGlobulin Calc (S) [Mass/Vol]Ordered By: Rola Valdes on 69-29-0613Zcwbzfse (S) [Mass/Vol]Serum globulin measurement by calculation (mass/volume)[facility]. [facility] HospitalGlucose Poct Glucometerson 85-49-4868Ezzpbip0Shm7: Cleaned MeterLee Memorial Hospital Physician GroupComment on above:Result Comment: PERFORMED BY: [place] [address] PATHOLOGIST SPECIALTY TRIMMER BRAEDEN COLE M.D.Performed By: #### GLULS #### Point of Care testing ,Glucose [Mass/Vol]267 mg/dLLee Memorial Hospital Physician GroupComment on above: Result Comment: Random Glucose Reference Range is dependent on time and content of last meal. Glucose of more than 200 mg/dL in a nonstressed, ambulatory subject supports the diagnosis of Diabetes Mellitus.Performed By: #### GLULS #### Point of Care testing ,Hszgxse1Vti6: Cleaned MeterLee Memorial Hospital Physician GroupComment on above: Result Comment: PERFORMED BY: [place] [address] PATHOLOGIST SPECIALTY TRIMMER BRAEDEN COLE M.D.Performed By: #### URDS, ADDONUAPLUS #### [facility] [address] [place] [address] USAGlucose [Mass/Vol]308 mg/dLNoFormerly [facility], [facility] Physician GroupComment on above:Result Comment: Random Glucose Reference Range is dependent on time and content of last meal. Glucose of more than 200 mg/dL in a nonstressed, ambulatory subject supports the diagnosis of Diabetes Mellitus.Performed By: #### URDS, ADDONUAPLUS #### [facility] [address] [place] [address] QNAItndqba9Cll3: Cleaned MeterLee Memorial Hospital Physician GroupComment on above:Result Comment: PERFORMED BY: [facility] [address] [place] [address] PATHOLOGIST SPECIALTY TRIMMER BRAEDEN COLE M.D.Performed By: #### GLULS #### Point of Care testing ,Glucose [Mass/Vol]279 mg/dLLee Memorial Hospital Physician GroupComment on above: Result Comment: Random Glucose Reference Range is dependent on time and content of last meal. Glucose of more than 200 mg/dL in a nonstressed, ambulatory subject supports the diagnosis of Diabetes Mellitus.Performed By: #### GLULS #### Point of Care testing ,Rpymrul2Zis1: Cleaned MeterNoFormerly [facility], [facility] [facility] County HospitalComment on above: Result Comment: PERFORMED BY: [facility] [address] [place] [address] PATHOLOGIST SPECIALTY TRIMMER BRAEDEN COLE M.D.Performed By: #### GLULS #### Point of Care testing ,Glucose [Mass/Vol]302 mg/dLLee Memorial Hospital Physician GroupComment on above: Result Comment: Random Glucose Reference Range is dependent on time and content of last meal. Glucose of more than 200 mg/dL in a nonstressed, ambulatory subject supports the diagnosis of Diabetes Mellitus.Performed By: #### GLULS #### Point of Care testing ,Glucose [Mass/volume] in Serum or PlasmaOrdered By: Rola Valdes on 92-89-7572Aaillkw [Mass/Vol]Glucose [Mass/volume] in Serum or PbrksbPsmv64-477 [facility] HospitalComment on above:ADA recommended reference rangeRandom Glucose Reference Range is dependent on time and content of last meal. Glucose of more than 200 mg/dL in a nonstressed, ambulatory subject supports the diagnosisof Diabetes Mellitus.LDL Cholesterol Measuredon 04-02-2025 LDL Cholesterol Kzputlir90 mg/dLNormal0-100The [facility] Physician GroupComment on above:Order Comment: FASTING YResult Comment: LDL ATP III CLASSIFICATION LDL less than 100 mg/dL Optimal LDL 100-129 mg/dL Near or above optimal LDL 130-159 mg/dL Borderline high LDL 160-189 mg/dL High LDL greater than 189 mg/dL Very high PERFORMED BY: [facility] [address] [place] [address] PATHOLOGIST SPECIALTY TRIMMER BRAEDEN COLE M.D.Performed By: #### GLULS #### Point of Care testing ,Lipaseon 00-44-4824Wtfwpk [Catalytic activity/Vol]39.0 U/YFcchky96.0-82.0The [facility] Physician GroupComment on above:Order Comment: FASTING YPerformed By: #### GLULS #### Point of Care testing ,Lipase [Enzymatic activity/volume] in Serum or PlasmaOrdered By: Rola Valdes on 54-96-9128Aquxpm [Catalytic activity/Vol]Lipase [Enzymatic activity/volume] in Serum or Cuwqrx85.0-82.0[facility] Lipid Panelon 98-42-9857Yvhwcuwumhf [Mass/Vol]196 mg/dLInvalid Interpretation Mwsj382-887Sye [facility] Physician GroupComment on above:Order Comment: FASTING YResult Comment: Chol less than 200 mg/dl low risk Chol 201-239 mg/dl borderline risk Chol 240 mg/dl and greater high riskPerformed By: #### GLULS #### Point of Care testing ,Cholesterol in HDL [Mass/Vol]23 mg/sRGsbpdz79-28Yiw [facility] Comment on above:Order Comment: FASTING YResult Comment: HDL CHOL ATP-III CLASSIFICATION Cardiovascular Risk HDL > or equal to 60 mg/dL LOW HDL < 40 mg/dL HIGHPerformed By: #### GLULS #### Point of Care testing ,Cholesterol.total/Cholesterol in HDL [Mass ratio]8.5 {ratio}Normal<5.0The [facility] Physician GroupComment on above:Order Comment: FASTING YResult Comment: PERFORMED BY: [facility] [address] [place] [address] PATHOLOGIST SPECIALTY TRIMMER BRAEDEN COLE M.D.Performed By: #### GLULS #### Point of Care testing ,LDL Cholesterol,Calculated<21Nbbpbo2-242Uws [facility] Physician GroupComment on above:Order Comment: FASTING YResult Comment: LDL ATP III CLASSIFICATION LDL less than 100 mg/dL Optimal LDL 100-129 mg/dL Near or above optimal LDL 130-159 mg/dL Borderline high LDL 160-189 mg/dL High LDL greater than 189 mg/dL Very highPerformed By: #### GLULS #### Point of Care testing ,Triglyceride w/Zanrqg365 mg/dLHigh0-149The [facility] Physician GroupComment on above:Order Comment: FASTING [...] #### Point of Care testing ,VLDL CHOLESTEROLNot performedNormalThGritman Medical Center Physician GroupComment on above:Order Comment: FASTING YPerformed By: #### GLULS #### Point of Care testing ,No Panel InformationOrdered By: Rola Valdes on 09-97-7957Knawsfhax GFR (CKD-EPI)> 60.0 mL/MinSt. Charles HospitalPharmacy Creatinine Clearance (Tupa799.88[facility]. [facility] HospitalPotassium [Moles/volume] in Serum or PlasmaOrdered By: Rola Valdes on 88-46-6792Jgjfaigfi [Moles/Vol]Potassium [Moles/volume] in Serum or Plasma3.5-5.1FMetroHealth Parma Medical CenterProtein [Mass/volume] in Serum or PlasmaOrdered By: Rola Valdes on 28-16-8769Xragjzh [Mass/Vol]Protein [Mass/volume] in Serum or PlasmaLow6.4-8.9[facility]. [facility] HospitalRedraw Vitamin D 25OHon 29-63-7314Wkyxms Vitamin D 25OH18.6 ng/aCFrg97-391Oaa [facility] Comment on above:Result Comment: VITAMIN D STATUS 25(OH)VITAMIN D RANGE (ng/mL) Deficient <20 Insufficient 20 to <30 Sufficient 30 to 100 Reference: Ashley MF,Jodee NC, Christina GUEVARA, et al. Evaluation,treatment, and prevention of vitamin D deficiency; an Endocrine Society clinical practice guideline. JCEM. 2010; 96(7):1911-30. PERFORMED BY: [facility] [place] [address] PATHOLOGIST SPECIALTY TRIMMER BRAEDEN COLE M.D.Performed By: #### GLULS #### Point of Care testing ,Serum or plasma albumin/globulin mass ratioOrdered By: Rola Valdes on 18-59-0794Teuphgc/Globulin [Mass ratio]Serum or plasma albumin/globulin mass ratioHolzer Health Systemerum or plasma anion gap determination Ordered By: Rola Valdes on 92-69-7678Tvbpy gap [Moles/Vol]Serum or plasma anion gap determination6.0-15.0Holzer Health Systemerum or plasma total cholesterol/high density lipoprotein (HDL) cholesterol mass rat Ordered By: Rola Valdes on 24-59-2189Mhncmctxlvs.total/Cholesterol in HDL [Mass ratio]Serum or plasma total cholesterol/high density lipoprotein (HDL) cholesterol mass rat<5.0Holzer Health Systemodium [Moles/volume] in Serum or PlasmaOrdered By: Rola Valdes on 91-67-8071Ctzhwz [Moles/Vol]Sodium [Moles/volume] in Serum or OzueynUsc265-994NhxackocgSt. Charles HospitalTriglyceride [Mass/volume] in Serum or PlasmaOrdered By: Rola Valdes on 66-10-0467Gemmpyqakfmj [Mass/Vol]Triglyceride [Mass/volume] in Serum or PlasmaHigh0-149St. [facility] HospitalComment on above:If the triglyceride result is greater than 400, LDLC and related calculations cannot be calculated and resulted.TRIG ATP III CLASSIFICATIONTRIG less than 150 mg/dL NormalTRIG 150-199 mg/dL BorderlinehighTRIG 200-500 mg/dL High TRIG greater than 500 mg/dL Very highStandard traceable to the Center for Disease Conrtrol and Prevention (CDC) test method.Urea nitrogen [Mass/volume] in Serum or PlasmaOrdered By: Rola Valdes on 30-65-2168Lepj nitrogen [Mass/Vol] Urea nitrogen [Mass/volume] in Serum or Plasma7-25St. [facility] HospitalVitamin B12on 80-53-8725Fagsoyjtx (Vitamin B12) [Mass/Vol]632 pg/mLNormal 180-914The [facility] Physician GroupComment on above:Order Comment: Comment add on to previously drawn specimenResult Comment: PERFORMED BY: [facility] [address] [place] [address] PATHOLOGIST SPECIALTY TRIMMER BRAEDEN COLE M.D.Performed By: #### GLULS #### Point of Care testing ,Vitamin B12 ser/plasOrdered By: Rola Valdes on 05-04-7984Oswnviibr (Vitamin B12) [Mass/Vol]Vitamin B12 ser/rgol273-525JjtdlqkvgSt. Charles HospitalVitamin D+Metabolites [Mass/volume] in Serum or PlasmaOrdered By: Blue Talbot on 83-86-5434Qkgwxag D+Metabolites [Mass/Vol]Vitamin D+Metabolites [Mass/volume] in Serum or ZjxvxrDkh40-737YflbitwioSt. Charles HospitalComment on above:VITAMIN D STATUS 25(OH)VITAMIN D RANGE (ng/mL) Deficient <20 Insufficient 20 to <15Mgywlmxuic18 to 100Reference: Ashley MF,Jodee NC, Christina GUEVARA, et al. Evaluation,treatment, and prevention of vitamin D deficiency; an Endocrine Society clinical practice guideline. JCEM. 2010; 96(7):1911-30.A1C with Estimated Average Gluon 79-76-1504Ptyfedt [Mass/Vol]240 mg/dLNormalThe [facility] Physician GroupComment on above:Result Comment: PERFORMED BY: [facility] [address] [place] [address] PATHOLOGIST SPECIALTY TRIMMER BRAEDEN COLE M.D.Performed By: #### GLULS #### Point of Care testing ,HbA1c (Bld) [Mass fraction]10.0 %High4.3-5.6The [facility] Comment on above:Result Comment: Increased risk for diabetes: 5.7 - 6.4 diabetes: >6.4 glycemic control for adults with diabetes: <7.0Performed By: #### GLULS #### Point of Care testing ,Blood estimated average glucose determination by estimation from glycated hemoglobinOrdered By: Blue Talbot on 34-33-2064Yiussbp glucose Estimated from glycated hemoglobin (Bld) [Mass/Vol]Glucose mean value [Mass/volume] in Blood Estimated from glycated hemoglobinSt. Charles HospitalGlucose Poct Glucometerson 52-91-1184Lsemuwf0Agy3: Cleaned Meter [facility] Physician GroupComment on above:Result Comment: PERFORMED BY: [place] [address] PATHOLOGIST SPECIALTY TRIMMER BRAEDEN COLE M.D.Performed By: #### GLULS #### Point of Care testing ,Glucose [Mass/Vol]284 mg/dLLee Memorial Hospital Physician GroupComment on above: Result Comment: Random Glucose Reference Range is dependent on time and content of last meal. Glucose of more than 200 mg/dL in a nonstressed, ambulatory subject supports the diagnosis of Diabetes Mellitus.Performed By: #### GLULS #### Point of Care testing ,Odpbqkr4Ziy1: Cleaned MeterNoFormerly [facility], [facility] Physician GroupComment on above: Result Comment: PERFORMED BY: [place] [phone] PATHOLOGIST SPECIALTY TRIMMER BRAEDEN COLE M.D.Performed By: #### GLULS #### Point of Care testing ,Glucose [Mass/Vol]368 mg/dLLee Memorial Hospital Physician [place] [facility] County HospitalComment on above: Result Comment: Random Glucose Reference Range is dependent on time and content of last meal. Glucose of more than 200 mg/dL in a nonstressed, ambulatory subject supports the diagnosis of Diabetes Mellitus.Performed By: #### GLULS #### Point of Care testing ,Exxtusg6SuzpjwTxcLee Memorial Hospital Physician GroupComment on above:Result Comment: Glu2: WILL NOTIFY DR/RN PERFORMED BY: [place] [address] PATHOLOGIST SPECIALTY TRIMMER BRAEDEN COLE M.D.Performed By: #### URDS, ADDONUAPLUS #### [address] [address] USAGlucose [Mass/Vol]449 mg/dLOff scale highThe [facility] Hospital Physician GroupComment on above:Result Comment: Random Glucose Reference Range is dependent on time and content of last meal. Glucose of more than 200 mg/dL in a nonstressed, ambulatory subject supports the diagnosis of Diabetes Mellitus.Performed By: #### URDS, ADDONUAPLUS #### [facility] [address] [place] [address] USAHemoglobin A1c/Hemoglobin.total in BloodOrdered By: Blue Talbot on 36-47-3906QxP7r (Bld) [Mass fraction]Hemoglobin A1c percentageHigh4.3-5.6FMetroHealth Parma Medical CenterComment on above:Increased risk for diabetes: 5.7 - 6.4diabetes: >6.4glycemic control for adults with diabetes: <7.0Lipid Panelon 87-29-5707Ezpmkpnvqsd [Mass/Vol]267 mg/dLHigh 140-200The [facility] Physician [place] [facility] HospitalComment on above:Result Comment: Chol less than 200 mg/dl low risk Chol 201-239 mg/dl borderline risk Chol 240 mg/dl and greater high riskPerformed By: #### GLULS #### Point of Care testing ,Cholesterol in HDL [Mass/Vol]20 mg/qMMbv55-02Zwh [facility] Comment on above:Result Comment: HDL CHOL ATP-III CLASSIFICATION Cardiovascular Risk HDL > or equal to 60 mg/dL LOW HDL < 40 mg/dL HIGHPerformed By: #### GLULS #### Point of Care testing ,Cholesterol.total/Cholesterol in HDL [Mass ratio]13.4 {ratio}Normal<5.0The [facility] Heritage ValleyComment on above:Performed By: #### GLULS #### Point of Care testing ,LDL Cholesterol,CalculatedNot performedNormal0-100[facility] Comment on above:Performed By: #### GLULS #### Point of Care testing ,Triglyceride w/Meypxy4713 mg/dLHigh0-149The [facility] Heritage ValleyComment on above:Result Comment: If the triglyceride result [...] #### Point of Care testing ,VLDL CHOLESTEROLNot performedNormAdventHealth Palm Harbor ER Physician GroupComment on above:Performed By: #### GLULS #### Point of Care testing ,Thyroid Stim Hormone w/Rflxon 42-33-1802Pmhjttk Stim Hormone w/Rflx3.72 u[iU]/mLNormal0.45-5.33The [facility] Physician [place] [facility] HospitalComment on above:Performed By: #### GLULS #### Point of Care testing ,Thyrotropin [Units/volume] in Serum or PlasmaOrdered By: Blue Talbot on 93-05-3541VPL QnThyrotropin [Units/volume] in Serum or Plasma0.45-5.33 [facility] HospitalVitamin D 25 Hydroxy Totalon 88-36-5255Jufyusj D 25 Hydroxy ItspjEiizzy96-692Oxj [facility] Physician [place] [facility] HospitalComment on above: Result Comment: Specimen hemolyzed, redraw requested VITAMIN D STATUS 25(OH)VITAMIN D RANGE (ng/mL) Deficient <20 Insufficient 20 to <30 Sufficient 30 to 100 Reference: Ashley MF,Jodee NC, Christina GUEVARA, et al. Evaluation,treatment, and prevention of vitamin D deficiency; an Endocrine Society clinical practice guideline. JCEM. 2010; 96(7):1911-30. PERFORMED BY: [facility] [address] [place] [address] PATHOLOGIST SPECIALTY TRIMMER BRAEDEN COLE M.D.Performed By: #### GLULS #### Point of Care testing ,Acetaminophenon 63-18-5137Btpeivqcedgow [Mass/Vol]0.1 ug/mLLow10.0-30.0The [facility] Physician [place] [facility] HospitalComment on above:Result Comment: PERFORMED BY: [facility] [address] [place] [address] PATHOLOGIST SPECIALTY TRIMMER BRAEDEN COLE M.D.Performed By: #### GLULS #### Point of Care testing ,Acetaminophen [Mass/volume] in Serum or PlasmaOrdered By: Kris Gross 01-09-6040Hhmzmmjgvafid [Mass/Vol]Acetaminophen [Mass/volume] in Serum or Plasma Low10.0-30.0[facility]. [facility] HospitalAlanine aminotransferase [Enzymatic activity/volume] in Serum or PlasmaOrdered By: Kris Gross 48-35-8278CSE [Catalytic activity/Vol]Alanine aminotransferase [Enzymatic activity/volume] in Serum or Plasma7-52[facility] HospitalAlbumin [Mass/volume] in Serum or Plasma by Bromocresol green (BCG) dye binding methoOrdered By: Kris Gross 72-50-5489Qklvfwc BCG dye [Mass/Vol]Albumin [Mass/volume] in Serum or Plasma by Bromocresol green (BCG) dye binding metho3.5-5.7FMetroHealth Parma Medical CenterAlkaline phosphatase [Enzymatic activity/volume] in Serum or PlasmaOrdered By: Kris Gross 59-42-9561SXO [Catalytic activity/Vol]Alkaline phosphatase [Enzymatic activity/volume] in Serum or Nzuyxd57-985PdtcaeuyySt. Charles HospitalAspartate aminotransferase [Enzymatic activity/volume] in Serum or PlasmaOrdered By: Kris Gross 41-85-1689LFL [Catalytic activity/Vol]Aspartate aminotransferase [Enzymatic activity/volume] in Serum or Jeutth48-83FyndawgkmSt. Charles HospitalBilirubin.total [Mass/volume] in Serum or PlasmaOrdered By: Kris Gross 50-30-6391Kskyfnyef [Mass/Vol] Bilirubin.total [Mass/volume] in Serum or Plasma0.3-1.0[facility] HospitalCalcium [Mass/volume] in Serum or PlasmaOrdered By: Kris Gross 52-53-1283Cuobpao [Mass/Vol]Calcium [Mass/volume] in Serum or Plasma8.6-10.3 [facility] HospitalCarbon dioxide, total [Moles/volume] in Serum or PlasmaOrdered By: Kris Gross 30-12-0460WJ6 [Moles/Vol]Carbon dioxide, total [Moles/volume] in Serum or Htxqoc51.0-31.0[facility] HospitalChloride [Moles/volume] in Serum or PlasmaOrdered By: Kris Gross on 30-18-7903Apdbbzmy [Moles/Vol]Chloride [Moles/volume] in Serum or Ezgvpf50-409 [facility] HospitalComprehensive Metabolic Panelon 03-31-2025 Albumin [Mass/Vol]4.5 g/dLNormal3.5-5.7The [facility] Physician GroupComment on above:Performed By: #### GLULS #### Point of Care testing ,Albumin/Globulin [Mass ratio]1.7 {ratio}NormalThe [facility] Comment on above:Performed By: #### GLULS #### Point of Care testing ,ALP [Catalytic activity/Vol]42 U/VCyjndk99-117Ypl [facility]ician [facility] Comment on above:Result Comment: PERFORMED BY: [facility] [address] [place] [address] PATHOLOGIST SPECIALTY TRIMMER BRAEDEN COLE M.D.Performed By: #### GLULS #### Point of Care testing ,ALT [Catalytic activity/Vol]15 U/LNormal7-52The [facility] Comment on above:Performed By: #### GLULS #### Point of Care testing ,Anion gap [Moles/Vol]12.8 mmol/LNormal6.0-15.0The [facility] Comment on above:Performed By: #### GLULS #### Point of Care testing ,AST [Catalytic activity/Vol]18 U/CRdrafp86-18Uag [facility] Comment on above:Performed By: #### GLULS #### Point of Care testing ,Bilirubin [Mass/Vol]0.6 mg/dLNormal0.3-1.0The [facility] Physician GroupComment on above:Performed By: #### GLULS #### Point of Care testing ,Calcium [Mass/Vol]9.2 mg/dLNormal8.6-10.3The [facility] Physician GroupComment on above:Performed By: #### GLULS #### Point of Care testing ,Chloride [Moles/Vol]101 mmol/ZWcnsqa04-709Tfv [facility] Physician GroupComment on above:Performed By: #### GLULS #### Point of Care testing ,CO2 [Moles/Vol]23.4 mmol/UQyrxlx53.0-31.0The [facility] Physician GroupComment on above:Performed By: #### GLULS #### Point of Care testing ,Creatinine [Mass/Vol]0.82 mg/dLNormal0.70-1.30The [facility] Comment on above:Performed By: #### GLULS #### Point of Care testing ,GFR/1.73 sq M.predicted MDRD (S/P/Bld) [Vol rate/Area]mL/min/{1.73_m2}NormalThe [facility] Physician GroupComment on above:Performed By: #### GLULS #### Point of Care testing ,Globulin (S) [Mass/Vol]2.6 g/dLNormalThe [facility] Physician GroupComment on above:Performed By: #### GLULS #### Point of Care testing ,Glucose [Mass/Vol]321 mg/aCQthy81-807Qlf [facility] Physician GroupComment on above:Result Comment: Random Glucose Reference Range is dependent on time and content of last meal. Glucose of more than 200 mg/dL in a nonstressed, ambulatory subject supports the diagnosis of Diabetes Mellitus. ADA recommended reference rangePerformed By: #### GLULS #### Point of Care testing ,Potassium [Moles/Vol]4.2 mmol/LNormal3.5-5.1The [facility] Comment on above:Result Comment: Hemolysis is present at a level that could interfere with the result. Contact lab if redraw is requiredPerformed By: #### GLULS #### Point of Care testing ,Protein [Mass/Vol]7.1 g/dLNormal6.4-8.9The [facility] Physician GroupComment on above:Performed By: #### GLULS #### Point of Care testing ,Sodium [Moles/Vol]133 mmol/BIcw972-707Lkk [facility] Physician GroupComment on above:Performed By: #### GLULS #### Point of Care testing ,Urea nitrogen [Mass/Vol]19 mg/dLNormal7-25The [facility] Physician [place] [facility] HospitalComment on above:Performed By: #### GLULS #### Point of Care testing ,Creatinine [Mass/volume] in Serum or PlasmaOrdered By: Kris Gross on 98-35-9846Iazkhaload [Mass/Vol]Creatinine [Mass/volume] in Serum or Plasma 0.70-1.30[facility] HospitalEthanol [Mass/volume] in Serum or PlasmaOrdered By: Kris Gross on 74-84-0804Mrglotg [Mass/Vol]Ethanol [Mass/volume] in Serum or PlasmaSt. Charles HospitalComment on above:Lipemia is present at a level that could interfere with the result.Hemolysis is present at a level that could interfere with the result.Test not performedEthyl Alcohol Profileon 87-25-8606Nazeefy [Mass/Vol]mg/dLNoMetroHealth Parma Medical CenterComment on above:Result Comment: Lipemia is present at a level that could interfere with the result. Hemolysis is present at a level that could interfere with the result.Performed By: #### GLULS #### Point of Care testing ,Percent EthanolNot performedNoMetroHealth Parma Medical CenterComment on above:Result Comment: PERFORMED BY: [facility] [address] [place] [address] PATHOLOGIST SPECIALTY TRIMMER BRAEDEN COLE M.D.Performed By: #### GLULS #### Point of Care testing ,Globulin Calc (S) [Mass/Vol]Ordered By: Kris Gross on 44-07-3350Fidzuylx (S) [Mass/Vol]Serum globulin measurement by calculation (mass/volume)[facility] HospitalGlucose Glucometer (BldC) [Mass/Vol]Ordered By: Blue Talbot on 79-44-9292Sbcugpe [Mass/Vol]Capillary blood glucose measurement by glucometer (mass/volume)[facility] HospitalComment on above:Random Glucose Reference Range is dependent on time and content of last meal. Glucose of more than 200 mg/dL in a nonstressed, ambulatory subject supports the diagnosis of Diabetes Mellitus.Glucose Poct Glucometerson 67-64-7365Uyoblvt [Mass/Vol]292 mg/dLNormalThe [place] Physician GroupComment on above:Result Comment: Random Glucose Reference Range is dependent on time and content of last meal. Glucose of more than 200 mg/dL in a nonstressed, ambulatory subject supports the diagnosis of Diabetes Mellitus. PERFORMED BY: [facility] [address] [place] [address] PATHOLOGIST SPECIALTY TRIMMER BRAEDEN COLE M.D.Performed By: #### GLULS #### Point of Care testing ,Glucose [Mass/volume] in Serum or PlasmaOrdered By: Kris Gross on 03-31-2025 Glucose [Mass/Vol]Glucose [Mass/volume] in Serum or FlxfibIhkv38-474ToxkbfvhvSt. Charles HospitalComment on above:ADA recommended reference rangeRandom Glucose Reference Range is dependent on time and content of last meal. Glucose of more than 200 mg/dL in a nonstressed, ambulatory subject supports the diagnosisof Diabetes Mellitus.No Panel InformationOrdered By: Kris Gross on 07-11-9145Rcqrbolph GFR (CKD-EPI)> 60.0 mL/MinSt. Charles Hospital Pharmacy Creatinine Clearance (ChemN/[facility] HospitalPotassium [Moles/volume] in Serum or PlasmaOrdered By: Kris Gross on 03-31-2025 Potassium [Moles/Vol]Potassium [Moles/volume] in Serum or Plasma3.5-5.1FMetroHealth Parma Medical CenterComment on above:Hemolysis is present at a level that could interfere with the result.Contact lab if redraw is requiredProtein [Mass/volume] in Serum or PlasmaOrdered By: Kris Gross on 35-28-7938Bbkwkpj [Mass/Vol]Protein [Mass/volume] in Serum or Plasma6.4-8.9[facility] Health Systemalicylateon 08-91-1768Jpmumqqyou<1.5Low15.0-30.0The [facility] Physician GroupComment on above:Result Comment: Patients treated with Sulfasalazine may generate a false high result for Salicylate.Performed By: #### GLULS #### Point of Care testing ,Salicylates [Mass/volume] in Serum or PlasmaOrdered By: Kris Gross on 36-09-9988Tqbiqkjunoe [Mass/Vol]Salicylates [Mass/volume] in Serum or PlasmaLow 15.0-30.0[facility] HospitalComment on above:Patients treated with Sulfasalazine may generate a false high result for Salicylate.Serum or plasma albumin/globulin mass ratioOrdered By: Kris Gross on 03-31-2025 Albumin/Globulin [Mass ratio]Serum or plasma albumin/globulin mass ratio [facility] Health Systemerum or plasma anion gap determinationOrdered By: Kris Gross on 19-35-4707Beezq gap [Moles/Vol]Serum or plasma anion gap determination6.0-15.0[facility] Health Systemodium [Moles/volume] in Serum or PlasmaOrdered By: Kris Gross on 31-94-6647Jukrik [Moles/Vol]Sodium [Moles/volume] in Serum or QwprlbQoq186-873HczbeitekSt. Charles HospitalUrea nitrogen [Mass/volume] in Serum or PlasmaOrdered By: Kris Gross on 03-31-2025 Urea nitrogen [Mass/Vol]Urea nitrogen [Mass/volume] in Serum or Plasma7-25 [facility] HospitalGlucose Glucometer (BldC) [Mass/Vol]Ordered By: Blue Talbot on 41-07-2020Ouyaybk [Mass/Vol]Capillary blood glucose measurement by glucometer (mass/volume)[facility] HospitalComment on above:Random Glucose Reference Range is dependent on time and content of last meal. Glucose of more than 200 mg/dL in a nonstressed, ambulatory subject supports the diagnosis of Diabetes Mellitus.Glucose Poct Glucometerson 41-88-9966Cbthchq [Mass/Vol]142 mg/dLNoFormerly [facility], [facility] Physician GroupComment on above:Result Comment: Random Glucose Reference Range is dependent on time and content of last meal. Glucose of more than 200 mg/dL in a nonstressed, ambulatory subject supports the diagnosis of Diabetes Mellitus. PERFORMED BY: [facility] [address] [place] [address] PATHOLOGIST SPECIALTY TRIMMER CORINNE RITTER M.D.Performed By: #### GLULS #### Point of Care testing ,Glucose [Mass/Vol]164 mg/dLNoFormerly [facility], [facility] Physician GroupComment on above: Result Comment: Random Glucose Reference Range is dependent on time and content of last meal. Glucose of more than 200 mg/dL in a nonstressed, ambulatory subject supports the diagnosis of Diabetes Mellitus. PERFORMED BY: [place] [address] PATHOLOGIST SPECIALTY TRIMMER CORINNE RITTER M.D.Performed By: #### MONET, ADDONUAPLUS #### [facility] [address] [place], [place] [id number] USAGlucose Poct Glucometerson 92-18-0397Bsuujup [Mass/Vol]250 mg/dLNormAdventHealth Palm Harbor ER Physician GroupComment on above:Result Comment: Random Glucose Reference Range is dependent on time and content of last meal. Glucose of more than 200 mg/dL in a nonstressed, ambulatory subject supports the diagnosis of Diabetes Mellitus. PERFORMED BY: [place] [address] PATHOLOGIST SPECIALTY TRIMMER CORINNE RITTER M.D.Performed By: #### MONET, ADDONUAPLUS #### [address] [address] USAGlucose [Mass/Vol]219 mg/dLNovictorianoGalion Community Hospitalbradly [facility] Physician GroupComment on above:Result Comment: Random Glucose Reference Range is dependent on time and content of last meal. Glucose of more than 200 mg/dL in a nonstressed, ambulatory subject supports the diagnosis of Diabetes Mellitus. PERFORMED BY: [place] [id number] PATHOLOGIST SPECIALTY TRIMMER CORINNE RITTER M.D.Performed By: #### GLULS #### Point of Care testing ,Glucose [Mass/Vol]155 mg/dLNoFormerly [facility], [facility] Physician GroupComment on above: Result Comment: Random Glucose Reference Range is dependent on time and content of last meal. Glucose of more than 200 mg/dL in a nonstressed, ambulatory subject supports the diagnosis of Diabetes Mellitus. PERFORMED BY: [place] [id number] PATHOLOGIST SPECIALTY TRIMMER CORINNE RITTER M.D.Performed By: #### URMANISH, ADDONUAPLUS #### [facility] [address] [place] [address] JGVMsettrr3Pzp0: Cleaned MeterLee Memorial Hospital Physician GroupComment on above:Result Comment: PERFORMED BY: [place] [address] PATHOLOGIST SPECIALTY TRIMMER CORINNE RITTER M.D.Performed By: #### MONET, ADDONUAPLUS #### [facility] [address] [place] [address] USAGlucose [Mass/Vol]177 mg/dLNoFormerly [facility], [facility] Physician GroupComment on above:Result Comment: Random Glucose Reference Range is dependent on time and content of last meal. Glucose of more than 200 mg/dL in a nonstressed, ambulatory subject supports the diagnosis of Diabetes Mellitus.Performed By: #### MONET, ADDONUAPLUS #### [facility] [address] [place] [address] USANo Panel InformationOrdered By: Blue Talbot on 17-09-9610Kgbflpt Glucose CommentGlu2: cleaned Luther[facility] HospitalGlucose Poct Glucometerson 17-46-8842Ozwheet [Mass/Vol]221 mg/dLNoFormerly [facility], [facility] Physician GroupComment on above:Result Comment: Random Glucose Reference Range is dependent on time and content of last meal. Glucose of more than 200 mg/dL in a nonstressed, ambulatory subject supports the diagnosis of Diabetes Mellitus. PERFORMED BY: [place] [address] PATHOLOGIST SPECIALTY TRIMMER CORINNE RITTER M.D.Performed By: #### URMANISH, ADDONUAPLUS #### [facility] [address] [place] [address] USAGlucose [Mass/Vol]184 mg/dLNoFormerly [facility], [facility] Physician GroupComment on above:Result Comment: Random Glucose Reference Range is dependent on time and content of last meal. Glucose of more than 200 mg/dL in a nonstressed, ambulatory subject supports the diagnosis of Diabetes Mellitus. PERFORMED BY: [address] [place] [address] PATHOLOGIST SPECIALTY TRIMMER CORINNE RITTER M.D.Performed By: #### GLULS #### Point of Care testing ,Glucose [Mass/Vol]216 mg/dLNoFormerly [facility], [facility] Physician GroupComment on above: Result Comment: Random Glucose Reference Range is dependent on time and content of last meal. Glucose of more than 200 mg/dL in a nonstressed, ambulatory subject supports the diagnosis of Diabetes Mellitus. PERFORMED BY: [address] [place] [id number] PATHOLOGIST SPECIALTY TRIMMER CORINNE RITTER M.D.Performed By: #### GLULS #### Point of Care testing ,Glucose [Mass/Vol]143 mg/dLNoFormerly [facility], [facility] Physician GroupComment on above: Result Comment: Random Glucose Reference Range is dependent on time and content of last meal. Glucose of more than 200 mg/dL in a nonstressed, ambulatory subject supports the diagnosis of Diabetes Mellitus. PERFORMED BY: [address] [place] [address] PATHOLOGIST SPECIALTY TRIMMER CORINNE RITTER M.D.Performed By: #### GLULS #### Point of Care testing ,A1C with Estimated Average Gluon 77-52-1514Tfmdolr [Mass/Vol]212 mg/dLNoFormerly [facility], [facility] Physician GroupComment on above:Result Comment: PERFORMED BY: [address] [place] [id number] PATHOLOGIST SPECIALTY TRIMMER CORINNE RITTER M.D.Performed By: #### GLULS #### Point of Care testing ,HbA1c (Bld) [Mass fraction]9.0 %High4.3-5.6The [facility] Physician GroupComment on above:Result Comment: Increased risk for diabetes: 5.7 - 6.4 diabetes: >6.4 glycemic control for adults with diabetes: <7.0Performed By: #### GLULS #### Point of Care testing ,Blood estimated average glucose determination by estimation from glycated hemoglobinOrdered By: Blue Talbot on 70-83-9274Svzxoiv glucose Estimated from glycated hemoglobin (Bld) [Mass/Vol]Glucose mean value [Mass/volume] in Blood Estimated from glycated hemoglobinSt. Charles HospitalCholesterol [Mass/volume] in Serum or PlasmaOrdered By: Blue Talbot on 48-58-3961Nfcliuoerqn [Mass/Vol]Cholesterol [Mass/volume] in Serum or Zuoakh977-227TraslxfytSt. Charles HospitalComment on above:Chol less than 200 mg/dl low riskChol 201-239 mg/dl borderline riskChol 240 mg/dl and greater high riskCholesterol in HDL [Mass/volume] in Serum or PlasmaOrdered By: Blue Tablot on 59-65-0511Tvirqfktbim in HDL [Mass/Vol]Serum or plasma high density lipoprotein (HDL) cholesterol measurement Asm60-47OloomvpzmSt. Charles HospitalComment on above:HDL CHOL ATP-III CLASSIFICATION Cardiovascular RiskHDL > or equal to 60 mg/dL LOWHDL < 40 mg/dL HIGHCholesterol in LDL Calc [Mass/Vol]Ordered By: Blue Talbot on 48-12-8374Dsvfqhmqvwl in LDL [Mass/Vol]Cholesterol in LDL [Mass/volume] in Serum or Plasma by calculation0-St. Charles HospitalComment on above: LDL ATP III CLASSIFICATIONLDL less than 100 mg/dL OptimalLDL 100-129 mg/dL Near or above ielkqbqVWF226-626 mg/dL Borderline highLDL 160-189 mg/dL HighLDL greater than 189 mg/dL Very highCholesterol in LDL [Mass/volume] in Serum or PlasmaOrdered By: Blue Talbot on 98-75-7119Wahfuwfrdvk in LDL [Mass/Vol]Cholesterol in LDL [Mass/volume] in Serum or Plasma0-100St. Charles HospitalComment on above:LDL ATP III CLASSIFICATIONLDL less than 100 mg/dL OptimalLDL 100-129 mg/dL Near or above dhbmalbZFF612-382 mg/dL Borderline highLDL 160-189 mg/dL HighLDL greater than 189 mg/dL Very high Cholesterol in VLDL Calc [Mass/Vol]Ordered By: Blue Talbot on 10-50-5957Llzukkwjkpv in VLDL [Mass/Vol]Cholesterol in VLDL [Mass/volume] in Serum or Plasma by [facility] HospitalComment on above: Test not performedECG 12 lead ECGon 94-71-4300JHG 12 lead ECGCLEVELAND CLINIC [facility]CLID [facility] Main [place] [address] [place] [address] Electrocardiograph Report Signed Patient: Tracie Ramirez MR#: [id number] : 2000 Acct:[id number] Age/Sex: 24 / M ADM Date: 01/05/25 Loc: Room: [address] [place] [address] Type: ADM IN Attending Dr: Blue Talbot [...] Signed By Mónica Rachel MD 0 01/08/25 1633NoFormerly [facility], [facility] Physician GroupFree T4 (Free Thyroxine)on 81-63-1543Pppp T4 [Mass/Vol]0.78 ng/dLNormal0.61-1.12ThGritman Medical Center Physician GroupComment on above:Performed By: #### URDS, ADDONUAPLUS #### [address] [address] USAGlucose Poct Glucometerson 52-92-3366Bnaiegf [Mass/Vol]195 mg/dLNoFormerly [facility], [facility] Physician GroupComment on above:Result Comment: Random Glucose Reference Range is dependent on time and content of last meal. Glucose of more than 200 mg/dL in a nonstressed, ambulatory subject supports the diagnosis of Diabetes Mellitus. PERFORMED BY: [place] [address] PATHOLOGIST SPECIALTY TRIMMER CORINNE RITTER M.D.Performed By: #### URDS, ADDONUAPLUS #### [place] [address] USAGlucose [Mass/Vol]161 mg/dLLee Memorial Hospital Physician GroupComment on above:Result Comment: Random Glucose Reference Range is dependent on time and content of last meal. Glucose of more than 200 mg/dL in a nonstressed, ambulatory subject supports the diagnosis of Diabetes Mellitus. PERFORMED BY: [place] [address] PATHOLOGIST SPECIALTY TRIMMER CORINNE RITTER M.D.Performed By: #### URMANISH, ADDONUAPLUS #### [place] [address] USAGlucose [Mass/Vol]208 mg/dLLee Memorial Hospital Physician GroupComment on above:Result Comment: Random Glucose Reference Range is dependent on time and content of last meal. Glucose of more than 200 mg/dL in a nonstressed, ambulatory subject supports the diagnosis of Diabetes Mellitus. PERFORMED BY: [place] [address] PATHOLOGIST SPECIALTY TRIMMER CORINNE RITTER M.D.Performed By: #### URMANISH, ADDONUAPLUS #### [place] [address] IOFQdesdkc7Xmk2: Cleaned MeterNoFormerly [facility], [facility] Physician GroupComment on above:Result Comment: PERFORMED BY: [place] [address] PATHOLOGIST SPECIALTY TRIMMER CORINNE RITTER M.D.Performed By: #### URMANISH, ADDONUAPLUS #### [address] [place] [address] USAGlucose [Mass/Vol]173 mg/dLNormAdventHealth Palm Harbor ER Physician GroupComment on above:Result Comment: Random Glucose Reference Range is dependent on time and content of last meal. Glucose of more than 200 mg/dL in a nonstressed, ambulatory subject supports the diagnosis of Diabetes Mellitus.Performed By: #### URMANISH, ADDONUAPLUS #### [facility] [address] [place] [address] USAHemoglobin A1c/Hemoglobin.total in BloodOrdered By: Blue Talbot on 46-65-2035FdQ8c (Bld) [Mass fraction]Hemoglobin A1c percentageHigh4.3-5.6FMetroHealth Parma Medical CenterComment on above:Increased risk for diabetes: 5.7 - 6.4diabetes: >6.4glycemic control for adults with diabetes: <7.0LDL Cholesterol Measuredon 33-14-3639RBZ Cholesterol Mwzfdvfi31 mg/dLNormal0-100The [facility] Physician GroupComment on above:Result Comment: LDL ATP III CLASSIFICATION LDL less than 100 mg/dL Optimal LDL 100-129 mg/dL Near or above optimal LDL 130-159 mg/dL Borderline high LDL 160-189 mg/dL High LDL greater than 189 mg/dL Very highPerformed By: #### MONET, ADDONUAPLUS #### [facility] [address] [place] [address] USALipid Panelon 39-38-5057Gluyzuqkhfb [Mass/Vol]169 mg/dL Xfvebi492-957Zmn [facility] Physician GroupComment on above:Result Comment: Chol less than 200 mg/dl low risk Chol 201-239 mg/dl borderline risk Chol 240 mg/dl and greater high riskPerformed By: #### URMANISH, ADDONUAPLUS #### [facility] [address] [place] [address] USACholesterol in HDL [Mass/Vol]20 mg/kWQej99-61Tkw [facility] Physician GroupComment on above:Result Comment: HDL CHOL ATP-III CLASSIFICATION Cardiovascular Risk HDL > or equal to 60 mg/dL LOW HDL < 40 mg/dL HIGHPerformed By: #### URMANISH, ADDONUAPLUS #### [facility] [address] [place] [address] USACholesterol.total/Cholesterol in HDL [Mass ratio]8.5 {ratio}Normal<5.0The [facility] Physician GroupComment on above:Performed By: #### RENETTA HEALYUAPLUS #### [facility] [address] [place] [address] USALDL Cholesterol,Calculated<42Yryrgs3-537Ixg [facility] Physician GroupComment on above:Result Comment: LDL ATP III CLASSIFICATION LDL less than 100 mg/dL Optimal LDL 100-129 mg/dL Near or above optimal LDL 130-159 mg/dL Borderline high LDL 160-189 mg/dL High LDL greater than 189 mg/dL Very highPerformed By: #### MONET, RENETTAUAPLUS #### [facility] [address] [place] [address] USATriglyceride w/Ytlgxp722 mg/dLHigh0-149The [facility] Physician GroupComment on above:Result Comment: TRIG [...] and resulted.Performed By: #### MONET, ADDROSAURAUAPLUS #### [facility] [address] [place] [address] USAVLDL CHOLESTEROLNot performedNormalThe [facility] Physician GroupComment on above:Performed By: #### MONET, ADDROSAURAUAPLUS #### [facility] [address] [place] [address] USASerum or plasma total cholesterol/high density lipoprotein (HDL) cholesterol mass ratOrdered By: Blue Talbot on 01-06-2025 Cholesterol.total/Cholesterol in HDL [Mass ratio]Serum or plasma total cholesterol/high density lipoprotein (HDL) cholesterol mass rat<5.0St. Charles HospitalThyroid Stim Hormone w/Rflxon 75-36-3163Aqcpgvr Stim Hormone w/Rflx6.81 u[iU]/mLHigh0.45-5.33The [facility]ura[facility] Heritage ValleyComment on above:Performed By: #### MONET, ADDONUAPLUS #### [facility] [address] [place] [id number] USAThyrotropin [Units/volume] in Serum or PlasmaOrdered By: Blue Talbot on 05-83-9024LMG QnThyrotropin [Units/volume] in Serum or PlasmaHigh0.45-5.33St. Charles HospitalThyroxine (T4) free [Mass/volume] in Serum or PlasmaOrdered By: Blue Talbot on 01-06-2025 Free T4 [Mass/Vol]Thyroxine (T4) free [Mass/volume] in Serum or Plasma0.61-1.12 [facility] HospitalTriglyceride [Mass/volume] in Serum or Plasma Ordered By: Blue Talbot on 08-47-7457Lyarawgqyoze [Mass/Vol] Triglyceride [Mass/volume] in Serum or PlasmaHigh0-149St. Charles HospitalComment on above:If the triglyceride result is greater than 400, LDLC and related calculations cannot be calculated and resulted.TRIG ATP III CLASSIFICATIONTRIG less than 150 mg/dL NormalTRIG 150-199 mg/dL Borderline highTRIG 200-500 mg/dL High TRIG greater than 500 mg/dL Very highStandard traceable to the Center for Disease Conrtrol and Prevention (CDC) test method. Vitamin D 25 Hydroxy Totalon 91-39-0035Jjqrouc D 25 Hydroxy Total17.3 ng/mLLow 30-100The [facility] Physician GroupComment on above:Result Comment: VITAMIN D STATUS 25(OH)VITAMIN D RANGE (ng/mL) Deficient <20 Insufficient 20 to <30 Sufficient 30 to 100 Reference: Ashley MF,Jodee NC, Marques-Willian GUEVARA, et al. Evaluation,treatment, and prevention of vitamin D deficiency; an Endocrine Society clinical practice guideline. JCEM. 2010; 96(7):1911-30. PERFORMED BY: [facility] [address] [place] [id number] PATHOLOGIST SPECIALTY TRIMMER CORINNE RITTER M.D.Performed By: #### URDS, ADDONUAPLUS #### [facility] [address] [place] [id number] [facility] HEALTH CENTERVitamin D+Metabolites [Mass/volume] in Serum or Plasma Ordered By: Blue Talbot on 26-26-1057Dceczyd D+Metabolites [Mass/Vol] Vitamin D+Metabolites [Mass/volume] in Serum or DqqspcPfc51-301DskyflgwtSt. Charles HospitalComment on above:VITAMIN D STATUS 25(OH)VITAMIN D RANGE (ng/mL) Deficient <20 Insufficient 20 to <48Zwhqggsqgn53 to 100Reference: Ashley MF,Jodee BOB, Christina GUEVARA, et al. Evaluation,treatment, and prevention of vitamin D deficiency; an Endocrine Society clinical practice guideline. JCEM. 2010; 96(7):1911-30.Alanine aminotransferase [Enzymatic activity/volume] in Serum or PlasmaOrdered By: Guillermina Shetty on 38-40-4609GTI [Catalytic activity/Vol]Alanine aminotransferase [Enzymatic activity/volume] in Serum or Plasma7-52St. Charles HospitalAlbumin [Mass/volume] in Serum or Plasma by Bromocresol green (BCG) dye binding methoOrdered By: Guillermina Shetty on 56-85-5390Wguglcb BCG dye [Mass/Vol]Albumin [Mass/volume] in Serum or Plasma by Bromocresol green (BCG) dye binding metho3.5-5.7FMetroHealth Parma Medical CenterAlkaline phosphatase [Enzymatic activity/volume] in Serum or PlasmaOrdered By: Guillermina Shetty on 47-07-5456NDR [Catalytic activity/Vol] Alkaline phosphatase [Enzymatic activity/volume] in Serum or Wdfaap85-121 [facility] HospitalAmphetamine Screen Ql (U)Ordered By: Guillermina Shetty on 81-29-5143Jacfxcgxiwgk Ql (U)Amphetamines screenNegativeSt. Charles HospitalAppearance of UrineOrdered By: Guillermina Shetty on 11-18-5758Wbbzwqqtsz (U)Urine appearanceCleUpper Valley Medical Center Aspartate aminotransferase [Enzymatic activity/volume] in Serum or PlasmaOrdered By: Guillermina Shetty on 83-53-2391PAL [Catalytic activity/Vol]Aspartate aminotransferase [Enzymatic activity/volume] in Serum or Jvryqv20-53MppcmrigoSt. Charles HospitalBacteria [Presence] in Urine by AutomatedOrdered By: Guillermina Shetty on 32-43-6649Jfynctsd Auto Ql (U)Bacteria [Presence] in Urine by AutomatedNone SeenSt. Charles HospitalBarbiturates [Presence] in Urine by Screen methodOrdered By: Guillermina Shetty on 12-48-3594Wnqmqfgvrlmj Screen Ql (U)Barbiturates [Presence] in Urine by Screen methodNegativeSt. Charles HospitalBasophils Auto (Bld) [#/Vol]Ordered By: Guillermina Shetty on 79-08-4649Adpknpcte (Bld) [#/Vol]Automated basophil count0.0-0.2FMetroHealth Parma Medical CenterBasophils/100 WBC Auto (Bld)Ordered By: Guillermina Shetty on 66-75-9894Ittmbgyhy/100 WBC (Bld)Automated basophil %.St. Charles HospitalBenzodiazepines Screen Ql (U)Ordered By: Guillermina Shetty on 63-41-4397Pxtpbzmtpghqizb Ql (U)Benzodiazepines [Presence] in Urine by Screen methodNegativeSt. Charles HospitalBenzoylecgonine [Presence] in Urine by Screen methodOrdered By: Guillermina Shetty on 60-31-1291Xppcehkozikrdsq Screen Ql (U)Benzoylecgonine [Presence] in Urine by Screen methodNegative St. Charles HospitalBilirubin Test strip Ql (U)Ordered By: Guillermina Shetty on 09-84-2884Mblyjizqm Ql (U)Bilirubin.total [Presence] in Urine by Test stripNegativeSt. Charles HospitalBilirubin.total [Mass/volume] in Serum or PlasmaOrdered By: Guillermina Shetty on 97-06-5577Qcxgjsajk [Mass/Vol] Bilirubin.total [Mass/volume] in Serum or PlasmaHigh0.3-1.0St. Charles HospitalComment on above:Samples from patients who have taken Naproxen have shown spurious elevation in Total Bilirubin levels. A metabolite of Naproxen, O-desmethylnaproxen, has been shown to interfere with the Iza-Kayleen method for measuring Total Bilirubin.Calcium [Mass/volume] in Serum or PlasmaOrdered By: Guillermina Shetty on 52-52-7439Jgzkyja [Mass/Vol] Calcium [Mass/volume] in Serum or Plasma8.6-10.3FMetroHealth Parma Medical CenterCannabinoids [Presence] in Urine by Screen methodOrdered By: Guillermina Shetty on 10-51-2010Evshpdthdnie Screen Ql (U)Cannabinoids [Presence] in Urine by Screen methodHighNegativeSt. Charles HospitalComment on above: These are unconfirmed results and should not be used for legal purposes. Drug Cut-Off Concentration: AMPH 1000 ng/mL KATHLEEN 200 ng/mL CARMEN 200 ng/mL COCM 300 ng/mL OP 300 ng/mL PCP 25 ng/mL THC 20 ng/mLCarbon dioxide, total [Moles/volume] in Serum or PlasmaOrdered By: Guillermina Shetty on 63-99-9717CV6 [Moles/Vol] Carbon dioxide, total [Moles/volume] in Serum or Uvohvg83.0-31.0St. Charles HospitalChloride [Moles/volume] in Serum or PlasmaOrdered By: Guillermina Shetty on 87-05-3022Litddgtk [Moles/Vol]Chloride [Moles/volume] in Serum or Wwrvss59-739UnanftzqpSt. Charles HospitalColor Auto (U)Ordered By: Guillermina Shetty on 76-17-5677Izopn (U)Color of Urine by AutoYellowSt. Charles HospitalComprehensive Metabolic Panelon 02-20-9619Todmtnf [Mass/Vol]4.8 g/dLNormal3.5-5.7The [facility] Physician GroupComment on above: Performed By: #### URMANISH, ADDONUAPLUS #### [facility] [address] [place] [address] USAAlbumin/Globulin [Mass ratio]2.0 {ratio}NormalThe [facility] Physician GroupComment on above:Performed By: #### MONET, ADDONUAPLUS #### [facility] [address] [place] [address] USAALP [Catalytic activity/Vol]34 U/SEbtqor61-409Obq [facility] Physician GroupComment on above:Performed By: #### MONET, ADDONUAPLUS #### [facility] [address] [place] [address] USAALT [Catalytic activity/Vol]13 U/LNormal7-52The [facility] Physician GroupComment on above:Performed By: #### MONET, ADDONUAPLUS #### [facility] [address] [place] [address] USAAnion gap [Moles/Vol]10.8 mmol/LNormal6.0-15.0The [facility] Physician GroupComment on above:Performed By: #### MONET, ADDONUAPLUS #### [place] [id number] USAAST [Catalytic activity/Vol]17 U/CAtokqh84-87Mdz [facility] Physician GroupComment on above:Performed By: #### MONET, ADDONUAPLUS #### [place] [id number] USABilirubin [Mass/Vol]1.3 mg/dLHigh0.3-1.0The [facility] Physician GroupComment on above:Result Comment: Samples from patients who have taken Naproxen have shown spurious elevation in Total Bilirubin levels. A metabolite of Naproxen, O-desmethylnaproxen, has been shown to interfere with the Jenaleik-Kallief method for measuring Total Bilirubin.Performed By: #### MONET, ADDONUAPLUS #### [place] [id number] USACalcium [Mass/Vol]9.5 mg/dLNormal8.6-10.3The [facility] Physician GroupComment on above:Performed By: #### MONET, ADDONUAPLUS #### [address] [address] USAChloride [Moles/Vol]103 mmol/KNurcvp95-005Qic [facility] Physician GroupComment on above:Performed By: #### MONET, ADDONUAPLUS #### [address] [address] USACO2 [Moles/Vol]29.4 mmol/DJpxknb08.0-31.0The [facility] Physician GroupComment on above:Performed By: #### MONET, ADDONUAPLUS #### [facility] [address] [place] [address] USACreatinine [Mass/Vol]1.05 mg/dLNormal0.70-1.30The [facility] Physician GroupComment on above:Performed By: #### MONET, ADDONUAPLUS #### [facility] [address] [place] [address] USACreatinine Clr Calc Vbifgvrg472.37NormAdventHealth Palm Harbor ER Physician GroupComment on above:Result Comment: PERFORMED BY: [place] [address] PATHOLOGIST SPECIALTY TRIMMER CORINNE RITTER M.D.Performed By: #### MONET, ADDONUAPLUS #### [place] [address] USAGFR/1.73 sq M.predicted MDRD (S/P/Bld) [Vol rate/Area] mL/min/{1.73_m2}NormalThe [facility] Physician GroupComment on above:Performed By: #### MONET, ADDONUAPLUS #### [facility] [address] [place] [address] USAGlobulin (S) [Mass/Vol]2.4 g/dLLee Memorial Hospital Physician GroupComment on above:Performed By: #### MONET, ADDONUAPLUS #### [place] [address] USAGlucose [Mass/Vol]185 mg/eCTecp20-469Oyc [facility] Physician GroupComment on above:Result Comment: Random Glucose Reference Range is dependent on time and content of last meal. Glucose of more than 200 mg/dL in a nonstressed, ambulatory subject supports the diagnosis of Diabetes Mellitus. ADA recommended reference rangePerformed By: #### MONET, ADDONUAPLUS #### [facility] [address] [place] [address] USAPotassium [Moles/Vol]4.2 mmol/LNormal3.5-5.1The [facility] Physician GroupComment on above:Performed By: #### MONET, ADDONUAPLUS #### [facility] [address] [place] [address] USAProtein [Mass/Vol]7.2 g/dLNormal6.4-8.9The [facility] Physician GroupComment on above:Performed By: #### URDS, ADDONUAPLUS #### [facility] [address] [place] [address] USASodium [Moles/Vol]139 mmol/BHzqaor185-687Oql [facility] Physician GroupComment on above:Performed By: #### URDS, ADDONUAPLUS #### [facility] [address] [place] [address] USAUrea nitrogen [Mass/Vol]16 mg/dLNormal7-25The [facility] Physician GroupComment on above:Performed By: #### URDS, ADDONUAPLUS #### [place] [address] USACreatinine [Mass/volume] in Serum or PlasmaOrdered By: Guillermina Shetty on 00-87-6327Gqniskxyjx [Mass/Vol]Creatinine [Mass/volume] in Serum or Plasma0.70-1.30St. Charles HospitalDipstick and Microscopicon 74-43-1495Uvrmbezrcc (U)ClearNormalClearThe [facility] Physician GroupComment on above:Order Comment: Name Collection Type:: Clean-Voided MidstreamPerformed By: #### URDS, ADDONUAPLUS #### [place] [address] USABacteria,UrineNone SeenNormalNone SeenThe [facility] Hospital Physician GroupComment on above:Order Comment: Name Collection Type:: Clean- Voided MidstreamPerformed By: #### URDS, ADDONUAPLUS #### [place] [address] USABilirubin,UrineNegativeNormalNegativeThe [facility] Physician GroupComment on above:Order Comment: Name Collection Type:: Clean- Voided MidstreamPerformed By: #### URDS, ADDONUAPLUS #### [place] [address] USAColor (U)YellowNormalYellowThe [facility] Comment on above:Order Comment: Name Collection Type:: Clean-Voided Midstream Performed By: #### URDS, ADDONUAPLUS #### [place] [address] USAGlucose Ql (U)NormalNormalNormalThe [facility] Physician GroupComment on above:Order Comment: Name Collection Type:: Clean-Voided MidstreamPerformed By: #### URDS, ADDONUAPLUS #### [place] [address] USAHyaline Casts,UrineNoneNormal0-8The [facility] Hospital Physician GroupComment on above:Order Comment: Name Collection Type:: Clean-Voided MidstreamPerformed By: #### URDS, ADDONUAPLUS #### [place] [address] USAKetones Ql (U)NegativeNormalNegativeThe [facility] Physician GroupComment on above:Order Comment: Name Collection Type:: Clean- Voided MidstreamPerformed By: #### URDS, ADDONUAPLUS #### [place] [address] USALeukocyte esterase Test strip Ql (U)NegativeNormalNegative The [facility] Hospital Physician GroupComment on above:Order Comment: Name Collection Type:: Clean-Voided MidstreamPerformed By: #### URDS, ADDONUAPLUS #### [place] [address] USAMucus,Urine2+Critically abnormalThe [facility] Hospital Physician GroupComment on above:Order Comment: Name Collection Type:: Clean-Voided MidstreamResult Comment: PERFORMED BY: [place] [address] PATHOLOGIST SPECIALTY TRIMMER CORINNE RITTER M.D.Performed By: #### URDS, ADDONUAPLUS #### [place] [address] USANitrite,UrineNegativeNormalNegativeAdventhealth Timberridge Er Physician GroupComment on above:Order Comment: Name Collection Type:: Clean-Voided MidstreamPerformed By: #### URDS, ADDONUAPLUS #### [place] [address] USAOccult Blood,UrineNegativeNormalNegativeThe [facility] Physician GroupComment on above:Order Comment: Name Collection Type:: Clean- Voided MidstreamResult Comment: PERFORMED BY: [place] [address] PATHOLOGIST SPECIALTY TRIMMER CORINNE RITTER M.D.Performed By: #### URDS, ADDONUAPLUS #### [place] [address] USApH (U)6.0 [pH]Normal5.0-9.0[facility] Comment on above:Order Comment: Name Collection Type:: Clean-Voided Midstream Performed By: #### URDS, ADDONUAPLUS #### [place] [address] USAProtein (U) [Mass/Vol]20 mg/dLHighNegativeThe [facility] Hospital Physician GroupComment on above:Order Comment: Name Collection Type:: Clean- Voided MidstreamPerformed By: #### URDS, ADDONUAPLUS #### [place] [address] USARBC,Nbunp9-4Ieomni2-7Yzt [facility] Physician GroupComment on above:Order Comment: Name Collection Type:: Clean-Voided MidstreamPerformed By: #### URDS, ADDONUAPLUS #### [place] [address] USASpecificy Quanah,Urine1.378Kuhxat7.001-1.030The [facility] Physician GroupComment on above:Order Comment: Name Collection Type:: Clean- Voided MidstreamPerformed By: #### URDS, ADDONUAPLUS #### [place] [address] USASquamous Epithelial Cell,Hvpbt1-0Wwggca0-9Geg [facility] Physician GroupComment on above:Order Comment: Name Collection Type:: Clean- Voided MidstreamPerformed By: #### URDS, ADDONUAPLUS #### [place] [address] USAUrobilinogen,UrineNormalNormalNormalThe [facility] Physician GroupComment on above:Order Comment: Name Collection Type:: Clean- Voided MidstreamPerformed By: #### URDS, ADDONUAPLUS #### [place] [address] USAWBC,Qqsop6-6Wuqwnl3-3Qon [facility] Physician GroupComment on above:Order Comment: Name Collection Type:: Clean-Voided MidstreamPerformed By: #### URDS, ADDONUAPLUS #### [place] [address] USADrug Screen,Urineon 83-07-1348Bpaqeoqncap Screen,Urine NegativeNormalNegativeThe [facility] Physician GroupComment on above:Performed By: #### URDS, ADDONUAPLUS #### [place] [address] USABarbiturate Screen,UrineNegativeNormalNegativeThe [facility] Physician GroupComment on above:Performed By: #### URDS, ADDONUAPLUS #### [place] [address] USABenzodiazepines Screen,UrineNegativeNormalNegativeThe [facility] Hospital Physician GroupComment on above:Performed By: #### URDS, ADDONUAPLUS #### [place] [address] USACannabinoid Screen,UrinePositiveHighNegativeThe [facility] Hospital Physician GroupComment on above:Result Comment: These are unconfirmed results and should not be used for legal purposes. Drug Cut-Off Concentration: AMPH 1000 ng/mL KATHLEEN 200 ng/mL CARMEN 200 ng/mL COCM 300 ng/mL OP 300 ng/mL PCP 25 ng/mL THC 20 ng/mL PERFORMED BY: [place] [address] PATHOLOGIST SPECIALTY TRIMMER CORINNE IRTTER M.D.Performed By: #### URDS, ADDONUAPLUS #### [facility] [address] [place] [address] USACocaine Screen,UrineNegativeNormalNegativeThe [facility] Hospital Physician GroupComment on above:Performed By: #### URDS, ADDONUAPLUS #### [facility] [address] [place] [address] USAOpiate Screen,UrineNegativeNormalNegativeThe [facility] Physician GroupComment on above:Performed By: #### URDS, ADDONUAPLUS #### [facility] [address] [place] [address] USAPhencyclidine Screen,UrineNegativeNormalNegativeThe [facility] Hospital Physician GroupComment on above:Performed By: #### URDS, ADDONUAPLUS #### [facility] [address] [place] [address] USAEosinophils Auto (Bld) [#/Vol]Ordered By: Guillermina Shetty on 85-08-4830Kuqcdmavjrh (Bld) [#/Vol]Automated eosinophil count0.0-0.45 [facility] HospitalEosinophils/100 WBC Auto (Bld)Ordered By: Guillermina Shetty on 37-89-5659Ebvvhymfhrf/100 WBC (Bld)Automated eosinophil %. [facility] HospitalEpithelial cells.squamous [#/area] in Urine sediment by Automated countOrdered By: Guillermina Shetty on 03-77-7343Lbfdpaeomu cells.squamous Auto (Urine sed) [#/Area]Epithelial cells.squamous [#/area] in Urine sediment by Automated count0-2FMetroHealth Parma Medical CenterErythrocyte distribution width Auto (RBC) [Ratio]Ordered By: Guillermina Shetty on 01-05-2025 Erythrocyte distribution width (RBC) [Ratio]Erythrocyte distribution width [Ratio] by Automated count12.0-14.8St. Charles HospitalErythrocyte morphology finding [Identifier] in BloodOrdered By: Guillermina Shetty on 89-52-5991WWT morphology finding Nom (Bld)RBC morphologyNormalSt. Charles HospitalErythrocytes [#/area] in Urine sediment by Automated countOrdered By: Guillermina Shetty on 60-49-0659VMT Auto (Urine sed) [#/Area]Erythrocytes [#/area] in Urine sediment by Automated count0-4FMetroHealth Parma Medical CenterEthanol [Mass/volume] in Serum or PlasmaOrdered By: Guillermina Shetty on 23-09-0440Qkdsukp [Mass/Vol]Ethanol [Mass/volume] in Serum or PlasmaSt. Charles HospitalComment on above:Test not performedEthyl Alcohol Profile on 77-02-6283Llxjtza [Mass/Vol]mg/dLNoFormerly [facility], [facility] Physician [facility] HospitalComment on above:Performed By: #### URDS, ADDONUAPLUS #### [facility] [address] [place] [address] USAPercent EthanolNot performedNoMetroHealth Parma Medical CenterComment on above:Result Comment: PERFORMED BY: [place] [address] PATHOLOGIST SPECIALTY TRIMMER CORINNE RITTER M.D.Performed By: #### MONET, ADDONUAPLUS #### [facility] [address] [place] [address] USAGlobulin Calc (S) [Mass/Vol]Ordered By: Guillermina Shetty on 48-58-9643Sihidcbq (S) [Mass/Vol]Serum globulin measurement by calculation (mass/volume)[facility]. Charles HospitalGlucose Glucometer (BldC) [Mass/Vol]Ordered By: Guillermina Shetty on 56-39-1069Xvagmkb [Mass/Vol]Capillary blood glucose measurement by glucometer (mass/volume)[facility]. Charles HospitalComment on above:Random Glucose Reference Range is dependent on time and content of last meal. Glucose of more than 200 mg/dL in a nonstressed, ambulatory subject supports the diagnosis of Diabetes Mellitus.Glucose Poct Glucometerson 23-45-6616Uzqnnfj4Xju8: Cleaned MeterNoMetroHealth Parma Medical CenterComment on above:Result Comment: PERFORMED BY: [address] [address] PATHOLOGIST SPECIALTY TRIMMER CORINNE RITTER M.D.Performed By: #### MONET, ADDONUAPLUS #### [facility] [address] [place] [address] USAGlucose [Mass/Vol]185 mg/dLNoFormerly [facility], [facility] Physician GroupComment on above:Result Comment: Random Glucose Reference Range is dependent on time and content of last meal. Glucose of more than 200 mg/dL in a nonstressed, ambulatory subject supports the diagnosis of Diabetes Mellitus.Performed By: #### URMANISH, ADDONUAPLUS #### [facility] [address] [place] [address] USAGlucose [Mass/Vol]143 mg/dLNoFormerly [facility], [facility] Physician GroupComment on above:Result Comment: Random Glucose Reference Range is dependent on time and content of last meal. Glucose of more than 200 mg/dL in a nonstressed, ambulatory subject supports the diagnosis of Diabetes Mellitus. PERFORMED BY: [place] [address] PATHOLOGIST SPECIALTY TRIMMER CORINNE RITTER M.D.Performed By: #### MONET, ADDONUAPLUS #### [facility] [address] [place] [id number] USAGlucose [Mass/volume] in Serum or PlasmaOrdered By: Guillermina Shetty on 29-04-4500Dxpdwod [Mass/Vol]Glucose [Mass/volume] in Serum or CnmcwxCxya86-478RtphocwgiSt. Charles HospitalComment on above:ADA recommended reference rangeRandom Glucose Reference Range is dependent on time and content of last meal. Glucose of more than 200 mg/dL in a nonstressed, ambulatory subject supports the diagnosisof Diabetes Mellitus.Glucose [Mass/volume] in Urine by Test stripOrdered By: Guillermina Shetty on 01-05-2025 Glucose Test strip (U) [Mass/Vol]Glucose [Mass/volume] in Urine by Test strip NormalSt. Charles HospitalHematocrit Auto (Bld) [Volume fraction] Ordered By: Guillermina Shetty on 42-78-0508Mepdoduuma (Bld) [Volume fraction] Hematocrit [Volume Fraction] of Blood by Automated count38.8-50.0St. [facility] HospitalHemoglobin Test strip Ql (U)Ordered By: Guillermina Shetty on 15-06-7434Dojykiuivr Ql (U)Hemoglobin [Presence] in Urine by Test strip NegativeSt. Charles HospitalHemoglobin [Mass/volume] in Blood Ordered By: Guillermina Shetty on 48-81-7841Edkqwkdtug (Bld) [Mass/Vol]Hemoglobin [Mass/volume] in Blood13.0-17.0St. [facility] HospitalHyaline casts [#/area] in Urine sediment by Automated countOrdered By: Guillermina Shetty on 36-85-1027Mxxujnb casts Auto (Urine sed) [#/Area]Hyaline casts [#/area] in Urine sediment by Automated count0-8St. [facility] HospitalKetones Test strip Ql (U)Ordered By: Guillermina Shetty on 14-61-0842Zgdrxuf Ql (U)Ketones [Presence] in Urine by Test stripNegativeSt. Charles Hospital Leukocyte esterase [Presence] in Urine by Test stripOrdered By: Guillermina Shetty on 27-99-8177Rmjweqgkn esterase Test strip Ql (U)Leukocyte esterase [Presence] in Urine by Test stripNegativeSt. Charles HospitalLeukocytes [#/area] in Urine sediment by Automated countOrdered By: Guillermina Shetty on 52-84-2384QPT Auto (Urine sed) [#/Area]Leukocytes [#/area] in Urine sediment by Automated count0-4FMetroHealth Parma Medical CenterLeukocytes [#/volume] corrected for nucleated erythrocytes in Blood by Automated counOrdered By: Guillermina Shetty on 62-68-9573UFW corrected for nucl RBC Auto (Bld) [#/Vol] Leukocytes [#/volume] corrected for nucleated erythrocytes in Blood by Automated coun4.1-10.5FMetroHealth Parma Medical CenterLymphocytes Auto (Bld) [#/Vol] Ordered By: Guillermina Shetty on 05-09-1058Gpqggwstppx (Bld) [#/Vol]Lymphocytes [#/volume] in Blood by Automated count1.00-4.8[facility] Lymphocytes/100 WBC Auto (Bld)Ordered By: Guillermina Shetty on 01-05-2025 Lymphocytes/100 WBC (Bld)Lymphocytes/100 leukocytes in Blood by Automated count. St. Charles HospitalMCH Auto (RBC) [Entitic mass]Ordered By: Guillermina Shetty on 07-86-6310MOM (RBC) [Entitic mass]MCH [Entitic mass] by Automated count27.5-35.2FTriHealthHC Auto (RBC) [Mass/Vol]Ordered By: Guillermina Shetty on 44-57-4597JWYU (RBC) [Mass/Vol]MCHC [Mass/volume] by Automated count32.5-35.6FMetroHealth Parma Medical CenterMCV Auto (RBC) [Entitic vol]Ordered By: Guillermina Shetty on 82-00-9208WTM (RBC) [Entitic vol]MCV [Entitic volume] by Automated count83.5-101St. Charles HospitalMonocyte distribution width [Entitic volume] in Blood by Automated Ordered By: Giullermina Shetty on 03-48-0418Tvyzcrhc distribution width Auto (Bld) [Entitic vol]Monocyte distribution width [Entitic volume] in Blood by Automated 0.00-20.00St. Charles HospitalMonocytes Auto (Bld) [#/Vol]Ordered By: Guillermina Shetty on 37-04-2908Iouycuxpj (Bld) [#/Vol]Automated blood monocyte count0.0-0.8St. Charles HospitalMonocytes/100 WBC Auto (Bld) Ordered By: Guillermina Shetty on 76-46-3225Mmgzdvixr/100 WBC (Bld)Automated monocyte %.St. Charles HospitalMucus [Presence] in Urine by AutomatedOrdered By: Guillermina Shetty on 12-40-8522Gcxjf Auto Ql (U)Mucus [Presence] in Urine by AutomatedAbnormalSt. Charles Hospital Neutrophils Auto (Bld) [#/Vol]Ordered By: Guillermina Shetty on 01-05-2025 Neutrophils (Bld) [#/Vol]Neutrophils [#/volume] in Blood by Automated count 1.8-7.7FMetroHealth Parma Medical CenterNeutrophils/100 WBC Auto (Bld)Ordered By: Guillermina Shetty on 80-04-6906Anihlbhduni/100 WBC (Bld)Automated neutrophil % .[facility]. Charles HospitalNitrite Test strip Ql (U)Ordered By: Guillermina Shetty on 80-43-7577Bxdaznm Ql (U)Nitrite [Presence] in Urine by Test strip NegativeSt. Charles HospitalNo Panel InformationOrdered By: Guillermina Shetty on 35-28-1236Kbleanhbv GFR (CKD-EPI)> 60.0 mL/MinSt. Charles HospitalPharmacy Creatinine Clearance (Ijod613.37St. [facility] HospitalNucleated erythrocytes [Presence] in Blood by Automated countOrdered By: Guillermina Shetty on 20-61-9721Whumslaie RBC Auto Ql (Bld) Nucleated erythrocytes [Presence] in Blood by Automated count0-0.5FMetroHealth Parma Medical CenterOpiates [Presence] in Urine by Screen methodOrdered By: Guillermina Shetty on 55-19-7991Cmvaipq Screen Ql (U)Opiates [Presence] in Urine by Screen methodNegativeSt. Charles HospitalPhencyclidine Screen Ql (U)Ordered By: Guillermina Shetty on 40-67-8569Yezuxzzptcani Ql (U)Phencyclidine [Presence] in Urine by Screen methodNegativeSt. Charles Hospital Platelet adequacy [Presence] in Blood by Light microscopyOrdered By: Guillermina Shetty on 00-61-9102Uleygnxhi LM Ql (Bld)Platelet adequacy [Presence] in Blood by Light microscopyNormalSt. Charles HospitalPlatelet mean volume Auto (Bld) [Entitic vol]Ordered By: Guillermina Shetty on 07-84-1416Fdezuoew mean volume (Bld) [Entitic vol]Platelet mean volume [Entitic volume] in Blood by Automated count6.6-10.1FMetroHealth Parma Medical CenterPlatelet morphology finding [Identifier] in BloodOrdered By: Guillermina Shetty on 07-56-8312Saslvwsy morphology finding Nom (Bld)Platelet morphology finding [Identifier] in Blood NormalSt. Charles HospitalPlatelets Auto (Bld) [#/Vol]Ordered By: Guillermina Shetty on 14-65-2430Ybfwbsxbt (Bld) [#/Vol]Platelets [#/volume] in Blood by Automated fttba316-003TjbznkfysSt. Charles HospitalPotassium [Moles/volume] in Serum or PlasmaOrdered By: Guillermina Shetty on 01-05-2025 Potassium [Moles/Vol]Potassium [Moles/volume] in Serum or Plasma3.5-5.1FMetroHealth Parma Medical CenterProtein Test strip (U) [Mass/Vol]Ordered By: Guillermina Shetty on 06-33-9498Gtmyppe (U) [Mass/Vol]Protein [Mass/volume] in Urine by Test stripHighNegativeSt. Charles HospitalProtein [Mass/volume] in Serum or PlasmaOrdered By: Guillermina Shetty on 74-98-1865Nwloziu [Mass/Vol] Protein [Mass/volume] in Serum or Plasma6.4-8.9[facility] RBC Auto (Bld) [#/Vol]Ordered By: Guillermina Shetty on 11-69-7304OYV (Bld) [#/Vol] Erythrocytes [#/volume] in Blood by Automated count3.90-5.60[facility] Health Systemcan and CBCon 16-61-2845Xmoojiasr (Bld) [#/Vol]0.0 10*3/uLNormal 0.0-0.2The [facility] Physician GroupComment on above:Performed By: #### URDS, ADDONUAPLUS #### [facility] [address] [place] [address] USABasophils/100 WBC (Bld)0.6 %Normal.The [facility] Physician GroupComment on above:Performed By: #### URDS, ADDONUAPLUS #### [facility] [address] [place] [address] USAEosinophils (Bld) [#/Vol]0.1 10*3/uLNormal0.0-0.45The [facility] Physician GroupComment on above:Performed By: #### URDS, ADDONUAPLUS #### [facility] [address] [place] [address] USAEosinophils/100 WBC (Bld)0.8 %Normal.The [facility] Physician GroupComment on above:Performed By: #### URDS, ADDONUAPLUS #### [facility] [address] [place] [address] USAErythrocyte distribution width (RBC) [Ratio]13.9 %Normal 12.0-14.8The [facility] Physician GroupComment on above:Performed By: #### URDS, ADDONUAPLUS #### [facility] [address] [place] [address] USAHematocrit (Bld) [Volume fraction]47.3 %Jecpya40.8-50.0The [facility] Physician GroupComment on above:Performed By: #### URDS, ADDONUAPLUS #### [facility] [address] [place] [address] USAHemoglobin (Bld) [Mass/Vol]16.8 g/mOCnknie57.0-17.0The [facility] Physician GroupComment on above:Performed By: #### URDS, ADDONUAPLUS #### [place] [address] USALymphocytes (Bld) [#/Vol]1.9 10*3/uLNormal1.00-4.8The [facility] Physician GroupComment on above:Performed By: #### URDS, ADDONUAPLUS #### [place] [address] USALymphocytes/100 WBC (Bld)24.7 %Normal.The [facility] Physician GroupComment on above:Performed By: #### URDS, ADDONUAPLUS #### [facility] [address] [place] [address] USAMCH (RBC) [Entitic mass]31.2 tuZmyepb73.5-35.2The [facility] Physician GroupComment on above:Performed By: #### URDS, ADDONUAPLUS #### [facility] [address] [place] [address] USAMCV (RBC) [Entitic vol]87.7 zVQahvny76.5-101The [facility] Physician GroupComment on above:Performed By: #### URDS, ADDONUAPLUS #### [facility] [address] [place] [address] USAMean Corpuscular HGB Conc35.6 g/vEXerkpd11.5-35.6The [facility] Physician GroupComment on above:Performed By: #### URMANISH, ADDONUAPLUS #### [place] [address] USAMonocytes (Bld) [#/Vol]0.5 10*3/uLNormal0.0-0.8The [facility] Physician GroupComment on above:Performed By: #### URMANISH, ADDONUAPLUS #### [place] [address] USAMonocytes/100 WBC (Bld)16.04 %Normal0.00-20.00The [facility] Physician GroupComment on above:Performed By: #### MONET, ADDONUAPLUS #### [place] [address] USAMonocytes/100 WBC (Bld)5.7 %Normal.The [facility] Physician GroupComment on above:Performed By: #### MONET, ADDONUAPLUS #### [place] [address] USANeutrophils (Bld) [#/Vol]5.4 10*3/uLNormal1.8-7.7The [facility] Physician GroupComment on above:Performed By: #### MONET, ADDONUAPLUS #### [place] [address] USANeutrophils/100 WBC (Bld)68.2 %Normal.The [facility] Physician GroupComment on above:Performed By: #### MONET, ADDONUAPLUS #### [place] [address] USANRBC%0.2 /100{WBC}Normal0-0.5The [facility] Comment on above:Performed By: #### MONET, ADDONUAPLUS #### [place] [address] USAPlatelet EstimateNormalNormalNormalThe [facility] Hospital Physician GroupComment on above:Performed By: #### MONET, ADDONUAPLUS #### [address] [place] [address] USAPlatelet mean volume (Bld) [Entitic vol]8.1 fLNormal 6.6-10.1The [facility] Physician GroupComment on above:Performed By: #### MONET ADDONUAPLUS #### [place] [address] USAPlatelet MorphologyNormalNormalNormalThe [facility] Physician GroupComment on above:Result Comment: PERFORMED BY: [place] [address] PATHOLOGIST SPECIALTY TRIMMER CORINNE RITTER M.D.Performed By: #### MONET ADDONUAPLUS #### [place] [address] USAPlatelets (Bld) [#/Vol]159 10*3/fHWtxjuz563-542Usd [facility] Physician GroupComment on above:Performed By: #### MONET, ADDONUAPLUS #### [place] [address] USARBC (Bld) [#/Vol]5.40 10*6/uLNormal3.90-5.60The [facility] Physician GroupComment on above:Performed By: #### MONET ADDONUAPLUS #### [place] [address] USARBC morphology finding Nom (Bld)NormalNormalNormGalion Community Hospitale [facility] Physician GroupComment on above:Performed By: #### MONET, ADDONUAPLUS #### [place] [address] USAWBC (Bld) [#/Vol]7.9 10*3/uLNormal4.1-10.5The [facility] Physician GroupComment on above:Performed By: #### MONET ADDONUAPLUS #### [place] [address] USASerum or plasma albumin/globulin mass ratioOrdered By: Guillermina Shetty on 70-08-3623Qjthsmn/Globulin [Mass ratio]Serum or plasma albumin/globulin mass ratioFirelands Regional Medical CenterSerum or plasma anion gap determinationOrdered By: Guillermina Shetty on 78-87-8277Yngof gap [Moles/Vol]Serum or plasma anion gap determination6.0-15.0[facility]zer Health Systemodium [Moles/volume] in Serum or PlasmaOrdered By: Guillermina Shetty on 05-48-7344Pyzrgu [Moles/Vol]Sodium [Moles/volume] in Serum or Plasma 136-145Holzer Health Systempecific gravity Test strip (U) [Rel density]Ordered By: Guillermina Shetty on 82-70-9496Kmjziyij gravity (U) [Rel density]Specific gravity of Urine by Test strip1.001-1.030St. Charles HospitalUrea nitrogen [Mass/volume] in Serum or PlasmaOrdered By: Guillermina Shetty on 53-75-8568Fhjs nitrogen [Mass/Vol]Urea nitrogen [Mass/volume] in Serum or Plasma7-25St. Charles HospitalUrobilinogen Test strip (U) [Mass/Vol]Ordered By: Guillermina Shetty on 41-15-3866Byxqfwsadowv (U) [Mass/Vol] Urobilinogen [Mass/volume] in Urine by Test stripNoSelect Medical Specialty Hospital - ColumbusWBC Auto (Bld) [#/Vol]Ordered By: Guillermina Shetty on 52-83-7976KQN (Bld) [#/Vol]Leukocytes [#/volume] in Blood by Automated count4.1-10.5FMetroHealth Parma Medical CenterpH Test strip (U)Ordered By: Guillermina Shetty on 18-47-3429sA (U)pH of Urine by Test strip5.0-9.0[facility]. [facility] HospitalCapillary blood glucose measurement by glucometer (mass/volume)Ordered By: Blue Talbot on 06-45-1247Wvalmxr [Mass/Vol]329 mg/dLNoSelect Medical Specialty Hospital - ColumbusComment on above:Random Glucose Reference Range is dependent [...] the diagnosis of Diabetes Mellitus. PERFORMED BY: [place] [id number] PATHOLOGIST SPECIALTY TRIMMER BEKAH FREED M.D.Performed By: #### GLULS #### Point of Care testing ,Glucose Poct Glucometerson 67-72-6563Oxwnusn7Mgb5: Cleaned MeterLee Memorial Hospital Physician GroupComment on above:Result Comment: PERFORMED BY: [place] [address] PATHOLOGIST SPECIALTY TRIMMER BEKAH FREED M.D.Performed By: #### GLULS #### Point of Care testing ,Glucose [Mass/Vol]336 mg/dLLee Memorial Hospital Physician GroupComment on above: Result Comment: Random Glucose Reference Range is dependent on time and content of last meal. Glucose of more than 200 mg/dL in a nonstressed, ambulatory subject supports the diagnosis of Diabetes Mellitus.Performed By: #### GLULS #### Point of Care testing ,Glucose [Mass/Vol]261 mg/dLLee Memorial Hospital Physician GroupComment on above: Result Comment: Random Glucose Reference Range is dependent on time and content of last meal. Glucose of more than 200 mg/dL in a nonstressed, ambulatory subject supports the diagnosis of Diabetes Mellitus. PERFORMED BY: [address] [address] PATHOLOGIST SPECIALTY TRIMMER BEKAH FREED M.D.Performed By: #### GLULS #### Point of Care testing ,No Panel InformationOrdered By: Blue Talbot on 56-06-4184Hkubfzk Glucose CommentGlu2: cleaned [facility] HospitalGlucose Poct Glucometerson 58-58-0716Ruuzybx9Tvr4: Cleaned [facility] Physician GroupComment on above:Result Comment: PERFORMED BY: [address] [address] PATHOLOGIST SPECIALTY TRIMMER BEKAH FREED M.D.Performed By: #### GLULS #### Point of Care testing ,Glucose [Mass/Vol]337 mg/dLLee Memorial Hospital Physician GroupComment on above: Result Comment: Random Glucose Reference Range is dependent on time and content of last meal. Glucose of more than 200 mg/dL in a nonstressed, ambulatory subject supports the diagnosis of Diabetes Mellitus.Performed By: #### GLULS #### Point of Care testing ,Mtwxvsx1Kdw8: Cleaned MeterLee Memorial Hospital Physician GroupComment on above: Result Comment: PERFORMED BY: [place] [address] PATHOLOGIST SPECIALTY TRIMMER BEKAH FREED M.D.Performed By: #### GLULS #### Point of Care testing ,Glucose [Mass/Vol]307 mg/dLLee Memorial Hospital Physician GroupComment on above: Result Comment: Random Glucose Reference Range is dependent on time and content of last meal. Glucose of more than 200 mg/dL in a nonstressed, ambulatory subject supports the diagnosis of Diabetes Mellitus.Performed By: #### GLULS #### Point of Care testing ,Evofvej1Ddv7: Cleaned MeterLee Memorial Hospital Physician GroupComment on above: Result Comment: PERFORMED BY: [place] [address] PATHOLOGIST SPECIALTY TRIMMER BEKAH FREED M.D.Performed By: #### GLULS #### Point of Care testing ,Glucose [Mass/Vol]385 mg/dLLee Memorial Hospital Physician GroupComment on above: Result Comment: Random Glucose Reference Range is dependent on time and content of last meal. Glucose of more than 200 mg/dL in a nonstressed, ambulatory subject supports the diagnosis of Diabetes Mellitus.Performed By: #### GLULS #### Point of Care testing ,Qwgfuey6Why2: Cleaned MeterLee Memorial Hospital Physician GroupComment on above: Result Comment: PERFORMED BY: [place] [address] PATHOLOGIST SPECIALTY TRIMMER BEKAH FREED M.D.Performed By: #### GLULS #### Point of Care testing ,Glucose [Mass/Vol]232 mg/dLLee Memorial Hospital Physician GroupComment on above: Result Comment: Random Glucose Reference Range is dependent on time and content of last meal. Glucose of more than 200 mg/dL in a nonstressed, ambulatory subject supports the diagnosis of Diabetes Mellitus.Performed By: #### GLULS #### Point of Care testing ,XR lumbar spine 2-3V*on 71-14-4728PF lumbar spine 2-3V*[facility] [address] [place] [address] XRay Report Signed Patient: Tracie Ramirez MR#: [id number] : 2000 Acct:[id number] Age/Sex: 24 / M ADM Date: 08/01/24 Loc: Room: [address] [place] [address] Type: ADM IN Attending Dr: Blue Talbot [...] Tristan Bruno II, MD 08/03/242032 Signed By: 08/03/242035[facility] Physician GroupXR thoracic spine 2Von 41-53-9202UL thoracic spine 2VC[facility] [address] [place] [address] XRay Report Signed Patient: Tracie Ramirez MR#: [id number] : 2000 Acct:[id number] Age/Sex: 24 / M ADM Date: 08/01/24 Loc: Room: [address] [place] [address] Type: ADM IN Attending Dr: Blue Talbot [...] Tristan Bruno II, MD 08/03/242030 Signed By: 08/03/242032[facility] Physician GroupCholesterol [Mass/volume] in Serum or PlasmaOrdered By: Blue Talbot on 95-09-4988Glozokodsqt [Mass/Vol]149 mg/kAEdyipe961-402ItmpkwsdjSt. Charles HospitalComment on above:Chol less than 200 mg/dl low riskChol 201-239 mg/dl borderline riskChol 240 mg/dl and greater high riskResult Comment: Chol less than 200 mg/dl low risk Chol 201-239 mg/dl borderline risk Chol 240 mg/dl and greater high riskPerformed By: #### GLULS #### Point of Care testing ,Cholesterol in LDL Calc [Mass/Vol]Ordered By: Blue Talbot on 44-92-0102Pasbkrfhiae in LDL [Mass/Vol][facility] Comment on above:Test not performedCholesterol in LDL [Mass/volume] in Serum or PlasmaOrdered By: Blue Talbot on 52-06-8621Cbofzcyokui in LDL [Mass/Vol]58 mg/dL0-100St. Charles HospitalComment on above:LDL ATP III CLASSIFICATIONLDL less than 100 mg/dL OptimalLDL 100-129 mg/dL Near or above rgxakqeTSP149-385 mg/dL Borderline highLDL 160-189 mg/dL HighLDL greater than 189 mg/dL Very highCholesterol in VLDL Calc [Mass/Vol]Ordered By: Blue Talbot on 89-11-4849Tppxpougvoe in VLDL [Mass/Vol]113 mg/dL St. Charles HospitalGlucose Poct Glucometerson 07-84-7101Ppqakmi [Mass/Vol]353 mg/dLNoFormerly [facility], [facility] Physician GroupComment on above:Result Comment: Random Glucose Reference Range is dependent on time and content of last meal. Glucose of more than 200 mg/dL in a nonstressed, ambulatory subject supports the diagnosis of Diabetes Mellitus. PERFORMED BY: [address] [address] PATHOLOGIST SPECIALTY TRIMMER BEKAH FREED M.D.Performed By: #### GLULS #### Point of Care testing ,Glucose [Mass/Vol]281 mg/dLLee Memorial Hospital Physician GroupComment on above: Result Comment: Random Glucose Reference Range is dependent on time and content of last meal. Glucose of more than 200 mg/dL in a nonstressed, ambulatory subject supports the diagnosis of Diabetes Mellitus. PERFORMED BY: [address] [address] PATHOLOGIST SPECIALTY TRIMMER BEKAH FREED M.D.Performed By: #### MONET, ADDONUAPLUS #### [place] [address] IKIBjuaoke5Zkm6: Cleaned MeterNoFormerly [facility], [facility] Physician GroupComment on above:Result Comment: PERFORMED BY: [place] [address] PATHOLOGIST SPECIALTY TRIMMER BEKAH FREED M.D.Performed By: #### MONET, ADDONUAPLUS #### [place] [address] USAGlucose [Mass/Vol]296 mg/dLNoFormerly [facility], [facility] Physician GroupComment on above:Result Comment: Random Glucose Reference Range is dependent on time and content of last meal. Glucose of more than 200 mg/dL in a nonstressed, ambulatory subject supports the diagnosis of Diabetes Mellitus.Performed By: #### MONET, ADDONUAPLUS #### [place] [address] USAGlucose [Mass/Vol]277 mg/dLNoFormerly [facility], [facility] Physician GroupComment on above:Result Comment: Random Glucose Reference Range is dependent on time and content of last meal. Glucose of more than 200 mg/dL in a nonstressed, ambulatory subject supports the diagnosis of Diabetes Mellitus. PERFORMED BY: [place] [address] PATHOLOGIST SPECIALTY TRIMMER BEKAH FREED M.D.Performed By: #### MONET, ADDONUAPLUS #### [place] [id number] USALDL Cholesterol Measuredon 35-89-6342IKE Cholesterol Xuziyoma85 mg/dLNormal0-100The [facility] Physician GroupComment on above:Result Comment: LDL ATP III CLASSIFICATION LDL less than 100 mg/dL Optimal LDL 100-129 mg/dL Near or above optimal LDL 130-159 mg/dL Borderline high LDL 160-189 mg/dL High LDL greater than 189 mg/dL Very highPerformed By: #### GLULS #### Point of Care testing ,Lipid Panelon 94-70-3749WYB Cholesterol,CalculatedNot performedNormal0-100[facility] Physician [facility] HospitalComment on above:Performed By: #### GLULS #### Point of Care testing ,Triglyceride w/Yrnlzv019 mg/dLHigh0-149The [facility] Physician [facility] HospitalComment on above:Result Comment: TRIG ATP III [...] GLULS #### Point of Care testing ,VLDL UXHCJSEKNCI499 mg/dLNoDiley Ridge Medical Centere [facility] Physician [facility] HospitalComment on above: Performed By: #### GLULS #### Point of Care testing ,Serum or plasma high density lipoprotein (HDL) cholesterol measurementOrdered By: Blue Talbot on 90-72-5821Jnmhtlrwjbz in HDL [Mass/Vol]22 mg/dLLow 23-92St. Charles HospitalComment on above:HDL CHOL ATP-III CLASSIFICATION Cardiovascular RiskHDL [...] on 08-02-2024 Cholesterol.total/Cholesterol in HDL [Mass ratio]6.8 {ratio}Normal<5.0St. Charles HospitalComment on above:Performed By: #### GLULS #### Point of Care testing ,Thyroid Stim Hormone w/Rflxon 42-48-9212Dguztlp Stim Hormone w/Rflx2.94 u[iU]/mLNormal0.45-5.33The [facility] Physician [facility] HospitalComment on above:Performed By: #### GLULS #### Point of Care testing ,Thyrotropin [Units/volume] in Serum or PlasmaOrdered By: Blue Talbot on 32-31-7246LJP Qn2.94 m[IU]/L0.45-5.33[facility] Triglyceride [Mass/volume] in Serum or PlasmaOrdered By: Blue Talbot on 93-43-1056Sneufezkkzvf [Mass/Vol]569 mg/dLHigh0-149St. Charles HospitalComment on above:If the triglyceride result is greater than 400, LDLC and related calculations cannot be calculated and resulted.TRIG ATP III CLASSIFICATIONTRIG less than 150 mg/dL NormalTRIG 150-199 mg/dL Borderline highTRIG 200-500 mg/dL High TRIG greater than 500 mg/dL Very highStandard traceable to the Center for Disease Conrtrol and Prevention (CDC) test method. Vitamin D 25 Hydroxy Totalon 53-62-9169Pwkkrfb D 25 Hydroxy Total31.4 ng/mL Wpibbm93-671Ubo [facility] Physician GroupComment on above:Result Comment: VITAMIN D STATUS 25(OH)VITAMIN D RANGE (ng/mL) Deficient <20 Insufficient 20 to <30 Sufficient 30 to 100 Reference: Jodee Shrestha, Christina GUEVARA, et al. Evaluation,treatment, and prevention of vitamin D deficiency; an Endocrine Society clinical practice guideline. JCEM. 2010; 96(7):1911-30. PERFORMED BY: [address] [place] [address] PATHOLOGIST SPECIALTY TRIMMER BEKAH FREED M.D.Performed By: #### GLULS #### Point of Care testing ,Vitamin D+Metabolites [Mass/volume] in Serum or PlasmaOrdered By: Blue Talbot on 85-18-0807Jfdoain D+Metabolites [Mass/Vol]31.4 ng/qM59-096MifpnfwmpSt. Charles HospitalComment on above:VITAMIN D STATUS 25(OH)VITAMIN D RANGE (ng/mL) Deficient <20 Insufficient 20 to <64Uryufrunkc32 to 100Reference: Jodee Shrestha, Christina GUEVARA, et al. Evaluation,treatment, and prevention of vitamin D deficiency; an Endocrine Society clinical practice guideline. JCEM. 2010; 96(7):1911-30.Alanine aminotransferase [Enzymatic activity/volume] in Serum or PlasmaOrdered By: Octavio Patrick on 51-48-0596DOX [Catalytic activity/Vol]16 U/LNormal7-52St. Charles HospitalComment on above:Performed By: #### GLULS #### Point of Care testing ,Albumin [Mass/volume] in Serum or Plasma by Bromocresol green (BCG) dye binding methoOrdered By: Octavio Patrick on 46-80-5786Efcfwyo BCG dye [Mass/Vol]4.2 g/dL 3.5-5.7FMetroHealth Parma Medical CenterAlkaline phosphatase [Enzymatic activity/volume] in Serum or PlasmaOrdered By: Octavio Patrick on 32-42-7488HIY [Catalytic activity/Vol]43 U/MXvqads03-011AwblvlhwwSt. Charles Hospital Comment on above:Performed By: #### GLULS #### Point of Care testing ,Amphetamine Screen Ql (U)Ordered By: Octavio Patrick on 04-50-7485Tbnhjrfzpton Ql (U)NegativeNegativeSt. Charles HospitalAspartate aminotransferase [Enzymatic activity/volume] in Serum or PlasmaOrdered By: Octavio Patrick on 23-40-0632DQW [Catalytic activity/Vol]12 U/JYvj18-68VzknnyunwSt. Charles HospitalComment on above:Result Comment: PERFORMED BY: [address] [place] [address] PATHOLOGIST SPECIALTY TRIMMER BEKAH FREED M.D.Performed By: #### GLULS #### Point of Care testing ,Automated basophil %Ordered By: Octavio Patrick on 20-57-2410Uitpbttqy/100 WBC (Bld)0.6 %Normal.St. Charles HospitalComment on above:Performed By: #### GLULS #### Point of Care testing ,Automated basophil countOrdered By: Octavio Patrick on 53-49-6279Whwkotxqz (Bld) [#/Vol]0.1 10*3/uLNormal0.0-0.2FMetroHealth Parma Medical CenterComment on above:Result Comment: PERFORMED BY: [facility] [address] [place] [address] PATHOLOGIST SPECIALTY TRIMMER BEKAH FREED M.D.Performed By: #### GLULS #### Point of Care testing ,Automated blood monocyte countOrdered By: Octavio Patrick on 21-59-3691Bbimdxuhh (Bld) [#/Vol]0.4 10*3/uLNormal0.0-0.8St. Charles HospitalComment on above:Performed By: #### GLULS #### Point of Care testing ,Automated eosinophil %Ordered By: Octavio Patrick on 55-14-1724Hndijaarjni/100 WBC (Bld)0.7 %Normal.St. Charles HospitalComment on above:Performed By: #### GLULS #### Point of Care testing ,Automated eosinophil countOrdered By: Octavio Patrick on 99-43-3501Einyejyzzws (Bld) [#/Vol]0.1 10*3/uLNormal0.0-0.45St. [facility] HospitalComment on above:Performed By: #### GLULS #### Point of Care testing ,Automated monocyte %Ordered By: Octavio Patrick on 87-40-8112Debiakjsi/100 WBC (Bld)4.6 %Normal.St. Charles HospitalComment on above:Performed By: #### GLULS #### Point of Care testing ,Automated neutrophil %Ordered By: Octavio Patrick on 91-46-4877Ljljsmebqvc/100 WBC (Bld)59.5 %Normal.[facility]. Charles HospitalComment on above: Performed By: #### GLULS #### Point of Care testing ,Bacteria [Presence] in Urine by AutomatedOrdered By: Octavio Patrick on 12-48-4330Jtxrfscz Auto Ql (U)None seen [HPF]None SeenSt. Charles HospitalBarbiturates [Presence] in Urine by Screen methodOrdered By: Octavio Patrick on 43-75-8559Xxpbkktubcog Screen Ql (U)NegativeNegativeSt. Charles HospitalBenzodiazepines Screen Ql (U)Ordered By: Octavio Patrick on 75-10-8981Wcskxoejpirjrth Ql (U)NegativeNegativeSt. Charles HospitalBenzoylecgonine [Presence] in Urine by Screen methodOrdered By: Octavio Patrick on 08-50-6031Wvwtrkhaxfckrmv Screen Ql (U)NegativeNegHolzer HospitalBilirubin Test strip Ql (U)Ordered By: Octavio Patrick on 60-91-3782Enwcjshre Ql (U)NegativeNegHolzer Hospital Bilirubin.total [Mass/volume] in Serum or PlasmaOrdered By: Octavio Patrick on 44-29-8100Xtxloggiu [Mass/Vol]0.9 mg/dLNormal0.3-1.0St. [facility] HospitalComment on above:Performed By: #### GLULS #### Point of Care testing ,Calcium [Mass/volume] in Serum or PlasmaOrdered By: Octavio Patrick on 08-01-2024 Calcium [Mass/Vol]9.4 mg/dLNormal8.6-10.3FMetroHealth Parma Medical Center Comment on above:Performed By: #### GLULS #### Point of Care testing ,Cannabinoids [Presence] in Urine by Screen methodOrdered By: Octavio Patrick on 75-90-0390Vhjyspysvnxy Screen Ql (U)NegativeNegHolzer HospitalComment on above:These are unconfirmed results and should not be used for legal purposes. Drug Cut-Off Concentration: AMPH 1000 ng/mL KATHLEEN 200 ng/mL CARMEN 200 ng/mL COCM 300 ng/mL OP 300 ng/mL PCP 25 ng/mL THC 20 ng/mLCapillary blood glucose measurement by glucometer (mass/volume)Ordered By: Octavio Patrick on 96-08-8871Vpjezlu [Mass/Vol]352 mg/dLGalion Hospital Comment on above:Random Glucose Reference Range is [...] Serum or PlasmaOrdered By: Octavio Patrick on 30-86-1464EJ7 [Moles/Vol]27.8 mmol/TEzujza28.0-31.0St. Charles HospitalComment on above:Performed By: #### GLULS #### Point of Care testing ,Chloride [Moles/volume] in Serum or PlasmaOrdered By: Octavio Patrick on 80-67-9512Lpiqwwbk [Moles/Vol]98 mmol/GCcxzjp57-794ShldkgwjdSt. Charles HospitalComment on above:Performed By: #### GLULS #### Point of Care testing ,Color of Urine by AutoOrdered By: Octavio Patrick on 93-30-2512Pfltf (U) Light-yellowNormalYellowSt. Charles HospitalComment on above:Order Comment: Name Collection Type:: Clean-Voided MidstreamPerformed By: #### URDS, ADDONUAPLUS #### [place] [address] USAComplete Blood Count Auto Diffon 61-49-3987Thxk Corpuscular HGB Conc36.9 g/vLBwdr86.5-35.6The [facility] Physician [facility] HospitalComment on above:Performed By: #### GLULS #### Point of Care testing ,Monocytes/100 WBC (Bld)15.15 %Normal0.00-20.00[facility] Physician [facility] Comment on above:Performed By: #### GLULS #### Point of Care testing ,NRBC%0.3 /100{WBC}Normal0-0.5The [facility] Physician [facility] HospitalComment on above: Performed By: #### GLULS #### Point of Care testing ,Comprehensive Metabolic Panelon 33-01-5698Ulngwdj LevelNormal3.5-5.7The [facility] Physician [facility] HospitalComment on above:Result Comment: Specimen hemolyzed, redraw requestedPerformed By: #### GLULS #### Point of Care testing ,Albumin/Globulin [Mass ratio]Not performedNormalThe [facility] Physician [facility] Comment on above:Performed By: #### GLULS #### Point of Care testing ,Anion gap [Moles/Vol]Not performedNormal6.0-15.0[facility] Comment on above:Performed By: #### GLULS #### Point of Care testing ,Aspartate Amino SaxiwokhiheObrpgw75-47Ixx [facility] Physician GroupComment on above:Result Comment: Specimen hemolyzed, redraw requestedPerformed By: #### GLULS #### Point of Care testing ,Creatinine Clr Calc Muvxixdl030.07NoFormerly [facility], [facility] Physician GroupComment on above:Result Comment: PERFORMED BY: [facility] [place] [address] PATHOLOGIST SPECIALTY TRIMMER BEKAH FREED M.D.Performed By: #### GLULS #### Point of Care testing ,GFR/1.73 sq M.predicted MDRD (S/P/Bld) [Vol rate/Area]mL/min/{1.73_m2}NormalThe [facility] Hospital Physician GroupComment on above:Performed By: #### GLULS #### Point of Care testing ,GlobulinNot performedNoFormerly [facility], [facility] Physician GroupComment on above: Performed By: #### GLULS #### Point of Care testing ,PotassiumNormal3.5-5.1The [facility] Physician GroupComment on above:Result Comment: Specimen hemolyzed, redraw requestedPerformed By: #### GLULS #### Point of Care testing ,KanlvdJbtwdj396-741Boy [facility] Physician GroupComment on above:Result Comment: Specimen hemolyzed, redraw requestedPerformed By: #### GLULS #### Point of Care testing ,Total ProteinNormal6.4-8.9The [facility] Physician GroupComment on above:Result Comment: Specimen hemolyzed, redraw requestedPerformed By: #### GLULS #### Point of Care testing ,Creatinine [Mass/volume] in Serum or PlasmaOrdered By: Octavio Patrick on 33-34-7908Swnggxzzoy [Mass/Vol]1.02 mg/dLNormal0.70-1.30St. [facility] HospitalComment on above:Performed By: #### GLULS #### Point of Care testing ,Dipstick and Microscopicon 20-44-7454Dvjcybez,UrineNone SeenNormalNone SeenAdventhealth Timberridge Er Physician GroupComment on above:Order Comment: Name Collection Type:: Clean-Voided MidstreamPerformed By: #### URDS, ADDONUAPLUS #### [place] [address] USABilirubin,UrineNegativeNormalNegativeThe [facility] Physician GroupComment on above:Order Comment: Name Collection Type:: Clean- Voided MidstreamPerformed By: #### URDS, ADDONUAPLUS #### [place] [address] USAGlucose Ql (U)>=1000HighNoFormerly [facility], [facility] Physician GroupComment on above:Order Comment: Name Collection Type:: Clean-Voided MidstreamPerformed By: #### URDS, ADDONUAPLUS #### [place] [address] USAHyaline Casts,UrineNoneNormal0-8The [facility] Physician GroupComment on above:Order Comment: Name Collection Type:: Clean-Voided MidstreamPerformed By: #### URDS, ADDONUAPLUS #### [place] [address] USAMucus,UrineRareNormalThe [facility] Physician GroupComment on above:Order Comment: Name Collection Type:: Clean-Voided MidstreamResult Comment: PERFORMED BY: [place] [address] PATHOLOGIST SPECIALTY TRIMMER BEKAH FREED M.D.Performed By: #### URDS, ADDONUAPLUS #### [place] [address] USANitrite,UrineNegativeNormalNegativeAdventhealth Timberridge Er Physician GroupComment on above:Order Comment: Name Collection Type:: Clean-Voided MidstreamPerformed By: #### URDS, ADDONUAPLUS #### [place] [address] USAOccult Blood,UrineNegativeNormalNegativeThe [facility] Physician GroupComment on above:Order Comment: Name Collection Type:: Clean- Voided MidstreamResult Comment: PERFORMED BY: [place] [address] PATHOLOGIST SPECIALTY TRIMMER BEKAH FREED M.D.Performed By: #### URDS, ADDONUAPLUS #### [place] [address] USARBC,Valrm4-7Uyyfuq7-2Rlz [facility] Physician GroupComment on above:Order Comment: Name Collection Type:: Clean-Voided MidstreamPerformed By: #### URDS, ADDONUAPLUS #### [place] [address] USASpecificy Quanah,Urine1.253Esbx5.001-1.030The [facility] Physician GroupComment on above:Order Comment: Name Collection Type:: Clean- Voided MidstreamPerformed By: #### URDS, ADDONUAPLUS #### [place] [address] USASquamous Epithelial Cell,Cgamo4-4Osrwdj4-2Yyb [facility] Physician GroupComment on above:Order Comment: Name Collection Type:: Clean- Voided MidstreamPerformed By: #### URDS, ADDONUAPLUS #### [place] [address] USAUrobilinogen,UrineNormalNormalNormalThe [facility] Physician GroupComment on above:Order Comment: Name Collection Type:: Clean- Voided MidstreamPerformed By: #### URDS, ADDONUAPLUS #### [place] [address] USAWBC,Jakii9-6Jkyqro4-0Jjx [facility] Physician GroupComment on above:Order Comment: Name Collection Type:: Clean-Voided MidstreamPerformed By: #### URDS, ADDONUAPLUS #### [place] [address] USADrug Screen,Urineon 07-87-2805Mcyoxdkmbay Screen,Urine NegativeNormalNegativeThe [facility] Physician GroupComment on above:Performed By: #### URDS, ADDONUAPLUS #### [place] [address] USABarbiturate Screen,UrineNegativeNormalNegativeThe [facility] Physician GroupComment on above:Performed By: #### URDS, ADDONUAPLUS #### [place] [address] USABenzodiazepines Screen,UrineNegativeNormalNegativeThe [facility] Physician GroupComment on above:Performed By: #### URDS, ADDONUAPLUS #### [place] [address] USACannabinoid Screen,UrineNegativeNormalNegativeThe [facility] Physician GroupComment on above:Result Comment: These are unconfirmed results and should not be used for legal purposes. Drug Cut-Off Concentration: AMPH 1000 ng/mL KATHLEEN 200 ng/mL CARMEN 200 ng/mL COCM 300 ng/mL OP 300 ng/mL PCP 25 ng/mL THC 20 ng/mL PERFORMED BY: [place] [address] PATHOLOGIST SPECIALTY TRIMMER BEKAH FREED M.D.Performed By: #### URDS, ADDONUAPLUS #### [place] [address] USACocaine Screen,UrineNegativeNormalNegativeThe [facility] Physician GroupComment on above:Performed By: #### URDS, ADDONUAPLUS #### [place] [address] USAOpiate Screen,UrineNegativeNormalNegativeThe [facility] Physician GroupComment on above:Performed By: #### URDS, ADDONUAPLUS #### [place] [address] USAPhencyclidine Screen,UrineNegativeNormalNegativeThe [facility] Physician GroupComment on above:Performed By: #### URDS, ADDONUAPLUS #### [place] [address] USAECG 12 lead ECGon 80-87-6673FKZ 12 lead [facility]GCLEVEL[facility] [address] [place] [address] Electrocardiograph Report Signed Patient: Tracie Ramirez MR#: [id number] : 2000 Acct:[id number] Age/Sex: 24 / M ADM Date: 08/01/24 Loc: 1S Room: [address] [place] [address] Type: ADM IN Attending Dr: Blue Talbot [...] rhythm Normal ECG Confirmed by Lynnette Daniels ([id number]) on 08/02/2024 10:16:21 AM Referred By: Electronically Signed By: Lynnette Daniels Transcribed By: MUS Signed By Lynnette Daniels MD [address] [place] [address] Physician GroupEpithelial cells.squamous [#/area] in Urine sediment by Automated countOrdered By: Octavio Patrick on 08-01-2024 Epithelial cells.squamous Auto (Urine sed) [#/Area]1-2 [HPF]0-2FMetroHealth Parma Medical CenterErythrocyte distribution width [Ratio] by Automated count Ordered By: Octavio Patrick on 95-85-4211Xzxsrpdchvd distribution width (RBC) [Ratio]13.7 %Plcxup52.0-14.8St. [facility] HospitalComment on above: Performed By: #### GLULS #### Point of Care testing ,Erythrocytes [#/area] in Urine sediment by Automated countOrdered By: Octavio Patrick on 61-78-0332QOM Auto (Urine sed) [#/Area]1-2 [HPF]0-4FMetroHealth Parma Medical CenterErythrocytes [#/volume] in Blood by Automated countOrdered By: Octavio Patrick on 67-42-7123BEQ (Bld) [#/Vol]5.39 10*6/uLNormal3.90-5.60St. [facility] HospitalComment on above:Performed By: #### GLULS #### Point of Care testing ,Ethanol [Mass/volume] in Serum or PlasmaOrdered By: Octavio Patrick on 08-01-2024 Ethanol [Mass/Vol]mg/dLNoSelect Medical Specialty Hospital - ColumbusComment on above: Performed By: #### GLULS #### Point of Care testing ,Ethanol [Mass/Vol]Parkview HealthComment on above:Test not performedEthyl Alcohol Profileon 29-25-8814Smfrsix EthanolNot performedNormal [facility] Physician [facility] HospitalComment on above:Result Comment: PERFORMED BY: [place] [address] PATHOLOGIST SPECIALTY TRIMMER BEKAH FREED M.D.Performed By: #### GLULS #### Point of Care testing ,Globulin Calc (S) [Mass/Vol]Ordered By: Octavio Patrick on 75-04-7347Trvdybyw (S) [Mass/Vol]Parkview HealthComment on above:Test not performedGlucose Poct Glucometerson 55-70-7210Uuhbomn [Mass/Vol]330 mg/dLNormal [facility] Physician [facility] HospitalComment on above:Result Comment: Random Glucose Reference Range is dependent on time and content of last meal. Glucose of more than 200 mg/dL in a nonstressed, ambulatory subject supports the diagnosis of Diabetes Mellitus. PERFORMED BY: [place] [address] PATHOLOGIST SPECIALTY TRIMMER BEKAH FREED M.D.Performed By: #### URDS, ADDONUAPLUS #### [place] [address] USAGlucose [Mass/Vol]251 mg/dLNoFormerly [facility], [facility] Physician [facility] HospitalComment on above:Result Comment: Random Glucose Reference Range is dependent on time and content of last meal. Glucose of more than 200 mg/dL in a nonstressed, ambulatory subject supports the diagnosis of Diabetes Mellitus. PERFORMED BY: [place] [address] PATHOLOGIST SPECIALTY TRIMMER BEKAH FREED M.D.Performed By: #### GLULS #### Point of Care testing ,Kwhkxit4NwxuouBjvLee [facility] Physician [facility] HospitalComment on above:Result Comment: Glu2: WILL NOTIFY DR/RN PERFORMED BY: [facility] [place] [address] PATHOLOGIST SPECIALTY TRIMMER BEKAH FREED M.D.Performed By: #### GLULS #### Point of Care testing ,Glucose [Mass/volume] in Serum or PlasmaOrdered By: Octavio Patrick on 08-01-2024 Glucose [Mass/Vol]206 mg/aWPdja59-866AlsonybbvSt. Charles HospitalComment on above:ADA recommended reference rangeRandom Glucose Reference [...] by Test stripOrdered By: Octavio Patrick on 35-71-2398Zzbfqtq Test strip (U) [Mass/Vol]>=1000 mg/dLHighMercy Hospital JoplinalSt. Charles HospitalHematocrit [Volume Fraction] of Blood by Automated count Ordered By: Octavio Patrick on 41-56-7354Vskyoljxkg (Bld) [Volume fraction]45.4 % Kwqdqu53.8-50.0St. Charles HospitalComment on above:Performed By: #### GLULS #### Point of Care testing ,Hemoglobin Test strip Ql (U)Ordered By: Octavio Patrick on 27-01-4721Raqqtnvgyd Ql (U)NegativeNegativeSt. Charles HospitalHemoglobin [Mass/volume] in BloodOrdered By: Octavio Patrick on 23-59-8806Logmddijto (Bld) [Mass/Vol]16.8 g/bRPpagde67.0-17.0St. Charles HospitalComment on above:Performed By: #### GLULS #### Point of Care testing ,Hyaline casts [#/area] in Urine sediment by Automated countOrdered By: Octavio Patrick on 29-28-2340Rofxyre casts Auto (Urine sed) [#/Area]None [LPF]0-8 [facility] HospitalKetones [Presence] in Urine by Test strip Ordered By: Octavio Patrick on 66-24-6946Kwouihw Ql (U)1+HighNegativeSt. Charles HospitalComment on above:Order Comment: Name Collection Type:: Clean-Voided MidstreamPerformed By: #### URDS, ADDONUAPLUS #### [facility] [address] [place], [place] [id number] USALeukocyte esterase [Presence] in Urine by Test strip Ordered By: Octavio Patrick on 85-98-8083Bmkdsphvu esterase Test strip Ql (U) NegativeNormalNegHolzer HospitalComment on above:Order Comment: Name Collection Type:: Clean-Voided MidstreamPerformed By: #### URDS, ADDONUAPLUS #### [facility] [address] [place], [place] [id number] USALeukocytes [#/area] in Urine sediment by Automated count Ordered By: Octavio Patrick on 83-12-9148CLS Auto (Urine sed) [#/Area]1-2 [HPF]0-4 [facility] HospitalLeukocytes [#/volume] corrected for nucleated erythrocytes in Blood by Automated counOrdered By: Octavio Patrick on 08-01-2024 WBC corrected for nucl RBC Auto (Bld) [#/Vol]8.6 10*3/uL4.1-10.5FMetroHealth Parma Medical CenterLeukocytes [#/volume] in Blood by Automated countOrdered By: Octavio Patrick on 17-98-1823QOZ (Bld) [#/Vol]8.6 10*3/uLNormal4.1-10.5 [facility] Charles HospitalComment on above:Performed By: #### GLULS #### Point of Care testing ,Lymphocytes [#/volume] in Blood by Automated countOrdered By: Octavio Patrick on 00-02-4386Ndpzwdjoqgk (Bld) [#/Vol]3.0 10*3/uLNormal1.00-4.8St. Charles HospitalComment on above:Performed By: #### GLULS #### Point of Care testing ,Lymphocytes/100 leukocytes in Blood by Automated countOrdered By: Octavio Patrick on 11-45-5730Itylgxgyvdu/100 WBC (Bld)34.6 %Normal.St. Charles HospitalComment on above:Performed By: #### GLULS #### Point of Care testing ,MCH [Entitic mass] by Automated countOrdered By: Octavio Patrick on 04-62-1194CMY (RBC) [Entitic mass]31.1 lfHtvqpk53.5-35.2FMetroHealth Parma Medical Center Comment on above:Performed By: #### GLULS #### Point of Care testing ,MCHC Auto (RBC) [Mass/Vol]Ordered By: Octavio Patrick on 36-48-4839TJNC (RBC) [Mass/Vol]36.9 g/bVNknm97.5-35.6FMetroHealth Parma Medical CenterMCV [Entitic volume] by Automated countOrdered By: Octavio Patrick on 86-59-6946DZA (RBC) [Entitic vol]84.3 aAZxobjf14.5-101St. Charles HospitalComment on above:Performed By: #### GLULS #### Point of Care testing ,Monocyte distribution width [Entitic volume] in Blood by AutomatedOrdered By: Octavio Patrick on 76-19-5560Nherwyqo distribution width Auto (Bld) [Entitic vol] 15.15 %0.00-20.00St. Charles HospitalMucus [Presence] in Urine by AutomatedOrdered By: Octavio Patrick on 88-52-4757Gljem Auto Ql (U)Rare [LPF] [facility] Charles HospitalNeutrophils [#/volume] in Blood by Automated countOrdered By: Octavio Patrick on 08-45-5512Jklofsprwik (Bld) [#/Vol]5.1 10*3/uL Normal1.8-7.7FMetroHealth Parma Medical CenterComment on above:Performed By: #### GLULS #### Point of Care testing ,Nitrite Test strip Ql (U)Ordered By: Octavio Patrick on 82-54-7120Bdsxlgc Ql (U) NegativeNegativeSt. Charles HospitalNo Panel InformationOrdered By: Octavio Patrick on 65-86-3374Dolraiu Glucose CommentSee commentSt. Charles HospitalComment on above:Glu2: WILL NOTIFY DR/RNEstimated GFR (CKD-EPI)> 60.0 mL/MinSt. Charles HospitalPharmacy Creatinine Clearance (Chem 135.07St. Charles HospitalNucleated erythrocytes [Presence] in Blood by Automated countOrdered By: Octavio Patrick on 06-25-1245Kzcgndilb RBC Auto Ql (Bld)0.3 /100{WBC}0-0.5FMetroHealth Parma Medical CenterOpiates [Presence] in Urine by Screen methodOrdered By: Octavio Patrick on 08-01-2024 Opiates Screen Ql (U)NegativeNegHolzer Hospital Phencyclidine Screen Ql (U)Ordered By: Octavio Patrick on 33-65-1317Nnteednmadxev Ql (U)NegativeNegHolzer HospitalPlatelet mean volume [Entitic volume] in Blood by Automated countOrdered By: Octavio Patrick on 16-33-3458Uaxfsflq mean volume (Bld) [Entitic vol]7.9 fLNormal6.6-10.1FMetroHealth Parma Medical CenterComment on above:Performed By: #### GLULS #### Point of Care testing ,Platelets [#/volume] in Blood by Automated countOrdered By: Octavio Patrick on 15-09-3100Tnycjclcp (Bld) [#/Vol]160 10*3/rCVknfgc081-481PtqiiwetsSt. Charles HospitalComment on above:Performed By: #### GLULS #### Point of Care testing ,Potassium [Moles/volume] in Serum or PlasmaOrdered By: Octavio Patrick on 37-82-7491Mvwninzjt [Moles/Vol]4.1 mmol/LNormal3.5-5.1FMetroHealth Parma Medical CenterComment on above:Performed By: #### GLULS #### Point of Care testing ,Protein [Mass/volume] in Serum or PlasmaOrdered By: Octavio Patrick on 08-01-2024 Protein [Mass/Vol]6.9 g/dLNormal6.4-8.9St. Charles HospitalComment on above:Performed By: #### GLULS #### Point of Care testing ,Protein [Mass/volume] in Urine by Test stripOrdered By: Octavio Patrick on 68-71-3563Esakzzr (U) [Mass/Vol]20 mg/dLHighNegativeSt. Charles HospitalComment on above:Order Comment: Name Collection Type:: Clean-Voided MidstreamPerformed By: #### URDS, ADDONUAPLUS #### [facility] [address] [place] [address] USARedraw Rosie 08-30-6345Soreqn TFOFgajlj33-78Mnw [facility] Physician GroupComment on above:Result Comment: Specimen hemolyzed, redraw requested PERFORMED BY: [facility] [address] [place] [address] PATHOLOGIST SPECIALTY TRIMMER BEKAH FREED M.D.Performed By: #### GLULS #### Point of Care testing ,Redraw Albumin Levelon 39-05-4536Bwkcyur [Mass/Vol]4.2 g/dLNormal3.5-5.7The [facility] Physician GroupComment on above:Performed By: #### GLULS #### Point of Care testing ,Redraw Potassiumon 81-10-2609Qivadd PotassiumNormal3.5-5.1The [facility] Physician GroupComment on above:Result Comment: Specimen hemolyzed, redraw requestedPerformed By: #### GLULS #### Point of Care testing ,Serum or plasma albumin/globulin mass ratioOrdered By: Octavio Patrick on 99-97-7195Pygsuot/Globulin [Mass ratio][facility] Comment on above:Test not performedSerum or plasma anion gap determination Ordered By: Octavio Patrick on 04-36-9448Uvxym gap [Moles/Vol]Parkview HealthComment on above:Test not performedSodium [Moles/volume] in Serum or PlasmaOrdered By: Octavio Patrick on 49-43-3117Iadhld [Moles/Vol]134 mmol/ERzt392-915EhnjvaekoSt. Charles HospitalComment on above:Performed By: #### GLULS #### Point of Care testing ,Specific gravity Test strip (U) [Rel density]Ordered By: Octavio Patrick on 17-63-9148Kogjmocm gravity (U) [Rel density]1.211Kjql6.001-1.030St. Charles HospitalUrea nitrogen [Mass/volume] in Serum or PlasmaOrdered By: Octavio Patrick on 38-79-8775Cgyr nitrogen [Mass/Vol]14 mg/dLNormal7-25St. Charles HospitalComment on above:Performed By: #### GLULS #### Point of Care testing ,Urine appearanceOrdered By: Octavio Patrick on 65-25-1775Glypsuvrzn (U)Clear NormalCleUpper Valley Medical CenterComment on above:Order Comment: Name Collection Type:: Clean-Voided MidstreamPerformed By: #### URDS, ADDONUAPLUS #### [facility] [address] [place] [address] USAUrobilinogen Test strip (U) [Mass/Vol]Ordered By: Octavio Patrick on 84-29-7310Zlcwwtiexxsj (U) [Mass/Vol]Normal mg/dLNormSt. Mary's Medical CenterpH of Urine by Test stripOrdered By: Octavio Patrick on 58-60-7177hR (U)6.0 [pH]Normal5.0-9.0St. Charles HospitalComment on above:Order Comment: Name Collection Type:: Clean-Voided MidstreamPerformed By: #### URDS, ADDONUAPLUS #### [facility] [address] [place] [address] MBCPvO7q HPLC (Bld) [Mass fraction]on 98-61-0862CyW6f (Bld) [Mass fraction]%[facility] HospitalPatient Letter FTon 32-44-0497Cgpoboy Letter [facility]SAPatient Letter [facility] June 02, 20[address]Z [address] [place] [id number] : 2000 Dear Mr. Tracie Ramirez, You [...] appreciate your consideration regarding any future cancellations. Sincerely,[facility] CenterXR Knee Complete Left*on 35-92-0780YA Knee Complete Left*TECHNIQUE: AP, lateral and oblique [...] signed by Darien Lugo on 03/05/2023 1626NormalNorthern Connecticut Valley Hospital AUTO DIFFon 12-55-5857DHJU #0.0 103/ulNormal0.0-0.1 [facility]ucl[facility] HospitalComment on above:Performed By: #### POCGLUC #### [facility] [address] [address] [address] Taylor GarciaBasophils/100 WBC (Bld)0.6 %Normal0.2-2.0[facility] Comment on above:Performed By: #### POCGLUC #### [facility] [address] [address] [address] Taylor Mills #0.1 103/ulNormal0.0-0.7The [facility] Medical CenterComment on above: Performed By: #### POCGLUC #### [facility] [address] [address] [address] Taylor Pulliamosinophils/100 WBC (Bld)1.7 %Normal0.9-7.0[facility] Comment on above:Performed By: #### POCGLUC #### [facility] [address] [address] [address] Taylor Pulliamrythrocyte distribution width (RBC) [Ratio]12.7 %Muyfvg57.0-15.0 [facility]ucl[facility] HospitalComment on above:Performed By: #### POCGLUC #### [facility] [address] [place] [address] Dr. Taylor Moyeratokarlit (Bld) [Volume fraction]38.6 %Critically low42.0-54.0 The [facility] Medical CenterComment on above:Performed By: #### POCGLUC #### [facility] [address] [place] [address] Dr. Taylor GarciaHemoglobin (Bld) [Mass/Vol]14.0 g/wBKaqwof63.0-18.0The [facility] CenterComment on above:Performed By: #### POCGLUC #### [facility] [address] [place] [address] Dr. Taylor Elder #0.08 10e3/ulCritically high0.00-0.03The [facility] Comment on above:Performed By: #### POCGLUC #### [facility] [address] [place] [address] Dr. Taylor Elder %1.6 %Critically high0.0-0.5The [facility] CenterComment on above:Performed By: #### POCGLUC #### [facility] [address] [place] [address] Dr. Taylor Del Toro #1.7 103/ulNormal1.2-3.8The [facility] CenterComment on above:Performed By: #### POCGLUC #### [facility] [address] [place] [address] Dr. Taylor Solomonhocytes/100 WBC (Bld)33.4 %Uczqxl69.5-60.0The [facility] CenterComment on above:Performed By: #### POCGLUC #### [facility] [address] [place] [address] Dr. Taylor DamonUAL DIFF REQNONormalThe [facility] CenterComment on above: Performed By: #### POCGLUC #### [facility] [address] [place] [address] Dr. Taylor Hurst (RBC) [Entitic mass]31.7 cuKybxjd21.9-34.0The [facility] CenterComment on above:Performed By: #### POCGLUC #### [facility] [address] [place] [address] Dr. Taylor Marley (RBC) [Mass/Vol]36.3 g/dLCritically high29.9-35.2The [facility] CenterComment on above:Performed By: #### POCGLUC #### [facility] [address] [place] [address] Dr. Taylor Yusuf (RBC) [Entitic vol]87.3 lOMfmeok17.0-94.0The [facility] CenterComment on above:Performed By: #### POCGLUC #### [facility] [address] [place] [address] Dr. Taylor Guillen #0.4 103/ulNormal0.3-0.8The [facility] CenterComment on above:Performed By: #### POCGLUC #### [facility] [address] [place] [address] Dr. Taylor Alvarezocytes/100 WBC (Bld)8.2 %Normal1.7-12.0The [facility] Comment on above:Performed By: #### POCGLUC #### [facility] [address] [place] [address] Dr. Taylor Hansen #2.8 103/ulNormal1.4-6.5The [facility] CenterComment on above:Performed By: #### POCGLUC #### [facility] [address] [place] [address] Dr. Taylor Friedutrophils/100 WBC (Bld)54.5 %Csdbks92.0-75.0The [facility] CenterComment on above:Performed By: #### POCGLUC #### [facility] [address] [place] [address] Dr. Taylor Tomaslet mean volume (Bld) [Entitic vol]10.3 fLNormal9.5-13.5The [facility] CenterComment on above:Performed By: #### POCGLUC #### [facility] [address] [address] [address] Taylor GarciaPLT113 103/ulCritically dky613-011Gth [facility] CenterCombaraga county memorial hospital on above:Performed By: #### POCGLUC #### [facility] [address] [place] [address] Dr. Taylor GarciaRBC4.42 106/ulCritically low4.70-6.10The [facility] CenterComment on above:Performed By: #### POCGLUC #### [facility] [address] [place] [address] Dr. Taylor GarciaWBC5.2 103/ulNormal4.0-11.0The [facility] CenterCombaraga county memorial hospital on above: Performed By: #### POCGLUC #### [facility] [address] [place] [address] Dr. Taylor GarciaDIRECT LDLon 52-53-9207Evnoxsocnlo in LDL [Mass/Vol]108 mg/dL NormalThe [facility] CenterCombaraga county memorial hospital on above:Performed By: #### POCGLUC #### [facility] [address] [place] [address] Dr. Taylor GarciaDLDL NORMALSEE [facility] HospitalComment on above: Result Comment: <100 mg/dl OPTIMAL 100 - 129 mg/dl NEAR OR ABOVE OPTIMAL 130 - 159 mg/dl BORDERLINE HIGH 160 - 189 mg/dl HIGH >190 mg/dl VERY HIGHPerformed By: #### POCGLUC #### [facility] [address] [place] [address] Dr. Taylor GarciaLIPASEon 62-90-7827Iumzne [Catalytic activity/Vol]91.0 U/LNormal 73.0-393.0The [facility] CenterComment on above:Performed By: #### POCGLUC #### [facility] [address] [place] [address] Dr. Taylor BorregoID PROFILEon 77-84-9431RZHH-HDL RATIO NORMSEE [facility] HospitalCombaraga county memorial hospital on above:Result Comment: 3.3 - 4.4 LOW RISK 4.4 - 7.1 AVERAGE RISK 7.1 - 11.0 MODERATE RISK >11.0 HIGH RISKPerformed By: #### POCGLUC #### [facility] [address] [address] [address] Taylor GarciaCholesterol [Mass/Vol]299 mg/dLCritically high<=200The [facility] CenterCombaraga county memorial hospital on above:Performed By: #### POCGLUC #### [facility] [address] [address] [address] Taylor GarciaCholesterol in HDL [Mass/Vol]22 mg/dLCritically ihb20-33Gix [facility] CenterComment on above:Performed By: #### POCGLUC #### [facility] [address] [address] [address] Taylor Yeeesterol.total/Cholesterol in HDL [Mass ratio]13.6 {ratio} NormalThe [facility] CenterComment on above:Performed By: #### POCGLUC #### [facility] [address] [address] [address] Taylor Puentes NORMAL> or = 60 mg/dl - LOW CARDIOVASCULAR RISK <40 mg/dl - HIGH CARDIOVASCULAR RISKNoAdena Fayette Medical CenterComment on above:Performed By: #### POCGLUC #### [facility] [address] [address] [address] Taylor GarciaTriglyceride [Mass/Vol]798 mg/dLCritically high<=150The [facility] CenterComment on above:Performed By: #### POCGLUC #### [facility] [address] [address] [address] Taylor GarciaVLDL GLPF957.6 mg/dLNoAdena Fayette Medical CenterComment on above: Performed By: #### POCGLUC #### [facility] [address] [address] [address] Taylor Villela [facility] GLUCOSEon 50-75-5117Viiewtb [Mass/Vol]252 mg/dL Critically uctn22-695Cay [facility] CenterComment on above:Performed By: #### POCGLUC #### [facility] [address] [address] [address] Taylor GarciaGlucose [Mass/Vol]181 mg/dLCritically cqxk10-074Vzj [facility] CenterComment on above:Performed By: #### POCGLUC #### [facility] [address] [address] [address] Taylor Hicks 14(COMP METB)on 45-97-5805Llehzmd [Mass/Vol]3.0 g/dL Critically low3.4-5.0The [facility] CenterComment on above:Performed By: #### POCGLUC #### [facility] [address] [address] [address] Taylor GarciaAlbumin/Globulin [Mass ratio]0.9 {ratio}NormalThe [facility] CenterComment on above:Performed By: #### POCGLUC #### [facility] [address] [place] [address] Dr. Taylor OmerP [Catalytic activity/Vol]41 U/LCritically ksm07-596Oux [facility] CenterComment on above:Performed By: #### POCGLUC #### [facility] [address] [place] [address] Dr. Taylor Meléndez [Catalytic activity/Vol]37 U/WImdtfo79-39Hog [facility] CenterComment on above:Performed By: #### POCGLUC #### [facility] [address] [place] [address] Dr. Taylor Araujo gap [Moles/Vol]16.0 mmol/LNormalThe [facility] Comment on above:Performed By: #### POCGLUC #### [facility] [address] [address] [address] Taylor GarciaAST [Catalytic activity/Vol]20 U/PLeqmcz06-85Ewl [facility] CenterComment on above:Performed By: #### POCGLUC #### [facility] [address] [address] [address] Taylor GarciaBilirubin [Mass/Vol]0.5 mg/dLNormal0.2-1.0The [facility] Comment on above:Performed By: #### POCGLUC #### [facility] [address] [place] [address] Dr. Taylor GarciaCalcium [Mass/Vol]8.9 mg/dLNormal8.5-10.1The [facility] Comment on above:Performed By: #### POCGLUC #### [facility] [address] [place] [address] Dr. Taylor GarciaChloride [Moles/Vol]103 mmol/ACvbfhn18-610Tot [facility] Comment on above:Performed By: #### POCGLUC #### [facility] [address] [place] [address] Dr. Taylor GarciaCO2 [Moles/Vol]22.0 mmol/HRdskif27.0-32.0The [facility] Comment on above:Performed By: #### POCGLUC #### [facility] [address] [place] [address] Dr. Taylor GarciaCreatinine [Mass/Vol]0.65 mg/dLCritically low0.70-1.30The [facility] CenterComment on above:Performed By: #### POCGLUC #### [facility] [address] [place] [address] Dr. Taylor PulliamGFR-AF NIGERIEN>60Normal>=60The [facility] CenterComment on above:Performed By: #### POCGLUC #### [facility] [address] [place] [address] Dr. Taylor PulliamGFR-NON AF NIGERIEN>60Normal>=60The [facility] CenterComment on above:Performed By: #### POCGLUC #### [facility] [address] [place] [address] Dr. Taylor GarciaGlobulin (S) [Mass/Vol]3.3 g/dLNormalThe [facility] CenterComment on above:Performed By: #### POCGLUC #### [facility] [address] [place] [address] Dr. Taylor GarciaGlucose [Mass/Vol]198 mg/dLCritically gtsx67-204Rdo [facility] CenterComment on above:Performed By: #### POCGLUC #### [facility] [address] [place] [address] Dr. Taylor GarciaPotassium [Moles/Vol]4.0 mmol/LNormal3.5-5.1The [facility] Comment on above:Performed By: #### POCGLUC #### [facility] [facility] [address] [address] [address] Taylor GarciaProtein [Mass/Vol]6.3 g/dLCritically low6.4-8.2[facility]uclid HospitalComment on above:Performed By: #### POCGLUC #### [facility] [address] [address] [address] Taylor GarciaSodium [Moles/Vol]137 mmol/BSkjxts416-613Fam [facility] Comment on above:Performed By: #### POCGLUC #### [facility] [address] [address] [address] Taylor GarciaUrea nitrogen [Mass/Vol]9.0 mg/dLNormal7.0-18.0The [facility] CenterComment on above:Performed By: #### POCGLUC #### [facility] [address] [address] [address] Taylor Courtney nitrogen/Creatinine [Mass ratio]13.8 mg/mgNormalThe [facility] CenterComment on above:Performed By: #### POCGLUC #### [facility] Laboratory [address] [place] [address] Dr. Taylor GarciaAlanine aminotransferase [Enzymatic activity/volume] in Serum or PlasmaOrdered By: Shaikh Swapnil on 43-44-5442ZYN [Catalytic activity/Vol]30 U/L 7-52[facility] HospitalAlbumin [Mass/volume] in Serum or Plasma by Bromocresol green (BCG) dye binding methoOrdered By: Shaikh Swapnil on 17-58-2800Jwamjdy BCG dye [Mass/Vol]3.5 g/dL3.5-5.7FMetroHealth Parma Medical CenterAlkaline phosphatase [Enzymatic activity/volume] in Serum or PlasmaOrdered By: Shaikh Swapnil on 03-04-1688DGW [Catalytic activity/Vol]38 U/T47-863BoqmztscoSt. Charles HospitalAspartate aminotransferase [Enzymatic activity/volume] in Serum or PlasmaOrdered By: Shaikh Swapnil on 51-44-7641AEI [Catalytic activity/Vol]17 U/Q59-09VuhsqsbkdSt. Charles HospitalBilirubin.total [Mass/volume] in Serum or PlasmaOrdered By: Shaikh Swapnil on 78-57-0179Jjiefxdlv [Mass/Vol]0.6 mg/dL0.3-1.0St. [facility] HospitalCBC AUTO DIFFon 52-54-5619HYHF #0.0 103/ulNormal0.0-0.1The [facility] CenterComment on above: Performed By: #### POCGLUC #### [facility] [address] [address] [address] Taylor GarciaBasophils/100 WBC (Bld)0.4 %Normal0.2-2.0[facility] Comment on above:Performed By: #### POCGLUC #### [facility] [address] [address] [address] Taylor Mills #0.1 103/ulNormal0.0-0.7The [facility] CenterComment on above: Performed By: #### POCGLUC #### [facility] [address] [address] [address] Taylor Pulliamosinophils/100 WBC (Bld)1.1 %Normal0.9-7.0[facility] Comment on above:Performed By: #### POCGLUC #### [facility] Laboratory [address] [address] [address] Taylor Pulliamrythrocyte distribution width (RBC) [Ratio]12.7 %Ufoixx83.0-15.0 [facility] HospitalComment on above:Performed By: #### POCGLUC #### [facility] [address] [address] [address] Taylor GarciaHematocrit (Bld) [Volume fraction]37.3 %Critically low42.0-54.0 [facility]ucl[facility] HospitalComment on above:Performed By: #### POCGLUC #### [facility] [address] [address] [address] Taylor GarciaHemoglobin (Bld) [Mass/Vol]13.8 g/dLCritically low14.0-18.0The [facility] CenterComment on above:Performed By: #### POCGLUC #### [facility] Laboratory [address] [place] [address] Dr. Taylor Elder #0.05 10e3/ulCritically high0.00-0.03The [facility] Comment on above:Performed By: #### POCGLUC #### [facility] Laboratory [address] [place] [address] Dr. Taylor Elder %0.7 %Critically high0.0-0.5The [facility] CenterComment on above:Performed By: #### POCGLUC #### [facility] [address] [place] [address] Dr. Taylor Del Toro #1.6 103/ulNormal1.2-3.8The [facility] CenterComment on above:Performed By: #### POCGLUC #### [facility] [address] [place] [address] Dr. Taylor Solomonhocytes/100 WBC (Bld)22.8 %Dhlkvi10.5-60.0The [facility] CenterComment on above:Performed By: #### POCGLUC #### [facility] Laboratory [address] [place] [address] Dr. Taylor Diaz DIFF REQNONormalThe [facility] CenterComment on above: Performed By: #### POCGLUC #### [facility] [address] [place] [address] Dr. Taylor Hurst (RBC) [Entitic mass]32.0 vxXrcukq49.9-34.0The [facility] CenterComment on above:Performed By: #### POCGLUC #### [facility] Laboratory [address] [place] [address] Dr. Taylor Marley (RBC) [Mass/Vol]37.0 g/dLCritically high29.9-35.2The [facility] CenterComment on above:Performed By: #### POCGLUC #### [facility] Laboratory [address] [place] [address] Dr. Yilan ChangMCV (RBC) [Entitic vol]86.5 cNZbmgic51.0-94.0The [facility] CenterComment on above:Performed By: #### POCGLUC #### [facility] Laboratory [address] [place] [address] Dr. Taylor Guillen #0.6 103/ulNormal0.3-0.8The [facility] CenterComment on above:Performed By: #### POCGLUC #### [facility] [address] [place] [address] Dr. Taylor Alvarezocytes/100 WBC (Bld)8.2 %Normal1.7-12.0The [facility] Comment on above:Performed By: #### POCGLUC #### [facility] Laboratory [address] [place] [address] Dr. Taylor Hansen #4.8 103/ulNormal1.4-6.5The [facility] CenterComment on above:Performed By: #### POCGLUC #### [facility] Laboratory [address] [place] [address] Dr. Taylor Friedutrophils/100 WBC (Bld)66.8 %Qrcxvf96.0-75.0The [facility] CenterComment on above:Performed By: #### POCGLUC #### [facility] Laboratory [address] [place] [address] Dr. Taylor Venegas mean volume (Bld) [Entitic vol]10.0 fLNormal9.5-13.5The [facility] CenterComment on above:Performed By: #### POCGLUC #### [facility] [address] [place] [address] Dr. Taylor GarciaPLT109 103/ulCritically rys877-494Waf [facility] CenterComment on above:Performed By: #### POCGLUC #### [facility] [address] [place] [address] Dr. Taylor GarciaRBC4.31 106/ulCritically low4.70-6.10The [facility] CenterComment on above:Performed By: #### POCGLUC #### [facility] Laboratory [address] [place] [address] Dr. Taylor GarciaWBC7.2 103/ulNormal4.0-11.0[facility]ucl[facility] HospitalComment on above: Performed By: #### POCGLUC #### [facility] [address] [address] [address] Taylor GarciaCalcium [Mass/volume] in Serum or PlasmaOrdered By: Shaikh Swapnil on 51-62-9465Lwqlweg [Mass/Vol]8.7 mg/dL8.6-10.3FMetroHealth Parma Medical CenterCarbon dioxide, total [Moles/volume] in Serum or PlasmaOrdered By: Shaikh Swapnil on 95-82-3131MT4 [Moles/Vol]19.8 mmol/L21.0-31.0St. [facility] HospitalChloride [Moles/volume] in Serum or PlasmaOrdered By: Shaikh Swapnil on 80-02-9805Mqjkzqay [Moles/Vol]105 mmol/H41-734OpubbotfiSt. Charles HospitalCreatinine [Mass/volume] in Serum or PlasmaOrdered By: Shaikh Swapnil on 63-54-7977Jvzfvbumot [Mass/Vol]0.71 mg/dL0.70-1.30St. [facility] HospitalDIRECT LDLon 55-48-5558Qmhbjkafmrn in LDL [Mass/Vol]73 mg/dLNoSumma Health Akron CampusComment on above:Performed By: #### POCGLUC #### [facility] [address] [address] [address] Taylor GarciaDLDL NORMALSEE Brown Memorial HospitalComment on above: Result Comment: <100 mg/dl OPTIMAL 100 - 129 mg/dl NEAR OR ABOVE OPTIMAL 130 - 159 mg/dl BORDERLINE HIGH 160 - 189 mg/dl HIGH >190 mg/dl VERY HIGHPerformed By: #### POCGLUC #### [facility] [address] [place] [address] Dr. Taylor GarciaGLYCOHEMOGLOBIN A1Con 14-08-9648RXD RECOMMENDATIONSEE BELOWAshtabula County Medical CenterCombaraga county memorial hospital on above:Result Comment: ADA RECOMMENDED LIMIT 4.0 - 6.0 ADA THERAPEUTIC TARGET < 7.0 ACTION SUGGESTED > 7.0Performed By: #### POCGLUC #### [facility] [address] [place] [address] Dr. Taylor GarciaGlucose [Mass/Vol]280 mg/dLCherrington Hospital on above:Performed By: #### POCGLUC #### [facility] [address] [place] [address] Dr. Taylor GarciaHbA1c (Bld) [Mass fraction]11.4 %Critically high4.5-6.2[facility] on above:Performed By: #### POCGLUC #### [facility] [address] [place] [address] Dr. Taylor GarciaGlobulin Calc (S) [Mass/Vol]Ordered By: Shaikh Swapnil on 02-81-1592Qsayxsvz (S) [Mass/Vol]2.3 g/dLSt. Charles Hospital Glucose [Mass/volume] in Serum or PlasmaOrdered By: Shaikh Swapnil on 01-24-2023 Glucose [Mass/Vol]165 mg/dC67-907IzsvbbgdqSt. Charles HospitalComment on above:ADA recommended reference rangeRandom Glucose Reference Range is dependent on time and content of last meal. Glucose of more than 200 mg/dL in a nonstressed, ambulatory subject supports the diagnosisof Diabetes Mellitus.LAB TESTINGon 56-83-4139DJAI HEADERSEE SCANNED REPORT IN [facility] on above:Performed By: #### POCGLUC #### [facility] Laboratory [address] [place] [address] Dr. Taylor Ordoñez FROM REF LAB01/24/2023[facility] on above:Performed By: #### POCGLUC #### [facility] [address] [place] [address] Dr. Taylor Jarquin TO REF LAB01/24/2023[facility] on above:Performed By: #### POCGLUC #### [facility] Laboratory [address] [place] [address] Dr. Taylor Shook 80-77-0452Eziyok [Catalytic activity/Vol]97.0 U/LNormal 73.0-393.0The [facility] CenterComment on above:Performed By: #### POCGLUC #### [facility] Laboratory [address] [place] [address] Dr. Taylor BorregoID PROFILEon 59-77-8354OGGZ-HDL RATIO NORMSTuscarawas HospitalComment on above:Result Comment: 3.3 - 4.4 LOW RISK 4.4 - 7.1 AVERAGE RISK 7.1 - 11.0 MODERATE RISK >11.0 HIGH RISKPerformed By: #### POCGLUC #### [facility] Laboratory [address] [place] [address] Dr. Taylor GarciaCholesterol [Mass/Vol]296 mg/dLCritically high<=200The [facility] CenterComment on above:Performed By: #### POCGLUC #### [facility] Laboratory [address] [place] [address] Dr. Taylor GarciaCholesterol in HDL [Mass/Vol]26 mg/dLCritically kdf20-32Wob [facility] CenterComment on above:Performed By: #### POCGLUC #### [facility] Laboratory [address] [place] [address] Dr. Taylor Yeeesterlorene.total/Cholesterol in HDL [Mass ratio]11.4 {ratio} NormalThe [facility] CenterCombaraga county memorial hospital on above:Performed By: #### POCGLUC #### [facility] Laboratory [address] [place] [address] Dr. Taylor GarciaHDShelly NORMAL> or = 60 mg/dl - LOW CARDIOVASCULAR RISK <40 mg/dl - HIGH CARDIOVASCULAR RISKOhio State Health SystemComment on above:Performed By: #### POCGLUC #### [facility] [address] [place] [address] Dr. Taylor GarciaLDL CALC NORMALSEE [facility] HospitalComment on above:Result Comment: <100 mg/dl OPTIMAL 100 - 129 mg/dl NEAR OR ABOVE OPTIMAL 130 - 159 mg/dl BORDERLINE HIGH 160 - 189 mg/dl HIGH >190 mg/dl VERY HIGH Performed By: #### POCGLUC #### [facility] [address] [address] [address] Taylor GarciaTriglyceride [Mass/Vol]935 mg/dLCritically high<=150[facility] on above:Performed By: #### POCGLUC #### [facility] [address] [address] [address] Taylor GarciaVLDL BCLB359.0 mg/dLNormalThOhioHealth Grove City Methodist HospitalCombaraga county memorial hospital on above: Performed By: #### POCGLUC #### [facility] [address] [address] [address] Taylor GarciaLipase [Enzymatic activity/volume] in Serum or PlasmaOrdered By: Shaikh Swapnil on 53-40-7466Yeobks [Catalytic activity/Vol]34.0 U/L11.0-82.0 [facility] HospitalNo Panel InformationOrdered By: Shaikh Swapnil on 12-26-3865Nhwslfkgq GFR (CKD-EPI)> 60.0 mL/MinSt. Charles HospitalPharmacy Creatinine Clearance (ChemN/[facility] POINT OF CARE GLUCOSEon 93-66-6910Ziskkhx [Mass/Vol]171 mg/dLCritically high 74-106[facility] on above:Performed By: #### POCGLUC #### [facility] [address] [address] [address] Taylor GarciaGlucose [Mass/Vol]168 mg/dLCritically ytuo76-061Vik [facility] CenterCombaraga county memorial hospital on above:Performed By: #### POCGLUC #### [facility] Laboratory [address] [address] [address] Taylor GarciaGlucose [Mass/Vol]249 mg/dLCritically ejnz65-796SfgCleveland Clinic Euclid HospitalCombaraga county memorial hospital on above:Performed By: #### POCGLUC #### [facility] Laboratory [address] [address] [address] Taylor GarciaGlucose [Mass/Vol]126 mg/dLCritically ocec51-395ZqnCleveland Clinic Euclid HospitalComment on above:Performed By: #### POCGLUC #### [facility] Laboratory [address] [address] [address] Taylor GarciaGlucose [Mass/Vol]166 mg/dLCritically zqep26-977OhqCleveland Clinic Euclid HospitalComment on above:Performed By: #### POCGLUC #### [facility] [address] [address] [address] Taylor GarciaGlucose [Mass/Vol]157 mg/dLCritically afaz09-740YnvCleveland Clinic Euclid HospitalComment on above:Performed By: #### POCGLUC #### [facility] [address] [address] [address] Taylor GarciaGlucose [Mass/Vol]156 mg/dLCritically tdyy83-822EzrCleveland Clinic Euclid HospitalComment on above:Performed By: #### POCGLUC #### [facility] [address] [address] [address] Taylor GarciaGlucose [Mass/Vol]97 mg/vCTqiafa28-059RmwCleveland Clinic Euclid Hospital Comment on above:Performed By: #### POCGLUC #### [facility] [address] [address] [address] Taylor GarciaGlucose [Mass/Vol]84 mg/jBWeedww76-940VcxCleveland Clinic Euclid Hospital Comment on above:Performed By: #### POCGLUC #### [facility] [address] [address] [address] Taylor GarciaGlucose [Mass/Vol]74 mg/gBCurmeb47-540IolCleveland Clinic Euclid Hospital Comment on above:Performed By: #### POCGLUC #### [facility] Laboratory [address] [address] [address] Taylor GarciaGlucose [Mass/Vol]79 mg/wPXxjkwd19-108TeqCleveland Clinic Euclid Hospital Comment on above:Performed By: #### POCGLUC #### [facility] [address] [address] [address] Taylor GarciaGlucose [Mass/Vol]117 mg/dLCritically hdsi72-797MjwCleveland Clinic Euclid HospitalComment on above:Performed By: #### POCGLUC #### [facility] [address] [address] [address] Yilan ChangGlucose [Mass/Vol]134 mg/dLCritically vtms73-695Vtd [facility] CenterComment on above:Performed By: #### POCGLUC #### [facility] Laboratory [address] [address] [address] Talyor GarciaGlucose [Mass/Vol]163 mg/dLCritically goku68-270Chc [facility] CenterComment on above:Performed By: #### POCGLUC #### [facility] Laboratory [address] [place] [address] Dr. Taylor GarciaPROF CHEM 8 (BAS METB)on 20-35-9859Kzsvl gap [Moles/Vol]14.4 mmol/LNormalThe [facility] CenterComment on above:Result Comment: [facility]Performed By: #### POCGLUC #### [facility] Laboratory [address] [place] [address] Dr. Taylor GarciaCalcium [Mass/Vol]8.9 mg/dLNormal8.5-10.1The [facility] Comment on above:Result Comment: [facility] hospitalPerformed By: #### POCGLUC #### [facility] Laboratory [address] [place] [address] Dr. Taylor GarciaChloride [Moles/Vol]105 mmol/VIbcnpr46-790Yay [facility] Comment on above:Result Comment: [facility] hospitalPerformed By: #### POCGLUC #### [facility] Laboratory [address] [place] [address] Dr. Taylor GarciaCO2 [Moles/Vol]20.2 mmol/LCritically low21.0-32.0The [facility] CenterCombaraga county memorial hospital on above:Result Comment: [facility] hospitalPerformed By: #### POCGLUC #### [facility] [address] [place] [address] Dr. Taylor GarciaCreatinine [Mass/Vol]0.69 mg/dLCritically low0.70-1.30The [facility] CenterComment on above:Result Comment: [facility] hospitalPerformed By: #### POCGLUC #### [facility] [address] [address] [address] Vazquez ChangEGFR-AF NIGERIEN>60Normal>=60The [facility] CenterComment on above:Performed By: #### POCGLUC #### [facility] [address] [address] [address] Vazquez ChangEGFR-NON AF NIGERIEN>60Normal>=60The [facility] CenterComment on above:Performed By: #### POCGLUC #### [facility] [address] [address] [address] Taylor GarciaGlucose [Mass/Vol]103 mg/jGLqqezs81-036Hdw [facility] Comment on above:Result Comment: [facility] hospitalPerformed By: #### POCGLUC #### [facility] Laboratory [address] [address] [address] Taylor GarciaPotassium [Moles/Vol]3.6 mmol/LNormal3.5-5.1The [facility] Comment on above:Result Comment: [facility] hospitalPerformed By: #### POCGLUC #### [facility] Laboratory [address] [address] [address] Taylor GarciaSodium [Moles/Vol]136 mmol/URuqkzj026-718Bqm [facility] Comment on above:Result Comment: [facility] hospitalPerformed By: #### POCGLUC #### [facility] Laboratory [address] [address] [address] Taylor GarciaUrea nitrogen [Mass/Vol]6.0 mg/dLCritically low7.0-18.0[facility] HospitalComment on above:Result Comment: [facility] hospitalPerformed By: #### POCGLUC #### [facility] Laboratory [address] [address] [address] Taylor GarciaUrea nitrogen/Creatinine [Mass ratio]8.7 mg/mgNormalThe [facility] CenterComment on above:Performed By: #### POCGLUC #### [facility] [address] [address] [address] Yilan ChangPotassium [Moles/volume] in Serum or PlasmaOrdered By: Shaikh Swapnil on 12-33-2336Vfprexnci [Moles/Vol]3.6 mmol/L3.5-5.1FMetroHealth Parma Medical CenterProtein [Mass/volume] in Serum or PlasmaOrdered By: Shaikh Swapnil on 41-58-2325Bzfgtel [Mass/Vol]5.8 g/dL6.4-8.9[facility] Serum or plasma albumin/globulin mass ratioOrdered By: Shaikh Swapnil on 26-35-8515Nhpeqdr/Globulin [Mass ratio]1.5 {ratio}Holzer Health Systemerum or plasma anion gap determinationOrdered By: Shaikh Swapnil on 49-79-6017Pwqgg gap [Moles/Vol]13.8 mmol/L6.0-15.0Holzer Health Systemodium [Moles/volume] in Serum or PlasmaOrdered By: Shaikh Swapnil on 17-35-8252Xvjzlt [Moles/Vol]135 mmol/H114-293HibhlqyvySt. Charles Hospital Urea nitrogen [Mass/volume] in Serum or PlasmaOrdered By: Shaikh Swapnil on 53-93-1710Jjcp nitrogen [Mass/Vol]6 mg/dL7-25[facility] Alanine aminotransferase [Enzymatic activity/volume] in Serum or PlasmaOrdered By: Shaikh Swapnil on 77-53-7077IIP [Catalytic activity/Vol]45 U/L7-52St. [facility] HospitalAlbumin [Mass/volume] in Serum or Plasma by Bromocresol green (BCG) dye binding methoOrdered By: Shaikh Swapnil on 30-44-2350Zirpmjr BCG dye [Mass/Vol]4.0 g/dL3.5-5.7FMetroHealth Parma Medical CenterComment on above: Delta: 5.0 on 01/22/23-8Alkaline phosphatase [Enzymatic activity/volume] in Serum or PlasmaOrdered By: Shaikh Swapnil on 12-44-2029NWO [Catalytic activity/Vol]40 U/M56-578QfbyrpfxwSt. Charles HospitalAspartate aminotransferase [Enzymatic activity/volume] in Serum or PlasmaOrdered By: Shaikh Swapnil on 35-01-0905OAS [Catalytic activity/Vol]See swrqwue35-32ZsksqfjmrSt. Charles HospitalComment on above:Specimen hemolyzed, redraw requested Bilirubin.total [Mass/volume] in Serum or PlasmaOrdered By: Shaikh Swapnil on 48-67-8277Eyocvopej [Mass/Vol]1.1 mg/dL0.3-1.0[facility] CBC AUTO DIFFon 97-68-8725HIIB #0.0 103/ulNormal0.0-0.1[facility] Comment on above:Performed By: #### CBC #### [facility] Laboratory [address] [place] [address] Dr. Taylor GarciaBasophils/100 WBC (Bld)0.3 %Normal0.2-2.0[facility] Comment on above:Performed By: #### CBC #### [facility] Laboratory [address] [address] [address] Taylor Mills #0.1 103/ulNormal0.0-0.7The [facility] CenterComment on above: Performed By: #### CBC #### [facility] Laboratory [address] [place] [address] Dr. Taylor Pulliamosinophils/100 WBC (Bld)0.6 %Critically low0.9-7.0[facility] HospitalComment on above:Performed By: #### CBC #### [facility] Laboratory [address] [place] [address] Dr. Taylor Pulliamrythrocyte distribution width (RBC) [Ratio]12.8 %Ryczpg36.0-15.0 [facility] HospitalComment on above:Performed By: #### CBC #### [facility] Laboratory [address] [place] [address] Dr. Taylor GarciaHematocrit (Bld) [Volume fraction]38.1 %Critically low42.0-54.0 [facility] HospitalComment on above:Performed By: #### CBC #### [facility] Laboratory [address] [place] [address] Dr. Taylor GarciaHemoglobin (Bld) [Mass/Vol]13.3 g/dLCritically low14.0-18.0The [facility] CenterComment on above:Performed By: #### CBC #### [facility] Laboratory [address] [address] [address] Taylor Elder #0.07 10e3/ulCritically high0.00-0.03The [facility] Comment on above:Performed By: #### CBC #### [facility] [address] [address] [address] Taylor Elder %0.7 %Critically high0.0-0.5The [facility] CenterComment on above:Performed By: #### CBC #### [facility] [address] [place] [address] Dr. Taylor Del Toro #1.8 103/ulNormal1.2-3.8The [facility] CenterComment on above:Performed By: #### CBC #### [facility] [address] [place] [address] Dr. Taylor Solomonhocytes/100 WBC (Bld)16.6 %Critically low20.5-60.0The [facility] CenterComment on above:Performed By: #### CBC #### [facility] [address] [place] [address] Dr. Tyalor DamonUAL DIFF REQNONormalThe [facility] CenterComment on above: Performed By: #### CBC #### [facility] [address] [place] [address] Dr. Taylor Marley (RBC) [Entitic mass]30.2 noMaaqsl64.9-34.0The [facility] CenterComment on above:Performed By: #### CBC #### [facility] [address] [place] [address] Dr. Taylor Marley (RBC) [Mass/Vol]34.9 g/mMWrhzyj50.9-35.2The [facility] CenterComment on above:Performed By: #### CBC #### [facility] [address] [address] [address] Taylor MarleyV (RBC) [Entitic vol]86.6 xPHyybnw69.0-94.0The [facility] CenterComment on above:Performed By: #### CBC #### [facility] [address] [place] [address] Dr. Taylor Guillen #0.7 103/ulNormal0.3-0.8The [facility] CenterComment on above:Performed By: #### CBC #### [facility] [address] [place] [address] Dr. Taylor Alvarezocytes/100 WBC (Bld)6.9 %Normal1.7-12.0[facility] Comment on above:Performed By: #### CBC #### [facility] [address] [place] [address] Dr. Taylor Hansen #7.9 103/ulCritically high1.4-6.5The [facility] Comment on above:Performed By: #### CBC #### [facility] [address] [place] [address] Dr. Taylor Friedutrophils/100 WBC (Bld)74.9 %Elgwqm29.0-75.0The [facility] CenterComment on above:Performed By: #### CBC #### [facility] [address] [place] [address] Dr. Taylor Tomaslet mean volume (Bld) [Entitic vol]10.8 fLNormal9.5-13.5The [facility] CenterComment on above:Performed By: #### CBC #### [facility] [address] [place] [address] Dr. Taylor GarciaPLT123 103/ulCritically hpc364-279Tle [facility] CenterComment on above:Performed By: #### CBC #### [facility] [address] [place] [address] Dr. Taylor GarciaRBC4.40 106/ulCritically low4.70-6.10The [facility] CenterComment on above:Performed By: #### CBC #### [facility] [address] [address] [address] Taylor GarciaWBC10.6 103/ulNormal4.0-11.0The [facility] CenterComment on above:Performed By: #### CBC #### [facility] [address] [address] [address] Taylor GarciaCalcium [Mass/volume] in Serum or PlasmaOrdered By: Shaikh Swapnil on 50-81-6783Blhqzzd [Mass/Vol]8.9 mg/dL8.6-10.3FMetroHealth Parma Medical CenterCarbon dioxide, total [Moles/volume] in Serum or PlasmaOrdered By: Shaikh Swapnil on 81-26-6624FM0 [Moles/Vol]21.8 mmol/L21.0-31.0[facility]. [facility] HospitalChloride [Moles/volume] in Serum or PlasmaOrdered By: Shaikh Swapnil on 35-65-0517Ofpbntho [Moles/Vol]103 mmol/TPsqrpa55-049PqbqzogdlSt. Charles HospitalComment on above:Performed By: #### POCGLUC #### [facility] [address] [address] [address] Taylor GarciaCreatinine [Mass/volume] in Serum or PlasmaOrdered By: Shaikh Swapnil on 51-23-6701Drhyrwxsqh [Mass/Vol]0.63 mg/dL0.70-1.30St. [facility] HospitalDIRECT LDLon 52-38-8994Pmphhxwwddj in LDL [Mass/Vol]67 mg/dLNormal [facility] HospitalComment on above:Performed By: #### POCGLUC #### [facility] [address] [address] [address] Taylor GarciaDLDL NORMALSEE BELOWNoAdena Fayette Medical CenterComment on above: Result Comment: <100 mg/dl OPTIMAL 100 - 129 mg/dl NEAR OR ABOVE OPTIMAL 130 - 159 mg/dl BORDERLINE HIGH 160 - 189 mg/dl HIGH >190 mg/dl VERY HIGHPerformed By: #### POCGLUC #### [facility] [address] [address] [address] Taylor GarciaGLYCOHEMOGLOBIN A1Con 37-16-6126UQO RECOMMENDATIONSEE BELOWNormal [facility] HospitalCombaraga county memorial hospital on above:Result Comment: ADA RECOMMENDED LIMIT 4.0 - 6.0 ADA THERAPEUTIC TARGET < 7.0 ACTION SUGGESTED > 7.0Performed By: #### POCGLUC #### [facility] [address] [address] [address] Taylor GarciaGlucose [Mass/Vol]266 mg/dLNormalThe [facility] CenterComment on above:Performed By: #### POCGLUC #### [facility] [address] [address] [address] Taylor GarciaHbA1c (Bld) [Mass fraction]10.9 %Critically high4.5-6.2The [facility] CenterCombaraga county memorial hospital on above:Performed By: #### POCGLUC #### [facility] [address] [address] [address] Taylor GarciaGlobulin Calc (S) [Mass/Vol]Ordered By: Shaikh Swapnil on 04-60-1745Xjyveuec (S) [Mass/Vol]2.5 g/dLSt. Charles Hospital Glucose [Mass/volume] in Serum or PlasmaOrdered By: Shaikh Swapnil on 01-23-2023 Glucose [Mass/Vol]193 mg/sQ24-298GkbokzmuqSt. Charles HospitalComment on above:Delta: 65 on 01/23/23-1635ADA recommended reference rangeRandom Glucose Reference Range is dependent on time and content of last meal. Glucose of more than 200 mg/dL in a nonstressed, ambulatory subject supports the diagnosis of Diabetes Mellitus.LIPID PROFILEon 33-36-0007DJYE-HDL RATIO NORMSEE BELOWNormal [facility] HospitalCombaraga county memorial hospital on above:Result Comment: 3.3 - 4.4 LOW RISK 4.4 - 7.1 AVERAGE RISK 7.1 - 11.0 MODERATE RISK >11.0 HIGH RISKPerformed By: #### POCGLUC #### [facility] [address] [address] [address] Taylor GarciaCholesterol [Mass/Vol]320 mg/dLCritically high<=200The [facility] HospitalComment on above:Performed By: #### POCGLUC #### [facility] [address] [address] [address] Taylor GarciaCholesterol in HDL [Mass/Vol]27 mg/dLCritically vpx08-17Eav [facility] CenterComment on above:Performed By: #### POCGLUC #### [facility] [address] [address] [address] Taylor Yeeesterol.total/Cholesterol in HDL [Mass ratio]11.9 {ratio} NormalCleveland Clinic Euclid HospitalComment on above:Performed By: #### POCGLUC #### [facility] [address] [address] [address] Taylor Puentes NORMAL> or = 60 mg/dl - LOW CARDIOVASCULAR RISK <40 mg/dl - HIGH CARDIOVASCULAR RISKNoAdena Fayette Medical CenterComment on above:Performed By: #### POCGLUC #### [facility] [address] [address] [address] Taylor GarciaTriglyceride [Mass/Vol]1599 mg/dLCritically high<=150The [facility] CenterComment on above:Performed By: #### POCGLUC #### [facility] [address] [address] [address] Taylor GarciaVLDL QIKN083.8 mg/dLNoAdena Fayette Medical CenterComment on above: Performed By: #### POCGLUC #### [facility] [address] [address] [address] Taylor Johnson Panel InformationOrdered By: Shaikh Swapnil on 01-23-2023 Estimated GFR (CKD-EPI)> 60.0 mL/MinSt. Charles HospitalPharmacy Creatinine Clearance (ChemN/[facility] HospitalPOINT OF CARE GLUCOSEon 56-14-5512Lzdvrgp [Mass/Vol]224 mg/dLCritically vnld75-163Ofw [facility] CenterComment on above:Performed By: #### POCGLUC #### [facility] [address] [address] [address] Taylor GarciaGlucose [Mass/Vol]142 mg/dLCritically ttrd16-670Izs [facility] HospitalComment on above:Performed By: #### POCGLUC #### [facility] [address] [address] [address] Taylor GarciaGlucose [Mass/Vol]102 mg/dOXqbdta31-570ZohCleveland Clinic Euclid Hospital Comment on above:Performed By: #### POCGLUC #### [facility] [address] [address] [address] Taylor GarciaGlucose [Mass/Vol]100 mg/iDAbefax26-865EgrCleveland Clinic Euclid Hospital Comment on above:Performed By: #### POCGLUC #### [facility] [address] [address] [address] Taylor GarciaGlucose [Mass/Vol]84 mg/kAFwukti96-111FhiCleveland Clinic Euclid Hospital Comment on above:Performed By: #### POCGLUC #### [facility] [address] [address] [address] Taylor GarciaGlucose [Mass/Vol]72 mg/dLCritically zci11-603OleCleveland Clinic Euclid HospitalComment on above:Performed By: #### POCGLUC #### [facility] [address] [address] [address] Taylor GarciaGlucose [Mass/Vol]69 mg/dLCritically jzo73-743NfvCleveland Clinic Euclid HospitalCombaraga county memorial hospital on above:Performed By: #### POCGLUC #### [facility] [address] [address] [address] Taylor GarciaGlucose [Mass/Vol]78 mg/kXOflifu89-557MieCleveland Clinic Euclid Hospital Comment on above:Performed By: #### POCGLUC #### [facility] [address] [address] [address] Taylor GarciaGlucose [Mass/Vol]114 mg/dLCritically zoll20-575XcyCleveland Clinic Euclid HospitalCombaraga county memorial hospital on above:Performed By: #### POCGLUC #### [facility] [address] [address] [address] Taylor GarciaGlucose [Mass/Vol]185 mg/dLCritically dacu90-655BbyCleveland Clinic Euclid HospitalComment on above:Performed By: #### POCGLUC #### [facility] [address] [address] [address] Taylor GarciaGlucose [Mass/Vol]230 mg/dLCritically icjc95-451Mhe [facility] CenterComment on above:Performed By: #### POCGLUC #### [facility] [address] [address] [address] Taylor GarciaGlucose [Mass/Vol]253 mg/dLCritically gdvn95-992Gym [facility] CenterComment on above:Performed By: #### POCGLUC #### [facility] [address] [address] [address] Taylor GarciaPROF CHEM 8 (BAS METB)on 74-48-9316Vhkkd gap [Moles/Vol]13.1 mmol/LNormalThe [facility]ment on above:Performed By: #### POCGLUC #### [facility] [address] [address] [address] Taylor GarciaCalcium [Mass/Vol]8.9 mg/dLNormal8.5-10.1The [facility] Comment on above:Performed By: #### POCGLUC #### [facility] [address] [address] [address] Taylor GarciaChloride [Moles/Vol]103 mmol/MVstddr61-247Wnr [facility] Comment on above:Performed By: #### POCGLUC #### [facility] [address] [address] [address] Taylor GarciaCO2 [Moles/Vol]21.8 mmol/FQemfmf04.0-32.0[facility] Comment on above:Performed By: #### POCGLUC #### [facility] [address] [address] [address] Taylor GarciaCreatinine [Mass/Vol]0.63 mg/dLCritically low0.70-1.30The [facility] on above:Performed By: #### POCGLUC #### [facility] [address] [address] [address] Vazquez ChangEGFR-AF NIGERIEN>60Normal>=60The [facility] HospitalComment on above:Performed By: #### POCGLUC #### [facility] [address] [address] [address] Taylor PulliamGFR-NON AF NIGERIEN>60Normal>=60The [facility] CenterComment on above:Performed By: #### POCGLUC #### [facility] [address] [address] [address] Taylor GarciaGlucose [Mass/Vol]193 mg/dLCritically bzak94-875Vco [facility] CenterComment on above:Performed By: #### POCGLUC #### [facility] [address] [address] [address] Taylor GarciaPotassium [Moles/Vol]3.9 mmol/LNormal3.5-5.1The [facility] Comment on above:Performed By: #### POCGLUC #### [facility] [address] [address] [address] Taylor GarciaSodium [Moles/Vol]134 mmol/LCritically vgu438-170Gbi [facility] CenterComment on above:Performed By: #### POCGLUC #### [facility] [address] [address] [address] Taylor GarciaUrea nitrogen [Mass/Vol]6.0 mg/dLCritically low7.0-18.0The [facility] CenterComment on above:Performed By: #### POCGLUC #### [facility] [address] [address] [address] Taylor GarciaUrea nitrogen/Creatinine [Mass ratio]9.5 mg/mgNormalThe [facility] CenterComment on above:Performed By: #### POCGLUC #### [facility] [address] [address] [address] Taylor Lobatoon gap [Moles/Vol]12.8 mmol/LNormalThe [facility] Comment on above:Performed By: #### POCGLUC #### [facility] [address] [address] [address] Taylor GarciaCalcium [Mass/Vol]9.2 mg/dLNormal8.5-10.1[facility] Comment on above:Performed By: #### POCGLUC #### [facility] [address] [address] [address] Taylor GarciaCO2 [Moles/Vol]22.6 mmol/VSoqcac65.0-32.0The [facility] Comment on above:Performed By: #### POCGLUC #### [facility] [address] [place] [address] Dr. Taylor GarciaCreatinine [Mass/Vol]0.72 mg/dLNormal0.70-1.30The [facility] CenterComment on above:Performed By: #### POCGLUC #### [facility] [address] [place] [address] Dr. Taylor GarciaGlucose [Mass/Vol]65 mg/dLCritically ffw05-835Edg [facility] CenterComment on above:Performed By: #### POCGLUC #### [facility] [address] [place] [address] Dr. Taylor GarciaPotassium [Moles/Vol]3.4 mmol/LCritically low3.5-5.1The [facility] CenterComment on above:Performed By: #### POCGLUC #### [facility] [address] [place] [address] Dr. Taylor GarciaSodium [Moles/Vol]135 mmol/LCritically dgh091-069Tpl [facility] CenterComment on above:Performed By: #### POCGLUC #### [facility] [address] [place] [address] Dr. Taylor GarciaUrea nitrogen [Mass/Vol]7.0 mg/dLNormal7.0-18.0The [facility] CenterComment on above:Performed By: #### POCGLUC #### [facility] [address] [place] [address] Dr. Taylor Courtney nitrogen/Creatinine [Mass ratio]9.7 mg/mgNormalThe [facility] CenterComment on above:Performed By: #### POCGLUC #### [facility] [address] [place] [address] Dr. Taylor GarciaPotassium [Moles/volume] in Serum or PlasmaOrdered By: Shaikh Swapnil on 46-04-4404Wgnisldjc [Moles/Vol]3.9 mmol/L3.5-5.1FMetroHealth Parma Medical CenterComment on above:Hemolysis is present at a level that could interfere with the result.Protein [Mass/volume] in Serum or PlasmaOrdered By: Shaikh Swapnil on 66-57-0855Deaqzky [Mass/Vol]6.5 g/dL6.4-8.9Holzer Health Systemerum or plasma albumin/globulin mass ratioOrdered By: Shaikh Swapnil on 44-52-9016Fwegzms/Globulin [Mass ratio]1.6 {ratio}Holzer Health Systemerum or plasma anion gap determinationOrdered By: Shaikh Swapnil on 68-83-5065Nhxap gap [Moles/Vol]13.1 mmol/L6.0-15.0Holzer Health Systemodium [Moles/volume] in Serum or PlasmaOrdered By: Shaikh Swapnil on 48-65-0775Rylnyx [Moles/Vol]134 mmol/G531-298FlsdavvmySt. Charles Hospital Urea nitrogen [Mass/volume] in Serum or PlasmaOrdered By: Shaikh Swapnil on 67-77-9897Fsvd nitrogen [Mass/Vol]6 mg/dL7-25[facility] Alanine aminotransferase [Enzymatic activity/volume] in Serum or PlasmaOrdered By: NON STAFF on 09-50-1002NLL [Catalytic activity/Vol]75 U/L7-52St. Charles HospitalAlbumin [Mass/volume] in Serum or Plasma by Bromocresol green (BCG) dye binding methoOrdered By: NON STAFF on 04-08-4542Kqzitgb BCG dye [Mass/Vol]5.0 g/dL3.5-5.7FMetroHealth Parma Medical CenterAlkaline phosphatase [Enzymatic activity/volume] in Serum or PlasmaOrdered By: NON STAFF on 48-64-1044EQT [Catalytic activity/Vol]60 U/K40-277YjxlngkpuSt. Charles HospitalAspartate aminotransferase [Enzymatic activity/volume] in Serum or Plasma Ordered By: NON STAFF on 39-78-1408ILY [Catalytic activity/Vol]22 U/L13-39 St[address] Charles HospitalBilirubin.total [Mass/volume] in Serum or PlasmaOrdered By: NON STAFF on 27-99-1335Uyrpvosel [Mass/Vol]1.1 mg/dL0.3-1.0 [facility] Charles HospitalCBC AUTO DIFFon 06-28-2907FSSD #0.1 103/ul Normal0.0-0.1The [facility] CenterComment on above:Performed By: #### POCGLUC #### [facility] [address] [address] [address] Taylor GarciaBasophils/100 WBC (Bld)0.4 %Normal0.2-2.0The [facility] Comment on above:Performed By: #### POCGLUC #### [facility] [address] [address] [address] Vazquez ChangEO #0.0 103/ulNormal0.0-0.7The [facility] CenterComment on above: Performed By: #### POCGLUC #### [facility] [address] [address] [address] Taylor Pulliamosinophils/100 WBC (Bld)0.2 %Critically low0.9-7.0The [facility] CenterComment on above:Performed By: #### POCGLUC #### [facility] [address] [address] [address] Taylor Pulliamrythrocyte distribution width (RBC) [Ratio]12.4 %Mlzagd64.0-15.0 The [facility] CenterComment on above:Performed By: #### POCGLUC #### [facility] [address] [address] [address] Taylor GarciaHematocrit (Bld) [Volume fraction]44.1 %Bhujax93.0-54.0The [facility] CenterComment on above:Performed By: #### POCGLUC #### [facility] [address] [address] [address] Taylor GarciaHemoglobin (Bld) [Mass/Vol]16.9 g/gTKdkoiu21.0-18.0The [facility] HospitalComment on above:Performed By: #### POCGLUC #### [facility] [address] [address] [address] Taylor Elder #0.11 10e3/ulCritically high0.00-0.03The [facility] on above:Performed By: #### POCGLUC #### [facility] [address] [address] [address] Taylor Eledr %0.8 %Critically high0.0-0.5The [facility] CenterComment on above:Performed By: #### POCGLUC #### [facility] [address] [address] [address] Taylor Del Toro #1.3 103/ulNormal1.2-3.8The [facility] CenterComment on above:Performed By: #### POCGLUC #### [facility] [address] [address] [address] Taylor Solomonhocytes/100 WBC (Bld)9.7 %Critically low20.5-60.0The [facility] CenterComment on above:Performed By: #### POCGLUC #### [facility] [address] [address] [address] Taylor DamonUAL DIFF REQNONormalThe [facility] CenterComment on above: Performed By: #### POCGLUC #### [facility] [address] [address] [address] Taylor Marley (RBC) [Entitic mass]32.1 hqHbwyvu26.9-34.0The [facility] CenterComment on above:Performed By: #### POCGLUC #### [facility] [address] [address] [address] Taylor Marley (RBC) [Mass/Vol]38.3 g/dLCritically high29.9-35.2The [facility] CenterComment on above:Performed By: #### POCGLUC #### [facility] [address] [address] [address] Taylor Marley (RBC) [Entitic vol]83.8 cEIeauba31.0-94.0The [facility] CenterComment on above:Performed By: #### POCGLUC #### [facility] [address] [place] [address] Dr. Taylor Guillen #0.9 103/ulCritically high0.3-0.8The [facility] Comment on above:Performed By: #### POCGLUC #### [facility] [address] [place] [address] Dr. Taylor Alvarezocytes/100 WBC (Bld)6.7 %Normal1.7-12.0The [facility] Comment on above:Performed By: #### POCGLUC #### [facility] [address] [place] [address] Dr. Taylor Hansen #11.1 103/ulCritically high1.4-6.5The [facility] Comment on above:Performed By: #### POCGLUC #### [facility] [address] [place] [address] Dr. Taylor Friedutrophils/100 WBC (Bld)82.2 %Critically high43.0-75.0The [facility] CenterComment on above:Performed By: #### POCGLUC #### [facility] [address] [place] [address] Dr. Taylor Venegas mean volume (Bld) [Entitic vol]9.6 fLNormal9.5-13.5The [facility] CenterComment on above:Performed By: #### POCGLUC #### [facility] [address] [place] [address] Dr. Taylor GarciaPLT161 103/dyDnrpvd487-435Ohr [facility] CenterComment on above: Performed By: #### POCGLUC #### [facility] [address] [place] [address] Dr. Taylor GarciaRBC5.54 106/ulNormal4.70-6.10The [facility] CenterComment on above:Performed By: #### POCGLUC #### [facility] [address] [place] [address] Dr. Taylor GarciaWBC13.5 103/ulCritically high4.0-11.0The [facility] CenterComment on above:Performed By: #### POCGLUC #### [facility] [address] [address] [address] Taylor GarciaCT ABD/PELVIS WO CONon 33-88-6861HS ABD/PELVIS WO CONEXAMINATION: CT ABD/PELVIS WO CON, [...] Electronically authenticated by: BRIGITTE BROWN Date: 2023-01-22 16:08[facility] SystemCULTURE BLOODon 76-23-1071Rulvspmnwdu examination of blood, cultureCulture Observations: NO GROWTH AT 5 DAYS. Isolate 1 BC_BA_SimeonMansfield HospitalCombaraga county memorial hospital on above:Performed By: #### POCGLUC #### [facility] [address], [place] [address] Dr. Taylor GarciaMicroscopic examination of blood, cultureCulture Observations: NO GROWTH AT 5 DAYS. Isolate 1 BC_BA_SimeonMansfield HospitalComment on above:Performed By: #### POCGLUC #### [facility] [address] [address] [address] Taylor GarciaCalcium [Mass/volume] in Serum or PlasmaOrdered By: NON STAFF on 86-32-3232Yxbjhme [Mass/Vol]9.9 mg/dL8.6-10.3FMetroHealth Parma Medical Center Carbon dioxide, total [Moles/volume] in Serum or PlasmaOrdered By: NON STAFF on 53-02-0265QD4 [Moles/Vol]21.5 mmol/L21.0-31.0[facility] Chloride [Moles/volume] in Serum or PlasmaOrdered By: NON STAFF on 01-22-2023 Chloride [Moles/Vol]95 mmol/O73-743PtdllkdskSt. Charles HospitalCovid-19 PCR (CVDTBH)on 30-23-0348RMXP-CoV-2 (COVID-19) RNA HEIDY+probe Ql (Unsp spec)Not detectedNormalNOT DETECTEDThe [facility] on above:Result Comment: When diagnostic [...] for this test is supported by the [employer] Supervisor of Health and Human Service's declaration that [...] longer be used).Performed By: #### POCGLUC #### [facility] [address], [place] [address] Dr. Taylor GarciaCreatinine [Mass/volume] in Serum or PlasmaOrdered By: NON STAFF on 24-52-3930Vdpxdmgkpo [Mass/Vol]0.94 mg/dL0.70-1.30[facility] HospitalDIRECT LDLon 62-21-6545Krrhwufljbl in LDL [Mass/Vol]137 mg/dLOhio State Health SystemComment on above:Performed By: #### POCGLUC #### [facility] [address] [place] [address] Dr. Taylor Cruz NORMALSEE BELOWOhio State Health SystemComment on above: Result Comment: <100 mg/dl OPTIMAL 100 - 129 mg/dl NEAR OR ABOVE OPTIMAL 130 - 159 mg/dl BORDERLINE HIGH 160 - 189 mg/dl HIGH >190 mg/dl VERY HIGHPerformed By: #### POCGLUC #### [facility] [address] [place] [address] Dr. Taylor Rodriguez URINE PROFILEon 16-60-7663Okykcjyuc Ql (U)NegativeNormal NEGATIVECleveland Clinic Euclid HospitalComment on above:Performed By: #### POCGLUC #### [facility] [address] [address] [address] Taylor GarciaClarity (U)CLEARNormalCLEARCleveland Clinic Euclid HospitalComment on above: Performed By: #### POCGLUC #### [facility] [address] [address] [address] Taylor Alvarenga (U)LT. YELLOWNormalYELLOWCleveland Clinic Euclid HospitalComment on above:Performed By: #### POCGLUC #### [facility] [address] [address] [address] Taylor Muñoz micrscopic examination will be performed if indicated. NormalCleveland Clinic Euclid HospitalComment on above:Performed By: #### POCGLUC #### [facility] [address] [address] [address] Taylor GarciaGlucose Ql (U)500 mg/dlAbnormalNEGATIVECleveland Clinic Euclid Hospital Comment on above:Performed By: #### POCGLUC #### [facility] [address] [place] [address] Dr. Taylor GarciaHemoglobin Ql (U)TRACE-INTACTAbnormalNEGATIVECleveland Clinic Euclid HospitalComment on above:Performed By: #### POCGLUC #### [facility] [address] [place] [address] Dr. Taylor Toth Ql (U)>=80AbnormalNEGATIVEThe [facility] CenterComment on above:Performed By: #### POCGLUC #### [facility] [address] [place] [address] Dr. Taylor GarciaLEUKOCYTESNegativeNormalNEGATIVECleveland Clinic Euclid HospitalComment on above:Performed By: #### POCGLUC #### [facility] [address] [place] [address] Dr. Taylor Chang Ql (U)NegativeNormalNEGATIVEThe [facility] CenterComment on above:Performed By: #### POCGLUC #### [facility] [address] [place] [address] Dr. Taylor GarciapH (U)5.5 [pH]Normal5-9The [facility] CenterComment on above: Performed By: #### POCGLUC #### [facility] [address] [place] [address] Dr. Taylor GarciaProtein (U) [Mass/Vol]30 mg/dLAbnormalNEGATIVE/ TRACEThe [facility] CenterComment on above:Performed By: #### POCGLUC #### [facility] [address] [place] [address] Dr. Taylor GarciaSPEC GRAVITY1.633Dukyks2.005-<=1.025The [facility] CenterCombaraga county memorial hospital on above:Performed By: #### POCGLUC #### [facility] [address] [place] [address] Dr. Taylor Brown MICRO INDINDICATEDNormalThe [facility] CenterComment on above: Performed By: #### POCGLUC #### [facility] [address] [place] [address] Dr. Taylor Hobbsgen Qn (U)0.2 {Sheridan'U}/dLNormal0.2 - 1.0The [facility] CenterComment on above:Performed By: #### POCGLUC #### [facility] [address] [address] [address] Taylor GarciaGlobulin Calc (S) [Mass/Vol]Ordered By: NON STAFF on 01-22-2023 Globulin (S) [Mass/Vol]2.6 g/dLSt. Charles HospitalGlucose [Mass/volume] in Serum or PlasmaOrdered By: NON STAFF on 11-75-2420Dgnkhqs [Mass/Vol]331 mg/tK53-822BsxnpbidnSt. Charles HospitalComment on above:ADA recommended reference rangeRandom Glucose Reference Range is dependent on time and content of last meal. Glucose of more than 200 mg/dL in a nonstressed, ambulatory subject supports the diagnosisof Diabetes Mellitus.LIPID PROFILEon 27-07-2452VVZD-HDL RATIO NORMSEE Brown Memorial HospitalCombaraga county memorial hospital on above:Result Comment: 3.3 - 4.4 LOW RISK 4.4 - 7.1 AVERAGE RISK 7.1 - 11.0 MODERATE RISK >11.0 HIGH RISKPerformed By: #### POCGLUC #### [facility] [address] [address] [address] Taylor Yeeesterol [Mass/Vol]380 mg/dLCritically high<=200Cleveland Clinic Euclid HospitalCombaraga county memorial hospital on above:Performed By: #### POCGLUC #### [facility] [address] [address] [address] Taylor Yeeesterol in HDL [Mass/Vol]33 mg/dLCritically oku69-16TupCleveland Clinic Euclid HospitalCombaraga county memorial hospital on above:Performed By: #### POCGLUC #### [facility] [address] [address] [address] Taylor Miller.total/Cholesterol in HDL [Mass ratio]11.5 {ratio} NormalCleveland Clinic Euclid HospitalCombaraga county memorial hospital on above:Performed By: #### POCGLUC #### [facility] [address] [address] [address] Taylor Puentes NORMAL> or = 60 mg/dl - LOW CARDIOVASCULAR RISK <40 mg/dl - HIGH CARDIOVASCULAR RISKOhio State Health SystemCombaraga county memorial hospital on above:Performed By: #### POCGLUC #### [facility] [address] [address] [address] Taylor GarciaLDL CALC NORMALSEE BELOWOhio State Health SystemComment on above:Result Comment: <100 mg/dl OPTIMAL 100 - 129 mg/dl NEAR OR ABOVE OPTIMAL 130 - 159 mg/dl BORDERLINE HIGH 160 - 189 mg/dl HIGH >190 mg/dl VERY HIGH Performed By: #### POCGLUC #### [facility] [address] [address] [address] Taylor GarciaTriglyceride [Mass/Vol]4548 mg/dLCritically high<=150Cleveland Clinic Euclid HospitalComment on above:Performed By: #### POCGLUC #### [facility] [address] [address] [address] Taylor GarciaVLDL ORZM775.6 mg/dLOhio State Health SystemComment on above: Performed By: #### POCGLUC #### [facility] [address] [address] [address] Taylor GarciaLactate [Moles/volume] in Serum or PlasmaOrdered By: NON STAFF on 38-90-1762Gywnzaf [Moles/Vol]1.0 mmol/L0.5-2.2FMetroHealth Parma Medical Center Lipase [Enzymatic activity/volume] in Serum or PlasmaOrdered By: NON STAFF on 88-60-0778Vfjfse [Catalytic activity/Vol]112.0 U/L11.0-82.0St. [facility] HospitalNo Panel InformationOrdered By: NON STAFF on 89-79-5675Dddkdikos GFR (CKD-EPI)> 60.0 mL/MinSt. Charles HospitalPharmacy Creatinine Clearance (ChemN/[facility] HospitalPOINT OF CARE GLUCOSEon 70-41-7834Kvyvblt [Mass/Vol]523 mg/dLCritically jfrk34-563FwdCleveland Clinic Euclid Hospital Comment on above:Result Comment: Will Repeat TestPerformed By: #### POCGLUC #### [facility] [address] [address] [address] Taylor GarciaPotassium [Moles/volume] in Serum or PlasmaOrdered By: NON STAFF on 59-89-9798Tzgamqoei [Moles/Vol]4.1 mmol/L3.5-5.1FMetroHealth Parma Medical CenterProtein [Mass/volume] in Serum or PlasmaOrdered By: NON STAFF on 73-48-6318Zkoaecj [Mass/Vol]7.6 g/dL6.4-8.9[facility] Serum or plasma albumin/globulin mass ratioOrdered By: NON STAFF on 01-22-2023 Albumin/Globulin [Mass ratio]1.9 {ratio}Holzer Health Systemerum or plasma anion gap determinationOrdered By: NON STAFF on 52-39-5314Uqsxd gap [Moles/Vol]20.6 mmol/L6.0-15.0Holzer Health Systemodium [Moles/volume] in Serum or PlasmaOrdered By: NON STAFF on 76-57-9300Rigcgn [Moles/Vol]133 mmol/Y188-739RfwxxiyczSt. Charles HospitalURINE MICROSCOPIC ONLYon 41-72-9165YUPMBXATYXHH SEENNormalNONE SEENThe [facility] CenterComment on above:Performed By: #### POCGLUC #### [facility] [address] [place] [address] Dr. Taylor Parmar identified Cx Nom (U)NOT INDICATEDOhio State Health SystemComment on above:Performed By: #### POCGLUC #### [facility] [address] [address] [address] Taylor Patel SEENNormalNONE SEENCleveland Clinic Euclid HospitalCombaraga county memorial hospital on above:Performed By: #### POCGLUC #### [facility] [address] [address] [address] Taylor Owens LM Nom (Urine sed)NONE SEENNormalNONE SEENCleveland Clinic Euclid HospitalComment on above:Performed By: #### POCGLUC #### [facility] [address] [address] [address] Taylor Valentethelial cells LM Ql (Urine sed)NONE SEENNormalNONE SEEN /RARE The [facility] CenterComment on above:Performed By: #### POCGLUC #### [facility] [address] [address] [address] Taylor Pozo SEENNormalNONE SEENThe [facility]quette Lake HospitalComment on above:Performed By: #### POCGLUC #### [facility] [address] [address] [address] Taylor GarciaThgtmNLM8-7Vhemkf7-9Pfo [facility] CenterCombaraga county memorial hospital on above:Performed By: #### POCGLUC #### [facility] [address], [place] [address] Dr. Taylor GarciaWBC0-2AbnormalNONBradly SEENThe [facility] CenterComment on above: Performed By: #### POCGLUC #### [facility] [address], [place] [address] Dr. Taylor GarciaUrea nitrogen [Mass/volume] in Serum or PlasmaOrdered By: NON STAFF on 50-56-8581Nrnl nitrogen [Mass/Vol]10 mg/dL7-25St. [facility] HospitalXR CHEST 1 Von 81-22-2187KJ CHEST 1 VEXAMINATION: XR CHEST 1 V [...] Electronically authenticated by: CÉSAR SALES Date: 2023-01-22 14:40[facility] State Health SystemXR FOOT LEFT (MIN 3 VIEWS)on 41-53-8555CQ FOOT LEFT (MIN 3 VIEWS)EXAMINATION: THREE XRAY [...] Signed by: Rimma Nunn MD 04/23/22 Final resultNormalKettering Health TroyHemoglobin A1Con 59-39-9718Uspdaon [Mass/Vol]97 mg/dLNormalKettering Health TroyCombaraga county memorial hospital on above:Result Comment: The ADA and AACC recommend providing the estimated average glucose result to permit better patient understanding of their HBA1c result.Performed By: #### LIPR #### [facility] [address] [place] [address] First Assistant: Yogesh Lehman DO #### GLYHGB #### [address] [address] First Assistant: Frank Otero MDHbA1c (Bld) [Mass fraction]5.0 %Normal4.0-6.0 [facility] TroyCombaraga county memorial hospital on above:Performed By: #### LIPR #### [facility] [place] [address] First Assistant: Yogesh Lehman DO #### GLYHGB #### [address] [address] First Assistant: Frank Otero MDLipid Profileon 52-64-4882Sbxssyqsgxk [Mass/Vol] 161 mg/dLNormal<200K[facility] TroyCombaraga county memorial hospital on above:Result Comment: Cholesterol Guidelines: <200 Desirable 200-240 Borderline >240 UndesirablePerformed By: #### LIPR #### [facility] [address] [place] [address] First Assistant: Yogesh Lehman DO #### GLYHGB #### [address] [address] First Assistant: EDNA Modiholesterol in HDL [Mass/Vol]26 mg/dLLow>40[facility] TroyCombaraga county memorial hospital on above:Result Comment: HDL Guidelines: <40 Undesirable 40-59 Borderline >59 DesirablePerformed By: #### LIPR #### [facility] [address] [place] [address] First Assistant: Yogesh Lehman DO #### GLYHGB #### [facility] [address] [place] [address] First Assistant: EDNA Modiholesterol in LDL [Mass/Vol]83 mg/dLNormal0-130 [facility] TroyCombaraga county memorial hospital on above:Result Comment: LDL Guidelines: <100 Desirable 100-129 Near to/above Desirable 130-159 Borderline >159 Undesirable Direct (measured) LDL and calculated LDL are not interchangeable tests.Performed By: #### LIPR #### [facility] [address] [place] [address] First Assistant: Yogesh Lehman DO #### GLYHGB #### [address] [address] First Assistant: EDNA Modiholesteboni.total/Cholesterol in HDL [Mass ratio]6.2 {ratio}High<5[facility] Medical CenterCombaraga county memorial hospital on above:Performed By: #### LIPR #### [facility] [address] [place] [address] First Assistant: Yogesh Lehman DO #### GLYHGB #### [address] [address] First Assistant: Frank Otero MDTriglyceride [Mass/Vol]260 mg/dLHigh<150[facility] Medical CenterCombaraga county memorial hospital on above:Result Comment: Triglyceride Guidelines: <150 Desirable 150-199 Borderline 200-499 High >499 Very high Based on AHA Guidelines for fasting triglyceride, July 2012.Performed By: #### LIPR #### [facility] [address] [place] [address] First Assistant: Yogesh Lehman DO #### GLYHGB #### [facility] [address] [place] [address] First Assistant: Frank Otero [facility] with Diffon 22-07-2482Nuq. Basophil0.00 k/uL Normal0.0-0.2[facility] Medical CenterCombaraga county memorial hospital on above:Performed By: #### ALCB, CDP, CMPX #### [facility] [address] [place] [address] First Assistant: Yogesh Lehman DOAbs.Neutrophil (Seg)4.60 k/uLNormal1.3-9.1 [facility] TroyComment on above:Performed By: #### GEENA, CDP, CMPX #### [facility] [address] [place] [address] First Assistant: Yogesh Lehman DOBasophils/100 WBC (Bld)1 %Normal0-2MFayette County Memorial HospitalComment on above:Performed By: #### GEENA, CDP, CMPX #### [facility] [place] [address] First Assistant: Yogesh Lehman DOEosinophils (Bld) [#/Vol]0.10 10*3/uLNormal 0.0-0.4[facility] TroyCombaraga county memorial hospital on above:Performed By: #### GEENA, MARA, CMPX #### [facility] [place] [address] First Assistant: Yogesh Lehman DOEosinophils/100 WBC (Bld)1 %Normal0-4[facility] TroyCombaraga county memorial hospital on above:Performed By: #### GEENA, CDP, CMPX #### [facility] [place] [address] First Assistant: Yogesh Lehman DOErythrocyte distribution width (RBC) [Ratio] 13.2 %Vevaev28.5-14.9[facility] on above:Performed By: #### ALCB, CDP, CMPX #### [facility] [address] [place] [address] First Assistant: Yogesh Lehman DOHematocrit (Bld) [Volume fraction]50.0 % Dyomir29-98DpcvvPremier Health Miami Valley Hospital on above:Performed By: #### ALCB, CDP, CMPX #### [facility] [address] [place] [address] First Assistant: Yogesh Lehman DOHemoglobin (Bld) [Mass/Vol]18.0 g/dLHigh 13.5-17.5[facility] on above:Performed By: #### ALCB, CDP, CMPX #### [facility] [address] [place] [address] First Assistant: Yogesh Lehman DOLymphocytes (Bld) [#/Vol]2.00 10*3/uLNormal 1.0-4.8[facility] on above:Performed By: #### ALCB, CDP, CMPX #### [facility] [place] [address] First Assistant: Yogesh Lehman DOLymphocytes/100 WBC (Bld)29 %Pvsqde25-29XlaxfPremier Health Miami Valley Hospital on above:Performed By: #### ALCB, CDP, CMPX #### [facility] [place] [address] First Assistant: Yogesh Lehman DOMCH (RBC) [Entitic mass]32.3 dxYsdmxq50-30 [facility] on above:Performed By: #### ALCB, CDP, CMPX #### [facility] [address] [place] [address] First Assistant: Yogesh Lehman DOMCHC (RBC) [Mass/Vol]36.1 g/tIVcdpse95-34 [facility] on above:Performed By: #### ALCB, CDP, CMPX #### [facility] [address] [place] [address] First Assistant: Yogesh Lehman DOMCV (RBC) [Entitic vol]89.6 aVCetrdz53-935 [facility] on above:Performed By: #### ALCB, CDP, CMPX #### [facility] [address] [place] [address] First Assistant: Yogesh Lehman DOMonocytes (Bld) [#/Vol]0.40 10*3/uLNormal 0.1-1.3MWadsworth-Rittman Hospital on above:Performed By: #### ALCB, CDP, CMPX #### [facility] [place] [address] First Assistant: Yogesh Lehman DOMonocytes/100 WBC (Bld)5 %Normal2-8[facility] on above:Performed By: #### ALCB, CDP, CMPX #### [address] [address] First Assistant: Yogesh Lehman DONeutrophil (Seg)64 %Ljxbfb65-54OjyhiPremier Health Miami Valley Hospital on above:Performed By: #### ALCB, CDP, CMPX #### [facility] [place] [address] First Assistant: Yogesh Lehman DOPlatelet mean volume (Bld) [Entitic vol]7.9 fLNormal6.0-12.0[facility] on above:Performed By: #### ALCB, CDP, CMPX #### [facility] [address] [place] [address] First Assistant: Yogesh Lehman DOPlatelets (Josephd) [#/Vol]213 10*3/uLNormal 150-450K[facility]tering Health TroyComment on above:Performed By: #### ALCB, CDP, CMPX #### [facility] [address] [place] [address] First Assistant: Yogesh Lehman DORBC (Bld) [#/Vol]5.58 10*6/uLNormal4.5-5.9 [facility] TroyCombaraga county memorial hospital on above:Performed By: #### ALCB, CDP, CMPX #### [facility] [address] [place] [address] First Assistant: Yogesh Lehman DOWBC (Josephd) [#/Vol]7.1 10*3/uLNormal4.5-13.5 [facility] on above:Performed By: #### ALCB, CDP, CMPX #### [facility] [address] [place] [address] First Assistant: Yogesh Lehman DOComp Metabolic Pr/rfx MGon 29-67-9983DWV [Catalytic activity/Vol]U/LLow5-41[facility] TroyCombaraga county memorial hospital on above: Performed By: #### ALCB, CDP, CMPX #### [facility] [address] [place] [address] First Assistant: Yogesh Lehman DO(cont.)[facility] Comment on above:Result Comment: Average GFR for 20-29 years old: 116 mL/min/1.73sq m Chronic Kidney Disease: <60 mL/min/1.73sq m Kidney failure: <15 mL/min/1.73sq m eGFR calculated using average adult body mass. Additional eGFR calculator available at: http://www.[employer].com/multiple_crcl_2012.htmPerformed By: #### ALCCindi, CDP, CMPX #### [facility] [address] [place] [address] First Assistant: Yogesh Lehman DOAlbumin [Mass/Vol]4.9 g/dLNormal3.5-5.2MFayette County Memorial HospitalComment on above:Performed By: #### GEENA, CDP, CMPX #### [facility] [address] [place] [address] First Assistant: Yogesh Lehman DOAlkaline Phos50 U/RIkustw51-886KaadpKettering Health TroyCombaraga county memorial hospital on above:Performed By: #### GEENA, CDP, CMPX #### [address] [address] First Assistant: Yogesh Lehman DOAnion gap [Moles/Vol]11 mmol/LNormal9-17[facility] TroyCombaraga county memorial hospital on above:Performed By: #### GEENA, MARA, CMPX #### [facility] [address] [place] [address] First Assistant: Yogesh Lehman DOAST [Catalytic activity/Vol]21 U/LNormal<40 [facility] TroyCombaraga county memorial hospital on above:Performed By: #### GEENA, MARA, CMPX #### [facility] [address] [place] [address] First Assistant: Yogesh Lehman DOBilirubin [Mass/Vol]0.71 mg/dLNormal0.3-1.2 [facility] TroyCombaraga county memorial hospital on above:Performed By: #### ALCB, CDP, CMPX #### [facility] [address] [place] [address] First Assistant: Yogesh Lehman DOCalcium [Mass/Vol]9.6 mg/dLNormal8.6-10.4 [facility] TroyComment on above:Performed By: #### ALCB, CDP, CMPX #### [facility] [address] [facility] [place] [address] First Assistant: Yogesh Lehman DOChloride [Moles/Vol]101 mmol/DDpwhze56-948 [facility] TroyComment on above:Performed By: #### ALCB, CDP, CMPX #### [facility] [address] [place] [address] First Assistant: Yogesh Lehman DOCO2 [Moles/Vol]26 mmol/URbvnoj34-32IyimlKettering Health TroyComment on above:Performed By: #### ALCCindi CDP, CMPX #### [facility] [address] [place] [address] First Assistant: Yogesh Lehman DOCreatinine [Mass/Vol]1.12 mg/dLNormal 0.70-1.20[facility] TroyComment on above:Performed By: #### GEENA CDP, CMPX #### [facility] [place] [address] First Assistant: Yogesh Lehman DOGFR, Amer>60Normal>60[facility] Children'S Medical CenterComment on above:Performed By: #### ALCCindi, CDP, CMPX #### [facility] [place] [address] First Assistant: Yogesh Lehman DOGFR,non Amer>60Normal>60[facility]'S Medical CenterComment on above:Performed By: #### ALCB, CDP, CMPX #### [facility] [place] [address] First Assistant: Fanelly, Yogesh, DOGlucose [Mass/Vol]118 mg/tXImdv72-60ZkmnvFayette County Memorial HospitalComment on above:Performed By: #### ALCCindi CDP, CMPX #### [facility] [address] [place] [address] First Assistant: Yogesh Lehman DOPotassium [Moles/Vol]4.1 mmol/LNormal3.7-5.3 [facility] TroyComment on above:Performed By: #### ALCB, CDP, CMPX #### [address] [address] First Assistant: Yogesh Lehman DOProtein [Mass/Vol]7.6 g/dLNormal6.4-8.3MFayette County Memorial HospitalComment on above:Performed By: #### MARA SEAY, CMPX #### [address] [address] First Assistant: Yogesh Lehman, DOSodium [Moles/Vol]138 mmol/YEhozno224-428 [facility] TroyCombaraga [facility] hospital on above:Performed By: #### MARA SEAY, CMPX #### [address] [address] First Assistant: Yogesh Lehman DOUrea nitrogen [Mass/Vol]18 mg/dLNormal6-20 [facility] TroyCombaraga county memorial hospital on above:Performed By: #### ALCB, CDP, CMPX #### [address] [address] First Assistant: Yogesh Lehman DODrug Scr, Abuse, Uron 04-21-2022 Amphetamine(s),UrNegativeNormalNEGMercy Barney Children'S Medical CenterCombaraga county memorial hospital on above: Result Comment: (Positive cutoff 1000 ng/mL)Performed By: #### UAMIC, BRANDIN #### [facility] [address] [place] [address] First Assistant: Yogesh Lehman DOBarbiturate(s),UrNegativeNormalNEGPremier Health Miami Valley Hospital on above:Result Comment: (Positive cutoff 200 ng/mL)Performed By: #### UAMIC, BRANDIN #### [facility] [address] [place] [address] First Assistant: Yogesh Lehman DOBenzodiazepine(s)NegativeNormalNEGMerSumma Health Akron Campus on above:Result Comment: (Positive cutoff 200 ng/mL)Performed By: #### UAMIC, BRANDIN #### [facility] [address] [place] [address] First Assistant: Yogesh Lehman DOCannabinoid(s),UrPositiveAbnormalNEGPremier Health Miami Valley Hospital on above:Result Comment: (Positive cutoff 50 ng/mL)Performed By: #### UAMIC, BRANDIN #### [facility] [address] [place] [address] First Assistant: Yogesh Lehman DOCocaine MetaboliteNegativeTrumbull Regional Medical Center on above:Result Comment: (Positive cutoff 300 ng/mL)Performed By: #### UAMIC, BRANDIN #### [facility] [address] [place] [address] First Assistant: Yogesh Lehman DOInterpretive InfoAssay provides medical screening only. The absence of expected drug(s) and/orNormalMercy Kindred Hospital Dayton on above:Result Comment: metabolite(s) may indicate diluted or adulterated urine, limitations of testing or timing of collection. Testing for legal purposes should be confirmed by another method. To request confirmation of test result, please call the lab within 7 days of sample submission.Performed By: #### UAMIC, BRANDIN #### [facility] [address] [place] [address] First Assistant: Yogesh Lehman DOMethadone Ql (U)NegativeNormalNEGKettering Health TroyCombaraga county memorial hospital on above:Result Comment: (Positive cutoff 300 ng/mL)Performed By: #### UAMIC, BRANDIN #### [facility] [place] [address] First Assistant: Yogesh Lehman DOOpiate(s), UrNegativeNormalNEGPremier Health Miami Valley Hospital on above:Result Comment: (Positive cutoff 300 ng/mL)Performed By: #### UAMIC, BRANDIN #### [facility] [address] [place] [address] First Assistant: Yogesh Lehman DOOxycodone, UrineNegativeNormalNEGPremier Health Miami [facility] Hospital on above:Result Comment: (Positive cutoff 100 ng/mL)Performed By: #### UAMIC, BRANDIN #### [facility] [address] [place] [address] First Assistant: Yogesh Lehmna DOPhencyclidine, UrNegativeNormndNEGPremier Health Miami [facility] Hospital on above:Result Comment: (Positive cutoff 25 ng/mL)Performed By: #### UAMIC, BRANDIN #### [facility] [address] [place] [address] First Assistant: Yogesh Lehman DOEthanol Alcoholon [id number] [Mass/Vol]mg/dLNormal<10Mer[facility] Children'S Medical CenterComment on above:Performed By: #### ALCB, CDP, CMPX #### [facility] [address] [place] [address] First Assistant: Yogesh Lehman DOEthanol percent<0.010NormalKettering Health TroyCombaraga county memorial hospital on above:Performed By: #### ALCB, CDP, CMPX #### [facility] [address] [facility] [place] [address] First Assistant: Yogesh Lehman DOUrinalysleandro w/ Microon 11-26-1043DdurlknhMtfh Missouri Baptist Medical CenterEMeBrown Memorial HospitalComment on above:Performed By: #### UAMIC, BRANDIN #### [facility] [address] [facility] [place] [address] First Assistant: Yogesh Lehman DOBilirubin, SemiQt,UrNegativeNormalNEGKettering Health TroyCombaraga county memorial hospital on above:Performed By: #### UAMIC, BRANDIN #### [facility] [facility] [place] [address] First Assistant: Yogesh Lehman DOBlood, UrineNegativeNormalAvita Health System Galion HospitalCombaraga county memorial hospital on above:Performed By: #### UAMIC, BRANDIN #### [facility] [facility] [place] [address] First Assistant: Yogesh Lehman DOCasts0 TO 2NormalKettering Health Troy Comment on above:Performed By: #### UAMIC, BRANDIN #### [facility] [facility] [place] [address] First Assistant: Yogesh Lehman DOClarity (U)TurbidAbnormalCLEARMercDayton Children's HospitalComment on above:Performed By: #### UAMIC, BRANDIN #### [facility] [address] [facility] [place] [address] First Assistant: Yogesh Lehman DOColor (U)YellowNormalYELMerSouthview Medical CenterCombaraga county memorial hospital on above:Performed By: #### UAMIC, BRANDIN #### [facility] [address] [facility] [place] [address] First Assistant: Yogesh Lehman DOEpithelial cells LM Ql (Urine sed)0 TO 2 NormalLutheran HospitalSouthview Medical CenterCombaraga county memorial hospital on above:Performed By: #### UAMIC, BRANDIN #### [facility] [address] [place] [address] First Assistant: Yogesh Lehman DOGlucose Ql (U)NegativeNormalNEGMercy Barney Children'S Medical CenterCombaraga county memorial hospital on above:Performed By: #### UAMIC, BRANDIN #### [facility] [address] [place] [address] First Assistant: Yogesh Lehman DOKetones Ql (U)TRACEAbnormalNEGMerSouthview Medical CenterCombaraga county memorial hospital on above:Performed By: #### UAMIC, BRANDIN #### [address] [address] First Assistant: Yogesh Lehman DOLeukocyte esterase Test strip Ql (U)Negative NormalNEGKettering Health TroyCombaraga county memorial hospital on above:Performed By: #### UAMIC, BRANDIN #### [address] [address] First Assistant: Yogesh Lehman DONitrite,UrNegativeNormalNEGKettering Health TroyCombaraga county memorial hospital on above:Performed By: #### UAMIC, BRANDIN #### [facility] [address] [place] [address] First Assistant: Yogesh Lehman DOPH,Ur7.3Cjxrju3.0-8.0Mer[facility] Children'S Medical CenterCombaraga county memorial hospital on above:Performed By: #### UAMIC, BRANDIN #### [facility] [address] [place] [address] First Assistant: Yogesh Lehman DOProtein Ql (U)NegativeNormalNEGMerSouthview Medical CenterCombaraga county memorial hospital on above:Performed By: #### UAMIC, BRANDIN #### [facility] [address] [place] [address] First Assistant: Yogesh Lehman DOSpec. Quanah,Ur1.253Jdfasc5.000-1.030K[facility]tering Health TroyComment on above:Performed By: #### UAMIC, BRANDIN #### [facility] [address] [place] [address] First Assistant: Yogesh Lehman DOUrine RBC's0 TO 2NProMedica Bay Park HospitalCombaraga county memorial hospital on above:Performed By: #### UAMIC, BRANDIN #### [facility] [address] [place] [address] First Assistant: Yogesh Lehman DOUrine WBC's0 TO 2NProMedica Bay Park HospitalCombaraga county memorial hospital on above:Performed By: #### UAMIC, BRANDIN #### [facility] [address] [place] [address] First Assistant: Yogesh Lehman DOUrobilinogen,UrNormalNormalNORMKettering Health TroyCombaraga county memorial hospital on above:Performed By: #### UAMIC, BRANDIN #### [facility] [address] [place] [address] First Assistant: Yogesh Lehman DOMiscel [facility] [id number] Out ReportSEE [facility] HospitalComment on above:Result Comment: (NOTE) Test name Result [...] developed and its performance characteristics determined by [facility]. It has not been cleared or approved by the [place] Food and Drug Administration. Testing performed at [facility] [address] [place] [id number] CLIA [id number] By: #### ATRAZO #### [address] [address] First Assistant: Kodak Akbar MD #### CMPX, EDTOX, LIP, CDP #### [address] [address] First Assistant: Fantasma Modi [id number]<5.1Rcjhir2.0-5.0[facility] Methodist HospitalComment on above:Result Comment: (NOTE) INTERPRETIVE INFORMATION: Glutamic Acid Decarboxylase Antibody A value greater than 5.0 IU/mL is considered positive for Glutamic Acid Decarboxylase Antibody (AUGIE Ab). This assay is intended for the semi-quantitative determination of the AUGIE Ab in human serum. Results should be interpreted within the context of clinical symptoms. Performed By: [facility] [address] [place], [place] [id number] Territory Sales Professional: MILAGROS Rodrigueserformed By: #### ATRAZO #### [address] [address] First Assistant: Kodak Akbar MD #### CMPX, EDTOX, LIP, CDP #### [address] [address] First Assistant: JANNET Modi-65 AUTOANTIBODYon [id number] Acid Decarb Ab<5.0[place], KYComment on above:(NOTE) INTERPRETIVE INFORMATION: Glutamic Acid Decarboxylase Antibody A value greater than 5.0 IU/mL is considered positive for Glutamic Acid Decarboxylase Antibody (AUGIE Ab). This assay is intended for the semi-quantitative determination of the AUGIE Ab in human serum. Results should be interpreted within the context of clinical symptoms. Performed By: [facility] [address] [place] [address] Territory Sales Professional: Zayda Ospina MD Hemoglobin A1Con 42-99-8813Slhhgfw [Mass/Vol]203 mg/dL[place], [place] Comment on above:The ADA and AACC recommend providing the estimated average glucose result to permit better patient understanding of their HBA1c result. HbA1c (Bld) [Mass fraction]8.7 %High4 - 6 %[facility], RIInterpretation and review of laboratory resultsAbnoBuchtel, KYPO Glucose Fingerstickon [id number] [Mass/Vol]205 mg/yVOvrd05 - 110 mg/dLKettering Health Springfield, RIInterpretation and review of laboratory resultsAbnoBuchtel, KYTRAZADONEon 02-59-6532Qdubigtuo8.62 ug/mL0.5 - 2.5 ug/mLNews[place], KYComment on above:(NOTE) INTERPRETIVE INFORMATION: Trazodone Therapeutic Range: 0.50 - 2.50 ug/mL Toxic: Greater than 4.00 ug/mL Adverse effects may include sedation, fatigue, headache, blurred vision and nausea. See Compliance Statement B: [employer]/CS Performed By: [facility] [address] [place] [address] Territory Sales Professional: Zayda Ospina MD Trazadoneon 02-11-8200KRWHXN>6.04Pnbs8.50-2.50[facility] Comment on above:Result Comment: (NOTE) INTERPRETIVE INFORMATION: Trazodone Therapeutic Range: 0.50 - 2.50 ug/mL Toxic: Greater than 4.00 ug/mL Adverse effects may include sedation, fatigue, headache, blurred vision and nausea. See Compliance Statement B: [employer]/CS Performed By: [facility] [address] [place], [place] [id number] Territory Sales Professional: MILAGROS Rodrigueserformed By: #### ATRAZO #### [facility] [address] [place] [address] First Assistant: Kodak Akbar MD #### CMPX, EDTOX, LIP, CDP #### [address] [phone] First Assistant: Frank Otero MDTRAZOA1.62 ug/mLNormal0.50-2.50[facility] HospitalComment on above:Result Comment: (NOTE) INTERPRETIVE INFORMATION: Trazodone Therapeutic Range: 0.50 - 2.50 ug/mL Toxic: Greater than 4.00 ug/mL Adverse effects may include sedation, fatigue, headache, blurred vision and nausea. See Compliance Statement B: [employer]/ Performed By: [facility] [address] [place] [address] Territory Sales Professional: MILAGROS Rodrigueserformed By: #### ATRAZO #### [address] [address] First Assistant: Kodak Akbar MD #### CMPX, EDTOX, LIP, CDP #### [address] [address] First Assistant: Kaz Modi Metab w/rfx MGon 08-01-2020(cont.)Normal [facility] HospitalComment on above:Result Comment: Average GFR for <20 years old not available. Chronic Kidney Disease: <60 mL/min/1.73sq m Kidney failure: <15 mL/min/1.73sq m eGFR calculated using average adult body mass. Additional eGFR calculator available at: http://www.[employer].com/multiple_crcl_2012.htmPerformed By: #### ATRAZO #### [address] [address] First Assistant: Kodak Akbar MD #### CMPX, EDTOX, LIP, CDP #### [address] [phone] First Assistant: Frank Otero MDGFR,non AmerPediatric GFR requires additional information. Refer to NKDEP website forNormal>60[facility] HospitalComment on above:Result Comment: calculator.Performed By: #### ATRAZO #### [facility] [address] [place] [address] First Assistant: Kodak Akbar MD #### CMPX, EDTOX, LIP, CDP #### [facility] [address] [place] [address] First Assistant: LELIA Modi/ALNEY Alfaro REPORTEDNormal9-20[facility] HospitalComment on above:Performed By: #### ATRAZO #### [facility] [address] [place] [address] First Assistant: Kodak Akbar MD #### CMPX, EDTOX, LIP, CDP #### [facility] [address] [phone] First Assistant: RADHA Modi, AmerNOT REPORTEDNormal>60[facility] HospitalComment on above:Performed By: #### ATRAZO #### [facility] [address] [place] [address] First Assistant: Kodak Akbar MD #### CMPX, EDTOX, LIP, CDP #### [address] [phone] First Assistant: WILLIAM Moditaging:NOT REPORTEDNormalOhiohealth Dublin Methodist HospitalComment on above:Performed By: #### ATRAZO #### [facility] [address] [place] [address] First Assistant: Kodak Akbar MD #### CMPX, EDTOX, LIP, CDP #### [address] [address] First Assistant: Janay Modi gap [Moles/Vol]13 mmol/LNormal9-17[facility], RIComment on above:Performed By: #### ATRAZO #### [facility] [address] [place] [address] First Assistant: Kodak Akbar MD #### CMPX, EDTOX, LIP, CDP #### [address] [phone] First Assistant: Frank Otero MDCalcium [Mass/Vol]9.3 mg/dLNormal8.6-10.4[facility], KYComment on above:Performed By: #### ATRAZO #### [facility] [address] [place] [address] First Assistant: Kodak Akbar MD #### FELICIA BUNN, LIP, CDP #### [address] [address] First Assistant: Frank Otero MDChloride [Moles/Vol]104 mmol/LTpnkav43-922[facility]- [place], KYComment on above:Performed By: #### ATRAZO #### [facility] [address] [place] [address] First Assistant: Kodak Akbar MD #### FELICIA BUNN, LIP, CDP #### [address] [address] First Assistant: Frank Otero, MDCO2 [Moles/Vol]23 mmol/QZjtjpw52-51[facility]- [place], KYComment on above:Performed By: #### ATRAZO #### [facility] [address] [place] [address] First Assistant: Kodak Akbar MD #### CMPX, EDTOX, LIP, CDP #### [address] [phone] First Assistant: Frank Otero MDCreatinine [Mass/Vol]0.92 mg/dLNormal0.70-1.20 [facility], KYComment on above:Performed By: #### ATRAZO #### [facility] [address] [place] [address] First Assistant: Kodak Akbar MD #### CMPX, EDTOX, LIP, CDP #### [address] [phone] First Assistant: Frank Otero MDGlucose [Mass/Vol]185 mg/nYYshl92-34[facility]- [place], KYComment on above:Performed By: #### ATRAZO #### [facility] [address] [place] [address] First Assistant: Kodak Akbar MD #### CMPX, EDTOX, LIP, CDP #### [address] [phone] First Assistant: MILAGROS Modiotassium [Moles/Vol]4.1 mmol/LNormal3.7-5.3 [facility], KYComment on above:Performed By: #### ATRAZO #### [address] [address] First Assistant: Kodak Akbar MD #### CMPKatalina EDNORRISX, LIP, CDP #### [address] [phone] First Assistant: WILLIAM Modiodium [Moles/Vol]140 mmol/KMcqyfi577-587Xfrjh Health- [place], KYComment on above:Performed By: #### ATRAZO #### [facility] [address] [place] [address] First Assistant: oKdak Akbar MD #### CMPX, EDTOX, LIP, CDP #### [address] [phone] First Assistant: Frank Otero MDUrea nitrogen [Mass/Vol]12 mg/dLNormal6-20[facility], KYComment on above:Performed By: #### ATRAZO #### [facility] [address] [place] [address] First Assistant: Kodak Akbar MD #### CMPX, EDTOX, LIP, CDP #### [address] [phone] First Assistant: Frank Otero [facility] with Diffon [id number]. Basophil0.05 k/uL Normal0.00-0.20[facility] HospitalComment on above:Performed By: #### ATRAZO #### [facility] [address] [place] [address] First Assistant: Kodak Akbar MD #### CMPKatalina, EDTOKatalina, LIP, CDP #### [address] [phone] First Assistant: Luis Enrique Modi.Imm.Granulocyte0.03 k/uLNormal0.00-0.30[facility] HospitalComment on above:Performed By: #### ATRAZO #### [facility] [address] [place] [address] First Assistant: Kodak Akbar MD #### SEPIDEH, FELICIA, LIP, CDP #### [address] [phone] First Assistant: Luis Enrique Modi.Neutrophil (Seg)2.38 k/uLNormal1.80-8.00 [facility] HospitalComment on above:Performed By: #### ATRAZO #### [facility] [address] [place] [address] First Assistant: Kodak Akbar MD #### CMPX, EDTOX, LIP, CDP #### [address] [phone] First Assistant: Frank Otero MDBasophils/100 WBC (Bld)1 %Normal0-2MercCHoNC Pediatric HospitalComment on above:Performed By: #### ATRAZO #### [facility] [address] [place] [address] First Assistant: Kodak Akbar MD #### CMPX, EDTOX, LIP, CDP #### [facility] [address] [place] [address] First Assistant: Frank Otero MDEosinophils (Bld) [#/Vol]0.08 10*3/uLNormal 0.00-0.44[facility] HospitalComment on above:Performed By: #### ATRAZO #### [facility] [address] [place] [address] First Assistant: Kodak Akbar MD #### CMPX, EDTOX, LIP, CDP #### [address] [phone] First Assistant: Frank Otero MDEosinophils/100 WBC (Bld)2 %Normal1-4[facility] HospitalComment on above:Performed By: #### ATRAZO #### [facility] [address] [place], [place] [id number] First Assistant: Kodak Akbar MD #### CMPX, EDTOX, LIP, CDP #### [address] [phone] First Assistant: Frank Otero MDErythrocyte distribution width (RBC) [Ratio]12.6 %Dkllgq61.8-14.4[facility] HospitalComment on above:Performed By: #### ATRAZO #### [facility] [address] [place], [place] [id number] First Assistant: Kodak Akbar MD #### CMPX, EDTOX, LIP, CDP #### [address] [phone] First Assistant: Frank Otero MDHematocrit (Bld) [Volume fraction]46.5 %Normal 40.7-50.3[facility] Ridge HospitalComment on above:Performed By: #### ATRAZO #### [facility] [address] [place], [place] [id number] First Assistant: Kodak Akbar MD #### CMPX, EDTOX, LIP, CDP #### [place] [address] First Assistant: Frank Otero MDHemoglobin (Bld) [Mass/Vol]16.0 g/dLNormal 13.0-17.0[facility] HospitalComment on above:Performed By: #### ATRAZO #### [facility] [address] [place] [address] First Assistant: Kodak Akbar MD #### CMPX, EDTOX, LIP, CDP #### [place] [address] First Assistant: Frank Otero MDImmature granulocytes (Bld) [#/Vol]1 %Rmsy1DwyzpOhiohealth Dublin Methodist HospitalComment on above:Performed By: #### ATRAZO #### [facility] [address] [place] [address] First Assistant: Kodak Akbar MD #### CMPX, EDTOX, LIP, CDP #### [place] [phone] First Assistant: Frank Otero MDLymphocytes (Bld) [#/Vol]1.81 10*3/uLNormal 1.20-5.20[facility] HospitalComment on above:Performed By: #### ATRAZO #### [facility] [address] [place] [address] First Assistant: Kodak Akbar MD #### CMPX, EDTOX, LIP, CDP #### [place] [phone] First Assistant: Frank Otero MDLymphocytes/100 WBC (Bld)38 %Oybdwy84-90FsxypOhiohealth Dublin Methodist HospitalComment on above:Performed By: #### ATRAZO #### [facility] [address] [place] [address] First Assistant: Kodak Akbar MD #### CMPX, EDTOX, LIP, CDP #### [address] [phone] First Assistant: BHANU ModiCH (RBC) [Entitic mass]31.6 hgHekgyo77.2-33.5 [facility] HospitalComment on above:Performed By: #### ATRAZO #### [facility] [address] [place] [address] First Assistant: Kodak Akbar MD #### CMPX, EDTOX, LIP, CDP #### [address] [phone] First Assistant: HERSON ModiC (RBC) [Mass/Vol]34.4 g/oTYrlned82.4-34.8 [facility] HospitalComment on above:Performed By: #### ATRAZO #### [facility] [address] [place] [address] First Assistant: Kodak Akbar MD #### CMPX, EDTOX, LIP, CDP #### [address] [address] First Assistant: BHANU ModiCV (RBC) [Entitic vol]91.7 vIXpfnzr74.6-102.9 [facility] HospitalComment on above:Performed By: #### ATRAZO #### [facility] [address] [place] [address] First Assistant: Kodak Akbar MD #### CMPX, EDTOX, LIP, CDP #### [facility] [address] [place] [address] First Assistant: BHANU Modionocytes (Bld) [#/Vol]0.47 10*3/uLNormal 0.10-1.40[facility] HospitalComment on above:Performed By: #### ATRAZO #### [facility] [address] [place] [address] First Assistant: Kodak Akbar MD #### CMPX, EDTOX, LIP, CDP #### [facility] [address] [place] [address] First Assistant: BHANU Modionocytes/100 WBC (Bld)10 %High2-8[facility] HospitalComment on above:Performed By: #### ATRAZO #### [facility] [address] [place] [address] First Assistant: Kodak Akbar MD #### CMPX, EDTOX, LIP, CDP #### [address] [address] First Assistant: Frank Otero MDNeutrophil (Seg)49 %Ifmlbd82-75BqytdOhiohealth Dublin Methodist HospitalComment on above:Performed By: #### ATRAZO #### [facility] [address] [place] [address] First Assistant: Kodak Akbar MD #### CMPX, EDTOX, LIP, CDP #### [facility] [address] [place] [address] First Assistant: Frank Otero MDNRBC Automated0.0 per 100 WBCNormal0.0[facility] HospitalComment on above:Performed By: #### ATRAZO #### [facility] [address] [place] [address] First Assistant: Kodak Akbar MD #### CMPX, EDTOX, LIP, CDP #### [address] [address] First Assistant: Viki Modi mean volume (Bld) [Entitic vol]10.5 fL Normal8.1-13.5[facility] HospitalComment on above:Performed By: #### ATRAZO #### [facility] [address] [place] [address] First Assistant: Kodak Akbar MD #### CMPX, EDTOX, LIP, CDP #### [address] [address] First Assistant: Irvin Modi (Bld) [#/Vol]141 10*3/mWBlslgf574-419 [facility] HospitalComment on above:Performed By: #### ATRAZO #### [facility] [address] [place] [address] First Assistant: Kodak Akbar MD #### CMPX, EDTOX, LIP, CDP #### [place] [address] First Assistant: Frank Otero COX BRANSONBC (Bld) [#/Vol]5.07 10*6/uLNormal4.21-5.77 [facility] Dublin Methodist HospitalComment on above:Performed By: #### ATRAZO #### [facility] [address] [place] [address] First Assistant: Kodak Akbar MD #### CMPX, EDTOX, LIP, CDP #### [address] [address] First Assistant: Frank Otero MDWBC (Bld) [#/Vol]4.8 10*3/uLNormal4.5-13.5Ohiohealth Dublin Methodist HospitalComment on above:Performed By: #### ATRAZO #### [facility] [address] [place] [address] First Assistant: Kodak Akbar MD #### CMPX, EDTOX, LIP, CDP #### [facility] [address] [place] [address] First Assistant: Kay Modi PerformedNOT REPORTEDMercy Health Allen HospitalComment on above:Performed By: #### ATRAZO #### [facility] [address] [place] [address] First Assistant: Kodak Akbar MD #### CMPX, EDTOX, LIP, CDP #### [facility] [address] [place] [address] [phone] First Assistant: MILAGROS Modilatelets (Bld) [#/Vol]NOT REPORTEDMercy Health Allen HospitalComment on above:Performed By: #### ATRAZO #### [facility] [address] [place] [address] First Assistant: Kodak Akbar MD #### CMPX, EDTOX, LIP, CDP #### [facility] [address] [place] [address] [phone] First Assistant: EVAN Modi morphology finding Nom (Bld)NOT REPORTED [facility] Allen HospitalComment on above:Performed By: #### ATRAZO #### [facility] [address] [place] [address] First Assistant: Kodak Akbar MD #### CMPX, EDTOX, LIP, CDP #### [facility] [address] [place] [address] [phone] First Assistant: Frank Otero MDWBC MorphologyNOT REPORTEDMercy Health Allen HospitalComment on above:Performed By: #### ATRAZO #### [facility] [address] [place] [address] First Assistant: Kodak Akbar MD #### CMPX, EDTOX, LIP, CDP #### [facility] [address] [phone] First Assistant: Frank Otero MDHematologyon [id number] (Bld) [#/Vol] 0.05 10*3/[facility]- [place], KYBasophils/100 WBC (Bld)1 %0 - 2 %[facility] [place], KYEosinophils (Bld) [#/Vol]0.08 10*3/[facility]- [place], KYEosinophils/100 WBC (Bld)2 %1 - 4 %[facility]- [place], KYHematocrit (Bld) [Volume fraction]46.5 % 40.7 - 50.3 %[facility]- [place], KYHemoglobin (Bld) [Mass/Vol]16.0 g/dL13 - 17 g/dLCleveland Clinic [facility]'S [facility]- [place], KYLymphocytes (Bld) [#/Vol]1.81 10*3/[facility]- [place], KYLymphocytes/100 WBC (Bld)38 %25 - 45 %[facility]- [place], KYMCH (RBC) [Entitic mass]31.6 pg25.2 - 33.5 pgLima Memorial Hospital [place], KYMCV (RBC) [Entitic vol]91.7 fL82.6 - 102.9 fLCleveland Clinic Children'S Hospital For [facility]- [place], KYMonocytes (Bld) [#/Vol]0.47 10*3/[facility]- [place], KYMonocytes/100 WBC (Bld)10 %High2 - 8 %[facility]- [place], KYPlatelets (Bld) [#/Vol]NOT REPORTEDCleveland Clinic [facility]- [place], KYPlatelets (Bld) [#/Vol]141 10*3/[facility]- [place], KYRBC (Bld) [#/Vol]5.07 10*6/uL4.21 - 5.77 m/[facility]- [place], [place] RBC morphology finding Nom (Bld)NOT REPORTEDCleveland Clinic [facility]- [place], KYWBC (Bld) [#/Vol]4.8 10*3/uLKettering Health [facility], DENITAWBC (Bld) [#/Vol]0.0 10*3/uL0.0 per 100 WBCKettering Health Springfield, Morelia Singhon [id number] Phos42 U/VDzlprv45-092 [facility] HospitalComment on above:Performed By: #### ATRAZO #### [facility] [address] [place] [address] First Assistant: Kodak Akbar MD #### CMPX, EDTOX, LIP, CDP #### [address] [address] First Assistant: Frank Otero MDGlobulin (S) [Mass/Vol]NOT REPORTEDNormal1.5-3.8 [facility] HospitalComment on above:Performed By: #### ATRAZO #### [facility] [address] [place] [address] First Assistant: Kodak Akbar MD #### CMPX, EDTOX, LIP, CDP #### [address] [address] First Assistant: Frank Otero MDAlbumin [Mass/Vol]4.2 g/dLNormal3.5-5.2MDallas, KYComment on above:Performed By: #### ATRAZO #### [facility] [address] [place], [place] [phone] First Assistant: Kodak Akbar MD #### CMPX, EDTOX, LIP, CDP #### [address] [address] First Assistant: Frank Otero MDAlbumin/Globulin [Mass ratio]1.9 {ratio}Normal 1.0-2.5[place], KYComment on above:Performed By: #### ATRAZO #### [facility] [address] [place], [place] [id number] First Assistant: Kodak Akbar MD #### CMPX, EDTOX, LIP, CDP #### [address] [address] First Assistant: Frank Otero MDALT [Catalytic activity/Vol]20 U/LNormal5-41 [facility], KYComment on above:Performed By: #### ATRAZO #### [facility] [address] [place] [address] First Assistant: Kodak Akbar MD #### CMPX, EDTOX, LIP, CDP #### [address] [address] First Assistant: Frank Otero MDAST [Catalytic activity/Vol]15 U/LNormal<40[facility], KYComment on above:Performed By: #### ATRAZO #### [facility] [address] [place] [address] First Assistant: Kodak Akbar MD #### CMPX, EDTOX, LIP, CDP #### [address] [address] First Assistant: Frank Otero MDBilirubin Ql (U)0.56 mg/dLNormal0.3-1.2MSt. Mary's Medical Center, KYComment on above:Performed By: #### ATRAZO #### [facility] [address] [place], [place] [phone] First Assistant: Kodak Akbar MD #### CMPX, EDTOX, LIP, CDP #### [address] [address] First Assistant: Frank Otero MDBilirubin, Indirect0.43 mg/dLNormal0.00-1.00 [facility], KYComment on above:Performed By: #### ATRAZO #### [facility] [address] [place], [place] [id number] First Assistant: Kodak Akbar MD #### CMPX, EDTOX, LIP, CDP #### [address] [phone] First Assistant: Gregory Modiirubin.direct [Mass/Vol]0.13 mg/dLNormal<0.31 [place], KYCombaraga county memorial hospital on above:Performed By: #### ATRAZO #### [facility] [address] [place] [address] First Assistant: Kodak Akbar MD #### CMPX, EDTOX, LIP, CDP #### [address] [address] First Assistant: Frank Otero MDProtein [Mass/Vol]6.4 g/dLNormal6.4-8.3MDallas, KYCombaraga county memorial hospital on above:Performed By: #### ATRAZO #### [facility] [address] [place], [place] [phone] First Assistant: Kodak Akbar MD #### CMPX, EDTOX, LIP, CDP #### [address] [address] First Assistant: BHANU Modietabolic Panelon [id number] [Catalytic activity/Vol]42 U/L40 - 129 U/LMSt. Mary's Medical Center, KYGFR/1.73 sq M predicted among non-blacks MDRD (S/P/Bld) [Vol rate/Area][place], KYCombaraga county memorial hospital on above: Average GFR for <20 years old not available. Chronic Kidney Disease: <60 mL/min/1.73sq m Kidney failure: <15 mL/min/1.73sq m eGFR calculated using average adult body mass. Additional eGFR calculator available at: http://www.[employer].Mobisante/multiple_crcl_2012.htm GFR/1.73 sq M predicted among non-blacks MDRD (S/P/Bld) [Vol rate/Area]NOT REPORTEDKettering Health SpringfieldJavieron [id number]-CoV-2, TotalNegativeNEGATIVE [facility] Health SpringfieldDENITACox [place] on above: Negative results do not rule [...] authorized laboratories. Fact sheet for Healthcare Providers: https://www.fda.gov/media/328802/download Fact sheet for Patients: https://www.fda.gov/media/225288/download METHODOLOGY: ECIA XZYW-CoX-0Nrvkz Health- OHRADHAYFDCDN-LvX-5, RapidNot DetectedNot DetectedKettering Health Springfield [facility] on above: Rapid NAAT: The specimen [...] management decisions. Fact sheet for Healthcare Providers: https://www.fda.gov/media/577153/download Fact sheet for Patients: https://www.fda.gov/media/007976/download Methodology: Isothermal Nucleic Acid Amplification Source.NASOPHARYNGEAL SWABKettering Health Springfield, KYBun/Cre RatioNOT REPORTEDKettering Health Springfield, KYGFR AmericanNOT REPORTED>60 mL/minKettering Health Springfield, KYGFR Non- AmericanPediatric GFR requires additional information. Refer to NKDEP website for calculator.>60 mL/minKettering Health Springfield, RIGlobulin (S) [Mass/Vol]NOT REPORTED1.5 - 3.8 g/dLKettering Health Springfield, KYInterpretation and review of laboratory resultsAbnoCleveland Clinic [facility] Hospital, KYDifferential TypeNOT REPORTEDKettering Health [place], RIErythrocyte distribution width (RBC) [Ratio]12.6 % 11.8 - 14.4 %[facility], RIImmachildren's hospital for rehabilitation granulocytes (Bld) [#/Vol]1 %High0 [facility], RIImmature granulocytes (Bld) [#/Vol]0.03 10*3/uLKettering Health Springfield, KYInterpretation and review of laboratory resultsAbnoCleveland Clinic [facility]on Hospital, RIMCHC (RBC) [Mass/Vol]34.4 g/dL28.4 - 34.8 g/dLKettering Health Springfield, RIPlatelet mean volume (Bld) [Entitic vol]10.5 fL8.1 - 13.5 fLKettering Health Springfield, RISegmented neutrophils/100 WBC (Bld)49 %34 - 64 %[facility], RISegs Absolute2.38[facility], KYWBC MorphologyNOT REPORTEDK[facility]tering Health [facility], RIPOC Glucose Fingerstickon [id number] [Mass/Vol]193 mg/tVSmpu82 - 110 mg/dLK[facility]tering Health [place], KYInterpretation and review of laboratory resultsAbnoCleveland Clinic [facility] Hospital, RIGlucose [Mass/Vol]162 mg/eQDjax75 - 110 mg/dLK[facility]tering Health [place], [place] Interpretation and review of laboratory resultsAbnoCleveland Clinic [facility]on Hospital, [place] Glucose [Mass/Vol]204 mg/kHZgeu02 - 110 mg/dLK[facility]tering Health [facility], RIInterpretation and review of laboratory resultsAbnoCleveland Clinic [facility] Hospital, RIGlucose [Mass/Vol] 197 mg/dCQmik56 - 110 mg/dLKettering Health [place], RIInterpretation and review of laboratory resultsAbWooster Community Hospital, SKMQQS-SaR-13 Abon 08-01-2020 SARS-CoV-19 Ab, TotNegativeNormalNEGMercy Sewanee Medical CenterComment on above:Result Comment: Negative results [...] authorized laboratories. Fact sheet for Healthcare Providers: https://www.fda.gov/media/575345/download Fact sheet for Patients: https://www.fda.gov/media/199640/download METHODOLOGY: ECIAPerformed By: #### ATRAZO #### [facility] [address] [place] [address] [phone] First Assistant: Kodak Akbar MD #### CMPX, EDTOX, LIP, CDP #### [place] [phone] First Assistant: RANDALL ModiCoV-2on [id number]-CoV-2NMcCullough-Hyde Memorial HospitalComment on above:Performed By: #### ATRAZO #### [facility] [address] [place] [address] First Assistant: Kodak Akbar MD #### CMPX, EDTOX, LIP, CDP #### [place] [phone] First Assistant: RANDALL ModiCoV-2,RapidNot DetectedNormalNOTDETMercy Canyon Ridge HospitalComment on above:Result Comment: Rapid NAAT: The specimen [...] management decisions. Fact sheet for Healthcare Providers: https://www.fda.gov/media/181662/download Fact sheet for Patients: https://www.fda.gov/media/807217/download Methodology: Isothermal Nucleic Acid AmplificationPerformed By: #### ATRAZO #### [facility] [address] [place] [address] First Assistant: Kodak Akbar MD #### FELICIA BUNN LIP, CDP #### [facility] [address] [place] [address] First Assistant: WILLIAM ModiARS-CoV-2 Source.NASOPHARYNGEAL SWABNormalOhiohealth Dublin Methodist HospitalComment on above:Performed By: #### ATRAZO #### [facility] [address] [place] [address] First Assistant: Kodak Akbar MD #### FELICIA BUNN LIP, CDP #### [facility] HospitalMoaxis Technologies Inc[facility] [address] [place] [address] First Assistant: Ahmet Modi [id number] (P) [Mass/Vol]34 umol/FOvgogm52-79Bcbsx Health- [place], KYComment on above:Performed By: #### ATRAZO #### [facility] [address] [place], [place] [phone] First Assistant: Kodak Akbar MD #### FELICIA BUNN LIP, CDP #### [facility] [address] [place] [address] First Assistant: Frank Otero [facility] Hospitalrosaura [id number] in LDL [Mass/Vol]78 mg/dL<100[place], KYCholesterol [Mass/Vol]139 mg/dL<200 [facility]- [place], KYComment on above: Cholesterol Guidelines: <200 Desirable 200-240 Borderline >240 Undesirable Cholesterol in HDL [Mass/Vol]20 mg/dLLow>40[facility]- [place], KYComment on above: HDL Guidelines: <40 Undesirable 40-59 Borderline >59 Desirable Cholesterol in LDL [Mass/Vol]0 - 130 mg/dLSalem Regional Medical Center Health- [place], KYComment on above: Calculation not valid for Triglyceride value greater than 400 mg/dL. Direct LDL reflexed LDL Guidelines: <100 Desirable 100-129 Near to/above Desirable 130-159 Borderline >159 Undesirable Direct (measured) LDL and calculated LDL are not interchangeable tests. Triglyceride [Mass/Vol]406 mg/dLHigh<150[facility]- [place], KYComment on above: Triglyceride Guidelines: <150 Desirable 150-199 Borderline 200-499 High >499 Very high Based on AHA Guidelines for fasting triglyceride, July 2012. EKG 12 Leadon [id number] Dpbz93BISHgnmn Health- [place], KYAtrial Qcaq49JNP [facility]- [place], KYAtrial Hywo16FAEFpnwj Health- [place], KYP Pdok33pmnmvpxWfuyp Health- [place], [place]YP Lxeo42zuqnnjgThsoz Health- [place], [place]YP Pjhq74aealypnSjuth Health- [place], [place]YP-R Arrvzjil783 msMercy Health- [place], [place]-R Heqlhixu259 msMercy Health- [place], [place]-R Nzkudvsj502 msMercy Health- [place], KYQ-T Fdojgnca678 msMercy Health- [place], KYQ- T Tajzwzbp110 msMercy Health- [place], KYQ-T Uzdaxzzc991 msMercy Health- [place], KYQRS Poyowlbj75 msMercy Health- [place], KYQTc Calculation ()454 msMercy Health- [place], KYQTc Calculation ()481 msMercy Health- [place], KYQTc Calculation ()421 msMercy Health- [place], KYR Cwkt60zbtyfsqBuvrg Health- [place], [place] Bugg60fdcmyoxUzqfw Health- [place], [place]YR Eajp78cwmqkhrVbvyg Health- [place], KYT Povv78ugseauwUltfo Health- [place], KYT Uhhx78udumrzsAepnq Health- [place], KYT Sems48uanujziZestn Health- [place], [place] Ventricular Qwli22VXBXxopo Health- [place], KYVentricular Mqoe65MIGNycoc Health- [place], KYVentricular Kuhl53ZNVLfkdw Health- [place], KYEdi, Mhpn Incoming Ekg Results From [employer] - 07/31/2020 11:14 AM EDT Normal sinus rhythm Normal ECG When compared with ECG of 30-JUL-2020 13:41, Premature ventricular complexes are no longer PresentMer Health- [place], KYNormal sinus rhythm Normal ECG When compared with ECG of 30-JUL-2020 13:41, Premature ventricular complexes are no longer PresentMer Health- [place], KYEdi, Mhpn Incoming Ekg Results From [employer] - 07/31/2020 11:14 AM EDT Normal sinus rhythm Possible Left atrial enlargement Rightward axis Borderline ECG When compared with ECG of 30-JUL-2020 13:50, T wave amplitude has increased in Anterolateral leadsSalem Regional Medical Center Health- [place], KYEdi, Mhpn Incoming Ekg Results From [employer] - 07/31/2020 11:14 AM EDT Sinus rhythm with frequent Premature ventricular complexes in a pattern of bigeminy Otherwise normal ECG When compared with ECG of 30-JUL-2020 13:35, Vent. rate has increased BY 29 BPM QT has lengthenedSalem Regional Medical Center Health- [place], KYSinus rhythm with frequent Premature ventricular complexes in a pattern of bigeminy Otherwise normal ECG When compared with ECG of 30-JUL-2020 13:35, Vent. rate has increased BY 29 BPM QT has lengthenedLutheran Hospitalcy Health- [place], KYNormal sinus rhythm Possible Left atrial enlargement Rightward axis Borderline ECG When compared with ECG of 30-JUL-2020 13:50, T wave amplitude has increased in Anterolateral leadsMer Health- [place], [place] Atrial Upnt93GXBDgviv Health- [place], KYP Sqdn05kmzmzggRvbvt Health- [place], KYP-R Jkggujti578 msMercy Health- [place], KYQ-T Ijzzsiee255 msMercy Health- [place], KYQRS Tvvzjgbp203 msMercy Health- [place], KYQTc Calculation (Bazett)410 msMercy Health- [place], KYR Kynu91ffpzbbtDzsle Health- [place], KYT Psca08jaqlhjsCyocm Health- [place], [place] Ventricular Ajoo85AVNDfvjx Health- [place], KYEdi, Mhpn Incoming Ekg Results From [employer] - 07/31/2020 11:14 AM EDT Sinus bradycardia with frequent Premature ventricular complexes Otherwise normal ECG No previous ECGs availableKettering Health Springfield, RISinus bradycardia with frequent Premature ventricular complexes Otherwise normal ECG No previous ECGs available [facility], RIHEMOGLOBIN A1Con [id number] [Mass/Vol]209 mg/dLKettering Health Springfield, RIComment on above:The ADA and AACC recommend providing the estimated average glucose result to permit better patient understanding of their HBA1c result. HbA1c (Bld) [Mass fraction]8.9 %High4 - 6 %[facility], RIInterpretation and review of laboratory resultsAbnormGreene Memorial Hospital, RIHEPATIC FUNCTION PANELon [id number] [Mass/Vol]4 g/dL3.5 - 5.2 g/dLKettering Health [place], RI Albumin/Globulin [Mass ratio]2.1 {ratio}[facility], RIALP [Catalytic activity/Vol]39 U/LLow40 - 129 U/LMSt. Mary's Medical Center, RIALT [Catalytic activity/Vol]18 U/L5 - 41 U/LMSt. Mary's Medical Center, KYAST [Catalytic activity/Vol]15 U/L<40[facility], RIBilirubin Ql (U)0.52 mg/dL0.3 - 1.2 mg/dLKettering Health [facility], RIBilirubin, Indirect0.39 mg/dL0 - 1 mg/dLKettering Health [place], RI Bilirubin.direct [Mass/Vol]0.13 mg/dL<0.31[facility], RIGlobulin (S) [Mass/Vol]NOT REPORTED1.5 - 3.8 g/dLKettering Health [place], RIInterpretation and review of laboratory resultsAbnoCleveland Clinic [facility]on Hospital, RIProtein [Mass/Vol]5.9 g/dLLow6.4 - 8.3 g/dLKettering Health [facility], RIHemoglobin A1Con [id number] (Bld) [Mass fraction]209 mg/dLNoMercy Health St. Elizabeth Boardman HospitalComment on above: Result Comment: The ADA and AACC recommend providing the estimated average glucose result to permit better patient understanding of their HBA1c result.Performed By: #### ATRAZO #### [facility] [address] [place] [address] First Assistant: Kodak Akbar MD #### CMPX, EDTOX, LIP, CDP #### [facility] [address] [place] [address] [phone] First Assistant: Frank Otero MDHbA1c (Bld) [Mass fraction]8.9 %High4.0-6.0Ohio[facility] Dublin Methodist HospitalComment on above:Performed By: #### ATRAZO #### [facility] [address] [place] [address] First Assistant: Kodak Akbar MD #### CMPX, EDTOX, LIP, CDP #### [facility] [address] [place] [address] [phone] First Assistant: Frank Otero MDLDL Chol, Directon [id number] Chol, Dsbivw28 mg/dLNormal<100Ohio[facility] HospitalComment on above:Performed By: #### ATRAZO #### [facility] [address] [place] [address] First Assistant: Kodak Akbar MD #### CMPX, EDTOX, LIP, CDP #### [address] [phone] First Assistant: Frank Otero MDLipid Profileon [id number] in LDL [Mass/Vol]Normal0-130Ohio[facility] Dublin Methodist HospitalComment on above:Result Comment: Calculation not valid for Triglyceride value greater than 400 mg/dL. Direct LDL reflexed LDL Guidelines: <100 Desirable 100-129 Near to/above Desirable 130-159 Borderline >159 Undesirable Direct (measured) LDL and calculated LDL are not interchangeable tests.Performed By: #### TSHX, LIPR, GLYHGB, MISCR, LDLDIR #### [facility] [address] [place] [address] [phone] First Assistant: EDNA Modiholesterol [Mass/Vol]139 mg/dLNormal<200Ohio[facility] Methodist HospitalComment on above:Result Comment: Cholesterol Guidelines: <200 Desirable 200-240 Borderline >240 UndesirablePerformed By: #### TSHX, LIPR, GLYHGB, MISCR, LDLDIR #### [address] [phone] First Assistant: EDNA Modiholesterol in HDL [Mass/Vol]20 mg/dLLow>40Ohio[facility] Methodist HospitalComment on above:Result Comment: HDL Guidelines: <40 Undesirable 40-59 Borderline >59 DesirablePerformed By: #### TSHX, LIPR, GLYHGB, MISCR, LDLDIR #### [address] [address] First Assistant: Dodie Modi.total/Cholesterol in HDL [Mass ratio]7.0 {ratio}High<5Ohio[facility] Dublin Methodist HospitalComment on above: Performed By: #### TSHX, LIPR, GLYHGB, MISCR, LDLDIR #### [facility] [address] [place] [address] First Assistant: Frank Otero MDTriglyceride [Mass/Vol]406 mg/dLHigh<150Ohio[facility] Dublin Methodist HospitalComment on above:Result Comment: Triglyceride Guidelines: <150 Desirable 150-199 Borderline 200-499 High >499 Very high Based on AHA Guidelines for fasting triglyceride, July 2012.Performed By: #### TSHX, LIPR, GLYHGB, MISCR, LDLDIR #### [facility] [address] [place] [address] [phone] First Assistant: EDNA Modiholesterol in VLDL [Mass/Vol]NOT REPORTEDNormal 1-30[facility] HospitalComment on above:Performed By: #### TSHX, LIPR, GLYHGB, MISCR, LDLDIR #### [facility] [address] [place] [address] First Assistant: Frank Otero MDLiver Profileon [id number] [Mass/Vol]4.0 g/dLNormal3.5-5.2Mer[facility] Canyon Ridge HospitalComment on above:Performed By: #### ATRAZO #### [facility] [address] [place] [address] First Assistant: Kodak Akbar MD #### CMPX, EDTOX, LIP, CDP #### [facility] [address] [place] [phone] First Assistant: Farnk Otero MDAlbumin/Globulin [Mass ratio]2.1 {ratio}Normal 1.0-2.5Ohio[facility] Dublin Methodist HospitalComment on above:Performed By: #### ATRAZO #### [facility] [address] [place] [address] First Assistant: Kodak Akbar MD #### CMPX, EDTOX, LIP, CDP #### [facility] [address] [place] [address] First Assistant: Fernando Modiline Phos39 U/XPpn54-452Latpm Canyon Ridge HospitalComment on above:Performed By: #### ATRAZO #### [facility] [address] [place] [phone] First Assistant: Kodak Akbar MD #### CMPX, EDTOX, LIP, CDP #### [facility] [address] [place] [phone] First Assistant: Frank Otero MDALT [Catalytic activity/Vol]18 U/LNormal5-41 [facility] HospitalComment on above:Performed By: #### ATRAZO #### [facility] [address] [place] [address] First Assistant: Kodak Akbar MD #### CMPX, EDTOX, LIP, CDP #### [facility] [address] [place] [address] First Assistant: Frank Otero MDAST [Catalytic activity/Vol]15 U/LNormal<40[facility] HospitalComment on above:Performed By: #### ATRAZO #### [facility] [address] [place] [address] First Assistant: Kodak Akbar MD #### CMPX, EDTOX, LIP, CDP #### [facility] [address] [place] [address] First Assistant: Frank Otero MDBilirubin Ql (U)0.52 mg/dLNormal0.3-1.2MMoreno Valley Community HospitalComment on above:Performed By: #### ATRAZO #### [facility] [address] [place] [address] First Assistant: Kodak Akbar MD #### CMPX, EDTOX, LIP, CDP #### [address] [address] First Assistant: Frank Otero MDBilirubin, Indirect0.39 mg/dLNormal0.00-1.00 [facility] HospitalComment on above:Performed By: #### ATRAZO #### [facility] [address] [place] [address] [phone] First Assistant: Kodak Akbar MD #### CMPX, EDTOX, LIP, CDP #### [address] [address] First Assistant: Frank Otero MDBilirubin.direct [Mass/Vol]0.13 mg/dLNormal<0.31 [facility] HospitalComment on above:Performed By: #### ATRAZO #### [facility] [address] [place] [address] First Assistant: Kodak Akbar MD #### CMPX, EDTOX, LIP, CDP #### [facility] [address] [place] [address] First Assistant: MILAGROS Modirotein [Mass/Vol]5.9 g/dLLow6.4-8.3MMoreno Valley Community HospitalComment on above:Performed By: #### ATRAZO #### [facility] [address] [place] [address] First Assistant: Kodak Akbar MD #### CMPX, EDTOX, LIP, CDP #### [facility] [address] [place] [address] [phone] First Assistant: Frank Otero MDGlobulin (S) [Mass/Vol]NOT REPORTEDNormal1.5-3.8 [facility] HospitalComment on above:Performed By: #### ATRAZO #### [facility] [address] [place] [address] First Assistant: Kodak Akbar MD #### CMPX, EDTOX, LIP, CDP #### [address] [phone] First Assistant: Catherine Modi German Hospitalon [phone] NameUNM CARRIE [facility] [id number] [facility] Medical CenteralOhiohealth Dublin Methodist HospitalComment on above:Performed By: #### ATRAZO #### [facility] [address] [place] [address] [phone] First Assistant: Kodak Akbar MD #### CMPX, EDTOX, LIP, CDP #### [address] [phone] First Assistant: Frank Otero MDOtherrosaura [id number] Foil02KIVLrpms Health- [place], [place] Wjec67dqlzbjrVurrq Health- [place], [place]-R Ktladnuc126 [facility]- [place], [place] Q-T Rvxsuzpb875 [facility]- [place], KYQRS [id number] [facility], KYQTc Calculation ()406 msMSCCI Hospital [facility] [place], [place] Haet18fbatrhrNphol Health- [place], KYT Rrxr64kdubelpNrmikTwin City Hospital, KYVentricular Ugxg16LFDPcpskSt. Mary's Medical Center, [place] Sergey, Mhpn Incoming Ekg Results From [place] - 07/31/2020 11:14 AM EDT Normal sinus rhythm Normal ECG When compared with ECG of 30-JUL-2020 13:50, No significant change was foundK[facility] [place], KYNormal sinus rhythm Normal ECG When compared with ECG of 30-JUL-2020 13:50, No significant change was found [facility], KYCholesterol in VLDL [Mass/Vol]NOT REPORTED1 - 30 mg/dLKettering Health [place], RICholesterol.total/Cholesterol in HDL [Mass ratio]7 {ratio}High<5 [facility], RIInterpretation and review of laboratory resultsAbWooster Community Hospital, RIPO Glucose Fingerstickon 41-61-2600Nuwvzmg [Mass/Vol]239 mg/dL High75 - 110 mg/dLKettering Health [place], RIInterpretation and review of laboratory resultsAbWooster Community Hospital, RIGlucose [Mass/Vol]213 mg/xJCesz78 - 110 mg/dL [facility], RIInterpretation and review of laboratory resultsAbWooster Community Hospital, RIGlucose [Mass/Vol]190 mg/oRRbbj90 - 110 mg/dLKettering Health [place], [place] Interpretation and review of laboratory resultsAbWooster Community Hospital, [place] Glucose [Mass/Vol]160 mg/oGLhkf59 - 110 mg/dLKettering Health [place], RIInterpretation and review of laboratory resultsAbWooster Community Hospital, RITS w/reflex to FT4 on 69-09-2384ICN Qn4.89 m[IU]/LNormal0.30-5.00[facility] Comment on above:Performed By: #### TSHX, LIPR, GLYHGB, MISCR, LDLDIR #### [facility] [address] [place] [address] First Assistant: Frank Otero MDThyroidon 33-05-1596JPS Qn4.89 m[IU]/LMercClinch Valley Medical Center- [place], KYBlood Gason 30-08-0895Nydzre saturation in Gwbcd639 %High60 - 85 % [facility]- [place], KYCBC Auto Differentialon 24-00-5948Zdbtiubxq (Bld) [#/Vol] 0.08 10*3/[facility]- [place], KYBasophils/100 WBC (Bld)1 %0 - 2 %[facility] [place], KYDifferential TypeNOT REPORTEDC[facility]- [place], KYEosinophils (Bld) [#/Vol] 0.07 10*3/[facility]- [place], KYEosinophils/100 WBC (Bld)1 %1 - 4 %[facility]- [place], KYErythrocyte distribution width (RBC) [Ratio]12.6 %11.8 - 14.4 %[facility]- [place], KYHematocrit (Bld) [Volume fraction]53.6 %High40.7 - 50.3 %[facility]- [place], KYHemoglobin (Bld) [Mass/Vol]19.2 g/zABigm49 - 17 g/dLLima Memorial Hospital [place], KYImmature granulocytes (Bld) [#/Vol]0.08 10*3/[facility]- [place], [place] Immature granulocytes (Bld) [#/Vol]1 %Mmsr7KhetqLima Memorial Hospital [place], KYInterpretation and review of laboratory resultsAbnormSelect Medical Specialty Hospital - [facility] [place], KYLymphocytes (Bld) [#/Vol]4.09 10*3/[facility]- [place], KYLymphocytes/100 WBC (Bld)43 %25 - 45 % [facility]- [place], KYMCH (RBC) [Entitic mass]31.8 pg25.2 - 33.5 pgCleveland Clinic [facility]- [place], KYMCHC (RBC) [Mass/Vol]35.8 g/cAAwrm08.4 - 34.8 g/dLCleveland Clinic [facility]- [place], KYMCV (RBC) [Entitic vol]88.7 fL82.6 - 102.9 fLCleveland Clinic Children'S [facility]- [place], KYMonocytes (Bld) [#/Vol]0.67 10*3/[facility], KYMonocytes/100 WBC (Bld)7 %2 - 8 %[facility], KYPlatelet mean volume (Bld) [Entitic vol]10.9 fL8.1 - 13.5 fLKettering Health [place], KYPlatelets (Bld) [#/Vol]NOT REPORTEDKettering Health [place], KYPlatelets (Bld) [#/Vol]226 10*3/uLKettering Health [place], KYRBC (Bld) [#/Vol]6.04 10*6/uLHigh 4.21 - 5.77 m/uLKettering Health [place], RIRBC morphology finding Nom (Bld)NOT REPORTED [facility], RISegmented neutrophils/100 WBC (Bld)47 %34 - 64 %[facility], DENITASegs Absolute4.47[facility], KYWBC (Bld) [#/Vol]0.0 10*3/uL 0.0 per 100 WBCKettering Health [place], RIWBC (Bld) [#/Vol]9.5 10*3/[facility], KYWBC MorphologyNOT REPORTEDKettering Health [place], RICBC with Diffon 31-93-3726Gib. Basophil0.08 k/uLNormal0.00-0.20[facility] HospitalComment on above:Performed By: #### ATRAZO #### [facility] [address] [place] [address] First Assistant: Kodak Akbar MD #### CMPX, EDTOX, LIP, CDP #### [facility] [address] [place], [place] [address] First Assistant: Luis Enrique Modi.Imm.Granulocyte0.08 k/uLNormal0.00-0.30[facility] HospitalComment on above:Performed By: #### ATRAZO #### [facility] [address] [place] [address] First Assistant: Kodak Akbar MD #### CMPX, EDTOX, LIP, CDP #### [facility] [address] [place] [address] First Assistant: Luis Enrique Modi.Neutrophil (Seg)4.47 k/uLNormal1.80-8.00 [facility] HospitalComment on above:Performed By: #### ATRAZO #### [facility] [address] [place] [address] First Assistant: Kodak Akbar MD #### CMPX, EDTOX, LIP, CDP #### [address] [address] First Assistant: Frank Otero MDBasophils/100 WBC (Bld)1 %Normal0-2MMoreno Valley Community HospitalComment on above:Performed By: #### ATRAZO #### [facility] [address] [place] [address] First Assistant: Kodak Akbar MD #### CMPX, EDTOX, LIP, CDP #### [address] [address] First Assistant: Frank Otero MDEosinophils (Bld) [#/Vol]0.07 10*3/uLNormal 0.00-0.44[facility] HospitalComment on above:Performed By: #### ATRAZO #### [facility] [address] [place] [address] First Assistant: Kodak Akbar MD #### CMPX, EDTOX, LIP, CDP #### [facility] [address] [place] [address] First Assistant: Frank Otero MDEosinophils/100 WBC (Bld)1 %Normal1-4[facility] HospitalComment on above:Performed By: #### ATRAZO #### [facility] [address] [place] [address] First Assistant: Kodak Akbar MD #### CMPX, EDTOX, LIP, CDP #### [place] [phone] First Assistant: Frank Otero MDErythrocyte distribution width (RBC) [Ratio]12.6 %Uklvcx93.8-14.4[facility] HospitalComment on above:Performed By: #### ATRAZO #### [facility] [address] [place] [address] First Assistant: Kodak Akbar MD #### CMPX, EDTOX, LIP, CDP #### [place] [address] First Assistant: Frank Otero MDHematocrit (Bld) [Volume fraction]53.6 %High 40.7-50.3[facility] Canyon Ridge HospitalComment on above:Performed By: #### ATRAZO #### [facility] [address] [place] [address] First Assistant: Kodak Akbar MD #### CMPX, EDTOX, LIP, CDP #### [place] [phone] First Assistant: Frank Otero MDHemoglobin (Bld) [Mass/Vol]19.2 g/dLHigh 13.0-17.0[facility] HospitalComment on above:Performed By: #### ATRAZO #### [facility] [address] [place] [address] First Assistant: Kodak Akbar MD #### CMPX, EDTOX, LIP, CDP #### [place] [phone] First Assistant: Frank Otero MDImmature granulocytes (Bld) [#/Vol]1 %Reap4EnkusOhiohealth Dublin Methodist HospitalComment on above:Performed By: #### ATRAZO #### [facility] [address] [place] [address] First Assistant: Kodak Akbar MD #### CMPX, EDTOX, LIP, CDP #### [address] [phone] First Assistant: Frank Otero MDLymphocytes (Bld) [#/Vol]4.09 10*3/uLNormal 1.20-5.20[facility] HospitalComment on above:Performed By: #### ATRAZO #### [facility] [address] [place] [address] First Assistant: Kodak Akbar MD #### CMPX, EDTOX, LIP, CDP #### [address] [phone] First Assistant: Frank Otero MDLymphocytes/100 WBC (Bld)43 %Uvozco86-39PimidOhiohealth Dublin Methodist HospitalComment on above:Performed By: #### ATRAZO #### [facility] [address] [place] [address] First Assistant: Kodak Akbar MD #### CMPX, EDTOX, LIP, CDP #### [address] [phone] First Assistant: BHANU ModiCH (RBC) [Entitic mass]31.8 icPqsloa50.2-33.5 [facility] HospitalComment on above:Performed By: #### ATRAZO #### [facility] [address] [place] [address] First Assistant: Kodak Akbar MD #### CMPX, EDTOX, LIP, CDP #### [address] [phone] First Assistant: BHANU ModiCHC (RBC) [Mass/Vol]35.8 g/dTPurk47.4-34.8[facility] HospitalComment on above:Performed By: #### ATRAZO #### [facility] [address] [place] [address] First Assistant: Kodak Akbar MD #### CMPX, EDTOX, LIP, CDP #### [address] [address] First Assistant: BHANU ModiCV (RBC) [Entitic vol]88.7 nVXiqaor57.6-102.9 [facility] HospitalComment on above:Performed By: #### ATRAZO #### [facility] [address] [place] [address] First Assistant: Kodak Akbar MD #### CMPX, EDTOX, LIP, CDP #### [address] [address] First Assistant: BHANU Modionocytes (Bld) [#/Vol]0.67 10*3/uLNormal 0.10-1.40[facility] HospitalComment on above:Performed By: #### ATRAZO #### [facility] [address] [place] [address] First Assistant: Kodak Akbar MD #### CMPX, EDTOX, LIP, CDP #### [address] [address] First Assistant: BHANU Modionocytes/100 WBC (Bld)7 %Normal2-8[facility] HospitalComment on above:Performed By: #### ATRAZO #### [facility] [address] [place] [address] First Assistant: Kodak Akbar MD #### CMPX, EDTOX, LIP, CDP #### [address] [address] First Assistant: Frank Madoff, MDNeutrophil (Seg)47 %Ihqofr34-46PufeoOhiohealth Dublin Methodist HospitalComment on above:Performed By: #### ATRAZO #### [facility] [address] [place] [address] First Assistant: Kodak Akbar MD #### CMPX, EDTOX, LIP, CDP #### [address] [address] First Assistant: Frank Otero MDNRBC Automated0.0 per 100 WBCNormal0.0[facility] HospitalComment on above:Performed By: #### ATRAZO #### [facility] [address] [place] [address] First Assistant: Kodak Akbar MD #### CMPX, EDTOX, LIP, CDP #### [place] [address] First Assistant: Viki Modi mean volume (Bld) [Entitic vol]10.9 fL Normal8.1-13.5[facility] HospitalComment on above:Performed By: #### ATRAZO #### [facility] [address] [place] [address] First Assistant: Kodak Akbar MD #### CMPX, EDTOX, LIP, CDP #### [place] [address] First Assistant: Irvin Modi (Bld) [#/Vol]226 10*3/iHJgxois517-339 [facility] HospitalComment on above:Performed By: #### ATRAZO #### [facility] [address] [place] [address] First Assistant: Kodak Akbar MD #### CMPX, EDTOX, LIP, CDP #### [address] [address] First Assistant: LACY Modi (Bld) [#/Vol]6.04 10*6/uLHigh4.21-5.77[facility] HospitalComment on above:Performed By: #### ATRAZO #### [facility] [address] [place] [address] First Assistant: Kodak Akbar MD #### CMPX, EDTOX, LIP, CDP #### [facility] [address] [place] [address] First Assistant: Frank Otero MDJACOBI MEDICAL CENTER (Bld) [#/Vol]9.5 10*3/uLNormal4.5-13.5[facility] HospitalComment on above:Performed By: #### ATRAZO #### [facility] [address] [place] [address] First Assistant: Kodak Akbar MD #### CMPX, EDTOX, LIP, CDP #### [facility] [address] [place] [address] First Assistant: Kay Modi PerformedNOT REPORTEDNoMercy Health St. Elizabeth Boardman HospitalComment on above:Performed By: #### ATRAZO #### [facility] [address] [place] [address] First Assistant: Kodak Akbar MD #### CMPX, EDTOX, LIP, CDP #### [facility] [address] [place] [address] First Assistant: Irvin Modi (Bld) [#/Vol]NOT REPORTEDMercy Health Allen HospitalComment on above:Performed By: #### ATRAZO #### [facility] [address] [place] [address] First Assistant: Kodak Akbar MD #### CMPX, EDTOX, LIP, CDP #### [facility] [address] [place] [address] [phone] First Assistant: EVAN Modi morphology finding Nom (Bld)NOT REPORTED [facility] HospitalComment on above:Performed By: #### ATRAZO #### [facility] [address] [place] [address] First Assistant: Kodak Akbar MD #### CMPX, EDTOX, LIP, CDP #### [facility] [address] [place] [address] [phone] First Assistant: Frank Otero MDW MorphologyNOT REPORTEDNormalOhiohealth Dublin Methodist HospitalComment on above:Performed By: #### ATRAZO #### [facility] [address] [place] [address] First Assistant: Kodak Akbar MD #### CMPX, EDTOX, LIP, CDP #### [facility] [address] [place] [address] [phone] First Assistant: EDNA Modihuntsman mental health institute Metabolic Pr/rfx MGon 26-23-1518DON [Catalytic activity/Vol]20 U/LNormal<40[facility] HospitalComment on above:Performed By: #### ATRAZO #### [facility] [address] [place] [address] First Assistant: Kodak Akbar MD #### CMPX, EDTOX, LIP, CDP #### [facility] [address] [place] [address] [phone] First Assistant: Frank Otero MD(cont.)[facility] Comment on above:Result Comment: Average GFR for <20 years old not available. Chronic Kidney Disease: <60 mL/min/1.73sq m Kidney failure: <15 mL/min/1.73sq m eGFR calculated using average adult body mass. Additional eGFR calculator available at: http://www.[employer].com/multiple_crcl_2012.htmPerformed By: #### ATRAZO #### [facility] [address] [place] [address] First Assistant: Kodak Akbar MD #### CMPX, EDTOX, LIP, CDP #### [address] [address] First Assistant: Frank Otero MDAlbumin [Mass/Vol]4.8 g/dLNormal3.5-5.2Mlicking memorial hospitaly [facility] Ridge HospitalComment on above:Performed By: #### ATRAZO #### [facility] [address] [place] [address] First Assistant: Kodak Akbar MD #### CMPX, EDTOX, LIP, CDP #### [address] [phone] First Assistant: Frank Otero MDAlbumin/Globulin [Mass ratio]1.9 {ratio}Normal 1.0-2.5[facility] HospitalComment on above:Performed By: #### ATRAZO #### [facility] [address] [place] [address] First Assistant: Kodak Akbar MD #### CMPKatalina, EDTOX, LIP, CDP #### [address] [phone] First Assistant: Kaylen Modi Phos49 U/WJvdlnm78-877QcvjxOhiohealth Dublin Methodist HospitalComment on above:Performed By: #### ATRAZO #### [facility] [address] [place] [address] First Assistant: Kodak Akbar MD #### CMPX, EDTOX, LIP, CDP #### [address] [phone] First Assistant: Frank Otero MDALT [Catalytic activity/Vol]24 U/LNormal5-41 [facility] HospitalComment on above:Performed By: #### ATRAZO #### [facility] [address] [place] [address] First Assistant: Kodak Akbar MD #### CMPX, EDTOKatalina, LIP, CDP #### [address] [address] First Assistant: Frank Otero MDAnion gap [Moles/Vol]13 mmol/LNormal9-17[facility] HospitalComment on above:Performed By: #### ATRAZO #### [facility] [address] [place] [address] First Assistant: Kodak Akbar MD #### CMPX, FELICIA, LIP, CDP #### [address] [phone] First Assistant: Frank Otero MDBilirubin Ql (U)0.84 mg/dLNormal0.3-1.2MMoreno Valley Community HospitalComment on above:Performed By: #### ATRAZO #### [facility] [address] [place] [address] First Assistant: Kodak Akbar MD #### SEPIDEH, FELICIA, LIP, CDP #### [address] [phone] First Assistant: EDNA Modialcium [Mass/Vol]9.6 mg/dLNormal8.6-10.4[facility] HospitalComment on above:Performed By: #### ATRAZO #### [facility] [address] [place] [address] First Assistant: Kodak Akbar MD #### CMPX, EDTOKatalina, LIP, CDP #### [address] [phone] First Assistant: EDNA Modihloride [Moles/Vol]105 mmol/JLemptm61-974VzonxOhiohealth Dublin Methodist HospitalComment on above:Performed By: #### ATRAZO #### [facility] [address] [place] [address] First Assistant: Kodak Akbar MD #### CMPX, EDTOX, LIP, CDP #### [address] [address] First Assistant: EDNA ModiO2 [Moles/Vol]21 mmol/OIsxanw33-71MehaoOhiohealth Dublin Methodist HospitalComment on above:Performed By: #### ATRAZO #### [facility] [address] [place] [address] First Assistant: Kodak Akbar MD #### CMPX, EDTOX, LIP, CDP #### [address] [address] First Assistant: EDNA Modireatinine [Mass/Vol]0.91 mg/dLNormal0.70-1.20 [facility] HospitalComment on above:Performed By: #### ATRAZO #### [facility] [address] [place] [address] First Assistant: Kodak Akbar MD #### CMPX, EDTOX, LIP, CDP #### [address] [address] First Assistant: Frank Otero MDGFR,non AmerPediatric GFR requires additional information. Refer to NKDEP website forNormal>60[facility] HospitalComment on above:Result Comment: calculator.Performed By: #### ATRAZO #### [facility] [address] [place] [address] First Assistant: Kodak Akbar MD #### CMPX, EDTOX, LIP, CDP #### [address] [phone] First Assistant: Frank Otero MDGlucose [Mass/Vol]198 mg/wMZchd80-26Wnbwt [facility] HospitalComment on above:Performed By: #### ATRAZO #### [facility] [address] [place] [address] First Assistant: Kodak Akbar MD #### CMPX, EDTOX, LIP, CDP #### [address] [address] First Assistant: MILAGROS Modiotassium [Moles/Vol]3.9 mmol/LNormal3.7-5.3 [facility] HospitalComment on above:Performed By: #### ATRAZO #### [facility] [address] [place] [address] First Assistant: Kodak Akbar MD #### CMPX, EDTOX, LIP, CDP #### [place] [address] First Assistant: MILAGROS Modirotein [Mass/Vol]7.3 g/dLNormal6.4-8.3Mlicking memorial hospitaly [facility] HospitalComment on above:Performed By: #### ATRAZO #### [facility] [address] [place] [address] First Assistant: Kodak Akbar MD #### CMPX, EDTOX, LIP, CDP #### [place] [address] First Assistant: Frank Otero MDSodium [Moles/Vol]139 mmol/ZBiljcm563-056WgjjtOhiohealth Dublin Methodist HospitalComment on above:Performed By: #### ATRAZO #### [facility] [address] [place] [address] First Assistant: Kodak Akbar MD #### CMPX, EDTOX, LIP, CDP #### [address] [address] First Assistant: Frank Otero MDUrea nitrogen [Mass/Vol]13 mg/dLNormal6-20[facility] HospitalComment on above:Performed By: #### ATRAZO #### [facility] [address] [place] [address] First Assistant: Kodak Akbar MD #### CMPX, EDTOX, LIP, CDP #### [facility] [address] [place] [address] [phone] First Assistant: LELIA Modi/LANEY Alfaro REPORTEDNormal9-20[facility] HospitalComment on above:Performed By: #### ATRAZO #### [facility] [address] [place] [address] First Assistant: Kodka Akbar MD #### CMPX, EDTOX, LIP, CDP #### [facility] [address] [place] [address] [phone] First Assistant: RADHA Modi,Karol AmerNOT REPORTEDNormal>60[facility] HospitalComment on above:Performed By: #### ATRAZO #### [facility] [address] [place] [address] First Assistant: Kodak Akbar MD #### CMPX, EDTOX, LIP, CDP #### [facility] [address] [place] [address] [phone] First Assistant: WILLIAM Moditaging:NOT REPORTEDNormalMerJohn C. Fremont HospitalComment on above:Performed By: #### ATRAZO #### [facility] [address] [place] [address] First Assistant: Kodak Akbar MD #### CMPX, EDTOX, LIP, CDP #### [facility] [address] [place] [address] First Assistant: Santos Modi 17-95-6974Rnaukmu [Mass/Vol]mg/dL<10 mg/dLKettering Health [place], KYDrug Scr, Abuse, Uron 14-96-2967Gbqzjjerdtq(s),Ur NegativeNormalNEGMercy Canyon Ridge HospitalComment on above:Result Comment: (Positive cutoff 1000 ng/mL)Performed By: #### BRANDIN #### [facility] HospitalMo[facility] [address] [place] [address] First Assistant: Frank Otero MDBarbiturate(s),UrNegativeNormalNEGOhiohealth Dublin Methodist HospitalComment on above:Result Comment: (Positive cutoff 200 ng/mL)Performed By: #### BRANDIN #### [address] [address] First Assistant: Frank Otero MDBase excess Calc (Bld) [Moles/Vol]NegativeNormal NEGOhiohealth Dublin Methodist HospitalComment on above:Result Comment: (Positive cutoff 300 ng/mL)Performed By: #### BRANDIN #### [facility] [address] [place] [address] First Assistant: Frank Otero MDBenzodiazepine(s)NegativeNormalNEGOhiohealth Dublin Methodist HospitalComment on above:Result Comment: (Positive cutoff 200 ng/mL)Performed By: #### BRANDIN #### [facility] [address] [place] [address] First Assistant: EDNA Modiannabinoid(s),UrNegativeNormalNEGMerJohn C. Fremont HospitalComment on above:Result Comment: (Positive cutoff 50 ng/mL)Performed By: #### BRANDIN #### [address] [address] First Assistant: Frank Otero MDInterpretive InfoAssay provides medical screening only. The absence of expected drug(s) and/orNormalMercy Canyon Ridge HospitalComment on above:Result Comment: metabolite(s) may indicate diluted or adulterated urine, limitations of testing or timing of collection. Testing for legal purposes should be confirmed by another method. To request confirmation of test result, please call the lab within 7 days of sample submission.Performed By: #### BRANDIN #### [address] [address] First Assistant: BHANU Modiethadone Ql (U)NegativeNormalNEGMerJohn C. Fremont HospitalComment on above:Result Comment: (Positive cutoff 300 ng/mL)Performed By: #### BRANDIN #### [address] [address] First Assistant: Frank Otero MDOpiate(s), UrNegativeNormalNEGMerJohn C. Fremont HospitalComment on above:Result Comment: (Positive cutoff 300 ng/mL)Performed By: #### BRANDIN #### [address] [address] First Assistant: Frank Otero MDOxycodone, UrineNegativeNormalNEGOhiohealth Dublin Methodist HospitalComment on above:Result Comment: (Positive cutoff 100 ng/mL)Performed By: #### BRANDIN #### [address] [address] First Assistant: MILAGROS Modihencyclidine, UrNegativeNormalNEGMerJohn C. Fremont HospitalComment on above:Result Comment: (Positive cutoff 25 ng/mL)Performed By: #### BRANDIN #### [address] [address] First Assistant: Frank Otero MDBuprenorphrine, UrNOT REPORTEDNormalNEGMercy Canyon Ridge HospitalComment on above:Performed By: #### BRANDIN #### [address] [address] First Assistant: BHANU ModiDMA, UrineNOT REPORTEDNormalNEGMerJohn C. Fremont HospitalComment on above:Performed By: #### BRANDIN #### [address] [place] [address] First Assistant: BHANU Modiethamphetamine, UrNOT REPORTEDNormalNEGOhiohealth Dublin Methodist HospitalComment on above:Performed By: #### BRANDIN #### [facility] [address] [place] [address] First Assistant: Frank Otero MDPropoxyphene,UrineNOT REPORTEDNormalNEGMerJohn C. Fremont HospitalComment on above:Performed By: #### BRANDIN #### [facility] [address] [place] [address] First Assistant: Frank Otero MDTricyclic antidepressants Screen Ql (U)NOT REPORTEDNormalNEGOhiohealth Dublin Methodist HospitalComment on above:Performed By: #### BRANDIN #### [address] [address] First Assistant: Frank Otero MDHematologyon 79-53-6849eEZK Coag (Bld) [Time]NOT REPORTEDKettering Health [place], KYHematocrit (Bld) [Volume fraction]56 %High41 - 53 % [facility]- [place], KYHemoglobin (Bld) [Mass/Vol]19.1 g/wTGtni80.5 - 17.5 g/dL [facility]- [place], KYLactic Acid,Whole Blon 98-78-4761Dffxkq Acid,Whole Bl1.0 mmol/LNormal0.7-2.1MMoreno Valley Community HospitalComment on above:Performed By: #### LACWB #### [facility] [address] [place] [address] First Assistant: Frank Otero MDLipaseon 31-80-6029Jlpxvi [Catalytic activity/Vol]36 U/RMjgmqh39-70YjnytOhiohealth Dublin Methodist HospitalComment on above: Performed By: #### ATRAZO #### [facility] [address] [address] First Assistant: Kodak Akbar MD #### CMPX, EDTOX, LIP, CDP #### [facility] [address] [place] [id number] First Assistant: BHANU Modietabolic Panelon 79-93-9217Tgpudeb [Mass/Vol] 4.8 g/dL3.5 - 5.2 g/dLMercy Health- [place], KYALP [Catalytic activity/Vol]49 U/L40 - 129 U/LMercy Health- [place], KYALT [Catalytic activity/Vol]24 U/L5 - 41 U/LMercy Health- [place], KYAnion gap [Moles/Vol]13 mmol/L9 - 17 mmol/LMercy Health- [place], KYAST [Catalytic activity/Vol]20 U/L<40[facility] [place], KYCalcium [Mass/Vol]9.6 mg/dL8.6 - 10.4 mg/dLSalem Regional Medical [facility]- [place], KYChloride [Moles/Vol]105 mmol/L98 - 107 mmol/LMercy Health- [place], KYCO2 [Moles/Vol]21 mmol/L20 - 31 mmol/LMercy [facility]- [place], KYCreatinine [Mass/Vol]0.91 mg/dL0.7 - 1.2 mg/dLCleveland Clinic [facility]- [place], KYGFR/1.73 sq M predicted among non-blacks MDRD (S/P/Bld) [Vol rate/Area]NOT REPORTEDCleveland Clinic [facility]- [place], KYGFR/1.73 sq M predicted among non-blacks MDRD (S/P/Bld) [Vol rate/Area][facility], KYComment on above:Average GFR for <20 years old not available. Chronic Kidney Disease: <60 mL/min/1.73sq m Kidney failure: <15 mL/min/1.73sq m eGFR calculated using average adult body mass. Additional eGFR calculator available at: http://www.[employer].M[employer]isante/multiple_crcl_2011.htm Glucose [Mass/Vol]198 mg/tBZeah87 - 99 mg/dLSalem Regional Medical Center [facility]- [place], KYPotassium [Moles/Vol]3.9 mmol/L3.7 - 5.3 mmol/LMercy Health- [place], KYProtein [Mass/Vol]7.3 g/dL6.4 - 8.3 g/dLK[facility]tering Health [place], KYSodium [Moles/Vol]139 mmol/L135 - 144 mmol/LMSt. Mary's Medical Center, KYUrea nitrogen [Mass/Vol]13 mg/dL6 - 20 mg/dLKettering Health [place], KYAnion gap [Moles/Vol]10 mmol/L7 - 16 mmol/LMSt. Mary's Medical Center, [place] Chloride [Moles/Vol]109 mmol/LHigh98 - 107 mmol/LMSt. Mary's Medical Center, KYCreatinine [Mass/Vol]1.11 mg/dL0.51 - 1.19 mg/dLKettering Health [place], KYGFR/1.73 sq M predicted among non-blacks MDRD (S/P/Bld) [Vol rate/Area][facility], KYComment on above:Average GFR for <20 years old not available. Chronic Kidney Disease: <60 mL/min/1.73sq m Kidney failure: <15 mL/min/1.73sq m eGFR calculated using average adult body mass. Additional eGFR calculator available at: http://www.[employer]/multiple_crcl_2012.htm GFR/1.73 sq M predicted among non-blacks MDRD (S/P/Bld) [Vol rate/Area] mL/min/{1.73_m2}>60 mL/minKettering Health [place], KYGlucose [Mass/Vol]220 mg/yQGsni57 - 100 mg/dLK[facility]tering Health [place], KYPotassium [Moles/Vol]3.8 mmol/L3.5 - 4.5 mmol/L [facility], KYSodium [Moles/Vol]141 mmol/L138 - 146 mmol/LMSt. Mary's Medical Center, KYOtheron 71-40-3096Bvngwoncrgq Screen, UrNegativeNEGATIVEK[facility]tering Health [facility], RIComment on above: (Positive cutoff 1000 ng/mL) Barbiturate Screen, UrNegativeNEGATIVEKettering Health [facility], KYComment on above: (Positive cutoff 200 ng/mL) Benzodiazepine Screen, UrineNegativeNEGATIVEKettering Health [place], KYComment on above: (Positive cutoff 200 ng/mL) [...] urine, limitations of testing or timing of collection.[employer]- [place], DENITAComted on above:Testing for legal purposes should be confirmed by another method. To request confirmation of test result, please call the lab within 7 days of sample submission. Tricyclic Antidepressants, UrineNOT REPORTEDNEGATIVEMercy Health- [place], KYLactic Acid, Whole Blood1.0 mmol/L0.7 - 2.1 mmol/LMercy emploi.us- [place], KYNo acute findings [facility]- [place], DENITAEXAMINATION: ONE XRAY VIEW OF THE CHEST 07/30/2020 2:21 pm COMPARISON: None. HISTORY: ORDERING SYSTEM PROVIDED HISTORY: durg overdose TECHNOLOGIST PROVIDED HISTORY: durg overdose FINDINGS: Cardiac silhouette is enlarged. Lungs appear clear. No acute abnormality.[email or web address] OHDelano Mhpn Incoming Radiant Results From [facility] - 07/30/2020 2:26 PM EDT EXAMINATION: ONE [...] Health- [place], KYAllen TestNOT REPORTEDMer[facility]- [place], GIETT8VFH REPORTEDMer[facility]- [place], KYGFR Non->60>60 mL/minMercy Health- [place], KYHCO3, Ssnvcr16.3 mmol/L22 - 29 mmol/L [facility]- [place], [...] REPORTEDmm HgMercy Health- [place], KYPOC pH TempNOT REPORTEDKettering Health [facility], KYPOC pO2 TempNOT REPORTEDmm HgKettering Health [place], [place] Positive Base Excess, Cid6CwfxeK[facility]tering Health [facility], KYSample SiteNOT REPORTEDK[facility]tering Health [place], RITotal CO2, Jkcmxk21 mmol/L23 - 30 mmol/LMSt. Mary's Medical Center, RIPO Glucose Fingerstickon [id number] [Mass/Vol]148 mg/wYKkqy90 - 110 mg/dL [facility], RIInterpretation and review of laboratory resultsAbnoCleveland Clinic [facility], RIGlucose [Mass/Vol]190 mg/oIHbjh76 - 110 mg/dLKettering Health [place], [place] Interpretation and review of laboratory resultsAbnormGreene Memorial Hospital, RITox Scr, Bld, EDon [id number] [Mass/Vol]<8Udc80-67NpsbuOhiohealth Dublin Methodist HospitalComment on above:Performed By: #### ATRAZO #### [facility] [address] [place] [address] First Assistant: Kodak Akbar MD #### CMPX, ADRIÁNX, LIP, CDP #### [facility] [address] [place] [address] First Assistant: Amaris Modilaleah<4Txp2-00EndouOhiohealth Dublin Methodist HospitalComment on above:Performed By: #### ATRAZO #### [facility] [address] [place] [address] First Assistant: Kodak Akbar MD #### CMPX, EDTOX, LIP, CDP #### [facility] [address] [place] [address] First Assistant: Frank Otero MDEthanol [Mass/Vol]mg/dLNormal<10Ohiohealth Dublin Methodist HospitalComment on above:Performed By: #### ATRAZO #### [facility] [address] [place] [address] First Assistant: Kodak Akbar MD #### CMPX, EDTOX, LIP, CDP #### [facility] [address] [place] [address] First Assistant: Frank Otero MDEthanol percent<0.010Normal<0.010Ohiohealth Dublin Methodist HospitalComment on above:Performed By: #### ATRAZO #### [facility] [address] [place] [address] First Assistant: Kodak Akbar MD #### CMPX, EDTOX, LIP, CDP #### [facility] [address] [place] [address] [phone] First Assistant: Frank Otero MDToxic Tricyclic Sc,BlNegativeNormalNEGOhiohealth Dublin Methodist HospitalComment on above:Performed By: #### ATRAZO #### [facility] [address] [place] [address] [phone] First Assistant: Kodak Akbar MD #### CMPX, EDTOX, LIP, CDP #### [facility] [address] [place] [address] First Assistant: CICI Modi CHEST PORTABLEon [id number] CHEST PORTABLE EXAMINATION: ONE XRAY VIEW OF THE CHEST 07/30/2020 2:21 pm COMPARISON: None. HISTORY: ORDERING SYSTEM PROVIDED HISTORY: durg overdose TECHNOLOGIST PROVIDED HISTORY: durg overdose FINDINGS: Cardiac silhouette is enlarged. Lungs appear clear. No acute abnormality. IMPRESSION: No acute findings Interpreted by: Myranda Al MD Signed by: Myranda Al MD 07/30/20 Final resultNormalMerJohn C. Fremont HospitalACETAMINOPHENon 02-26-2020 Acetaminophen [Mass/Vol]< 5.4Yxzolu2.0-20.0SaUT Health East Texas Carthage HospitalComment on above:Performed By: #### CBCWD, BMP, ACTM, ASAT, ETOHS, ANION, OSMOL, TSH3 #### [facility] [address] [place], [place] [address]YAJHN GAPon 81-60-0339Lgphn gap [Moles/Vol]11.0 mmol/LNormal 8.0-16.0L[facility] Granbury Medical CenterComment on above:Result Comment: ANION GAP = Sodium -(Chloride + CO2)Performed By: #### CBCWD, BMP, ACTM, ASAT, ETOHS, ANION, OSMOL, TSH3 #### [facility] [address] [place] [address]Vmohxmwppgrgw levelon 14-44-7950Cnlwfxjzmfdds [Mass/Vol]< 5.00 - 20 ug/mLKettering Health [place], KYComment on above:Performed at [facility] [address] [place] [address]Adeas Gapon 64-64-8989Vrjvp gap [Moles/Vol]11.0 mmol/L8 - 16 meq/LMSt. Mary's Medical Center, KYComment on above:ANION GAP = Sodium - (Chloride + CO2) Performed at [facility] [address] [place] [address] BASIC METABOL PANELon 63-12-7367Bldorhy [Mass/Vol]9.5 mg/dLNormal8.5-10.5SNortheast Baptist HospitalComment on above:Performed By: #### CBCWD, BMP, ACTM, ASAT, ETOHS, ANION, OSMOL, TSH3 #### [facility] [address] [address]Whqjaxuh [Moles/Vol]100 mmol/RSstvje91-045CbyofLake Granbury Medical CenterComment on above:Performed By: #### CBCWD, BMP, ACTM, ASAT, ETOHS, ANION, OSMOL, TSH3 #### [facility] [address] [place] [address]YV3 [Moles/Vol]26 mmol/DFzyywj19-77UskuhLake Granbury Medical Center Comment on above:Performed By: #### CBCWD, BMP, ACTM, ASAT, ETOHS, ANION, OSMOL, TSH3 #### [facility] [address] [place] [address]Sdvcorsmby [Mass/Vol]0.8 mg/dLNormal0.4-1.2SNortheast Baptist HospitalComment on above:Performed By: #### CBCWD, BMP, ACTM, ASAT, ETOHS, ANION, OSMOL, TSH3 #### [address] [address]Zmrcmcf [Mass/Vol]164 mg/lQXqxy97-571GjznhLake Granbury Medical Center Comment on above:Performed By: #### CBCWD, BMP, ACTM, ASAT, ETOHS, ANION, OSMOL, TSH3 #### [address] [address]Jhnkbbapq [Moles/Vol]5.0 mmol/LNormal3.5-5.2SNortheast Baptist HospitalComment on above:Result Comment: Very slight hemolysis indicated.Performed By: #### CBCWD, BMP, ACTM, ASAT, ETOHS, ANION, OSMOL, TSH3 #### [address] [address]Eqihfo [Moles/Vol]137 mmol/BUtjqek689-390NhhnkLake Granbury Medical CenterComment on above:Performed By: #### CBCWD, BMP, ACTM, ASAT, ETOHS, ANION, OSMOL, TSH3 #### [facility] [address] [place] [address]Exdf nitrogen [Mass/Vol]17 mg/dLNormal7-22L[facility]bury Medical CenterComment on above:Performed By: #### CBCWD, BMP, ACTM, ASAT, ETOHS, ANION, OSMOL, TSH3 #### [address] [address]Ohbqb Metabolic Panelon 34-82-5587Fdqmtya [Mass/Vol]9.5 mg/dL8.5 - 10.5 mg/dLK[facility]tering Health [place], KYComment on above:Performed at [facility] [address] [place] [address]Yrofpicg [Moles/Vol]100 mmol/L98 - 111 meq/L [facility], KYCO2 [Moles/Vol]26 mmol/L23 - 33 meq/LMSt. Mary's Medical Center, [place] Creatinine [Mass/Vol]0.8 mg/dL0.4 - 1.2 mg/dLK[facility]tering Health [facility], KYGlucose [Mass/Vol]164 mg/pOCoda96 - 108 mg/dLK[facility]tering Health [facility], KYPotassium [Moles/Vol] 5.0 mmol/L3.5 - 5.2 meq/[facility], KYComment on above:Very slight hemolysis indicated.Sodium [Moles/Vol]137 mmol/L135 - 145 meq/[facility], KYUrea nitrogen [Mass/Vol]17 mg/dL7 - 22 mg/dLK[facility]tering Health [facility], KYCALCULATED OSMOLALITYon 19-03-9534Fgvjulkpuu [Osmolality]279.0 mOsmol/ibDlvtzh285.0-300. [facility] Medical CenterComment on above:Performed By: #### CBCWD, BMP, ACTM, ASAT, ETOHS, ANION, OSMOL, TSH3 #### [address] [address]TIT WITH DIFFERENTIALon 54-65-3028FGL IMMATURE GRANS (IG)0.09 thou/ed7Tild7.00-0.07L[facility]bury Medical CenterComment on above:Performed By: #### CBCWD, BMP, ACTM, ASAT, ETOHS, ANION, OSMOL, TSH3 #### [address] [address]WCE NEUTROPHILS5.8 thou/tp7Gvvork0.8-7.7Lake Granbury Medical CenterComment on above:Performed By: #### CBCWD, BMP, ACTM, ASAT, ETOHS, ANION, OSMOL, TSH3 #### [facility] [address] [place] [address]Tascbrixq (Bld) [#/Vol]0.1 thou/fg6Dnijcl2.0-0.1SNortheast Baptist HospitalComment on above:Performed By: #### CBCWD, BMP, ACTM, ASAT, ETOHS, ANION, OSMOL, TSH3 #### [address] [address]Zxlqupnio/100 WBC (Bld)0.7 %NormalLake Granbury Medical Center Comment on above:Performed By: #### CBCWD, BMP, ACTM, ASAT, ETOHS, ANION, OSMOL, TSH3 #### [address] [address]Hyuxkupojun (Bld) [#/Vol]0.1 thou/pf5Yrgtnu6.0-0.4SNortheast Baptist HospitalComment on above:Performed By: #### CBCWD, BMP, ACTM, ASAT, ETOHS, ANION, OSMOL, TSH3 #### [address] [address]Ojfosvpxrnf/100 WBC (Bld)1.1 %[facility] Comment on above:Performed By: #### CBCWD, BMP, ACTM, ASAT, ETOHS, ANION, OSMOL, TSH3 #### [address] [address]Mxxygtnkgce distribution width (RBC) [Ratio]12.5 %Ehggfq73.5-14.5 [facility] Medical CenterComment on above:Performed By: #### CBCWD, BMP, ACTM, ASAT, ETOHS, ANION, OSMOL, TSH3 #### [address] [address]Pmqpvovvla (Bld) [Volume fraction]51.3 %Craipd49.0-52.0L[facility] Medical CenterComment on above:Performed By: #### CBCWD, BMP, ACTM, ASAT, ETOHS, ANION, OSMOL, TSH3 #### [address] [address]Uzbqqfhgog (Bld) [Mass/Vol]18.5 gm/udQmgf79.0-18.0L[facility] Medical CenterComment on above:Performed By: #### CBCWD, BMP, ACTM, ASAT, ETOHS, ANION, OSMOL, TSH3 #### [address] [address]AKXYZJYY GRANS (IG)1.0 %[facility] HospitalComment on above:Performed By: #### CBCWD, BMP, ACTM, ASAT, ETOHS, ANION, OSMOL, TSH3 #### [address] [address]Afegzoqmqpf (Bld) [#/Vol]2.6 thou/ee6Nxfnpe6.0-4.8L[facility] Medical CenterComment on above:Performed By: #### CBCWD, BMP, ACTM, ASAT, ETOHS, ANION, OSMOL, TSH3 #### [address] [address]Rpysoehhqwk/100 WBC (Bld)29.1 %[facility] Comment on above:Performed By: #### CBCWD, BMP, ACTM, ASAT, ETOHS, ANION, OSMOL, TSH3 #### [address] [address]JOC (RBC) [Entitic mass]32.2 dwHhutiz68.0-33.0L[facility] Medical CenterComment on above:Performed By: #### CBCWD, BMP, ACTM, ASAT, ETOHS, ANION, OSMOL, TSH3 #### [address] [address]ZAYJ (RBC) [Mass/Vol]36.1 gm/gkRmzt24.2-35.5SNortheast Baptist HospitalComment on above:Performed By: #### CBCWD, BMP, ACTM, ASAT, ETOHS, ANION, OSMOL, TSH3 #### [address] [address]KJY (RBC) [Entitic vol]89.4 dDGfmjnk47.0-94.0L[facility] Medical CenterComment on above:Performed By: #### CBCWD, BMP, ACTM, ASAT, ETOHS, ANION, OSMOL, TSH3 #### [address] [address]Rhinjkowl (Bld) [#/Vol]0.4 thou/ks0Kydijs5.4-1.3SNortheast Baptist HospitalComment on above:Performed By: #### CBCWD, BMP, ACTM, ASAT, ETOHS, ANION, OSMOL, TSH3 #### [address] [address]Pizpabvbr/100 WBC (Bld)4.9 %[facility] Comment on above:Performed By: #### CBCWD, BMP, ACTM, ASAT, ETOHS, ANION, OSMOL, TSH3 #### [address] [address]Qbcrrrkpajn/100 WBC (Bld)63.2 %[facility] Comment on above:Performed By: #### CBCWD, BMP, ACTM, ASAT, ETOHS, ANION, OSMOL, TSH3 #### [address] [address]Rqnhetjax RBC/100 WBC (Bld) [Ratio]0 /100 wbcNormalSNortheast Baptist HospitalComment on above:Performed By: #### CBCWD, BMP, ACTM, ASAT, ETOHS, ANION, OSMOL, TSH3 #### [address] [address]Fkbbjauj mean volume (Bld) [Entitic vol]9.8 fLNormal9.4-12.4SNortheast Baptist HospitalComment on above:Performed By: #### CBCWD, BMP, ACTM, ASAT, ETOHS, ANION, OSMOL, TSH3 #### [address] [address]Gkthbeojw (Bld) [#/Vol]240 thou/us7Lompcp789-351QuosbLake Granbury Medical CenterComment on above:Performed By: #### CBCWD, BMP, ACTM, ASAT, ETOHS, ANION, OSMOL, TSH3 #### [address] [address]JWH (Bld) [#/Vol]5.74 mill/vl3Kmtbft8.70-6.10L[facility] Medical CenterComment on above:Performed By: #### CBCWD, BMP, ACTM, ASAT, ETOHS, ANION, OSMOL, TSH3 #### [address] [address]QVN-XC33.7 yVMvtilt67.0-45.0L[facility] Medical CenterComment on above:Performed By: #### CBCWD, BMP, ACTM, ASAT, ETOHS, ANION, OSMOL, TSH3 #### [facility] [address] [place], [place] [address]PRO (Bld) [#/Vol]9.1 thou/nz6Qxwmnz2.8-10.8L[facility] Medical CenterComment on above:Performed By: #### CBCWD, BMP, ACTM, ASAT, ETOHS, ANION, OSMOL, TSH3 #### [facility] [address] [place], [place] [address]QWX auto differentialon 31-34-3527Mblfmqyku (Bld) [#/Vol]0.1 10*3/[facility]- [place], KYBasophils/100 WBC (Bld)0.7 %[facility]- [place], [place] Eosinophils (Bld) [#/Vol]0.1 10*3/uLSalem Regional Medical Center [facility]- [place], KYEosinophils/100 WBC (Bld)1.1 %[facility]- [place], KYErythrocyte distribution width (RBC) [Ratio]12.5 % 11.5 - 14.5 %[facility]- [place], KYHematocrit (Bld) [Volume fraction]51.3 %42 - 52 %[facility]- [place], KYHemoglobin (Bld) [Mass/Vol]18.5 g/dLHighCleveland Clinic [facility]- [place], KYImmature Grans (Abs)0.09HighCleveland Clinic [facility]- [place], KYImmature granulocytes (Bld) [#/Vol]1 %[facility]- [place], KYInterpretation and review of laboratory results AbnormalCleveland Clinic [facility]- [place], KYLymphocytes (Bld) [#/Vol]2.6 10*3/uLSalem Regional Medical [facility]- [place], KYLymphocytes/100 WBC (Bld)29.1 %[facility]- [place], KYMCH (RBC) [Entitic mass]32.2 pg26 - 33 pgSalem Regional Medical Center Health- [place], KYMCHC (RBC) [Mass/Vol]36.1 g/dLHigh [facility]- [place], KYMCV (RBC) [Entitic vol]89.4 fL80 - 94 fLSalem Regional Medical Center Health- [place], [place] Monocytes (Bld) [#/Vol]0.4 10*3/[facility], KYMonocytes/100 WBC (Bld)4.9 %[facility], KYNucleated RBC/100 WBC (Bld) [Ratio]0 %/100 wbcKettering Health [place], KYComment on above:Performed at [facility] [address] [place], [place] [address]Xgowxgso mean volume (Bld) [Entitic vol]9.8 fL9.4 - 12.4 fL [facility], KYPlatelets (Bld) [#/Vol]240 10*3/[facility], KYRBC (Bld) [#/Vol]5.74 10*6/[facility], KYRDW-SD40.7 fL35 - 45 fLKettering Health [facility], KYSegmented neutrophils/100 WBC (Bld)63.2 %[facility], KYSegs Absolute5.8[facility], KYWBC (Bld) [#/Vol]9.1 10*3/[facility], [place] DRUG ABUSE SCREENon 96-16-1823EPJDGSTCFKB/METHAMPHNegativeNormalNEGATIVESaint Madison Memorial HospitalComment on above:Performed By: #### UR_CS #### [facility] [address] [place] [address] 46848FQUFWFBNGRFPtykbbkeBzeoweBKIHFZUBRcrud [facility] Comment on above:Performed By: #### UR_CS #### [facility] [address] [place] [address] 88318Sdvfqsvfkjgmihm Ql (U)NegativeNormalNEGATIVESaint Madison Memorial HospitalComment on above:Performed By: #### UR_CS #### [facility] [address] [place] [address] 89[address]Sfaovmhnspju Screen Ql (U)NegativeNormalNEGATIVESaint Madison Memorial HospitalComment on above:Performed By: #### UR_CS #### [facility] [address] [place] [address] 78478FKVLDWX METABOLITENegativeNormalNEGATIVESaint Madison Memorial HospitalComment on above:Performed By: #### UR_CS #### [facility] [address] [place] [address] 11750Zpekmut Ql (U)NegativeNormalNEGATIVESaint [facility] Memorial Hospital Comment on above:Performed By: #### UR_CS #### [address] [address]KVXDGOTUSIvzgyrblDvfxppGGGQAUZKFjhsz Rita's Medical CenterComment on above:Performed By: #### UR_CS #### [facility] [address] [place] [address] 257[address]Wlqnmjehedhwf Ql (U)NegativeNormalNEGATIVESNortheast Baptist HospitalComment on above:Result Comment: A Negative result for [...] medical use only.Performed By: #### UR_CS #### [address] [address]SCTJR ALCOHOL BLOODon 57-77-6968YCCPV ALCOHOL BLOOD< 0.01Normal 0.00Saint Madison Memorial HospitalComment on above:Performed By: #### CBCWD, BMP, ACTM, ASAT, ETOHS, ANION, OSMOL, TSH3 #### [facility] [address] [place] [address] 06[address]Zogwvbfkx 13-80-7001PHIXK ALCOHOL, SERUM< 0.010.00 %[facility], KYComment on above:Performed at [facility] [address] [place] [address] 668[address]Kjsetcflomrn 50-75-7555Zwdhfcasyk Hjkx610.0[facility], [place] Comment on above:Performed at [facility] [address] [place] [address] 38[address]Qbkreco 14-32-4493Lyxcwcnkpshmdy and review of laboratory resultsAbnormal [facility], KYSALICYLATEon 44-02-6437NCZAHKBBUZ< 0.3Low2.0-10.0SaUT Health East Texas Carthage HospitalComment on above:Performed By: #### CBCWD, BMP, ACTM, ASAT, ETOHS, ANION, OSMOL, TSH3 #### [facility] [address] [place] [address] 938[address]Ayikktidqu Levelon 41-51-1018Kpecnlfgtl, Serum< 0.3Low2 - 10 mg/dL [place], KYComment on above:Performed at [facility] [address] [place] [address] 13939IJY THIRD GENERATIONon 29-46-8046JSL THIRD GENERATION 5.000 uIU/mLHigh0.400-4.20SNortheast Baptist HospitalComment on above:Performed By: #### CBCWD, BMP, ACTM, ASAT, ETOHS, ANION, OSMOL, TSH3 #### [facility] [address] [address]KEH without Reflexon [id number] and review of laboratory resultsUF Health Flag[facility] Hospital Qn5.000 m[IU]/[place], KYComment on above:Performed at [facility] [address] [place] [address] 09061ORMWA REFLEX C + Son 75-98-6313Huwssxcrq Ql (U)NegativeNormal NEGATIVESNortheast Baptist HospitalComment on above:Performed By: #### UR_CS #### [facility] [address] [address]WHFWQSgpvuhvcVnozmhPRTWNMTCMubob Rita's Medical CenterComment on above:Performed By: #### UR_CS #### [facility] [address] [place] [address] 489[address]Dwdqhamkl (U)CLEARNormalCLEAR-SL CSaUT Health [facility] Hospital Comment on above:Performed By: #### UR_CS #### [facility] [address] [place] [address] 50087Bneul (U)YELLOWNormalSTRAW-YELLSaUT Health East Texas Carthage HospitalComment on above:Performed By: #### UR_CS #### [facility] [address] [place] [address] 57[address]Sqemwcd [Mass/Vol]NegativeNormalNEGATIVESNortheast Baptist HospitalComment on above:Performed By: #### UR_CS #### [facility] [address] [place] [address] 91591Whjkdfz Ql (U)NegativeNormalNEGATIVESNortheast Baptist Hospital Comment on above:Performed By: #### UR_CS #### [facility] [address] [place] [address] 880[address]Bavbxzr Ql (U)NegativeNormalNEGATIVESNortheast Baptist Hospital Comment on above:Performed By: #### UR_CS #### [facility] [address] [place] [address] 14882vX (Bld)5.6Desres6.0 - 9.0L[facility] Medical CenterComment on above:Performed By: #### UR_CS #### [address] [address]Eeqavlw (U) [Mass/Vol]NegativeNormalNEGATIVESNortheast Baptist HospitalComment on above:Performed By: #### UR_CS #### [address] [address]Gxoeqiez gravity (U) [Rel density]1.230Sxuwbh9.002-1.03L[facility] Medical CenterComment on above:Performed By: #### UR_CS #### [address] [address]Byezfjvrelox Qn (U)1.0 eu/dlNormal0.0 - 1.0L[facility] Medical CenterComment on above:Performed By: #### UR_CS #### [address] [address]VGJ (Bld) [#/Vol]NegativeNormalNEGATIVESNortheast Baptist Hospital Comment on above:Performed By: #### UR_CS #### [address] [address]Lsurnbauxm Reflex to Cultureon [id number] UrineNegative NEGATIVEMercy Health- [place], KYBlood, UrineNegativeNEGATIVEMercy Health- [place], [place] Character, UrineCLEARCLEAR-SL CMercy Health- [place], KYComment on above:Performed at [facility] [address] [place], [place] [address]Tbhlp, UAYELLOWSTRAW-YELL [facility]- [place], KYGlucose, UrNegativeNEGATIVE mg/dlMercy Health- [place], KYKetones Ql (U)NegativeNEGATIVEMercy Health- [place], KYLeukocyte esterase Test strip Ql (U) NegativeNEGATIVEMercy Health- [place], KYNitrite, UrineNegativeNEGATIVEMercy Health- [place], KYpH, UA5.5[facility]- [place], KYProtein (U) [Mass/Vol]NegativeNEGATIVEMercy Health- [place], KYSpecific [place], Urine1.026[facility]- [place], KYUrobilinogen, Urine1.0[facility]- [place], KYUrine Drug Screenon 02-26-2020 AMPHETAMINE+METHAMPHETAMINE URINE SCREENNegativeNEGATIVEMerLegacy Health- [place], [place] Barbiturate Quant, UrNegativeNEGATIVEMercy Health- [place], [...] are for medical use only. Performed at [facility] [address] [place] [id number] Otheron 25-87-1677Ycgdouhsewhd left knee This report has been created using voice recognition software. It may contain minor errors which are inherent in voice recognition technology. Final report electronically signed by Dr. Alexander Vega on 02/15/2020 2:22 PMK[facility] [place], KYPROCEDURE: XR KNEE LEFT (3 VIEWS) CLINICAL INFORMATION: Left knee pain, unspecified chronicity . COMPARISON: No prior study. TECHNIQUE: Standing AP and lateral projections a sunrise patella projection. FINDINGS: No acute fracture or dislocation. Joint space is maintained. No joint effusion. No softtissue normality.[facility] [place], KYEdi, Wcoh Incoming Radiant Results From [employer] - 02/15/2020 2:24 PM EDT PROCEDURE: XR [...] by Dr. Alexander Vega on 02/15/2020 2:22 [facility], KYXR KNEE LEFT (3 VIEWS)on 68-00-9100ZP KNEE LEFT (3 VIEWS) PROCEDURE: XR KNEE [...] Signed by: Alexander Vega MD 02/15/20 Final resultNormalSNortheast Baptist Hospital Vital Signs Date TimeVital SignValuePerforming CojpxwxfvCjdvucsy82-35-3848 07:30-0400Body bdbphsuualr98.6 [degF]PHYSICIAN NO [facility] 04-05-2025 07:30-0400Diastolic blood rfzxwxor53 mm[Hg]PHYSICIAN NO [facility]06-11-2025 07:30-0400Heart rate83 /minPHYSICIAN [facility]06-11-2025 07:30-0400Respiratory rate 20 /minPHYSICIAN NO [facility]06-11-2025 07:30-0400 SaO2% (BldA) [Mass fraction]98 %PHYSICIAN NO [facility]06-11-2025 07:30-0400Systolic blood mm[Hg]PHYSICIAN NO [facility]06-09-2025 14:38-0400Body gvyzak117.72 cm PHYSICIAN NO [facility]06-09-2025 09:00-0400Body zerree597 kgPHYSICIAN NO [facility]06-06-2025 22:18-0400Body cfhgaszggan16.4 [degF]Demetria Cifuentes CASH MANAGER Work Phone: 1(032)[address]06-06-2025 22:18-0400 Diastolic blood gohdwzkm19 mm[Hg]Demetria Cifeuntes CASH MANAGER Work Phone: 1(984)[address]06-06-2025 22:18-0400 Heart gyuq847 /Toni Caseacher CASH MANAGER Work Phone: [phone])303[facility]47[facility]06-06-2025 22:18-0400 Respiratory rate16 /Toni Caseacher CASH MANAGER Work Phone: 1(336)534-36[facility]06-06-2025 22:18-0400 SaO2% (BldA) [Mass fraction]97 %Demetria Cifuentes CASH MANAGER Work Phone: [phone](487)717-55[facility]06-06-2025 22:18-0400 Systolic blood flftwoss978 mm[Hg]Demetria Cifuentes CASH MANAGER Work Phone: 1(366)883-[address] [place], [place] 4702506-06-2025 13:28-0400 Body uccmgo328.72 cmDemetria Cifuentes CASH MANAGER Work Phone: 1(495)405-[address] [place], [place] 4702506-06-2025 13:28-0400 Body .27 kgDemetria Orlandor CASH MANAGER Work Phone: 1(079)[address] [place], [place] 1794604-25-2025 21:06-0400 Body ypmkxg614.72 cmDemetria Caseacher CASH MANAGER Work Phone: 1(742)[address] [place], [place] 1794604-25-2025 21:06-0400 Body ylmgvgmuliw27.6 [degF]Demetria Gunterfranciaacher CASH MANAGER Work Phone: 1(159)[address] [place], [place] 1794604-25-2025 21:06-0400 Body fiqadc930.1 kgDemetria Caseacher CASH MANAGER Work Phone: 1(290)[address] [place], [place] 1794604-25-2025 21:06-0400 Diastolic blood fumeljpi24 mm[Hg]Demetria Guntermesfinr CASH MANAGER Work Phone: 1(806)[address] [place], [place] 1794604-25-2025 21:06-0400 Heart rate90 /Toni Caseacher CASH MANAGER Work Phone: 1(592)[address] [place], [place] 1794604-25-2025 21:06-0400 Respiratory rate16 /Toni Caseacher CASH MANAGER Work Phone: 1(297)[address] [place], [place] 1794604-25-2025 21:06-0400 SaO2% (BldA) [Mass fraction]98 %Demetria Gunterabelino CASH MANAGER Work Phone: 1(191)[address] [place], [place] 1794604-25-2025 21:06-0400 Systolic blood onumaqwc245 mm[Hg]Demetria Esau CASH MANAGER Work Phone: 1(351)[address] [place], [place] 1794603-17-2025 08:24-0400 Body .45 kgDemetria Caseacher CASH MANAGER Work Phone: 1(347)[address] [place], [place] 1794603-17-2025 07:30-0400 Body ctllrtfigbg86.3 [degF]Demetria Gunterfranciaacher CASH MANAGER Work Phone: 1(354)[address] [place], [place] 1794603-17-2025 07:30-0400 Diastolic blood oruvrlmf70 mm[Hg]Demetria Gunterabelino CASH MANAGER Work Phone: [facility]03-17-2025 07:30-0400 Heart rate77 /Toni Cifuentes CASH MANAGER Work Phone: 1([phone]03-17-2025 07:30-0400 Respiratory rate16 /Toni Cifuentes CASH MANAGER Work Phone: 1([phone]03-17-2025 07:30-0400 SaO2% (BldA) [Mass fraction]99 %Demetria Esau CASH MANAGER Work Phone: [phone]03-17-2025 07:30-0400 Systolic blood kiepezti212 mm[Hg]Demetria Gunterabelino CASH MANAGER Work Phone: 1([phone]03-14-2025 16:04-0400 Body oyzlmt580.72 cmDemetria Cifuentes CASH MANAGER Work Phone: 1(799)527-61[facility]03-13-2025 17:17-0400 Diastolic blood htxhkhny28 mm[Hg]PHYSICIAN NO [facility]03-13-2025 17:17-0400Heart bdyi752 /minPHYSICIAN [facility]03-13-2025 17:17-0400Respiratory rate16 /minPHYSICIAN [facility]03-13-2025 17:17-5795MrF6% (BldA) [Mass fraction]96 %PHYSICIAN [facility]03-13-2025 17:17-0400Systolic blood swehbvlr684 mm[Hg]PHYSICIAN [facility]03-13-2025 12:29-0400Body aymghe842.72 cmPHYSICIAN [facility]03-13-2025 12:29-0400Body rzazkouizhx90.4 [degF]PHYSICIAN [facility]03-13-2025 12:29-0400 Body qpnzuo241 kgPHYSICIAN [facility]10-10-2024 07:30-0400Body fkcgmmpifsr94.8 [degF]HAILEE Gunterrbacher Work Phone: 1(300)034-[address] [place], [place] 4702510-10-2024 07:30-0400 Diastolic blood tqacqmpr04 mm[Hg]CASH MANAGEREllen MarcosDemetria Janirbacher Work Phone: 1(993)[address]10-10-2024 07:30-0400 Heart rate89 /minAPREllen MarcosDemetria Janirbacher Work Phone: 1(674)[address]10-10-2024 07:30-0400 Respiratory rate20 /minAPREllen Gunterrbacher Work Phone: 1(737)[address] [place], [place] 1794610-10-2024 07:30-0400 SaO2% (BldA) [Mass fraction]99 %CASH MANAGEREllen Gunterrbacher Work Phone: 1(013)555-[address] [place], [place] 4702510-10-2024 07:30-0400 Systolic blood yerhzcnk745 mm[Hg]HAILEE Gunterrbacher Work Phone: 1(512)[address] [place], [place] 1794610-08-2024 15:22-0400 Body besvjx610.72 cmAPREllen MarcosDemetria Janirbacher Work Phone: 1(864)[address] [place], [place] 1794610-07-2024 11:25-0400 Body faoedi111.59 kgAPREllen Gunterrbacher Work Phone: 1(031)192-[address] [place], [place] 4702510-07-2024 10:00-0400 Diastolic blood novolria37 mm[Hg]HAILEE Gunterrbacher Work Phone: 1(640)903-[address] [place], [place] 4702510-07-2024 10:00-0400 Heart rate75 /minAPREllen Gunterrbacher Work Phone: 1(134)309-[address] [place], [place] 4702510-07-2024 10:00-0400 Respiratory rate16 /minAPREllen Gunterrbacher Work Phone: 1(317)633-[address] [place], [place] 4702510-07-2024 10:00-0400 SaO2% (BldA) [Mass fraction]97 %HAILEE Cifuentes Work Phone: [facility]10-07-2024 10:00-0400 Systolic blood hddaqkrd867 mm[Hg]HAILEE Marcosfer Esau Work Phone: [facility]10-07-2024 03:09-0400 Body kyhxvg276.72 cmAPREllen CrumpDemetria Esau Work Phone: [facility]10-07-2024 03:09-0400 Body inenhcldbsm28.8 [degF]HAILEE Cifuentes Work Phone: [facility]10-07-2024 03:09-0400 Body eruvwk270.35 kgAPREllen Cifuentes Work Phone: [facility]10-02-2024 16:00-0400 Body .72 cmSt[facility]10-02-2024 16:00-0400Body mass index (BMI) [Ratio]35.4 kg/d1UsyvtrjkySt. Charles Hospital10-02-2024 16:00-0400Body oittsholeuk30.6 [degF][facility]10-02-2024 16:00-0400Body kgnato629.68 kgSt. [facility] Hospital10-02-2024 16:00-0400Diastolic blood ctojgjwi14 mm[Hg][facility] 07-27-2024 16:00-0400Heart rate76 /minSt. Charles Hospital 07-27-2024 16:00-4023BiL5% (BldA) [Mass fraction]96 %[facility]10-02-2024 16:00-0400Systolic blood epcsnmsn520 mm[Hg][facility]09-04-2024 10:41-0400Body jpiyhx174.72 cmSt. [facility] Hospital09-04-2024 10:41-0400Body mass index (BMI) [Ratio]35.4 kg/m2 [facility]09-04-2024 10:41-0400Body poerpi391.[address] [facility]09-04-2024 10:41-0400Diastolic blood qtnxitoz40 mm[Hg][facility]09-04-2024 10:41-0400Heart bdeo313 /min [facility]09-04-2024 10:41-0400Respiratory rate12 /min [facility]09-04-2024 10:41-0400Systolic blood mfrseavs002 mm[Hg][facility]07-01-2024 11:19-0400Blood Pressure LocationPatricopal PATEL [facility]07-01-2024 11:19-0400Body wiseygxvdtk53.6 [degF]Joel PATEL [facility]07-01-2024 11:19-0400Diastolic blood elghqmgb34 mm[Hg]Joel PATEL [facility]07-01-2024 11:19-0400Heart rate95 /minPatrick JORGE [facility]07-01-2024 11:19-0400Respiratory rate16 /minPatrick JORGE [facility]07-01-2024 11:19-0400Systolic blood mm[Hg]Joel PATEL [facility]05-09-2024 12:58-0400Body mosbbt205.72 cmSt[facility]05-09-2024 12:58-0400Body mass index (BMI) [Ratio]37.5 kg/r0TmzqatcpqSt. [facility] Hospital05-09-2024 12:58-0400Body vlkxfo518.03 kgSt. [facility]05-09-2024 12:58-0400Diastolic blood qcdjwyhs08 mm[Hg] [facility]05-09-2024 12:58-0400Heart xbwg100 /min [facility]05-09-2024 12:58-8826YzU2% (BldA) [Mass fraction]98 %[facility]05-09-2024 12:58-0400Systolic blood wpyjcgki882 mm[Hg][facility]04-22-2024 10:57-0400 Body xcawhp331.72 cmSt. [facility] Hospital04-22-2024 10:57-0400Body mass index (BMI) [Ratio]37.8 kg/v1YflocahkbSt. Charles Hospital04-22-2024 10:57-0400Body .94 kgSt. [facility] Hospital04-22-2024 10:57-0400Diastolic blood bibooyag12 mm[Hg][facility] 02-15-2024 10:57-0400Heart rate95 /minSt. [facility] Hospital 02-15-2024 10:57-5555BgQ3% (BldA) [Mass fraction]98 %[facility]04-22-2024 10:57-0400Systolic blood oxesvpya524 mm[Hg][facility]02-16-2024 13:06-0500Body .72 cmSt. [facility] Hospital02-16-2024 13:06-0500Body mass index (BMI) [Ratio]37.2 kg/m2 [facility]02-16-2024 13:06-0500Body deqrbrlfysl38.7 [degF][facility]02-16-2024 13:06-0500Body ejcmhu404.[address] [facility]02-16-2024 13:06-0500Diastolic blood cahlykvy21 mm[Hg][facility]02-16-2024 13:06-0500Heart atcw138 /min [facility]02-16-2024 13:06-0500Respiratory rate18 /min [facility]02-16-2024 13:06-6056HuS6% (BldA) [Mass fraction]96 %[facility]02-16-2024 13:06-0500Systolic blood mm[Hg][facility]02-09-2024 08:30-0500 Body adalhz556.72 cmDemetria Cifuentes Other [employer] Other 02-09-2024 08:30-0500Body mass index (BMI) [Ratio] 39.38 kg/q6RzmvnccfDemetria Gunterabelino Other [employer] Other 02-09-2024 08:30-0500Body nhaaos888.48 kgDemetria Gunterfranciaopal Other [employer] Other 02-09-2024 08:30-0500Diastolic blood tnpewhbd55 mm[Hg] Demetria Esau Other [employer] Other 02-09-2024 08:30-2933VpR5% (BldA) [Mass fraction]98 % Demetria Esau Other [employer] Other 02-09-2024 08:30-0500Systolic blood zhjosnvt201 mm[Hg] Demetria Esau Other [employer] Other 12-22-2023 17:30-0500Body rpzmlo933.[address] [facility]12-22-2023 17:30-0500 Body mass index (BMI) [Ratio]42.57 kg/e7Bbtyej Dymond Other [employer] Other 12-22-2023 17:30-0500Body wrtgjgntyez88.4 [degF]Lynn Olivas Other [employer] Other 12-22-2023 17:30-0500Body fayyax922.01 kgPasue Olivas Other [employer] Other 12-22-2023 17:30-0500Body pbwnge199 [facility]12-22-2023 17:30-0500Diastolic blood uylpvejz44 mm[Hg] Lynn Deisy Other [facility]12-22-2023 17:30-0500 Respiratory rate18 /minLynn Deisy Other [employer] Other 12-22-2023 17:30-8356QgS5% (BldA) [Mass fraction]97 % Lynn Deisy Other [employer] Other 12-22-2023 17:30-0500Systolic blood hdwcpsut548 mm[Hg] Lynn Deisy Other [facility]12-05-2022 19:40-0500 Body vdhcma914.72 cmPamelricarda Olivas Other [employer] Other 12-05-2022 19:40-0500Body mass index (BMI) [Ratio] 35.58 kg/k7Uxjrjt Deisy Other [employer] Other 12-05-2022 19:40-0500Body zlwtga007.14 kgPasue Deisy Other [employer] Other 12-05-2022 19:40-0500Diastolic blood tkepsyuj43 mm[Hg] Lynn Deisy Other [employer] Other 12-05-2022 19:40-0500Respiratory rate18 /minLynn Olivas Other [employer] Other 12-05-2022 19:40-4918FoH0% (BldA) [Mass fraction]98 % Lynn Olivas Other [employer] Other 12-05-2022 19:40-0500Systolic blood ejkttsdg234 mm[Hg] Lynn Olivas Other [employer] Other 10-11-2020 08:00-0400Body Bbiqitozzqa26.01 [degF][facility], ZG20-14-5501 08:00-0400BP Pyoarldqv38 mm[Hg][facility], QU45-91-1719 08:00-0400BP Muyzkgch997 mm[Hg][facility], GN98-91-7838 08:00-0400Pulse (Heart Rate)80 /min [facility], KJ79-93-8349 08:00-0400Respiratory Rate14 /minSChildren[facility] [place], EK08-15-6269 19:36-0400Pulse Vvzqswsb39 % [facility], LJ22-84-3559 23:05-0400BMI (Body Mass Index) 35.15 kg/l6HkqoaMunson Healthcare [facility], PK33-75-7777 23:05-0400Body weight 114.31 kgM[facility]son [facility], XB82-22-5580 23:05-0018Fikmos330.3 cmSChildren's Hospital of [place], TQ90-48-0178 19:54-0400Body Temperature 98.29 [degF][facility], IN01-39-7548 19:54-0400BP Diastolic 74 mm[Hg][facility], EH42-34-2445 19:54-0400BP Grrrtxwr566 mm[Hg][facility], XJ87-94-5170 19:54-0400Pulse (Heart Rate) 93 /minRavinod [facility], ZO43-84-0539 19:54-0400Pulse Apredrvh55 %[facility], FH70-56-3537 19:54-0400Respiratory Rate17 /min [facility], VA98-40-8809 05:15-0400BMI (Body Mass Index) 35.98 kg/p9VheitCone Health [facility], OA23-67-6814 05:15-0400Body weight 117.03 kgC[facility], CX36-61-3097 13:31-6334Xrjjek985.3 cm [facility], OM40-35-4204 07:46-0400Body Gpahcjmhlgz43.5 [degF][facility], IR10-45-2857 07:46-0400BP Ujliolfex82 mm[Hg][facility], BM52-93-0945 07:46-0400BP Vrnlbdrx885 mm[Hg][facility], KF85-24-9213 07:46-0400Pulse (Heart Rate)93 /[facility]zoChildren[facility] [place], AT54-48-7549 07:46-0400Pulse Ayfvvpag95 %[facility], HW09-07-5088 07:46-0400 Respiratory Rate18 /[facility]zoChildren[facility] [place], HT64-47-0093 00:33-0400BMI (Body Mass Index)39.28 kg/n5JqfrwMunson Healthcare [facility], 02-27-2020 00:33-0400Body wowwbb441.66 kgFito SalehAdena Health System, [place] 02-27-2020 00:334316Vczqtn831.3 Michelle [facility]hAdena [facility], [place] 02-14-2020 13:120400BMI (Body Mass Index)40.5 kg/h3Pjknnchacorta SalehM[facility]field Clinic [facility] Work Phone: 1(257) 13:12-0400Body mass index (BMI) [Percentile]99 {percentile}[facility]ito [facility]For[facility] Work Phone: 1(127) 13:12Body Lmjuwyyfhtk79.1 [degF]Fito [facility] Work Phone: 1(496) 13:12-0400Body .77 [facility] Work Phone: 1(248) 13:12-0400BP Memvxxndt83 mm[Hg][facility]ito [facility]elezForrest City [facility] Work Phone: 1(834) 13:12-0400BP Qlibkmws991 mm[Hg]Fito KaForrest City Medical Center Work Phone: 1(174) 13:12BSA (Body Surface Area)2.31 m2 [facility] Work Phone: 1(337) 13:129094Mymzra725.72 [facility] Work Phone: 1(321) 13:12-0Pain Level[address] [place] [address] Work Phone: 1(827) 13:120400Pulse (Heart Rate)84 /minSV[facility] Work Phone: 1(598) 13:12-0400Pulse Rnhcurjj16 %Fito [facility] Work Phone: 1(416) 107-132104-21-2020 13:12-0400Respiratory Rate16 /Florin [facility] Work Phone: Encounters Encounter DateEncounter TypeCare ProviderFacilityStart: 05-09-2025 End: 97-02-2454Rzpldzzwq department patient visitNO PCP NO PCPProMedica Coahoma HospitalStart: 78-58-7316ekpgvrxywnGafnnjm WATERSFacility: JailStart: 64-64-6623wqixgqfseiYPetar BARONJohn Muir [facility] HospitalStart: 42-21-6708Pym- patient / Non-visitPHYSICIAN NO [facility] Work Phone: Start: 03-31-2025 End: 29-49-9996Fbgklieiqj and management of inpatientJennifer Rohrbacher CASH MANAGER Work Phone: [facility]-[address] [place] [address] Work Phone: Start: 81-38-7331ubxgilzdpzKopcccxf Rohrbacher Facility:[facility] Systemtart: 34-57-3114Hkqhkcxoof Recurring PHYSICIAN NO [facility] Ctr- CredibleStart: 03-31-2025 End: 35-55-1636auemzwqelzUoeyvfjr Rohrbacher CASH MANAGER Work Phone: [facility] Work Phone: Start: 03-31-2025 End: 02-35-4751Homwdara ReferredJennifer Rohrbacher CASH MANAGER Work Phone: [facility] C[facility]-LAB Path Spec [facility]andana HospStart: 02-17-2025 End: 97-27-2362Xioyitldq department patient visitJennifer Rohrbacher CASH MANAGER Work Phone: [facility] C[facility]-Emergency Room Work Phone: Start: 88-35-4763Awu-patient / Non-visitJetony Caseacher CASH MANAGER Work Phone: [facility] Physician [facility] Work Phone: Start: 01-05-2025 End: 55-51-1904Erigjvocbt and management of inpatientPHYSICIAN NO [facility] C[facility]-[address] [place] [address] Work Phone: Start: 28-44-1092Xivlpwndty RecurringJetony Gunterrbacher CASH MANAGER Work Phone: [facility] Ctr- CredibleStart: 70-06-2752Toc-patient / Non-visitAPRN Demetria Cifuentes Work Phone: [facility] Phys[facility] Work Phone: Start: 08-01-2024 End: 06-42-3255Njmpxewkyr and management of inpatientAPRN Demetria Cifuentes Work Phone: [facility]-[address] [place] [address] Work Phone: Start: 07-27-2024 End: 14-40-8198dvzurqoyuuEyuagsfffMer[facility] Health [facility] Work Phone: Start: 07-27-2024 End: 32-54-3258Rcjhtdp encounter procedureC[facility] Health [facility] Work Phone: Start: 06-29-2024 End: 69-35-3073hcfiibygeqNimxnmmujMercy Health St[facility] Work Phone: Start: 06-29-2024 End: 85-88-2911Dxkbohi encounter procedureCone Health Women'[facility] Hospital Physician GroupJoint [facility] Work Phone: Start: 36-44-0382grbqflyqtzYpcrlyp R WATERSFacility:EU BellevueStart: 04-25-2024 End: 87-03-1651Fwh-admission assessmentPakay PATEL [facility] Start: 04-25-2024 End: 89-45-5721Cbhypus encounter procedureJoel Elisabeth PATEL [facility] start: 03-03-2024 End: 85-60-2678rxyhxhpxeiYmptyvbnxMercy Health [facility] Work Phone: Start: 03-03-2024 End: 40-98-8485Gyuejwe encounter procedureCone Health [facility] Work Phone: Start: 02-15-2024 End: 60-29-2143nbfgfcdezyOxfuiwqhiMercy Health St[facility] Work Phone: Start: 02-15-2024 End: 46-05-6135Bsfoqiw encounter procedureCone Health [facility] Work Phone: Start: 88-72-3506Tvf-patient / Non-visitFirchildren's hospital [facility] Work Phone: Start: 12-11-2023 End: 04-97-0900qsnhiiwfxnZundrjbrzMercy Health St[facility] Work Phone: Start: 12-11-2023 End: 68-73-3398Rqgzjdo encounter procedureCone Health [facility]ician [facility]gent [facility] Justin Work Phone: Start: 01-47-4167Ipv-patient / Non-visitCone Health Women'[facility] Hospital [facility] Work Phone: Start: 12-04-2023 End: 58-55-1877kkfuyxjgqpWdgpsvob Rohrbacher Other [place] [employer] [facility] Other Start: 61-17-9496Ukrsfi outpatient new 30 minutes Demetria JuddSelect Medical Specialty [facility]-Fairhilltart: 11-30-2023 End: 82-98-5639ozrmxosfdvNQZINSZJaney Graf AvailableStart: 10-29-2023 End: 63-16-8729subztrqzoaZVRIP L JAXWilfredo AvailableStart: 10-16-2023 End: 30-80-8252hcqkvmdwdqDvucyz Deisy Other [place] [employer] [facility] Other Start: 99-15-7722Dhwotx outpatient visit 15 minutes Lynn [facility] ClydeStart: 10-16-2023 End: 06-87-0918Odmunll encounter procedureCone Health Women'S Hospital [facility]ician [facility] Justin Work Phone: Start: 01-24-2023 End: 47-42-7574fvyvrxgqwnNugkazxblNewark Hospital Ctr Work Phone: Start: 01-24-2023 End: 05-73-0923Ztzxvxx encounter procedureL[facility]-Lab [place] Work Phone: Start: 01-23-2023 End: 43-22-4283xkppwluumkBhgktpgfrNewark Hospital Ctr Work Phone: Start: 01-23-2023 End: 06-52-9616Bkgosxsf ReferredPremier Health [facility] [place] Work Phone: Start: 01-22-2023 End: 93-92-7856Kvivmyhcwc and management of inpatientDR NONE LISTED REQUEST Facility:A1Xbilc: 01-22-2023 End: 07-73-9175qymzegfbceKfcmavnlcNewark Hospital Ctr Work Phone: Start: 01-22-2023 End: 05-46-7884Vldavsva ReferredLake County Memorial [facility]-Lab [place] Work Phone: Start: 09-29-2022 End: 61-99-1752Qknqihqd ReferredNP-C [facility]-Lab Main CampusStart: 09-29-2022 End: 10-06-2279xeecrzahqxDV-C Lynn [facility] Work Phone: Start: 46-48-6770Bpnoam outpatient new 20 minutes Lynn DymondFPG [facility]gent Care ClydeStart: 04-20-2022 End: 27-22-3959Sgbsaxoqwq and management of inpatientSCherrington Hospitaltart: 62-08-0811Xwghjag encounter procedureSdima Villalobos [facility] AdmittingStart: 07-30-2020 End: 19-23-7975Lrtafgfasf and management of inpatientSMercy Health Anderson Hospitaltart: 29-78-2067Ibsaevz encounter procedureSChildren[facility] [place], KYStart: 07-30-2020 End: 27-94-8451Cwcqncpatd and management of inpatientRavinod Hayes Work Phone: stvz 4C Onc/Med SurgComment on above:Suicide attempt by multiple drug overdose, initial encounter (HCC) (Primary Dx); Toxic metabolic encephalopathyStart: 02-27-2020 End: 71-65-3519Ksxkpec encounter procedureGalileo Mcmanus Work Phone: [facility] Work Phone: Start: 02-26-2020 End: 60-42-8225Jlzwvjzvly and management of inpatientSKADLEC [facility] MARIEHemphill County Hospitaltart: 11-20-3406Dfcfsli encounter procedureSRaleigh, KYStmeadow: 02-15-2020 End: 87-61-6463Uuozibk encounter procedureSKADLEC REGIONAL [facility]ICAL [facility] KEVYNNEW SUNRISE [facility]IONAL TREATMENT CENTERPAULBaylor [facility] CenterStart: 02-15-2020 End: 50-83-9164Zieficbudm hospital visit by physicianStr Xr Rm 1 Op [facility] RadiologyComment on above:Left knee pain, unspecified chronicityStart: 02-14-2020 End: 73-91-8877Kbqkjfrfioy patientJessnikkie Jose E Work Phone: [facility] Work Phone: Start: 02-14-2020 End: 12-74-0127uhddqoxrqfZnjku Lilia Work Phone: [facility] Work Phone: Procedures DateProcedureProcedure DetailPerforming ClinicianStart: 48-98-2270J-ray of lumbar spine, two or three viewsAPREllen Augustin Esau Work Phone: Start: 17-61-8956J-ray of thoracic spine, two views CASH MANAGEREllen Augustin Esau Work Phone: Start: 31-49-4546Mmktuml blood reagent stripBryan C Vinicio Work Phone: Start: 76-45-2442Wuuxrbl blood reagent stripBryan C Vinicio Work Phone: Start: 45-46-9819Qewtjdt blood reagent stripBryan C Vinicio Work Phone: Start: 55-06-5806Gzhuzsgiim glycosylated t3bHxfh Opal Barragan Work Phone: Start: 19-31-2897Qgribkm blood reagent stripBryan C Vinicio Work Phone: Start: 00-95-5091Xskndww blood reagent stripBryan C Vinicio Work Phone: Start: 30-85-4649HQLBHO STRIP REPORTHpf ScanningStart: 16-13-2863Hzseitb blood reagent stripBryan C Vinicio Work Phone: Start: 25-24-5977Dgbdodw blood reagent stripBryan C Vinicio Work Phone: Start: 08-95-4916AWTLS OXIMETRY, CONTINUOUSFITO AKERStart: 03-45-3140Qlxcypn blood reagent stripSDIMA AKERStart: 44-55-2082AXGFV-, ANTIBODY, TOTALSACHACORTA AKERStart: 31-30-8089MWDPC- FITO MCtart: 02-20-3690Raqdk count complete auto&auto difrntl wbc FITO AKERStart: 16-01-7662Dznyzfqhygmkw metabolic panelSDIMA VILLALOBOS Start: 95-52-2813Nfyqcnn function panelSDIMA AKERStart: 67-49-9719Undspud blood reagent stripJean Pierre Barton Work Phone: Start: 22-84-7907UNXOE-19, ANTIBODY, TOTALRebriericarda Jorge Work Phone: Start: 93-95-5287QKEHI-19Rekhricarda Patel Work Phone: Start: 23-43-1975NWAHVUISJ PATIENTSDIMA SALEHGLADYSPAULAna Start: 88-14-2096MAYQX OXIMETRY, CONTINUOUSSAHARRISON COMMUNITY HOSPITAL MCtart: 08-01-2020 Glucose blood reagent stripJean Pierre Barton Work Phone: Start: 54-30-4616QJOCTYD PRECAUTIONSCHACORTA IVLLALOBOS Start: 15-23-1854RYZUO OXIMETRY, CONTINUOUSHENDERSON KEVYNTOMASAÁNGELAtart: 08-01-2020 Glucose blood reagent stripSDIMA SALEHGLADYSYONATANtart: 41-62-4188KBRW GENERALSAHARRISON COMM[facility] MCtart: 94-02-8658Uocbkkx blood reagent stripJean Pierre Barton Work Phone: Start: 39-26-8515FOPCFXKI OXYGEN THERAPY PROTOCOLSDIGNITY HEALTH ARIZONA SPECIALTY HOSPITALJoyce AKERStart: 31-36-1960ZDATV CANNULA OXYGENSAHARRISON COMMUNITY HOSPITAL MCtart: 01-35-5316JTMSA OXIMETRY, CONTINUOUSHENDERSON MCtart: 31-45-6333Dxjmpch blood reagent stripSDIMA SALEHCLARISSEtart: 29-76-1096Etlfq count complete auto&auto difrntl wbcSAHARRISON COMMUNITY HOSPITAL KEVYNTOMASAÁNGELAtart: 10-78-3480Dhqwdzqenwvbq metabolic panelSLEO PAULHUNTERtart: 99-04-5962Aummnfh function panelSDIMA VELEZMARINPAULAna Start: 44-87-1950Tnfgkzi blood reagent stripJean Pierre Barton Work Phone: Start: 92-98-6304TUOBI METABOLIC PANEL W/ REFLEX TO MG FOR LOW KSrikanth Popuri Work Phone: Start: 88-03-6914Sapfv count complete auto&auto difrntl wbcSrikarobles Rucker Work Phone: Start: 07-71-1403Fdtwupd function panelRepeter Patel Work Phone: Start: 15-43-8627BFHST OXIMETRY, CONTINUOUSFITO AKERStart: 83-82-3461IYCZI OXIMETRY, CONTINUOUSFITO AKERStart: 86-66-2022Xgjjtlq blood reagent stripSDIMA AKERStart: 43-32-0386UKSVL OXIMETRY, CONTINUOUSFITO INGRAMSStart: 95-78-9920Hhpztmi blood reagent stripJean Pierre Barton Work Phone: Start: 25-80-3939Gtbbxxp blood reagent stripSDIMA AKERStart: 78-02-7716DBSNT OXIMETRY, CONTINUOUSFITO AKERStart: 72-37-6114Znjghms blood reagent stripJean Pierre Barton Work Phone: Start: 77-54-4651VHS SCANNED REPORTSDIMA VELEZMARINVERO Start: 42-01-8731GIH SCANNED REPORTHpf ScanningStart: 43-26-5313RTKQM OXIMETRY, CONTINUOUSFITO AKERStart: 42-53-7004Vufnpiw blood reagent stripSDIMA AKERStart: 31-28-6717Xapimqs blood reagent stripJean Pierre Barton Work Phone: Start: 59-94-6127EP CONSULT TO PSYCHIATRYSAJoyce PAULMARLENYÁNGELAtart: 56-56-8300Tucpaqr blood reagent stripSDIMA AKERStart: 99-90-0796RJRKBZSS OXYGEN THERAPY PROTOCOLSDIMA PAULMARLENYÁNGELAtart: 07-31-2020 NASAL CANNULA OXYGENFITO SALEHTOMASAÁNGELAtart: 45-67-6744LAJOO OXIMETRY, CONTINUOUS FITODEZ AKERStart: 74-26-0626Aahsbit blood reagent stripJean Pierre Barton Work Phone: Start: 72-22-6842Walnu of ammoniaFITO VELEZDAT Start: 02-11-6949Rtddhuc function panelSDIMA AKERStart: 79-94-4188Ydd routine ecg w/least 12 lds w/i&rSACHACORTA AKERStart: 90-79-2053KQG REPORT FITO AKERStart: 92-35-2136IVVCITM PRECAUTIONSFITO AKERStart: 64-29-6984JNWIC OXIMETRY, CONTINUOUSFITO AKERStart: 23-56-5866Nusqe of ammoniaRepeter Patel Work Phone: Start: 68-51-7867Ymdyehh function panelLizzeth Patel Work Phone: Start: 55-61-4569Kww routine ecg w/least 12 lds trcg only w/o i&rRnahum Patel Work Phone: Start: 46-43-9362EDA REPORTHpf ScanningStart: 33-45-4591Eektyjqnnoyqgqr tricyclic other cyclicals 1 or 2SDIMA VELEZDAT Start: 14-53-2163Psqtw of thyroid stimulating hormone tshFITO AKERStart: 89-02-5102Pqwrlksmxc glycosylated o2aAAGEOFITO AKERStart: 61-21-1989Pskzfbe antibodiesFITO AKERStart: 29-86-3755Mtpsu panelSDIMA AKERStart: 55-81-0711Audrmhdvzqi direct measurement ldl cholesterolFITO AKERStart: 14-54-8075Wdhah misc pathSDIMA AKERStart: 10-39-8598FUJOMWW PRECAUTIONS FITO AKERStart: 31-75-9661ZFXDP WEIGHTSFITO AKERStart: 65-04-6869ZWBGN OXIMETRY, CONTINUOUSFITO AKESRtart: 22-34-2904Mzqusqc blood reagent stripSDIMA AKERStart: 08-00-2719Grpvp of thyroid stimulating hormone tshsiljosephjoyce Chaim Work Phone: Start: 38-24-4994PNG-65 AUTOANTIBODYSrtrent Rucker Work Phone: Start: 67-31-2495Ommfgaolor glycosylated b4lTkyzqjmg PopDine in Work Phone: Start: 41-24-5037Jesoi panelSrijesus HadleyDine in Work Phone: Start: 79-58-9253Voevmywcpnh direct measurement ldl cholesterolTj OggiFinogi Work Phone: Start: 22-54-9788DUCBSQZWHFmdtdpfy OggiFinogi Work Phone: Start: 46-63-0055Aqnrc count complete auto&auto difrntl wbcSACHACORTA MCtart: 11-16-9969Rnduktmydkfvl metabolic panelSDIMA AKERStart: 77-52-5753UKYN CODESDIMA AKERStart: 08-00-5502QPPYIAZR OXYGEN THERAPY PROTOCOLSDIMA AKERStart: 51-45-8723ZJ CONSULT TO CASE MANAGEMENTFITO Garciart: 03-45-2019NIFDS CANNULA OXYGENSACHACORTA AKERStart: 33-54-7850YBTQW/VASCULAR CHECKSSACHACORTA AKERStart: 13-32-2884GHEZTY PHYSICIAN (SPECIFY)FITO Garciart: 60-46-9069XS EVAL AND TREATFITO Garciart: 63-45-6951NQ EVAL AND TREATFITO VILLALOBOS Start: 45-93-0856GBUAK OXIMETRY, CONTINUOUSSACHACORTA Garciart: 07-30-2020 REASON FOR NO MECHANICAL VTE PROPHYLAXISFITO Garciart: 00-50-0296GKVKGZ AT BEDSIDEFITO Garciart: 93-63-7503YYRLGOB PRECAUTIONSSACHACORTA AKERStart: 40-21-8584SEBQRPSHH MONITORINGSACHACORTA Garciart: 82-40-9504KCRDL SIGNSSACHACORTA AKERStart: 11-22-5518Iemrhfj blood reagent stripComaisha Grubbs Work Phone: Start: 83-27-4622ICCEGBO STATUS (FROM ED OR OR/PROCEDURAL)FITO AKERStart: 79-35-9561Uznf screen class list Gerri Garciart: 17-10-8895Rmgia of lactateFITO AKERStart: 21-33-5148FY CONSULT TO INTERNAL MEDICINESDIMA AKERStart: 66-47-9055Ewq routine ecg w/least 12 lds w/i&rSACHACORTA AKERStart: 01-54-7733GMD REPORTSDIMA AKERStart: 36-06-0797Ylga screen class list aGeoffrey Garst Work Phone: Start: 92-33-5646Svovzjcebe exam chest single view FITO SALEHGLADYSYONATANdavidrt: 57-21-8106HCXQZNB PRECAUTIONSFITO Garciart: 55-50-2884Qgjnr of lactateGebari Cho Work Phone: Start: 36-92-3681MWVJL GAP (CALC) POCFITO VILLALOBOS Start: 21-90-0716Snshb count hemoglobinFITO AKERStart: 96-49-2376Jwhfmxp ionizedFITO AKERStart: 13-63-4689Wpfovqag other sourceSDIMA VILLALOBOS Start: 00-12-8169EDICXNUGZK W/GFR POINT OF CAREFITO AKERStart: 37-13-6696Ngjc bld gluc mntr dev cleared fda spec home useSDIMA VILLALOBOS Start: 17-06-0426Xljierz blood reagent stripSDIMA SALEHGLADYSYONATANtart: 07-30-2020 LACTIC ACID,POINT OF CAREFITO AKERStart: 05-27-2350Culmatrnw serum plasma/whole bloodFITO VELEZMARLENYÁNGELAtart: 75-88-1257Umcach serum plasma or whole bloodFITO SALEHGLADYSYONATANtart: 30-80-7640UVJWYS BLOOD GAS, POINT OF CAREFITO SALEHGLADYSYONATANtart: 15-82-5964Vlgmxmpyplsufdp tricyclic other cyclicals 1 or 2 FITO SALEHTOMASAÁNGELAdavidrt: 38-96-2903Ekobs of lipaseFITO SALEHGLADYSKASStart: 25-62-0571Uszlb count complete auto&auto difrntl wbcSACHACORTA INGRAMSStart: 21-30-9933Zcxf tst prsmv instrmnt chem analyzers pr Brendan INGRAMSStart: 39-44-0080Tng routine ecg w/least 12 lds trcg only w/o i&rWaseem Kyle Work Phone: Start: 91-77-3445SMM REPORTHpf ScanningStart: 30-88-4095Hhdavdxaou exam chest single viewGeoffrey Tammie Work Phone: [phone]: 95-69-5454XOYLJ GAP (CALC) POCPerezellen Freddy Work Phone: [phone]: 04-53-4038Wygje count hemoglobinRazaellen Freddy Work Phone: [phone]: 95-32-3973IQISIWX, IONIC (POC)Peace Juan-Sandra Work Phone: [phone]: 94-42-8175Areeuhti [Moles/Vol]Malikkarina Freddy Work Phone: Start: 72-47-5117VXXCTFHTLB W/GFR POINT OF CAREPerezellen Juan-Sandra Work Phone: [phone]: 42-45-3997Pmbn bld gluc mntr dev cleared fda spec home useRazan Freddy Work Phone: Start: 35-51-4086Sljflqh blood reagent stripRazaellen Freddy Work Phone: [phone]: 89-86-7232NWLDWC ACID,POINT OF CAREPerezellen Juan-Claires Work Phone: Start: 03-46-2459Woesnjtsz [Moles/Vol]Peace Juan-Sandra Work Phone: [phone]: 77-62-3969Kyqobp [Moles/Vol]Peace Juan-Claires Work Phone: Start: 68-34-7344LGMYPW BLOOD GAS, POINT OF CARERazaellen Juan-Claires Work Phone: Start: 90-38-2917Tjdcz of lipaseGeoffrey Gar Work Phone: Start: 36-56-5767Gvjgs count complete auto&auto difrntl wbcGeoffrey Garst Work Phone: Start: 34-71-4156SEK SCR, BLD, EDGeoffrey Garst Work Phone: Start: 78-57-5525UHJLIKXFDWlmtyqbz Garst Work Phone: Start: 07-30-2020 End: 84-42-6844Vre routine ecg w/least 12 lds trcg only w/o i&rGeoffrey Garst Work Phone: Start: 07-30-2020 End: 90-03-6306PYE REPORTHpf ScanningStart: 40-34-8683RVMTFMBHH PATIENTSDIMA Josert: 61-26-8509KXLG CODESDIMA MCtart: 37-99-0331VCTFYKC MONITORING CLOSE Q 15 MINUTESSAJoyce MCtart: 31-59-0431PDIBMKY CESSATION EDUCATIONSACHACORTA MCtart: 30-04-8456OLDTR SIGNSSACHACORTA MCtart: 21-53-8248GD CONSULT TO SOCIAL WORKSDIMA Josert: 84-19-0039YMOOMSN STATUS (FROM ED OR OR/PROCEDURAL)FITO MCtart: 58-99-3697CBAH GENERAL FITO Josert: 29-21-5334Abzeuevz bordetellaSACHACORTA MCtart: 55-22-2024Onoac of acetaminophenSARAJoyce AKERStart: 21-24-0413Zhwtx of ethanolSARAH MARIESStart: 50-67-3159Ptbtk of osmolality bloodSARAJoyce INGRAMSStart: 13-52-3613Nlkrd of salicylateSACHACORTA AKERStart: 30-67-7555Dfjdo of thyroid stimulating hormone tshSACHACORTA AKERStart: 76-59-8122Dawqq metabolic panel calcium totalSACHACORTA INGRAMSStart: 02-26-2020 Blood count complete auto&auto difrntl wbcSACHACORTA INGRAMSStart: 75-63-3505Rvzp screen class list Gerri INGRAMSStart: 31-13-9297Uqtax dip stick/tablet rgnt auto w/o microscopyFITO INGRAMSStart: 99-57-8329Hfkvd gap [Moles/Vol] Vannessaamed Eltierarani Work Phone: Start: 10-56-6806Vdqgs of acetaminophenMohamed Eldirani Work Phone: Start: 19-16-8163Iosgs of ethanolMohamed Eldirani Work Phone: Start: 19-97-1187Tcigy of osmolality bloodMohamed Eldirani Work Phone: Start: 75-31-0223Mamjq of salicylateMohamed Eldirani Work Phone: Start: 14-35-8422Nvxdm of thyroid stimulating hormone tshMohamed Eldirani Work Phone: Start: 78-64-9850Bbvjd metabolic panel calcium total Corinne Moncadarani Work Phone: Start: 32-56-5702Gxdls count complete auto&auto difrntl wbcMohamed Eldirani Work Phone: Start: 46-19-9587Pead screen class list aMohamed Eldirani Work Phone: Start: 28-72-3075Mafav dip stick/tablet rgnt auto w/o microscopyMohamed Eldirani Work Phone: Start: 85-07-0284Cosghbjpre examination knee 3 views FITO SALEHTOMASASStart: 97-94-9641Ulolszekfi examination knee 3 viewsFito Velezmarlenyana Work Phone: start: 31-92-1921IFHMJRPEFQMmdem KavalauskasStart: 03-33-6356Rliut bp <80 mm hgSarah Kavalauskas Work Phone: start: 82-49-3280WKWFNUOA Keren Villalobos Start: 00-85-3601Tjandfagxhsex w/patient 30 minutesJeángel Dorantes Work Phone: start: 67-24-7980Up tobacco screen rcvd tlValeriano Villalobos Work Phone: Start: 49-58-2497Gl-focused hlth risk assmt score doc stnd instrLilliam Villalobos Work Phone: Start: 28-00-5043Sfxs bp >/= 140 mm Sheyla Villalobos Work Phone: start: 13-01-1903eaqpeadu berated, harassed, or intimidateKailey VillalobosNone (qualifier value)Joel JORGE NEGATED: Highlighted row has not occurred!Start: 02-14-2020H/O: surgeryFito Villalobos Plan of Treatment DateCare ActivityDetailAuthorStart: 71-32-8681OguckcjkxSt. [facility] Hospital Start: 56-11-1915NmvnqhrtlHolzer Health Systemtart: 61-52-7153Gaoohcdu to clinical allergistPremier Health [facility] CenterStart: 36-46-4066TvrbapjzkHolzer Health Systemtart: 94-07-5264Plkubtaa admissionHolzer Health Systemtart: 04-98-4115UjckxggdmPremier Health [facility] CenterStart: 37-07-8247HyggsqjiwPremier Health [facility] CenterStart: 00-54-9796JfvbksxrtPremier Health [facility] CenterStart: 96-52-3496Zrlrkzeu to clinical allergistPremier Health [facility] CenterStart: 83-69-0583Fqdyeuvb to Social ServicesHolzer Health Systemtart: 36-79-4378Zmwhanjv admissionPremier Health [facility] CenterStart: 69-61-4574ZwfzvillcHolzer Health Systemtart: 08-04-2024 [facility] CenterStart: 42-29-8776Xgbxwqsr to clinical event organizer [facility] Systemtart: 59-55-9484MozlebgrbHolzer Health Systemtart: 68-62-6667Qirjfuhg to Social ServicesHolzer Health Systemtart: 90-88-3596Rxdyhxhs admissionHolzer Health Systemtart: 26-52-5664RvaublqwvHolzer Health Systemtart: 17-67-0358Oefyfga referral [facility] Work Phone: Start: 55-91-8240Jtznlyn referralMercy Health St. [facility] Work Phone: Start: 91-77-6162Ixmcqup referralMercy Health St. [facility] Work Phone: Start: 24-25-9121ZHfN/Tdap/Td vaccine (7 - Td) DTaP/Tdap/Td vaccine (7 - Td)[facility]art: 21-54-6553QuppoteivHolzer Health Systemtart: 06-35-8039EgV3w (Bld) [Mass fraction]A1C test (Diabetic or Prediabetic)[place]: 73-42-8120KbG4s (Bld) [Mass fraction]A1C test (Diabetic or Prediabetic)[facility]: 07-31-2021 Lipid panelLipid [facility]: 08-04-2020 End: 72-09-4892Lfnyk metabolic 2000 panelBasic Metabolic Panel Lab Routine Toxic metabolic encephalopathy Expected: 08/04/2020, Expires: 08/01/2021[place], [place]Com[place] [facility] on above:Expected: 08/04/2020, Expires: 08/01/2021tart: 69-14-6518Gnimzaass [place], [place]Start: 95-68-2568EI Knee 3 Views ([id number])[facility] Work Phone: start: 53-35-5304LqeltmlnpwqPpazvkMedical Center of [facility] Work Phone: comment on above:Note: Please make a referral to: Start: 52-37-1613Fzfvlncp microalbuminuria testDiabetic microalbuminuria test [facility]: 49-91-3314Qwarmkdnywfyq (ACWY) vaccine (1 - 2-dose series)Meningococcal (ACWY) vaccine (1 - 2-dose series)[facility]: 06-42-0376KFJ screeningHIV screenMercy Health St. [facility]: 06-56-0336YDJ vaccine (2 - Male 2-dose series)HPV vaccine (2 - Male 2-dose series)[facility]: 27-19-5795ZON vaccine (1 - Male 2-dose series)HPV vaccine (1 - Male 2-dose series)[facility]: 15-54-5336Rsgphsvc foot examinationDiabetic foot examMercy Health St. [facility]: 11-67-4887Fhtqawdu retinal examDiabetic retinal examMercy Health St. [facility]: 2008 DTaP/Tdap/Td vaccine (1 - Tdap)DTaP/Tdap/Td vaccine (1 - Tdap)[facility]: 44-96-8185Xabuxzyzayyw 0-64 years Vaccine (1 of 1 - PPSV23)Pneumococcal 0-64 years Vaccine (1 of 1 - PPSV23)[facility]: 09-04-2003 Hepatitis B vaccine (3 of 3 - Risk 3-dose series)Hepatitis B vaccine (3 of 3 - Risk 3-dose series)[facility]: 29-92-5571Xriklkedu B vaccine (3 of 3 - 3-dose primary series)Hepatitis B vaccine (3 of 3 - 3-dose primary series)[facility]: 55-61-0601Kbtwuocuw A vaccine (1 of 2 - 2-dose series)Hepatitis A vaccine (1 of 2 - 2-dose series)[facility]: 44-99-0437Etyemxv,Mumps,Rubella (MMR) vaccine (1 of 2 - Standard series) Measles,Mumps,Rubella (MMR) vaccine (1 of 2 - Standard series)[facility]: 25-55-7172Oapulwvfz vaccine (1 of 2 - 2-dose childhood series)Varicella vaccine (1 of 2 - 2-dose childhood series)[facility] SpringfieldDENITAStart: 2001 Hepatitis B vaccine (1 of 3 - 3-dose primary series)Hepatitis B vaccine (1 of 3 - 3-dose primary series)[facility], DENITABasi Metabolic Panel w/ Reflex to MGBasic Metabolic Panel w/ Reflex to MG Lab Routine Daily until discontinued starting 07/31/2020, 1 completedKettering Health SpringfieldDENITAComted on above:Daily until discontinued starting 07/31/2020, [address] [facility] HospitalCBC auto differentialCBC auto differential Lab Routine Daily until discontinued starting 07/31/2020, 1 completedKettering Health SpringfieldLarissa on above:Daily until discontinued starting 07/31/2020, 1 completed Chlamydia trachomatis DNA [Presence] in Unspecified specimen by HEIDY with probe detectionMercy Hospital Work Phone: cholesterol.total/Cholesterol in HDL [Mass Ratio] in Serum or PlasmaSt. Charles HospitalComprehensive metabolic 2000 panel - Serum or PlasmaSt. Charles HospitalContinuous pulse oximetryPulse oximetry, continuous Respiratory Care Routine Every 4hr until discontinued starting 07/31/2020[facility] SpringfieldLarissa on above:Every 4hr until discontinued starting 07/31/2020 End: 50-88-1649ZDS-65 AUTOANTIBODYGAD-65 AUTOANTIBODY Lab Add-On One Time for 1 Occurrences starting 07/30/2020 until 07/30/2020[facility] SpringfieldDENITAComted on above:One Time for 1 Occurrences starting 07/30/2020 until 07/30/2020GAD-65 AUTOANTIBODYGAD-65 AUTOANTIBODY Lab Add-On 07/31/2020 12:26 AM EDMagruder HospitalDENITAGlucose measurement estimated from glycated hemoglobinSt. Charles HospitalHemoglobin A1c/Hemoglobin.total in BloodSt. Charles HospitalHEPATIC FUNCTION PANELHEPATIC FUNCTION PANEL Lab Routine Daily until discontinued starting 07/31/2020, 2 heavenKettering Health SpringfieldLarissa on above:Daily until discontinued starting 07/31/2020, 2 completed End: 46-66-8635Zmdvusrifiaup sendout 2Miscellaneous sendout 2 Lab Routine Once for 1 Occurrences starting 07/31/2020 until 07/31/2020[facility] Comment on above:Once for 1 Occurrences starting 07/31/2020 until 07/31/2020 Miscellaneous sendout 2Miscellaneous sendout 2 Lab Routine 07/31/2020 12:26 AM EDTMSt. [facility], KYNasal Cannula oxygenNasal Cannula oxygen Respiratory Care Routine Daily until discontinued starting 07/30/2020[facility], KYComment on above:Daily until discontinued starting 07/30/2020Neisseria gonorrhoeae DNA [Presence] in Unspecified specimen by HEIDY with probe detectionPremier Health Upper [facility] Ctr Work Phone: Oxygen therapy [Minimum Data Set]Initiate Oxygen Therapy Protocol Respiratory Care Routine Daily until discontinued starting 07/30/2020[facility], KYComment on above:Daily until discontinued starting 07/30/2020Patient EducationPremier Health Upper Valley [facility]tr Work Phone: Patient referralMercy Health St[facility] Work Phone: POCT GlucosePOCT Glucose Point of Care Testing STAT As Needed until discontinued starting 07/30/2020[facility], KYComment on above:As Needed until discontinued starting 07/30/2020 End: 71-90-4062APYNSANZRGkbpu Health- [place], [place]Comment on above:One Time for 1 Occurrences starting 07/30/2020 until 07/30/2020[facility]ATriHealth [facility] [place] Trichomonas vaginalis DNA [Presence] in Unspecified specimen by HEIDY with probe detectionPremier Health Upper Valley [facility]tr Work Phone: VLDL cholesterol measurementAdventHealth Kissimmee Immunizations Immunization DateImmunizationNotesCare VzbxeeeeGkuiicxo08-14-7791xdgdpswrw, seasonal, injectable, preservative freeAPRN Demetria Cifuentes Work Phone: [facility]08-31-2021SARS-CoV-2 (COVID-19) mRNA BNT-162b2 sungxPakay PATEL [facility]08-10-2021SARS-CoV-2 (COVID-19) mRNA BNT-162b2 [place] PATEL [facility] Hospitalgaetano Morrow DatePayer CategoryPayerPolicy [id number] BCBS - [place] PPO xxxxxxxxxxxx 2020-Present [address] [place], [place] [address]otsv,xxxxx [id number],[id number] UnknownBCBS BCBS - [place] PPO xxxxxxxxxxxx 2019-Present [address] [place], [place] [address]zrlspudrakvr [id number] [id number] 2.16.840.1.575276.3.140.1.10909.[id number] 2.16.840.1.728084.3.5[id number] 2.16840.1.636220.3.5[id number] 2.16840.1.821411.3.5[id number] 2.16.840.1.275572.3.57[id number] 2.16.840.1.180328.3.57[id number] 2.16.840.1.983937.3.57[id number] 2.16.840.1.966765.3.57[id number] 2.16.840.1.815499.3.57[id number] 2.16.840.1.154649.3.57[id number] 2..840.1.399670.3.57[id number] 2.16.840.1.575767.3.579.[id number] [id number] [id number] 2.0.1.1[id number] 2.840.1.363243.3.579.2.531 [id number] 2..1.7[id number] 2.0.1.2[id number] 2.0.1.411551.3.579.2.531 [id number] 2..1.270298.3.579.2.531 Social History DateTypeDetailFacilityAssertionSexually active (finding)[facility] Work Phone: assertionGender identity finding (finding)[facility] Work Phone: assertionExposure to pollution (event)[facility] Work Phone: assertionFinding of sexual orientation (finding)[facility] Work Phone: AssertionTobacco user (finding)[facility] Work Phone: Start: 08-01-2024 End: 31-86-1244Gtmfkej smoking statusUnknown if ever smokedSt. Charles HospitalAssertionProblem situation relating to social and personal history (finding)[facility] Work Phone: AssertionEmotional stress (finding)[facility] Work Phone: [phone] (finding)[facility] Work Phone: AssertionExecutive Urology of [facility] Hospital BellevueAssertionVictim status (finding)[facility] Work Phone: AssertionVictim of child abuse (finding)[facility] Work Phone: AssertionFinding relating to drug misuse behavior (finding)[facility] Work Phone: AssertionHeterosexual (finding)[facility] Work Phone: AssertionLives with relatives (finding)[facility] Work Phone: AssertionVictim of child neglect (finding)[facility] Work Phone: AssertionVictim of physical abuse (finding)[facility] Work Phone: LssertionSingle person (finding)[facility] Work Phone: MmccunutyUwjb-faln employment (finding)[facility] Work Phone: Sex Assigned At BirthNot on [facility] [place] Start: 02-27-2020 End: [id number] smoking status NHISCurrent every day smokerK[facility] [place], [place]History of tobacco useCigarette SmokerK[facility]tering Health [place], [place]Start: 02-27-2020 End: [id number] smoked current (pack per day) - ReportedKettering Health [place], KYHistory of tobacco useChews TobaccoKettering Health [place], [place]: 02-27-2020 End: [phone] intakeCurrent drinker of alcohol (finding)[facility] [place]: 22-35-1527Mbbjruk SDOH Alcohol Cwcyskanw0AzdpsKettering Health [place], KYStart: 38-50-8663Obtiumc SDOH Alcohol Std Vqnpnl7UdfpzKettering Health [place], KYExposure to SARS-CoV-2 (event)Unable to assessKettering Health [place], KYStart: 41-04-4556Bqtlbrw use and exposureFormer userKettering Health [place], KYExposure to SARS-CoV-2 (event)Not sureKettering Health [place], [facility]: 15-30-6181Roz [facility] At [facility] Hospitaltart: [phone] smoking status NHISNever smoked tobacco (finding)[facility] Systemt[facility]: 04-25-2024 End: 47-09-5186Hnfwcdn smoking statusSmoker (finding)[facility]vueStart: 01-05-2025 End: 85-71-1120XizChbm (finding)[facility] HospitalNEGATED: Highlighted rowAssertionCurrent drinker of alcohol (finding)[facility] Work Phone: NEGATED: Highlighted rowAssertionFinding relating to drug misuse behavior (finding)Health [facility] Work Phone: NEGATED: Highlighted rowAssertionHealth Partners [facility] Hospital Work Phone: NEGATED: Highlighted rowAssertionCriminal behavior (finding)[facility] Work Phone: NEGATED: Highlighted rowAssertionInadequate food diet (finding)[facility] Work Phone: NEGATED: Highlighted rowAssertionTobacco user (finding)[facility] Work Phone: NEGATED: Highlighted rowAssertionExposure to pollution (event)[facility] Work Phone: Medical Equipment Procedure CodeEquipment CodeEquipment Original TextEquipment IdentifierDates Blood Sugar Diagnostic (Freestyle Precision Jorge Strips) stripStart: 03-03-2024 Blood Sugar Diagnostic (Freestyle Precision Jorge Strips) stripStart: 03-03-2024 End: 23-64-5770Wae Needle, Diabetic (Bd Ultra-Fine Micro Pen Needle) 32 gauge x 1/4 needleStart: 72-97-0070Boict Sugar Diagnostic (Freestyle Precision Jorge Strips) stripStart: 03-03-2024 End: 65-17-5697Msb Needle, Diabetic (Bd Ultra-Fine Micro Pen Needle) 32 gauge x 1/4 needleStart: 86-23-4910Tbxqe Sugar Diagnostic (Freestyle Precision Jorge Strips) stripStart: 03-03-2024 End: 77-89-9865Gjg Needle, Diabetic (Bd Ultra-Fine Micro Pen Needle) 32 gauge x 1/4 needleStart: 94-09-7818Dxkkv Sugar Diagnostic (Freestyle Precision Jorge Strips) stripStart: 03-03-2024 End: 28-51-7904Mjvmi Sugar Diagnostic stripStart: 68-98-3758Ouj Needle, Diabetic (Bd Ultra-Fine Micro Pen Needle) 32 gauge x 1/4 needleStart: 37-20-6849Ejgvr Sugar Diagnostic (Freestyle Precision Jorge Strips) stripStart: 03-03-2024 End: 22-85-5851Xgbvr Sugar Diagnostic stripStart: 97-70-2998Fna Needle, Diabetic (Bd Ultra-Fine Micro Pen Needle) 32 gauge x 1/4 needleStart: 20-34-7030Jbkhg Sugar Diagnostic (Freestyle Precision Jorge Strips) stripStart: 03-03-2024 End: 25-61-9263Agcuz Sugar Diagnostic stripStart: 86-68-6448Lsf Needle, Diabetic (Bd Ultra-Fine Micro Pen Needle) 32 gauge x 1/4 needleStart: 13-79-3034Mhjly Sugar Diagnostic (Freestyle Precision Jorge Strips) stripStart: 03-03-2024 End: 29-83-0483Lpgpw Sugar Diagnostic (Freestyle Precision Jorge Strips) strip Start: 03-03-2024 End: 69-50-9074Vnjgk Sugar Diagnostic stripStart: 06-29-2024 End: 73-45-2048Jno Needle, Diabetic (Bd Ultra-Fine Micro Pen Needle) 32 gauge x 1/4 needleStart: 06-29-2024 End: 04-05-2025 Goals DatePatient GoalDesired Activity/State Functional Status TyfeOnlclbmbefNmrnnkJlsskxqb53-34-7710Pxiymxqzmk statusPatient at [facility] Work Phone: [phone]yka statusPatient Not at [facility] Work Phone: [phone] statusPatient at [facility] Work Phone: [phone]) [phone] statusPatient at [facility] Work Phone: [phone]h StatusN/AExec[facility] Mental Status GvzdYfvbpvorvxQdytryYbrdmmjv65-63-8165Rbzmszlmq functionCognitive Status [facility] Work Phone: [phone] functionCognitive Status [facility] Work Phone: [phone] functionCognitive Status [facility] Work Phone: [phone] functionCognitive Status [facility] Work Phone: Cognitive functionCognitive functioning was normal Cognitive function finding (finding)[facility] Work Phone: Clinical Notes 09-29-2022 to 04-04-2025 Note Date & NqagVqpcDufcngte62-27-3881 Progress note Author [facility]eferino Edwards [facility] Date/TimeJune 2024 2:58[place] [address] Psychiatry Progress Note Signed Patient: Tracie Ramirez MR#: [id number] 4579 : 2000 Acct:[id number] Age/Sex: 25 / M Adm Date: 5 Loc: 1S Room: [address] [place] [address] Type : ADM IN Attending Dr: Blue Talbot MD Copies to: ~ Date of Service: 04/04/2025 Subjective Subjective Narrative: Mr. Ramirez is a 25 year old male on day 4 of hospitalization for SI. Today, pt presented as anxious. He was denied from [facility] [place] but was accepted at two other programs. [...] <Electronically signed by Ceferino Edwards MD> 04/04/25 4364 [facility] Work Phone: 1(620) 488-507106-10-2025 [place] [id number] Psychiatry Progress Note Signed Patient: Tracie Ramirez MR#: [id number] 4579 : 2000 Acct:[id number] Age/Sex: 25 / M Adm Date: 5 Loc: 1S Room: [address] [place] [address] Type : ADM IN Attending Dr: Blue Talbot MD Copies to: ~ Date of Service: 04/04/2025 Subjective Subjective Narrative: Mr. Ramirez is a 25 year old male on day 4 of hospitalization for SI. Today, pt presented as anxious. He was denied from [facility] but was accepted at [...] MD 04/04/25 1040 Signed By: 04/04/[address] [facility]06-09-2025 Progress note Author Ceefrino Edwards [facility] HospitalNote Date/TimeJune 2024 3:35[place] [address] Psychiatry Progress Note Signed Patient: Tracie Ramirez MR#: [id number] 4579 : 2000 Acct:[id number] Age/Sex: 25 / M Adm Date: 5 Loc: 1S Room: [address] [place] [address] Type : ADM IN Attending Dr: Blue [...] <Electronically signed by Ceferino Edwards MD> 04/03/25 2225 [facility] Work Phone: 1([phone]) 137-718206-09-2025 [place]ony [place] [id number] Psychiatry Progress Note Signed Patient: Tracie Ramirez MR#: [id number] 4579 : 2000 Acct:[id number] Age/Sex: 25 / M Adm Date: 5 Loc: 1S Room: [address] [place] [address] Type : ADM IN Attending Dr: Blue [...] Edwards MD 04/03/25918 Signed By: 04/03/[address] [facility]06-08-2025 Consult note Author Rola Valdes [facility] Date/TimeJune 2024 8:09[place] [id number] Hospitalist Consult Note Signed Patient: Tracie Ramirez MR#: [id number] 4579 : 2000 Acct:[id number] Age/Sex: 25 / M Adm Date: 5 Loc: Room: [address] [place] [address] Type: ADM IN Attending Dr: Blue Talbot MD Copies to: MD Demetria Hastings APRN, HATCHERY ATTENDANT Rola Valdes APRN NO FAMILY PHYSICIAN Dayan Perrin MD~ HPI DATE OF CONSULTATION: 04/01/25 REQUESTING PROVIDER: Blue Talbot Consult Narrative Reason for Consult: Hypertriglyceridemia, diabetes HPI: This is a 25-year-old male past medical history significant for hypertriglyceridemia, insulin-dependent diabetes, obesity, depression. Presented to [facility] last evening with suicidal ideation and depression. Transferred to [facility] for ongoing psychiatric management. Hospitalist team [...] negative unless noted below or in HPI [facility] Medical History Chronic pain of left knee [...] scheduled aspart -labs in AM, labs from [place] unreportable secondary to lipophilic Depression -further plan of care per inpatient psychiatric team for psychoactive medication management/ adjustment and psychotherapy Documented By: Rola Valdes, CASH MANAGER 05/19 1630 Signed By: <Electronically signed by HAILEE Valdes> 04/01/25 1631 <Electronically signed by Dayan Perrin MD> 04/02/25 0809 [facility] Work Phone: 1([phone]) 756-407506-08-2025 Progress note Author Blue [facility]errero [facility]Note Date/TimeJune 2024 6:39[place] [address] Psychiatry Progress Note Signed Patient: Tracie Ramirez MR#: [id number] 4579 : 2000 Acct:[id number] Age/Sex: 25 / M Adm Date: 5 Loc: 1S Room: [address] [place] [address] Type : ADM IN Attending Dr: Blue [...] [facility] [place] [place] Continue current med regimen Monitor mental status Encourage group participation and psychotherapy Documented By: Blue Talbot MD 5 0636 Signed By: <Electronically signed by Blue Talbot MD> 04/02/25 0639 [facility] Work Phone: 1([phone]) [phone] [place] [address] Hospitalist Consult Note Signed Patient: Tracie Ramirez MR#: [id number] 4579 : 2000 Acct:[id number] Age/Sex: 25 / M Adm Date: 5 Loc: Room: [address] [place] [address] Type: ADM IN Attending Dr: Blue Talbot MD Copies to: MD Demetria Hastings APRN, HATCHERY ATTENDANT Rola Valdes APRN NO FAMILY PHYSICIAN Dayan Perrin MD~ HPI DATE OF CONSULTATION: 04/01/25 REQUESTING PROVIDER: Blue Talbot Consult Narrative Reason for Consult: Hypertriglyceridemia, diabetes HPI: This is a 25-year-old male past medical history significant for hypertriglyceridemia, insulin-dependent diabetes, obesity, depression. Presented to [facility] last evening with suicidal ideation and depression. Transferred to [facility] for ongoing psychiatric management. Hospitalist team [...] negative unless noted below or in HPI [facility] Medical History Chronic pain of left knee [...] 1630 Signed By: 04/01/25 1631 04/02/[address] [facility]06-08-2025 [place] [address] Psychiatry Progress Note Signed Patient: Tracie Ramirez MR#: [id number] 4579 : 2000 Acct:[id number] Age/Sex: 25 / M Adm Date: 5 Loc: 1S Room: [address] [place] [address] Type : ADM IN Attending Dr: Blue [...] [facility] [place] [place] Continue current med regimen Monitor mental status Encourage group participation and psychotherapy Documented By: Blue Talbot MD 5 0636 Signed By: 04/02/[address] [facility]06-07-2025 History and physical note Author Blue [facility]Note Date/TimeJune 2024 2:29pm[place] [address] Psychiatry H&P Signed Patient: Tracie Ramirez MR#: [id number] 4579 : 2000 Acct:[id number] Age/Sex: 25 / M Adm Date: 5 Loc: Room: [address] [place] [address] Type: ADM IN Attending Dr: Blue Talbot [...] outpatient appointments are scheduled prior to discharge. [facility] Medical History (Updated 04/01/25 @ 14:27 by [...] psychotherapy Documented By: Blue Talbot MD 5 2973 Signed By: <Electronically signed by Blue Talbot MD> 04/01/25 6876 [facility] Work Phone: 1([phone]) 866-780806-07-2025 History and physical [place] [id number] Psychiatry H&P Signed Patient: Tracie Ramirez MR#: [id number] 4579 : 2000 Acct:[id number] Age/Sex: 25 / M Adm Date: 5 Loc: Room: [address] [place] [address] Type: ADM IN Attending Dr: Blue Talbot [...] outpatient appointments are scheduled prior to discharge. [facility] Medical History (Updated 06/07/25 @ 14:27 by [...] MD 5 1143 Signed By: 04/01/[address] [facility]03-13-2025 Evaluation note* Diagnosis Onset Date Resolution Status Admit Date Depression acuteMarch 2024 4:51pmDM (diabetes mellitus)acuteMarch 2024 4:51pm HyperlipidemiaacuteMarch 2024 4:51pmHypertriglyceridemiaacuteMarch 2024 4:51pmNoncomplianceacuteMarch 2024 4:51pmDepression with suicidal ideationresolvedMarch 2024 4:51pm [facility] Work Phone: 1(448) 145-775503-13-2025 Evaluation note* Diagnosis Onset Date Resolution Status Admit Date Depression acuteMarch 2024 4:51pmDM (diabetes mellitus)acuteMarch 2024 4:51pm HypertriglyceridemiaacuteMarch 2024 4:51pmNoncomplianceacuteMarch 2024 4:51pmDepression with suicidal ideationresolvedMarch 2024 4:51pm HyperlipidemiaresolvedMarch 2024 4:51pmBipolar disorderacuteJune 2024 12:58pmDiabetic polyneuropathyacuteJune 2024 12:58pmHypertriglyceridemia acuteJune 2024 12:58pmNoncomplianceacuteJune 2024 12:58pmUncontrolled diabetes mellitusacuteJune 2024 12:58pm [facility] Work Phone: 1(216) 436-912210-10-2024 Consult note Author Mauricio White [facility] August 04, 2024 9:47amNote Date/TimeOctober 2023 4:13pm[place] [address] Hospitalist Consult Note Signed Patient: Tracie Ramirez MR#: [id number] 4579 : 2000 Acct:[id number] Age/Sex: 24 / M Adm Date: 4 Loc: Room: [address] [place] [address] Type: ADM IN Attending Dr: Blue Talbot MD Copies to: MD Demetria Hastings APRN, HATCHERY ATTENDANT HAILEE Dickens, DO~ HPI DATE OF CONSULTATION: [...] Neut % (Auto) 59.5, Lymph % (Auto) 34.6,Hutchinson % (Auto) 4.6, Eos % (Auto) 0.7, Baso % (Auto) 0.6, Nucleat RBC Rel Count 0.3, Neut # (Auto) 5.1, Lymph # (Auto) 3.0, Hutchinson # (Auto) 0.4, Eos # (Auto) 0.1, [...] imaging -Already prescribed tizanidine 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 Type [...] signed by Mauricio White DO> 08/04/24 0947 [facility] Work Phone: 1(280) 348-570210-10-2024 Progress note Author Blue guerrero [facility] August 04, 2024 8:38amNote Date/TimeOct2023 8:38[place] [id number] Psychiatry Progress Note Signed Patient: Tracie Ramirez MR#: [id number] 4579 : 2000 Acct:[id number] Age/Sex: 24 / M Adm Date: 4 Loc: 1S Room: [address] [place] [address] Type : ADM IN Attending Dr: Blue Talbot MD Copies to: ~ Date of Service: 08/04/2024 Subjective Subjective Narrative: Mr. Ramirez said he feeling better. He is trying to find proper aftercare plans. Patient stated that he has been going through several stressors. He was recentlylaid off and broke up with GF. He is working with his patient case manager on finding proper aftercare plans. [...] signed by Blue Talbot MD> 08/04/24 0838 [facility] Work Phone: 1(553) 194-448510-09-2024 Progress note Author Blue guerrero [facility] August 03, 2024 6:54amNote Date/TimeOctober 2023 6:51amEbony V[place] [phone] Psychiatry Progress Note Signed Patient: Tracie Ramirez MR#: [id number] 4579 : 2000 Acct:[id number] Age/Sex: 24 / M Adm Date: 4 Loc: 1S Room: 6W1476-2 Type : ADM IN Attending Dr: Blue [...] signed by Blue Talbot MD> 08/03/24 0654 [facility] Work Phone: 1(450) 808-546710-08-2024 History and physical note Author Blue guerrero [facility] August 02, 2024 6:45amNote Date/TimeOct2023 11:35[place] [address] Psychiatry H&P Signed Patient: Tracie Ramirez MR#: [id number] 4579 : 2000 Acct:[id number] Age/Sex: 24 / M Adm Date: 4 Loc: Room: [address] [place] [address] Type: ADM IN Attending Dr: Blue Talbot MD Copies to: MD Demetria Hastings APRN, HATCHERY ATTENDANT~ Date of Service: 08/02/2024 HPI History of [...] never here. We have 1 note about [place] behavioral Past suicide attempts: He endorses 1 [...] to internal stimuli. Insight: limited Judgment: limited [facility] Medical History PTSD (post-traumatic stress disorder) Borderline [...] Appearance Clear Urine pH 6.0 Ur Specific [place] 1.034 H Urine Protein 20 H Urine [...] signed by Blue Talbot MD> 08/02/24 0645 [facility] Work Phone: 1(183) 348-317207-01-2024 Hospital Discharge instructions Patient Education 04/25/2024 11:57:14 [...] require a prescription. You can also purchase jbie-cri-unrxkjy medicines. Medicines may have nicotine in them [...] and encouragement. Call telephone quitlines, such as 8-263-KDXJ-NOW, reach out to support groups, or work [...] provider. Document Revised: 10/03/2022 Document Reviewed: 10/03/2022 [employer] Patient Education 2022 [employer]. 04/25/2024 11:56:01 Vasectomy, Care After Vasectomy, Care [...] Follow these instructions at home: Medicines Take kkji-wgh-lheswgj and prescription medicines only as told by [...] provider. Document Revised: 02/28/2021 Document Reviewed: 02/28/2021 [employer] Patient Education 2022 [employer]. 04/25/2024 11:56:01 Vasectomy Vasectomy Vasectomy is a [...] including vitamins, herbs, eye drops, creams, and jaya-ipq-xhspcwu medicines. Any problems you or family members [...] provider tells you to take them. ?Taking bdke-zip-gbevzzc medicines, vitamins, herbs, and supplements. You may [...] provider. Document Revised: 02/28/2021 Document Reviewed: 02/28/2021 [employer] Patient Education 2022 [employer]. Follow Up Care 12/07/2023 14:35:43 With:JORGE GALINDO, Joel Barber, URL Address: [facility] [address] , [place] [address]- [phone] When: Unknown Comments:sched vasectomy [facility] 02-09-2024 Evaluation note* Encounter Date Diagnosis [...] (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 (ICD-10 - Z79.4) [employer] Other 12-22-2023 Evaluation note* Encounter Date Diagnosis [...] with his PCP to restart these medications. [employer] Other 12-05-2022 Evaluation note* Encounter Date Diagnosis [...] Z72.51) Sep,therSexually transmitted infections material was printed [employer] Other evaluation + Plan note Future Appointments Appointment Date:05/27/2024 09:00:00 AM Scheduled Provider: Location:[facility] Appointment Type:Urology CALL PAT FT Appointment Date:05/31/2024 10:00:00 AM Scheduled Provider: Location:[facility] Appointment Type:Urology FT Appointment Date:06/13/2024 09:30:00 AM Scheduled Provider:Joel PATEL MD Location:[facility] Appointment Type:URO Office Visit [facility] evaluation noteNo assessment information available [facility] Work Phone: evalutfawc note* Diagnosis Onset Date Resolution Status Bronchitis acuteDM (diabetes mellitus)acute [facility] Work Phone: evaluation note* Diagnosis Onset Date Resolution Status Bronchitis acuteAcute adjustment disorder with anxietyacuteChronic back painacuteChronic pain of left kneeacuteDepressionacuteDM (diabetes mellitus)acuteHyperlipidemia acuteNeuropathyacuteCellulitis of neckacuteChronic back painacuteChronic pain of left kneeacute [facility] Work Phone: evaluation note* Diagnosis Onset Date Resolution Status DM (diabetes mellitus) acuteNeuropathyacute [facility] Work Phone: evaluation note* Diagnosis Onset Date Resolution Status Acute adjustment disorder with anxiety acuteADHDacuteChronic back painacuteDM (diabetes mellitus)acuteHyperlipidemia acuteNeuropathyacuteNoncomplianceacuteADHDacuteChronic back painacuteNeuropathy acuteNoncomplianceacute [facility] Work Phone: evaluation note* Diagnosis Onset Date Resolution Status Acute adjustment disorder with anxiety acuteADHDacuteChronic back painacuteDM (diabetes mellitus)acuteHyperlipidemia acuteNeuropathyacuteNoncomplianceacuteADHDacuteChronic back painacuteNeuropathy acuteNoncomplianceacuteChronic back painacuteDepression with suicidal ideation acuteDM (diabetes mellitus)acuteHypertriglyceridemiaacute [facility] Work Phone: Evaluation note* Diagnosis Onset Date Resolution Status Admit Date Depression acuteMarch 2024 4:51pm [facility] Work Phone: History general Narrative - Reported* Type Description Date Medical History DM (diabetes mellitus) [facility] Other Hisbooi general Narrative - Reported* Type Description Date Medical History DM (diabetes mellitus) Medical HistoryArthritis [facility] Other Hospital course Narrative No data available for this section [facility] Hospital Discharge instructions No data available for this section [facility] Hospital Discharge instructionsAmbulatory Orders* Referral to Endocrinology Location: None Selected [facility] Work Phone: Hospital Discharge instructions Additional Instructions Rest Avoid electronics Return here if any problems persist or [facility]senMer[facility] Work Phone: Progress note No data available for this section [facility] Reason for Referral No Reason for [...] adult Open Access - [facility] Findings Encounter Date Cannabis abuse - episodic Established Patient with Sofi Dorantes [facility] 02/14/2020 Mood disorders, NOS Established Patie nt with Sofi Dorantes [facility] 02/14/2020 Nicotine dependence Established Patie nt with Sofi Dorantes [facility] 02/14/2020 Post-traumatic stress disorder Establ ished Patient with Sofi Dorantes [facility] 02/14/2020 Diabetes Risk Test Score was four score 02/14/2020 Open Access - [facility] 02/14/2020 F31.31 - Bipolar disorder, c urrent episode depressed, mild Open Access - [facility] 02/14/2020 M25.562 - Pain in left knee Open Access - [facility]/14/2020 Morbid obesity Open Access - Establ ished with Fito PaulalinegladyspaulD[facility] 02/14/2020 Z68.41 - Body mass index (BM I) 40.0-44.9, adult Open Access - Established with [facility] PaulmarlenyD[facility] 02/14/2020 Diagnosis Left knee pain, unspecified chronicity [...] - 08/01/2020 9:58 PM EDT Discharged to [facility] via [facility]. All personal belongings given. * Kamille Rea RN - 08/01/2020 6:58 PM EDT Called [facility] at [phone]. Spoke with Gabriela to let her know that pt's COVID test was negative. They will contact [facility] for transport.Pt will be going to room 226-2. * Lluvia Jones RCP - 08/01/2020 6:15 PM EDT RAPID Covid 19 swab taken from right nare, labeled, placed in red dot bag, and handed off to critical access hospital worker outside of room for transport to laboratory per hospital policy and procedure. Patient tolerated procedure fairly well. * Lizzeth Patel MD - 08/01/2020 3:45 PM EDT Patient seen and examined in his room. No acute events overnight. Labs reviewed. Afebrile and hemodynamically stable. Patient medically cleared for transfer to [facility] Lizzeth Patel MD PGY-2, Internal Medicine Resident [facility] 08/01/2020 3:49 PM * Kamille Rea RN - 08/01/2020 3:[address] Anderson has a note in for patient. Note is in incomplete tab. Plan is to admit to inpatient psychiatric unit. Perfectserve sent to medical to review pt for clearance to transfer. * Del Rucker MD - 08/01/2020 7:48 AM EDT [facility] Internal Medicine Teaching Residency Program Inpatient Daily Progress Note Patient: Tracie Ramirez Date of : 2000 Acct: [id number] Room: [address] [place] [address] Admit date: 07/30/2020 Today's date: 08/01/20 Number [...] will see the pt at 5pm. 08/01/2020 [place] slipped Psychiatry consult today unable to see [...] resolved hospital problems. * Intentional medication overdose [place] slipped Serial EKG bradycardia to sinus rhythm. [...] Rucker MD Internal Medicine Resident, PGY- 1 [facility]; [place], [place] 08/01/2020, 7:48 AM Associated attestation - [...] is going to pink slip patient. Patricia TOBACCO DRIER OPERATOR sent acouple of messages in regards [...] 08/03/2020 at 11:00 am. This is through [facility]. The office number is [phone]. The fax number for the practice is [phone]. Information was provided by patient's mother. * Del Rucker MD - 07/31/2020 6:30 AM EDT [facility] Internal Medicine Teaching Residency Program Inpatient Daily Progress Note Patient: Tracie Ramirez Date of : 2000 Acct: [id number] Room: 0447/0447-01 Admit date: 07/30/2020 Today's date: [...] Rucker MD Internal Medicine Resident, PGY- 1 [facility]; [place], [place] 07/31/2020, 6:30 AM Associated attestation - Jean Pierre Barton MD - 07/31/2020 4:05 PM EDT Attending Supervising Physician s Attestation Statement I have seen and examined Tracie Ramirez and the eg elements of all parts of the encounter [...] Lizzeth Patel MD PGY-2, Internal Medicine Resident [facility] [place] 07/31/2020 4:40 AM documented in this encounter [...] Complaint Amb Documentation cough, congestion Amb Documentation [facility] d/cReason for VisitBronchitis DM (diabetes mellitus) Chief Complaint Amb Documentation cough, congestion Amb Documentation [facility] d/c check upReason for VisitBronchitis Acute [...] section and content) DATE CREATED AUTHOR 03/11/2020 [facility] DATE CREATED AUTHOR AUTHOR'S ORGANIZ ATION 08/14/2020 [facility] DATE CREATED AUTHOR AUTHOR'S ORGANIZ ATION 04/25/2022 [facility] DATE CREATED AUTHOR AUTHOR'S ORGANIZ ATION 02/02/2023 [facility] DATE CREATED AUTHOR AUTHOR'S ORGANIZ ATION 03/06/2023 [facility] [facility] DATE CREATED AUTHOR AUTHOR'S ORGANIZ ATION 12/01/2023 [facility] DATE CREATED AUTHOR AUTHOR'S ORGANIZ ATION 04/22/2025 [facility] DATE CREATED AUTHOR AUTHOR'S ORGANIZ ATION 05/03/2025 [facility] DATE CREATED AUTHOR AUTHOR'S ORGANIZ ATION 05/13/2025 [facility] DATE CREATED AUTHOR AUTHOR'S ORGANIZ ATION 05/29/2025 [facility] Reason for Visit (unrecogniz ed section and content) ReasonCommentsIngestionStatusReasonSpecialtyDiagnoses / ProceduresReferred By ContactReferred To Contact Diagnoses Suicide attempt by multiple drug overdose, initial encounter (HCC) Suicide attempt by multiple drug overdose, initial encounter (HCC) Marixa Degroot MD [address] [address] [facility] Teams (unrecognized sec tion and content) [...] DOOther ProviderActiveStart: January 05, 2025 End: January 09marilea Stilessein , DOOther ProviderActiveStart: January 05, 2025 [...] , ANGELOOther ProviderActiveStart: January 06, 2025 Latasha Netltes , ANGELOOther ProviderActiveStart: January 06, 2025 Alicia [...] Aryan Santos MDOther ProviderActiveStart: January 06, 2025 Victro Hugo Menjivar MDOther ProviderActiveStart: January 06, 2025 Helen Hernandez MDOther ProviderActiveStart: January 06, 2025 Leti Tucker MDOther ProviderActiveStart: January 06, 2025 Mauricio White DOOther ProviderActiveStart: January 06, 2025 Nubia Dhaliwal MDOther ProviderActiveStart: January 06, 2025 Panchito Ferro MDOther ProviderActiveStart: January 06, 2025 Gabriela Montanez TOBACCO DRIER OPERATOR-COther ProviderActiveStart: January 06, 2025 Veronica Danielle , [...] Status: Inactive Member Role Status Dates Services [facility] Primary Care Provider Ac tive Start: February 17, 2025 End: February 17Olya Hernandez ProviderActiveStart: February 17, 2025 End: February 17, 2025 Team Status: Inactive Member Role Status Dates Kris Gross MD Attending Provider Active St art: March 31, 2025 End: March 31, 2025 Team Status: Active Member Role Status Dates Demetria Cifuentes APRN TOBACCO DRIER OPERATOR-C Primary Care Provider Active Start: March 31, 2025 Katarina Hastingsending ProviderActiveStart: March 31, 2025 Team Status: Inactive Member Role Status Dates PHYSICIAN [facility] Primary Care Provider Active Start: March [...] Provider, Other Provider ActiveStart: April 01, 2025 aYne Kaur , RNOther ProviderActiveStart: April 01, 2025 [...] MDOther ProviderActiveStart: April 01, 2025 Gabriela Montanez TOBACCO DRIER OPERATOR-COther ProviderActiveStart: April 01, 2025 Veronica Danielle , [...] Inactive Member Role Status Dates Lynn Olivas TOBACCO DRIER OPERATOR-C Attending Provider Active Team Status: Active Member Role Status Dates Demetria Cifuentes APRN TOBACCO DRIER OPERATOR-C Primary Care Provider Active Team Status: Inactive Member Role Status Dates Lynn Olivas TOBACCO DRIER OPERATOR-C Attending Provider Active S tart: October 16, 2023 End: October 16, 2023 Team Status: Active Member Role Status Dates PHYSICIAN NO FAMILY Primary Care Provider Active Start: December 08, 2023 Carolina Capone ProviderActiveStart: December 08, 2023 Team Status: Inactive Member Role Status Dates Demetria Cifuentes APRN TOBACCO DRIER OPERATOR-C Primary Care Provider Active Start: December 112023 End: December 11OLIVA McqueenCAttencurtis ProviderActiveStart: December 11, 2023 End: December 11, 2023 Team Status: Active Member Role Status Dates PHYSICIAN NO FAMILY Primary Care Provider Active Start: December 08, 2023 Carolina Gill LPNAtpam ProviderActiveStart: December 08, 2023 Team Status: Active Member Role Status Dates Demetria Cifuentes APRN TOBACCO DRIER OPERATOR-C Primary Care Provider Active Start: December 222023 VICTORIANO MarlowAAtpam ProviderActiveStart: December 22, 2023 Team Status: Inactive Member Role Status Dates Demetria Cifuentes APRN TOBACCO DRIER OPERATOR-C Primary Care Provider, Attending Provider Active Start: February 15, 2024 End: February 15, 2024 Team Status: Inactive Member Role Status Dates Demetria Cifuentes APRN TOBACCO DRIER OPERATOR-C Primary Care Provider, Attending Provider Active Start: March 03, 2024 End: March 03, 2024 Team Status: Inactive Member Role Status Dates Demetria Cifuentes APRN TOBACCO DRIER OPERATOR-C Primary Care Provider, Attending Provider Active Start: June 29, 2024 End: June 29, 2024 Team Status: Inactive Member Role Status Dates Demetria Cifuentes APRN TOBACCO DRIER OPERATOR-C Primary Care Provider, Attending Provider Active Start: July 27, 2024 End: July 27, 2024 Team Status: Active Member Role Status Dates Demetria Cifuentes APRN TOBACCO DRIER OPERATOR-C Primary Care Provider Active Start: August 01, 2024 Anastacio Zhu ProviderActiveStart: August 01, 2024 Matthew Hastings Provider, Attending ProviderActiveStart: August 01, 2024 Team Status: Inactive Member Role Status Dates Demetria Cifuentes APRN TOBACCO DRIER OPERATOR-C Primary Care Provider Active Start: August 01, [...] Member Role Status Dates Demetria Cifuentes APRN TOBACCO DRIER OPERATOR-C Primary Care Provider Active Start: August 02, [...] Team Status: Active Member Role Status Dates [facility] Primary Care Provider Ac tive Team Status: Active Member Role Status Dates Demetria Cifuentes APRN TOBACCO DRIER OPERATOR-C Primary Care Provider Active Start: January [...] BE BASED ON THE PRIMARY CLINICAL RECORDS. [employer] provides no warranty or guarantee of the accuracy or completeness of information in this document.
== END 2025-09-27 22:32 | disposition home or self-care (01) ==
PROVIDERS: Emergency Provider Emergency Medicine
DX: F20.9 Schizophrenia, unspecified (principal); Z76.0 Encounter for issue of repeat prescription
CPT/HCPCS: 99283

== ENCOUNTER 2025-09-30 14:38 | Emergency (ER) | payer MEDICAID, SELFPAY ==
--- OUTSIDE RECORDS SUMMARY | 2025-01-04 04:02 | XMS_ITS | Continuity of Care Document ---
Author Organization [facility] Address [address] [place] [address] Phone Care Team Providers Care Programming Director Name Role Phone Jules Ramirez DO Unavailable [...] 130 MM HG MED LIST DOCD IN [facility] RVW MEDS BY RX/DR IN [facility] OFFICE/OUTPATIENT VISIT, NEW DIAST BP 80-89 MM HG SYST BP < 130 MM HG PT TOBACCO USE DONE RCVD TLK ROUTINE VENIPUNCTURE High Risk Prophylaxis Adult Nutrit Couns For Control Of [place] Dis Aug Oral Hygiene Instruction Intraoral-complete Series (bw) Comp Oral Eval New/estab Patient 2023 Oral Hygiene Instruction Advance Directives Directive Yes / No Effective Date File Name No Information Encounters Encounter Description Practice Location Reason(s) For Visit Diagnoses Date Provider Providers Copied on Encounter [facility], [address] [place] [address], [id number] , tel:+ [phone] [facility] No Information 5 Plank DO Jules. [address] [place] [address], [id number] , [place]. tel: [phone] [facility], [address] [place] [address], [id number] , [place] tel: [phone] [facility] No Information 4 Plank DO Jules. [address] [place] [address], [id number] , [place]. tel:+ [phone] OFFICE/OUTPAT IENT VISIT, EST [facility], [address] [place] [address], [id number] , [place] tel: [phone] [facility] f/u DM (chief complaint) depression f/u (chief complaint) Depression, unspecifiedMixed hyperlipidemiaType 2 diabetes mellitus with hyperglycemiaBody mass index [BMI] 39.0-39.9, adult 4 Plank DO Jules. [address] [place] [address], [id number] , [place]. tel: [phone] OFFICE/OUTPAT IENT VISIT, [facility], [address] [place] [address], [id number] , tel: [phone] [facility] Establish Care (chief complaint) Lab Draw (chief complaint) Body mass index [BMI] 39.0-39.9, adultMixed hyperlipidemiaType 2 diabetes mellitus with diabetic dermatitisScreening for HIV (human immunodeficiency virus)Need for hepatitis B screening test 4 James Camacho. [address] [place] [address], [id number] , [place]. tel:+ [phone] [facility], [address] [place] [address], [id number] , [place] tel: [phone] Dental Clinic [place] (chief complaint) Encounter for screening for dental disorders 4 Riley Perry. [address] [place], [place], [id number] , [place]. tel:+ [phone] [facility], [address] [place] [address], [id number] , [place] tel:+ [phone] Dental Clinic dn (chief complaint) Encounter for screening for dental disorders 4 Riley Perry. [address] [place] [address], [id number] , [place]. tel:+ [phone] Family History Family Member Type Diagnosis Age [...] ry Payers Payer name Insurance type Covered green party ID Authoriza tion(s) Hum[employer] Medicaid [facility] [id number] [id number] Medicaid [facility] [id number] D Humana Medicaid [employer] [facility] [id number] [id number] D Medicaid Wrap - [facility] [place] [id number] Social History Type Description Quantity Date Captured [...] Goal Lipid panel. Due on due Goal Influenza vaccine. Due on due Goal Depression screening. Due on due Goal Tdap Vaccine. Due on 2023 due Goal Dilated eye exam. Due on [...] Goal Pneumococcal vaccine. Due on due Goal Lipid panel. Due on due Goal Tdap. Due on due Goal Unhealthy drug use screening . Due on due Goal PRAPARE ASSESSMENT. Due on due Goal Influenza vaccine. Due on due Goal Tdap Vaccine. Due on 2023 due Goal Hep A. Due on e Goal Depression screening. Due on due Goal RLP. Due on due Goal Hepatitis C screening. Due o n due Goal Lifestyle education regardin g diet completed Goal Tobacco cessation counseling completed Goal Tobacco [...] eye doctor. Requesting to go to [facility]. He does c/o blurred vision. ANGELO Saravia [...] to establish care. Patient recently moved from [place]. Patient hasn't seen a PCP in roughly [...]
[2025-09-30 14:40] VITALS: BP 133/101; PULSE 126; TEMP 37; O2SAT 96; BMI 33.5
--- NOTE | 2025-09-30 14:46 | ECG_ITS ---
[facility] Test Date: 2025-09-30 Pat Name: TRACIE LOTT Department: Room: - Gender: Male [employer]: : 2000 Requested By: [id number] Order Number: [id number] Reading MD: KHUSHBOO COVARRUBIAS M.D. Measurements Intervals [place] Rate: 126 P: 42 TN: 140 QRS: 90 QRSD: 94 T: 8 QT: 334 QTc: 408 Interpretive Statements 1120 Sinus tachycardia 9140 abnormal rhythm ECG Compared to ECG 09/26/2025 22:37:43 Sinus rhythm no longer present ST (T wave) deviation no longer present Electronically Signed On 09-30-2025 15:09:31 EST by KHUSHBOO COVARRUBIAS M.D.
--- NOTE | 2025-09-30 14:51 | ED.GENADUL1 ---
HPI HPI - General Adult General Chief complaint: Psychiatric Symptoms Stated complaint: ALTERED MENTAL STATUS Time Seen by Provider: 09/30/25 14:46 Source: patient Mode of arrival: walk-in History of Present Illness HPI narrative: 25-year-old male presented to the emergency department for psychiatric evaluation. He apparently has bipolar disorder and has not been taking his medications for about 6 or 8 weeks. He apparently was throwing things in his home and his called paramedics and they brought him here. The patient states he does not really remember that happening. He states he has been hearing voices that have been telling him to kill himself but he keeps telling them no and has not acted on them. He is not currently suicidal. Related Data Home Medications ?Medication ?Instructions ?Recorded ?Confirmed No Known Home Medications 09/27/25 09/27/25 Allergies Allergy/AdvReac Type Severity Reaction Status Date / Time No Known Drug Allergies Allergy Verified 09/27/25 21:08 Opioid HPI Opioid Management Most Recent Opioid Data: Last Pain Scale 2 07/25/25, 15:12 Ur Phencyclidine Scrn, (NEGATIVE) Negative Today, 17:47 Review of Systems ROS Narrative A ten point review of systems is negative except as noted above. [facility] Medical History (Updated 09/30/25 @ 18:08 by Otoniel Henderson MD) Borderline personality disorder ?F60.3 - Borderline personality disorder (ICD-10) Hypertension ?I10 - Essential (primary) hypertension (ICD-10) Social History Little interest or pleasure in doing things: not at all Feeling down, depressed, or hopeless: not at all Exam Narrative Exam Narrative: Nurses note and vital signs reviewed General:The patient appears well and in no apparent distress.Patient is resting comfortably on cart. He is reading when I walk into the room. Skin:Warm, dry, no pallor noted.There is no rash noted. Head:Normocephalic, atraumatic Eye: Normal conjunctiva, no drainage Ears, Nose, Mouth, and Throat: oral mucosa is moist. Nares patent. Cardiovascular:Regular Rate and Rhythm Respiratory:Patient is in no distress, no accessory muscle use, lungs are clear to auscultation, no wheezing, rales or rhonchi Back:non-tender GI: Soft and nontender Musculoskeletal: The patient has no evidence of calf tenderness, no pitting edema, symmetrical pulses noted bilaterally Neurological:A&O x4, normal speech Psychiatric:Cooperative Constitutional Vital Signs, click to edit/add: Last Vital Signs Temp 98.6 F 09/30/25 14:40 Pulse 104 H 09/30/25 18:06 Resp 20 09/30/25 14:40 BP 143/87 H 09/30/25 18:06 Pulse Ox 97 09/30/25 18:06 Course Vital Signs Vital signs: Vital Signs Temperature 98.6 F 09/30/25 14:40 Pulse Rate 126 H 09/30/25 14:40 Respiratory Rate 20 09/30/25 14:40 Blood Pressure 133/101 H 09/30/25 14:40 Pulse Oximetry 96 09/30/25 14:40 Temperature 98.6 F 09/30/25 14:40 Pulse Rate 104 H 09/30/25 18:06 Respiratory Rate 20 09/30/25 14:40 Blood Pressure 143/87 H 09/30/25 18:06 Pulse Oximetry 97 09/30/25 18:06 Medical Decision Making MDM Narrative Medical decision making narrative: The patient is medically cleared and has been seen by mental health services here for placement. Differential Diagnosis Differential Diagnosis: Bipolar disorder, medication noncompliance Lab Data Lab results reviewed: Yes I reviewed the patient's lab results Labs: Lab Results 09/30/25 09/30/25 Range/Units 15:05 17:47 WBC 8.0 (4.0-11.0) 10^3/uL RBC 5.80 (4.70-6.10) 10^6/uL Hgb 18.1 H (14.0-18.0) g/dL Hct 48.4 (42.0-54.0) % MCV 83.4 (80.0-94.0) fL MCH 31.2 (25.9-34.0) pg MCHC 37.4 H (29.9-35.2) g/dL RDW 12.5 (11.0-15.0) % Plt Count 161 (150-450) 10^3/uL MPV 10.0 (9.5-13.5) fL Neut % (Auto) 64.9 (43.0-75.0) % Lymph % (Auto) 27.9 (20.5-60.0) % [place] % (Auto) 5.2 (1.7-12.0) % Eos % (Auto) 0.6 L (0.9-7.0) % Baso % (Auto) 0.4 (0.2-2.0) % Neut # (Auto) 5.2 (1.4-6.5) 10^3/uL Lymph # (Auto) 2.2 (1.2-3.8) 10^3/uL [place] # (Auto) 0.4 (0.3-0.8) 10^3/uL Eos # (Auto) 0.1 (0.0-0.7) 10^3/uL Baso # (Auto) 0.0 (0.0-0.1) 10^3/uL Abs Immat Gran (auto) 0.08 H (0.00-0.03) 10^3/uL Imm/Tot Granulo (auto) 1.0 H (0.0-0.5) % Sodium 134 L (136-145) mmol/L Potassium 4.3 (3.5-5.1) mmol/L Chloride 99 (98-107) mmol/L Carbon Dioxide 23.8 (21.0-32.0) mmol/L Anion Gap 15.5 BUN 19.0 H (7.0-18.0) mg/dL Creatinine 0.96 (0.70-1.30) mg/dL Est GFR ( Amer) >60 (>=60 mL/min/1.73m^2) Est GFR (Non-Af Amer) >60 (>=60 mL/min/1.73m^2) BUN/Creatinine Ratio 19.8 Glucose 360 H (74-106) mg/dL Calcium 9.2 (8.5-10.1) mg/dL Urine Color Lt. yellow (YELLOW) Urine Clarity Clear (CLEAR) Urine pH 5.5 (5.0-9.0) Ur Specific [place] 1.025 (1.005-1.025) Urine Protein 100 A (NEG/TRACE) mg/dL Urine Glucose (UA) >=1000 A (NEGATIVE) mg/dL Urine Ketones 15 A (NEGATIVE) mg/dL Urine Occult Blood Negative (NEGATIVE) Urine Nitrite Negative (NEGATIVE) Urine Bilirubin Negative (NEGATIVE) Urine Urobilinogen 0.2 (0.2-1.0) EU/dL Ur Leukocyte Esterase Negative (NEGATIVE) Urine RBC 0-2 (0-2) #/HPF Urine WBC None seen (NONE SEEN) #/HPF Ur Squamous Epith Cells Rare (NONE/RARE) #/LPF Urine Crystals None seen (None Seen) #/HPF Urine Bacteria None seen (NONE SEEN) #/HPF Urine Casts None seen (NONE SEEN) #/LPF Urine Mucus None seen (NONE SEEN) Salicylates <2.8 (<=19.9) mg/dL Urine Opiates Screen Negative (NEGATIVE) Ur Buprenorphine Scrn Negative (NEGATIVE) Ur Oxycodone Screen Negative (NEGATIVE) Urine Methadone Screen Negative (NEGATIVE) Acetaminophen <2.0 L (10.0-30.0) ug/mL Ur Barbiturates Screen Negative (NEGATIVE) U Tricyclic Antidepress Negative (NEGATIVE) Ur Phencyclidine Scrn Negative (NEGATIVE) Ur Amphetamines Screen Negative (NEGATIVE) U Methamphetamines Scrn Negative (NEGATIVE) U Benzodiazepines Scrn Negative (NEGATIVE) Urine Cocaine Screen Negative (NEGATIVE) U Cannabinoids Screen Positive A (NEGATIVE) Ethanol Quant <3 mg/dL ECG Data Attestation: I personally reviewed and interpreted this ECG as follows: (EKG on my interpretation shows sinus rhythm with rate of 126.) Discharge Plan Discharge Chief Complaint: Psychiatric Symptoms Clinical Impression: Bipolar affective disorder, Noncompliance with medications Patient Disposition: [facility] Time of Disposition Decision: 18:08 Condition: Fair Mode of Transportation: Private Vehicle
[2025-09-30 15:17] LABS: Hematocrit 48.4 % (42.0-54.0); Hemoglobin 18.1 g/dL (14.0-18.0); Immature Granulocytes Abs Auto 0.08 10^3/uL (0.00-0.03); Immature Granulocytes Pct Auto 1.0 % (0.0-0.5); Lymphocytes Absolute Auto 2.2 10^3/uL (1.2-3.8); Mean Corpuscular HGB Conc 37.4 g/dL (29.9-35.2); Mean Corpuscular Hemoglobin 31.2 pg (25.9-34.0); Mean Corpuscular Volume 83.4 fL (80.0-94.0); Platelet Count 161 10^3/uL (150-450); Red Blood Count 5.80 10^6/uL (4.70-6.10); White Blood Count 8.0 10^3/uL (4.0-11.0)
[2025-09-30 15:32] LABS: Anion Gap 15.5; Blood Urea Nitrogen 19.0 mg/dL (7.0-18.0); Calcium 9.2 mg/dL (8.5-10.1); Carbon Dioxide 23.8 mmol/L (21.0-32.0); Chloride 99 mmol/L (98-107); Estimated GFR (African America >60 (>=60 mL/min/1.73m^2); Estimated GFR (Non-African Ame >60 (>=60 mL/min/1.73m^2); Glucose 360 mg/dL (74-106); Potassium 4.3 mmol/L (3.5-5.1); Salicylate <2.8 mg/dL (<=19.9); Sodium 134 mmol/L (136-145)
--- OUTSIDE RECORDS SUMMARY | 2025-09-30 15:34 | XMS_ITS | CCD ---
Author Organization [facility] Care Team Providers Care Kaitara Taraka Name Role Phone Fito Villalobos Primary Care Provider Fito Villalobos Primary Care Provider [phone] FITO VILLALOBOS Referring Unavailable MEENAKSHIPAULAna FITO Primary Care Unavailable LILIA FITO Referring Unavailable LILIA FITO Primary Care Unavailable LILIA FITO Primary Care Unavailable THUMMALAPALLY, RUSHEETH Admitting Unavaila ble THUMMALAPALLY, RUSHEETH Attending Unavaila gail Villalobos Fito Primary Care Provider LILIA FITO Primary Care Unavailable DEGROOT, MARIXA Consulting Unavailable DEGROOT, MARIXA Admitting Unavailable JEAN PIERRE BARTON Attending Unavailable [facility] FIT[facility] Primary Care Unavailable JAMES, YOLANDA Consulting [...] Unavailable RADHA Davey, DR DEE Consulting Unavailable [place], DR CÉSAR Metzger Consulting Unavailable CAYETANO SMITH Consulting Unavailable SHAIKH Joyce KRAFT Consulting Unavailable SISTER, ADRI Consulting Unavailable DIAB ., TELMA Consulting Unavailable RASTEGAR, BRIGITTE Consulting Unavailable WAN ANGEL Attending Unavailable FNANY SOTO Referring Unavailable JOSELINE MOJICA Attending Unavailable [...] DO Manohar Carter Other Provider MD Dayan Prerin Other Provider HAILEE Finley Other Provider HAILEE Correa Other Provider MD Wilfred Moreno Other Provider MD Hudson Turner Other Provider [phone] DO Francisco Javier Lynne T Other Provider [...] Unavailable Tho RN, Latasha Other Provider Unavailable Rbo RN, Alicia Other Provider Unavailable Juan M Beltran MD Other Provider Amber Dillon DO Other Provider Delano Vicente MD Other Provider [phone] Von Roberts DO Other Provider Xuan GALINDO, Flex Other Provider Khoa GALINDO, Sunshine Other Provider [phone] Mauricio Alcazar DO Other Provider [phone] Neymar GALINDO, Ari Other Provider Unavailable Rola Valdes APRN Other Provider Danielle GALINDO, Aryan Other Provider Victor Hugo Menjivar MD Other Provider Helen Hernandez MD Other Provider Unavailable Leti Tucker MD Other Provider Mauricio White DO Other Provider Nubia Dhaliwal MD Other Provider Panchito Ferro MD Other Provider Tarik PE TEACHER-C, Gabriela Cardona Other Provider Veronica Danielle APRN Other Provider Unavailable Ramesh Garcia MD Other Provider Oz Carrillo MD Other Provider Salty Pena MD Other Provider Desi GALINDO, Adry Other Provider Unavailable Tony Wayne MD Other Provider Katie Cantu DO Other Provider Escobar Jones DO Other Provider Lynnette Garcia APRN Other Provider Manohar Carter DO Other Provider [phone] Marychuy GALINDO, Dayan Reina Other Provider [...] Other Provider Ari Hazel MD Other Provider [phone] Kiran GALINDO, Wale Other Provider Nicolasa Cramer APRN Other Provider Nathaniel Garcia APRN Other Provider Saloni Curiel RN Other Provider Unavailable Ceferino Edwards MD Attending Provider [facility] ider Kris Gross MD Attending Provider [phone] Demetria Cifuentes APRN Primary Care Provider Blue Talbot MD Attending Provider [phone] Fish STEPHENS, Annamarie Other Provider Unavailable Olegario [...] Mauricio Alcazar Consulting Unavailable Ari Blackmon Unavailable Roal Valdes Consulting UnavailAryan Bella Consulting Unavailable Victor Hugo Menjivar Consulting Unavailable Helen Hernandez Consulting Unavailable Leti Tucker Consulting Unavailable Mauricio Whiet Consulting Unavailable Nubia Dhaliwal Consulting Unavailable Panchito [...] Shetty Admitting Unavailable Guillermina Shetty Attending Unavailable [facility] Kris Hercules [...] (1 source)Adhesive TapePropensity to adverse reactions to [id number] (1 source)No Known Medication Allergies; 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: [No Known Medication Allergies]Propensity to adverse reactions (disorder)[facility] Rep[facility] (1 source)ADHESIVE TAPE-SILICONES; 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: [ADHESIVE TAPE-SILICONES] Propensity to adverse reactions to drug (disorder)31-57-2708MmrDhjyrq Repository Medications Current Medications MedicationDrug Class(es)DatesSig (Normalized)Sig (Original)Acetaminophen (1 source)Start: 59-79-7165pzfeyshnlrthe (TYLENOL) tablet 650 mgatorvastatin 40 mg oral tablet (3 sources)HMG-CoA Reductase InhibitorStart: 27-97-5001qywv 1 tablet by mouth once dailyatorvastatin (LIPITOR) 40 MG tablet Take 1 tablet by mouth daily 30 tablet 3 08/01/2020 ActiveBlood Sugar Diagnostic (3 sources)Start: 32-53-8510Oxznu Sugar Diagnostic Active 0 .Route 100 June 29, 2024 12:00am to test blood sugar 5 times dailyBlood-Glucose Meter (3 sources)Start: 09-67-8944Tylor-Glucose Meter Active 0 .Route June 29, 2024 12:00am to test blood sugar daily24 hr buPROPion hydrochloride 300 mg extended release oral tablet (20 sources)AminoketoneStart: 84-33-0954glGUMQqyc 300 mg/24 hours ER Tab Refills(s) 0 Start Date: 04/25/24 Status: OrderedStart: 02-15-2024 End: 11-75-5624slvb 1 tablet by mouth once daily in the morningBupropion Hcl (Wellbutrin Xl) 300 mg tablet extended release 24 hr Discontinued 300 MG PO Every morning February 15, 2024 12:00am June 29, 2024 11:14amStart: 12-08-2023 End: 49-39-2456rhpa 1 tablet by mouth once daily in the morningBupropion Hcl 150 mg tablet extended release 24 hr Discontinued 150 MG PO Every morning 2023 4:12pm February 15, 2024 11:03ambusPIRone hydrochloride 5 mg oral tablet (20 sources)Start: 03-31-2025 End: 91-75-7649owgp 1 tablet by mouth twice dailyBuspirone 5 mg tablet Active 5 MG PO Twice daily 60 April 05, 2025 1:26pmStart: 02-15-2024 End: 79-14-0599kgqc 1 tablet by mouth three times dailyBuspirone 15 mg tablet Discontinued 15 MG PO Three times daily February 15, 2024 12:00am July 27, 2024 4:06pmStart: 12-04-2023 End: 49-11-2494saxt 1 tablet by mouth twice dailyBuspirone 5 mg tablet Discontinued 5 MG PO Twice daily December 08, 2023 1:00am February 15, 2024 1 1:03amciprofloxacin 500 mg oral tablet (1 source)Quinolone AntimicrobialStart: 04-25-2024 End: 87-21-4890zvzl 1 tablet by mouth twice daily at mealtimeCipro 500 mg Tab 500 mg = 1 tab(s), Oral, BID, start with first meal after procedure, X 5 day(s), #10 tab(s), Refills(s) 0, Pharmacy: [facility]/pharmacy #[id number], 174, cm, 04/25/24 11:22:00 EDT, Height/Length Dosing, 113.5, kg, 04/25/24 11:22:00 EDT, Weight Dosing Start Date: 04/25/24 Stop Date: 04/30/24 Status: OrdereddiazePAM 10 mg oral tablet (2 sources)BenzodiazepineStart: 46-67-1824xngg 1 tablet by mouth once daily Valium 10 mg Tab 10 mg = 1 tab(s), Oral, Daily, take 30 minutes prior to procedure, # 1 tab(s), Refills(s) 0, Pharmacy: [facility]/pharmacy #[id number], 174, cm, 04/25/24 11:22:00 EDT, Height/Length Dosing, 113.5, kg, 04/25/24 11:22:00 EDT, Weight Dosing Start Date: 04/25/24 Status: Ordered0.3 ml enoxaparin sodium 100 mg/ml prefilled syringe (1 source)Low Molecular Weight HeparinStart: 79-17-0030sltxadnriq (LOVENOX) injection 30 mgescitalopram 20 mg oral tablet (15 sources)Serotonin Reuptake InhibitorStart: 66-73-9145lxys 1 tablet by mouth once daily in the morningEscitalopram Oxalate 20 mg Tablet Active 20 MG PO Every morning 30 April 05, 2025 12:00amStart: 03-31-2025 End: 29-83-4851wpjz 2 tablets by mouth once daily in the morningEscitalopram Oxalate 10 mg Tablet Discontinued 20 MG PO Every morning March 31, 2025 12:00am April 05, 2025 1:57pmStart: 01-09-2025 End: 21-64-6930Iiasgdrvicgw Oxalate 10 mg Tablet Discontinued 15 MG PO Every morning 45 January 09, 2025 12:00am March 31, 2025 1:18pmStart: 01-05-2025 End: 01-64-8491poxj 1 tablet by mouth once daily in the morningEscitalopram Oxalate 10 mg Tablet Discontinued 10 MG PO Every morning January 05, 2025 12:00am January 09, 2025 1:04pmStart: 08-04-2024 End: 75-88-6543Ribsnzimofgq Oxalate 10 mg Tablet Discontinued 15 MG PO Every morning 45 August 04, 2024 12:00am January 05, 2025 6:20pmStart: 18-78-0974rrbz 15 mg by mouth once daily in the morningEscitalopram Oxalate Active 15 MG PO Every morning 45 August 04, 2024 12:00amfamotidine 20 mg oral tablet (3 sources)Histamine-2 Receptor AntagonistStart: 14-50-7402ohrg 1 tablet by mouth twice dailyfamotidine (PEPCID) 20 MG tablet Take 1 tablet by mouth 2 times daily 60 tablet 3 08/01/2020 Activefenofibrate 48 mg oral tablet (20 sources)Peroxisome Proliferator Receptor alpha AgonistStart: 04-01-2025 Fenofibrate Nanocrystallized 48 mg Tablet Active 192 MG PO Daily April 01, 2025 12:00amStart: 08-01-2024 End: 18-40-7684bgtu 1 tablet by mouth once dailyFenofibrate Nanocrystallized 145 mg tablet Discontinued 145 MG PO Daily August 04, 2024 9:13am August 09, 2024 11:42amStart: 89-17-6441jocpydrqczi 145 mg Tab Refills(s) 0 Start Date: 04/25/24 Status: OrderedStart: 02-15-2024 End: 52-07-0238hmgu 1 tablet by mouth once dailyFenofibrate 160 mg tablet Discontinued 160 MG PO Daily February 15, 2024 12:00am March 09, 2024 11:57am Start: 12-08-2023 End: 49-20-0411jnle 1 tablet by mouth once dailyFenofibrate Nanocrystallized 145 mg tablet Discontinued 145 MG PO Daily 90 90 December 08, 2023 3:54pm February 15, 2024 11:05amtake 1 tablet by mouth every twenty-four hoursFenofibrate 160 MG 1 tablet Orally Once a day for 30 days Activeglucagon (rdna) 1 mg injection (1 source)Antihypoglycemic AgentStart: 75-01-0194mdnw 1 mL intravenous route every hour1 mg, Intramuscular, PRN, Low blood sugar, Blood glucose less than 70 mg/dL and patient NOT ALERT or NPO and does not have IV access., Starting 07/30/20 at 2152 After administration, attempt intravenous access and start D5W at 100 mL/hr. Repeat blood glucose in 15 minutes x2 and notify provider.1000 ml glucose 500 mg/ml injection (3 sources)Start: 96-52-900780 g, Oral, PRN, Low blood sugar, Starting [...] glucose in15 minutes x2 and notify provider.Start: 66-75-503010.5 g, Intravenous, PRN, Low blood sugar, Blood [...] using Glucostabilizer, dose as instructed per system.Start: 57-67-3969481 mL/hr, Intravenous, at 100 mL/hr, PRN, Low blood sugar, Starting 07/30/20 at 2152 Start infusion following administration of dextrose 50% or glucagon.hydrOXYzine hydrochloride 50 mg oral tablet (5 sources)AntihistamineStart: 2020 End: 02-00-8208idcm 1 tablet by mouth three times daily as needed for anxiety hydrOXYzine (ATARAX) 50 MG tablet Take 1 tablet by mouth 3 times daily as needed for Anxiety 45 tablet 0 2020 03/16/2020 Activetake 1 capsule by mouth four times daily as neededhydrOXYzine (VISTARIL) 50 MG capsule Take 50 mg by mouth 4 times daily as needed for Itching 0 Active End: 34-67-0477QQAIXFJXWDB HCL PO Take by mouth 0 08/01/2020 Discontinued (Stop Taking at Discharge)3 ml insulin glargine 100 unt/ml pen injector (11 sources)Insulin AnalogStart: 57-97-6673Dwrwnln Glargine (Lantus Solostar U- 100 Insulin) 100 unit/mL (3 mL) Insulin Pen Active 20 UNIT SUBCUT Daily 6 30 April 05, 2025 12:00amStart: 84-39-8337Iiwafcl Glargine (Lantus Solostar U-100 Insulin) 100 unit/mL (3 mL) insulin pen Active 35 UNIT SUBCUT Every evening January 05, 2025 12:00amStart: 06-29-2024 End: 60-39-7083Ycawcav Glargine (Lantus Solostar U-100 Insulin) 100 unit/mL (3 mL) insulin pen Discontinued 36 UNIT SUBCUT Every evening 10.8 30 June 29, 2024 2:21pm January 05, 2025 6:39pm3 ml insulin lispro 100 unt/ml cartridge (7 sources)Insulin AnalogStart: 56-49-3876Wyrhnbk Lispro (Humalog U-100 Insulin) 100 unit/mL cartridge Active 0 sliding scale dose SUBCUT As Directed March 31, 2025 12:00am Please contact the information source for Protocol details.Start: 41-55-4335Aeepfpg Lispro KwikPen 100 units/mL injectable solution Refills(s) [...] Insulin) 100 unit/mL insulin pen (18 sources)Start: 37-75-0347Qesfzuk Lispro (Humalog Kwikpen Insulin) 100 unit/mL insulin pen Active 12 UNIT SUBCUT THREE TIMES DAILY WITH MEALS June 29, 2024 11:22amStart: 00-52-1636Looswug Lispro (Humalog Kwikpen Insulin) 100 unit/mL insulin pen Active 1 sliding scale dose SUBCUTUse as Directed June 29, 2024 11:22am 12 units with each meal 150-200 - 3 units 200-330 - 6 units 330-399 - 9 units > 400 - 12 unitsStart: 12-08-2023 End: 53-51-3361Cgcejir Lispro (Humalog Kwikpen Insulin) 100 unit/mL insulin pen Discontinued 1 sliding scale dose SUBCUT Use as Directed December 08, 2023 1:00am June 29, 2024 11:23amStart: 96-61-0646Tpycbin Lispro (Humalog Kwikpen Insulin) 100 unit/mL insulin pen Active 1 sliding scale dose SUBCUTUse as Directed December 08, 2023 1:00amStart: 85-72-7390Exqpwgd Lispro (Humalog Kwikpen Insulin) 100 unit/mL insulin pen Active 1 sliding scale dose SUBCUTUse as Directed December 08, 2023 12:00amlamoTRIgine 25 mg oral tablet (16 sources)Mood Stabilizer, Anti-epileptic AgentStart: 08-04-2024 End: 73-25-9232umlh 1 tablet by mouth twice dailyLamotrigine 25 mg Tablet Active 25 MG PO Twice daily April 05, 2025 1:26pmStart: 94-49-1910TsSBKyuf 25 MG Oral Tablet 02/14/2020 Provider: Fito Villalobos CNPlisinopril 2.5 mg oral tablet (1 source)Angiotensin Converting Enzyme InhibitorStart: 84-59-2331syqa 1 tablet by mouth once dailyLisinopril 2.5 mg Tablet Active 2.5 MG PO Daily 30 April 05, 2025 12:00ammeloxicam 7.5 mg oral tablet (3 sources)Nonsteroidal Anti-inflammatory DrugStart: 49-84-1285Uwisd 7.5 MG Oral Tablet 02/14/2020 Provider: Fito Villalobos CNPnicotine 2 mg chewing gum (2 sources)Cholinergic Nicotinic AgonistStart: 05-96-1585Cpqbwpdi (Polacrilex) 2 mg Gum Active 4 MG BUCCAL Q2H as needed for Nicotine Cravings March 12:00amStart: 71-24-5435jatjdqbj polacrilex (NICORETTE) gum 2 mgpolyethylene glycol 3350 92414 mg powder for oral solution (1 source)Osmotic LaxativeStart: g, Oral, DAILY PRN, Constipation, Starting 07/30/20 at 2152 First line therapy for constipationprazosin 2 mg oral capsule (20 sources)alpha-Adrenergic BlockerStart: 03-31-2025 End: 58-02-8096kuxs 1 capsule by mouth at bedtimePrazosin 2 mg capsule Active 2 MG PO Bedtime 30 April 05, 2025 1:26pmStart: 01-05-2025 End: 47-90-7740ubfj 1 capsule by mouth at bedtimePrazosin 2 mg capsule Discontinued 2 MG PO Bedtime January 05, 2025 12:00am January 05, 2025 6:39pm Start: 03-03-2024 End: 25-48-2868evnx 2 mg by mouth once daily at bedtimePrazosin Discontinued 2 MG PO Daily at bedtime March 03, 2024 1:11pm July 27, 2024 4:07pmStart: 02-15-2024 End: 55-13-1007mpfe 1 capsule by mouth once daily at bedtimePrazosin 1 mg capsule Discontinued 2 MG PO Daily at bedtime March 03, 2024 1:11pm July 27, 2024 4:07pmPromethazine (1 source)PhenothiazineStart: 52-24-7165vebozjlkodos (PHENERGAN) tablet 12.5 mg sertraline 50 mg oral tablet (1 source)Serotonin Reuptake InhibitorStart: 24-47-9299oitw 1 tablet by mouth once dailysertraline (ZOLOFT) 50 MG tablet Take 1 tablet by mouth daily 30 tablet 3 08/06/2020 ActiveStart: 88-33-2875qwxs 1 tablet by mouth once daily sertraline (ZOLOFT) 50 MG tablet Take 1 tablet by mouth daily 30 tablet 3 08/06/2020 Eadueg9014 ml sodium chloride 9 mg/ml injection (4 sources)Start: 15-97-467843 mL, Intravenous, EVERY 12 HOURS SCHEDULED (2 times per day), First dose on 07/30/20 at 2200Start: 63-71-5118gyik 10 mL intravenous route once as hpbxyb96 mL, Intravenous, PRN, Line Care, After every IV line use, Starting Thu07/30/20 at 2152Start: 07-30-2020 End: 80-15-8670Hdnilqvanxp, at 75 mL/hr, CONTINUOUS, Starting Thu07/30/20 at 2200traZODone hydrochloride 150 mg oral tablet (11 sources)Serotonin Reuptake InhibitorStart: 01-05-2025 End: 68-71-4183ziuo 1 tablet by mouth at bedtimeTrazodone 150 mg tablet Active 150 MG PO Bedtime April 05, 2025 1:26pmStart: 11-19-9027uysa 1 tablet by mouth once daily as needed for sleeptraZODone (DESYREL) 50 MG tablet Take 1 tablet by mouth nightly as needed for Sleep 30 tablet 0 2020 Active Completed/Discontinued Medications MedicationDrug Class(es)DatesSig (Normalized)Sig (Original)[id number] 200 actuat albuterol 0.09 mg/actuat metered dose inhaler (10 sources)beta2-Adrenergic AgonistStart: 12-11-2023 End: 78-09-1114hapa 1 puff(s) by inhalation four times daily as needed for wheezingAlbuterol Sulfate 90 mcg/actuation HFA aerosol inhaler Discontinued 2 PUFF INHALATION Four times daily as needed for shortness of breath or wheezing 8.5 December 11, 2023 1:00am July 27, 2024 4:05pmARIPiprazole 400 mg extended release prefilled syringe (13 sources)Atypical AntipsychoticStart: 01-09-2025 End: 93-92-3849jffm 1 tablet by mouth once dailyAripiprazole 5 mg Tablet Discontinued 5 MG PO Daily January 09, 2025 12:00am March 31, 2025 1:17pm Start: 01-09-2025 End: 74-18-5623Vaqrxhxtsyhb (Abilify Maintena) 400 mg Suspension,Extended Rel Syring Discontinued 400 MG IM Q28D 1M2024 12:00am April 05, 2025 1:57pmStart: 2020 End: 63-73-5490jguc 1 tablet by mouth once dailyARIPiprazole (ABILIFY) 2 MG tablet Take 1 tablet by mouth daily 30 tablet 0 2020 07/31/2020 Di scontinued (LIST CLEANUP) End: 24-30-3776dbrp 1 tablet by mouth once dailyARIPiprazole (ABILIFY) 10 MG tablet Take 10 mg by mouth daily 0 08/05/2020 Discontinued (Stop Taking at Discharge) End: 42-01-8271nwff 1 tablet by mouth once dailyARIPiprazole (ABILIFY) 5 MG tablet Take 5 mg by mouth daily 0 08/01/2020 Discontinued (Stop Taking at Discharge)atomoxetine 40 mg oral capsule (17 sources)Norepinephrine Reuptake InhibitorStart: 07-27-2024 End: 42-14-7393lfkg 1 capsule by mouth once dailyAtomoxetine 40 mg capsule Discontinued 40 MG PO Daily July 27, 2024 4:12pm January 05, 2025 6:21pmStart: 06-29-2024 End: 85-29-1411mslr 1 capsule by mouth once dailyAtomoxetine (Strattera) 25 mg capsule Discontinued 25 MG PO Daily June 29, 2024 12:00amJuly 27, 2024 4:13pmStart: 42-69-4351ebcnalotmdo 40 mg Cap Refills(s) 0 Start Date: 04/25/24 Status: Orderedazithromycin 250 mg oral tablet (12 sources)Macrolide AntimicrobialStart: 12-11-2023 End: 98-76-5864phnh 2 tablets by mouth once daily, then take 1 tablet by mouth once dailyAzithromycin (Zithromax Z-Maximino) 250 mg tablet Discontinued 250 MG PO Daily 03 30December 11, 2023 1:00am February 15, 2024 10:58am take 2 tabs today and 1 daily for the next 4 daysStart: 42-97-8762nmmg 2 tablets by mouth once at mealtimeAzithromycin 600 MG 2 tablets Orally once for 1 days Take 2 tablets p.o. with food on Sep, Not-Taking/PRNbenzonatate 200 mg oral capsule (10 sources)Non-narcotic AntitussiveStart: 12-11-2023 End: 38-04-4423Ncicwocjavk 200 mg capsule Discontinued 200 MG PO 2-3 TIMES PER DAY as needed for cough 2023 1:00am February 15, 2024 10:58am Blood-Glucose Meter kit (4 sources)Start: 06-29-2024 End: 16-09-5844Ekffn-Glucose Meter kit Discontinued 0 .Route June 29, 2024 12:00am April 05, 2025 1:57pm to test blood sugar dailyStart: 06-29-2024 Blood-Glucose Meter kit Active 0 .Route 1 June 29, 2024 12:00am to test blood sugar dailycefTRIAXone (3 sources)Cephalosporin AntibacterialStart: 69-29-9753Hdkgliwp 500 mg Sep, 500 mgcephalexin 500 mg oral capsule (9 sources)Cephalosporin AntibacterialStart: 03-03-2024 End: 66-77-5955wwpv 1 capsule by mouth twice dailyCephalexin 500 mg capsule Discontinued 500 MG PO Twice daily 14 March 03, 2024 12:00am June 29, 2024 10:40amcinnamon bark 500 mg oral capsule (10 sources)Start: 02-15-2024 End: 87-96-3663emty 1 capsule by mouth once dailyCinnamon Bark (Cinnamon) 500 mg capsule Discontinued 1000 MG PO Daily February 15, 2024 12:00am July 27, 2024 4:06pmDULoxetine 30 mg delayed release oral capsule (3 sources)Serotonin and Norepinephrine Reuptake InhibitorStart: 2020 End: 33-99-4386wmxn 3 capsules by mouth once dailyDULoxetine (CYMBALTA) 30 MG extended release capsule Take 3 capsules by mouth daily 90 capsule 0 2020 08/05/2020 Discontinued (Stop Taking at Discharge)etodolac 400 mg oral tablet (9 sources)Nonsteroidal Anti-inflammatory DrugStart: 03-03-2024 End: 42-61-5493wpnt 1 tablet by mouth twice dailyEtodolac 400 mg tablet Discontinued 400 MG PO Twice daily 60 30 March 03, 2024 12:00am July 27, 2024 4:07pmFenofibrate Nanocrystallized (8 sources)Start: 03-09-2024 End: 06-52-4384dokr 1 tablet by mouth once dailyFenofibrate Nanocrystallized Discontinued 0 .ROUTE .COMPLEX March 09, 2024 1:54pm July 27, 2024 4:06pm TAKE 1 TABLET BY MOUTH EVERY DAYStart: 03-65-0587ieof 1 tablet by mouth once dailyFenofibrate Nanocrystallized Active 0 .ROUTE .COMPLEX 90 March 09, 2024 1:54pm TAKE 1 TABLET BY MOUTH EVERY DAYStart: 03-09-2024 End: 48-56-7796jxww 145 mg by mouth once dailyFenofibrate Nanocrystallized Discontinued 145 MG PO Daily March 09, 2024 12:00am March 09, 2024 1:54pm Fenofibrate Nanocrystallized 145 mg tablet (12 sources)Start: 08-09-2024 End: 80-06-9016xcit 1 tablet by mouth once dailyFenofibrate Nanocrystallized 145 mg tablet Discontinued 0 .ROUTE .COMPLEX August 09, 2024 11:42am January 05, 2025 6:21pm TAKE 1 TABLET BY MOUTH EVERY DAYStart: 03-09-2024 End: 86-95-5560ujeh 1 tablet by mouth once dailyFenofibrate Nanocrystallized 145 mg tablet Discontinued 0 .ROUTE .COMPLEX March 09, 2024 1:54pm July 27, 2024 4:06pm TAKE 1 TABLET BY MOUTH EVERY DAYStart: 03-09-2024 End: 05-25-5855yail 1 tablet by mouth once dailyFenofibrate Nanocrystallized 145 mg tablet Discontinued 145 MG PO Daily March 09, 2024 12:00am March 09, 2024 1:54pmgabapentin 300 mg oral capsule (12 sources)Anti-epileptic AgentStart: 02-15-2024 End: 47-93-2404kgbv 1 capsule by mouth three times dailyGabapentin 300 mg capsule Discontinued 300 MG PO Three times daily February 15, 2024 12:00am 2023 4:06pminsulin detemir 100 unt/ml injectable solution (20 sources)Insulin AnalogStart: 12-08-2023 End: 24-65-7119afjmgj 36 [IU] by subcutaneous injection once daily at bedtime Insulin Detemir U-100 (Levemir U-100 Insulin) 100 unit/mL solution Discontinued 36 UNIT SUBCUT Daily at bedtime 10.8 30 June 29, 2024 10:55am June 29, 2024 2:23pmLevemir FlexPen 100 UNIT/ML 36 units Subcutaneous nightly for 90 days Activemelatonin 10 mg oral capsule (12 sources)Start: 02-15-2024 End: 38-88-3991cmfc 1 capsule by mouth once daily at bedtime as neededMelatonin 10 mg capsule Discontinued 10 MG PO Daily at bedtime as needed February 15, 2024 12:00am July 27, 2024 4:07pmmetFORMIN hydrochloride 1000 mg oral tablet (7 sources)BiguanideStart: 01-05-2025 End: 42-26-6966hdif 1 tablet by mouth twice dailyMetformin 1,000 mg tablet Discontinued 1000 MG PO Twice daily January 05, 2025 12:00am March 31, 2025 1:22pmStart: 03-20-7619mygk 1 tablet by mouth twice daily at mealtimemetFORMIN (GLUCOPHAGE) 1000 MG tablet Take 1 tablet by mouth 2 times daily (with meals) 60 tablet Active End: 15-40-5831qupu 500 mg by mouth twice daily at mealtimeMETFORMIN HCL PO Take 500 mg by mouth 2 times daily (with meals) 0 08/05/2020 Discontinued (Stop Andre ing at Discharge)methylPREDNISolone 4 mg oral tablet (10 sources)CorticosteroidStart: 12-11-2023 End: 14-15-8883grxi 1 tablet by mouth onceMethylprednisolone (Medrol (Maximino)) 4 mg tablets,dose pack Discontinued 0 PO per package directions 1February 2023 1:00am February 15, 2024 10:58am PO PER PKG DIR for 6 daysmetroNIDAZOLE 500 mg oral tablet (2 sources)Nitroimidazole AntimicrobialStart: 06-44-0554qmdl 4 tablets by mouth once at mealtimemetroNIDAZOLE 500 MG 4 tablets Orally once for 1 days Take all 4 tablets by mouth with food on Sep, Not-Taking/PRNStart: 38-75-9013rihf 4 tablets by mouth once at mealtimemetroNIDAZOLE 500 MG 4 tablets Orally once for 1 days Take all 4 tablets by mouth with food on Sep, Activenaproxen 500 mg oral tablet (5 sources)Nonsteroidal Anti-inflammatory DrugStart: 08-04-2024 End: 92-63-7459eoch 1 tablet by mouth twice daily at mealtimeNaproxen 500 mg Tablet Discontinued 500 MG PO Twice daily with meals 60 August 04, 2024 12:00am January 05, 2025 6:21pmtiZANidine 4 mg oral tablet (20 sources)Central alpha-2 Adrenergic AgonistStart: 08-04-2024 End: 96-13-4558wgdw 6 mg by mouth twice daily as neededTizanidine 4 mg Tablet Discontinued 6 MG PO Twice daily as needed for muscle spasticity August 04, 2024 12:00am January 05, 2025 6:21pmStart: 49-36-1933nrzz 6 mg by mouth twice dailyTizanidine Active 6 MG PO Twice daily August 04, 2024 12:00amStart: 08-01-2024 End: 14-38-5541gkbu 4 mg by mouth once daily at bedtime as neededTizanidine 6 mg capsule Discontinued 4 MG PO Daily at bedtime as needed for muscle spasticity August 01, 2024 12:00am August 03, 2024 9:47amStart: 08-01-2024 End: 63-64-1548wryo 4 mg by mouth once daily at bedtimeTizanidine Discontinued 4 MG PO Daily at bedtime August 01, 2024 12:00am August 03, 2024 9:47amStart: 07-27-2024 End: 02-98-0306prcz 1 capsule by mouth once daily at bedtime as neededTizanidine 6 mg capsule Discontinued 6 MG PO Daily at bedtime as needed for muscle spasticity 90 90October 2023 12:19pm August 01, 2024 11:58amStart: 06-29-2024 End: 09-37-5986elev 2 capsules by mouth once daily at bedtimeTizanidine 2 mg capsule Discontinued 4 MG PO Daily at bedtime as needed for muscle spasticity 60 30Sept2023 12:00am July 27, 2024 4:15pm take 1-2 at bedtime Start: 06-29-2024 End: 90-96-0633ftis 4 mg by mouth once daily at bedtimeTizanidine Discontinued 4 MG PO Daily at bedtime 60 30 June 29, 2024 12:00am July 27, 2024 4:15pm take 1-2 at bedtimevalACYclovir 1000 mg oral tablet (2 sources)Herpesvirus Nucleoside Analog DNA Polymerase Inhibitor, Herpes Simplex Virus Nucleoside Analog DNA Polymerase Inhibitor, Herpes Zoster Virus Nucleoside Analog DNA Polymerase InhibitorStart: 04-11-2028jmec 1 tablet by mouth every twelve hoursvalACYclovir HCl 1 GM 1 tablet Orally 2 times a day for 10 day(s) Sep, Not-Taking/PRNStart: 95-39-3574cste 1 tablet by mouth every twelve hoursvalACYclovir HCl 1 GM 1 tablet Orally 2 times a day for 10 day(s) Sep, Active Problems Active Problems Problem ClassificationProblemDateDocumented DateEpisodic/ChronicAdjustment disorders (13 sources)Adjustment disorder with anxious mood; 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: [Adjustment disorder with anxiety]76-94-2063XcwsovmQkngzii-related disorders (3 sources)Alcohol abuse, in remission; 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: [Alcohol dependence, in remission]Onset: 68-55-3219BnwnrgcAyenice disorders (4 sources)Posttraumatic stress disorder; 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: [Anxiety]Onset: 88-70-2584MfoxgszBooufhlht-deficit conduct and disruptive behavior disorders (12 sources)Attention deficit hyperactivity disorder; 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: [Attention- deficit hyperactivity disorder, unspecified type]Onset: ChronicAttention-deficit, conduct, and disruptive behavior disorders (6 sources)Attention-deficit hyperactivity disorder, unspecified type; 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: [Attention deficit disorder with hyperactivity]45-72-2037Fayhfrn Cardiac dysrhythmias (1 source)Tachycardia, unspecified; 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: [TACHYCARDIA UNSPECIFIED] Onset: 03-89-6209DmynizrgPbajrxr obstructive pulmonary disease and bronchiectasis (12 sources)Bronchitis; 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: [Bronchitis, not specified as acute or chronic]34-12-0507QducyrgxEurohhyafytvm and procreative management (1 source)Contraception status; 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: [Encounter for other general counseling and advice on contraception]Onset: 59-49-1861ArmaylrkBidjfbtqgj and other anemia (1 source)Iron deficiency anemia, unspecified; 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: [IRON DEFICIENCY ANEMIA UNSPECIFIED]Onset: 05-66-4576QikbjiyuOcnsoddb mellitus with complications (7 sources)Type 2 diabetes mellitus with hyperglycemia; 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: [Other specified diabetes mellitus with hyperglycemia]Onset: 36-94-7617LrsycwlMpmokmhk mellitus without complication (20 sources)Diabetes mellitus; 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: [Type 2 diabetes mellitus without complications]Onset: 242704-58-7709MxrxpflIlyobebrm of lipid metabolism (20 sources)Hypertriglyceridemia; 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: [Pure hyperglyceridemia]Onset: 861445-24-3518QuhnjtoEykznbsrascmp symptoms and ill-defined conditions (3 sources)Increased frequency of urination; 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: [Frequency of micturition]Onset: 24-62-8225UsloiimrSvosbigj; including migraine (4 sources)Migraine; 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: [Other migraine, not intractable, without status migrainosus]Onset: 715391-73-3371FsiopgqMxqf disorders (20 sources)Bipolar disorder; 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: [Unspecified mood [affective] disorder]Onset: 988909-82-6020TcvgddoQuqu disorders (1 source)Mood disorders; 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: [Depression, unspecified]Onset: 93-29-1103Yeqqqryjhzf chest pain (3 sources)Chest pain, unspecified; 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: [Chest pain]Onset: 05-09-2025 EpisodicOsteoarthritis (2 sources)Facqnbnoj54-42-7749SdtxbdzDydhr aftercare (1 source)Long-term current use of insulin; 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: [long-term (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]EpisodicOther nervous system disorders (1 source)Chronic pain; 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: [Other chronic pain]ChronicOther nervous system disorders (2 sources)Other chronic pain; 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: [Other chronic pain]Onset: 64-50-6649EelyermFbttw nervous system disorders (9 sources)Neuropathy; 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: [Polyneuropathy, unspecified]02-16-2024 ChronicOther nervous system disorders (8 sources)Polyneuropathy, unspecified; 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: [Mononeuritis of unspecified site]96-29-8555UiooycvKcimq nervous system disorders (4 sources)Toxic metabolic encephalopathy; 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: [Toxic metabolic encephalopathy]Onset: 275004-04-8165XfhkqlmwNkoep non-traumatic joint disorders (3 sources)Knee pain; 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: [Arthralgia - Knee / Patella / Tibia / Fibula]Onset: 85-07-2401KkhhioyfVtnkb non-traumatic joint disorders (12 sources)Pain in left [...] diabetes mellitus; 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: [Diabetes Risk Test Score]Onset: 24-37-6646BchcnsmjQlueiustqm disorders (not diabetes) (3 sources)Acute pancreatitis without necrosis or infection, unspecified; 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: [ACUTE PANCREATITIS WONECRS/INF UNS]Onset: 51-10-1467Vhghzdrz Personality disorders (1 source)Borderline personality disorder; 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: [Borderline personality disorder]Onset: 847936-51-0742NuuipcfGonwugukv by other medications and drugs (4 sources)Intentional drug overdose; 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: [Suicide attempt by multiple drug overdose]Onset: 395794-43-4221RaenwnzjZdwxqhja codes; unclassified (1 source)High risk heterosexual behaviorEpisodicResidual codes; unclassified (17 sources)Noncompliance with treatment; 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: [Noncompliance] 43-16-7688ZjkerezwOhbp and subcutaneous tissue infections (10 sources)Cellulitis of neck; 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: [Cellulitis of neck]03-03-2024 EpisodicSubstance-related disorders (7 sources)Nicotine dependence; 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: [Cannabis abuse, uncomplicated] Onset: 798604-27-2783ChojzloEqwufsf on above:Added secondary to documentation in Social History.Substance-related disorders (2 sources)Cannabis use, unspecified, uncomplicated; 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: [Cannabis use, unspecified, uncomplicated]Onset: 66-63-5658HumkuornIrvvnaqrxvfa (1 source)CONTACT W/AND (SUSP) EXPOS COVID-19; 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: [CONTACT W/AND (SUSP) EXPOS COVID-19]Onset: 14-30-9747Krevsnucbeoc (1 source)Patient's noncompliance with other medical treatment and regimen due to unspecified reason; 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: [Patient's noncompliance with other medical treatment and regimen due to unspecified reason]Onset: 73-50-2303Txoed infection (15 sources)Genital herpes simplex; 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: [Herpesviral infection of urogenital system, unspecified]Chronic Past or Other Problems Problem ClassificationProblemDateDocumented DateEpisodic/ChronicHeadache; including migraine (1 source)Headache; including migraineOther aftercare (4 sources)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.] by Manas Nunn MD on 05/09/2025 9:29 [facility] HospitalGlucose Glucometer (BldC) [Mass/Vol]Ordered By: Blue Talbot on 28-85-9226Pnbaigv [Mass/Vol]Capillary blood glucose measurement by glucometer (mass/volume)[facility] Medical CenterComment on above:Random Glucose Reference Range is dependent on time and content of last meal. Glucose of more than 200 mg/dL in a nonstressed, ambulatory subject supports the diagnosis of Diabetes Mellitus.Glucose Poct Glucometerson 24-79-7910Kiqckra [Mass/Vol]196 mg/dLNoUNC Hospitals Hillsborough Campus Physician GroupComment on above:Result Comment: Random Glucose Reference Range is dependent on time and content of last meal. Glucose of more than 200 mg/dL in a nonstressed, ambulatory subject supports the diagnosis of Diabetes Mellitus. PERFORMED BY: [place] [id number] PATHOLOGIST MANAGER OPERATIONS RESEARCH BRAEDEN COLE M.D.Performed By: #### GLULS #### Point of Care testing ,Fjuxhfo4Ufl0: Cleaned MeterTampa General Hospital Physician GroupComment on above: Result Comment: PERFORMED BY: [facility] [address] [place] [address] PATHOLOGIST MANAGER OPERATIONS RESEARCH BRAEDEN COLE M.D.Performed By: #### GLULS #### Point of Care testing ,Glucose [Mass/Vol]246 mg/dLTampa General Hospital Physician GroupComment on above: Result Comment: Random Glucose Reference Range is dependent on time and content of last meal. Glucose of more than 200 mg/dL in a nonstressed, ambulatory subject supports the diagnosis of Diabetes Mellitus.Performed By: #### GLULS #### Point of Care testing ,No Panel InformationOrdered By: Blue Talbot on 51-79-7051Xwtuwdc Glucose CommentGlu2: cleaned [facility] CenterGlucose Poct Glucometerson 03-77-4583Acnvlrt [Mass/Vol]239 mg/dLNoUNC [facility]als Hills[facility] Campus Physician GroupComment on above:Result Comment: Random Glucose Reference Range is dependent on time and content of last meal. Glucose of more than 200 mg/dL in a nonstressed, ambulatory subject supports the diagnosis of Diabetes Mellitus. PERFORMED BY: [place] [address] PATHOLOGIST MANAGER OPERATIONS RESEARCH BRAEDEN COLE M.D.Performed By: #### GLULS #### Point of Care testing ,Glucose [Mass/Vol]212 mg/dLTampa General Hospital Physician GroupComment on above: Result Comment: Random Glucose Reference Range is dependent on time and content of last meal. Glucose of more than 200 mg/dL in a nonstressed, ambulatory subject supports the diagnosis of Diabetes Mellitus. PERFORMED BY: [place] [address] PATHOLOGIST MANAGER OPERATIONS RESEARCH BRAEDEN COLE M.D.Performed By: #### URDS, ADDONUAPLUS #### [place] [address] KMOBnjszdx1Ins3: Cleaned MeterNoUNC Hospitals Hills[facility] Campus Physician GroupComment on above:Result Comment: PERFORMED BY: [place] [address] PATHOLOGIST MANAGER OPERATIONS RESEARCH BRAEDEN COLE M.D.Performed By: #### GLULS #### Point of Care testing ,Glucose [Mass/Vol]234 mg/dLNoUNC [facility]als [facility] Physician GroupComment on above: Result Comment: Random Glucose Reference Range is dependent on time and content of last meal. Glucose of more than 200 mg/dL in a nonstressed, ambulatory subject supports the diagnosis of Diabetes Mellitus.Performed By: #### GLULS #### Point of Care testing ,Ybrlkhq9Iqw6: Cleaned MeterNoUNC Hospitals Hillsborough Campus Physician GroupComment on above: Result Comment: PERFORMED BY: [place] [address] PATHOLOGIST MANAGER OPERATIONS RESEARCH BRAEDEN COLE M.D.Performed By: #### URDS, ADDONUAPLUS #### [place] [address] USAGlucose [Mass/Vol]255 mg/dLNoUNC [facility]als [facility] Physician GroupComment on above:Result Comment: Random Glucose Reference Range is dependent on time and content of last meal. Glucose of more than 200 mg/dL in a nonstressed, ambulatory subject supports the diagnosis of Diabetes Mellitus.Performed By: #### URDS, ADDONUAPLUS #### [place] [address] USAGlucose Poct Glucometerson 55-23-5146Lyuudjv0Xms7: Cleaned MeterNoUNC [facility]als [facility] Physician GroupComment on above:Result Comment: PERFORMED BY: [place] [address] PATHOLOGIST MANAGER OPERATIONS RESEARCH BRAEDEN COLE M.D.Performed By: #### GLULS #### Point of Care testing ,Glucose [Mass/Vol]230 mg/dLTampa General Hospital Physician GroupComment on above: Result Comment: Random Glucose Reference Range is dependent on time and content of last meal. Glucose of more than 200 mg/dL in a nonstressed, ambulatory subject supports the diagnosis of Diabetes Mellitus.Performed By: #### GLULS #### Point of Care testing ,Sutqocf5Owi2: Cleaned MeterNoUNC Hospitals Hills[facility] Campus Physician GroupComment on above: Result Comment: PERFORMED BY: [place] [address] PATHOLOGIST MANAGER OPERATIONS RESEARCH BRAEDEN COLE M.D.Performed By: #### GLULS #### Point of Care testing ,Glucose [Mass/Vol]236 mg/dLTampa General Hospital Physician GroupComment on above: Result Comment: Random Glucose Reference Range is dependent on time and content of last meal. Glucose of more than 200 mg/dL in a nonstressed, ambulatory subject supports the diagnosis of Diabetes Mellitus.Performed By: #### GLULS #### Point of Care testing ,Glucose [Mass/Vol]175 mg/dLTampa General Hospital Physician GroupComment on above: Result Comment: Random Glucose Reference Range is dependent on time and content of last meal. Glucose of more than 200 mg/dL in a nonstressed, ambulatory subject supports the diagnosis of Diabetes Mellitus. PERFORMED BY: [place] [address] PATHOLOGIST MANAGER OPERATIONS RESEARCH BRAEDEN COLE M.D.Performed By: #### GLULS #### Point of Care testing ,Pamhiug1Ybg8: Cleaned MeterNoUNC [facility]als [facility] Physician GroupComment on above: Result Comment: PERFORMED BY: [place] [address] PATHOLOGIST MANAGER OPERATIONS RESEARCH BRAEDEN COLE M.D.Performed By: #### GLULS #### Point of Care testing ,Glucose [Mass/Vol]278 mg/dLTampa General Hospital Physician GroupComment on above: Result Comment: Random Glucose Reference Range is dependent on time and content of last meal. Glucose of more than 200 mg/dL in a nonstressed, ambulatory subject supports the diagnosis of Diabetes Mellitus.Performed By: #### GLULS #### Point of Care testing ,Alanine aminotransferase [Enzymatic activity/volume] in Serum or PlasmaOrdered By: Rola Valdes on 10-73-2346TJY [Catalytic activity/Vol]Alanine aminotransferase [Enzymatic activity/volume] in Serum or Plasma7[facility] Medical CenterAlbumin [Mass/volume] in Serum or Plasma by Bromocresol green (BCG) dye binding methoOrdered By: Rola Valdes on 04-02-2025 Albumin BCG dye [Mass/Vol]Albumin [Mass/volume] in Serum or Plasma by Bromocresol green (BCG) dye binding metho3.5-5.7FMercy HospitalAlkaline phosphatase [Enzymatic activity/volume] in Serum or PlasmaOrdered By: Rola Valdes on 46-19-4228NFP [Catalytic activity/Vol]Alkaline phosphatase [Enzymatic activity/volume] in Serum or Jhdoxv14-963RfuynbiciOhiohealth Grant Medical CenterApolipoprotein Bon 79-90-2926Fblcshsnqbqewg B [Mass/Vol] 83 mg/dLNormal<90The [facility] Physician GroupComment on above:Result Comment: Desirable < 90 Borderline High 90 - 99 High 100 - 130 Very High >130 ASCVD RISK THERAPEUTIC TARGET CATEGORY APO B (mg/dL) Very High Risk <80 (if extreme risk <70) High Risk <90 Moderate Risk <90 Performed at: [facility] [id number] Cyber Ops Planner: Jermaine Perdomo MD, Phone: [phone] PERFORMED BY: [facility] [address] [place] [address] PATHOLOGIST MANAGER OPERATIONS RESEARCH BRAEDEN COLE M.D.Performed By: #### GLULS #### Point of Care testing ,Aspartate aminotransferase [Enzymatic activity/volume] in Serum or Plasma Ordered By: Rola Valdes on 24-52-5616YPR [Catalytic activity/Vol] Aspartate aminotransferase [Enzymatic activity/volume] in Serum or PlasmaLow 13-39Ohio[facility] Medical CenterBilirubin.total [Mass/volume] in Serum or PlasmaOrdered By: Rola Valdes on 29-26-6192Ynoppxrla [Mass/Vol] Bilirubin.total [Mass/volume] in Serum or Plasma0.3-1.0[facility] CenterCalcium [Mass/volume] in Serum or PlasmaOrdered By: Rola Valdes on 00-71-3026Qmnqtet [Mass/Vol]Calcium [Mass/volume] in Serum or Plasma8.6-10.3FMercy HospitalCarbon dioxide, total [Moles/volume] in Serum or PlasmaOrdered By: Rola Valdes on 04-02-2025 CO2 [Moles/Vol]Carbon dioxide, total [Moles/volume] in Serum or Tlgoqi84.0-31.0 [facility] CenterChloride [Moles/volume] in Serum or Plasma Ordered By: Rola Valdes on 74-41-0834Arwipjxp [Moles/Vol]Chloride [Moles/volume] in Serum or Ozwieb22-414XjycipuyzOhiohealth Grant Medical Center Cholesterol [Mass/volume] in Serum or PlasmaOrdered By: Rola Valdes on 60-74-6112Bcsumkukmnz [Mass/Vol]Cholesterol [Mass/volume] in Serum or Plasma Significant change xj188-867GdrnidnmrOhiohealth Grant Medical CenterComment on above: Delta: 267 on 04/01/25-0455Chol less than 200 mg/dl low riskChol 201-239 mg/dl borderline riskChol 240 mg/dl and greater high riskCholesterol in HDL [Mass/volume] in Serum or PlasmaOrdered By: Rola Valdes on 04-02-2025 Cholesterol in HDL [Mass/Vol]Serum or plasma high density lipoprotein (HDL) cholesterol -60AymbayadqOhiohealth Grant Medical CenterComment on above: HDL CHOL ATP-III CLASSIFICATION Cardiovascular RiskHDL > or equal to 60 mg/dL LOWHDL < 40 mg/dL HIGHCholesterol in LDL Calc [Mass/Vol]Ordered By: Rola Valdes on 51-35-4757Kofipppxszk in LDL [Mass/Vol]Cholesterol in LDL [Mass/volume] in Serum or Plasma by calculation0-[facility] CenterComment on above:LDL ATP III CLASSIFICATIONLDL less than 100 mg/dL OptimalLDL 100-129 mg/dL Near or above ahvoderSLV750-926 mg/dL Borderline highLDL 160-189 mg/dL HighLDL greater than 189 mg/dL Very highCholesterol in LDL [Mass/volume] in Serum or PlasmaOrdered By: Rola Valdes on 04-02-2025 Cholesterol in LDL [Mass/Vol]Cholesterol in LDL [Mass/volume] in Serum or Plasma 0-[facility] Medical CenterComment on above:LDL ATP III CLASSIFICATIONLDL less than 100 mg/dL OptimalLDL 100-129 mg/dL Near or above dorskywGIK253-317 mg/dL Borderline highLDL 160-189 mg/dL HighLDL greater than 189 mg/dL Very highCholesterol in VLDL Calc [Mass/Vol]Ordered By: Rola Valdes on 99-73-8242Olartpjkupy in VLDL [Mass/Vol]Cholesterol in VLDL [Mass/volume] in Serum or Plasma by calculationOhiohealth Grant Medical Center Comment on above:Test not performedComprehensive Metabolic Panelon 04-02-2025 Albumin [Mass/Vol]4.0 g/dLNormal3.5-5.7[facility] Physician GroupComment on above:Order Comment: FASTING YPerformed By: #### GLULS #### Point of Care testing ,Albumin/Globulin [Mass ratio]1.8 {ratio}NormalThe [facility] Physician Group Comment on above:Order Comment: FASTING YPerformed By: #### GLULS #### Point of Care testing ,ALP [Catalytic activity/Vol]38 U/NTwdmmq29-498Kda [facility]ician Group Comment on above:Order Comment: FASTING YPerformed By: #### GLULS #### Point of Care testing ,ALT [Catalytic activity/Vol]14 U/LNormal7-52[facility] Comment on above:Order Comment: FASTING YPerformed By: #### GLULS #### Point of Care testing ,Anion gap [Moles/Vol]10.7 mmol/LNormal6.0-15.0[facility] Comment on above:Order Comment: FASTING YPerformed By: #### GLULS #### Point of Care testing ,AST [Catalytic activity/Vol]12 U/ZWde51-56Xvn [facility] Physician GroupComment on above:Order Comment: FASTING YPerformed By: #### GLULS #### Point of Care testing ,Bilirubin [Mass/Vol]0.8 mg/dLNormal0.3-1.0[facility] Physician GroupComment on above:Order Comment: FASTING YPerformed By: #### GLULS #### Point of Care testing ,Calcium [Mass/Vol]8.7 mg/dLNormal8.6-10.3The [facility] Physician GroupComment on above:Order Comment: FASTING YPerformed By: #### GLULS #### Point of Care testing ,Chloride [Moles/Vol]101 mmol/EGimttz39-289Nsm [facility] Physician GroupComment on above:Order Comment: FASTING YPerformed By: #### GLULS #### Point of Care testing ,CO2 [Moles/Vol]26.2 mmol/OJfisak43.0-31.0[facility] Physician GroupComment on above:Order Comment: FASTING YPerformed By: #### GLULS #### Point of Care testing ,Creatinine [Mass/Vol]0.85 mg/dLNormal0.70-1.30[facility] Comment on above:Order Comment: FASTING YPerformed By: #### GLULS #### Point of Care testing ,Creatinine Clr Calc Rbchggwt198.88NoUNC Hospitals [facility] Physician GroupComment on above:Order Comment: FASTING YPerformed By: #### GLULS #### Point of Care testing ,GFR/1.73 sq M.predicted MDRD (S/P/Bld) [Vol rate/Area]mL/min/{1.73_m2}NormalThe [facility] Physician GroupComment on above:Order Comment: FASTING YPerformed By: #### GLULS #### Point of Care testing ,Globulin (S) [Mass/Vol]2.2 g/dLNoUNC [facility] Physician GroupComment on above:Order Comment: FASTING YPerformed By: #### GLULS #### Point of Care testing ,Glucose [Mass/Vol]312 mg/qMDqgp51-247Vap [facility] Physician GroupComment on above:Order Comment: FASTING YResult Comment: Random Glucose Reference Range is dependent on time and content of last meal. Glucose of more than 200 mg/dL in a nonstressed, ambulatory subject supports the diagnosis of Diabetes Mellitus. ADA recommended reference rangePerformed By: #### GLULS #### Point of Care testing ,Potassium [Moles/Vol]3.9 mmol/LNormal3.5-5.1[facility] Comment on above:Order Comment: FASTING YPerformed By: #### GLULS #### Point of Care testing ,Protein [Mass/Vol]6.2 g/dLLow6.4-8.9The [facility] Physician GroupComment on above:Order Comment: FASTING YPerformed By: #### GLULS #### Point of Care testing ,Sodium [Moles/Vol]134 mmol/CQvg847-050Uju [facility] Physician GroupComment on above:Order Comment: FASTING YPerformed By: #### GLULS #### Point of Care testing ,Urea nitrogen [Mass/Vol]14 mg/dLNormal7-25ThPower County Hospital Physician GroupComment on above:Order Comment: FASTING YPerformed By: #### GLULS #### Point of Care testing ,Creatinine [Mass/volume] in Serum or PlasmaOrdered By: Rola Valdes on 64-74-2684Yshmiahove [Mass/Vol]Creatinine [Mass/volume] in Serum or Plasma 0.70-1.30[facility] Medical CenterGlobulin Calc (S) [Mass/Vol]Ordered By: Rola Valdes on 69-81-8326Aeipunmj (S) [Mass/Vol]Serum globulin measurement by calculation (mass/volume)[facility] CenterGlucose Poct Glucometerson 14-85-5822Wdwcxlu1Omp6: Cleaned MeterTampa General Hospital Physician GroupComment on above:Result Comment: PERFORMED BY: [place] [address] PATHOLOGIST MANAGER OPERATIONS RESEARCH BRAEDEN COLE M.D.Performed By: #### GLULS #### Point of Care testing ,Glucose [Mass/Vol]267 mg/dLTampa General Hospital Physician GroupComment on above: Result Comment: Random Glucose Reference Range is dependent on time and content of last meal. Glucose of more than 200 mg/dL in a nonstressed, ambulatory subject supports the diagnosis of Diabetes Mellitus.Performed By: #### GLULS #### Point of Care testing ,Jronvpa3Qxr1: Cleaned MeterTampa General Hospital Physician GroupComment on above: Result Comment: PERFORMED BY: [place] [address] PATHOLOGIST MANAGER OPERATIONS RESEARCH BRAEDEN COEL M.D.Performed By: #### URDS, ADDONUAPLUS #### [facility] [address] [place] [address] USAGlucose [Mass/Vol]308 mg/dLNoUNC [facility]als Hills[facility] Physician GroupComment on above:Result Comment: Random Glucose Reference Range is dependent on time and content of last meal. Glucose of more than 200 mg/dL in a nonstressed, ambulatory subject supports the diagnosis of Diabetes Mellitus.Performed By: #### URDS, ADDONUAPLUS #### [facility] [address] [place] [address] FQSXwjqqou9Quf3: Cleaned MeterTampa General Hospital Physician GroupComment on above:Result Comment: PERFORMED BY: [facility] [address] [place] [address] PATHOLOGIST MANAGER OPERATIONS RESEARCH BRAEDEN COLE M.D.Performed By: #### GLULS #### Point of Care testing ,Glucose [Mass/Vol]279 mg/dLTampa General Hospital Physician GroupComment on above: Result Comment: Random Glucose Reference Range is dependent on time and content of last meal. Glucose of more than 200 mg/dL in a nonstressed, ambulatory subject supports the diagnosis of Diabetes Mellitus.Performed By: #### GLULS #### Point of Care testing ,Sbevevs5Haf5: Cleaned MeterNoUNC Hospitals Hillsborough Campus Physician [facility] CenterComment on above: Result Comment: PERFORMED BY: [facility] [address] [place] [address] PATHOLOGIST MANAGER OPERATIONS RESEARCH BRAEDEN COLE M.D.Performed By: #### GLULS #### Point of Care testing ,Glucose [Mass/Vol]302 mg/dLTampa General Hospital Physician GroupComment on above: Result Comment: Random Glucose Reference Range is dependent on time and content of last meal. Glucose of more than 200 mg/dL in a nonstressed, ambulatory subject supports the diagnosis of Diabetes Mellitus.Performed By: #### GLULS #### Point of Care testing ,Glucose [Mass/volume] in Serum or PlasmaOrdered By: Rola Valdes on 24-47-5027Qbzibvx [Mass/Vol]Glucose [Mass/volume] in Serum or HrsoukKnio19-711 [facility] CenterComment on above:ADA recommended reference rangeRandom Glucose Reference Range is dependent on time and content of last meal. Glucose of more than 200 mg/dL in a nonstressed, ambulatory subject supports the diagnosisof Diabetes Mellitus.LDL Cholesterol Measuredon 04-02-2025 LDL Cholesterol Mhztzwfk69 mg/dLNormal0-100The [facility] Physician GroupComment on above:Order Comment: FASTING YResult Comment: LDL ATP III CLASSIFICATION LDL less than 100 mg/dL Optimal LDL 100-129 mg/dL Near or above optimal LDL 130-159 mg/dL Borderline high LDL 160-189 mg/dL High LDL greater than 189 mg/dL Very high PERFORMED BY: [facility] [address] [place] [address] PATHOLOGIST MANAGER OPERATIONS RESEARCH BRAEDEN COLE M.D.Performed By: #### GLULS #### Point of Care testing ,Lipaseon 57-35-1407Awmwar [Catalytic activity/Vol]39.0 U/NPsyhro46.0-82.0The [facility] Physician GroupComment on above:Order Comment: FASTING YPerformed By: #### GLULS #### Point of Care testing ,Lipase [Enzymatic activity/volume] in Serum or PlasmaOrdered By: Rola Valdes on 42-37-2078Tcobes [Catalytic activity/Vol]Lipase [Enzymatic activity/volume] in Serum or Fphwht26.0-82.0[facility] Lipid Panelon 58-67-1118Kqhsnthtdfg [Mass/Vol]196 mg/dLInvalid Interpretation Gimr087-215Ylp [facility] Physician GroupComment on above:Order Comment: FASTING YResult Comment: Chol less than 200 mg/dl low risk Chol 201-239 mg/dl borderline risk Chol 240 mg/dl and greater high riskPerformed By: #### GLULS #### Point of Care testing ,Cholesterol in HDL [Mass/Vol]23 mg/fTLrrtyl08-36Ppt [facility] Comment on above:Order Comment: FASTING YResult Comment: HDL CHOL ATP-III CLASSIFICATION Cardiovascular Risk HDL > or equal to 60 mg/dL LOW HDL < 40 mg/dL HIGHPerformed By: #### GLULS #### Point of Care testing ,Cholesterol.total/Cholesterol in HDL [Mass ratio]8.5 {ratio}Normal<5.0The [facility] Physician GroupComment on above:Order Comment: FASTING YResult Comment: PERFORMED BY: [facility] [address] [place] [address] PATHOLOGIST MANAGER OPERATIONS RESEARCH BRAEDEN COLE M.D.Performed By: #### GLULS #### Point of Care testing ,LDL Cholesterol,Calculated<03Uaqpie4-424Uzg [facility] Physician GroupComment on above:Order Comment: FASTING YResult Comment: LDL ATP III CLASSIFICATION LDL less than 100 mg/dL Optimal LDL 100-129 mg/dL Near or above optimal LDL 130-159 mg/dL Borderline high LDL 160-189 mg/dL High LDL greater than 189 mg/dL Very highPerformed By: #### GLULS #### Point of Care testing ,Triglyceride w/Kbpskz323 mg/dLHigh0-149The [facility] Physician GroupComment on above:Order Comment: FASTING YResult [...] ,No Panel InformationOrdered By: Rola Valdes on 55-93-9667Kweuhitre GFR (CKD-EPI)> 60.0 mL/MinOhiohealth Grant Medical CenterPharmacy Creatinine Clearance (Npep099.88[facility] CenterPotassium [Moles/volume] in Serum or PlasmaOrdered By: Rola Valdes on 21-14-8252Mjkfwquam [Moles/Vol]Potassium [Moles/volume] in Serum or Plasma3.5-5.1FMercy HospitalProtein [Mass/volume] in Serum or PlasmaOrdered By: Rola Valdes on 00-10-6568Lxleadq [Mass/Vol]Protein [Mass/volume] in Serum or PlasmaLow6.4-8.9[facility] Medical CenterRedraw Vitamin D 25OHon 58-48-3582Dnlego Vitamin D 25OH18.6 ng/qPBgf66-149Pvy [facility]ician Group Comment on above:Result Comment: VITAMIN D STATUS 25(OH)VITAMIN D RANGE (ng/mL) Deficient <20 Insufficient 20 to <30 Sufficient 30 to 100 Reference: Ashley MF,Jodee NC, Christina GUEVARA, et al. Evaluation,treatment, and prevention of vitamin D deficiency; an Endocrine Society clinical practice guideline. JCEM. 2010; 96(7):1911-30. PERFORMED BY: [facility] [place] [place] [address] PATHOLOGIST MANAGER OPERATIONS RESEARCH BRAEDEN COLE M.D.Performed By: #### GLULS #### Point of Care testing ,Serum or plasma albumin/globulin mass ratioOrdered By: Rola Valdes on 19-53-5686Oudgvyd/Globulin [Mass ratio]Serum or plasma albumin/globulin mass ratioWexner Medical Centererum or plasma anion gap determination Ordered By: Rola Valdes on 51-42-5775Qnfsi gap [Moles/Vol]Serum or plasma anion gap determination6.0-15.0Wexner Medical Centererum or plasma total cholesterol/high density lipoprotein (HDL) cholesterol mass rat Ordered By: Rola Valdes on 51-84-1254Tiabreewbnh.total/Cholesterol in HDL [Mass ratio]Serum or plasma total cholesterol/high density lipoprotein (HDL) cholesterol mass rat<5.0W[facility]ner Medical Centerodium [Moles/volume] in Serum or PlasmaOrdered By: Rola Valdes on 81-66-0014Cvhjhw [Moles/Vol]Sodium [Moles/volume] in Serum or QlbplwAhl537-309AakwnbqgnOhiohealth Grant Medical CenterTriglyceride [Mass/volume] in Serum or PlasmaOrdered By: Rola Valdes on 22-96-4213Okgzichwkyok [Mass/Vol]Triglyceride [Mass/volume] in Serum or PlasmaHigh0-149[facility] CenterComment on above:If the triglyceride result is greater than 400, LDLC and related calculations cannot be calculated and resulted.TRIG ATP III CLASSIFICATIONTRIG less than 150 mg/dL NormalTRIG 150-199 mg/dL BorderlinehighTRIG 200-500 mg/dL High TRIG greater than 500 mg/dL Very highStandard traceable to the Center for Disease Conrtrol and Prevention (CDC) test method.Urea nitrogen [Mass/volume] in Serum or PlasmaOrdered By: Rola Valdes on 00-52-0152Czig nitrogen [Mass/Vol] Urea nitrogen [Mass/volume] in Serum or Plasma7-25[facility] Medical CenterVitamin B12on 75-24-3295Jmjlyrjfp (Vitamin B12) [Mass/Vol]632 pg/mLNormal 180-914The [facility] Physician GroupComment on above:Order Comment: Comment add on to previously drawn specimenResult Comment: PERFORMED BY: [facility] [address] [place] [address] PATHOLOGIST MANAGER OPERATIONS RESEARCH BRAEDEN COLE M.D.Performed By: #### GLULS #### Point of Care testing ,Vitamin B12 ser/plasOrdered By: Rola Valdes on 29-28-9643Bgreiyufo (Vitamin B12) [Mass/Vol]Vitamin B12 ser/waze128-184GiplrtaotOhiohealth Grant Medical CenterVitamin D+Metabolites [Mass/volume] in Serum or PlasmaOrdered By: Blue Talbot on 07-06-7546Eqcplmd D+Metabolites [Mass/Vol]Vitamin D+Metabolites [Mass/volume] in Serum or IwvkafWqn36-470RvcfzcdpqOhiohealth Grant Medical CenterComment on above:VITAMIN D STATUS 25(OH)VITAMIN D RANGE (ng/mL) Deficient <20 Insufficient 20 to <24Pxcymqrjst04 to 100Reference: Ashley MF,Jodee NC, Christina GUEVARA, et al. Evaluation,treatment, and prevention of vitamin D deficiency; an Endocrine Society clinical practice guideline. JCEM. 2010; 96(7):1911-30.A1C with Estimated Average Gluon 36-96-7474Tcjxdnp [Mass/Vol]240 mg/dLNormalThe [facility] Physician GroupComment on above:Result Comment: PERFORMED BY: [facility] [address] [place] [address] PATHOLOGIST MANAGER OPERATIONS RESEARCH BRAEDEN COLE M.D.Performed By: #### GLULS #### Point of Care testing ,HbA1c (Bld) [Mass fraction]10.0 %High4.3-5.6The [facility]ician Group Comment on above:Result Comment: Increased risk for diabetes: 5.7 - 6.4 diabetes: >6.4 glycemic control for adults with diabetes: <7.0Performed By: #### GLULS #### Point of Care testing ,Blood estimated average glucose determination by estimation from glycated hemoglobinOrdered By: Blue Talbot on 89-35-7753Efyuztd glucose Estimated from glycated hemoglobin (Bld) [Mass/Vol]Glucose mean value [Mass/volume] in Blood Estimated from glycated hemoglobinOhiohealth Grant Medical CenterGlucose Poct Glucometerson 30-08-8109Xwcszub6Drv8: Cleaned Meter [facility] Physician GroupComment on above:Result Comment: PERFORMED BY: [place] [address] PATHOLOGIST MANAGER OPERATIONS RESEARCH BRAEDEN COLE M.D.Performed By: #### GLULS #### Point of Care testing ,Glucose [Mass/Vol]284 mg/dLTampa General Hospital Physician GroupComment on above: Result Comment: Random Glucose Reference Range is dependent on time and content of last meal. Glucose of more than 200 mg/dL in a nonstressed, ambulatory subject supports the diagnosis of Diabetes Mellitus.Performed By: #### GLULS #### Point of Care testing ,Xrkflvw9Mka9: Cleaned MeterNoUNC Hospitals Hills[facility] Campus Physician GroupComment on above: Result Comment: PERFORMED BY: [place] [phone] PATHOLOGIST MANAGER OPERATIONS RESEARCH BRAEDEN COLE M.D.Performed By: #### GLULS #### Point of Care testing ,Glucose [Mass/Vol]368 mg/dLTampa General Hospital Physician [facility] CenterComment on above: Result Comment: Random Glucose Reference Range is dependent on time and content of last meal. Glucose of more than 200 mg/dL in a nonstressed, ambulatory subject supports the diagnosis of Diabetes Mellitus.Performed By: #### GLULS #### Point of Care testing ,Tjletca4XuigvvVgnTampa General Hospital Physician GroupComment on above:Result Comment: Glu2: WILL NOTIFY DR/RN PERFORMED BY: [place] [address] PATHOLOGIST MANAGER OPERATIONS RESEARCH BRAEDEN COLE M.D.Performed By: #### URDS, ADDONUAPLUS #### [address] [address] USAGlucose [Mass/Vol]449 mg/dLOff scale highThe [facility] Physician GroupComment on above:Result Comment: Random Glucose Reference Range is dependent on time and content of last meal. Glucose of more than 200 mg/dL in a nonstressed, ambulatory subject supports the diagnosis of Diabetes Mellitus.Performed By: #### URDS, ADDONUAPLUS #### [facility] [address] [place] [address] USAHemoglobin A1c/Hemoglobin.total in BloodOrdered By: Blue Talbot on 74-34-2237ZjR6z (Bld) [Mass fraction]Hemoglobin A1c percentageHigh4.3-5.6FMercy HospitalComment on above:Increased risk for diabetes: 5.7 - 6.4diabetes: >6.4glycemic control for adults with diabetes: <7.0Lipid Panelon 16-94-5768Wdwxrbpiehn [Mass/Vol]267 mg/dLHigh 140-200The [facility] Physician [facility] CenterComment on above:Result Comment: Chol less than 200 mg/dl low risk Chol 201-239 mg/dl borderline risk Chol 240 mg/dl and greater high riskPerformed By: #### GLULS #### Point of Care testing ,Cholesterol in HDL [Mass/Vol]20 mg/mWNwg58-44[facility] Comment on above:Result Comment: HDL CHOL ATP-III CLASSIFICATION Cardiovascular Risk HDL > or equal to 60 mg/dL LOW HDL < 40 mg/dL HIGHPerformed By: #### GLULS #### Point of Care testing ,Cholesterol.total/Cholesterol in HDL [Mass ratio]13.4 {ratio}Normal<5.0The [facility] Line HospitalsComment on above:Performed By: #### GLULS #### Point of Care testing ,LDL Cholesterol,CalculatedNot performedNormal0-100[facility] Comment on above:Performed By: #### GLULS #### Point of Care testing ,Triglyceride w/Dkrkir2436 mg/dLHigh0-149The [facility] Line HospitalsComment on above:Result Comment: If the triglyceride result [...] #### Point of Care testing ,VLDL CHOLESTEROLNot performedNormBroward Health North Physician GroupComment on above:Performed By: #### GLULS #### Point of Care testing ,Thyroid Stim Hormone w/Rflxon 53-77-3323Gczshpw Stim Hormone w/Rflx3.72 u[iU]/mLNormal0.45-5.33The [facility] Physician [facility] CenterComment on above:Performed By: #### GLULS #### Point of Care testing ,Thyrotropin [Units/volume] in Serum or PlasmaOrdered By: Blue Talbot on 57-10-8070XKF QnThyrotropin [Units/volume] in Serum or Plasma0.45-5.33 [facility] CenterVitamin D 25 Hydroxy Totalon 41-22-2154Tpsrons D 25 Hydroxy FamhqMbbkjb14-884Teg [facility] Physician [facility] CenterComment on above: Result Comment: Specimen hemolyzed, redraw requested VITAMIN D STATUS 25(OH)VITAMIN D RANGE (ng/mL) Deficient <20 Insufficient 20 to <30 Sufficient 30 to 100 Reference: Ashley MF,Jodee NC, Christina GUEVARA, et al. Evaluation,treatment, and prevention of vitamin D deficiency; an Endocrine Society clinical practice guideline. JCEM. 2010; 96(7):1911-30. PERFORMED BY: [facility] [address] [place] [address] PATHOLOGIST MANAGER OPERATIONS RESEARCH BRAEDEN COLE M.D.Performed By: #### GLULS #### Point of Care testing ,Acetaminophenon 70-74-9091Knzpvknxbtcza [Mass/Vol]0.1 ug/mLLow10.0-30.0The [facility] Physician [facility] CenterComment on above:Result Comment: PERFORMED BY: [facility] [address] [place] [address] PATHOLOGIST MANAGER OPERATIONS RESEARCH BRAEDEN COLE M.D.Performed By: #### GLULS #### Point of Care testing ,Acetaminophen [Mass/volume] in Serum or PlasmaOrdered By: Kris Gross 18-73-2498Ohdfriyxrsfwl [Mass/Vol]Acetaminophen [Mass/volume] in Serum or Plasma Low10.0-30.0[facility] Medical CenterAlanine aminotransferase [Enzymatic activity/volume] in Serum or PlasmaOrdered By: Kris Gross 71-04-0624OTD [Catalytic activity/Vol]Alanine aminotransferase [Enzymatic activity/volume] in Serum or Plasma7-52[facility] CenterAlbumin [Mass/volume] in Serum or Plasma by Bromocresol green (BCG) dye binding methoOrdered By: Kris Gross 89-47-2624Yhnhzws BCG dye [Mass/Vol]Albumin [Mass/volume] in Serum or Plasma by Bromocresol green (BCG) dye binding metho3.5-5.7FMercy HospitalAlkaline phosphatase [Enzymatic activity/volume] in Serum or PlasmaOrdered By: Kris Gross 60-43-8189RIX [Catalytic activity/Vol]Alkaline phosphatase [Enzymatic activity/volume] in Serum or Xqphgz54-472HfasttnzmOhiohealth Grant Medical CenterAspartate aminotransferase [Enzymatic activity/volume] in Serum or PlasmaOrdered By: Kris Gross 94-05-8211JSZ [Catalytic activity/Vol]Aspartate aminotransferase [Enzymatic activity/volume] in Serum or Unccbs57-87DtrmuojbdOhiohealth Grant Medical CenterBilirubin.total [Mass/volume] in Serum or PlasmaOrdered By: Kris Gross 98-15-4707Lakfidkfn [Mass/Vol] Bilirubin.total [Mass/volume] in Serum or Plasma0.3-1.0[facility] CenterCalcium [Mass/volume] in Serum or PlasmaOrdered By: Kris Gross 83-18-5350Jweaays [Mass/Vol]Calcium [Mass/volume] in Serum or Plasma8.6-10.3 [facility] CenterCarbon dioxide, total [Moles/volume] in Serum or PlasmaOrdered By: Kris Gross 46-71-8127IZ2 [Moles/Vol]Carbon dioxide, total [Moles/volume] in Serum or Wbpjls62.0-31.0[facility] CenterChloride [Moles/volume] in Serum or PlasmaOrdered By: Kris Gross on 76-94-7624Omexelxz [Moles/Vol]Chloride [Moles/volume] in Serum or Nlntrd81-932 [facility] CenterComprehensive Metabolic Panelon 03-31-2025 Albumin [Mass/Vol]4.5 g/dLNormal3.5-5.7The [facility] Physician GroupComment on above:Performed By: #### GLULS #### Point of Care testing ,Albumin/Globulin [Mass ratio]1.7 {ratio}NormalThe [facility] Comment on above:Performed By: #### GLULS #### Point of Care testing ,ALP [Catalytic activity/Vol]42 U/STysnfh38-063Eko [facility] Physician [facility] Comment on above:Result Comment: PERFORMED BY: [facility] [address] [place] [address] PATHOLOGIST MANAGER OPERATIONS RESEARCH BRAEDEN COLE M.D.Performed By: #### GLULS #### Point of Care testing ,ALT [Catalytic activity/Vol]15 U/LNormal7-52The [facility] Comment on above:Performed By: #### GLULS #### Point of Care testing ,Anion gap [Moles/Vol]12.8 mmol/LNormal6.0-15.0The [facility] Comment on above:Performed By: #### GLULS #### Point of Care testing ,AST [Catalytic activity/Vol]18 U/XWnushl43-79Cvq [facility] Comment on above:Performed By: #### GLULS #### Point of Care testing ,Bilirubin [Mass/Vol]0.6 mg/dLNormal0.3-1.0The [facility] Physician GroupComment on above:Performed By: #### GLULS #### Point of Care testing ,Calcium [Mass/Vol]9.2 mg/dLNormal8.6-10.3The [facility] Physician GroupComment on above:Performed By: #### GLULS #### Point of Care testing ,Chloride [Moles/Vol]101 mmol/IUaknpy58-132Dye [facility] Physician GroupComment on above:Performed By: #### GLULS #### Point of Care testing ,CO2 [Moles/Vol]23.4 mmol/JKxvukv79.0-31.0The [facility] Physician GroupComment on above:Performed By: #### GLULS #### Point of Care testing ,Creatinine [Mass/Vol]0.82 mg/dLNormal0.70-1.30The [facility] Comment on above:Performed By: #### GLULS #### Point of Care testing ,GFR/1.73 sq M.predicted MDRD (S/P/Bld) [Vol rate/Area]mL/min/{1.73_m2}NormalThe [facility] Physician GroupComment on above:Performed By: #### GLULS #### Point of Care testing ,Globulin (S) [Mass/Vol]2.6 g/dLNormalThe [facility] Physician GroupComment on above:Performed By: #### GLULS #### Point of Care testing ,Glucose [Mass/Vol]321 mg/bJSjuw78-276Jee [facility] Physician GroupComment on above:Result Comment: Random Glucose Reference Range is dependent on time and content of last meal. Glucose of more than 200 mg/dL in a nonstressed, ambulatory subject supports the diagnosis of Diabetes Mellitus. ADA recommended reference rangePerformed By: #### GLULS #### Point of Care testing ,Potassium [Moles/Vol]4.2 mmol/LNormal3.5-5.1The [facility] Comment on above:Result Comment: Hemolysis is present at a level that could interfere with the result. Contact lab if redraw is requiredPerformed By: #### GLULS #### Point of Care testing ,Protein [Mass/Vol]7.1 g/dLNormal6.4-8.9The [facility] Physician GroupComment on above:Performed By: #### GLULS #### Point of Care testing ,Sodium [Moles/Vol]133 mmol/XRlt218-929Tui [facility] Physician GroupComment on above:Performed By: #### GLULS #### Point of Care testing ,Urea nitrogen [Mass/Vol]19 mg/dLNormal7-25The [facility] Physician [facility] CenterComment on above:Performed By: #### GLULS #### Point of Care testing ,Creatinine [Mass/volume] in Serum or PlasmaOrdered By: Kris Gross on 36-82-1821Rpjraqgrmy [Mass/Vol]Creatinine [Mass/volume] in Serum or Plasma 0.70-1.30[facility] CenterEthanol [Mass/volume] in Serum or PlasmaOrdered By: Kris Gross on 36-21-3178Qcwcwlv [Mass/Vol]Ethanol [Mass/volume] in Serum or PlasmaOhiohealth Grant Medical CenterComment on above:Lipemia is present at a level that could interfere with the result.Hemolysis is present at a level that could interfere with the result.Test not performedEthyl Alcohol Profileon 48-81-1213Kjpieon [Mass/Vol]mg/dLNoUniversity Hospitals Conneaut Medical CenterComment on above:Result Comment: Lipemia is present at a level that could interfere with the result. Hemolysis is present at a level that could interfere with the result.Performed By: #### GLULS #### Point of Care testing ,Percent EthanolNot performedNoUniversity Hospitals Conneaut Medical CenterComment on above:Result Comment: PERFORMED BY: [facility] [address] [place] [address] PATHOLOGIST MANAGER OPERATIONS RESEARCH BRAEDEN COLE M.D.Performed By: #### GLULS #### Point of Care testing ,Globulin Calc (S) [Mass/Vol]Ordered By: Kris Gross on 57-93-4535Obbsldmn (S) [Mass/Vol]Serum globulin measurement by calculation (mass/volume)[facility] Medical CenterGlucose Glucometer (BldC) [Mass/Vol]Ordered By: Blue Talbot on 14-97-8339Ueppqau [Mass/Vol]Capillary blood glucose measurement by glucometer (mass/volume)[facility] CenterComment on above:Random Glucose Reference Range is dependent on time and content of last meal. Glucose of more than 200 mg/dL in a nonstressed, ambulatory subject supports the diagnosis of Diabetes Mellitus.Glucose Poct Glucometerson 41-55-9880Mfsdsox [Mass/Vol]292 mg/dLNormalThe [place] Physician GroupComment on above:Result Comment: Random Glucose Reference Range is dependent on time and content of last meal. Glucose of more than 200 mg/dL in a nonstressed, ambulatory subject supports the diagnosis of Diabetes Mellitus. PERFORMED BY: [facility] [address] [place] [address] PATHOLOGIST MANAGER OPERATIONS RESEARCH BRAEDEN COLE M.D.Performed By: #### GLULS #### Point of Care testing ,Glucose [Mass/volume] in Serum or PlasmaOrdered By: Kris Gross on 03-31-2025 Glucose [Mass/Vol]Glucose [Mass/volume] in Serum or RzlwenYpvb51-538ItabvcsinOhiohealth Grant Medical CenterComment on above:ADA recommended reference rangeRandom Glucose Reference Range is dependent on time and content of last meal. Glucose of more than 200 mg/dL in a nonstressed, ambulatory subject supports the diagnosisof Diabetes Mellitus.No Panel InformationOrdered By: Kris Gross on 24-21-8052Bijuezjyb GFR (CKD-EPI)> 60.0 mL/MinOhiohealth Grant Medical Center Pharmacy Creatinine Clearance (ChemN/[facility] HospitalPotassium [Moles/volume] in Serum or PlasmaOrdered By: Kris Gross on 03-31-2025 Potassium [Moles/Vol]Potassium [Moles/volume] in Serum or Plasma3.5-5.1FMercy HospitalComment on above:Hemolysis is present at a level that could interfere with the result.Contact lab if redraw is requiredProtein [Mass/volume] in Serum or PlasmaOrdered By: Kris Gross on 74-61-4079Dtrujbc [Mass/Vol]Protein [Mass/volume] in Serum or Plasma6.4-8.9[facility] Medical Centeralicylateon 75-60-7088Kpqfhsjvoy<1.5Low15.0-30.0The [facility] Physician GroupComment on above:Result Comment: Patients treated with Sulfasalazine may generate a false high result for Salicylate.Performed By: #### GLULS #### Point of Care testing ,Salicylates [Mass/volume] in Serum or PlasmaOrdered By: Kris Gross on 60-32-6395Rjckhbddgvm [Mass/Vol]Salicylates [Mass/volume] in Serum or PlasmaLow 15.0-30.0[facility] Medical CenterComment on above:Patients treated with Sulfasalazine may generate a false high result for Salicylate.Serum or plasma albumin/globulin mass ratioOrdered By: Kris Gross on 03-31-2025 Albumin/Globulin [Mass ratio]Serum or plasma albumin/globulin mass ratio [facility] Medical Centererum or plasma anion gap determinationOrdered By: Kris Gross on 41-89-4560Vlfxf gap [Moles/Vol]Serum or plasma anion gap determination6.0-15.0[facility] Medical Centerodium [Moles/volume] in Serum or PlasmaOrdered By: Kris Gross on 80-56-5684Pchacf [Moles/Vol]Sodium [Moles/volume] in Serum or LiywdvPaa313-791SvonrjqheOhiohealth Grant Medical CenterUrea nitrogen [Mass/volume] in Serum or PlasmaOrdered By: Kris Gross on 03-31-2025 Urea nitrogen [Mass/Vol]Urea nitrogen [Mass/volume] in Serum or Plasma7-25 [facility] CenterGlucose Glucometer (BldC) [Mass/Vol]Ordered By: Blue Talbot on 84-66-7503Sbwcisl [Mass/Vol]Capillary blood glucose measurement by glucometer (mass/volume)[facility] CenterComment on above:Random Glucose Reference Range is dependent on time and content of last meal. Glucose of more than 200 mg/dL in a nonstressed, ambulatory subject supports the diagnosis of Diabetes Mellitus.Glucose Poct Glucometerson 86-88-8317Ufuhhip [Mass/Vol]142 mg/dLNoUNC Hospitals Hillsborough Campus Physician GroupComment on above:Result Comment: Random Glucose Reference Range is dependent on time and content of last meal. Glucose of more than 200 mg/dL in a nonstressed, ambulatory subject supports the diagnosis of Diabetes Mellitus. PERFORMED BY: [facility] [address] [place] [address] PATHOLOGIST MANAGER OPERATIONS RESEARCH CORINNE RITTER M.D.Performed By: #### GLULS #### Point of Care testing ,Glucose [Mass/Vol]164 mg/dLNoUNC Hospitals Hillsborough Campus Physician GroupComment on above: Result Comment: Random Glucose Reference Range is dependent on time and content of last meal. Glucose of more than 200 mg/dL in a nonstressed, ambulatory subject supports the diagnosis of Diabetes Mellitus. PERFORMED BY: [place] [address] PATHOLOGIST MANAGER OPERATIONS RESEARCH CORINNE RITTER M.D.Performed By: #### MONET, ADDONUAPLUS #### [facility] [address] [place], [place] [id number] USAGlucose Poct Glucometerson 19-74-4749Rpbgvfc [Mass/Vol]250 mg/dLNormBroward Health North Physician GroupComment on above:Result Comment: Random Glucose Reference Range is dependent on time and content of last meal. Glucose of more than 200 mg/dL in a nonstressed, ambulatory subject supports the diagnosis of Diabetes Mellitus. PERFORMED BY: [place] [address] PATHOLOGIST MANAGER OPERATIONS RESEARCH CORINNE RITTER M.D.Performed By: #### MONET, ADDONUAPLUS #### [address] [address] USAGlucose [Mass/Vol]219 mg/dLNovictorianoSheltering Arms Hospitalbradly [facility] Physician GroupComment on above:Result Comment: Random Glucose Reference Range is dependent on time and content of last meal. Glucose of more than 200 mg/dL in a nonstressed, ambulatory subject supports the diagnosis of Diabetes Mellitus. PERFORMED BY: [place] [id number] PATHOLOGIST MANAGER OPERATIONS RESEARCH CORINNE RITTER M.D.Performed By: #### GLULS #### Point of Care testing ,Glucose [Mass/Vol]155 mg/dLNoUNC Hospitals Hills[facility] Physician GroupComment on above: Result Comment: Random Glucose Reference Range is dependent on time and content of last meal. Glucose of more than 200 mg/dL in a nonstressed, ambulatory subject supports the diagnosis of Diabetes Mellitus. PERFORMED BY: [place] [id number] PATHOLOGIST MANAGER OPERATIONS RESEARCH CORINNE RITTER M.D.Performed By: #### URMANISH, ADDONUAPLUS #### [facility] [address] [place] [address] AANYfhnney5Bps6: Cleaned MeterTampa General Hospital Physician GroupComment on above:Result Comment: PERFORMED BY: [place] [address] PATHOLOGIST MANAGER OPERATIONS RESEARCH CORINNE RITTER M.D.Performed By: #### MONET, ADDONUAPLUS #### [facility] [address] [place] [address] USAGlucose [Mass/Vol]177 mg/dLNoUNC Hospitals Hills[facility] Physician GroupComment on above:Result Comment: Random Glucose Reference Range is dependent on time and content of last meal. Glucose of more than 200 mg/dL in a nonstressed, ambulatory subject supports the diagnosis of Diabetes Mellitus.Performed By: #### MONET, ADDONUAPLUS #### [facility] [address] [place] [address] USANo Panel InformationOrdered By: Blue Talbot on 30-30-4106Uesbmvv Glucose CommentGlu2: cleaned [facility] CenterGlucose Poct Glucometerson 98-89-9158Sxelhdu [Mass/Vol]221 mg/dLNoUNC [facility] Physician GroupComment on above:Result Comment: Random Glucose Reference Range is dependent on time and content of last meal. Glucose of more than 200 mg/dL in a nonstressed, ambulatory subject supports the diagnosis of Diabetes Mellitus. PERFORMED BY: [place] [address] PATHOLOGIST MANAGER OPERATIONS RESEARCH CORINNE RITTER M.D.Performed By: #### URMANISH, ADDONUAPLUS #### [facility] [address] [place] [address] USAGlucose [Mass/Vol]184 mg/dLNoUNC [facility]als [facility] Physician GroupComment on above:Result Comment: Random Glucose Reference Range is dependent on time and content of last meal. Glucose of more than 200 mg/dL in a nonstressed, ambulatory subject supports the diagnosis of Diabetes Mellitus. PERFORMED BY: [address] [place] [address] PATHOLOGIST MANAGER OPERATIONS RESEARCH CORINNE RITTER M.D.Performed By: #### GLULS #### Point of Care testing ,Glucose [Mass/Vol]216 mg/dLNoUNC [facility]als [facility] Physician GroupComment on above: Result Comment: Random Glucose Reference Range is dependent on time and content of last meal. Glucose of more than 200 mg/dL in a nonstressed, ambulatory subject supports the diagnosis of Diabetes Mellitus. PERFORMED BY: [address] [id number] PATHOLOGIST MANAGER OPERATIONS RESEARCH CORINNE RITTER M.D.Performed By: #### GLULS #### Point of Care testing ,Glucose [Mass/Vol]143 mg/dLNoUNC [facility] Physician GroupComment on above: Result Comment: Random Glucose Reference Range is dependent on time and content of last meal. Glucose of more than 200 mg/dL in a nonstressed, ambulatory subject supports the diagnosis of Diabetes Mellitus. PERFORMED BY: [address] [place] [address] PATHOLOGIST MANAGER OPERATIONS RESEARCH CORINNE RITTER M.D.Performed By: #### GLULS #### Point of Care testing ,A1C with Estimated Average Gluon 06-07-1780Rmsdxqn [Mass/Vol]212 mg/dLNoUNC [facility]als [facility] Physician GroupComment on above:Result Comment: PERFORMED BY: [address] [place] [id number] PATHOLOGIST MANAGER OPERATIONS RESEARCH CORINNE RITTER M.D.Performed By: #### GLULS #### Point of Care testing ,HbA1c (Bld) [Mass fraction]9.0 %High4.3-5.6The [facility] Physician GroupComment on above:Result Comment: Increased risk for diabetes: 5.7 - 6.4 diabetes: >6.4 glycemic control for adults with diabetes: <7.0Performed By: #### GLULS #### Point of Care testing ,Blood estimated average glucose determination by estimation from glycated hemoglobinOrdered By: Blue Talbot on 45-60-1073Myastjg glucose Estimated from glycated hemoglobin (Bld) [Mass/Vol]Glucose mean value [Mass/volume] in Blood Estimated from glycated hemoglobinOhiohealth Grant Medical CenterCholesterol [Mass/volume] in Serum or PlasmaOrdered By: Blue Talbot on 14-73-4005Ytwieyfwfct [Mass/Vol]Cholesterol [Mass/volume] in Serum or Uvyuph653-228IxphhkuyiOhiohealth Grant Medical CenterComment on above:Chol less than 200 mg/dl low riskChol 201-239 mg/dl borderline riskChol 240 mg/dl and greater high riskCholesterol in HDL [Mass/volume] in Serum or PlasmaOrdered By: Blue Talbot on 12-12-0408Doytbmvmdtu in HDL [Mass/Vol]Serum or plasma high density lipoprotein (HDL) cholesterol measurement Aaj76-16ElvdjrrtnOhiohealth Grant Medical CenterComment on above:HDL CHOL ATP-III CLASSIFICATION Cardiovascular RiskHDL > or equal to 60 mg/dL LOWHDL < 40 mg/dL HIGHCholesterol in LDL Calc [Mass/Vol]Ordered By: Blue Talbot on 94-04-4007Pqxpagdjvdy in LDL [Mass/Vol]Cholesterol in LDL [Mass/volume] in Serum or Plasma by calculation0-Ohiohealth Grant Medical CenterComment on above: LDL ATP III CLASSIFICATIONLDL less than 100 mg/dL OptimalLDL 100-129 mg/dL Near or above cqfniqaCRY041-872 mg/dL Borderline highLDL 160-189 mg/dL HighLDL greater than 189 mg/dL Very highCholesterol in LDL [Mass/volume] in Serum or PlasmaOrdered By: Blue Talbot on 21-64-3140Erjtimmiyic in LDL [Mass/Vol]Cholesterol in LDL [Mass/volume] in Serum or Plasma0-100Ohio[facility] Grant Medical CenterComment on above:LDL ATP III CLASSIFICATIONLDL less than 100 mg/dL OptimalLDL 100-129 mg/dL Near or above jrteyhhBQJ979-110 mg/dL Borderline highLDL 160-189 mg/dL HighLDL greater than 189 mg/dL Very high Cholesterol in VLDL Calc [Mass/Vol]Ordered By: Blue Talbot on 50-37-7980Clrqvievrns in VLDL [Mass/Vol]Cholesterol in VLDL [Mass/volume] in Serum or Plasma by [facility] HospitalComment on above: Test not performedECG 12 lead ECGon 44-17-2436AVJ 12 lead [facility]GLANCASTER [facility] [place] [address] [place] [address] Electrocardiograph Report Signed Patient: Tracie Ramirez MR#: [id number] : 2000 Acct:[id number] Age/Sex: 24 / M ADM Date: 01/05/25 Loc: Room: [address] [place] [address] Type: ADM IN Attending Dr: Blue Talbot [...] By Mónica Rachel MD 0 01/08/25 1633NoUNC [facility] Physician GroupFree T4 (Free Thyroxine)on 75-50-0284Muhi T4 [Mass/Vol]0.78 ng/dLNormal0.61-1.12ThPower County Hospital Physician GroupComment on above:Performed By: #### URDS, ADDONUAPLUS #### [address] [address] USAGlucose Poct Glucometerson 13-25-1193Qvmgvoi [Mass/Vol]195 mg/dLNoUNC [facility]als [facility] Physician GroupComment on above:Result Comment: Random Glucose Reference Range is dependent on time and content of last meal. Glucose of more than 200 mg/dL in a nonstressed, ambulatory subject supports the diagnosis of Diabetes Mellitus. PERFORMED BY: [place] [address] PATHOLOGIST MANAGER OPERATIONS RESEARCH CORINNE RITTER M.D.Performed By: #### URDS, ADDONUAPLUS #### [place] [address] USAGlucose [Mass/Vol]161 mg/dLTampa General Hospital Physician GroupComment on above:Result Comment: Random Glucose Reference Range is dependent on time and content of last meal. Glucose of more than 200 mg/dL in a nonstressed, ambulatory subject supports the diagnosis of Diabetes Mellitus. PERFORMED BY: [place] [address] PATHOLOGIST MANAGER OPERATIONS RESEARCH CORINNE RITTER M.D.Performed By: #### URMANISH, ADDONUAPLUS #### [place] [address] USAGlucose [Mass/Vol]208 mg/dLTampa General Hospital Physician GroupComment on above:Result Comment: Random Glucose Reference Range is dependent on time and content of last meal. Glucose of more than 200 mg/dL in a nonstressed, ambulatory subject supports the diagnosis of Diabetes Mellitus. PERFORMED BY: [place] [address] PATHOLOGIST MANAGER OPERATIONS RESEARCH CORINNE RITTER M.D.Performed By: #### URMANISH, ADDONUAPLUS #### [place] [address] RIXEerqhfy0Htv2: Cleaned MeterNoUNC Hospitals Hills[facility] Campus Physician GroupComment on above:Result Comment: PERFORMED BY: [place] [address] PATHOLOGIST MANAGER OPERATIONS RESEARCH CORINNE RITTER M.D.Performed By: #### URMANISH, ADDONUAPLUS #### [address] [place] [address] USAGlucose [Mass/Vol]173 mg/dLNormBroward Health North Physician GroupComment on above:Result Comment: Random Glucose Reference Range is dependent on time and content of last meal. Glucose of more than 200 mg/dL in a nonstressed, ambulatory subject supports the diagnosis of Diabetes Mellitus.Performed By: #### URMANISH, ADDONUAPLUS #### [facility] [address] [place] [address] USAHemoglobin A1c/Hemoglobin.total in BloodOrdered By: Blue Talbot on 21-00-8829TmU4x (Bld) [Mass fraction]Hemoglobin A1c percentageHigh4.3-5.6FMercy HospitalComment on above:Increased risk for diabetes: 5.7 - 6.4diabetes: >6.4glycemic control for adults with diabetes: <7.0LDL Cholesterol Measuredon 09-61-6180EJT Cholesterol Rehudjji05 mg/dLNormal0-100The [facility] Physician GroupComment on above:Result Comment: LDL ATP III CLASSIFICATION LDL less than 100 mg/dL Optimal LDL 100-129 mg/dL Near or above optimal LDL 130-159 mg/dL Borderline high LDL 160-189 mg/dL High LDL greater than 189 mg/dL Very highPerformed By: #### MONET, ADDONUAPLUS #### [facility] [address] [place] [address] USALipid Panelon 06-05-5467Qerglofvrtp [Mass/Vol]169 mg/dL Gneivf799-419Gvr [facility] Physician GroupComment on above:Result Comment: Chol less than 200 mg/dl low risk Chol 201-239 mg/dl borderline risk Chol 240 mg/dl and greater high riskPerformed By: #### URMANISH, ADDONUAPLUS #### [facility] [address] [place] [address] USACholesterol in HDL [Mass/Vol]20 mg/kFMis66-46Fmr [facility] Physician GroupComment on above:Result Comment: HDL CHOL ATP-III CLASSIFICATION Cardiovascular Risk HDL > or equal to 60 mg/dL LOW HDL < 40 mg/dL HIGHPerformed By: #### URMANISH, ADDONUAPLUS #### [facility] [address] [place] [address] USACholesterol.total/Cholesterol in HDL [Mass ratio]8.5 {ratio}Normal<5.0The [facility] Physician GroupComment on above:Performed By: #### RENETTA HEALYUAPLUS #### [facility] [address] [place] [address] USALDL Cholesterol,Calculated<63Qvokmt6-629Yyf [facility] Physician GroupComment on above:Result Comment: LDL ATP III CLASSIFICATION LDL less than 100 mg/dL Optimal LDL 100-129 mg/dL Near or above optimal LDL 130-159 mg/dL Borderline high LDL 160-189 mg/dL High LDL greater than 189 mg/dL Very highPerformed By: #### MONET, RENETTAUAPLUS #### [facility] [address] [place] [address] USATriglyceride w/Mnzjlq809 mg/dLHigh0-149The [facility] Physician GroupComment on above:Result Comment: TRIG ATP [...] and resulted.Performed By: #### MONET, ADDROSAURAUAPLUS #### [facility] [address] [place] [address] USAVLDL CHOLESTEROLNot performedNormalThe [facility] Physician GroupComment on above:Performed By: #### MONET, ADDROSAURAUAPLUS #### [facility] [address] [place] [address] USASerum or plasma total cholesterol/high density lipoprotein (HDL) cholesterol mass ratOrdered By: Blue Talbot on 01-06-2025 Cholesterol.total/Cholesterol in HDL [Mass ratio]Serum or plasma total cholesterol/high density lipoprotein (HDL) cholesterol mass rat<5.0Ohio[facility] Grant Medical CenterThyroid Stim Hormone w/Rflxon 53-71-1939Wgqraic Stim Hormone w/Rflx6.81 u[iU]/mLHigh0.45-5.33The [facility]/Main Line HospitalsComment on above:Performed By: #### MONET, ADDONUAPLUS #### [facility] [address] [place] [id number] USAThyrotropin [Units/volume] in Serum or PlasmaOrdered By: Blue Talbot on 16-94-6983RFW QnThyrotropin [Units/volume] in Serum or PlasmaHigh0.45-5.33[facility] Medical CenterThyroxine (T4) free [Mass/volume] in Serum or PlasmaOrdered By: Blue Talbot on 01-06-2025 Free T4 [Mass/Vol]Thyroxine (T4) free [Mass/volume] in Serum or Plasma0.61-1.12 [facility] Medical CenterTriglyceride [Mass/volume] in Serum or Plasma Ordered By: Blue Talbot on 74-93-3965Xvjhihdkdwba [Mass/Vol] Triglyceride [Mass/volume] in Serum or PlasmaHigh0-149Ohio[facility] Grant Medical CenterComment on above:If the triglyceride result is greater than 400, LDLC and related calculations cannot be calculated and resulted.TRIG ATP III CLASSIFICATIONTRIG less than 150 mg/dL NormalTRIG 150-199 mg/dL Borderline highTRIG 200-500 mg/dL High TRIG greater than 500 mg/dL Very highStandard traceable to the Center for Disease Conrtrol and Prevention (CDC) test method. Vitamin D 25 Hydroxy Totalon 46-81-8574Ozauouu D 25 Hydroxy Total17.3 ng/mLLow 30-100The [facility] Physician GroupComment on above:Result Comment: VITAMIN D STATUS 25(OH)VITAMIN D RANGE (ng/mL) Deficient <20 Insufficient 20 to <30 Sufficient 30 to 100 Reference: Ashley MF,Jodee NC, Marques-Willian GUEVARA, et al. Evaluation,treatment, and prevention of vitamin D deficiency; an Endocrine Society clinical practice guideline. JCEM. 2010; 96(7):1911-30. PERFORMED BY: [facility] [address] [place] [id number] PATHOLOGIST MANAGER OPERATIONS RESEARCH CORINNE RITTER M.D.Performed By: #### URDS, ADDONUAPLUS #### [facility] [address] [place] [id number] [facility] HEALTH CARE CORPORATIONVitamin D+Metabolites [Mass/volume] in Serum or Plasma Ordered By: Blue Talbot on 71-20-1522Yqgrlwl D+Metabolites [Mass/Vol] Vitamin D+Metabolites [Mass/volume] in Serum or XmzzpgCtk25-173FxwlzozweOhiohealth Grant Medical CenterComment on above:VITAMIN D STATUS 25(OH)VITAMIN D RANGE (ng/mL) Deficient <20 Insufficient 20 to <69Sglgrmwnhv69 to 100Reference: Ashley MF,Jodee BOB, Christina GUEVARA, et al. Evaluation,treatment, and prevention of vitamin D deficiency; an Endocrine Society clinical practice guideline. JCEM. 2010; 96(7):1911-30.Alanine aminotransferase [Enzymatic activity/volume] in Serum or PlasmaOrdered By: Guillermina Shetty on 66-36-7703UOU [Catalytic activity/Vol]Alanine aminotransferase [Enzymatic activity/volume] in Serum or Plasma7-52Ohio[facility] Medical CenterAlbumin [Mass/volume] in Serum or Plasma by Bromocresol green (BCG) dye binding methoOrdered By: Guillermina Shetty on 79-98-1073Uslhxxd BCG dye [Mass/Vol]Albumin [Mass/volume] in Serum or Plasma by Bromocresol green (BCG) dye binding metho3.5-5.7FMercy HospitalAlkaline phosphatase [Enzymatic activity/volume] in Serum or PlasmaOrdered By: Guillermina Shetty on 89-86-4660YTH [Catalytic activity/Vol] Alkaline phosphatase [Enzymatic activity/volume] in Serum or Dnyguo81-523 [facility] CenterAmphetamine Screen Ql (U)Ordered By: Guillermina Shetty on 38-18-5510Osihheskaxle Ql (U)Amphetamines screenNegativeOhiohealth Grant Medical CenterAppearance of UrineOrdered By: Guillermina Shetty on 09-18-1576Yhxkyeyoay (U)Urine appearanceCleTrinity Health System [facility] Aspartate aminotransferase [Enzymatic activity/volume] in Serum or PlasmaOrdered By: Guillermina Shetty on 93-59-7994FAM [Catalytic activity/Vol]Aspartate aminotransferase [Enzymatic activity/volume] in Serum or Mdsgyl41-28ZdilssihhOhiohealth Grant Medical CenterBacteria [Presence] in Urine by AutomatedOrdered By: Guillermina Shetty on 04-22-3094Plcryndh Auto Ql (U)Bacteria [Presence] in Urine by AutomatedNone SeenOhiohealth Grant Medical CenterBarbiturates [Presence] in Urine by Screen methodOrdered By: Guillermina Shetty on 46-85-5181Xqbvribvwuat Screen Ql (U)Barbiturates [Presence] in Urine by Screen methodNegativeOhiohealth Grant Medical CenterBasophils Auto (Bld) [#/Vol]Ordered By: Guillermina Shetty on 05-25-9482Hcwrcvsxy (Bld) [#/Vol]Automated basophil count0.0-0.2FMercy HospitalBasophils/100 WBC Auto (Bld)Ordered By: Guillermina Shetty on 45-89-0400Zfkrnuahj/100 WBC (Bld)Automated basophil %.Ohio[facility] Grant Medical CenterBenzodiazepines Screen Ql (U)Ordered By: Guillermina Shetty on 50-51-7960Axmrxbucsyoeqnv Ql (U)Benzodiazepines [Presence] in Urine by Screen methodNegativeOhiohealth Grant Medical CenterBenzoylecgonine [Presence] in Urine by Screen methodOrdered By: Guillermina Shetty on 88-83-8145Kmfgimyqlsvqoql Screen Ql (U)Benzoylecgonine [Presence] in Urine by Screen methodNegative [facility] Medical CenterBilirubin Test strip Ql (U)Ordered By: Guillermina Shetty on 04-08-2661Ougwaiydk Ql (U)Bilirubin.total [Presence] in Urine by Test stripNegativeOhiohealth Grant Medical CenterBilirubin.total [Mass/volume] in Serum or PlasmaOrdered By: Guillermina Shetty on 71-75-5658Slgeviehp [Mass/Vol] Bilirubin.total [Mass/volume] in Serum or PlasmaHigh0.3-1.0Ohio[facility] Grant Medical CenterComment on above:Samples from patients who have taken Naproxen have shown spurious elevation in Total Bilirubin levels. A metabolite of Naproxen, O-desmethylnaproxen, has been shown to interfere with the Iza-Kayleen method for measuring Total Bilirubin.Calcium [Mass/volume] in Serum or PlasmaOrdered By: Guillermina Shetty on 45-50-6206Tjkhesz [Mass/Vol] Calcium [Mass/volume] in Serum or Plasma8.6-10.3FMercy HospitalCannabinoids [Presence] in Urine by Screen methodOrdered By: Guillermina Shetty on 52-54-4783Vdopbishvgql Screen Ql (U)Cannabinoids [Presence] in Urine by Screen methodHighNegativeOhiohealth Grant Medical CenterComment on above: These are unconfirmed results and should not be used for legal purposes. Drug Cut-Off Concentration: AMPH 1000 ng/mL KATHLEEN 200 ng/mL CARMEN 200 ng/mL COCM 300 ng/mL OP 300 ng/mL PCP 25 ng/mL THC 20 ng/mLCarbon dioxide, total [Moles/volume] in Serum or PlasmaOrdered By: Guillermina Shetty on 82-16-2713QO3 [Moles/Vol] Carbon dioxide, total [Moles/volume] in Serum or Djugvs43.0-31.0Ohio[facility] Medical CenterChloride [Moles/volume] in Serum or PlasmaOrdered By: Guillermina Shetty on 11-06-1689Kzuwoodf [Moles/Vol]Chloride [Moles/volume] in Serum or Zfvzxs38-414BfokbjtsxOhiohealth Grant Medical CenterColor Auto (U)Ordered By: Guillermina Shetty on 20-67-2810Kmjva (U)Color of Urine by AutoYellowOhiohealth Grant Medical CenterComprehensive Metabolic Panelon 80-59-1037[place]taah[place] [Mass/Vol]4.8 g/dLNormal3.5-5.7The [facility] Physician GroupComment on above: Performed By: #### URMANISH, ADDONUAPLUS #### [facility] [address] [place] [address] USAAlbumin/Globulin [Mass ratio]2.0 {ratio}NormalThe [facility] Physician GroupComment on above:Performed By: #### MONET, ADDONUAPLUS #### [facility] [address] [place] [address] USAALP [Catalytic activity/Vol]34 U/KVvzvnj34-613Dvs [facility] Physician GroupComment on above:Performed By: #### MONET, ADDONUAPLUS #### [facility] [address] [place] [address] USAALT [Catalytic activity/Vol]13 U/LNormal7-52The [facility] Physician GroupComment on above:Performed By: #### MONET, ADDONUAPLUS #### [facility] [address] [place] [address] USAAnion gap [Moles/Vol]10.8 mmol/LNormal6.0-15.0The [facility] Physician GroupComment on above:Performed By: #### MONET, ADDONUAPLUS #### [place] [id number] USAAST [Catalytic activity/Vol]17 U/ZDcwrut19-15Hty [facility] Physician GroupComment on above:Performed By: #### MONET, ADDONUAPLUS #### [place] [id number] USABilirubin [Mass/Vol]1.3 mg/dLHigh0.3-1.0The [facility] Physician GroupComment on above:Result Comment: Samples from patients who have taken Naproxen have shown spurious elevation in Total Bilirubin levels. A metabolite of Naproxen, O-desmethylnaproxen, has been shown to interfere with the Jenaleik-Kallief method for measuring Total Bilirubin.Performed By: #### MONET, ADDONUAPLUS #### [place] [id number] USACalcium [Mass/Vol]9.5 mg/dLNormal8.6-10.3The [facility] Physician GroupComment on above:Performed By: #### MONET, ADDONUAPLUS #### [address] [address] USAChloride [Moles/Vol]103 mmol/GNulqfh75-084Ndo [facility] Physician GroupComment on above:Performed By: #### MONET, ADDONUAPLUS #### [address] [address] USACO2 [Moles/Vol]29.4 mmol/MQpuqsc93.0-31.0The [facility] Physician GroupComment on above:Performed By: #### MONET, ADDONUAPLUS #### [facility] [address] [place] [address] USACreatinine [Mass/Vol]1.05 mg/dLNormal0.70-1.30The [facility] Physician GroupComment on above:Performed By: #### MONET, ADDONUAPLUS #### [facility] [address] [place] [address] USACreatinine Clr Calc Onyyddzl932.37NormBroward Health North Physician GroupComment on above:Result Comment: PERFORMED BY: [place] [address] PATHOLOGIST MANAGER OPERATIONS RESEARCH CORINNE RITTER M.D.Performed By: #### MONET, ADDONUAPLUS #### [place] [address] USAGFR/1.73 sq M.predicted MDRD (S/P/Bld) [Vol rate/Area] mL/min/{1.73_m2}NormalThe [facility] Physician GroupComment on above:Performed By: #### MONET, ADDONUAPLUS #### [facility] [address] [place] [address] USAGlobulin (S) [Mass/Vol]2.4 g/dLTampa General Hospital Physician GroupComment on above:Performed By: #### MONET, ADDONUAPLUS #### [place] [address] USAGlucose [Mass/Vol]185 mg/bYLlxs23-064Sdm [facility] Physician GroupComment on above:Result Comment: Random Glucose Reference Range is dependent on time and content of last meal. Glucose of more than 200 mg/dL in a nonstressed, ambulatory subject supports the diagnosis of Diabetes Mellitus. ADA recommended reference rangePerformed By: #### MONET, ADDONUAPLUS #### [facility] [address] [place] [address] USAPotassium [Moles/Vol]4.2 mmol/LNormal3.5-5.1The [facility] Center Physician GroupComment on above:Performed By: #### MONET, ADDONUAPLUS #### [facility] [address] [place] [address] USAProtein [Mass/Vol]7.2 g/dLNormal6.4-8.9The [facility] Physician GroupComment on above:Performed By: #### URDS, ADDONUAPLUS #### [facility] [address] [place] [address] USASodium [Moles/Vol]139 mmol/SFrcwcl769-024Bnp [facility] Physician GroupComment on above:Performed By: #### URDS, ADDONUAPLUS #### [facility] [address] [place] [address] USAUrea nitrogen [Mass/Vol]16 mg/dLNormal7-25The [facility] Physician GroupComment on above:Performed By: #### URDS, ADDONUAPLUS #### [place] [address] USACreatinine [Mass/volume] in Serum or PlasmaOrdered By: Guillermina Shetty on 59-05-8726Wmvuyidsbb [Mass/Vol]Creatinine [Mass/volume] in Serum or Plasma0.70-1.30[facility] Medical CenterDipstick and Microscopicon 32-43-9707Jcooysdmqf (U)ClearNormalClearThe [facility] Physician GroupComment on above:Order Comment: Name Collection Type:: Clean-Voided MidstreamPerformed By: #### URDS, ADDONUAPLUS #### [place] [address] USABacteria,UrineNone SeenNormalNone SeenThe [facility] Physician GroupComment on above:Order Comment: Name Collection Type:: Clean- Voided MidstreamPerformed By: #### URDS, ADDONUAPLUS #### [place] [address] USABilirubin,UrineNegativeNormalNegativeThe [facility] Physician GroupComment on above:Order Comment: Name Collection Type:: Clean- Voided MidstreamPerformed By: #### URDS, ADDONUAPLUS #### [place] [address] USAColor (U)YellowNormalYellowThe [facility] Physician Group Comment on above:Order Comment: Name Collection Type:: Clean-Voided Midstream Performed By: #### URDS, ADDONUAPLUS #### [place] [address] USAGlucose Ql (U)NormalNormalNormalThe [facility] Physician GroupComment on above:Order Comment: Name Collection Type:: Clean-Voided MidstreamPerformed By: #### URDS, ADDONUAPLUS #### [place] [address] USAHyaline Casts,UrineNoneNormal0-8The [facility] Physician GroupComment on above:Order Comment: Name Collection Type:: Clean-Voided MidstreamPerformed By: #### URDS, ADDONUAPLUS #### [place] [address] USAKetones Ql (U)NegativeNormalNegativeThe [facility] Physician GroupComment on above:Order Comment: Name Collection Type:: Clean- Voided MidstreamPerformed By: #### URDS, ADDONUAPLUS #### [place] [address] USALeukocyte esterase Test strip Ql (U)NegativeNormalNegative The [facility] Physician GroupComment on above:Order Comment: Name Collection Type:: Clean-Voided MidstreamPerformed By: #### URDS, ADDONUAPLUS #### [place] [address] USAMucus,Urine2+Critically abnormalThe [facility] Physician GroupComment on above:Order Comment: Name Collection Type:: Clean-Voided MidstreamResult Comment: PERFORMED BY: [place] [address] PATHOLOGIST MANAGER OPERATIONS RESEARCH CORINNE RITTER M.D.Performed By: #### URDS, ADDONUAPLUS #### [place] [address] USANitrite,UrineNegativeNormalNegativeMelbourne Regional Medical Center Physician GroupComment on above:Order Comment: Name Collection Type:: Clean-Voided MidstreamPerformed By: #### URDS, ADDONUAPLUS #### [place] [address] USAOccult Blood,UrineNegativeNormalNegativeThe [facility] Physician GroupComment on above:Order Comment: Name Collection Type:: Clean- Voided MidstreamResult Comment: PERFORMED BY: [place] [address] PATHOLOGIST MANAGER OPERATIONS RESEARCH CORINNE RITTER M.D.Performed By: #### URDS, ADDONUAPLUS #### [place] [address] USApH (U)6.0 [pH]Normal5.0-9.0The [facility] Physician Group Comment on above:Order Comment: Name Collection Type:: Clean-Voided Midstream Performed By: #### URDS, ADDONUAPLUS #### [place] [address] USAProtein (U) [Mass/Vol]20 mg/dLHighNegativeThe [facility] Physician GroupComment on above:Order Comment: Name Collection Type:: Clean- Voided MidstreamPerformed By: #### URDS, ADDONUAPLUS #### [place] [address] USARBC,Sjjrh6-0Kzzjmk6-6Yuv [facility] Physician GroupComment on above:Order Comment: Name Collection Type:: Clean-Voided MidstreamPerformed By: #### URDS, ADDONUAPLUS #### [place] [address] USASpecificy Aguila,Urine1.617Lxopnz9.001-1.030The [facility] Physician GroupComment on above:Order Comment: Name Collection Type:: Clean- Voided MidstreamPerformed By: #### URDS, ADDONUAPLUS #### [place] [address] USASquamous Epithelial Cell,Wdwrm5-1Klyblw3-9Qbc [facility] Physician GroupComment on above:Order Comment: Name Collection Type:: Clean- Voided MidstreamPerformed By: #### URDS, ADDONUAPLUS #### [place] [address] USAUrobilinogen,UrineNormalNormalNormalThe [facility] Physician GroupComment on above:Order Comment: Name Collection Type:: Clean- Voided MidstreamPerformed By: #### URDS, ADDONUAPLUS #### [place] [address] USAWBC,Mhlil5-3Hlajvs2-8Znp [facility] Physician GroupComment on above:Order Comment: Name Collection Type:: Clean-Voided MidstreamPerformed By: #### URDS, ADDONUAPLUS #### [place] [address] USADrug Screen,Urineon 56-24-2744Wcptoxdnwzx Screen,Urine NegativeNormalNegativeThe [facility] Physician GroupComment on above:Performed By: #### URDS, ADDONUAPLUS #### [place] [address] USABarbiturate Screen,UrineNegativeNormalNegativeThe [facility] Physician GroupComment on above:Performed By: #### URDS, ADDONUAPLUS #### [place] [address] USABenzodiazepines Screen,UrineNegativeNormalNegativeThe [facility] Physician GroupComment on above:Performed By: #### URDS, ADDONUAPLUS #### [place] [address] USACannabinoid Screen,UrinePositiveHighNegativeThe [facility] Physician GroupComment on above:Result Comment: These are unconfirmed results and should not be used for legal purposes. Drug Cut-Off Concentration: AMPH 1000 ng/mL KATHLEEN 200 ng/mL CARMEN 200 ng/mL COCM 300 ng/mL OP 300 ng/mL PCP 25 ng/mL THC 20 ng/mL PERFORMED BY: [place] [address] PATHOLOGIST MANAGER OPERATIONS RESEARCH CORINNE RITTER M.D.Performed By: #### URDS, ADDONUAPLUS #### [facility] [address] [place] [address] USACocaine Screen,UrineNegativeNormalNegativeThe [facility] Physician GroupComment on above:Performed By: #### URDS, ADDONUAPLUS #### [facility] [address] [place] [address] USAOpiate Screen,UrineNegativeNormalNegativeThe [facility] Physician GroupComment on above:Performed By: #### URDS, ADDONUAPLUS #### [facility] [address] [place] [address] USAPhencyclidine Screen,UrineNegativeNormalNegativeThe [facility] Physician GroupComment on above:Performed By: #### URDS, ADDONUAPLUS #### [facility] [address] [place] [address] USAEosinophils Auto (Bld) [#/Vol]Ordered By: Guillermina Shetty on 66-28-9473Npkpnuxifqy (Bld) [#/Vol]Automated eosinophil count0.0-0.45 [facility] CenterEosinophils/100 WBC Auto (Bld)Ordered By: Guillermina Shetty on 69-52-4682Dvtsfquawrk/100 WBC (Bld)Automated eosinophil %. [facility] CenterEpithelial cells.squamous [#/area] in Urine sediment by Automated countOrdered By: Guillermina Shetty on 01-77-5009Tttwqkstqa cells.squamous Auto (Urine sed) [#/Area]Epithelial cells.squamous [#/area] in Urine sediment by Automated count0-2FMercy HospitalErythrocyte distribution width Auto (RBC) [Ratio]Ordered By: Guillermina Shetty on 01-05-2025 Erythrocyte distribution width (RBC) [Ratio]Erythrocyte distribution width [Ratio] by Automated count12.0-14.8[facility] Medical CenterErythrocyte morphology finding [Identifier] in BloodOrdered By: Guillermina Shetty on 99-80-5490DON morphology finding Nom (Bld)RBC morphologyNormalOhiohealth Grant Medical CenterErythrocytes [#/area] in Urine sediment by Automated countOrdered By: Guillermina Shetty on 88-87-8482PIL Auto (Urine sed) [#/Area]Erythrocytes [#/area] in Urine sediment by Automated count0-4FMercy HospitalEthanol [Mass/volume] in Serum or PlasmaOrdered By: Guillermina Shetty on 61-05-2265Mqlzjwo [Mass/Vol]Ethanol [Mass/volume] in Serum or PlasmaOhiohealth Grant Medical CenterComment on above:Test not performedEthyl Alcohol Profile on 19-37-0269Rmhjwmc [Mass/Vol]mg/dLNoUNC Hospitals Hillsborough Campus Physician [facility] CenterComment on above:Performed By: #### URDS, ADDONUAPLUS #### [facility] [address] [place] [address] USAPercent EthanolNot performedNoUniversity Hospitals Conneaut Medical CenterComment on above:Result Comment: PERFORMED BY: [place] [address] PATHOLOGIST MANAGER OPERATIONS RESEARCH CORINNE RITTER M.D.Performed By: #### MONET, ADDONUAPLUS #### [facility] [address] [place] [address] USAGlobulin Calc (S) [Mass/Vol]Ordered By: Guillermina Shetty on 76-54-8145Trkvbkkd (S) [Mass/Vol]Serum globulin measurement by calculation (mass/volume)[facility] Medical CenterGlucose Glucometer (BldC) [Mass/Vol]Ordered By: Guillermina Shetty on 02-04-4912Obmxbgt [Mass/Vol]Capillary blood glucose measurement by glucometer (mass/volume)[facility] Medical CenterComment on above:Random Glucose Reference Range is dependent on time and content of last meal. Glucose of more than 200 mg/dL in a nonstressed, ambulatory subject supports the diagnosis of Diabetes Mellitus.Glucose Poct Glucometerson 76-35-3623Qyvasbt9Mxn3: Cleaned MeterNoUniversity Hospitals Conneaut Medical CenterComment on above:Result Comment: PERFORMED BY: [address] [address] PATHOLOGIST MANAGER OPERATIONS RESEARCH CORINNE RITTER M.D.Performed By: #### MONET, ADDONUAPLUS #### [facility] [address] [place] [address] USAGlucose [Mass/Vol]185 mg/dLNoUNC Hospitals Hillsborough Campus Physician GroupComment on above:Result Comment: Random Glucose Reference Range is dependent on time and content of last meal. Glucose of more than 200 mg/dL in a nonstressed, ambulatory subject supports the diagnosis of Diabetes Mellitus.Performed By: #### URMANISH, ADDONUAPLUS #### [facility] [address] [place] [address] USAGlucose [Mass/Vol]143 mg/dLNoUNC [facility]als Hills[facility] Physician GroupComment on above:Result Comment: Random Glucose Reference Range is dependent on time and content of last meal. Glucose of more than 200 mg/dL in a nonstressed, ambulatory subject supports the diagnosis of Diabetes Mellitus. PERFORMED BY: [place] [address] PATHOLOGIST MANAGER OPERATIONS RESEARCH CORINNE RITTER M.D.Performed By: #### MONET, ADDONUAPLUS #### [facility] [address] [place] [id number] USAGlucose [Mass/volume] in Serum or PlasmaOrdered By: Guillermina Shetty on 52-04-6600Doxwqqr [Mass/Vol]Glucose [Mass/volume] in Serum or AzfkonCjsr58-577EhiizyeqqOhiohealth Grant Medical CenterComment on above:ADA recommended reference rangeRandom Glucose Reference Range is dependent on time and content of last meal. Glucose of more than 200 mg/dL in a nonstressed, ambulatory subject supports the diagnosisof Diabetes Mellitus.Glucose [Mass/volume] in Urine by Test stripOrdered By: Guillermina Shetty on 01-05-2025 Glucose Test strip (U) [Mass/Vol]Glucose [Mass/volume] in Urine by Test strip NormalOhiohealth Grant Medical CenterHematocrit Auto (Bld) [Volume fraction] Ordered By: Guillermina Shetty on 00-40-7311Nmqsmjgopq (Bld) [Volume fraction] Hematocrit [Volume Fraction] of Blood by Automated count38.8-50.0[facility] Medical CenterHemoglobin Test strip Ql (U)Ordered By: Guillermina Shetty on 95-45-8547Ggvvikmjhq Ql (U)Hemoglobin [Presence] in Urine by Test strip NegativeOhiohealth Grant Medical CenterHemoglobin [Mass/volume] in Blood Ordered By: Guillermina Shetty on 69-36-8162Rzcuglwtlj (Bld) [Mass/Vol]Hemoglobin [Mass/volume] in Blood13.0-17.0[facility] Medical CenterHyaline casts [#/area] in Urine sediment by Automated countOrdered By: Guillermina Shetty on 82-12-7435Bulwlpo casts Auto (Urine sed) [#/Area]Hyaline casts [#/area] in Urine sediment by Automated count0-8[facility] Medical CenterKetones Test strip Ql (U)Ordered By: Guillermina Shetty on 33-67-1391Dxdopck Ql (U)Ketones [Presence] in Urine by Test stripNegativeOhiohealth Grant Medical Center Leukocyte esterase [Presence] in Urine by Test stripOrdered By: Guillermina Shetty on 22-85-2082Cqvnermkh esterase Test strip Ql (U)Leukocyte esterase [Presence] in Urine by Test stripNegativeOhiohealth Grant Medical CenterLeukocytes [#/area] in Urine sediment by Automated countOrdered By: Guillemrina Shetty on 91-91-6577YRA Auto (Urine sed) [#/Area]Leukocytes [#/area] in Urine sediment by Automated count0-4FMercy HospitalLeukocytes [#/volume] corrected for nucleated erythrocytes in Blood by Automated counOrdered By: Guillermina Shetty on 64-97-5706LJI corrected for nucl RBC Auto (Bld) [#/Vol] Leukocytes [#/volume] corrected for nucleated erythrocytes in Blood by Automated coun4.1-10.5FMercy HospitalLymphocytes Auto (Bld) [#/Vol] Ordered By: Guillermina Shetty on 71-48-9700Xhhctctutow (Bld) [#/Vol]Lymphocytes [#/volume] in Blood by Automated count1.00-4.8[facility] Lymphocytes/100 WBC Auto (Bld)Ordered By: Guillermina Shetty on 01-05-2025 Lymphocytes/100 WBC (Bld)Lymphocytes/100 leukocytes in Blood by Automated count. [facility] CenterMCH Auto (RBC) [Entitic mass]Ordered By: Guillermina Shetty on 39-91-9734SAM (RBC) [Entitic mass]MCH [Entitic mass] by Automated count27.5-35.2FMemorial Health System Marietta Memorial HospitalHC Auto (RBC) [Mass/Vol]Ordered By: Guillermina Shetty on 18-57-9366VIIH (RBC) [Mass/Vol]MCHC [Mass/volume] by Automated count32.5-35.6FMercy HospitalMCV Auto (RBC) [Entitic vol]Ordered By: Guillermina Shetty on 65-21-6512RPO (RBC) [Entitic vol]MCV [Entitic volume] by Automated count83.5-101[facility] Medical CenterMonocyte distribution width [Entitic volume] in Blood by Automated Ordered By: Guillermina Shetty on 81-02-2980Qofejeve distribution width Auto (Bld) [Entitic vol]Monocyte distribution width [Entitic volume] in Blood by Automated 0.00-20.00[facility] Medical CenterMonocytes Auto (Bld) [#/Vol]Ordered By: Guillermina Shetty on 11-57-2908Gozksuuqd (Bld) [#/Vol]Automated blood monocyte count0.0-0.8[facility] Medical CenterMonocytes/100 WBC Auto (Bld) Ordered By: Guillermina Shetty on 52-41-1529Iibrzbnms/100 WBC (Bld)Automated monocyte %.Ohio[facility] Medical CenterMucus [Presence] in Urine by AutomatedOrdered By: Guillermina Shetty on 23-83-6417Lyjge Auto Ql (U)Mucus [Presence] in Urine by AutomatedAbnormalOhiohealth Grant Medical Center Neutrophils Auto (Bld) [#/Vol]Ordered By: Guillermina Shetty on 01-05-2025 Neutrophils (Bld) [#/Vol]Neutrophils [#/volume] in Blood by Automated count 1.8-7.7FMercy HospitalNeutrophils/100 WBC Auto (Bld)Ordered By: Guillermina Shetty on 24-50-0714Xqzgprpnojl/100 WBC (Bld)Automated neutrophil % .[facility] Medical CenterNitrite Test strip Ql (U)Ordered By: Guillermina Shetty on 72-36-0982Dtyxppy Ql (U)Nitrite [Presence] in Urine by Test strip NegativeOhiohealth Grant Medical CenterNo Panel InformationOrdered By: Guillermina Shetty on 78-18-1626Qdwbwolni GFR (CKD-EPI)> 60.0 mL/MinOhiohealth Grant Medical CenterPharmacy Creatinine Clearance (Duoh594.37[facility] Medical CenterNucleated erythrocytes [Presence] in Blood by Automated countOrdered By: Guillermina Shetty on 22-06-8545Wggexquzo RBC Auto Ql (Bld) Nucleated erythrocytes [Presence] in Blood by Automated count0-0.5FMercy HospitalOpiates [Presence] in Urine by Screen methodOrdered By: Guillermina Shetty on 31-09-7529Ldidwmn Screen Ql (U)Opiates [Presence] in Urine by Screen methodNegativeOhiohealth Grant Medical CenterPhencyclidine Screen Ql (U)Ordered By: Guillermina Shetty on 91-10-0275Tspofxhrbjxdb Ql (U)Phencyclidine [Presence] in Urine by Screen methodNegativeOhiohealth Grant Medical Center Platelet adequacy [Presence] in Blood by Light microscopyOrdered By: Guillermina Shetty on 28-79-0358Rdoxkojdk LM Ql (Bld)Platelet adequacy [Presence] in Blood by Light microscopyNormalOhiohealth Grant Medical CenterPlatelet mean volume Auto (Bld) [Entitic vol]Ordered By: Guillermina Shetty on 97-81-9143Inhkptkd mean volume (Bld) [Entitic vol]Platelet mean volume [Entitic volume] in Blood by Automated count6.6-10.1FMercy HospitalPlatelet morphology finding [Identifier] in BloodOrdered By: Guillermina Shetty on 34-71-9334Jyjbnbrd morphology finding Nom (Bld)Platelet morphology finding [Identifier] in Blood NormalOhiohealth Grant Medical CenterPlatelets Auto (Bld) [#/Vol]Ordered By: Guillermina Shetty on 88-97-2265Hbfvdbktp (Bld) [#/Vol]Platelets [#/volume] in Blood by Automated iddhf951-758IvcctlogwOhiohealth Grant Medical CenterPotassium [Moles/volume] in Serum or PlasmaOrdered By: Guillermina Shetty on 01-05-2025 Potassium [Moles/Vol]Potassium [Moles/volume] in Serum or Plasma3.5-5.1FMercy HospitalProtein Test strip (U) [Mass/Vol]Ordered By: Guillermina Shetty on 55-16-0985Qskeirq (U) [Mass/Vol]Protein [Mass/volume] in Urine by Test stripHighNegativeOhiohealth Grant Medical CenterProtein [Mass/volume] in Serum or PlasmaOrdered By: Guillermina Shetty on 82-60-2890Yuxswzo [Mass/Vol] Protein [Mass/volume] in Serum or Plasma6.4-8.9[facility] RBC Auto (Bld) [#/Vol]Ordered By: Guillermina Shetty on 98-98-0817PAF (Bld) [#/Vol] Erythrocytes [#/volume] in Blood by Automated count3.90-5.60[facility] Medical Centercan and CBCon 19-95-8791Ehxqiytbv (Bld) [#/Vol]0.0 10*3/uLNormal 0.0-0.2The [facility] Physician GroupComment on above:Performed By: #### URDS, ADDONUAPLUS #### [facility] [address] [place] [address] USABasophils/100 WBC (Bld)0.6 %Normal.The [facility] Physician GroupComment on above:Performed By: #### URDS, ADDONUAPLUS #### [facility] [address] [place] [address] USAEosinophils (Bld) [#/Vol]0.1 10*3/uLNormal0.0-0.45The [facility] Physician GroupComment on above:Performed By: #### URDS, ADDONUAPLUS #### [facility] [address] [place] [address] USAEosinophils/100 WBC (Bld)0.8 %Normal.The [facility] Physician GroupComment on above:Performed By: #### URDS, ADDONUAPLUS #### [facility] [address] [place] [address] USAErythrocyte distribution width (RBC) [Ratio]13.9 %Normal 12.0-14.8The [facility] Physician GroupComment on above:Performed By: #### URDS, ADDONUAPLUS #### [facility] [address] [place] [address] USAHematocrit (Bld) [Volume fraction]47.3 %Ufnkfk92.8-50.0The [facility] Physician GroupComment on above:Performed By: #### URDS, ADDONUAPLUS #### [facility] [address] [place] [address] USAHemoglobin (Bld) [Mass/Vol]16.8 g/jEEvewei80.0-17.0The [facility] Physician GroupComment on above:Performed By: #### URDS, ADDONUAPLUS #### [place] [address] USALymphocytes (Bld) [#/Vol]1.9 10*3/uLNormal1.00-4.8The [facility] Physician GroupComment on above:Performed By: #### URDS, ADDONUAPLUS #### [place] [address] USALymphocytes/100 WBC (Bld)24.7 %Normal.The [facility] Physician GroupComment on above:Performed By: #### URDS, ADDONUAPLUS #### [facility] [address] [place] [address] USAMCH (RBC) [Entitic mass]31.2 dzFesgqn77.5-35.2The [facility] Physician GroupComment on above:Performed By: #### URDS, ADDONUAPLUS #### [facility] [address] [place] [address] USAMCV (RBC) [Entitic vol]87.7 hCRlybts66.5-101The [facility] Physician GroupComment on above:Performed By: #### URDS, ADDONUAPLUS #### [facility] [address] [place] [address] USAMean Corpuscular HGB Conc35.6 g/aZJpxnol16.5-35.6The [facility] Physician GroupComment on above:Performed By: #### URMANISH, ADDONUAPLUS #### [place] [address] USAMonocytes (Bld) [#/Vol]0.5 10*3/uLNormal0.0-0.8The [facility] Physician GroupComment on above:Performed By: #### URMANISH, ADDONUAPLUS #### [place] [address] USAMonocytes/100 WBC (Bld)16.04 %Normal0.00-20.00The [facility] Physician GroupComment on above:Performed By: #### MONET, ADDONUAPLUS #### [place] [address] USAMonocytes/100 WBC (Bld)5.7 %Normal.The [facility] Physician GroupComment on above:Performed By: #### MONET, ADDONUAPLUS #### [place] [address] USANeutrophils (Bld) [#/Vol]5.4 10*3/uLNormal1.8-7.7The [facility] Physician GroupComment on above:Performed By: #### MONET, ADDONUAPLUS #### [place] [address] USANeutrophils/100 WBC (Bld)68.2 %Normal.The [facility] Physician GroupComment on above:Performed By: #### MONET, ADDONUAPLUS #### [place] [address] USANRBC%0.2 /100{WBC}Normal0-0.5The [facility] Physician Group Comment on above:Performed By: #### MONET, ADDONUAPLUS #### [place] [address] USAPlatelet EstimateNormalNormalNormalThe [facility] Physician GroupComment on above:Performed By: #### MONET, ADDONUAPLUS #### [address] [place] [address] USAPlatelet mean volume (Bld) [Entitic vol]8.1 fLNormal 6.6-10.1The [facility] Physician GroupComment on above:Performed By: #### MONET ADDONUAPLUS #### [place] [address] USAPlatelet MorphologyNormalNormalNormalThe [facility] Physician GroupComment on above:Result Comment: PERFORMED BY: [place] [address] PATHOLOGIST MANAGER OPERATIONS RESEARCH CORINNE RITTER M.D.Performed By: #### MOENT ADDONUAPLUS #### [place] [address] USAPlatelets (Bld) [#/Vol]159 10*3/aZLgrkoq232-412Alq [facility] Physician GroupComment on above:Performed By: #### MONET, ADDONUAPLUS #### [place] [address] USARBC (Bld) [#/Vol]5.40 10*6/uLNormal3.90-5.60The [facility] Physician GroupComment on above:Performed By: #### MONET ADDONUAPLUS #### [place] [address] USARBC morphology finding Nom (Bld)NormalNormalNormSheltering Arms Hospitale [facility] Physician GroupComment on above:Performed By: #### MONET, ADDONUAPLUS #### [place] [address] USAWBC (Bld) [#/Vol]7.9 10*3/uLNormal4.1-10.5The [facility] Physician GroupComment on above:Performed By: #### MONET ADDONUAPLUS #### [place] [address] USASerum or plasma albumin/globulin mass ratioOrdered By: Guillermina Shetty on 25-41-8551Cjdnhat/Globulin [Mass ratio]Serum or plasma albumin/globulin mass ratioFirelands Regional Medical CenterSerum or plasma anion gap determinationOrdered By: Guillermina Shetty on 91-91-1206Kjhox gap [Moles/Vol]Serum or plasma anion gap determination6.0-15.0[facility] Medical Centerodium [Moles/volume] in Serum or PlasmaOrdered By: Guillermina Shetty on 88-37-1270Emmxfw [Moles/Vol]Sodium [Moles/volume] in Serum or Plasma 136-145W[facility] Medical Centerpecific gravity Test strip (U) [Rel density]Ordered By: Guillermina Shetty on 59-49-6063Yjfapgof gravity (U) [Rel density]Specific gravity of Urine by Test strip1.001-1.030Ohio[facility] Grant Medical CenterUrea nitrogen [Mass/volume] in Serum or PlasmaOrdered By: Guillermina Shetty on 64-95-8042Xzey nitrogen [Mass/Vol]Urea nitrogen [Mass/volume] in Serum or Plasma7-25[facility] Medical CenterUrobilinogen Test strip (U) [Mass/Vol]Ordered By: Guillermina Shetty on 09-40-6687Uwtifitkbvhr (U) [Mass/Vol] Urobilinogen [Mass/volume] in Urine by Test stripNoHolzer HospitalWBC Auto (Bld) [#/Vol]Ordered By: Guillermina Shetty on 91-05-0440BFX (Bld) [#/Vol]Leukocytes [#/volume] in Blood by Automated count4.1-10.5FMercy HospitalpH Test strip (U)Ordered By: Guillermina Shetty on 98-59-3167hD (U)pH of Urine by Test strip5.0-9.0[facility] Medical CenterCapillary blood glucose measurement by glucometer (mass/volume)Ordered By: Blue Talbot on 07-38-1050Lhdjtls [Mass/Vol]329 mg/dLNoHolzer HospitalComment on above:Random Glucose Reference Range is [...] the diagnosis of Diabetes Mellitus. PERFORMED BY: [place] [id number] PATHOLOGIST MANAGER OPERATIONS RESEARCH BEKAH FREED M.D.Performed By: #### GLULS #### Point of Care testing ,Glucose Poct Glucometerson 91-48-9818Svqhnbq1Kmx5: Cleaned MeterTampa General Hospital Physician GroupComment on above:Result Comment: PERFORMED BY: [place] [address] PATHOLOGIST MANAGER OPERATIONS RESEARCH BEKAH FREED M.D.Performed By: #### GLULS #### Point of Care testing ,Glucose [Mass/Vol]336 mg/dLTampa General Hospital Physician GroupComment on above: Result Comment: Random Glucose Reference Range is dependent on time and content of last meal. Glucose of more than 200 mg/dL in a nonstressed, ambulatory subject supports the diagnosis of Diabetes Mellitus.Performed By: #### GLULS #### Point of Care testing ,Glucose [Mass/Vol]261 mg/dLTampa General Hospital Physician GroupComment on above: Result Comment: Random Glucose Reference Range is dependent on time and content of last meal. Glucose of more than 200 mg/dL in a nonstressed, ambulatory subject supports the diagnosis of Diabetes Mellitus. PERFORMED BY: [address] [address] PATHOLOGIST MANAGER OPERATIONS RESEARCH BEKAH FREED M.D.Performed By: #### GLULS #### Point of Care testing ,No Panel InformationOrdered By: Blue Talbot on 70-46-9806Asmylru Glucose CommentGlu2: cleaned [facility] CenterGlucose Poct Glucometerson 25-58-2388Pusrodq9Ugi6: Cleaned [facility] Physician GroupComment on above:Result Comment: PERFORMED BY: [address] [address] PATHOLOGIST MANAGER OPERATIONS RESEARCH BEKAH FREED M.D.Performed By: #### GLULS #### Point of Care testing ,Glucose [Mass/Vol]337 mg/dLTampa General Hospital Physician GroupComment on above: Result Comment: Random Glucose Reference Range is dependent on time and content of last meal. Glucose of more than 200 mg/dL in a nonstressed, ambulatory subject supports the diagnosis of Diabetes Mellitus.Performed By: #### GLULS #### Point of Care testing ,Zssanhj6Csu0: Cleaned MeterTampa General Hospital Physician GroupComment on above: Result Comment: PERFORMED BY: [place] [address] PATHOLOGIST MANAGER OPERATIONS RESEARCH BEKAH FREED M.D.Performed By: #### GLULS #### Point of Care testing ,Glucose [Mass/Vol]307 mg/dLTampa General Hospital Physician GroupComment on above: Result Comment: Random Glucose Reference Range is dependent on time and content of last meal. Glucose of more than 200 mg/dL in a nonstressed, ambulatory subject supports the diagnosis of Diabetes Mellitus.Performed By: #### GLULS #### Point of Care testing ,Enljsil6Tmj8: Cleaned MeterTampa General Hospital Physician GroupComment on above: Result Comment: PERFORMED BY: [place] [address] PATHOLOGIST MANAGER OPERATIONS RESEARCH BEKAH FREED M.D.Performed By: #### GLULS #### Point of Care testing ,Glucose [Mass/Vol]385 mg/dLTampa General Hospital Physician GroupComment on above: Result Comment: Random Glucose Reference Range is dependent on time and content of last meal. Glucose of more than 200 mg/dL in a nonstressed, ambulatory subject supports the diagnosis of Diabetes Mellitus.Performed By: #### GLULS #### Point of Care testing ,Onujizw3Pyf8: Cleaned MeterTampa General Hospital Physician GroupComment on above: Result Comment: PERFORMED BY: [place] [address] PATHOLOGIST MANAGER OPERATIONS RESEARCH BEKAH FREED M.D.Performed By: #### GLULS #### Point of Care testing ,Glucose [Mass/Vol]232 mg/dLTampa General Hospital Physician GroupComment on above: Result Comment: Random Glucose Reference Range is dependent on time and content of last meal. Glucose of more than 200 mg/dL in a nonstressed, ambulatory subject supports the diagnosis of Diabetes Mellitus.Performed By: #### GLULS #### Point of Care testing ,XR lumbar spine 2-3V*on 50-43-3521AP lumbar spine 2-3V*[facility] [place] [address] [place] [address] XRay Report Signed Patient: Tracie Ramirez MR#: [id number] : 2000 Acct:[id number] Age/Sex: 24 / M ADM Date: 08/01/24 Loc: Room: [address] [place] [address] Type: ADM IN Attending Dr: Blue Talbot [...] Tristan Bruno II, MD 08/03/242032 Signed By: 08/03/242035[facility] Physician GroupXR thoracic spine 2Von 75-80-6357BS thoracic spine 2VLANCASTER [facility]IP[facility] [place] [address] [place] [address] XRay Report Signed Patient: Tracie Ramirez MR#: [id number] : 2000 Acct:[id number] Age/Sex: 24 / M ADM Date: 08/01/24 Loc: Room: [address] [place] [address] Type: ADM IN Attending Dr: Blue Talbot [...] Tristan Bruno II, MD 08/03/242030 Signed By: 08/03/242032[facility] Physician GroupCholesterol [Mass/volume] in Serum or PlasmaOrdered By: Blue Talbot on 93-25-9318Dfzvfvngcpj [Mass/Vol]149 mg/gWFoydwb417-453LcuvmswxrOhiohealth Grant Medical CenterComment on above:Chol less than 200 mg/dl low riskChol 201-239 mg/dl borderline riskChol 240 mg/dl and greater high riskResult Comment: Chol less than 200 mg/dl low risk Chol 201-239 mg/dl borderline risk Chol 240 mg/dl and greater high riskPerformed By: #### GLULS #### Point of Care testing ,Cholesterol in LDL Calc [Mass/Vol]Ordered By: Blue Talbot on 15-69-9741Zzbkrgpdgxb in LDL [Mass/Vol][facility] Comment on above:Test not performedCholesterol in LDL [Mass/volume] in Serum or PlasmaOrdered By: Blue Talbot on 78-77-5867Xoznykmcglh in LDL [Mass/Vol]58 mg/dL0-100[facility] Medical CenterComment on above:LDL ATP III CLASSIFICATIONLDL less than 100 mg/dL OptimalLDL 100-129 mg/dL Near or above zbkpectRMV512-996 mg/dL Borderline highLDL 160-189 mg/dL HighLDL greater than 189 mg/dL Very highCholesterol in VLDL Calc [Mass/Vol]Ordered By: Blue Talbot on 09-28-1055Rnoaqjndjxo in VLDL [Mass/Vol]113 mg/dL [facility] CenterGlucose Poct Glucometerson 58-58-7134Xtsltaw [Mass/Vol]353 mg/dLNoUNC [facility]als Hillsborough Campus Physician GroupComment on above:Result Comment: Random Glucose Reference Range is dependent on time and content of last meal. Glucose of more than 200 mg/dL in a nonstressed, ambulatory subject supports the diagnosis of Diabetes Mellitus. PERFORMED BY: [address] [address] PATHOLOGIST MANAGER OPERATIONS RESEARCH BEKAH FREED M.D.Performed By: #### GLULS #### Point of Care testing ,Glucose [Mass/Vol]281 mg/dLTampa General Hospital Physician GroupComment on above: Result Comment: Random Glucose Reference Range is dependent on time and content of last meal. Glucose of more than 200 mg/dL in a nonstressed, ambulatory subject supports the diagnosis of Diabetes Mellitus. PERFORMED BY: [address] [address] PATHOLOGIST MANAGER OPERATIONS RESEARCH BEKAH FREED M.D.Performed By: #### MONET, ADDONUAPLUS #### [place] [address] IXSOerbxmy0Dxa9: Cleaned MeterNoUNC [facility]als Hillsborough Campus Physician GroupComment on above:Result Comment: PERFORMED BY: [place] [address] PATHOLOGIST MANAGER OPERATIONS RESEARCH BEKAH FREED M.D.Performed By: #### MONET, ADDONUAPLUS #### [place] [address] USAGlucose [Mass/Vol]296 mg/dLNoUNC [facility]als Hills[facility] Physician GroupComment on above:Result Comment: Random Glucose Reference Range is dependent on time and content of last meal. Glucose of more than 200 mg/dL in a nonstressed, ambulatory subject supports the diagnosis of Diabetes Mellitus.Performed By: #### MONET, ADDONUAPLUS #### [place] [address] USAGlucose [Mass/Vol]277 mg/dLNoUNC [facility] Physician GroupComment on above:Result Comment: Random Glucose Reference Range is dependent on time and content of last meal. Glucose of more than 200 mg/dL in a nonstressed, ambulatory subject supports the diagnosis of Diabetes Mellitus. PERFORMED BY: [place] [address] PATHOLOGIST MANAGER OPERATIONS RESEARCH BEKAH FREED M.D.Performed By: #### MONET, ADDONUAPLUS #### [place] [id number] USALDL Cholesterol Measuredon 05-49-6105ZRM Cholesterol Usbkzpgk76 mg/dLNormal0-100[facility] Physician GroupComment on above:Result Comment: LDL ATP III CLASSIFICATION LDL less than 100 mg/dL Optimal LDL 100-129 mg/dL Near or above optimal LDL 130-159 mg/dL Borderline high LDL 160-189 mg/dL High LDL greater than 189 mg/dL Very highPerformed By: #### GLULS #### Point of Care testing ,Lipid Panelon 87-72-9205CXH Cholesterol,CalculatedNot performedNormal0-100[facility] Physician [facility] CenterComment on above:Performed By: #### GLULS #### Point of Care testing ,Triglyceride w/Bshswv102 mg/dLHigh0-149[facility] Physician [facility] CenterComment on above:Result Comment: TRIG ATP III CLASSIFICATION [...] GLULS #### Point of Care testing ,VLDL XQKTQUCXEIW840 mg/dLNoOhio State Health Systeme [facility] Physician [facility] CenterComment on above: Performed By: #### GLULS #### Point of Care testing ,Serum or plasma high density lipoprotein (HDL) cholesterol measurementOrdered By: Blue Talbot on 63-17-9367Oijctrzdeou in HDL [Mass/Vol]22 mg/dLLow 23-92[facility] Medical CenterComment on above:HDL CHOL ATP-III CLASSIFICATION [...] on 08-02-2024 Cholesterol.total/Cholesterol in HDL [Mass ratio]6.8 {ratio}Normal<5.0[facility] Medical CenterComment on above:Performed By: #### GLULS #### Point of Care testing ,Thyroid Stim Hormone w/Rflxon 66-01-9499Uolpqjo Stim Hormone w/Rflx2.94 u[iU]/mLNormal0.45-5.33[facility] Physician [facility] CenterComment on above:Performed By: #### GLULS #### Point of Care testing ,Thyrotropin [Units/volume] in Serum or PlasmaOrdered By: Blue Talbot on 03-81-2733XYD Qn2.94 m[IU]/L0.45-5.33[facility] Triglyceride [Mass/volume] in Serum or PlasmaOrdered By: Blue Talbot on 82-84-9844Pmjrwicomovp [Mass/Vol]569 mg/dLHigh0-149[facility] CenterComment on above:If the triglyceride result is greater than 400, LDLC and related calculations cannot be calculated and resulted.TRIG ATP III CLASSIFICATIONTRIG less than 150 mg/dL NormalTRIG 150-199 mg/dL Borderline highTRIG 200-500 mg/dL High TRIG greater than 500 mg/dL Very highStandard traceable to the Center for Disease Conrtrol and Prevention (CDC) test method. Vitamin D 25 Hydroxy Totalon 43-20-3066Wxsufcd D 25 Hydroxy Total31.4 ng/mL Rmvdhr02-022Kdw [facility] Physician GroupComment on above:Result Comment: VITAMIN D STATUS 25(OH)VITAMIN D RANGE (ng/mL) Deficient <20 Insufficient 20 to <30 Sufficient 30 to 100 Reference: Jodee Shrestha, Christina GUEVARA, et al. Evaluation,treatment, and prevention of vitamin D deficiency; an Endocrine Society clinical practice guideline. JCEM. 2010; 96(7):1911-30. PERFORMED BY: [address] [place] [address] PATHOLOGIST MANAGER OPERATIONS RESEARCH BEKAH FREED M.D.Performed By: #### GLULS #### Point of Care testing ,Vitamin D+Metabolites [Mass/volume] in Serum or PlasmaOrdered By: Blue Talbot on 73-41-8203Guzlsxi D+Metabolites [Mass/Vol]31.4 ng/bX47-785VvrkuazhzOhiohealth Grant Medical CenterComment on above:VITAMIN D STATUS 25(OH)VITAMIN D RANGE (ng/mL) Deficient <20 Insufficient 20 to <77Drhrjdbmpv27 to 100Reference: Jodee Shrestha, Christina GUEVARA, et al. Evaluation,treatment, and prevention of vitamin D deficiency; an Endocrine Society clinical practice guideline. JCEM. 2010; 96(7):1911-30.Alanine aminotransferase [Enzymatic activity/volume] in Serum or PlasmaOrdered By: Octavio Patrick on 64-99-8065BFQ [Catalytic activity/Vol]16 U/LNormal7-52[facility] CenterComment on above:Performed By: #### GLULS #### Point of Care testing ,Albumin [Mass/volume] in Serum or Plasma by Bromocresol green (BCG) dye binding methoOrdered By: Octavio Patrick on 32-06-1356Fvgyqzz BCG dye [Mass/Vol]4.2 g/dL 3.5-5.7FMercy HospitalAlkaline phosphatase [Enzymatic activity/volume] in Serum or PlasmaOrdered By: Octavio Patrick on 54-68-3535LUA [Catalytic activity/Vol]43 U/NAqifgn58-166NhrgphnymOhiohealth Grant Medical Center Comment on above:Performed By: #### GLULS #### Point of Care testing ,Amphetamine Screen Ql (U)Ordered By: Octavio Patrick on 66-27-3213Ngjbcctkbbei Ql (U)NegativeNegativeOhiohealth Grant Medical CenterAspartate aminotransferase [Enzymatic activity/volume] in Serum or PlasmaOrdered By: Octavio Patrick on 76-33-0079JRM [Catalytic activity/Vol]12 U/YQvn83-43XjpkswlwbOhiohealth Grant Medical CenterComment on above:Result Comment: PERFORMED BY: [address] [place] [address] PATHOLOGIST MANAGER OPERATIONS RESEARCH BEKAH FREED M.D.Performed By: #### GLULS #### Point of Care testing ,Automated basophil %Ordered By: Octavio Patrick on 27-06-6682Qqeachjdu/100 WBC (Bld)0.6 %Normal.[facility] Medical CenterComment on above:Performed By: #### GLULS #### Point of Care testing ,Automated basophil countOrdered By: Octavio Patrick on 30-63-7704Mxcrcynyn (Bld) [#/Vol]0.1 10*3/uLNormal0.0-0.2FMercy HospitalComment on above:Result Comment: PERFORMED BY: [facility] [address] [place] [address] PATHOLOGIST MANAGER OPERATIONS RESEARCH BEKAH FREED M.D.Performed By: #### GLULS #### Point of Care testing ,Automated blood monocyte countOrdered By: Octavio Patrick on 63-82-9389Nmhflwjqp (Bld) [#/Vol]0.4 10*3/uLNormal0.0-0.8[facility] CenterComment on above:Performed By: #### GLULS #### Point of Care testing ,Automated eosinophil %Ordered By: Octavio Patrick on 22-66-2312Oqbfnbeinjb/100 WBC (Bld)0.7 %Normal.[facility] CenterComment on above:Performed By: #### GLULS #### Point of Care testing ,Automated eosinophil countOrdered By: Octavio Patrick on 98-12-9094Vwvibaimwem (Bld) [#/Vol]0.1 10*3/uLNormal0.0-0.45[facility] CenterComment on above:Performed By: #### GLULS #### Point of Care testing ,Automated monocyte %Ordered By: Octavio Patrick on 65-07-4481Vaofsgila/100 WBC (Bld)4.6 %Normal.[facility] CenterComment on above:Performed By: #### GLULS #### Point of Care testing ,Automated neutrophil %Ordered By: Octavio Patrick on 49-24-2303Bjlhdhcxszc/100 WBC (Bld)59.5 %Normal.[facility] CenterComment on above: Performed By: #### GLULS #### Point of Care testing ,Bacteria [Presence] in Urine by AutomatedOrdered By: Octavio Patrick on 27-01-9915Sjquhpom Auto Ql (U)None seen [HPF]None SeenOhiohealth Grant Medical CenterBarbiturates [Presence] in Urine by Screen methodOrdered By: Octavio Patrick on 88-19-6013Jnfqmitkflmd Screen Ql (U)NegativeNegativeOhiohealth Grant Medical CenterBenzodiazepines Screen Ql (U)Ordered By: Octavio Patrick on 06-62-6900Cmjickviyfeckuu Ql (U)NegativeNegativeOhiohealth Grant Medical CenterBenzoylecgonine [Presence] in Urine by Screen methodOrdered By: Octavio Patrick on 04-58-2678Zbwrewbxdnfbmfm Screen Ql (U)NegativeNegThe Christ HospitalBilirubin Test strip Ql (U)Ordered By: Octavio Patrick on 08-52-7137Bcqwognbq Ql (U)NegativeNegThe Christ Hospital Bilirubin.total [Mass/volume] in Serum or PlasmaOrdered By: Octavio Patrick on 72-73-0077Hfzycinyt [Mass/Vol]0.9 mg/dLNormal0.3-1.0[facility] CenterComment on above:Performed By: #### GLULS #### Point of Care testing ,Calcium [Mass/volume] in Serum or PlasmaOrdered By: Octavio Patrick on 08-01-2024 Calcium [Mass/Vol]9.4 mg/dLNormal8.6-10.3FMercy Hospital Comment on above:Performed By: #### GLULS #### Point of Care testing ,Cannabinoids [Presence] in Urine by Screen methodOrdered By: Octavio Patrick on 67-87-2212Jyrsietdohmh Screen Ql (U)NegativeNegThe Christ HospitalComment on above:These are unconfirmed results and should not be used for legal purposes. Drug Cut-Off Concentration: AMPH 1000 ng/mL KATHLEEN 200 ng/mL CARMEN 200 ng/mL COCM 300 ng/mL OP 300 ng/mL PCP 25 ng/mL THC 20 ng/mLCapillary blood glucose measurement by glucometer (mass/volume)Ordered By: Octavio Patrick on 84-91-1710Orgaogo [Mass/Vol]352 mg/dLMercy Health Urbana Hospital Comment on above:Random Glucose Reference Range [...] Serum or PlasmaOrdered By: Octavio Patrick on 74-67-8185HE0 [Moles/Vol]27.8 mmol/HBvsjov04.0-31.0[facility] CenterComment on above:Performed By: #### GLULS #### Point of Care testing ,Chloride [Moles/volume] in Serum or PlasmaOrdered By: Octavio Patrick on 78-02-1942Kyxfvjhw [Moles/Vol]98 mmol/YEpvbyf43-978NwjqbylcwOhiohealth Grant Medical CenterComment on above:Performed By: #### GLULS #### Point of Care testing ,Color of Urine by AutoOrdered By: Octavio Patrick on 01-79-8795Rwdov (U) Light-yellowNormalYellowOhiohealth Grant Medical CenterComment on above:Order Comment: Name Collection Type:: Clean-Voided MidstreamPerformed By: #### URDS, ADDONUAPLUS #### [place] [address] USAComplete Blood Count Auto Diffon 02-47-3551Mumr Corpuscular HGB Conc36.9 g/mERnqi12.5-35.6[facility] Physician [facility] CenterComment on above:Performed By: #### GLULS #### Point of Care testing ,Monocytes/100 WBC (Bld)15.15 %Normal0.00-20.00[facility] Physician [facility] Comment on above:Performed By: #### GLULS #### Point of Care testing ,NRBC%0.3 /100{WBC}Normal0-0.5[facility] Physician [facility] CenterComment on above: Performed By: #### GLULS #### Point of Care testing ,Comprehensive Metabolic Panelon 80-35-2543Paeplft LevelNormal3.5-5.7The [facility] Physician [facility] CenterComment on above:Result Comment: Specimen hemolyzed, redraw requestedPerformed By: #### GLULS #### Point of Care testing ,Albumin/Globulin [Mass ratio]Not performedNormalThe [facility] Physician [facility] Comment on above:Performed By: #### GLULS #### Point of Care testing ,Anion gap [Moles/Vol]Not performedNormal6.0-15.0[facility] Physician Group Comment on above:Performed By: #### GLULS #### Point of Care testing ,Aspartate Amino FenrlizmxqoTsryqu55-82Yer [facility] Physician GroupComment on above:Result Comment: Specimen hemolyzed, redraw requestedPerformed By: #### GLULS #### Point of Care testing ,Creatinine Clr Calc Ilptzpql090.07NoUNC Hospitals [facility] Physician GroupComment on above:Result Comment: PERFORMED BY: [facility] [place] [address] PATHOLOGIST MANAGER OPERATIONS RESEARCH BEKAH FREED M.D.Performed By: #### GLULS #### Point of Care testing ,GFR/1.73 sq M.predicted MDRD (S/P/Bld) [Vol rate/Area]mL/min/{1.73_m2}NormalThe [facility] Physician GroupComment on above:Performed By: #### GLULS #### Point of Care testing ,GlobulinNot performedNoUNC [facility]als [facility] Physician GroupComment on above: Performed By: #### GLULS #### Point of Care testing ,PotassiumNormal3.5-5.1The [facility] Physician GroupComment on above:Result Comment: Specimen hemolyzed, redraw requestedPerformed By: #### GLULS #### Point of Care testing ,QimmotZdjffv157-614Gml [facility] Physician GroupComment on above:Result Comment: Specimen hemolyzed, redraw requestedPerformed By: #### GLULS #### Point of Care testing ,Total ProteinNormal6.4-8.9The [facility] Physician GroupComment on above:Result Comment: Specimen hemolyzed, redraw requestedPerformed By: #### GLULS #### Point of Care testing ,Creatinine [Mass/volume] in Serum or PlasmaOrdered By: Octavio Patrick on 68-60-9973Ageyofxsno [Mass/Vol]1.02 mg/dLNormal0.70-1.30[facility] CenterComment on above:Performed By: #### GLULS #### Point of Care testing ,Dipstick and Microscopicon 36-31-8224Fuxbeyhs,UrineNone SeenNormalNone SeenMelbourne Regional Medical Center Physician GroupComment on above:Order Comment: Name Collection Type:: Clean-Voided MidstreamPerformed By: #### URDS, ADDONUAPLUS #### [place] [address] USABilirubin,UrineNegativeNormalNegativeThe [facility] Physician GroupComment on above:Order Comment: Name Collection Type:: Clean- Voided MidstreamPerformed By: #### URDS, ADDONUAPLUS #### [place] [address] USAGlucose Ql (U)>=1000HighNoUNC [facility] Physician GroupComment on above:Order Comment: Name Collection Type:: Clean-Voided MidstreamPerformed By: #### URDS, ADDONUAPLUS #### [place] [address] USAHyaline Casts,UrineNoneNormal0-8The [facility] Physician GroupComment on above:Order Comment: Name Collection Type:: Clean-Voided MidstreamPerformed By: #### URDS, ADDONUAPLUS #### [place] [address] USAMucus,UrineRareNormalThe [facility] Physician GroupComment on above:Order Comment: Name Collection Type:: Clean-Voided MidstreamResult Comment: PERFORMED BY: [place] [address] PATHOLOGIST MANAGER OPERATIONS RESEARCH BEKAH FREED M.D.Performed By: #### URDS, ADDONUAPLUS #### [place] [address] USANitrite,UrineNegativeNormalNegativeMelbourne Regional Medical Center Physician GroupComment on above:Order Comment: Name Collection Type:: Clean-Voided MidstreamPerformed By: #### URDS, ADDONUAPLUS #### [place] [address] USAOccult Blood,UrineNegativeNormalNegativeThe [facility] Physician GroupComment on above:Order Comment: Name Collection Type:: Clean- Voided MidstreamResult Comment: PERFORMED BY: [place] [address] PATHOLOGIST MANAGER OPERATIONS RESEARCH BEKAH FREED M.D.Performed By: #### URDS, ADDONUAPLUS #### [place] [address] USARBC,Yqbrw2-6Xlbgjz5-7Fau [facility] Physician GroupComment on above:Order Comment: Name Collection Type:: Clean-Voided MidstreamPerformed By: #### URDS, ADDONUAPLUS #### [place] [address] USASpecificy Aguila,Urine1.793Ypow2.001-1.030The [facility] Physician GroupComment on above:Order Comment: Name Collection Type:: Clean- Voided MidstreamPerformed By: #### URDS, ADDONUAPLUS #### [place] [address] USASquamous Epithelial Cell,Golgu2-0Wwfkdi3-6Gpn [facility] Physician GroupComment on above:Order Comment: Name Collection Type:: Clean- Voided MidstreamPerformed By: #### URDS, ADDONUAPLUS #### [place] [address] USAUrobilinogen,UrineNormalNormalNormalThe [facility] Physician GroupComment on above:Order Comment: Name Collection Type:: Clean- Voided MidstreamPerformed By: #### URDS, ADDONUAPLUS #### [place] [address] USAWBC,Dgioc5-3Oizawn3-3Dez [facility] Physician GroupComment on above:Order Comment: Name Collection Type:: Clean-Voided MidstreamPerformed By: #### URDS, ADDONUAPLUS #### [place] [address] USADrug Screen,Urineon 34-94-4199Bykxvfjpdup Screen,Urine NegativeNormalNegativeThe [facility] Physician GroupComment on above:Performed By: #### URDS, ADDONUAPLUS #### [place] [address] USABarbiturate Screen,UrineNegativeNormalNegativeThe [facility] Physician GroupComment on above:Performed By: #### URDS, ADDONUAPLUS #### [place] [address] USABenzodiazepines Screen,UrineNegativeNormalNegativeThe [facility] Physician GroupComment on above:Performed By: #### URDS, ADDONUAPLUS #### [place] [address] USACannabinoid Screen,UrineNegativeNormalNegativeThe [facility] Physician GroupComment on above:Result Comment: These are unconfirmed results and should not be used for legal purposes. Drug Cut-Off Concentration: AMPH 1000 ng/mL KATHLEEN 200 ng/mL CARMEN 200 ng/mL COCM 300 ng/mL OP 300 ng/mL PCP 25 ng/mL THC 20 ng/mL PERFORMED BY: [place] [address] PATHOLOGIST MANAGER OPERATIONS RESEARCH BEKAH FREED M.D.Performed By: #### URDS, ADDONUAPLUS #### [place] [address] USACocaine Screen,UrineNegativeNormalNegativeThe [facility] Physician GroupComment on above:Performed By: #### URDS, ADDONUAPLUS #### [place] [address] USAOpiate Screen,UrineNegativeNormalNegativeThe [facility] Physician GroupComment on above:Performed By: #### URDS, ADDONUAPLUS #### [place] [address] USAPhencyclidine Screen,UrineNegativeNormalNegativeThe [facility] Physician GroupComment on above:Performed By: #### URDS, ADDONUAPLUS #### [place] [address] USAECG 12 lead ECGon 33-73-5235ZOY 12 lead [facility] [place] [address] [place] [address] Electrocardiograph Report Signed Patient: Tracie Ramirez MR#: [id number] : 2000 Acct:[id number] Age/Sex: 24 / M ADM Date: 08/01/24 Loc: 1S Room: [address] [place] [address] Type: ADM IN Attending Dr: Blue Talbot [...] rhythm Normal ECG Confirmed by Lynnette Daniels ([id number]) on 08/02/2024 10:16:21 AM Referred By: Electronically Signed By: Lynnette Daniels Transcribed By: MUS Signed By Lynnette Daniels MD [address] [place] [address] Physician GroupEpithelial cells.squamous [#/area] in Urine sediment by Automated countOrdered By: Octavio Patrick on 08-01-2024 Epithelial cells.squamous Auto (Urine sed) [#/Area]1-2 [HPF]0-2FMercy HospitalErythrocyte distribution width [Ratio] by Automated count Ordered By: Octavio Patrick on 14-63-5579Ovcgkipaapz distribution width (RBC) [Ratio]13.7 %Csssxv23.0-14.8Ohio[facility] Grant Medical CenterComment on above: Performed By: #### GLULS #### Point of Care testing ,Erythrocytes [#/area] in Urine sediment by Automated countOrdered By: Octavio Patrick on 74-46-2217KJD Auto (Urine sed) [#/Area]1-2 [HPF]0-4FMercy HospitalErythrocytes [#/volume] in Blood by Automated countOrdered By: Octavio Patrick on 90-57-9347TUZ (Bld) [#/Vol]5.39 10*6/uLNormal3.90-5.60Ohio[facility] Grant Medical CenterComment on above:Performed By: #### GLULS #### Point of Care testing ,Ethanol [Mass/volume] in Serum or PlasmaOrdered By: Octavio Patrick on 08-01-2024 Ethanol [Mass/Vol]mg/dLNoHolzer HospitalComment on above: Performed By: #### GLULS #### Point of Care testing ,Ethanol [Mass/Vol][facility] CenterComment on above:Test not performedEthyl Alcohol Profileon 36-73-0068Xllvayo EthanolNot performedNormal [facility] Physician [facility] CenterComment on above:Result Comment: PERFORMED BY: [place] [address] PATHOLOGIST MANAGER OPERATIONS RESEARCH BEKAH FREED M.D.Performed By: #### GLULS #### Point of Care testing ,Globulin Calc (S) [Mass/Vol]Ordered By: Octavio Patrick on 18-37-8149Ismevdrw (S) [Mass/Vol][facility] Medical CenterComment on above:Test not performedGlucose Poct Glucometerson 12-54-2964Icdsjox [Mass/Vol]330 mg/dLNormal [facility] Physician [facility] CenterComment on above:Result Comment: Random Glucose Reference Range is dependent on time and content of last meal. Glucose of more than 200 mg/dL in a nonstressed, ambulatory subject supports the diagnosis of Diabetes Mellitus. PERFORMED BY: [place] [address] PATHOLOGIST MANAGER OPERATIONS RESEARCH BEKAH FREED M.D.Performed By: #### URDS, ADDONUAPLUS #### [place] [address] USAGlucose [Mass/Vol]251 mg/dLNoUNC Hospitals Hillsborough [facility] Physician [facility] CenterComment on above:Result Comment: Random Glucose Reference Range is dependent on time and content of last meal. Glucose of more than 200 mg/dL in a nonstressed, ambulatory subject supports the diagnosis of Diabetes Mellitus. PERFORMED BY: [place] [address] PATHOLOGIST MANAGER OPERATIONS RESEARCH BEKAH FREED M.D.Performed By: #### GLULS #### Point of Care testing ,Cdjbkuk1XtstpaNjvTampa General Hospital Physician [facility] CenterComment on above:Result Comment: Glu2: WILL NOTIFY DR/RN PERFORMED BY: [facility] [place] [address] PATHOLOGIST MANAGER OPERATIONS RESEARCH BEKAH FREED M.D.Performed By: #### GLULS #### Point of Care testing ,Glucose [Mass/volume] in Serum or PlasmaOrdered By: Octavio Patrick on 08-01-2024 Glucose [Mass/Vol]206 mg/gOZifa81-703KlhbyodenOhiohealth Grant Medical CenterComment on above:ADA recommended reference rangeRandom [...] by Test stripOrdered By: Octavio Patrick on 16-41-5030Dnsrfyo Test strip (U) [Mass/Vol]>=1000 mg/dLHighHarry S. Truman Memorial Veterans' HospitalalOhiohealth Grant Medical CenterHematocrit [Volume Fraction] of Blood by Automated count Ordered By: Octavio Patrick on 30-64-2499Wkkpkapvib (Bld) [Volume fraction]45.4 % Pibyci34.8-50.0Ohio[facility] Grant Medical CenterComment on above:Performed By: #### GLULS #### Point of Care testing ,Hemoglobin Test strip Ql (U)Ordered By: Octavio Patrick on 05-18-4954Toozzyuhnv Ql (U)NegativeNegativeOhiohealth Grant Medical CenterHemoglobin [Mass/volume] in BloodOrdered By: Octavio Patrick on 01-76-5399Zlbpwzkmvb (Bld) [Mass/Vol]16.8 g/qERlaeqp89.0-17.0[facility] Medical CenterComment on above:Performed By: #### GLULS #### Point of Care testing ,Hyaline casts [#/area] in Urine sediment by Automated countOrdered By: Octavio Patrick on 89-62-6711Shezqye casts Auto (Urine sed) [#/Area]None [LPF]0-8 [facility] Medical CenterKetones [Presence] in Urine by Test strip Ordered By: Octavio Patrick on 78-88-9156Rsbahgx Ql (U)1+HighNegativeOhiohealth Grant Medical CenterComment on above:Order Comment: Name Collection Type:: Clean-Voided MidstreamPerformed By: #### URDS, ADDONUAPLUS #### [facility] [address] [place], [place] [address] USALeukocyte esterase [Presence] in Urine by Test strip Ordered By: Octavio Patrick on 44-41-7767Azzzdqjyq esterase Test strip Ql (U) NegativeNormalNegThe Christ HospitalComment on above:Order Comment: Name Collection Type:: Clean-Voided MidstreamPerformed By: #### URDS, ADDONUAPLUS #### [facility] [address] [place], [place] [id number] USALeukocytes [#/area] in Urine sediment by Automated count Ordered By: Octavio Patrick on 28-05-4669JBS Auto (Urine sed) [#/Area]1-2 [HPF]0-4 [facility] Medical CenterLeukocytes [#/volume] corrected for nucleated erythrocytes in Blood by Automated counOrdered By: Octavio Patrick on 08-01-2024 WBC corrected for nucl RBC Auto (Bld) [#/Vol]8.6 10*3/uL4.1-10.5FMercy HospitalLeukocytes [#/volume] in Blood by Automated countOrdered By: Octavio Patrick on 18-18-9817WBN (Bld) [#/Vol]8.6 10*3/uLNormal4.1-10.5 [facility] CenterComment on above:Performed By: #### GLULS #### Point of Care testing ,Lymphocytes [#/volume] in Blood by Automated countOrdered By: Octavio Patrick on 51-66-4424Vsmbimjkiqb (Bld) [#/Vol]3.0 10*3/uLNormal1.00-4.8Ohio[facility] Grant Medical CenterComment on above:Performed By: #### GLULS #### Point of Care testing ,Lymphocytes/100 leukocytes in Blood by Automated countOrdered By: Octavio Patrick on 39-18-5671Jlgtzswcair/100 WBC (Bld)34.6 %Normal.Ohio[facility] Grant Medical CenterComment on above:Performed By: #### GLULS #### Point of Care testing ,MCH [Entitic mass] by Automated countOrdered By: Octavio Patrick on 55-86-0817RVU (RBC) [Entitic mass]31.1 kkYmolvn71.5-35.2FMercy Hospital Comment on above:Performed By: #### GLULS #### Point of Care testing ,MCHC Auto (RBC) [Mass/Vol]Ordered By: Octavio Patrick on 58-48-3797RESH (RBC) [Mass/Vol]36.9 g/rKSuqg76.5-35.6FMercy HospitalMCV [Entitic volume] by Automated countOrdered By: Octavio Patrick on 78-93-0272OBU (RBC) [Entitic vol]84.3 bIOjdrmc86.5-101Ohio[facility] Grant Medical CenterComment on above:Performed By: #### GLULS #### Point of Care testing ,Monocyte distribution width [Entitic volume] in Blood by AutomatedOrdered By: Octavio Patrick on 98-18-9589Wilqqkxd distribution width Auto (Bld) [Entitic vol] 15.15 %0.00-20.00Ohio[facility] Medical CenterMucus [Presence] in Urine by AutomatedOrdered By: Octavio Patrick on 84-33-8052Unhyh Auto Ql (U)Rare [LPF] [facility] Medical CenterNeutrophils [#/volume] in Blood by Automated countOrdered By: Octavio Patrick on 81-85-6806Pllmqheaudo (Bld) [#/Vol]5.1 10*3/uL Normal1.8-7.7FMercy HospitalComment on above:Performed By: #### GLULS #### Point of Care testing ,Nitrite Test strip Ql (U)Ordered By: Octavio Patrick on 75-17-3863Vqhwano Ql (U) NegativeNegativeOhiohealth Grant Medical CenterNo Panel InformationOrdered By: Octavio Patrick on 88-00-4636Tplfohk Glucose CommentSee commentOhiohealth Grant Medical CenterComment on above:Glu2: WILL NOTIFY DR/RNEstimated GFR (CKD-EPI)> 60.0 mL/MinOhiohealth Grant Medical CenterPharmacy Creatinine Clearance (Chem 135.07Ohio[facility] Medical CenterNucleated erythrocytes [Presence] in Blood by Automated countOrdered By: Octavio Patrick on 02-18-6405Klxekkuoh RBC Auto Ql (Bld)0.3 /100{WBC}0-0.5FMercy HospitalOpiates [Presence] in Urine by Screen methodOrdered By: Octavio Patrick on 08-01-2024 Opiates Screen Ql (U)NegativeNegThe Christ Hospital Phencyclidine Screen Ql (U)Ordered By: Octavio Patrick on 94-86-2781Imyucmjtqwuwb Ql (U)NegativeNegThe Christ HospitalPlatelet mean volume [Entitic volume] in Blood by Automated countOrdered By: Octavio Patrick on 63-15-8488Sbfuwxga mean volume (Bld) [Entitic vol]7.9 fLNormal6.6-10.1FMercy HospitalComment on above:Performed By: #### GLULS #### Point of Care testing ,Platelets [#/volume] in Blood by Automated countOrdered By: Octavio Patrick on 80-36-7131Lddszuzgy (Bld) [#/Vol]160 10*3/rWDurtom725-619ZwwdfuzizOhiohealth Grant Medical CenterComment on above:Performed By: #### GLULS #### Point of Care testing ,Potassium [Moles/volume] in Serum or PlasmaOrdered By: Octavio Patrick on 04-68-5344Stdqdqvhn [Moles/Vol]4.1 mmol/LNormal3.5-5.1FMercy HospitalComment on above:Performed By: #### GLULS #### Point of Care testing ,Protein [Mass/volume] in Serum or PlasmaOrdered By: Octavio Patrick on 08-01-2024 Protein [Mass/Vol]6.9 g/dLNormal6.4-8.9Ohio[facility] Medical CenterComment on above:Performed By: #### GLULS #### Point of Care testing ,Protein [Mass/volume] in Urine by Test stripOrdered By: Octavio Patrick on 54-16-6359Izenaxu (U) [Mass/Vol]20 mg/dLHighNegativeOhiohealth Grant Medical CenterComment on above:Order Comment: Name Collection Type:: Clean-Voided MidstreamPerformed By: #### URDS, ADDONUAPLUS #### [facility] [address] [place] [address] USARedraw Rosie 24-29-2311Mixvgo IHXQwcppi38-69Ftl [facility] Physician GroupComment on above:Result Comment: Specimen hemolyzed, redraw requested PERFORMED BY: [facility] [address] [place] [address] PATHOLOGIST MANAGER OPERATIONS RESEARCH BEKAH FREED M.D.Performed By: #### GLULS #### Point of Care testing ,Redraw Albumin Levelon 14-64-6646Rxfojmw [Mass/Vol]4.2 g/dLNormal3.5-5.7The [facility] Physician GroupComment on above:Performed By: #### GLULS #### Point of Care testing ,Redraw Potassiumon 70-87-2598Iyffem PotassiumNormal3.5-5.1The [facility] Physician GroupComment on above:Result Comment: Specimen hemolyzed, redraw requestedPerformed By: #### GLULS #### Point of Care testing ,Serum or plasma albumin/globulin mass ratioOrdered By: Octavio Patrick on 38-71-0874Cxknlmy/Globulin [Mass ratio][facility] Comment on above:Test not performedSerum or plasma anion gap determination Ordered By: Octavio Patrick on 19-70-7747Mbkfu gap [Moles/Vol][facility] Medical CenterComment on above:Test not performedSodium [Moles/volume] in Serum or PlasmaOrdered By: Octavio Patrick on 12-65-7481Vtyeyi [Moles/Vol]134 mmol/QVvj497-339JsfanvvceOhiohealth Grant Medical CenterComment on above:Performed By: #### GLULS #### Point of Care testing ,Specific gravity Test strip (U) [Rel density]Ordered By: Octavio Patrick on 76-28-6897Ytuxakeg gravity (U) [Rel density]1.470Qaqu2.001-1.030Ohio[facility] Grant Medical CenterUrea nitrogen [Mass/volume] in Serum or PlasmaOrdered By: Octavio Patrick on 76-97-3513Qwyz nitrogen [Mass/Vol]14 mg/dLNormal7-25Ohio[facility] Medical CenterComment on above:Performed By: #### GLULS #### Point of Care testing ,Urine appearanceOrdered By: Octavio Patrick on 59-44-0806Xsgnzcnagb (U)Clear NormalCleTrinity Health System Twin City Medical CenterComment on above:Order Comment: Name Collection Type:: Clean-Voided MidstreamPerformed By: #### URDS, ADDONUAPLUS #### [facility] [address] [place] [address] USAUrobilinogen Test strip (U) [Mass/Vol]Ordered By: Octavio Patrick on 26-56-0118Axbnctkjeyvd (U) [Mass/Vol]Normal mg/dLNormACMC Healthcare System GlenbeighpH of Urine by Test stripOrdered By: Octavio Patrick on 65-77-9667mO (U)6.0 [pH]Normal5.0-9.0[facility] Medical CenterComment on above:Order Comment: Name Collection Type:: Clean-Voided MidstreamPerformed By: #### URDS, ADDONUAPLUS #### [facility] [address] [place] [place] [address] UCAFqD8b HPLC (Bld) [Mass fraction]on 91-30-5452VnK6n (Bld) [Mass fraction]%[facility] HospitalPatient Letter FTon 75-91-2245Qaacmyu Letter [facility] [place] [place] June 02, 2024 TR[address] RAM[address]Z [address] [place] [id number] : 2000 Dear Mr. Tracie Ramirez, You [...] appreciate your consideration regarding any future cancellations. Sincerely,[facility] HospitalXR Knee Complete Left*on 87-79-6475CZ Knee Complete Left*TECHNIQUE: AP, lateral and oblique [...] signed by Darien Lugo on 03/05/2023 1626NormalNorthern Waterbury Hospital AUTO DIFFon 54-24-5245GXYM #0.0 103/ulNormal0.0-0.1 [facility] HospitalComment on above:Performed By: #### POCGLUC #### [facility] [address] [address] [address] Taylor GarciaBasophils/100 WBC (Bld)0.6 %Normal0.2-2.0[facility] Comment on above:Performed By: #### POCGLUC #### [facility] [address] [address] [address] Taylor Mills #0.1 103/ulNormal0.0-0.7The [facility] Medical CenterComment on above: Performed By: #### POCGLUC #### [facility] [address] [address] [address] Taylor Pulliamosinophils/100 WBC (Bld)1.7 %Normal0.9-7.0[facility] Comment on above:Performed By: #### POCGLUC #### [facility] [address] [address] [address] Taylor Pulliamrythrocyte distribution width (RBC) [Ratio]12.7 %Dtnidp42.0-15.0 [facility] HospitalComment on above:Performed By: #### POCGLUC #### [facility] [address] [place] [address] Dr. Taylor Moyeratokarlit (Bld) [Volume fraction]38.6 %Critically low42.0-54.0 The [facility] Medical CenterComment on above:Performed By: #### POCGLUC #### [facility] [address] [place] [address] Dr. Taylor GarciaHemoglobin (Bld) [Mass/Vol]14.0 g/rOTfhlmg52.0-18.0The [facility] CenterComment on above:Performed By: #### POCGLUC #### [facility] [address] [place] [address] Dr. Taylor Elder #0.08 10e3/ulCritically high0.00-0.03The [facility] Comment on above:Performed By: #### POCGLUC #### [facility] [address] [place] [address] Dr. Taylor Elder %1.6 %Critically high0.0-0.5The [facility] Medical CenterComment on above:Performed By: #### POCGLUC #### [facility] [address] [place] [address] Dr. Taylor Del Toro #1.7 103/ulNormal1.2-3.8The [facility] CenterComment on above:Performed By: #### POCGLUC #### [facility] [address] [place] [address] Dr. Taylor Solomonhocytes/100 WBC (Bld)33.4 %Zunghf26.5-60.0The [facility] CenterComment on above:Performed By: #### POCGLUC #### [facility] [address] [place] [address] Dr. Taylor DamonUAL DIFF REQNONormalThe [facility] CenterComment on above: Performed By: #### POCGLUC #### [facility] [address] [place] [address] Dr. Taylor Hurst (RBC) [Entitic mass]31.7 ktOohled89.9-34.0The [facility] CenterComment on above:Performed By: #### POCGLUC #### [facility] [address] [place] [address] Dr. Taylor Marley (RBC) [Mass/Vol]36.3 g/dLCritically high29.9-35.2The [facility] CenterComment on above:Performed By: #### POCGLUC #### [facility] [address] [place] [address] Dr. Taylor Yusuf (RBC) [Entitic vol]87.3 bGVtqpts08.0-94.0The [facility] Medical CenterComment on above:Performed By: #### POCGLUC #### [facility] [address] [place] [address] Dr. Taylor Guillen #0.4 103/ulNormal0.3-0.8The [facility] CenterComment on above:Performed By: #### POCGLUC #### [facility] [address] [place] [address] Dr. Taylor Alvarezocytes/100 WBC (Bld)8.2 %Normal1.7-12.0The [facility] Comment on above:Performed By: #### POCGLUC #### [facility] [address] [place] [address] Dr. Taylor Hansen #2.8 103/ulNormal1.4-6.5The [facility] Medical CenterComment on above:Performed By: #### POCGLUC #### [facility] [address] [place] [address] Dr. Taylor Friedutrophils/100 WBC (Bld)54.5 %Yxayoj19.0-75.0The [facility] Medical CenterComment on above:Performed By: #### POCGLUC #### [facility] [address] [place] [address] Dr. Taylor Tomaslet mean volume (Bld) [Entitic vol]10.3 fLNormal9.5-13.5The [facility] CenterComment on above:Performed By: #### POCGLUC #### [facility] [address] [address] [address] Taylor GarciaPLT113 103/ulCritically rad193-435Ngp [facility] CenterCommclaren bay region on above:Performed By: #### POCGLUC #### [facility] [address] [place] [address] Dr. Taylor GarciaRBC4.42 106/ulCritically low4.70-6.10The [facility] CenterComment on above:Performed By: #### POCGLUC #### [facility] [address] [place] [address] Dr. Taylor GarciaWBC5.2 103/ulNormal4.0-11.0The [facility] Medical CenterCommclaren bay region on above: Performed By: #### POCGLUC #### [facility] [address] [place] [address] Dr. Taylor GarciaDIRECT LDLon 44-60-2674Gqdtmtqojlp in LDL [Mass/Vol]108 mg/dL NormalThe [facility] Medical CenterCommclaren bay region on above:Performed By: #### POCGLUC #### [facility] [address] [place] [address] Dr. Taylor GarciaDLDL NORMALSEE The Jewish HospitalComment on above: Result Comment: <100 mg/dl OPTIMAL 100 - 129 mg/dl NEAR OR ABOVE OPTIMAL 130 - 159 mg/dl BORDERLINE HIGH 160 - 189 mg/dl HIGH >190 mg/dl VERY HIGHPerformed By: #### POCGLUC #### [facility] [address] [place] [address] Dr. Taylor GarciaLIPASEon 28-63-3329Wgtvgt [Catalytic activity/Vol]91.0 U/LNormal 73.0-393.0The [facility] CenterComment on above:Performed By: #### POCGLUC #### [facility] [address] [place] [address] Dr. Taylor BorregoID PROFILEon 75-73-8630YDHR-HDL RATIO NORMSEE The Jewish HospitalCommclaren bay region on above:Result Comment: 3.3 - 4.4 LOW RISK 4.4 - 7.1 AVERAGE RISK 7.1 - 11.0 MODERATE RISK >11.0 HIGH RISKPerformed By: #### POCGLUC #### [facility] [address] [address] [address] Taylor GarciaCholesterol [Mass/Vol]299 mg/dLCritically high<=200The [facility] CenterCommclaren bay region on above:Performed By: #### POCGLUC #### [facility] [address] [address] [address] Taylor GarciaCholesterol in HDL [Mass/Vol]22 mg/dLCritically uvm27-53Guk [facility] CenterComment on above:Performed By: #### POCGLUC #### [facility] [address] [address] [address] Taylor Yeeesterol.total/Cholesterol in HDL [Mass ratio]13.6 {ratio} NormalThe [facility] Medical CenterComment on above:Performed By: #### POCGLUC #### [facility] [address] [address] [address] Taylor Puentes NORMAL> or = 60 mg/dl - LOW CARDIOVASCULAR RISK <40 mg/dl - HIGH CARDIOVASCULAR RISKNoMcKitrick HospitalComment on above:Performed By: #### POCGLUC #### [facility] [address] [address] [address] Taylor GarciaTriglyceride [Mass/Vol]798 mg/dLCritically high<=150The [facility] CenterComment on above:Performed By: #### POCGLUC #### [facility] [address] [address] [address] Taylor GarciaVLDL WESM985.6 mg/dLNoMcKitrick HospitalComment on above: Performed By: #### POCGLUC #### [facility] [address] [address] [address] Taylor Villela [facility] GLUCOSEon 51-61-4109Oycllqc [Mass/Vol]252 mg/dL Critically emlh36-578Jjf [facility] CenterComment on above:Performed By: #### POCGLUC #### [facility] [address] [address] [address] Taylor GarciaGlucose [Mass/Vol]181 mg/dLCritically udth76-040Mae [facility] CenterComment on above:Performed By: #### POCGLUC #### [facility] [address] [address] [address] Taylor Hicks 14(COMP METB)on 92-90-9105Hnnbxrs [Mass/Vol]3.0 g/dL Critically low3.4-5.0The [facility] CenterComment on above:Performed By: #### POCGLUC #### [facility] [address] [address] [address] Taylor GarciaAlbumin/Globulin [Mass ratio]0.9 {ratio}NormalThe [facility] CenterComment on above:Performed By: #### POCGLUC #### [facility] [address] [place] [address] Dr. Taylor OmerP [Catalytic activity/Vol]41 U/LCritically hmt50-908Rqu [facility] CenterComment on above:Performed By: #### POCGLUC #### [facility] [address] [place] [address] Dr. Taylor Meléndez [Catalytic activity/Vol]37 U/WDsxrqr45-89Fct [facility] CenterComment on above:Performed By: #### POCGLUC #### [facility] [address] [place] [address] Dr. Taylor Araujo gap [Moles/Vol]16.0 mmol/LNormalThe [facility] Comment on above:Performed By: #### POCGLUC #### [facility] [address] [address] [address] Taylor GarciaAST [Catalytic activity/Vol]20 U/XTtdrei45-32Pgl [facility] CenterComment on above:Performed By: #### POCGLUC #### [facility] [address] [address] [address] Taylor GarciaBilirubin [Mass/Vol]0.5 mg/dLNormal0.2-1.0The [facility] Comment on above:Performed By: #### POCGLUC #### [facility] [address] [place] [address] Dr. Taylor GarciaCalcium [Mass/Vol]8.9 mg/dLNormal8.5-10.1The [facility] Comment on above:Performed By: #### POCGLUC #### [facility] [address] [place] [address] Dr. Taylor GarciaChloride [Moles/Vol]103 mmol/QYrzyqt81-088Qgi [facility] Comment on above:Performed By: #### POCGLUC #### [facility] [address] [place] [address] Dr. Taylor GarciaCO2 [Moles/Vol]22.0 mmol/JPbjyun15.0-32.0The [facility] Comment on above:Performed By: #### POCGLUC #### [facility] [address] [place] [address] Dr. Taylor GarciaCreatinine [Mass/Vol]0.65 mg/dLCritically low0.70-1.30The [facility] CenterComment on above:Performed By: #### POCGLUC #### [facility] [address] [place] [address] Dr. Taylor PulliamGFR-AF SWISS>60Normal>=60The [facility] CenterComment on above:Performed By: #### POCGLUC #### [facility] [address] [place] [address] Dr. Taylor PulliamGFR-NON AF SWISS>60Normal>=60The [facility] CenterComment on above:Performed By: #### POCGLUC #### [facility] [address] [place] [address] Dr. Taylor GarciaGlobulin (S) [Mass/Vol]3.3 g/dLNormalThe [facility] CenterComment on above:Performed By: #### POCGLUC #### [facility] [address] [place] [address] Dr. Taylor GarciaGlucose [Mass/Vol]198 mg/dLCritically mzsx99-029Ljc [facility] CenterComment on above:Performed By: #### POCGLUC #### [facility] [address] [place] [address] Dr. Taylor GarciaPotassium [Moles/Vol]4.0 mmol/LNormal3.5-5.1The [facility] Comment on above:Performed By: #### POCGLUC #### [facility] [address] [address] [address] Taylor GarciaProtein [Mass/Vol]6.3 g/dLCritically low6.4-8.2[facility] HospitalComment on above:Performed By: #### POCGLUC #### [facility] [address] [address] [address] Taylor GarciaSodium [Moles/Vol]137 mmol/NNgbuyn071-297Eun [facility] Comment on above:Performed By: #### POCGLUC #### [facility] [address] [address] [address] Taylor GarciaUrea nitrogen [Mass/Vol]9.0 mg/dLNormal7.0-18.0The [facility] CenterComment on above:Performed By: #### POCGLUC #### [facility] [address] [address] [address] Taylor Courtney nitrogen/Creatinine [Mass ratio]13.8 mg/mgNormalThe [facility] CenterComment on above:Performed By: #### POCGLUC #### [facility] [address] [place] [address] Dr. Taylor GarciaAlanine aminotransferase [Enzymatic activity/volume] in Serum or PlasmaOrdered By: Shaikh Swapnil on 84-63-8692UYZ [Catalytic activity/Vol]30 U/L 7-52[facility] CenterAlbumin [Mass/volume] in Serum or Plasma by Bromocresol green (BCG) dye binding methoOrdered By: Shaikh Swapnil on 90-51-8026Wxezquy BCG dye [Mass/Vol]3.5 g/dL3.5-5.7FMercy HospitalAlkaline phosphatase [Enzymatic activity/volume] in Serum or PlasmaOrdered By: Shaikh Swapnil on 96-86-4516HDG [Catalytic activity/Vol]38 U/M12-372KcayxmmaqOhiohealth Grant Medical CenterAspartate aminotransferase [Enzymatic activity/volume] in Serum or PlasmaOrdered By: Shaikh Swapnil on 19-96-1827DJS [Catalytic activity/Vol]17 U/I61-39WefpazifhOhiohealth Grant Medical CenterBilirubin.total [Mass/volume] in Serum or PlasmaOrdered By: Shaikh Swapnil on 82-98-0050Zzzuwjaod [Mass/Vol]0.6 mg/dL0.3-1.0[facility] Medical CenterCBC AUTO DIFFon 72-73-9778QEUO #0.0 103/ulNormal0.0-0.1The [facility] CenterComment on above: Performed By: #### POCGLUC #### [facility] [address] [address] [address] Taylor GarciaBasophils/100 WBC (Bld)0.4 %Normal0.2-2.0[facility] Comment on above:Performed By: #### POCGLUC #### [facility] [address] [address] [address] Taylor Mills #0.1 103/ulNormal0.0-0.7The [facility] CenterComment on above: Performed By: #### POCGLUC #### [facility] [address] [address] [address] Taylor Pulliamosinophils/100 WBC (Bld)1.1 %Normal0.9-7.0[facility] Comment on above:Performed By: #### POCGLUC #### [facility] [address] [address] [address] Taylor Pulliamrythrocyte distribution width (RBC) [Ratio]12.7 %Mxjeua66.0-15.0 [facility] HospitalComment on above:Performed By: #### POCGLUC #### [facility] [address] [address] [address] Taylor GarciaHematocrit (Bld) [Volume fraction]37.3 %Critically low42.0-54.0 [facility] HospitalComment on above:Performed By: #### POCGLUC #### [facility] [address] [address] [address] Taylor GarciaHemoglobin (Bld) [Mass/Vol]13.8 g/dLCritically low14.0-18.0The [facility] CenterComment on above:Performed By: #### POCGLUC #### [facility] [address] [place] [address] Dr. Taylor Elder #0.05 10e3/ulCritically high0.00-0.03The [facility] Comment on above:Performed By: #### POCGLUC #### [facility] [address] [place] [address] Dr. Taylor Elder %0.7 %Critically high0.0-0.5The [facility] CenterComment on above:Performed By: #### POCGLUC #### [facility] [address] [place] [address] Dr. Taylor Del Toro #1.6 103/ulNormal1.2-3.8The [facility] CenterComment on above:Performed By: #### POCGLUC #### [facility] [address] [place] [address] Dr. Taylor Solomonhocytes/100 WBC (Bld)22.8 %Lewerv54.5-60.0The [facility] CenterComment on above:Performed By: #### POCGLUC #### [facility] [address] [place] [address] Dr. Taylor Diaz DIFF REQNONormalThe [facility] CenterComment on above: Performed By: #### POCGLUC #### [facility] [address] [place] [address] Dr. Taylor Hurst (RBC) [Entitic mass]32.0 wlHkgeqp62.9-34.0The [facility] CenterComment on above:Performed By: #### POCGLUC #### [facility] [address] [place] [address] Dr. Taylor Marley (RBC) [Mass/Vol]37.0 g/dLCritically high29.9-35.2The [facility] CenterComment on above:Performed By: #### POCGLUC #### [facility] [address] [place] [address] Dr. Yilan ChangMCV (RBC) [Entitic vol]86.5 qVXcwiee09.0-94.0The [facility] CenterComment on above:Performed By: #### POCGLUC #### [facility] [address] [place] [address] Dr. Taylor Guillen #0.6 103/ulNormal0.3-0.8The [facility] CenterComment on above:Performed By: #### POCGLUC #### [facility] [address] [place] [address] Dr. Taylor Alvarezocytes/100 WBC (Bld)8.2 %Normal1.7-12.0The [facility] Comment on above:Performed By: #### POCGLUC #### [facility] [address] [place] [address] Dr. Taylor Hansen #4.8 103/ulNormal1.4-6.5The [facility] CenterComment on above:Performed By: #### POCGLUC #### [facility] [address] [place] [address] Dr. Taylor Friedutrophils/100 WBC (Bld)66.8 %Esqbjp52.0-75.0The [facility] CenterComment on above:Performed By: #### POCGLUC #### [facility] [address] [place] [address] Dr. Taylor Venegas mean volume (Bld) [Entitic vol]10.0 fLNormal9.5-13.5The [facility] CenterComment on above:Performed By: #### POCGLUC #### [facility] [address] [place] [address] Dr. Taylor GarciaPLT109 103/ulCritically kma790-528Cfh [facility] CenterComment on above:Performed By: #### POCGLUC #### [facility] [address] [place] [address] Dr. Taylor GarciaRBC4.31 106/ulCritically low4.70-6.10The [facility] CenterComment on above:Performed By: #### POCGLUC #### [facility] [address] [place] [address] Dr. Taylor GarciaWBC7.2 103/ulNormal4.0-11.0[facility] Memorial HospitalComment on above: Performed By: #### POCGLUC #### [facility] [address] [address] [address] Taylor GarciaCalcium [Mass/volume] in Serum or PlasmaOrdered By: Shaikh Swapnil on 27-65-6524Nrucuda [Mass/Vol]8.7 mg/dL8.6-10.3FMercy HospitalCarbon dioxide, total [Moles/volume] in Serum or PlasmaOrdered By: Shaikh Swapnil on 86-25-8035MA1 [Moles/Vol]19.8 mmol/L21.0-31.0[facility] Medical CenterChloride [Moles/volume] in Serum or PlasmaOrdered By: Shaikh Swapnil on 82-72-1785Kszgtchv [Moles/Vol]105 mmol/S97-419BvlajrnpkOhiohealth Grant Medical CenterCreatinine [Mass/volume] in Serum or PlasmaOrdered By: Shaikh Swapnil on 63-67-3830Uhmehbkbly [Mass/Vol]0.71 mg/dL0.70-1.30[facility] CenterDIRECT LDLon 83-10-8404Lssvkftjzwf in LDL [Mass/Vol]73 mg/dLNoCincinnati Children's Hospital Medical CenterComment on above:Performed By: #### POCGLUC #### [facility] [address] [address] [address] Taylor GarciaDLDL NORMALSEE The Jewish HospitalComment on above: Result Comment: <100 mg/dl OPTIMAL 100 - 129 mg/dl NEAR OR ABOVE OPTIMAL 130 - 159 mg/dl BORDERLINE HIGH 160 - 189 mg/dl HIGH >190 mg/dl VERY HIGHPerformed By: #### POCGLUC #### [facility] [address] [place] [address] Dr. Taylor GarciaGLYCOHEMOGLOBIN A1Con 43-45-4770POG RECOMMENDATIONSEE BELOWPremier Health Miami Valley HospitalCommclaren bay region on above:Result Comment: ADA RECOMMENDED LIMIT 4.0 - 6.0 ADA THERAPEUTIC TARGET < 7.0 ACTION SUGGESTED > 7.0Performed By: #### POCGLUC #### [facility] [address] [place] [address] Dr. Taylor GarciaGlucose [Mass/Vol]280 mg/dLSelect Medical [facility] on above:Performed By: #### POCGLUC #### [facility] [address] [place] [address] Dr. Taylor GarciaHbA1c (Bld) [Mass fraction]11.4 %Critically high4.5-6.2[facility] on above:Performed By: #### POCGLUC #### [facility] [address] [place] [address] Dr. Taylor GarciaGlobulin Calc (S) [Mass/Vol]Ordered By: Shaikh Swapnil on 71-12-0488Pqggoukr (S) [Mass/Vol]2.3 g/dLOhiohealth Grant Medical Center Glucose [Mass/volume] in Serum or PlasmaOrdered By: Shaikh Swapnil on 01-24-2023 Glucose [Mass/Vol]165 mg/jU97-548XzhlysxieOhiohealth Grant Medical CenterComment on above:ADA recommended reference rangeRandom Glucose Reference Range is dependent on time and content of last meal. Glucose of more than 200 mg/dL in a nonstressed, ambulatory subject supports the diagnosisof Diabetes Mellitus.LAB TESTINGon 23-58-3889HEVL HEADERSEE SCANNED REPORT IN [facility] on above:Performed By: #### POCGLUC #### [facility] [address] [place] [address] Dr. Taylor Ordoñez FROM REF LAB01/24/2023[facility] on above:Performed By: #### POCGLUC #### [facility] [address] [place] [address] Dr. Taylor Jarquin TO REF LAB01/24/2023[facility] on above:Performed By: #### POCGLUC #### [facility] [address] [place] [address] Dr. Taylor Shook 27-89-9353Aavahm [Catalytic activity/Vol]97.0 U/LNormal 73.0-393.0The [facility] CenterComment on above:Performed By: #### POCGLUC #### [facility] [address] [place] [address] Dr. Taylor BorregoID PROFILEon 73-69-3145NDQD-HDL RATIO NORMSSt. Mary's Medical Center, Ironton CampusComment on above:Result Comment: 3.3 - 4.4 LOW RISK 4.4 - 7.1 AVERAGE RISK 7.1 - 11.0 MODERATE RISK >11.0 HIGH RISKPerformed By: #### POCGLUC #### [facility] [address] [place] [address] Dr. Taylor GarciaCholesterol [Mass/Vol]296 mg/dLCritically high<=200The [facility] CenterComment on above:Performed By: #### POCGLUC #### [facility] [address] [place] [address] Dr. Taylor GarciaCholesterol in HDL [Mass/Vol]26 mg/dLCritically sxv94-14Nol [facility] CenterComment on above:Performed By: #### POCGLUC #### [facility] [address] [place] [address] Dr. Taylor Yeeesterlorene.total/Cholesterol in HDL [Mass ratio]11.4 {ratio} NormalThe [facility] CenterCommclaren bay region on above:Performed By: #### POCGLUC #### [facility] [address] [place] [address] Dr. Taylor GarciaHDShelly NORMAL> or = 60 mg/dl - LOW CARDIOVASCULAR RISK <40 mg/dl - HIGH CARDIOVASCULAR RISKRegency Hospital Cleveland WestComment on above:Performed By: #### POCGLUC #### [facility] [address] [place] [address] Dr. Taylor GarciaLDL CALC NORMALSEE The Jewish HospitalComment on above:Result Comment: <100 mg/dl OPTIMAL 100 - 129 mg/dl NEAR OR ABOVE OPTIMAL 130 - 159 mg/dl BORDERLINE HIGH 160 - 189 mg/dl HIGH >190 mg/dl VERY HIGH Performed By: #### POCGLUC #### [facility] [address] [address] [address] Taylor GarciaTriglyceride [Mass/Vol]935 mg/dLCritically high<=150[facility] on above:Performed By: #### POCGLUC #### [facility] [address] [address] [address] Taylor GarciaVLDL PYBA492.0 mg/dLNormalThClermont County HospitalCommclaren bay region on above: Performed By: #### POCGLUC #### [facility] [address] [address] [address] Taylor GarciaLipase [Enzymatic activity/volume] in Serum or PlasmaOrdered By: Shaikh Swapnil on 23-65-6028Mfaxog [Catalytic activity/Vol]34.0 U/L11.0-82.0 [facility] CenterNo Panel InformationOrdered By: Shaikh Swapnil on 69-21-0461Gmhblcfqv GFR (CKD-EPI)> 60.0 mL/MinOhiohealth Grant Medical CenterPharmacy Creatinine Clearance (ChemN/[facility] POINT OF CARE GLUCOSEon 38-37-6998Itosgbz [Mass/Vol]171 mg/dLCritically high 74-106[facility] on above:Performed By: #### POCGLUC #### [facility] [address] [address] [address] Taylor GarciaGlucose [Mass/Vol]168 mg/dLCritically cxke52-890Nqc [facility] CenterCommclaren bay region on above:Performed By: #### POCGLUC #### [facility] [address] [address] [address] Taylor GarciaGlucose [Mass/Vol]249 mg/dLCritically dydr38-529QrdMercy Memorial HospitalCommclaren bay region on above:Performed By: #### POCGLUC #### [facility] [address] [address] [address] Taylor GarciaGlucose [Mass/Vol]126 mg/dLCritically jcvh80-664WtlMercy Memorial HospitalComment on above:Performed By: #### POCGLUC #### [facility] [address] [address] [address] Taylor GarciaGlucose [Mass/Vol]166 mg/dLCritically pygw28-861StsMercy Memorial HospitalComment on above:Performed By: #### POCGLUC #### [facility] [address] [address] [address] Taylor GarciaGlucose [Mass/Vol]157 mg/dLCritically wnag14-101LkuMercy Memorial HospitalComment on above:Performed By: #### POCGLUC #### [facility] [address] [address] [address] Taylor GarciaGlucose [Mass/Vol]156 mg/dLCritically khxp96-123PxbMercy Memorial HospitalComment on above:Performed By: #### POCGLUC #### [facility] [address] [address] [address] Taylor GarciaGlucose [Mass/Vol]97 mg/kYWpjalg33-466ImjMercy Memorial Hospital Comment on above:Performed By: #### POCGLUC #### [facility] [address] [address] [address] Taylor GarciaGlucose [Mass/Vol]84 mg/bQIffsir99-328EzbMercy Memorial Hospital Comment on above:Performed By: #### POCGLUC #### [facility] [address] [address] [address] Taylor GarciaGlucose [Mass/Vol]74 mg/uUGbisdl86-732VsmMercy Memorial Hospital Comment on above:Performed By: #### POCGLUC #### [facility] [address] [address] [address] Taylor GarciaGlucose [Mass/Vol]79 mg/tTMijmot73-693CbhMercy Memorial Hospital Comment on above:Performed By: #### POCGLUC #### [facility] [address] [address] [address] Taylor GarciaGlucose [Mass/Vol]117 mg/dLCritically qrgw29-775HgnMercy Memorial HospitalComment on above:Performed By: #### POCGLUC #### [facility] [address] [address] [address] Yilan ChangGlucose [Mass/Vol]134 mg/dLCritically kibk86-021Wkf [facility] CenterComment on above:Performed By: #### POCGLUC #### [facility] [address] [address] [address] Taylor GarciaGlucose [Mass/Vol]163 mg/dLCritically fels55-364Hlr [facility] CenterComment on above:Performed By: #### POCGLUC #### [facility] [address] [place] [address] Dr. Taylor GarciaPROF CHEM 8 (BAS METB)on 93-93-0847Ltbyt gap [Moles/Vol]14.4 mmol/LNormalThe [facility] CenterComment on above:Result Comment: [facility] at [facility] hospitalPerformed By: #### POCGLUC #### [facility] [address] [place] [address] Dr. Taylor GarciaCalcium [Mass/Vol]8.9 mg/dLNormal8.5-10.1The [facility] Comment on above:Result Comment: test preformed at [facility] hospitalPerformed By: #### POCGLUC #### [facility] [address] [place] [address] Dr. Taylor GarciaChloride [Moles/Vol]105 mmol/XEqjqop58-793Zfc [facility] Comment on above:Result Comment: test preformed at [facility] hospitalPerformed By: #### POCGLUC #### [facility] [address] [place] [address] Dr. Taylor GarciaCO2 [Moles/Vol]20.2 mmol/LCritically low21.0-32.0The [facility] CenterCommclaren bay region on above:Result Comment: test preformed at [facility] hospitalPerformed By: #### POCGLUC #### [facility] [address] [place] [address] Dr. Taylor GarciaCreatinine [Mass/Vol]0.69 mg/dLCritically low0.70-1.30The [facility] CenterComment on above:Result Comment: test preformed at [facility] hospitalPerformed By: #### POCGLUC #### [facility] [address] [address] [address] Vazquez ChangEGFR-AF SWISS>60Normal>=60The [facility] CenterComment on above:Performed By: #### POCGLUC #### [facility] [address] [address] [address] Vazquez ChangEGFR-NON AF SWISS>60Normal>=60The [facility] CenterComment on above:Performed By: #### POCGLUC #### [facility] [address] [address] [address] Taylor GarciaGlucose [Mass/Vol]103 mg/tQUlbuds15-826Vmn [facility] Comment on above:Result Comment: test preformed at [facility] hospitalPerformed By: #### POCGLUC #### [facility] [address] [address] [address] Taylor GarciaPotassium [Moles/Vol]3.6 mmol/LNormal3.5-5.1The [facility] Comment on above:Result Comment: test preformed at [facility] hospitalPerformed By: #### POCGLUC #### [facility] [address] [address] [address] Taylor aGrciaSodium [Moles/Vol]136 mmol/ZWswsjv211-421Adz [facility] Comment on above:Result Comment: test preformed at [facility] hospitalPerformed By: #### POCGLUC #### [facility] [address] [address] [address] Taylor GarciaUrea nitrogen [Mass/Vol]6.0 mg/dLCritically low7.0-18.0[facility] HospitalComment on above:Result Comment: test preformed at [facility] hospitalPerformed By: #### POCGLUC #### [facility] [address] [address] [address] Taylor GarciaUrea nitrogen/Creatinine [Mass ratio]8.7 mg/mgNormalThe [facility] CenterComment on above:Performed By: #### POCGLUC #### [facility] [address] [address] [address] Yilan ChangPotassium [Moles/volume] in Serum or PlasmaOrdered By: Shaikh Swapnil on 90-23-3668Eaojmrhan [Moles/Vol]3.6 mmol/L3.5-5.1FMercy HospitalProtein [Mass/volume] in Serum or PlasmaOrdered By: Shaikh Swapnil on 71-97-4855Moocgtk [Mass/Vol]5.8 g/dL6.4-8.9[facility] Serum or plasma albumin/globulin mass ratioOrdered By: Shaikh Swapnil on 42-68-5887Ksoignf/Globulin [Mass ratio]1.5 {ratio}[facility] Medical Centererum or plasma anion gap determinationOrdered By: Shaikh Swapnil on 22-69-5262Weffv gap [Moles/Vol]13.8 mmol/L6.0-15.0[facility] Medical Centerodium [Moles/volume] in Serum or PlasmaOrdered By: Shaikh Swapnil on 86-03-8909Jbhelv [Moles/Vol]135 mmol/G905-130TzenjwpwcOhiohealth Grant Medical Center Urea nitrogen [Mass/volume] in Serum or PlasmaOrdered By: Shaikh Swapnil on 26-60-7598Lniv nitrogen [Mass/Vol]6 mg/dL7-25[facility] Alanine aminotransferase [Enzymatic activity/volume] in Serum or PlasmaOrdered By: Shaikh Swapnil on 90-25-3935DCV [Catalytic activity/Vol]45 U/L7-52[facility] Medical CenterAlbumin [Mass/volume] in Serum or Plasma by Bromocresol green (BCG) dye binding methoOrdered By: Shaikh Swapnil on 16-08-3858Iabkurl BCG dye [Mass/Vol]4.0 g/dL3.5-5.7FMercy HospitalComment on above: Delta: 5.0 on 01/22/23-8Alkaline phosphatase [Enzymatic activity/volume] in Serum or PlasmaOrdered By: Shaikh Swapnil on 40-07-2951ELG [Catalytic activity/Vol]40 U/Q84-780XltrqtjpuOhiohealth Grant Medical CenterAspartate aminotransferase [Enzymatic activity/volume] in Serum or PlasmaOrdered By: Shaikh Swapnil on 69-49-2803XJT [Catalytic activity/Vol]See tnclqoe18-94FsrypludsOhiohealth Grant Medical CenterComment on above:Specimen hemolyzed, redraw requested Bilirubin.total [Mass/volume] in Serum or PlasmaOrdered By: Shaikh Swapnil on 31-76-4072Qjqttdcwc [Mass/Vol]1.1 mg/dL0.3-1.0[facility] CBC AUTO DIFFon 42-71-4610DARX #0.0 103/ulNormal0.0-0.1[facility] Comment on above:Performed By: #### CBC #### [facility] [address] [place] [address] Dr. Taylor GarciaBasophils/100 WBC (Bld)0.3 %Normal0.2-2.0[facility] Comment on above:Performed By: #### CBC #### [facility] [address] [address] [address] Taylor Mills #0.1 103/ulNormal0.0-0.7The [facility] CenterComment on above: Performed By: #### CBC #### [facility] [address] [place] [address] Dr. Taylor Pulliamosinophils/100 WBC (Bld)0.6 %Critically low0.9-7.0[facility] Memorial HospitalComment on above:Performed By: #### CBC #### [facility] [address] [place] [address] Dr. Taylor Pulliamrythrocyte distribution width (RBC) [Ratio]12.8 %Txsxns69.0-15.0 [facility] HospitalComment on above:Performed By: #### CBC #### [facility] [address] [place] [address] Dr. Taylor GarciaHematocrit (Bld) [Volume fraction]38.1 %Critically low42.0-54.0 [facility] HospitalComment on above:Performed By: #### CBC #### [facility] [address] [place] [address] Dr. Taylor GarciaHemoglobin (Bld) [Mass/Vol]13.3 g/dLCritically low14.0-18.0The [facility] CenterComment on above:Performed By: #### CBC #### [facility] [address] [address] [address] Taylor Elder #0.07 10e3/ulCritically high0.00-0.03The [facility] Comment on above:Performed By: #### CBC #### [facility] [address] [address] [address] Taylor Elder %0.7 %Critically high0.0-0.5The [facility] CenterComment on above:Performed By: #### CBC #### [facility] [address] [place] [address] Dr. Taylor Del Toro #1.8 103/ulNormal1.2-3.8The [facility] CenterComment on above:Performed By: #### CBC #### [facility] [address] [place] [address] Dr. Taylor Solomonhocytes/100 WBC (Bld)16.6 %Critically low20.5-60.0The [facility] CenterComment on above:Performed By: #### CBC #### [facility] [address] [place] [address] Dr. Taylor DamonUAL DIFF REQNONormalThe [facility] CenterComment on above: Performed By: #### CBC #### [facility] [address] [place] [address] Dr. Taylor Marley (RBC) [Entitic mass]30.2 zkQomajk68.9-34.0The [facility] CenterComment on above:Performed By: #### CBC #### [facility] [address] [place] [address] Dr. Taylor Marley (RBC) [Mass/Vol]34.9 g/kPNpsqak45.9-35.2The [facility] CenterComment on above:Performed By: #### CBC #### [facility] [address] [address] [address] Taylor MarleyV (RBC) [Entitic vol]86.6 mZJcizfs87.0-94.0The [facility] CenterComment on above:Performed By: #### CBC #### [facility] [address] [place] [address] Dr. Taylor Guillen #0.7 103/ulNormal0.3-0.8The [facility] CenterComment on above:Performed By: #### CBC #### [facility] [address] [place] [address] Dr. Taylor Alvarezocytes/100 WBC (Bld)6.9 %Normal1.7-12.0[facility] Comment on above:Performed By: #### CBC #### [facility] [address] [place] [address] Dr. Taylor Hansen #7.9 103/ulCritically high1.4-6.5The [facility] Comment on above:Performed By: #### CBC #### [facility] [address] [place] [address] Dr. Taylor Friedutrophils/100 WBC (Bld)74.9 %Uiwetp32.0-75.0The [facility] CenterComment on above:Performed By: #### CBC #### [facility] [address] [place] [address] Dr. Taylor Tomaslet mean volume (Bld) [Entitic vol]10.8 fLNormal9.5-13.5The [facility] CenterComment on above:Performed By: #### CBC #### [facility] [address] [place] [address] Dr. Taylor GarciaPLT123 103/ulCritically rja355-756Lgc [facility] CenterComment on above:Performed By: #### CBC #### [facility] [address] [place] [address] Dr. Taylor GarciaRBC4.40 106/ulCritically low4.70-6.10The [facility] CenterComment on above:Performed By: #### CBC #### [facility] [address] [address] [address] Taylor GarciaWBC10.6 103/ulNormal4.0-11.0The [facility] CenterComment on above:Performed By: #### CBC #### [facility] [address] [address] [address] Taylor GarciaCalcium [Mass/volume] in Serum or PlasmaOrdered By: Shaikh Swapnil on 87-96-3474Tazusdi [Mass/Vol]8.9 mg/dL8.6-10.3FMercy HospitalCarbon dioxide, total [Moles/volume] in Serum or PlasmaOrdered By: Shaikh Swapnil on 71-49-6019LZ1 [Moles/Vol]21.8 mmol/L21.0-31.0[facility] CenterChloride [Moles/volume] in Serum or PlasmaOrdered By: Shaikh Swapnil on 94-15-3088Waamgtok [Moles/Vol]103 mmol/VIiavgm04-241NpadxyzieOhiohealth Grant Medical CenterComment on above:Performed By: #### POCGLUC #### [facility] [address] [address] [address] Taylor GarciaCreatinine [Mass/volume] in Serum or PlasmaOrdered By: Shaikh Swapnil on 09-56-4219Kcsfcpxvls [Mass/Vol]0.63 mg/dL0.70-1.30[facility] CenterDIRECT LDLon 91-61-0947Kwtydukerqz in LDL [Mass/Vol]67 mg/dLNormal [facility] HospitalComment on above:Performed By: #### POCGLUC #### [facility] [address] [address] [address] Taylor GarciaDLDL NORMALSEE BELOWNoMcKitrick HospitalComment on above: Result Comment: <100 mg/dl OPTIMAL 100 - 129 mg/dl NEAR OR ABOVE OPTIMAL 130 - 159 mg/dl BORDERLINE HIGH 160 - 189 mg/dl HIGH >190 mg/dl VERY HIGHPerformed By: #### POCGLUC #### [facility] [address] [address] [address] Taylor GarciaGLYCOHEMOGLOBIN A1Con 48-44-1933XIY RECOMMENDATIONSEE BELOWNormal [facility] HospitalCommclaren bay region on above:Result Comment: ADA RECOMMENDED LIMIT 4.0 - 6.0 ADA THERAPEUTIC TARGET < 7.0 ACTION SUGGESTED > 7.0Performed By: #### POCGLUC #### [facility] [address] [address] [address] Taylor GarciaGlucose [Mass/Vol]266 mg/dLNormalThe [facility] CenterComment on above:Performed By: #### POCGLUC #### [facility] [address] [address] [address] Taylor GarciaHbA1c (Bld) [Mass fraction]10.9 %Critically high4.5-6.2The [facility] CenterCommclaren bay region on above:Performed By: #### POCGLUC #### [facility] [address] [address] [address] Taylor GarciaGlobulin Calc (S) [Mass/Vol]Ordered By: Shaikh Swapnil on 54-25-6341Gsxawzqf (S) [Mass/Vol]2.5 g/dLOhiohealth Grant Medical Center Glucose [Mass/volume] in Serum or PlasmaOrdered By: Shaikh Swapnil on 01-23-2023 Glucose [Mass/Vol]193 mg/cB20-213BchsszjhfOhiohealth Grant Medical CenterComment on above:Delta: 65 on 01/23/23-1635ADA recommended reference rangeRandom Glucose Reference Range is dependent on time and content of last meal. Glucose of more than 200 mg/dL in a nonstressed, ambulatory subject supports the diagnosis of Diabetes Mellitus.LIPID PROFILEon 84-09-2063RXOG-HDL RATIO NORMSEE BELOWNormal [facility] HospitalCommclaren bay region on above:Result Comment: 3.3 - 4.4 LOW RISK 4.4 - 7.1 AVERAGE RISK 7.1 - 11.0 MODERATE RISK >11.0 HIGH RISKPerformed By: #### POCGLUC #### [facility] [address] [address] [address] Taylor GarciaCholesterol [Mass/Vol]320 mg/dLCritically high<=200The [facility]andana HospitalComment on above:Performed By: #### POCGLUC #### [facility] [address] [address] [address] Taylor GarciaCholesterol in HDL [Mass/Vol]27 mg/dLCritically asm07-03Xtd [facility] CenterComment on above:Performed By: #### POCGLUC #### [facility] [address] [address] [address] Taylor Yeeesterol.total/Cholesterol in HDL [Mass ratio]11.9 {ratio} NormalMercy Memorial HospitalComment on above:Performed By: #### POCGLUC #### [facility] [address] [address] [address] Taylor Puentes NORMAL> or = 60 mg/dl - LOW CARDIOVASCULAR RISK <40 mg/dl - HIGH CARDIOVASCULAR RISKNoMcKitrick HospitalComment on above:Performed By: #### POCGLUC #### [facility] [address] [address] [address] Taylor GarciaTriglyceride [Mass/Vol]1599 mg/dLCritically high<=150The [facility] CenterComment on above:Performed By: #### POCGLUC #### [facility] [address] [address] [address] Taylor GarciaVLDL NYMR170.8 mg/dLNoMcKitrick HospitalComment on above: Performed By: #### POCGLUC #### [facility] [address] [address] [address] Taylor Johnson Panel InformationOrdered By: Shaikh Swapnil on 01-23-2023 Estimated GFR (CKD-EPI)> 60.0 mL/MinOhiohealth Grant Medical CenterPharmacy Creatinine Clearance (ChemN/Berger HospitalPOINT OF CARE GLUCOSEon 80-36-3324Qnmimwm [Mass/Vol]224 mg/dLCritically ohiz35-137Ihy [facility] CenterComment on above:Performed By: #### POCGLUC #### [facility] [address] [address] [address] Taylor GarciaGlucose [Mass/Vol]142 mg/dLCritically iput24-479Hhf [facility]ana HospitalComment on above:Performed By: #### POCGLUC #### [facility] [address] [address] [address] Taylor GarciaGlucose [Mass/Vol]102 mg/yDMnzuzy98-137HlcMercy Memorial Hospital Comment on above:Performed By: #### POCGLUC #### [facility] [address] [address] [address] Taylor GarciaGlucose [Mass/Vol]100 mg/tLYadxfh92-022TvzMercy Memorial Hospital Comment on above:Performed By: #### POCGLUC #### [facility] [address] [address] [address] Taylor GarciaGlucose [Mass/Vol]84 mg/qDSbwvxn79-505MfdMercy Memorial Hospital Comment on above:Performed By: #### POCGLUC #### [facility] [address] [address] [address] Taylor GarciaGlucose [Mass/Vol]72 mg/dLCritically pgk04-137RiaMercy Memorial HospitalComment on above:Performed By: #### POCGLUC #### [facility] [address] [address] [address] Taylor GarciaGlucose [Mass/Vol]69 mg/dLCritically syn15-451SvaMercy Memorial HospitalCommclaren bay region on above:Performed By: #### POCGLUC #### [facility] [address] [address] [address] Taylor GarciaGlucose [Mass/Vol]78 mg/nICzivfv31-957VvfMercy Memorial Hospital Comment on above:Performed By: #### POCGLUC #### [facility] [address] [address] [address] Taylor GarciaGlucose [Mass/Vol]114 mg/dLCritically kxsw46-086RkjMercy Memorial HospitalCommclaren bay region on above:Performed By: #### POCGLUC #### [facility] [address] [address] [address] Taylor GarciaGlucose [Mass/Vol]185 mg/dLCritically rzay98-774RonMercy Memorial HospitalComment on above:Performed By: #### POCGLUC #### [facility] [address] [address] [address] Taylor GarciaGlucose [Mass/Vol]230 mg/dLCritically ihte31-585Mdn [facility] CenterComment on above:Performed By: #### POCGLUC #### [facility] [address] [address] [address] Taylor GarciaGlucose [Mass/Vol]253 mg/dLCritically mcea32-694Qyf [facility] CenterComment on above:Performed By: #### POCGLUC #### [facility] [address] [address] [address] Taylor GarciaPROF CHEM 8 (BAS METB)on 23-19-8231Uxhmq gap [Moles/Vol]13.1 mmol/LNormalThe [facility] Hospitalment on above:Performed By: #### POCGLUC #### [facility] [address] [address] [address] Taylor GarciaCalcium [Mass/Vol]8.9 mg/dLNormal8.5-10.1The [facility] Comment on above:Performed By: #### POCGLUC #### [facility] [address] [address] [address] Taylor GarciaChloride [Moles/Vol]103 mmol/QRrtbmo37-895Sos [facility] Comment on above:Performed By: #### POCGLUC #### [facility] [address] [address] [address] Taylor GarciaCO2 [Moles/Vol]21.8 mmol/VJtgoqv15.0-32.0[facility] Comment on above:Performed By: #### POCGLUC #### [facility] [address] [address] [address] Taylor GarciaCreatinine [Mass/Vol]0.63 mg/dLCritically low0.70-1.30The [facility]ult[facility] Hospitalment on above:Performed By: #### POCGLUC #### [facility] [address] [address] [address] Vazquez ChangEGFR-AF SWISS>60Normal>=60The [facility] HospitalComment on above:Performed By: #### POCGLUC #### [facility] [address] [address] [address] Taylor PulliamGFR-NON AF SWISS>60Normal>=60The [facility] CenterComment on above:Performed By: #### POCGLUC #### [facility] [address] [address] [address] Taylor GarciaGlucose [Mass/Vol]193 mg/dLCritically yfuh01-582Hnf [facility] CenterComment on above:Performed By: #### POCGLUC #### [facility] [address] [address] [address] Taylor GarciaPotassium [Moles/Vol]3.9 mmol/LNormal3.5-5.1The [facility] Comment on above:Performed By: #### POCGLUC #### [facility] [address] [address] [address] Taylor GarciaSodium [Moles/Vol]134 mmol/LCritically bqt526-037Tlr [facility] CenterComment on above:Performed By: #### POCGLUC #### [facility] [address] [address] [address] Taylor GarciaUrea nitrogen [Mass/Vol]6.0 mg/dLCritically low7.0-18.0The [facility] CenterComment on above:Performed By: #### POCGLUC #### [facility] [address] [address] [address] Taylor GarciaUrea nitrogen/Creatinine [Mass ratio]9.5 mg/mgNormalThe [facility] CenterComment on above:Performed By: #### POCGLUC #### [facility] [address] [address] [address] Taylor Lobatoon gap [Moles/Vol]12.8 mmol/LNormalThe [facility] Comment on above:Performed By: #### POCGLUC #### [facility] [address] [address] [address] Taylor GarciaCalcium [Mass/Vol]9.2 mg/dLNormal8.5-10.1[facility] Comment on above:Performed By: #### POCGLUC #### [facility] [address] [address] [address] Taylor GarciaCO2 [Moles/Vol]22.6 mmol/BHnkuig48.0-32.0The [facility] Comment on above:Performed By: #### POCGLUC #### [facility] [address] [place] [address] Dr. Taylor GarciaCreatinine [Mass/Vol]0.72 mg/dLNormal0.70-1.30The [facility] CenterComment on above:Performed By: #### POCGLUC #### [facility] [address] [place] [address] Dr. Taylor GarciaGlucose [Mass/Vol]65 mg/dLCritically pet25-845Ffa [facility] CenterComment on above:Performed By: #### POCGLUC #### [facility] [address] [place] [address] Dr. Taylor GarciaPotassium [Moles/Vol]3.4 mmol/LCritically low3.5-5.1The [facility] CenterComment on above:Performed By: #### POCGLUC #### [facility] [address] [place] [address] Dr. Taylor GarciaSodium [Moles/Vol]135 mmol/LCritically gki661-669Vbs [facility] CenterComment on above:Performed By: #### POCGLUC #### [facility] [address] [place] [address] Dr. Taylor GarciaUrea nitrogen [Mass/Vol]7.0 mg/dLNormal7.0-18.0The [facility] CenterComment on above:Performed By: #### POCGLUC #### [facility] [address] [place] [address] Dr. Taylor Courtney nitrogen/Creatinine [Mass ratio]9.7 mg/mgNormalThe [facility] CenterComment on above:Performed By: #### POCGLUC #### [facility] [address] [place] [address] Dr. Taylor GarciaPotassium [Moles/volume] in Serum or PlasmaOrdered By: Shaikh Swapnil on 44-53-7086Thsinxtui [Moles/Vol]3.9 mmol/L3.5-5.1FMercy HospitalComment on above:Hemolysis is present at a level that could interfere with the result.Protein [Mass/volume] in Serum or PlasmaOrdered By: Shaikh Swapnil on 16-11-0805Ivdajus [Mass/Vol]6.5 g/dL6.4-8.9[facility] Medical Centererum or plasma albumin/globulin mass ratioOrdered By: Shaikh Swapnil on 78-61-6240Lzofpso/Globulin [Mass ratio]1.6 {ratio}[facility] Medical Centererum or plasma anion gap determinationOrdered By: Shaikh Swapnil on 36-36-1096Fmwhx gap [Moles/Vol]13.1 mmol/L6.0-15.0[facility] Medical Centerodium [Moles/volume] in Serum or PlasmaOrdered By: Shaikh Swapnil on 88-49-9759Tvosei [Moles/Vol]134 mmol/U540-811FjruhenexOhiohealth Grant Medical Center Urea nitrogen [Mass/volume] in Serum or PlasmaOrdered By: Shaikh Swapnil on 18-58-8501Ntlf nitrogen [Mass/Vol]6 mg/dL7-25[facility] Alanine aminotransferase [Enzymatic activity/volume] in Serum or PlasmaOrdered By: NON STAFF on 85-62-8079TLJ [Catalytic activity/Vol]75 U/L7-52[facility] Medical CenterAlbumin [Mass/volume] in Serum or Plasma by Bromocresol green (BCG) dye binding methoOrdered By: NON STAFF on 92-94-1290Dzujppm BCG dye [Mass/Vol]5.0 g/dL3.5-5.7FMercy HospitalAlkaline phosphatase [Enzymatic activity/volume] in Serum or PlasmaOrdered By: NON STAFF on 85-04-1549BJU [Catalytic activity/Vol]60 U/V75-375YligeasvuOhiohealth Grant Medical CenterAspartate aminotransferase [Enzymatic activity/volume] in Serum or Plasma Ordered By: NON STAFF on 61-25-3994SKM [Catalytic activity/Vol]22 U/L13-39 [facility] CenterBilirubin.total [Mass/volume] in Serum or PlasmaOrdered By: NON STAFF on 95-17-6785Dccekfnxw [Mass/Vol]1.1 mg/dL0.3-1.0 [facility] CenterCBC AUTO DIFFon 94-08-8757VSFB #0.1 103/ul Normal0.0-0.1The [facility] CenterComment on above:Performed By: #### POCGLUC #### [facility] [address] [address] [address] Taylor GarciaBasophils/100 WBC (Bld)0.4 %Normal0.2-2.0The [facility] Comment on above:Performed By: #### POCGLUC #### [facility] [address] [address] [address] Vazquez ChangEO #0.0 103/ulNormal0.0-0.7The [facility] CenterComment on above: Performed By: #### POCGLUC #### [facility] [address] [address] [address] Taylor Pulliamosinophils/100 WBC (Bld)0.2 %Critically low0.9-7.0The [facility] CenterComment on above:Performed By: #### POCGLUC #### [facility] [address] [address] [address] Taylor Pulliamrythrocyte distribution width (RBC) [Ratio]12.4 %Qxixje94.0-15.0 The [facility] CenterComment on above:Performed By: #### POCGLUC #### [facility] [address] [address] [address] Taylor GarciaHematocrit (Bld) [Volume fraction]44.1 %Qlbkcl92.0-54.0The [facility] CenterComment on above:Performed By: #### POCGLUC #### [facility] [address] [address] [address] Taylor GarciaHemoglobin (Bld) [Mass/Vol]16.9 g/yJNohfgu69.0-18.0The [facility] HospitalComment on above:Performed By: #### POCGLUC #### [facility] [address] [address] [address] Taylor Elder #0.11 10e3/ulCritically high0.00-0.03The [facility] on above:Performed By: #### POCGLUC #### [facility] [address] [address] [address] Taylor Elder %0.8 %Critically high0.0-0.5The [facility] CenterComment on above:Performed By: #### POCGLUC #### [facility] [address] [address] [address] Taylor Del Toro #1.3 103/ulNormal1.2-3.8The [facility] CenterComment on above:Performed By: #### POCGLUC #### [facility] [address] [address] [address] Taylor Solomonhocytes/100 WBC (Bld)9.7 %Critically low20.5-60.0The [facility] CenterComment on above:Performed By: #### POCGLUC #### [facility] [address] [address] [address] Taylor DamonUAL DIFF REQNONormalThe [facility] CenterComment on above: Performed By: #### POCGLUC #### [facility] [address] [address] [address] Taylor Marley (RBC) [Entitic mass]32.1 tgYmyaze95.9-34.0The [facility] CenterComment on above:Performed By: #### POCGLUC #### [facility] [address] [address] [address] Taylor Marley (RBC) [Mass/Vol]38.3 g/dLCritically high29.9-35.2The [facility] CenterComment on above:Performed By: #### POCGLUC #### [facility] [address] [address] [address] Taylor Marley (RBC) [Entitic vol]83.8 aKVuyljw47.0-94.0The [facility] CenterComment on above:Performed By: #### POCGLUC #### [facility] [address] [place] [address] Dr. Taylor Guillen #0.9 103/ulCritically high0.3-0.8The [facility] Comment on above:Performed By: #### POCGLUC #### [facility] [address] [place] [address] Dr. Taylor Alvarezocytes/100 WBC (Bld)6.7 %Normal1.7-12.0The [facility] Comment on above:Performed By: #### POCGLUC #### [facility] [address] [place] [address] Dr. Taylor Hansen #11.1 103/ulCritically high1.4-6.5The [facility] Comment on above:Performed By: #### POCGLUC #### [facility] [address] [place] [address] Dr. Taylor Friedutrophils/100 WBC (Bld)82.2 %Critically high43.0-75.0The [facility] CenterComment on above:Performed By: #### POCGLUC #### [facility] [address] [place] [address] Dr. Taylor Venegas mean volume (Bld) [Entitic vol]9.6 fLNormal9.5-13.5The [facility] CenterComment on above:Performed By: #### POCGLUC #### [facility] [address] [place] [address] Dr. Taylor GarciaPLT161 103/xkNycwea792-624Fzc [facility] CenterComment on above: Performed By: #### POCGLUC #### [facility] [address] [place] [address] Dr. Taylor GarciaRBC5.54 106/ulNormal4.70-6.10The [facility] CenterComment on above:Performed By: #### POCGLUC #### [facility] [address] [place] [address] Dr. Taylor GarciaWBC13.5 103/ulCritically high4.0-11.0The [facility] CenterComment on above:Performed By: #### POCGLUC #### [facility] [address] [address] [address] Taylor GarciaCT ABD/PELVIS WO CONon 96-92-4880TJ ABD/PELVIS WO CONEXAMINATION: CT ABD/PELVIS WO CON, [...] Electronically authenticated by: BRIGITTE BROWN Date: 2023-01-22 16:08[facility] WestCULTURE BLOODon 42-02-7796Gwhdpfwptkl examination of blood, cultureCulture Observations: NO GROWTH AT 5 DAYS. Isolate 1 BC_BA_SimeonGalion HospitalCommclaren bay region on above:Performed By: #### POCGLUC #### [facility] [address] [place], [place] [address] Dr. Taylor GarciaMicroscopic examination of blood, cultureCulture Observations: NO GROWTH AT 5 DAYS. Isolate 1 BC_BA_SimeonGalion HospitalComment on above:Performed By: #### POCGLUC #### [facility] [address] [address] [address] Taylor GarciaCalcium [Mass/volume] in Serum or PlasmaOrdered By: NON STAFF on 62-06-8613Wyebzqw [Mass/Vol]9.9 mg/dL8.6-10.3FMercy Hospital Carbon dioxide, total [Moles/volume] in Serum or PlasmaOrdered By: NON STAFF on 70-71-3717KW3 [Moles/Vol]21.5 mmol/L21.0-31.0[facility] Chloride [Moles/volume] in Serum or PlasmaOrdered By: NON STAFF on 01-22-2023 Chloride [Moles/Vol]95 mmol/J44-709EpemtngnyOhiohealth Grant Medical CenterCovid-19 PCR (CVDTBH)on 14-97-7202LEQT-CoV-2 (COVID-19) RNA HEIDY+probe Ql (Unsp spec)Not detectedNormalNOT DETECTEDThe [facility] on above:Result Comment: When diagnostic testing is [...] for this test is supported by the [employer] of Health and Human Service's declaration that [...] longer be used).Performed By: #### POCGLUC #### [facility] [address] [place], [place] [address] Dr. Taylor GarciaCreatinine [Mass/volume] in Serum or PlasmaOrdered By: NON STAFF on 84-84-8885Ffbbsmxqvz [Mass/Vol]0.94 mg/dL0.70-1.30[facility] CenterDIRECT LDLon 40-73-1892Sxmrygwreli in LDL [Mass/Vol]137 mg/dLRegency Hospital Cleveland WestComment on above:Performed By: #### POCGLUC #### [facility] [address] [place] [address] Dr. Taylor Cruz NORMALSEE BELOWRegency Hospital Cleveland WestComment on above: Result Comment: <100 mg/dl OPTIMAL 100 - 129 mg/dl NEAR OR ABOVE OPTIMAL 130 - 159 mg/dl BORDERLINE HIGH 160 - 189 mg/dl HIGH >190 mg/dl VERY HIGHPerformed By: #### POCGLUC #### [facility] [address] [place] [address] Dr. Taylor Rodriguez URINE PROFILEon 17-78-8584Hxolbbroo Ql (U)NegativeNormal NEGATIVEMercy Memorial HospitalComment on above:Performed By: #### POCGLUC #### [facility] [address] [address] [address] Taylor GarciaClarity (U)CLEARNormalCLEARMercy Memorial HospitalComment on above: Performed By: #### POCGLUC #### [facility] [address] [address] [address] Taylor Alvarenga (U)LT. YELLOWNormalYELLOWMercy Memorial HospitalComment on above:Performed By: #### POCGLUC #### [facility] [address] [address] [address] Taylor Muñoz micrscopic examination will be performed if indicated. NormalMercy Memorial HospitalComment on above:Performed By: #### POCGLUC #### [facility] [address] [address] [address] Taylor GarciaGlucose Ql (U)500 mg/dlAbnormalNEGATIVEMercy Memorial Hospital Comment on above:Performed By: #### POCGLUC #### [facility] [address] [place] [address] Dr. Taylor GarciaHemoglobin Ql (U)TRACE-INTACTAbnormalNEGATIVEMercy Memorial HospitalComment on above:Performed By: #### POCGLUC #### [facility] [address] [place] [address] Dr. Taylor Toth Ql (U)>=80AbnormalNEGATIVEThe [facility] CenterComment on above:Performed By: #### POCGLUC #### [facility] [address] [place] [address] Dr. Taylor GarciaLEUKOCYTESNegativeNormalNEGATIVEMercy Memorial HospitalComment on above:Performed By: #### POCGLUC #### [facility] [address] [place] [address] Dr. Taylor Chang Ql (U)NegativeNormalNEGATIVEThe [facility] CenterComment on above:Performed By: #### POCGLUC #### [facility] [address] [place] [address] Dr. Taylor GarciapH (U)5.5 [pH]Normal5-9The [facility] CenterComment on above: Performed By: #### POCGLUC #### [facility] [address] [place] [address] Dr. Taylor GarciaProtein (U) [Mass/Vol]30 mg/dLAbnormalNEGATIVE/ TRACEThe [facility] CenterComment on above:Performed By: #### POCGLUC #### [facility] [address] [place] [address] Dr. Taylor GarciaSPEC GRAVITY1.923Bmpigd1.005-<=1.025The [facility] Medical CenterCommclaren bay region on above:Performed By: #### POCGLUC #### [facility] [address] [place] [address] Dr. Taylor Brown MICRO INDINDICATEDNormalThe [facility] CenterComment on above: Performed By: #### POCGLUC #### [facility] [address] [place] [address] Dr. Taylor Hobbsgen Qn (U)0.2 {Sheridan'U}/dLNormal0.2 - 1.0The [facility] CenterComment on above:Performed By: #### POCGLUC #### [facility] [address] [address] [address] Taylor GarciaGlobulin Calc (S) [Mass/Vol]Ordered By: NON STAFF on 01-22-2023 Globulin (S) [Mass/Vol]2.6 g/dLOhiohealth Grant Medical CenterGlucose [Mass/volume] in Serum or PlasmaOrdered By: NON STAFF on 09-49-6861Nvljvwd [Mass/Vol]331 mg/yW62-285RacutvxwmOhiohealth Grant Medical CenterComment on above:ADA recommended reference rangeRandom Glucose Reference Range is dependent on time and content of last meal. Glucose of more than 200 mg/dL in a nonstressed, ambulatory subject supports the diagnosisof Diabetes Mellitus.LIPID PROFILEon 24-34-3893HTQP-HDL RATIO NORMSEE The Jewish HospitalCommclaren bay region on above:Result Comment: 3.3 - 4.4 LOW RISK 4.4 - 7.1 AVERAGE RISK 7.1 - 11.0 MODERATE RISK >11.0 HIGH RISKPerformed By: #### POCGLUC #### [facility] [address] [address] [address] Taylor Yeeesterol [Mass/Vol]380 mg/dLCritically high<=200Mercy Memorial HospitalCommclaren bay region on above:Performed By: #### POCGLUC #### [facility] [address] [address] [address] Taylor Yeeesterol in HDL [Mass/Vol]33 mg/dLCritically epq98-29AhwMercy Memorial HospitalCommclaren bay region on above:Performed By: #### POCGLUC #### [facility] [address] [address] [address] Taylor Miller.total/Cholesterol in HDL [Mass ratio]11.5 {ratio} NormalMercy Memorial HospitalCommclaren bay region on above:Performed By: #### POCGLUC #### [facility] [address] [address] [address] Taylor Puentes NORMAL> or = 60 mg/dl - LOW CARDIOVASCULAR RISK <40 mg/dl - HIGH CARDIOVASCULAR RISKRegency Hospital Cleveland WestCommclaren bay region on above:Performed By: #### POCGLUC #### [facility] [address] [address] [address] Taylor GarciaLDL CALC NORMALSEE BELOWRegency Hospital Cleveland WestComment on above:Result Comment: <100 mg/dl OPTIMAL 100 - 129 mg/dl NEAR OR ABOVE OPTIMAL 130 - 159 mg/dl BORDERLINE HIGH 160 - 189 mg/dl HIGH >190 mg/dl VERY HIGH Performed By: #### POCGLUC #### [facility] [address] [address] [address] Taylor GarciaTriglyceride [Mass/Vol]4548 mg/dLCritically high<=150Mercy Memorial HospitalComment on above:Performed By: #### POCGLUC #### [facility] [address] [address] [address] Taylor GarciaVLDL YKWL663.6 mg/dLRegency Hospital Cleveland WestComment on above: Performed By: #### POCGLUC #### [facility] [address] [address] [address] Taylor GarciaLactate [Moles/volume] in Serum or PlasmaOrdered By: NON STAFF on 45-15-6895Ezjhaau [Moles/Vol]1.0 mmol/L0.5-2.2FMercy Hospital Lipase [Enzymatic activity/volume] in Serum or PlasmaOrdered By: NON STAFF on 80-50-8490Ubdkkk [Catalytic activity/Vol]112.0 U/L11.0-82.0[facility] Medical CenterNo Panel InformationOrdered By: NON STAFF on 92-83-9585Amivwyrfr GFR (CKD-EPI)> 60.0 mL/MinOhiohealth Grant Medical CenterPharmacy Creatinine Clearance (ChemN/Berger HospitalPOINT OF CARE GLUCOSEon 39-79-8907Mqdpowv [Mass/Vol]523 mg/dLCritically hvmt55-934XgxMercy Memorial Hospital Comment on above:Result Comment: Will Repeat TestPerformed By: #### POCGLUC #### [facility] [address] [address] [address] Taylor GarciaPotassium [Moles/volume] in Serum or PlasmaOrdered By: NON STAFF on 22-95-0404Ctjuicgsd [Moles/Vol]4.1 mmol/L3.5-5.1FMercy HospitalProtein [Mass/volume] in Serum or PlasmaOrdered By: NON STAFF on 72-11-1344Riqhdwu [Mass/Vol]7.6 g/dL6.4-8.9[facility] Serum or plasma albumin/globulin mass ratioOrdered By: NON STAFF on 01-22-2023 Albumin/Globulin [Mass ratio]1.9 {ratio}[facility] Medical Centererum or plasma anion gap determinationOrdered By: NON STAFF on 75-09-4401Bwbzn gap [Moles/Vol]20.6 mmol/L6.0-15.0[facility] Medical Centerodium [Moles/volume] in Serum or PlasmaOrdered By: NON STAFF on 12-16-3255Xnrloi [Moles/Vol]133 mmol/F733-949McrhrimhtOhiohealth Grant Medical CenterURINE MICROSCOPIC ONLYon 34-17-4895CACVGQRLIKIA SEENNormalNONE SEENThe [facility] CenterComment on above:Performed By: #### POCGLUC #### [facility] [address] [place] [address] Dr. Taylor Parmar identified Cx Nom (U)NOT INDICATEDRegency Hospital Cleveland WestComment on above:Performed By: #### POCGLUC #### [facility] [address] [address] [address] Taylor Patel SEENNormalNONE SEENMercy Memorial HospitalCommclaren bay region on above:Performed By: #### POCGLUC #### [facility] [address] [address] [address] Taylor Owens LM Nom (Urine sed)NONE SEENNormalNONE SEENMercy Memorial HospitalComment on above:Performed By: #### POCGLUC #### [facility] [address] [address] [address] Taylor Valentethelial cells LM Ql (Urine sed)NONE SEENNormalNONE SEEN /RARE The [facility] CenterComment on above:Performed By: #### POCGLUC #### [facility] [address] [address] [address] Taylor Pozo SEENNormalNONE SEENThe [facility] Springs HospitalComment on above:Performed By: #### POCGLUC #### [facility] [address] [address] [address] Taylor GarciaOqywiRQO2-1Jtaana6-3Utz [facility] CenterCommclaren bay region on above:Performed By: #### POCGLUC #### [facility] [address] [place], [place] [address] Dr. Taylor GarciaWBC0-2AbnormalNONBradly SEENThe [facility] CenterComment on above: Performed By: #### POCGLUC #### [facility] [address] [place], [place] [address] Dr. Taylor GarciaUrea nitrogen [Mass/volume] in Serum or PlasmaOrdered By: NON STAFF on 00-95-8986Aask nitrogen [Mass/Vol]10 mg/dL7-25Ohio[facility] Medical CenterXR CHEST 1 Von 75-06-9633QW CHEST 1 VEXAMINATION: XR CHEST 1 V [...] Electronically authenticated by: CÉSAR SALES Date: 2023-01-22 14:40Reg[facility] Hospital [facility] WestXR FOOT LEFT (MIN 3 VIEWS)on 03-75-1713NU FOOT LEFT (MIN 3 VIEWS)EXAMINATION: THREE XRAY [...] Signed by: Rimma Nunn MD 04/23/22 Final resultNormalGalion HospitalHemoglobin A1Con 76-00-3882Kmzottc [Mass/Vol]97 mg/dLNormalGalion HospitalCommclaren bay region on above:Result Comment: The ADA and AACC recommend providing the estimated average glucose result to permit better patient understanding of their HBA1c result.Performed By: #### LIPR #### Lab [address] [place] [address] [employer]anner: Yogesh Lehman DO #### GLYHGB #### [address] [address] [employer]anner: Frank Otero MDHbA1c (Bld) [Mass fraction]5.0 %Normal4.0-6.0 Galion HospitalCommclaren bay region on above:Performed By: #### LIPR #### Lab [facility] [place] [address] [employer] Ops Planner: Yogesh Lehman DO #### GLYHGB #### [address] [address] [employer]anner: Frank Otero MDLipid Profileon 27-23-1416Qqdqhowqbxs [Mass/Vol] 161 mg/dLNormal<200Galion HospitalCommclaren bay region on above:Result Comment: Cholesterol Guidelines: <200 Desirable 200-240 Borderline >240 UndesirablePerformed By: #### LIPR #### Lab [address] [place] [address] [employer]anner: Yogesh Lehman DO #### GLYHGB #### [address] [address] Cyber Ops Planner: EDNA Modiholesterol in HDL [Mass/Vol]26 mg/dLLow>40Galion HospitalCommclaren bay region on above:Result Comment: HDL Guidelines: <40 Undesirable 40-59 Borderline >59 DesirablePerformed By: #### LIPR #### Lab [address] [place] [address] [employer]anner: Yogesh Lehman DO #### GLYHGB #### [facility] [address] [place] [address] [employer]anner: EDNA Modiholesterol in LDL [Mass/Vol]83 mg/dLNormal0-130 [facility] HospitalCommclaren bay region on above:Result Comment: LDL Guidelines: <100 Desirable 100-129 Near to/above Desirable 130-159 Borderline >159 Undesirable Direct (measured) LDL and calculated LDL are not interchangeable tests.Performed By: #### LIPR #### Lab [address] [place] [address] [employer]anner: Yogesh Lehman DO #### GLYHGB #### [address] [address] [employer]anner: EDNA Modiholesteboni.total/Cholesterol in HDL [Mass ratio]6.2 {ratio}High<5Mercy Mercy Memorial HospitalCommclaren bay region on above:Performed By: #### LIPR #### Lab [address] [place] [address] [employer]ps [employer]anner: Yogesh Lehman DO #### GLYHGB #### [address] [address] [employer]ps Planner: Frank Otero MDTriglyceride [Mass/Vol]260 mg/dLHigh<150Mercy Mercy Memorial HospitalCommclaren bay region on above:Result Comment: Triglyceride Guidelines: <150 Desirable 150-199 Borderline 200-499 High >499 Very high Based on AHA Guidelines for fasting triglyceride, July 2012.Performed By: #### LIPR #### Lab [address] [place] [address] [employer]anner: Yogesh Lehman DO #### GLYHGB #### [facility] [address] [place] [address] [employer]ps Planner: Frank Otero [facility] with Diffon 08-17-5396Fwt. Basophil0.00 k/uL Normal0.0-0.2Mercy Mercy Memorial HospitalCommclaren bay region on above:Performed By: #### ALCB, CDP, CMPX #### Lab [address] [place] [address] [employer]anner: Yogesh Lehman DOAbs.Neutrophil (Seg)4.60 k/uLNormal1.3-9.1 [facility] HospitalComment on above:Performed By: #### GEENA, CDP, CMPX #### Lab [address] [place] [address] [employer] Planner: Yogesh Lehman DOBasophils/100 WBC (Bld)1 %Normal0-2MAdams County HospitalComment on above:Performed By: #### GEENA, CDP, CMPX #### Lab [facility] [place] [address] [employer]anner: Yogesh Lehman DOEosinophils (Bld) [#/Vol]0.10 10*3/uLNormal 0.0-0.4Gal[facility] HospitalCommclaren bay region on above:Performed By: #### GEENA, MARA, CMPX #### Lab [facility] [place] [address] [employer]anner: Yogesh Lehman DOEosinophils/100 WBC (Bld)1 %Normal0-4Galion HospitalCommclaren bay region on above:Performed By: #### GEENA, CDP, CMPX #### Lab [facility] [place] [address] [employer]ps Planner: Yogesh Lehman DOErythrocyte distribution width (RBC) [Ratio] 13.2 %Pxgzcx42.5-14.9[facility] on above:Performed By: #### ALCB, CDP, CMPX #### Lab [address] [place] [address] [employer]anner: Yogesh Lehman DOHematocrit (Bld) [Volume fraction]50.0 % Imjzfk29-36LwpmiDetwiler Memorial Hospital on above:Performed By: #### ALCB, CDP, CMPX #### Lab [address] [place] [address] [employer]anner: Yogesh Lehman DOHemoglobin (Bld) [Mass/Vol]18.0 g/dLHigh 13.5-17.5[facility] on above:Performed By: #### ALCB, CDP, CMPX #### Lab [address] [place] [address] [employer]anner: Yogesh Lehman DOLymphocytes (Bld) [#/Vol]2.00 10*3/uLNormal 1.0-4.8[facility] on above:Performed By: #### ALCB, CDP, CMPX #### Lab [facility] [place] [address] [employer]ps Planner: Yogesh Lehman DOLymphocytes/100 WBC (Bld)29 %Gpyged58-54YjrnpDetwiler Memorial Hospital on above:Performed By: #### ALCB, CDP, CMPX #### Lab [facility] [place] [address] [employer]ps [employer]anner: Yogesh Lehman DOMCH (RBC) [Entitic mass]32.3 taXpoayc81-53 [facility] on above:Performed By: #### ALCB, CDP, CMPX #### Lab [address] [place] [address] [employer]anner: Yogesh Lehman DOMCHC (RBC) [Mass/Vol]36.1 g/vDTzwmgy74-81 [facility] on above:Performed By: #### ALCB, CDP, CMPX #### Lab [address] [place] [address] [employer] Planner: Yogesh Lehman DOMCV (RBC) [Entitic vol]89.6 zGGzawqn47-088 [facility] on above:Performed By: #### ALCB, CDP, CMPX #### Lab [address] [place] [address] [employer]ps Planner: Yogesh Lehman DOMonocytes (Bld) [#/Vol]0.40 10*3/uLNormal 0.1-1.3MMercy Health [facility] on above:Performed By: #### ALCB, CDP, CMPX #### Lab [facility] [place] [address] [employer] Ops Planner: Yogesh Lehman DOMonocytes/100 WBC (Bld)5 %Normal2-8[facility] on above:Performed By: #### ALCB, CDP, CMPX #### [address] [address] [employer]ps Planner: Yogesh Lehman DONeutrophil (Seg)64 %Ermhyy57-00WkcseDetwiler Memorial Hospital on above:Performed By: #### ALCB, CDP, CMPX #### Lab [facility] [place] [address] [employer]ps [employer]anner: Yogesh Lehman DOPlatelet mean volume (Bld) [Entitic vol]7.9 fLNormal6.0-12.0[facility] on above:Performed By: #### ALCB, CDP, CMPX #### Lab [address] [place] [address] [employer]anner: Yogesh Lehman DOPlatelets (Josephd) [#/Vol]213 10*3/uLNormal 150-450Galion HospitalComment on above:Performed By: #### ALCB, CDP, CMPX #### Lab [address] [place] [address] [employer] Ops Planner: Yogesh Lehman DORBC (Bld) [#/Vol]5.58 10*6/uLNormal4.5-5.9 [facility] HospitalCommclaren bay region on above:Performed By: #### ALCB, CDP, CMPX #### Lab [address] [place] [address] [employer]ps Planner: Yogesh Lehman DOWBC (Josephd) [#/Vol]7.1 10*3/uLNormal4.5-13.5 [facility] on above:Performed By: #### ALCB, CDP, CMPX #### Lab [address] [place] [address] [employer]ps Planner: Yogesh Lehman DOComp Metabolic Pr/rfx MGon 05-42-7263KJI [Catalytic activity/Vol]U/LLow5-41Galion HospitalCommclaren bay region on above: Performed By: #### ALCB, CDP, CMPX #### Lab [address] [place] [address] [employer] Ops Planner: Yogesh Lehman DO(cont.)[facility] Comment on above:Result Comment: Average GFR for 20-29 years old: 116 mL/min/1.73sq m Chronic Kidney Disease: <60 mL/min/1.73sq m Kidney failure: <15 mL/min/1.73sq m eGFR calculated using average adult body mass. Additional eGFR calculator available at: http://www.EMOSpeech.com/multiple_crcl_2012.htmPerformed By: #### ALCCindi, CDP, CMPX #### Lab [address] [place] [address] [employer]anner: Yogesh Lehman DOAlbumin [Mass/Vol]4.9 g/dLNormal3.5-5.2MAdams County HospitalComment on above:Performed By: #### GEENA, CDP, CMPX #### Lab [address] [place] [address] [employer] Ops Planner: Yogesh Lehman DOAlkaline Phos50 U/RNopvcq46-329FazgdGalion HospitalCommclaren bay region on above:Performed By: #### GEENA, CDP, CMPX #### [address] [address] [employer] Ops Planner: Yogesh Lehman DOAnion gap [Moles/Vol]11 mmol/LNormal9-17Galion HospitalCommclaren bay region on above:Performed By: #### GEENA, MARA, CMPX #### Lab [address] [place] [address] [employer] Ops Planner: Yogesh Lehman DOAST [Catalytic activity/Vol]21 U/LNormal<40 Gal[facility] HospitalCommclaren bay region on above:Performed By: #### GEENA, MARA, CMPX #### Lab [address] [place] [address] [employer] Ops Planner: Yogesh Lehman DOBilirubin [Mass/Vol]0.71 mg/dLNormal0.3-1.2 [facility] HospitalCommclaren bay region on above:Performed By: #### ALCB, CDP, CMPX #### Lab [address] [place] [address] [employer] Ops Planner: Yogesh Lehman DOCalcium [Mass/Vol]9.6 mg/dLNormal8.6-10.4 [facility] HospitalComment on above:Performed By: #### ALCB, CDP, CMPX #### Lab [address] [facility] [place] [address] [employer] Ops Planner: Yogesh Lehman DOChloride [Moles/Vol]101 mmol/OAunput22-878 [facility] HospitalComment on above:Performed By: #### ALCB, CDP, CMPX #### Lab [address] [place] [address] [employer] Ops Planner: Yogesh Lehman DOCO2 [Moles/Vol]26 mmol/FYogqms85-08GdnxiGalion HospitalComment on above:Performed By: #### ALCCindi CDP, CMPX #### Lab [address] [place] [address] [employer] Ops [employer]anner: Yogesh Lehman DOCreatinine [Mass/Vol]1.12 mg/dLNormal 0.70-1.20[facility] HospitalComment on above:Performed By: #### GEENA CDP, CMPX #### Lab [facility] [place] [address] [employer] Ops Planner: Yogesh Lehman DOGFR, Amer>60Normal>60Mer[facility] Mercy Memorial HospitalComment on above:Performed By: #### ALCCindi, CDP, CMPX #### Lab [facility] [place] [address] [employer] Ops Planner: Yogesh Lehman DOGFR,non Amer>60Normal>60[facility] Memorial HospitalComment on above:Performed By: #### ALCB, CDP, CMPX #### Lab [facility] [place] [address] Cyber Ops Planner: Fanelly, Yogesh, DOGlucose [Mass/Vol]118 mg/gLHitk58-61AokltAdams County HospitalComment on above:Performed By: #### ALCCindi CDP, CMPX #### Lab [address] [place] [address] [employer] Ops Planner: Yogesh Lehman DOPotassium [Moles/Vol]4.1 mmol/LNormal3.7-5.3 [facility] HospitalComment on above:Performed By: #### ALCB, CDP, CMPX #### [address] [address] Cyber Ops Planner: Yogesh Lehman DOProtein [Mass/Vol]7.6 g/dLNormal6.4-8.3MAdams County HospitalComment on above:Performed By: #### MARA SEAY, CMPX #### [address] [address] Cyber Ops Planner: Yogesh Lehman, DOSodium [Moles/Vol]138 mmol/CYbqjrp563-242 [facility] HospitalCommclaren bay region on above:Performed By: #### MARA SEAY, CMPX #### [address] [address] Cyber Ops Planner: Yogesh Lehman DOUrea nitrogen [Mass/Vol]18 mg/dLNormal6-20 [facility] HospitalCommclaren [place] region on above:Performed By: #### ALCB, CDP, CMPX #### [address] [address] Cyber Ops Planner: Yogesh Lehman DODrug Scr, Abuse, Uron 04-21-2022 Amphetamine(s),UrNegativeNormalNEGMercy Mercy Memorial HospitalCommclaren bay region on above: Result Comment: (Positive cutoff 1000 ng/mL)Performed By: #### UAMIC, BRANDIN #### Lab [address] [place] [address] Cyber Ops Planner: Yogesh Lehman DOBarbiturate(s),UrNegativeNormalNEGDetwiler Memorial Hospital on above:Result Comment: (Positive cutoff 200 ng/mL)Performed By: #### UAMIC, BRANDIN #### Lab [address] [place] [address] Cyber Ops Planner: Yogesh Lehman DOBenzodiazepine(s)NegativeNormalNEGMerCenterville on above:Result Comment: (Positive cutoff 200 ng/mL)Performed By: #### UAMIC, BRANDIN #### Lab [address] [place] [address] Cyber Ops Planner: Yogesh Lehman DOCannabinoid(s),UrPositiveAbnormalNEGDetwiler Memorial Hospital on above:Result Comment: (Positive cutoff 50 ng/mL)Performed By: #### UAMIC, BRANDIN #### Lab [address] [place] [address] Cyber Ops Planner: Yogesh Lehman DOCocaine MetaboliteNegativeMercy Health West Hospital on above:Result Comment: (Positive cutoff 300 ng/mL)Performed By: #### UAMIC, BRANDIN #### Lab [address] [place] [address] Cyber Ops Planner: Yogesh Lehman DOInterpretive InfoAssay provides medical screening only. The absence of expected drug(s) and/orNormalMercy Joint Township District Memorial Hospital on above:Result Comment: metabolite(s) may indicate diluted or adulterated urine, limitations of testing or timing of collection. Testing for legal purposes should be confirmed by another method. To request confirmation of test result, please call the lab within 7 days of sample submission.Performed By: #### UAMIC, BRANDIN #### Lab [address] [place] [address] Cyber Ops Planner: Yogesh Lehman DOMethadone Ql (U)NegativeNormalNEGGalion HospitalCommclaren bay region on above:Result Comment: (Positive cutoff 300 ng/mL)Performed By: #### UAMIC, BRANDIN #### Lab [facility] [place] [address] Cyber Ops Planner: Yogesh Lehman DOOpiate(s), UrNegativeNormalNEGDetwiler Memorial Hospital on above:Result Comment: (Positive cutoff 300 ng/mL)Performed By: #### UAMIC, BRANDIN #### Lab [address] [place] [address] Cyber Ops Planner: Yogesh Lehman DOOxycodone, UrineNegativeNormalNEGDetwiler Memorial Hospital on above:Result Comment: (Positive cutoff 100 ng/mL)Performed By: #### UAMIC, BRANDIN #### Lab [address] [place] [address] Cyber Ops Planner: Yogesh Lehman DOPhencyclidine, UrNegativeNormmeNEGDetwiler Memorial Hospital on above:Result Comment: (Positive cutoff 25 ng/mL)Performed By: #### UAMIC, BRANDIN #### Lab [address] [place] [address] Cyber Ops Planner: Yogesh Lehman DOEthanol Alcoholon 05-94-5268Ddfratb [Mass/Vol]mg/dLNormal<10Mer[facility] Memorial HospitalComment on above:Performed By: #### ALCB, CDP, CMPX #### Lab [address] [place] [address] Cyber Ops Planner: Yogesh Lehman DOEthanol percent<0.010NormalGalion HospitalCommclaren bay region on above:Performed By: #### ALCB, CDP, CMPX #### Lab [address] [facility] [place] [address] [employer] Ops Planner: Yogesh Lehman DOUrinalysleandro w/ Microon 50-29-3266UxgnguteKpyk Children's Mercy NorthlandEMeGuernsey Memorial HospitalComment on above:Performed By: #### UAMIC, BRANDIN #### Lab [address] [facility] [place] [address] Cyber Ops Planner: Yogesh Lehman DOBilirubin, SemiQt,UrNegativeNormalNEGGalion HospitalCommclaren bay region on above:Performed By: #### UAMIC, BRANDIN #### Lab [facility] [place] [address] Cyber Ops Planner: Yogesh Lehman DOBlood, UrineNegativeNormalKettering Health PrebleCommclaren bay region on above:Performed By: #### UAMIC, BRANDIN #### Lab [facility]0 [facility] [place] [address] Cyber Ops Planner: Yogesh Lehman DOCasts0 TO 2NormalGalion Hospital Comment on above:Performed By: #### UAMIC, BRANDIN #### Lab [facility]0 [facility] [place] [address] Cyber Ops Planner: Yogesh Lehman DOClarity (U)TurbidAbnormalCLEARMercTriHealth Bethesda North HospitalComment on above:Performed By: #### UAMIC, BRANDIN #### Lab [address] [facility] [place] [address] Cyber Ops Planner: Yogesh Lehman DOColor (U)YellowNormalYELMerGuernsey Memorial HospitalCommclaren bay region on above:Performed By: #### UAMIC, BRANDIN #### Lab [address] [facility] [place] [address] Cyber Ops Planner: Yogesh Lehman DOEpithelial cells LM Ql (Urine sed)0 TO 2 NormalSumma Health Barberton CampusGuernsey Memorial HospitalCommclaren bay region on above:Performed By: #### UAMIC, BRANDIN #### Lab [address] [place] [address] Cyber Ops Planner: Yogesh Lehman DOGlucose Ql (U)NegativeNormalNEGMercy Mercy Memorial HospitalCommclaren bay region on above:Performed By: #### UAMIC, BRANDIN #### Lab [address] [place] [address] Cyber Ops Planner: Yogesh Lehman DOKetones Ql (U)TRACEAbnormalNEGMerGuernsey Memorial HospitalCommclaren bay region on above:Performed By: #### UAMIC, BRANDIN #### [address] [address] Cyber Ops Planner: Yogesh Lehman DOLeukocyte esterase Test strip Ql (U)Negative NormalNEGGalion HospitalCommclaren bay region on above:Performed By: #### UAMIC, BRANDIN #### [address] [address] Cyber Ops Planner: Yogesh Lehman DONitrite,UrNegativeNormalNEGGalion HospitalCommclaren bay region on above:Performed By: #### UAMIC, BRANDIN #### Lab [address] [place] [address] Cyber Ops Planner: Yogesh Lehman DOPH,Ur7.6Dnlgxs8.0-8.0Mercy Mer[facility] Memorial HospitalCommclaren bay region on above:Performed By: #### UAMIC, BRANDIN #### Lab [address] [place] [address] Cyber Ops Planner: Yogesh Lehman DOProtein Ql (U)NegativeNormalNEGMerGuernsey Memorial HospitalCommclaren bay region on above:Performed By: #### UAMIC, BRANDIN #### Lab [address] [place] [address] Cyber Ops Planner: Yogesh Lehman DOSpec. Aguila,Ur1.758Chocjl5.000-1.030Galion HospitalComment on above:Performed By: #### UAMIC, BRANDIN #### Lab [address] [place] [address] Cyber Ops Planner: Yogesh Lehman DOUrine RBC's0 TO 2NSuburban Community Hospital & Brentwood HospitalCommclaren bay region on above:Performed By: #### UAMIC, BRANDIN #### Lab [address] [place] [address] Cyber Ops Planner: Yogesh Lehman DOUrine WBC's0 TO 2NSuburban Community Hospital & Brentwood HospitalCommclaren bay region on above:Performed By: #### UAMIC, BRANDIN #### Lab [address] [place] [address] Cyber Ops Planner: Yogesh Lehman DOUrobilinogen,UrNormalNormalNORMGalion HospitalCommclaren bay region on above:Performed By: #### UAMIC, BRANDIN #### Lab [address] [place] [address] Cyber Ops Planner: Yogesh Lehman DOMiscel [facility] [id number] Out ReportSEE ACMC Healthcare SystemComment on above:Result Comment: (NOTE) Test name Result [...] developed and its performance characteristics determined by [facility]. It has not been cleared or approved by the [place] Food and Drug Administration. Testing performed at [facility] [address] [place] [id number] CLIA [id number] By: #### ATRAZO #### [address] [address] Cyber Ops Planner: Kodak Akbar MD #### CMPX, EDTOX, LIP, CDP #### [address] [address] Cyber Ops Planner: Fantasma Modi [id number]<5.3Iicmmd7.0-5.0[facility]tering Health TroyComment on above:Result Comment: (NOTE) INTERPRETIVE INFORMATION: Glutamic Acid Decarboxylase Antibody A value greater than 5.0 IU/mL is considered positive for Glutamic Acid Decarboxylase Antibody (AUGIE Ab). This assay is intended for the semi-quantitative determination of the AUGIE Ab in human serum. Results should be interpreted within the context of clinical symptoms. Performed By: [facility] [address] [place], [place] [id number] Ophthalmic Photographer: MILAGROS Rodrigueserformed By: #### ATRAZO #### [address] [address] Cyber Ops Planner: Kodak Akbar MD #### CMPX, EDTOX, LIP, CDP #### [address] [address] Cyber Ops Planner: JANNET Modi-65 AUTOANTIBODYon [id number] Acid Decarb Ab<5.0[place], KYComment on above:(NOTE) INTERPRETIVE INFORMATION: Glutamic Acid Decarboxylase Antibody A value greater than 5.0 IU/mL is considered positive for Glutamic Acid Decarboxylase Antibody (AUGIE Ab). This assay is intended for the semi-quantitative determination of the AUGIE Ab in human serum. Results should be interpreted within the context of clinical symptoms. Performed By: [facility] [address] [place] [address] Ophthalmic Photographer: Zayda Ospina MD Hemoglobin A1Con [id number] [Mass/Vol]203 mg/dLHegins, [place] Comment on above:The ADA and AACC recommend providing the estimated average glucose result to permit better patient understanding of their HBA1c result. HbA1c (Bld) [Mass fraction]8.7 %High4 - 6 %[facility], MOInterpretation and review of laboratory resultsAbnoHebron, KYPO Glucose Fingerstickon [id number] [Mass/Vol]205 mg/qDFzrq34 - 110 mg/dLCleveland Clinic [facility], MOInterpretation and review of laboratory resultsAbnoHebron, KYTRAZADONEon 95-22-1334Kqcxvecwm9.62 ug/mL0.5 - 2.5 ug/mLHegins, KYComment on above:(NOTE) INTERPRETIVE INFORMATION: Trazodone Therapeutic Range: 0.50 - 2.50 ug/mL Toxic: Greater than 4.00 ug/mL Adverse effects may include sedation, fatigue, headache, blurred vision and nausea. See Compliance Statement B: PrivateGriffe.Efizity/CS Performed By: [facility] [address] [place] [address] Ophthalmic Photographer: Zayda Ospina MD Trazadoneon 43-49-4467RXTZFX>6.26Totx6.50-2.50[facility] Comment on above:Result Comment: (NOTE) INTERPRETIVE INFORMATION: Trazodone Therapeutic Range: 0.50 - 2.50 ug/mL Toxic: Greater than 4.00 ug/mL Adverse effects may include sedation, fatigue, headache, blurred vision and nausea. See Compliance Statement B: PrivateGriffe.Efizity/CS Performed By: [facility] [address] [place], [place] [id number] Ophthalmic Photographer: MILAGROS Rodrigueserformed By: #### ATRAZO #### [facility] [address] [place] [address] Cyber Ops Planner: Kodak Akbar MD #### CMPX, EDTOX, LIP, CDP #### [address] [phone] Cyber Ops Planner: Frank Otero MDTRAZOA1.62 ug/mLNormal0.50-2.50[facility] Health TroyComment on above:Result Comment: (NOTE) INTERPRETIVE INFORMATION: Trazodone Therapeutic Range: 0.50 - 2.50 ug/mL Toxic: Greater than 4.00 ug/mL Adverse effects may include sedation, fatigue, headache, blurred vision and nausea. See Compliance Statement B: PrivateGriffe.Efizity/ Performed By: [facility] [address] [place] [address] Ophthalmic Photographer: MILAGROS Rodrigueserformed By: #### ATRAZO #### [address] [address] Cyber Ops Planner: Kodak Akbar MD #### CMPX, EDTOX, LIP, CDP #### [address] [address] Cyber Ops Planner: Kaz Modi Metab w/rfx MGon 08-01-2020(cont.)Normal [facility] TroyComment on above:Result Comment: Average GFR for <20 years old not available. Chronic Kidney Disease: <60 mL/min/1.73sq m Kidney failure: <15 mL/min/1.73sq m eGFR calculated using average adult body mass. Additional eGFR calculator available at: http://www.EMOSpeech.com/multiple_crcl_2012.htmPerformed By: #### ATRAZO #### [address] [address] Cyber Ops Planner: Kodak Akbar MD #### CMPX, EDTOX, LIP, CDP #### [address] [phone] Cyber Ops Planner: Frank Otero MDGFR,non AmerPediatric GFR requires additional information. Refer to NKDEP website forNormal>60[facility] Health TroyComment on above:Result Comment: calculator.Performed By: #### ATRAZO #### [facility] [address] [place] [address] Cyber Ops Planner: Kodak Akbar MD #### CMPX, EDTOX, LIP, CDP #### [facility] [address] [place] [address] Cyber Ops Planner: LELIA Modi/LANEY Alfaro REPORTEDNormal9-20[facility] TroyComment on above:Performed By: #### ATRAZO #### [facility] [address] [place] [address] Cyber Ops Planner: Kodak Akbar MD #### CMPX, EDTOX, LIP, CDP #### [facility] [address] [phone] Cyber Ops Planner: RADHA Modi, AmerNOT REPORTEDNormal>60[facility] TroyComment on above:Performed By: #### ATRAZO #### [facility] [address] [place] [address] Cyber Ops Planner: Kodak Akbar MD #### CMPX, EDTOX, LIP, CDP #### [address] [phone] Cyber Ops Planner: WILLIAM Moditaging:NOT REPORTEDNormalKettering Health TroyComment on above:Performed By: #### ATRAZO #### [facility] [address] [place] [address] Cyber Ops Planner: Kodak Akbar MD #### CMPX, EDTOX, LIP, CDP #### [address] [address] Cyber Ops Planner: Janay Modi gap [Moles/Vol]13 mmol/LNormal9-17[facility], MOComment on above:Performed By: #### ATRAZO #### [facility] [address] [place] [address] Cyber Ops Planner: Kodak Akbar MD #### CMPX, EDTOX, LIP, CDP #### [address] [phone] Cyber Ops Planner: Frank Otero MDCalcium [Mass/Vol]9.3 mg/dLNormal8.6-10.4[facility], KYComment on above:Performed By: #### ATRAZO #### [facility] [address] [place] [address] Cyber Ops Planner: Kodak Akbar MD #### FELICIA BUNN, LIP, CDP #### [address] [address] Cyber Ops Planner: Frank Otero MDChloride [Moles/Vol]104 mmol/MZrbflo18-148Act[facility]- [place], KYComment on above:Performed By: #### ATRAZO #### [facility] [address] [place] [address] Cyber Ops Planner: Kodak Akbar MD #### FELICIA BUNN, LIP, CDP #### [address] [address] Cyber Ops Planner: Frank Otero, MDCO2 [Moles/Vol]23 mmol/XAdgqfc12-41Kbhge [facility]- [place], KYComment on above:Performed By: #### ATRAZO #### [facility] [address] [place] [address] Cyber Ops Planner: Kodak Akbar MD #### CMPX, EDTOX, LIP, CDP #### [address] [phone] Cyber Ops Planner: Frank Otero MDCreatinine [Mass/Vol]0.92 mg/dLNormal0.70-1.20 [facility], KYComment on above:Performed By: #### ATRAZO #### [facility] [address] [place] [address] Cyber Ops Planner: Kodak Akbar MD #### CMPX, EDTOX, LIP, CDP #### [address] [phone] Cyber Ops Planner: rFank Otero MDGlucose [Mass/Vol]185 mg/nHQgqh74-14Jjnpt Health- [place], KYComment on above:Performed By: #### ATRAZO #### [facility] [address] [place] [address] Cyber Ops Planner: Kodak Akbar MD #### CMPX, EDTOX, LIP, CDP #### [address] [phone] Cyber Ops Planner: MILAGROS Modiotassium [Moles/Vol]4.1 mmol/LNormal3.7-5.3 [facility], KYComment on above:Performed By: #### ATRAZO #### [address] [address] Cyber Ops Planner: Kodak Akbar MD #### CMPKatalina EDNORRISX, LIP, CDP #### [address] [phone] Cyber Ops Planner: WILLIAM Modiodium [Moles/Vol]140 mmol/VWxgkvu656-726Fuqcg Health- [place], KYComment on above:Performed By: #### ATRAZO #### [facility] [address] [place] [address] Cyber Ops Planner: Kodak Akbar MD #### CMPX, EDTOX, LIP, CDP #### [address] [phone] Cyber Ops Planner: Frank Otero MDUrea nitrogen [Mass/Vol]12 mg/dLNormal6-20[facility], KYComment on above:Performed By: #### ATRAZO #### [facility] [address] [place] [address] Cyber Ops Planner: Kodak Akbar MD #### CMPX, EDTOX, LIP, CDP #### [address] [phone] Cyber Ops Planner: Frank Otero [facility] with Diffon 93-20-4848Lkc. Basophil0.05 k/uL Normal0.00-0.20[facility] TroyComment on above:Performed By: #### ATRAZO #### [facility] [address] [place] [address] Cyber Ops Planner: Kodak Akbar MD #### CMPKatalina, EDTOKatalina, LIP, CDP #### [address] [phone] Cyber Ops Planner: Luis Enrique Modi.Imm.Granulocyte0.03 k/uLNormal0.00-0.30[facility] TroyComment on above:Performed By: #### ATRAZO #### [facility] [address] [place] [address] Cyber Ops Planner: Kodak Akbar MD #### SEPIDEH, FELICIA, LIP, CDP #### [address] [phone] Cyber Ops Planner: Luis Enrique Modi.Neutrophil (Seg)2.38 k/uLNormal1.80-8.00 [facility] TroyComment on above:Performed By: #### ATRAZO #### [facility] [address] [place] [address] Cyber Ops Planner: Kodak Akbar MD #### CMPX, EDTOX, LIP, CDP #### [address] [phone] Cyber Ops Planner: Frank Otero MDBasophils/100 WBC (Bld)1 %Normal0-2MercCommunity Memorial Hospital of San BuenaventuraComment on above:Performed By: #### ATRAZO #### [facility] [address] [place] [address] Cyber Ops Planner: Kodak Akbar MD #### CMPX, EDTOX, LIP, CDP #### [facility] [address] [place] [address] Cyber Ops Planner: Frank Otero MDEosinophils (Bld) [#/Vol]0.08 10*3/uLNormal 0.00-0.44[facility] TroyComment on above:Performed By: #### ATRAZO #### [facility] [address] [place] [address] Cyber Ops Planner: Kodak Akbar MD #### CMPX, EDTOX, LIP, CDP #### [address] [phone] Cyber Ops Planner: Frank Otero MDEosinophils/100 WBC (Bld)2 %Normal1-4[facility] TroyComment on above:Performed By: #### ATRAZO #### [facility] [address] [place], [place] [id number] Cyber Ops Planner: Kodak Akbar MD #### CMPX, EDTOX, LIP, CDP #### [address] [phone] Cyber Ops Planner: Frank Otero MDErythrocyte distribution width (RBC) [Ratio]12.6 %Wzynku08.8-14.4[facility] TroyComment on above:Performed By: #### ATRAZO #### [facility] [address] [place], [place] [id number] Cyber Ops Planner: Kodak Akbar MD #### CMPX, EDTOX, LIP, CDP #### [address] [phone] Cyber Ops Planner: Frank Otero MDHematocrit (Bld) [Volume fraction]46.5 %Normal 40.7-50.3[facility] Medical CenterComment on above:Performed By: #### ATRAZO #### [facility] [address] [place], [place] [phone] Cyber Ops Planner: Kodak Akbar MD #### CMPX, EDTOX, LIP, CDP #### [place] [address] Cyber Ops Planner: Frank Otero MDHemoglobin (Bld) [Mass/Vol]16.0 g/dLNormal 13.0-17.0[facility] TroyComment on above:Performed By: #### ATRAZO #### [facility] [address] [place] [address] Cyber Ops Planner: Kodak Akbar MD #### CMPX, EDTOX, LIP, CDP #### [place] [address] Cyber Ops Planner: Frank Otero MDImmature granulocytes (Bld) [#/Vol]1 %Kttk9XpgzoKettering Health TroyComment on above:Performed By: #### ATRAZO #### [facility] [address] [place] [address] Cyber Ops Planner: Kodak Akbar MD #### CMPX, EDTOX, LIP, CDP #### [place] [phone] Cyber Ops Planner: Frank Otero MDLymphocytes (Bld) [#/Vol]1.81 10*3/uLNormal 1.20-5.20[facility] TroyComment on above:Performed By: #### ATRAZO #### [facility] [address] [place] [address] Cyber Ops Planner: Kodak Akbar MD #### CMPX, EDTOX, LIP, CDP #### [place] [phone] Cyber Ops Planner: Frank Otero MDLymphocytes/100 WBC (Bld)38 %Sfzhup77-55LhawwKettering Health TroyComment on above:Performed By: #### ATRAZO #### [facility] [address] [place] [address] Cyber Ops Planner: Kodak Akbar MD #### CMPX, EDTOX, LIP, CDP #### [address] [phone] Cyber Ops Planner: BHANU ModiCH (RBC) [Entitic mass]31.6 riSczzyz94.2-33.5 [facility] TroyComment on above:Performed By: #### ATRAZO #### [facility] [address] [place] [address] Cyber Ops Planner: Kodak Akbar MD #### CMPX, EDTOX, LIP, CDP #### [address] [phone] Cyber Ops Planner: HERSON ModiC (RBC) [Mass/Vol]34.4 g/uBJvudli19.4-34.8 [facility] TroyComment on above:Performed By: #### ATRAZO #### [facility] [address] [place] [address] Cyber Ops Planner: Kodak Akbar MD #### CMPX, EDTOX, LIP, CDP #### [address] [address] Cyber Ops Planner: BHANU ModiCV (RBC) [Entitic vol]91.7 oPPpulmn98.6-102.9 [facility] TroyComment on above:Performed By: #### ATRAZO #### [facility] [address] [place] [address] Cyber Ops Planner: Kodak Akbar MD #### CMPX, EDTOX, LIP, CDP #### [facility] [address] [place] [address] Cyber Ops Planner: BHANU Modionocytes (Bld) [#/Vol]0.47 10*3/uLNormal 0.10-1.40[facility] TroyComment on above:Performed By: #### ATRAZO #### [facility] [address] [place] [address] Cyber Ops Planner: Kodak Akbar MD #### CMPX, EDTOX, LIP, CDP #### [facility] [address] [place] [address] Cyber Ops Planner: BHANU Modionocytes/100 WBC (Bld)10 %High2-8[facility] TroyComment on above:Performed By: #### ATRAZO #### [facility] [address] [place] [address] Cyber Ops Planner: Kodak Akbar MD #### CMPX, EDTOX, LIP, CDP #### [address] [address] Cyber Ops Planner: Frank Otero MDNeutrophil (Seg)49 %Uidzgl91-96TitvgKettering Health TroyComment on above:Performed By: #### ATRAZO #### [facility] [address] [place] [address] Cyber Ops Planner: Kodak Akbar MD #### CMPX, EDTOX, LIP, CDP #### [facility] [address] [place] [address] Cyber Ops Planner: Frank Otero MDNRBC Automated0.0 per 100 WBCNormal0.0[facility] TroyComment on above:Performed By: #### ATRAZO #### [facility] [address] [place] [address] Cyber Ops Planner: Kodak Akbar MD #### CMPX, EDTOX, LIP, CDP #### [address] [address] Cyber Ops Planner: Viki Modi mean volume (Bld) [Entitic vol]10.5 fL Normal8.1-13.5[facility] TroyComment on above:Performed By: #### ATRAZO #### [facility] [address] [place] [address] Cyber Ops Planner: Kodak Akbar MD #### CMPX, EDTOX, LIP, CDP #### [address] [address] Cyber Ops Planner: Irvin Modi (Bld) [#/Vol]141 10*3/tVXticsq507-100 [facility] TroyComment on above:Performed By: #### ATRAZO #### [facility] [address] [place] [address] Cyber Ops Planner: Kodak Akbar MD #### CMPX, EDTOX, LIP, CDP #### [place] [address] Cyber Ops Planner: Frank Otero [facility] HEALTHBC (Bld) [#/Vol]5.07 10*6/uLNormal4.21-5.77 [facility] TroyComment on above:Performed By: #### ATRAZO #### [facility] [address] [place] [address] Cyber Ops Planner: Kodak Akbar MD #### CMPX, EDTOX, LIP, CDP #### [address] [address] Cyber Ops Planner: Frank Otero MDWBC (Bld) [#/Vol]4.8 10*3/uLNormal4.5-13.5[facility] TroyComment on above:Performed By: #### ATRAZO #### [facility] [address] [place] [address] Cyber Ops Planner: Kodak Akbar MD #### CMPX, EDTOX, LIP, CDP #### [facility] [address] [place] [address] Cyber Ops Planner: Kay Modi PerformedNOT REPORTEDSheltering Arms HospitalComment on above:Performed By: #### ATRAZO #### [facility] [address] [place] [address] Cyber Ops Planner: Kodak Akbar MD #### CMPX, EDTOX, LIP, CDP #### [facility] [address] [place] [address] [phone] Cyber Ops Planner: MILAGROS Modilatelets (Bld) [#/Vol]NOT REPORTEDSheltering Arms HospitalComment on above:Performed By: #### ATRAZO #### [facility] [address] [place] [address] Cyber Ops Planner: Kodak Akbar MD #### CMPX, EDTOX, LIP, CDP #### [facility] [address] [place] [address] [phone] Cyber Ops Planner: EVAN Modi morphology finding Nom (Bld)NOT REPORTED [facility] HospitalComment on above:Performed By: #### ATRAZO #### [facility] [address] [place] [address] Cyber Ops Planner: Kodak Akbar MD #### CMPX, EDTOX, LIP, CDP #### [facility] [address] [place] [address] [phone] Cyber Ops Planner: Frank Otero MDWBC MorphologyNOT REPORTEDSheltering Arms HospitalComment on above:Performed By: #### ATRAZO #### [facility] [address] [place] [address] Cyber Ops Planner: Kodak Akbar MD #### CMPX, EDTOX, LIP, CDP #### [facility] [address] [place] [phone] Cyber Ops Planner: Frank Otero MDHematologyon 14-96-6983Diibnvtnk (Bld) [#/Vol] 0.05 10*3/[facility]- [place], KYBasophils/100 WBC (Bld)1 %0 - 2 %[facility] [place], KYEosinophils (Bld) [#/Vol]0.08 10*3/[facility]- [place], KYEosinophils/100 WBC (Bld)2 %1 - 4 %[facility]- [place], KYHematocrit (Bld) [Volume fraction]46.5 % 40.7 - 50.3 %[facility]- [place], KYHemoglobin (Bld) [Mass/Vol]16.0 g/dL13 - 17 g/dLWilson [address] Hospital- [place], KYLymphocytes (Bld) [#/Vol]1.81 10*3/[facility]- [place], KYLymphocytes/100 WBC (Bld)38 %25 - 45 %[facility]- [place], KYMCH (RBC) [Entitic mass]31.6 pg25.2 - 33.5 pgDelaware County Hospital [place], KYMCV (RBC) [Entitic vol]91.7 fL82.6 - 102.[address]- [place], KYMonocytes (Bld) [#/Vol]0.47 10*3/[facility]- [place], KYMonocytes/100 WBC (Bld)10 %High2 - 8 %[facility]- [place], KYPlatelets (Bld) [#/Vol]NOT REPORTEDWilson [address] Hospital- [place], KYPlatelets (Bld) [#/Vol]141 10*3/[facility]- [place], KYRBC (Bld) [#/Vol]5.07 10*6/uL4.21 - 5.77 m/[facility]- [place], [place] RBC morphology finding Nom (Bld)NOT REPORTEDWilson Street Hospital- [place], KYWBC (Bld) [#/Vol]4.8 10*3/uLCleveland Clinic Marymount Hospital, DENITAWBC (Bld) [#/Vol]0.0 10*3/uL0.0 per 100 WBCCleveland Clinic Marymount Hospital, Morelia Singhon 26-05-5672Extjngwu Phos42 U/YXetvun15-424 [facility] TroyComment on above:Performed By: #### ATRAZO #### [facility] [address] [place] [address] Cyber Ops Planner: Kodak Akbar MD #### CMPX, EDTOX, LIP, CDP #### [address] [address] Cyber Ops Planner: Frank Otero MDGlobulin (S) [Mass/Vol]NOT REPORTEDNormal1.5-3.8 [facility] TroyComment on above:Performed By: #### ATRAZO #### [facility] [address] [place] [address] Cyber Ops Planner: Kodak Akbar MD #### CMPX, EDTOX, LIP, CDP #### [address] [address] Cyber Ops Planner: Frank Otero MDAlbumin [Mass/Vol]4.2 g/dLNormal3.5-5.2MWaverly, KYComment on above:Performed By: #### ATRAZO #### [facility] [address] [place], [place] [id number] Cyber Ops Planner: Kodak Akbar MD #### CMPX, EDTOX, LIP, CDP #### [address] [address] Cyber Ops Planner: Frank Otero MDAlbumin/Globulin [Mass ratio]1.9 {ratio}Normal 1.0-2.5[place], KYComment on above:Performed By: #### ATRAZO #### [facility] [address] [place], [place] [phone] Cyber Ops Planner: Kodak Akbar MD #### CMPX, EDTOX, LIP, CDP #### [address] [address] Cyber Ops Planner: Frank Otero MDALT [Catalytic activity/Vol]20 U/LNormal5-41 [facility], KYComment on above:Performed By: #### ATRAZO #### [facility] [address] [place] [address] Cyber Ops Planner: Kodak Akbar MD #### CMPX, EDTOX, LIP, CDP #### [address] [address] Cyber Ops Planner: Frank Otero MDAST [Catalytic activity/Vol]15 U/LNormal<40[facility], KYComment on above:Performed By: #### ATRAZO #### [facility] [address] [place] [address] Cyber Ops Planner: Kodak Akbar MD #### CMPX, EDTOX, LIP, CDP #### [address] [address] Cyber Ops Planner: Frank Otero MDBilirubin Ql (U)0.56 mg/dLNormal0.3-1.2MKindred Healthcare, KYComment on above:Performed By: #### ATRAZO #### [facility] [address] [place], [place] [id number] Cyber Ops Planner: Kodak Akbar MD #### CMPX, EDTOX, LIP, CDP #### [address] [address] Cyber Ops Planner: Frank Otero MDBilirubin, Indirect0.43 mg/dLNormal0.00-1.00 [facility], KYComment on above:Performed By: #### ATRAZO #### [facility] [address] [place], [place] [phone] Cyber Ops Planner: Kodak Akbar MD #### CMPX, EDTOX, LIP, CDP #### [address] [phone] Cyber Ops Planner: Gregory Modiirubin.direct [Mass/Vol]0.13 mg/dLNormal<0.31 [place], KYCommclaren bay region on above:Performed By: #### ATRAZO #### [facility] [address] [place] [address] Cyber Ops Planner: Kodak Akbar MD #### CMPX, EDTOX, LIP, CDP #### [address] [address] Cyber Ops Planner: Frank Otero MDProtein [Mass/Vol]6.4 g/dLNormal6.4-8.3MWaverly, KYCommclaren bay region on above:Performed By: #### ATRAZO #### [facility] [address] [place], [place] [id number] Cyber Ops Planner: Kodak Akbar MD #### CMPX, EDTOX, LIP, CDP #### [address] [address] Cyber Ops Planner: BHANU Modietabolic Panelon [id number] [Catalytic activity/Vol]42 U/L40 - 129 U/LMKindred Healthcare, KYGFR/1.73 sq M predicted among non-blacks MDRD (S/P/Bld) [Vol rate/Area][place], KYCommclaren bay region on above: Average GFR for <20 years old not available. Chronic Kidney Disease: <60 mL/min/1.73sq m Kidney failure: <15 mL/min/1.73sq m eGFR calculated using average adult body mass. Additional eGFR calculator available at: http://www.EMOSpeech.Efizity/multiple_crcl_2012.htm GFR/1.73 sq M predicted among non-blacks MDRD (S/P/Bld) [Vol rate/Area]NOT REPORTEDCleveland Clinic Marymount HospitalJavieron 53-19-2549EOPF-CoV-2, TotalNegativeNEGATIVE [facility] HospitalDENITACrittenton Behavioral Health on above: Negative results do not rule [...] authorized laboratories. Fact sheet for Healthcare Providers: https://www.fda.gov/media/489354/download Fact sheet for Patients: https://www.fda.gov/media/531235/download METHODOLOGY: ECIA DJDU-KzM-4Jbxww Health- OHRADHAXGEMTE-CjJ-9, RapidNot DetectedNot DetectedCleveland Clinic Marymount Hospital [facility] on above: Rapid NAAT: The specimen [...] management decisions. Fact sheet for Healthcare Providers: https://www.fda.gov/media/408504/download Fact sheet for Patients: https://www.fda.gov/media/433551/download Methodology: Isothermal Nucleic Acid Amplification Source.NASOPHARYNGEAL SWABCleveland Clinic Marymount Hospital, KYBun/Cre RatioNOT REPORTEDCleveland Clinic [facility]mount Hospital, KYGFR AmericanNOT REPORTED>60 mL/minCleveland Clinic Marymount Hospital, KYGFR Non- AmericanPediatric GFR requires additional information. Refer to NKDEP website for calculator.>60 mL/minCleveland Clinic Marymount Hospital, MOGlobulin (S) [Mass/Vol]NOT REPORTED1.5 - 3.8 g/dLCleveland Clinic Marymount Hospital, KYInterpretation and review of laboratory resultsAbnoCincinnati VA Medical Center, KYDifferential TypeNOT REPORTEDCleveland Clinic [facility]mount Hospital, MOErythrocyte distribution width (RBC) [Ratio]12.6 % 11.8 - 14.4 %[facility], MOImmasumma health wadsworth - r[facility] granulocytes (Bld) [#/Vol]1 %High0 [facility], MOImmature granulocytes (Bld) [#/Vol]0.03 10*3/uLCleveland Clinic Marymount Hospital, KYInterpretation and review of laboratory resultsAbnoCincinnati VA Medical Center, MOMCHC (RBC) [Mass/Vol]34.4 g/dL28.4 - 34.8 g/dLCleveland Clinic Marymount Hospital, MOPlatelet mean volume (Bld) [Entitic vol]10.5 fL8.1 - 13.5 fLCleveland Clinic Marymount Hospital, MOSegmented neutrophils/100 WBC (Bld)49 %34 - 64 %[facility], MOSegs Absolute2.38[facility], KYWBC MorphologyNOT REPORTEDC[facility] Clinic [facility], MOPOC Glucose Fingerstickon 01-16-9248Wxihtlb [Mass/Vol]193 mg/sTLfpt35 - 110 mg/dLCleveland Clinic Marymount Hospital, KYInterpretation and review of laboratory resultsAbnoCincinnati VA Medical Center, MOGlucose [Mass/Vol]162 mg/iKSkrk51 - 110 mg/dLCleveland Clinic Marymount Hospital, [place] Interpretation and review of laboratory resultsAbnoCincinnati VA Medical Center, [place] Glucose [Mass/Vol]204 mg/bGTwtg27 - 110 mg/dLCleveland Clinic Marymount Hospital, MOInterpretation and review of laboratory resultsAbnoCincinnati VA Medical Center, MOGlucose [Mass/Vol] 197 mg/rRRezt05 - 110 mg/dLCleveland Clinic Marymount Hospital, MOInterpretation and review of laboratory resultsAbBlanchard Valley Health System, MYRQYL-CzG-69 Abon 08-01-2020 SARS-CoV-19 Ab, TotNegativeNormalNEGMercy Monetta Medical CenterComment on above:Result Comment: Negative results [...] authorized laboratories. Fact sheet for Healthcare Providers: https://www.fda.gov/media/627769/download Fact sheet for Patients: https://www.fda.gov/media/066580/download METHODOLOGY: ECIAPerformed By: #### ATRAZO #### [facility] [address] [place] [address] [phone] Cyber Ops Planner: Kodak Akbar MD #### CMPX, EDTOX, LIP, CDP #### [place] [phone] Cyber Ops Planner: RANDALL ModiCoV-2on 30-36-4885VSLK-CoV-2NOhioHealth Nelsonville Health CenterComment on above:Performed By: #### ATRAZO #### [facility] [address] [place] [address] Cyber Ops Planner: Kodak Akbar MD #### CMPX, EDTOX, LIP, CDP #### [place] [phone] Cyber Ops Planner: RANDALL ModiCoV-2,RapidNot DetectedNormalNOTDETMercy San Gabriel Valley Medical CenterComment on above:Result Comment: Rapid [...] management decisions. Fact sheet for Healthcare Providers: https://www.fda.gov/media/757364/download Fact sheet for Patients: https://www.fda.gov/media/283839/download Methodology: Isothermal Nucleic Acid AmplificationPerformed By: #### ATRAZO #### [facility] [address] [place] [address] Cyber Ops Planner: Kodak Akbar MD #### FELICIA BUNN LIP, CDP #### [facility] [address] [place] [address] Cyber Ops Planner: WILLIAM ModiARS-CoV-2 Source.NASOPHARYNGEAL SWABNormalKettering Health TroyComment on above:Performed By: #### ATRAZO #### [facility] [address] [place] [address] Cyber Ops Planner: Kodak Akbar MD #### FELICIA BUNN LIP, CDP #### [facility] [address] [place] [address] Cyber Ops Planner: Ahmet Modi [id number] (P) [Mass/Vol]34 umol/DCchmqj70-00Iaskd Health- [place], KYComment on above:Performed By: #### ATRAZO #### [facility] [address] [place], [place] [phone] Cyber Ops Planner: Kodak Akbar MD #### FELICIA BUNN LIP, CDP #### [facility] [address] [place] [address] Cyber Ops Planner: Frank Otero [facility] Hospitalrosaura 17-35-2578Pnyzxenbmks in LDL [Mass/Vol]78 mg/dL<100[place], KYCholesterol [Mass/Vol]139 mg/dL<200 [facility]- [place], KYComment on above: Cholesterol Guidelines: <200 Desirable 200-240 Borderline >240 Undesirable Cholesterol in HDL [Mass/Vol]20 mg/dLLow>40[facility]- [place], KYComment on above: HDL Guidelines: <40 Undesirable 40-59 Borderline >59 Desirable Cholesterol in LDL [Mass/Vol]0 - 130 mg/dLSouthwest General Health Center Health- [place], KYComment on above: Calculation not valid for Triglyceride value greater than 400 mg/dL. Direct LDL reflexed LDL Guidelines: <100 Desirable 100-129 Near to/above Desirable 130-159 Borderline >159 Undesirable Direct (measured) LDL and calculated LDL are not interchangeable tests. Triglyceride [Mass/Vol]406 mg/dLHigh<150[facility]- [place], KYComment on above: Triglyceride Guidelines: <150 Desirable 150-199 Borderline 200-499 High >499 Very high Based on AHA Guidelines for fasting triglyceride, July 2012. EKG 12 Leadon 27-40-0754Uselbr Ofvr34TGLHuehi Health- [place], KYAtrial Wmsa82IYJ [facility]- [place], KYAtrial Rxkt61MTAFsayv Health- [place], KYP Hzez98nqpdkvbJlgpl Health- [place], KYP Tntw00ckilzjfAfsmb Health- [place], KYP Gmev34evskdlaFggsh Health- [place], KYP-R Vnwbucxy875 msMercy Health- [place], KYP-R Szqfwvej504 msMercy [facility]- [place], KYP-R Tplxbjyj328 msMercy [facility]- [place], KYQ-T Ydjxlohf804 msMercy [facility]- [place], KYQ- T Cnxegfxe583 msMercy [facility]- [place], KYQ-T Emcpuczw107 msMercy [facility]- [place], KYQRS Srohnumj59 msMercy [facility]- [place], KYQTc Calculation ()454 msMercy [facility]- [place], KYQTc Calculation ()481 msMercy Health- [place], KYQTc Calculation ()421 msMercy [facility]- [place], KYR Pphk75dshlhguZaglh Health- [place], KYR Fnum81pyeoefgUgufc Health- [place], [place]YR Axvn74hyqunzaZroos Health- [place], KYT Evwg66yvwhffwWcwjs Health- [place], KYT Plbi39xrhcvzwGqwcm Health- [place], KYT Qgbe54zgyuaqzBrvpu Health- [place], [place] Ventricular Luqx84KGMDkeib Health- [place], KYVentricular Yzsb95OHANahlj Health- [place], KYVentricular Fmko12RWOFevww Health- [place], KYEdi, Mhpn Incoming Ekg Results From [employer] - 07/31/2020 11:14 AM EDT Normal sinus rhythm Normal ECG When compared with ECG of 30-JUL-2020 13:41, Premature ventricular complexes are no longer PresentMer Health- [place], KYNormal sinus rhythm Normal ECG When compared with ECG of 30-JUL-2020 13:41, Premature ventricular complexes are no longer PresentMer Health- [place], KYEdi, Mhpn Incoming Ekg Results From [employer] - 07/31/2020 11:14 AM EDT Normal sinus rhythm Possible Left atrial enlargement Rightward axis Borderline ECG When compared with ECG of 30-JUL-2020 13:50, T wave amplitude has increased in Anterolateral leadsSouthwest General Health Center Health- [place], KYEdi, Mhpn Incoming Ekg Results From [employer] - 07/31/2020 11:14 AM EDT Sinus rhythm with frequent Premature ventricular complexes in a pattern of bigeminy Otherwise normal ECG When compared with ECG of 30-JUL-2020 13:35, Vent. rate has increased BY 29 BPM QT has lengthenedSouthwest General Health Center Health- [place], KYSinus rhythm with frequent Premature ventricular complexes in a pattern of bigeminy Otherwise normal ECG When compared with ECG of 30-JUL-2020 13:35, Vent. rate has increased BY 29 BPM QT has lengthenedSumma Health Barberton Campuscy Health- [place], KYNormal sinus rhythm Possible Left atrial enlargement Rightward axis Borderline ECG When compared with ECG of 30-JUL-2020 13:50, T wave amplitude has increased in Anterolateral leadsMer Health- [place], [place] Atrial Faeb58XATSmuov Health- [place], KYP Jebc45dlmnypkUbfno Health- [place], KYP-R Kfkkziox374 msMercy Health- [place], KYQ-T Kerrzqgp712 msMercy Health- [place], KYQRS Iawogspx062 msMercy Health- [place], KYQTc Calculation (Bazett)410 msMercy Health- [place], KYR Igtg75yolubmbLmwqo Health- [place], KYT Ughs94tdhtnkdKdiyh Health- [place], [place] Ventricular Qlal46KTHDmrnc Health- [place], KYEdi, Mhpn Incoming Ekg Results From [employer] - 07/31/2020 11:14 AM EDT Sinus bradycardia with frequent Premature ventricular complexes Otherwise normal ECG No previous ECGs availableCleveland Clinic Marymount Hospital, MOSinus bradycardia with frequent Premature ventricular complexes Otherwise normal ECG No previous ECGs available [facility], MOHEMOGLOBIN A1Con 49-05-7184Uajhdnn [Mass/Vol]209 mg/dLCleveland Clinic Marymount Hospital, MOComment on above:The ADA and AACC recommend providing the estimated average glucose result to permit better patient understanding of their HBA1c result. HbA1c (Bld) [Mass fraction]8.9 %High4 - 6 %[facility], MOInterpretation and review of laboratory resultsAbnormRiverside Methodist Hospital, MOHEPATIC FUNCTION PANELon 32-19-3138Yguyunu [Mass/Vol]4 g/dL3.5 - 5.2 g/dLCleveland Clinic Marymount Hospital, [place] Albumin/Globulin [Mass ratio]2.1 {ratio}[facility], MOALP [Catalytic activity/Vol]39 U/LLow40 - 129 U/LMKindred Healthcare, MOALT [Catalytic activity/Vol]18 U/L5 - 41 U/LMKindred Healthcare, KYAST [Catalytic activity/Vol]15 U/L<40[facility], MOBilirubin Ql (U)0.52 mg/dL0.3 - 1.2 mg/dLCleveland Clinic Marymount Hospital, MOBilirubin, Indirect0.39 mg/dL0 - 1 mg/dLCleveland Clinic Mary[facility] Hospital, [place] Bilirubin.direct [Mass/Vol]0.13 mg/dL<0.31[facility], MOGlobulin (S) [Mass/Vol]NOT REPORTED1.5 - 3.8 g/dLCleveland Clinic Marymount Hospital, MOInterpretation and review of laboratory resultsAbnoCincinnati VA Medical Center, MOProtein [Mass/Vol]5.9 g/dLLow6.4 - 8.3 g/dLCleveland Clinic Mary[facility] Hospital, MOHemoglobin A1Con 58-28-1661KvP4c (Bld) [Mass fraction]209 mg/dLNoTriHealth Bethesda North HospitalComment on above: Result Comment: The ADA and AACC recommend providing the estimated average glucose result to permit better patient understanding of their HBA1c result.Performed By: #### ATRAZO #### [facility] [address] [place] [address] Cyber Ops Planner: Kodak Akbar MD #### CMPX, EDTOX, LIP, CDP #### [facility] [address] [place] [address] [phone] Cyber Ops Planner: Frank Otero MDHbA1c (Bld) [Mass fraction]8.9 %High4.0-6.0K[facility]tering Health TroyComment on above:Performed By: #### ATRAZO #### [facility] [address] [place] [address] Cyber Ops Planner: Kodak Akbar MD #### CMPX, EDTOX, LIP, CDP #### [facility] [address] [place] [address] [phone] Cyber Ops Planner: Frank Otero MDLDL Chol, Directon 47-10-3843URP Chol, Idpibp20 mg/dLNormal<100[facility] Health TroyComment on above:Performed By: #### ATRAZO #### [facility] [address] [place] [address] Cyber Ops Planner: Kodak Akbar MD #### CMPX, EDTOX, LIP, CDP #### [address] [phone] Cyber Ops Planner: Frank Otero MDLipid Profileon 05-60-9117Ikouqbnobbc in LDL [Mass/Vol]Normal0-130[facility] Health TroyComment on above:Result Comment: Calculation not valid for Triglyceride value greater than 400 mg/dL. Direct LDL reflexed LDL Guidelines: <100 Desirable 100-129 Near to/above Desirable 130-159 Borderline >159 Undesirable Direct (measured) LDL and calculated LDL are not interchangeable tests.Performed By: #### TSHX, LIPR, GLYHGB, MISCR, LDLDIR #### [facility] [address] [place] [address] [phone] Cyber Ops Planner: EDNA Modiholesterol [Mass/Vol]139 mg/dLNormal<200[facility] TroyComment on above:Result Comment: Cholesterol Guidelines: <200 Desirable 200-240 Borderline >240 UndesirablePerformed By: #### TSHX, LIPR, GLYHGB, MISCR, LDLDIR #### [address] [phone] Cyber Ops Planner: EDNA Modiholesterol in HDL [Mass/Vol]20 mg/dLLow>40[facility] TroyComment on above:Result Comment: HDL Guidelines: <40 Undesirable 40-59 Borderline >59 DesirablePerformed By: #### TSHX, LIPR, GLYHGB, MISCR, LDLDIR #### [address] [address] Cyber Ops Planner: Dodie Modi.total/Cholesterol in HDL [Mass ratio]7.0 {ratio}High<5[facility] TroyComment on above: Performed By: #### TSHX, LIPR, GLYHGB, MISCR, LDLDIR #### [employer] [address] [place] [address] Cyber Ops Planner: Frank Otero MDTriglyceride [Mass/Vol]406 mg/dLHigh<150[facility] TroyComment on above:Result Comment: Triglyceride Guidelines: <150 Desirable 150-199 Borderline 200-499 High >499 Very high Based on AHA Guidelines for fasting triglyceride, July 2012.Performed By: #### TSHX, LIPR, GLYHGB, MISCR, LDLDIR #### [employer] [facility] [address] [place] [address] [phone] Cyber Ops Planner: EDNA Modiholesterol in VLDL [Mass/Vol]NOT REPORTEDNormal 1-30[facility] TroyComment on above:Performed By: #### TSHX, LIPR, GLYHGB, MISCR, LDLDIR #### [employer] [address] [place] [address] Cyber Ops Planner: Frank Otero MDLiver Profileon 75-79-5805Kfxsyoi [Mass/Vol]4.0 g/dLNormal3.5-5.2[facility] Medical CenterComment on above:Performed By: #### ATRAZO #### [facility] [address] [place] [address] Cyber Ops Planner: Kodak Akbar MD #### CMPX, EDTOX, LIP, CDP #### [facility] [address] [place] [address] Cyber Ops Planner: Frank Otero MDAlbumin/Globulin [Mass ratio]2.1 {ratio}Normal 1.0-2.5[facility] Health TroyComment on above:Performed By: #### ATRAZO #### [facility] [address] [place] [address] Cyber Ops Planner: Kodak Akbar MD #### CMPX, EDTOX, LIP, CDP #### [facility] [address] [place] [address] Cyber Ops Planner: Fernando Modiline Phos39 U/CAmk55-993Rtmcc [facility] Valley Medical CenterComment on above:Performed By: #### ATRAZO #### [facility] [address] [place] [address] Cyber Ops Planner: Kodak Akbar MD #### CMPX, EDTOX, LIP, CDP #### [facility] [address] [place] [address] Cyber Ops Planner: Frank Otero MDALT [Catalytic activity/Vol]18 U/LNormal5-41 [facility] TroyComment on above:Performed By: #### ATRAZO #### [facility] [address] [place] [address] Cyber Ops Planner: Kodak Akbar MD #### CMPX, EDTOX, LIP, CDP #### [facility] [address] [place] [address] Cyber Ops Planner: Frank Otero MDAST [Catalytic activity/Vol]15 U/LNormal<40[facility] TroyComment on above:Performed By: #### ATRAZO #### [facility] [address] [place] [address] Cyber Ops Planner: Kodak Akabr MD #### CMPX, EDTOX, LIP, CDP #### [facility] [address] [place] [address] Cyber Ops Planner: Frank Otero MDBilirubin Ql (U)0.52 mg/dLNormal0.3-1.2MSelma Community HospitalComment on above:Performed By: #### ATRAZO #### [facility] [address] [place] [address]99 Cyber Ops Planner: Kodak Akbar MD #### CMPX, EDTOX, LIP, CDP #### [address] [address] Cyber Ops Planner: Frank Otero MDBilirubin, Indirect0.39 mg/dLNormal0.00-1.00 [facility] TroyComment on above:Performed By: #### ATRAZO #### [facility] [address] [place] [address] [phone] Cyber Ops Planner: Kodak Akbar MD #### CMPX, EDTOX, LIP, CDP #### [address] [address] Cyber Ops Planner: Frank Otero MDBilirubin.direct [Mass/Vol]0.13 mg/dLNormal<0.31 [facility] TroyComment on above:Performed By: #### ATRAZO #### [facility] [address] [place] [address] Cyber Ops Planner: Kodak Akbar MD #### CMPX, EDTOX, LIP, CDP #### [facility] [address] [place] [address] Cyber Ops Planner: MILAGROS Modirotein [Mass/Vol]5.9 g/dLLow6.4-8.3MSelma Community HospitalComment on above:Performed By: #### ATRAZO #### [facility] [address] [place] [address] Cyber Ops Planner: Kodak Akbar MD #### CMPX, EDTOX, LIP, CDP #### [facility] [address] [place] [address] [phone] Cyber Ops Planner: Frank Otero MDGlobulin (S) [Mass/Vol]NOT REPORTEDNormal1.5-3.8 [facility] TroyComment on above:Performed By: #### ATRAZO #### [facility] [address] [place] [address] Cyber Ops Planner: Kodak Akbar MD #### CMPX, EDTOX, LIP, CDP #### [address] [phone] Cyber Ops Planner: Catherine Modi [facility]len[facility] Hospitalon [id number] NameKAYENTA HEALTH CENTER [id number] Flagstaff Medical CenteralKettering Health TroyComment on above:Performed By: #### ATRAZO #### [facility] [address] [place] [address] [phone] Cyber Ops Planner: Kodak Akbar MD #### CMPX, EDTOX, LIP, CDP #### [address] [phone] Cyber Ops Planner: Frank Otero MDOtherrosaura [phone] Yylf73RASNnfji Health- [place], [place] Evdt51xjoldqwLuhgz Health- [place], [place]-R Asdswhmp344 [facility]- [place], [place] Q-T Jkzhpnfw579 [facility]- [place], KYQRS Zmhtbpdm396 [facility], KYQTc Calculation ()406 msMCity Hospital [place], KYR Zewn26tfhlmpuNtosy Health- [place], KYT Eggk52dpwfadyTpqleVeterans Health Administration, KYVentricular Uchd14MNNNqyulKindred Healthcare, [place] Sergey, Mhpn Incoming Ekg Results From [place] - 07/31/2020 11:14 AM EDT Normal sinus rhythm Normal ECG When compared with ECG of 30-JUL-2020 13:50, No significant change was foundCleveland Clinic Marymount Hospital, KYNormal sinus rhythm Normal ECG When compared with ECG of 30-JUL-2020 13:50, No significant change was found [facility], KYCholesterol in VLDL [Mass/Vol]NOT REPORTED1 - 30 mg/dLCleveland Clinic [facility] Hospital, MOCholesterol.total/Cholesterol in HDL [Mass ratio]7 {ratio}High<5 [facility], MOInterpretation and review of laboratory resultsAbBlanchard Valley Health System, MOPO Glucose Fingerstickon 71-64-9076Yojxamv [Mass/Vol]239 mg/dL High75 - 110 mg/dLCleveland Clinic [facility] Hospital, MOInterpretation and review of laboratory resultsAbBlanchard Valley Health System, MOGlucose [Mass/Vol]213 mg/nDZzxr79 - 110 mg/dL [facility], MOInterpretation and review of laboratory resultsAbBlanchard Valley Health System, MOGlucose [Mass/Vol]190 mg/nGJsat80 - 110 mg/dLCleveland Clinic [facility], [place] Interpretation and review of laboratory resultsAbBlanchard Valley Health System, [place] Glucose [Mass/Vol]160 mg/jTYosb19 - 110 mg/dLCleveland Clinic [facility], MOInterpretation and review of laboratory resultsAbBlanchard Valley Health System, MOTS w/reflex to FT4 on 54-32-1482YDU Qn4.89 m[IU]/LNormal0.30-5.00[facility] Comment on above:Performed By: #### TSHX, LIPR, GLYHGB, MISCR, LDLDIR #### [facility] [address] [place] [address] Cyber Ops Planner: Frank Otero MDThyroidon 67-74-1306BMO Qn4.89 m[IU]/LMercRetreat Doctors' Hospital- [place], KYBlood Gason 17-97-3257Gfrnot saturation in Ibdot536 %High60 - 85 % [facility]- [place], KYCBC Auto Differentialon 15-77-1142Opssaofby (Bld) [#/Vol] 0.08 10*3/[facility]- [place], KYBasophils/100 WBC (Bld)1 %0 - 2 %[facility] [place], KYDifferential TypeNOT REPORTEDWilson Street Hospital- [place], KYEosinophils (Bld) [#/Vol] 0.07 10*3/[facility]- [place], KYEosinophils/100 WBC (Bld)1 %1 - 4 %[facility]- [place], KYErythrocyte distribution width (RBC) [Ratio]12.6 %11.8 - 14.4 %[facility]- [place], KYHematocrit (Bld) [Volume fraction]53.6 %High40.7 - 50.3 %[facility]- [place], KYHemoglobin (Bld) [Mass/Vol]19.2 g/nKPzac85 - 17 g/dLDelaware County Hospital [place], KYImmature granulocytes (Bld) [#/Vol]0.08 10*3/[facility]- [place], [place] Immature granulocytes (Bld) [#/Vol]1 %Vdbr7JovbpDelaware County Hospital [place], KYInterpretation and review of laboratory resultsAbnormAdena Health System [place], KYLymphocytes (Bld) [#/Vol]4.09 10*3/[facility]- [place], KYLymphocytes/100 WBC (Bld)43 %25 - 45 % [facility]- [place], KYMCH (RBC) [Entitic mass]31.8 pg25.2 - 33.[address]- [place], KYMCHC (RBC) [Mass/Vol]35.8 g/pZExlp62.4 - 34.8 g/dLWilson Street Hospital- [place], KYMCV (RBC) [Entitic vol]88.7 fL82.6 - 102.[address]- [place], KYMonocytes (Bld) [#/Vol]0.67 10*3/[facility], KYMonocytes/100 WBC (Bld)7 %2 - 8 %[facility], KYPlatelet mean volume (Bld) [Entitic vol]10.9 fL8.1 - 13.5 fLCleveland Clinic [facility], KYPlatelets (Bld) [#/Vol]NOT REPORTEDC[facility] Clinic [facility], KYPlatelets (Bld) [#/Vol]226 10*3/uLC[facility] Clinic [facility], KYRBC (Bld) [#/Vol]6.04 10*6/uLHigh 4.21 - 5.77 m/uLC[facility] Clinic [facility], MORBC morphology finding Nom (Bld)NOT REPORTED [facility], MOSegmented neutrophils/100 WBC (Bld)47 %34 - 64 %[facility], DENITASegs Absolute4.47[facility], KYWBC (Bld) [#/Vol]0.0 10*3/uL 0.0 per 100 WBCCleveland Clinic Marymount Hospital, MOWBC (Bld) [#/Vol]9.5 10*3/[facility], KYWBC MorphologyNOT REPORTEDCleveland Clinic [facility], MOCBC with Diffon [id number]. Basophil0.08 k/uLNormal0.00-0.20[facility] TroyComment on above:Performed By: #### ATRAZO #### [facility] [address] [place] [address] Cyber Ops Planner: Kodak Akbar MD #### CMPX, EDTOX, LIP, CDP #### [facility] [address] [place], [place] [phone] Cyber Ops Planner: Luis Enrique Modi.Imm.Granulocyte0.08 k/uLNormal0.00-0.30[facility] TroyComment on above:Performed By: #### ATRAZO #### [facility] [address] [place] [address] Cyber Ops Planner: Kodak Akbar MD #### CMPX, EDTOX, LIP, CDP #### [facility] [address] [place] [address] Cyber Ops Planner: Luis Enrique Modi.Neutrophil (Seg)4.47 k/uLNormal1.80-8.00 [facility] TroyComment on above:Performed By: #### ATRAZO #### [facility] [address] [place] [address] Cyber Ops Planner: Kodak Akbar MD #### CMPX, EDTOX, LIP, CDP #### [address] [address] Cyber Ops Planner: Frank Otero MDBasophils/100 WBC (Bld)1 %Normal0-2MSelma Community HospitalComment on above:Performed By: #### ATRAZO #### [facility] [address] [place] [address] Cyber Ops Planner: Kodak Akbar MD #### CMPX, EDTOX, LIP, CDP #### [address] [address] Cyber Ops Planner: Frank Otero MDEosinophils (Bld) [#/Vol]0.07 10*3/uLNormal 0.00-0.44[facility] TroyComment on above:Performed By: #### ATRAZO #### [facility] [address] [place] [address] Cyber Ops Planner: Kodak Akbar MD #### CMPX, EDTOX, LIP, CDP #### [facility] [address] [place] [address] Cyber Ops Planner: Frank Otero MDEosinophils/100 WBC (Bld)1 %Normal1-4[facility] TroyComment on above:Performed By: #### ATRAZO #### [facility] [address] [place] [address] Cyber Ops Planner: Kodak Akbar MD #### CMPX, EDTOX, LIP, CDP #### [place] [phone] Cyber Ops Planner: Frank Otero MDErythrocyte distribution width (RBC) [Ratio]12.6 %Gxlyeg94.8-14.4[facility] TroyComment on above:Performed By: #### ATRAZO #### [facility] [address] [place] [address] Cyber Ops Planner: Kodak Akbar MD #### CMPX, EDTOX, LIP, CDP #### [place] [address] Cyber Ops Planner: Frank Otero MDHematocrit (Bld) [Volume fraction]53.6 %High 40.7-50.3[facility] Medical CenterComment on above:Performed By: #### ATRAZO #### [facility] [address] [place] [address]687 Cyber Ops Planner: Kodak Akbar MD #### CMPX, EDTOX, LIP, CDP #### [place] [phone] Cyber Ops Planner: Frank Otero MDHemoglobin (Bld) [Mass/Vol]19.2 g/dLHigh 13.0-17.0[facility]tering Health TroyComment on above:Performed By: #### ATRAZO #### [facility] [address] [place] [address] Cyber Ops Planner: Kodak Akbar MD #### CMPX, EDTOX, LIP, CDP #### [place] [phone] Cyber Ops Planner: Frank Otero MDImmature granulocytes (Bld) [#/Vol]1 %Nzko1CchhlKettering Health TroyComment on above:Performed By: #### ATRAZO #### [facility] [address] [place] [address] Cyber Ops Planner: Kodak Akbar MD #### CMPX, EDTOX, LIP, CDP #### [address] [phone] Cyber Ops Planner: Frank Otero MDLymphocytes (Bld) [#/Vol]4.09 10*3/uLNormal 1.20-5.20[facility] TroyComment on above:Performed By: #### ATRAZO #### [facility] [address] [place] [address] Cyber Ops Planner: Kodak Akbar MD #### CMPX, EDTOX, LIP, CDP #### [address] [phone] Cyber Ops Planner: Frank Otero MDLymphocytes/100 WBC (Bld)43 %Xyfhnz40-72SdjpiKettering Health TroyComment on above:Performed By: #### ATRAZO #### [facility] [address] [place] [address] Cyber Ops Planner: Kodak Akbar MD #### CMPX, EDTOX, LIP, CDP #### [address] [phone] Cyber Ops Planner: BHANU ModiCH (RBC) [Entitic mass]31.8 xfMwrerr77.2-33.5 [facility] TroyComment on above:Performed By: #### ATRAZO #### [facility] [address] [place] [address] Cyber Ops Planner: Kodak Akbar MD #### CMPX, EDTOX, LIP, CDP #### [address] [phone] Cyber Ops Planner: BAHNU ModiCHC (RBC) [Mass/Vol]35.8 g/jDQxsd08.4-34.8[facility] TroyComment on above:Performed By: #### ATRAZO #### [facility] [address] [place] [address] Cyber Ops Planner: Kodak Akbar MD #### CMPX, EDTOX, LIP, CDP #### [address] [address] Cyber Ops Planner: BHANU ModiCV (RBC) [Entitic vol]88.7 wASorvrx25.6-102.9 [facility] TroyComment on above:Performed By: #### ATRAZO #### [facility] [address] [place] [address] Cyber Ops Planner: Kodak Akbar MD #### CMPX, EDTOX, LIP, CDP #### [address] [address] Cyber Ops Planner: BHANU Modionocytes (Bld) [#/Vol]0.67 10*3/uLNormal 0.10-1.40[facility] TroyComment on above:Performed By: #### ATRAZO #### [facility] [address] [place] [address] Cyber Ops Planner: Kodak Akbar MD #### CMPX, EDTOX, LIP, CDP #### [address] [address] Cyber Ops Planner: BHANU Modionocytes/100 WBC (Bld)7 %Normal2-8[facility] Health TroyComment on above:Performed By: #### ATRAZO #### [facility] [address] [place] [address] Cyber Ops Planner: Kodak Akbar MD #### CMPX, EDTOX, LIP, CDP #### [address] [address] Cyber Ops Planner: Frank Madoff, MDNeutrophil (Seg)47 %Gtpemf96-83AisxtKettering Health TroyComment on above:Performed By: #### ATRAZO #### [facility] [address] [place] [address] Cyber Ops Planner: Kodak Akbar MD #### CMPX, EDTOX, LIP, CDP #### [address] [address] Cyber Ops Planner: Frank Otero MDNRBC Automated0.0 per 100 WBCNormal0.0[facility] TroyComment on above:Performed By: #### ATRAZO #### [facility] [address] [place] [address] Cyber Ops Planner: Kodak Akbar MD #### CMPX, EDTOX, LIP, CDP #### [place] [address] Cyber Ops Planner: Viki Modi mean volume (Bld) [Entitic vol]10.9 fL Normal8.1-13.5[facility] TroyComment on above:Performed By: #### ATRAZO #### [facility] [address] [place] [address] Cyber Ops Planner: Kodak Akbar MD #### CMPX, EDTOX, LIP, CDP #### [place] [address] Cyber Ops Planner: Irvin Modi (Bld) [#/Vol]226 10*3/kPDntrvq865-028 [facility] TroyComment on above:Performed By: #### ATRAZO #### [facility] [address] [place] [address] Cyber Ops Planner: Kodak Akbar MD #### CMPX, EDTOX, LIP, CDP #### [address] [address] Cyber Ops Planner: LACY Modi (Bld) [#/Vol]6.04 10*6/uLHigh4.21-5.77[facility] TroyComment on above:Performed By: #### ATRAZO #### [facility] [address] [place] [address] Cyber Ops Planner: Kodak Akbar MD #### CMPX, EDTOX, LIP, CDP #### [facility] [address] [place] [address] Cyber Ops Planner: Frank Otero MDINTERFAITH MEDICAL [facility] (Bld) [#/Vol]9.5 10*3/uLNormal4.5-13.5[facility] TroyComment on above:Performed By: #### ATRAZO #### [facility] [address] [place] [address] Cyber Ops Planner: Kodak Akbar MD #### CMPX, EDTOX, LIP, CDP #### [facility] [address] [place] [address] Cyber Ops Planner: Kay Modi PerformedNOT REPORTEDNoTriHealth Bethesda North HospitalComment on above:Performed By: #### ATRAZO #### [facility] [address] [place] [address] Cyber Ops Planner: Kodak Akbar MD #### CMPX, EDTOX, LIP, CDP #### [facility] [address] [place] [address] Cyber Ops Planner: Irvin Modi (Bld) [#/Vol]NOT REPORTEDSheltering Arms HospitalComment on above:Performed By: #### ATRAZO #### [facility] [address] [place] [address] Cyber Ops Planner: Kodak Akbar MD #### CMPX, EDTOX, LIP, CDP #### [facility] [address] [place] [address] [phone] Cyber Ops Planner: EVAN Modi morphology finding Nom (Bld)NOT REPORTED [facility] HospitalComment on above:Performed By: #### ATRAZO #### [facility] [address] [place] [address] Cyber Ops Planner: Kodak Akbar MD #### CMPX, EDTOX, LIP, CDP #### [facility] [address] [place] [address] [phone] Cyber Ops Planner: Frank Otero MDW MorphologyNOT REPORTEDNormalKettering Health TroyComment on above:Performed By: #### ATRAZO #### [facility] [address] [place] [address] Cyber Ops Planner: Kodak Akbar MD #### CMPX, EDTOX, LIP, CDP #### [facility] [address] [place] [address] [phone] Cyber Ops Planner: EDNA Modisalt lake [facility] Metabolic Pr/rfx MGon 15-15-0736BNM [Catalytic activity/Vol]20 U/LNormal<40[facility] Health TroyComment on above:Performed By: #### ATRAZO #### [facility] [address] [place] [address] Cyber Ops Planner: Kodak Akbar MD #### CMPX, EDTOX, LIP, CDP #### [facility] [address] [place] [address] [phone] Cyber Ops Planner: Frank Otero MD(cont.)[facility] Comment on above:Result Comment: Average GFR for <20 years old not available. Chronic Kidney Disease: <60 mL/min/1.73sq m Kidney failure: <15 mL/min/1.73sq m eGFR calculated using average adult body mass. Additional eGFR calculator available at: http://www.EMOSpeech.com/multiple_crcl_2012.htmPerformed By: #### ATRAZO #### [facility] [address] [place] [address] Cyber Ops Planner: Kodak Akbar MD #### CMPX, EDTOX, LIP, CDP #### [address] [address] Cyber Ops Planner: Frank Otero MDAlbumin [Mass/Vol]4.8 g/dLNormal3.5-5.2Muc [facility]y [facility] CenterComment on above:Performed By: #### ATRAZO #### [facility] [address] [place] [address] Cyber Ops Planner: Kodak Akbar MD #### CMPX, EDTOX, LIP, CDP #### [address] [phone] Cyber Ops Planner: Frank Otero MDAlbumin/Globulin [Mass ratio]1.9 {ratio}Normal 1.0-2.5[facility] Health TroyComment on above:Performed By: #### ATRAZO #### [facility] [address] [place] [address] Cyber Ops Planner: Kodak Akbar MD #### CMPKatalina, EDTOX, LIP, CDP #### [address] [phone] Cyber Ops Planner: Kaylen Modi Phos49 U/KYhruyc29-497YgkblKettering Health TroyComment on above:Performed By: #### ATRAZO #### [facility] [address] [place] [address] Cyber Ops Planner: Kodak Akbar MD #### CMPX, EDTOX, LIP, CDP #### [address] [phone] Cyber Ops Planner: Frank Otero MDALT [Catalytic activity/Vol]24 U/LNormal5-41 [facility] TroyComment on above:Performed By: #### ATRAZO #### [facility] [address] [place] [address] Cyber Ops Planner: Kodak Akbar MD #### CMPX, EDTOKatalina, LIP, CDP #### [address] [address] Cyber Ops Planner: Frank Otero MDAnion gap [Moles/Vol]13 mmol/LNormal9-17[facility] TroyComment on above:Performed By: #### ATRAZO #### [facility] [address] [place] [address] Cyber Ops Planner: Kodak Akbar MD #### CMPX, FELICIA, LIP, CDP #### [address] [phone] Cyber Ops Planner: Frank Otero MDBilirubin Ql (U)0.84 mg/dLNormal0.3-1.2MSelma Community HospitalComment on above:Performed By: #### ATRAZO #### [facility] [address] [place] [address] Cyber Ops Planner: Kodak Akbar MD #### SEPIDEH, FELICIA, LIP, CDP #### [address] [phone] Cyber Ops Planner: EDNA Modialcium [Mass/Vol]9.6 mg/dLNormal8.6-10.4[facility] TroyComment on above:Performed By: #### ATRAZO #### [facility] [address] [place] [address] Cyber Ops Planner: Kodak Akbar MD #### CMPX, EDTOKatalina, LIP, CDP #### [address] [phone] Cyber Ops Planner: EDNA Modihloride [Moles/Vol]105 mmol/URgkdym42-860PtetcKettering Health TroyComment on above:Performed By: #### ATRAZO #### [facility] [address] [place] [address] Cyber Ops Planner: Kodak Akbar MD #### CMPX, EDTOX, LIP, CDP #### [address] [address] Cyber Ops Planner: EDNA ModiO2 [Moles/Vol]21 mmol/LOwrhvq88-15ZcfyyKettering Health TroyComment on above:Performed By: #### ATRAZO #### [facility] [address] [place] [address] Cyber Ops Planner: Kodak Akbar MD #### CMPX, EDTOX, LIP, CDP #### [address] [address] Cyber Ops Planner: EDNA Modireatinine [Mass/Vol]0.91 mg/dLNormal0.70-1.20 [facility] TroyComment on above:Performed By: #### ATRAZO #### [facility] [address] [place] [address] Cyber Ops Planner: Kodak Akbar MD #### CMPX, EDTOX, LIP, CDP #### [address] [address] Cyber Ops Planner: Frank Otero MDGFR,non AmerPediatric GFR requires additional information. Refer to NKDEP website forNormal>60[facility] TroyComment on above:Result Comment: calculator.Performed By: #### ATRAZO #### [facility] [address] [place] [address] Cyber Ops Planner: Kodak Akbar MD #### CMPX, EDTOX, LIP, CDP #### [address] [phone] Cyber Ops Planner: Frank Otero MDGlucose [Mass/Vol]198 mg/zENbmb28-97Efkoa [facility] CenterComment on above:Performed By: #### ATRAZO #### [facility] [address] [place] [address] Cyber Ops Planner: Kodak Akbar MD #### CMPX, EDTOX, LIP, CDP #### [address] [address] Cyber Ops Planner: MILAGROS Modiotassium [Moles/Vol]3.9 mmol/LNormal3.7-5.3 [facility] TroyComment on above:Performed By: #### ATRAZO #### [facility] [address] [place] [address] Cyber Ops Planner: Kodak Akbar MD #### CMPX, EDTOX, LIP, CDP #### [place] [address] Cyber Ops Planner: MILAGROS Modirotein [Mass/Vol]7.3 g/dLNormal6.4-8.3Muc [facility]y [facility] CenterComment on above:Performed By: #### ATRAZO #### [facility] [address] [place] [address] Cyber Ops Planner: Kodak Akbar MD #### CMPX, EDTOX, LIP, CDP #### [place] [address] Cyber Ops Planner: Frank Otero MDSodium [Moles/Vol]139 mmol/IAbjcer586-855SwksoKettering Health TroyComment on above:Performed By: #### ATRAZO #### [facility] [address] [place] [address] Cyber Ops Planner: Kodak Akbar MD #### CMPX, EDTOX, LIP, CDP #### [address] [address] Cyber Ops Planner: Frank Otero MDUrea nitrogen [Mass/Vol]13 mg/dLNormal6-20[facility] TroyComment on above:Performed By: #### ATRAZO #### [facility] [address] [place] [address] Cyber Ops Planner: Kodak Akbar MD #### CMPX, EDTOX, LIP, CDP #### [facility] [address] [place] [address] [phone] Cyber Ops Planner: LELIA Modi/LANEY Alfaro REPORTEDNormal9-20[facility] TroyComment on above:Performed By: #### ATRAZO #### [facility] [address] [place] [address] Cyber Ops Planner: Kodak Akbar MD #### CMPX, EDTOX, LIP, CDP #### [facility] [address] [place] [address] [phone] Cyber Ops Planner: RADHA Modi,Karol AmerNOT REPORTEDNormal>60[facility] TroyComment on above:Performed By: #### ATRAZO #### [facility] [address] [place] [address] Cyber Ops Planner: Kodak Akbar MD #### CMPX, EDTOX, LIP, CDP #### [facility] [address] [place] [address] [phone] Cyber Ops Planner: WILLIAM Moditaging:NOT REPORTEDNormalMerSt. John's Regional Medical CenterComment on above:Performed By: #### ATRAZO #### [facility] [address] [place] [address] Cyber Ops Planner: Kodak Akbar MD #### CMPX, EDTOX, LIP, CDP #### [facility] [address] [place] [address] Cyber Ops Planner: Santos Modi 51-25-3974Jqqymbd [Mass/Vol]mg/dL<10 mg/dLCleveland Clinic Marymount Hospital, KYDrug Scr, Abuse, Uron 84-78-1375Cbkmkapysly(s),Ur NegativeNormalNEGMercy [facility] Medical CenterComment on above:Result Comment: (Positive cutoff 1000 ng/mL)Performed By: #### BRANDIN #### [facility] [address] [place] [address] Cyber Ops Planner: Frank Otero MDBarbiturate(s),UrNegativeNormalNEGKettering Health TroyComment on above:Result Comment: (Positive cutoff 200 ng/mL)Performed By: #### BRANDIN #### [address] [address] Cyber Ops Planner: Frank Otero MDBase excess Calc (Bld) [Moles/Vol]NegativeNormal NEGKettering Health TroyComment on above:Result Comment: (Positive cutoff 300 ng/mL)Performed By: #### BRANDIN #### [facility] [address] [place] [address] Cyber Ops Planner: Frank Otero MDBenzodiazepine(s)NegativeNormalNEGKettering Health TroyComment on above:Result Comment: (Positive cutoff 200 ng/mL)Performed By: #### BRANDIN #### [facility] [address] [place] [address] Cyber Ops Planner: EDNA Modiannabinoid(s),UrNegativeNormalNEGMerSt. John's Regional Medical CenterComment on above:Result Comment: (Positive cutoff 50 ng/mL)Performed By: #### BRANDIN #### [address] [address] Cyber Ops Planner: Frank Otero MDInterpretive InfoAssay provides medical screening only. The absence of expected drug(s) and/orNormalMercy San [facility] Valley Medical CenterComment on above:Result Comment: metabolite(s) may indicate diluted or adulterated urine, limitations of testing or timing of collection. Testing for legal purposes should be confirmed by another method. To request confirmation of test result, please call the lab within 7 days of sample submission.Performed By: #### BRANDIN #### [address] [address] Cyber Ops Planner: BHANU Modiethadone Ql (U)NegativeNormalNEGMerSt. John's Regional Medical CenterComment on above:Result Comment: (Positive cutoff 300 ng/mL)Performed By: #### BRANDIN #### [address] [address] Cyber Ops Planner: Frank Otero MDOpiate(s), UrNegativeNormalNEGMerSt. John's Regional Medical CenterComment on above:Result Comment: (Positive cutoff 300 ng/mL)Performed By: #### BRANDIN #### [address] [address] Cyber Ops Planner: Frank Otero MDOxycodone, UrineNegativeNormalNEGKettering Health TroyComment on above:Result Comment: (Positive cutoff 100 ng/mL)Performed By: #### BRANDIN #### [address] [address] Cyber Ops Planner: MILAGROS Modihencyclidine, UrNegativeNormalNEGMerSt. John's Regional Medical CenterComment on above:Result Comment: (Positive cutoff 25 ng/mL)Performed By: #### BRANDIN #### [address] [address] Cyber Ops Planner: Frank Otero MDBuprenorphrine, UrNOT REPORTEDNormalNEGMercy [facility] Medical CenterComment on above:Performed By: #### BRANDIN #### [address] [address] Cyber Ops Planner: BHANU ModiDMA, UrineNOT REPORTEDNormalNEGMerSt. John's Regional Medical CenterComment on above:Performed By: #### BRANDIN #### [address] [place] [address] Cyber Ops Planner: BHANU Mdoiethamphetamine, UrNOT REPORTEDNormalNEGKettering Health TroyComment on above:Performed By: #### BRANDIN #### [facility] [address] [place] [address] Cyber Ops Planner: Frank Otero MDPropoxyphene,UrineNOT REPORTEDNormalNEGMerSt. John's Regional Medical CenterComment on above:Performed By: #### BRANDIN #### [facility] [address] [place] [address] Cyber Ops Planner: Frank Otero MDTricyclic antidepressants Screen Ql (U)NOT REPORTEDNormalNEGKettering Health TroyComment on above:Performed By: #### BRANDIN #### [address] [address] Cyber Ops Planner: Frank Otero MDHematologyon 62-29-3529tVHC Coag (Bld) [Time]NOT REPORTEDCleveland Clinic Marymount Hospital, KYHematocrit (Bld) [Volume fraction]56 %High41 - 53 % [facility]- [place], KYHemoglobin (Bld) [Mass/Vol]19.1 g/mZDerc04.5 - 17.5 g/dL [facility]- [place], KYLactic Acid,Whole Blon 34-96-7888Gbgmxt Acid,Whole Bl1.0 mmol/LNormal0.7-2.1MSelma Community HospitalComment on above:Performed By: #### LACWB #### [facility] [address] [place] [address] Cyber Ops Planner: Frank Otero MDLipaseon 15-73-9560Znvxwb [Catalytic activity/Vol]36 U/XSdsoem41-61IegbjKettering Health TroyComment on above: Performed By: #### ATRAZO #### [facility] [address] [address] Cyber Ops Planner: Kodak Akbar MD #### CMPX, EDTOX, LIP, CDP #### [employer] [employer] [address] [place] [phone] Cyber Ops Planner: BHANU Modietabolic Panelon 59-89-5335Ssjgxix [Mass/Vol] 4.8 g/dL3.5 - 5.2 g/dLMercy Health- [place], KYALP [Catalytic activity/Vol]49 U/L40 - 129 U/LMercy Health- [place], KYALT [Catalytic activity/Vol]24 U/L5 - 41 U/LMercy Health- [place], KYAnion gap [Moles/Vol]13 mmol/L9 - 17 mmol/LMercy Health- [place], KYAST [Catalytic activity/Vol]20 U/L<40[facility]- [place], KYCalcium [Mass/Vol]9.6 mg/dL8.6 - 10.4 mg/dLSouthwest General Health Center Health- [place], KYChloride [Moles/Vol]105 mmol/L98 - 107 mmol/LMercy Health- [place], KYCO2 [Moles/Vol]21 mmol/L20 - 31 mmol/LMercy Health- [place], KYCreatinine [Mass/Vol]0.91 mg/dL0.7 - 1.2 mg/dLWilson [address] [facility]- [place], KYGFR/1.73 sq M predicted among non-blacks MDRD (S/P/Bld) [Vol rate/Area]NOT REPORTEDWilson [facility]- [place], KYGFR/1.73 sq M predicted among non-blacks MDRD (S/P/Bld) [Vol rate/Area][facility], KYComment on above:Average GFR for <20 years old not available. Chronic Kidney Disease: <60 mL/min/1.73sq m Kidney failure: <15 mL/min/1.73sq m eGFR calculated using average adult body mass. Additional eGFR calculator available at: http://www.EMOSpeech.Efizity/multiple_crcl_2011.htm Glucose [Mass/Vol]198 mg/iBLtcu04 - 99 mg/dLSouthwest General Health Center Health- [place], KYPotassium [Moles/Vol]3.9 mmol/L3.7 - 5.3 mmol/LMercy Health- [place], KYProtein [Mass/Vol]7.3 g/dL6.4 - 8.3 g/dLCleveland Clinic Marymount Hospital, KYSodium [Moles/Vol]139 mmol/L135 - 144 mmol/LMKindred Healthcare, KYUrea nitrogen [Mass/Vol]13 mg/dL6 - 20 mg/dLCleveland Clinic Marymount Hospital, KYAnion gap [Moles/Vol]10 mmol/L7 - 16 mmol/LMKindred Healthcare, [place] Chloride [Moles/Vol]109 mmol/LHigh98 - 107 mmol/LMKindred Healthcare, KYCreatinine [Mass/Vol]1.11 mg/dL0.51 - 1.19 mg/dLCleveland Clinic Marymount Hospital, KYGFR/1.73 sq M predicted among non-blacks MDRD (S/P/Bld) [Vol rate/Area][facility], KYComment on above:Average GFR for <20 years old not available. Chronic Kidney Disease: <60 mL/min/1.73sq m Kidney failure: <15 mL/min/1.73sq m eGFR calculated using average adult body mass. Additional eGFR calculator available at: http://www.Teranetics/multiple_crcl_2012.htm GFR/1.73 sq M predicted among non-blacks MDRD (S/P/Bld) [Vol rate/Area] mL/min/{1.73_m2}>60 mL/minCleveland Clinic Marymount Hospital, KYGlucose [Mass/Vol]220 mg/kZQkgv75 - 100 mg/dLCleveland Clinic Marymount Hospital, KYPotassium [Moles/Vol]3.8 mmol/L3.5 - 4.5 mmol/L [facility], KYSodium [Moles/Vol]141 mmol/L138 - 146 mmol/LMKindred Healthcare, KYOtheron 94-28-0750Iogpxwkupha Screen, UrNegativeNEGATIVECleveland Clinic Marymount Hospital, MOComment on above: (Positive cutoff 1000 ng/mL) Barbiturate Screen, UrNegativeNEGATIVECleveland Clinic Marymount Hospital, KYComment on above: (Positive cutoff 200 ng/mL) Benzodiazepine Screen, UrineNegativeNEGATIVECleveland Clinic Marymount Hospital, KYComment on above: (Positive cutoff 200 ng/mL) [...] urine, limitations of testing or timing of collection.[facility]- [place], DENITAComted on above:Testing for legal purposes should be confirmed by another method. To request confirmation of test result, please call the lab within 7 days of sample submission. Tricyclic Antidepressants, UrineNOT REPORTEDNEGATIVEMercy Health- [place], KYLactic Acid, Whole Blood1.0 mmol/L0.7 - 2.1 mmol/LMercy kinkon- [place], KYNo acute findings [facility]- [place], DENITAEXAMINATION: ONE XRAY VIEW OF THE CHEST 07/30/2020 2:21 pm COMPARISON: None. HISTORY: ORDERING SYSTEM PROVIDED HISTORY: durg overdose TECHNOLOGIST PROVIDED HISTORY: durg overdose FINDINGS: Cardiac silhouette is enlarged. Lungs appear clear. No acute abnormality.Stackops OHDelano Mhpn Incoming Radiant Results From [employer] - 07/30/2020 2:26 PM EDT EXAMINATION: ONE [...] Health- [place], KYAllen TestNOT REPORTEDMercy Health- [place], QWUDA7UAW REPORTEDMercy Health- [place], KYGFR Non->60>60 mL/minMercy Health- [place], KYHCO3, Ojiuom69.3 mmol/L22 - 29 mmol/L [facility]- [place], [...] REPORTEDmm HgMercy Health- [place], KYPOC pH TempNOT REPORTEDC[facility] Clinic [facility], KYPOC pO2 TempNOT REPORTEDmm HgCleveland Clinic [facility], [place] Positive Base Excess, Qvg5SoxiyC[facility] Clinic [facility], KYSample SiteNOT REPORTEDC[facility] Clinic [facility], MOTotal CO2, Hbdxgv94 mmol/L23 - 30 mmol/LMKindred Healthcare, MOPO Glucose Fingerstickon 74-13-6033Bwjqrbw [Mass/Vol]148 mg/pJYpgm73 - 110 mg/dL [facility], MOInterpretation and review of laboratory resultsAbnoCincinnati VA Medical Center, MOGlucose [Mass/Vol]190 mg/bWDtdd47 - 110 mg/dLCleveland Clinic Marymount Hospital, [place] Interpretation and review of laboratory resultsAbnormRiverside Methodist Hospital, MOTox Scr, Bld, EDon 19-19-4505Nrolrknsypjlv [Mass/Vol]<4Bmp03-98TnvhnKettering Health TroyComment on above:Performed By: #### ATRAZO #### [facility] [address] [place] [address] Cyber Ops Planner: Kodak Akbar MD #### CMPX, ADRIÁNX, LIP, CDP #### [facility] [address] [place] [address] Cyber Ops Planner: Amaris Modilaleah<3Vnk7-62UarfjKettering Health TroyComment on above:Performed By: #### ATRAZO #### [facility] [address] [place] [address] Cyber Ops Planner: Kodak Akbar MD #### CMPX, EDTOX, LIP, CDP #### [facility] [address] [place] [address] Cyber Ops Planner: Frank Otero MDEthanol [Mass/Vol]mg/dLNormal<10K[facility] Health TroyComment on above:Performed By: #### ATRAZO #### [facility] [address] [place] [address] Cyber Ops Planner: Kodak Akbar MD #### CMPX, EDTOX, LIP, CDP #### [facility] [address] [place] [address] Cyber Ops Planner: Frank Otero MDEthanol percent<0.010Normal<0.010K[facility] Health TroyComment on above:Performed By: #### ATRAZO #### [facility] [address] [place] [address] Cyber Ops Planner: Kodak Akbar MD #### CMPX, EDTOX, LIP, CDP #### [facility] [address] [place] [address] [phone] Cyber Ops Planner: Frank Otero MDToxic Tricyclic Sc,BlNegativeNormalNEGKettering Health TroyComment on above:Performed By: #### ATRAZO #### [facility] [address] [place] [address] [phone] Cyber Ops Planner: Kodak Akbar MD #### CMPX, EDTOX, LIP, CDP #### [facility] [address] [place] [address] Cyber Ops Planner: CICI Modi CHEST PORTABLEon 30-08-6521DZ CHEST PORTABLE EXAMINATION: ONE XRAY VIEW OF THE CHEST 07/30/2020 2:21 pm COMPARISON: None. HISTORY: ORDERING SYSTEM PROVIDED HISTORY: durg overdose TECHNOLOGIST PROVIDED HISTORY: durg overdose FINDINGS: Cardiac silhouette is enlarged. Lungs appear clear. No acute abnormality. IMPRESSION: No acute findings Interpreted by: Myranda Al MD Signed by: Myranda Al MD 07/30/20 Final resultNormalMerSt. John's Regional Medical CenterACETAMINOPHENon 02-26-2020 Acetaminophen [Mass/Vol]< 5.3Rwgena1.0-20.0SaFort Duncan Regional Medical CenterComment on above:Performed By: #### CBCWD, BMP, ACTM, ASAT, ETOHS, ANION, OSMOL, TSH3 #### [facility] [address], [place] [address]SHNZG GAPon 07-54-2316Wixnr gap [Moles/Vol]11.0 mmol/LNormal 8.0-16.0Uvalde Memorial HospitalComment on above:Result Comment: ANION GAP = Sodium -(Chloride + CO2)Performed By: #### CBCWD, BMP, ACTM, ASAT, ETOHS, ANION, OSMOL, TSH3 #### [facility] [address] [place] [address] 35854Zlgtyloanxccn levelon 32-98-5053Ltjyshldxyakh [Mass/Vol]< 5.00 - 20 ug/mLCleveland Clinic Marymount Hospital, KYComment on above:Performed at [facility] [address] [place] [address] 46540Dryeq Gapon 00-90-9430Djlem gap [Moles/Vol]11.0 mmol/L8 - 16 meq/LMKindred Healthcare, KYComment on above:ANION GAP = Sodium - (Chloride + CO2) Performed at [facility] [address] [place] [address]187 BASIC METABOL PANELon 32-90-0801Czurkis [Mass/Vol]9.5 mg/dLNormal8.5-10.5SBrooke Army Medical CenterComment on above:Performed By: #### CBCWD, BMP, ACTM, ASAT, ETOHS, ANION, OSMOL, TSH3 #### [facility] [address] [address]Adjdcrls [Moles/Vol]100 mmol/YYedbdh92-820BeypfUvalde Memorial HospitalComment on above:Performed By: #### CBCWD, BMP, ACTM, ASAT, ETOHS, ANION, OSMOL, TSH3 #### [facility] [address] [place] [address] 65946NU2 [Moles/Vol]26 mmol/XRfhkjz56-32SlviwUvalde Memorial Hospital Comment on above:Performed By: #### CBCWD, BMP, ACTM, ASAT, ETOHS, ANION, OSMOL, TSH3 #### [facility] [address] [place] [address] 56401Unarxkcgko [Mass/Vol]0.8 mg/dLNormal0.4-1.2SBrooke Army Medical CenterComment on above:Performed By: #### CBCWD, BMP, ACTM, ASAT, ETOHS, ANION, OSMOL, TSH3 #### [address] [address]Gnhkcrh [Mass/Vol]164 mg/nJWrxy73-011YlswcUvalde Memorial Hospital Comment on above:Performed By: #### CBCWD, BMP, ACTM, ASAT, ETOHS, ANION, OSMOL, TSH3 #### [address] [address]Pgyhpzqzu [Moles/Vol]5.0 mmol/LNormal3.5-5.2SBrooke Army Medical CenterComment on above:Result Comment: Very slight hemolysis indicated.Performed By: #### CBCWD, BMP, ACTM, ASAT, ETOHS, ANION, OSMOL, TSH3 #### [address] [address]Otiuzg [Moles/Vol]137 mmol/AWcxfdp079-573XfzfqUvalde Memorial HospitalComment on above:Performed By: #### CBCWD, BMP, ACTM, ASAT, ETOHS, ANION, OSMOL, TSH3 #### [facility] [address] [place] [address] 37192Svdm nitrogen [Mass/Vol]17 mg/dLNormal7-22Uvalde Memorial HospitalComment on above:Performed By: #### CBCWD, BMP, ACTM, ASAT, ETOHS, ANION, OSMOL, TSH3 #### [address] [address]Brdns Metabolic Panelon 07-14-3605Zevjomu [Mass/Vol]9.5 mg/dL8.5 - 10.5 mg/dLCleveland Clinic Marymount Hospital, KYComment on above:Performed at [facility] [address] [place] [address] 10199Fhdpeajx [Moles/Vol]100 mmol/L98 - 111 meq/L [facility], KYCO2 [Moles/Vol]26 mmol/L23 - 33 meq/LMKindred Healthcare, [place] Creatinine [Mass/Vol]0.8 mg/dL0.4 - 1.2 mg/dLCleveland Clinic Marymount Hospital, KYGlucose [Mass/Vol]164 mg/zHKntn57 - 108 mg/dLCleveland Clinic Marymount Hospital, KYPotassium [Moles/Vol] 5.0 mmol/L3.5 - 5.2 meq/[facility], KYComment on above:Very slight hemolysis indicated.Sodium [Moles/Vol]137 mmol/L135 - 145 meq/[facility], KYUrea nitrogen [Mass/Vol]17 mg/dL7 - 22 mg/dLCleveland Clinic Marymount Hospital, KYCALCULATED OSMOLALITYon 07-30-2320Yoryemzpwx [Osmolality]279.0 mOsmol/roUgwqhw681.0-300. U[facility]de Memorial HospitalComment on above:Performed By: #### CBCWD, BMP, ACTM, ASAT, ETOHS, ANION, OSMOL, TSH3 #### [address] [address]VXU WITH DIFFERENTIALon 62-66-4375MXR IMMATURE GRANS (IG)0.09 thou/sn2Wyfd5.00-0.07Uvalde Memorial HospitalComment on above:Performed By: #### CBCWD, BMP, ACTM, ASAT, ETOHS, ANION, OSMOL, TSH3 #### [address] [address]PHL NEUTROPHILS5.8 thou/zp4Dxeffj2.8-7.7Uvalde Memorial HospitalComment on above:Performed By: #### CBCWD, BMP, ACTM, ASAT, ETOHS, ANION, OSMOL, TSH3 #### [facility] [address] [place] [address] 88660Gzfcojmha (Bld) [#/Vol]0.1 thou/tc5Kxvudt6.0-0.1SBrooke Army Medical CenterComment on above:Performed By: #### CBCWD, BMP, ACTM, ASAT, ETOHS, ANION, OSMOL, TSH3 #### [address] [address]Nxfpbcrtv/100 WBC (Bld)0.7 %NormalUvalde Memorial Hospital Comment on above:Performed By: #### CBCWD, BMP, ACTM, ASAT, ETOHS, ANION, OSMOL, TSH3 #### [address] [address]Zrdaeqsderf (Bld) [#/Vol]0.1 thou/rn6Pasfkg8.0-0.4SBrooke Army Medical CenterComment on above:Performed By: #### CBCWD, BMP, ACTM, ASAT, ETOHS, ANION, OSMOL, TSH3 #### [address] [address]Gouluonsxkg/100 WBC (Bld)1.1 %[facility] Comment on above:Performed By: #### CBCWD, BMP, ACTM, ASAT, ETOHS, ANION, OSMOL, TSH3 #### [address] [address]Kojbilpelzj distribution width (RBC) [Ratio]12.5 %Vijrbs23.5-14.5 U[facility]de Memorial HospitalComment on above:Performed By: #### CBCWD, BMP, ACTM, ASAT, ETOHS, ANION, OSMOL, TSH3 #### [address] [address]Eclpkccshs (Bld) [Volume fraction]51.3 %Vchzrm14.0-52.0Uvalde Memorial HospitalComment on above:Performed By: #### CBCWD, BMP, ACTM, ASAT, ETOHS, ANION, OSMOL, TSH3 #### [address] [address]Bsihdafvdg (Bld) [Mass/Vol]18.5 gm/wyRbiu04.0-18.0Uvalde Memorial HospitalComment on above:Performed By: #### CBCWD, BMP, ACTM, ASAT, ETOHS, ANION, OSMOL, TSH3 #### [address] 30863PZIYKORX GRANS (IG)1.0 %[facility] ResourcesComment on above:Performed By: #### CBCWD, BMP, ACTM, ASAT, ETOHS, ANION, OSMOL, TSH3 #### [address] [address]Pxqvjcsdrlw (Bld) [#/Vol]2.6 thou/xx4Gutfiu9.0-4.8Uvalde Memorial HospitalComment on above:Performed By: #### CBCWD, BMP, ACTM, ASAT, ETOHS, ANION, OSMOL, TSH3 #### [address] [address]Awmpzwvqyhw/100 WBC (Bld)29.1 %[facility] Comment on above:Performed By: #### CBCWD, BMP, ACTM, ASAT, ETOHS, ANION, OSMOL, TSH3 #### [address] [address]GZA (RBC) [Entitic mass]32.2 rpQhzukl08.0-33.0Uvalde Memorial HospitalComment on above:Performed By: #### CBCWD, BMP, ACTM, ASAT, ETOHS, ANION, OSMOL, TSH3 #### [address] [address]TKHD (RBC) [Mass/Vol]36.1 gm/clVlqp04.2-35.5SBrooke Army Medical CenterComment on above:Performed By: #### CBCWD, BMP, ACTM, ASAT, ETOHS, ANION, OSMOL, TSH3 #### [address] [address]CEG (RBC) [Entitic vol]89.4 cJUaqkqx72.0-94.0Uvalde Memorial HospitalComment on above:Performed By: #### CBCWD, BMP, ACTM, ASAT, ETOHS, ANION, OSMOL, TSH3 #### [address] [address]Xijujwadu (Bld) [#/Vol]0.4 thou/ay5Rvimoy9.4-1.3SBrooke Army Medical CenterComment on above:Performed By: #### CBCWD, BMP, ACTM, ASAT, ETOHS, ANION, OSMOL, TSH3 #### [address] [address]Weaprbzvn/100 WBC (Bld)4.9 %[facility] Comment on above:Performed By: #### CBCWD, BMP, ACTM, ASAT, ETOHS, ANION, OSMOL, TSH3 #### [address] [address]Ivvsaukhfvx/100 WBC (Bld)63.2 %[facility] Comment on above:Performed By: #### CBCWD, BMP, ACTM, ASAT, ETOHS, ANION, OSMOL, TSH3 #### [address] [address]Bdjoldrkv RBC/100 WBC (Bld) [Ratio]0 /100 wbcNormalSBrooke Army Medical CenterComment on above:Performed By: #### CBCWD, BMP, ACTM, ASAT, ETOHS, ANION, OSMOL, TSH3 #### [address] [address]Uqmbjsqw mean volume (Bld) [Entitic vol]9.8 fLNormal9.4-12.4SBrooke Army Medical CenterComment on above:Performed By: #### CBCWD, BMP, ACTM, ASAT, ETOHS, ANION, OSMOL, TSH3 #### [address] [address]Cqvywtrof (Bld) [#/Vol]240 thou/hd4Casaha810-648VuaedUvalde Memorial HospitalComment on above:Performed By: #### CBCWD, BMP, ACTM, ASAT, ETOHS, ANION, OSMOL, TSH3 #### [address] [address]NJP (Bld) [#/Vol]5.74 mill/fp7Kixjni2.70-6.10Uvalde Memorial HospitalComment on above:Performed By: #### CBCWD, BMP, ACTM, ASAT, ETOHS, ANION, OSMOL, TSH3 #### [address] [address]IAH-OX81.7 wTVbvwhe40.0-45.0Uvalde Memorial HospitalComment on above:Performed By: #### CBCWD, BMP, ACTM, ASAT, ETOHS, ANION, OSMOL, TSH3 #### [facility] [address], [place] [address]HYO (Bld) [#/Vol]9.1 thou/qw9Vhoptj0.8-10.8Uvalde Memorial HospitalComment on above:Performed By: #### CBCWD, BMP, ACTM, ASAT, ETOHS, ANION, OSMOL, TSH3 #### [facility] [address], [place] [address]ROG auto differentialon [id number] (Bld) [#/Vol]0.1 10*3/[facility]- [place], KYBasophils/100 WBC (Bld)0.7 %[facility]- [place], [place] Eosinophils (Bld) [#/Vol]0.1 10*3/uLSouthwest [facility]- [place], KYEosinophils/100 WBC (Bld)1.1 %[facility]- [place], KYErythrocyte distribution width (RBC) [Ratio]12.5 % 11.5 - 14.5 %[facility]- [place], KYHematocrit (Bld) [Volume fraction]51.3 %42 - 52 %[facility]- [place], KYHemoglobin (Bld) [Mass/Vol]18.5 g/dLHighWilson Street Hospital- [place], KYImmature Grans (Abs)0.09HighWilson Street Hospital- [place], KYImmature granulocytes (Bld) [#/Vol]1 %[facility]- [place], KYInterpretation and review of laboratory results AbnormalWilson Street Hospital- [place], KYLymphocytes (Bld) [#/Vol]2.6 10*3/uLSouthwest General Health Center [facility]- [place], KYLymphocytes/100 WBC (Bld)29.1 %[facility]- [place], KYMCH (RBC) [Entitic mass]32.2 pg26 - 33 pgSouthwest General Health Center [facility]- [place], KYMCHC (RBC) [Mass/Vol]36.1 g/dLHigh [facility]- [place], KYMCV (RBC) [Entitic vol]89.4 fL80 - 94 fLSouthwest General Health Center [facility]- [place], [place] Monocytes (Bld) [#/Vol]0.4 10*3/[facility], KYMonocytes/100 WBC (Bld)4.9 %[facility], KYNucleated RBC/100 WBC (Bld) [Ratio]0 %/100 wbcCleveland Clinic Marymount Hospital, KYComment on above:Performed at [facility] [address] [place], [place] [address]Zzmrajqe mean volume (Bld) [Entitic vol]9.8 fL9.4 - 12.4 fL [facility], KYPlatelets (Bld) [#/Vol]240 10*3/[facility], KYRBC (Bld) [#/Vol]5.74 10*6/[facility], KYRDW-SD40.7 fL35 - 45 fLCleveland Clinic Marymount Hospital, KYSegmented neutrophils/100 WBC (Bld)63.2 %[facility], KYSegs Absolute5.8[facility], KYWBC (Bld) [#/Vol]9.1 10*3/[facility], [place] DRUG ABUSE SCREENon 24-73-3385EGCWUIEVSVX/METHAMPHNegativeNormalNEGATIVESaint St. Luke's Meridian Medical CenterComment on above:Performed By: #### UR_CS #### [facility] [address] [place] [address] 47533HCHWVDEXVGOJmikbpydXumuuxJXPGFGCPPrvqh [facility] Comment on above:Performed By: #### UR_CS #### [facility] [address] [place] [address] 70541Olskvhehizxsugt Ql (U)NegativeNormalNEGATIVESaint St. Luke's Meridian Medical CenterComment on above:Performed By: #### UR_CS #### [facility] [address] [place] [address] 60406Sxkjtqeizkjc Screen Ql (U)NegativeNormalNEGATIVESaint St. Luke's Meridian Medical CenterComment on above:Performed By: #### UR_CS #### [facility] [address] [place] [address] 15403BHZXJTY [address]ESaint St. Luke's Meridian Medical CenterComment on above:Performed By: #### UR_CS #### [facility] [address] [place] [address] 85213Parejif Ql (U)NegativeNormalNE[address]ESaint St. [facility] Comment on above:Performed By: #### UR_CS #### [address] [address]NCCVKNQSCOfktopcpZaefbhCVBWTPZFMvkah Rita's Medical CenterComment on above:Performed By: #### UR_CS #### [facility] [address] [place] [address] 19633Hneysyazrfmrc Ql (U)NegativeNormalNEGATIVESBrooke Army Medical CenterComment on above:Result Comment: A Negative result for [...] medical use only.Performed By: #### UR_CS #### [address] [address]HVVED ALCOHOL BLOODon 74-15-9592FYQAP ALCOHOL BLOOD< 0.01Normal 0.00[address] Meridian Medical CenterComment on above:Performed By: #### CBCWD, BMP, ACTM, ASAT, ETOHS, ANION, OSMOL, TSH3 #### [facility] [address] [place] [address] 53308Lrsspxpjn 02-85-9883NIFAK ALCOHOL, SERUM< 0.010.00 %[facility], KYComment on above:Performed at [facility] [address] [place] [address] 25280Nbllesckkotw 73-81-0157Hkerzgiutf Pqoe084.0[facility], [place] Comment on above:Performed at [facility] [address] [place] [address] 38469Ypapjnk 94-60-8488Gjsalrkncoznat and review of laboratory resultsAbnormal [facility], KYSALICYLATEon 11-44-9883VDZRCTWYXQ< 0.3Low2.0-10.0SaFort Duncan Regional Medical CenterComment on above:Performed By: #### CBCWD, BMP, ACTM, ASAT, ETOHS, ANION, OSMOL, TSH3 #### [facility] [address] [place] [address] 34995Czflimbfdg Levelon 68-68-8744Snzssykkcm, Serum< 0.3Low2 - 10 mg/dL [place], KYComment on above:Performed at [facility] [address] [place] [address] 69679TEV THIRD GENERATIONon 53-40-4296JCO THIRD GENERATION 5.000 uIU/mLHigh0.400-4.20SBrooke Army Medical CenterComment on above:Performed By: #### CBCWD, BMP, ACTM, ASAT, ETOHS, ANION, OSMOL, TSH3 #### [facility] [address] [address]SEP without Reflexon [id number] and review of laboratory resultsCleveland Clinic [facility] Hospital Qn5.000 m[IU]/[place], KYComment on above:Performed at [facility] [address] [place] [address] 53366REDIR REFLEX C + Son 69-78-0943Bzgrkchsg Ql (U)NegativeNormal NEGATIVESBrooke Army Medical CenterComment on above:Performed By: #### UR_CS #### [facility] [address] [address]CAPWUBmecbnklHbyjpwTCBSNPUPDzdnj Rita's Medical CenterComment on above:Performed By: #### UR_CS #### [facility] [address] [place] [address] 20003Xtzzchmrj (U)CLEARNormalCLEAR-SL CSaFort Duncan Regional Medical Center Comment on above:Performed By: #### UR_CS #### [facility] [address] [place] [address] 28420Cyped (U)YELLOWNormalSTRAW-YELLSaFort Duncan Regional Medical CenterComment on above:Performed By: #### UR_CS #### [facility] [address] [place] [address] 11163Kukaffj [Mass/Vol]NegativeNormalNEGATIVESBrooke Army Medical CenterComment on above:Performed By: #### UR_CS #### [facility] [address] [place] [address] 63535Lxogxhv Ql (U)NegativeNormalNEGATIVESBrooke Army Medical Center Comment on above:Performed By: #### UR_CS #### [facility] [address] [place] [address] 15824Suecuih Ql (U)NegativeNormalNEGATIVESBrooke Army Medical Center Comment on above:Performed By: #### UR_CS #### [facility] [address] [place] [address] 81966vD (Bld)5.9Fihblb4.0 - 9.0U[facility] Memorial HospitalComment on above:Performed By: #### UR_CS #### [address] [address]Zgkcjoz (U) [Mass/Vol]NegativeNormalNEGATIVESBrooke Army Medical CenterComment on above:Performed By: #### UR_CS #### [address] [address]Mebifzun gravity (U) [Rel density]1.100Kysfkc9.002-1.03Uvalde Memorial HospitalComment on above:Performed By: #### UR_CS #### [address] [address]Jyacnhmwzxyt Qn (U)1.0 eu/dlNormal0.0 - 1.0Uvalde Memorial HospitalComment on above:Performed By: #### UR_CS #### [address] [address]LGX (Bld) [#/Vol]NegativeNormalNEGATIVESBrooke Army Medical Center Comment on above:Performed By: #### UR_CS #### [address] [address]Inulwcyzog Reflex to Cultureon [id number] UrineNegative NEGATIVEMercy Health- [place], KYBlood, UrineNegativeNEGATIVEMercy Health- [place], [place] Character, UrineCLEARCLEAR-SL CMercy Health- [place], KYComment on above:Performed at [facility] [address] [place], [place] [address]Vxoyz, UAYELLOWSTRAW-YELL [facility]- [place], KYGlucose, UrNegativeNEGATIVE mg/dlMercy Health- [place], KYKetones Ql (U)NegativeNEGATIVEMercy Health- [place], KYLeukocyte esterase Test strip Ql (U) NegativeNEGATIVEMercy Health- [place], KYNitrite, UrineNegativeNEGATIVEMercy Health- [place], KYpH, UA5.5[facility]- [place], KYProtein (U) [Mass/Vol]NegativeNEGATIVEMercy Health- [place], KYSpecific Aguila, Urine1.026[facility]- [place], KYUrobilinogen, Urine1.0[facility]- [place], KYUrine Drug Screenon 02-26-2020 AMPHETAMINE+METHAMPHETAMINE URINE SCREENNegativeNEGATIVEMerSeattle VA Medical Center- [place], [place] Barbiturate Quant, UrNegativeNEGATIVEMercy Health- [place], [...] are for medical use only. Performed at [facility] [address] [place] [address] Otheron 62-42-1838Gglzfllcpzba left knee This report has been created using voice recognition software. It may contain minor errors which are inherent in voice recognition technology. Final report electronically signed by Dr. Alexander Vega on 02/15/2020 2:22 PMCleveland Clinic Marymount Hospital, KYPROCEDURE: XR KNEE LEFT (3 VIEWS) CLINICAL INFORMATION: Left knee pain, unspecified chronicity . COMPARISON: No prior study. TECHNIQUE: Standing AP and lateral projections a sunrise patella projection. FINDINGS: No acute fracture or dislocation. Joint space is maintained. No joint effusion. No softtissue normality.[facility], KYEdi, Wcoh Incoming Radiant Results From [facility] - 02/15/2020 2:24 PM EDT PROCEDURE: XR [...] by Dr. Alexander Vega on 02/15/2020 2:22 [facility], KYXR KNEE LEFT (3 VIEWS)on [id number] KNEE LEFT (3 VIEWS) PROCEDURE: XR KNEE [...] Signed by: Alexander Vega MD 02/15/20 Final resultNormalSBrooke Army Medical Center Vital Signs Date TimeVital SignValuePerforming RvxvzqargVbtgdltl01-39-0115 07:30-0400Body eexwmivdvrh83.6 [degF]PHYSICIAN NO [facility] 04-05-2025 07:30-0400Diastolic blood gwbqpeiu56 mm[Hg]PHYSICIAN NO [facility]06-11-2025 07:30-0400Heart rate83 /minPHYSICIAN [facility]06-11-2025 07:30-0400Respiratory rate 20 /minPHYSICIAN NO [facility]06-11-2025 07:30-0400 SaO2% (BldA) [Mass fraction]98 %PHYSICIAN NO [facility]06-11-2025 07:30-0400Systolic blood qkpavevi315 mm[Hg]PHYSICIAN NO [facility]06-09-2025 14:38-0400Body uvyphp610.[address] [facility]06-09-2025 09:00-0400Body dlwujh[address] [facility]06-06-2025 22:18-0400Body izbtzhhovsp04.4 [degF]Demetria Cifuentes TALENT DEVELOPMENT MANAGER Work Phone: [phone]06-06-2025 22:18-0400 Diastolic blood mm[Hg]Demetria Cifuentes TALENT DEVELOPMENT MANAGER Work Phone: [phone]06-06-2025 22:18-0400 Heart cgzi145 /Toni Caseacher TALENT DEVELOPMENT MANAGER Work Phone: [phone]62[facility]06-06-2025 22:18-0400 Respiratory rate16 /Toni Caseacher TALENT DEVELOPMENT MANAGER Work Phone: [phone]06-06-2025 22:18-0400 SaO2% (BldA) [Mass fraction]97 %Demetria Cifuentes TALENT DEVELOPMENT MANAGER Work Phone: [phone]06-06-2025 22:18-0400 Systolic blood wefinvcf577 mm[Hg]Demetria Cifuentes TALENT DEVELOPMENT MANAGER Work Phone: [phone] [place], [place] [address]76[address]06-06-2025 13:28-0400 Body rlqfwu013.72 cmDemetria Cifuentes TALENT DEVELOPMENT MANAGER Work Phone: [phone] [place], [place] 976[address]06-06-2025 13:28-0400 Body jcvawk652.27 kgDemetria Orlandor TALENT DEVELOPMENT MANAGER Work Phone: [phone] [place], [place] 4944004-25-2025 21:06-0400 Body crkymm773.72 cmDemetria Caseacher TALENT DEVELOPMENT MANAGER Work Phone: [phone] [place], [place] 4944004-25-2025 21:06-0400 Body rdpjulbcyml97.6 [degF]Demetria Gunterfranciaacher TALENT DEVELOPMENT MANAGER Work Phone: [phone] [place], [place] 4944004-25-2025 21:06-0400 Body crrgej168.1 kgDemetria Caseacher TALENT DEVELOPMENT MANAGER Work Phone: [phone] [place], [place] 4944004-25-2025 21:06-0400 Diastolic blood cuypycyz58 mm[Hg]Demetria Guntermesfinr TALENT DEVELOPMENT MANAGER Work Phone: [phone] [place], [place] 4944004-25-2025 21:06-0400 Heart rate90 /Toni Caseacher TALENT DEVELOPMENT MANAGER Work Phone: [phone] [place], [place] 4944004-25-2025 21:06-0400 Respiratory rate16 /Toni Caseacher TALENT DEVELOPMENT MANAGER Work Phone: [phone] [place], [place] 4944004-25-2025 21:06-0400 SaO2% (BldA) [Mass fraction]98 %Demetria Gunterabelino TALENT DEVELOPMENT MANAGER Work Phone: [phone] [place], [place] 4944004-25-2025 21:06-0400 Systolic blood trkeddbp663 mm[Hg]Demetria Esau TALENT DEVELOPMENT MANAGER Work Phone: [phone] [place], [place] 4944003-17-2025 08:24-0400 Body xmuogf866.45 kgDemetria Caseacher TALENT DEVELOPMENT MANAGER Work Phone: [phone] [place], [place] 4944003-17-2025 07:30-0400 Body tonhxrotira62.3 [degF]Demetria Gunterfranciaacher TALENT DEVELOPMENT MANAGER Work Phone: [phone] [place], [place] 4944003-17-2025 07:30-0400 Diastolic blood soxpnlko39 mm[Hg]Demetria Gunterabelino TALENT DEVELOPMENT MANAGER Work Phone: [facility]03-17-2025 07:30-0400 Heart rate77 /Toni Cifuentes TALENT DEVELOPMENT MANAGER Work Phone: [phone]03-17-2025 07:30-0400 Respiratory rate16 /Toni Cifuentes TALENT DEVELOPMENT MANAGER Work Phone: [phone]03-17-2025 07:30-0400 SaO2% (BldA) [Mass fraction]99 %Demetria Esau TALENT DEVELOPMENT MANAGER Work Phone: [phone]03-17-2025 07:30-0400 Systolic blood ueiilese075 mm[Hg]Demetria Gunterabelino TALENT DEVELOPMENT MANAGER Work Phone: [phone]03-14-2025 16:04-0400 Body xgbenu497.72 cmDemetria Cifuentes TALENT DEVELOPMENT MANAGER Work Phone: [phone]03-13-2025 17:17-0400 Diastolic blood wjuwcmln05 mm[Hg]PHYSICIAN NO [facility]03-13-2025 17:17-0400Heart tjot153 /minPHYSICIAN [facility]03-13-2025 17:17-0400Respiratory rate16 /minPHYSICIAN [facility]03-13-2025 17:17-6991TpR8% (BldA) [Mass fraction]96 %PHYSICIAN [facility]03-13-2025 17:17-0400Systolic blood ftmnqrom498 mm[Hg]PHYSICIAN [facility]03-13-2025 12:29-0400Body xyxeba471.72 cmPHYSICIAN [facility]03-13-2025 12:29-0400Body pnyhptaowmr03.4 [degF]PHYSICIAN [facility]03-13-2025 12:29-0400 Body xhvild903 kgPHYSICIAN [facility]10-10-2024 07:30-0400Body onhgbymzjkl61.8 [degF]HAILEE Gunterrbacher Work Phone: [phone] [place], [place] 9760110-10-2024 07:30-0400 Diastolic blood jynpilpe58 mm[Hg]TALENT DEVELOPMENT MANAGEREllen MarcosDemetria Janirbacher Work Phone: [phone]10-10-2024 07:30-0400 Heart rate89 /minAPREllen MarcosDemetria Janirbacher Work Phone: [phone]10-10-2024 07:30-0400 Respiratory rate20 /minAPREllen Gunterrbacher Work Phone: [phone] [place], [place] 4944010-10-2024 07:30-0400 SaO2% (BldA) [Mass fraction]99 %TALENT DEVELOPMENT MANAGEREllen Gunterrbacher Work Phone: [phone] [place], [place] [address]0110-10-2024 07:30-0400 Systolic blood ggagqotv685 mm[Hg]HAILEE Gunterrbacher Work Phone: [phone] [place], [place] 4944010-08-2024 15:22-0400 Body gactdh347.72 cmAPREllen MarcosDemetria Janirbacher Work Phone: [phone] [place], [place] 4944010-07-2024 11:25-0400 Body qsulfl775.59 kgAPREllen Gunterrbacher Work Phone: [phone] [place], [place] [address]0110-07-2024 10:00-0400 Diastolic blood tzehzlae17 mm[Hg]HAILEE Gunterrbacher Work Phone: [phone] [place], [place] [address]0110-07-2024 10:00-0400 Heart rate75 /minAPREllen Gunterrbacher Work Phone: [phone] [place], [place] [address]0110-07-2024 10:00-0400 Respiratory rate16 /minAPREllen Gunterrbacher Work Phone: [phone] [place], [place] [address]0110-07-2024 10:00-0400 SaO2% (BldA) [Mass fraction]97 %HAILEE Cifuentes Work Phone: [facility]10-07-2024 10:00-0400 Systolic blood sulrokyg629 mm[Hg]HAILEE Marcosfer Esau Work Phone: [facility]10-07-2024 03:09-0400 Body ifpkli379.72 cmAPREllen CrumpDemetria Esau Work Phone: [facility]10-07-2024 03:09-0400 Body wrfpdsiwbsy25.8 [degF]HAILEE Cifuentes Work Phone: [facility]10-07-2024 03:09-0400 Body gixtsd995.35 kgAPREllen Cifuentes Work Phone: [facility]10-02-2024 16:00-0400 Body rhekvp428.72 cmOhio[facility]10-02-2024 16:00-0400Body mass index (BMI) [Ratio]35.4 kg/h4IkyzfrttiOhiohealth Grant Medical Center10-02-2024 16:00-0400Body mwwdcicwohp40.6 [degF][facility]10-02-2024 16:00-0400Body rwauxx539.68 kgOhio[facility]10-02-2024 16:00-0400Diastolic blood mm[Hg][facility] 07-27-2024 16:00-0400Heart rate76 /minOhio[facility] 07-27-2024 16:00-6751TnU0% (BldA) [Mass fraction]96 %[facility]10-02-2024 16:00-0400Systolic blood lnujzaxq297 mm[Hg][facility]09-04-2024 10:41-0400Body lsvoqe901.72 cmOhio[facility]09-04-2024 10:41-0400Body mass index (BMI) [Ratio]35.4 kg/m2 [facility]09-04-2024 10:41-0400Body kigxaj689.68 kg [facility]09-04-2024 10:41-0400Diastolic blood yuwdbapd03 mm[Hg][facility]09-04-2024 10:41-0400Heart wwvy295 /min [facility]09-04-2024 10:41-0400Respiratory rate12 /min [facility]09-04-2024 10:41-0400Systolic blood jestdvbf318 mm[Hg][facility]07-01-2024 11:19-0400Blood Pressure LocationPatricopal PATEL [facility]07-01-2024 11:19-0400Body qomofdvdvqn80.6 [degF]Joel PATEL [facility]07-01-2024 11:19-0400Diastolic blood smkdllyx36 mm[Hg]Joel PATEL [facility]07-01-2024 11:19-0400Heart rate95 /minPatrick JORGE [facility]07-01-2024 11:19-0400Respiratory rate16 /minPatrick JORGE [facility]07-01-2024 11:19-0400Systolic blood wwovdojj098 mm[Hg]Joel PATEL [facility]05-09-2024 12:58-0400Body cvehqg455.72 cmOhio[facility]05-09-2024 12:58-0400Body mass index (BMI) [Ratio]37.5 kg/m8DnifgnqxzOhiohealth [facility] Medical Center05-09-2024 12:58-0400Body miyfax015.03 kgOhio[facility]05-09-2024 12:58-0400Diastolic blood coizdixg01 mm[Hg] [facility]05-09-2024 12:58-0400Heart iwsc802 /min [facility]05-09-2024 12:58-1932XbG7% (BldA) [Mass fraction]98 %[facility]05-09-2024 12:58-0400Systolic blood svoimnsx873 mm[Hg][facility]04-22-2024 10:57-0400 Body .72 cmOhio[facility]04-22-2024 10:57-0400Body mass index (BMI) [Ratio]37.8 kg/b2OpuefywagOhiohealth Grant Medical Center04-22-2024 10:57-0400Body othayy366.94 kgOhiohealth [facility] Center04-22-2024 10:57-0400Diastolic blood iajhbroe35 mm[Hg][facility] 02-15-2024 10:57-0400Heart rate95 /min[facility] 02-15-2024 10:57-2020IhJ3% (BldA) [Mass fraction]98 %[facility]04-22-2024 10:57-0400Systolic blood brghjaor173 mm[Hg][facility]02-16-2024 13:06-0500Body yrhjnu652.72 cmOhio[facility]02-16-2024 13:06-0500Body mass index (BMI) [Ratio]37.2 kg/m2 [facility]02-16-2024 13:06-0500Body lrechxblkdi98.7 [degF][facility]02-16-2024 13:06-0500Body zwtifq043.13 kg [facility]02-16-2024 13:06-0500Diastolic blood zvlqmgue61 mm[Hg][facility]02-16-2024 13:06-0500Heart ovwt499 /min [facility]02-16-2024 13:06-0500Respiratory rate18 /min [facility]02-16-2024 13:06-9853SgH9% (BldA) [Mass fraction]96 %[facility]02-16-2024 13:06-0500Systolic blood ccdqekcs226 mm[Hg][facility]02-09-2024 08:30-0500 Body vrsiqh000.72 cmDemetria Cifuentes Other [employer] Other 02-09-2024 08:30-0500Body mass index (BMI) [Ratio] 39.38 kg/e4GftspapqDemetria Gunterabelino Other [employer] Other 02-09-2024 08:30-0500Body cpevzo097.48 kgDemetria Gunterfranciaopal Other [employer] Other 02-09-2024 08:30-0500Diastolic blood mm[Hg] Demetria Esau Other [employer] Other 02-09-2024 08:30-1624IhK3% (BldA) [Mass fraction]98 % Demetria Esau Other [employer] Other 02-09-2024 08:30-0500Systolic blood mm[Hg] Demetria Esau Other [employer] Other 12-22-2023 17:30-0500Body yxdrqx608.72 Garrett Olivas Other [facility]12-22-2023 17:30-0500 Body mass index (BMI) [Ratio]42.57 kg/g3Nlsdgl Dymond Other [employer] Other 12-22-2023 17:30-0500Body gwoivvgsece39.4 [degF]Lnyn Olivas Other [employer] Other 12-22-2023 17:30-0500Body facqfw390.01 kgPasue Olivas Other [employer] Other 12-22-2023 17:30-0500Body nbvvpe555 [facility]12-22-2023 17:30-0500Diastolic blood biqdzqbw36 mm[Hg] Lynn Deisy Other [facility]12-22-2023 17:30-0500 Respiratory rate18 /minLynn Deisy Other [employer] Other 12-22-2023 17:30-2815BnS3% (BldA) [Mass fraction]97 % Lynn Deisy Other [employer] Other 12-22-2023 17:30-0500Systolic blood zuqribhz840 mm[Hg] Lynn Deisy Other [facility]12-05-2022 19:40-0500 Body .72 cmPamelricarda Olivas Other [employer] Other 12-05-2022 19:40-0500Body mass index (BMI) [Ratio] 35.58 kg/i9Maacki Deisy Other [employer] Other 12-05-2022 19:40-0500Body okcunk107.14 kgPasue Deisy Other [employer] Other 12-05-2022 19:40-0500Diastolic blood uxgjvntk99 mm[Hg] Lynn Deisy Other [employer] Other 12-05-2022 19:40-0500Respiratory rate18 /minLynn Olivas Other [employer] Other 12-05-2022 19:40-4640BdV7% (BldA) [Mass fraction]98 % Lynn Olivas Other [employer] Other 12-05-2022 19:40-0500Systolic blood irvgmfje758 mm[Hg] Lynn Olivas Other [employer] Other 10-11-2020 08:00-0400Body Sgxjdyrodtw21.01 [degF][facility], CQ99-26-2972 08:00-0400BP Mtduakeou55 mm[Hg][facility], [place]02-36-4139 08:00-0400BP Vpxwjfqg919 mm[Hg][facility], UL88-33-3018 08:00-0400Pulse (Heart Rate)80 /min [facility], TJ35-27-4396 08:00-0400Respiratory Rate14 /minSCovenant Medical Center, PY71-61-1226 19:36-0400Pulse Mexangxy39 % [facility], XB87-26-0745 23:05-0400BMI (Body Mass Index) 35.15 kg/x8RsbdvForest Health Medical Center, RM46-85-9139 23:05-0400Body weight 114.31 kgFore[facility], AN71-47-2354 23:05-3726Vwbalw156.3 cmSCovenant Medical Center, UV37-64-6142 19:54-0400Body Temperature 98.29 [degF][facility], CE00-28-4562 19:54-0400BP Diastolic 74 mm[Hg][facility], DI70-35-0098 19:54-0400BP Wrtvagay667 mm[Hg][facility], DC13-12-7947 19:54-0400Pulse (Heart Rate) 93 /minRavinod [facility], GQ23-26-1281 19:54-0400Pulse Mjacxegh18 %[facility], VN34-71-4535 19:54-0400Respiratory Rate17 /min [facility], BW87-49-7620 05:15-0400BMI (Body Mass Index) 35.98 kg/l4JkaatMission Family Health Center, ZH81-55-8303 05:15-0400Body weight 117.03 kgMission [facility], XA03-66-0166 13:31-7498Aiktuu281.3 cm Peace [facility], KF17-27-3727 07:46-0400Body Sinwqlbeqdx28.5 [degF][facility], AH91-66-5817 07:46-0400BP Qgeyddjoo63 mm[Hg][facility], PX52-57-1800 07:46-0400BP Ponrnyqb405 mm[Hg][facility], PT63-12-9692 07:46-0400Pulse (Heart Rate)93 /LorenzoCovenant Medical Center, DN90-52-4036 07:46-0400Pulse Hcyezwmt70 %[facility], NG26-50-2707 07:46-0400 Respiratory Rate18 /LorenzoCovenant Medical Center, GZ63-63-8731 00:33-0400BMI (Body Mass Index)39.28 kg/l4DsfngForest Health Medical Center, 02-27-2020 00:33-0400Body yhemxn148.66 kgFito SalehSelect [facility] [place] 02-27-2020 00:334671Zcwmyg134.3 Michelle SalehSelect [facility] [place] 02-14-2020 13:120400BMI (Body Mass Index)40.5 kg/e4Lgsbgchacorta SalehOutagamie County Health Center Work Phone: [phone] 13:12-0400Body mass index (BMI) [Percentile]99 {percentile}[facility]Ar[facility] Work Phone: [phone] 13:12Body Thbyreyjnrs66.1 [degF]Fito [facility] Work Phone: [phone] 13:12-0400Body .[facility] Work Phone: [phone] 13:12-0400BP Wnorjlsio17 mm[Hg][facility]ito [facility]elezArk[facility] Work Phone: [phone] 13:12-0400BP Mqmwwtbw367 mm[Hg]Fito KaArk[facility] Work Phone: [phone] 13:12BSA (Body Surface Area)2.31 m2 [facility] Work Phone: 1([phone] 13:128620Sgbdch076.72 [facility] Work Phone: 1([phone] 13:12-0Pain Level[address] [place] [address] Work Phone: [phone] 13:120400Pulse (Heart Rate)84 /minSCheyenne Regional Medical Center Work Phone: [phone]) 13:12-0400Pulse Lmdalrgm76 %Fito [facility] Work Phone: [phone] 533-129404-21-2020 13:12-0400Respiratory Rate16 /Florin [facility] Work Phone: Encounters Encounter DateEncounter TypeCare ProviderFacilityStart: 05-09-2025 End: 60-26-2753Eyhcywenw department patient visitNO PCP NO PCPProMedica Burlington HospitalStart: 34-81-8696brkhnkfspaEtdsnbf WATERSFacility: JailStart: 49-39-0689dwmmltditxDPetar BARONIndian Valley Hospital HospitalStart: 79-75-7769Buw- patient / Non-visitPHYSICIAN NO [facility] Work Phone: Start: 03-31-2025 End: 38-63-1326Folugxnrej and management of inpatientJennifer Rohrbacher TALENT DEVELOPMENT MANAGER Work Phone: [facility] C[facility]-[address] [place] [address] Work Phone: Start: 43-78-5419gjlhqxbjnfXbnmtwhj Rohrbacher Facility:[facility]art: 09-95-6473Ziblnuupxk Recurring PHYSICIAN NO [facility] Ctr- CredibleStart: 03-31-2025 End: 90-59-9181ceyqqqerdcRjbcagdg Rohrbacher TALENT DEVELOPMENT MANAGER Work Phone: [facility] Work Phone: Start: 03-31-2025 End: 56-28-6152Udcqqbjy ReferredJennifer Rohrbacher TALENT DEVELOPMENT MANAGER Work Phone: [facility] C[facility]-LAB Path Spec Vandana HospStart: 02-17-2025 End: 16-34-0283Idlcztocp department patient visitJennifer Rohrbacher TALENT DEVELOPMENT MANAGER Work Phone: [facility] C[facility]-Emergency Room Work Phone: Start: 84-13-7058Yao-patient / Non-visitJetony Caseacher TALENT DEVELOPMENT MANAGER Work Phone: [facility] Physician [facility] Out[facility] Work Phone: Start: 01-05-2025 End: 08-00-2797Ktimqlvisg and management of inpatientPHYSICIAN NO [facility]-[address] [place] [address] Work Phone: Start: 94-69-1775Rdodgfreyl RecurringJetony Gunterrbacher TALENT DEVELOPMENT MANAGER Work Phone: [facility] Ctr- CredibleStart: 13-13-5151Vrh-patient / Non-visitAPRN Demetria Cifuentes Work Phone: [facility] Physician [facility] Out[facility] Work Phone: Start: 08-01-2024 End: 97-80-3819Gcgkdesrpf and management of inpatientAPRN Demetria Cifuentes Work Phone: [facility]-[address] [place] [address] Work Phone: Start: 07-27-2024 End: 39-18-2965uxnmsbmmlqMdahscwivFort Hamilton Hospital Work Phone: Start: 07-27-2024 End: 39-79-9905Ycbbjhv encounter procedureSampson [facility] Work Phone: Start: 06-29-2024 End: 40-31-9080pqtasvglhkEmqhgenxaFort Hamilton Hospital Work Phone: Start: 06-29-2024 End: 15-35-4594Jklrwzm encounter procedureSampson Regional Medical Center Physician GroupACMC Healthcare System [facility] Work Phone: Start: 19-52-7411qmnvugdzqdWxegmct R WATERSFacility:EU BellevueStart: 04-25-2024 End: 63-11-9676Lib-admission assessmentPakay PATEL [facility] Start: 04-25-2024 End: 16-14-7236Tsbcugi encounter procedureJoel Elisabeth PATEL [facility] start: 03-03-2024 End: 18-19-0797hxczbzkrndYpxgazsptSheltering Arms Hospital Work Phone: Start: 03-03-2024 End: 96-73-0519Fbnldup encounter procedureSampson Regional Medical [facility] Work Phone: Start: 02-15-2024 End: 99-76-0369rytslssdlpEcmemkhohSheltering Arms Hospital Work Phone: Start: 02-15-2024 End: 99-02-0214Rlutfmd encounter procedureSampson [facility] Medical [facility] Work Phone: Start: 43-19-0996Kaj-patient / [facility] Work Phone: Start: 12-11-2023 End: 13-34-6072qawuthoeoxYiortuvvlSheltering Arms Hospital Work Phone: Start: 12-11-2023 End: 23-46-9290Zmfpsml encounter procedureSampson Regional Medical Center [facility] Justin Work Phone: Start: 36-11-8980Ato-patient / Non-visitSampson Regional Medical [facility] Work Phone: Start: 12-04-2023 End: 80-21-2159jucowhmkmpMzghonyg Rohrbacher Other [place] [facility] Other Start: 94-74-4040Fjtnan outpatient new 30 minutes Demetria JuddChildren's Hospital of Columbustart: 11-30-2023 End: 46-45-7277kbsriljovmGHTQSXSJaney Graf AvailableStart: 10-29-2023 End: 62-93-2692ptfaujfpdhNDLRW L JAXWilfredo AvailableStart: 10-16-2023 End: 16-29-7951mxoyptdepdNsbejg Deisy Other [place] Other Start: 60-97-4852Vxybqt outpatient visit 15 minutes Lynn [facility] ClydeStart: 10-16-2023 End: 74-74-1045Uxfjdqu encounter procedureSampson Regional Medical Center [facility] Justin Work Phone: Start: 01-24-2023 End: 60-86-3189vyoiwuvcztGuodewrxqSt. [facility] Work Phone: Start: 01-24-2023 End: 12-85-0720Cihobhw encounter procedureP[facility] [place] Work Phone: Start: 01-23-2023 End: 80-11-3252mgnjlgtndgEydzkzukjSt. [facility] Work Phone: Start: 01-23-2023 End: 05-23-9092Sfzwgvby ReferredKettering Health [facility] [place] Work Phone: Start: 01-22-2023 End: 30-39-5368Cmsuamicot and management of inpatientDR NONE LISTED REQUEST Facility:H4Apdne: 01-22-2023 End: 30-92-7914kyqnkxysjaRpjagcpsvSt. [facility] Work Phone: Start: 01-22-2023 End: 97-29-7242Ducxlbsn ReferredPike Community Hospital [facility] [place] Work Phone: Start: 09-29-2022 End: 96-25-9097Bwoyankh ReferredNP-C Lynn [facility]-Lab Main CampusStart: 09-29-2022 End: 58-75-1540cotagayhcfWP-C [facility] Work Phone: Start: 88-74-9365Mgsjpl outpatient new 20 minutes Lynn DymondFPG Urgent Care ClydeStart: 04-20-2022 End: 33-98-1130Bomnpgzhjz and management of inpatientSFayette County Memorial Hospitaltart: 56-83-9938Rariuup encounter procedureSdima Villalobos [facility] AdmittingStart: 07-30-2020 End: 74-59-2430Zakhlimjrv and management of inpatientSACMC Healthcare Systemtart: 75-28-6129Tgsuoan encounter procedureSCovenant Medical Center, KYStart: 07-30-2020 End: 32-94-9288Wmzmaxdoyc and management of inpatientRavinod Hayes Work Phone: stvz 4C Onc/Med SurgComment on above:Suicide attempt by multiple drug overdose, initial encounter (HCC) (Primary Dx); Toxic metabolic encephalopathyStart: 02-27-2020 End: 58-62-2973Tefhgzf encounter procedureGalileo Mcmanus Work Phone: [facility] Work Phone: Start: 02-26-2020 End: 69-29-7633Tfxjodgyhf and management of inpatientSDOCTORS HOSPITAL MARIEBaylor Scott & White [facility] Hospital – Dallastart: 00-63-3210Rotioxq encounter procedureSEufaula, KYStholstein: 02-15-2020 End: 40-27-9304Ulppqof encounter procedureSDOCTORS HOSPITAL KEVYNPRESBYTERIAN HOSPITALPAULBaylor Scott & [facility] Cent[facility] CenterStart: 02-15-2020 End: 14-91-5354Avzdmaopcf hospital visit by physicianStr Xr Rm 1 Op [facility] RadiologyComment on above:Left knee pain, unspecified chronicityStart: 02-14-2020 End: 65-88-2287Pmqpvomnile patientJessnikkie Jose E Work Phone: [facility] Work Phone: Start: 02-14-2020 End: 40-36-9388pdfyqiwpuuGqrpw Lilia Work Phone: [facility] Work Phone: Procedures DateProcedureProcedure DetailPerforming ClinicianStart: 95-21-7414K-ray of lumbar spine, two or three viewsAPREllen Augustin Esau Work Phone: Start: 49-74-1787F-ray of thoracic spine, two views TALENT DEVELOPMENT MANAGEREllen Augustin Esau Work Phone: Start: 87-10-4905Emqhqlq blood reagent stripBryan C Vinicio Work Phone: Start: 69-91-8245Hmrjyoy blood reagent stripBryan C Vinicio Work Phone: Start: 83-35-6431Labsrky blood reagent stripBryan C Vinicio Work Phone: Start: 74-53-6721Poexdfifgk glycosylated k3uItow Opal Barragan Work Phone: Start: 86-74-6456Trotgwd blood reagent stripBryan C Vinicio Work Phone: Start: 64-64-7478Vcurrsh blood reagent stripBryan C Vinicio Work Phone: Start: 14-47-3323ICCRVY STRIP REPORTHpf ScanningStart: 29-19-4696Xrhszju blood reagent stripBryan C Vinicio Work Phone: Start: 07-28-4747Uqrwesp blood reagent stripBryan C Vinicio Work Phone: Start: 24-77-0082BYLKP OXIMETRY, CONTINUOUSFITO AKERStart: 74-98-4105Bmqeqtu blood reagent stripSDIMA AKERStart: 76-83-2868ZOKIO-, ANTIBODY, TOTALSACHACORTA AKERStart: 45-01-8796QVVYE- FITO MCtart: 67-70-7235Gaxyb count complete auto&auto difrntl wbc FITO AKERStart: 87-85-8480Wrxqsvbgglkdc metabolic panelSDIMA VILLALOBOS Start: 48-59-4973Fcemirm function panelSDIMA AKERStart: 10-51-9086Ylpduip blood reagent stripJean Pierre Barton Work Phone: Start: 57-63-7416XVGTM-19, ANTIBODY, TOTALRebriericarda Jorge Work Phone: Start: 41-51-4835RSDOT-19Rekhricarda Patel Work Phone: Start: 19-31-2500TYLXDIKFN PATIENTSDIMA SALEHGLADYSPAULAna Start: 23-58-2915QFPMF OXIMETRY, CONTINUOUSSAEAST [facility]IO [facility] MCtart: 08-01-2020 Glucose blood reagent stripJean Pierre Barton Work Phone: Start: 97-96-1514EMZTKQR PRECAUTIONSCHACORTA VILLALOBOS Start: 20-79-1115TZPPL OXIMETRY, CONTINUOUSRANDOLPH KEVYNTOMASAÁNGELAtart: 08-01-2020 Glucose blood reagent stripSDIMA SALEHGLADYSYONATANtart: 55-30-9529HIXG GENERALSAEAST [facility] MCtart: 55-12-0842Rpjkuqe blood reagent stripJean Pierre Barton Work Phone: Start: 39-47-2411YXRUBWRV OXYGEN THERAPY PROTOCOLSMAYO CLINIC [facility])Joyce AKERStart: 90-99-0487GSTJP CANNULA OXYGENSAEAST [facility]IO [facility] MCtart: 59-97-7316WKDTI OXIMETRY, CONTINUOUSRANDOLPH MCtart: 56-87-4090Brpdedu blood reagent stripSDIMA SALEHCLARISSEtart: 92-85-1614Dvlfb count complete auto&auto difrntl wbcSAEAST [facility]IO [facility] KEVYNTOMASAÁNGELAtart: 28-84-8376Aiqyvwggolzks metabolic panelSLEO PAULHUNTERtart: 44-76-9216Mnbpcgn function panelSDIMA VELEZMARINPAULAna Start: 68-42-9196Kicwvgk blood reagent stripJean Pierre Barton Work Phone: Start: 10-51-6598TNQYP METABOLIC PANEL W/ REFLEX TO MG FOR LOW KSrikanth Popuri Work Phone: Start: 38-13-8602Jwpup count complete auto&auto difrntl wbcSrikarobles Rucker Work Phone: Start: 23-18-7011Iwwfuzg function panelRepeter Patel Work Phone: Start: 50-31-6458HUESA OXIMETRY, CONTINUOUSFITO AKERStart: 75-48-4418OHIVP OXIMETRY, CONTINUOUSFITO AKERStart: 67-37-4276Zvtwoox blood reagent stripSDIMA AKERStart: 34-85-2136BVAWI OXIMETRY, CONTINUOUSFITO INGRAMSStart: 12-12-6487Poqsryk blood reagent stripJean Pierre Barton Work Phone: Start: 67-05-3844Rkconby blood reagent stripSDIMA AKERStart: 25-58-9694JFUMP OXIMETRY, CONTINUOUSFITO AKERStart: 55-27-5385Efratud blood reagent stripJean Pierre Barton Work Phone: Start: 22-00-5814LCR SCANNED REPORTSDIMA VELEZMARINVERO Start: 81-68-4132UNP SCANNED REPORTHpf ScanningStart: 67-73-3176EWDQL OXIMETRY, CONTINUOUSFITO AKERStart: 56-30-4331Bievufs blood reagent stripSDIMA AKERStart: 13-36-5983Qqqtntw blood reagent stripJean Pierre Barton Work Phone: Start: 43-61-8256IF CONSULT TO PSYCHIATRYSAJoyce PAULMARLENYÁNGELAtart: 42-55-5694Vjskdbr blood reagent stripSDIMA AKERStart: 96-53-1460WFGXPVOZ OXYGEN THERAPY PROTOCOLSDIMA PAULMARLENYÁNGELAtart: 07-31-2020 NASAL CANNULA OXYGENFITO SALEHTOMASAÁNGELAtart: 03-36-8471JWOBE OXIMETRY, CONTINUOUS FITODEZ AKERStart: 96-39-6369Vouwsoc blood reagent stripJean Pierre Barton Work Phone: Start: 09-07-4477Bjjqr of ammoniaFITO VELEZDAT Start: 18-58-9351Hbknrkx function panelSDIMA AKERStart: 86-61-2753Mbu routine ecg w/least 12 lds w/i&rSACHACORTA AKERStart: 75-67-2913PKS REPORT FITO AKERStart: 95-63-7896NVGVMWU PRECAUTIONSFITO AKERStart: 40-11-2780JURBV OXIMETRY, CONTINUOUSFITO AKERStart: 15-43-0938Dkpsr of ammoniaRepeter Patel Work Phone: Start: 78-18-9637Gvbbnvu function panelLizzeth Patel Work Phone: Start: 47-32-9909Shf routine ecg w/least 12 lds trcg only w/o i&rRnahum Patel Work Phone: Start: 03-77-7904GRQ REPORTHpf ScanningStart: 81-83-8654Eznbbquegpckpgo tricyclic other cyclicals 1 or 2SDIMA VELEZDAT Start: 88-54-2862Xjkpp of thyroid stimulating hormone tshFITO AKERStart: 27-38-5892Bpceexfmya glycosylated k9dVEAUNFITO AKERStart: 73-15-8601Loajwcf antibodiesFITO AKERStart: 64-55-0002Ftrbz panelSDIMA AKERStart: 83-74-2934Cicspaztofo direct measurement ldl cholesterolFITO AKERStart: 38-70-5134Jpchi misc pathSDIMA AKERStart: 88-72-9200JJNAOYS PRECAUTIONS FITO AKERStart: 76-63-7692USNWK WEIGHTSFITO AKERStart: 56-18-9742ZBANI OXIMETRY, CONTINUOUSFITO AKERStart: 12-50-6256Avoafhp blood reagent stripSDIMA AKERStart: 35-85-7736Rzleu of thyroid stimulating hormone tshsiljosephjoyce Chaim Work Phone: Start: 97-15-7808CAC-65 AUTOANTIBODYSrtrent Rucker Work Phone: Start: 84-11-7616Juedeyqmlp glycosylated n2wAgdetglm PopSCL Work Phone: Start: 29-15-2042Ytlmd panelSrijesus HadleySCL Work Phone: Start: 15-36-4047Icbtrzvrwnz direct measurement ldl cholesterolTj [employer] Work Phone: Start: 88-69-8020GAGLTTWBBQxqctqvm [employer] Work Phone: Start: 54-34-3010Oxfan count complete auto&auto difrntl wbcSACHACORTA MCtart: 17-21-7399Acvedwtbhxcwv metabolic panelSDIMA AKERStart: 05-55-3090SLLA CODESDIMA AKERStart: 04-71-6106GNCUCIDI OXYGEN THERAPY PROTOCOLSDIMA AKERStart: 07-11-7291TI CONSULT TO CASE MANAGEMENTFITO Garciart: 13-54-8787DNLHE CANNULA OXYGENSACHACORTA AKERStart: 89-99-9689OVESO/VASCULAR CHECKSSACHACORTA AKERStart: 12-34-4538TLKLKS PHYSICIAN (SPECIFY)FITO Garciart: 24-59-8046OQ EVAL AND TREATFITO Garciart: 41-36-2365XU EVAL AND TREATFITO VILLALOBOS Start: 28-63-8830MHRQJ OXIMETRY, CONTINUOUSSACHACORTA Garciart: 07-30-2020 REASON FOR NO MECHANICAL VTE PROPHYLAXISFITO Garciart: 53-55-0882GDMLYG AT BEDSIDEFITO Garciart: 46-80-5506DGJGJRW PRECAUTIONSSACHACORTA AKERStart: 8669NFFNNTKHF MONITORINGSACHACORTA Garciart: 00-15-4368ISIPT SIGNSSACHACORTA AKERStart: 97-34-2937Nsqncdl blood reagent stripComaisha Grubbs Work Phone: Start: 93-45-8920JSOTNHB STATUS (FROM ED OR OR/PROCEDURAL)FITO AKERStart: 24-54-0186Eifo screen class list Gerri Garciart: 22-54-5223Hqvxb of lactateFITO AKERStart: 76-92-6426MF CONSULT TO INTERNAL MEDICINESDIMA AKERStart: 43-63-2373Rqp routine ecg w/least 12 lds w/i&rSACHACORTA AKERStart: 07-54-0469RBG REPORTSDIMA AKERStart: 56-34-5955Hcmm screen class list aGeoffrey Garst Work Phone: Start: 35-52-3850Lwekgumscl exam chest single view FITO SALEHGLADYSYONATANdavidrt: 81-76-4021UOOBMTL PRECAUTIONSFITO Garciart: 02-28-4517Byqgb of lactateGebari Cho Work Phone: Start: 63-71-7194BATUM GAP (CALC) POCFITO VILLALOBOS Start: 93-99-1801Hoaiw count hemoglobinFITO AKERStart: 37-93-4997Xmnjvqz ionizedFITO AKERStart: 07-49-5151Tybcghtr other sourceSDIMA VILLALOBOS Start: 89-22-7716HNDKJIJHOX W/GFR POINT OF CAREFITO AKERStart: 52-31-4219Lkrs bld gluc mntr dev cleared fda spec home useSDIMA VILLALOBOS Start: 03-37-6943Wfgkflq blood reagent stripSDIMA SALEHGLADYSYONATANtart: 07-30-2020 LACTIC ACID,POINT OF CAREFITO AKERStart: 44-92-1663Antqytvzf serum plasma/whole bloodFITO VELEZMARLENYÁNGELAtart: 48-82-4829Jvoesj serum plasma or whole bloodFITO SALEHGLADYSYONATANtart: 76-84-6961JSKJCY BLOOD GAS, POINT OF CAREFITO SALEHGLADYSYONATANtart: 90-78-0962Wrgtfyyhdqipyhz tricyclic other cyclicals 1 or 2 FITO SALEHTOMASAÁNGELAdavidrt: 15-51-5073Ftugv of lipaseFITO SALEHGLADYSKASStart: 48-22-9121Pvidc count complete auto&auto difrntl wbcSACHACORTA INGRAMSStart: 18-83-9441Jejh tst prsmv instrmnt chem analyzers pr Brendan INGRAMSStart: 23-03-4039Oej routine ecg w/least 12 lds trcg only w/o i&rWaseem Kyle Work Phone: Start: 72-52-3964GJN REPORTHpf ScanningStart: 02-61-2889Qvnfpauhaz exam chest single viewGeoffrey Tammie Work Phone: [phone]: 29-96-7784PLMDJ GAP (CALC) POCPerezellen Freddy Work Phone: [phone]: 60-17-1995Bezlc count hemoglobinRazaellen Freddy Work Phone: [phone]: 64-59-2734ZGGXRDX, IONIC (POC)Peace Juan-Sandra Work Phone: [phone]: 92-40-9312Kurepzag [Moles/Vol]Malikkarina Freddy Work Phone: Start: 66-30-7874ANRIYYDRZK W/GFR POINT OF CAREPerezellen Juan-Sandra Work Phone: [phone]: 44-25-2731Htqs bld gluc mntr dev cleared fda spec home useRazan Freddy Work Phone: Start: 98-75-8811Mcrytdb blood reagent stripRazaellen Freddy Work Phone: [phone]: 03-22-8530SKWNXQ ACID,POINT OF CAREPerezellen Juan-Claires Work Phone: Start: 50-26-6331Dpvijgjap [Moles/Vol]Peace Juan-Sandra Work Phone: [phone]: 39-97-7897Nfrzsv [Moles/Vol]Peace Juan-Claires Work Phone: Start: 18-56-6073CNFDWO BLOOD GAS, POINT OF CARERazaellen Juan-Claires Work Phone: Start: 87-27-6848Ahvpb of lipaseGeoffrey Gar Work Phone: Start: 31-22-1003Lnqnt count complete auto&auto difrntl wbcGeoffrey Garst Work Phone: Start: 04-50-6283AFC SCR, BLD, EDGeoffrey Garst Work Phone: Start: 33-53-2379UGNQDNCIBCysuhual Garst Work Phone: Start: 07-30-2020 End: 82-03-2552Eif routine ecg w/least 12 lds trcg only w/o i&rGeoffrey Garst Work Phone: Start: 07-30-2020 End: 30-17-1955UFB REPORTHpf ScanningStart: 29-01-8132WYGPVWELC PATIENTSDIMA Josert: 93-87-1556CXQV CODESDIMA MCtart: 99-86-6441YOXGGUQ MONITORING CLOSE Q 15 MINUTESSAJoyce MCtart: 43-62-4305ASMJRUN CESSATION EDUCATIONSACHACORTA MCtart: 28-08-6277LQUOU SIGNSSACHACORTA MCtart: 69-78-8398UR CONSULT TO SOCIAL WORKSDIMA Josert: 61-94-6279AQTCRSU STATUS (FROM ED OR OR/PROCEDURAL)FITO MCtart: 46-17-5127CUNI GENERAL FITO Josert: 45-92-6487Uiddumpw bordetellaSACHACORTA MCtart: 45-18-2919Fsblj of acetaminophenSARAJoyce AKERStart: 92-19-0730Yyxry of ethanolSARAH MARIESStart: 18-10-7507Mkpyn of osmolality bloodSARAJoyce INGRAMSStart: 02-99-4434Vnjaf of salicylateSACHACORTA AKERStart: 77-03-7301Amfds of thyroid stimulating hormone tshSACHACORTA AKERStart: 07-98-2991Jwmrw metabolic panel calcium totalSACHACORTA INGRAMSStart: 02-26-2020 Blood count complete auto&auto difrntl wbcSACHACORTA INGRAMSStart: 02-37-2599Rtkk screen class list Gerri INGRAMSStart: 29-37-3000Xlptq dip stick/tablet rgnt auto w/o microscopyFITO INGRAMSStart: 22-24-2940Ogdkj gap [Moles/Vol] Vannessaamed Eltierarani Work Phone: Start: 40-41-8286Fzquu of acetaminophenMohamed Eldirani Work Phone: Start: 33-46-3948Uuwhn of ethanolMohamed Eldirani Work Phone: Start: 98-62-4013Fopzp of osmolality bloodMohamed Eldirani Work Phone: Start: 11-47-9613Ziqod of salicylateMohamed Eldirani Work Phone: Start: 31-31-8556Caogg of thyroid stimulating hormone tshMohamed Eldirani Work Phone: Start: 49-40-2897Tjpuq metabolic panel calcium total Corinne Moncadarani Work Phone: Start: 21-68-1169Votix count complete auto&auto difrntl wbcMohamed Eldirani Work Phone: Start: 37-34-4478Oinx screen class list aMohamed Eldirani Work Phone: Start: 09-53-0780Gaomj dip stick/tablet rgnt auto w/o microscopyMohamed Eldirani Work Phone: Start: 83-22-8768Hwzmxmmiys examination knee 3 views FITO SALEHTOMASASStart: 63-36-6071Hazkvubtpd examination knee 3 viewsFito Velezmarlenyana Work Phone: start: 79-94-4622CYPYJKOYUGLzzjv KavalauskasStart: 13-38-9319Yplkr bp <80 mm hgSarah Kavalauskas Work Phone: start: 83-93-5078UVWJUVWD Keren Villalobos Start: 66-22-5648Jchzkykshveet w/patient 30 minutesJeángel Dorantes Work Phone: start: 91-41-3821Va tobacco screen rcvd tlValeriano Villalobos Work Phone: Start: 49-26-0724Pg-focused hlth risk assmt score doc stnd instrLilliam Villalobos Work Phone: Start: 33-97-8536Wybc bp >/= 140 mm Sheyla Villalobos Work Phone: start: 04-84-7504wdqlgiqi berated, harassed, or intimidateKailey VillalobosNone (qualifier value)Joel JORGE NEGATED: Highlighted row has not occurred!Start: 02-14-2020H/O: surgeryFito Villalobos Plan of Treatment DateCare ActivityDetailAuthorStart: 50-52-3606UxpfupvjoOhiohealth Grant Medical Center Start: 72-98-3293DeisaqgdzWexner Medical Centertart: 16-71-0221Jnkyawta to clinical allergistKettering Health Behavioral Medical Center CenterStart: 42-06-4222NzccxnnrjWexner Medical Centertart: 80-12-8357Mqamuzvg admissionWexner Medical Centertart: 98-08-0945MfwbfyuehKettering Health Behavioral Medical Center CenterStart: 11-18-1511RusebzykiKettering Health Behavioral Medical Center CenterStart: 07-81-1460EjfixcaggKettering Health Behavioral Medical Center CenterStart: 94-83-6753Mcbrazbf to clinical allergistKettering Health Behavioral Medical Center CenterStart: 98-89-5974Vdoupprc to Social ServicesWexner Medical Centertart: 53-53-2142Ssnygiaf admissionKettering Health Behavioral Medical Center CenterStart: 22-17-9071JupcjazebWexner Medical Centertart: 08-04-2024 [facility] CenterStart: 23-15-8111Aleyopvs to clinical scrubber system attendant [facility] Centertart: 78-71-4691ZeyiqqrqpWexner Medical Centertart: 41-20-3492Gpmunxln to Social ServicesWexner Medical Centertart: 38-47-5454Xxcjyskd admissionWexner Medical Centertart: 50-89-7904ZzjraucezWexner Medical Centertart: 15-40-9778Yrazdol referral [facility] Work Phone: Start: 99-01-8649Eifpjeu referralOhiohealth Grant Medical Center Work Phone: Start: 99-39-0448Tusxspu referralOhiohealth Grant Medical Center Work Phone: Start: 35-20-8894ZGhB/Tdap/Td vaccine (7 - Td) DTaP/Tdap/Td vaccine (7 - Td)[facility] Hospitalart: 00-60-3731HcvhzajukWexner Medical Centertart: 28-27-7530PzI2x (Bld) [Mass fraction]A1C test (Diabetic or Prediabetic)[place], [place]YStholstein: 98-01-0698VjU3x (Bld) [Mass fraction]A1C test (Diabetic or Prediabetic)[facility]: 07-31-2021 Lipid panelLipid [facility]: 08-04-2020 End: 42-91-5352Zpulc metabolic 2000 panelBasic Metabolic Panel Lab Routine Toxic metabolic encephalopathy Expected: 08/04/2020, Expires: 08/01/2021[place], [place]Commclaren [place] on above:Expected: 08/04/2020, Expires: 08/01/2021tart: 52-92-8761Oupdmwakm [place], KYStart: 18-04-9906GC Knee 3 Views (73596)[facility] Work Phone: start: 97-96-3267DszgzxoeikxPygcpaPlunkett Memorial Hospital Work Phone: comment on above:Note: Please make a referral to: Start: 44-37-1546Baxqzmny microalbuminuria testDiabetic microalbuminuria test [facility]: 65-02-7245Seuyoslfihjmp (ACWY) vaccine (1 - 2-dose series)Meningococcal (ACWY) vaccine (1 - 2-dose series)[facility]: 01-70-9065OMM screeningHIV screenReg[facility] Hospital [facility]: 12-76-9918VRI vaccine (2 - Male 2-dose series)HPV vaccine (2 - Male 2-dose series)[facility]: 38-05-0587WHB vaccine (1 - Male 2-dose series)HPV vaccine (1 - Male 2-dose series)[facility]: 36-97-1741Sutnqmvn foot examinationDiabetic foot examRegency Hospital [facility]: 70-15-4870Aubpifpj retinal examDiabetic retinal examRegency Hospital [facility]: 2008 DTaP/Tdap/Td vaccine (1 - Tdap)DTaP/Tdap/Td vaccine (1 - Tdap)[facility]: 80-99-7548Uenyrqwkroom 0-64 years Vaccine (1 of 1 - PPSV23)Pneumococcal 0-64 years Vaccine (1 of 1 - PPSV23)[facility]: 09-04-2003 Hepatitis B vaccine (3 of 3 - Risk 3-dose series)Hepatitis B vaccine (3 of 3 - Risk 3-dose series)[facility]: 63-03-2910Opzhbrder B vaccine (3 of 3 - 3-dose primary series)Hepatitis B vaccine (3 of 3 - 3-dose primary series)[facility]: 99-48-8120Ceqfkyipp A vaccine (1 of 2 - 2-dose series)Hepatitis A vaccine (1 of 2 - 2-dose series)[facility]: 46-22-1519Vkilndr,Mumps,Rubella (MMR) vaccine (1 of 2 - Standard series) Measles,Mumps,Rubella (MMR) vaccine (1 of 2 - Standard series)[facility]: 78-37-9308Ovnadqgto vaccine (1 of 2 - 2-dose childhood series)Varicella vaccine (1 of 2 - 2-dose childhood series)[facility] HospitalDENITAStart: 2001 Hepatitis B vaccine (1 of 3 - 3-dose primary series)Hepatitis B vaccine (1 of 3 - 3-dose primary series)[facility], DENITABasi Metabolic Panel w/ Reflex to MGBasic Metabolic Panel w/ Reflex to MG Lab Routine Daily until discontinued starting 07/31/2020, 1 completedCleveland Clinic Marymount HospitalDENITAComted on above:Daily until discontinued starting 07/31/2020, 1 completedCalculated LDL cholesterol level [facility] CenterCBC auto differentialCBC auto differential Lab Routine Daily until discontinued starting 07/31/2020, 1 completedCleveland Clinic Marymount HospitalLarissa on above:Daily until discontinued starting 07/31/2020, 1 completed Chlamydia trachomatis DNA [Presence] in Unspecified specimen by HEIDY with probe detectionUniversity Hospitals Par[facility] Work Phone: cholesterol.total/Cholesterol in HDL [Mass Ratio] in Serum or PlasmaOhiohealth Grant Medical CenterComprehensive metabolic 2000 panel - Serum or PlasmaOhiohealth Grant Medical CenterContinuous pulse oximetryPulse oximetry, continuous Respiratory Care Routine Every 4hr until discontinued starting 07/31/2020[facility] HospitalLarissa on above:Every 4hr until discontinued starting 07/31/2020 End: 09-77-1034LKL-65 AUTOANTIBODYGAD-65 AUTOANTIBODY Lab Add-On One Time for 1 Occurrences starting 07/30/2020 until 07/30/2020[facility] HospitalDENITAComted on above:One Time for 1 Occurrences starting 07/30/2020 until 07/30/2020GAD-65 AUTOANTIBODYGAD-65 AUTOANTIBODY Lab Add-On 07/31/2020 12:26 AM EDAdena Regional Medical CenterDENITAGlucose measurement estimated from glycated hemoglobinOhiohealth Grant Medical CenterHemoglobin A1c/Hemoglobin.total in BloodOhiohealth Grant Medical CenterHEPATIC FUNCTION PANELHEPATIC FUNCTION PANEL Lab Routine Daily until discontinued starting 07/31/2020, 2 heavenCleveland Clinic Marymount HospitalLarissa on above:Daily until discontinued starting 07/31/2020, 2 completed End: 62-67-8887Syxnignuqqesi sendout 2Miscellaneous sendout 2 Lab Routine Once for 1 Occurrences starting 07/31/2020 until 07/31/2020[facility], [place] Comment on above:Once for 1 Occurrences starting 07/31/2020 until 07/31/2020 Miscellaneous sendout 2Miscellaneous sendout 2 Lab Routine 07/31/2020 12:26 AM EDTMKindred Healthcare, KYNasal Cannula oxygenNasal Cannula oxygen Respiratory Care Routine Daily until discontinued starting 07/30/2020[facility], KYComment on above:Daily until discontinued starting 07/30/2020Neisseria gonorrhoeae DNA [Presence] in Unspecified specimen by HEIDY with probe detectionKettering Health Behavioral Medical Center Ctr Work Phone: Oxygen therapy [Minimum Data Set]Initiate Oxygen Therapy Protocol Respiratory Care Routine Daily until discontinued starting 07/30/2020[facility], KYComment on above:Daily until discontinued starting 07/30/2020Patient EducationKettering Health Behavioral Medical Center Ctr Work Phone: Patient referralOhiohealth Grant Medical Center Work Phone: POCT GlucosePOCT Glucose Point of Care Testing STAT As Needed until discontinued starting 07/30/2020[facility], KYComment on above:As Needed until discontinued starting 07/30/2020 End: 04-92-9944MDTAIABXOCxpxg Health- [place], [place]Comment on above:One Time for 1 Occurrences starting 07/30/2020 until 07/30/2020TRASelect Medical [facility], [place], [place] Trichomonas vaginalis DNA [Presence] in Unspecified specimen by HEIDY with probe detectionKettering Health Behavioral Medical Center Ctr Work Phone: VLDL cholesterol measurementCoral Gables Hospital Immunizations Immunization DateImmunizationNotesCare OlaxqiulSlksyudp43-99-6825pkekusajv, seasonal, injectable, preservative freeAPRN Demetria Cifuentes Work Phone: [facility]08-31-2021SARS-CoV-2 (COVID-19) mRNA BNT-162b2 sungxPakay PATEL [facility]08-10-2021SARS-CoV-2 (COVID-19) mRNA BNT-162b2 Loerto PATEL [facility] Columbusgaetano Morrow DatePayer CategoryPayerPolicy [id number] BCBS - [place] PPO xxxxxxxxxxxx 2020-Present [address] [place], [place] [address]dslt,xxxxx [id number],HJPSW58-13-1737 UnknownBCBS BCBS - [place] PPO xxxxxxxxxxxx 2019-Present [address] [place], [place] [address]vmfnmhhewfeg [id number]80Sdcirqb [id number] 2.16.840.1.040589.3.140.1.83897.[id number] 2.16.840.1.463750.3.5[id number] 2.16840.1.899045.3.5[id number] 2.16840.1.240567.3.5[id number] 2.16.840.1.713409.3.57[id number] 2.16.840.1.799493.3.57[id number] 2.16.840.1.037415.3.57[id number] 2.16.840.1.953616.3.579.2.4[id number] 2.16.840.1.495639.3.57[id number] 2.16.840.1.726108.3.57[id number] 2..840.1.158845.3.57[id number] 2.16.840.1.699883.3.579.[id number] [id number] [id number] [id number]-[id number]-85z1-[id number] 2.0.1.3[id number] 2.840.1.088982.3.579.2.531 [id number] 2..1.9[id number] 2.0.1.7[id number] 2.0.1.597104.3.579.2.531 [id number] 2..1.574187.3.579.2.531 Social History DateTypeDetailFacilityAssertionSexually active (finding)[facility] Work Phone: assertionGender identity finding (finding)[facility] Work Phone: assertionExposure to pollution (event)[facility] Work Phone: assertionFinding of sexual orientation (finding)[facility] Work Phone: AssertionTobacco user (finding)[facility] Work Phone: Start: 08-01-2024 End: 48-95-5161Kbkbndh smoking statusUnknown if ever smokedOhiohealth Grant Medical CenterAssertionProblem situation relating to social and personal history (finding)[facility] Work Phone: AssertionEmotional stress (finding)[facility] Work Phone: [phone] (finding)[facility] Work Phone: AssertionExecutive Urology of [facility] Health BellevueAssertionVictim status (finding)[facility] Work Phone: AssertionVictim of child abuse (finding)[facility] Work Phone: AssertionFinding relating to drug misuse behavior (finding)[facility] Work Phone: AssertionHeterosexual (finding)[facility] Work Phone: AssertionLives with relatives (finding)[facility] Work Phone: AssertionVictim of child neglect (finding)[facility] Work Phone: AssertionVictim of physical abuse (finding)[facility] Work Phone: BssertionSingle person (finding)[facility] Work Phone: NqgzpvbrmNakp-djky employment (finding)[facility] Work Phone: Sex Assigned At BirthNot on [facility] [place] Start: 02-27-2020 End: 06-66-0837Lsbaybh smoking status NHISCurrent every day smokerCleveland Clinic [facility] Hospital, KYHistory of tobacco useCigarette SmokerCleveland Clinic [facility] Hospital, KYStart: 02-27-2020 End: 57-01-3139Nbnxwnwjtj smoked current (pack per day) - ReportedCleveland Clinic Mary[facility] Hospital, KYHistory of tobacco useChews TobaccoCleveland Clinic [facility] Hospital, KYStholstein: 02-27-2020 End: 27-49-0132Owarwlw intakeCurrent drinker of alcohol (finding)[facility], KYStholstein: 47-74-1526Zamzdea SDOH Alcohol Irejftlto4LkvpsCleveland Clinic Marymount Hospital, KYStart: 19-69-5109Mpnvecy SDOH Alcohol Std Iqbdlg2PsjawCleveland Clinic [facility] Hospital, KYExposure to SARS-CoV-2 (event)Unable to assessC[facility] Clinic [facility], KYStart: 82-94-1929Cgasibi use and exposureFormer userCleveland Clinic Marymount Hospital, KYExposure to SARS-CoV-2 (event)Not sureC[facility] Clinic [facility], [facility]: 94-10-3451Kkp [facility]igned At [facility]ex Assigned At [facility] Hospitaltart: 25-87-6419Kiedoxd smoking status NHISNever smoked tobacco (finding)[facility]ertart: 04-25-2024 End: 89-70-1077Kvvqbej smoking statusSmoker (finding)[facility] BellevueStart: 01-05-2025 End: 20-58-0212IxaAnwz (finding)[facility] CenterNEGATED: Highlighted rowAssertionCurrent drinker of alcohol (finding)[facility] Work Phone: NEGATED: Highlighted rowAssertionFinding relating to drug misuse behavior (finding)[facility] Work Phone: NEGATED: Highlighted rowAssertionHealth Partners [facility] Hospital Work Phone: NEGATED: Highlighted rowAssertionCriminal behavior (finding)[facility] Work Phone: NEGATED: Highlighted rowAssertionInadequate food diet (finding)[facility] Work Phone: NEGATED: Highlighted rowAssertionTobacco user (finding)[facility] Work Phone: NEGATED: Highlighted rowAssertionExposure to pollution (event)[facility] Work Phone: Medical Equipment Procedure CodeEquipment CodeEquipment Original TextEquipment IdentifierDates Blood Sugar Diagnostic (Freestyle Precision Jorge Strips) stripStart: 03-03-2024 Blood Sugar Diagnostic (Freestyle Precision Jorge Strips) stripStart: 03-03-2024 End: 19-65-2368Cjv Needle, Diabetic (Bd Ultra-Fine Micro Pen Needle) 32 gauge x 1/4 needleStart: 68-39-8971Rwijx Sugar Diagnostic (Freestyle Precision Jorge Strips) stripStart: 03-03-2024 End: 69-96-1646Aad Needle, Diabetic (Bd Ultra-Fine Micro Pen Needle) 32 gauge x 1/4 needleStart: 13-87-8564Jpiay Sugar Diagnostic (Freestyle Precision Jorge Strips) stripStart: 03-03-2024 End: 90-97-7094Knh Needle, Diabetic (Bd Ultra-Fine Micro Pen Needle) 32 gauge x 1/4 needleStart: 25-08-6816Pbltv Sugar Diagnostic (Freestyle Precision Jorge Strips) stripStart: 03-03-2024 End: 04-73-0844Cjxzh Sugar Diagnostic stripStart: 98-68-8791Tkx Needle, Diabetic (Bd Ultra-Fine Micro Pen Needle) 32 gauge x 1/4 needleStart: 01-04-3541Pmqpj Sugar Diagnostic (Freestyle Precision Jorge Strips) stripStart: 03-03-2024 End: 69-03-9208Kknkw Sugar Diagnostic stripStart: 78-25-3571Koq Needle, Diabetic (Bd Ultra-Fine Micro Pen Needle) 32 gauge x 1/4 needleStart: 53-89-7762Izqzr Sugar Diagnostic (Freestyle Precision Jorge Strips) stripStart: 03-03-2024 End: 37-89-3505Wopbg Sugar Diagnostic stripStart: 44-81-2768Ldt Needle, Diabetic (Bd Ultra-Fine Micro Pen Needle) 32 gauge x 1/4 needleStart: 35-21-3871Fbgad Sugar Diagnostic (Freestyle Precision Jorge Strips) stripStart: 03-03-2024 End: 50-61-1752Uaour Sugar Diagnostic (Freestyle Precision Jorge Strips) strip Start: 03-03-2024 End: 80-58-8793Svnfv Sugar Diagnostic stripStart: 06-29-2024 End: 04-28-9644Xgm Needle, Diabetic (Bd Ultra-Fine Micro Pen Needle) 32 gauge x 1/4 needleStart: 06-29-2024 End: 04-05-2025 Goals DatePatient GoalDesired Activity/State Functional Status JtufFkzjzwboqcJxdpheXymqnxmf28-93-7657Jzfujgbmsj statusPatient at Baseline [facility] Work Phone: [phone]uit statusPatient Not at Baseline [facility] Work Phone: [phone] statusPatient at Baseline [facility] Work Phone: [phone] statusPatient at Baseline [facility] Work Phone: [phone] StatusN/AExecutive Urology of [facility] Vandana Mental Status KkhtHrecwxvqpjChmuwlTgzmibyx98-02-6500Eypuchlxt functionCognitive Status Patient at BaselineK[facility] Work Phone: [phone] functionCognitive Status Patient Not at BaselineUniversity Hospitals [facility] Work Phone: [phone] functionCognitive Status Patient at BaselineUniversity [facility] Work Phone: [phone] functionCognitive Status Patient at BaselineUniversity Hospitals [facility] Work Phone: Cognitive functionCognitive functioning was normal Cognitive function finding (finding)[facility] Work Phone: Clinical Notes 09-29-2022 to 04-04-2025 Note Date & LqkfTflfHtoezuai67-03-1769 Progress note Author Ceferino Edwards [facility] CenterNote Date/TimeJune 2024 2:58pm[place] [address] Psychiatry Progress Note Signed Patient: Tracie Ramirez MR#: [id number] : 2000 Acct:[id number] Age/Sex: 25 / M Adm Date: 5 Loc: 1S Room: [address] [place] [address] Type : ADM IN Attending Dr: Blue Talbot MD Copies to: ~ Date of Service: 04/04/2025 Subjective Subjective Narrative: Mr. Ramirez is a 25 year old male on day 4 of hospitalization for SI. Today, pt presented as anxious. He was denied from [facility] but was accepted at two other programs. [...] <Electronically signed by Ceferino Edwards MD> 04/04/25 8043 [facility] Work Phone: 1(485) 344-307706-10-2025 Progress noteStephen V[place] [id number] Psychiatry Progress Note Signed Patient: Tracie Ramirez MR#: [id number] : 2000 Acct:[id number] Age/Sex: 25 / M Adm Date: 5 Loc: 1S Room: [address] [place] [address] Type : ADM IN Attending Dr: Blue Talbot MD Copies to: ~ Date of Service: 04/04/2025 Subjective Subjective Narrative: Mr. Ramirez is a 25 year old male on day 4 of hospitalization for SI. Today, pt presented as anxious. He was denied from [facility] but was accepted at [...] MD 04/04/25 1040 Signed By: 04/04/25 1458 [facility]06-09-2025 Progress note Author Ceferino Edwards [facility] CenterNote Date/TimeJune 2024 3:35pm[place] [address] Psychiatry Progress Note Signed Patient: Tracie Ramirez MR#: [id number] : 2000 Acct:[id number] Age/Sex: 25 / M Adm Date: 5 Loc: 1S Room: [address] [place] [address] Type : ADM IN Attending Dr: Blue [...] <Electronically signed by Ceferino Edwards MD> 04/03/25 9150 [facility] Work Phone: 1(732) 110-240906-09-2025 Progress noteStephen [place] [id number] Psychiatry Progress Note Signed Patient: Tracie Ramirez MR#: [id number] : 2000 Acct:[id number] Age/Sex: 25 / M Adm Date: 5 Loc: 1S Room: [address] [place] [address] Type : ADM IN Attending Dr: Blue [...] Edwards MD 04/03/25918 Signed By: 04/03/25 1535 [facility]06-08-2025 Consult note Author Rola Valdes [facility] CenterNote Date/TimeJune 2024 8:09[place] [id number] Hospitalist Consult Note Signed Patient: Tracie Ramirez MR#: [id number] : 2000 Acct:[id number] Age/Sex: 25 / M Adm Date: 5 Loc: Room: [address] [place] [address] Type: ADM IN Attending Dr: Blue Talbot MD Copies to: MD Demetria Hastings APRN, EMERGENCY DEPARTMENT Rola Valdes APRN NO FAMILY PHYSICIAN Dayan Perrin MD~ HPI DATE OF CONSULTATION: 04/01/25 REQUESTING PROVIDER: Blue Talbot Consult Narrative Reason for Consult: Hypertriglyceridemia, diabetes HPI: This is a 25-year-old male past medical history significant for hypertriglyceridemia, insulin-dependent diabetes, obesity, depression. Presented to [facility] last evening with suicidal ideation and depression. Transferred to [facility] for ongoing psychiatric management. Hospitalist team is [...] noted below or in HPI [facility] Medical History Chronic pain of [...] scheduled aspart -labs in AM, labs from [place] unreportable secondary to lipophilic Depression -further plan of care per inpatient psychiatric team for psychoactive medication management/ adjustment and psychotherapy Documented By: Rola Valdes, TALENT DEVELOPMENT MANAGER 05/19 1630 Signed By: <Electronically signed by HAILEE Valdes> 04/01/25 1631 <Electronically signed by Dayan Perrin MD> 04/02/25 0809 [facility] Work Phone: 1(980) 177-297406-08-2025 Progress note Author Blue guerrero [facility] CenterNote Date/TimeJune 2024 6:39[place] [address] Psychiatry Progress Note Signed Patient: Tracie Ramirez MR#: [id number] : 2000 Acct:[id number] Age/Sex: 25 / M Adm Date: 5 Loc: 1S Room: [address] [place] [address] Type : ADM IN Attending Dr: Blue [...] [facility] [place] [place] Continue current med regimen Monitor mental status Encourage group participation and psychotherapy Documented By: Blue Talbot MD 5 0636 Signed By: <Electronically signed by Blue Talbot MD> 04/02/25 0639 [facility] Work Phone: 1(201) 664-583006-08-2025 [place] [address] Hospitalist Consult Note Signed Patient: Tracie Ramirez MR#: [id number] : 2000 Acct:[id number] Age/Sex: 25 / M Adm Date: 5 Loc: Room: [address] [place] [address] Type: ADM IN Attending Dr: Blue Talbot MD Copies to: MD Demetria Hastings APRN, EMERGENCY DEPARTMENT Rola Valdes APRN NO FAMILY PHYSICIAN Dayan Perrin MD~ HPI DATE OF CONSULTATION: 04/01/25 REQUESTING PROVIDER: Blue Talbot Consult Narrative Reason for Consult: Hypertriglyceridemia, diabetes HPI: This is a 25-year-old male past medical history significant for hypertriglyceridemia, insulin-dependent diabetes, obesity, depression. Presented to [facility] last evening with suicidal ideation and depression. Transferred to [facility] for ongoing psychiatric management. Hospitalist team is [...] noted below or in HPI [facility] Medical History Chronic pain of [...] 1630 Signed By: 04/01/25 1631 04/02/25 0809 [facility]06-08-2025 [place] [address] Psychiatry Progress Note Signed Patient: Tracie Ramirez MR#: [id number] : 2000 Acct:[id number] Age/Sex: 25 / M Adm Date: 5 Loc: 1S Room: [address] [place] [address] Type : ADM IN Attending Dr: Blue [...] [facility] [place] [place]. Continue current med regimen Monitor mental status Encourage group participation and psychotherapy Documented By: Blue Talbot MD 5 0636 Signed By: 04/02/25 0639 [facility]06-07-2025 History and physical note Author Blue guerrero [facility] CenterNote Date/TimeJune 2024 2:29[place] [address] Psychiatry H&P Signed Patient: Tracie Ramirez MR#: [id number] : 2000 Acct:[id number] Age/Sex: 25 / M Adm Date: 5 Loc: Room: [address] [place] [address] Type: ADM IN Attending Dr: Blue Talbot [...] are scheduled prior to discharge. [facility] Medical History (Updated 04/01/25 @ [...] psychotherapy Documented By: Blue Talbot MD 5 6103 Signed By: <Electronically signed by Blue Talbot MD> 04/01/25 5121 [facility] Work Phone: 1(367) 837-826206-07-2025 History and physical [place] [id number] Psychiatry H&P Signed Patient: Tracie Ramirez MR#: [id number] : 2000 Acct:[id number] Age/Sex: 25 / M Adm Date: 5 Loc: Room: [address] [place] [address] Type: ADM IN Attending Dr: Blue Talbot [...] are scheduled prior to discharge. [facility] Medical History (Updated 06/07/25 @ [...] MD 5 1143 Signed By: 04/01/25 1429 [facility]03-13-2025 Evaluation note* Diagnosis Onset Date Resolution Status Admit Date Depression acuteMarch 2024 4:51pmDM (diabetes mellitus)acuteMarch 2024 4:51pm HyperlipidemiaacuteMarch 2024 4:51pmHypertriglyceridemiaacuteMarch 2024 4:51pmNoncomplianceacuteMarch 2024 4:51pmDepression with suicidal ideationresolvedMarch 2024 4:51pm [facility] Work Phone: 1(105) 925-686603-13-2025 Evaluation note* Diagnosis Onset Date Resolution Status Admit Date Depression acuteMarch 2024 4:51pmDM (diabetes mellitus)acuteMarch 2024 4:51pm HypertriglyceridemiaacuteMarch 2024 4:51pmNoncomplianceacuteMarch 2024 4:51pmDepression with suicidal ideationresolvedMarch 2024 4:51pm HyperlipidemiaresolvedMarch 2024 4:51pmBipolar disorderacuteJune 2024 12:58pmDiabetic polyneuropathyacuteJune 2024 12:58pmHypertriglyceridemia acuteJune 2024 12:58pmNoncomplianceacuteJune 2024 12:58pmUncontrolled diabetes mellitusacuteJune 2024 12:58pm [facility] Work Phone: 1(357) 824-603810-10-2024 Consult note Author Mauricio White [facility] August 04, 2024 9:47amNote Date/TimeOctober 2023 4:13[place] [address] Hospitalist Consult Note Signed Patient: Tracie Ramirez MR#: [id number] : 2000 Acct:[id number] Age/Sex: 24 / M Adm Date: 4 Loc: Room: [address] [place] [address] Type: ADM IN Attending Dr: Blue Talbot MD Copies to: MD Demetria Hastings APRN, EMERGENCY DEPARTMENT HAILEE Dickens, DO~ HPI DATE OF CONSULTATION: [...] Neut % (Auto) 59.5, Lymph % (Auto) 34.6,[place] % (Auto) 4.6, Eos % (Auto) 0.7, Baso % (Auto) 0.6, Nucleat RBC Rel Count 0.3, Neut # (Auto) 5.1, Lymph # (Auto) 3.0, [place] # (Auto) 0.4, Eos # (Auto) 0.1, [...] imaging -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 Type 2 [...] signed by Mauricio White DO> 08/04/24 0947 [facility] Work Phone: 1(453) 114-531910-10-2024 Progress note Author Blue guerrero [facility] August 04, 2024 8:38amNote Date/TimeOct2023 8:38[place] [id number] Psychiatry Progress Note Signed Patient: Tracie Ramirez MR#: [id number] : 2000 Acct:[id number] Age/Sex: 24 / M Adm Date: 4 Loc: 1S Room: [address] [place] [address] Type : ADM IN Attending Dr: Blue Talbot MD Copies to: ~ Date of Service: 08/04/2024 Subjective Subjective Narrative: Mr. Ramirez said he feeling better. He is trying to find proper aftercare plans. Patient stated that he has been going through several stressors. He was recentlylaid off and broke up with GF. He is working with his caser up on finding proper aftercare plans. MSE Appearance: [...] signed by Blue Talbot MD> 08/04/24 0838 [facility] Work Phone: 1(341) 856-253310-09-2024 Progress note Author Blue guerrero [facility] August 03, 2024 6:54amNote Date/TimeOctober 2023 6:51amStephen [place] [id number] Psychiatry Progress Note Signed Patient: Tracie Ramirez MR#: [id number] : 2000 Acct:[id number] Age/Sex: 24 / M Adm Date: 4 Loc: 1S Room: 0Z9047-8 Type : ADM IN Attending Dr: Blue [...] signed by Blue Talbot MD> 08/03/24 0654 [facility] Work Phone: 1([phone]) 950-722610-08-2024 History and physical note Author Blue guerrero [facility] August 02, 2024 6:45amNote Date/TimeOct2023 11:35[place] [address] Psychiatry H&P Signed Patient: Tracie Ramirez MR#: [id number] : 2000 Acct:[id number] Age/Sex: 24 / M Adm Date: 4 Loc: Room: [address] [place] [address] Type: ADM IN Attending Dr: Blue Talbot MD Copies to: MD Demetria Hastings APRN, EMERGENCY DEPARTMENT~ Date of Service: 08/02/2024 HPI History of [...] never here. We have 1 note about [place] [facility] Past suicide attempts: He endorses 1 [...] stimuli. Insight: limited Judgment: limited [facility] Medical History PTSD (post-traumatic stress [...] Appearance Clear Urine pH 6.0 Ur Specific Aguila 1.034 H Urine Protein 20 H Urine [...] signed by Blue Talbot MD> 08/02/24 0645 [facility] Work Phone: 1(592) 749-141907-01-2024 Hospital Discharge instructions Patient Education 04/25/2024 11:57:14 [...] require a prescription. You can also purchase nzvs-ybs-sciyivi medicines. Medicines may have nicotine in them [...] and encouragement. Call telephone quitlines, such as 2-722-HDKU-NOW, reach out to support groups, or work [...] provider. Document Revised: 10/03/2022 Document Reviewed: 10/03/2022 [employer] Patient Education 2022 [employer]. 04/25/2024 11:56:01 Vasectomy, Care After Vasectomy, Care [...] Follow these instructions at home: Medicines Take thup-ykd-sntznli and prescription medicines only as told by [...] provider. Document Revised: 02/28/2021 Document Reviewed: 02/28/2021 [employer] Patient Education 2022 [employer]. 04/25/2024 11:56:01 Vasectomy Vasectomy Vasectomy is a [...] including vitamins, herbs, eye drops, creams, and ihou-kqg-cirevzi medicines. Any problems you or family members [...] provider tells you to take them. ?Taking ogma-amr-mzdhnqd medicines, vitamins, herbs, and supplements. You may [...] provider. Document Revised: 02/28/2021 Document Reviewed: 02/28/2021 [employer] Patient Education 2022 [employer]. Follow Up Care 12/07/2023 14:35:43 With:JORGE GALINDO, Joel Barber, URL Address: [facility] [address] , [place] [address]- [id number] When: Unknown Comments:sched vasectomy [facility] 02-09-2024 Evaluation note* Encounter Date Diagnosis [...] (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 (ICD-10 - Z79.4) [facility] Other 12-22-2023 Evaluation note* Encounter Date Diagnosis [...] with his PCP to restart these medications. [facility] Other 12-05-2022 Evaluation note* Encounter Date Diagnosis [...] Z72.51) Sep,therSexually transmitted infections material was printed [facility] Other evaluation + Plan note Future Appointments Appointment Date:05/27/2024 09:00:00 AM Scheduled Provider: Location:[facility] Appointment Type:Urology CALL PAT FT Appointment Date:05/31/2024 10:00:00 AM Scheduled Provider: Location:[facility] Appointment Type:Urology FT Appointment Date:06/13/2024 09:30:00 AM Scheduled Provider:Joel PATEL MD Location:[facility] Appointment Type:URO Office Visit [facility] evaluation noteNo assessment information available [facility] Work Phone: evaluwrkbj note* Diagnosis Onset Date Resolution Status Bronchitis acuteDM (diabetes mellitus)acute [facility] Work Phone: evaluation note* Diagnosis Onset Date Resolution Status Bronchitis acuteAcute adjustment disorder with anxietyacuteChronic back painacuteChronic pain of left kneeacuteDepressionacuteDM (diabetes mellitus)acuteHyperlipidemia acuteNeuropathyacuteCellulitis of neckacuteChronic back painacuteChronic pain of left kneeacute [facility] Work Phone: evaluation note* Diagnosis Onset Date Resolution Status DM (diabetes mellitus) acuteNeuropathyacute [facility] Work Phone: evaluation note* Diagnosis Onset Date Resolution Status Acute adjustment disorder with anxiety acuteADHDacuteChronic back painacuteDM (diabetes mellitus)acuteHyperlipidemia acuteNeuropathyacuteNoncomplianceacuteADHDacuteChronic back painacuteNeuropathy acuteNoncomplianceacute [facility] Work Phone: evaluation note* Diagnosis Onset Date Resolution Status Acute adjustment disorder with anxiety acuteADHDacuteChronic back painacuteDM (diabetes mellitus)acuteHyperlipidemia acuteNeuropathyacuteNoncomplianceacuteADHDacuteChronic back painacuteNeuropathy acuteNoncomplianceacuteChronic back painacuteDepression with suicidal ideation acuteDM (diabetes mellitus)acuteHypertriglyceridemiaacute [facility] Work Phone: Evaluation note* Diagnosis Onset Date Resolution Status Admit Date Depression acuteMarch 2024 4:51pm [facility] Work Phone: History general Narrative - Reported* Type Description Date Medical History DM (diabetes mellitus) [facility] Other Hisiivf general Narrative - Reported* Type Description Date Medical History DM (diabetes mellitus) Medical HistoryArthritis [facility] Other Hospital course Narrative No data available for this section [facility] Hospital Discharge instructions No data available for this section [facility] Hospital Discharge instructionsAmbulatory Orders* Referral to Endocrinology Location: None Selected [facility] Work Phone: Hospital Discharge instructions Additional Instructions Rest Avoid electronics Return here if any problems persist or worsenUniversity [facility] Work Phone: Progress note No data available for this section [facility] Reason for Referral No Reason for [...] adult Open Access - [facility] Findings Encounter Date Cannabis abuse - episodic Established Patient with Sofi Dorantes [facility] 02/14/2020 Mood disorders, NOS Established Patie nt with Sofi Dorantes [facility] 02/14/2020 Nicotine dependence Established Patie nt with Sofi Dorantes [facility] 02/14/2020 Post-traumatic stress disorder Establ ished Patient with Sofi Dorantes [facility] 02/14/2020 Diabetes Risk Test Score was four score 02/14/2020 Open Access - [facility]2020 F31.31 - Bipolar disorder, c urrent episode depressed, mild Open Access - [facility]/14/2020 M25.562 - Pain in left knee Open Access - [facility]2020 Morbid obesity Open Access - Establ ished with Fito PaulalinegladyspaulEn[facility] 02/14/2020 Z68.41 - Body mass index (BM I) 40.0-44.9, adult Open Access - Established [facility]/14/2020 Diagnosis Left knee pain, unspecified chronicity [...] - 08/01/2020 9:58 PM EDT Discharged to [facility] via [facility]. All personal belongings given. * Kamille Rea RN - 08/01/2020 6:58 PM EDT Called [facility] at [phone]. Spoke with Gabriela to let her know that pt's COVID test was negative. They will contact [facility] for transport.Pt will be going to room 226-2. * Lluvia Jones RCP - 08/01/2020 6:15 PM EDT RAPID Covid 19 swab taken from right nare, labeled, placed in red dot bag, and handed off to [facility] worker outside of room for transport to laboratory per hospital policy and procedure. Patient tolerated procedure fairly well. * Lizzeth Patel MD - 08/01/2020 3:45 PM EDT Patient seen and examined in his room. No acute events overnight. Labs reviewed. Afebrile and hemodynamically stable. Patient medically cleared for transfer to [facility] Lizzeth Patel MD PGY-2, Internal Medicine Resident [facility] 08/01/2020 3:49 PM * Kamille Rea RN - 08/01/2020 3:[address] Anderson has a note in for patient. Note is in incomplete tab. Plan is to admit to inpatient psychiatric unit. [facility] sent to medical to review pt for clearance to transfer. * Del Rcuker MD - 08/01/2020 7:48 AM EDT [facility] Internal Medicine Teaching Residency Program Inpatient Daily Progress Note Patient: Tracie Ramirez Date of : 2000 Acct: [id number] Room: [address] [place] [place] [address] Admit date: 07/30/2020 Today's date: 08/01/20 Number [...] will see the pt at 5pm. 08/01/2020 [employer] slipped Psychiatry consult today unable to see [...] resolved hospital problems. * Intentional medication overdose [employer] slipped Serial EKG bradycardia to sinus rhythm. [...] Rucker MD Internal Medicine Resident, PGY- 1 [facility]; [place], [place] 08/01/2020, 7:48 AM Associated attestation - [...] is going to pink slip patient. Patricia PE TEACHER sent acouple of messages in regards to [...] 08/03/2020 at 11:00 am. This is through [facility] [place] [facility]. The office number is [phone]. The fax number for the practice is [phone]. Information was provided by patient's mother. * Del Rucker MD - 07/31/2020 6:30 AM EDT [facility] Internal Medicine Teaching Residency Program Inpatient Daily Progress Note Patient: Tracie Ramirez Date of : 2000 Acct: [id number] Room: 0447/0447-01 Admit date: 07/30/2020 Today's date: [...] Rucker MD Internal Medicine Resident, PGY- 1 [facility]; [place], [place] 07/31/2020, 6:30 AM Associated attestation - [...] Lizzeth Patel MD PGY-2, Internal Medicine Resident [facility], [place] 07/31/2020 4:40 AM documented in this encounter [...] Complaint Amb Documentation cough, congestion Amb [facility]ation [facility] d/cReason for VisitBronchitis DM (diabetes mellitus) Chief Complaint Amb Documentation cough, congestion Amb Documentation [facility] d/c check upReason for VisitBronchitis Acute [...] section and content) DATE CREATED AUTHOR 03/11/2020 [facility] DATE CREATED AUTHOR AUTHOR'S ORGANIZ ATION 08/14/2020 [facility] DATE CREATED AUTHOR AUTHOR'S ORGANIZ ATION 04/25/2022 [facility] DATE CREATED AUTHOR AUTHOR'S ORGANIZ ATION 02/02/2023 [facility] DATE CREATED AUTHOR AUTHOR'S ORGANIZ ATION 03/06/2023 [facility] [employer] DATE CREATED AUTHOR AUTHOR'S ORGANIZ ATION 12/01/2023 [facility] DATE CREATED AUTHOR AUTHOR'S ORGANIZ ATION 04/22/2025 [facility] DATE CREATED AUTHOR AUTHOR'S ORGANIZ ATION 05/03/2025 [facility] DATE CREATED AUTHOR AUTHOR'S ORGANIZ ATION 05/13/2025 [facility] [place] DATE CREATED AUTHOR AUTHOR'S ORGANIZ ATION 05/29/2025 [facility] Reason for Visit (unrecogniz ed section and content) ReasonCommentsIngestionStatusReasonSpecialtyDiagnoses / ProceduresReferred By ContactReferred To Contact Diagnoses Suicide attempt by multiple drug overdose, initial encounter (HCC) Suicide attempt by multiple drug overdose, initial encounter (HCC) Marixa Degroot MD [address] [facility] Care Teams (unrecognized sec tion and [...] MDOther ProviderActiveStart: January 06, 2025 Gabriela Montanez PE TEACHER-COther ProviderActiveStart: January 06, 2025 Veronica Danielle , [...] Status: Inactive Member Role Status Dates Services [facility] Primary Care Provider Ac tive Start: February 17, 2025 End: February 17Olya Hernandez ProviderActiveStart: February 17, 2025 End: February 17, 2025 Team Status: Inactive Member Role Status Dates Kris Gross MD Attending Provider Active St art: March 31, 2025 End: March 31, 2025 Team Status: Active Member Role Status Dates Demetria Cifuentes APRN PE TEACHER-C Primary Care Provider Active Start: March 31, 2025 Katarina Hastingsending ProviderActiveStart: March 31, 2025 Team Status: Inactive Member Role Status Dates PHYSICIAN [facility] Primary Care Provider Active Start: March 31, [...] Nettles , RNOther ProviderActiveStart: April 01, 2025 Aliica Rivas RNOther ProviderActiveStart: April 01, 2025 Annamarie [...] MDOther ProviderActiveStart: April 01, 2025 Gabriela Montanez PE TEACHER-COther ProviderActiveStart: April 01, 2025 Veronica Danielle , [...] Inactive Member Role Status Dates Lynn Olivas PE TEACHER-C Attending Provider Active Team Status: Active Member Role Status Dates Demetria Cifuentes APRN PE TEACHER-C Primary Care Provider Active Team Status: Inactive Member Role Status Dates Lynn Olivas PE TEACHER-C Attending Provider Active S tart: October 16, 2023 End: October 16, 2023 Team Status: Active Member Role Status Dates PHYSICIAN NO FAMILY Primary Care Provider Active Start: December 08, 2023 Carolina Capone ProviderActiveStart: December 08, 2023 Team Status: Inactive Member Role Status Dates Demetria Cifuentes APRN PE TEACHER-C Primary Care Provider Active Start: December 112023 End: December 11OLIVA McqueenCAttencurtis ProviderActiveStart: December 11, 2023 End: December 11, 2023 Team Status: Active Member Role Status Dates PHYSICIAN NO FAMILY Primary Care Provider Active Start: December 08, 2023 Carolina Gill LPNAtpam ProviderActiveStart: December 08, 2023 Team Status: Active Member Role Status Dates Demetria Cifuentes APRN PE TEACHER-C Primary Care Provider Active Start: December 222023 VICTORIANO MarlowAAtpam ProviderActiveStart: December 22, 2023 Team Status: Inactive Member Role Status Dates Demetria Cifuentes APRN PE TEACHER-C Primary Care Provider, Attending Provider Active Start: February 15, 2024 End: February 15, 2024 Team Status: Inactive Member Role Status Dates Demetria Cifuentes APRN PE TEACHER-C Primary Care Provider, Attending Provider Active Start: March 03, 2024 End: March 03, 2024 Team Status: Inactive Member Role Status Dates Demetria Cifuentes APRN PE TEACHER-C Primary Care Provider, Attending Provider Active Start: June 29, 2024 End: June 29, 2024 Team Status: Inactive Member Role Status Dates Demetria Cifuentes APRN PE TEACHER-C Primary Care Provider, Attending Provider Active Start: July 27, 2024 End: July 27, 2024 Team Status: Active Member Role Status Dates Demetria Cifuentes APRN PE TEACHER-C Primary Care Provider Active Start: August 01, 2024 Anastacio Zhu ProviderActiveStart: August 01, 2024 Matthew Hastings Provider, Attending ProviderActiveStart: August 01, 2024 Team Status: Inactive Member Role Status Dates Demetria Cifuentes APRN PE TEACHER-C Primary Care Provider Active Start: August 01, 2024 End: August 04lexAnastacoi Willis ProviderActiveStart: August 01, 2024 End: August [...] Member Role Status Dates Demetria Cifuentes APRN PE TEACHER-C Primary Care Provider Active Start: August 02, [...] Team Status: Active Member Role Status Dates [facility] Primary Care Provider Ac tive Team Status: Active Member Role Status Dates Demetria Cifuentes APRN PE TEACHER-C Primary Care Provider Active Start: January 05, [...] BE BASED ON THE PRIMARY CLINICAL RECORDS. [email or web address] provides no warranty or guarantee of the accuracy or completeness of information in this document.
--- OUTSIDE RECORDS SUMMARY | 2025-09-30 15:34 | XMS_ITS | Clinical Summary ---
Author Organization [facility] Address [address] [place] [address] Care Team Providers Care Broiler Supervisor Name Role Phone Unallocated, Noms Provider Primary [...] Blood Gluc Sensor (FreeStyle Viktor 3 Sensor) [facility] [place] Indications:Type 2 diabetes mellitus with hyperglycemia, with long-term current use of insulin (HCC)Inject 1 Device under the skin every 14 (fourteen) days 6 each ctive Continuous Blood Gluc Format Proofreader (FreeStyle Viktor 3 [place]) device Indications:Type 2 diabetes mellitus with hyperglycemia, with long-term current use of insulin ([facility])1 Device See administration instructions 1 each 12/29/2023ctive Blood Glucose Monitoring Suppl (Hey, Neighbor!) w/Device kit Indications:Type 2 diabetes mellitus with hyperglycemia, with long-term current use of insulin ([facility])fsbs 1 kit 12/29/2023ctive Active Problems ProblemNoted DateDiagnosed DateHyperosmolar (nonketotic) coma12/29/2023 Ahqkycnafvmwgymvodum51/05/2024Type 2 diabetes mellitus with hyperglycemia, with long-term current use of tzkxofc5311/30/2023 Assessment & Plan (12/30/2023 8:53 PM EST): [...] without complication, with long-term current use of smpbopz4205/25/2023 Assessment & Plan (11/30/2023 9:27 PM EST): [...] DateResolved DateHyperglycemia due to type 2 diabetes [id number] Family History Medical HistoryRelationNameCommentsDiabetesFather's SisterDiabetesMaternal GrandmotherDiabetesMotherDiabetesMother's BrotherDiabetesMother's [...] drinks on one occasion?Never05/25/2023HQ-2AnswerDate RecordedPatient Health Questionnaire-2 [id number] and Gender InformationValueDate RecordedSex Assigned at BirthNot on fileLegal QroNbdx3903/13/2023 3:06 PM EDTGender IdentityNot on file Sexual OrientationNot on file Last Filed Vital Signs Vital SignReadingTime TakenCommentsBlood Xtshmyfl629/8812/29/2023 3:49 PM EST Ycnyn578712/29/2023 3:49 PM NUKXsbnqjoprcy05 ??C (96.8 ??F)12/29/2023 3:49 PM EST Respiratory Rate--Oxygen Kunicslstf26%12/29/2023 3:49 PM ESTInhaled Oxygen Concentration--Jmdbmm580 kg (247 lb 6.4 oz)12/29/2023 3:49 PM EHBLkrjza726.7 cm (5' 8 )12/29/2023 3:49 PM ESTBody Mass Index37.62012/29/2023 3:49 PM EST Plan of Treatment Health MaintenanceDue DateLast DoneCommentsDiabetes: Retinopathy Screening 2011Pneumococcal Vaccine: Pediatrics (0 to 5 Years) and At-Risk Patients (6 to 64 Years) (1 of 2 - PCV)2020Diabetes: Hemoglobin A1C02/28/2024 11/30/2023iabetes: Urine Protein Lzugwsqhq25/06/056771/OVID-19 Vaccine ( season)/, 06/04/2021Influenza Vaccine (#1) 2025 Procedures Procedure NamePriorityDate/TimeAssociated DiagnosisCommentsMICROALBUMIN / CREATININE URINE FOEGRNbffiou28/06/2024 9:39 AM EST Depression, unspecified depression type Anxiety Type 2 diabetes mellitus without complication, without long-term current use of insulin (HCC) POCT GLYCOSYLATED HEMOGLOBIN (HGB A1C)Yhcswta9411/30/2023 4:28 PM EST Type 2 diabetes mellitus without complication, without long-term current use of insulin ([facility]) from Last 3 Months or Most Recently Relevant to Health Maintenance Results * (ABNORMAL) Microalbumin / creatinine urine ratio (12/01/2023 9:39 AM EST) ComponentValueRef RangeTest MethodAnalysis TimePerformed AtPathologist SignatureCREATININE, RANDOM [id number] - 320 mg/dLQUESTALBUMIN, URINE9.5See Note: mg/dLQUESTComment: Reference [...] specimen obtained by clean catch procedure / Kpvfnpj8912/01/2023 9:39 AM EST12/01/2023 9:39 AM EST Narrative [facility] - 12/02/2023 11:58 AM EST FASTING:YES FASTING: YES Resulting Agency Comment Performing Organization Information ?Site ID: QPT ?Name: [facility] ?Address: [address] [place] [address], [address] [place] [id number] ?Director: Allan Walker MD Authorizing ProviderResult TypeResult StatusDiane Aguilar ITZEL URINE ORDERABLES Final ResultPerforming OrganizationAddressCity/State/ZIP CodePhone Number [facility] * (ABNORMAL) POCT glycosylated hemoglobin (Hb A1C) docked device (11/30/2023 4:28 PM EST)ComponentValueRef RangeTest MethodAnalysis TimePerformed At Pathologist SignatureHemoglobin A1C11.0Specimen (Source)Anatomical Location / LateralityCollection Method / VolumeCollection TimeReceived TimeBloodVenous blood specimen / Vdnzjwx2511/30/2023 4:28 PM EST Narrative Authorizing ProviderResult TypeResult StatusJoseline Tee DOPOINT OF CARE TEST ENTER/EDIT ORDERABLESFinal Result from Last 3 Months or Most Recently Relevant to Health Maintenance Insurance Care Teams Team MemberRelationshipSpecialtyStart DateEnd Date Unallocated, Noms MD Cali [address] [place] [address] PCP - GeneralFamily Medicine12/29/23
[2025-09-30 15:36] LABS: Acetaminophen <2.0 ug/mL (10.0-30.0)
[2025-09-30 17:54] LABS: Glucose Urine UA >=1000 mg/dL (NEGATIVE)
[2025-09-30 18:02] LABS: Cast Seen? NONE SEEN #/LPF (NONE SEEN); Crystals Seen? None Seen #/HPF (None Seen)
[2025-09-30 18:04] LABS: Cannabinoid Screen Urine POSITIVE (NEGATIVE); Methamphetamines Screen Urine NEGATIVE (NEGATIVE); Tricyclic Antidepressant Urine NEGATIVE (NEGATIVE)
[2025-09-30 18:06] VITALS: BP 143/87; PULSE 104; O2SAT 97
[2025-09-30 22:10] VITALS: BP 125/85; PULSE 95; O2SAT 96
[2025-09-30] MEDS: ACETAMINOPHEN 500 MG TABLET 1000 MG PO (22:22)
== END 2025-09-30 22:45 ==
PROVIDERS: Emergency Provider Emergency Medicine
DX: F31.9 Bipolar disorder, unspecified (principal); T50.996A Underdosing of other drugs, medicaments and biological substances, initial encounter; Z91.128 Patient's intentional underdosing of medication regimen for other reason
CPT/HCPCS: 36415; 80048; 80179; 80307; 80320; 80329; 81001; 85025; 93005; 99285

== ENCOUNTER 2025-10-06 02:19 | Emergency (ER) | payer MEDICAID, SELFPAY ==
--- OUTSIDE RECORDS SUMMARY | 2024-12-27 08:00 | XMS_ITS ---
Author Organization [facility] es Address [address] [place] [address] Care Team Providers Care Asset Management Coordinator Name Role Phone Arian Yun Primary Care Provider [phone] REASON FOR VISIT 4 week f/u meds Encounters Encounter Location Date Provider Diagnosis [facility] [address] [place] [address] 12/27/2024 Arian Yun Plan Of Treatment No Information Progress Notes * TRACIE LOTTDOB:2000 ([age] yo M)Acc No.[id number]:12/27/2024 Progress Notes Patient: TRACIE CASTILLO :?CAMERON BraggOB:2000???Age:24 Y???Sex: MaleDate:12/27/2024Phone:[phone]:[address] [place], [place] Subjective: * Chief Complaints: * 4 week f/u meds Billing Information: * Procedure Codes: * Electronic signature of Arian Yun DO, [id number] on 10/06/2025 at 03:45 AM ESTSign off status: Pending * Provider: Ricarda Yun DO Date: 0 12/27/2024 Generated for Printing/Faxing/eTransmitting on:?10/06/2025 03:45 AM EST
--- OUTSIDE RECORDS SUMMARY | 2024-12-30 08:15 | XMS_ITS ---
Author Organization [facility] es Address [address] [place] [address] Care Team Providers Care Terrazzo Supervisor Name Role Phone Arian Yun Primary Care Provider Shanique Berry [phone] REASON FOR VISIT NEW PT Medications Medication SIG (Take, Route, Frequency, Duration) Notes Start Date End Date Status Pen [place] 31G X 5 MM Miscellaneous as directed for insulin injections 4 times daily; Duration: 100 days 5ActiveNicotine Polacrilex 4 MG Lozenge1 lozenge as needed Mouth/Throat every 3 hours PRN; Duration: 30 days505/5ActiveFreeStyle Viktor 3 Plus Sensor - Miscellaneousapply as directed every 14 days for glucose monitoring; Duration: 28 days5ActivetraZODone HCl 150 MG Tablet1 tablet at bedtime Orally Once a day; Duration: 30 days5ActiveEscitalopram Oxalate 10 MG Tablet1 tablet Orally Once a day; Duration: 30 daysActive lamoTRIgine 25 MG Tablet1 tablet Orally twice a day; Duration: 30 daysActive Prazosin HCl 2 MG Capsule1 capsule at bedtime Orally Once a day; Duration: 30 daysActiveHumaLOG KwikPen 100 UNIT/ML Solution Pen-injectorper sliding scale, max 72 units daily Subcutaneous three times a day; Duration: 30 daysActiveLantus SoloStar 100 UNIT/ML Solution Pen-xzbfyfsv48 units Subcutaneous once a day; Duration: 30 daysActivemetFORMIN HCl 1000 MG TabletOral; Duration: 90 DaysActive Encounters Encounter Location Date Provider Diagnosis [facility] [address] [place] [address] 12/30/2024 Shanique Berry Plan Of Treatment No Information Progress Notes * TRACIE LOTTDOB:2000 ([age] yo M)Acc No.[id number]:12/30/2024 Behavioral Health Patient: TRACIE CASTILLO :?Shanique BerryDOB:2000???Age:24 Y???Sex:Male Date:12/30/2024Phone:[phone]:ARPIT BRAVO, [facility]Toi: Arian Yun Subjective: * Chief Complaints: * N EW PT * Medications: T akingmetFORMIN HCl 1000 MG Tablet Oral Lantus SoloStar 100 UNIT/ML Solution Pen-injector 36 units Subcutaneous once a day HumaLOG KwikPen 100 UNIT/ML Solution Pen-injector per sliding scale, max 72 units daily Subcutaneous three times a day Prazosin HCl 2 MG Capsule 1 capsule at bedtime Orally Once a day lamoTRIgine 25 MG Tablet 1 tablet Orally twice a day Escitalopram Oxalate 10 MG Tablet 1 tablet Orally Once a day traZODone HCl 150 MG Tablet 1 tablet at bedtime Orally Once a day FreeStyle Viktor 3 Plus Sensor - Miscellaneous apply as directed every 14 days for glucose monitoring Nicotine Polacrilex 4 MG Lozenge 1 lozenge as needed Mouth/Throat every 3 hours PRN , stop date 02/27/2025Pen [place] 31G X 5 MM Miscellaneous as directed for insulin injections 4 times daily Taking metFORMIN HCl 1000 MG Tablet Oral Taking Lantus SoloStar 100 UNIT/ML Solution Pen-injector 36 units Subcutaneous once a day Taking HumaLOG KwikPen 100 UNIT/ML Solution Pen-injector per sliding scale, max 72 units daily Subcutaneous three times a day Taking Prazosin HCl 2 MG Capsule 1 capsule at bedtime Orally Once a day Taking lamoTRIgine 25 MG Tablet 1 tablet Orally twice a day Taking Escitalopram Oxalate 10 MG Tablet 1 tablet Orally Once a day Taking traZODone HCl 150 MG Tablet 1 tablet at bedtime Orally Once a day Taking FreeStyle Viktor 3 Plus Sensor - Miscellaneous apply as directed every 14 days for glucose monitoring Taking Nicotine Polacrilex 4 MG Lozenge 1 lozenge as needed Mouth/Throat every 3 hours PRN , stop date 02/27/2025Taking Pen [place] 31G X 5 MM Miscellaneous as directed for insulin injections 4 times daily Billing Information: * Procedure Codes: * Electronic signature of OLIVIA Holbrook on 10/06/2025 at 03:45 AM ESTSign off status: Pending * Provider: Daniel Berry Date: 0 12/30/2024 Generated for Printing/Faxing/eTransmitting on:?10/06/2025 03:45 AM EST
--- OUTSIDE RECORDS SUMMARY | 2025-01-04 04:02 | XMS_ITS | Continuity of Care Document ---
Author Organization [facility] Address [address] [place] [address] Phone Care Team Providers Care Client Service Representative Name Role Phone Jules Ramirez DO Unavailable Unavailable Allergies, Adverse Reactions, Alerts Substance Reaction Status Criticality No Known Allergies Active No Inform ation Medications Medication Instructions Dosage Effective Dates (start - stop) Status Comments Lexapro 20 mg tablet 1 daily for depression - Active Lantus Solostar U-100 Insulin 100 unit/mL (3 mL) subcutaneous pen inject 30-60 units daily as instructed by physician - Active ibuprofen 800 mg tablet take 1 tablet by oral route 3 times every day with food 800 MG - Active lancets 1 lancet QID - Active Ple ase fill with [facility] MICRO THIN LANCETS metformin 1,000 mg tablet take 1 tablet by oral route 2 times every day with morning and evening meals 1000 MG - Active pen needle, diabetic 31 gauge x 5/16 inject 1 milliliter by subcutaneous route every day 1 milliliter - Active Alcohol Wipes use with glucose testing or insulin injection - Active Procedures Procedure Date OFFICE/OUTPATIENT VISIT, EST HEMOGLOBIN A1C LEVEL > 9.0% DIAST BP 80-89 MM HG SYST BP < 130 MM HG MED LIST DOCD IN [facility] RVW MEDS BY RX/DR IN [facility] OFFICE/OUTPATIENT VISIT, NEW DIAST BP 80-89 MM HG SYST BP < 130 MM HG PT TOBACCO USE DONE RCVD TLK ROUTINE VENIPUNCTURE High Risk Prophylaxis Adult Nutrit Couns For Control Of [place] Dis Aug Oral Hygiene Instruction Intraoral-complete Series (bw) Comp Oral Eval New/estab Patient 2023 Oral Hygiene Instruction Advance Directives Directive Yes / No Effective Date File Name No Information Encounters Encounter Description Practice Location Reason(s) For Visit Diagnoses Date Provider Providers Copied on Encounter [facility], [address] [place] [address], [id number] , tel:+ [phone] [facility] No Information 5 Plank DO Jules. [address] [place] [address], [id number] , [place]. tel: [phone] [facility], [address] [place] [address], [id number] , [place] tel: [phone] [facility] No Information 4 Plank DO Jules. [address] [place] [address], [id number] , [place]. tel:+ [phone] OFFICE/OUTPAT IENT VISIT, EST [facility], [address] [place] [address], [id number] , [place] tel: [phone] [facility] f/u DM (chief complaint) depression f/u (chief complaint) Depression, unspecifiedMixed hyperlipidemiaType 2 diabetes mellitus with hyperglycemiaBody mass index [BMI] 39.0-39.9, adult 4 Plank DO Jules. [address] [place] [address], [id number] , [place]. tel: [phone] OFFICE/OUTPAT IENT VISIT, [place], [address] [place] [address], [id number] , tel: [phone] [facility] Establish Care (chief complaint) Lab Draw (chief complaint) Body mass index [BMI] 39.0-39.9, adultMixed hyperlipidemiaType 2 diabetes mellitus with diabetic dermatitisScreening for HIV (human immunodeficiency virus)Need for hepatitis B screening test 4 James Camacho. [address] [place] [address], [id number] , [place]. tel:+ [phone] [facility], [address] [place] [address], [id number] , [place] tel: [phone] Dental Clinic pa (chief complaint) Encounter for screening for dental disorders 4 Riley Perry. [address], [place], [id number] , [place]. tel:+ [phone] [facility], [address] [place] [address], [id number] , [place] tel:+ [phone] Dental Clinic dn (chief complaint) Encounter for screening for dental disorders 4 Riley Perry. [address] [place] [address], [id number] , [place]. tel:+ [phone] Family History Family Member Type Diagnosis Age At Onset No Information Immunizations Vaccine Date Status Comments Fluarix/Flulaval refused Source: New Immunization Record Influenza, split virus, trivalent, PF administered Source: Other Regist ry COVID-19, mRNA, LNP-S, PF, 30 mcg/0.3 mL dose administered Source: Other Regist ry COVID-19, mRNA, LNP-S, PF, 30 mcg/0.3 mL dose administered Source: Other Regist ry Payers Payer name Insurance type Covered libertarian ID Authoriza tion(s) [employer] Medicaid [facility] [id number] [id number] Medicaid [facility] [id number] D [employer] Medicaid [employer] [facility] [id number] [id number] D Medicaid Wrap - [facility] [id number] Social History Type Description Quantity Date Captured Comments Alcohol Use Details Unknown Caffeine Use Details Unknown Tobacco Use Status Smoking Status No Information Sex Male Sexual Orientation Straight or heterosexual Aug Gender Identity Male Chief Complaint And Reason For Visit No Information Reason For Referral Reason For Referral No Information Plan Of Treatment Date Type Action Status Goal Dilated eye exam. Due on Dec due Goal PRAPARE ASSESSMENT. Due on due Goal Tdap. Due on due Goal RLP. Due on due Goal Influenza vaccine. Due on Oc due Goal Hepatitis C screening. Due o n due Goal Lipid panel. Due on due Goal Foot exam. Due on due Goal Pneumococcal vaccine. Due on due Goal Hep B (1st). Due on due Goal Dental exam. Due on due Goal Hemoglobin A1C. Due on due Goal Tdap Vaccine. Due on 2024 due Goal Urine microalbumin. Due on due Goal ASCVD 10 year risk. Due on due Goal Unhealthy drug use screening . Due on due Goal Depression screening. Due on due Goal Tdap. Due on due Goal Hepatitis C screening. Due o n due Goal Influenza vaccine. Due on due Goal Depression screening. Due on due Goal Unhealthy drug use screening . Due on due Goal Lipid panel. Due on due Goal RLP. Due on due Goal Tdap Vaccine. Due on 2023 due Goal PRAPARE ASSESSMENT. Due on due Goal Dental exam. Due on due Goal Dilated eye exam. Due on Sep due Goal ASCVD 10 year risk. Due on due Goal Hemoglobin A1C. Due on due Goal Pneumococcal vaccine. Due on due Goal Urine microalbumin. Due on due Goal Hep B (). Due on due Goal Foot exam. Due on due Goal Lipid panel. Due on due Goal Dilated eye exam. Due on Sep due Goal Influenza vaccine. Due on due Goal Depression screening. Due on due Goal Tdap Vaccine. Due on 2023 due Goal Foot exam. Due on due Goal Urine microalbumin. Due on due Goal Pneumococcal vaccine. Due on due Goal ASCVD 10 year risk. Due on due Goal Dental exam. Due on due Goal Hemoglobin A1C. Due on due Goal Hep B (). Due on due Goal RLP. Due on due Goal PRAPARE ASSESSMENT. Due on due Goal Hep A. Due on e Goal Hepatitis C screening. Due o n due Goal Unhealthy drug use screening . Due on due Goal Tdap. Due on due Goal Tobacco cessation counseling completed Goal Lifestyle education regardin g diet completed Goal ASCVD 10 year risk. Due on due Goal Dental exam. Due on due Goal Urine microalbumin. Due on due Goal Hep B (). Due on due Goal Foot exam. Due on due Goal Dilated eye exam. Due on Sep due Goal Pneumococcal vaccine. Due on due Goal Tdap Vaccine. Due on 2023 due Goal Hep A. Due on Goal Lipid panel. Due on due Goal Tdap. Due on due Goal Unhealthy drug use screening . Due on due Goal PRAPARE ASSESSMENT. Due on due Goal Influenza vaccine. Due on due Goal Depression screening. Due on due Goal RLP. Due on due Goal Hepatitis C screening. Due o n due Goal Tobacco cessation counseling completed Goal Tobacco cessation counseling completed Goal Lifestyle education regardin g diet completed Goal Hep A. Due on du e Goal Unhealthy drug use screening . Due on due Goal RLP. Due on due Goal Influenza vaccine. Due on No due Goal Tdap Vaccine. Due on 2023 due Goal Hepatitis C screening. Due o n due Goal PRAPARE ASSESSMENT. Due on N ov due Goal Depression screening. Due on due Goal Tdap. Due on due Goal Influenza vaccine. Due on No due Goal Hepatitis C screening. Due o n due Goal Tdap Vaccine. Due on 2023 due Goal PRAPARE ASSESSMENT. Due on N due Goal RLP. Due on due Goal Tdap. Due on due Goal Unhealthy drug use screening . Due on due Goal Depression screening. Due on due History Of Present Illness Encounter Date Complaint History Of Prese nt Illness f/u DM Pt is here for f /u DM. He denies new issues or concerns. He states he was diagnosed with diabetes at 19 but was told he has probably had it for awhile. Pt c/o numbness/tingling in his hands. He states that the strips and lancets that were sent in were incorrect and needs new ones sent in. Pt declines flu vaccine today. Pt requesting referral for eye doctor. Requesting to go [facility]. He does c/o blurred vision. ANGELO Saravia depression f/u Pt is also reque sting something for depression. He denies current thoughts of suicide or plan. He states that its always in the back of his mind but nothing that he plans on acting on. ANGELO Saravia Lab Draw Lab draw RAC, 2x 2 and bandage applied. patient tolerated well.//ANGELO Almaguer Establish Care Patient is here to establish care. Patient recently moved from [place]. Patient hasn't seen a PCP in roughly 6 months. Patient has a history of depression, anxiety, high cholesterol, diabetes, and back pain. Patient states his main concern is getting insulin and getting medication for anxiety/depression. Patient denies wanting the flu vaccination today. Patient admits to smoking cigarettes, roughly 2 packs per day. Patient denies any alcohol or drug use.//ANGELO Almaguer yael conley dn dn Functional Status Date Functional Assessmen t No Information Instructions Date Instruction Additional Infor johnny Giving encouragement to exercise Related to Body mass index [BMI] 39.0-39.9, adult Lifestyle education regarding di et Related to Body mass index [BMI] 39.0-39.9, adult Giving encouragement to exercise Related to Body mass index [BMI] 39.0-39.9, adult Lifestyle education regarding di et Related to Body mass index [BMI] 39.0-39.9, adult Assessments Type Assessment Date No Information Patient Care Teams Name Effective Dates (start - stop) Status Members No Information
--- OUTSIDE RECORDS SUMMARY | 2025-01-12 03:15 | XMS_ITS ---
Author Organization [facility] es Address [address] [place] [address] Care Team Providers Care Brass Reclaimer Name Role Phone Arian Yun Primary Care Provider Rose Larsen Unavailable [phone] REASON FOR VISIT est care; depression, suicidal thoughts Encounters Encounter Location Date Provider Diagnosis [facility] [address] [place] [address] 01/12/2025 Rose Larsen Plan Of Treatment No Information Progress Notes * TRACIE LOTTDOB:2000 ([age] yo M)Acc No.[id number]:01/12/2025 Behavioral Health Patient: TRACIE CASTILLO :?Rose Larsen CNPDOB:2000???Age:24 Y ???Sex:MaleDate:01/12/2025Phone:[phone]:[address] [id number]:Arian Yun Subjective: * Chief Complaints: * E st care; depression, suicidal thoughts Billing Information: * Procedure Codes: * Electronic signature of OLIVIA Grant on 10/06/2025 at 03:45 AM ESTSign off status: Pending * Provider: Gerardo Larsen CNP Date: 0 01/12/2025 Generated for Printing/Faxing/eTransmitting on:?10/06/2025 03:45 AM EST
--- OUTSIDE RECORDS SUMMARY | 2025-03-21 03:45 | XMS_ITS ---
Author Organization [facility] es Address [address] [place] [address] Care Team Providers Care Parking Supervisor Name Role Phone Arian Yun Primary Care Provider [phone] REASON FOR VISIT 1m recheck Encounters Encounter Location Date Provider Diagnosis [facility] [address] [place] [address] 03/21/2025 Arian Yun Plan Of Treatment No Information Progress Notes * TRACIE LOTTDOB:2000 ([age] yo M)Acc No.[id number]:03/21/2025 Progress Notes Patient: TRACIE CASTILLO :?CAMERON BraggOB:2000???Age:25 Y???Sex: MaleDate:03/21/2025Phone:[phone]:[address] [place] Subjective: * Chief Complaints: * 1 m recheck Billing Information: * Procedure Codes: * Electronic signature of Arian Yun DO, [id number] on 10/06/2025 at 03:45 AM ESTSign off status: Pending * Provider: Ricarda Yun DO Date: 0 03/21/2025 Generated for Printing/Faxing/eTransmitting on:?10/06/2025 03:45 AM EST
--- OUTSIDE RECORDS SUMMARY | 2025-03-21 05:30 | XMS_ITS ---
Author Organization [facility] es Address [address] [place] [address] Care Team Providers Care Quality Control Microbiologist Name Role Phone Arian Yun Primary Care Provider Shanique Berry [phone] REASON FOR VISIT bh new pt: suicidal thoughts and tendancies. Encounters Encounter Location Date Provider Diagnosis [facility] [address] [facility] [place] [address] 03/21/2025 Shanique Berry Plan Of Treatment No Information Progress Notes * OREN TRACIEDOB:2000 ([age] yo M)Acc No.[id number]:03/21/2025 Behavioral Health Patient: TRACIE CASTILLO :?Shanique BerryDOB:2000???Age:25 Y???Sex:Male Date:03/21/2025Phone:[phone]:[address] [place]Prp: Arian Yun Subjective: * Chief Complaints: * B h new pt: suicidal thoughts and tendancies. * Electronic signature of OLIVIA Holbrook on 10/06/2025 at 03:44 AM ESTSign off status: Pending * Provider: Daniel Berry Date: 0 03/21/2025 Generated for Printing/Faxing/eTransmitting on:?10/06/2025 03:44 AM EST
--- OUTSIDE RECORDS SUMMARY | 2025-03-22 10:00 | XMS_ITS ---
Author Organization [facility] es Address [address] [place] [address] Care Team Providers Care Underwear Hemmer Name Role Phone Arian Yun Primary Care Provider Fern Bhat [phone] REASON FOR VISIT 1 month f/u bh Encounters Encounter Location Date Provider Diagnosis [facility] [address] [place] [address] 03/22/2025 Fern Bhat Plan Of Treatment No Information Progress Notes * TRACIE LOTTDOB:2000 ([age] yo M)Acc No.[id number]:03/22/2025 Behavioral Health Patient: TRACIE CASTILLO :?Fern BhatDOB:2000???Age:25 Y???Sex: MaleDate:03/22/2025Phone:[phone]:[address], [place]Eej: Arian Yun Subjective: * Chief Complaints: * 1 month f/u bh * Electronic signature of OLIVIA Land on 10/06/2025 at 03:44 AM EST Sign off status: Pending * Provider: Shelly Bhat Date: 0 03/22/2025 Generated for Printing/Faxing/eTransmitting on:?10/06/2025 03:44 AM EST
--- OUTSIDE RECORDS SUMMARY | 2025-10-03 07:30 | XMS_ITS | Continuity of Care Document ---
Author Organization [facility] Address [address] [place] [address] Phone Care Team Providers Care Die Drawing Checker Name Role Phone Demetria Cifuentes APRN Primary Care Provider Blue Talbot MD Attending Provider [phone] NO FAMILY, PHYSICIAN Primary Care Provider Unava ilable Ceferino Edwards MD Admit Provider Ceferino Edwards MD Attending Provider Ceferino Edwards MD Other Provider Yane Kaur RN Other Provider Unavailable Tiffanie Genao RN Other Provider Unavailable Ria Leach RN Other Provider Unavailable Latasha Nettles RN Other Provider Unavailable Alicia Rivas RN Other Provider Unavailable Annamarie Whitten RN Other Provider Unavailable Juan M Beltran MD Other Provider Amber Dillon DO Other Provider Delano Vicente MD Other Provider Von Roberts DO Other Provider Flex Govea MD Other Provider Sunshine Couch MD Other Provider Mauricio Alcazar DO Other Provider Unavailab Ari Stinson MD Other Provider Unavailable Rola Valdes APRN Other Provider Aryan Santos MD Other Provider [phone] Helen Hernandez MD Other Provider Unavailable Leti Tucker MD Other Provider [phone] Mauricio White DO Other Provider Nubia Dhaliwal MD Other Provider Panchito Ferro MD Other Provider Gabriela Montanez DYE MIXER-C Other Provider [phone] Veronica Danielle APRN Other Provider Unavailable Raemsh Garcia MD Other Provider Oz Carrillo MD Other Provider Adry Weeks MD Other Provider Unavailable Escobar Jones DO Other Provider [phone] Lynnette Garcia [employer] Other Provider [phone] Manohar Carter DO Other Provider Dayan Perrin MD Other Provider Iza Finley [employer] Other Provider [phone] Hanna Correa [employer] Other Provider [phone] Wilfred Moreno MD Other Provider Unavailable Hudson Turner MD Other Provider [phone] JermaineMadayaaron DO Other Provider Darius Pena MD Other Provider Blair Ni MD Other Provider Mesha Vasquez APRN Other Provider Unavailable Xiomy Rocha MD Other Provider Emeka Cantor MD Other Provider [phone] Ari Hazel MD Other Provider Wale Beck MD Other Provider Nicolasa Cramer [employer] Other Provider [phone] Nathaniel Garcia [employer] Other Provider Luis Anaya MD Other Provider [phone] Manuel Marie DO Other Provider Saloni Curiel RN Other Provider Unavailable Care Teams Patient Care Team Team Status: Active Member Role/Relationship Status Dates PHYSICIAN NO FAMILY Primary Care Provider Active Visit Care Team Team Status: Active Member Role/Relationship Status Dates Demetria Cifuentes APRN DYE MIXER-C Primary Care Provider Active Start: September Blue Talbot , MDAttending ProviderActiveStart: September 30, 2025 Visit Care Team Team Status: Active Member Role/Relationship Status Dates PHYSICIAN NO FAMILY Primary Care Provider Active Start: September 30, 2025 Ceferino Edwards MDAdmit ProviderActiveStart: September 30, 2025 Ceferino Edwards MDAttending ProviderActiveStart: September 30, 2025 Ceferino Edwards MDOther ProviderActiveStart: September 30, 2025 Yane Kaur , RNOther ProviderActiveStart: September 30, 2025 Tiffanie Genao , RNOther ProviderActiveStart: September 30, 2025 Ria Leach , RNOther ProviderActiveStart: September 30, 2025 Latasha Nettles , RNOther ProviderActiveStart: September 30, 2025 Alicia Rivas , ANGELOOther ProviderActiveStart: September 30, 2025 Annamarie Whitten , ANGELOOther ProviderActiveStart: September 30, 2025 Juan M Beltran MDOther ProviderActiveStart: September 30, 2025 Amber Dillon , DOOther ProviderActiveStart: September 30, 2025 Delano Vicente MDOther ProviderActiveStart: September 30, 2025 Von Roberts , DOOther ProviderActiveStart: September 30, 2025 Flex Govea MDOther ProviderActiveStart: September 30, 2025 Sunshine Couch MDOther ProviderActiveStart: September 30, 2025 Mauricio Alcazar , DOOther ProviderActiveStart: September 30, 2025 Ari Blackmon MDOther ProviderActiveStart: September 30, 2025 Rola Valdes , APRNOther ProviderActiveStart: September 30, 2025 Aryan Santos MDOther ProviderActiveStart: September 30, 2025 Helen Hernandez MDOther ProviderActiveStart: September 30, 2025 Leti Tucker MDOther ProviderActiveStart: September 30, 2025 Mauricio White , Other ProviderActiveStart: September 30, 2025 Nubia Dhaliwal MDOther ProviderActiveStart: September 30, 2025 Panchito Ferro MDOther ProviderActiveStart: September 30, 2025 Gabriela Montanez , DYE MIXER-COther ProviderActiveStart: September 30, 2025 Veronica Danielle , APRNOther ProviderActiveStart: September 30, 2025 Ramesh Garcia MDOther ProviderActiveStart: September 30, 2025 Oz Carrillo MDOther ProviderActiveStart: September 30, 2025 Adry Weeks MDOther ProviderActiveStart: September 30, 2025 Escobar Jones , DOOther ProviderActiveStart: September 30, 2025 Lynnette Garcia , APRNOther ProviderActiveStart: September 30, 2025 Manohar Carter , DOOther ProviderActiveStart: September 30, 2025 Dayan Perrin MDOther ProviderActiveStart: September 30, 2025 Iza Finley , APRNOther ProviderActiveStart: September 30, 2025 Hanna Correa , APRNOther ProviderActiveStart: September 30, 2025 Wilfred Moreno MDOther ProviderActiveStart: September 30, 2025 Hudson Turner MDOther ProviderActiveStart: September 30, 2025 Karrie Dean , DOOther ProviderActiveStart: September 30, 2025 Darius Pena MDOther ProviderActiveStart: September 30, 2025 Blair Ni MDOther ProviderActiveStart: September 30, 2025 Mesha Vasquez , APRNOther ProviderActiveStart: September 30, 2025 Xiomy Rocha MDOther ProviderActiveStart: September 30, 2025 Emeka Cantor MDOther ProviderActiveStart: September 30, 2025 Ari Hazel MDOther ProviderActiveStart: September 30, 2025 Wale Beck MDOther ProviderActiveStart: September 30, 2025 Nicolasa Cramer , APRNOther ProviderActiveStart: September 30, 2025 Nathaniel Garcia , APRNOther ProviderActiveStart: September 30, 2025 Luis Anaya MDOther ProviderActiveStart: September 30, 2025 Manuel Marie DOOther ProviderActiveStart: September 30, 2025 Saloni Curiel RNOther ProviderActiveStart: September 30, 2025 Chief Complaint and Reason for Visit Chief Complaint Admit Date BH September 30, 2025 8 :39am Schizoaffective September 30, 2025 1 1:08pm Reason for Visit Admit Date Bipolar disorder September 30, 2025 1 1:08pm Diabetic polyneuropathy September 30 11:08pm Hypertriglyceridemia September 30, 2025 11:08pm Noncompliance September 30, 2025 1 1:08pm Uncontrolled diabetes mellitus September 30, 2025 11:08pm Reason for Referral Type Reason(s) Provider Provider Contact Information [facility] Address Start Date Call for transportation to appointments.Go to urgent care with any urgent medical concerns.Call for transportation to appointments.[employer] Phone: Case manager it security will call you on the next business day between 8am & 5pm. If you miss this call please call back as soon as possible.[facility] Phone: [phone] [place] [phone] to urgent care with any urgent medical concerns.[facility] Urgent Care [facility] Phone: [phone] [facility] [id number] Allergies, Adverse Reactions, Alerts Allergen Type Severity Reaction Last Updated Verified Status No Known Allergies Allergy Unknown February 17, 2025 8:32pmYesActive Social History Smoking Status Status Start Date End Date Date of Observa tion Smokes tobacco daily (finding) October 01, 2025 3:00pm Observation Status Observation Response Date of Response Legal Sex Male (finding) Sex Assigned At BirthMaleMay 1999 Family History Relationship Condition Age at Onset Recorded Date/T teri father Hypertension Unknown Heart diseaseUnknown Problems Active Problems Problem Diagnosis/Recorded Date Onset Date Stat us Noncompliance July 03, 2024 1:33pm Unknown Active Diabetic polyneuropathy April 01, 2025 1:03pm Unknown Active DM (diabetes mellitus) December 08, 2023 12:25pm Unk nown Active Hypertriglyceridemia August 03, 2024 3:35pm Unknown Active Bipolar disorder April 01, 2025 1:27pm Unknown Ac tive Depression January 05, 2025 4:17pm Unknown Acti ve Uncontrolled diabetes mellitus April 01, 2025 1:02pm U nknown Active ADHD June 29, 2024 10:12am Unknown Active Inactive/Resolved Problems Problem Diagnosis/Recorded Date Onset Date Stat us Chronic pain of left knee February 16, 2024 7:41pm Unkn own Resolved Migraine February 17, 2025 8:24pm Unknown Reso lved Cellulitis of neck March 03, 2024 12:15pm Unknown Resolved Depression with suicidal ideation August 01, 2024 10 :13am Unknown Resolved Depression February 16, 2024 8:08pm Unknown Reso lved Genital herpes simplex December 08, 2023 12:25pm Unk nown Resolved Hyperlipidemia February 16, 2024 8:02pm Unknown Re solved Neuropathy February 16, 2024 8:00pm Unknown Reso lved Chronic back pain February 16, 2024 8:00pm Unknown Resolved Acute adjustment disorder wi th anxiety February 16, 2024 8:08pm Unknown Resolved Bronchitis December 11, 2023 2:18pm Unknown R esolved Medications Medication Status Dose Units Route Directions Qty Days Refills S tart Date Stop Date End Date Reason(s) Instructions Adherence Fenofibrate Nanocrystallized 145 mg tablet Discontinued 145 MG PO Daily 90 90 0 Feb ruary 2023 2:54pm February 15, 2024 10:05amDiabetes mellitus Type 2 diabetes mellitus without complicationsFenofibrate Nanocrystallized 145 mg tabletDiscontinued0.ROUTE.DFMUMWV274Mwr 2023 12:54pmOctober 2023 3:06pmTAKE 1 TABLET BY MOUTH EVERY DAYBlood-Glucose Meter kitDiscontinued0.Route 10Se2023 11:00pmJune 2024 12:57pmDiabetes mellitus Type 2 diabetes mellitus without complicationsto test blood sugar dailyBlood Sugar Diagnostic stripDiscontinued0.Besoi0944Bmmnffmqz2023 11:00pmJun2024 12:57pmDiabetes mellitus Type 2 diabetes mellitus without complicationsto test blood sugar 5 times daily Pen Needle, Diabetic (Bd Ultra-Fine Micro Pen Needle) 32 gauge x 1/4 needle Discontinued0.Nfxux6277Ltvonfnrk 3rd, 2024 11:00pmJune 2024 12:57pm Diabetes mellitus Type 2 diabetes mellitus without complicationsto use 4 times dailyInsulin Lispro (Humalog Kwikpen Insulin) 100 unit/mL insulin bznDviyeg63GBTFVFPBHMMKSXP TIMES DAILY WITH MEALSSept2023 10:22amNon-compliance of drug therapyInsulin Glargine (Lantus Solostar U-100 Insulin) 100 unit/mL (3 mL) insulin pen Auitdsazsrqt30UCPUGVOWCXVbhos zykefzv64.8305Sept2023 1:21pmMarch 2024 5:39pmDiabetes mellitus Type 2 diabetes mellitus without complicationsTizanidine 6 mg capsule Pfxusoqcgqfr5TSOOBlipe at bedtime as needed for muscle bonqeeiykc85839Wrumknp 2023 11:19amOctober 2023 10:58amChronic back pain Neuropathy Dorsalgia, unspecified Other chronic pain Polyneuropathy, unspecifiedFenofibrate Nanocrystallized 145 mg tablet Discontinued0.ROUTE.WKRBQXN684Ffcpflk 2023 10:42amMarch 2024 5:21pm TAKE 1 TABLET BY MOUTH EVERY DAYFenofibrate Nanocrystallized 145 mg tablet Retuepgqynfj667MBZXVtygoDxiwxyr 6th, 2024 11:00pmOctober 2023 8:13am Tizanidine 6 mg trzvmmrMiuwmkdltykg1CBYLGwaol at bedtime as needed for muscle spasticityOct2023 11:00pmOctober 2023 8:47amTizanidine 4 mg RdgnjiFrhsxyjoofch0ZCEBRqouq daily as needed for muscle longfsopeh56454Vdhcekv 2023 11:00pmMar 2024 5:21pmLamotrigine 25 mg KgsaiwYfhwylpjpbzs19NP SVLxwekgc82850Qpeohxr 2023 11:00pmMar 2024 5:20pmNaproxen 500 mg XnapelUiasaictdkku746SCUHFqtsb daily with oulqx32395Govkebh 2023 11:00pm January 05, 2025 5:21pmEscitalopram Oxalate 10 mg CappivCtsyymxcnlzw46QOSXWsmrg agiverw50259Auivcbe 2023 11:00pmMar 2024 5:20pmFenofibrate Nanocrystallized 145 mg pvvruwWxegfczzdyyp678WOLMZahiy278Pqfjhsi 2023 8:13amOctober 2023 10:42amTrazodone 150 mg jhysheJvlxtkwdbybp921AURS BedtimeMar 2024 11:00pm[facility] 20[facility] 12:04pmLamotrigine 25 mg Tablet Rxdtbemfzsjr47NWGGZdhor dailyW[facility] 2024 11:00pm[facility] 2024 11:46am Escitalopram Oxalate 10 mg DipkacMwlbaxoldmdm41DQDMTcrgy morningW[facility] 2024 11:00pm[facility] 2024 12:04pmMetformin 1,000 mg yzuobiMdpzispwgwzc9145FCPV Twice dailyW[facility] 2024 11:00pm[facility] 20[facility] 12:22pmPrazosin 2 mg capsule Vltbvevemsip1TBLROstngcpWlmwt 2024 11:00pm[facility] 2024 5:39pmInsulin Glargine (Lantus Solostar U-100 Insulin) 100 unit/mL (3 mL) insulin drnFaapsm36 UNITSUBCUTEvery eveningWooster Community Hospital 2024 11:00pmNon-compliance of drug therapy Escitalopram Oxalate 10 mg YdikxuFwvzjzkiyysa85DQAWWegmm pmppcfh73670Cqhdu 2024 11:00pmJune 2024 12:18pmAripiprazole 5 mg OynmygWkhuwcpdcays6KPCOUknur 63129Tkzmh 2024 11:00pmJun2024 12:17pmAripiprazole (Abilifverónica Maintena) 400 mg Suspension,Extended Rel DhjtlkHkctuhxnbyvp497OIRIJ00E66Xarow 2024 11:00pmJune 2024 12:57pmLamotrigine 25 mg KmljvlBfnijlvwpjas37 MGPOTwice aydmr315Gyhtb 2024 11:46amJune 2024 12:26pmTrazodone 150 mg ylimnsOxrzzszieuvf688KKFBCojzgxd943Ikftc 2024 11:46amJune 2024 12:26pmPrazosin 2 mg kuwpefgQpcaadyigxdi8UYSKVpdncebCimv 5th, 2025 11:00pmJune 2024 12:26pmEscitalopram Oxalate 10 mg MzkawsFcqmhqzomkep99EJJLFekxv morningMarch 30, 2025 11:00pmJun2024 12:57pmBuspirone 5 mg tablet Ffsyqjxmdhbb6ALEWWdyjs dailyMarch 30, 2025 11:00pmApril 05, 2025 12:26pmInsulin Lispro (Humalog U-100 Insulin) 100 unit/mL njvttykpbQqihsd7ytfaolv scale dose SUBCUTAs Directed Protocol: *If the corrective scale dose has been administered within the past 4 hours, do not use corrective scale again unless approved by prescriber* Condition: Custom Scale 1:___ Instructions: GIVE 1 UNIT OF ASPART FOR EVERY ___MG GLUCOSE Condition: Dose/Route: Instructions: Condition: Fingerstick Blood Glucose Dose/Route: Insulin Units Condition: 200-250mg/dl Dose/Route: 2 unit Condition: 250-300mg/dl Dose/Route: 4 units Condition: 300-350mg/dl Dose/Route: 6 units Condition: 350-400mg/dl Dose/Route: 8 units Condition: >400mg/dl Dose/Route: 10 units Condition: Greater than or = 400 mg/dl Instructions: Call Provider March 30, 2025 11:00pmPlease contact the information source for Protocol details.Non-compliance of drug therapyFenofibrate Nanocrystallized 48 mg Tablet Kgdczkhfrtxk568ZDWSProdp527Wryt 6th, 2025 11:00pmDeceer 2024 7:41am Nicotine (Polacrilex) 2 mg YowZdhntgefycvt8VWMRNEDVV8K as needed for Nicotine Cjhyavyu861Zovs 10th, 2025 11:00pmDece2024 9:18amLisinopril 2.5 mg TabletActive2.6AXJUOkacs46422Dtqr 10th, 2025 11:00pmNon-compliance of drug therapyEscitalopram Oxalate 20 mg ZvolekDpubwdrsejwz33FSWWPfkup kojyjbb08453Dhlx 10th, 2025 11:00pmDece2024 7:41amBuspirone 5 mg vzojqdWwjqxhkghlfb2EN POTwice pvxim49317Xhep 11th, 2025 12:26pmDece2024 7:29amLamotrigine 25 mg CpsezdMdsihufwyhpz89QLDHOttax gdsti067Dosa 11th, 2025 12:pm[facility]20[facility] 7:41amTrazodone 150 mg spgywqWacikmpiuxra974HPWGWrluvup552Vknb 11th, 2025 12:pmDece2024 7:19amPrazosin 2 mg bzkfyvaGrsytarouqwl2RSTDDbmnood44 300Jun2024 12:26pmDece2024 7:41amInsulin Glargine (Lantus Solostar U-100 Insulin) 100 unit/mL (3 mL) Insulin JqdRlasxp23OVIBRKXJXKKdutg353 0April 04, 2025 11:00pmNon-compliance of drug therapyCholecalciferol (Vitamin D3) 125 mcg (5,000 unit) GzonctmMnhdzl314FRZLZEuzrk42989Akfxpcnp 9th, 2025 12:00amUnknownFenofibrate Nanocrystallized 145 mg ZowjelHpnmdm222IHMDWwbza91522 October 03, 2025 12:00amUnknownAripiprazole Lauroxil (Aristada) 882 mg/3.2 mL Suspension,Extended Rel SfjsrmBnpwof469HFPMF34D0.4302Dece2024 12:00am UnknownQuetiapine 100 mg FxbmdrJnftfw568KVEDOvaro at encvpqy34147Gqvjdjhl 9th, 2025 12:00amUnknownBupropion Hcl 150 mg tablet extended release 24 hr Snkeawmkothg309KQTVCwxkd morningFebruary 2023 12:00amFebruary 2023 3:12pmBuspirone 5 mg drcwubGramfxvjgksl3NZSUZdpxu dailyFebruary 2023 12:00amApril 2023 10:03amFenofibrate Nanocrystallized 145 mg tablet Gcvtoeuijlwv381UIDJGwjmuUgwygrro 2023 12:00amFebruary 2023 2:56pm Insulin Lispro (Humalog Kwikpen Insulin) 100 unit/mL insulin penDiscontinued1 sliding scale doseSUBCUTUse as DirectedFebruary 2023 12:00amSeptember 2023 10:23amInsulin Detemir U-100 (Levemir U-100 Insulin) 100 unit/mL solution Mgsxsdtihgue10ESXZFVTVPWYyonm at bedtimeFebruary 2023 12:00amSeptember 2023 10:13amBupropion Hcl 150 mg tablet extended release 24 hrDiscontinued 150MGPOEvery tuziols361Enkvxkrd 2023 3:12pmApril 2023 10:03amInsulin Detemir U-100 (Levemir U-100 Insulin) 100 unit/mL dlncovamDmthwzjlelja02NQHL SUBCUTDaily at dwezbbu54.8305September 2023 9:55amSeptember 2023 1:23pmDiabetes mellitus Type 2 diabetes mellitus without complicationsAtomoxetine (Strattera) 25 mg wdqfinuEosbdueunswu92UGHDJgdcn15340Vrbtoijea 3rd, 2024 11:00pmOctober 2023 3:13pmAttention deficit hyperactivity disorder (ADHD) Attention-deficit hyperactivity disorder, unspecified typeTizanidine 2 mg ffbjnxgMskgmyicfwxd4BKZJDgqle at bedtime as needed for muscle lueccygjkq30537 June 28, 2024 11:00pmOctober 2023 3:15pmtake 1-2 at bedtime Benzonatate 200 mg ueimwgcRointfxrzlbe468PKLD5-9 TIMES PER DAY as needed for nwroo529Gulsngjt 2023 12:00amApril 2023 9:58amAzithromycin (Zithromax Z-Maximino) 250 mg zoujtgBbgdzzjuihdi859FMBMWentx837Mnhofjbv 2023 12:00amApril 2023 9:58amtake 2 tabs today and 1 daily for the next 4 days Methylprednisolone (Medrol (Maximino)) 4 mg tablets,dose lqrjMvymgkhqraoq9JZuar package komkygxjle41Cvmddxhe 2023 12:00amApril 2023 9:58amPO PER PKG DIR for 6 daysAlbuterol Sulfate 90 mcg/actuation HFA aerosol inhalerDiscontinued 2PUFFINHALATIONFour times daily as needed for shortness of breath or wheezing8.5 0February 2023 12:00amOctober 2023 3:05pmPrazosin 1 mg capsule Imlnrgajbzmq5PTNYCkqmy at bedtimeApril 2023 11:00pmMay 2023 12:11pm Bupropion Hcl (Wellbutrin Xl) 300 mg tablet extended release 24 hrDiscontinued 300MGPOEvery morningApril 2023 11:00pmSeptember 2023 10:14amBuspirone 15 mg edfielKxapldxkdlhe17BLJTYgkyr times dailyApr2023 11:00pmOctober 2023 3:06pmGabapentin 300 mg kupynpaFfwcnxcoirru302TZEZTpdch times daily February 14, 2024 11:00pmOctober 2023 3:06pmCinnamon Bark (Cinnamon) 500 mg rkkwddbZupevaeazqfu6165FNMXPccjzHybyu 2023 11:00pmOctober 2023 3:06pm Melatonin 10 mg hakyxewHrjhumglimeq16VKREByvml at bedtime as neededApr2023 11:00pmOctober 2023 3:07pmFenofibrate 160 mg ntdfyaEciutrcaaszs488XECL DailyApr2023 11:00pmMay 2023 10:57amPrazosin 1 mg capsule Ecqmbwcghaby9CTSFVocby at bedtimeMay 2023 12:11pmOctober 2023 3:07pm Etodolac 400 mg otkychUjpktpumixsk569UPITDfgeq zodlq54180Xwv 2023 11:00pm July 27, 2024 3:07pmChronic back pain Chronic pain of left knee Dorsalgia, unspecified Other chronic pain Pain in left kneeCephalexin 500 mg oiurkmwFwupwjqohwem943LYRHVlgol xtupv6055YtvMarch 02, 2024 11:00pmSeptember 2023 9:40amCellulitis of neck Cellulitis of neckBlood Sugar Diagnostic (Freestyle Precision Jorge Strips) strip Discontinued0.Wltpo089Mcb 2023 11:00pmSeptember 2023 9:52amDiabetes mellitus Type 2 diabetes mellitus without complicationsUse to test twice dailyFenofibrate Nanocrystallized 145 mg narzerTnwwkjshhtxi229MWYPAttywDvq 14th, 2024 11:00pmMay 2023 12:54pmAtomoxetine 40 mg hglenaoUmxwhzyzmmtg28AFLVNztnr57189Bgvwebb 2nd, 2024 3:12pmMarch 2024 5:21pmAttention deficit hyperactivity disorder (ADHD) Attention-deficit hyperactivity disorder, unspecified typeTizanidine 6 mg wciwdpoFpvpgxocybzq4RERHCzfaf at bedtime as needed for muscle xheuckfqqk37527 July 27, 2024 3:14pmOctober 2023 11:20amChronic back pain Neuropathy Dorsalgia, unspecified Other chronic pain Polyneuropathy, unspecifiedtake 1-2 at bedtime Immunizations Immunization Event Date Not Given Reason Dose Number Network Operations Specialist Lot Number Reason(s) Given Vaccine Information Statement (VIS) Detail Administration Location Influenza, seasonal, injectable, pf August 02, [id number] Signs Vital Reading Result Reference Range Collection Date/Time Height 68 [in_i] September 30, 2025 11:03btIvoshh031.05 kgDecember 2024 8:29amBody Iqjymlecaci92.5 [degF]97.6-99.0December 2024 12:25pmHeart Rate87 /ljs37-806 October 03, 2025 7:30amRespiratory rate16 /llu87-81Cnburfov 9th, 2025 7:30am Oxygen saturation by Pulse awnrlbvk44 %95-100December 2024 7:30amBP Dfwqmykz738 mm[Hg]100-140December 9th, 2025 7:30amBP Xqosodift08 mm[Hg]60-100 October 03, 2025 7:30am Advance Directives Advance Directive Response Recorded Date/ Time Advance Directives No October 01, 2022 12:36pm Insurance Providers Guarantor Latosha Perez Address [address] [place] [id number] Info.Home Phone: Coverage Status Update:2025 Payer Group Member ID Coverage Type Subscriber Relationship to Subscriber Effective Date Expiration Date Donna HARRINGTON Id: [id number] A Hill Id: [id number] [address] [facility] [id number] Home Phone: Encounters Encounter Location(s) Arrival/Admit Date Discharge/Departure Date Discharge/Departure Disposition Provider(s) Registered Recurring -BH Credible September 30, 2025 8 :39am Blue Talbot MDNon-patient / [facility] September 30, 2025 11:08pmCeferino Edwards MD Recent Diagnosis Onset Date Admit Date Bipolar disorder Unknown September 30 025 11:08pm Diabetic polyneuropathy Unknown September 30, 2025 11:08pm Hypertriglyceridemia Unknown September 11:08pm Noncompliance Unknown September 30 11:08pm Uncontrolled diabetes mellitus Unknown D ec2024 11:08pm Assessments Diagnosis Onset Date Resolution Status Admit Date Bipolar disorder acuteDece2024 11:08pmDiabetic polyneuropathyacuteDece2024 11:08pmHypertriglyceridemiaacuteDece2024 11:08pmNoncomplianceacute September 30, 2025 11:08pmUncontrolled diabetes mellitusacuteDece2024 11:08pm Plan of Treatment Future Tests Future scheduled test information is unavailable Pending Tests Pending diagnostic test information is unavailable Future Visits Future appointment information is unavailable Future Procedures Procedure Name Ordered Date Scheduled Date Admit Status Order September 30, 2025 11:16pm [place] 2024 11:17pm Consult to Adult Hospitalist October 01, 2025 9:16am Homer 7th, 2025 9:16am Discharge Order October 03, 2025 10:13am Decem viki 2024 10:13am Future Medications Future medication information is unavailable Patient Instructions Instruction Admit Date Schizoaffective disorder - D ischarge instructions [facility] [facility] Health DC Instructions Know your Rupal 2024 11:08pm Hospital Discharge Instructions Additional Instructions Important Contact Information You can call [facility] at [phone] any time day or night if you have emergent questions or question regarding discharge instructions. If at any time you are feeling an increase in your psychiatric symptoms, call your physician or behavioral healthcare provider. If any time you have thoughts of harming yourself or others contact one of the following: Call (available 18/05) Crisis Text Line (available 18/05) text 4HOPE to [phone] [facility] Hope Line (available 8 a.m. Midnight) call [phone] ([phone]) Aristada Initio 675mg Injection given on 10/01/25 and Aristada 882mg Injection given on 10/02/25.
[2025-10-06 02:27] VITALS: BP 155/91; PULSE 122; TEMP 36.6; O2SAT 97; BMI 36.2
--- NOTE | 2025-10-06 02:36 | ECG_ITS ---
[facility] Test Date: 2025-10-06 Pat Name: TRACIE LOTT Department: Room: - Gender: Male Glaze Maker: : 2000 Requested By: [id number] Order Number: [id number] Reading MD: KHUSHBOO COVARRUBIAS M.D. Measurements Intervals [place] Rate: 111 P: 45 W[place]: 142 QRS: 75 QRSD: 100 T: 33 QT: 306 QTc: 372 Interpretive Statements 1120 Sinus tachycardia 9140 abnormal rhythm ECG Compared to ECG 09/30/2025 14:43:07 No significant changes Electronically Signed On 10-06-2025 7:25:53 EST by KHUSHBOO COVARRUBIAS M.D.
[2025-10-06 02:52] LABS: Hematocrit 45.1 % (42.0-54.0); Hemoglobin 16.5 g/dL (14.0-18.0); Immature Granulocytes Abs Auto 0.05 10^3/uL (0.00-0.03); Immature Granulocytes Pct Auto 0.8 % (0.0-0.5); Lymphocytes Absolute Auto 2.3 10^3/uL (1.2-3.8); Mean Corpuscular HGB Conc 36.6 g/dL (29.9-35.2); Mean Corpuscular Hemoglobin 30.7 pg (25.9-34.0); Mean Corpuscular Volume 83.8 fL (80.0-94.0); Platelet Count 142 10^3/uL (150-450); Red Blood Count 5.38 10^6/uL (4.70-6.10); White Blood Count 6.4 10^3/uL (4.0-11.0)
[2025-10-06 03:04] LABS: Alanine Aminotransferase 23 U/L (16-63); Albumin Globulin Ratio 1.2; Albumin Level 4.0 g/dL (3.4-5.0); Alkaline Phosphatase 51 U/L (46-116); Anion Gap 10.8; Aspartate Amino Transferase 13 U/L (15-37); Blood Urea Nitrogen 20.0 mg/dL (7.0-18.0); Calcium 9.2 mg/dL (8.5-10.1); Carbon Dioxide 30.0 mmol/L (21.0-32.0); Chloride 96 mmol/L (98-107); Estimated GFR (African America >60 (>=60 mL/min/1.73m^2); Estimated GFR (Non-African Ame >60 (>=60 mL/min/1.73m^2); Globulin 3.4 g/dL; Glucose 371 mg/dL (74-106); Potassium 3.8 mmol/L (3.5-5.1); Salicylate <2.8 mg/dL (<=19.9); Sodium 133 mmol/L (136-145); Total Protein 7.4 g/dL (6.4-8.2)
[2025-10-06 03:20] LABS: Acetaminophen <2.0 ug/mL (10.0-30.0)
[2025-10-06] MEDS: ACETAMINOPHEN 500 MG TABLET 1000 MG PO (03:22)
--- OUTSIDE RECORDS SUMMARY | 2025-10-06 03:45 | XMS_ITS | Clinical Summary ---
Author Organization [facility] Address [address] [place] [address] Care Team Providers Care Electric Car Operator Name Role Phone Unallocated, Noms Provider Primary [...] Gluc Sensor (FreeStyle Viktor 3 Sensor[place] [facility] [place]ications:Type 2 diabetes mellitus with hyperglycemia, with long-term current use of insulin (HCC)Inject 1 Device under the skin every 14 (fourteen) days 6 each ctive Continuous Blood Gluc Deposition Reporter (FreeStyle Viktor 3 [place]) device Indications:Type 2 diabetes mellitus with hyperglycemia, with long-term current use of insulin ([facility])1 Device See administration instructions 1 each 12/29/2023ctive Blood Glucose Monitoring Suppl (Strands) w/Device kit Indications:Type 2 diabetes mellitus with hyperglycemia, with long-term current use of insulin ([facility])fsbs 1 kit 12/29/2023ctive Active Problems ProblemNoted DateDiagnosed DateHyperosmolar (nonketotic) coma12/29/2023 Ckugkcqigthovtsmwyyz25/05/2024Type 2 diabetes mellitus with hyperglycemia, with long-term current use of ousyucy5911/30/2023 Assessment & Plan (12/30/2023 8:53 PM EST): [...] without complication, with long-term current use of yhqpzjt1105/25/2023 Assessment & Plan (11/30/2023 9:27 PM EST): [...] DateResolved DateHyperglycemia due to type 2 diabetes vithcczp30 Family History Medical HistoryRelationNameCommentsDiabetesFather's SisterDiabetesMaternal GrandmotherDiabetesMotherDiabetesMother's BrotherDiabetesMother's [...] drinks on one occasion?Never05/25/2023HQ-2AnswerDate RecordedPatient Health Questionnaire-2 Xxwsd270Sex and Gender InformationValueDate RecordedSex Assigned at BirthNot on fileLegal ZacVodk8903/13/2023 3:06 PM EDTGender IdentityNot on file Sexual OrientationNot on file Last Filed Vital Signs Vital SignReadingTime TakenCommentsBlood Pcnhwdlc338/8812/29/2023 3:49 PM EST Dxghe294212/29/2023 3:49 PM YHODzpoabcasqu90 ??C (96.8 ??F)12/29/2023 3:49 PM EST Respiratory Rate--Oxygen Yfyctdxajn74%12/29/2023 3:49 PM ESTInhaled Oxygen Concentration--Octnck742 kg (247 lb 6.4 oz)12/29/2023 3:49 PM YDWLtbikp362.7 cm (5' 8 )12/29/2023 3:49 PM ESTBody Mass Index37.62012/29/2023 3:49 PM EST Plan of Treatment Health MaintenanceDue DateLast DoneCommentsDiabetes: Retinopathy Screening 2011Pneumococcal Vaccine: Pediatrics (0 to 5 Years) and At-Risk Patients (6 to 64 Years) (1 of 2 - PCV)2020Diabetes: Hemoglobin A1C02/28/2024 11/30/2023iabetes: Urine Protein Piaotwddo63/06/460062/OVID-19 Vaccine ( season)/, 06/04/2021Influenza Vaccine (#1) 2025 Procedures Procedure NamePriorityDate/TimeAssociated DiagnosisCommentsMICROALBUMIN / CREATININE URINE KDWMHMpinzit36/06/2024 9:39 AM EST Depression, unspecified depression type Anxiety Type 2 diabetes mellitus without complication, without long-term current use of insulin (HCC) POCT GLYCOSYLATED HEMOGLOBIN (HGB A1C)Mcwfkrm9911/30/2023 4:28 PM EST Type 2 diabetes mellitus without complication, without long-term current use of insulin ([facility]) from Last 3 Months or Most Recently Relevant to Health Maintenance Results * (ABNORMAL) Microalbumin / creatinine urine ratio (12/01/2023 9:39 AM EST) ComponentValueRef RangeTest MethodAnalysis TimePerformed AtPathologist SignatureCREATININE, RANDOM MWFEX37310 - 320 mg/dLQUESTALBUMIN, URINE9.5See Note: mg/dLQUESTComment: Reference [...] specimen obtained by clean catch procedure / Lmhicfc8212/01/2023 9:39 AM EST12/01/2023 9:39 AM EST Narrative [facility] - 12/02/2023 11:58 AM EST FASTING:YES FASTING: YES Resulting Agency Comment Performing Organization Information ?Site ID: [email or web address] ?Name: [email or web address] [facility] ?Address: [address] [place] [address], [address] [place] [id number] ?Director: Allan Walker MD Authorizing ProviderResult TypeResult StatusDiane Aguilar ITZEL URINE ORDERABLES Final ResultPerforming OrganizationAddressCity/State/ZIP CodePhone Number [facility] * (ABNORMAL) POCT glycosylated hemoglobin (Hb A1C) docked device (11/30/2023 4:28 PM EST)ComponentValueRef RangeTest MethodAnalysis TimePerformed At Pathologist SignatureHemoglobin A1C11.0Specimen (Source)Anatomical Location / LateralityCollection Method / VolumeCollection TimeReceived TimeBloodVenous blood specimen / Gggueqm2811/30/2023 4:28 PM EST Narrative Authorizing ProviderResult TypeResult StatusJoseline Tee DOPOINT OF CARE TEST ENTER/EDIT ORDERABLESFinal Result from Last 3 Months or Most Recently Relevant to Health Maintenance Insurance Care Teams Team MemberRelationshipSpecialtyStart DateEnd Date Unallocated, Noms MD Cali [address] [place] [address] PCP - GeneralFamily Medicine12/29/23
--- OUTSIDE RECORDS SUMMARY | 2025-10-06 03:45 | XMS_ITS | Patient Health Record ---
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 Shipping And Receiving Material Handler Name Role Phone None, Unknown or Primary Care Provider Unavailab le Reason For Referral No Information Medications Medication SIG (Take, Route, Frequency, Duration) Notes Start Date End Date Status Vyvanse capsule 10/26/18994352IoihikRplmccqahlvptk95/01/1900Active Problems Problem Type SNOMED Code ICD Code Onset Dates Problem Status W/U Status Risk Notes Problem Hypertriglyceridemia (830967773) Hypertri glyceridemia (E78.1) ActiveconfirmedProblemHyperglycemia due to type 2 diabetes mellitus (064849231681338)Poorly controlled diabetes mellitus (E11.65)Activeconfirmed ProblemHyperosmolar (nonketotic) coma (E11.01)Activeconfirmed Plan Of Treatment No Information Insurance Providers Payer Name Payer Address Payer Phone Subscriber Number Group Number Insured Name Patient Relationship to Insured Coverage Start Date Coverage End Date [employer] [place] [employer] [address] [address] [place] [phone] [id number] Kathia Ramirez - patient is the insured
--- OUTSIDE RECORDS SUMMARY | 2025-10-06 03:45 | XMS_ITS | CCD ---
Author Organization [facility] Care Team Providers Care Maxillofacial Pathology Name Role Phone Fito Villalobos Primary Care [...] Admitting Unavailable JEAN PIERRE BARTON Attending Unavailable [facility] Primary [facility] Unavailable JAMES, YOLANDA [...] Unavailable RADHA Davey, DR DEE Consulting Unavailable TOWER, DR CÉSAR Metzger Consulting Unavailable CAYETANO SMITH [...] Other Provider DO Escobar Jones Other Provider [phone] HAILEE Garcia Other Provider DO Manohar Carter Other Provider MD Dayan Perrin Other Provider HAILEE Finley Other Provider HAILEE Correa Other Provider MD Wilfred Moreno Other Provider MD Hudson Turner Other Provider [phone] DO Francisco Javier Lynne T Other Provider [...] Other Provider Mauricio White DO Other Provider [phone] Nubia Dhaliwal MD Other Provider Panchito Ferro MD Other Provider Tarik PAD MAKING MACHINE OPERATOR-C, Gabriela Cardona Other Provider [phone] Veronica Danielle APRN Other Provider Unavailable Ramesh [...] Other Provider Emeka Cantor MD Other Provider [phone] Ari Hazel MD Other Provider Kiran GALINDO, Wale Other Provider Nicolasa Cramer APRN Other Provider Nathaniel Garcia APRN Other Provider Saloni Curiel RN Other Provider Unavailable Ceferino Edwards MD Attending Provider [facility] Primary Care [facility] ider Kris Gross MD Attending Provider Demetria Cifuentes APRN Primary Care Provider Blue Talbot MD Attending Provider [phone] Fish STEPHENS, Annamarie Other Provider Unavailable Olegario [...] Consulting Unavailable Tiffanie Genao Consulting Unavailable Ria Laech Consulting Unavailable Latasha Nettles Consulting Unavailable Alicia [...] Ferro Consulting Unavailable Gabriela Montanez Consulting Unavailable Veroinca Danielle Consulting Unavailable Ramesh Garcia Consulting Unavailab [...] Shetty Admitting Unavailable Guillermina Shetty Attending Unavailable [facility] Kris [...] (1 source)Adhesive TapePropensity to adverse reactions to [id number] (1 source)No Known Medication Allergies; 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: [No Known Medication Allergies]Propensity to adverse reactions (disorder)[facility] (1 source)ADHESIVE TAPE-SILICONES; 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: [ADHESIVE TAPE-SILICONES] Propensity to adverse reactions to drug (disorder)08-89-2802UfjWrqwko Repository Medications Current Medications MedicationDrug Class(es)DatesSig (Normalized)Sig (Original)Acetaminophen (1 source)Start: 49-35-9604ehwdetusrgvkp (TYLENOL) tablet 650 mgatorvastatin 40 mg oral tablet (3 sources)HMG-CoA Reductase InhibitorStart: 50-71-5709bdis 1 tablet by mouth once dailyatorvastatin (LIPITOR) 40 MG tablet Take 1 tablet by mouth daily 30 tablet 3 08/01/2020 ActiveBlood Sugar Diagnostic (3 sources)Start: 00-49-3736Lkwyl Sugar Diagnostic Active 0 .Route 100 June 29, 2024 12:00am to test blood sugar 5 times dailyBlood-Glucose Meter (3 sources)Start: 17-48-1657Pyazk-Glucose Meter Active 0 .Route June 29, 2024 12:00am to test blood sugar daily24 hr buPROPion hydrochloride 300 mg extended release oral tablet (20 sources)AminoketoneStart: 91-20-3393cqJTMHszj 300 mg/24 hours ER Tab Refills(s) 0 Start Date: 04/25/24 Status: OrderedStart: 02-15-2024 End: 53-15-5135fvak 1 tablet by mouth once daily in the morningBupropion Hcl (Wellbutrin Xl) 300 mg tablet extended release 24 hr Discontinued 300 MG PO Every morning February 15, 2024 12:00am June 29, 2024 11:14amStart: 12-08-2023 End: 16-44-4367blbv 1 tablet by mouth once daily in the morningBupropion Hcl 150 mg tablet extended release 24 hr Discontinued 150 MG PO Every morning 2023 4:12pm February 15, 2024 11:03ambusPIRone hydrochloride 5 mg oral tablet (20 sources)Start: 03-31-2025 End: 51-54-9036zfpg 1 tablet by mouth twice dailyBuspirone 5 mg tablet Active 5 MG PO Twice daily 60 April 05, 2025 1:26pmStart: 02-15-2024 End: 94-06-8135cqmw 1 tablet by mouth three times dailyBuspirone 15 mg tablet Discontinued 15 MG PO Three times daily February 15, 2024 12:00am July 27, 2024 4:06pmStart: 12-04-2023 End: 48-14-1676sjst 1 tablet by mouth twice dailyBuspirone 5 mg tablet Discontinued 5 MG PO Twice daily December 08, 2023 1:00am February 15, 2024 1 1:03amciprofloxacin 500 mg oral tablet (1 source)Quinolone AntimicrobialStart: 04-25-2024 End: 92-54-7792ntor 1 tablet by mouth twice daily at mealtimeCipro 500 mg Tab 500 mg = 1 tab(s), Oral, BID, start with first meal after procedure, X 5 day(s), #10 tab(s), Refills(s) 0, Pharmacy: [facility]/pharmacy #[id number], 174, cm, 04/25/24 11:22:00 EDT, Height/Length Dosing, 113.5, kg, 04/25/24 11:22:00 EDT, Weight Dosing Start Date: 04/25/24 Stop Date: 04/30/24 Status: OrdereddiazePAM 10 mg oral tablet (2 sources)BenzodiazepineStart: 79-07-0801qobo 1 tablet by mouth once daily Valium 10 mg Tab 10 mg = 1 tab(s), Oral, Daily, take 30 minutes prior to procedure, # 1 tab(s), Refills(s) 0, Pharmacy: [facility]/pharmacy #[id number], 174, cm, 04/25/24 11:22:00 EDT, Height/Length Dosing, 113.5, kg, 04/25/24 11:22:00 EDT, Weight Dosing Start Date: 04/25/24 Status: Ordered0.3 ml enoxaparin sodium 100 mg/ml prefilled syringe (1 source)Low Molecular Weight HeparinStart: 83-60-1817mguxgdatzl (LOVENOX) injection 30 mgescitalopram 20 mg oral tablet (15 sources)Serotonin Reuptake InhibitorStart: 18-47-1802uuwy 1 tablet by mouth once daily in the morningEscitalopram Oxalate 20 mg Tablet Active 20 MG PO Every morning 30 April 05, 2025 12:00amStart: 03-31-2025 End: 96-50-9059znwp 2 tablets by mouth once daily in the morningEscitalopram Oxalate 10 mg Tablet Discontinued 20 MG PO Every morning March 31, 2025 12:00am April 05, 2025 1:57pmStart: 01-09-2025 End: 30-44-8120Inktfslslylb Oxalate 10 mg Tablet Discontinued 15 MG PO Every morning 45 January 09, 2025 12:00am March 31, 2025 1:18pmStart: 01-05-2025 End: 59-10-5406ioqo 1 tablet by mouth once daily in the morningEscitalopram Oxalate 10 mg Tablet Discontinued 10 MG PO Every morning January 05, 2025 12:00am January 09, 2025 1:04pmStart: 08-04-2024 End: 19-28-0323Hxpiackqyand Oxalate 10 mg Tablet Discontinued 15 MG PO Every morning 45 August 04, 2024 12:00am January 05, 2025 6:20pmStart: 28-97-5780canr 15 mg by mouth once daily in the morningEscitalopram Oxalate Active 15 MG PO Every morning 45 August 04, 2024 12:00amfamotidine 20 mg oral tablet (3 sources)Histamine-2 Receptor AntagonistStart: 20-73-3891ybkc 1 tablet by mouth twice dailyfamotidine (PEPCID) 20 MG tablet Take 1 tablet by mouth 2 times daily 60 tablet 3 08/01/2020 Activefenofibrate 48 mg oral tablet (20 sources)Peroxisome Proliferator Receptor alpha AgonistStart: 04-01-2025 Fenofibrate Nanocrystallized 48 mg Tablet Active 192 MG PO Daily April 01, 2025 12:00amStart: 08-01-2024 End: 63-86-2386uztt 1 tablet by mouth once dailyFenofibrate Nanocrystallized 145 mg tablet Discontinued 145 MG PO Daily August 04, 2024 9:13am August 09, 2024 11:42amStart: 76-09-1007mougrwkowff 145 mg Tab Refills(s) 0 Start Date: 04/25/24 Status: OrderedStart: 02-15-2024 End: 76-93-5693dszv 1 tablet by mouth once dailyFenofibrate 160 mg tablet Discontinued 160 MG PO Daily February 15, 2024 12:00am March 09, 2024 11:57am Start: 12-08-2023 End: 97-29-6522vfyr 1 tablet by mouth once dailyFenofibrate Nanocrystallized 145 mg tablet Discontinued 145 MG PO Daily 90 90 December 08, 2023 3:54pm February 15, 2024 11:05amtake 1 tablet by mouth every twenty-four hoursFenofibrate 160 MG 1 tablet Orally Once a day for 30 days Activeglucagon (rdna) 1 mg injection (1 source)Antihypoglycemic AgentStart: 69-90-3163lndg 1 mL intravenous route every hour1 mg, Intramuscular, PRN, Low blood sugar, Blood glucose less than 70 mg/dL and patient NOT ALERT or NPO and does not have IV access., Starting 07/30/20 at 2152 After administration, attempt intravenous access and start D5W at 100 mL/hr. Repeat blood glucose in 15 minutes x2 and notify provider.1000 ml glucose 500 mg/ml injection (3 sources)Start: 61-64-112491 g, Oral, PRN, Low blood sugar, Starting [...] glucose in15 minutes x2 and notify provider.Start: 68-90-027622.5 g, Intravenous, PRN, Low blood sugar, Blood [...] using Glucostabilizer, dose as instructed per system.Start: 17-30-1408884 mL/hr, Intravenous, at 100 mL/hr, PRN, Low blood sugar, Starting 07/30/20 at 2152 Start infusion following administration of dextrose 50% or glucagon.hydrOXYzine hydrochloride 50 mg oral tablet (5 sources)AntihistamineStart: 2020 End: 23-63-6216aklp 1 tablet by mouth three times daily as needed for anxiety hydrOXYzine (ATARAX) 50 MG tablet Take 1 tablet by mouth 3 times daily as needed for Anxiety 45 tablet 0 2020 03/16/2020 Activetake 1 capsule by mouth four times daily as neededhydrOXYzine (VISTARIL) 50 MG capsule Take 50 mg by mouth 4 times daily as needed for Itching 0 Active End: 20-20-3888LACNPLTSGFR HCL PO Take by mouth 0 08/01/2020 Discontinued (Stop Taking at Discharge)3 ml insulin glargine 100 unt/ml pen injector (11 sources)Insulin AnalogStart: 05-04-7219Jttmyqx Glargine (Lantus Solostar U- 100 Insulin) 100 unit/mL (3 mL) Insulin Pen Active 20 UNIT SUBCUT Daily 6 30 April 05, 2025 12:00amStart: 90-81-6717Vvcpvuo Glargine (Lantus Solostar U-100 Insulin) 100 unit/mL (3 mL) insulin pen Active 35 UNIT SUBCUT Every evening January 05, 2025 12:00amStart: 06-29-2024 End: 46-13-5305Yzbvgdl Glargine (Lantus Solostar U-100 Insulin) 100 unit/mL (3 mL) insulin pen Discontinued 36 UNIT SUBCUT Every evening 10.8 30 June 29, 2024 2:21pm January 05, 2025 6:39pm3 ml insulin lispro 100 unt/ml cartridge (7 sources)Insulin AnalogStart: 81-69-1209Httjdfm Lispro (Humalog U-100 Insulin) 100 unit/mL cartridge Active 0 sliding scale dose SUBCUT As Directed March 31, 2025 12:00am Please contact the information source for Protocol details.Start: 31-89-7936Jhwfsrx Lispro KwikPen 100 units/mL injectable solution Refills(s) [...] Insulin) 100 unit/mL insulin pen (18 sources)Start: 77-49-8491Rzjohgp Lispro (Humalog Kwikpen Insulin) 100 unit/mL insulin pen Active 12 UNIT SUBCUT THREE TIMES DAILY WITH MEALS June 29, 2024 11:22amStart: 69-52-0381Vmikmed Lispro (Humalog Kwikpen Insulin) 100 unit/mL insulin pen Active 1 sliding scale dose SUBCUTUse as Directed June 29, 2024 11:22am 12 units with each meal 150-200 - 3 units 200-330 - 6 units 330-399 - 9 units > 400 - 12 unitsStart: 12-08-2023 End: 52-62-7868Efgyssv Lispro (Humalog Kwikpen Insulin) 100 unit/mL insulin pen Discontinued 1 sliding scale dose SUBCUT Use as Directed December 08, 2023 1:00am June 29, 2024 11:23amStart: 30-60-2365Ijrquhk Lispro (Humalog Kwikpen Insulin) 100 unit/mL insulin pen Active 1 sliding scale dose SUBCUTUse as Directed December 08, 2023 1:00amStart: 13-73-5431Gmwcyvn Lispro (Humalog Kwikpen Insulin) 100 unit/mL insulin pen Active 1 sliding scale dose SUBCUTUse as Directed December 08, 2023 12:00amlamoTRIgine 25 mg oral tablet (16 sources)Mood Stabilizer, Anti-epileptic AgentStart: 08-04-2024 End: 52-72-3499ihjp 1 tablet by mouth twice dailyLamotrigine 25 mg Tablet Active 25 MG PO Twice daily April 05, 2025 1:26pmStart: 27-16-9274GlVOUrjb 25 MG Oral Tablet 02/14/2020 Provider: Fito Villalobos CNPlisinopril 2.5 mg oral tablet (1 source)Angiotensin Converting Enzyme InhibitorStart: 49-79-7332rlgb 1 tablet by mouth once dailyLisinopril 2.5 mg Tablet Active 2.5 MG PO Daily 30 April 05, 2025 12:00ammeloxicam 7.5 mg oral tablet (3 sources)Nonsteroidal Anti-inflammatory DrugStart: 06-31-5199Mobqr 7.5 MG Oral Tablet 02/14/2020 Provider: Fito Villalobos CNPnicotine 2 mg chewing gum (2 sources)Cholinergic Nicotinic AgonistStart: 34-31-3169Fynfwexn (Polacrilex) 2 mg Gum Active 4 MG BUCCAL Q2H as needed for Nicotine Cravings March 12:00amStart: 06-50-6076rgyhbvar polacrilex (NICORETTE) gum 2 mgpolyethylene glycol 3350 07157 mg powder for oral solution (1 source)Osmotic LaxativeStart: g, Oral, DAILY PRN, Constipation, Starting 07/30/20 at 2152 First line therapy for constipationprazosin 2 mg oral capsule (20 sources)alpha-Adrenergic BlockerStart: 03-31-2025 End: 39-25-3137adla 1 capsule by mouth at bedtimePrazosin 2 mg capsule Active 2 MG PO Bedtime 30 April 05, 2025 1:26pmStart: 01-05-2025 End: 48-62-1311jclk 1 capsule by mouth at bedtimePrazosin 2 mg capsule Discontinued 2 MG PO Bedtime January 05, 2025 12:00am January 05, 2025 6:39pm Start: 03-03-2024 End: 05-13-2570vahv 2 mg by mouth once daily at bedtimePrazosin Discontinued 2 MG PO Daily at bedtime March 03, 2024 1:11pm July 27, 2024 4:07pmStart: 02-15-2024 End: 01-98-7652vakq 1 capsule by mouth once daily at bedtimePrazosin 1 mg capsule Discontinued 2 MG PO Daily at bedtime March 03, 2024 1:11pm July 27, 2024 4:07pmPromethazine (1 source)PhenothiazineStart: 38-76-3588dtklvnufxayb (PHENERGAN) tablet 12.5 mg sertraline 50 mg oral tablet (1 source)Serotonin Reuptake InhibitorStart: 35-78-8175cunm 1 tablet by mouth once dailysertraline (ZOLOFT) 50 MG tablet Take 1 tablet by mouth daily 30 tablet 3 08/06/2020 ActiveStart: 31-91-1117bmhl 1 tablet by mouth once daily sertraline (ZOLOFT) 50 MG tablet Take 1 tablet by mouth daily 30 tablet 3 08/06/2020 Wnnisy9544 ml sodium chloride 9 mg/ml injection (4 sources)Start: 59-28-949296 mL, Intravenous, EVERY 12 HOURS SCHEDULED (2 times per day), First dose on 07/30/20 at 2200Start: 54-64-5223avay 10 mL intravenous route once as dkxpmo40 mL, Intravenous, PRN, Line Care, After every IV line use, Starting Thu07/30/20 at 2152Start: 07-30-2020 End: 56-92-0531Uzbijgjoeuq, at 75 mL/hr, CONTINUOUS, Starting Thu07/30/20 at 2200traZODone hydrochloride 150 mg oral tablet (11 sources)Serotonin Reuptake InhibitorStart: 01-05-2025 End: 92-25-4027kybi 1 tablet by mouth at bedtimeTrazodone 150 mg tablet Active 150 MG PO Bedtime April 05, 2025 1:26pmStart: 71-00-3626kwph 1 tablet by mouth once daily as needed for sleeptraZODone (DESYREL) 50 MG tablet Take 1 tablet by mouth nightly as needed for Sleep 30 tablet 0 2020 Active Completed/Discontinued Medications MedicationDrug Class(es)DatesSig (Normalized)Sig (Original)[id number] 200 actuat albuterol 0.09 mg/actuat metered dose inhaler (10 sources)beta2-Adrenergic AgonistStart: 12-11-2023 End: 87-88-9142nage 1 puff(s) by inhalation four times daily as needed for wheezingAlbuterol Sulfate 90 mcg/actuation HFA aerosol inhaler Discontinued 2 PUFF INHALATION Four times daily as needed for shortness of breath or wheezing 8.5 December 11, 2023 1:00am July 27, 2024 4:05pmARIPiprazole 400 mg extended release prefilled syringe (13 sources)Atypical AntipsychoticStart: 01-09-2025 End: 61-17-4790qtzk 1 tablet by mouth once dailyAripiprazole 5 mg Tablet Discontinued 5 MG PO Daily January 09, 2025 12:00am March 31, 2025 1:17pm Start: 01-09-2025 End: 17-90-8516Icknqwmekzlz (Abilify Maintena) 400 mg Suspension,Extended Rel Syring Discontinued 400 MG IM Q28D 1M2024 12:00am April 05, 2025 1:57pmStart: 2020 End: 85-83-0079tlaa 1 tablet by mouth once dailyARIPiprazole (ABILIFY) 2 MG tablet Take 1 tablet by mouth daily 30 tablet 0 2020 07/31/2020 Di scontinued (LIST CLEANUP) End: 13-28-7462cvre 1 tablet by mouth once dailyARIPiprazole (ABILIFY) 10 MG tablet Take 10 mg by mouth daily 0 08/05/2020 Discontinued (Stop Taking at Discharge) End: 98-32-5436qbdc 1 tablet by mouth once dailyARIPiprazole (ABILIFY) 5 MG tablet Take 5 mg by mouth daily 0 08/01/2020 Discontinued (Stop Taking at Discharge)atomoxetine 40 mg oral capsule (17 sources)Norepinephrine Reuptake InhibitorStart: 07-27-2024 End: 51-76-0938lkkb 1 capsule by mouth once dailyAtomoxetine 40 mg capsule Discontinued 40 MG PO Daily July 27, 2024 4:12pm January 05, 2025 6:21pmStart: 06-29-2024 End: 54-10-3185owbu 1 capsule by mouth once dailyAtomoxetine (Strattera) 25 mg capsule Discontinued 25 MG PO Daily June 29, 2024 12:00amJuly 27, 2024 4:13pmStart: 29-60-5985fbueozzzkix 40 mg Cap Refills(s) 0 Start Date: 04/25/24 Status: Orderedazithromycin 250 mg oral tablet (12 sources)Macrolide AntimicrobialStart: 12-11-2023 End: 59-64-9301nnpf 2 tablets by mouth once daily, then take 1 tablet by mouth once dailyAzithromycin (Zithromax Z-Maximino) 250 mg tablet Discontinued 250 MG PO Daily 03 30December 11, 2023 1:00am February 15, 2024 10:58am take 2 tabs today and 1 daily for the next 4 daysStart: 34-97-0753heev 2 tablets by mouth once at mealtimeAzithromycin 600 MG 2 tablets Orally once for 1 days Take 2 tablets p.o. with food on Sep, Not-Taking/PRNbenzonatate 200 mg oral capsule (10 sources)Non-narcotic AntitussiveStart: 12-11-2023 End: 89-12-9249Xmegmlszwqs 200 mg capsule Discontinued 200 MG PO 2-3 TIMES PER DAY as needed for cough 2023 1:00am February 15, 2024 10:58am Blood-Glucose Meter kit (4 sources)Start: 06-29-2024 End: 32-48-0034Dfsml-Glucose Meter kit Discontinued 0 .Route June 29, 2024 12:00am April 05, 2025 1:57pm to test blood sugar dailyStart: 06-29-2024 Blood-Glucose Meter kit Active 0 .Route 1 June 29, 2024 12:00am to test blood sugar dailycefTRIAXone (3 sources)Cephalosporin AntibacterialStart: 58-96-8977Zxzxydze 500 mg Sep, 500 mgcephalexin 500 mg oral capsule (9 sources)Cephalosporin AntibacterialStart: 03-03-2024 End: 67-96-8821ojvi 1 capsule by mouth twice dailyCephalexin 500 mg capsule Discontinued 500 MG PO Twice daily 14 March 03, 2024 12:00am June 29, 2024 10:40amcinnamon bark 500 mg oral capsule (10 sources)Start: 02-15-2024 End: 92-31-9695klif 1 capsule by mouth once dailyCinnamon Bark (Cinnamon) 500 mg capsule Discontinued 1000 MG PO Daily February 15, 2024 12:00am July 27, 2024 4:06pmDULoxetine 30 mg delayed release oral capsule (3 sources)Serotonin and Norepinephrine Reuptake InhibitorStart: 2020 End: 07-33-9047rlbd 3 capsules by mouth once dailyDULoxetine (CYMBALTA) 30 MG extended release capsule Take 3 capsules by mouth daily 90 capsule 0 2020 08/05/2020 Discontinued (Stop Taking at Discharge)etodolac 400 mg oral tablet (9 sources)Nonsteroidal Anti-inflammatory DrugStart: 03-03-2024 End: 80-77-5054rmgf 1 tablet by mouth twice dailyEtodolac 400 mg tablet Discontinued 400 MG PO Twice daily 60 30 March 03, 2024 12:00am July 27, 2024 4:07pmFenofibrate Nanocrystallized (8 sources)Start: 03-09-2024 End: 57-96-8215zraf 1 tablet by mouth once dailyFenofibrate Nanocrystallized Discontinued 0 .ROUTE .COMPLEX March 09, 2024 1:54pm July 27, 2024 4:06pm TAKE 1 TABLET BY MOUTH EVERY DAYStart: 24-33-9861loli 1 tablet by mouth once dailyFenofibrate Nanocrystallized Active 0 .ROUTE .COMPLEX 90 March 09, 2024 1:54pm TAKE 1 TABLET BY MOUTH EVERY DAYStart: 03-09-2024 End: 93-28-2534hmac 145 mg by mouth once dailyFenofibrate Nanocrystallized Discontinued 145 MG PO Daily March 09, 2024 12:00am March 09, 2024 1:54pm Fenofibrate Nanocrystallized 145 mg tablet (12 sources)Start: 08-09-2024 End: 86-10-5057dcve 1 tablet by mouth once dailyFenofibrate Nanocrystallized 145 mg tablet Discontinued 0 .ROUTE .COMPLEX August 09, 2024 11:42am January 05, 2025 6:21pm TAKE 1 TABLET BY MOUTH EVERY DAYStart: 03-09-2024 End: 72-39-1073uyft 1 tablet by mouth once dailyFenofibrate Nanocrystallized 145 mg tablet Discontinued 0 .ROUTE .COMPLEX March 09, 2024 1:54pm July 27, 2024 4:06pm TAKE 1 TABLET BY MOUTH EVERY DAYStart: 03-09-2024 End: 36-14-9527ugzs 1 tablet by mouth once dailyFenofibrate Nanocrystallized 145 mg tablet Discontinued 145 MG PO Daily March 09, 2024 12:00am March 09, 2024 1:54pmgabapentin 300 mg oral capsule (12 sources)Anti-epileptic AgentStart: 02-15-2024 End: 97-14-4624wvry 1 capsule by mouth three times dailyGabapentin 300 mg capsule Discontinued 300 MG PO Three times daily February 15, 2024 12:00am 2023 4:06pminsulin detemir 100 unt/ml injectable solution (20 sources)Insulin AnalogStart: 12-08-2023 End: 99-62-9777iwemie 36 [IU] by subcutaneous injection once daily at bedtime Insulin Detemir U-100 (Levemir U-100 Insulin) 100 unit/mL solution Discontinued 36 UNIT SUBCUT Daily at bedtime 10.8 30 June 29, 2024 10:55am June 29, 2024 2:23pmLevemir FlexPen 100 UNIT/ML 36 units Subcutaneous nightly for 90 days Activemelatonin 10 mg oral capsule (12 sources)Start: 02-15-2024 End: 53-41-9168tpax 1 capsule by mouth once daily at bedtime as neededMelatonin 10 mg capsule Discontinued 10 MG PO Daily at bedtime as needed February 15, 2024 12:00am July 27, 2024 4:07pmmetFORMIN hydrochloride 1000 mg oral tablet (7 sources)BiguanideStart: 01-05-2025 End: 37-78-7626xooa 1 tablet by mouth twice dailyMetformin 1,000 mg tablet Discontinued 1000 MG PO Twice daily January 05, 2025 12:00am March 31, 2025 1:22pmStart: 89-30-7344uxbb 1 tablet by mouth twice daily at mealtimemetFORMIN (GLUCOPHAGE) 1000 MG tablet Take 1 tablet by mouth 2 times daily (with meals) 60 tablet Active End: 23-65-6315sszy 500 mg by mouth twice daily at mealtimeMETFORMIN HCL PO Take 500 mg by mouth 2 times daily (with meals) 0 08/05/2020 Discontinued (Stop Andre ing at Discharge)methylPREDNISolone 4 mg oral tablet (10 sources)CorticosteroidStart: 12-11-2023 End: 94-30-4976lqlz 1 tablet by mouth onceMethylprednisolone (Medrol (Maximino)) 4 mg tablets,dose pack Discontinued 0 PO per package directions 1February 2023 1:00am February 15, 2024 10:58am PO PER PKG DIR for 6 daysmetroNIDAZOLE 500 mg oral tablet (2 sources)Nitroimidazole AntimicrobialStart: 72-81-4110rguf 4 tablets by mouth once at mealtimemetroNIDAZOLE 500 MG 4 tablets Orally once for 1 days Take all 4 tablets by mouth with food on Sep, Not-Taking/PRNStart: 49-58-6714pykp 4 tablets by mouth once at mealtimemetroNIDAZOLE 500 MG 4 tablets Orally once for 1 days Take all 4 tablets by mouth with food on Sep, Activenaproxen 500 mg oral tablet (5 sources)Nonsteroidal Anti-inflammatory DrugStart: 08-04-2024 End: 39-06-2341oyxp 1 tablet by mouth twice daily at mealtimeNaproxen 500 mg Tablet Discontinued 500 MG PO Twice daily with meals 60 August 04, 2024 12:00am January 05, 2025 6:21pmtiZANidine 4 mg oral tablet (20 sources)Central alpha-2 Adrenergic AgonistStart: 08-04-2024 End: 76-49-5148svfy 6 mg by mouth twice daily as neededTizanidine 4 mg Tablet Discontinued 6 MG PO Twice daily as needed for muscle spasticity August 04, 2024 12:00am January 05, 2025 6:21pmStart: 12-19-8733efjm 6 mg by mouth twice dailyTizanidine Active 6 MG PO Twice daily August 04, 2024 12:00amStart: 08-01-2024 End: 25-62-1613rqre 4 mg by mouth once daily at bedtime as neededTizanidine 6 mg capsule Discontinued 4 MG PO Daily at bedtime as needed for muscle spasticity August 01, 2024 12:00am August 03, 2024 9:47amStart: 08-01-2024 End: 16-83-4912vvhw 4 mg by mouth once daily at bedtimeTizanidine Discontinued 4 MG PO Daily at bedtime August 01, 2024 12:00am August 03, 2024 9:47amStart: 07-27-2024 End: 85-39-6880jrzx 1 capsule by mouth once daily at bedtime as neededTizanidine 6 mg capsule Discontinued 6 MG PO Daily at bedtime as needed for muscle spasticity 90 90October 2023 12:19pm August 01, 2024 11:58amStart: 06-29-2024 End: 82-27-7722qbot 2 capsules by mouth once daily at bedtimeTizanidine 2 mg capsule Discontinued 4 MG PO Daily at bedtime as needed for muscle spasticity 60 30Sept2023 12:00am July 27, 2024 4:15pm take 1-2 at bedtime Start: 06-29-2024 End: 82-64-1555jaht 4 mg by mouth once daily at bedtimeTizanidine Discontinued 4 MG PO Daily at bedtime 60 30 June 29, 2024 12:00am July 27, 2024 4:15pm take 1-2 at bedtimevalACYclovir 1000 mg oral tablet (2 sources)Herpesvirus Nucleoside Analog DNA Polymerase Inhibitor, Herpes Simplex Virus Nucleoside Analog DNA Polymerase Inhibitor, Herpes Zoster Virus Nucleoside Analog DNA Polymerase InhibitorStart: 17-91-2550pyqs 1 tablet by mouth every twelve hoursvalACYclovir HCl 1 GM 1 tablet Orally 2 times a day for 10 day(s) Sep, Not-Taking/PRNStart: 45-89-3567jiyq 1 tablet by mouth every twelve hoursvalACYclovir HCl 1 GM 1 tablet Orally 2 times a day for 10 day(s) Sep, Active Problems Active Problems Problem ClassificationProblemDateDocumented DateEpisodic/ChronicAdjustment disorders (13 sources)Adjustment disorder with anxious mood; 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: [Adjustment disorder with anxiety]69-68-4581GnaqrgySfngiba-related disorders (3 sources)Alcohol abuse, in remission; 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: [Alcohol dependence, in remission]Onset: 89-74-6612WgcdwcbDuxmqko disorders (4 sources)Posttraumatic stress disorder; Translations: [Anxiety]Onset: 50-24-2674SzqwpsfJflgfbuft-deficit conduct and disruptive behavior disorders (12 sources)Attention deficit hyperactivity disorder; Translations: [Attention- deficit hyperactivity disorder, unspecified type]Onset: ChronicAttention-deficit, conduct, and disruptive behavior disorders (6 sources)Attention-deficit hyperactivity disorder, unspecified type; Translations: [Attention deficit disorder with hyperactivity]84-58-0594Zsaevjy Cardiac dysrhythmias (1 source)Tachycardia, unspecified; Translations: [TACHYCARDIA UNSPECIFIED] Onset: 09-24-4596DbogdtpyUzshhza obstructive pulmonary disease and bronchiectasis (12 sources)Bronchitis; Translations: [Bronchitis, not specified as acute or chronic]74-38-4298CvbypdddDngfszkoaegvv and procreative management (1 source)Contraception status; Translations: [Encounter for other general counseling and advice on contraception]Onset: 00-80-2889BjztwnusMnrjlpxzdz and other anemia (1 source)Iron deficiency anemia, unspecified; Translations: [IRON DEFICIENCY ANEMIA UNSPECIFIED]Onset: 34-58-9325GqfbxidyNkozbouq mellitus with complications (7 sources)Type 2 diabetes mellitus with hyperglycemia; Translations: [Other specified diabetes mellitus with hyperglycemia]Onset: 85-89-0746RrjibjkMryrdaao mellitus without complication (20 sources)Diabetes mellitus; Translations: [Type 2 diabetes mellitus without complications]Onset: 557154-86-1288FsfqbizHnsqswdzp of lipid metabolism (20 sources)Hypertriglyceridemia; Translations: [Pure hyperglyceridemia]Onset: 483338-42-2404QcfrzbpRwvsxhbepggne symptoms and ill-defined conditions (3 sources)Increased frequency of urination; Translations: [Frequency of micturition]Onset: 58-04-6241PsfotxqvFaxqdkvw; including migraine (4 sources)Migraine; Translations: [Other migraine, not intractable, without status migrainosus]Onset: 050053-86-4204QajypakEpdz disorders (20 sources)Bipolar disorder; Translations: [Unspecified mood [affective] disorder]Onset: 682415-25-9054VcrqrwnTmwd disorders (1 source)Mood disorders; Translations: [Depression, unspecified]Onset: 06-44-9703Zqarzrbunxu chest pain (3 sources)Chest pain, unspecified; Translations: [Chest pain]Onset: 05-09-2025 EpisodicOsteoarthritis (2 sources)Wilmzklln91-78-1744JwbfhnaOqywo aftercare (1 source)Long-term current use of insulin; Translations: [alf (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]EpisodicOther nervous system disorders (1 source)Chronic pain; Translations: [Other chronic pain]ChronicOther nervous system disorders (2 sources)Other chronic pain; Translations: [Other chronic pain]Onset: 73-50-1466CazozyaIqowj nervous system disorders (9 sources)Neuropathy; Translations: [Polyneuropathy, unspecified]02-16-2024 ChronicOther nervous system disorders (8 sources)Polyneuropathy, unspecified; Translations: [Mononeuritis of unspecified site]58-51-7032OifhbeaLvuwz nervous system disorders (4 sources)Toxic metabolic encephalopathy; Translations: [Toxic metabolic encephalopathy]Onset: 598028-52-2023YuorizmoQcxhl non-traumatic joint disorders (3 sources)Knee pain; Translations: [Arthralgia - Knee / Patella / Tibia / Fibula]Onset: 93-34-9958PhktitttVyxpo non-traumatic joint disorders (12 sources)Pain in left [...] diabetes mellitus; Translations: [Diabetes Risk Test Score]Onset: 25-51-8680SarrtgzjOntmifchof disorders (not diabetes) (3 sources)Acute pancreatitis without necrosis or infection, unspecified; Translations: [ACUTE PANCREATITIS WONECRS/INF UNS]Onset: 72-33-3463Xcbwlosy Personality disorders (1 source)Borderline personality disorder; Translations: [Borderline personality disorder]Onset: 204890-33-1054IjoimzmUkfpixkfh by other medications and drugs (4 sources)Intentional drug overdose; Translations: [Suicide attempt by multiple drug overdose]Onset: 288864-47-5173OvbaqoqrTftqwrrq codes; unclassified (1 source)High risk heterosexual behaviorEpisodicResidual codes; unclassified (17 sources)Noncompliance with treatment; Translations: [Noncompliance] 91-51-8564BomvmihkEjvp and subcutaneous tissue infections (10 sources)Cellulitis of neck; Translations: [Cellulitis of neck]03-03-2024 EpisodicSubstance-related disorders (7 sources)Nicotine dependence; Translations: [Cannabis abuse, uncomplicated] Onset: 042129-44-7786DbpnowoVyomnvh on above:Added secondary to documentation in Social History.Substance-related disorders (2 sources)Cannabis use, unspecified, uncomplicated; Translations: [Cannabis use, unspecified, uncomplicated]Onset: 92-50-1724IfidywubBcqwqzhhqfii (1 source)CONTACT W/AND (SUSP) EXPOS COVID-19; Translations: [CONTACT W/AND (SUSP) EXPOS COVID-19]Onset: 65-59-0363Hnitywpleswq (1 source)Patient's noncompliance with other medical treatment and regimen due to unspecified reason; Translations: [Patient's noncompliance with other medical treatment and regimen due to unspecified reason]Onset: 93-28-0890Onqvh infection (15 sources)Genital herpes simplex; Translations: [Herpesviral infection of urogenital system, unspecified]Chronic Past or Other Problems Problem ClassificationProblemDateDocumented DateEpisodic/ChronicHeadache; including migraine (1 source)Headache; including migraineOther aftercare (4 sources)alf (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; 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: [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]Onset: 77-62-3995HbyhfitpBtxvghtljrl; intervertebral disc disorders; other back problems (19 sources)Chronic back pain ; Translations: [Dorsalgia, unspecified]Onset: 716599-01-0606KbqnpqzkNmzvgcw and intentional self-inflicted injury (1 source)Suicidal ideations; Translations: [Suicidal ideations]Onset: 53-02-6940ZpnkyrxzOyiypgpzwxzb (3 sources)Finding of body mass index; Translations: [Body Mass Index]Onset: 02-14-2020 Results Test NameValueInterpretationReference RangeFacilityXR CHEST 1 VWon 63-18-8092WT CHEST 1 VWXR CHEST 1 VW HISTORY: [...] by Manas Nunn MD on 05/09/2025 9:29 [facility] HospitalGlucose Glucometer (BldC) [Mass/Vol]Ordered By: Blue Talbot on 31-76-5623Bmziqil [Mass/Vol]Capillary blood glucose measurement by glucometer (mass/volume)[facility] HospitalComment on above:Random Glucose Reference Range is dependent on time and content of last meal. Glucose of more than 200 mg/dL in a nonstressed, ambulatory subject supports the diagnosis of Diabetes Mellitus.Glucose Poct Glucometerson 31-47-3391Ubjfbnw [Mass/Vol]196 mg/dLNoWakeMed Cary Hospital Physician GroupComment on above:Result Comment: Random Glucose Reference Range is dependent on time and content of last meal. Glucose of more than 200 mg/dL in a nonstressed, ambulatory subject supports the diagnosis of Diabetes Mellitus. PERFORMED BY: [place] [id number] PATHOLOGIST SPECIAL EDUCATION ADMINISTRATOR BRAEDEN COLE M.D.Performed By: #### GLULS #### Point of Care testing ,Rhufrva3Jbq1: Cleaned MeterCape Canaveral Hospital Physician GroupComment on above: Result Comment: PERFORMED BY: [facility] [address] [place] [address] PATHOLOGIST SPECIAL EDUCATION ADMINISTRATOR BRAEDEN COLE M.D.Performed By: #### GLULS #### Point of Care testing ,Glucose [Mass/Vol]246 mg/dLCape Canaveral Hospital Physician GroupComment on above: Result Comment: Random Glucose Reference Range is dependent on time and content of last meal. Glucose of more than 200 mg/dL in a nonstressed, ambulatory subject supports the diagnosis of Diabetes Mellitus.Performed By: #### GLULS #### Point of Care testing ,No Panel InformationOrdered By: Blue Talbot on 90-71-1750Oppowsi Glucose CommentGlu2: cleaned [facility] HospitalGlucose Poct Glucometerson 96-41-7745Memmcwb [Mass/Vol]239 mg/dLNoWakeMed Cary Hospital Physician GroupComment on above:Result Comment: Random Glucose Reference Range is dependent on time and content of last meal. Glucose of more than 200 mg/dL in a nonstressed, ambulatory subject supports the diagnosis of Diabetes Mellitus. PERFORMED BY: [place] [address] PATHOLOGIST SPECIAL EDUCATION ADMINISTRATOR BRAEDEN COLE M.D.Performed By: #### GLULS #### Point of Care testing ,Glucose [Mass/Vol]212 mg/dLCape Canaveral Hospital Physician GroupComment on above: Result Comment: Random Glucose Reference Range is dependent on time and content of last meal. Glucose of more than 200 mg/dL in a nonstressed, ambulatory subject supports the diagnosis of Diabetes Mellitus. PERFORMED BY: [place] [address] PATHOLOGIST SPECIAL EDUCATION ADMINISTRATOR BRAEDEN COLE M.D.Performed By: #### URDS, ADDONUAPLUS #### [place] [address] DNZHkuqrkt9Evf3: Cleaned MeterNoWakeMed Cary Hospital Physician GroupComment on above:Result Comment: PERFORMED BY: [place] [address] PATHOLOGIST SPECIAL EDUCATION ADMINISTRATOR BRAEDEN COLE M.D.Performed By: #### GLULS #### Point of Care testing ,Glucose [Mass/Vol]234 mg/dLNoWakeMed Cary Hospital Physician GroupComment on above: Result Comment: Random Glucose Reference Range is dependent on time and content of last meal. Glucose of more than 200 mg/dL in a nonstressed, ambulatory subject supports the diagnosis of Diabetes Mellitus.Performed By: #### GLULS #### Point of Care testing ,Aovcxiq5Lsh8: Cleaned MeterNoWakeMed Cary Hospital Physician GroupComment on above: Result Comment: PERFORMED BY: [place] [address] PATHOLOGIST SPECIAL EDUCATION ADMINISTRATOR BRAEDEN COLE M.D.Performed By: #### URDS, ADDONUAPLUS #### [place] [address] USAGlucose [Mass/Vol]255 mg/dLNoWakeMed Cary Hospital Physician GroupComment on above:Result Comment: Random Glucose Reference Range is dependent on time and content of last meal. Glucose of more than 200 mg/dL in a nonstressed, ambulatory subject supports the diagnosis of Diabetes Mellitus.Performed By: #### URDS, ADDONUAPLUS #### [place] [address] USAGlucose Poct Glucometerson 11-91-9471Hdxizwj2Dft5: Cleaned MeterNoWakeMed Cary Hospital Physician GroupComment on above:Result Comment: PERFORMED BY: [place] [address] PATHOLOGIST SPECIAL EDUCATION ADMINISTRATOR BRAEDEN COLE M.D.Performed By: #### GLULS #### Point of Care testing ,Glucose [Mass/Vol]230 mg/dLCape Canaveral Hospital Physician GroupComment on above: Result Comment: Random Glucose Reference Range is dependent on time and content of last meal. Glucose of more than 200 mg/dL in a nonstressed, ambulatory subject supports the diagnosis of Diabetes Mellitus.Performed By: #### GLULS #### Point of Care testing ,Lffbxah5Qjt1: Cleaned MeterNoWakeMed Cary Hospital Physician GroupComment on above: Result Comment: PERFORMED BY: [place] [address] PATHOLOGIST SPECIAL EDUCATION ADMINISTRATOR BRAEDEN COLE M.D.Performed By: #### GLULS #### Point of Care testing ,Glucose [Mass/Vol]236 mg/dLCape Canaveral Hospital Physician GroupComment on above: Result Comment: Random Glucose Reference Range is dependent on time and content of last meal. Glucose of more than 200 mg/dL in a nonstressed, ambulatory subject supports the diagnosis of Diabetes Mellitus.Performed By: #### GLULS #### Point of Care testing ,Glucose [Mass/Vol]175 mg/dLCape Canaveral Hospital Physician GroupComment on above: Result Comment: Random Glucose Reference Range is dependent on time and content of last meal. Glucose of more than 200 mg/dL in a nonstressed, ambulatory subject supports the diagnosis of Diabetes Mellitus. PERFORMED BY: [place] [address] PATHOLOGIST SPECIAL EDUCATION ADMINISTRATOR BRAEDEN COLE M.D.Performed By: #### GLULS #### Point of Care testing ,Brdgybk2Udn3: Cleaned MeterNoWakeMed Cary Hospital Physician GroupComment on above: Result Comment: PERFORMED BY: [facility] [place] [address] PATHOLOGIST SPECIAL EDUCATION ADMINISTRATOR BRAEDEN COLE M.D.Performed By: #### GLULS #### Point of Care testing ,Glucose [Mass/Vol]278 mg/dLCape Canaveral Hospital Physician GroupComment on above: Result Comment: Random Glucose Reference Range is dependent on time and content of last meal. Glucose of more than 200 mg/dL in a nonstressed, ambulatory subject supports the diagnosis of Diabetes Mellitus.Performed By: #### GLULS #### Point of Care testing ,Alanine aminotransferase [Enzymatic activity/volume] in Serum or PlasmaOrdered By: Rola Valdes on 82-07-7499UBT [Catalytic activity/Vol]Alanine aminotransferase [Enzymatic activity/volume] in Serum or Plasma7[facility] HospitalAlbumin [Mass/volume] in Serum or Plasma by Bromocresol green (BCG) dye binding methoOrdered By: Rola Valdes on 04-02-2025 Albumin BCG dye [Mass/Vol]Albumin [Mass/volume] in Serum or Plasma by Bromocresol green (BCG) dye binding metho3.5-5.7FChillicothe VA Medical CenterAlkaline phosphatase [Enzymatic activity/volume] in Serum or PlasmaOrdered By: Rola Valdes on 20-74-5585PXO [Catalytic activity/Vol]Alkaline phosphatase [Enzymatic activity/volume] in Serum or Zidonw87-211KfxiuqcvySelect Medical Trihealth Rehabilitation HospitalApolipoprotein Bon 39-88-4566Zeyelrqsxwvbcp B [Mass/Vol] 83 mg/dLNormal<90The [facility] Physician GroupComment on above:Result Comment: Desirable < 90 Borderline High 90 - 99 High 100 - 130 Very High >130 ASCVD RISK THERAPEUTIC TARGET CATEGORY APO B (mg/dL) Very High Risk <80 (if extreme risk <70) High Risk <90 Moderate Risk <90 Performed at: [facility] Lab[address] [id number] Commercial Real Estate Sales Manager: Jermaine Perdomo MD, Phone: [phone] PERFORMED BY: [facility] [address] [place] [address] PATHOLOGIST SPECIAL EDUCATION ADMINISTRATOR BRAEDEN COLE M.D.Performed By: #### GLULS #### Point of Care testing ,Aspartate aminotransferase [Enzymatic activity/volume] in Serum or Plasma Ordered By: Rola Valdes on 21-39-5266SIP [Catalytic activity/Vol] Aspartate aminotransferase [Enzymatic activity/volume] in Serum or PlasmaLow 13-39[facility] HospitalBilirubin.total [Mass/volume] in Serum or PlasmaOrdered By: Rola Valdes on 85-49-2071Ssvchmpvc [Mass/Vol] Bilirubin.total [Mass/volume] in Serum or Plasma0.3-1.0[facility] HospitalCalcium [Mass/volume] in Serum or PlasmaOrdered By: Rola Valdes on 91-61-7117Nyvkmrg [Mass/Vol]Calcium [Mass/volume] in Serum or Plasma8.6-10.3FChillicothe VA Medical CenterCarbon dioxide, total [Moles/volume] in Serum or PlasmaOrdered By: Rola Valdes on 04-02-2025 CO2 [Moles/Vol]Carbon dioxide, total [Moles/volume] in Serum or Oyaaem93.0-31.0 [facility] HospitalChloride [Moles/volume] in Serum or Plasma Ordered By: Rola Valdes on 84-75-6126Qkakliba [Moles/Vol]Chloride [Moles/volume] in Serum or Zljyqp12-829QokmbzmpySelect Medical Trihealth Rehabilitation Hospital Cholesterol [Mass/volume] in Serum or PlasmaOrdered By: Rola Valdes on 37-48-7633Ksowwkbexxq [Mass/Vol]Cholesterol [Mass/volume] in Serum or Plasma Significant change bi335-997UnmakhhsaSelect Medical Trihealth Rehabilitation HospitalComment on above: Delta: 267 on 04/01/25-0455Chol less than 200 mg/dl low riskChol 201-239 mg/dl borderline riskChol 240 mg/dl and greater high riskCholesterol in HDL [Mass/volume] in Serum or PlasmaOrdered By: Rola Valdes on 04-02-2025 Cholesterol in HDL [Mass/Vol]Serum or plasma high density lipoprotein (HDL) cholesterol dkqqjntynul20-01NylzcvyuuSelect Medical Trihealth Rehabilitation HospitalComment on above: HDL CHOL ATP-III CLASSIFICATION Cardiovascular RiskHDL > or equal to 60 mg/dL LOWHDL < 40 mg/dL HIGHCholesterol in LDL Calc [Mass/Vol]Ordered By: Rola Valdes on 65-47-5057Fnhbjbrbmrx in LDL [Mass/Vol]Cholesterol in LDL [Mass/volume] in Serum or Plasma by calculation0-[facility] HospitalComment on above:LDL ATP III CLASSIFICATIONLDL less than 100 mg/dL OptimalLDL 100-129 mg/dL Near or above orvnqfnGIB446-282 mg/dL Borderline highLDL 160-189 mg/dL HighLDL greater than 189 mg/dL Very highCholesterol in LDL [Mass/volume] in Serum or PlasmaOrdered By: Rola Valdes on 04-02-2025 Cholesterol in LDL [Mass/Vol]Cholesterol in LDL [Mass/volume] in Serum or Plasma 0-[facility] HospitalComment on above:LDL ATP III CLASSIFICATIONLDL less than 100 mg/dL OptimalLDL 100-129 mg/dL Near or above afwsqdbKGX791-734 mg/dL Borderline highLDL 160-189 mg/dL HighLDL greater than 189 mg/dL Very highCholesterol in VLDL Calc [Mass/Vol]Ordered By: Rola Valdes on 65-56-5526Ghmkwrldgbl in VLDL [Mass/Vol]Cholesterol in VLDL [Mass/volume] in Serum or Plasma by calculationSelect Medical Trihealth Rehabilitation Hospital Comment on above:Test not performedComprehensive Metabolic Panelon 04-02-2025 Albumin [Mass/Vol]4.0 g/dLNormal3.5-5.7The [facility] Physician GroupComment on above:Order Comment: FASTING YPerformed By: #### GLULS #### Point of Care testing ,Albumin/Globulin [Mass ratio]1.8 {ratio}NormalThe [facility]ician Group Comment on above:Order Comment: FASTING YPerformed By: #### GLULS #### Point of Care testing ,ALP [Catalytic activity/Vol]38 U/WEqnixn98-866Tjq [facility] Comment on above:Order Comment: FASTING YPerformed By: #### GLULS #### Point of Care testing ,ALT [Catalytic activity/Vol]14 U/LNormal7-52The [facility] Comment on above:Order Comment: FASTING YPerformed By: #### GLULS #### Point of Care testing ,Anion gap [Moles/Vol]10.7 mmol/LNormal6.0-15.0[facility] Comment on above:Order Comment: FASTING YPerformed By: #### GLULS #### Point of Care testing ,AST [Catalytic activity/Vol]12 U/CPsw07-92Lbq [facility] Physician GroupComment on above:Order Comment: FASTING YPerformed By: #### GLULS #### Point of Care testing ,Bilirubin [Mass/Vol]0.8 mg/dLNormal0.3-1.0The [facility] Physician GroupComment on above:Order Comment: FASTING YPerformed By: #### GLULS #### Point of Care testing ,Calcium [Mass/Vol]8.7 mg/dLNormal8.6-10.3The [facility] Physician GroupComment on above:Order Comment: FASTING YPerformed By: #### GLULS #### Point of Care testing ,Chloride [Moles/Vol]101 mmol/HBhvtuq40-267Omr [facility] Physician GroupComment on above:Order Comment: FASTING YPerformed By: #### GLULS #### Point of Care testing ,CO2 [Moles/Vol]26.2 mmol/DVmvcva98.0-31.0The [facility] Physician GroupComment on above:Order Comment: FASTING YPerformed By: #### GLULS #### Point of Care testing ,Creatinine [Mass/Vol]0.85 mg/dLNormal0.70-1.30[facility] Comment on above:Order Comment: FASTING YPerformed By: #### GLULS #### Point of Care testing ,Creatinine Clr Calc Cjivysnh848.88NoWakeMed Cary Hospital Physician GroupComment on above:Order Comment: FASTING YPerformed By: #### GLULS #### Point of Care testing ,GFR/1.73 sq M.predicted MDRD (S/P/Bld) [Vol rate/Area]mL/min/{1.73_m2}NormalThe [facility] Physician GroupComment on above:Order Comment: FASTING YPerformed By: #### GLULS #### Point of Care testing ,Globulin (S) [Mass/Vol]2.2 g/dLNoWakeMed Cary Hospital Physician GroupComment on above:Order Comment: FASTING YPerformed By: #### GLULS #### Point of Care testing ,Glucose [Mass/Vol]312 mg/pLBsdg71-567Ggg [facility] Physician GroupComment on above:Order Comment: FASTING YResult Comment: Random Glucose Reference Range is dependent on time and content of last meal. Glucose of more than 200 mg/dL in a nonstressed, ambulatory subject supports the diagnosis of Diabetes Mellitus. ADA recommended reference rangePerformed By: #### GLULS #### Point of Care testing ,Potassium [Moles/Vol]3.9 mmol/LNormal3.5-5.1The [facility] Comment on above:Order Comment: FASTING YPerformed By: #### GLULS #### Point of Care testing ,Protein [Mass/Vol]6.2 g/dLLow6.4-8.9The [facility] Physician GroupComment on above:Order Comment: FASTING YPerformed By: #### GLULS #### Point of Care testing ,Sodium [Moles/Vol]134 mmol/WOyi473-318Ogw [facility] Physician GroupComment on above:Order Comment: FASTING YPerformed By: #### GLULS #### Point of Care testing ,Urea nitrogen [Mass/Vol]14 mg/dLNormal7-25ThWeiser Memorial Hospital Physician GroupComment on above:Order Comment: FASTING YPerformed By: #### GLULS #### Point of Care testing ,Creatinine [Mass/volume] in Serum or PlasmaOrdered By: Rola Valdes on 75-47-9386Smuhatwqcm [Mass/Vol]Creatinine [Mass/volume] in Serum or Plasma 0.70-1.30[facility] HospitalGlobulin Calc (S) [Mass/Vol]Ordered By: Rola Valdes on 73-31-1925Vowumzmz (S) [Mass/Vol]Serum globulin measurement by calculation (mass/volume)[facility] HospitalGlucose Poct Glucometerson 02-80-7845Xcjdvav4Joj9: Cleaned MeterCape Canaveral Hospital Physician GroupComment on above:Result Comment: PERFORMED BY: [place] [address] PATHOLOGIST SPECIAL EDUCATION ADMINISTRATOR BRAEDEN COLE M.D.Performed By: #### GLULS #### Point of Care testing ,Glucose [Mass/Vol]267 mg/dLCape Canaveral Hospital Physician GroupComment on above: Result Comment: Random Glucose Reference Range is dependent on time and content of last meal. Glucose of more than 200 mg/dL in a nonstressed, ambulatory subject supports the diagnosis of Diabetes Mellitus.Performed By: #### GLULS #### Point of Care testing ,Vhpwjcu2Hkw3: Cleaned MeterCape Canaveral Hospital Physician GroupComment on above: Result Comment: PERFORMED BY: [place] [address] PATHOLOGIST SPECIAL EDUCATION ADMINISTRATOR BRAEDEN COLE M.D.Performed By: #### URDS, ADDONUAPLUS #### [facility] [address] [place] [address] USAGlucose [Mass/Vol]308 mg/dLNoWakeMed Cary Hospital Physician GroupComment on above:Result Comment: Random Glucose Reference Range is dependent on time and content of last meal. Glucose of more than 200 mg/dL in a nonstressed, ambulatory subject supports the diagnosis of Diabetes Mellitus.Performed By: #### URDS, ADDONUAPLUS #### [facility] [address] [place] [address] JEREuyjfal7Ogu3: Cleaned MeterCape Canaveral Hospital Physician GroupComment on above:Result Comment: PERFORMED BY: [facility] [address] [place] [address] PATHOLOGIST SPECIAL EDUCATION ADMINISTRATOR BRAEDEN COLE M.D.Performed By: #### GLULS #### Point of Care testing ,Glucose [Mass/Vol]279 mg/dLCape Canaveral Hospital Physician GroupComment on above: Result Comment: Random Glucose Reference Range is dependent on time and content of last meal. Glucose of more than 200 mg/dL in a nonstressed, ambulatory subject supports the diagnosis of Diabetes Mellitus.Performed By: #### GLULS #### Point of Care testing ,Gmwvphm7Ell1: Cleaned MeterNoWakeMed Cary Hospital Physician [facility]ennis Memorial HospitalComment on above: Result Comment: PERFORMED BY: [facility] [address] [place] [address] PATHOLOGIST SPECIAL EDUCATION ADMINISTRATOR BRAEDEN COLE M.D.Performed By: #### GLULS #### Point of Care testing ,Glucose [Mass/Vol]302 mg/dLCape Canaveral Hospital Physician GroupComment on above: Result Comment: Random Glucose Reference Range is dependent on time and content of last meal. Glucose of more than 200 mg/dL in a nonstressed, ambulatory subject supports the diagnosis of Diabetes Mellitus.Performed By: #### GLULS #### Point of Care testing ,Glucose [Mass/volume] in Serum or PlasmaOrdered By: Rola Valdes on 90-93-5503Ejztvts [Mass/Vol]Glucose [Mass/volume] in Serum or OythczUdld12-496 [facility] HospitalComment on above:ADA recommended reference rangeRandom Glucose Reference Range is dependent on time and content of last meal. Glucose of more than 200 mg/dL in a nonstressed, ambulatory subject supports the diagnosisof Diabetes Mellitus.LDL Cholesterol Measuredon 04-02-2025 LDL Cholesterol Tiztucvm32 mg/dLNormal0-100The [facility] Physician GroupComment on above:Order Comment: FASTING YResult Comment: LDL ATP III CLASSIFICATION LDL less than 100 mg/dL Optimal LDL 100-129 mg/dL Near or above optimal LDL 130-159 mg/dL Borderline high LDL 160-189 mg/dL High LDL greater than 189 mg/dL Very high PERFORMED BY: [facility] [address] [place] [address] PATHOLOGIST SPECIAL EDUCATION ADMINISTRATOR BRAEDEN COLE M.D.Performed By: #### GLULS #### Point of Care testing ,Lipaseon 03-16-4237Dvaiwo [Catalytic activity/Vol]39.0 U/HMlkqat87.0-82.0The [facility] Physician GroupComment on above:Order Comment: FASTING YPerformed By: #### GLULS #### Point of Care testing ,Lipase [Enzymatic activity/volume] in Serum or PlasmaOrdered By: Rola Valdes on 91-08-1981Kejlzr [Catalytic activity/Vol]Lipase [Enzymatic activity/volume] in Serum or Cwhwtp52.0-82.0[facility] Lipid Panelon 48-40-3624Berktubrzso [Mass/Vol]196 mg/dLInvalid Interpretation [id number] [facility] Physician GroupComment on above:Order Comment: FASTING YResult Comment: Chol less than 200 mg/dl low risk Chol 201-239 mg/dl borderline risk Chol 240 mg/dl and greater high riskPerformed By: #### GLULS #### Point of Care testing ,Cholesterol in HDL [Mass/Vol]23 mg/oETbghfn55-08Kki [facility] Comment on above:Order Comment: FASTING YResult Comment: HDL CHOL ATP-III CLASSIFICATION Cardiovascular Risk HDL > or equal to 60 mg/dL LOW HDL < 40 mg/dL HIGHPerformed By: #### GLULS #### Point of Care testing ,Cholesterol.total/Cholesterol in HDL [Mass ratio]8.5 {ratio}Normal<5.0The [facility] Physician GroupComment on above:Order Comment: FASTING YResult Comment: PERFORMED BY: [facility] [address] [place] [address] PATHOLOGIST SPECIAL EDUCATION ADMINISTRATOR BRAEDEN COLE M.D.Performed By: #### GLULS #### Point of Care testing ,LDL Cholesterol,Calculated<81Ljgdcp5-478Zcp [facility] Physician GroupComment on above:Order Comment: FASTING YResult Comment: LDL ATP III CLASSIFICATION LDL less than 100 mg/dL Optimal LDL 100-129 mg/dL Near or above optimal LDL 130-159 mg/dL Borderline high LDL 160-189 mg/dL High LDL greater than 189 mg/dL Very highPerformed By: #### GLULS #### Point of Care testing ,Triglyceride w/Qicxtf706 mg/dLHigh0-149The [facility] Physician GroupComment on above:Order Comment: FASTING YResult [...] #### Point of Care testing ,VLDL CHOLESTEROLNot performedNormalThWeiser Memorial Hospital Physician GroupComment on above:Order Comment: FASTING YPerformed By: #### GLULS #### Point of Care testing ,No Panel InformationOrdered By: Rola Valdes on 99-27-9574Kwnlsmskn GFR (CKD-EPI)> 60.0 mL/MinSelect Medical Trihealth Rehabilitation HospitalPharmacy Creatinine Clearance (Awqk419.88[facility] HospitalPotassium [Moles/volume] in Serum or PlasmaOrdered By: Rola Valdes on 08-48-0251Cytexkncw [Moles/Vol]Potassium [Moles/volume] in Serum or Plasma3.5-5.1FChillicothe VA Medical CenterProtein [Mass/volume] in Serum or PlasmaOrdered By: Rola Valdes on 33-25-1490Nwviwtc [Mass/Vol]Protein [Mass/volume] in Serum or PlasmaLow6.4-8.9[facility] HospitalRedraw Vitamin D 25OHon 81-86-5481Ktaioq Vitamin D 25OH18.6 ng/aXSsq83-311Zxj [facility] Comment on above:Result Comment: VITAMIN D STATUS 25(OH)VITAMIN D RANGE (ng/mL) Deficient <20 Insufficient 20 to <30 Sufficient 30 to 100 Reference: Ashley MF,Jodee NC, Christina GUEVARA, et al. Evaluation,treatment, and prevention of vitamin D deficiency; an Endocrine Society clinical practice guideline. JCEM. 2010; 96(7):1911-30. PERFORMED BY: [facility] [place] [address] PATHOLOGIST SPECIAL EDUCATION ADMINISTRATOR BRAEDEN COLE M.D.Performed By: #### GLULS #### Point of Care testing ,Serum or plasma albumin/globulin mass ratioOrdered By: Rola Valdes on 19-58-3284Imbghst/Globulin [Mass ratio]Serum or plasma albumin/globulin mass ratioMercy Health Allen Hospitalerum or plasma anion gap determination Ordered By: Rola Valdes on 57-16-6142Ifkyq gap [Moles/Vol]Serum or plasma anion gap determination6.0-15.0[facility] Hospitalerum or plasma total cholesterol/high density lipoprotein (HDL) cholesterol mass rat Ordered By: Rola Valdes on 63-81-3973Zjseixtksoc.total/Cholesterol in HDL [Mass ratio]Serum or plasma total cholesterol/high density lipoprotein (HDL) cholesterol mass rat<5.0[facility] Hospitalodium [Moles/volume] in Serum or PlasmaOrdered By: Rola Valdes on 81-35-1171Akavpj [Moles/Vol]Sodium [Moles/volume] in Serum or IauwxnGvp683-741DfthabpceSelect Medical Trihealth Rehabilitation HospitalTriglyceride [Mass/volume] in Serum or PlasmaOrdered By: Rola Valdes on 01-03-7763Quipgcawmmqs [Mass/Vol]Triglyceride [Mass/volume] in Serum or PlasmaHigh0-149[facility] HospitalComment on above:If the triglyceride result is greater than 400, LDLC and related calculations cannot be calculated and resulted.TRIG ATP III CLASSIFICATIONTRIG less than 150 mg/dL NormalTRIG 150-199 mg/dL BorderlinehighTRIG 200-500 mg/dL High TRIG greater than 500 mg/dL Very highStandard traceable to the Center for Disease Conrtrol and Prevention (CDC) test method.Urea nitrogen [Mass/volume] in Serum or PlasmaOrdered By: Rola Valdes on 53-73-9683Zbwi nitrogen [Mass/Vol] Urea nitrogen [Mass/volume] in Serum or Plasma7-25[facility] HospitalVitamin B12on 08-26-6254Yvxagzfzm (Vitamin B12) [Mass/Vol]632 pg/mLNormal 180-914The [facility] Physician GroupComment on above:Order Comment: Comment add on to previously drawn specimenResult Comment: PERFORMED BY: [facility] [address] [place] [address] PATHOLOGIST SPECIAL EDUCATION ADMINISTRATOR BRAEDEN COLE M.D.Performed By: #### GLULS #### Point of Care testing ,Vitamin B12 ser/plasOrdered By: Rola Valdes on 29-05-3671Fjmavzurw (Vitamin B12) [Mass/Vol]Vitamin B12 ser/bkkw328-914TeryayeeqSelect Medical Trihealth Rehabilitation HospitalVitamin D+Metabolites [Mass/volume] in Serum or PlasmaOrdered By: Blue Talbot on 65-30-6444Hlelbiz D+Metabolites [Mass/Vol]Vitamin D+Metabolites [Mass/volume] in Serum or HbuewmZxi70-288FdefhvffoSelect Medical Trihealth Rehabilitation HospitalComment on above:VITAMIN D STATUS 25(OH)VITAMIN D RANGE (ng/mL) Deficient <20 Insufficient 20 to <38Wwpkbblphx00 to 100Reference: Ashley MF,Jodee NC, Christina GUEVARA, et al. Evaluation,treatment, and prevention of vitamin D deficiency; an Endocrine Society clinical practice guideline. JCEM. 2010; 96(7):1911-30.A1C with Estimated Average Gluon 37-19-7681Megbwrn [Mass/Vol]240 mg/dLNormalThe [facility] Physician GroupComment on above:Result Comment: PERFORMED BY: [facility] [address] [place] [address] PATHOLOGIST SPECIAL EDUCATION ADMINISTRATOR BRAEDEN COLE M.D.Performed By: #### GLULS #### Point of Care testing ,HbA1c (Bld) [Mass fraction]10.0 %High4.3-5.6The [facility] Comment on above:Result Comment: Increased risk for diabetes: 5.7 - 6.4 diabetes: >6.4 glycemic control for adults with diabetes: <7.0Performed By: #### GLULS #### Point of Care testing ,Blood estimated average glucose determination by estimation from glycated hemoglobinOrdered By: Blue Talbot on 49-16-1228Kipkjcc glucose Estimated from glycated hemoglobin (Bld) [Mass/Vol]Glucose mean value [Mass/volume] in Blood Estimated from glycated hemoglobinSelect Medical Trihealth Rehabilitation HospitalGlucose Poct Glucometerson 97-91-2464Llmzstn6Lwc0: Cleaned Meter [facility] Physician GroupComment on above:Result Comment: PERFORMED BY: [place] [address] PATHOLOGIST SPECIAL EDUCATION ADMINISTRATOR BRAEDEN COLE M.D.Performed By: #### GLULS #### Point of Care testing ,Glucose [Mass/Vol]284 mg/dLCape Canaveral Hospital Physician GroupComment on above: Result Comment: Random Glucose Reference Range is dependent on time and content of last meal. Glucose of more than 200 mg/dL in a nonstressed, ambulatory subject supports the diagnosis of Diabetes Mellitus.Performed By: #### GLULS #### Point of Care testing ,Skeitkt3Yxx2: Cleaned MeterNoWakeMed Cary Hospital Physician GroupComment on above: Result Comment: PERFORMED BY: [place] [phone] PATHOLOGIST SPECIAL EDUCATION ADMINISTRATOR BRAEDEN COLE M.D.Performed By: #### GLULS #### Point of Care testing ,Glucose [Mass/Vol]368 mg/dLCape Canaveral Hospital Physician [facility] HospitalComment on above: Result Comment: Random Glucose Reference Range is dependent on time and content of last meal. Glucose of more than 200 mg/dL in a nonstressed, ambulatory subject supports the diagnosis of Diabetes Mellitus.Performed By: #### GLULS #### Point of Care testing ,Elpdjqj3VjpmejUjoCape Canaveral Hospital Physician GroupComment on above:Result Comment: Glu2: WILL NOTIFY DR/RN PERFORMED BY: [place] [address] PATHOLOGIST SPECIAL EDUCATION ADMINISTRATOR BRAEDEN COLE M.D.Performed By: #### URDS, ADDONUAPLUS #### [address] [address] USAGlucose [Mass/Vol]449 mg/dLOff scale highThe [facility] Physician GroupComment on above:Result Comment: Random Glucose Reference Range is dependent on time and content of last meal. Glucose of more than 200 mg/dL in a nonstressed, ambulatory subject supports the diagnosis of Diabetes Mellitus.Performed By: #### URDS, ADDONUAPLUS #### [facility] [address] [place] [address] USAHemoglobin A1c/Hemoglobin.total in BloodOrdered By: Blue Talbot on 95-01-5011HzK0k (Bld) [Mass fraction]Hemoglobin A1c percentageHigh4.3-5.6FChillicothe VA Medical CenterComment on above:Increased risk for diabetes: 5.7 - 6.4diabetes: >6.4glycemic control for adults with diabetes: <7.0Lipid Panelon 02-08-4423Fhnejvixvlf [Mass/Vol]267 mg/dLHigh 140-200The [facility] Physician [facility] HospitalComment on above:Result Comment: Chol less than 200 mg/dl low risk Chol 201-239 mg/dl borderline risk Chol 240 mg/dl and greater high riskPerformed By: #### GLULS #### Point of Care testing ,Cholesterol in HDL [Mass/Vol]20 mg/wLTsq77-82[facility] Comment on above:Result Comment: HDL CHOL ATP-III CLASSIFICATION Cardiovascular Risk HDL > or equal to 60 mg/dL LOW HDL < 40 mg/dL HIGHPerformed By: #### GLULS #### Point of Care testing ,Cholesterol.total/Cholesterol in HDL [Mass ratio]13.4 {ratio}Normal<5.0The Va HospitalComment on above:Performed By: #### GLULS #### Point of Care testing ,LDL Cholesterol,CalculatedNot performedNormal0-100[facility] Comment on above:Performed By: #### GLULS #### Point of Care testing ,Triglyceride w/Imcmju6582 mg/dLHigh0-149The Va HospitalComment on above:Result Comment: If the triglyceride [...] #### Point of Care testing ,VLDL CHOLESTEROLNot performedNormBaptist Health Boca Raton Regional Hospital Physician GroupComment on above:Performed By: #### GLULS #### Point of Care testing ,Thyroid Stim Hormone w/Rflxon 92-12-6385Rzbdlql Stim Hormone w/Rflx3.72 u[iU]/mLNormal0.45-5.33The [facility] Physician [facility] HospitalComment on above:Performed By: #### GLULS #### Point of Care testing ,Thyrotropin [Units/volume] in Serum or PlasmaOrdered By: Blue Talbot on 76-42-0406SUK QnThyrotropin [Units/volume] in Serum or Plasma0.45-5.33 [facility] HospitalVitamin D 25 Hydroxy Totalon 66-68-8956Qmrocgs D 25 Hydroxy BrywrCexpdt80-028Nzy [facility] Physician [facility] HospitalComment on above: Result Comment: Specimen hemolyzed, redraw requested VITAMIN D STATUS 25(OH)VITAMIN D RANGE (ng/mL) Deficient <20 Insufficient 20 to <30 Sufficient 30 to 100 Reference: Ashley MF,Jodee NC, Christina GUEVARA, et al. Evaluation,treatment, and prevention of vitamin D deficiency; an Endocrine Society clinical practice guideline. JCEM. 2010; 96(7):1911-30. PERFORMED BY: [facility] [address] [place] [address] PATHOLOGIST SPECIAL EDUCATION ADMINISTRATOR BRAEDEN COLE M.D.Performed By: #### GLULS #### Point of Care testing ,Acetaminophenon 07-81-9873Tnmbvbqrwbbak [Mass/Vol]0.1 ug/mLLow10.0-30.0The [facility] Physician [facility] HospitalComment on above:Result Comment: PERFORMED BY: [facility] [address] [place] [address] PATHOLOGIST SPECIAL EDUCATION ADMINISTRATOR BRAEDEN COLE M.D.Performed By: #### GLULS #### Point of Care testing ,Acetaminophen [Mass/volume] in Serum or PlasmaOrdered By: Kris Gross 10-58-5614Rkhczfxyvytsb [Mass/Vol]Acetaminophen [Mass/volume] in Serum or Plasma Low10.0-30.0[facility] HospitalAlanine aminotransferase [Enzymatic activity/volume] in Serum or PlasmaOrdered By: Kris Gross 05-91-2493DJD [Catalytic activity/Vol]Alanine aminotransferase [Enzymatic activity/volume] in Serum or Plasma7-52[facility] HospitalAlbumin [Mass/volume] in Serum or Plasma by Bromocresol green (BCG) dye binding methoOrdered By: Kris Gross 01-50-5569Geqhjms BCG dye [Mass/Vol]Albumin [Mass/volume] in Serum or Plasma by Bromocresol green (BCG) dye binding metho3.5-5.7FChillicothe VA Medical CenterAlkaline phosphatase [Enzymatic activity/volume] in Serum or PlasmaOrdered By: Kris Gross 26-46-0529OPE [Catalytic activity/Vol]Alkaline phosphatase [Enzymatic activity/volume] in Serum or Mxtsqz92-880FfvioiwyhSelect Medical Trihealth Rehabilitation HospitalAspartate aminotransferase [Enzymatic activity/volume] in Serum or PlasmaOrdered By: Kris Gross 75-88-4814ZUD [Catalytic activity/Vol]Aspartate aminotransferase [Enzymatic activity/volume] in Serum or Cworti37-29MjisnmfgeSelect Medical Trihealth Rehabilitation HospitalBilirubin.total [Mass/volume] in Serum or PlasmaOrdered By: Kris Gross 34-03-5224Xzhqzrmcw [Mass/Vol] Bilirubin.total [Mass/volume] in Serum or Plasma0.3-1.0[facility] HospitalCalcium [Mass/volume] in Serum or PlasmaOrdered By: Kris Gross 77-58-4275Pcjqrkc [Mass/Vol]Calcium [Mass/volume] in Serum or Plasma8.6-10.3 [facility] HospitalCarbon dioxide, total [Moles/volume] in Serum or PlasmaOrdered By: Kris Gross 58-94-4649GY4 [Moles/Vol]Carbon dioxide, total [Moles/volume] in Serum or Nwynwi87.0-31.0[facility] HospitalChloride [Moles/volume] in Serum or PlasmaOrdered By: Kris Gross on 22-51-5043Hwqbdoel [Moles/Vol]Chloride [Moles/volume] in Serum or Pdjjcv34-920 [facility] HospitalComprehensive Metabolic Panelon 03-31-2025 Albumin [Mass/Vol]4.5 g/dLNormal3.5-5.7The [facility] Physician GroupComment on above:Performed By: #### GLULS #### Point of Care testing ,Albumin/Globulin [Mass ratio]1.7 {ratio}NormalThe [facility] Comment on above:Performed By: #### GLULS #### Point of Care testing ,ALP [Catalytic activity/Vol]42 U/AChgace56-924Ced [facility]ician [facility] Comment on above:Result Comment: PERFORMED BY: [facility] [address] [place] [address] PATHOLOGIST SPECIAL EDUCATION ADMINISTRATOR BRAEDEN COLE M.D.Performed By: #### GLULS #### Point of Care testing ,ALT [Catalytic activity/Vol]15 U/LNormal7-52The [facility] Comment on above:Performed By: #### GLULS #### Point of Care testing ,Anion gap [Moles/Vol]12.8 mmol/LNormal6.0-15.0The [facility] Comment on above:Performed By: #### GLULS #### Point of Care testing ,AST [Catalytic activity/Vol]18 U/KGaugvq81-98Lik [facility] Comment on above:Performed By: #### GLULS #### Point of Care testing ,Bilirubin [Mass/Vol]0.6 mg/dLNormal0.3-1.0The [facility] Physician GroupComment on above:Performed By: #### GLULS #### Point of Care testing ,Calcium [Mass/Vol]9.2 mg/dLNormal8.6-10.3The [facility] Physician GroupComment on above:Performed By: #### GLULS #### Point of Care testing ,Chloride [Moles/Vol]101 mmol/IZrzlmc75-067Foe [facility] Physician GroupComment on above:Performed By: #### GLULS #### Point of Care testing ,CO2 [Moles/Vol]23.4 mmol/YWxztqc23.0-31.0The [facility] Physician GroupComment on above:Performed By: #### GLULS #### Point of Care testing ,Creatinine [Mass/Vol]0.82 mg/dLNormal0.70-1.30The [facility] Comment on above:Performed By: #### GLULS #### Point of Care testing ,GFR/1.73 sq M.predicted MDRD (S/P/Bld) [Vol rate/Area]mL/min/{1.73_m2}NormalThe [facility] Physician GroupComment on above:Performed By: #### GLULS #### Point of Care testing ,Globulin (S) [Mass/Vol]2.6 g/dLNormalThe [facility] Physician GroupComment on above:Performed By: #### GLULS #### Point of Care testing ,Glucose [Mass/Vol]321 mg/mQLtbb24-252Pbu [facility] Physician GroupComment on above:Result Comment: Random Glucose Reference Range is dependent on time and content of last meal. Glucose of more than 200 mg/dL in a nonstressed, ambulatory subject supports the diagnosis of Diabetes Mellitus. ADA recommended reference rangePerformed By: #### GLULS #### Point of Care testing ,Potassium [Moles/Vol]4.2 mmol/LNormal3.5-5.1The [facility] Comment on above:Result Comment: Hemolysis is present at a level that could interfere with the result. Contact lab if redraw is requiredPerformed By: #### GLULS #### Point of Care testing ,Protein [Mass/Vol]7.1 g/dLNormal6.4-8.9The [facility] Physician GroupComment on above:Performed By: #### GLULS #### Point of Care testing ,Sodium [Moles/Vol]133 mmol/BFjh334-475Hra [facility] Physician GroupComment on above:Performed By: #### GLULS #### Point of Care testing ,Urea nitrogen [Mass/Vol]19 mg/dLNormal7-25The [facility] Physician [facility] HospitalComment on above:Performed By: #### GLULS #### Point of Care testing ,Creatinine [Mass/volume] in Serum or PlasmaOrdered By: Kris Gross on 11-33-1950Njjbklbgel [Mass/Vol]Creatinine [Mass/volume] in Serum or Plasma 0.70-1.30[facility] HospitalEthanol [Mass/volume] in Serum or PlasmaOrdered By: Kris Gross on 05-36-1992Nssyfxl [Mass/Vol]Ethanol [Mass/volume] in Serum or PlasmaSelect Medical Trihealth Rehabilitation HospitalComment on above:Lipemia is present at a level that could interfere with the result.Hemolysis is present at a level that could interfere with the result.Test not performedEthyl Alcohol Profileon 80-82-2241Ddmsbsr [Mass/Vol]mg/dLNoAkron Children's HospitalComment on above:Result Comment: Lipemia is present at a level that could interfere with the result. Hemolysis is present at a level that could interfere with the result.Performed By: #### GLULS #### Point of Care testing ,Percent EthanolNot performedNoAkron Children's HospitalComment on above:Result Comment: PERFORMED BY: [facility] [address] [facility] [place] [address] PATHOLOGIST SPECIAL EDUCATION ADMINISTRATOR BRAEDEN COLE M.D.Performed By: #### GLULS #### Point of Care testing ,Globulin Calc (S) [Mass/Vol]Ordered By: Kris Gross on 81-81-3052Odiyhmpd (S) [Mass/Vol]Serum globulin measurement by calculation (mass/volume)[facility] HospitalGlucose Glucometer (BldC) [Mass/Vol]Ordered By: Blue Talbot on 87-61-5759Ijtsllw [Mass/Vol]Capillary blood glucose measurement by glucometer (mass/volume)[facility] HospitalComment on above:Random Glucose Reference Range is dependent on time and content of last meal. Glucose of more than 200 mg/dL in a nonstressed, ambulatory subject supports the diagnosis of Diabetes Mellitus.Glucose Poct Glucometerson 98-84-5463Orgskif [Mass/Vol]292 mg/dLNormalThe [place]lands Physician GroupComment on above:Result Comment: Random Glucose Reference Range is dependent on time and content of last meal. Glucose of more than 200 mg/dL in a nonstressed, ambulatory subject supports the diagnosis of Diabetes Mellitus. PERFORMED BY: [facility] [address] [place] [address] PATHOLOGIST SPECIAL EDUCATION ADMINISTRATOR BRAEDEN COLE M.D.Performed By: #### GLULS #### Point of Care testing ,Glucose [Mass/volume] in Serum or PlasmaOrdered By: Kris Gross on 03-31-2025 Glucose [Mass/Vol]Glucose [Mass/volume] in Serum or StzoaoHplz57-923ZpvfntjbbSelect Medical Trihealth Rehabilitation HospitalComment on above:ADA recommended reference rangeRandom Glucose Reference Range is dependent on time and content of last meal. Glucose of more than 200 mg/dL in a nonstressed, ambulatory subject supports the diagnosisof Diabetes Mellitus.No Panel InformationOrdered By: Kris Gross on 08-46-0324Eomosmmju GFR (CKD-EPI)> 60.0 mL/MinSelect Medical Trihealth Rehabilitation Hospital Pharmacy Creatinine Clearance (ChemN/[facility] HospitalPotassium [Moles/volume] in Serum or PlasmaOrdered By: Kris Gross on 03-31-2025 Potassium [Moles/Vol]Potassium [Moles/volume] in Serum or Plasma3.5-5.1FChillicothe VA Medical CenterComment on above:Hemolysis is present at a level that could interfere with the result.Contact lab if redraw is requiredProtein [Mass/volume] in Serum or PlasmaOrdered By: Kris Gross on 84-58-4443Aifidsk [Mass/Vol]Protein [Mass/volume] in Serum or Plasma6.4-8.9[facility] Hospitalalicylateon 75-23-6628Fvrifwpcfc<1.5Low15.0-30.0The [facility] Physician GroupComment on above:Result Comment: Patients treated with Sulfasalazine may generate a false high result for Salicylate.Performed By: #### GLULS #### Point of Care testing ,Salicylates [Mass/volume] in Serum or PlasmaOrdered By: Kris Gross on 33-30-2113Zujgrfugfhw [Mass/Vol]Salicylates [Mass/volume] in Serum or PlasmaLow 15.0-30.0[facility] HospitalComment on above:Patients treated with Sulfasalazine may generate a false high result for Salicylate.Serum or plasma albumin/globulin mass ratioOrdered By: Kris Gross on 03-31-2025 Albumin/Globulin [Mass ratio]Serum or plasma albumin/globulin mass ratio [facility] Hospitalerum or plasma anion gap determinationOrdered By: Kris Gross on 05-62-9533Yeral gap [Moles/Vol]Serum or plasma anion gap determination6.0-15.0[facility] Hospitalodium [Moles/volume] in Serum or PlasmaOrdered By: Kris Gross on 19-18-9958Sjqzoi [Moles/Vol]Sodium [Moles/volume] in Serum or OyhrzbCrc872-782SedbruxdeSelect Medical Trihealth Rehabilitation HospitalUrea nitrogen [Mass/volume] in Serum or PlasmaOrdered By: Kris Gross on 03-31-2025 Urea nitrogen [Mass/Vol]Urea nitrogen [Mass/volume] in Serum or Plasma7-25 [facility] HospitalGlucose Glucometer (BldC) [Mass/Vol]Ordered By: Blue Talbot on 49-42-3046Ldplkvk [Mass/Vol]Capillary blood glucose measurement by glucometer (mass/volume)[facility] HospitalComment on above:Random Glucose Reference Range is dependent on time and content of last meal. Glucose of more than 200 mg/dL in a nonstressed, ambulatory subject supports the diagnosis of Diabetes Mellitus.Glucose Poct Glucometerson 16-52-9116Isrtjan [Mass/Vol]142 mg/dLNoWakeMed Cary Hospital Physician GroupComment on above:Result Comment: Random Glucose Reference Range is dependent on time and content of last meal. Glucose of more than 200 mg/dL in a nonstressed, ambulatory subject supports the diagnosis of Diabetes Mellitus. PERFORMED BY: [facility] [address] [place] [address] PATHOLOGIST SPECIAL EDUCATION ADMINISTRATOR CORINNE RITTER M.D.Performed By: #### GLULS #### Point of Care testing ,Glucose [Mass/Vol]164 mg/dLNoWakeMed Cary Hospital Physician GroupComment on above: Result Comment: Random Glucose Reference Range is dependent on time and content of last meal. Glucose of more than 200 mg/dL in a nonstressed, ambulatory subject supports the diagnosis of Diabetes Mellitus. PERFORMED BY: [place] [address] PATHOLOGIST SPECIAL EDUCATION ADMINISTRATOR CORINNE RITTER M.D.Performed By: #### MONET, ADDONUAPLUS #### [facility] [address] [place], [place] [address] USAGlucose Poct Glucometerson 00-12-2983Kbwrjln [Mass/Vol]250 mg/dLNormBaptist Health [facility]oca [facility]aton Regional Hospital Physician GroupComment on above:Result Comment: Random Glucose Reference Range is dependent on time and content of last meal. Glucose of more than 200 mg/dL in a nonstressed, ambulatory subject supports the diagnosis of Diabetes Mellitus. PERFORMED BY: [place] [address] PATHOLOGIST SPECIAL EDUCATION ADMINISTRATOR CORINNE RITTER M.D.Performed By: #### MONET, ADDONUAPLUS #### [address] [address] USAGlucose [Mass/Vol]219 mg/dLNovictorianoMetroHealth Parma Medical Centerbradly [facility] Physician GroupComment on above:Result Comment: Random Glucose Reference Range is dependent on time and content of last meal. Glucose of more than 200 mg/dL in a nonstressed, ambulatory subject supports the diagnosis of Diabetes Mellitus. PERFORMED BY: [place] [id number] PATHOLOGIST SPECIAL EDUCATION ADMINISTRATOR CORINNE RITTER M.D.Performed By: #### GLULS #### Point of Care testing ,Glucose [Mass/Vol]155 mg/dLNoWakeMed Cary Hospital Physician GroupComment on above: Result Comment: Random Glucose Reference Range is dependent on time and content of last meal. Glucose of more than 200 mg/dL in a nonstressed, ambulatory subject supports the diagnosis of Diabetes Mellitus. PERFORMED BY: [place] [id number] PATHOLOGIST SPECIAL EDUCATION ADMINISTRATOR CORINNE RITTER M.D.Performed By: #### URMANIHS, ADDONUAPLUS #### [facility] [address] [place] [address] HHGIshshfg2Yrq1: Cleaned MeterCape Canaveral Hospital Physician GroupComment on above:Result Comment: PERFORMED BY: [place] [address] PATHOLOGIST SPECIAL EDUCATION ADMINISTRATOR CORINNE RITTER M.D.Performed By: #### MONET, ADDONUAPLUS #### [facility] [address] [place] [address] USAGlucose [Mass/Vol]177 mg/dLNoWakeMed Cary Hospital Physician GroupComment on above:Result Comment: Random Glucose Reference Range is dependent on time and content of last meal. Glucose of more than 200 mg/dL in a nonstressed, ambulatory subject supports the diagnosis of Diabetes Mellitus.Performed By: #### MONET, ADDONUAPLUS #### [facility] [address] [place] [address] USANo Panel InformationOrdered By: Blue Talbot on 56-31-2789Syugqps Glucose CommentGlu2: cleaned [facility] HospitalGlucose Poct Glucometerson 98-26-2131Sdebica [Mass/Vol]221 mg/dLNoWakeMed Cary Hospital Physician GroupComment on above:Result Comment: Random Glucose Reference Range is dependent on time and content of last meal. Glucose of more than 200 mg/dL in a nonstressed, ambulatory subject supports the diagnosis of Diabetes Mellitus. PERFORMED BY: [place] [address] PATHOLOGIST SPECIAL EDUCATION ADMINISTRATOR CORINNE RITTER M.D.Performed By: #### URMANISH, ADDONUAPLUS #### [facility] [address] [place] [address] USAGlucose [Mass/Vol]184 mg/dLNoWakeMed Cary Hospital Physician GroupComment on above:Result Comment: Random Glucose Reference Range is dependent on time and content of last meal. Glucose of more than 200 mg/dL in a nonstressed, ambulatory subject supports the diagnosis of Diabetes Mellitus. PERFORMED BY: [address] [place] [address] PATHOLOGIST SPECIAL EDUCATION ADMINISTRATOR CORINNE RITTER M.D.Performed By: #### GLULS #### Point of Care testing ,Glucose [Mass/Vol]216 mg/dLNoWakeMed Cary Hospital Physician GroupComment on above: Result Comment: Random Glucose Reference Range is dependent on time and content of last meal. Glucose of more than 200 mg/dL in a nonstressed, ambulatory subject supports the diagnosis of Diabetes Mellitus. PERFORMED BY: [address] [id number] PATHOLOGIST SPECIAL EDUCATION ADMINISTRATOR CORINNE RITTER M.D.Performed By: #### GLULS #### Point of Care testing ,Glucose [Mass/Vol]143 mg/dLNoWakeMed Cary Hospital Physician GroupComment on above: Result Comment: Random Glucose Reference Range is dependent on time and content of last meal. Glucose of more than 200 mg/dL in a nonstressed, ambulatory subject supports the diagnosis of Diabetes Mellitus. PERFORMED BY: [address] [place] [address] PATHOLOGIST SPECIAL EDUCATION ADMINISTRATOR CORINNE RTITER M.D.Performed By: #### GLULS #### Point of Care testing ,A1C with Estimated Average Gluon 55-71-5390Bevywpn [Mass/Vol]212 mg/dLNoWakeMed Cary Hospital Physician GroupComment on above:Result Comment: PERFORMED BY: [address] [id number] PATHOLOGIST SPECIAL EDUCATION ADMINISTRATOR CORINNE RITTER M.D.Performed By: #### GLULS #### Point of Care testing ,HbA1c (Bld) [Mass fraction]9.0 %High4.3-5.6The [facility] Physician GroupComment on above:Result Comment: Increased risk for diabetes: 5.7 - 6.4 diabetes: >6.4 glycemic control for adults with diabetes: <7.0Performed By: #### GLULS #### Point of Care testing ,Blood estimated average glucose determination by estimation from glycated hemoglobinOrdered By: Blue Talbot on 54-95-1717Ujylovj glucose Estimated from glycated hemoglobin (Bld) [Mass/Vol]Glucose mean value [Mass/volume] in Blood Estimated from glycated hemoglobinSelect Medical Trihealth Rehabilitation HospitalCholesterol [Mass/volume] in Serum or PlasmaOrdered By: Blue Talbot on 52-31-9009Fwnnolgwpnv [Mass/Vol]Cholesterol [Mass/volume] in Serum or Pzzwtc113-680VqrrxqpooSelect Medical Trihealth Rehabilitation HospitalComment on above:Chol less than 200 mg/dl low riskChol 201-239 mg/dl borderline riskChol 240 mg/dl and greater high riskCholesterol in HDL [Mass/volume] in Serum or PlasmaOrdered By: Blue Talbot on 90-40-6117Nmuwkhjuxoq in HDL [Mass/Vol]Serum or plasma high density lipoprotein (HDL) cholesterol measurement Kgx53-36BobbygakpSelect Medical Trihealth Rehabilitation HospitalComment on above:HDL CHOL ATP-III CLASSIFICATION Cardiovascular RiskHDL > or equal to 60 mg/dL LOWHDL < 40 mg/dL HIGHCholesterol in LDL Calc [Mass/Vol]Ordered By: Blue Talbot on 96-12-6260Dzaiehowfyo in LDL [Mass/Vol]Cholesterol in LDL [Mass/volume] in Serum or Plasma by calculation0-[facility] Rehabilitation HospitalComment on above: LDL ATP III CLASSIFICATIONLDL less than 100 mg/dL OptimalLDL 100-129 mg/dL Near or above ddzcsxkVHH667-082 mg/dL Borderline highLDL 160-189 mg/dL HighLDL greater than 189 mg/dL Very highCholesterol in LDL [Mass/volume] in Serum or PlasmaOrdered By: Blue Talbot on 91-70-9367Kchitogxhct in LDL [Mass/Vol]Cholesterol in LDL [Mass/volume] in Serum or Plasma0-100[facility] Rehabilitation HospitalComment on above:LDL ATP III CLASSIFICATIONLDL less than 100 mg/dL OptimalLDL 100-129 mg/dL Near or above vnyajgpWJH194-715 mg/dL Borderline highLDL 160-189 mg/dL HighLDL greater than 189 mg/dL Very high Cholesterol in VLDL Calc [Mass/Vol]Ordered By: Blue Talbot on 28-03-4807Tdzhrscfhhu in VLDL [Mass/Vol]Cholesterol in VLDL [Mass/volume] in Serum or Plasma by [facility]. Bing, MD, Cancer CenterComment on above: Test not performedECG 12 lead ECGon 49-59-5770UXZ 12 lead ECGMANSFIELD [facility] [address] [place] [address] Electrocardiograph Report Signed Patient: Tracie Ramirez MR#: [id number] : 2000 Acct:[id number] Age/Sex: 24 / M ADM Date: 01/05/25 Loc: Room: [address] [place] [address] Type: ADM IN Attending Dr: Blue Talbot [...] Signed By Mónica Rachel MD 0 01/08/25 1633NoWakeMed Cary Hospital Physician GroupFree T4 (Free Thyroxine)on 91-56-1142Uzdw T4 [Mass/Vol]0.78 ng/dLNormal0.61-1.12ThWeiser Memorial Hospital Physician GroupComment on above:Performed By: #### URDS, ADDONUAPLUS #### [address] [address] USAGlucose Poct Glucometerson 47-32-5455Opmxofs [Mass/Vol]195 mg/dLNoWakeMed Cary Hospital Physician GroupComment on above:Result Comment: Random Glucose Reference Range is dependent on time and content of last meal. Glucose of more than 200 mg/dL in a nonstressed, ambulatory subject supports the diagnosis of Diabetes Mellitus. PERFORMED BY: [place] [address] PATHOLOGIST SPECIAL EDUCATION ADMINISTRATOR CORINNE RITTER M.D.Performed By: #### URDS, ADDONUAPLUS #### [place] [address] USAGlucose [Mass/Vol]161 mg/dLCape Canaveral Hospital Physician GroupComment on above:Result Comment: Random Glucose Reference Range is dependent on time and content of last meal. Glucose of more than 200 mg/dL in a nonstressed, ambulatory subject supports the diagnosis of Diabetes Mellitus. PERFORMED BY: [place] [address] PATHOLOGIST SPECIAL EDUCATION ADMINISTRATOR CORINNE RITTER M.D.Performed By: #### URMANISH, ADDONUAPLUS #### [place] [address] USAGlucose [Mass/Vol]208 mg/dLCape Canaveral Hospital Physician GroupComment on above:Result Comment: Random Glucose Reference Range is dependent on time and content of last meal. Glucose of more than 200 mg/dL in a nonstressed, ambulatory subject supports the diagnosis of Diabetes Mellitus. PERFORMED BY: [place] [address] PATHOLOGIST SPECIAL EDUCATION ADMINISTRATOR CORINNE RITTER M.D.Performed By: #### URMANISH, ADDONUAPLUS #### [place] [address] JCNPfajqqk5Ivm2: Cleaned MeterNoWakeMed Cary Hospital Physician GroupComment on above:Result Comment: PERFORMED BY: [place] [address] PATHOLOGIST SPECIAL EDUCATION ADMINISTRATOR CORINNE RITTER M.D.Performed By: #### URMANISH, ADDONUAPLUS #### [address] [place] [address] USAGlucose [Mass/Vol]173 mg/dLNormBaptist Health Boca Raton Regional Hospital Physician GroupComment on above:Result Comment: Random Glucose Reference Range is dependent on time and content of last meal. Glucose of more than 200 mg/dL in a nonstressed, ambulatory subject supports the diagnosis of Diabetes Mellitus.Performed By: #### URMANISH, ADDONUAPLUS #### [facility] [address] [place] [address] USAHemoglobin A1c/Hemoglobin.total in BloodOrdered By: Blue Talbot on 57-16-2430WiD3j (Bld) [Mass fraction]Hemoglobin A1c percentageHigh4.3-5.6FChillicothe VA Medical CenterComment on above:Increased risk for diabetes: 5.7 - 6.4diabetes: >6.4glycemic control for adults with diabetes: <7.0LDL Cholesterol Measuredon 55-51-9675ZAX Cholesterol Ynjgtuxw99 mg/dLNormal0-100The [facility] Physician GroupComment on above:Result Comment: LDL ATP III CLASSIFICATION LDL less than 100 mg/dL Optimal LDL 100-129 mg/dL Near or above optimal LDL 130-159 mg/dL Borderline high LDL 160-189 mg/dL High LDL greater than 189 mg/dL Very highPerformed By: #### MONET, ADDONUAPLUS #### [facility] [address] [place] [address] USALipid Panelon 66-84-7263Khaqqhmepih [Mass/Vol]169 mg/dL Sqfpir333-192Hem [facility] Physician GroupComment on above:Result Comment: Chol less than 200 mg/dl low risk Chol 201-239 mg/dl borderline risk Chol 240 mg/dl and greater high riskPerformed By: #### URMANISH, ADDONUAPLUS #### [facility] [address] [place] [address] USACholesterol in HDL [Mass/Vol]20 mg/xKNvb47-13Amu [facility] Physician GroupComment on above:Result Comment: HDL CHOL ATP-III CLASSIFICATION Cardiovascular Risk HDL > or equal to 60 mg/dL LOW HDL < 40 mg/dL HIGHPerformed By: #### URMANISH, ADDONUAPLUS #### [facility] [address] [place] [address] USACholesterol.total/Cholesterol in HDL [Mass ratio]8.5 {ratio}Normal<5.0The [facility] Physician GroupComment on above:Performed By: #### RENETTA HEALYUAPLUS #### [facility] [address] [place] [address] USALDL Cholesterol,Calculated<87Deegod4-607Cnv [facility] Physician GroupComment on above:Result Comment: LDL ATP III CLASSIFICATION LDL less than 100 mg/dL Optimal LDL 100-129 mg/dL Near or above optimal LDL 130-159 mg/dL Borderline high LDL 160-189 mg/dL High LDL greater than 189 mg/dL Very highPerformed By: #### MONET, RENETTAUAPLUS #### [facility] [address] [place] [address] USATriglyceride w/Rojtfh042 mg/dLHigh0-149The [facility] Physician GroupComment on above:Result Comment: TRIG ATP [...] and resulted.Performed By: #### MONET, ADDROSAURAUAPLUS #### [facility] [address] [place] [address] USAVLDL CHOLESTEROLNot performedNormalThe [facility] Physician GroupComment on above:Performed By: #### MONET, ADDROSAURAUAPLUS #### [facility] [address] [place] [address] USASerum or plasma total cholesterol/high density lipoprotein (HDL) cholesterol mass ratOrdered By: Blue Talbot on 01-06-2025 Cholesterol.total/Cholesterol in HDL [Mass ratio]Serum or plasma total cholesterol/high density lipoprotein (HDL) cholesterol mass rat<5.0[facility] Rehabilitation HospitalThyroid Stim Hormone w/Rflxon 63-98-3917Cojwnhj Stim Hormone w/Rflx6.81 u[iU]/mLHigh0.45-5.33The Va HospitalComment on above:Performed By: #### MONET, ADDONUAPLUS #### [facility] [address] [place] [id number] USAThyrotropin [Units/volume] in Serum or PlasmaOrdered By: Blue Talbot on 09-57-2985VAX QnThyrotropin [Units/volume] in Serum or PlasmaHigh0.45-5.33[facility] HospitalThyroxine (T4) free [Mass/volume] in Serum or PlasmaOrdered By: Blue Talbot on 01-06-2025 Free T4 [Mass/Vol]Thyroxine (T4) free [Mass/volume] in Serum or Plasma0.61-1.12 [facility] HospitalTriglyceride [Mass/volume] in Serum or Plasma Ordered By: Blue Talbot on 38-01-1129Mgitrlaskwvt [Mass/Vol] Triglyceride [Mass/volume] in Serum or PlasmaHigh0-149[facility] Rehabilitation HospitalComment on above:If the triglyceride result is greater than 400, LDLC and related calculations cannot be calculated and resulted.TRIG ATP III CLASSIFICATIONTRIG less than 150 mg/dL NormalTRIG 150-199 mg/dL Borderline highTRIG 200-500 mg/dL High TRIG greater than 500 mg/dL Very highStandard traceable to the Center for Disease Conrtrol and Prevention (CDC) test method. Vitamin D 25 Hydroxy Totalon 90-35-8695Xbhtyyq D 25 Hydroxy Total17.3 ng/mLLow 30-100The [facility] Physician GroupComment on above:Result Comment: VITAMIN D STATUS 25(OH)VITAMIN D RANGE (ng/mL) Deficient <20 Insufficient 20 to <30 Sufficient 30 to 100 Reference: Ashley MF,Jodee NC, Marques-Willian GUEVARA, et al. Evaluation,treatment, and prevention of vitamin D deficiency; an Endocrine Society clinical practice guideline. JCEM. 2010; 96(7):1911-30. PERFORMED BY: [facility] [address] [place] [id number] PATHOLOGIST SPECIAL EDUCATION ADMINISTRATOR CORINNE RITTER M.D.Performed By: #### URDS, ADDONUAPLUS #### [facility] [address] [place] [id number] [facility] CLINICVitamin D+Metabolites [Mass/volume] in Serum or Plasma Ordered By: Blue Talbot on 01-83-4545Kkhipme D+Metabolites [Mass/Vol] Vitamin D+Metabolites [Mass/volume] in Serum or CsquhbJfy45-762FsbqmdhbrSelect Medical Trihealth Rehabilitation HospitalComment on above:VITAMIN D STATUS 25(OH)VITAMIN D RANGE (ng/mL) Deficient <20 Insufficient 20 to <46Djdcjssaxr23 to 100Reference: Ashley MF,Jodee BOB, Christina GUEVARA, et al. Evaluation,treatment, and prevention of vitamin D deficiency; an Endocrine Society clinical practice guideline. JCEM. 2010; 96(7):1911-30.Alanine aminotransferase [Enzymatic activity/volume] in Serum or PlasmaOrdered By: Guillermina Shetty on 75-94-0479DJK [Catalytic activity/Vol]Alanine aminotransferase [Enzymatic activity/volume] in Serum or Plasma7-52[facility] Rehabilitation HospitalAlbumin [Mass/volume] in Serum or Plasma by Bromocresol green (BCG) dye binding methoOrdered By: Guillermina Shetty on 22-15-2851Ypbfnzt BCG dye [Mass/Vol]Albumin [Mass/volume] in Serum or Plasma by Bromocresol green (BCG) dye binding metho3.5-5.7FChillicothe VA Medical CenterAlkaline phosphatase [Enzymatic activity/volume] in Serum or PlasmaOrdered By: Guillermina Shetty on 36-03-6982SKW [Catalytic activity/Vol] Alkaline phosphatase [Enzymatic activity/volume] in Serum or Ndlvxa28-249 [facility] HospitalAmphetamine Screen Ql (U)Ordered By: Guillermina Shetty on 61-77-4037Ppzqiethjmuo Ql (U)Amphetamines screenNegativeSelect Medical Trihealth Rehabilitation HospitalAppearance of UrineOrdered By: Guillermina Shetty on 03-22-6218Qhkfpogdik (U)Urine appearanceCleOhioHealth Berger Hospital Aspartate aminotransferase [Enzymatic activity/volume] in Serum or PlasmaOrdered By: Guillermina Shetty on 07-65-2940ZTX [Catalytic activity/Vol]Aspartate aminotransferase [Enzymatic activity/volume] in Serum or Gbnjws54-63WeiavwiyrSelect Medical Trihealth Rehabilitation HospitalBacteria [Presence] in Urine by AutomatedOrdered By: Guillermina Shetty on 69-73-8918Uuukixmh Auto Ql (U)Bacteria [Presence] in Urine by AutomatedNone SeenSelect Medical Trihealth Rehabilitation HospitalBarbiturates [Presence] in Urine by Screen methodOrdered By: Guillermina Shetty on 41-91-7408Ccirgbwznyeg Screen Ql (U)Barbiturates [Presence] in Urine by Screen methodNegativeSelect Medical Trihealth Rehabilitation HospitalBasophils Auto (Bld) [#/Vol]Ordered By: Guillermina Shetty on 67-82-4257Jnwhtgqat (Bld) [#/Vol]Automated basophil count0.0-0.2FChillicothe VA Medical CenterBasophils/100 WBC Auto (Bld)Ordered By: Guillermina Shetty on 91-98-4375Gjhrntsug/100 WBC (Bld)Automated basophil %.[facility] HospitalBenzodiazepines Screen Ql (U)Ordered By: Guillermina Shetty on 15-18-9265Pfucajmavkgqhjo Ql (U)Benzodiazepines [Presence] in Urine by Screen methodNegativeSelect Medical Trihealth Rehabilitation HospitalBenzoylecgonine [Presence] in Urine by Screen methodOrdered By: Gulilermina Shetty on 69-77-7836Tfioirurrpjyrsq Screen Ql (U)Benzoylecgonine [Presence] in Urine by Screen methodNegative [facility] HospitalBilirubin Test strip Ql (U)Ordered By: Guillermina Shetty on 39-62-3756Vdtohjdhl Ql (U)Bilirubin.total [Presence] in Urine by Test stripNegativeSelect Medical Trihealth Rehabilitation HospitalBilirubin.total [Mass/volume] in Serum or PlasmaOrdered By: Guillermina Shetty on 14-40-1128Cuycdpvsp [Mass/Vol] Bilirubin.total [Mass/volume] in Serum or PlasmaHigh0.3-1.0[facility] HospitalComment on above:Samples from patients who have taken Naproxen have shown spurious elevation in Total Bilirubin levels. A metabolite of Naproxen, O-desmethylnaproxen, has been shown to interfere with the Iza-Kayleen method for measuring Total Bilirubin.Calcium [Mass/volume] in Serum or PlasmaOrdered By: Guillermina Shetty on 13-63-6466Fcqqlot [Mass/Vol] Calcium [Mass/volume] in Serum or Plasma8.6-10.3FChillicothe VA Medical CenterCannabinoids [Presence] in Urine by Screen methodOrdered By: Guillermina Shetty on 21-35-5746Rcscxhkxodpj Screen Ql (U)Cannabinoids [Presence] in Urine by Screen methodHighNegativeSelect Medical Trihealth Rehabilitation HospitalComment on above: These are unconfirmed results and should not be used for legal purposes. Drug Cut-Off Concentration: AMPH 1000 ng/mL KATHLEEN 200 ng/mL CARMEN 200 ng/mL COCM 300 ng/mL OP 300 ng/mL PCP 25 ng/mL THC 20 ng/mLCarbon dioxide, total [Moles/volume] in Serum or PlasmaOrdered By: Guillermina Shetty on 76-53-8510MJ3 [Moles/Vol] Carbon dioxide, total [Moles/volume] in Serum or Lzdizp91.0-31.0[facility] HospitalChloride [Moles/volume] in Serum or PlasmaOrdered By: Guillermina Shetty on 77-53-7831Uyixtdoc [Moles/Vol]Chloride [Moles/volume] in Serum or Yrmnnb71-303CtkolkhqrSelect Medical Trihealth Rehabilitation HospitalColor Auto (U)Ordered By: Guillermina Shetty on 66-69-3799Kvnns (U)Color of Urine by AutoYellowSelect Medical Trihealth Rehabilitation HospitalComprehensive Metabolic Panelon 76-49-7351Hzkodbo [Mass/Vol]4.8 g/dLNormal3.5-5.7The [facility] Physician GroupComment on above: Performed By: #### URMANISH, ADDONUAPLUS #### [facility] [address] [place] [address] USAAlbumin/Globulin [Mass ratio]2.0 {ratio}NormalThe [facility] Physician GroupComment on above:Performed By: #### MONET, ADDONUAPLUS #### [facility] [address] [place] [address] USAALP [Catalytic activity/Vol]34 U/XNuiaqr06-971Xxu [facility] Physician GroupComment on above:Performed By: #### MONET, ADDONUAPLUS #### [facility] [address] [place] [address] USAALT [Catalytic activity/Vol]13 U/LNormal7-52The [facility] Physician GroupComment on above:Performed By: #### MONET, ADDONUAPLUS #### [facility] [address] [place] [address] USAAnion gap [Moles/Vol]10.8 mmol/LNormal6.0-15.0The [facility] Physician GroupComment on above:Performed By: #### MONET, ADDONUAPLUS #### [place] [id number] USAAST [Catalytic activity/Vol]17 U/SNefeqi68-30Ykn [facility] Physician GroupComment on above:Performed By: #### MONET, ADDONUAPLUS #### [place] [id number] USABilirubin [Mass/Vol]1.3 mg/dLHigh0.3-1.0The [facility] Physician GroupComment on above:Result Comment: Samples from patients who have taken Naproxen have shown spurious elevation in Total Bilirubin levels. A metabolite of Naproxen, O-desmethylnaproxen, has been shown to interfere with the Jenaleik-Kallief method for measuring Total Bilirubin.Performed By: #### MONET, ADDONUAPLUS #### [place] [id number] USACalcium [Mass/Vol]9.5 mg/dLNormal8.6-10.3The [facility] Physician GroupComment on above:Performed By: #### MONET, ADDONUAPLUS #### [address] [address] USAChloride [Moles/Vol]103 mmol/HMnylqs83-607Vtb [facility] Physician GroupComment on above:Performed By: #### MONET, ADDONUAPLUS #### [address] [address] USACO2 [Moles/Vol]29.4 mmol/KHfchyr90.0-31.0The [facility] Physician GroupComment on above:Performed By: #### MONET, ADDONUAPLUS #### [facility] [address] [place] [address] USACreatinine [Mass/Vol]1.05 mg/dLNormal0.70-1.30The [facility] Physician GroupComment on above:Performed By: #### MONET, ADDONUAPLUS #### [facility] [address] [place] [address] USACreatinine Clr Calc Khcwbund026.37NormBaptist Health Boca Raton Regional Hospital Physician GroupComment on above:Result Comment: PERFORMED BY: [place] [address] PATHOLOGIST SPECIAL EDUCATION ADMINISTRATOR CORINNE RITTER M.D.Performed By: #### MONET, ADDONUAPLUS #### [place] [address] USAGFR/1.73 sq M.predicted MDRD (S/P/Bld) [Vol rate/Area] mL/min/{1.73_m2}NormalThe [facility] Physician GroupComment on above:Performed By: #### MONET, ADDONUAPLUS #### [facility] [address] [place] [address] USAGlobulin (S) [Mass/Vol]2.4 g/dLCape Canaveral Hospital Physician GroupComment on above:Performed By: #### MONET, ADDONUAPLUS #### [place] [address] USAGlucose [Mass/Vol]185 mg/vHJnmq83-756Mdm [facility] Physician GroupComment on above:Result Comment: Random Glucose Reference Range is dependent on time and content of last meal. Glucose of more than 200 mg/dL in a nonstressed, ambulatory subject supports the diagnosis of Diabetes Mellitus. ADA recommended reference rangePerformed By: #### MONET, ADDONUAPLUS #### [facility] [address] [place] [address] USAPotassium [Moles/Vol]4.2 mmol/LNormal3.5-5.1The [facility] Physician GroupComment on above:Performed By: #### MONET, ADDONUAPLUS #### [facility] [address] [place] [address] USAProtein [Mass/Vol]7.2 g/dLNormal6.4-8.9The [facility] Physician GroupComment on above:Performed By: #### URDS, ADDONUAPLUS #### [facility] [address] [place] [address] USASodium [Moles/Vol]139 mmol/TIzylom717-993Szc [facility] Physician GroupComment on above:Performed By: #### URDS, ADDONUAPLUS #### [facility] [address] [place] [address] USAUrea nitrogen [Mass/Vol]16 mg/dLNormal7-25The [facility] Physician GroupComment on above:Performed By: #### URDS, ADDONUAPLUS #### [place] [address] USACreatinine [Mass/volume] in Serum or PlasmaOrdered By: Guillermina Shetty on 31-19-3986Gakrfbgacl [Mass/Vol]Creatinine [Mass/volume] in Serum or Plasma0.70-1.30[facility] Rehabilitation HospitalDipstick and Microscopicon 58-05-9629Kqayvqhjib (U)ClearNormalClearThe [facility] Physician GroupComment on above:Order Comment: Name Collection Type:: Clean-Voided MidstreamPerformed By: #### URDS, ADDONUAPLUS #### [place] [address] USABacteria,UrineNone SeenNormalNone SeenThe [facility] Physician GroupComment on above:Order Comment: Name Collection Type:: Clean- Voided MidstreamPerformed By: #### URDS, ADDONUAPLUS #### [place] [address] USABilirubin,UrineNegativeNormalNegativeThe [facility] Physician GroupComment on above:Order Comment: Name Collection Type:: Clean- Voided MidstreamPerformed By: #### URDS, ADDONUAPLUS #### [place] [address] USAColor (U)YellowNormalYellowThe [facility] Comment on above:Order Comment: Name Collection Type:: Clean-Voided Midstream Performed By: #### URDS, ADDONUAPLUS #### [place] [address] USAGlucose Ql (U)NormalNormalNormalThe [facility] Physician GroupComment on above:Order Comment: Name Collection Type:: Clean-Voided MidstreamPerformed By: #### URDS, ADDONUAPLUS #### [place] [address] USAHyaline Casts,UrineNoneNormal0-8The [facility] Physician GroupComment on above:Order Comment: Name Collection Type:: Clean-Voided MidstreamPerformed By: #### URDS, ADDONUAPLUS #### [place] [address] USAKetones Ql (U)NegativeNormalNegativeThe [facility] Physician GroupComment on above:Order Comment: Name Collection Type:: Clean- Voided MidstreamPerformed By: #### URDS, ADDONUAPLUS #### [place] [address] USALeukocyte esterase Test strip Ql (U)NegativeNormalNegative The [facility] Physician GroupComment on above:Order Comment: Name Collection Type:: Clean-Voided MidstreamPerformed By: #### URDS, ADDONUAPLUS #### [place] [address] USAMucus,Urine2+Critically abnormalThe [facility] Physician GroupComment on above:Order Comment: Name Collection Type:: Clean-Voided MidstreamResult Comment: PERFORMED BY: [place] [address] PATHOLOGIST SPECIAL EDUCATION ADMINISTRATOR CORINNE RITTER M.D.Performed By: #### URDS, ADDONUAPLUS #### [place] [address] USANitrite,UrineNegativeNormalNegativeLarkin Community Hospital Physician GroupComment on above:Order Comment: Name Collection Type:: Clean-Voided MidstreamPerformed By: #### URDS, ADDONUAPLUS #### [place] [address] USAOccult Blood,UrineNegativeNormalNegativeThe [facility] Physician GroupComment on above:Order Comment: Name Collection Type:: Clean- Voided MidstreamResult Comment: PERFORMED BY: [place] [address] PATHOLOGIST SPECIAL EDUCATION ADMINISTRATOR CORINNE RITTER M.D.Performed By: #### URDS, ADDONUAPLUS #### [place] [address] USApH (U)6.0 [pH]Normal5.0-9.0[facility] Comment on above:Order Comment: Name Collection Type:: Clean-Voided Midstream Performed By: #### URDS, ADDONUAPLUS #### [place] [address] USAProtein (U) [Mass/Vol]20 mg/dLHighNegativeThe [facility] Physician GroupComment on above:Order Comment: Name Collection Type:: Clean- Voided MidstreamPerformed By: #### URDS, ADDONUAPLUS #### [place] [address] USARBC,Razbi8-9Uvadxh1-9Hwf [facility] Physician GroupComment on above:Order Comment: Name Collection Type:: Clean-Voided MidstreamPerformed By: #### URDS, ADDONUAPLUS #### [place] [address] USASpecificy Alden,Urine1.824Wlulcs4.001-1.030The [facility] Physician GroupComment on above:Order Comment: Name Collection Type:: Clean- Voided MidstreamPerformed By: #### URDS, ADDONUAPLUS #### [place] [address] USASquamous Epithelial Cell,Zjkrf2-6Pauzqj7-8Rxo [facility] Physician GroupComment on above:Order Comment: Name Collection Type:: Clean- Voided MidstreamPerformed By: #### URDS, ADDONUAPLUS #### [place] [address] USAUrobilinogen,UrineNormalNormalNormalThe [facility] Physician GroupComment on above:Order Comment: Name Collection Type:: Clean- Voided MidstreamPerformed By: #### URDS, ADDONUAPLUS #### [place] [address] USAWBC,Vcnxf4-1Eyghsp1-0Tjd [facility] Physician GroupComment on above:Order Comment: Name Collection Type:: Clean-Voided MidstreamPerformed By: #### URDS, ADDONUAPLUS #### [place] [address] USADrug Screen,Urineon 25-52-8823Rbpxhorbrog Screen,Urine NegativeNormalNegativeThe [facility] Physician GroupComment on above:Performed By: #### URDS, ADDONUAPLUS #### [place] [address] USABarbiturate Screen,UrineNegativeNormalNegativeThe [facility] Physician GroupComment on above:Performed By: #### URDS, ADDONUAPLUS #### [place] [address] USABenzodiazepines Screen,UrineNegativeNormalNegativeThe [facility] Physician GroupComment on above:Performed By: #### URDS, ADDONUAPLUS #### [place] [address] USACannabinoid Screen,UrinePositiveHighNegativeThe [facility] Physician GroupComment on above:Result Comment: These are unconfirmed results and should not be used for legal purposes. Drug Cut-Off Concentration: AMPH 1000 ng/mL KATHLEEN 200 ng/mL CARMEN 200 ng/mL COCM 300 ng/mL OP 300 ng/mL PCP 25 ng/mL THC 20 ng/mL PERFORMED BY: [place] [address] PATHOLOGIST SPECIAL EDUCATION ADMINISTRATOR CORINNE RITTER M.D.Performed By: #### URDS, ADDONUAPLUS #### [facility] [address] [place] [address] USACocaine Screen,UrineNegativeNormalNegativeThe [facility] Physician GroupComment on above:Performed By: #### URDS, ADDONUAPLUS #### [facility] [address] [place] [address] USAOpiate Screen,UrineNegativeNormalNegativeThe [facility] Physician GroupComment on above:Performed By: #### URDS, ADDONUAPLUS #### [facility] [address] [place] [address] USAPhencyclidine Screen,UrineNegativeNormalNegativeThe [facility] Physician GroupComment on above:Performed By: #### URDS, ADDONUAPLUS #### [facility] [address] [place] [address] USAEosinophils Auto (Bld) [#/Vol]Ordered By: Guillermina Shetty on 15-21-4708Ujwqicfrvac (Bld) [#/Vol]Automated eosinophil count0.0-0.45 [facility] HospitalEosinophils/100 WBC Auto (Bld)Ordered By: Guillermina Shetty on 89-58-7323Ifdqjjsybcl/100 WBC (Bld)Automated eosinophil %. [facility] HospitalEpithelial cells.squamous [#/area] in Urine sediment by Automated countOrdered By: Guillermina Shetty on 29-95-1918Zhxvwhsqcv cells.squamous Auto (Urine sed) [#/Area]Epithelial cells.squamous [#/area] in Urine sediment by Automated count0-2FChillicothe VA Medical CenterErythrocyte distribution width Auto (RBC) [Ratio]Ordered By: Guillermina Shetty on 01-05-2025 Erythrocyte distribution width (RBC) [Ratio]Erythrocyte distribution width [Ratio] by Automated count12.0-14.8[facility] HospitalErythrocyte morphology finding [Identifier] in BloodOrdered By: Guillermina Shetty on 55-86-1208GQW morphology finding Nom (Bld)RBC morphologyNormalSelect Medical [facility] Rehabilitation HospitalErythrocytes [#/area] in Urine sediment by Automated countOrdered By: Guillermina Shetty on 03-87-7871KFP Auto (Urine sed) [#/Area]Erythrocytes [#/area] in Urine sediment by Automated count0-4FChillicothe VA Medical CenterEthanol [Mass/volume] in Serum or PlasmaOrdered By: Guillermina Shetty on 99-20-5169Mvulyvl [Mass/Vol]Ethanol [Mass/volume] in Serum or PlasmaSelect Medical Trihealth Rehabilitation HospitalComment on above:Test not performedEthyl Alcohol Profile on 92-26-3850Qzmntdj [Mass/Vol]mg/dLNoWakeMed Cary Hospital Physician [facility] C. Stennis Memorial HospitalComment on above:Performed By: #### URDS, ADDONUAPLUS #### [facility] [address] [place] [address] USAPercent EthanolNot performedNoAkron Children's HospitalComment on above:Result Comment: PERFORMED BY: [place] [address] PATHOLOGIST SPECIAL EDUCATION ADMINISTRATOR CORINNE RITTER M.D.Performed By: #### MONET, ADDONUAPLUS #### [facility] [address] [place] [address] USAGlobulin Calc (S) [Mass/Vol]Ordered By: Guillermina Shetty on 69-39-6728Qlxlqmgg (S) [Mass/Vol]Serum globulin measurement by calculation (mass/volume)[facility] HospitalGlucose Glucometer (BldC) [Mass/Vol]Ordered By: Guillermina Shetty on 72-83-4353Xqciaiq [Mass/Vol]Capillary blood glucose measurement by glucometer (mass/volume)[facility] HospitalComment on above:Random Glucose Reference Range is dependent on time and content of last meal. Glucose of more than 200 mg/dL in a nonstressed, ambulatory subject supports the diagnosis of Diabetes Mellitus.Glucose Poct Glucometerson 09-83-9216Cgymdlx2Xms0: Cleaned MeterNoAkron Children's HospitalComment on above:Result Comment: PERFORMED BY: [address] [address] PATHOLOGIST SPECIAL EDUCATION ADMINISTRATOR CORINNE RITTER M.D.Performed By: #### MONET, ADDONUAPLUS #### [facility] [address] [place] [address] USAGlucose [Mass/Vol]185 mg/dLNoWakeMed Cary Hospital Physician GroupComment on above:Result Comment: Random Glucose Reference Range is dependent on time and content of last meal. Glucose of more than 200 mg/dL in a nonstressed, ambulatory subject supports the diagnosis of Diabetes Mellitus.Performed By: #### URMANISH, ADDONUAPLUS #### [facility] [address] [place] [address] USAGlucose [Mass/Vol]143 mg/dLNoWakeMed Cary Hospital Physician GroupComment on above:Result Comment: Random Glucose Reference Range is dependent on time and content of last meal. Glucose of more than 200 mg/dL in a nonstressed, ambulatory subject supports the diagnosis of Diabetes Mellitus. PERFORMED BY: [place] [address] PATHOLOGIST SPECIAL EDUCATION ADMINISTRATOR CORINNE RITTER M.D.Performed By: #### MONET, ADDONUAPLUS #### [facility] [address] [place] [id number] USAGlucose [Mass/volume] in Serum or PlasmaOrdered By: Guillermina Shetty on 52-99-5924Vgzjofv [Mass/Vol]Glucose [Mass/volume] in Serum or UkgwcaBxhm54-556JrrntcrodSelect Medical [facility] Rehabilitation HospitalComment on above:ADA recommended reference rangeRandom Glucose Reference Range is dependent on time and content of last meal. Glucose of more than 200 mg/dL in a nonstressed, ambulatory subject supports the diagnosisof Diabetes Mellitus.Glucose [Mass/volume] in Urine by Test stripOrdered By: Guillermina Shetty on 01-05-2025 Glucose Test strip (U) [Mass/Vol]Glucose [Mass/volume] in Urine by Test strip NormalSelect Medical Trihealth Rehabilitation HospitalHematocrit Auto (Bld) [Volume fraction] Ordered By: Guillermina Shetty on 88-32-0469Hroqcedxjf (Bld) [Volume fraction] Hematocrit [Volume Fraction] of Blood by Automated count38.8-50.0[facility] HospitalHemoglobin Test strip Ql (U)Ordered By: Guillermina Shetty on 67-35-1930Jreoomwccf Ql (U)Hemoglobin [Presence] in Urine by Test strip NegativeSelect Medical Trihealth Rehabilitation HospitalHemoglobin [Mass/volume] in Blood Ordered By: Guillermina Shetty on 17-65-9975Foqkovgicq (Bld) [Mass/Vol]Hemoglobin [Mass/volume] in Blood13.0-17.0[facility] HospitalHyaline casts [#/area] in Urine sediment by Automated countOrdered By: Guillermina Shetty on 34-01-4303Bctbfvf casts Auto (Urine sed) [#/Area]Hyaline casts [#/area] in Urine sediment by Automated count0-8[facility] HospitalKetones Test strip Ql (U)Ordered By: Guillermina Shetty on 52-47-5052Mqdsheq Ql (U)Ketones [Presence] in Urine by Test stripNegativeSelect Medical [facility] Hospital Leukocyte esterase [Presence] in Urine by Test stripOrdered By: Guillermina Shetty on 68-99-5643Dstwiauzw esterase Test strip Ql (U)Leukocyte esterase [Presence] in Urine by Test stripNegativeSelect Medical [facility] Rehabilitation HospitalLeukocytes [#/area] in Urine sediment by Automated countOrdered By: Guillermina Shetty on 06-54-8892VEO Auto (Urine sed) [#/Area]Leukocytes [#/area] in Urine sediment by Automated count0-4FChillicothe VA Medical CenterLeukocytes [#/volume] corrected for nucleated erythrocytes in Blood by Automated counOrdered By: Guillermina Shetty on 35-24-1654VFX corrected for nucl RBC Auto (Bld) [#/Vol] Leukocytes [#/volume] corrected for nucleated erythrocytes in Blood by Automated coun4.1-10.5FChillicothe VA Medical CenterLymphocytes Auto (Bld) [#/Vol] Ordered By: Guillermina Shetty on 43-01-3560Zdxymaqlnkd (Bld) [#/Vol]Lymphocytes [#/volume] in Blood by Automated count1.00-4.8[facility] Lymphocytes/100 WBC Auto (Bld)Ordered By: Guillermina Shetty on 01-05-2025 Lymphocytes/100 WBC (Bld)Lymphocytes/100 leukocytes in Blood by Automated count. [facility] HospitalMCH Auto (RBC) [Entitic mass]Ordered By: Guillermina Shetty on 94-71-3380QQF (RBC) [Entitic mass]MCH [Entitic mass] by Automated count27.5-35.2FTrumbull Regional Medical CenterHC Auto (RBC) [Mass/Vol]Ordered By: Guillermina Shetty on 03-07-2123HWLA (RBC) [Mass/Vol]MCHC [Mass/volume] by Automated count32.5-35.6FChillicothe VA Medical CenterMCV Auto (RBC) [Entitic vol]Ordered By: Guillermina Shetty on 09-86-5511TDO (RBC) [Entitic vol]MCV [Entitic volume] by Automated count83.5-101[facility] HospitalMonocyte distribution width [Entitic volume] in Blood by Automated Ordered By: Guillermina Shetty on 00-67-3627Cdzlngoa distribution width Auto (Bld) [Entitic vol]Monocyte distribution width [Entitic volume] in Blood by Automated 0.00-20.00[facility] HospitalMonocytes Auto (Bld) [#/Vol]Ordered By: Guillermina Shetty on 41-36-3638Xqmwthrch (Bld) [#/Vol]Automated blood monocyte count0.0-0.8[facility] HospitalMonocytes/100 WBC Auto (Bld) Ordered By: Guillermina Shetty on 54-10-4334Xnbbjltgy/100 WBC (Bld)Automated monocyte %.[facility] HospitalMucus [Presence] in Urine by AutomatedOrdered By: Guillermina Shetty on 84-48-5830Lkumq Auto Ql (U)Mucus [Presence] in Urine by AutomatedAbnormalSelect Medical Trihealth Rehabilitation Hospital Neutrophils Auto (Bld) [#/Vol]Ordered By: Guillermina Shetty on 01-05-2025 Neutrophils (Bld) [#/Vol]Neutrophils [#/volume] in Blood by Automated count 1.8-7.7FChillicothe VA Medical CenterNeutrophils/100 WBC Auto (Bld)Ordered By: Guillermina Shetty on 53-35-7524Jfjbkaaphhr/100 WBC (Bld)Automated neutrophil % .[facility] HospitalNitrite Test strip Ql (U)Ordered By: Guillermina Shetty on 80-91-9568Bheowdr Ql (U)Nitrite [Presence] in Urine by Test strip NegativeSelect Medical Trihealth Rehabilitation HospitalNo Panel InformationOrdered By: Guillermina Shetty on 33-19-6920Krudkmbpz GFR (CKD-EPI)> 60.0 mL/MinSelect Medical Trihealth Rehabilitation HospitalPharmacy Creatinine Clearance (Jjbj515.37[facility] HospitalNucleated erythrocytes [Presence] in Blood by Automated countOrdered By: Guillermina Shetty on 34-12-4120Ufknenqvy RBC Auto Ql (Bld) Nucleated erythrocytes [Presence] in Blood by Automated count0-0.5FChillicothe VA Medical CenterOpiates [Presence] in Urine by Screen methodOrdered By: Guillermina Shetty on 19-79-9246Qytuvrw Screen Ql (U)Opiates [Presence] in Urine by Screen methodNegativeSelect Medical Trihealth Rehabilitation HospitalPhencyclidine Screen Ql (U)Ordered By: Guillermina Shetty on 17-66-9654Qlukeuihonmfw Ql (U)Phencyclidine [Presence] in Urine by Screen methodNegativeSelect Medical [facility] Rehabilitation Hospital Platelet adequacy [Presence] in Blood by Light microscopyOrdered By: Guillermina Shetty on 97-95-8417Xolgazqoi LM Ql (Bld)Platelet adequacy [Presence] in Blood by Light microscopyNormalSelect Medical Trihealth Rehabilitation HospitalPlatelet mean volume Auto (Bld) [Entitic vol]Ordered By: Guillermina Shetty on 72-50-7524Ybjzppgu mean volume (Bld) [Entitic vol]Platelet mean volume [Entitic volume] in Blood by Automated count6.6-10.1FChillicothe VA Medical CenterPlatelet morphology finding [Identifier] in BloodOrdered By: Guillermina Shetty on 72-63-0139Rdsjtwcr morphology finding Nom (Bld)Platelet morphology finding [Identifier] in Blood NormalSelect Medical Trihealth Rehabilitation HospitalPlatelets Auto (Bld) [#/Vol]Ordered By: Guillermina Shetty on 20-21-0551Idwmnzdqj (Bld) [#/Vol]Platelets [#/volume] in Blood by Automated -266XdgwnwudfSelect Medical Trihealth Rehabilitation HospitalPotassium [Moles/volume] in Serum or PlasmaOrdered By: Guillermina Shetty on 01-05-2025 Potassium [Moles/Vol]Potassium [Moles/volume] in Serum or Plasma3.5-5.1FChillicothe VA Medical CenterProtein Test strip (U) [Mass/Vol]Ordered By: Guillermina Shetty on 26-15-4557Yjztpzg (U) [Mass/Vol]Protein [Mass/volume] in Urine by Test stripHighNegativeSelect Medical Trihealth Rehabilitation HospitalProtein [Mass/volume] in Serum or PlasmaOrdered By: Guillermina Shetty on 97-89-3379Bbrxoio [Mass/Vol] Protein [Mass/volume] in Serum or Plasma6.4-8.9[facility] RBC Auto (Bld) [#/Vol]Ordered By: Guillermina Shetty on 34-86-5744CFC (Bld) [#/Vol] Erythrocytes [#/volume] in Blood by Automated count3.90-5.60[facility] Hospitalcan and CBCon 29-49-3402Oeszcctdk (Bld) [#/Vol]0.0 10*3/uLNormal 0.0-0.2The [facility] Physician GroupComment on above:Performed By: #### URDS, ADDONUAPLUS #### [facility] [address] [place] [address] USABasophils/100 WBC (Bld)0.6 %Normal.The [facility] Physician GroupComment on above:Performed By: #### URDS, ADDONUAPLUS #### [facility] [address] [place] [address] USAEosinophils (Bld) [#/Vol]0.1 10*3/uLNormal0.0-0.45The [facility] Physician GroupComment on above:Performed By: #### URDS, ADDONUAPLUS #### [facility] [address] [place] [address] USAEosinophils/100 WBC (Bld)0.8 %Normal.The [facility] Physician GroupComment on above:Performed By: #### URDS, ADDONUAPLUS #### [facility] [address] [place] [address] USAErythrocyte distribution width (RBC) [Ratio]13.9 %Normal 12.0-14.8The [facility] Physician GroupComment on above:Performed By: #### URDS, ADDONUAPLUS #### [facility] [address] [place] [address] USAHematocrit (Bld) [Volume fraction]47.3 %Jzfiyg12.8-50.0The [facility] Physician GroupComment on above:Performed By: #### URDS, ADDONUAPLUS #### [facility] [address] [place] [address] USAHemoglobin (Bld) [Mass/Vol]16.8 g/gZXlcfsu07.0-17.0The [facility] Physician GroupComment on above:Performed By: #### URDS, ADDONUAPLUS #### [place] [address] USALymphocytes (Bld) [#/Vol]1.9 10*3/uLNormal1.00-4.8The [facility] Physician GroupComment on above:Performed By: #### URDS, ADDONUAPLUS #### [place] [address] USALymphocytes/100 WBC (Bld)24.7 %Normal.The [facility] Physician GroupComment on above:Performed By: #### URDS, ADDONUAPLUS #### [facility] [address] [place] [address] USAMCH (RBC) [Entitic mass]31.2 lkDxhvac18.5-35.2The [facility] Physician GroupComment on above:Performed By: #### URDS, ADDONUAPLUS #### [facility] [address] [place] [address] USAMCV (RBC) [Entitic vol]87.7 pPXfqukl83.5-101The [facility] Physician GroupComment on above:Performed By: #### URDS, ADDONUAPLUS #### [facility] [address] [place] [address] USAMean Corpuscular HGB Conc35.6 g/lIDykdrp68.5-35.6The [facility] Physician GroupComment on above:Performed By: #### URMANISH, ADDONUAPLUS #### [place] [address] USAMonocytes (Bld) [#/Vol]0.5 10*3/uLNormal0.0-0.8The [facility] Physician GroupComment on above:Performed By: #### URMANISH, ADDONUAPLUS #### [place] [address] USAMonocytes/100 WBC (Bld)16.04 %Normal0.00-20.00The [facility] Physician GroupComment on above:Performed By: #### MONET, ADDONUAPLUS #### [place] [address] USAMonocytes/100 WBC (Bld)5.7 %Normal.The [facility] Physician GroupComment on above:Performed By: #### MONET, ADDONUAPLUS #### [place] [address] USANeutrophils (Bld) [#/Vol]5.4 10*3/uLNormal1.8-7.7The [facility] Physician GroupComment on above:Performed By: #### MONET, ADDONUAPLUS #### [place] [address] USANeutrophils/100 WBC (Bld)68.2 %Normal.The [facility] Physician GroupComment on above:Performed By: #### MONET, ADDONUAPLUS #### [place] [address] USANRBC%0.2 /100{WBC}Normal0-0.5The [facility] Comment on above:Performed By: #### MONET, ADDONUAPLUS #### [place] [address] USAPlatelet EstimateNormalNormalNormalThe [facility] Physician GroupComment on above:Performed By: #### MONET, ADDONUAPLUS #### [address] [place] [address] USAPlatelet mean volume (Bld) [Entitic vol]8.1 fLNormal 6.6-10.1The [facility] Physician GroupComment on above:Performed By: #### MONET ADDONUAPLUS #### [place] [address] USAPlatelet MorphologyNormalNormalNormalThe [facility] Physician GroupComment on above:Result Comment: PERFORMED BY: [place] [address] PATHOLOGIST SPECIAL EDUCATION ADMINISTRATOR CORINNE RITTER M.D.Performed By: #### MONET ADDONUAPLUS #### [place] [address] USAPlatelets (Bld) [#/Vol]159 10*3/aVEhtzfn010-572Sjv [facility] Physician GroupComment on above:Performed By: #### MONET, ADDONUAPLUS #### [place] [address] USARBC (Bld) [#/Vol]5.40 10*6/uLNormal3.90-5.60The [facility] Physician GroupComment on above:Performed By: #### MONET ADDONUAPLUS #### [place] [address] USARBC morphology finding Nom (Bld)NormalNormalNormMetroHealth Parma Medical Centere [facility] Physician GroupComment on above:Performed By: #### MONET, ADDONUAPLUS #### [place] [address] USAWBC (Bld) [#/Vol]7.9 10*3/uLNormal4.1-10.5The [facility] Physician GroupComment on above:Performed By: #### MONET ADDONUAPLUS #### [place] [address] USASerum or plasma albumin/globulin mass ratioOrdered By: Guillermina Shetty on 11-67-6264Kiigrdm/Globulin [Mass ratio]Serum or plasma albumin/globulin mass ratioFirelands Regional Medical CenterSerum or plasma anion gap determinationOrdered By: Guillermina Shetty on 18-99-2894Batlw gap [Moles/Vol]Serum or plasma anion gap determination6.0-15.0[facility] Hospitalodium [Moles/volume] in Serum or PlasmaOrdered By: Guillermina Shetty on 07-60-0732Wtdtgp [Moles/Vol]Sodium [Moles/volume] in Serum or Plasma 136-145[facility] Allen Hospitalpecific gravity Test strip (U) [Rel density]Ordered By: Guillermina Shetty on 00-13-1864Msxprqpg gravity (U) [Rel density]Specific gravity of Urine by Test strip1.001-1.030[facility] HospitalUrea nitrogen [Mass/volume] in Serum or PlasmaOrdered By: Guillermina Shetty on 06-72-9890Lmov nitrogen [Mass/Vol]Urea nitrogen [Mass/volume] in Serum or Plasma7-25[facility] HospitalUrobilinogen Test strip (U) [Mass/Vol]Ordered By: Guillermina Shetty on 39-75-8562Eugzbxkqfssn (U) [Mass/Vol] Urobilinogen [Mass/volume] in Urine by Test stripNoSelect Medical [facility] Clinic Rehabilitation Hospital, AvonWBC Auto (Bld) [#/Vol]Ordered By: Guillermina Shetty on 50-99-4266CIB (Bld) [#/Vol]Leukocytes [#/volume] in Blood by Automated count4.1-10.5FChillicothe VA Medical CenterpH Test strip (U)Ordered By: Guillermina Shetty on 93-80-7541rB (U)pH of Urine by Test strip5.0-9.0[facility] HospitalCapillary blood glucose measurement by glucometer (mass/volume)Ordered By: Blue Talbot on 31-11-2547Ueiesfx [Mass/Vol]329 mg/dLNoSelect Medical [facility] Clinic Rehabilitation Hospital, AvonComment on above:Random Glucose Reference Range is dependent [...] the diagnosis of Diabetes Mellitus. PERFORMED BY: [place] [id number] PATHOLOGIST SPECIAL EDUCATION ADMINISTRATOR BEKAH FREED M.D.Performed By: #### GLULS #### Point of Care testing ,Glucose Poct Glucometerson 70-71-4774Ynzwmap5Iak5: Cleaned MeterCape Canaveral Hospital Physician GroupComment on above:Result Comment: PERFORMED BY: [place] [address] PATHOLOGIST SPECIAL EDUCATION ADMINISTRATOR BEKAH FREED M.D.Performed By: #### GLULS #### Point of Care testing ,Glucose [Mass/Vol]336 mg/dLCape Canaveral Hospital Physician GroupComment on above: Result Comment: Random Glucose Reference Range is dependent on time and content of last meal. Glucose of more than 200 mg/dL in a nonstressed, ambulatory subject supports the diagnosis of Diabetes Mellitus.Performed By: #### GLULS #### Point of Care testing ,Glucose [Mass/Vol]261 mg/dLCape Canaveral Hospital Physician GroupComment on above: Result Comment: Random Glucose Reference Range is dependent on time and content of last meal. Glucose of more than 200 mg/dL in a nonstressed, ambulatory subject supports the diagnosis of Diabetes Mellitus. PERFORMED BY: [address] [address] PATHOLOGIST SPECIAL EDUCATION ADMINISTRATOR BEKAH FREED M.D.Performed By: #### GLULS #### Point of Care testing ,No Panel InformationOrdered By: Blue Talbot on 59-29-1044Vxatmqs Glucose CommentGlu2: cleaned [facility] HospitalGlucose Poct Glucometerson 86-93-1021Xzpdhgv8Psk6: Cleaned [facility] Physician GroupComment on above:Result Comment: PERFORMED BY: [address] [address] PATHOLOGIST SPECIAL EDUCATION ADMINISTRATOR BEKAH FREED M.D.Performed By: #### GLULS #### Point of Care testing ,Glucose [Mass/Vol]337 mg/dLCape Canaveral Hospital Physician GroupComment on above: Result Comment: Random Glucose Reference Range is dependent on time and content of last meal. Glucose of more than 200 mg/dL in a nonstressed, ambulatory subject supports the diagnosis of Diabetes Mellitus.Performed By: #### GLULS #### Point of Care testing ,Rfkqqwy3Yni6: Cleaned MeterCape Canaveral Hospital Physician GroupComment on above: Result Comment: PERFORMED BY: [place] [address] PATHOLOGIST SPECIAL EDUCATION ADMINISTRATOR BEKAH FREED M.D.Performed By: #### GLULS #### Point of Care testing ,Glucose [Mass/Vol]307 mg/dLCape Canaveral Hospital Physician GroupComment on above: Result Comment: Random Glucose Reference Range is dependent on time and content of last meal. Glucose of more than 200 mg/dL in a nonstressed, ambulatory subject supports the diagnosis of Diabetes Mellitus.Performed By: #### GLULS #### Point of Care testing ,Tvdmank4Mfo9: Cleaned MeterCape Canaveral Hospital Physician GroupComment on above: Result Comment: PERFORMED BY: [place] [address] PATHOLOGIST SPECIAL EDUCATION ADMINISTRATOR BEKAH FREED M.D.Performed By: #### GLULS #### Point of Care testing ,Glucose [Mass/Vol]385 mg/dLCape Canaveral Hospital Physician GroupComment on above: Result Comment: Random Glucose Reference Range is dependent on time and content of last meal. Glucose of more than 200 mg/dL in a nonstressed, ambulatory subject supports the diagnosis of Diabetes Mellitus.Performed By: #### GLULS #### Point of Care testing ,Wdntrhx5Mlk3: Cleaned MeterCape Canaveral Hospital Physician GroupComment on above: Result Comment: PERFORMED BY: [place] [address] PATHOLOGIST SPECIAL EDUCATION ADMINISTRATOR BEKAH FREED M.D.Performed By: #### GLULS #### Point of Care testing ,Glucose [Mass/Vol]232 mg/dLCape Canaveral Hospital Physician GroupComment on above: Result Comment: Random Glucose Reference Range is dependent on time and content of last meal. Glucose of more than 200 mg/dL in a nonstressed, ambulatory subject supports the diagnosis of Diabetes Mellitus.Performed By: #### GLULS #### Point of Care testing ,XR lumbar spine 2-3V*on 79-53-3802WW lumbar spine 2-3V*[facility] [address] [place] [address] XRay Report Signed Patient: Tracie Ramirez MR#: [id number] : 2000 Acct:[id number] Age/Sex: 24 / M ADM Date: 08/01/24 Loc: Room: [address] [place] [address] Type: ADM IN Attending Dr: Blue Talbot [...] Tristan Bruno II, MD 08/03/242032 Signed By: 08/03/242035[facility] Physician GroupXR thoracic spine 2Von 90-31-3762IF thoracic spine 2VMANSFIELD [facility] [address] [place] [address] XRay Report Signed Patient: Tracie Ramirez MR#: [id number] : 2000 Acct:[id number] Age/Sex: 24 / M ADM Date: 08/01/24 Loc: Room: [address] [place] [address] Type: ADM IN Attending Dr: Blue Talbot [...] Tristan Bruno II, MD 08/03/242030 Signed By: 08/03/242032[facility] Physician GroupCholesterol [Mass/volume] in Serum or PlasmaOrdered By: Blue Talbot on 86-07-1694Aerxsbbgrfj [Mass/Vol]149 mg/rMFqqpqy352-706VelbpmhbeSelect Medical Trihealth Rehabilitation HospitalComment on above:Chol less than 200 mg/dl low riskChol 201-239 mg/dl borderline riskChol 240 mg/dl and greater high riskResult Comment: Chol less than 200 mg/dl low risk Chol 201-239 mg/dl borderline risk Chol 240 mg/dl and greater high riskPerformed By: #### GLULS #### Point of Care testing ,Cholesterol in LDL Calc [Mass/Vol]Ordered By: Blue Talbot on 70-22-1410Xdcgolalfvs in LDL [Mass/Vol][facility] Comment on above:Test not performedCholesterol in LDL [Mass/volume] in Serum or PlasmaOrdered By: Blue Talbot on 53-60-7401Envmsaiqazi in LDL [Mass/Vol]58 mg/dL0-100[facility] Rehabilitation HospitalComment on above:LDL ATP III CLASSIFICATIONLDL less than 100 mg/dL OptimalLDL 100-129 mg/dL Near or above hnihopdBLY330-235 mg/dL Borderline highLDL 160-189 mg/dL HighLDL greater than 189 mg/dL Very highCholesterol in VLDL Calc [Mass/Vol]Ordered By: Blue Talbot on 61-99-2176Kfvjtgbnpuj in VLDL [Mass/Vol]113 mg/dL [facility] HospitalGlucose Poct Glucometerson 97-94-5949Secthlg [Mass/Vol]353 mg/dLNoWakeMed Cary Hospital Physician GroupComment on above:Result Comment: Random Glucose Reference Range is dependent on time and content of last meal. Glucose of more than 200 mg/dL in a nonstressed, ambulatory subject supports the diagnosis of Diabetes Mellitus. PERFORMED BY: [address] [address] PATHOLOGIST SPECIAL EDUCATION ADMINISTRATOR BEKAH FREED M.D.Performed By: #### GLULS #### Point of Care testing ,Glucose [Mass/Vol]281 mg/dLCape Canaveral Hospital Physician GroupComment on above: Result Comment: Random Glucose Reference Range is dependent on time and content of last meal. Glucose of more than 200 mg/dL in a nonstressed, ambulatory subject supports the diagnosis of Diabetes Mellitus. PERFORMED BY: [address] [address] PATHOLOGIST SPECIAL EDUCATION ADMINISTRATOR BEKAH FREED M.D.Performed By: #### MONET, ADDONUAPLUS #### [place] [address] EDBVvauqfx4Fqg7: Cleaned MeterNoWakeMed Cary Hospital Physician GroupComment on above:Result Comment: PERFORMED BY: [place] [address] PATHOLOGIST SPECIAL EDUCATION ADMINISTRATOR BEKAH FREED M.D.Performed By: #### MONET, ADDONUAPLUS #### [place] [address] USAGlucose [Mass/Vol]296 mg/dLNoWakeMed Cary Hospital Physician GroupComment on above:Result Comment: Random Glucose Reference Range is dependent on time and content of last meal. Glucose of more than 200 mg/dL in a nonstressed, ambulatory subject supports the diagnosis of Diabetes Mellitus.Performed By: #### MONET, ADDONUAPLUS #### [place] [address] USAGlucose [Mass/Vol]277 mg/dLNoWakeMed Cary Hospital Physician GroupComment on above:Result Comment: Random Glucose Reference Range is dependent on time and content of last meal. Glucose of more than 200 mg/dL in a nonstressed, ambulatory subject supports the diagnosis of Diabetes Mellitus. PERFORMED BY: [place] [address] PATHOLOGIST SPECIAL EDUCATION ADMINISTRATOR BEKAH FREED M.D.Performed By: #### MONET, ADDONUAPLUS #### [place] [id number] USALDL Cholesterol Measuredon 54-84-2958GRR Cholesterol Uivnjwwj08 mg/dLNormal0-100The [facility] Physician GroupComment on above:Result Comment: LDL ATP III CLASSIFICATION LDL less than 100 mg/dL Optimal LDL 100-129 mg/dL Near or above optimal LDL 130-159 mg/dL Borderline high LDL 160-189 mg/dL High LDL greater than 189 mg/dL Very highPerformed By: #### GLULS #### Point of Care testing ,Lipid Panelon 22-99-0134CKR Cholesterol,CalculatedNot performedNormal0-100[facility] Physician [facility] HospitalComment on above:Performed By: #### GLULS #### Point of Care testing ,Triglyceride w/Ozuwoy854 mg/dLHigh0-149The [facility] Physician [facility] HospitalComment on above:Result Comment: TRIG ATP III [...] GLULS #### Point of Care testing ,VLDL XIDNMFJEUEI126 mg/dLNoAdena Health Systeme [facility] Physician [facility] HospitalComment on above: Performed By: #### GLULS #### Point of Care testing ,Serum or plasma high density lipoprotein (HDL) cholesterol measurementOrdered By: Blue Talbot on 49-28-8181Htllinchmwe in HDL [Mass/Vol]22 mg/dLLow 23-92[facility] HospitalComment on above:HDL CHOL ATP-III CLASSIFICATION Cardiovascular [...] on 08-02-2024 Cholesterol.total/Cholesterol in HDL [Mass ratio]6.8 {ratio}Normal<5.0[facility] HospitalComment on above:Performed By: #### GLULS #### Point of Care testing ,Thyroid Stim Hormone w/Rflxon 18-79-0592Rtgcmnw Stim Hormone w/Rflx2.94 u[iU]/mLNormal0.45-5.33The [facility] Physician [facility] HospitalComment on above:Performed By: #### GLULS #### Point of Care testing ,Thyrotropin [Units/volume] in Serum or PlasmaOrdered By: Blue Talbot on 41-22-1952UUJ Qn2.94 m[IU]/L0.45-5.33[facility] Triglyceride [Mass/volume] in Serum or PlasmaOrdered By: Blue Talbot on 60-25-6133Jeqkswczwsxf [Mass/Vol]569 mg/dLHigh0-149[facility] HospitalComment on above:If the triglyceride result is greater than 400, LDLC and related calculations cannot be calculated and resulted.TRIG ATP III CLASSIFICATIONTRIG less than 150 mg/dL NormalTRIG 150-199 mg/dL Borderline highTRIG 200-500 mg/dL High TRIG greater than 500 mg/dL Very highStandard traceable to the Center for Disease Conrtrol and Prevention (CDC) test method. Vitamin D 25 Hydroxy Totalon 68-22-7965Orygesc D 25 Hydroxy Total31.4 ng/mL Wlijox92-137Gcu [facility] Physician GroupComment on above:Result Comment: VITAMIN D STATUS 25(OH)VITAMIN D RANGE (ng/mL) Deficient <20 Insufficient 20 to <30 Sufficient 30 to 100 Reference: Jodee Shrestha, Christina GUEVARA, et al. Evaluation,treatment, and prevention of vitamin D deficiency; an Endocrine Society clinical practice guideline. JCEM. 2010; 96(7):1911-30. PERFORMED BY: [address] [place] [address] PATHOLOGIST SPECIAL EDUCATION ADMINISTRATOR BEKAH FREED M.D.Performed By: #### GLULS #### Point of Care testing ,Vitamin D+Metabolites [Mass/volume] in Serum or PlasmaOrdered By: Blue Talbot on 04-04-0024Withflt D+Metabolites [Mass/Vol]31.4 ng/pY94-044LbwxcdhuySelect Medical Trihealth Rehabilitation HospitalComment on above:VITAMIN D STATUS 25(OH)VITAMIN D RANGE (ng/mL) Deficient <20 Insufficient 20 to <61Ajzraylizk04 to 100Reference: Jodee Shrestha, Christina GUEVARA, et al. Evaluation,treatment, and prevention of vitamin D deficiency; an Endocrine Society clinical practice guideline. JCEM. 2010; 96(7):1911-30.Alanine aminotransferase [Enzymatic activity/volume] in Serum or PlasmaOrdered By: Octavio Patrick on 40-75-4346MLL [Catalytic activity/Vol]16 U/LNormal7-52[facility] HospitalComment on above:Performed By: #### GLULS #### Point of Care testing ,Albumin [Mass/volume] in Serum or Plasma by Bromocresol green (BCG) dye binding methoOrdered By: Octavio Patrick on 56-01-2960Ufgncpy BCG dye [Mass/Vol]4.2 g/dL 3.5-5.7FChillicothe VA Medical CenterAlkaline phosphatase [Enzymatic activity/volume] in Serum or PlasmaOrdered By: Octavio Patrick on 89-79-4826DTN [Catalytic activity/Vol]43 U/RNvkzvs64-098PvgywezcfSelect Medical [facility]health Rehabilitation Hospital Comment on above:Performed By: #### GLULS #### Point of Care testing ,Amphetamine Screen Ql (U)Ordered By: Octavio Patrick on 57-75-6923Slfjpepscrzd Ql (U)NegativeNegativeSelect Medical Trihealth Rehabilitation HospitalAspartate aminotransferase [Enzymatic activity/volume] in Serum or PlasmaOrdered By: Octavio Patrick on 11-38-1084SBR [Catalytic activity/Vol]12 U/HEnx29-51SfxvqaoubSelect Medical Trihealth Rehabilitation HospitalComment on above:Result Comment: PERFORMED BY: [address] [place] [address] PATHOLOGIST SPECIAL EDUCATION ADMINISTRATOR BEKAH FREED M.D.Performed By: #### GLULS #### Point of Care testing ,Automated basophil %Ordered By: Ocatvio Patrick on 92-81-2739Rmcwutfih/100 WBC (Bld)0.6 %Normal.[facility] HospitalComment on above:Performed By: #### GLULS #### Point of Care testing ,Automated basophil countOrdered By: Octavio Patrick on 69-89-4838Kskbvirva (Bld) [#/Vol]0.1 10*3/uLNormal0.0-0.2FChillicothe VA Medical CenterComment on above:Result Comment: PERFORMED BY: [facility] [address] [place] [address] PATHOLOGIST SPECIAL EDUCATION ADMINISTRATOR BEKAH FREED M.D.Performed By: #### GLULS #### Point of Care testing ,Automated blood monocyte countOrdered By: Octavio Patrick on 93-09-1337Unsjutwyv (Bld) [#/Vol]0.4 10*3/uLNormal0.0-0.8[facility] HospitalComment on above:Performed By: #### GLULS #### Point of Care testing ,Automated eosinophil %Ordered By: Octavio Patrick on 48-02-3887Vaxmslnjmou/100 WBC (Bld)0.7 %Normal.[facility] HospitalComment on above:Performed By: #### GLULS #### Point of Care testing ,Automated eosinophil countOrdered By: Octavio Patrick on 16-89-6163Eqqtyrtztjo (Bld) [#/Vol]0.1 10*3/uLNormal0.0-0.45[facility] HospitalComment on above:Performed By: #### GLULS #### Point of Care testing ,Automated monocyte %Ordered By: Octavio Patrick on 57-25-0148Zrcnsnfbm/100 WBC (Bld)4.6 %Normal.[facility] HospitalComment on above:Performed By: #### GLULS #### Point of Care testing ,Automated neutrophil %Ordered By: Octavio Patrick on 92-40-5470Wnnommfryau/100 WBC (Bld)59.5 %Normal.[facility] HospitalComment on above: Performed By: #### GLULS #### Point of Care testing ,Bacteria [Presence] in Urine by AutomatedOrdered By: Octavio Patrick on 58-87-3785Eusjnerj Auto Ql (U)None seen [HPF]None SeenSelect Medical Trihealth Rehabilitation HospitalBarbiturates [Presence] in Urine by Screen methodOrdered By: Octavio Patrick on 85-80-9479Nttsufrzijvi Screen Ql (U)NegativeNegativeSelect Medical Trihealth Rehabilitation HospitalBenzodiazepines Screen Ql (U)Ordered By: Octavio Patrick on 24-53-9480Nmlxyxxzvjrzjfe Ql (U)NegativeNegativeSelect Medical Trihealth Rehabilitation HospitalBenzoylecgonine [Presence] in Urine by Screen methodOrdered By: Octavio Patrick on 86-37-8735Ityycleildrbrmu Screen Ql (U)NegativeNegMercy Health St. Elizabeth Youngstown HospitalBilirubin Test strip Ql (U)Ordered By: Octavio Patrick on 65-12-6960Susgipujv Ql (U)NegativeNegMercy Health St. [facility] Hospital Bilirubin.total [Mass/volume] in Serum or PlasmaOrdered By: Octavio Patrick on 06-01-5163Chimqxhjx [Mass/Vol]0.9 mg/dLNormal0.3-1.0[facility] HospitalComment on above:Performed By: #### GLULS #### Point of Care testing ,Calcium [Mass/volume] in Serum or PlasmaOrdered By: Octavio Patrick on 08-01-2024 Calcium [Mass/Vol]9.4 mg/dLNormal8.6-10.3FChillicothe VA Medical Center Comment on above:Performed By: #### GLULS #### Point of Care testing ,Cannabinoids [Presence] in Urine by Screen methodOrdered By: Octavio Patrick on 92-56-6029Druoaxdoiyos Screen Ql (U)NegativeNegMercy Health St. Elizabeth Youngstown HospitalComment on above:These are unconfirmed results and should not be used for legal purposes. Drug Cut-Off Concentration: AMPH 1000 ng/mL KATHLEEN 200 ng/mL CARMEN 200 ng/mL COCM 300 ng/mL OP 300 ng/mL PCP 25 ng/mL THC 20 ng/mLCapillary blood glucose measurement by glucometer (mass/volume)Ordered By: Octavio Patrick on 04-30-7642Mtpdkgs [Mass/Vol]352 mg/dLUC [facility] Comment on above:Random Glucose Reference Range [...] Serum or PlasmaOrdered By: Octavio Patrick on 30-14-7610KY6 [Moles/Vol]27.8 mmol/ZIfgeet28.0-31.0[facility] HospitalComment on above:Performed By: #### GLULS #### Point of Care testing ,Chloride [Moles/volume] in Serum or PlasmaOrdered By: Octavio Patrick on 65-09-0312Dgsknndf [Moles/Vol]98 mmol/HSohuzs50-286YxqloeuliSelect Medical Trihealth Rehabilitation HospitalComment on above:Performed By: #### GLULS #### Point of Care testing ,Color of Urine by AutoOrdered By: Octavio Patrick on 67-37-7938Ghmdn (U) Light-yellowNormalYellowSelect Medical Trihealth Rehabilitation HospitalComment on above:Order Comment: Name Collection Type:: Clean-Voided MidstreamPerformed By: #### URDS, ADDONUAPLUS #### [place] [address] USAComplete Blood Count Auto Diffon 59-66-7766Iows Corpuscular HGB Conc36.9 g/vLKeul55.5-35.6[facility] Physician [facility] HospitalComment on above:Performed By: #### GLULS #### Point of Care testing ,Monocytes/100 WBC (Bld)15.15 %Normal0.00-20.00[facility] Physician [facility] Comment on above:Performed By: #### GLULS #### Point of Care testing ,NRBC%0.3 /100{WBC}Normal0-0.5The [facility] Physician [facility] HospitalComment on above: Performed By: #### GLULS #### Point of Care testing ,Comprehensive Metabolic Panelon 20-54-8403Vxckfov LevelNormal3.5-5.7The [facility] Physician [facility] HospitalComment on above:Result Comment: Specimen hemolyzed, redraw requestedPerformed By: #### GLULS #### Point of Care testing ,Albumin/Globulin [Mass ratio]Not performedNormalThe [facility] Physician [facility] Comment on above:Performed By: #### GLULS #### Point of Care testing ,Anion gap [Moles/Vol]Not performedNormal6.0-15.0[facility]ician Group Comment on above:Performed By: #### GLULS #### Point of Care testing ,Aspartate Amino TwcvcwnphbvKuuxpv94-70Yfv [facility] Physician GroupComment on above:Result Comment: Specimen hemolyzed, redraw requestedPerformed By: #### GLULS #### Point of Care testing ,Creatinine Clr Calc Pjrpezja430.07NoWakeMed Cary Hospital Physician GroupComment on above:Result Comment: PERFORMED BY: [facility] [place] [address] PATHOLOGIST SPECIAL EDUCATION ADMINISTRATOR BEKAH FREED M.D.Performed By: #### GLULS #### Point of Care testing ,GFR/1.73 sq M.predicted MDRD (S/P/Bld) [Vol rate/Area]mL/min/{1.73_m2}NormalThe [facility] Physician GroupComment on above:Performed By: #### GLULS #### Point of Care testing ,GlobulinNot performedNoWakeMed Cary Hospital Physician GroupComment on above: Performed By: #### GLULS #### Point of Care testing ,PotassiumNormal3.5-5.1The [facility] Physician GroupComment on above:Result Comment: Specimen hemolyzed, redraw requestedPerformed By: #### GLULS #### Point of Care testing ,SnbkrdFjmkqb361-455Ocp [facility] Physician GroupComment on above:Result Comment: Specimen hemolyzed, redraw requestedPerformed By: #### GLULS #### Point of Care testing ,Total ProteinNormal6.4-8.9The [facility] Physician GroupComment on above:Result Comment: Specimen hemolyzed, redraw requestedPerformed By: #### GLULS #### Point of Care testing ,Creatinine [Mass/volume] in Serum or PlasmaOrdered By: Octavio Patrick on 88-30-5211Adrgpkivmg [Mass/Vol]1.02 mg/dLNormal0.70-1.30[facility] HospitalComment on above:Performed By: #### GLULS #### Point of Care testing ,Dipstick and Microscopicon 08-08-1180Bhbtfncq,UrineNone SeenNormalNone SeenLarkin Community Hospital Physician GroupComment on above:Order Comment: Name Collection Type:: Clean-Voided MidstreamPerformed By: #### URDS, ADDONUAPLUS #### [place] [address] USABilirubin,UrineNegativeNormalNegativeThe [facility] Physician GroupComment on above:Order Comment: Name Collection Type:: Clean- Voided MidstreamPerformed By: #### URDS, ADDONUAPLUS #### [place] [address] USAGlucose Ql (U)>=1000HighNoWakeMed Cary Hospital Physician GroupComment on above:Order Comment: Name Collection Type:: Clean-Voided MidstreamPerformed By: #### URDS, ADDONUAPLUS #### [place] [address] USAHyaline Casts,UrineNoneNormal0-8The [facility] Physician GroupComment on above:Order Comment: Name Collection Type:: Clean-Voided MidstreamPerformed By: #### URDS, ADDONUAPLUS #### [place] [address] USAMucus,UrineRareNormalThe [facility] Physician GroupComment on above:Order Comment: Name Collection Type:: Clean-Voided MidstreamResult Comment: PERFORMED BY: [place] [address] PATHOLOGIST SPECIAL EDUCATION ADMINISTRATOR BEKAH FREED M.D.Performed By: #### URDS, ADDONUAPLUS #### [place] [address] USANitrite,UrineNegativeNormalNegativeLarkin Community Hospital Physician GroupComment on above:Order Comment: Name Collection Type:: Clean-Voided MidstreamPerformed By: #### URDS, ADDONUAPLUS #### [place] [address] USAOccult Blood,UrineNegativeNormalNegativeThe [facility] Physician GroupComment on above:Order Comment: Name Collection Type:: Clean- Voided MidstreamResult Comment: PERFORMED BY: [place] [address] PATHOLOGIST SPECIAL EDUCATION ADMINISTRATOR BEKAH FREED M.D.Performed By: #### URDS, ADDONUAPLUS #### [place] [address] USARBC,Ryyvj9-2Mrpohl0-6Gkm [facility] Physician GroupComment on above:Order Comment: Name Collection Type:: Clean-Voided MidstreamPerformed By: #### URDS, ADDONUAPLUS #### [place] [address] USASpecificy Alden,Urine1.801Uiar6.001-1.030The [facility] Physician GroupComment on above:Order Comment: Name Collection Type:: Clean- Voided MidstreamPerformed By: #### URDS, ADDONUAPLUS #### [place] [address] USASquamous Epithelial Cell,Spazg9-2Gemjiw6-3Zps [facility] Physician GroupComment on above:Order Comment: Name Collection Type:: Clean- Voided MidstreamPerformed By: #### URDS, ADDONUAPLUS #### [place] [address] USAUrobilinogen,UrineNormalNormalNormalThe [facility] Physician GroupComment on above:Order Comment: Name Collection Type:: Clean- Voided MidstreamPerformed By: #### URDS, ADDONUAPLUS #### [place] [address] USAWBC,Nnamt9-8Ediloy0-2Thk [facility] Physician GroupComment on above:Order Comment: Name Collection Type:: Clean-Voided MidstreamPerformed By: #### URDS, ADDONUAPLUS #### [place] [address] USADrug Screen,Urineon 70-55-1082Dkjnsejumne Screen,Urine NegativeNormalNegativeThe [facility] Physician GroupComment on above:Performed By: #### URDS, ADDONUAPLUS #### [place] [address] USABarbiturate Screen,UrineNegativeNormalNegativeThe [facility] Physician GroupComment on above:Performed By: #### URDS, ADDONUAPLUS #### [place] [address] USABenzodiazepines Screen,UrineNegativeNormalNegativeThe [facility] Physician GroupComment on above:Performed By: #### URDS, ADDONUAPLUS #### [place] [address] USACannabinoid Screen,UrineNegativeNormalNegativeThe [facility] Physician GroupComment on above:Result Comment: These are unconfirmed results and should not be used for legal purposes. Drug Cut-Off Concentration: AMPH 1000 ng/mL KATHLEEN 200 ng/mL CARMEN 200 ng/mL COCM 300 ng/mL OP 300 ng/mL PCP 25 ng/mL THC 20 ng/mL PERFORMED BY: [place] [address] PATHOLOGIST SPECIAL EDUCATION ADMINISTRATOR BEKAH FREED M.D.Performed By: #### URDS, ADDONUAPLUS #### [place] [address] USACocaine Screen,UrineNegativeNormalNegativeThe [facility] Physician GroupComment on above:Performed By: #### URDS, ADDONUAPLUS #### [place] [address] USAOpiate Screen,UrineNegativeNormalNegativeThe [facility] Physician GroupComment on above:Performed By: #### URDS, ADDONUAPLUS #### [place] [address] USAPhencyclidine Screen,UrineNegativeNormalNegativeThe [facility] Physician GroupComment on above:Performed By: #### URDS, ADDONUAPLUS #### [place] [address] USAECG 12 lead ECGon 15-90-1307YFE 12 lead [facility]MAN[facility] [address] [place] [address] Electrocardiograph Report Signed Patient: Tracie Ramirez MR#: [id number] : 2000 Acct:[id number] Age/Sex: 24 / M ADM Date: 08/01/24 Loc: 1S Room: [address] [place] [address] Type: ADM IN Attending Dr: Blue Talbot [...] rhythm Normal ECG Confirmed by Lynnette Daniels ([id number]) on 08/02/2024 10:16:21 AM Referred By: Electronically Signed By: Lynnette Daniels Transcribed By: MUS Signed By Lynnette Daniels MD [address] [place] [address] Physician GroupEpithelial cells.squamous [#/area] in Urine sediment by Automated countOrdered By: Octavio Patrick on 08-01-2024 Epithelial cells.squamous Auto (Urine sed) [#/Area]1-2 [HPF]0-2FChillicothe VA Medical CenterErythrocyte distribution width [Ratio] by Automated count Ordered By: Octavio Patrick on 78-52-3303Dgasekndwuy distribution width (RBC) [Ratio]13.7 %Rvwxao47.0-14.8Select Medical Trihealth Rehabilitation HospitalComment on above: Performed By: #### GLULS #### Point of Care testing ,Erythrocytes [#/area] in Urine sediment by Automated countOrdered By: Octavio Patrick on 28-36-4555OVG Auto (Urine sed) [#/Area]1-2 [HPF]0-4FChillicothe VA Medical CenterErythrocytes [#/volume] in Blood by Automated countOrdered By: Octavio Patrick on 63-09-6629LNT (Bld) [#/Vol]5.39 10*6/uLNormal3.90-5.60Select [facility] Rehabilitation HospitalComment on above:Performed By: #### GLULS #### Point of Care testing ,Ethanol [Mass/volume] in Serum or PlasmaOrdered By: Octavio Patrick on 08-01-2024 Ethanol [Mass/Vol]mg/dLNoSelect Medical Cleveland Clinic Rehabilitation Hospital, AvonComment on above: Performed By: #### GLULS #### Point of Care testing ,Ethanol [Mass/Vol][facility] OhioComment on above:Test not performedEthyl Alcohol Profileon 61-62-3357Duydyja EthanolNot performedNormal The [facility] Physician [facility] HospitalComment on above:Result Comment: PERFORMED BY: [place] [address] PATHOLOGIST SPECIAL EDUCATION ADMINISTRATOR BEKAH FREED M.D.Performed By: #### GLULS #### Point of Care testing ,Globulin Calc (S) [Mass/Vol]Ordered By: Octavio Patrick on 05-93-2795Bsnggfaq (S) [Mass/Vol][facility] OhioComment on above:Test not performedGlucose Poct Glucometerson 59-82-9726Nqldxqt [Mass/Vol]330 mg/dLNormal The [facility] Physician [facility] St[facility] Memorial HospitalComment on above:Result Comment: Random Glucose Reference Range is dependent on time and content of last meal. Glucose of more than 200 mg/dL in a nonstressed, ambulatory subject supports the diagnosis of Diabetes Mellitus. PERFORMED BY: [place] [address] PATHOLOGIST SPECIAL EDUCATION ADMINISTRATOR BEKAH FREED M.D.Performed By: #### URDS, ADDONUAPLUS #### [place] [address] USAGlucose [Mass/Vol]251 mg/dLNoWakeMed Cary Hospital Physician [facility] Stennis Memorial HospitalComment on above:Result Comment: Random Glucose Reference Range is dependent on time and content of last meal. Glucose of more than 200 mg/dL in a nonstressed, ambulatory subject supports the diagnosis of Diabetes Mellitus. PERFORMED BY: [place] [address] PATHOLOGIST SPECIAL EDUCATION ADMINISTRATOR BEKAH FREED M.D.Performed By: #### GLULS #### Point of Care testing ,Weoclcw7QopsiiGmvCape Canaveral Hospital Physician [facility] Stennis Memorial HospitalComment on above:Result Comment: Glu2: WILL NOTIFY DR/RN PERFORMED BY: [facility] [place] [address] PATHOLOGIST SPECIAL EDUCATION ADMINISTRATOR BEKAH FREED M.D.Performed By: #### GLULS #### Point of Care testing ,Glucose [Mass/volume] in Serum or PlasmaOrdered By: Octavio Patrick on 08-01-2024 Glucose [Mass/Vol]206 mg/oAGgqe99-848PesjvdjanSelect Medical Trihealth Rehabilitation HospitalComment on above:ADA recommended reference rangeRandom Glucose [...] by Test stripOrdered By: Octavio Patrick on 50-98-5047Nrnphip Test strip (U) [Mass/Vol]>=1000 mg/dLHighScotland County Memorial HospitalalSelect Medical Trihealth Rehabilitation HospitalHematocrit [Volume Fraction] of Blood by Automated count Ordered By: Octavio Patrick on 63-82-4294Ffwkcuunic (Bld) [Volume fraction]45.4 % Glhvmq08.8-50.0[facility] Rehabilitation HospitalComment on above:Performed By: #### GLULS #### Point of Care testing ,Hemoglobin Test strip Ql (U)Ordered By: Octavio Patrick on 40-18-6579Qoqamdqcbn Ql (U)NegativeNegativeSelect Medical Trihealth Rehabilitation HospitalHemoglobin [Mass/volume] in BloodOrdered By: Octavio Patrick on 31-63-2216Isoyrxgsuq (Bld) [Mass/Vol]16.8 g/vZWdprsj00.0-17.0[facility] HospitalComment on above:Performed By: #### GLULS #### Point of Care testing ,Hyaline casts [#/area] in Urine sediment by Automated countOrdered By: Octavio Patrick on 43-55-8351Spgjjju casts Auto (Urine sed) [#/Area]None [LPF]0-8 [facility] HospitalKetones [Presence] in Urine by Test strip Ordered By: Octavio Patrick on 16-61-4725Dpnvwyw Ql (U)1+HighNegativeSelect Medical Trihealth Rehabilitation HospitalComment on above:Order Comment: Name Collection Type:: Clean-Voided MidstreamPerformed By: #### URDS, ADDONUAPLUS #### [facility] [address] [place], [place] [id number] USALeukocyte esterase [Presence] in Urine by Test strip Ordered By: Octavio Patrick on 97-58-8153Nykrawene esterase Test strip Ql (U) NegativeNormalNegMercy Health St. Elizabeth Youngstown HospitalComment on above:Order Comment: Name Collection Type:: Clean-Voided MidstreamPerformed By: #### URDS, ADDONUAPLUS #### [facility] [address] [place], [place] [address] USALeukocytes [#/area] in Urine sediment by Automated count Ordered By: Octavio Patrick on 19-53-2935AXP Auto (Urine sed) [#/Area]1-2 [HPF]0-4 [facility] HospitalLeukocytes [#/volume] corrected for nucleated erythrocytes in Blood by Automated counOrdered By: Octavio Patrick on 08-01-2024 WBC corrected for nucl RBC Auto (Bld) [#/Vol]8.6 10*3/uL4.1-10.5FChillicothe VA Medical CenterLeukocytes [#/volume] in Blood by Automated countOrdered By: Octavio Patrick on 40-99-8651KXH (Bld) [#/Vol]8.6 10*3/uLNormal4.1-10.5 [facility] HospitalComment on above:Performed By: #### GLULS #### Point of Care testing ,Lymphocytes [#/volume] in Blood by Automated countOrdered By: Octavio Patrick on 83-73-2116Wjbcjxdbtzb (Bld) [#/Vol]3.0 10*3/uLNormal1.00-4.8[facility] Rehabilitation HospitalComment on above:Performed By: #### GLULS #### Point of Care testing ,Lymphocytes/100 leukocytes in Blood by Automated countOrdered By: Octavio Patrick on 05-68-7676Yyhsyxtlsmj/100 WBC (Bld)34.6 %Normal.[facility] Tri[facility] Rehabilitation HospitalComment on above:Performed By: #### GLULS #### Point of Care testing ,MCH [Entitic mass] by Automated countOrdered By: Octavio Patrick on 35-75-5924CMC (RBC) [Entitic mass]31.1 fxJuhvas21.5-35.2FChillicothe VA Medical Center Comment on above:Performed By: #### GLULS #### Point of Care testing ,MCHC Auto (RBC) [Mass/Vol]Ordered By: Octavio Patrick on 80-04-4345TMGZ (RBC) [Mass/Vol]36.9 g/tBWoes55.5-35.6FChillicothe VA Medical CenterMCV [Entitic volume] by Automated countOrdered By: Octavio Patrick on 10-03-8366OUB (RBC) [Entitic vol]84.3 dEGvbfww45.5-101Select [facility] Tri[facility] Rehabilitation HospitalComment on above:Performed By: #### GLULS #### Point of Care testing ,Monocyte distribution width [Entitic volume] in Blood by AutomatedOrdered By: Octavio Patrick on 51-93-2285Jdnxmzrf distribution width Auto (Bld) [Entitic vol] 15.15 %0.00-20.00[facility] HospitalMucus [Presence] in Urine by AutomatedOrdered By: Octavio Patrick on 43-04-8282Xopws Auto Ql (U)Rare [LPF] [facility] HospitalNeutrophils [#/volume] in Blood by Automated countOrdered By: Octavio Patrick on 06-50-3302Zizjjxdnzas (Bld) [#/Vol]5.1 10*3/uL Normal1.8-7.7FChillicothe VA Medical CenterComment on above:Performed By: #### GLULS #### Point of Care testing ,Nitrite Test strip Ql (U)Ordered By: Octavio Patrick on 02-84-0434Rxkrkfa Ql (U) NegativeNegativeSelect Medical Trihealth Rehabilitation HospitalNo Panel InformationOrdered By: Octavio Patrick on 74-56-2480Pdbhuxf Glucose CommentSee commentSelect Medical Trihealth Rehabilitation HospitalComment on above:Glu2: WILL NOTIFY DR/RNEstimated GFR (CKD-EPI)> 60.0 mL/MinSelect Medical Trihealth Rehabilitation HospitalPharmacy Creatinine Clearance (Chem 135.07[facility] HospitalNucleated erythrocytes [Presence] in Blood by Automated countOrdered By: Octavio Patrick on 74-10-3706Kwioycnnp RBC Auto Ql (Bld)0.3 /100{WBC}0-0.5FChillicothe VA Medical CenterOpiates [Presence] in Urine by Screen methodOrdered By: Octavio Patrick on 08-01-2024 Opiates Screen Ql (U)NegativeNegMercy Health St. [facility] Hospital Phencyclidine Screen Ql (U)Ordered By: Octavio Patrick on 42-15-9002Eozfekpyqmwuf Ql (U)NegativeNegMercy Health St. Elizabeth Youngstown HospitalPlatelet mean volume [Entitic volume] in Blood by Automated countOrdered By: Octavio Patrick on 59-80-5443Lglgxsgf mean volume (Bld) [Entitic vol]7.9 fLNormal6.6-10.1FChillicothe VA Medical CenterComment on above:Performed By: #### GLULS #### Point of Care testing ,Platelets [#/volume] in Blood by Automated countOrdered By: Octavio Patrick on 04-42-7659Ducqdepla (Bld) [#/Vol]160 10*3/fSYthrsj586-862GwbyhbsvcSelect Medical Trihealth Rehabilitation HospitalComment on above:Performed By: #### GLULS #### Point of Care testing ,Potassium [Moles/volume] in Serum or PlasmaOrdered By: Octavio Patrick on 21-67-5198Ulzkqemnp [Moles/Vol]4.1 mmol/LNormal3.5-5.1FChillicothe VA Medical CenterComment on above:Performed By: #### GLULS #### Point of Care testing ,Protein [Mass/volume] in Serum or PlasmaOrdered By: Octavio Patrick on 08-01-2024 Protein [Mass/Vol]6.9 g/dLNormal6.4-8.9[facility] Rehabilitation HospitalComment on above:Performed By: #### GLULS #### Point of Care testing ,Protein [Mass/volume] in Urine by Test stripOrdered By: Octavio Patrick on 87-46-4299Aupsdxq (U) [Mass/Vol]20 mg/dLHighNegativeSelect Medical Trihealth Rehabilitation HospitalComment on above:Order Comment: Name Collection Type:: Clean-Voided MidstreamPerformed By: #### URDS, ADDONUAPLUS #### [facility] [address] [place] [address] USARedraw Rosie 63-35-8117Jesyxc BJMMbvbzd54-04Xbf [facility] Physician GroupComment on above:Result Comment: Specimen hemolyzed, redraw requested PERFORMED BY: [facility] [address] [place] [address] PATHOLOGIST SPECIAL EDUCATION ADMINISTRATOR BEKAH FREED M.D.Performed By: #### GLULS #### Point of Care testing ,Redraw Albumin Levelon 09-23-8754Jazmmll [Mass/Vol]4.2 g/dLNormal3.5-5.7The [facility] Physician GroupComment on above:Performed By: #### GLULS #### Point of Care testing ,Redraw Potassiumon 41-96-2420Kfubga PotassiumNormal3.5-5.1The [facility] Physician GroupComment on above:Result Comment: Specimen hemolyzed, redraw requestedPerformed By: #### GLULS #### Point of Care testing ,Serum or plasma albumin/globulin mass ratioOrdered By: Octavio Patrick on 80-61-7364Deswggw/Globulin [Mass ratio][facility] Comment on above:Test not performedSerum or plasma anion gap determination Ordered By: Octavio Patrick on 21-28-9962Fvqdh gap [Moles/Vol][facility] OhioComment on above:Test not performedSodium [Moles/volume] in Serum or PlasmaOrdered By: Octavio Patrick on 99-97-3511Mibmbc [Moles/Vol]134 mmol/RWds001-093SwxvexkjxSelect Medical Trihealth Rehabilitation HospitalComment on above:Performed By: #### GLULS #### Point of Care testing ,Specific gravity Test strip (U) [Rel density]Ordered By: Octavio Patrick on 60-45-3122Akbfpngp gravity (U) [Rel density]1.834Updo4.001-1.030[facility] HospitalUrea nitrogen [Mass/volume] in Serum or PlasmaOrdered By: Octavio Patrick on 88-74-2896Dogh nitrogen [Mass/Vol]14 mg/dLNormal7-25[facility] HospitalComment on above:Performed By: #### GLULS #### Point of Care testing ,Urine appearanceOrdered By: Octavio Patrick on 72-27-2146Tmzrdavwco (U)Clear NormalCleOhioHealth Berger HospitalComment on above:Order Comment: Name Collection Type:: Clean-Voided MidstreamPerformed By: #### URDS, ADDONUAPLUS #### [facility] [address] [place] [address] USAUrobilinogen Test strip (U) [Mass/Vol]Ordered By: Octavio Patrick on 07-77-5593Nlawriqjlnlo (U) [Mass/Vol]Normal mg/dLNormPike Community HospitalpH of Urine by Test stripOrdered By: Octavio Patrick on 33-01-5324iY (U)6.0 [pH]Normal5.0-9.0[facility] HospitalComment on above:Order Comment: Name Collection Type:: Clean-Voided MidstreamPerformed By: #### URDS, ADDONUAPLUS #### [facility] [address] [place] [address] TQFYcG9t HPLC (Bld) [Mass fraction]on 04-34-3694XoP2b (Bld) [Mass fraction]%[facility] Medical CenterPatient Letter FTon 81-11-3114Kdibhwu Letter [facility] [place] [facility] [place] June 02, 2024 TR[address]Z [address] [place] [id number] : 2000 [address] Mr. Tracie Ramirez, You [...] appreciate your consideration regarding any future cancellations. Sincerely,[facility] HospitalXR Knee Complete Left*on 02-30-7403CW Knee Complete Left*TECHNIQUE: AP, lateral and oblique [...] signed by Darien Lugo on 03/05/2023 1626NormalNorthern Griffin Hospital AUTO DIFFon 63-76-9860SJLL #0.0 103/ulNormal0.0-0.1 [facility] HospitalComment on above:Performed By: #### POCGLUC #### [facility] [address] [address] [address] Taylor GarciaBasophils/100 WBC (Bld)0.6 %Normal0.2-2.0[facility] Comment on above:Performed By: #### POCGLUC #### [facility] [address] [address] [address] Taylor Mills #0.1 103/ulNormal0.0-0.7The [facility] Medical CenterComment on above: Performed By: #### POCGLUC #### [facility] [address] [address] [address] Taylor Pulliamosinophils/100 WBC (Bld)1.7 %Normal0.9-7.0[facility] Comment on above:Performed By: #### POCGLUC #### [facility] [address] [address] [address] Taylor Pulliamrythrocyte distribution width (RBC) [Ratio]12.7 %Zfdmjk67.0-15.0 [facility] HospitalComment on above:Performed By: #### POCGLUC #### [facility] [address] [place] [address] Dr. Taylor Moyeratokarlit (Bld) [Volume fraction]38.6 %Critically low42.0-54.0 The [facility] CenterComment on above:Performed By: #### POCGLUC #### [facility] [address] [place] [address] Dr. Taylor GarciaHemoglobin (Bld) [Mass/Vol]14.0 g/rQEjkbdy00.0-18.0The [facility] CenterComment on above:Performed By: #### POCGLUC #### [facility] [address] [place] [address] Dr. Taylor Elder #0.08 10e3/ulCritically high0.00-0.03The [facility] Comment on above:Performed By: #### POCGLUC #### [facility] [address] [place] [address] Dr. Taylor Elder %1.6 %Critically high0.0-0.5The [facility] CenterComment on above:Performed By: #### POCGLUC #### [facility] [address] [place] [address] Dr. Taylor Del Toro #1.7 103/ulNormal1.2-3.8The [facility] CenterComment on above:Performed By: #### POCGLUC #### [facility] [address] [place] [address] Dr. Taylor Solomonhocytes/100 WBC (Bld)33.4 %Bzixyd43.5-60.0The [facility] CenterComment on above:Performed By: #### POCGLUC #### [facility] [address] [place] [address] Dr. Taylor DamonUAL DIFF REQNONormalThe [facility] CenterComment on above: Performed By: #### POCGLUC #### [facility] [address] [place] [address] Dr. Taylor Hurst (RBC) [Entitic mass]31.7 guKvlcss18.9-34.0The [facility] CenterComment on above:Performed By: #### POCGLUC #### [facility] [address] [place] [address] Dr. Taylor Marley (RBC) [Mass/Vol]36.3 g/dLCritically high29.9-35.2The [facility] CenterComment on above:Performed By: #### POCGLUC #### [facility] [address] [place] [address] Dr. Taylor Yusuf (RBC) [Entitic vol]87.3 sNPikofw66.0-94.0The [facility] CenterComment on above:Performed By: #### POCGLUC #### [facility] [address] [place] [address] Dr. Taylor Guillen #0.4 103/ulNormal0.3-0.8The [facility] CenterComment on above:Performed By: #### POCGLUC #### [facility] [address] [place] [address] Dr. Taylor Alvarezocytes/100 WBC (Bld)8.2 %Normal1.7-12.0The [facility] Comment on above:Performed By: #### POCGLUC #### [facility] [address] [place] [address] Dr. Taylor Hansen #2.8 103/ulNormal1.4-6.5The [facility] CenterComment on above:Performed By: #### POCGLUC #### [facility] [address] [place] [address] Dr. Taylor Friedutrophils/100 WBC (Bld)54.5 %Sajvkd41.0-75.0The [facility] CenterComment on above:Performed By: #### POCGLUC #### [facility] [address] [place] [address] Dr. Taylor Tomaslet mean volume (Bld) [Entitic vol]10.3 fLNormal9.5-13.5The [facility] CenterComment on above:Performed By: #### POCGLUC #### [facility] [address] [address] [address] Taylor GarciaPLT113 103/ulCritically xvt549-773Kfu [facility] CenterComhenry [facility] on above:Performed By: #### POCGLUC #### [facility] [address] [place] [address] Dr. Taylor GarciaRBC4.42 106/ulCritically low4.70-6.10The [facility] CenterComment on above:Performed By: #### POCGLUC #### [facility] [address] [place] [address] Dr. Taylor GarciaWBC5.2 103/ulNormal4.0-11.0The [facility] CenterComhenry ford [facility] on above: Performed By: #### POCGLUC #### [facility] [address] [place] [address] Dr. Taylor GarciaDIRECT LDLon 49-77-6625Yxtxrgoxlff in LDL [Mass/Vol]108 mg/dL NormalThe [facility] CenterComhenry ford [facility] on above:Performed By: #### POCGLUC #### [facility] [address] [place] [address] Dr. Taylor GarciaDLDL NORMALSEE [facility] CenterComment on above: Result Comment: <100 mg/dl OPTIMAL 100 - 129 mg/dl NEAR OR ABOVE OPTIMAL 130 - 159 mg/dl BORDERLINE HIGH 160 - 189 mg/dl HIGH >190 mg/dl VERY HIGHPerformed By: #### POCGLUC #### [facility] [address] [place] [address] Dr. Taylor GarciaLIPASEon 36-80-0781Qwhbvv [Catalytic activity/Vol]91.0 U/LNormal 73.0-393.0The [facility] CenterComment on above:Performed By: #### POCGLUC #### [facility] [address] [place] [address] Dr. Taylor BorregoID PROFILEon 91-89-8511LFYZ-HDL RATIO NORMSEE [facility] CenterComhenry [facility] on above:Result Comment: 3.3 - 4.4 LOW RISK 4.4 - 7.1 AVERAGE RISK 7.1 - 11.0 MODERATE RISK >11.0 HIGH RISKPerformed By: #### POCGLUC #### [facility] [address] [address] [address] Taylor GarciaCholesterol [Mass/Vol]299 mg/dLCritically high<=200The [facility] CenterComhenry [facility] on above:Performed By: #### POCGLUC #### [facility] [address] [address] [address] Taylor GarciaCholesterol in HDL [Mass/Vol]22 mg/dLCritically fmy21-74Cbz [facility] CenterComment on above:Performed By: #### POCGLUC #### [facility] [address] [address] [address] Taylor Yeeesterol.total/Cholesterol in HDL [Mass ratio]13.6 {ratio} NormalThe [facility] Medical CenterComment on above:Performed By: #### POCGLUC #### [facility] [address] [address] [address] Taylor Puentes NORMAL> or = 60 mg/dl - LOW CARDIOVASCULAR RISK <40 mg/dl - HIGH CARDIOVASCULAR RISKNoOhioHealth Riverside Methodist HospitalComment on above:Performed By: #### POCGLUC #### [facility] [address] [address] [address] Taylor GarciaTriglyceride [Mass/Vol]798 mg/dLCritically high<=150The [facility] CenterComment on above:Performed By: #### POCGLUC #### [facility] [address] [address] [address] Taylor GarciaVLDL AICO703.6 mg/dLNoOhioHealth Riverside Methodist HospitalComment on above: Performed By: #### POCGLUC #### [facility] [address] [address] [address] Taylor Villela [facility] GLUCOSEon 56-73-1329Xgyzyqk [Mass/Vol]252 mg/dL Critically vnet38-270Iby [facility] CenterComment on above:Performed By: #### POCGLUC #### [facility] [address] [address] [address] Taylor GarciaGlucose [Mass/Vol]181 mg/dLCritically uqqp84-054Kzy [facility] CenterComment on above:Performed By: #### POCGLUC #### [facility] [address] [address] [address] Taylor Hicks 14(COMP METB)on 28-25-9174Aftsnhp [Mass/Vol]3.0 g/dL Critically low3.4-5.0The [facility] CenterComment on above:Performed By: #### POCGLUC #### [facility] [address] [address] [address] Taylor GarciaAlbumin/Globulin [Mass ratio]0.9 {ratio}NormalThe [facility] CenterComment on above:Performed By: #### POCGLUC #### [facility] [address] [place] [address] Dr. Taylor OmerP [Catalytic activity/Vol]41 U/LCritically crs64-525Nvm [facility] CenterComment on above:Performed By: #### POCGLUC #### [facility] [address] [place] [address] Dr. Taylor Meléndez [Catalytic activity/Vol]37 U/PBorkha34-30Ioz [facility] CenterComment on above:Performed By: #### POCGLUC #### [facility] [address] [place] [address] Dr. Taylor Araujo gap [Moles/Vol]16.0 mmol/LNormalThe [facility] Comment on above:Performed By: #### POCGLUC #### [facility] [address] [address] [address] Taylor GarciaAST [Catalytic activity/Vol]20 U/VJkyicp94-29Noi [facility] CenterComment on above:Performed By: #### POCGLUC #### [facility] [address] [address] [address] Taylor GarciaBilirubin [Mass/Vol]0.5 mg/dLNormal0.2-1.0The [facility] Comment on above:Performed By: #### POCGLUC #### [facility] [address] [place] [address] Dr. Taylor GarciaCalcium [Mass/Vol]8.9 mg/dLNormal8.5-10.1The [facility] Comment on above:Performed By: #### POCGLUC #### [facility] [address] [place] [address] Dr. Taylor GarciaChloride [Moles/Vol]103 mmol/PHewqzw74-239Doa [facility] Comment on above:Performed By: #### POCGLUC #### [facility] [address] [place] [address] Dr. Taylor GarciaCO2 [Moles/Vol]22.0 mmol/RQvbmky43.0-32.0The [facility] Comment on above:Performed By: #### POCGLUC #### [facility] [address] [place] [address] Dr. Taylor GarciaCreatinine [Mass/Vol]0.65 mg/dLCritically low0.70-1.30The [facility] CenterComment on above:Performed By: #### POCGLUC #### [facility] [address] [place] [address] Dr. Taylor PulliamGFR-AF FILIPINO>60Normal>=60The [facility] CenterComment on above:Performed By: #### POCGLUC #### [facility] [address] [place] [address] Dr. Taylor PulliamGFR-NON AF FILIPINO>60Normal>=60The [facility] CenterComment on above:Performed By: #### POCGLUC #### [facility] [address] [place] [address] Dr. Taylor GarciaGlobulin (S) [Mass/Vol]3.3 g/dLNormalThe [facility] CenterComment on above:Performed By: #### POCGLUC #### [facility] [address] [place] [address] Dr. Taylor GarciaGlucose [Mass/Vol]198 mg/dLCritically avzv18-054Gvb [facility] CenterComment on above:Performed By: #### POCGLUC #### [facility] [address] [place] [address] Dr. Taylor GarciaPotassium [Moles/Vol]4.0 mmol/LNormal3.5-5.1The [facility] Comment on above:Performed By: #### POCGLUC #### [facility] [address] [address] [address] Taylor GarciaProtein [Mass/Vol]6.3 g/dLCritically low6.4-8.2[facility] County HospitalComment on above:Performed By: #### POCGLUC #### [facility] [address] [address] [address] Taylor GarciaSodium [Moles/Vol]137 mmol/NJxcbxt461-352Ysw [facility] Comment on above:Performed By: #### POCGLUC #### [facility] [address] [address] [address] Taylor GarciaUrea nitrogen [Mass/Vol]9.0 mg/dLNormal7.0-18.0The [facility] CenterComment on above:Performed By: #### POCGLUC #### [facility] [address] [address] [address] Taylor Courtney nitrogen/Creatinine [Mass ratio]13.8 mg/mgNormalThe [facility] CenterComment on above:Performed By: #### POCGLUC #### [facility] [address] [place] [address] Dr. Taylor GarciaAlanine aminotransferase [Enzymatic activity/volume] in Serum or PlasmaOrdered By: Shaikh Swapnil on 23-99-9927IPC [Catalytic activity/Vol]30 U/L 7-52Select [facility] Rehabilitation HospitalAlbumin [Mass/volume] in Serum or Plasma by Bromocresol green (BCG) dye binding methoOrdered By: Shaikh Swapnil on 22-20-1980Ojayokb BCG dye [Mass/Vol]3.5 g/dL3.5-5.7FChillicothe VA Medical CenterAlkaline phosphatase [Enzymatic activity/volume] in Serum or PlasmaOrdered By: Shaikh Swapnil on 63-47-4884PLJ [Catalytic activity/Vol]38 U/S78-349BabhqzeugSelect Medical Trihealth Rehabilitation HospitalAspartate aminotransferase [Enzymatic activity/volume] in Serum or PlasmaOrdered By: Shaikh Swapnil on 42-86-3896YPN [Catalytic activity/Vol]17 U/G20-98HphvkmsjtSelect Medical Trihealth Rehabilitation HospitalBilirubin.total [Mass/volume] in Serum or PlasmaOrdered By: Shaikh Swapnil on 93-26-6347Ipxqmrbvz [Mass/Vol]0.6 mg/dL0.3-1.0[facility] Rehabilitation HospitalCBC AUTO DIFFon 64-27-4416GEAO #0.0 103/ulNormal0.0-0.1The [facility] CenterComment on above: Performed By: #### POCGLUC #### [facility] [address] [address] [address] Taylor GarciaBasophils/100 WBC (Bld)0.4 %Normal0.2-2.0[facility] Comment on above:Performed By: #### POCGLUC #### [facility] [address] [address] [address] Taylor Mills #0.1 103/ulNormal0.0-0.7The [facility] CenterComment on above: Performed By: #### POCGLUC #### [facility] [address] [address] [address] Taylor Pulliamosinophils/100 WBC (Bld)1.1 %Normal0.9-7.0[facility] Comment on above:Performed By: #### POCGLUC #### [facility] [address] [address] [address] Taylor Pulliamrythrocyte distribution width (RBC) [Ratio]12.7 %Xnfguw78.0-15.0 [facility] HospitalComment on above:Performed By: #### POCGLUC #### [facility] [address] [address] [address] Taylor GarciaHematocrit (Bld) [Volume fraction]37.3 %Critically low42.0-54.0 [facility] HospitalComment on above:Performed By: #### POCGLUC #### [facility] [address] [address] [address] Taylor GarciaHemoglobin (Bld) [Mass/Vol]13.8 g/dLCritically low14.0-18.0The [facility] CenterComment on above:Performed By: #### POCGLUC #### [facility] [address] [place] [address] Dr. Taylor Elder #0.05 10e3/ulCritically high0.00-0.03The [facility] Comment on above:Performed By: #### POCGLUC #### [facility] [address] [place] [address] Dr. Taylor Elder %0.7 %Critically high0.0-0.5The [facility] CenterComment on above:Performed By: #### POCGLUC #### [facility] [address] [place] [address] Dr. Taylor Del Toro #1.6 103/ulNormal1.2-3.8The [facility] CenterComment on above:Performed By: #### POCGLUC #### [facility] [address] [place] [address] Dr. Taylor Solomonhocytes/100 WBC (Bld)22.8 %Jfxnaq02.5-60.0The [facility] CenterComment on above:Performed By: #### POCGLUC #### [facility] [address] [place] [address] Dr. Taylor Diaz DIFF REQNONormalThe [facility] CenterComment on above: Performed By: #### POCGLUC #### [facility] [address] [place] [address] Dr. Taylor Hurst (RBC) [Entitic mass]32.0 btIxsdrp41.9-34.0The [facility] CenterComment on above:Performed By: #### POCGLUC #### [facility] [address] [place] [address] Dr. Taylor Marley (RBC) [Mass/Vol]37.0 g/dLCritically high29.9-35.2The [facility] CenterComment on above:Performed By: #### POCGLUC #### [facility] [address] [place] [address] Dr. Yilan ChangMCV (RBC) [Entitic vol]86.5 kMPsjnvy52.0-94.0The [facility] CenterComment on above:Performed By: #### POCGLUC #### [facility] [address] [place] [address] Dr. Taylor Guillen #0.6 103/ulNormal0.3-0.8The [facility] CenterComment on above:Performed By: #### POCGLUC #### [facility] [address] [place] [address] Dr. Taylor Alvarezocytes/100 WBC (Bld)8.2 %Normal1.7-12.0The [facility] Comment on above:Performed By: #### POCGLUC #### [facility] [address] [place] [address] Dr. Taylor Hansen #4.8 103/ulNormal1.4-6.5The [facility] CenterComment on above:Performed By: #### POCGLUC #### [facility] [address] [place] [address] Dr. Taylor Friedutrophils/100 WBC (Bld)66.8 %Ixmvzn89.0-75.0The [facility] CenterComment on above:Performed By: #### POCGLUC #### [facility] [address] [place] [address] Dr. Taylor Venegas mean volume (Bld) [Entitic vol]10.0 fLNormal9.5-13.5The [facility] CenterComment on above:Performed By: #### POCGLUC #### [facility] [address] [place] [address] Dr. Taylor GarciaPLT109 103/ulCritically xal477-059Gmp [facility] CenterComment on above:Performed By: #### POCGLUC #### [facility] [address] [place] [address] Dr. Taylor GarciaRBC4.31 106/ulCritically low4.70-6.10The [facility] CenterComment on above:Performed By: #### POCGLUC #### [facility] [address] [place] [address] Dr. Taylor GarciaWBC7.2 103/ulNormal4.0-11.0[facility] HospitalComment on above: Performed By: #### POCGLUC #### [facility] [address] [address] [address] Taylor GarciaCalcium [Mass/volume] in Serum or PlasmaOrdered By: Shaikh Swapnil on 07-71-4090Uzqezfx [Mass/Vol]8.7 mg/dL8.6-10.3FChillicothe VA Medical CenterCarbon dioxide, total [Moles/volume] in Serum or PlasmaOrdered By: Shaikh Swapnil on 52-29-0691ZH7 [Moles/Vol]19.8 mmol/L21.0-31.0[facility] Rehabilitation HospitalChloride [Moles/volume] in Serum or PlasmaOrdered By: Shaikh Swapnil on 91-20-1369Rzkdjwdm [Moles/Vol]105 mmol/Q89-334HiipjbkgoSelect Medical Trihealth Rehabilitation HospitalCreatinine [Mass/volume] in Serum or PlasmaOrdered By: Shaikh Swapnil on 89-37-7793Jlnxlygirc [Mass/Vol]0.71 mg/dL0.70-1.30[facility] HospitalDIRECT LDLon 08-63-1109Woficxyqxde in LDL [Mass/Vol]73 mg/dLNoWayne HospitalComment on above:Performed By: #### POCGLUC #### [facility] [address] [address] [address] Taylor GarciaDLDL NORMALSEE [facility] Medical CenterComment on above: Result Comment: <100 mg/dl OPTIMAL 100 - 129 mg/dl NEAR OR ABOVE OPTIMAL 130 - 159 mg/dl BORDERLINE HIGH 160 - 189 mg/dl HIGH >190 mg/dl VERY HIGHPerformed By: #### POCGLUC #### [facility] [address] [place] [address] Dr. Taylor GarciaGLYCOHEMOGLOBIN A1Con 21-17-2169LNC RECOMMENDATIONSEE BELOWEast Ohio Regional HospitalComhenry ford [facility] on above:Result Comment: ADA RECOMMENDED LIMIT 4.0 - 6.0 ADA THERAPEUTIC TARGET < 7.0 ACTION SUGGESTED > 7.0Performed By: #### POCGLUC #### [facility] [address] [place] [address] Dr. Taylor GarciaGlucose [Mass/Vol]280 mg/dLSamaritan North Health Center on above:Performed By: #### POCGLUC #### [facility] [address] [place] [address] Dr. Talyor GarciaHbA1c (Bld) [Mass fraction]11.4 %Critically high4.5-6.2[facility] on above:Performed By: #### POCGLUC #### [facility] [address] [place] [address] Dr. Taylor GarciaGlobulin Calc (S) [Mass/Vol]Ordered By: Shaikh Swapnil on 11-71-5009Eedseuru (S) [Mass/Vol]2.3 g/dLSelect Medical Trihealth Rehabilitation Hospital Glucose [Mass/volume] in Serum or PlasmaOrdered By: Shaikh Swapnil on 01-24-2023 Glucose [Mass/Vol]165 mg/fV84-007IqpmkvccaSelect Medical Trihealth Rehabilitation HospitalComment on above:ADA recommended reference rangeRandom Glucose Reference Range is dependent on time and content of last meal. Glucose of more than 200 mg/dL in a nonstressed, ambulatory subject supports the diagnosisof Diabetes Mellitus.LAB TESTINGon 77-64-7061EKMX HEADERSEE SCANNED REPORT IN [facility] on above:Performed By: #### POCGLUC #### [facility] [address] [place] [address] Dr. Taylor Ordoñez FROM REF LAB01/24/2023[facility] on above:Performed By: #### POCGLUC #### [facility] [address] [place] [address] Dr. Taylor Jarquin TO REF LAB01/24/2023[facility] on above:Performed By: #### POCGLUC #### [facility] [address] [place] [address] Dr. Taylor Shook 13-60-3537Amffgs [Catalytic activity/Vol]97.0 U/LNormal 73.0-393.0The [facility] CenterComment on above:Performed By: #### POCGLUC #### [facility] [address] [place] [address] Dr. Taylor BorregoID PROFILEon 13-07-4420NHRF-HDL RATIO NORMSFairfield Medical CenterComment on above:Result Comment: 3.3 - 4.4 LOW RISK 4.4 - 7.1 AVERAGE RISK 7.1 - 11.0 MODERATE RISK >11.0 HIGH RISKPerformed By: #### POCGLUC #### [facility] [address] [place] [address] Dr. Taylor GarciaCholesterol [Mass/Vol]296 mg/dLCritically high<=200The [facility] CenterComment on above:Performed By: #### POCGLUC #### [facility] [address] [place] [address] Dr. Taylor GarciaCholesterol in HDL [Mass/Vol]26 mg/dLCritically smn81-26Ygt [facility] CenterComment on above:Performed By: #### POCGLUC #### [facility] [address] [place] [address] Dr. Taylor Yeeesterlorene.total/Cholesterol in HDL [Mass ratio]11.4 {ratio} NormalThe [facility] CenterComhenry ford [facility] hospital on above:Performed By: #### POCGLUC #### [facility] [address] [place] [address] Dr. Taylor GarciaHDShelly NORMAL> or = 60 mg/dl - LOW CARDIOVASCULAR RISK <40 mg/dl - HIGH CARDIOVASCULAR RISKMemorial HospitalComment on above:Performed By: #### POCGLUC #### [facility] [address] [place] [address] Dr. Taylor GarciaLDL CALC NORMALSEE [facility] CenterComment on above:Result Comment: <100 mg/dl OPTIMAL 100 - 129 mg/dl NEAR OR ABOVE OPTIMAL 130 - 159 mg/dl BORDERLINE HIGH 160 - 189 mg/dl HIGH >190 mg/dl VERY HIGH Performed By: #### POCGLUC #### [facility] [address] [address] [address] Taylor GarciaTriglyceride [Mass/Vol]935 mg/dLCritically high<=150[facility] on above:Performed By: #### POCGLUC #### [facility] [address] [address] [address] Taylor GarciaVLDL SZME053.0 mg/dLNormalThSouthern Ohio Medical CenterComhenry ford [facility] hospital on above: Performed By: #### POCGLUC #### [facility] [address] [address] [address] Taylor GarciaLipase [Enzymatic activity/volume] in Serum or PlasmaOrdered By: Shaikh Swapnil on 38-75-5553Uloonp [Catalytic activity/Vol]34.0 U/L11.0-82.0 [facility] HospitalNo Panel InformationOrdered By: Shaikh Swapnil on 17-25-9165Ugzkibjnr GFR (CKD-EPI)> 60.0 mL/MinSelect Medical Trihealth Rehabilitation HospitalPharmacy Creatinine Clearance (ChemN/[facility] POINT OF CARE GLUCOSEon 59-81-0662Bbzmmfi [Mass/Vol]171 mg/dLCritically high 74-106[facility] on above:Performed By: #### POCGLUC #### [facility] [address] [address] [address] Taylor GarciaGlucose [Mass/Vol]168 mg/dLCritically ebmz43-193Yta [facility] CenterComhenry ford [facility] on above:Performed By: #### POCGLUC #### [facility] [address] [address] [address] Taylor GarciaGlucose [Mass/Vol]249 mg/dLCritically fafo54-167ExdClermont County HospitalComhenry ford [facility] hospital on above:Performed By: #### POCGLUC #### [facility] [address] [address] [address] Taylor GarciaGlucose [Mass/Vol]126 mg/dLCritically ptxr33-240AwkClermont County HospitalComment on above:Performed By: #### POCGLUC #### [facility] [address] [address] [address] Taylor GarciaGlucose [Mass/Vol]166 mg/dLCritically zmbb52-745PdxClermont County HospitalComment on above:Performed By: #### POCGLUC #### [facility] [address] [address] [address] Taylor GarciaGlucose [Mass/Vol]157 mg/dLCritically avai66-177QiuClermont County HospitalComment on above:Performed By: #### POCGLUC #### [facility] [address] [address] [address] Taylor GarciaGlucose [Mass/Vol]156 mg/dLCritically zwbv37-649IhuClermont County HospitalComment on above:Performed By: #### POCGLUC #### [facility] [address] [address] [address] Taylor GarciaGlucose [Mass/Vol]97 mg/gWOwhvmh88-903FnpClermont County Hospital Comment on above:Performed By: #### POCGLUC #### [facility] [address] [address] [address] Taylor GarciaGlucose [Mass/Vol]84 mg/gVQvaevv02-395HuuClermont County Hospital Comment on above:Performed By: #### POCGLUC #### [facility] [address] [address] [address] Taylor GarciaGlucose [Mass/Vol]74 mg/kMVfostc52-391IzaClermont County Hospital Comment on above:Performed By: #### POCGLUC #### [facility] [address] [address] [address] Taylor GarciaGlucose [Mass/Vol]79 mg/rJKxmifg90-037TgfClermont County Hospital Comment on above:Performed By: #### POCGLUC #### [facility] [address] [address] [address] Taylor GarciaGlucose [Mass/Vol]117 mg/dLCritically ujex29-601JssClermont County HospitalComment on above:Performed By: #### POCGLUC #### [facility] [address] [address] [address] Yilan ChangGlucose [Mass/Vol]134 mg/dLCritically iort65-705Taz [facility] CenterComment on above:Performed By: #### POCGLUC #### [facility] [address] [address] [address] Taylor GarciaGlucose [Mass/Vol]163 mg/dLCritically sflo12-546Uxu [facility] CenterComment on above:Performed By: #### POCGLUC #### [facility] [address] [place] [address] Dr. Taylor GarciaPROF CHEM 8 (BAS METB)on 97-43-2388Earpd gap [Moles/Vol]14.4 mmol/LNormalThe [facility] CenterComment on above:Result Comment: [facility] hospitalPerformed By: #### POCGLUC #### [facility] [address] [place] [address] Dr. Taylor GarciaCalcium [Mass/Vol]8.9 mg/dLNormal8.5-10.1The [facility] Comment on above:Result Comment: [facility] hospitalPerformed By: #### POCGLUC #### [facility] [address] [place] [address] Dr. Taylor GarciaChloride [Moles/Vol]105 mmol/SMcsxqp96-049Ycd [facility] Comment on above:Result Comment: [facility] hospitalPerformed By: #### POCGLUC #### [facility] [address] [place] [address] Dr. Taylor GarciaCO2 [Moles/Vol]20.2 mmol/LCritically low21.0-32.0The [facility] CenterComhenry ford [facility] on above:Result Comment: [facility] hospitalPerformed By: #### POCGLUC #### [facility] [address] [place] [address] Dr. Taylor GarciaCreatinine [Mass/Vol]0.69 mg/dLCritically low0.70-1.30The [facility] CenterComment on above:Result Comment: [facility] hospitalPerformed By: #### POCGLUC #### [facility] [address] [address] [address] Vazquez ChangEGFR-AF FILIPINO>60Normal>=60The [facility] CenterComment on above:Performed By: #### POCGLUC #### [facility] [address] [address] [address] Vazquez ChangEGFR-NON AF FILIPINO>60Normal>=60The [facility] CenterComment on above:Performed By: #### POCGLUC #### [facility] [address] [address] [address] Taylor GarciaGlucose [Mass/Vol]103 mg/jGVhcrtd49-986Dar [facility] Comment on above:Result Comment: [facility] hospitalPerformed By: #### POCGLUC #### [facility] [address] [address] [address] Taylor GarciaPotassium [Moles/Vol]3.6 mmol/LNormal3.5-5.1The [facility] Comment on above:Result Comment: [facility] hospitalPerformed By: #### POCGLUC #### [facility] [address] [address] [address] Taylor GarciaSodium [Moles/Vol]136 mmol/IMflzvp921-317Wfg [facility] Comment on above:Result Comment: [facility] hospitalPerformed By: #### POCGLUC #### [facility] [address] [address] [address] Taylor GarciaUrea nitrogen [Mass/Vol]6.0 mg/dLCritically low7.0-18.0[facility] HospitalComment on above:Result Comment: [facility] hospitalPerformed By: #### POCGLUC #### [facility] [address] [address] [address] Taylor GarciaUrea nitrogen/Creatinine [Mass ratio]8.7 mg/mgNormalThe [facility] CenterComment on above:Performed By: #### POCGLUC #### [facility] [address] [address] [address] Yilan ChangPotassium [Moles/volume] in Serum or PlasmaOrdered By: Shaikh Swapnil on 67-39-0552Hjpssceuq [Moles/Vol]3.6 mmol/L3.5-5.1FChillicothe VA Medical CenterProtein [Mass/volume] in Serum or PlasmaOrdered By: Shaikh Swapnil on 11-88-6494Yikymnz [Mass/Vol]5.8 g/dL6.4-8.9[facility] Serum or plasma albumin/globulin mass ratioOrdered By: Shaikh Swapnil on 92-64-0588Lzlewhn/Globulin [Mass ratio]1.5 {ratio}[facility] Hospitalerum or plasma anion gap determinationOrdered By: Shaikh Swapnil on 79-49-6506Wxzqs gap [Moles/Vol]13.8 mmol/L6.0-15.0[facility] Hospitalodium [Moles/volume] in Serum or PlasmaOrdered By: Shaikh Swapnil on 60-22-0598Dutgba [Moles/Vol]135 mmol/U165-466LpvdcsccoSelect Medical Trihealth Rehabilitation Hospital Urea nitrogen [Mass/volume] in Serum or PlasmaOrdered By: Shaikh Swapnil on 38-96-0421Tpjx nitrogen [Mass/Vol]6 mg/dL7-25[facility] Alanine aminotransferase [Enzymatic activity/volume] in Serum or PlasmaOrdered By: Shaikh Swapnil on 64-53-3286FEL [Catalytic activity/Vol]45 U/L7-52[facility] HospitalAlbumin [Mass/volume] in Serum or Plasma by Bromocresol green (BCG) dye binding methoOrdered By: Shaikh Swapnil on 63-89-3364Kyljbcf BCG dye [Mass/Vol]4.0 g/dL3.5-5.7FChillicothe VA Medical CenterComment on above: Delta: 5.0 on 01/22/23-8Alkaline phosphatase [Enzymatic activity/volume] in Serum or PlasmaOrdered By: Shaikh Swapnil on 53-43-9072QBU [Catalytic activity/Vol]40 U/I82-913LdoivkrzgSelect Medical Trihealth Rehabilitation HospitalAspartate aminotransferase [Enzymatic activity/volume] in Serum or PlasmaOrdered By: Shaikh Swapnil on 39-90-3370NIM [Catalytic activity/Vol]See -27PoaxsjzgySelect Medical Trihealth Rehabilitation HospitalComment on above:Specimen hemolyzed, redraw requested Bilirubin.total [Mass/volume] in Serum or PlasmaOrdered By: Shaikh Swapnil on 86-39-2846Mzcvhxxph [Mass/Vol]1.1 mg/dL0.3-1.0[facility] CBC AUTO DIFFon 54-14-0375VKJE #0.0 103/ulNormal0.0-0.1[facility] Comment on above:Performed By: #### CBC #### [facility] [address] [place] [address] Dr. Taylor GarciaBasophils/100 WBC (Bld)0.3 %Normal0.2-2.0[facility] Comment on above:Performed By: #### CBC #### [facility] [address] [address] [address] Taylor Mills #0.1 103/ulNormal0.0-0.7The [facility] CenterComment on above: Performed By: #### CBC #### [facility] [address] [place] [address] Dr. Taylor Pulliamosinophils/100 WBC (Bld)0.6 %Critically low0.9-7.0[facility] HospitalComment on above:Performed By: #### CBC #### [facility] [address] [place] [address] Dr. Taylor Pulliamrythrocyte distribution width (RBC) [Ratio]12.8 %Ctbbzz35.0-15.0 [facility] HospitalComment on above:Performed By: #### CBC #### [facility] [address] [place] [address] Dr. Taylor GarciaHematocrit (Bld) [Volume fraction]38.1 %Critically low42.0-54.0 [facility] HospitalComment on above:Performed By: #### CBC #### [facility] [address] [place] [address] Dr. Taylor GarciaHemoglobin (Bld) [Mass/Vol]13.3 g/dLCritically low14.0-18.0The [facility] CenterComment on above:Performed By: #### CBC #### [facility] [address] [address] [address] Taylor Elder #0.07 10e3/ulCritically high0.00-0.03The [facility] Comment on above:Performed By: #### CBC #### [facility] [address] [address] [address] Taylor Elder %0.7 %Critically high0.0-0.5The [facility] CenterComment on above:Performed By: #### CBC #### [facility] [address] [place] [address] Dr. Taylor Del Toro #1.8 103/ulNormal1.2-3.8The [facility] CenterComment on above:Performed By: #### CBC #### [facility] [address] [place] [address] Dr. Taylor Solomonhocytes/100 WBC (Bld)16.6 %Critically low20.5-60.0The [facility] CenterComment on above:Performed By: #### CBC #### [facility] [address] [place] [address] Dr. Taylor DamonUAL DIFF REQNONormalThe [facility] CenterComment on above: Performed By: #### CBC #### [facility] [address] [place] [address] Dr. Taylor Marley (RBC) [Entitic mass]30.2 tvZokipb86.9-34.0The [facility] CenterComment on above:Performed By: #### CBC #### [facility] [address] [place] [address] Dr. Taylor Marley (RBC) [Mass/Vol]34.9 g/dVPwetat72.9-35.2The [facility] CenterComment on above:Performed By: #### CBC #### [facility] [address] [address] [address] Tyalor MarleyV (RBC) [Entitic vol]86.6 tDYltsrn64.0-94.0The [facility] CenterComment on above:Performed By: #### CBC #### [facility] [address] [place] [address] Dr. Taylor Guillen #0.7 103/ulNormal0.3-0.8The [facility] CenterComment on above:Performed By: #### CBC #### [facility] [address] [place] [address] Dr. Taylor Alvarezocytes/100 WBC (Bld)6.9 %Normal1.7-12.0[facility] Comment on above:Performed By: #### CBC #### [facility] [address] [place] [address] Dr. Taylor Hansen #7.9 103/ulCritically high1.4-6.5The [facility] Comment on above:Performed By: #### CBC #### [facility] [address] [place] [address] Dr. Taylor Friedutrophils/100 WBC (Bld)74.9 %Bfwwry31.0-75.0The [facility] Medical CenterComment on above:Performed By: #### CBC #### [facility] [address] [place] [address] Dr. Taylor Tomaslet mean volume (Bld) [Entitic vol]10.8 fLNormal9.5-13.5The [facility] Medical CenterComment on above:Performed By: #### CBC #### [facility] [address] [place] [address] Dr. Taylor GarciaPLT123 103/ulCritically ffp310-178Omh [facility] CenterComment on above:Performed By: #### CBC #### [facility] [address] [place] [address] Dr. Taylor GarciaRBC4.40 106/ulCritically low4.70-6.10The [facility] CenterComment on above:Performed By: #### CBC #### [facility] [address] [address] [address] Taylor GarciaWBC10.6 103/ulNormal4.0-11.0The [facility] CenterComment on above:Performed By: #### CBC #### [facility] [address] [address] [address] Taylor GarciaCalcium [Mass/volume] in Serum or PlasmaOrdered By: Shaikh Swapnil on 26-47-2058Mbgvrso [Mass/Vol]8.9 mg/dL8.6-10.3FChillicothe VA Medical CenterCarbon dioxide, total [Moles/volume] in Serum or PlasmaOrdered By: Shaikh Swapnil on 30-68-1237OM2 [Moles/Vol]21.8 mmol/L21.0-31.0[facility] HospitalChloride [Moles/volume] in Serum or PlasmaOrdered By: Shaikh Swapnil on 91-05-0587Fyzpltbw [Moles/Vol]103 mmol/TKdmbuq75-379DpefqejroSelect Medical Trihealth Rehabilitation HospitalComment on above:Performed By: #### POCGLUC #### [facility] [address] [address] [address] Taylor GarciaCreatinine [Mass/volume] in Serum or PlasmaOrdered By: Shaikh Swapnil on 32-39-9912Vixkmccici [Mass/Vol]0.63 mg/dL0.70-1.30[facility] HospitalDIRECT LDLon 62-21-9266Cxoxajcioxk in LDL [Mass/Vol]67 mg/dLNormal [facility] HospitalComment on above:Performed By: #### POCGLUC #### [facility] [address] [address] [address] Taylor GarciaDLDL NORMALSEE BELOWNoOhioHealth Riverside Methodist HospitalComment on above: Result Comment: <100 mg/dl OPTIMAL 100 - 129 mg/dl NEAR OR ABOVE OPTIMAL 130 - 159 mg/dl BORDERLINE HIGH 160 - 189 mg/dl HIGH >190 mg/dl VERY HIGHPerformed By: #### POCGLUC #### [facility] [address] [address] [address] Taylor GarciaGLYCOHEMOGLOBIN A1Con 37-33-2059NQN RECOMMENDATIONSEE BELOWNormal [facility] HospitalComhenry ford [facility] on above:Result Comment: ADA RECOMMENDED LIMIT 4.0 - 6.0 ADA THERAPEUTIC TARGET < 7.0 ACTION SUGGESTED > 7.0Performed By: #### POCGLUC #### [facility] [address] [address] [address] Taylor GarciaGlucose [Mass/Vol]266 mg/dLNormalThe [facility] CenterComment on above:Performed By: #### POCGLUC #### [facility] [address] [address] [address] Taylor GarciaHbA1c (Bld) [Mass fraction]10.9 %Critically high4.5-6.2The [facility] CenterComhenry ford [facility] hospital on above:Performed By: #### POCGLUC #### [facility] [address] [address] [address] Taylor GarciaGlobulin Calc (S) [Mass/Vol]Ordered By: Shaikh Swapnil on 85-39-5416Xqumybqe (S) [Mass/Vol]2.5 g/dLSelect Medical Trihealth Rehabilitation Hospital Glucose [Mass/volume] in Serum or PlasmaOrdered By: Shaikh Swapnil on 01-23-2023 Glucose [Mass/Vol]193 mg/wM45-289WkuwdjxeiSelect Medical Trihealth Rehabilitation HospitalComment on above:Delta: 65 on 01/23/23-1635ADA recommended reference rangeRandom Glucose Reference Range is dependent on time and content of last meal. Glucose of more than 200 mg/dL in a nonstressed, ambulatory subject supports the diagnosis of Diabetes Mellitus.LIPID PROFILEon 61-23-9899OMHL-HDL RATIO NORMSEE BELOWNormal [facility] HospitalComhenry [facility] on above:Result Comment: 3.3 - 4.4 LOW RISK 4.4 - 7.1 AVERAGE RISK 7.1 - 11.0 MODERATE RISK >11.0 HIGH RISKPerformed By: #### POCGLUC #### [facility] [address] [address] [address] Taylor GarciaCholesterol [Mass/Vol]320 mg/dLCritically high<=200The [facility] HospitalComment on above:Performed By: #### POCGLUC #### [facility] [address] [address] [address] Taylor GarciaCholesterol in HDL [Mass/Vol]27 mg/dLCritically qje08-44Ztf [facility] CenterComment on above:Performed By: #### POCGLUC #### [facility] [address] [address] [address] Taylor Yeeesterol.total/Cholesterol in HDL [Mass ratio]11.9 {ratio} NormalClermont County HospitalComment on above:Performed By: #### POCGLUC #### [facility] [address] [address] [address] Taylor Puentes NORMAL> or = 60 mg/dl - LOW CARDIOVASCULAR RISK <40 mg/dl - HIGH CARDIOVASCULAR RISKNoOhioHealth Riverside Methodist HospitalComment on above:Performed By: #### POCGLUC #### [facility] [address] [address] [address] Taylor GarciaTriglyceride [Mass/Vol]1599 mg/dLCritically high<=150The [facility] CenterComment on above:Performed By: #### POCGLUC #### [facility] [address] [address] [address] Taylor GarciaVLDL QKSN880.8 mg/dLNoOhioHealth Riverside Methodist HospitalComment on above: Performed By: #### POCGLUC #### [facility] [address] [address] [address] Taylor Johnson Panel InformationOrdered By: Shaikh Swapnil on 01-23-2023 Estimated GFR (CKD-EPI)> 60.0 mL/MinSelect Medical Trihealth Rehabilitation HospitalPharmacy Creatinine Clearance (ChemN/[facility] HospitalPOINT OF CARE GLUCOSEon 40-59-6261Geiwqux [Mass/Vol]224 mg/dLCritically ahan46-919Njf [facility] CenterComment on above:Performed By: #### POCGLUC #### [facility] [address] [address] [address] Taylor GarciaGlucose [Mass/Vol]142 mg/dLCritically eald81-997Qfu [facility] HospitalComment on above:Performed By: #### POCGLUC #### [facility] [address] [address] [address] Taylor GarciaGlucose [Mass/Vol]102 mg/dMDmefek90-361ChpClermont County Hospital Comment on above:Performed By: #### POCGLUC #### [facility] [address] [address] [address] Taylor GarciaGlucose [Mass/Vol]100 mg/nQWoaziv85-476OhiClermont County Hospital Comment on above:Performed By: #### POCGLUC #### [facility] [address] [address] [address] Taylor GarciaGlucose [Mass/Vol]84 mg/lYZhhlym34-503GliClermont County Hospital Comment on above:Performed By: #### POCGLUC #### [facility] [address] [address] [address] Taylor GarciaGlucose [Mass/Vol]72 mg/dLCritically thq15-869RctClermont County HospitalComment on above:Performed By: #### POCGLUC #### [facility] [address] [address] [address] Taylor GarciaGlucose [Mass/Vol]69 mg/dLCritically jla99-782NtlClermont County HospitalComhenry ford wy[facility] hospital on above:Performed By: #### POCGLUC #### [facility] [address] [address] [address] Taylor GarciaGlucose [Mass/Vol]78 mg/sUUoucst66-783FayClermont County Hospital Comment on above:Performed By: #### POCGLUC #### [facility] [address] [address] [address] Taylor GarciaGlucose [Mass/Vol]114 mg/dLCritically ymfd56-328RwkClermont County HospitalComhenry ford wy[facility] hospital on above:Performed By: #### POCGLUC #### [facility] [address] [address] [address] Taylor GarciaGlucose [Mass/Vol]185 mg/dLCritically ipkz42-415IdjClermont County HospitalComment on above:Performed By: #### POCGLUC #### [facility] [address] [address] [address] Taylor GarciaGlucose [Mass/Vol]230 mg/dLCritically pkna24-275Wfx [facility] CenterComment on above:Performed By: #### POCGLUC #### [facility] [address] [address] [address] Taylor GarciaGlucose [Mass/Vol]253 mg/dLCritically hsxk10-440Pwf [facility] CenterComment on above:Performed By: #### POCGLUC #### [facility] [address] [address] [address] Taylor GarciaPROF CHEM 8 (BAS METB)on 61-06-7086Hhwrw gap [Moles/Vol]13.1 mmol/LNormalThe Clinton Memorial Hospitalment on above:Performed By: #### POCGLUC #### [facility] [address] [address] [address] Taylor GarciaCalcium [Mass/Vol]8.9 mg/dLNormal8.5-10.1The [facility] Comment on above:Performed By: #### POCGLUC #### [facility] [address] [address] [address] Taylor GarciaChloride [Moles/Vol]103 mmol/VKpjfme20-950Vgm [facility] Comment on above:Performed By: #### POCGLUC #### [facility] [address] [address] [address] Taylor GarciaCO2 [Moles/Vol]21.8 mmol/PQjkwjw55.0-32.0[facility] Comment on above:Performed By: #### POCGLUC #### [facility] [address] [address] [address] Taylor GarciaCreatinine [Mass/Vol]0.63 mg/dLCritically low0.70-1.30The [facility] Hospitalment on above:Performed By: #### POCGLUC #### [facility] [address] [address] [address] Vazquez ChangEGFR-AF FILIPINO>60Normal>=60The [facility]ana HospitalComment on above:Performed By: #### POCGLUC #### [facility] [address] [address] [address] Taylor PulliamGFR-NON AF FILIPINO>60Normal>=60The [facility] CenterComment on above:Performed By: #### POCGLUC #### [facility] [address] [address] [address] Taylor GarciaGlucose [Mass/Vol]193 mg/dLCritically mmmn35-011Xfb [facility] CenterComment on above:Performed By: #### POCGLUC #### [facility] [address] [address] [address] Taylor aGrciaPotassium [Moles/Vol]3.9 mmol/LNormal3.5-5.1The [facility] Comment on above:Performed By: #### POCGLUC #### [facility] [address] [address] [address] Taylor GarciaSodium [Moles/Vol]134 mmol/LCritically gpj630-565Bqp [facility] CenterComment on above:Performed By: #### POCGLUC #### [facility] [address] [address] [address] Taylor GarciaUrea nitrogen [Mass/Vol]6.0 mg/dLCritically low7.0-18.0The [facility] CenterComment on above:Performed By: #### POCGLUC #### [facility] [address] [address] [address] Taylor GarciaUrea nitrogen/Creatinine [Mass ratio]9.5 mg/mgNormalThe [facility] CenterComment on above:Performed By: #### POCGLUC #### [facility] [address] [address] [address] Taylor Lobatoon gap [Moles/Vol]12.8 mmol/LNormalThe [facility] Comment on above:Performed By: #### POCGLUC #### [facility] [address] [address] [address] Taylor GarciaCalcium [Mass/Vol]9.2 mg/dLNormal8.5-10.1[facility] Comment on above:Performed By: #### POCGLUC #### [facility] [address] [address] [address] Taylor GarciaCO2 [Moles/Vol]22.6 mmol/JDnaloi59.0-32.0The [facility] Comment on above:Performed By: #### POCGLUC #### [facility] [address] [place] [address] Dr. Taylor GarciaCreatinine [Mass/Vol]0.72 mg/dLNormal0.70-1.30The [facility] CenterComment on above:Performed By: #### POCGLUC #### [facility] [address] [place] [address] Dr. Taylor GarciaGlucose [Mass/Vol]65 mg/dLCritically iwa37-236Igi [facility] CenterComment on above:Performed By: #### POCGLUC #### [facility] [address] [place] [address] Dr. Taylor GarciaPotassium [Moles/Vol]3.4 mmol/LCritically low3.5-5.1The [facility] CenterComment on above:Performed By: #### POCGLUC #### [facility] [address] [place] [address] Dr. Taylor GarciaSodium [Moles/Vol]135 mmol/LCritically csy685-136Xng [facility] CenterComment on above:Performed By: #### POCGLUC #### [facility] [address] [place] [address] Dr. Taylor GarciaUrea nitrogen [Mass/Vol]7.0 mg/dLNormal7.0-18.0The [facility] CenterComment on above:Performed By: #### POCGLUC #### [facility] [address] [place] [address] Dr. Taylor Courtney nitrogen/Creatinine [Mass ratio]9.7 mg/mgNormalThe [facility] CenterComment on above:Performed By: #### POCGLUC #### [facility] [address] [place] [address] Dr. Taylor GarciaPotassium [Moles/volume] in Serum or PlasmaOrdered By: Shaikh Swapnil on 18-71-0405Jhkefzsfj [Moles/Vol]3.9 mmol/L3.5-5.1FChillicothe VA Medical CenterComment on above:Hemolysis is present at a level that could interfere with the result.Protein [Mass/volume] in Serum or PlasmaOrdered By: Shaikh Swapnil on 46-27-4180Axtntxl [Mass/Vol]6.5 g/dL6.4-8.9[facility] Hospitalerum or plasma albumin/globulin mass ratioOrdered By: Shaikh Swapnil on 19-26-0298Arvqxfp/Globulin [Mass ratio]1.6 {ratio}[facility] Hospitalerum or plasma anion gap determinationOrdered By: Shaikh Swapnil on 95-21-6127Liyyp gap [Moles/Vol]13.1 mmol/L6.0-15.0[facility] Hospitalodium [Moles/volume] in Serum or PlasmaOrdered By: Shaikh Swapnil on 69-15-7936Rnculw [Moles/Vol]134 mmol/C744-817OyblusdzgSelect Medical Trihealth Rehabilitation Hospital Urea nitrogen [Mass/volume] in Serum or PlasmaOrdered By: Shaikh Swapnil on 33-00-7920Kvji nitrogen [Mass/Vol]6 mg/dL7-25[facility] Alanine aminotransferase [Enzymatic activity/volume] in Serum or PlasmaOrdered By: NON STAFF on 59-31-8868WDI [Catalytic activity/Vol]75 U/L7-52[facility] HospitalAlbumin [Mass/volume] in Serum or Plasma by Bromocresol green (BCG) dye binding methoOrdered By: NON STAFF on 88-59-7210Jnxkjii BCG dye [Mass/Vol]5.0 g/dL3.5-5.7FChillicothe VA Medical CenterAlkaline phosphatase [Enzymatic activity/volume] in Serum or PlasmaOrdered By: NON STAFF on 76-68-2377ZTH [Catalytic activity/Vol]60 U/G51-505UfjxqgdfuSelect Medical Trihealth Rehabilitation HospitalAspartate aminotransferase [Enzymatic activity/volume] in Serum or Plasma Ordered By: NON STAFF on 35-38-0953BLJ [Catalytic activity/Vol]22 U/L13-39 [facility] HospitalBilirubin.total [Mass/volume] in Serum or PlasmaOrdered By: NON STAFF on 29-57-6944Jltwcawap [Mass/Vol]1.1 mg/dL0.3-1.0 [facility] HospitalCBC AUTO DIFFon 24-68-7458DANA #0.1 103/ul Normal0.0-0.1The [facility] CenterComment on above:Performed By: #### POCGLUC #### [facility] [address] [address] [address] Taylor GarciaBasophils/100 WBC (Bld)0.4 %Normal0.2-2.0The [facility] Comment on above:Performed By: #### POCGLUC #### [facility] [address] [address] [address] Vazquez ChangEO #0.0 103/ulNormal0.0-0.7The [facility] CenterComment on above: Performed By: #### POCGLUC #### [facility] [address] [address] [address] Taylor Pulliamosinophils/100 WBC (Bld)0.2 %Critically low0.9-7.0The [facility] CenterComment on above:Performed By: #### POCGLUC #### [facility] [address] [address] [address] Taylor Pulliamrythrocyte distribution width (RBC) [Ratio]12.4 %Xtpxdl78.0-15.0 The [facility] CenterComment on above:Performed By: #### POCGLUC #### [facility] [address] [address] [address] Taylor GarciaHematocrit (Bld) [Volume fraction]44.1 %Ayswik96.0-54.0The [facility] CenterComment on above:Performed By: #### POCGLUC #### [facility] [address] [address] [address] Taylor GarciaHemoglobin (Bld) [Mass/Vol]16.9 g/mTIiftwf95.0-18.0The [facility] HospitalComment on above:Performed By: #### POCGLUC #### [facility] [address] [address] [address] Taylor Elder #0.11 10e3/ulCritically high0.00-0.03The [facility] on above:Performed By: #### POCGLUC #### [facility] [address] [address] [address] Taylor Elder %0.8 %Critically high0.0-0.5The [facility] CenterComment on above:Performed By: #### POCGLUC #### [facility] [address] [address] [address] Taylor Del Toro #1.3 103/ulNormal1.2-3.8The [facility] CenterComment on above:Performed By: #### POCGLUC #### [facility] [address] [address] [address] Taylor Solomonhocytes/100 WBC (Bld)9.7 %Critically low20.5-60.0The [facility] CenterComment on above:Performed By: #### POCGLUC #### [facility] [address] [address] [address] Taylor DamonUAL DIFF REQNONormalThe [facility] CenterComment on above: Performed By: #### POCGLUC #### [facility] [address] [address] [address] Taylor Marley (RBC) [Entitic mass]32.1 ebXycyvv84.9-34.0The [facility] CenterComment on above:Performed By: #### POCGLUC #### [facility] [address] [address] [address] Taylor Marley (RBC) [Mass/Vol]38.3 g/dLCritically high29.9-35.2The [facility] CenterComment on above:Performed By: #### POCGLUC #### [facility] [address] [address] [address] Taylor Marley (RBC) [Entitic vol]83.8 pHSjnhxy72.0-94.0The [facility] CenterComment on above:Performed By: #### POCGLUC #### [facility] [address] [place] [address] Dr. Taylor Guillen #0.9 103/ulCritically high0.3-0.8The [facility] Comment on above:Performed By: #### POCGLUC #### [facility] [address] [place] [address] Dr. Taylor Alvarezocytes/100 WBC (Bld)6.7 %Normal1.7-12.0The [facility] Comment on above:Performed By: #### POCGLUC #### [facility] [address] [place] [address] Dr. Taylor Hansen #11.1 103/ulCritically high1.4-6.5The [facility] Comment on above:Performed By: #### POCGLUC #### [facility] [address] [place] [address] Dr. Taylor Friedutrophils/100 WBC (Bld)82.2 %Critically high43.0-75.0The [facility] CenterComment on above:Performed By: #### POCGLUC #### [facility] [address] [place] [address] Dr. Taylor Venegas mean volume (Bld) [Entitic vol]9.6 fLNormal9.5-13.5The [facility] CenterComment on above:Performed By: #### POCGLUC #### [facility] [address] [place] [address] Dr. Taylor GarciaPLT161 103/bcPffulp907-444Azd [facility] CenterComment on above: Performed By: #### POCGLUC #### [facility] [address] [place] [address] Dr. Taylor GarciaRBC5.54 106/ulNormal4.70-6.10The [facility] CenterComment on above:Performed By: #### POCGLUC #### [facility] [address] [place] [address] Dr. Taylor GarciaWBC13.5 103/ulCritically high4.0-11.0The [facility] CenterComment on above:Performed By: #### POCGLUC #### [facility] [address] [address] [address] Taylor GarciaCT ABD/PELVIS WO CONon 47-60-9208YB ABD/PELVIS WO CONEXAMINATION: CT ABD/PELVIS WO CON, [...] Electronically authenticated by: BRIGITTE BROWN Date: 2023-01-22 16:08Memorial HospitalCULTURE BLOODon 42-04-5547Xxqifkpsqwr examination of blood, cultureCulture Observations: NO GROWTH AT 5 DAYS. Isolate 1 BC_BA_SimeonLake County Memorial Hospital - WestComhenry ford wy[facility] hospital on above:Performed By: #### POCGLUC #### [facility] [address] [place], [place] [address] Dr. Taylor GarciaMicroscopic examination of blood, cultureCulture Observations: NO GROWTH AT 5 DAYS. Isolate 1 BC_BA_SimeonLake County Memorial Hospital - WestComment on above:Performed By: #### POCGLUC #### [facility] [address] [address] [address] Taylor GarciaCalcium [Mass/volume] in Serum or PlasmaOrdered By: NON STAFF on 31-82-9056Idxgjnb [Mass/Vol]9.9 mg/dL8.6-10.3FChillicothe VA Medical Center Carbon dioxide, total [Moles/volume] in Serum or PlasmaOrdered By: NON STAFF on 56-20-8977JS4 [Moles/Vol]21.5 mmol/L21.0-31.0[facility] Chloride [Moles/volume] in Serum or PlasmaOrdered By: NON STAFF on 01-22-2023 Chloride [Moles/Vol]95 mmol/S20-265VgqxcvxbcSelect Medical Trihealth Rehabilitation HospitalCovid-19 PCR (CVDTBH)on 67-64-8253NLXW-CoV-2 (COVID-19) RNA HEIDY+probe Ql (Unsp spec)Not detectedNormalNOT DETECTEDThe [facility] on above:Result Comment: When diagnostic testing [...] for this test is supported by the [place] of [employer] and Human Service's declaration that [...] longer be used).Performed By: #### POCGLUC #### [facility] [address] [place], [place] [address] Dr. Taylor GarciaCreatinine [Mass/volume] in Serum or PlasmaOrdered By: NON STAFF on 66-29-1365Zykzwckfpo [Mass/Vol]0.94 mg/dL0.70-1.30[facility] HospitalDIRECT LDLon 34-63-6177Qsmgwhtgwdz in LDL [Mass/Vol]137 mg/dLMemorial HospitalComment on above:Performed By: #### POCGLUC #### [facility] [address] [place] [address] Dr. Taylor Cruz NORMALSEE BELOWMemorial HospitalComment on above: Result Comment: <100 mg/dl OPTIMAL 100 - 129 mg/dl NEAR OR ABOVE OPTIMAL 130 - 159 mg/dl BORDERLINE HIGH 160 - 189 mg/dl HIGH >190 mg/dl VERY HIGHPerformed By: #### POCGLUC #### [facility] [address] [place] [address] Dr. Taylor Rodriguez URINE PROFILEon 86-72-5940Zctyocicv Ql (U)NegativeNormal NEGATIVEClermont County HospitalComment on above:Performed By: #### POCGLUC #### [facility] [address] [address] [address] Taylor GarciaClarity (U)CLEARNormalCLEARClermont County HospitalComment on above: Performed By: #### POCGLUC #### [facility] [address] [address] [address] Taylor Alvarenga (U)LT. YELLOWNormalYELLOWClermont County HospitalComment on above:Performed By: #### POCGLUC #### [facility] [address] [address] [address] Taylor Muñoz micrscopic examination will be performed if indicated. NormalClermont County HospitalComment on above:Performed By: #### POCGLUC #### [facility] [address] [address] [address] Taylor GarciaGlucose Ql (U)500 mg/dlAbnormalNEGATIVEClermont County Hospital Comment on above:Performed By: #### POCGLUC #### [facility] [address] [place] [address] Dr. Taylor GarciaHemoglobin Ql (U)TRACE-INTACTAbnormalNEGATIVEClermont County HospitalComment on above:Performed By: #### POCGLUC #### [facility] [address] [place] [address] Dr. Taylor Toth Ql (U)>=80AbnormalNEGATIVEThe [facility] CenterComment on above:Performed By: #### POCGLUC #### [facility] [address] [place] [address] Dr. Taylor GarciaLEUKOCYTESNegativeNormalNEGATIVEClermont County HospitalComment on above:Performed By: #### POCGLUC #### [facility] [address] [place] [address] Dr. Taylor Chang Ql (U)NegativeNormalNEGATIVEThe [facility] CenterComment on above:Performed By: #### POCGLUC #### [facility] [address] [place] [address] Dr. Taylor GarciapH (U)5.5 [pH]Normal5-9The [facility] CenterComment on above: Performed By: #### POCGLUC #### [facility] [address] [place] [address] Dr. Taylor GarciaProtein (U) [Mass/Vol]30 mg/dLAbnormalNEGATIVE/ TRACEThe [facility] CenterComment on above:Performed By: #### POCGLUC #### [facility] [address] [place] [address] Dr. Taylor GarciaSPEC GRAVITY1.695Wiigax3.005-<=1.025The [facility] CenterComhenry ford wyandotte hospital on above:Performed By: #### POCGLUC #### [facility] [address] [place] [address] Dr. Taylor Brown MICRO INDINDICATEDNormalThe Cincinnati Va Medical CenterComment on above: Performed By: #### POCGLUC #### [facility] [address] [place] [address] Dr. Taylor Hobbsgen Qn (U)0.2 {Sheridan'U}/dLNormal0.2 - 1.0The [facility] Va Medical CenterComment on above:Performed By: #### POCGLUC #### [facility] [address] [address] [address] Taylor GarciaGlobulin Calc (S) [Mass/Vol]Ordered By: NON STAFF on 01-22-2023 Globulin (S) [Mass/Vol]2.6 g/dLSelect Medical Trihealth Rehabilitation HospitalGlucose [Mass/volume] in Serum or PlasmaOrdered By: NON STAFF on 08-22-7927Pthbsdu [Mass/Vol]331 mg/dU94-288SpwdyjobpSelect Medical Trihealth Rehabilitation HospitalComment on above:ADA recommended reference rangeRandom Glucose Reference Range is dependent on time and content of last meal. Glucose of more than 200 mg/dL in a nonstressed, ambulatory subject supports the diagnosisof Diabetes Mellitus.LIPID PROFILEon 77-68-0426ASAU-HDL RATIO NORMSEE [facility] CenterComhenry ford [facility] on above:Result Comment: 3.3 - 4.4 LOW RISK 4.4 - 7.1 AVERAGE RISK 7.1 - 11.0 MODERATE RISK >11.0 HIGH RISKPerformed By: #### POCGLUC #### [facility] [address] [address] [address] Taylor Yeeesterol [Mass/Vol]380 mg/dLCritically high<=200[facility] HospitalComhenry ford [facility] on above:Performed By: #### POCGLUC #### [facility] [address] [address] [address] Taylor Yeeesterol in HDL [Mass/Vol]33 mg/dLCritically ele98-45PdqClermont County HospitalComhenry ford wyand[facility] hospital on above:Performed By: #### POCGLUC #### [facility] [address] [address] [address] Taylor Miller.total/Cholesterol in HDL [Mass ratio]11.5 {ratio} NormalClermont County HospitalComhenry ford wyandotte hospital on above:Performed By: #### POCGLUC #### [facility] [address] [address] [address] Taylor Puentes NORMAL> or = 60 mg/dl - LOW CARDIOVASCULAR RISK <40 mg/dl - HIGH CARDIOVASCULAR RISKMemorial HospitalComhenry ford wyandotte hospital on above:Performed By: #### POCGLUC #### [facility] [address] [address] [address] Taylor GarciaLDL CALC NORMALSEE BELOWMemorial HospitalComment on above:Result Comment: <100 mg/dl OPTIMAL 100 - 129 mg/dl NEAR OR ABOVE OPTIMAL 130 - 159 mg/dl BORDERLINE HIGH 160 - 189 mg/dl HIGH >190 mg/dl VERY HIGH Performed By: #### POCGLUC #### [facility] [address] [address] [address] Taylor GarciaTriglyceride [Mass/Vol]4548 mg/dLCritically high<=150Cl[facility] County HospitalComment on above:Performed By: #### POCGLUC #### [facility] [address] [address] [address] Taylor GarciaVLDL COAP078.6 mg/dLMemorial HospitalComment on above: Performed By: #### POCGLUC #### [facility] [address] [address] [address] Taylor GarciaLactate [Moles/volume] in Serum or PlasmaOrdered By: NON STAFF on 93-11-6338Iuljdjj [Moles/Vol]1.0 mmol/L0.5-2.2FChillicothe VA Medical Center Lipase [Enzymatic activity/volume] in Serum or PlasmaOrdered By: NON STAFF on 51-68-8704Mgwdpq [Catalytic activity/Vol]112.0 U/L11.0-82.0Select [facility] Rehabilitation HospitalNo Panel InformationOrdered By: NON STAFF on 28-34-2415Bshkriefd GFR (CKD-EPI)> 60.0 mL/MinSelect Medical Trihealth Rehabilitation HospitalPharmacy Creatinine Clearance (ChemN/Cherrington HospitalPOINT OF CARE GLUCOSEon 86-65-0613Mjrzkcc [Mass/Vol]523 mg/dLCritically oecz90-282YspClermont County Hospital Comment on above:Result Comment: Will Repeat TestPerformed By: #### POCGLUC #### [facility] [address] [address] [address] Taylor GarciaPotassium [Moles/volume] in Serum or PlasmaOrdered By: NON STAFF on 38-05-3556Mxtxutulc [Moles/Vol]4.1 mmol/L3.5-5.1FChillicothe VA Medical CenterProtein [Mass/volume] in Serum or PlasmaOrdered By: NON STAFF on 67-09-5000Qqdwydy [Mass/Vol]7.6 g/dL6.4-8.9[facility] Serum or plasma albumin/globulin mass ratioOrdered By: NON STAFF on 01-22-2023 Albumin/Globulin [Mass ratio]1.9 {ratio}[facility] Health Allen Hospitalerum or plasma anion gap determinationOrdered By: NON STAFF on 85-14-1778Kgiwa gap [Moles/Vol]20.6 mmol/L6.0-15.0Mer[facility] Allen Hospitalodium [Moles/volume] in Serum or PlasmaOrdered By: NON STAFF on 64-66-8369Sficpp [Moles/Vol]133 mmol/Z018-677ScrpkakvjSelect Medical Trihealth Rehabilitation HospitalURINE MICROSCOPIC ONLYon 31-10-7575HHCXLIEXLCNJ SEENNormalNONE SEENThe Cincinnati Va Medical CenterComment on above:Performed By: #### POCGLUC #### [facility] [address] [place] [address] Dr. Taylor Parmar identified Cx Nom (U)NOT INDICATEDMemorial HospitalComment on above:Performed By: #### POCGLUC #### [facility] [address] [address] [address] Taylor Patel SEENNormalNONE SEENClermont County HospitalComhenry ford wyand[facility] hospital on above:Performed By: #### POCGLUC #### [facility] [address] [address] [address] Taylor Owens LM Nom (Urine sed)NONE SEENNormalNONE SEENClermont County HospitalComment on above:Performed By: #### POCGLUC #### [facility] [address] [address] [address] Taylor Valentethelial cells LM Ql (Urine sed)NONE SEENNormalNONE SEEN /RARE The [facility] Va Medical CenterComment on above:Performed By: #### POCGLUC #### [facility] [address] [address] [address] Taylor Pozo SEENNormalNONE SEENThe Vandana HospitalComment on above:Performed By: #### POCGLUC #### [facility] [address] [address] [address] Taylor GarciaMmbcoUET9-9Prfgys9-1Ljw [facility] CenterComhenry ford wy[facility] hospital on above:Performed By: #### POCGLUC #### [facility] [address] [place], [place] [address] Dr. Taylor GarciaWBC0-2AbnormalNONBradly SEENThe Cincinnati Va Medical CenterComment on above: Performed By: #### POCGLUC #### [facility] [address] [place], [place] [address] Dr. Taylor GarciaUrea nitrogen [Mass/volume] in Serum or PlasmaOrdered By: NON STAFF on 74-50-0714Qrwc nitrogen [Mass/Vol]10 mg/dL7-25Select [facility] Rehabilitation HospitalXR CHEST 1 Von 22-30-1416EB CHEST 1 VEXAMINATION: XR CHEST 1 V [...] Electronically authenticated by: CÉSAR [employer] Date: 2023-01-22 14:40Memorial HospitalXR FOOT LEFT (MIN 3 VIEWS)on 59-64-6233LT FOOT LEFT (MIN 3 VIEWS)EXAMINATION: THREE XRAY [...] Signed by: Rimma Nunn MD 04/23/22 Final resultNormalMccullough-Hyde Memorial HospitalHemoglobin A1Con 62-65-0102Xfowula [Mass/Vol]97 mg/dLNormalMccullough-Hyde Memorial HospitalComhenry ford wyand[facility] hospital on above:Result Comment: The ADA and AACC recommend providing the estimated average glucose result to permit better patient understanding of their HBA1c result.Performed By: #### LIPR #### [facility] [address] [place] [address] [employer] Sales Manager: Yogesh Lehman DO #### GLYHGB #### [address] [address] [employer] Sales Manager: Frank Otero MDHbA1c (Bld) [Mass fraction]5.0 %Normal4.0-6.0 [facility] Memorial HospitalComhenry ford wy[facility] hospital on above:Performed By: #### LIPR #### [facility] [place] [address] [employer] Sales Manager: Yogesh Lehman DO #### GLYHGB #### [address] [address] [employer] Sales Manager: Frank Otero MDLipid Profileon 32-30-9465Smlozjxpgav [Mass/Vol] 161 mg/dLNormal<200M[facility]ull[facility]-Hyde Memorial HospitalComhenry ford [facility] hospital on above:Result Comment: Cholesterol Guidelines: <200 Desirable 200-240 Borderline >240 UndesirablePerformed By: #### LIPR #### [facility] [address] [place] [address] [employer] Sales Manager: Yogesh Lehman DO #### GLYHGB #### [address] [address] Commercial [employer] Estate Sales Manager: EDNA Modiholesterol in HDL [Mass/Vol]26 mg/dLLow>40M[facility] Memorial HospitalComhenry ford wy[facility] hospital on above:Result Comment: HDL Guidelines: <40 Undesirable 40-59 Borderline >59 DesirablePerformed By: #### LIPR #### [facility] [address] [place] [address] [employer] Estate Sales Manager: Yogesh Lehman DO #### GLYHGB #### [facility] [employer] [address] [place] [address] [employer] Sales Manager: EDNA Modiholesterol in LDL [Mass/Vol]83 mg/dLNormal0-130 [facility] HospitalComhenry ford wyand[facility] hospital on above:Result Comment: LDL Guidelines: <100 Desirable 100-129 Near to/above Desirable 130-159 Borderline >159 Undesirable Direct (measured) LDL and calculated LDL are not interchangeable tests.Performed By: #### LIPR #### [facility] [address] [place] [address] [employer] Sales Manager: Yogesh Lehman DO #### GLYHGB #### [address] [address] Commercial [employer] Estate Sales Manager: EDNA Modiholesteboni.total/Cholesterol in HDL [Mass ratio]6.2 {ratio}High<5[facility] SystemComhenry ford [facility] hospital on above:Performed By: #### LIPR #### [facility] [address] [place] [address] [employer] Sales Manager: Yogesh Lehman DO #### GLYHGB #### [address] [address] [employer] Sales Manager: Frank Otero MDTriglyceride [Mass/Vol]260 mg/dLHigh<150[facility] SystemComhenry ford wy[facility] hospital on above:Result Comment: Triglyceride Guidelines: <150 Desirable 150-199 Borderline 200-499 High >499 Very high Based on AHA Guidelines for fasting triglyceride, July 2012.Performed By: #### LIPR #### [facility] [address] [place] [address] [employer] Estate Sales Manager: Yogesh Lehman DO #### GLYHGB #### [facility] [employer] [address] [place] [address] Commercial [employer] Estate Sales Manager: Frank Otero [facility] with Diffon 30-55-1587Fnr. Basophil0.00 k/uL Normal0.0-0.2[facility] SystemComhenry ford wy[facility] hospital on above:Performed By: #### ALCB, CDP, CMPX #### [facility] [address] [place] [address] [employer] Sales Manager: Yogesh Lehamn DOAbs.Neutrophil (Seg)4.60 k/uLNormal1.3-9.1 [facility] Memorial HospitalComment on above:Performed By: #### GEENA, CDP, CMPX #### [facility] [address] [place] [address] [employer] Sales Manager: Yogesh Lehman DOBasophils/100 WBC (Bld)1 %Normal0-2MMercy HospitalComment on above:Performed By: #### GEENA, CDP, CMPX #### [facility] [place] [address] [employer] Sales Manager: Yogesh Lehman DOEosinophils (Bld) [#/Vol]0.10 10*3/uLNormal 0.0-0.4[facility] HospitalComhenry ford [facility] hospital on above:Performed By: #### GEENA, MARA, CMPX #### [facility] [place] [address] [employer] Sales Manager: Yogesh Lehman DOEosinophils/100 WBC (Bld)1 %Normal0-4[facility] HospitalComhenry ford wy[facility] hospital on above:Performed By: #### GEENA, CDP, CMPX #### [facility] [place] [address] [employer] Sales Manager: Yogesh Lehman DOErythrocyte distribution width (RBC) [Ratio] 13.2 %Euggmk54.5-14.9[facility] on above:Performed By: #### ALCB, CDP, CMPX #### [facility] [address] [place] [address] [employer] Sales Manager: Yogesh Lehman DOHematocrit (Bld) [Volume fraction]50.0 % Yrndcz20-36VavtbTrinity Health System [facility] Campus on above:Performed By: #### ALCB, CDP, CMPX #### [facility] [address] [place] [address] [employer] Sales Manager: Yogesh Lehman DOHemoglobin (Bld) [Mass/Vol]18.0 g/dLHigh 13.5-17.5[facility] on above:Performed By: #### ALCB, CDP, CMPX #### [facility] [address] [place] [address] [employer] Sales Manager: Yogesh Lehman DOLymphocytes (Bld) [#/Vol]2.00 10*3/uLNormal 1.0-4.8[facility] on above:Performed By: #### ALCB, CDP, CMPX #### [facility] [place] [address] [employer] Sales Manager: Yogesh Lehman DOLymphocytes/100 WBC (Bld)29 %Kavjft50-84HkjdrTrinity Health System East Campus on above:Performed By: #### ALCB, CDP, CMPX #### [facility] [place] [address] [employer] Sales Manager: Yogesh Lehman DOMCH (RBC) [Entitic mass]32.3 xlDuhkfx32-95 [facility] on above:Performed By: #### ALCB, CDP, CMPX #### [facility] [address] [place] [address] [employer] Sales Manager: Yogesh Lehman DOMCHC (RBC) [Mass/Vol]36.1 g/aTTqbvtv92-22 [facility] on above:Performed By: #### ALCB, CDP, CMPX #### [facility] [address] [place] [address] [employer] Sales Manager: Yogesh Lehman DOMCV (RBC) [Entitic vol]89.6 nIIoyzga86-547 [facility] on above:Performed By: #### ALCB, CDP, CMPX #### [facility] [address] [place] [address] [employer] Sales Manager: Yogesh Lehman DOMonocytes (Bld) [#/Vol]0.40 10*3/uLNormal 0.1-1.3MTogus VA Medical Center on above:Performed By: #### ALCB, CDP, CMPX #### [facility] [place] [address] [employer] Sales Manager: Yogesh Lehman DOMonocytes/100 WBC (Bld)5 %Normal2-8[facility] on above:Performed By: #### ALCB, CDP, CMPX #### [address] [address] [employer] Estate Sales Manager: Yogesh Lehman DONeutrophil (Seg)64 %Ohznkd99-54XnkckTrinity Health System East Campus on above:Performed By: #### ALCB, CDP, CMPX #### [facility] [place] [address] [employer] Estate Sales Manager: Yogesh Lehman DOPlatelet mean volume (Bld) [Entitic vol]7.9 fLNormal6.0-12.0[facility] on above:Performed By: #### ALCB, CDP, CMPX #### [facility] [address] [place] [address] [employer] Sales Manager: Yogesh Lehman DOPlatelets (Josephd) [#/Vol]213 10*3/uLNormal 150-450M[facility]de Memorial HospitalComment on above:Performed By: #### ALCB, CDP, CMPX #### [facility] [address] [place] [address] [employer] Sales Manager: Yogesh Lehman DORBC (Bld) [#/Vol]5.58 10*6/uLNormal4.5-5.9 [facility] HospitalComhenry ford [facility] hospital on above:Performed By: #### ALCB, CDP, CMPX #### [facility] [address] [place] [address] [employer] Sales Manager: Yogesh Lehman DOWBC (Josephd) [#/Vol]7.1 10*3/uLNormal4.5-13.5 [facility] on above:Performed By: #### ALCB, CDP, CMPX #### [facility] [address] [place] [address] [employer] Sales Manager: Yogesh Lehman DOComp Metabolic Pr/rfx MGon 61-70-3142JZK [Catalytic activity/Vol]U/LLow5-41[facility] HospitalComhenry ford [facility] hospital on above: Performed By: #### ALCB, CDP, CMPX #### [facility] [address] [place] [address] [employer] Sales Manager: Yogesh Lehman DO(cont.)[facility] Comment on above:Result Comment: Average GFR for 20-29 years old: 116 mL/min/1.73sq m Chronic Kidney Disease: <60 mL/min/1.73sq m Kidney failure: <15 mL/min/1.73sq m eGFR calculated using average adult body mass. Additional eGFR calculator available at: http://www.BellaDati.com/multiple_crcl_2012.htmPerformed By: #### ALCCindi, CDP, CMPX #### [facility] [address] [place] [address] [employer] Sales Manager: Yogesh Lehman DOAlbumin [Mass/Vol]4.9 g/dLNormal3.5-5.2MMercy HospitalComment on above:Performed By: #### GEENA, CDP, CMPX #### [facility] [address] [place] [address] [employer] Sales Manager: Yogesh Lehman DOAlkaline Phos50 U/DFideor88-701QxyoaMccullough-Hyde Memorial HospitalComhenry ford wyand[facility] hospital on above:Performed By: #### GEENA, CDP, CMPX #### [address] [address] [employer] Estate Sales Manager: Yogesh Lehman DOAnion gap [Moles/Vol]11 mmol/LNormal9-17[facility] HospitalComhenry ford [facility] hospital on above:Performed By: #### GEENA, MARA, CMPX #### [facility] [address] [place] [address] [employer] Sales Manager: Yogesh Lehman DOAST [Catalytic activity/Vol]21 U/LNormal<40 [facility] HospitalComhenry ford wy[facility] hospital on above:Performed By: #### GEENA, MARA, CMPX #### [facility] [address] [place] [address] [employer] Sales Manager: Yogesh Lehman DOBilirubin [Mass/Vol]0.71 mg/dLNormal0.3-1.2 [facility] HospitalComhenry ford wy[facility] hospital on above:Performed By: #### ALCB, CDP, CMPX #### [facility] [address] [place] [address] [employer] Sales Manager: Yogesh Lehman DOCalcium [Mass/Vol]9.6 mg/dLNormal8.6-10.4 [facility] HospitalComment on above:Performed By: #### ALCB, CDP, CMPX #### [facility] [address] [facility] [place] [address] Commercial [employer] Estate Sales Manager: Yogesh Lehman DOChloride [Moles/Vol]101 mmol/GSkpmlq23-474 [facility] HospitalComment on above:Performed By: #### ALCB, CDP, CMPX #### [facility] [address] [place] [address] Commercial [employer] Estate Sales Manager: Yogesh Lehman DOCO2 [Moles/Vol]26 mmol/XFwgmqa82-31FnddbMccullough-Hyde Memorial HospitalComment on above:Performed By: #### ALCCindi CDP, CMPX #### [facility] [address] [place] [address] [employer] Sales Manager: Yogesh Lehman DOCreatinine [Mass/Vol]1.12 mg/dLNormal 0.70-1.20[facility] HospitalComment on above:Performed By: #### GEENA CDP, CMPX #### [facility] [place] [address] Commercial [employer] Estate Sales Manager: Yogesh Lehman DOGFR, Amer>60Normal>60[facility] Health SystemComment on above:Performed By: #### ALCCindi, CDP, CMPX #### [facility] [place] [address] Commercial [employer] Estate Sales Manager: Yogesh Lehman DOGFR,non Amer>60Normal>60[facility] SystemComment on above:Performed By: #### ALCB, CDP, CMPX #### [facility] [place] [address] Commercial [employer] Estate Sales Manager: Fanelly, Yogesh, DOGlucose [Mass/Vol]118 mg/aKLbzt87-98BnfmaMercy HospitalComment on above:Performed By: #### ALCCindi CDP, CMPX #### [facility] [address] [place] [address] Commercial [employer] Sales Manager: Yogesh Lehman DOPotassium [Moles/Vol]4.1 mmol/LNormal3.7-5.3 [facility] HospitalComment on above:Performed By: #### ALCB, CDP, CMPX #### [address] [address] Commercial [employer] Estate Sales Manager: Yogesh Lehman DOProtein [Mass/Vol]7.6 g/dLNormal6.4-8.3MMercy HospitalComment on above:Performed By: #### MARA SEAY, CMPX #### [address] [address] Commercial [employer] Sales Manager: Yogesh Lehman, DOSodium [Moles/Vol]138 mmol/IIobdoe636-357 [facility] HospitalComhenry ford wyandotte hospital on above:Performed By: #### MARA SEAY, CMPX #### [address] [address] Commercial [employer] Estate Sales Manager: Yogesh Lehman DOUrea nitrogen [Mass/Vol]18 mg/dLNormal6-20 [facility] HospitalComhenry ford wyandotte hospital on above:Performed By: #### ALCB, CDP, CMPX #### [address] [address] [employer] Estate Sales Manager: Yogesh Lehman DODrug Scr, Abuse, Uron 04-21-2022 Amphetamine(s),UrNegativeNormalNEGMercy Trinity Health SystemComhenry ford wyandotte hospital on above: Result Comment: (Positive cutoff 1000 ng/mL)Performed By: #### UAMIC, BRANDIN #### [facility] [address] [place] [address] [employer] Sales Manager: Yogesh Lehman DOBarbiturate(s),UrNegativeNormalNEGTrinity Health System East Campus on above:Result Comment: (Positive cutoff 200 ng/mL)Performed By: #### UAMIC, BRANDIN #### [facility] [address] [place] [address] [employer] Sales Manager: Yogesh Lehman DOBenzodiazepine(s)NegativeNormalNEGMerChillicothe VA Medical Center on above:Result Comment: (Positive cutoff 200 ng/mL)Performed By: #### UAMIC, BRANDIN #### [facility] [address] [place] [address] [employer] Sales Manager: Yogesh Lehman DOCannabinoid(s),UrPositiveAbnormalNEGTrinity Health System East Campus on above:Result Comment: (Positive cutoff 50 ng/mL)Performed By: #### UAMIC, BRANDIN #### [facility] [address] [place] [address] [employer] Sales Manager: Yogesh Lehman DOCocaine MetaboliteNegativeNewark Hospital on above:Result Comment: (Positive cutoff 300 ng/mL)Performed By: #### UAMIC, BRANDIN #### [facility] [address] [place] [address] [employer] Sales Manager: Yogesh Lehman DOInterpretive InfoAssay provides medical screening only. The absence of expected drug(s) and/orNormalMercy [facility] on above:Result Comment: metabolite(s) may indicate diluted or adulterated urine, limitations of testing or timing of collection. Testing for legal purposes should be confirmed by another method. To request confirmation of test result, please call the lab within 7 days of sample submission.Performed By: #### UAMIC, BRANDIN #### [facility] [address] [place] [address] Commercial [employer] Sales Manager: Yogesh Lehman DOMethadone Ql (U)NegativeNormalNEGMccullough-Hyde Memorial HospitalComhenry ford wyandotte hospital on above:Result Comment: (Positive cutoff 300 ng/mL)Performed By: #### UAMIC, BRANDIN #### [facility] [place] [address] Commercial [employer] Estate Sales Manager: Yogesh Lehman DOOpiate(s), UrNegativeNormalNEGTrinity Health System East Campus on above:Result Comment: (Positive cutoff 300 ng/mL)Performed By: #### UAMIC, BRANDIN #### [facility] [address] [place] [address] Commercial [employer] Sales Manager: Yogesh Lehman DOOxycodone, UrineNegativeNormalNEGTrinity Health System East Campus on above:Result Comment: (Positive cutoff 100 ng/mL)Performed By: #### UAMIC, BRANDIN #### [facility] [address] [place] [address] Commercial [employer] Sales Manager: Yogesh Lehman DOPhencyclidine, UrNegativeNormhiNEGTrinity Health System East Campus on above:Result Comment: (Positive cutoff 25 ng/mL)Performed By: #### UAMIC, BRANDIN #### [facility] [address] [place] [address] Commercial [employer] Sales Manager: Yogesh Lehman DOEthanol Alcoholon 41-76-8787Fmatfaq [Mass/Vol]mg/dLNormal<10[facility] Health SystemComment on above:Performed By: #### ALCB, CDP, CMPX #### [facility] [address] [place] [address] [address] Commercial Real Estate Sales Manager: Yogesh Lehman DOEthanol percent<0.010NormalMccullough-Hyde Memorial HospitalComhenry ford [facility] hospital on above:Performed By: #### ALCB, CDP, CMPX #### [facility] [address] [facility] [place] [address] Commercial Real Estate Sales Manager: Yogesh Lehman DOUrinalysleandro w/ Microon 39-14-2120PuqodvyrCxgu Cox MonettEMeClinton Memorial HospitalComment on above:Performed By: #### UAMIC, BRANDIN #### [facility] [address] [facility] [place] [address] Commercial [employer] Estate Sales Manager: Yogesh Lehman DOBilirubin, SemiQt,UrNegativeNormalNEGMccullough-Hyde Memorial HospitalComhenry ford [facility]and[facility] hospital on above:Performed By: #### UAMIC, BRANDIN #### [facility] [facility] [place] [address] [employer] Estate Sales Manager: Yogesh Lehman DOBlood, UrineNegativeNormalMcKitrick HospitalComhenry ford [facility]and[facility] hospital on above:Performed By: #### UAMIC, BRANDIN #### [facility] [place] [address] Commercial [employer] Estate Sales Manager: Yogesh Lehman DOCasts0 TO 2NormalMccullough-Hyde Memorial Hospital Comment on above:Performed By: #### UAMIC, BRANDIN #### [facility]0 [facility] [place] [address] Commercial Real Estate Sales Manager: Yogesh Lehman DOClarity (U)TurbidAbnormalCLEARMercOhioHealth Berger HospitalComment on above:Performed By: #### UAMIC, BRANDIN #### [facility] [address] [facility] [place] [address] Commercial [employer] Estate Sales Manager: Yogesh Lehman DOColor (U)YellowNormalYELMerWadsworth-Rittman HospitalComhenry for[facility] hospital on above:Performed By: #### UAMIC, BRANDIN #### [facility] [address] [facility] [place] [address] Commercial Real Estate Sales Manager: Yogesh Lehman DOEpithelial cells LM Ql (Urine sed)0 TO 2 NormalKettering Health MiamisburgWadsworth-Rittman HospitalComhenry ford [facility]and[facility] hospital on above:Performed By: #### UAMIC, BRANDIN #### [facility] [address] [place] [address] Commercial Real Estate Sales Manager: Yogesh Lehman DOGlucose Ql (U)NegativeNormalNEGMercy Trinity Health SystemComhenry [facility] on above:Performed By: #### UAMIC, BRANDIN #### [facility] [address] [place] [address] Commercial Real Estate Sales Manager: Yogesh Lehman DOKetones Ql (U)TRACEAbnormalNEGMerWadsworth-Rittman HospitalComhenry ford [facility] hospital on above:Performed By: #### UAMIC, BRANDIN #### [address] [address] Commercial Real Estate Sales Manager: Yogesh Lehman DOLeukocyte esterase Test strip Ql (U)Negative NormalNEGMccullough-Hyde Memorial HospitalComhenry ford [facility] hospital on above:Performed By: #### UAMIC, BRANDNI #### [address] [address] Commercial Real Estate Sales Manager: Yogesh Lehman DONitrite,UrNegativeNormalNEGMccullough-Hyde Memorial HospitalComhenry [facility] hospital on above:Performed By: #### UAMIC, BRANDIN #### [facility] [address] [place] [address] Commercial Real Estate Sales Manager: Yogesh Lehman DOPH,Ur7.7Hxejtg4.0-8.0[facility] SystemComhenry for[facility] hospital on above:Performed By: #### UAMIC, BRANDIN #### [facility] [address] [place] [address] [employer] Estate Sales Manager: Yogesh Lehman DOProtein Ql (U)NegativeNormalNEGMerWadsworth-Rittman HospitalComhenry ford [facility] hospital on above:Performed By: #### UAMIC, BRANDIN #### [facility] [address] [place] [address] [employer] Estate Sales Manager: Yogesh Lehman DOSpec. Alden,Ur1.889Zkvfqa4.000-1.030Mccullough-Hyde Memorial HospitalComment on above:Performed By: #### UAMIC, BRANDIN #### [facility] [address] [place] [address] Commercial [employer] Estate Sales Manager: Yogesh Lehman DOUrine RBC's0 TO 2NUniversity Hospitals Geauga Medical CenterComhenry ford wyandotte hospital on above:Performed By: #### UAMIC, BRANDIN #### [facility] [address] [place] [address] Commercial [employer] Estate Sales Manager: Yogesh Lehman DOUrine WBC's0 TO 2NUniversity Hospitals Geauga Medical CenterComhenry ford wyandotte hospital on above:Performed By: #### UAMIC, BRANDIN #### [facility] [address] [place] [address] Commercial [employer] Estate Sales Manager: Yogesh Lehman DOUrobilinogen,UrNormalNormalNORMMccullough-Hyde Memorial HospitalComhenry for[facility] hospital on above:Performed By: #### UAMIC, BRANDIN #### [facility] [address] [place] [address] Commercial [employer] Estate Sales Manager: Yogesh Lehman DOMiscel M[facility] 04-10-2357Mbtm Out ReportSEE [facility] Mills HospitalComment on above:Result Comment: (NOTE) Test name [...] developed and its performance characteristics determined by [employer]. It has not been cleared or approved by the [place] Food and Drug Administration. Testing performed at [employer] [address] [place] [id number] CLIA [id number] By: #### ATRAZO #### [address] [address] Commercial Real Estate Sales Manager: Kodak Akbar MD #### CMPX, EDTOX, LIP, CDP #### [address] [address] Commercial Real Estate Sales Manager: Fantasma Modi [id number]<5.6Wypajr5.0-5.0Ohiohealth Berger HospitalComment on above:Result Comment: (NOTE) INTERPRETIVE INFORMATION: Glutamic Acid Decarboxylase Antibody A value greater than 5.0 IU/mL is considered positive for Glutamic Acid Decarboxylase Antibody (AUGIE Ab). This assay is intended for the semi-quantitative determination of the AUGIE Ab in human serum. Results should be interpreted within the context of clinical symptoms. Performed By: [facility] [address] [place], [place] [id number] Ecmo Specialist: MILAGROS Rodrigueserformed By: #### ATRAZO #### [address] [address] [employer] Estate Sales Manager: Kodak Akbar MD #### CMPX, EDTOX, LIP, CDP #### [address] [address] Commercial Real Estate Sales Manager: JANNET Modi-65 AUTOANTIBODYon 80-58-4970Krfpboee Acid Decarb Ab<5.0[place], KYComment on above:(NOTE) INTERPRETIVE INFORMATION: Glutamic Acid Decarboxylase Antibody A value greater than 5.0 IU/mL is considered positive for Glutamic Acid Decarboxylase Antibody (AUGIE Ab). This assay is intended for the semi-quantitative determination of the UAGIE Ab in human serum. Results should be interpreted within the context of clinical symptoms. Performed By: [facility] [address] [place] [address] Ecmo Specialist: Zayda Ospina MD Hemoglobin A1Con 98-89-0687Ybobteo [Mass/Vol]203 mg/dLBison, [place] Comment on above:The ADA and AACC recommend providing the estimated average glucose result to permit better patient understanding of their HBA1c result. HbA1c (Bld) [Mass fraction]8.7 %High4 - 6 %[facility], NCInterpretation and review of laboratory resultsAbnoLubbock, KYPO Glucose Fingerstickon 56-01-6397Ksbxxao [Mass/Vol]205 mg/uQLgnn23 - 110 mg/dLSelect Medical Specialty [facility], NCInterpretation and review of laboratory resultsAbnoLubbock, KYTRAZADONEon 22-00-3396Uddobyiuv0.62 ug/mL0.5 - 2.5 ug/mLBison, KYComment on above:(NOTE) INTERPRETIVE INFORMATION: Trazodone Therapeutic Range: 0.50 - 2.50 ug/mL Toxic: Greater than 4.00 ug/mL Adverse effects may include sedation, fatigue, headache, blurred vision and nausea. See Compliance Statement B: [employer]/CS Performed By: [facility] [address] [place] [address] Ecmo Specialist: Zayda Ospina MD Trazadoneon 29-72-1936OVXTNS>6.07Vgrj4.50-2.50[facility] Comment on above:Result Comment: (NOTE) INTERPRETIVE INFORMATION: Trazodone Therapeutic Range: 0.50 - 2.50 ug/mL Toxic: Greater than 4.00 ug/mL Adverse effects may include sedation, fatigue, headache, blurred vision and nausea. See Compliance Statement B: [employer]/CS Performed By: [facility] [address] [place], [place] [id number] Ecmo Specialist: MILAGROS Rodrigueserformed By: #### ATRAZO #### [facility] [address] [place] [address] Commercial Real Estate Sales Manager: Kodak Akbar MD #### CMPX, EDTOX, LIP, CDP #### [address] [id number] Commercial Real Estate Sales Manager: Frank Otero MDTRAZOA1.62 ug/mLNormal0.50-2.50Ohiohealth Berger HospitalComment on above:Result Comment: (NOTE) INTERPRETIVE INFORMATION: Trazodone Therapeutic Range: 0.50 - 2.50 ug/mL Toxic: Greater than 4.00 ug/mL Adverse effects may include sedation, fatigue, headache, blurred vision and nausea. See Compliance Statement B: [employer]/ Performed By: [facility] [address] [place] [address] Ecmo Specialist: MILAGROS Rodrigueserformed By: #### ATRAZO #### [address] [address] Commercial Real Estate Sales Manager: Kodak Akbar MD #### CMPX, EDTOX, LIP, CDP #### [address] [address] Commercial Real Estate Sales Manager: Kaz Modi Metab w/rfx MGon 08-01-2020(cont.)Normal Ohio[facility] Berger HospitalComment on above:Result Comment: Average GFR for <20 years old not available. Chronic Kidney Disease: <60 mL/min/1.73sq m Kidney failure: <15 mL/min/1.73sq m eGFR calculated using average adult body mass. Additional eGFR calculator available at: http://www.BellaDati.com/multiple_crcl_2012.htmPerformed By: #### ATRAZO #### [address] [address] Commercial Real Estate Sales Manager: Kodak Akbar MD #### CMPX, EDTOX, LIP, CDP #### [address] [phone] [employer] Estate Sales Manager: Frank Otero MDGFR,non AmerPediatric GFR requires additional information. Refer to NKDEP website forNormal>60Ohiohealth Berger HospitalComment on above:Result Comment: calculator.Performed By: #### ATRAZO #### [facility] [address] [place] [address] Commercial Real Estate Sales Manager: Kodak Akbar MD #### CMPX, EDTOX, LIP, CDP #### [facility] [address] [place] [address] Commercial Real Estate Sales Manager: LELIA Modi/LANEY Alfaro REPORTEDNormal9-20Ohio[facility] Berger HospitalComment on above:Performed By: #### ATRAZO #### [facility] [address] [place] [address] Commercial Real Estate Sales Manager: Kodak Akbar MD #### CMPX, EDTOX, LIP, CDP #### [facility] [address] [phone] Commercial Real Estate Sales Manager: RADHA Modi, AmerNOT REPORTEDNormal>60[facility] Berger HospitalComment on above:Performed By: #### ATRAZO #### [facility] [address] [place] [address] Commercial Real Estate Sales Manager: Kodak Akbar MD #### CMPX, EDTOX, LIP, CDP #### [address] [id number] Commercial Real Estate Sales Manager: WILLIAM Moditaging:NOT REPORTEDNormalOhiohealth Berger HospitalComment on above:Performed By: #### ATRAZO #### [facility] [address] [place] [address] Commercial Real Estate Sales Manager: Kodak Akbar MD #### CMPX, EDTOX, LIP, CDP #### [address] [address] Commercial Real Estate Sales Manager: Janay Modi gap [Moles/Vol]13 mmol/LNormal9-17[facility], NCComment on above:Performed By: #### ATRAZO #### [facility] [address] [place] [address] Commercial Real Estate Sales Manager: Kodak Akbar MD #### CMPX, EDTOX, LIP, CDP #### [address] [phone] Commercial [employer] Estate Sales Manager: Frank Otero MDCalcium [Mass/Vol]9.3 mg/dLNormal8.6-10.4[facility], KYComment on above:Performed By: #### ATRAZO #### [facility] [address] [place] [address] Commercial Real Estate Sales Manager: Kodak Akbar MD #### FELICIA BUNN, LIP, CDP #### [address] [address] Commercial Real Estate Sales Manager: Frank Otero MDChloride [Moles/Vol]104 mmol/ZLjwmqb10-767[facility]- [place], KYComment on above:Performed By: #### ATRAZO #### [facility] [address] [place] [address] Commercial Real Estate Sales Manager: Kodak Akbar MD #### FELICIA BUNN, LIP, CDP #### [address] [address] Commercial Real Estate Sales Manager: Frank Otero, MDCO2 [Moles/Vol]23 mmol/LJmyknb65-89Kgthc [facility]- [place], KYComment on above:Performed By: #### ATRAZO #### [facility] [address] [place] [address] Commercial Real Estate Sales Manager: Kodak Akbar MD #### CMPX, EDTOX, LIP, CDP #### [address] [phone] Commercial Real Estate Sales Manager: Frank Otero MDCreatinine [Mass/Vol]0.92 mg/dLNormal0.70-1.20 [facility], KYComment on above:Performed By: #### ATRAZO #### [facility] [address] [place] [address] Commercial Real Estate Sales Manager: Kodak Akbar MD #### CMPX, EDTOX, LIP, CDP #### [address] [phone] Commercial Real Estate Sales Manager: Frank Otero MDGlucose [Mass/Vol]185 mg/sBOgie57-75Blpsr Health- [place], KYComment on above:Performed By: #### ATRAZO #### [facility] [address] [place] [address] Commercial Real Estate Sales Manager: Kodak Akbar MD #### CMPX, EDTOX, LIP, CDP #### [address] [phone] Commercial Real Estate Sales Manager: MILAGROS Modiotassium [Moles/Vol]4.1 mmol/LNormal3.7-5.3 [facility], KYComment on above:Performed By: #### ATRAZO #### [address] [address] Commercial Real Estate Sales Manager: Kodak Akbar MD #### CMPKatalina EDNORRISX, LIP, CDP #### [address] [phone] Commercial Real Estate Sales Manager: WILLIAM Modiodium [Moles/Vol]140 mmol/ZBgdjsr581-561Qfqwf Health- [place], KYComment on above:Performed By: #### ATRAZO #### [facility] [address] [place] [address] Commercial Real Estate Sales Manager: Kodak Akbar MD #### CMPX, EDTOX, LIP, CDP #### [address] [phone] Commercial Real Estate Sales Manager: Frank Otero MDUrea nitrogen [Mass/Vol]12 mg/dLNormal6-20[facility], KYComment on above:Performed By: #### ATRAZO #### [facility] [address] [place] [address] Commercial Real Estate Sales Manager: Kodak Akbar MD #### CMPX, EDTOX, LIP, CDP #### [address] [phone] Commercial Real Estate Sales Manager: Frank Otero [facility] with Diffon 62-32-0075Aig. Basophil0.05 k/uL Normal0.00-0.20[facility] Berger HospitalComment on above:Performed By: #### ATRAZO #### [facility] [address] [place] [address] Commercial Real Estate Sales Manager: Kodak Akbar MD #### CMPKatalina, EDTOKatalina, LIP, CDP #### [address] [phone] Commercial Real Estate Sales Manager: Luis Enrique Modi.Imm.Granulocyte0.03 k/uLNormal0.00-0.30[facility] Berger HospitalComment on above:Performed By: #### ATRAZO #### [facility] [address] [place] [address] Commercial Real Estate Sales Manager: Kodak Akbar MD #### SEPIDEH, FELICIA, LIP, CDP #### [address] [phone] Commercial Real Estate Sales Manager: Luis Enrique Modi.Neutrophil (Seg)2.38 k/uLNormal1.80-8.00 [facility] Berger HospitalComment on above:Performed By: #### ATRAZO #### [facility] [address] [place] [address] Commercial Real Estate Sales Manager: Kodak Akbar MD #### CMPX, EDTOX, LIP, CDP #### [address] [phone] Commercial Real Estate Sales Manager: Frank Otero MDBasophils/100 WBC (Bld)1 %Normal0-2MercHighland Springs Surgical CenterComment on above:Performed By: #### ATRAZO #### [facility] [address] [place] [address] Commercial Real Estate Sales Manager: Kodak Akbar MD #### CMPX, EDTOX, LIP, CDP #### [facility] [address] [place] [address] Commercial Real Estate Sales Manager: Frank Otero MDEosinophils (Bld) [#/Vol]0.08 10*3/uLNormal 0.00-0.44[facility] Berger HospitalComment on above:Performed By: #### ATRAZO #### [facility] [address] [place] [address] Commercial Real Estate Sales Manager: Kodak Akbar MD #### CMPX, EDTOX, LIP, CDP #### [address] [phone] Commercial Real Estate Sales Manager: Frank Otero MDEosinophils/100 WBC (Bld)2 %Normal1-4[facility] Berger HospitalComment on above:Performed By: #### ATRAZO #### [facility] [address] [place], [place] [id number] Commercial Real Estate Sales Manager: Kodak Akbar MD #### CMPX, EDTOX, LIP, CDP #### [address] [phone] Commercial Real Estate Sales Manager: rFank Otero MDErythrocyte distribution width (RBC) [Ratio]12.6 %Irkpiw45.8-14.4[facility] Berger HospitalComment on above:Performed By: #### ATRAZO #### [facility] [address] [place], [place] [address] Commercial Real Estate Sales Manager: Kodak Akbar MD #### CMPX, EDTOX, LIP, CDP #### [address] [phone] Commercial Real Estate Sales Manager: Frank Otero MDHematocrit (Bld) [Volume fraction]46.5 %Normal 40.7-50.3[facility] Gardner SanitariumComment on above:Performed By: #### ATRAZO #### [facility] [address] [place], [place] [id number] Commercial Real Estate Sales Manager: Kodak Akbar MD #### CMPX, EDTOX, LIP, CDP #### [place] [address] Commercial Real Estate Sales Manager: Frank Otero MDHemoglobin (Bld) [Mass/Vol]16.0 g/dLNormal 13.0-17.0[facility] Berger HospitalComment on above:Performed By: #### ATRAZO #### [facility] [address] [place] [address] Commercial Real Estate Sales Manager: Kodak Akbar MD #### CMPX, EDTOX, LIP, CDP #### [place] [address] Commercial Real Estate Sales Manager: Frank Otero MDImmature granulocytes (Bld) [#/Vol]1 %Krnj3QlflsOhiohealth Berger HospitalComment on above:Performed By: #### ATRAZO #### [facility] [address] [place] [address] Commercial Real Estate Sales Manager: Kodak Akbar MD #### CMPX, EDTOX, LIP, CDP #### [place] [phone] Commercial Real Estate Sales Manager: Frank Otero MDLymphocytes (Bld) [#/Vol]1.81 10*3/uLNormal 1.20-5.20[facility] Berger HospitalComment on above:Performed By: #### ATRAZO #### [facility] [address] [place] [address] Commercial Real Estate Sales Manager: Kodak Akbar MD #### CMPX, EDTOX, LIP, CDP #### [place] [phone] Commercial Real Estate Sales Manager: Frank Oetro MDLymphocytes/100 WBC (Bld)38 %Utplkb37-41NvhjgOhiohealth Berger HospitalComment on above:Performed By: #### ATRAZO #### [facility] [address] [place] [address] Commercial Real Estate Sales Manager: Kodak Akbar MD #### CMPX, EDTOX, LIP, CDP #### [address] [id number] Commercial Real Estate Sales Manager: BHANU ModiCH (RBC) [Entitic mass]31.6 fdCcdxsg91.2-33.5 [facility] HospitalComment on above:Performed By: #### ATRAZO #### [facility] [address] [place] [address] Commercial Real Estate Sales Manager: Kodak Akbar MD #### CMPX, EDTOX, LIP, CDP #### [address] [phone] Commercial Real Estate Sales Manager: HERSON ModiC (RBC) [Mass/Vol]34.4 g/vANhroad02.4-34.8 [facility] HospitalComment on above:Performed By: #### ATRAZO #### [facility] [address] [place] [address] Commercial Real Estate Sales Manager: Kodak Akbar MD #### CMPX, EDTOX, LIP, CDP #### [address] [address] Commercial Real Estate Sales Manager: BHANU ModiCV (RBC) [Entitic vol]91.7 nYFabyih70.6-102.9 [facility] HospitalComment on above:Performed By: #### ATRAZO #### [facility] [address] [place] [address] Commercial Real Estate Sales Manager: Kodak Akbar MD #### CMPX, EDTOX, LIP, CDP #### [facility] [address] [place] [address] Commercial Real Estate Sales Manager: BHANU Modionocytes (Bld) [#/Vol]0.47 10*3/uLNormal 0.10-1.40[facility] HospitalComment on above:Performed By: #### ATRAZO #### [facility] [address] [place] [address] Commercial Real Estate Sales Manager: Kodak Akbar MD #### CMPX, EDTOX, LIP, CDP #### [facility] [address] [place] [address] Commercial Real Estate Sales Manager: BHANU Modionocytes/100 WBC (Bld)10 %High2-8[facility] HospitalComment on above:Performed By: #### ATRAZO #### [facility] [address] [place] [address] Commercial Real Estate Sales Manager: Kodak Akbar MD #### CMPX, EDTOX, LIP, CDP #### [address] [address] Commercial Real Estate Sales Manager: Frank Otero MDNeutrophil (Seg)49 %Ltaqlw29-73MbmkqOhiohealth Berger HospitalComment on above:Performed By: #### ATRAZO #### [facility] [address] [place] [address] Commercial Real Estate Sales Manager: Kodak Akbar MD #### CMPX, EDTOX, LIP, CDP #### [facility] [address] [place] [address] Commercial Real Estate Sales Manager: Frank Otero MDNRBC Automated0.0 per 100 WBCNormal0.0[facility] HospitalComment on above:Performed By: #### ATRAZO #### [facility] [address] [place] [address] Commercial Real Estate Sales Manager: Kodak Akbar MD #### CMPX, EDTOX, LIP, CDP #### [address] [address] Commercial Real Estate Sales Manager: Viki Modi mean volume (Bld) [Entitic vol]10.5 fL Normal8.1-13.5[facility] Berger HospitalComment on above:Performed By: #### ATRAZO #### [facility] [address] [place] [address] Commercial Real Estate Sales Manager: Kodak Akbar MD #### CMPX, EDTOX, LIP, CDP #### [address] [address] Commercial Real Estate Sales Manager: Irvin Modi (Bld) [#/Vol]141 10*3/zTThisak436-376 [facility] HospitalComment on above:Performed By: #### ATRAZO #### [facility] [address] [place] [address] Commercial Real Estate Sales Manager: Kodak Akbar MD #### CMPX, EDTOX, LIP, CDP #### [place] [address] Commercial Real Estate Sales Manager: Frank Otero [facility] HOSPITALBC (Bld) [#/Vol]5.07 10*6/uLNormal4.21-5.77 [facility] HospitalComment on above:Performed By: #### ATRAZO #### [facility] [address] [place] [address] Commercial Real Estate Sales Manager: Kodak Akbar MD #### CMPX, EDTOX, LIP, CDP #### [address] [address] Commercial Real Estate Sales Manager: Frank Otero MDWBC (Bld) [#/Vol]4.8 10*3/uLNormal4.5-13.5[facility] HospitalComment on above:Performed By: #### ATRAZO #### [facility] [address] [place] [address] Commercial Real Estate Sales Manager: Kodak Akbar MD #### CMPX, EDTOX, LIP, CDP #### [facility] [address] [place] [address] Commercial Real Estate Sales Manager: Kay Modi PerformedNOT REPORTEDProMedica Defiance Regional HospitalComment on above:Performed By: #### ATRAZO #### [facility] [address] [place] [address] Commercial Real Estate Sales Manager: Kodak Akbar MD #### CMPX, EDTOX, LIP, CDP #### [facility] [address] [place] [address] [phone] Commercial Real Estate Sales Manager: MILAGROS Modilatelets (Bld) [#/Vol]NOT REPORTEDProMedica Defiance Regional HospitalComment on above:Performed By: #### ATRAZO #### [facility] [address] [place] [address] Commercial Real Estate Sales Manager: Kodak Akbar MD #### CMPX, EDTOX, LIP, CDP #### [facility] [address] [place] [address] [phone] Commercial Real Estate Sales Manager: EVAN Modi morphology finding Nom (Bld)NOT REPORTED [facility] HospitalComment on above:Performed By: #### ATRAZO #### [facility] [address] [place] [address] Commercial Real Estate Sales Manager: Kodak Akbar MD #### CMPX, EDTOX, LIP, CDP #### [facility] [address] [place] [phone] Commercial Real Estate Sales Manager: Frank Otero MDWBC MorphologyNOT REPORTEDProMedica Defiance Regional HospitalComment on above:Performed By: #### ATRAZO #### [facility] [address] [place] [address] Commercial Real Estate Sales Manager: Kodak Akbar MD #### CMPX, EDTOX, LIP, CDP #### [facility] [address] [place] [phone] Commercial Real Estate Sales Manager: Frank Otero MDHematologyon 34-62-3294Bqpzzxkpd (Bld) [#/Vol] 0.05 10*3/[facility]- [place], KYBasophils/100 WBC (Bld)1 %0 - 2 %[facility] [place], KYEosinophils (Bld) [#/Vol]0.08 10*3/[facility]- [place], KYEosinophils/100 WBC (Bld)2 %1 - 4 %[facility]- [place], KYHematocrit (Bld) [Volume fraction]46.5 % 40.7 - 50.3 %[facility] [facility] [place], KYHemoglobin (Bld) [Mass/Vol]16.0 g/dL13 - 17 g/dLPremier Health [facility]- [place], KYLymphocytes (Bld) [#/Vol]1.81 10*3/[facility]- [place], KYLymphocytes/100 WBC (Bld)38 %25 - 45 %[facility]- [place], KYMCH (RBC) [Entitic mass]31.6 pg25.2 - 33.5 pgR[facility]view [facility] Institute [place], KYMCV (RBC) [Entitic vol]91.7 fL82.6 - 102.9 fLPremier Health [facility]- [place], KYMonocytes (Bld) [#/Vol]0.47 10*3/[facility]- [place], KYMonocytes/100 WBC (Bld)10 %High2 - 8 %[facility]- [place], KYPlatelets (Bld) [#/Vol]NOT REPORTEDPremier Health [facility]- [place], KYPlatelets (Bld) [#/Vol]141 10*3/[facility]- [place], KYRBC (Bld) [#/Vol]5.07 10*6/uL4.21 - 5.77 m/[facility]- [place], [place] RBC morphology finding Nom (Bld)NOT REPORTEDPremier [facility]- [place], KYWBC (Bld) [#/Vol]4.8 10*3/uLSelect [facility], DENITAWBC (Bld) [#/Vol]0.0 10*3/uL0.0 per 100 WBCSelect Medical Specialty Hospital [facility], [place] Singhon [id number] Phos42 U/UHopong74-235 [facility] Berger HospitalComment on above:Performed By: #### ATRAZO #### [facility] [address] [place] [address] Commercial Real Estate Sales Manager: Kodak Akbar MD #### CMPX, EDTOX, LIP, CDP #### [address] [address] Commercial Real Estate Sales Manager: Frank Otero MDGlobulin (S) [Mass/Vol]NOT REPORTEDNormal1.5-3.8 [facility] Berger HospitalComment on above:Performed By: #### ATRAZO #### [facility] [address] [place] [address] Commercial Real Estate Sales Manager: Kodak Akbar MD #### CMPX, EDTOX, LIP, CDP #### [address] [address] Commercial Real Estate Sales Manager: Frank Otero MDAlbumin [Mass/Vol]4.2 g/dLNormal3.5-5.2MGrand Forks, KYComment on above:Performed By: #### ATRAZO #### [facility] [address], [place] [id number] Commercial Real Estate Sales Manager: Kodak Akbar MD #### CMPX, EDTOX, LIP, CDP #### [address] [address] Commercial Real Estate Sales Manager: Farnk Otero MDAlbumin/Globulin [Mass ratio]1.9 {ratio}Normal 1.0-2.5[place], KYComment on above:Performed By: #### ATRAZO #### [facility] [address], [place] [id number] Commercial Real Estate Sales Manager: Kodak Akbar MD #### CMPX, EDTOX, LIP, CDP #### [address] [address] Commercial Real Estate Sales Manager: Frank Otero MDALT [Catalytic activity/Vol]20 U/LNormal5-41 [facility], KYComment on above:Performed By: #### ATRAZO #### [facility] [address] [place] [address] Commercial Real Estate Sales Manager: Kodak Akbar MD #### CMPX, EDTOX, LIP, CDP #### [address] [address] Commercial Real Estate Sales Manager: Frank Otero MDAST [Catalytic activity/Vol]15 U/LNormal<40[facility], KYComment on above:Performed By: #### ATRAZO #### [facility] [address] [place] [address] Commercial Real Estate Sales Manager: Kodak Akbar MD #### CMPX, EDTOX, LIP, CDP #### [address] [address] Commercial Real Estate Sales Manager: Frank Otero MDBilirubin Ql (U)0.56 mg/dLNormal0.3-1.2MLima City Hospital, KYComment on above:Performed By: #### ATRAZO #### [facility] [address], [place] [id number] Commercial Real Estate Sales Manager: Kodak Akbar MD #### CMPX, EDTOX, LIP, CDP #### [address] [address] Commercial Real Estate Sales Manager: Frank Otero MDBilirubin, Indirect0.43 mg/dLNormal0.00-1.00 [facility], KYComment on above:Performed By: #### ATRAZO #### [facility] [address], [place] [id number] Commercial Real Estate Sales Manager: Kodak Akbar MD #### CMPX, EDTOX, LIP, CDP #### [address] [phone] Commercial Real Estate Sales Manager: Gregory Modiirubin.direct [Mass/Vol]0.13 mg/dLNormal<0.31 [place], KYComhenry ford wy[facility]otte hospital on above:Performed By: #### ATRAZO #### [facility] [address] [place] [address] Commercial Real Estate Sales Manager: Kodak Akbar MD #### CMPX, EDTOX, LIP, CDP #### [address] [address] Commercial Real Estate Sales Manager: Frank Otero MDProtein [Mass/Vol]6.4 g/dLNormal6.4-8.3MGrand Forks, KYComhenry ford wyandotte hospital on above:Performed By: #### ATRAZO #### [facility] [address], [place] [id number] Commercial Real Estate Sales Manager: Kodak Akbar MD #### CMPX, EDTOX, LIP, CDP #### [address] [address] Commercial Real Estate Sales Manager: BHANU Modietabolic Panelon [id number] [Catalytic activity/Vol]42 U/L40 - 129 U/LMLima City Hospital, KYGFR/1.73 sq M predicted among non-blacks MDRD (S/P/Bld) [Vol rate/Area][place], KYComhenry ford wyandotte hospital on above: Average GFR for <20 years old not available. Chronic Kidney Disease: <60 mL/min/1.73sq m Kidney failure: <15 mL/min/1.73sq m eGFR calculated using average adult body mass. Additional eGFR calculator available at: http://www.BellaDati.Appolicious/multiple_crcl_2012.htm GFR/1.73 sq M predicted among non-blacks MDRD (S/P/Bld) [Vol rate/Area]NOT REPORTEDSelect Medical Specialty Hospital - [facility] SouthJavieron [id number]-CoV-2, TotalNegativeNEGATIVE [facility] SouthDENITAWashington County Memorial Hospital on above: Negative results [...] authorized laboratories. Fact sheet for Healthcare Providers: https://www.fda.gov/media/147464/download Fact sheet for Patients: https://www.fda.gov/media/738453/download METHODOLOGY: ECIA TRKF-TnR-3Rlhxu Health- OHRADHASEAQOV-DgN-4, RapidNot DetectedNot DetectedSelect Medical Specialty Hospital [facility] on above: Rapid NAAT: The specimen [...] management decisions. Fact sheet for Healthcare Providers: https://www.fda.gov/media/701586/download Fact sheet for Patients: https://www.fda.gov/media/271984/download Methodology: Isothermal Nucleic Acid Amplification Source.NASOPHARYNGEAL SWABSelect Medical Specialty [facility], KYBun/Cre RatioNOT REPORTEDSelect Medical Specialty [facility], KYGFR AmericanNOT REPORTED>60 mL/minSelect Medical Specialty Hospital - [facility], KYGFR Non- AmericanPediatric GFR requires additional information. Refer to NKDEP website for calculator.>60 mL/minSelect Medical Specialty Hospital - [facility], NCGlobulin (S) [Mass/Vol]NOT REPORTED1.5 - 3.8 g/dLSelect Medical Specialty Hospital [facility], KYInterpretation and review of laboratory resultsAbnoCleveland Clinic Hillcrest Hospital, KYDifferential TypeNOT REPORTEDSelect Medical [facility], NCErythrocyte distribution width (RBC) [Ratio]12.6 % 11.8 - 14.4 %[facility], NCImmawvumedicine barnesville hospital granulocytes (Bld) [#/Vol]1 %High0 [facility], NCImmature granulocytes (Bld) [#/Vol]0.03 10*3/uLSelect Medical Specialty Hospital - [facility], KYInterpretation and review of laboratory resultsAbnoCleveland Clinic Hillcrest Hospital, NCMCHC (RBC) [Mass/Vol]34.4 g/dL28.4 - 34.8 g/dLSelect Medical Specialty Hospital - [facility], NCPlatelet mean volume (Bld) [Entitic vol]10.5 fL8.1 - 13.5 fLSelect Medical Specialty Hospital - [facility], NCSegmented neutrophils/100 WBC (Bld)49 %34 - 64 %[facility], NCSegs Absolute2.38[facility], KYWBC MorphologyNOT REPORTEDSelect Medical [facility], NCPOC Glucose Fingerstickon [id number] [Mass/Vol]193 mg/aVQvfx44 - 110 mg/dLSelect Medical Specialty [facility], KYInterpretation and review of laboratory resultsAbnoCleveland Clinic Hillcrest Hospital, NCGlucose [Mass/Vol]162 mg/oLQrhl35 - 110 mg/dLSelect Medical Specialty [facility], [place] Interpretation and review of laboratory resultsAbnoCleveland Clinic Hillcrest Hospital, [place] Glucose [Mass/Vol]204 mg/rTJdbc88 - 110 mg/dLSelect Medical Specialty [facility], NCInterpretation and review of laboratory resultsAbnoCleveland Clinic Hillcrest Hospital, NCGlucose [Mass/Vol] 197 mg/kSPzkj69 - 110 mg/dLSelect Medical Specialty [facility], NCInterpretation and review of laboratory resultsAbTrumbull Regional Medical Center, VHLMEI-RdI-62 Abon 08-01-2020 SARS-CoV-19 Ab, TotNegativeNormalNEGMercy Hokes Bluff Medical CenterComment on above:Result Comment: Negative results [...] authorized laboratories. Fact sheet for Healthcare Providers: https://www.fda.gov/media/591527/download Fact sheet for Patients: https://www.fda.gov/media/009308/download METHODOLOGY: ECIAPerformed By: #### ATRAZO #### [facility] [address] [place] [phone] Commercial Real Estate Sales Manager: Kodak Akbar MD #### CMPX, EDTOX, LIP, CDP #### [place] [phone] Commercial Real Estate Sales Manager: RANDALL ModiCoV-2on [id number]-CoV-2NUniversity Hospitals Portage Medical CenterComment on above:Performed By: #### ATRAZO #### [facility] [address] [place] [address] Commercial Real Estate Sales Manager: Kodak Akbar MD #### CMPX, EDTOX, LIP, CDP #### [place] [phone] Commercial Real Estate Sales Manager: RANDALL ModiCoV-2,RapidNot DetectedNormalNOTDETMercy Gardner SanitariumComment on above:Result Comment: Rapid NAAT: The specimen [...] management decisions. Fact sheet for Healthcare Providers: https://www.fda.gov/media/433999/download Fact sheet for Patients: https://www.fda.gov/media/677186/download Methodology: Isothermal Nucleic Acid AmplificationPerformed By: #### ATRAZO #### [facility] [address] [place] [address] Commercial Real Estate Sales Manager: Kodak Akbar MD #### FELICIA BUNN LIP, CDP #### [facility] [employer] [address] [place] [address] Commercial Real Estate Sales Manager: WILLIAM ModiARS-CoV-2 Source.NASOPHARYNGEAL SWABNormalOhiohealth Berger HospitalComment on above:Performed By: #### ATRAZO #### [facility] [address] [place] [address] Commercial Real Estate Sales Manager: Kodak Akbar MD #### FELICIA BUNN LIP, CDP #### [facility] CampusDataloop.IO [address] [place] [address] Commercial Real Estate Sales Manager: Ahmet Modi [phone] (P) [Mass/Vol]34 umol/YEvyljq97-52Vxoya [facility]- [place], KYComment on above:Performed By: #### ATRAZO #### [facility] [address], [place] [id number] Commercial Real Estate Sales Manager: Kodak Akbar MD #### FELICIA BUNN LIP, CDP #### [facility] [employer] [address] [place] [address] Commercial Real Estate Sales Manager: Frank Otero Grafton City Hospitalrosaura [phone] in LDL [Mass/Vol]78 mg/dL<100[place], KYCholesterol [Mass/Vol]139 mg/dL<200 [facility]- [place], KYComment on above: Cholesterol Guidelines: <200 Desirable 200-240 Borderline >240 Undesirable Cholesterol in HDL [Mass/Vol]20 mg/dLLow>40[facility]- [place], KYComment on above: HDL Guidelines: <40 Undesirable 40-59 Borderline >59 Desirable Cholesterol in LDL [Mass/Vol]0 - 130 mg/dLAshtabula General Hospital Health- [place], KYComment on above: Calculation not valid for Triglyceride value greater than 400 mg/dL. Direct LDL reflexed LDL Guidelines: <100 Desirable 100-129 Near to/above Desirable 130-159 Borderline >159 Undesirable Direct (measured) LDL and calculated LDL are not interchangeable tests. Triglyceride [Mass/Vol]406 mg/dLHigh<150[facility]- [place], KYComment on above: Triglyceride Guidelines: <150 Desirable 150-199 Borderline 200-499 High >499 Very high Based on AHA Guidelines for fasting triglyceride, July 2012. EKG 12 Leadon [id number] Ndvj17EXSZohlj Health- [place], KYAtrial Lwie82VWA [facility] [place], KYAtrial Tzxu93NIGDjeck [facility]- [place], KYP Wihy68pwrnrkaTfwmu [facility]- [place], [place]YP Ylvc45vkqrokwBbdwr Health- [place], [place]YP Abmh48vmdsuxqYutbw Health- [place], KYP-R Vyojimqz802 msMercy [facility]- [place], [place]-R Ghuxwrxe339 msMercy [facility]- [place], [place]-R Jsztpzsf159 msMercy [facility]- [place], KYQ-T Aatzxckl302 msMercy [facility]- [place], KYQ- T Zykukczd242 msMercy [facility]- [place], KYQ-T Mujfuxnm960 msMercy [facility]- [place], KYQRS Evsgvuqj16 msMercy [facility]- [place], KYQTc Calculation ()454 msMercy [facility]- [place] KYQTc Calculation ()481 msMercy [facility]- [place], KYQTc Calculation ()421 msMercy Health- [place], KYR Dsfd87gartzmlYimcd Health- [place], [place] Ukea81tnolidxIoyih [facility]- [place], KYR Myvd64kpqukexTkgrg [facility]- [place], KYT Dwzp81rqqypouNgtep Health- [place], KYT Znzl27uszsyyvIizss Health- [place], KYT Qzlu57zmhyocfWgoak Health- [place], [place] Ventricular Edor14XGWLuetw Health- [place], KYVentricular Zqge29EJRXtzvj Health- [place], KYVentricular Davu75WBVBfiwm [facility]- [place], KYEdi, Mhpn Incoming Ekg Results From [facility] - 07/31/2020 11:14 AM EDT Normal sinus rhythm Normal ECG When compared with ECG of 30-JUL-2020 13:41, Premature ventricular complexes are no longer PresentMer Health- [place], KYNormal sinus rhythm Normal ECG When compared with ECG of 30-JUL-2020 13:41, Premature ventricular complexes are no longer PresentMer Health- [place], KYEdi, Mhpn Incoming Ekg Results From [facility] - 07/31/2020 11:14 AM EDT Normal sinus rhythm Possible Left atrial enlargement Rightward axis Borderline ECG When compared with ECG of 30-JUL-2020 13:50, T wave amplitude has increased in Anterolateral leadsAshtabula General Hospital Health- [place], KYEdi, Mhpn Incoming Ekg Results From [facility] - 07/31/2020 11:14 AM EDT Sinus rhythm with frequent Premature ventricular complexes in a pattern of bigeminy Otherwise normal ECG When compared with ECG of 30-JUL-2020 13:35, Vent. rate has increased BY 29 BPM QT has lengthenedAshtabula General Hospital Health- [place], KYSinus rhythm with frequent Premature ventricular complexes in a pattern of bigeminy Otherwise normal ECG When compared with ECG of 30-JUL-2020 13:35, Vent. rate has increased BY 29 BPM QT has lengthenedKettering Health Miamisburgcy Health- [place], KYNormal sinus rhythm Possible Left atrial enlargement Rightward axis Borderline ECG When compared with ECG of 30-JUL-2020 13:50, T wave amplitude has increased in Anterolateral leadsMer Health- [place], [place] Atrial Viel25ERQPwxtb Health- [place], KYP Meao83vkaphjiDlask Health- [place], KYP-R Qhhdqcvs447 msMercy Health- [place], KYQ-T Ihyeilzs568 msMercy Health- [place], KYQRS Ludfjaqy671 msMercy Health- [place], KYQTc Calculation (Bazett)410 msMercy Health- [place], KYR Eloe48abjcmqvXauhp Health- [place], KYT Ohhn34jyfbqlaRwngv Health- [place], [place] Ventricular Stut38TXWGkebl Health- [place], KYEdi, Mhpn Incoming Ekg Results From [facility] - 07/31/2020 11:14 AM EDT Sinus bradycardia with frequent Premature ventricular complexes Otherwise normal ECG No previous ECGs availableSelect Medical [facility]ty [facility], NCSinus bradycardia with frequent Premature ventricular complexes Otherwise normal ECG No previous ECGs available [facility], NCHEMOGLOBIN A1Con [id number] [Mass/Vol]209 mg/dLSelect Medical Specialty Hospital - [facility], NCComment on above:The ADA and AACC recommend providing the estimated average glucose result to permit better patient understanding of their HBA1c result. HbA1c (Bld) [Mass fraction]8.9 %High4 - 6 %[facility], NCInterpretation and review of laboratory resultsAbnormLakeHealth Beachwood Medical Center, NCHEPATIC FUNCTION PANELon [id number] [Mass/Vol]4 g/dL3.5 - 5.2 g/dLSelect Medical Specialty [facility], [place] Albumin/Globulin [Mass ratio]2.1 {ratio}[facility], NCALP [Catalytic activity/Vol]39 U/LLow40 - 129 U/LMLima City Hospital, NCALT [Catalytic activity/Vol]18 U/L5 - 41 U/LMLima City Hospital, KYAST [Catalytic activity/Vol]15 U/L<40[facility], NCBilirubin Ql (U)0.52 mg/dL0.3 - 1.2 mg/dLSelect Medical Specialty [facility], NCBilirubin, Indirect0.39 mg/dL0 - 1 mg/dLSelect Medical Specialty Hospital - [facility], [place] Bilirubin.direct [Mass/Vol]0.13 mg/dL<0.31[facility], NCGlobulin (S) [Mass/Vol]NOT REPORTED1.5 - 3.8 g/dLSelect Medical Specialty [facility], NCInterpretation and review of laboratory resultsAbnoCleveland Clinic Hillcrest Hospital, NCProtein [Mass/Vol]5.9 g/dLLow6.4 - 8.3 g/dLSelect Medical Specialty [facility], NCHemoglobin A1Con [id number] (Bld) [Mass fraction]209 mg/dLNoMorrow County HospitalComment on above: Result Comment: The ADA and AACC recommend providing the estimated average glucose result to permit better patient understanding of their HBA1c result.Performed By: #### ATRAZO #### [facility] [address] [place] [address] Commercial Real Estate Sales Manager: Kodak Akbar MD #### CMPX, EDTOX, LIP, CDP #### [facility] [address] [place] [phone] Commercial Real Estate Sales Manager: Frank Otero MDHbA1c (Bld) [Mass fraction]8.9 %High4.0-6.0Ohiohealth Berger HospitalComment on above:Performed By: #### ATRAZO #### [facility] [address] [place] [address] Commercial Real Estate Sales Manager: Kodak Akbar MD #### CMPX, EDTOX, LIP, CDP #### [facility] [address] [place] [phone] Commercial Real Estate Sales Manager: Frank Otero MDLDL Chol, Directon [id number] Chol, Mtzpsy52 mg/dLNormal<100Ohiohealth Berger HospitalComment on above:Performed By: #### ATRAZO #### [facility] [address] [place] [address] Commercial Real Estate Sales Manager: Kodak Akbar MD #### CMPX, EDTOX, LIP, CDP #### [address] [phone] Commercial Real Estate Sales Manager: Frank Otero MDLipid Profileon [id number] in LDL [Mass/Vol]Normal0-130Ohiohealth Berger HospitalComment on above:Result Comment: Calculation not valid for Triglyceride value greater than 400 mg/dL. Direct LDL reflexed LDL Guidelines: <100 Desirable 100-129 Near to/above Desirable 130-159 Borderline >159 Undesirable Direct (measured) LDL and calculated LDL are not interchangeable tests.Performed By: #### TSHX, LIPR, GLYHGB, MISCR, LDLDIR #### [facility] [address] [place] [address] [phone] Commercial Real Estate Sales Manager: EDNA Modiholesterol [Mass/Vol]139 mg/dLNormal<200Ohiohealth Berger HospitalComment on above:Result Comment: Cholesterol Guidelines: <200 Desirable 200-240 Borderline >240 UndesirablePerformed By: #### TSHX, LIPR, GLYHGB, MISCR, LDLDIR #### [address] [phone] Commercial Real Estate Sales Manager: EDNA Modiholesterol in HDL [Mass/Vol]20 mg/dLLow>40Ohiohealth Berger HospitalComment on above:Result Comment: HDL Guidelines: <40 Undesirable 40-59 Borderline >59 DesirablePerformed By: #### TSHX, LIPR, GLYHGB, MISCR, LDLDIR #### [address] [address] Commercial Real Estate Sales Manager: Dodie Modi.total/Cholesterol in HDL [Mass ratio]7.0 {ratio}High<5Ohiohealth Berger HospitalComment on above: Performed By: #### TSHX, LIPR, GLYHGB, MISCR, LDLDIR #### [facility] [address] [place] [address] Commercial Real Estate Sales Manager: Frank Otero MDTriglyceride [Mass/Vol]406 mg/dLHigh<150Ohiohealth Berger HospitalComment on above:Result Comment: Triglyceride Guidelines: <150 Desirable 150-199 Borderline 200-499 High >499 Very high Based on AHA Guidelines for fasting triglyceride, July 2012.Performed By: #### TSHX, LIPR, GLYHGB, MISCR, LDLDIR #### [facility] [address] [place] [address] [phone] Commercial Real Estate Sales Manager: EDNA Modiholesterol in VLDL [Mass/Vol]NOT REPORTEDNormal 1-30Ohiohealth Berger HospitalComment on above:Performed By: #### TSHX, LIPR, GLYHGB, MISCR, LDLDIR #### [facility] [address] [place] [address] Commercial Real Estate Sales Manager: Frank Otero MDLiver Profileon [id number] [Mass/Vol]4.0 g/dLNormal3.5-5.2Mer[facility] Gardner SanitariumComment on above:Performed By: #### ATRAZO #### [facility] [address] [place] [address] Commercial Real Estate Sales Manager: Kodak Akbar MD #### CMPX, EDTOX, LIP, CDP #### [facility] [address] [place] [address] Commercial Real Estate Sales Manager: Frank Otero MDAlbumin/Globulin [Mass ratio]2.1 {ratio}Normal 1.0-2.5Ohiohealth Berger HospitalComment on above:Performed By: #### ATRAZO #### [facility] [address] [place] [address] Commercial Real Estate Sales Manager: Kodak Akbar MD #### CMPX, EDTOX, LIP, CDP #### [facility] [address] [place] [address] Commercial Real Estate Sales Manager: Fernando Modiline Phos39 U/HVdj10-266Zkzui Gardner SanitariumComment on above:Performed By: #### ATRAZO #### [facility] [address] [place] [address] Commercial Real Estate Sales Manager: Kodak Akbar MD #### CMPX, EDTOX, LIP, CDP #### [facility] [address] [place] [address] Commercial Real Estate Sales Manager: Frank Otero MDALT [Catalytic activity/Vol]18 U/LNormal5-41 [facility] Berger HospitalComment on above:Performed By: #### ATRAZO #### [facility] [address] [place] [address] Commercial Real Estate Sales Manager: Kodak Akbar MD #### CMPX, EDTOX, LIP, CDP #### [facility] [address] [place] [address] Commercial Real Estate Sales Manager: Frank Otero MDAST [Catalytic activity/Vol]15 U/LNormal<40Ohio[facility] Berger HospitalComment on above:Performed By: #### ATRAZO #### [facility] [address] [place] [address] Commercial Real Estate Sales Manager: Kodak Akbar MD #### CMPX, EDTOX, LIP, CDP #### [facility] [address] [place] [address] Commercial Real Estate Sales Manager: Frank Otero MDBilirubin Ql (U)0.52 mg/dLNormal0.3-1.2MCollege Medical CenterComment on above:Performed By: #### ATRAZO #### [facility] [address] [place] [address] Commercial Real Estate Sales Manager: Kodak Akbar MD #### CMPX, EDTOX, LIP, CDP #### [address] [address] Commercial Real Estate Sales Manager: Frank Otero MDBilirubin, Indirect0.39 mg/dLNormal0.00-1.00 [facility] Berger HospitalComment on above:Performed By: #### ATRAZO #### [facility] [address] [place] [address] [phone] Commercial Real Estate Sales Manager: Kodak Akbar MD #### CMPX, EDTOX, LIP, CDP #### [address] [address] Commercial Real Estate Sales Manager: Frank Otero MDBilirubin.direct [Mass/Vol]0.13 mg/dLNormal<0.31 [facility] Berger HospitalComment on above:Performed By: #### ATRAZO #### [facility] [address] [place] [address] Commercial Real Estate Sales Manager: Kodak Akbar MD #### CMPX, EDTOX, LIP, CDP #### [facility] [address] [place] [address] Commercial Real Estate Sales Manager: MILAGROS Modirotein [Mass/Vol]5.9 g/dLLow6.4-8.3MCollege Medical CenterComment on above:Performed By: #### ATRAZO #### [facility] [address] [place] [address] Commercial Real Estate Sales Manager: Kodak Akbar MD #### CMPX, EDTOX, LIP, CDP #### [facility] [address] [place] [address] [phone] Commercial Real Estate Sales Manager: Frank Otero MDGlobulin (S) [Mass/Vol]NOT REPORTEDNormal1.5-3.8 [facility] Berger HospitalComment on above:Performed By: #### ATRAZO #### [facility] [address] [place] [address] Commercial Real Estate Sales Manager: Kodak Akbar MD #### CMPX, EDTOX, LIP, CDP #### [address] [phone] Commercial Real Estate Sales Manager: Catherine Modi [facility]itan Medical Centeron [phone] NameUNIVERSITY OF NEW MEXICO HOS[facility] [id number] [facility] Joint HospitalalOhiohealth Berger HospitalComment on above:Performed By: #### ATRAZO #### [facility] [address] [place] [address] [phone] Commercial Real Estate Sales Manager: Kodak Akbar MD #### CMPX, EDTOX, LIP, CDP #### [address] [id number] Commercial Real Estate Sales Manager: Frank Otero MDOtherrosaura [id number] Wfki10KOXCxesw Health- [place], [place] Xjxd24rovxxxnSllvr Health- [place], [place]-R Wunovkvq399 [facility]- [place], [place] Q-T Reerpwow139 [facility]- [place], KYQRS Bjrfhmey245 [facility], KYQTc Calculation ()406 msMKing's Daughters Medical Center [place], [place] Fqsi40akyewruIdkgn Health- [place], KYT Ixmv27qsxleukMxvgzLakeHealth TriPoint Medical [place], KYVentricular [id number] City Hospital, [place] Sergey, Mhpn Incoming Ekg Results From [place] - 07/31/2020 11:14 AM EDT Normal sinus rhythm Normal ECG When compared with ECG of 30-JUL-2020 13:50, No significant change was foundSelect [facility], KYNormal sinus rhythm Normal ECG When compared with ECG of 30-JUL-2020 13:50, No significant change was found [facility], KYCholesterol in VLDL [Mass/Vol]NOT REPORTED1 - 30 mg/dLSelect Medical [facility]ty [facility] [place] [facility], NCCholesterol.total/Cholesterol in HDL [Mass ratio]7 {ratio}High<5 [facility], NCInterpretation and review of laboratory resultsAbTrumbull Regional Medical Center, NCPO Glucose Fingerstickon [id number] [Mass/Vol]239 mg/dL High75 - 110 mg/dLSelect [facility]ty [facility] [place], NCInterpretation and review of laboratory resultsAbTrumbull Regional Medical Center, NCGlucose [Mass/Vol]213 mg/vZYrrd13 - 110 mg/dL [facility], NCInterpretation and review of laboratory resultsAbTrumbull Regional Medical Center, NCGlucose [Mass/Vol]190 mg/zQVyvi41 - 110 mg/dLSelect [facility]ty [facility] [place], [place] Interpretation and review of laboratory resultsAbTrumbull Regional Medical Center, [place] Glucose [Mass/Vol]160 mg/wGDshh41 - 110 mg/dLSelect [facility]ty [facility] [place], NCInterpretation and review of laboratory resultsAbTrumbull Regional Medical Center, NCTS w/reflex to FT4 on [id number] Qn4.89 m[IU]/LNormal0.30-5.00[facility] Comment on above:Performed By: #### TSHX, LIPR, GLYHGB, MISCR, LDLDIR #### [facility] [address] [place] [address] Commercial Real Estate Sales Manager: Frank Otero MDThyroidon 48-70-2211ZLT Qn4.89 m[IU]/LMercWinchester Medical Center- [place], KYBlood Gason 98-49-1677Oxovxj saturation in Ckwzq991 %High60 - 85 % [facility]- [place], KYCBC Auto Differentialon 25-54-2525Jvofpxmio (Bld) [#/Vol] 0.08 10*3/[facility]- [place], KYBasophils/100 WBC (Bld)1 %0 - 2 %[facility] [place], KYDifferential TypeNOT REPORTEDPremier Health [facility]- [place], KYEosinophils (Bld) [#/Vol] 0.07 10*3/[facility]- [place], KYEosinophils/100 WBC (Bld)1 %1 - 4 %[facility]- [place], KYErythrocyte distribution width (RBC) [Ratio]12.6 %11.8 - 14.4 %[facility]- [place], KYHematocrit (Bld) [Volume fraction]53.6 %High40.7 - 50.3 %[facility]- [place], KYHemoglobin (Bld) [Mass/Vol]19.2 g/vHCytu39 - 17 g/dLRiverview Health Institute [place], KYImmature granulocytes (Bld) [#/Vol]0.08 10*3/[facility]- [place], [place] Immature granulocytes (Bld) [#/Vol]1 %Toim3LzjmtRiverview Health Institute [place], KYInterpretation and review of laboratory resultsAbnormSelect Medical Specialty [facility], Inc [place], KYLymphocytes (Bld) [#/Vol]4.09 10*3/[facility]- [place], KYLymphocytes/100 WBC (Bld)43 %25 - 45 % [facility]- [place], KYMCH (RBC) [Entitic mass]31.8 pg25.2 - 33.5 pgPremier Health [facility]- [place], KYMCHC (RBC) [Mass/Vol]35.8 g/aROecy57.4 - 34.8 g/dLPremier Health [facility]- [place], KYMCV (RBC) [Entitic vol]88.7 fL82.6 - 102.9 fLPremier Health [facility]- [place], KYMonocytes (Bld) [#/Vol]0.67 10*3/[facility], KYMonocytes/100 WBC (Bld)7 %2 - 8 %[facility], KYPlatelet mean volume (Bld) [Entitic vol]10.9 fL8.1 - 13.5 fLSelect Medical Specialty Hospital - [place] [facility], KYPlatelets (Bld) [#/Vol]NOT REPORTEDSelect [facility] [place] [facility], KYPlatelets (Bld) [#/Vol]226 10*3/uLSelect [facility] Specialty Hospital [facility], KYRBC (Bld) [#/Vol]6.04 10*6/uLHigh 4.21 - 5.77 m/uLSelect Medical Specialty [facility], NCRBC morphology finding Nom (Bld)NOT REPORTED [facility], NCSegmented neutrophils/100 WBC (Bld)47 %34 - 64 %[facility], DENITASegs Absolute4.47[facility], KYWBC (Bld) [#/Vol]0.0 10*3/uL 0.0 per 100 WBCSelect Medical Specialty Hospital [facility], NCWBC (Bld) [#/Vol]9.5 10*3/[facility], KYWBC MorphologyNOT REPORTEDSelect Medical Specialty [facility], NCCBC with Diffon [id number]. Basophil0.08 k/uLNormal0.00-0.20[facility] HospitalComment on above:Performed By: #### ATRAZO #### [facility] [address] [place] [address] Commercial Real Estate Sales Manager: Kodak Akbar MD #### CMPX, EDTOX, LIP, CDP #### [facility] [address], [place] [phone] Commercial Real Estate Sales Manager: Luis Enrique Modi.Imm.Granulocyte0.08 k/uLNormal0.00-0.30[facility] HospitalComment on above:Performed By: #### ATRAZO #### [facility] [address] [place] [address] Commercial Real Estate Sales Manager: Kodak Akbar MD #### CMPX, EDTOX, LIP, CDP #### [facility] [address] [place] [address] Commercial Real Estate Sales Manager: Luis Enrique Modi.Neutrophil (Seg)4.47 k/uLNormal1.80-8.00 [facility] HospitalComment on above:Performed By: #### ATRAZO #### [facility] [address] [place] [address] Commercial Real Estate Sales Manager: Kodak Akbar MD #### CMPX, EDTOX, LIP, CDP #### [address] [address] Commercial Real Estate Sales Manager: Frank Otero MDBasophils/100 WBC (Bld)1 %Normal0-2MCollege Medical CenterComment on above:Performed By: #### ATRAZO #### [facility] [address] [place] [address] Commercial Real Estate Sales Manager: Kodak Akbar MD #### CMPX, EDTOX, LIP, CDP #### [address] [address] Commercial Real Estate Sales Manager: Frank Otero MDEosinophils (Bld) [#/Vol]0.07 10*3/uLNormal 0.00-0.44[facility] HospitalComment on above:Performed By: #### ATRAZO #### [facility] [address] [place] [address] Commercial Real Estate Sales Manager: Kodak Akbar MD #### CMPX, EDTOX, LIP, CDP #### [facility] [address] [place] [address] Commercial Real Estate Sales Manager: Frank Otero MDEosinophils/100 WBC (Bld)1 %Normal1-4[facility] HospitalComment on above:Performed By: #### ATRAZO #### [facility] [address] [place] [address] Commercial Real Estate Sales Manager: Kodak Akbar MD #### CMPX, EDTOX, LIP, CDP #### [place] [phone] Commercial Real Estate Sales Manager: Frank Otero MDErythrocyte distribution width (RBC) [Ratio]12.6 %Gfywcj90.8-14.4[facility] HospitalComment on above:Performed By: #### ATRAZO #### [facility] [address] [place] [address] Commercial Real Estate Sales Manager: Kodak Akbar MD #### CMPX, EDTOX, LIP, CDP #### [place] [address] Commercial Real Estate Sales Manager: Frank Otero MDHematocrit (Bld) [Volume fraction]53.6 %High 40.7-50.3[facility] Gardner SanitariumComment on above:Performed By: #### ATRAZO #### [facility] [address] [place] [address] Commercial Real Estate Sales Manager: Kodak Akbar MD #### CMPX, EDTOX, LIP, CDP #### [place] [phone] Commercial Real Estate Sales Manager: Frank Otero MDHemoglobin (Bld) [Mass/Vol]19.2 g/dLHigh 13.0-17.0[facility] HospitalComment on above:Performed By: #### ATRAZO #### [facility] [address] [place] [address] Commercial Real Estate Sales Manager: Kodak Akbar MD #### CMPX, EDTOX, LIP, CDP #### [place] [phone] Commercial Real Estate Sales Manager: Frank Otero MDImmature granulocytes (Bld) [#/Vol]1 %Ifgv4DcrmfOhiohealth Berger HospitalComment on above:Performed By: #### ATRAZO #### [facility] [address] [place] [address] Commercial Real Estate Sales Manager: Kodak Akbar MD #### CMPX, EDTOX, LIP, CDP #### [address] [phone] Commercial Real Estate Sales Manager: Frank Otero MDLymphocytes (Bld) [#/Vol]4.09 10*3/uLNormal 1.20-5.20[facility] HospitalComment on above:Performed By: #### ATRAZO #### [facility] [address] [place] [address] Commercial Real Estate Sales Manager: Kodak Akbar MD #### CMPX, EDTOX, LIP, CDP #### [address] [phone] Commercial Real Estate Sales Manager: Frank Otero MDLymphocytes/100 WBC (Bld)43 %Isnqus38-00EldjgOhiohealth Berger HospitalComment on above:Performed By: #### ATRAZO #### [facility] [address] [place] [address] Commercial Real Estate Sales Manager: Kodak Akbar MD #### CMPX, EDTOX, LIP, CDP #### [address] [phone] Commercial Real Estate Sales Manager: BHANU ModiCH (RBC) [Entitic mass]31.8 byVbkjql37.2-33.5 [facility] HospitalComment on above:Performed By: #### ATRAZO #### [facility] [address] [place] [address] Commercial Real Estate Sales Manager: Kodak Akbar MD #### CMPX, EDTOX, LIP, CDP #### [address] [phone] Commercial Real Estate Sales Manager: BHANU ModiCHC (RBC) [Mass/Vol]35.8 g/vXMsve95.4-34.8[facility] HospitalComment on above:Performed By: #### ATRAZO #### [facility] [address] [place] [address] Commercial Real Estate Sales Manager: Kodak Akbar MD #### CMPX, EDTOX, LIP, CDP #### [address] [address] Commercial Real Estate Sales Manager: BHANU ModiCV (RBC) [Entitic vol]88.7 uJIvepbq80.6-102.9 [facility] HospitalComment on above:Performed By: #### ATRAZO #### [facility] [address] [place] [address] Commercial Real Estate Sales Manager: Kodak Akbar MD #### CMPX, EDTOX, LIP, CDP #### [address] [address] Commercial Real Estate Sales Manager: BHANU Modionocytes (Bld) [#/Vol]0.67 10*3/uLNormal 0.10-1.40[facility] HospitalComment on above:Performed By: #### ATRAZO #### [facility] [address] [place] [address] Commercial Real Estate Sales Manager: Kodak Akbar MD #### CMPX, EDTOX, LIP, CDP #### [address] [address] Commercial Real Estate Sales Manager: BHANU Modionocytes/100 WBC (Bld)7 %Normal2-8[facility] HospitalComment on above:Performed By: #### ATRAZO #### [facility] [address] [place] [address] Commercial Real Estate Sales Manager: Kodak Akbar MD #### CMPX, EDTOX, LIP, CDP #### [address] [address] Commercial Real Estate Sales Manager: Frank Madoff, MDNeutrophil (Seg)47 %Mdqjfp87-16PbabqOhiohealth Berger HospitalComment on above:Performed By: #### ATRAZO #### [facility] [address] [place] [address] Commercial Real Estate Sales Manager: Kodak Akbar MD #### CMPX, EDTOX, LIP, CDP #### [address] [address] Commercial Real Estate Sales Manager: Frank Otero MDNRBC Automated0.0 per 100 WBCNormal0.0[facility] HospitalComment on above:Performed By: #### ATRAZO #### [facility] [address] [place] [address] Commercial Real Estate Sales Manager: Kodak Akbar MD #### CMPX, EDTOX, LIP, CDP #### [place] [address] Commercial Real Estate Sales Manager: Viki Modi mean volume (Bld) [Entitic vol]10.9 fL Normal8.1-13.5[facility] HospitalComment on above:Performed By: #### ATRAZO #### [facility] [address] [place] [address] Commercial Real Estate Sales Manager: Kodak Akbar MD #### CMPX, EDTOX, LIP, CDP #### [place] [address] Commercial Real Estate Sales Manager: Irvin Modi (Bld) [#/Vol]226 10*3/cNVkahyj121-895 [facility] HospitalComment on above:Performed By: #### ATRAZO #### [facility] [address] [place] [address] Commercial Real Estate Sales Manager: Kodak Akbar MD #### CMPX, EDTOX, LIP, CDP #### [address] [address] Commercial Real Estate Sales Manager: LACY Modi (Bld) [#/Vol]6.04 10*6/uLHigh4.21-5.77[facility] HospitalComment on above:Performed By: #### ATRAZO #### [facility] [address] [place] [address] Commercial Real Estate Sales Manager: Kodak Akbar MD #### CMPX, EDTOX, LIP, CDP #### [facility] [address] [place] [address] Commercial Real Estate Sales Manager: Frank Otero MDPAN [facility] (Bld) [#/Vol]9.5 10*3/uLNormal4.5-13.5[facility] HospitalComment on above:Performed By: #### ATRAZO #### [facility] [address] [place] [address] Commercial Real Estate Sales Manager: Kodak Akbar MD #### CMPX, EDTOX, LIP, CDP #### [facility] [address] [place] [address] Commercial Real Estate Sales Manager: Kay Modi PerformedNOT REPORTEDNoMorrow County HospitalComment on above:Performed By: #### ATRAZO #### [facility] [address] [place] [address] Commercial Real Estate Sales Manager: Kodak Akbar MD #### CMPX, EDTOX, LIP, CDP #### [facility] [address] [place] [address] Commercial Real Estate Sales Manager: Irvin Modi (Bld) [#/Vol]NOT REPORTEDProMedica Defiance Regional HospitalComment on above:Performed By: #### ATRAZO #### [facility] [address] [place] [address] Commercial Real Estate Sales Manager: Kodak Akbar MD #### CMPX, EDTOX, LIP, CDP #### [facility] [address] [place] [phone] Commercial Real Estate Sales Manager: EVAN Modi morphology finding Nom (Bld)NOT REPORTED [facility] HospitalComment on above:Performed By: #### ATRAZO #### [facility] [address] [place] [address] Commercial Real Estate Sales Manager: Kodak Akbar MD #### CMPX, EDTOX, LIP, CDP #### [facility] [address] [place] [phone] Commercial Real Estate Sales Manager: Frank Otero MDW MorphologyNOT REPORTEDNormalOhiohealth Berger HospitalComment on above:Performed By: #### ATRAZO #### [facility] [address] [place] [address] Commercial Real Estate Sales Manager: Kodak Akbar MD #### CMPX, EDTOX, LIP, CDP #### [facility] [address] [place] [phone] Commercial Real Estate Sales Manager: EDNA Modigunnison valley hospital Metabolic Pr/rfx MGon [id number] [Catalytic activity/Vol]20 U/LNormal<40[facility] HospitalComment on above:Performed By: #### ATRAZO #### [facility] [address] [place] [address] Commercial Real Estate Sales Manager: Koadk Akbar MD #### CMPX, EDTOX, LIP, CDP #### [facility] [address] [place] [phone] Commercial Real Estate Sales Manager: Frank Otero MD(cont.)[facility] Comment on above:Result Comment: Average GFR for <20 years old not available. Chronic Kidney Disease: <60 mL/min/1.73sq m Kidney failure: <15 mL/min/1.73sq m eGFR calculated using average adult body mass. Additional eGFR calculator available at: http://www.BellaDati.com/multiple_crcl_2012.htmPerformed By: #### ATRAZO #### [facility] [address] [place] [address] Commercial Real Estate Sales Manager: Kodak Akbar MD #### CMPX, EDTOX, LIP, CDP #### [address] [address] Commercial Real Estate Sales Manager: Frank Otero MDAlbumin [Mass/Vol]4.8 g/dLNormal3.5-5.2Msumma health barberton campusy Gardner SanitariumComment on above:Performed By: #### ATRAZO #### [facility] [address] [place] [address] Commercial Real Estate Sales Manager: Kodak Akbar MD #### CMPX, EDTOX, LIP, CDP #### [address] [phone] Commercial Real Estate Sales Manager: Frank Otero MDAlbumin/Globulin [Mass ratio]1.9 {ratio}Normal 1.0-2.5[facility] HospitalComment on above:Performed By: #### ATRAZO #### [facility] [address] [place] [address] Commercial Real Estate Sales Manager: Kodak Akbar MD #### CMPKatalina, EDTOX, LIP, CDP #### [address] [phone] Commercial Real Estate Sales Manager: Kaylen Modi Phos49 U/MUwwwop73-005GufkdOhiohealth Berger HospitalComment on above:Performed By: #### ATRAZO #### [facility] [address] [place] [address] Commercial Real Estate Sales Manager: Kodak Akbar MD #### CMPX, EDTOX, LIP, CDP #### [address] [phone] Commercial Real Estate Sales Manager: Frank Otero MDALT [Catalytic activity/Vol]24 U/LNormal5-41 [facility] HospitalComment on above:Performed By: #### ATRAZO #### [facility] [address] [place] [address] Commercial Real Estate Sales Manager: Kodak Akbar MD #### CMPX, EDTOKatalina, LIP, CDP #### [address] [address] Commercial Real Estate Sales Manager: Frank Otero MDAnion gap [Moles/Vol]13 mmol/LNormal9-17[facility] HospitalComment on above:Performed By: #### ATRAZO #### [facility] [address] [place] [address] Commercial Real Estate Sales Manager: Kodak Akbar MD #### CMPX, FELICIA, LIP, CDP #### [address] [phone] Commercial Real Estate Sales Manager: Frank Otero MDBilirubin Ql (U)0.84 mg/dLNormal0.3-1.2MCollege Medical CenterComment on above:Performed By: #### ATRAZO #### [facility] [address] [place] [address] Commercial Real Estate Sales Manager: Kodak Akabr MD #### SEPIDEH, FELICIA, LIP, CDP #### [address] [phone] Commercial Real Estate Sales Manager: EDNA Modialcium [Mass/Vol]9.6 mg/dLNormal8.6-10.4[facility] HospitalComment on above:Performed By: #### ATRAZO #### [facility] [address] [place] [address] Commercial Real Estate Sales Manager: Kodak Akbar MD #### CMPX, EDTOKatalina, LIP, CDP #### [address] [phone] Commercial Real Estate Sales Manager: EDNA Modihloride [Moles/Vol]105 mmol/CNobtzb46-048HzqmpOhiohealth Berger HospitalComment on above:Performed By: #### ATRAZO #### [facility] [address] [place] [address] Commercial Real Estate Sales Manager: Kodak Akbar MD #### CMPX, EDTOX, LIP, CDP #### [address] [address] Commercial Real Estate Sales Manager: EDNA ModiO2 [Moles/Vol]21 mmol/BMnfogf62-42EmhgfOhiohealth Berger HospitalComment on above:Performed By: #### ATRAZO #### [facility] [address] [place] [address] Commercial Real Estate Sales Manager: Kodak Akbar MD #### CMPX, EDTOX, LIP, CDP #### [address] [address] Commercial Real Estate Sales Manager: EDNA Modireatinine [Mass/Vol]0.91 mg/dLNormal0.70-1.20 [facility] HospitalComment on above:Performed By: #### ATRAZO #### [facility] [address] [place] [address] Commercial Real Estate Sales Manager: Kodak Akbar MD #### CMPX, EDTOX, LIP, CDP #### [address] [address] Commercial Real Estate Sales Manager: Frank Otero MDGFR,non AmerPediatric GFR requires additional information. Refer to NKDEP website forNormal>60[facility] HospitalComment on above:Result Comment: calculator.Performed By: #### ATRAZO #### [facility] [address] [place] [address] Commercial Real Estate Sales Manager: Kodak Akbar MD #### CMPX, EDTOX, LIP, CDP #### [address] [phone] Commercial Real Estate Sales Manager: Frank Otero MDGlucose [Mass/Vol]198 mg/kIZnsq32-66Stwrh Gardner SanitariumComment on above:Performed By: #### ATRAZO #### [facility] [address] [place] [address] Commercial Real Estate Sales Manager: Kodak Akbar MD #### CMPX, EDTOX, LIP, CDP #### [address] [address] Commercial Real Estate Sales Manager: MILAGROS Modiotassium [Moles/Vol]3.9 mmol/LNormal3.7-5.3 [facility] HospitalComment on above:Performed By: #### ATRAZO #### [facility] [address] [place] [address] Commercial Real Estate Sales Manager: Kodak Akbar MD #### CMPX, EDTOX, LIP, CDP #### [place] [address] Commercial Real Estate Sales Manager: MILAGROS Modirotein [Mass/Vol]7.3 g/dLNormal6.4-8.3Msumma health barberton campusy Gardner SanitariumComment on above:Performed By: #### ATRAZO #### [facility] [address] [place] [address] Commercial Real Estate Sales Manager: Kodak Akbar MD #### CMPX, EDTOX, LIP, CDP #### [place] [address] Commercial Real Estate Sales Manager: Frank Otero MDSodium [Moles/Vol]139 mmol/TTtbcue690-779JmcaiOhiohealth Berger HospitalComment on above:Performed By: #### ATRAZO #### [facility] [address] [place] [address] Commercial Real Estate Sales Manager: Kodak Akbar MD #### CMPX, EDTOX, LIP, CDP #### [address] [address] Commercial Real Estate Sales Manager: Frank Otero MDUrea nitrogen [Mass/Vol]13 mg/dLNormal6-20[facility] HospitalComment on above:Performed By: #### ATRAZO #### [facility] [address] [place] [address] Commercial Real Estate Sales Manager: Kodak Akbar MD #### CMPX, EDTOX, LIP, CDP #### [facility] [address] [place] [phone] Commercial Real Estate Sales Manager: LELIA Modi/LANEY Alfaro REPORTEDNormal9-20[facility] HospitalComment on above:Performed By: #### ATRAZO #### [facility] [address] [place] [address] Commercial Real Estate Sales Manager: Kodak Akbar MD #### CMPX, EDTOX, LIP, CDP #### [facility] [address] [place] [address] [phone] Commercial Real Estate Sales Manager: RADHA Modi,Karol AmerNOT REPORTEDNormal>60[facility] HospitalComment on above:Performed By: #### ATRAZO #### [facility] [address] [place] [address] Commercial Real Estate Sales Manager: Kodak Akbar MD #### CMPX, EDTOX, LIP, CDP #### [facility] [address] [place] [phone] Commercial Real Estate Sales Manager: WILLIAM Moditaging:NOT REPORTEDNormalMerValley Children’s HospitalComment on above:Performed By: #### ATRAZO #### [facility] [address] [place] [address] Commercial Real Estate Sales Manager: Kodak Akbar MD #### CMPX, EDTOX, LIP, CDP #### [facility] [address] [place] [address] Commercial Real Estate Sales Manager: Santos Modi 04-18-7224Yixpzoy [Mass/Vol]mg/dL<10 mg/dLSelect [facility]ty [facility], KYDrug Scr, Abuse, Uron [id number](s),Ur NegativeNormalNEGMercy Gardner SanitariumComment on above:Result Comment: (Positive cutoff 1000 ng/mL)Performed By: #### BRANDIN #### [facility] CampusDataloop.IO [address] [place] [address] Commercial Real Estate Sales Manager: Frank Otero MDBarbiturate(s),UrNegativeNormalNEGOhiohealth Berger HospitalComment on above:Result Comment: (Positive cutoff 200 ng/mL)Performed By: #### BRANDIN #### [address] [address] Commercial Real Estate Sales Manager: Frank Otero MDBase excess Calc (Bld) [Moles/Vol]NegativeNormal NEGOhiohealth Berger HospitalComment on above:Result Comment: (Positive cutoff 300 ng/mL)Performed By: #### BRANDIN #### [facility] [address] [place] [address] Commercial Real Estate Sales Manager: Frank Otero MDBenzodiazepine(s)NegativeNormalNEGOhiohealth Berger HospitalComment on above:Result Comment: (Positive cutoff 200 ng/mL)Performed By: #### BRANDIN #### [facility] [address] [place] [address] Commercial Real Estate Sales Manager: EDNA Modiannabinoid(s),UrNegativeNormalNEGMerValley Children’s HospitalComment on above:Result Comment: (Positive cutoff 50 ng/mL)Performed By: #### BRANDIN #### [address] [address] Commercial Real Estate Sales Manager: Frank Otero MDInterpretive InfoAssay provides medical screening only. The absence of expected drug(s) and/orNormalMercy Gardner SanitariumComment on above:Result Comment: metabolite(s) may indicate diluted or adulterated urine, limitations of testing or timing of collection. Testing for legal purposes should be confirmed by another method. To request confirmation of test result, please call the lab within 7 days of sample submission.Performed By: #### BRANDIN #### [address] [address] Commercial Real Estate Sales Manager: BHNAU Modiethadone Ql (U)NegativeNormalNEGMerValley Children’s HospitalComment on above:Result Comment: (Positive cutoff 300 ng/mL)Performed By: #### BRANDIN #### [address] [address] Commercial Real Estate Sales Manager: Frank Otero MDOpiate(s), UrNegativeNormalNEGMerValley Children’s HospitalComment on above:Result Comment: (Positive cutoff 300 ng/mL)Performed By: #### BRANDIN #### [address] [address] Commercial Real Estate Sales Manager: Frank Otero MDOxycodone, UrineNegativeNormalNEGOhiohealth Berger HospitalComment on above:Result Comment: (Positive cutoff 100 ng/mL)Performed By: #### BRANDIN #### [address] [address] Commercial Real Estate Sales Manager: MILAGROS Modihencyclidine, UrNegativeNormalNEGMerValley Children’s HospitalComment on above:Result Comment: (Positive cutoff 25 ng/mL)Performed By: #### BRANDIN #### [address] [address] Commercial Real Estate Sales Manager: Frank Otero MDBuprenorphrine, UrNOT REPORTEDNormalNEGMercy Gardner SanitariumComment on above:Performed By: #### BRANDIN #### [address] [address] Commercial Real Estate Sales Manager: BHANU ModiDMA, UrineNOT REPORTEDNormalNEGMerValley Children’s HospitalComment on above:Performed By: #### BRANDIN #### [address] [place] [address] Commercial Real Estate Sales Manager: BHANU Modiethamphetamine, UrNOT REPORTEDNormalNEGOhiohealth Berger HospitalComment on above:Performed By: #### BRANDIN #### [facility] [address] [place] [address] Commercial Real Estate Sales Manager: Frank Otero MDPropoxyphene,UrineNOT REPORTEDNormalNEGMerValley Children’s HospitalComment on above:Performed By: #### BRANDIN #### [facility] [address] [place] [phone] Commercial Real Estate Sales Manager: Frank Otero MDTricyclic antidepressants Screen Ql (U)NOT REPORTEDNormalNEGOhiohealth Berger HospitalComment on above:Performed By: #### BRANDIN #### [address] [address] Commercial Real Estate Sales Manager: Frank Otero MDHematologyon 02-07-5146rNUR Coag (Bld) [Time]NOT REPORTEDSelect [facility], KYHematocrit (Bld) [Volume fraction]56 %High41 - 53 % [facility]- [place], KYHemoglobin (Bld) [Mass/Vol]19.1 g/oDImyy75.5 - 17.5 g/dL [facility]- [place], KYLactic Acid,Whole Blon 60-45-2891Dyzatd Acid,Whole Bl1.0 mmol/LNormal0.7-2.1MCollege Medical CenterComment on above:Performed By: #### LACWB #### [facility] [address] [place] [address] Commercial Real Estate Sales Manager: Frank Otero MDLipaseon 75-33-2076Uwszyw [Catalytic activity/Vol]36 U/IUjpbdf04-17PsgioOhiohealth Berger HospitalComment on above: Performed By: #### ATRAZO #### [facility] [address] [address] Commercial Real Estate Sales Manager: Kodak Akbar MD #### CMPX, EDTOX, LIP, CDP #### [facility] [address] [phone] Commercial Real Estate Sales Manager: BHANU Modietabolic Panelon 35-77-7190Xbtzumo [Mass/Vol] 4.8 g/dL3.5 - 5.2 g/dLMercy Health- [place], KYALP [Catalytic activity/Vol]49 U/L40 - 129 U/LMercy Health- [place], KYALT [Catalytic activity/Vol]24 U/L5 - 41 U/LMercy Health- [place], KYAnion gap [Moles/Vol]13 mmol/L9 - 17 mmol/LMercy Health- [place], KYAST [Catalytic activity/Vol]20 U/L<40[facility]- [place], KYCalcium [Mass/Vol]9.6 mg/dL8.6 - 10.4 mg/dLAshtabula General Hospital Health- [place], KYChloride [Moles/Vol]105 mmol/L98 - 107 mmol/LMercy Health- [place], KYCO2 [Moles/Vol]21 mmol/L20 - 31 mmol/LMercy Health- [place], KYCreatinine [Mass/Vol]0.91 mg/dL0.7 - 1.2 mg/dLPremier Health [facility]- [place], KYGFR/1.73 sq M predicted among non-blacks MDRD (S/P/Bld) [Vol rate/Area]NOT REPORTEDPremier Health [facility]- [place], KYGFR/1.73 sq M predicted among non-blacks MDRD (S/P/Bld) [Vol rate/Area][facility], KYComment on above:Average GFR for <20 years old not available. Chronic Kidney Disease: <60 mL/min/1.73sq m Kidney failure: <15 mL/min/1.73sq m eGFR calculated using average adult body mass. Additional eGFR calculator available at: http://www.BellaDati.[employer]olicious/multiple_crcl_2011.htm Glucose [Mass/Vol]198 mg/oBAzdd70 - 99 mg/dLAshtabula General Hospital Health- [place], KYPotassium [Moles/Vol]3.9 mmol/L3.7 - 5.3 mmol/LMercy Health- [place], KYProtein [Mass/Vol]7.3 g/dL6.4 - 8.3 g/dLSelect [facility] Specialty [facility] [place] [facility], KYSodium [Moles/Vol]139 mmol/L135 - 144 mmol/LMLima City Hospital, KYUrea nitrogen [Mass/Vol]13 mg/dL6 - 20 mg/dLSelect Medical Specialty [facility] [place] [facility], KYAnion gap [Moles/Vol]10 mmol/L7 - 16 mmol/LMLima City Hospital, [place] Chloride [Moles/Vol]109 mmol/LHigh98 - 107 mmol/LMLima City Hospital, KYCreatinine [Mass/Vol]1.11 mg/dL0.51 - 1.19 mg/dLSelect [facility] Specialty [facility] [place] [facility], KYGFR/1.73 sq M predicted among non-blacks MDRD (S/P/Bld) [Vol rate/Area][facility], KYComment on above:Average GFR for <20 years old not available. Chronic Kidney Disease: <60 mL/min/1.73sq m Kidney failure: <15 mL/min/1.73sq m eGFR calculated using average adult body mass. Additional eGFR calculator available at: http://www.[employer]/multiple_crcl_2012.htm GFR/1.73 sq M predicted among non-blacks MDRD (S/P/Bld) [Vol rate/Area] mL/min/{1.73_m2}>60 mL/minSelect Medical Specialty Hospital - [place] [facility], KYGlucose [Mass/Vol]220 mg/wZAdeq34 - 100 mg/dLSelect Medical Specialty Hospital [facility] [place] [facility], KYPotassium [Moles/Vol]3.8 mmol/L3.5 - 4.5 mmol/L [facility], KYSodium [Moles/Vol]141 mmol/L138 - 146 mmol/LMLima City Hospital, KYOtheron 05-31-6650Ghqmiwzuiwv Screen, UrNegativeNEGATIVESelect Medical Specialty [facility] [place] [facility], NCComment on above: (Positive cutoff 1000 ng/mL) Barbiturate Screen, UrNegativeNEGATIVESelect Medical Specialty [facility] [place] [facility], KYComment on above: (Positive cutoff 200 ng/mL) Benzodiazepine Screen, UrineNegativeNEGATIVESelect Medical Specialty Hospital [facility] [place] [facility], KYComment on above: (Positive cutoff 200 ng/mL) [...] urine, limitations of testing or timing of collection.[facility]- [place], DENITAComted on above:Testing for legal purposes should be confirmed by another method. To request confirmation of test result, please call the lab within 7 days of sample submission. Tricyclic Antidepressants, UrineNOT REPORTEDNEGATIVEMercy Health- [place], KYLactic Acid, Whole Blood1.0 mmol/L0.7 - 2.1 mmol/LMercy tydy- [place], KYNo acute findings [facility]- [place], DENITAEXAMINATION: ONE XRAY VIEW OF THE CHEST 07/30/2020 2:21 pm COMPARISON: None. HISTORY: ORDERING SYSTEM PROVIDED HISTORY: durg overdose TECHNOLOGIST PROVIDED HISTORY: durg overdose FINDINGS: Cardiac silhouette is enlarged. Lungs appear clear. No acute abnormality.Zairge OHDelano Mhpn Incoming Radiant Results From [employer]/Gotcha Ninjas - 07/30/2020 2:26 PM EDT EXAMINATION: ONE [...] Health- [place], KYAllen TestNOT REPORTEDMercy Health- [place], LHLLH2SPX REPORTEDMercy Health- [place], KYGFR Non->60>60 mL/minMercy Health- [place], KYHCO3, Tvinfe85.3 mmol/L22 - 29 mmol/L [facility]- [place], [...] REPORTEDmm HgMercy Health- [place], KYPOC pH TempNOT REPORTEDSelect [facility], KYPOC pO2 TempNOT REPORTEDmm HgSelect Medical Specialty Hospital [facility] [place] [facility], [place] Positive Base Excess, Btc5UcphfSelect Medical Specialty Hospital - [place] [facility], KYSample SiteNOT REPORTEDSelect [facility] [place] [facility], NCTotal CO2, Ydcdpj09 mmol/L23 - 30 mmol/LMLima City Hospital, NCPO Glucose Fingerstickon 75-41-1382Qrnkjfm [Mass/Vol]148 mg/gWJwby55 - 110 mg/dL [facility], NCInterpretation and review of laboratory resultsAbnoCleveland Clinic Hillcrest Hospital, NCGlucose [Mass/Vol]190 mg/hRUomz56 - 110 mg/dLSelect Medical Specialty Hospital [facility] [place] [facility], [place] Interpretation and review of laboratory resultsAbnormLakeHealth Beachwood Medical Center, NCTox Scr, Bld, EDon 09-27-6285Hijbabwuvxwxw [Mass/Vol]<9Bju82-94FjiclOhiohealth Berger HospitalComment on above:Performed By: #### ATRAZO #### [facility] [address] [place] [address] Commercial Real Estate Sales Manager: Kodak Akbar MD #### CMPX, ADRIÁNX, LIP, CDP #### [facility] [address] [place] [address] Commercial Real Estate Sales Manager: Amaris Modilaleah<6Tcy4-07FenjnOhiohealth Berger HospitalComment on above:Performed By: #### ATRAZO #### [facility] [address] [place] [address] Commercial Real Estate Sales Manager: Kodak Akbar MD #### CMPX, EDTOX, LIP, CDP #### [facility] [address] [place] [address] Commercial Real Estate Sales Manager: Frank Otero MDEthanol [Mass/Vol]mg/dLNormal<10Ohiohealth Berger HospitalComment on above:Performed By: #### ATRAZO #### [facility] [address] [place] [address] Commercial Real Estate Sales Manager: Kodak Akbar MD #### CMPX, EDTOX, LIP, CDP #### [facility] [address] [place] [address] Commercial Real Estate Sales Manager: Frank Otreo MDEthanol percent<0.010Normal<0.010Ohiohealth Berger HospitalComment on above:Performed By: #### ATRAZO #### [facility] [address] [place] [address] Commercial Real Estate Sales Manager: Kodak Akbar MD #### CMPX, EDTOX, LIP, CDP #### [facility] [address] [place] [phone] Commercial Real Estate Sales Manager: Frank Otero MDToxic Tricyclic Sc,BlNegativeNormalNEGOhiohealth Berger HospitalComment on above:Performed By: #### ATRAZO #### [facility] [address] [place] [phone] Commercial Real Estate Sales Manager: Kodak Akbar MD #### CMPX, EDTOX, LIP, CDP #### [facility] [address] [place] [phone] Commercial Real Estate Sales Manager: CICI Modi CHEST PORTABLEon [id number] CHEST PORTABLE EXAMINATION: ONE XRAY VIEW OF THE CHEST 07/30/2020 2:21 pm COMPARISON: None. HISTORY: ORDERING SYSTEM PROVIDED HISTORY: durg overdose TECHNOLOGIST PROVIDED HISTORY: durg overdose FINDINGS: Cardiac silhouette is enlarged. Lungs appear clear. No acute abnormality. IMPRESSION: No acute findings Interpreted by: Myranda Al MD Signed by: Myranda Al MD 07/30/20 Final resultNormalMerValley Children’s HospitalACETAMINOPHENon 02-26-2020 Acetaminophen [Mass/Vol]< 5.6Cdqeoq6.0-20.0SaSt. Luke's Health – Baylor St. Luke's Medical CenterComment on above:Performed By: #### CBCWD, BMP, ACTM, ASAT, ETOHS, ANION, OSMOL, TSH3 #### [facility] [address] [place], [place] [address]ASVZB GAPon 81-96-7860Dzyav gap [Moles/Vol]11.0 mmol/LNormal 8.0-16.0Dallas Medical CenterComment on above:Result Comment: ANION GAP = Sodium -(Chloride + CO2)Performed By: #### CBCWD, BMP, ACTM, ASAT, ETOHS, ANION, OSMOL, TSH3 #### [facility] [address] [place] [address]Yjrcoovpiekyd levelon 66-82-6805Rtultxkcjtmlk [Mass/Vol]< 5.00 - 20 ug/mLSelect Medical Specialty [facility], KYComment on above:Performed at [facility] [address] [place] [address]Nelno Gapon 92-78-7229Jvojv gap [Moles/Vol]11.0 mmol/L8 - 16 meq/LMLima City Hospital, KYComment on above:ANION GAP = Sodium - (Chloride + CO2) Performed at [facility] [address] [place] [address] BASIC METABOL PANELon 62-78-2117Jnkitpt [Mass/Vol]9.5 mg/dLNormal8.5-10.5SEastland Memorial HospitalComment on above:Performed By: #### CBCWD, BMP, ACTM, ASAT, ETOHS, ANION, OSMOL, TSH3 #### [facility] [address] [address]Cmguivis [Moles/Vol]100 mmol/XRnnshl69-635NjwkeDallas Medical CenterComment on above:Performed By: #### CBCWD, BMP, ACTM, ASAT, ETOHS, ANION, OSMOL, TSH3 #### [facility] [address] [place] [address]PS9 [Moles/Vol]26 mmol/ORmroic44-82HrluwDallas Medical Center Comment on above:Performed By: #### CBCWD, BMP, ACTM, ASAT, ETOHS, ANION, OSMOL, TSH3 #### [facility] [address] [place] [address]Eexughiije [Mass/Vol]0.8 mg/dLNormal0.4-1.2SEastland Memorial HospitalComment on above:Performed By: #### CBCWD, BMP, ACTM, ASAT, ETOHS, ANION, OSMOL, TSH3 #### [address] [address]Apsjbvv [Mass/Vol]164 mg/eYFpay79-973DfomwDallas Medical Center Comment on above:Performed By: #### CBCWD, BMP, ACTM, ASAT, ETOHS, ANION, OSMOL, TSH3 #### [address] [address]Leuryeynu [Moles/Vol]5.0 mmol/LNormal3.5-5.2SEastland Memorial HospitalComment on above:Result Comment: Very slight hemolysis indicated.Performed By: #### CBCWD, BMP, ACTM, ASAT, ETOHS, ANION, OSMOL, TSH3 #### [address] [address]Mzgrcy [Moles/Vol]137 mmol/MUlynyb752-708DzeemDallas Medical CenterComment on above:Performed By: #### CBCWD, BMP, ACTM, ASAT, ETOHS, ANION, OSMOL, TSH3 #### [facility] [address] [place] [address]Xqiw nitrogen [Mass/Vol]17 mg/dLNormal7-22Dallas Medical CenterComment on above:Performed By: #### CBCWD, BMP, ACTM, ASAT, ETOHS, ANION, OSMOL, TSH3 #### [address] [address]Hguap Metabolic Panelon 60-37-3404Xgazpbu [Mass/Vol]9.5 mg/dL8.5 - 10.5 mg/dLSelect Medical Specialty Hospital [facility], KYComment on above:Performed at [facility] [address] [place] [address]Xezoryim [Moles/Vol]100 mmol/L98 - 111 meq/L [facility], KYCO2 [Moles/Vol]26 mmol/L23 - 33 meq/LMLima City Hospital, [place] Creatinine [Mass/Vol]0.8 mg/dL0.4 - 1.2 mg/dLSelect Medical Specialty Hospital [facility], KYGlucose [Mass/Vol]164 mg/bOPhie00 - 108 mg/dLSelect Medical Specialty Hospital [facility], KYPotassium [Moles/Vol] 5.0 mmol/L3.5 - 5.2 meq/[facility], KYComment on above:Very slight hemolysis indicated.Sodium [Moles/Vol]137 mmol/L135 - 145 meq/[facility], KYUrea nitrogen [Mass/Vol]17 mg/dL7 - 22 mg/dLSelect Medical Specialty Hospital [facility], KYCALCULATED OSMOLALITYon 64-39-0418Dwswwrdovm [Osmolality]279.0 mOsmol/lwUliace474.0-300. Dallas Medical CenterComment on above:Performed By: #### CBCWD, BMP, ACTM, ASAT, ETOHS, ANION, OSMOL, TSH3 #### [address] [address]JOR WITH DIFFERENTIALon 58-35-0549MQM IMMATURE GRANS (IG)0.09 thou/ct6Gnyz7.00-0.07Dallas Medical CenterComment on above:Performed By: #### CBCWD, BMP, ACTM, ASAT, ETOHS, ANION, OSMOL, TSH3 #### [address] [address]QEQ NEUTROPHILS5.8 thou/nj4Adgicq4.8-7.7Dallas Medical CenterComment on above:Performed By: #### CBCWD, BMP, ACTM, ASAT, ETOHS, ANION, OSMOL, TSH3 #### [facility] [address] [place] [address]Vsqzlnjam (Bld) [#/Vol]0.1 thou/kc1Voioan2.0-0.1SEastland Memorial HospitalComment on above:Performed By: #### CBCWD, BMP, ACTM, ASAT, ETOHS, ANION, OSMOL, TSH3 #### [address] [address]Wpheaefda/100 WBC (Bld)0.7 %NormalDallas Medical Center Comment on above:Performed By: #### CBCWD, BMP, ACTM, ASAT, ETOHS, ANION, OSMOL, TSH3 #### [address] [address]Fjuadpphhfx (Bld) [#/Vol]0.1 thou/ae4Adhwwp2.0-0.4SEastland Memorial HospitalComment on above:Performed By: #### CBCWD, BMP, ACTM, ASAT, ETOHS, ANION, OSMOL, TSH3 #### [address] [address]Vzlgzogkdkx/100 WBC (Bld)1.1 %[facility] Comment on above:Performed By: #### CBCWD, BMP, ACTM, ASAT, ETOHS, ANION, OSMOL, TSH3 #### [address] [address]Fwpixoyvfjb distribution width (RBC) [Ratio]12.5 %Tdmcyu14.5-14.5 Dallas Medical CenterComment on above:Performed By: #### CBCWD, BMP, ACTM, ASAT, ETOHS, ANION, OSMOL, TSH3 #### [address] [address]Ixtiqesfug (Bld) [Volume fraction]51.3 %Frxhxw27.0-52.0Dallas Medical CenterComment on above:Performed By: #### CBCWD, BMP, ACTM, ASAT, ETOHS, ANION, OSMOL, TSH3 #### [address] [address]Nfazukmvjf (Bld) [Mass/Vol]18.5 gm/qgCxqq74.0-18.0D[facility] Medical CenterComment on above:Performed By: #### CBCWD, BMP, ACTM, ASAT, ETOHS, ANION, OSMOL, TSH3 #### [address] [address]RZXGAOJV GRANS (IG)1.0 %[facility] Medical CenterComment on above:Performed By: #### CBCWD, BMP, ACTM, ASAT, ETOHS, ANION, OSMOL, TSH3 #### [address] [address]Rumgojardrk (Bld) [#/Vol]2.6 thou/te8Cdgrux8.0-4.8Dallas Medical CenterComment on above:Performed By: #### CBCWD, BMP, ACTM, ASAT, ETOHS, ANION, OSMOL, TSH3 #### [address] [address]Madnjmeembg/100 WBC (Bld)29.1 %[facility] Comment on above:Performed By: #### CBCWD, BMP, ACTM, ASAT, ETOHS, ANION, OSMOL, TSH3 #### [address] [address]CMT (RBC) [Entitic mass]32.2 qfBssvbb22.0-33.0D[facility] Medical CenterComment on above:Performed By: #### CBCWD, BMP, ACTM, ASAT, ETOHS, ANION, OSMOL, TSH3 #### [address] [address]BMRZ (RBC) [Mass/Vol]36.1 gm/quEghi67.2-35.5SEastland Memorial HospitalComment on above:Performed By: #### CBCWD, BMP, ACTM, ASAT, ETOHS, ANION, OSMOL, TSH3 #### [address] [address]CXJ (RBC) [Entitic vol]89.4 wBCixyug47.0-94.0D[facility] Medical CenterComment on above:Performed By: #### CBCWD, BMP, ACTM, ASAT, ETOHS, ANION, OSMOL, TSH3 #### [address] [address]Zuzqgytzk (Bld) [#/Vol]0.4 thou/cg0Fcjcpi4.4-1.3SEastland Memorial HospitalComment on above:Performed By: #### CBCWD, BMP, ACTM, ASAT, ETOHS, ANION, OSMOL, TSH3 #### [address] [address]Eetnwcqfo/100 WBC (Bld)4.9 %[facility] Comment on above:Performed By: #### CBCWD, BMP, ACTM, ASAT, ETOHS, ANION, OSMOL, TSH3 #### [address] [address]Nbsansqoiiz/100 WBC (Bld)63.2 %[facility] Comment on above:Performed By: #### CBCWD, BMP, ACTM, ASAT, ETOHS, ANION, OSMOL, TSH3 #### [address] [address]Whejhvfnk RBC/100 WBC (Bld) [Ratio]0 /100 wbcNormalSEastland Memorial HospitalComment on above:Performed By: #### CBCWD, BMP, ACTM, ASAT, ETOHS, ANION, OSMOL, TSH3 #### [address] [address]Sandthcd mean volume (Bld) [Entitic vol]9.8 fLNormal9.4-12.4SEastland Memorial HospitalComment on above:Performed By: #### CBCWD, BMP, ACTM, ASAT, ETOHS, ANION, OSMOL, TSH3 #### [address] [address]Ppqvwhyqn (Bld) [#/Vol]240 thou/yb8Qujvif495-523TerjkDallas Medical CenterComment on above:Performed By: #### CBCWD, BMP, ACTM, ASAT, ETOHS, ANION, OSMOL, TSH3 #### [address] [address]RZD (Bld) [#/Vol]5.74 mill/dq8Zblfyg8.70-6.10D[facility] Medical CenterComment on above:Performed By: #### CBCWD, BMP, ACTM, ASAT, ETOHS, ANION, OSMOL, TSH3 #### [address] [address]OUF-VA33.7 lOViphaf77.0-45.0D[facility] Medical CenterComment on above:Performed By: #### CBCWD, BMP, ACTM, ASAT, ETOHS, ANION, OSMOL, TSH3 #### [facility] [address] [place], [place] [address]PEL (Bld) [#/Vol]9.1 thou/yf5Cdsfem6.8-10.8D[facility] Medical CenterComment on above:Performed By: #### CBCWD, BMP, ACTM, ASAT, ETOHS, ANION, OSMOL, TSH3 #### [facility] [address] [place], [place] [address]LYK auto differentialon 13-77-2915Ltupfdrjp (Bld) [#/Vol]0.1 10*3/[facility]- [place], KYBasophils/100 WBC (Bld)0.7 %[facility]- [place], [place] Eosinophils (Bld) [#/Vol]0.1 10*3/uLAshtabula General Hospital [facility]- [place], KYEosinophils/100 WBC (Bld)1.1 %[facility]- [place], KYErythrocyte distribution width (RBC) [Ratio]12.5 % 11.5 - 14.5 %[facility]- [place], KYHematocrit (Bld) [Volume fraction]51.3 %42 - 52 %[facility]- [place], KYHemoglobin (Bld) [Mass/Vol]18.5 g/dLHighPremier Health [facility]- [place], KYImmature Grans (Abs)0.09HighPremier Health [facility]- [place], KYImmature granulocytes (Bld) [#/Vol]1 %[facility]- [place], KYInterpretation and review of laboratory results AbnormalPremier Health [facility]- [place], KYLymphocytes (Bld) [#/Vol]2.6 10*3/uLAshtabula [facility] Hospital [facility]- [place], KYLymphocytes/100 WBC (Bld)29.1 %[facility]- [place], KYMCH (RBC) [Entitic mass]32.2 pg26 - 33 pgAshtabula General Hospital Health- [place], KYMCHC (RBC) [Mass/Vol]36.1 g/dLHigh [facility]- [place], KYMCV (RBC) [Entitic vol]89.4 fL80 - 94 fLAshtabula General Hospital [facility]- [place], [place] Monocytes (Bld) [#/Vol]0.4 10*3/[facility], KYMonocytes/100 WBC (Bld)4.9 %[facility], KYNucleated RBC/100 WBC (Bld) [Ratio]0 %/100 wbcSelect Medical Specialty Hospital - [facility], KYComment on above:Performed at [facility] [address] [place], [place] [address]Xagwsise mean volume (Bld) [Entitic vol]9.8 fL9.4 - 12.4 fL [facility], KYPlatelets (Bld) [#/Vol]240 10*3/[facility], KYRBC (Bld) [#/Vol]5.74 10*6/[facility], KYRDW-SD40.7 fL35 - 45 fLSelect Medical Specialty Hospital - [facility], KYSegmented neutrophils/100 WBC (Bld)63.2 %[facility], KYSegs Absolute5.8[facility], KYWBC (Bld) [#/Vol]9.1 10*3/[facility], [place] DRUG ABUSE SCREENon 48-87-9662NNBSNSSSAJZ/METHAMPHNegativeNormalNEGATIVESaint Eastern Idaho Regional Medical CenterComment on above:Performed By: #### UR_CS #### [facility] [address] [place] [address]MUFLZWTBMOARmwypqnfCuhcaqQEQFEKEPYuaue [facility] Comment on above:Performed By: #### UR_CS #### [facility] [address] [place] [address]Qocfggnvtkwtddq Ql (U)NegativeNormalNEGATIVESaint Eastern Idaho Regional Medical CenterComment on above:Performed By: #### UR_CS #### [facility] [address] [place] [address]Aqvzrfqrwamk Screen Ql (U)NegativeNormalNEGATIVESaint Eastern [place] Regional Medical CenterComment on above:Performed By: #### UR_CS #### [facility] [address] [place] [address]YBHWWLY METABOLITENegativeNormalNEGATIVESaint Eastern [place] Regional Medical CenterComment on above:Performed By: #### UR_CS #### [facility] [address] [place] [address]Lwuemph Ql (U)NegativeNormalNEGATIVESaint [facility] Comment on above:Performed By: #### UR_CS #### [address] [address]TTAOFKJRQRavayiqmSxqdpvZVTMHXFZYnstj Rita's Medical CenterComment on above:Performed By: #### UR_CS #### [facility] [address] [place] [address]Xwrsljndowsah Ql (U)NegativeNormalNEGATIVESEastland Memorial HospitalComment on above:Result Comment: A Negative result [...] medical use only.Performed By: #### UR_CS #### [address] [address]IGIPE ALCOHOL BLOODon 34-22-1318YFAHL ALCOHOL BLOOD< 0.01Normal 0.00Saint [facility] Regional Medical CenterComment on above:Performed By: #### CBCWD, BMP, ACTM, ASAT, ETOHS, ANION, OSMOL, TSH3 #### [facility] [address] [place] [address]Ovkbwkzyz 30-23-4499UZTQJ ALCOHOL, SERUM< 0.010.00 %[facility], KYComment on above:Performed at [facility] [address] [place] [address]Ukrzvplnqpvp 95-77-0128Eiskxeamis Tscb047.0[facility], [place] Comment on above:Performed at [facility] [address] [place] [address]Kuvxewz 69-98-7055Jdxwijtkvilsvd and review of laboratory resultsAbnormal [facility], KYSALICYLATEon 93-22-8371SEOJTOMPHH< 0.3Low2.0-10.0SaSt. Luke's Health – Baylor St. Luke's Medical CenterComment on above:Performed By: #### CBCWD, BMP, ACTM, ASAT, ETOHS, ANION, OSMOL, TSH3 #### [facility] [address] [place] [address]Pbidcesnwr Levelon 25-58-5233Fqexeuuivd, Serum< 0.3Low2 - 10 mg/dL [place], KYComment on above:Performed at [facility] [address] [place] [address]WNY THIRD GENERATIONon 65-27-1136MJK THIRD GENERATION 5.000 uIU/mLHigh0.400-4.20SEastland Memorial HospitalComment on above:Performed By: #### CBCWD, BMP, ACTM, ASAT, ETOHS, ANION, OSMOL, TSH3 #### [facility] [address] [address]WNB without Reflexon [id number] and review of laboratory resultsJackson Memorial Hospital Qn5.000 m[IU]/[place], KYComment on above:Performed at [facility] [address] [place] [address]IFYIQ REFLEX C + Son 91-45-9535Kwmnxzngh Ql (U)NegativeNormal NEGATIVESEastland Memorial HospitalComment on above:Performed By: #### UR_CS #### [facility] [address] [address]MAIFTIsvncffiKgxwlkBCZGOCTWYhiie Rita's Medical CenterComment on above:Performed By: #### UR_CS #### [facility] [address] [place] [address]Lalatvwwq (U)CLEARNormalCLEAR-SL CSaSt. Luke's Health – [facility]lor [facility] Comment on above:Performed By: #### UR_CS #### [facility] [address] [place] [address]Legin (U)YELLOWNormalSTRAW-YELLSaSt. Luke's Health – Baylor St. Luke's Medical CenterComment on above:Performed By: #### UR_CS #### [facility] [address] [place] [address] 79475Pbwpatm [Mass/Vol]NegativeNormalNEGATIVESEastland Memorial HospitalComment on above:Performed By: #### UR_CS #### [facility] [address] [place] [address] 43746Wgzkfwz Ql (U)NegativeNormalNEGATIVESEastland Memorial Hospital Comment on above:Performed By: #### UR_CS #### [facility] [address] [place] [address] 71578Zdzoeas Ql (U)NegativeNormalNEGATIVESEastland Memorial Hospital Comment on above:Performed By: #### UR_CS #### [facility] [address] [place] [address] 92389hV (Bld)5.4Pthyfs3.0 - 9.0[facility] CenterComment on above:Performed By: #### UR_CS #### [address] [address]Ejuwhqf (U) [Mass/Vol]NegativeNormalNEGATIVESEastland Memorial HospitalComment on above:Performed By: #### UR_CS #### [address] [address]Tmsjxuwt gravity (U) [Rel density]1.913Urmzvt1.002-1.03[facility] Medical CenterComment on above:Performed By: #### UR_CS #### [address] [address]Biyrjwfvxkkw Qn (U)1.0 eu/dlNormal0.0 - 1.0[facility] Medical CenterComment on above:Performed By: #### UR_CS #### [address] [address]GLK (Bld) [#/Vol]NegativeNormalNEGATIVESEastland Memorial Hospital Comment on above:Performed By: #### UR_CS #### [address] [address]Ymbulgezkc Reflex to Cultureon [phone] UrineNegative NEGATIVEMercy Health- [place], [place]Blood, UrineNegativeNEGATIVEMercy Health- [place], [place] Character, UrineCLEARCLEAR-SL CMercy Health- [place], KYComment on above:Performed at [facility] [address], [place] [address]Azyaz, UAYELLOWSTRAW-YELL [facility] [place], KYGlucose, UrNegativeNEGATIVE mg/dlMercy Health- [place], KYKetones Ql (U)NegativeNEGATIVEMercy Health- [place], KYLeukocyte esterase Test strip Ql (U) NegativeNEGATIVEMercy Health- [place], KYNitrite, UrineNegativeNEGATIVEMercy Health- [place], KYpH, UA5.5[facility]- [place], KYProtein (U) [Mass/Vol]NegativeNEGATIVEMercy Health- [place], KYSpecific [place], Urine1.026[facility]- [place], KYUrobilinogen, Urine1.0[facility]- [place], KYUrine Drug Screenon 02-26-2020 AMPHETAMINE+METHAMPHETAMINE URINE SCREENNegativeNEGATIVEMerNew Wayside Emergency Hospital- [place], [place] Barbiturate Quant, UrNegativeNEGATIVEMercy Health- [...] are for medical use only. Performed at [facility] [address] [place] [address] Otheron [id number] left knee This report has been created using voice recognition software. It may contain minor errors which are inherent in voice recognition technology. Final report electronically signed by Dr. Alexander Vega on 02/15/2020 2:22 PMSelect [facility], KYPROCEDURE: XR KNEE LEFT (3 VIEWS) CLINICAL INFORMATION: Left knee pain, unspecified chronicity . COMPARISON: No prior study. TECHNIQUE: Standing AP and lateral projections a sunrise patella projection. FINDINGS: No acute fracture or dislocation. Joint space is maintained. No joint effusion. No softtissue normality.[facility], KYEdi, Wcoh Incoming Radiant Results From [employer] - 02/15/2020 2:24 PM EDT PROCEDURE: XR [...] by Dr. Alexander Vega on 02/15/2020 2:22 [facility], KYXR KNEE LEFT (3 VIEWS)on [id number] KNEE LEFT (3 VIEWS) PROCEDURE: XR KNEE [...] on 02/15/2020 2:22 PM Interpreted by: Alexander Veag MD Signed by: Alexander Vega MD 02/15/20 Final resultNormalSEastland Memorial Hospital Vital Signs Date TimeVital SignValuePerforming NwimbiydvJffpbcap10-30-6526 07:30-0400Body yherfgjurfr28.6 [degF]PHYSICIAN NO [facility] 04-05-2025 07:30-0400Diastolic blood lnabxcnj34 mm[Hg]PHYSICIAN NO [facility]06-11-2025 07:30-0400Heart rate83 /minPHYSICIAN [facility]06-11-2025 07:30-0400Respiratory rate 20 /minPHYSICIAN NO [facility]06-11-2025 07:30-0400 SaO2% (BldA) [Mass fraction]98 %PHYSICIAN NO [facility]06-11-2025 07:30-0400Systolic blood dwqihuno518 mm[Hg]PHYSICIAN NO [facility]06-09-2025 14:38-0400Body .72 cm PHYSICIAN NO [facility]06-09-2025 09:00-0400Body nwamem623 kgPHYSICIAN NO [facility]06-06-2025 22:18-0400Body iujjaxbmnrp62.4 [degF]Demetria Cifuentes [employer] Work Phone: [phone]06-06-2025 22:18-0400 Diastolic blood iiswjpgw47 mm[Hg]Demetria Cifuentes [employer] Work Phone: [phone]06-06-2025 22:18-0400 Heart pmly250 /Toni Caseacher [employer] Work Phone: [phone]21[facility]06-06-2025 22:18-0400 Respiratory rate16 /Toni Caseacher [employer] Work Phone: [phone]06-06-2025 22:18-0400 SaO2% (BldA) [Mass fraction]97 %Demetria Cifuentes [employer] Work Phone: [phone]06-06-2025 22:18-0400 Systolic blood kgxggyej997 mm[Hg]Demetria Cifuentes [employer] Work Phone: [phone]([phone] [place], [place] 6814706-06-2025 13:28-0400 Body hytgfk506.72 cmDemetria Cifuentes [employer] Work Phone: [phone] [place], [place] 6814706-06-2025 13:28-0400 Body .27 kgDemetria Orlandor [employer] Work Phone: [phone] [place], [place] 9026004-25-2025 21:06-0400 Body thsdbe028.72 cmDemetria Caseacher [employer] Work Phone: [phone] [place], [place] 9026004-25-2025 21:06-0400 Body rexlzcbxvbt04.6 [degF]Demetria Gunterfranciaacher [employer] Work Phone: [phone] [place], [place] 9026004-25-2025 21:06-0400 Body .1 kgDemetria Caseacher [employer] Work Phone: [phone] [place], [place] 9026004-25-2025 21:06-0400 Diastolic blood jtnnovao01 mm[Hg]Demetria Guntermesfinr [employer] Work Phone: [phone] [place], [place] 9026004-25-2025 21:06-0400 Heart rate90 /Toni Caseacher [employer] Work Phone: [phone] [place], [place] 9026004-25-2025 21:06-0400 Respiratory rate16 /Toni Caseacher [employer] Work Phone: [phone] [place], [place] 9026004-25-2025 21:06-0400 SaO2% (BldA) [Mass fraction]98 %Demetria Gunterabelino [employer] Work Phone: [phone] [place], [place] 9026004-25-2025 21:06-0400 Systolic blood nbsyfplm201 mm[Hg]Demetria Esau [employer] Work Phone: [phone] [place], [place] 9026003-17-2025 08:24-0400 Body tbadtr200.45 kgDemetria Caseacher [employer] Work Phone: [phone] [place], [place] 9026003-17-2025 07:30-0400 Body .3 [degF]Demetria Gunterfranciaacher [employer] Work Phone: [phone] [place], [place] 9026003-17-2025 07:30-0400 Diastolic blood mm[Hg]Demetria Gunterabelino [employer] Work Phone: [facility]03-17-2025 07:30-0400 Heart rate77 /Toni Cifuentes [employer] Work Phone: [phone]03-17-2025 07:30-0400 Respiratory rate16 /Toni Cifuentes [employer] Work Phone: [phone]03-17-2025 07:30-0400 SaO2% (BldA) [Mass fraction]99 %Demetria Esau [employer] Work Phone: [phone]03-17-2025 07:30-0400 Systolic blood phdzikyf421 mm[Hg]Demetria Gunterabelino [employer] Work Phone: [phone]03-14-2025 16:04-0400 Body fnxyuq723.72 cmDemetria Cifuentes [employer] Work Phone: [phone]03-13-2025 17:17-0400 Diastolic blood akjaidiq30 mm[Hg]PHYSICIAN NO [facility]03-13-2025 17:17-0400Heart vvbw949 /minPHYSICIAN [facility]03-13-2025 17:17-0400Respiratory rate16 /minPHYSICIAN [facility]03-13-2025 17:17-8990KxY7% (BldA) [Mass fraction]96 %PHYSICIAN [facility]03-13-2025 17:17-0400Systolic blood qhfqwafz413 mm[Hg]PHYSICIAN [facility]03-13-2025 12:29-0400Body qgsgky209.72 cmPHYSICIAN [facility]03-13-2025 12:29-0400Body usvqwhsnycx10.4 [degF]PHYSICIAN [facility]03-13-2025 12:29-0400 Body rbtajs298 kgPHYSICIAN [facility]10-10-2024 07:30-0400Body cuidligkwzd63.8 [degF]HAILEE Gunterrbacher Work Phone: [phone] [place], [place] 6814710-10-2024 07:30-0400 Diastolic blood kkerfpjy98 mm[Hg]PUTTY GLAZEREllen MarcosDemetria Janirbacher Work Phone: [phone]10-10-2024 07:30-0400 Heart rate89 /minAPREllen MarcosDemetria Janirbacher Work Phone: [phone]10-10-2024 07:30-0400 Respiratory rate20 /minAPREllen Gunterrbacher Work Phone: [phone] [place], [place] 9026010-10-2024 07:30-0400 SaO2% (BldA) [Mass fraction]99 %PUTTY GLAZEREllen Gunterrbacher Work Phone: [phone] [place], [place] 6814710-10-2024 07:30-0400 Systolic blood hkbbsgua199 mm[Hg]HAILEE Gunterrbacher Work Phone: [phone] [place], [place] 9026010-08-2024 15:22-0400 Body iqouis022.72 cmAPREllen MarcosDemetria Janirbacher Work Phone: [phone] [place], [place] 9026010-07-2024 11:25-0400 Body .59 kgAPREllen Gunterrbacher Work Phone: [phone] [place], [place] 6814710-07-2024 10:00-0400 Diastolic blood mnhisdbb44 mm[Hg]HAILEE Gunterrbacher Work Phone: 1([phone] [place], [place] 6814710-07-2024 10:00-0400 Heart rate75 /minAPREllen Gunterrbacher Work Phone: 1([phone] [place], [place] 6814710-07-2024 10:00-0400 Respiratory rate16 /minAPREllen Gunterrbacher Work Phone: [phone] [place], [place] 6814710-07-2024 10:00-0400 SaO2% (BldA) [Mass fraction]97 %HAILEE Cifuentes Work Phone: [facility]10-07-2024 10:00-0400 Systolic blood mvgkiurt102 mm[Hg]HAILEE Marcosfer Esau Work Phone: [facility]10-07-2024 03:09-0400 Body ewwukx934.72 cmAPREllen CrumpDemetria Esau Work Phone: [facility]10-07-2024 03:09-0400 Body ybqofgrunfe04.8 [degF]HAILEE Cifuentes Work Phone: [facility]10-07-2024 03:09-0400 Body ahofcr950.35 kgAPREllen Cifuentes Work Phone: [facility]10-02-2024 16:00-0400 Body meftsi404.72 cm[facility]10-02-2024 16:00-0400Body mass index (BMI) [Ratio]35.4 kg/r7ZktnlsdzhSelect Medical [facility]health Rehabilitation Hospital10-02-2024 16:00-0400Body .6 [degF][facility]10-02-2024 16:00-0400Body .68 kgSelect [facility]10-02-2024 16:00-0400Diastolic blood dztwcmla79 mm[Hg][facility] 07-27-2024 16:00-0400Heart rate76 /minSelect [facility] 07-27-2024 16:00-0696QaD9% (BldA) [Mass fraction]96 %[facility]10-02-2024 16:00-0400Systolic blood hcugohee974 mm[Hg][facility]09-04-2024 10:41-0400Body juqepr845.72 cmSelect [facility]09-04-2024 10:41-0400Body mass index (BMI) [Ratio]35.4 kg/m2 [facility]09-04-2024 10:41-0400Body segzqi834.68 kg [facility]09-04-2024 10:41-0400Diastolic blood dylenpab56 mm[Hg][facility]09-04-2024 10:41-0400Heart pzrx593 /min [facility]09-04-2024 10:41-0400Respiratory rate12 /min [facility]09-04-2024 10:41-0400Systolic blood ozelurkr655 mm[Hg][facility]07-01-2024 11:19-0400Blood Pressure LocationPatricopal PATEL [facility]07-01-2024 11:19-0400Body jhydfgdfzwq94.6 [degF]Joel PATEL [facility]07-01-2024 11:19-0400Diastolic blood hyktjxra94 mm[Hg]Joel PATEL [facility]07-01-2024 11:19-0400Heart rate95 /minPatrick JORGE [facility]07-01-2024 11:19-0400Respiratory rate16 /minPatrick JORGE [facility]07-01-2024 11:19-0400Systolic blood bsjmqdja244 mm[Hg]Joel PATEL [facility]05-09-2024 12:58-0400Body jxmmza394.72 cm[facility]05-09-2024 12:58-0400Body mass index (BMI) [Ratio]37.5 kg/d6GqfganeekSelect Medical Trihealth Rehabilitation Hospital05-09-2024 12:58-0400Body ydrrjc739.03 kgSelect [facility]05-09-2024 12:58-0400Diastolic blood mm[Hg] [facility]05-09-2024 12:58-0400Heart dysi696 /min [facility]05-09-2024 12:58-8865XhI2% (BldA) [Mass fraction]98 %[facility]05-09-2024 12:58-0400Systolic blood otidusfm286 mm[Hg][facility]04-22-2024 10:57-0400 Body ytdzmc631.72 cmSelect [facility]04-22-2024 10:57-0400Body mass index (BMI) [Ratio]37.8 kg/u0ZjxxwynysSelect Medical [facility]04-22-2024 10:57-0400Body .94 kgSelect [facility]04-22-2024 10:57-0400Diastolic blood ipsvjdga38 mm[Hg][facility] 02-15-2024 10:57-0400Heart rate95 /minSelect [facility] 02-15-2024 10:57-1731RsC8% (BldA) [Mass fraction]98 %[facility]04-22-2024 10:57-0400Systolic blood zzfshser432 mm[Hg][facility]02-16-2024 13:06-0500Body ahzcwe294.72 cmSelect [facility]02-16-2024 13:06-0500Body mass index (BMI) [Ratio]37.2 kg/m2 [facility]02-16-2024 13:06-0500Body qipzexaaipd07.7 [degF][facility]02-16-2024 13:06-0500Body rxelhk091.13 kg [facility]02-16-2024 13:06-0500Diastolic blood ykigsxkb86 mm[Hg][facility]02-16-2024 13:06-0500Heart xdlj563 /min [facility]02-16-2024 13:06-0500Respiratory rate18 /min [facility]02-16-2024 13:06-4802ClA0% (BldA) [Mass fraction]96 %[facility]02-16-2024 13:06-0500Systolic blood fylwjvxa522 mm[Hg][facility]02-09-2024 08:30-0500 Body phrirr272.72 cmDemetria Cifuentes Other [employer] Other 02-09-2024 08:30-0500Body mass index (BMI) [Ratio] 39.38 kg/s5IlmlgnwmDemetria Gunterabelino Other [employer] Other 02-09-2024 08:30-0500Body izcvdm481.48 kgDemetria Gunterfranciaopal Other [employer] Other 02-09-2024 08:30-0500Diastolic blood cdfbyadx14 mm[Hg] Demetria Esau Other [employer] Other 02-09-2024 08:30-6112RnJ1% (BldA) [Mass fraction]98 % Demetria Esau Other [employer] Other 02-09-2024 08:30-0500Systolic blood wyldxola511 mm[Hg] Demetria Esau Other [employer] Other 12-22-2023 17:30-0500Body .72 Garrett Olivas Other [facility]12-22-2023 17:30-0500 Body mass index (BMI) [Ratio]42.57 kg/y4Wjjwri Dymond Other [employer] Other 12-22-2023 17:30-0500Body dixqbbwrtzy75.4 [degF]Lynn Olivas Other [employer] Other 12-22-2023 17:30-0500Body rtoeff895.01 kgPasue Olivas Other [employer] Other 12-22-2023 17:30-0500Body [facility]12-22-2023 17:30-0500Diastolic blood mm[Hg] Lynn eDisy Other [facility]12-22-2023 17:30-0500 Respiratory rate18 /minLynn Deisy Other [employer] Other 12-22-2023 17:30-4194LnW0% (BldA) [Mass fraction]97 % Lynn Deisy Other [employer] Other 12-22-2023 17:30-0500Systolic blood epgtfzev282 mm[Hg] Lynn Deisy Other [facility]12-05-2022 19:40-0500 Body quunig781.72 cmPamelricarda Olivas Other [employer] Other 12-05-2022 19:40-0500Body mass index (BMI) [Ratio] 35.58 kg/o1Ngkbkq Deisy Other [employer] Other 12-05-2022 19:40-0500Body .14 kgPasue Deisy Other [employer] Other 12-05-2022 19:40-0500Diastolic blood mkdxdsco14 mm[Hg] Lynn Deisy Other [employer] Other 12-05-2022 19:40-0500Respiratory rate18 /minLynn Olivas Other [employer] Other 12-05-2022 19:40-0811RmH3% (BldA) [Mass fraction]98 % Lynn Olivas Other [employer] Other 12-05-2022 19:40-0500Systolic blood wieqwqkb238 mm[Hg] Lynn Olivas Other [employer] Other 10-11-2020 08:00-0400Body Dgurbovxwuj00.01 [degF][facility], WM44-77-3950 08:00-0400BP Xmayjmufr33 mm[Hg][facility], NC32-20-1421 08:00-0400BP Ahcxxncc506 mm[Hg][facility], MK11-53-0723 08:00-0400Pulse (Heart Rate)80 /min [facility], PR00-94-8316 08:00-0400Respiratory Rate14 /minSAscension St. [facility], GS50-16-5168 19:36-0400Pulse Jccfswvg49 % [facility], TV99-88-1625 23:05-0400BMI (Body Mass Index) 35.15 kg/h1KpyldSparrow Ionia Hospital, DS40-40-1503 23:05-0400Body weight 114.31 kgSparrow Ionia Hospital, NK98-11-1013 23:05-3413Fjlcvc199.[address] [facility], KH16-25-1911 19:54-0400Body Temperature 98.29 [degF][facility], MS04-36-0403 19:54-0400BP Diastolic 74 mm[Hg][facility], [facility], JE95-54-4727 19:54-0400BP Yhenfoor873 mm[Hg][facility], CC47-35-6354 19:54-0400Pulse (Heart Rate) 93 /minRavinod [facility], AD71-54-8852 19:54-0400Pulse Shpsabzo99 %[facility], [facility], NS38-10-8409 19:54-0400Respiratory Rate17 /min [facility], [facility], VY31-49-5164 05:15-0400BMI (Body Mass Index) 35.98 kg/w4RfripFormerly [facility], [facility], FM77-81-1840 05:15-0400Body weight 117.03 kgFormerly [facility], [facility], LA12-15-7430 13:31-1220Dncris232.3 cm [facility], KB58-63-1970 07:46-0400Body Xlthokffcjt05.5 [degF][facility], SN48-47-7051 07:46-0400BP Lcrazaegr74 mm[Hg][facility], CR43-52-7309 07:46-0400BP Ogosczsa072 mm[Hg][facility], XD48-81-1619 07:46-0400Pulse (Heart Rate)93 /[facility]zoAsc[facility], MW15-59-8929 07:46-0400Pulse Mikpxxai80 %[facility], JB16-53-7664 07:46-0400 Respiratory Rate18 /L[facility]zoAsc[facility], OW13-66-6752 00:33-0400BMI (Body Mass Index)39.28 kg/m4JtgboSparrow Ionia Hospital, 02-27-2020 00:33-0400Body lardhk488.66 kgFito SalehOhio State Health System, [place] 02-27-2020 00:334577Fyeoak322.3 Michelle SalehOhio State Health System, [place] 02-14-2020 13:120400BMI (Body Mass Index)40.5 kg/k6Guydhchacorta SalehMarshfield Clinic Hospital Work Phone: [phone] 13:12-0400Body mass index (BMI) [Percentile]99 {percentile}[facility]ito [facility]North[facility] Work Phone: 1(999) 13:12Body Ccwgkwnnijz75.1 [degF]Fito [facility] Work Phone: 1(563) 13:12-0400Body wfngwo283.77 [facility] Work Phone: [phone]) 13:12-0400BP Gruvgwxfx25 mm[Hg]Fito VelezNorthwest Medical Center Work Phone: 1(900) 13:12-0400BP Naccwoxa781 mm[Hg]Fito KaNorthwest Medical Center Work Phone: 1(290) 13:12BSA (Body Surface Area)2.31 m2 [facility] Work Phone: 1(087) 13:129919Nnnydl503.72 [facility] Work Phone: 1(899) 13:12-0Pain Level[address] [place] [address] Work Phone: 1(344) 13:120400Pulse (Heart Rate)84 /minSSageWest Healthcare [facility] Work Phone: 1(891) 13:12-0400Pulse Zphjdruo20 %Fito [facility] Work Phone: [phone] 13:12-0400Respiratory Rate16 /Florin [facility] Work Phone: Encounters Encounter DateEncounter TypeCare ProviderFacilityStart: 05-09-2025 End: 57-08-6547Zhjnaakto department patient visitNO PCP NO PCPProMedica New York HospitalStart: 46-49-6838klqnwcasiaLpdhmxy WATERSFacility: JailStart: 26-40-4349bijxqsufqfNPetar BARONKaiser Permanente Medical Center HospitalStart: 34-16-3499Eim- patient / Non-visitPHYSICIAN NO [facility] Work Phone: Start: 03-31-2025 End: 01-68-4399Ppwvoncarj and management of inpatientJennifer Rohrbacher [employer] Work Phone: [facility]-[address] [place] [address] Work Phone: Start: 42-17-5188rjzffcxnnxPsitlhsf Rohrbacher Facility:[facility] Hospitaltart: 44-51-8597Amoaqmgkqr Recurring PHYSICIAN NO [facility]- CredibleStart: 03-31-2025 End: 72-32-7589tviapzsjjwMsnshrff Rohrbacher [employer] Work Phone: [facility] Work Phone: Start: 03-31-2025 End: 99-17-9517Shtpzyna ReferredJennifer Rohrbacher [employer] Work Phone: [facility]-LAB [facility] HospStart: 02-17-2025 End: 80-92-3164Pvwwsawyd department patient visitJennifer Rohrbacher [employer] Work Phone: [facility] Work Phone: Start: 47-46-8112Vea-patient / Non-visitJetony Caseacher [employer] Work Phone: [facility] Physician [facility] Out[facility] Work Phone: Start: 01-05-2025 End: 42-49-7934Dwtjhcguoh and management of inpatientPHYSICIAN NO [facility]-[address] [place] [address] Work Phone: Start: 80-71-4734Zevbtxxnzy RecurringJetony Gunterrbacher [employer] Work Phone: [facility]- CredibleStart: 14-74-8605Pve-patient / Non-visitAPRN Demetria Cifuentes Work Phone: [facility] Physician [facility] Work Phone: Start: 08-01-2024 End: 60-19-6826Zuocryjkhj and management of inpatientAPRN Demetria Cifuentes Work Phone: [facility]-[address] [place] [address] Work Phone: Start: 07-27-2024 End: 87-96-8797fqacyyxoizAxjmlxetjHolmes County [facility] Work Phone: Start: 07-27-2024 End: 86-96-0527Jmzfpse encounter procedureAtrium Health W[facility] Work Phone: Start: 06-29-2024 End: 18-62-3657ygisyujcbiLcsdullbyHolmes County [facility] Work Phone: Start: 06-29-2024 End: 39-11-0256Mweukto encounter procedureAtrium Health W[facility]haw Physician GroupCleveland [facility] Work Phone: Start: 43-18-1558ugepwabmkyWmabtif R WATERSFacility:EU [place]Start: 04-25-2024 End: 32-59-3454Omb-admission assessmentPakay PATEL [facility] Start: 04-25-2024 End: 42-53-1254Cqmxuzu encounter procedureJoel Elisabeth PATEL [facility]ue start: 03-03-2024 End: 09-11-2637kagdxaqdzcYeeujigelUniversity Hospitals [facility] Work Phone: Start: 03-03-2024 End: 63-34-7366Bdsivbj encounter procedureAtrium Health W[facility] Work Phone: Start: 02-15-2024 End: 04-10-4303imjwdqvhfaIxqtdqmmfUniversity Hospitals [facility] Work Phone: Start: 02-15-2024 End: 82-78-6033Btlvicw encounter procedureAtrium Health W[facility] Work Phone: Start: 86-70-8837Fjz-patient / Non-visitFirnaval medical center [facility] Work Phone: Start: 12-11-2023 End: 98-44-6540qsuoevafruBwxeodcyeUniversity Hospitals [facility] Center Work Phone: Start: 12-11-2023 End: 75-85-3655Ekhncvg encounter procedureAtrium Health W[facility] Physician Group-[facility] Justin Work Phone: Start: 50-13-6434Ipy-patient / Non-visitAtrium Health Waxhaw [facility] Work Phone: Start: 12-04-2023 End: 36-46-0255fmagfcvtkpSapfkcos Rohrbacher Other [employer] Other Start: 55-55-4625Ftfksp outpatient new 30 minutes Demetria JuddOur Lady of Mercy Hospitaltart: 11-30-2023 End: 47-17-9778zwejfzqxrqFHAFBJAJaney Graf AvailableStart: 10-29-2023 End: 89-21-0206jqaslksicaJUZFA L JAXWilfredo AvailableStart: 10-16-2023 End: 55-78-2139dmikmvktdtXzbcsk Deisy Other [place] [employer] Other Start: 62-15-9145Noqccd outpatient visit 15 minutes [facility] ClydeStart: 10-16-2023 End: 80-53-2186Jdtuoim encounter procedureAt[facility] Justin Work Phone: Start: 01-24-2023 End: 36-68-9301vzyjvupwruUphqrlnhmAkron Children's Hospital [facility] Work Phone: Start: 01-24-2023 End: 85-40-2238Xqzdore encounter procedureCity [facility] Work Phone: Start: 01-23-2023 End: 23-64-5015ithrwrtjnySxfqrrizbAkron Children's Hospital [facility]tr Work Phone: Start: 01-23-2023 End: 05-01-1252Xmvdpzkc ReferredParkview [facility] Work Phone: Start: 01-22-2023 End: 26-70-9806Mwyyslcozx and management of inpatientDR NONE LISTED REQUEST Facility:Z8Xzabt: 01-22-2023 End: 32-35-8889clfedtkybeZuguzfrarAkron Children's Hospital Ctr Work Phone: Start: 01-22-2023 End: 59-24-9063Pqksfxqk ReferredCity Hospital Medical [facility] Work Phone: Start: 09-29-2022 End: 66-50-2565Ulygkfau ReferredNP-C [facility] Main CampusStart: 09-29-2022 End: 13-00-6971syulohfcruDL-C Lynn [facility] Work Phone: Start: 93-03-0306Uksgph outpatient new 20 minutes Lynn DymondFPG Urgent Care ClydeStart: 04-20-2022 End: 47-50-0337Vsfxkfolno and management of inpatientSTriHealthtart: 48-19-9446Grxtsrl encounter procedureSdima Villalobos [facility] AdmittingStart: 07-30-2020 End: 84-70-7648Kqynxmaixw and management of inpatientSSt. Mary's Medical Centertart: 90-67-7889Ndibtqw encounter procedureSAscension St. [facility], [place]Start: 07-30-2020 End: 37-96-1646Yxwwlaszal and management of inpatientRavinod Hayes Work Phone: stvz 4C Onc/Med SurgComment on above:Suicide attempt by multiple drug overdose, initial encounter (HCC) (Primary Dx); Toxic metabolic encephalopathyStart: 02-27-2020 End: 95-04-4512Aoseean encounter procedureGalileo Mcmanus Work Phone: [facility] Work Phone: Start: 02-26-2020 End: 33-47-1832Zzcauooeds and management of inpatientSNEW [facility] MARIEGuadalupe Regional Medical Centertart: 11-64-2175Txcgkwa encounter procedureSWellington, KYStsacramento: 02-15-2020 End: 32-94-0658Nierstm encounter procedureSNEW WAYSIDE [facility] KEVYNROOSEVELT GENERAL HOSPITALPAULMemorial Hermann Pearland Hospital CenterStart: 02-15-2020 End: 78-37-0075Ffnhugyonf hospital visit by physicianStr Xr Rm 1 Op [facility] RadiologyComment on above:Left knee pain, unspecified chronicityStart: 02-14-2020 End: 64-60-1162Yzsvddqihbk patientJessnikkie Jose E Work Phone: [facility] Work Phone: Start: 02-14-2020 End: 43-59-0560ujvndmncjgWziln Lilia Work Phone: [facility] Work Phone: Procedures DateProcedureProcedure DetailPerforming ClinicianStart: 72-23-2072N-ray of lumbar spine, two or three viewsAPREllen Augustin Esau Work Phone: Start: 12-98-3211Z-ray of thoracic spine, two views PUTTY GLAZEREllen Augustin Esau Work Phone: Start: 29-93-4518Rhxqhxw blood reagent stripBryan C Vinicio Work Phone: Start: 82-16-4099Akdxmvd blood reagent stripBryan C Vinicio Work Phone: Start: 39-61-3577Cuasuzk blood reagent stripBryan C Vinicio Work Phone: Start: 67-27-6836Iqnfnrjbtt glycosylated x5bDrix Opal Barragan Work Phone: Start: 03-20-6997Xfhrzxl blood reagent stripBryan C Vinicio Work Phone: Start: 77-95-0049Hozdlrt blood reagent stripBryan C Vinicio Work Phone: Start: 96-84-9025BJQKWR STRIP REPORTHpf ScanningStart: 04-43-4460Nysqdmb blood reagent stripBryan C Vinicio Work Phone: Start: 11-60-9629Hqmqnte blood reagent stripBryan C Vinicio Work Phone: Start: 09-81-1714GNUTM OXIMETRY, CONTINUOUSFITO AKERStart: 54-72-5397Wvxhujd blood reagent stripSDIMA AKERStart: 42-12-8762DAKXB-, ANTIBODY, TOTALSACHACORTA AKERStart: 71-05-6953ARPDP- FITO MCtart: 37-15-7730Hegia count complete auto&auto difrntl wbc FITO AKERStart: 03-64-8343Ujnouyysbtcxb metabolic panelSDIMA VILLALOBOS Start: 85-44-1985Elmrgpm function panelSDIMA AKERStart: 11-88-8922Mpwwioi blood reagent stripJean Pierre Barton Work Phone: Start: 47-08-0067JBIGJ-19, ANTIBODY, TOTALRebriericarda Jorge Work Phone: Start: 89-40-2550JAUAI-19Rekhricarda Patel Work Phone: Start: 61-93-7677CRCNQHYVP PATIENTSDIMA SALEHGLADYSPAULAna Start: 39-81-5704CYRFV OXIMETRY, CONTINUOUSSAHENRY COUNTY HOSPITAL MCtart: 08-01-2020 Glucose blood reagent stripJean Pierre Barton Work Phone: Start: 84-64-8139CYBSCMV PRECAUTIONSCHACORTA VILLALOBOS Start: 58-07-4230UHANO OXIMETRY, CONTINUOUSPORT ROYAL KEVYNTOMASAÁNGELAtart: 08-01-2020 Glucose blood reagent stripSDIMA SALEHGLADYSYONATANtart: 39-86-6022YZGN GENERALSAHENRY COUNTY HOSPITAL MCtart: 91-81-1970Etdntoh blood reagent stripJean Pierre Barton Work Phone: Start: 62-30-9925AXEOZOJO OXYGEN THERAPY PROTOCOLSPHOENIX CHILDREN'S HOSPITALJoyce AKERStart: 62-03-8631KFBEQ CANNULA OXYGENSAHENRY COUNTY HOSPITAL MCtart: 40-03-7364KMOYW OXIMETRY, CONTINUOUSPORT ROYAL MCtart: 55-66-3930Bzaamya blood reagent stripSDIMA SALEHCLARISSEtart: 71-72-1793Skkqp count complete auto&auto difrntl wbcSAHENRY COUNTY HOSPITAL KEVYNTOMASAÁNGELAtart: 71-58-9681Nlfxufpoyvcfc metabolic panelSLEO PAULHUNTERtart: 33-03-0266Nxbryqt function panelSDIMA VELEZMARINPAULAna Start: 87-41-3934Izahtwm blood reagent stripJean Pierre Barton Work Phone: Start: 65-90-2233IKYHZ METABOLIC PANEL W/ REFLEX TO MG FOR LOW KSrikanth Popuri Work Phone: Start: 52-80-2809Cuplq count complete auto&auto difrntl wbcSrikarobles Rucker Work Phone: Start: 16-35-3251Wubqzsk function panelRepeter Patel Work Phone: Start: 67-46-5892KECOL OXIMETRY, CONTINUOUSFITO AKERStart: 55-00-0286RSRVD OXIMETRY, CONTINUOUSFITO AKERStart: 87-19-6824Wxurlno blood reagent stripSDIMA AKERStart: 59-88-1261WOTOD OXIMETRY, CONTINUOUSFITO INGRAMSStart: 19-65-9260Onquoug blood reagent stripJean Pierre Barton Work Phone: Start: 46-91-8657Jltcngf blood reagent stripSDIMA AKERStart: 95-35-1262LSNNN OXIMETRY, CONTINUOUSFITO AKERStart: 37-25-8842Gsbnrme blood reagent stripJean Pierre Barton Work Phone: Start: 11-69-2221FMM SCANNED REPORTSDIMA VELEZMARINVERO Start: 04-31-3851NOX SCANNED REPORTHpf ScanningStart: 08-86-0797TKFQH OXIMETRY, CONTINUOUSFITO AKERStart: 82-17-6938Qjbmpqw blood reagent stripSDIMA AKERStart: 41-15-8659Mninhqf blood reagent stripJean Pierre Barton Work Phone: Start: 22-58-6534FT CONSULT TO PSYCHIATRYSAJoyce PAULMARLENYÁNGELAtart: 15-63-5912Yrttomd blood reagent stripSDIMA AKERStart: 15-81-7521QUDTJBVZ OXYGEN THERAPY PROTOCOLSDIMA PAULMARLENYÁNGELAtart: 07-31-2020 NASAL CANNULA OXYGENFITO SALEHTOMASAÁNGELAtart: 75-02-1501SHEII OXIMETRY, CONTINUOUS FITODEZ AKERStart: 98-50-5193Gflpxky blood reagent stripJean Pierre Barton Work Phone: Start: 12-51-6431Eulai of ammoniaFITO VELEZDAT Start: 86-48-6681Bdsllrd function panelSDIMA AKERStart: 16-61-5268May routine ecg w/least 12 lds w/i&rSACHACORTA AKERStart: 32-24-8001JII REPORT FTIO AKERStart: 75-07-1640DWNIQQZ PRECAUTIONSFITO AKERStart: 85-39-9604FNBWZ OXIMETRY, CONTINUOUSFITO AKERStart: 46-32-8375Pimto of ammoniaRepeter Patel Work Phone: Start: 44-49-4728Qlivtsw function panelLizzeth Patel Work Phone: Start: 28-59-2313Cwn routine ecg w/least 12 lds trcg only w/o i&rRnahum Patel Work Phone: Start: 54-16-4178EPN REPORTHpf ScanningStart: 45-01-1618Zhdoadoffoilqla tricyclic other cyclicals 1 or 2SDIMA VELEZDAT Start: 54-26-6004Eigzz of thyroid stimulating hormone tshFITO AKERStart: 13-17-4548Bmvsllwfhj glycosylated j8zOCRRLFITO AKERStart: 23-48-9381Piltzms antibodiesFITO AKERStart: 05-53-9062Yxgwq panelSDIMA AKERStart: 20-71-7402Lpcgsrfoati direct measurement ldl cholesterolFITO AKERStart: 41-48-3392Xdozl misc pathSDIMA AKERStart: 71-41-8159QWZUYCL PRECAUTIONS FITO AKERStart: 24-29-0117OCLPE WEIGHTSFITO AKERStart: 56-20-2525GAJFX OXIMETRY, CONTINUOUSFITO AKERStart: 33-15-7761Wzsaoig blood reagent stripSDIMA AKERStart: 16-91-4592Zjfiv of thyroid stimulating hormone tshsiljosephjoyce Chaim Work Phone: Start: 77-48-1394LKR-65 AUTOANTIBODYSrtrent Rucker Work Phone: Start: 02-75-9626Yuudyurkns glycosylated j1eGrdlravf [employer] Work Phone: Start: 62-06-0128Ywtvf panelSrijesus HadleyLX Ventures Work Phone: Start: 63-93-5411Edpyizjkzpm direct measurement ldl cholesterolTj [facility] Work Phone: Start: 93-80-2594MOGPYFWHQUzktualw Drug [facility] Work Phone: Start: 15-49-4876Pvpyu count complete auto&auto difrntl wbcSACHACORTA MCtart: 73-98-5345Pgzgspyvtjjof metabolic panelSDIMA AKERStart: 10-32-7801TWFF CODESDIMA AKERStart: 59-17-2467EATZWXCN OXYGEN THERAPY PROTOCOLSDIMA AKERStart: 02-54-8809AW CONSULT TO CASE MANAGEMENTFITO Garciart: 43-35-6645UZOED CANNULA OXYGENSACHACORTA AKERStart: 19-13-9775LHUBW/VASCULAR CHECKSSACHACORTA AKERStart: 34-79-7973KQOYFJ PHYSICIAN (SPECIFY)FITO Garciart: 11-92-6197HW EVAL AND TREATFITO Garciart: 94-45-8901OK EVAL AND TREATFIOT VILLALOBOS Start: 38-10-3102OITUW OXIMETRY, CONTINUOUSSACHACORTA Garciart: 07-30-2020 REASON FOR NO MECHANICAL VTE PROPHYLAXISFITO Garciart: 52-46-3473CYXKEP AT BEDSIDEFITO Garciart: 59-22-0179LMNXLAW PRECAUTIONSSACHACORTA AKERStart: 34-31-6513ZRYPFXCZW MONITORINGSACHACORTA Garciart: 00-87-8241AXEWZ SIGNSSACHACORTA AKERStart: 10-35-3813Sxhyxja blood reagent stripComaisha Grubbs Work Phone: Start: 43-32-2789LWTGBVB STATUS (FROM ED OR OR/PROCEDURAL)FITO AKERStart: 74-41-6727Skjm screen class list Gerri Garciart: 86-91-5289Lotel of lactateFITO AKERStart: 01-88-6098SE CONSULT TO INTERNAL MEDICINESDIMA AKERStart: 39-19-1109Blu routine ecg w/least 12 lds w/i&rSACHACORTA AKERStart: 56-06-4001JYZ REPORTSDIMA AKERStart: 43-74-2743Ihpm screen class list aGeoffrey Garst Work Phone: Start: 52-61-1454Cnjluppkap exam chest single view FITO SALEHGLADYSYONATANdavidrt: 15-43-3902VCQNPHD PRECAUTIONSFITO Garciart: 15-97-6410Navit of lactateGebari Cho Work Phone: Start: 88-86-1208LTTWR GAP (CALC) POCFITO VILLALOBOS Start: 28-82-4354Hqmis count hemoglobinFITO AKERStart: 36-29-1218Yfdeulv ionizedFITO AKERStart: 69-00-1793Jmkxgmuz other sourceSDIMA VILLALOBOS Start: 78-19-0080KONIHCPALF W/GFR POINT OF CAREFITO AKERStart: 24-04-7866Pfas bld gluc mntr dev cleared fda spec home useSDIMA VILLALOBOS Start: 13-85-7203Ohqydkh blood reagent stripSDIMA SALEHGLADYSYONATANtart: 07-30-2020 LACTIC ACID,POINT OF CAREFITO AKERStart: 83-16-3060Jdcdsuqfz serum plasma/whole bloodFITO VELEZMARLENYÁNGELAtart: 14-42-0083Phlowc serum plasma or whole bloodFITO SALEHGLADYSYONATANtart: 68-58-2506EOPDMT BLOOD GAS, POINT OF CAREFITO SALEHGLADYSYONATANtart: 26-72-4622Dvydbmlkibjygxd tricyclic other cyclicals 1 or 2 FITO SALEHTOMASAÁNGELAdavidrt: 45-00-1252Bpnue of lipaseFITO SALEHGLADYSKASStart: 02-09-5624Khfnf count complete auto&auto difrntl wbcSACHACORTA INGRAMSStart: 49-06-8548Qihk tst prsmv instrmnt chem analyzers pr Brendan INGRAMSStart: 75-73-6821Gtk routine ecg w/least 12 lds trcg only w/o i&rWaseem Kyle Work Phone: Start: 26-70-3442CHV REPORTHpf ScanningStart: 82-12-5350Gsjzdyfkpk exam chest single viewGeoffrey Tammie Work Phone: [phone]: 21-26-4344ENVPC GAP (CALC) POCPerezellen Freddy Work Phone: [phone]: 98-40-8160Tawup count hemoglobinRazaellen Freddy Work Phone: [phone]: 90-18-0944SDOXYPC, IONIC (POC)Peace Juan-Sandra Work Phone: [phone]: 71-33-9684Jyslqkyt [Moles/Vol]Malikkarina Freddy Work Phone: Start: 28-11-8379YEROJVRYKG W/GFR POINT OF CAREPerezellen Juan-Sandra Work Phone: [phone]: 61-80-3611Irjs bld gluc mntr dev cleared fda spec home useRazan Freddy Work Phone: Start: 47-15-1959Cvexsxu blood reagent stripRazaellen Freddy Work Phone: [phone]: 40-97-8339JVRRHM ACID,POINT OF CAREPerezellen Juan-Claires Work Phone: Start: 64-63-9040Ibxwgvskk [Moles/Vol]Peace Juan-Sandra Work Phone: [phone]: 45-48-8740Keounc [Moles/Vol]Peace Juan-Claires Work Phone: Start: 86-68-0999BXCMFY BLOOD GAS, POINT OF CARERazaellen Juan-Claires Work Phone: Start: 07-33-3921Kqvgm of lipaseGeoffrey Gar Work Phone: Start: 30-90-2980Zlkno count complete auto&auto difrntl wbcGeoffrey Garst Work Phone: Start: 51-35-3391AVV SCR, BLD, EDGeoffrey Garst Work Phone: Start: 26-42-4557MMENEUAUHJhsqylxl Garst Work Phone: Start: 07-30-2020 End: 34-26-0684Ikv routine ecg w/least 12 lds trcg only w/o i&rGeoffrey Garst Work Phone: Start: 07-30-2020 End: 81-83-7534AJN REPORTHpf ScanningStart: 14-60-7904WJPMVWFOX PATIENTSDIMA Josert: 45-85-1707VARL CODESDIMA MCtart: 22-05-8949ATCAEWC MONITORING CLOSE Q 15 MINUTESSAJoyce MCtart: 46-89-3852TMXMXSF CESSATION EDUCATIONSACHACORTA MCtart: 42-70-7775FIFLV SIGNSSACHACORTA MCtart: 76-08-1554HI CONSULT TO SOCIAL WORKSDIMA Josert: 58-21-3978HOFZXVG STATUS (FROM ED OR OR/PROCEDURAL)FITO MCtart: 19-72-0326CDFP GENERAL FITO Josert: 84-63-4942Rouoqwui bordetellaSACHACORTA MCtart: 09-90-9748Hqjbe of acetaminophenSARAJoyce AKERStart: 78-83-5962Exvac of ethanolSARAH MARIESStart: 65-72-3011Xnwkw of osmolality bloodSARAJoyce INGRAMSStart: 75-66-2778Pspnh of salicylateSACHACORTA AKERStart: 71-73-6604Lpmrl of thyroid stimulating hormone tshSACHACORTA AKERStart: 73-60-6815Vaktd metabolic panel calcium totalSACHACORTA INGRAMSStart: 02-26-2020 Blood count complete auto&auto difrntl wbcSACHACORTA INGRAMSStart: 47-88-3500Dkil screen class list Gerri INGRAMSStart: 72-44-0968Pgcpi dip stick/tablet rgnt auto w/o microscopyFITO INGRAMSStart: 69-55-1238Eyzyp gap [Moles/Vol] Vannessaamed Eltierarani Work Phone: Start: 71-09-3179Yiapg of acetaminophenMohamed Eldirani Work Phone: Start: 22-92-3323Fxcag of ethanolMohamed Eldirani Work Phone: Start: 48-01-5749Qrrte of osmolality bloodMohamed Eldirani Work Phone: Start: 89-26-1339Byvdw of salicylateMohamed Eldirani Work Phone: Start: 86-98-9870Hflyc of thyroid stimulating hormone tshMohamed Eldirani Work Phone: Start: 01-01-0802Lpxpk metabolic panel calcium total Corinne Moncadarani Work Phone: Start: 49-30-1013Oxxin count complete auto&auto difrntl wbcMohamed Eldirani Work Phone: Start: 83-85-6974Udoq screen class list aMohamed Eldirani Work Phone: Start: 06-19-9906Kmexv dip stick/tablet rgnt auto w/o microscopyMohamed Eldirani Work Phone: Start: 95-85-0424Hnsdemkbez examination knee 3 views FITO SALEHTOMASASStart: 36-44-2737Stgrrwyzwm examination knee 3 viewsFito Velezmarlenyana Work Phone: start: 77-95-2184BVGMSLHEXMGbvln KavalauskasStart: 76-55-2613Zieim bp <80 mm hgSarah Kavalauskas Work Phone: start: 28-41-9430JQEUGDIO Keren Villalobos Start: 40-99-1584Eguvuoheebvbp w/patient 30 minutesJeángel Dorantes Work Phone: start: 56-11-6199Aj tobacco screen rcvd tlValeriano Villalobos Work Phone: Start: 16-72-1846Lo-focused hlth risk assmt score doc stnd instrLilliam Villalobos Work Phone: Start: 82-20-7769Ydzd bp >/= 140 mm Sheyla Villalobos Work Phone: start: 64-88-8657iydxwify berated, harassed, or intimidateKailey VillalobosNone (qualifier value)Joel JORGE NEGATED: Highlighted row has not occurred!Start: 02-14-2020H/O: surgeryFito Villalobos Plan of Treatment DateCare ActivityDetailAuthorStart: 15-21-2999VpkziemvySelect Medical [facility]health Rehabilitation Hospital Start: 99-21-2981MvbafvcskMercy Health Allen Hospitaltart: 28-45-5147Eqvccnje to clinical allergistParkview Health CenterStart: 59-93-7464PhkcjggvhMercy Health Allen Hospitaltart: 2001Hjfyovml admissionMercy Health Allen Hospitaltart: 64-71-8401TxxowpxcpParkview Health CenterStart: 19-30-4289SbymsinolParkview Health CenterStart: 27-45-5156LwinyefsxParkview Health CenterStart: 10-76-9315Cuebjtdo to clinical allergistParkview Health CenterStart: 60-15-7731Strdnfla to Social ServicesMercy Health Allen Hospitaltart: 69-89-2701Xpioribk admissionParkview Health CenterStart: 42-11-7997DdhhnynbpMercy Health Allen Hospitaltart: 08-04-2024 [facility] CenterStart: 40-35-5271Rucsoqfw to clinical manager technical training [facility] Hospitaltart: 86-89-7316JhbjjdhpwMercy Health Allen Hospitaltart: 07-70-2698Nynypnsv to Social ServicesMercy Health Allen Hospitaltart: 81-74-8602Mpxahfod admissionMercy Health Allen Hospitaltart: 00-33-2043IjtwyosufMercy Health Allen Hospitaltart: 81-43-3034Qbtorat referral [facility] Work Phone: Start: 73-79-7095Cajpxae referralDunlap Memorial Hospital Work Phone: Start: 68-12-4939Hfzpdnx referralDunlap Memorial Hospital Work Phone: Start: 79-36-9957SHnL/Tdap/Td vaccine (7 - Td) DTaP/Tdap/Td vaccine (7 - Td)[facility] Centerart: 67-96-7218LsltlyramMercy Health Allen Hospitaltart: 14-88-2079AkO3i (Bld) [Mass fraction]A1C test (Diabetic or Prediabetic)[place], [place]St[place]: 45-56-5610IvB0o (Bld) [Mass fraction]A1C test (Diabetic or Prediabetic)[facility]: 07-31-2021 Lipid panelLipid [facility]: 08-04-2020 End: 92-22-9649Fvixy metabolic 2000 panelBasic Metabolic Panel Lab Routine Toxic metabolic encephalopathy Expected: 08/04/2020, Expires: 08/01/2021[place], KYComhenry [facility] on above:Expected: 08/04/2020, Expires: 08/01/2021tart: 48-79-0006Nfwvuwwse [place], [place]Start: 32-28-6534SI Knee 3 Views (44492)[facility] Work Phone: start: 11-52-3249MxpumbmcyoiCcnvezHubbard Regional Hospital Work Phone: comment on above:Note: Please make a referral to: Start: 46-25-1204Jahsmtcl microalbuminuria testDiabetic microalbuminuria test [facility]: 70-78-2316Jnobnjvmaehgb (ACWY) vaccine (1 - 2-dose series)Meningococcal (ACWY) vaccine (1 - 2-dose series)[facility]: 25-19-6309CRJ screeningHIV screenMercy Health Anderson Hospital: 04-64-7880SCU vaccine (2 - Male 2-dose series)HPV vaccine (2 - Male 2-dose series)[facility]: 26-11-8996USC vaccine (1 - Male 2-dose series)HPV vaccine (1 - Male 2-dose series)[facility]: 49-99-1952Skycqtqo foot examinationDiabetic foot examMercy Health Anderson Hospital: 38-31-5396Zlaoupqg retinal examDiabetic retinal examMercy Health Anderson Hospital: 2008 DTaP/Tdap/Td vaccine (1 - Tdap)DTaP/Tdap/Td vaccine (1 - Tdap)[facility]: 70-14-7583Clxrtqelsijp 0-64 years Vaccine (1 of 1 - PPSV23)Pneumococcal 0-64 years Vaccine (1 of 1 - PPSV23)[facility]: 09-04-2003 Hepatitis B vaccine (3 of 3 - Risk 3-dose series)Hepatitis B vaccine (3 of 3 - Risk 3-dose series)[facility]: 54-93-0491Nuyuhixyt B vaccine (3 of 3 - 3-dose primary series)Hepatitis B vaccine (3 of 3 - 3-dose primary series)[facility]: 61-23-8932Xxwkrfdtt A vaccine (1 of 2 - 2-dose series)Hepatitis A vaccine (1 of 2 - 2-dose series)[facility]: 16-02-5581Zcmiwtf,Mumps,Rubella (MMR) vaccine (1 of 2 - Standard series) Measles,Mumps,Rubella (MMR) vaccine (1 of 2 - Standard series)[facility]: 83-58-5791Yujkksqtg vaccine (1 of 2 - 2-dose childhood series)Varicella vaccine (1 of 2 - 2-dose childhood series)[facility] SouthDENITAStart: 2001 Hepatitis B vaccine (1 of 3 - 3-dose primary series)Hepatitis B vaccine (1 of 3 - 3-dose primary series)[facility], DENITABasi Metabolic Panel w/ Reflex to MGBasic Metabolic Panel w/ Reflex to MG Lab Routine Daily until discontinued starting 07/31/2020, 1 completedSelect [facility] SouthDENITAComted on above:Daily until discontinued starting 07/31/2020, 1 completedCalculated LDL cholesterol level [facility] HospitalCBC auto differentialCBC auto differential Lab Routine Daily until discontinued starting 07/31/2020, 1 completedSelect [facility] SouthLarissa on above:Daily until discontinued starting 07/31/2020, 1 completed Chlamydia trachomatis DNA [Presence] in Unspecified specimen by HEIDY with probe detectionOur Lady Of Mercy [facility] Work Phone: cholesterol.total/Cholesterol in HDL [Mass Ratio] in Serum or PlasmaSelect Medical Trihealth Rehabilitation HospitalComprehensive metabolic 2000 panel - Serum or PlasmaSelect Medical Trihealth Rehabilitation HospitalContinuous pulse oximetryPulse oximetry, continuous Respiratory Care Routine Every 4hr until discontinued starting 07/31/2020[facility] SouthLarissa on above:Every 4hr until discontinued starting 07/31/2020 End: 50-54-1389RUQ-65 AUTOANTIBODYGAD-65 AUTOANTIBODY Lab Add-On One Time for 1 Occurrences starting 07/30/2020 until 07/30/2020[facility] SouthDENITAComted on above:One Time for 1 Occurrences starting 07/30/2020 until 07/30/2020GAD-65 AUTOANTIBODYGAD-65 AUTOANTIBODY Lab Add-On 07/31/2020 12:26 AM EDOhioHealth Doctors HospitalDENITAGlucose measurement estimated from glycated hemoglobinSelect Medical Trihealth Rehabilitation HospitalHemoglobin A1c/Hemoglobin.total in BloodSelect Medical Trihealth Rehabilitation HospitalHEPATIC FUNCTION PANELHEPATIC FUNCTION PANEL Lab Routine Daily until discontinued starting 07/31/2020, 2 heavenSelect [facility] SouthLarissa on above:Daily until discontinued starting 07/31/2020, 2 completed End: 81-99-5872Ltgplhnztqazk sendout 2Miscellaneous sendout 2 Lab Routine Once for 1 Occurrences starting 07/31/2020 until 07/31/2020[facility], [place] Comment on above:Once for 1 Occurrences starting 07/31/2020 until 07/31/2020 Miscellaneous sendout 2Miscellaneous sendout 2 Lab Routine 07/31/2020 12:26 AM EDTMLima [facility], KYNasal Cannula oxygenNasal Cannula oxygen Respiratory Care Routine Daily until discontinued starting 07/30/2020[facility], KYComment on above:Daily until discontinued starting 07/30/2020Neisseria gonorrhoeae DNA [Presence] in Unspecified specimen by HEIDY with probe detectionParkview Health Ctr Work Phone: Oxygen therapy [Minimum Data Set]Initiate Oxygen Therapy Protocol Respiratory Care Routine Daily until discontinued starting 07/30/2020[facility], KYComment on above:Daily until discontinued starting 07/30/2020Patient EducationParkview Health Ctr Work Phone: Patient referralDunlap Memorial Hospital Work Phone: POCT GlucosePOCT Glucose Point of Care Testing STAT As Needed until discontinued starting 07/30/2020[facility], KYComment on above:As Needed until discontinued starting 07/30/2020 End: 42-22-5031EZPTDAVGGBkldd Health- [place], [place]Comment on above:One Time for 1 Occurrences starting 07/30/2020 until 07/30/2020[facility] [place] Trichomonas vaginalis DNA [Presence] in Unspecified specimen by HEIDY with probe detectionParkview Health Ctr Work Phone: VLDL cholesterol measurementNorth [facility] Immunizations Immunization DateImmunizationNotesCare [id number], seasonal, injectable, preservative freeAPRN Demetria Cifuentes Work Phone: [facility]08-31-2021SARS-CoV-2 (COVID-19) mRNA BNT-162b2 sungxPakay PATEL [facility]08-10-2021SARS-CoV-2 (COVID-19) mRNA BNT-162b2 [place] PATEL [facility] DatePayer CategoryPayerPolicy [id number] BCBS [place] P[place] xxxxxxxxxxxx 2020-Present [address] [place], [place] [address]athu,xxxxx [id number] UnknownBCBS BCBS [place] P[place] xxxxxxxxxxxx 2019-Present [address] [place], [place] [id number] [id number] 2.16840.1.613226.3.5[id number] 2.16840.1.398433.3.57[id number] 2.16.840.1.795095.3.579.2.80981-71-1139Bxwqvyv83006984 2.16.840.1.762521.3.579.2.37299-50-8132Qgrvjkp1564310 2.16.840.1.834993.3.579.2.07175-22-8367Ecgrwbg6514260 2.16.840.1.821116.3.579.2.487841-20-7705Sdwuytf366562 2.16.840.1.484452.3.579.2.605841-43-9684Jgoovcq66384315 2.16.840.1.930410.3.579.2.48883-30-3904Wtbphqk83572724 2..840.1.985491.3.579.2.[id number] 2.16.840.1.374264.3.579.[id number] [id number] 2y233ef5-q253-3cva-93w7-[id number] 2.0.1.91498[id number] 2.840.1.515983.3.579.2.531 [id number] 2..1.6857[id number] 2.0.1.247471.3.579.2.722Mzqzgim99606762 2.0.1.715600.3.579.2.531 [id number] 2..1.886693.3.579.2.531 Social History DateTypeDetailFacilityAssertionSexually active (finding)[facility] Work Phone: assertionGender identity finding (finding)[facility] Work Phone: assertionExposure to pollution (event)[facility] Work Phone: assertionFinding of sexual orientation (finding)[facility] Work Phone: AssertionTobacco user (finding)[facility] Work Phone: Start: 08-01-2024 End: 53-89-5738Wdgsygj smoking statusUnknown if ever smokedSelect Medical Trihealth Rehabilitation HospitalAssertionProblem situation relating to social and personal history (finding)[facility] Work Phone: AssertionEmotional stress (finding)[facility] Work Phone: [phone] (finding)[facility] Work Phone: AssertionExecutive [facility] BellevueAssertionVictim status (finding)[facility] Work Phone: AssertionVictim of child abuse (finding)[facility] Work Phone: AssertionFinding relating to drug misuse behavior (finding)[facility] Work Phone: AssertionHeterosexual (finding)[facility] Work Phone: AssertionLives with relatives (finding)[facility] Work Phone: AssertionVictim of child neglect (finding)[facility] Work Phone: AssertionVictim of physical abuse (finding)[facility] Work Phone: FssertionSingle person (finding)[facility] Work Phone: PajhhgoasPvfi-mrhu employment (finding)[facility] Work Phone: Sex Assigned At BirthNot on [facility], [place] Start: 02-27-2020 End: 91-95-1490Vgxvpvh smoking status NHISCurrent every day smokerSelect [facility], KYHistory of tobacco useCigarette SmokerSelect Medical [facility]ty [facility], KYStart: 02-27-2020 End: 99-17-0912Jctlptccdd smoked current (pack per day) - ReportedSelect Medical Specialty [facility], KYHistory of tobacco useChews TobaccoSelect Medical Specialty [facility] [place] [facility], [place]: 02-27-2020 End: 29-64-7590Iutspny intakeCurrent drinker of alcohol (finding)[facility], [place]: 60-12-5684Ysaauvu SDOH Alcohol Zyoqyclwz6LcypiSelect Medical Specialty [facility], KYStart: 01-62-8562Wrswvzo SDOH Alcohol Std Qettnq1WmavsSelect Medical Specialty [facility], KYExposure to SARS-CoV-2 (event)Unable to assessSelect Medical Specialty [facility], KYStart: 61-74-2625Rbbaadb use and exposureFormer userSelect Medical Specialty [facility], KYExposure to SARS-CoV-2 (event)Not sureSelect Medical Specialty [facility], [facility]: 46-01-9310Jhf Assigned At [facility]igned [facility]: 85-17-7523Rcvbkam smoking status NHISNever smoked tobacco (finding)[facility]: 04-25-2024 End: 61-54-8178Vpgnbqb smoking statusSmoker (finding)[facility] BellevueStart: 01-05-2025 End: 03-99-8826NvbWkgx (finding)[facility] Rehabilitation HospitalNEGATED: Highlighted rowAssertionCurrent drinker of alcohol (finding)[facility] Work Phone: NEGATED: Highlighted rowAssertionFinding relating to drug misuse behavior (finding)[facility] Work Phone: NEGATED: Highlighted rowAssertionHealth Partners [facility] Work Phone: NEGATED: Highlighted rowAssertionCriminal behavior (finding)[facility] Work Phone: NEGATED: Highlighted rowAssertionInadequate food diet (finding)[facility] Work Phone: NEGATED: Highlighted rowAssertionTobacco user (finding)[facility] Work Phone: NEGATED: Highlighted rowAssertionExposure to pollution (event)[facility] Work Phone: Medical Equipment Procedure CodeEquipment CodeEquipment Original TextEquipment IdentifierDates Blood Sugar Diagnostic (Freestyle Precision Jorge Strips) stripStart: 03-03-2024 Blood Sugar Diagnostic (Freestyle Precision Jorge Strips) stripStart: 03-03-2024 End: 00-53-3427Vxg Needle, Diabetic (Bd Ultra-Fine Micro Pen Needle) 32 gauge x 1/4 needleStart: 73-36-9662Dbmoo Sugar Diagnostic (Freestyle Precision Jorge Strips) stripStart: 03-03-2024 End: 36-20-7137Jbc Needle, Diabetic (Bd Ultra-Fine Micro Pen Needle) 32 gauge x 1/4 needleStart: 99-48-4908Zutml Sugar Diagnostic (Freestyle Precision Jorge Strips) stripStart: 03-03-2024 End: 40-11-5520Fmq Needle, Diabetic (Bd Ultra-Fine Micro Pen Needle) 32 gauge x 1/4 needleStart: 71-54-8234Rjlbg Sugar Diagnostic (Freestyle Precision Jorge Strips) stripStart: 03-03-2024 End: 13-63-2010Ptfpe Sugar Diagnostic stripStart: 48-29-1065Wdv Needle, Diabetic (Bd Ultra-Fine Micro Pen Needle) 32 gauge x 1/4 needleStart: 59-23-9489Axhqi Sugar Diagnostic (Freestyle Precision Jorge Strips) stripStart: 03-03-2024 End: 87-29-6330Wkvlx Sugar Diagnostic stripStart: 21-67-6558Grj Needle, Diabetic (Bd Ultra-Fine Micro Pen Needle) 32 gauge x 1/4 needleStart: 84-12-2363Zuwzj Sugar Diagnostic (Freestyle Precision Jorge Strips) stripStart: 03-03-2024 End: 33-96-1077Zioxq Sugar Diagnostic stripStart: 35-89-0994Yes Needle, Diabetic (Bd Ultra-Fine Micro Pen Needle) 32 gauge x 1/4 needleStart: 54-28-3408Npluw Sugar Diagnostic (Freestyle Precision Jorge Strips) stripStart: 03-03-2024 End: 89-16-5225Tsepn Sugar Diagnostic (Freestyle Precision Jorge Strips) strip Start: 03-03-2024 End: 94-61-5073Alxuz Sugar Diagnostic stripStart: 06-29-2024 End: 74-14-1236Rub Needle, Diabetic (Bd Ultra-Fine Micro Pen Needle) 32 gauge x 1/4 needleStart: 06-29-2024 End: 04-05-2025 Goals DatePatient GoalDesired Activity/State Functional Status DwghRbjlmwuketUjmywyWenjhzyr31-83-2557Lbcdpvbusq statusPatient at Baseline [facility] Work Phone: 1(796) 279-839206429101-82-4117Ubledudktz statusPatient Not at Baseline [facility] Work Phone: 1(750) 594-485803-693715-12-2274Mjjlergprg statusPatient at Baseline [facility] Work Phone: 1(712) 442-243610-926998-71-5286Ndxyzxjvsz statusPatient at Baseline [facility] Work Phone: 1(193) 559-867207480328-88-3761Bafruzafgk StatusN/AExecutive Urology of [facility]ana Mental Status IsoyXqkhcqyionMkvleyWqjmgadl77-79-5993Bwvgsbtnj functionCognitive Status [facility] Work Phone: 1(491) 597-885406-074220-13-0208Geyjoosiq functionCognitive Status Patient Not at BaselineOur [facility] Work Phone: 1(839) [phone]Zbazynrbp functionCognitive Status Patient at BaselineOur [facility] Work Phone: 1(108) 713-368310-930610-25-0877Pahywrrto functionCognitive Status Patient at BaselineOur [facility] Work Phone: Cognitive functionCognitive functioning was normal Cognitive function finding (finding)[facility] Work Phone: Clinical Notes 09-29-2022 to 04-04-2025 Note Date & HobpQvyjWaepqoxs82-77-3667 Progress note Author Ceferino Edwards [facility] Rehabilitation HospitalNote Date/TimeJune 2024 2:58pm[place] [address] Psychiatry Progress Note Signed Patient: Tracie Ramirez MR#: [id number] 4579 : 2000 Acct:[id number] Age/Sex: 25 / M Adm Date: 5 Loc: 1S Room: [address] [place] [address] Type : ADM IN Attending Dr: Blue Talbot MD Copies to: ~ Date of Service: 04/04/2025 Subjective Subjective Narrative: Mr. Ramirez is a 25 year old male on day 4 of hospitalization for SI. Today, pt presented as anxious. He was denied from [facility] [place] but was accepted at two other programs. [...] <Electronically signed by Ceferino Edwards MD> 04/04/25 2188 [facility] Work Phone: 1(870) 112-340306-10-2025 [place] [id number] Psychiatry Progress Note Signed Patient: Tracie Ramirez MR#: [id number] 4579 : 2000 Acct:[id number] Age/Sex: 25 / M Adm Date: 5 Loc: 1S Room: [address] [place] [address] Type : ADM IN Attending Dr: Blue Talbot MD Copies to: ~ Date of Service: 04/04/2025 Subjective Subjective Narrative: Mr. Ramirez is a 25 year old male on day 4 of hospitalization for SI. Today, pt presented as anxious. He was denied from [facility] but was accepted at [...] MD 04/04/25 1040 Signed By: 04/04/25 1458 [facility]06-09-2025 Progress note Author Ceferino Edwards [facility] HospitalNote Date/TimeJune 2024 3:35pm[place] [address] Psychiatry Progress Note Signed Patient: Tracie Ramirez MR#: [id number] 4579 : 2000 Acct:[id number] Age/Sex: 25 / M Adm Date: 5 Loc: 1S Room: [address] [place] [address] Type : ADM IN Attending Dr: Blue [...] <Electronically signed by Ceferino Edwards MD> 04/03/25 8520 [facility] Work Phone: 1(110) 494-662406-09-2025 [place] note[place] 5062470 Psychiatry Progress Note Signed Patient: Tracie Ramirez MR#: [id number] 4579 : 2000 Acct:[id number] Age/Sex: 25 / M Adm Date: 5 Loc: 1S Room: [address] [place] [address] Type : ADM IN Attending Dr: Blue [...] Edwards MD 04/03/25918 Signed By: 04/03/25 1535 [facility]06-08-2025 Consult note Author Rola Valdes [facility] HospitalNote Date/TimeJune 2024 8:09[place] [id number] Hospitalist Consult Note Signed Patient: Tracie Ramirez MR#: [id number] 4579 : 2000 Acct:[id number] Age/Sex: 25 / M Adm Date: 5 Loc: Room: [address] [place] [address] Type: ADM IN Attending Dr: Blue Talbot MD Copies to: MD Demetria Hastings APRN, MIDDLE SCHOOL TE[employer]ER Rola Valdes APRN NO FAMILY PHYSICIAN Dayan Perrin MD~ HPI DATE OF CONSULTATION: 04/01/25 REQUESTING PROVIDER: Blue Talbot Consult Narrative Reason for Consult: Hypertriglyceridemia, diabetes HPI: This is a 25-year-old male past medical history significant for hypertriglyceridemia, insulin-dependent diabetes, obesity, depression. Presented to [facility] last evening with suicidal ideation and depression. Transferred to [facility] for ongoing psychiatric management. 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 Depression -further plan of care per inpatient psychiatric team for psychoactive medication management/ adjustment and psychotherapy Documented By: Rola Valdes, PUTTY GLAZER 05/19 1630 Signed By: <Electronically signed by HAILEE Valdes> 04/01/25 1631 <Electronically signed by Dayan Perrin MD> 04/02/25 0809 [facility] Work Phone: 1(100) 442-712606-08-2025 Progress note Author Blue guerrero [facility] HospitalNote Date/TimeJune 2024 6:39[place] [address] Psychiatry Progress Note Signed Patient: Tracie Ramirez MR#: [id number] 4579 : 2000 Acct:[id number] Age/Sex: 25 / M Adm Date: 5 Loc: 1S Room: [address] [place] [address] Type : ADM IN Attending Dr: Blue [...] [facility] [place] [place] Continue current med regimen Monitor mental status Encourage group participation and psychotherapy Documented By: Blue Talbot MD 5 0636 Signed By: <Electronically signed by Blue Talbot MD> 04/02/25 0639 [facility] Work Phone: 1(993) 634-104506-08-2025 [place] [address] Hospitalist Consult Note Signed Patient: Tracie Ramirez MR#: [id number] 4579 : 2000 Acct:[id number] Age/Sex: 25 / M Adm Date: 5 Loc: Room: [address] [place] [address] Type: ADM IN Attending Dr: Blue Talbot MD Copies to: MD Demetria Hastings APRN, MIDDLE SCHO[employer] TE[employer]ER Rola Valdes APRN NO FAMILY PHYSICIAN Dayan Perrin MD~ HPI DATE OF CONSULTATION: 04/01/25 REQUESTING PROVIDER: Blue Talbot Consult Narrative Reason for Consult: Hypertriglyceridemia, diabetes HPI: This is a 25-year-old male past medical history significant for hypertriglyceridemia, insulin-dependent diabetes, obesity, depression. Presented to [facility] last evening with suicidal ideation and depression. Transferred to [facility] for ongoing psychiatric management. 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 Depression -further plan of care per inpatient psychiatric team for psychoactive medication management/ adjustment and psychotherapy Documented By: Rola Valdes APRN 05/19 1630 Signed By: 04/01/25 1631 04/02/25 0809 [facility]06-08-2025 [place] [address] Psychiatry Progress Note Signed Patient: Tracie Ramirez MR#: [id number] 4579 : 2000 Acct:[id number] Age/Sex: 25 / M Adm Date: 5 Loc: 1S Room: [address] [place] [address] Type : ADM IN Attending Dr: Blue [...] [facility] [place] [place] Continue current med regimen Monitor mental status Encourage group participation and psychotherapy Documented By: Blue Talbot MD 5 0636 Signed By: 04/02/25 0639 [facility]06-07-2025 History and physical note Author Blue guerrero [facility] HospitalNote Date/TimeJune 2024 2:29pmDaven[place] [address] Psychiatry H&P Signed Patient: Traice Ramirez MR#: [id number] 4579 : 2000 Acct:[id number] Age/Sex: 25 / M Adm Date: 5 Loc: Room: [address] [place] [address] Type: ADM IN Attending Dr: Blue Talbot [...] outpatient appointments are scheduled prior to discharge. [facility] Medical History (Updated 04/01/25 @ 14:27 by [...] psychotherapy Documented By: Blue Talbot MD 5 0853 Signed By: <Electronically signed by Blue Talbot MD> 04/01/25 5636 [facility] Work Phone: 1(992) 429-880506-07-2025 History and physical [place] [id number] Psychiatry H&P Signed Patient: Tracie Ramirez MR#: [id number] 4579 : 2000 Acct:[id number] Age/Sex: 25 / M Adm Date: 5 Loc: Room: [address] [place] [address] Type: ADM IN Attending Dr: Blue Talbot [...] outpatient appointments are scheduled prior to discharge. [facility] Medical History (Updated 06/07/25 @ 14:27 by [...] MD 5 1143 Signed By: 04/01/25 1429 [facility]03-13-2025 Evaluation note* Diagnosis Onset Date Resolution Status Admit Date Depression acuteMarch 2024 4:51pmDM (diabetes mellitus)acuteMarch 2024 4:51pm HyperlipidemiaacuteMarch 2024 4:51pmHypertriglyceridemiaacuteMarch 2024 4:51pmNoncomplianceacuteMarch 2024 4:51pmDepression with suicidal ideationresolvedMarch 2024 4:51pm [facility] Work Phone: 1(178) 648-127903-13-2025 Evaluation note* Diagnosis Onset Date Resolution Status Admit Date Depression acuteMarch 2024 4:51pmDM (diabetes mellitus)acuteMarch 2024 4:51pm HypertriglyceridemiaacuteMarch 2024 4:51pmNoncomplianceacuteMarch 2024 4:51pmDepression with suicidal ideationresolvedMarch 2024 4:51pm HyperlipidemiaresolvedMarch 2024 4:51pmBipolar disorderacuteJune 2024 12:58pmDiabetic polyneuropathyacuteJune 2024 12:58pmHypertriglyceridemia acuteJune 2024 12:58pmNoncomplianceacuteJune 2024 12:58pmUncontrolled diabetes mellitusacuteJune 2024 12:58pm [facility] Work Phone: 1(847) 867-684510-10-2024 Consult note Author Mauricio White [facility] August 04, 2024 9:47amNote Date/TimeOctober 2023 4:13pm[place] [address] Hospitalist Consult Note Signed Patient: Tracie Ramirez MR#: [id number] 4579 : 2000 Acct:[id number] Age/Sex: 24 / M Adm Date: 4 Loc: Room: [address] [place] [address] Type: ADM IN Attending Dr: Blue Talbot MD Copies to: MD Demetria Hastings APRN, [employer]ER HAILEE Dickens, DO~ HPI DATE OF CONSULTATION: [...] Neut % (Auto) 59.5, Lymph % (Auto) 34.6,Cook % (Auto) 4.6, Eos % (Auto) 0.7, Baso % (Auto) 0.6, Nucleat RBC Rel Count 0.3, Neut # (Auto) 5.1, Lymph # (Auto) 3.0, Cook # (Auto) 0.4, Eos # (Auto) 0.1, [...] imaging -Already prescribed tizanidine per 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 [...] signed by Mauricio White DO> 08/04/24 0947 [facility] Work Phone: 1(312) 503-931610-10-2024 Progress note Author Blue guerrero [facility] August 04, 2024 8:38amNote Date/TimeOct2023 8:38[place] [id number] Psychiatry Progress Note Signed Patient: Tracie Ramirez MR#: [id number] 4579 : 2000 Acct:[id number] Age/Sex: 24 / M Adm Date: 4 Loc: 1S Room: [address] [place] [address] Type : ADM IN Attending Dr: Blue Talbot MD Copies to: ~ Date of Service: 08/04/2024 Subjective Subjective Narrative: Mr. Ramirez said he feeling better. He is trying to find proper aftercare plans. Patient stated that he has been going through several stressors. He was recentlylaid off and broke up with GF. He is working with his manager case management on finding proper aftercare plans. MSE Appearance: [...] signed by Blue Talbot MD> 08/04/24 0838 [facility] Work Phone: 1(137) 424-679610-09-2024 Progress note Author Blue guerrero [facility] August 03, 2024 6:54amNote Date/TimeOctober 2023 6:51amScott [place] 5062470 Psychiatry Progress Note Signed Patient: Tracie Ramirez MR#: [id number] 4579 : 2000 Acct:[id number] Age/Sex: 24 / M Adm Date: 4 Loc: 1S Room: 5X6711-1 Type : ADM IN Attending Dr: Blue [...] signed by Blue Talbot MD> 08/03/24 0654 [facility] Work Phone: 1(467) 461-603910-08-2024 History and physical note Author Blue guerrero [facility] August 02, 2024 6:45amNote Date/TimeOct2023 11:35[place] [address] Psychiatry H&P Signed Patient: Tracie Ramirez MR#: [id number] 4579 : 2000 Acct:[id number] Age/Sex: 24 / M Adm Date: 4 Loc: Room: [address] [place] [address] Type: ADM IN Attending Dr: Blue Talbot MD Copies to: MD Demetria Hastings APRN, MIDD[employer] SCHOOL TEACHER~ Date of Service: 08/02/2024 HPI History of [...] never here. We have 1 note about [facility] behavioral Past suicide attempts: He endorses 1 [...] to internal stimuli. Insight: limited Judgment: limited [facility] Medical History PTSD (post-traumatic stress disorder) Borderline [...] Appearance Clear Urine pH 6.0 Ur Specific Ald[place] 1.034 H Urine Protein 20 H Urine [...] signed by Blue Talbot MD> 08/02/24 0645 [facility] Work Phone: 1(716) 352-260607-01-2024 Hospital Discharge instructions Patient Education 04/25/2024 11:57:14 [...] require a prescription. You can also purchase jxbo-mga-mmklpvx medicines. Medicines may have nicotine in them [...] and encouragement. Call telephone quitlines, such as 4-538-SFVW-NOW, reach out to support groups, or work [...] provider. Document Revised: 10/03/2022 Document Reviewed: 10/03/2022 [employer] Patient Education 2022 [employer]. 04/25/2024 11:56:01 Vasectomy, Care After Vasectomy, Care [...] Follow these instructions at home: Medicines Take lavq-dyt-klxvkrw and prescription medicines only as told by [...] provider. Document Revised: 02/28/2021 Document Reviewed: 02/28/2021 [employer] Patient Education 2022 [employer]. 04/25/2024 11:56:01 Vasectomy Vasectomy Vasectomy is a [...] including vitamins, herbs, eye drops, creams, and pjkr-msq-bkyptzo medicines. Any problems you or family members [...] provider tells you to take them. ?Taking rwri-ann-pllmpnb medicines, vitamins, herbs, and supplements. You may [...] provider. Document Revised: 02/28/2021 Document Reviewed: 02/28/2021 [employer] Patient Education 2022 [employer]View. Follow Up Care 12/07/2023 14:35:43 With:JORGE GALINDO, Joel Barber, URL Address: [facility] [address] , [place] [address]- [phone] When: Unknown Comments:sched vasectomy [facility] 02-09-2024 Evaluation note* Encounter Date Diagnosis Assessment [...] (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 (ICD-10 - Z79.4) [employer] Other 12-22-2023 Evaluation note* Encounter Date Diagnosis [...] with his PCP to restart these medications. [employer] Other 12-05-2022 Evaluation note* Encounter Date Diagnosis [...] Z72.51) Sep,therSexually transmitted infections material was printed [employer] Other evaluation + Plan note Future Appointments Appointment Date:05/27/2024 09:00:00 AM Scheduled Provider: Location:[facility] Appointment Type:Urology CALL PAT FT Appointment Date:05/31/2024 10:00:00 AM Scheduled Provider: Location:[facility] Appointment Type:Urology FT Appointment Date:06/13/2024 09:30:00 AM Scheduled Provider:Joel PATEL MD Location:[facility] Appointment Type:URO Office Visit [facility] evaluation noteNo assessment information available [facility] Work Phone: evaluxyalz note* Diagnosis Onset Date Resolution Status Bronchitis acuteDM (diabetes mellitus)acute [facility] Work Phone: evaluation note* Diagnosis Onset Date Resolution Status Bronchitis acuteAcute adjustment disorder with anxietyacuteChronic back painacuteChronic pain of left kneeacuteDepressionacuteDM (diabetes mellitus)acuteHyperlipidemia acuteNeuropathyacuteCellulitis of neckacuteChronic back painacuteChronic pain of left kneeacute [facility] Work Phone: evaluation note* Diagnosis Onset Date Resolution Status DM (diabetes mellitus) acuteNeuropathyacute [facility] Work Phone: evaluation note* Diagnosis Onset Date Resolution Status Acute adjustment disorder with anxiety acuteADHDacuteChronic back painacuteDM (diabetes mellitus)acuteHyperlipidemia acuteNeuropathyacuteNoncomplianceacuteADHDacuteChronic back painacuteNeuropathy acuteNoncomplianceacute [facility] Work Phone: evaluation note* Diagnosis Onset Date Resolution Status Acute adjustment disorder with anxiety acuteADHDacuteChronic back painacuteDM (diabetes mellitus)acuteHyperlipidemia acuteNeuropathyacuteNoncomplianceacuteADHDacuteChronic back painacuteNeuropathy acuteNoncomplianceacuteChronic back painacuteDepression with suicidal ideation acuteDM (diabetes mellitus)acuteHypertriglyceridemiaacute [facility] Work Phone: Evaluation note* Diagnosis Onset Date Resolution Status Admit Date Depression acuteMarch 2024 4:51pm [facility] Work Phone: History general Narrative - Reported* Type Description Date Medical History DM (diabetes mellitus) [facility] Other Hisotnn general Narrative - Reported* Type Description Date Medical History DM (diabetes mellitus) [facility] Other Hospital course Narrative No data available for this section [facility] Hospital Discharge instructions No data available for this section [facility] Hospital Discharge instructionsAmbulatory Orders* Referral to Endocrinology Location: None [facility] Work Phone: Hospital Discharge instructions Additional Instructions Rest Avoid electronics Return here if any problems persist or [facility]senOur [facility] Work Phone: Progress note No data available for this section [facility] Reason for Referral No Reason for Referral [...] adult Open [facility] Findings Encounter Date Cannabis abuse - episodic Established Patient with Sofi Dorantes [facility] 02/14/2020 Mood disorders, NOS Established Patie nt with Sofi Dorantes [facility] 02/14/2020 Nicotine dependence Established Patie nt with Sofi Dorantes [facility] 02/14/2020 Post-traumatic stress disorder Establ ished Patient with Sofi Dorantes [facility] 02/14/2020 Diabetes Risk Test Score was four score 02/14/2020 Open Access [facility]2020 F31.31 - Bipolar disorder, c urrent episode depressed, mild Open Access - [facility]2020 M25.562 - Pain in left knee Open Access - [facility] Morbid obesity Open Access - Establ ished with [facility]aline[facility]ad[facility]paul[facility]/2020 Z68.41 - Body mass index (BM I) 40.0-44.9, adult Open Access - [facility]2020 Diagnosis Left knee pain, [...] - 08/01/2020 9:58 PM EDT Discharged to [facility] via [facility]. All personal belongings given. * Kamille Rea RN - 08/01/2020 6:58 PM EDT Called [facility] at [phone]. Spoke with Gabriela to let her know that pt's COVID test was negative. They will contact [facility] for transport.Pt will be going to room 226-2. * Lluvia Jones RCP - 08/01/2020 6:15 PM EDT RAPID Covid 19 swab taken from right nare, labeled, placed in red dot bag, and handed off to [facility] worker outside of room for transport to laboratory per hospital policy and procedure. Patient tolerated procedure fairly well. * Lizzeth Patel MD - 08/01/2020 3:45 PM EDT Patient seen and examined in his room. No acute events overnight. Labs reviewed. Afebrile and hemodynamically stable. Patient medically cleared for transfer to [facility] Lizzeth Patel MD PGY-2, Internal Medicine Resident [facility] 08/01/2020 3:49 PM * Kamille Rea RN - 08/01/2020 3:[address] [facility] has a note in for patient. Note is in incomplete tab. Plan is to admit to inpatient psychiatric unit. Perfectserve sent to medical to review pt for clearance to transfer. * Del Rucker MD - 08/01/2020 7:48 AM EDT [facility] Internal Medicine Teaching Residency Program Inpatient Daily Progress Note Patient: Tracie Ramirez Date of : 2000 Acct: [id number] Room: [address] [place] [address] Admit date: 07/30/2020 Today's date: 08/01/20 Number [...] will see the pt at 5pm. 08/01/2020 [place] slipped Psychiatry consult today unable to see [...] resolved hospital problems. * Intentional medication overdose [place] slipped Serial EKG bradycardia to sinus rhythm. [...] MD Internal Medicine Resident, PGY- 1 [facility]; [place], [place] 08/01/2020, 7:48 AM Associated attestation - [...] is going to pink slip patient. Patricia PAD MAKING MACHINE OPERATOR sent acouple of messages in [...] 08/03/2020 at 11:00 am. This is through [facility]. The office number is [phone]. The fax number for the practice is [phone]. Information was provided by patient's mother. * Del Rucker MD - 07/31/2020 6:30 AM EDT [facility] Internal Medicine Teaching Residency Program Inpatient Daily Progress Note Patient: Tracie Ramirez Date of : 2000 Acct: [id number] Room: 0447/0447-01 Admit date: 07/30/2020 Today's date: [...] MD Internal Medicine Resident, PGY- 1 [facility]; [place], [place] 07/31/2020, 6:30 AM Associated attestation - [...] Patel MD PGY-2, Internal Medicine Resident [facility], [place] 07/31/2020 4:40 AM documented in this encounter [...] Complaint Amb Documentation cough, congestion Amb Documentation [facility] d/cReason for VisitBronchitis DM (diabetes mellitus) Chief Complaint Amb Documentation cough, congestion Amb Documentation [facility] d/c check upReason for VisitBronchitis Acute adjustment [...] section and content) DATE CREATED AUTHOR 03/11/2020 [facility] DATE CREATED AUTHOR AUTHOR'S ORGANIZ ATION 08/14/2020 [facility] DATE CREATED AUTHOR AUTHOR'S ORGANIZ ATION 04/25/2022 [facility] DATE CREATED AUTHOR AUTHOR'S ORGANIZ ATION 02/02/2023 [facility] DATE CREATED AUTHOR AUTHOR'S ORGANIZ ATION 03/06/2023 [facility] Customer Relations Specialist DATE CREATED AUTHOR AUTHOR'S ORGANIZ ATION 12/01/2023 [facility] Medical Specialists [facility] DATE CREATED AUTHOR AUTHOR'S ORGANIZ ATION 04/22/2025 [facility] DATE CREATED AUTHOR AUTHOR'S ORGANIZ ATION 05/03/2025 [facility] DATE CREATED AUTHOR AUTHOR'S ORGANIZ ATION 05/13/2025 [facility] DATE CREATED AUTHOR AUTHOR'S ORGANIZ ATION 05/29/2025 [facility] Reason for Visit (unrecogniz ed section and content) ReasonCommentsIngestionStatusReasonSpecialtyDiagnoses / ProceduresReferred By ContactReferred To Contact Diagnoses Suicide attempt by multiple drug overdose, initial encounter (HCC) Suicide attempt by multiple drug overdose, initial encounter (HCC) Marixa Degroot MD [address] [address] [facility] Care Teams (unrecognized sec tion and content) [...] Tucker MDOther ProviderActiveStart: January 06, 2025 Mauricio Whtie DOOther ProviderActiveStart: January 06, 2025 Nubia Dhaliwal MDOther ProviderActiveStart: January 06, 2025 Panchito Ferro MDOther ProviderActiveStart: January 06, 2025 Gabriela Montanez PAD MAKING MACHINE OPERATOR-COther ProviderActiveStart: January 06, 2025 Veronica Danielle [...] Status: Inactive Member Role Status Dates Services [facility] Primary Care Provider Ac tive Start: February 17, 2025 End: February 17Olya Hernandez ProviderActiveStart: February 17, 2025 End: February 17, 2025 Team Status: Inactive Member Role Status Dates Kris Gross MD Attending Provider Active St art: March 31, 2025 End: March 31, 2025 Team Status: Active Member Role Status Dates Demetria Cifuentes APRN PAD MAKING MACHINE OPERATOR-C Primary Care Provider Active Start: March 31, 2025 Katarina Hastingsending ProviderActiveStart: March 31, 2025 Team Status: Inactive Member Role Status Dates PHYSICIAN [facility] Primary Care Provider Active Start: March [...] March 31, 2025 End: April 05, 2025Parichard Finlye APRNOther ProviderActiveStart: March 31, 2025 End: April [...] MDOther ProviderActiveStart: April 01, 2025 Gabriela Montanez PAD MAKING MACHINE OPERATOR-COther ProviderActiveStart: April 01, 2025 Veronica Danielle [...] Inactive Member Role Status Dates Lynn Olivas PAD MAKING MACHINE OPERATOR-C Attending Provider Active Team Status: Active Member Role Status Dates Demetria Cifuentes APRN PAD MAKING MACHINE OPERATOR-C Primary Care Provider Active Team Status: Inactive Member Role Status Dates Lynn Olivas PAD MAKING MACHINE OPERATOR-C Attending Provider Active S tart: October 16, 2023 End: October 16, 2023 Team Status: Active Member Role Status Dates PHYSICIAN NO FAMILY Primary Care Provider Active Start: December 08, 2023 Carolina Capone ProviderActiveStart: December 08, 2023 Team Status: Inactive Member Role Status Dates Demetria Cifuentes APRN PAD MAKING MACHINE OPERATOR-C Primary Care Provider Active Start: December 112023 End: December 11OLIVA McqueenCAttencurtis ProviderActiveStart: December 11, 2023 End: December 11, 2023 Team Status: Active Member Role Status Dates PHYSICIAN NO FAMILY Primary Care Provider Active Start: December 08, 2023 Carolina Gill LPNAtpam ProviderActiveStart: December 08, 2023 Team Status: Active Member Role Status Dates Demetria Cifuentes APRN PAD MAKING MACHINE OPERATOR-C Primary Care Provider Active Start: December 222023 VICTORIANO MarlowAAtpam ProviderActiveStart: December 22, 2023 Team Status: Inactive Member Role Status Dates Demetria Cifuentes APRN PAD MAKING MACHINE OPERATOR-C Primary Care Provider, Attending Provider Active Start: February 15, 2024 End: February 15, 2024 Team Status: Inactive Member Role Status Dates Demetria Cifuentes APRN PAD MAKING MACHINE OPERATOR-C Primary Care Provider, Attending Provider Active Start: March 03, 2024 End: March 03, 2024 Team Status: Inactive Member Role Status Dates Demetria Cifuentes APRN PAD MAKING MACHINE OPERATOR-C Primary Care Provider, Attending Provider Active Start: June 29, 2024 End: June 29, 2024 Team Status: Inactive Member Role Status Dates Demetria Cifuentes APRN PAD MAKING MACHINE OPERATOR-C Primary Care Provider, Attending Provider Active Start: July 27, 2024 End: July 27, 2024 Team Status: Active Member Role Status Dates Demetria Cifuentes APRN PAD MAKING MACHINE OPERATOR-C Primary Care Provider Active Start: August 01, 2024 Anastacio Zhu ProviderActiveStart: August 01, 2024 Matthew Hastings Provider, Attending ProviderActiveStart: August 01, 2024 Team Status: Inactive Member Role Status Dates Demetria Cifuentes APRN PAD MAKING MACHINE OPERATOR-C Primary Care Provider Active Start: August 01, 2024 End: August 04lexAnastacio Willsi ProviderActiveStart: August 01, 2024 End: August 04Matthew [...] ProviderActiveStart: August 01, 2024 End: August 04, 2024Hnag Ingram ProviderActiveStart: August 01, 2024 End: August [...] Member Role Status Dates Demetria Cifuentes APRN PAD MAKING MACHINE OPERATOR-C Primary Care Provider Active Start: August [...] Team Status: Active Member Role Status Dates [facility] Primary Care Provider Ac tive Team Status: Active Member Role Status Dates Demetria Cifuentes APRN PAD MAKING MACHINE OPERATOR-C Primary Care Provider Active Start: [...] BE BASED ON THE PRIMARY CLINICAL RECORDS. [employer] provides no warranty or guarantee of the accuracy or completeness of information in this document.
--- OUTSIDE RECORDS SUMMARY | 2025-10-06 03:45 | XMS_ITS | Patient Health Record ---
Author Organization [facility] es Address [address] [place] [address] Care Team Providers Care Government Affairs Director Name Role Phone Arian Yun Primary Care Provider [phone] Shanique Berry Unavailable [phone] Fern Bhat Unavailable [phone] Rose Larsen Unavailable [phone] Allergies No Known Allergies Results Component Value Reference Range Notes Hemoglobin A1c Reviewed date:11/29/2024 11:03:39 AM Interpretation:11.4 Performing Lab: Notes/Report: 11.4 Hemoglobin A1c 11.4 5 - 7.9 % Reason For Referral Reason 12/01 Attempt. LVMSG requesting return call. needs meds and talk therapy, recent history of suicidal thoughts but not actively suicidal at appointment Diagnosis 1 Anxiety, generalized (F41.1) Referral Organization [facility] Referring Provider First Name Arian Referring Provider Last Name Jama Referring Provider Speciality [facility] Referred Provider Specialty Referrals Team Referral Priority Routine Medications Medication SIG (Take, Route, Frequency, Duration) Notes Start Date End Date Status metFORMIN HCl 1000 MG Tablet Oral; Duration: 90 Days ActiveLantus SoloStar 100 UNIT/ML Solution Pen-janmthzd00 units Subcutaneous once a day; Duration: 30 daysActivetraZODone HCl 150 MG Tablet1 tablet at bedtime Orally Once a day5ActiveAbilify Maintena 400 MG Prefilled Syringeas directed Intramuscular once a month; Duration: 1 daysmedication started in December as an in-pt. sample shot given today in [id number] Pen [place] 31G X 5 MM Miscellaneousas directed for insulin injections 4 times daily; Duration: 100 days5ActivelamoTRIgine 25 MG Tablet1 tablet Orally twice a dayActivePrazosin HCl 2 MG Capsule1 capsule at bedtime Orally Once a day ActiveHumaLOG KwikPen 100 UNIT/ML Solution Pen-injectorper sliding scale, max 72 units daily Subcutaneous three times a day; Duration: 30 daysActiveFreeStyle Viktor 3 Plus Sensor - Miscellaneousapply as directed every 14 days for glucose monitoring; Duration: 28 days5ActiveEscitalopram Oxalate 20 MG Tablet1 tablet Orally Once a day; Duration: 30 daysincrease dosage (pt will take 2 tablets since he just picked up his refill)Active Social History Tobacco Use: Social History Observation Description Date Details (start date - stop date) Current Smoker NA - NA Social History GeneralSocial InfoQuestionAnswerNotesDepression Screening (PHQ-9):Little interest or pleasure in doing thingsSeveral daysFeeling down, depressed, or hopelessSeveral daysTrouble falling or staying asleep, or sleeping too much Nearly every dayFeeling tired or having little energyMore than half the daysPoor appetite or overeatingSeveral daysFeeling bad about yourself-or that you are a failure or have let yourself or your family downMore than half the daysTrouble concentrating on things, such as reading the newspaper or watching televisionNot at allMoving or speaking so slowly that other people could have noticed. Or the opposite being so fidgetyor restless that you have been moving around a lot more than usualNot at allThoughts that you would be better off , or of hurting yourself in some waySeveral days(Consider Suicide Assessment Risk)Total Score11 IntepretationModerate DepressionSubstance abuse/mental health issues of patient/familyPatient -Stress/Anxiety, DepressionAbility to understand healthcare/treatmentPatient:GoodSexual Hx:Had sex in the last 12 months (vaginal, oral, or anal)?NoHave you ever had an STD?NoSocial/Support Concerns: Patient:NoBehaviors affecting healthPoor/Risky Behaviors:Denies-Communication Barrier:Language Barrier?:Not NeededDrug/Alcohol:Social InfoQuestionAnswerNotes AUDIT-C (Standard)Did you have a drink containing alcohol in the past year?No Sraxvs2TbebibzgyyggkoEpgshceeYnukilw Use:Social InfoQuestionAnswerNotesTobacco Control (Standard)Tobacco use:Current smoker? How often do you smoke cigarettes? Every day? How many cigarettes a day do you smoke?6-10? How soon after you wake up do you smoke your first cigarette?6-30 minutes? Are you interested in quitting?Not ready to quitAdditional Findings: Tobacco usere-cigaretteSection Notes: pt is a recovery alcholic pt is a recovery alcholic pt is a recovery alcholic Problems Problem Type SNOMED Code ICD Code Onset Dates Problem Status W/U Status Risk Notes Problem Tobacco user (409312469) Nicotin e dependence, unspecified, uncomplicated (F17.200) ActiveconfirmedProblemMixed bipolar affective disorder, moderate (684039494) Bipolar disorder, current episode mixed, moderate (F31.62)ActiveconfirmedProblem Alcohol abuse (95416337)Alcohol abuse (F10.10)ActiveconfirmedProblem Posttraumatic stress disorder (45097038)PTSD (post-traumatic stress disorder) (F43.10)ActiveconfirmedProblemInsomnia disorder related to another mental disorder (52800817)Psychophysiological insomnia (F51.04)ActiveconfirmedProblem Nightmares (101435873)Nightmares (F51.5)ActiveconfirmedProblemGeneralized anxiety disorder (91747778)Anxiety, generalized (F41.1)ActiveconfirmedProblem Type II diabetes mellitus without complication (642063795)Type 2 diabetes, HbA1c goal < 7% (E11.9)Activeconfirmed Vital Signs Heart Rate 96 /min 02/20/2025 Vvgujshvcvf38.8 degrees Iggdmpokck26/28/2025Respiratory Rate20 /min02/20/2025 Gwzxxkgg59 %02/20/2025lood pressure uukwnxkqx23 mm Hg02/20/20255216Twsevb48 in 02/20/2025lood pressure hgxgorvo184 mm Hg02/20/20251892Imysba146.6 lbs02/20/2025MI 34.52 kg/m202/20/2025 Encounters Encounter Location Date Provider Diagnosis [facility] [address] [place] [address] 11/30/2024 Arian Yun Type 2 diabetes, HbA1c goal < 7% E11.9 [facility] [address] [place] [address] 01/06/2025 Arian Jama [facility] [place] [address]/aron Jama Anxiety, generalized F41.1 ; Type 2 diabetes, HbA1c goal < 7% E11.9 ; Nightmares F51.5 ; Psychophysiological insomnia F51.04 ; Alcohol abuse F10.10 and Nicotine dependence, unspecified, uncomplicated F17.200[facility] [place] [address]/aroellen YunAnxiety, generalized F41.1 and Nicotine dependence, unspecified, uncomplicated F17.200[facility] [place] [address]/28/2025Leslie NeubergerBipolar disorder, current episode mixed, moderate F31.62 ; Anxiety, generalized F41.1 ; Psychophysiological insomnia F51.04 and PTSD (post-traumatic stress disorder) F43.10 Assessments Encounter Date Diagnosis (ICD Code) Assessment Notes Treatment Notes Treatment Clinical Notes Section Notes 11/29/2024 Anxiety, generalized (ICD-10 - F 41.1) Patient with significant mental health history. We discussed restarting meds today and setting up referral for him seen by behavioral health team here. No current threat to self or others.11/29/2024Type 2 diabetes, HbA1c goal < 7% (ICD-10 - E11.9)Patient with elevated A1c 11.4 but has been off meds recently. We discussed restarting meds today. Continue with diabetic diet.02/20/2025 Nicotine dependence, unspecified, uncomplicated (ICD-10 - F17.200)Patient wishing to try nicotine gum for smoking cessation purposes. Patient appears motivated to quit today. We did discuss in the 4 mg gum and then going down to 2 mg potentially in the future.02/20/2025nxiety, generalized (ICD-10 - F41.1) Patient with anxiety recent admission. He does have an upcoming appointment with behavioral health.Will start buspirone at this time. Will defer further management to . No current threat to self or others.02/20/2025ipolar disorder, current episode mixed, moderate (ICD-10 - F31.62) Pt was given a sample of Ramon Maintena 400 mg Given in Left deltoid Pt tolerated well LOT [id number] EXP JAN 2027 Patient will continue current treatment plan. Patient verbally acknowledges understanding instructions including medication education and has no further questions comments or concerns at this time. . Follow in 1 Month . Recommended treatment for Bipolar disorder includes FDA approved and OFF label medications: second generation antipsychotics and mood stabilizers. Discussed life threatening side effect of Lamotrigine. Pt is to monitor for new skin rashes or sensation of a sunburn or itchiness or redness, mouth sores or sores in mucus membranes, and call provider immediately and or go to ER, and stop the medication. Second generation antipsychotic medications can cause headache, drowsiness, agitation, dizziness, nausea, or extrapyramidal symptoms such as tremors, muscle spasms, slowness of movement or jerkingof muscles. . Stable . The patient verbalizes understanding with all questions answered thoroughly and is in agreement with treatment plan. . Continue current treatment. Call for problems . GOALS: . Maintain medication regimen . _Improve mood stability . _Improve anxiety control . _Improve social and interpersonal functioning . Patient/Guardian will call sooner if symptoms worsen. Patient understands to go to ER if needed if symptoms become severe. . Crisis Intervention plan was discussed and agreed upon. Patient/Guardian will call 911 in case of emergency. Emergency contact information was provided to the patient/guardian. . Pharmacological management: . Alternative medication plans were discussed with the patient/guardian. All relevant side effects and potential adverse effects were discussed with the patient/guardian. Standard cautions and potential benefits were discussed. Patient/Guardian consented to the start/continuation of the treatment. 5Anxiety, generalized (ICD-10 - F41.1) Recommended treatment is: _ FDA approved medication for this age group include Selective Serotonin Reuptake Inhibitors (SSRI) and Selective Norepinephrine Reuptake Inhibitors (SNRI). . Selective serotonin reuptake inhibitors? can cause nausea, headache, upset stomach, diarrhea, constipation, anxiety, irritability, and sexual dysfunction. . Please monitor for worsening of symptoms, especially suicidal ideations or morbid thoughts, and call office and or go to the emergency department immediately. Pt does not endorse exhibiting symptoms aligning with camila. . The patient verbalizes understanding with all questions answered thoroughly and is in agreement with treatment plan. . Continue current treatment plan Patient/Guardian will call sooner if symptoms worsen. Patient understands to go to ER if needed if symptoms become severe. Crisis Intervention plan was discussed and agreed upon. Patient/Guardian will call 911 in case of emergency. Emergency contact information was provided to the patient/guardian. 11/30/2024Type 2 diabetes, HbA1c goal < 7% (ICD-10 - E11.9)02/20/2025 Psychophysiological insomnia (ICD-10 - F51.04)11/29/2024Nightmares (ICD-10 - F51.5)11/29/2024Psychophysiological insomnia (ICD-10 - F51.04)02/20/2025PTSD (post-traumatic stress disorder) (ICD-10 - F43.10)11/29/2024lcohol abuse (ICD- 10 - F10.10)11/29/2024Nicotine dependence, unspecified, uncomplicated (ICD-10 - F17.200)Quitting Tobacco: Care Instructions material was published, Quitting Tobacco: Care Instructions material was izzwxwa5102/20/2025OtherBody Mass Index: Care Instructions material was published, Body Mass Index: Care Instructions material was printed Plan Of Treatment No Information Insurance Providers Payer Name Payer Address Payer Phone Subscriber Number Group Number Insured Name Patient Relationship to Insured Coverage Start Date Coverage End Date [employer] [place] [employer] [address] [address] [facility] [address] [id number] Maritza LOTT - patient is the [id number] 2023 Wrap [facility] Hum[address]PO [address] [place] [id number], ALLENSelf - patient is the [id number] 2023 Medical (General) History Medical History History ICD Code Anxiety disorder depressiontype II diabetesPTSDBPDBipolarHospitalization History Reason Date(Month/Year) [facility] 12/2024
--- NOTE | 2025-10-06 06:12 | ED_ITS ---
HPI HPI - General Adult General Chief complaint: Psychiatric Symptoms Stated complaint: PSYCHIATRIC SYMPTOMS Time Seen by Provider: 10/06/25 02:35 Source: patient Mode of arrival: ambulance Limitations: no limitations History of Present Illness HPI narrative: Patient is a 25-year-old male, history significant for schizophrenia, presenting to the emergency department for concerns of suicidal ideation. Patient states he was discharged from inpatient psych unit at [facility] 2 days ago. At that time, he was given a long-acting injectable of Abilify. Since his discharge, he states he has been depressed and has thoughts of hurting himself. He states he has been adding to his suicide letter throughout the day today. He states he took one of his Seroquel tonight, but denies any intentional drug overdose. He denies homicidal ideation. He states he has intense nightmares, but denies auditory or visual hallucinations. He denies any other symptoms such assessment, shortness of breath, nausea, vomiting, or flulike symptoms. Related Data Home Medications ?Medication ?Instructions ?Recorded ?Confirmed aripiprazole 10 mg tablet mg 10/06/25 Allergies Allergy/AdvReac Type Severity Reaction Status Date / Time No Known Drug Allergies Allergy Verified 10/06/25 02:32 Opioid HPI Opioid Management Most Recent Opioid Data: Last Pain Scale 3 09/30/25, 22:22 Last MAR Pain Assessment 09/30/25, 22:22 Ur Phencyclidine Scrn, (NEGATIVE) Negative , 17:47 Review of Systems ROS Status of ROS 10 or more systems reviewed and unremark able except as noted in history and below [facility] Medical History (Updated 10/06/25 @ 06:13 by Jerman Cottrell DO) Borderline personality disorder ?F60.3 - Borderline personality disorder (ICD-10) Hypertension ?I10 - Essential (primary) hypertension (ICD-10) Social History Little interest or pleasure in doing things: nearly every day Feeling down, depressed, or hopeless: nearly every day Exam Narrative Exam Narrative: CONSTITUTIONAL: Calm, cooperative, flat affect. Answering questions and following commands appropriately. Not responding to internal stimuli. Oriented x 3. SKIN: Was warm and dry. EYES: Sclerae white. EARS, NOSE, THROAT: Moist oral mucosa. RESPIRATORY: Clear to auscultation bilaterally, no wheezes, crackles, or stridor, no use of accessory muscles CARDIOVASCULAR: Normal rate and regular rhythm. There is no S3, S4, murmur, rub. GASTROINTESTINAL: Abdomen is nondistended. MUSCULOSKELETAL: No peripheral edema. NEUROLOGIC: Patient is awake and alert. Facies were symmetrical. Constitutional Vital Signs, click to edit/add: Last Vital Signs Temp 97.9 F 10/06/25 02:27 Pulse 122 H 10/06/25 02:27 Resp 20 10/06/25 02:27 BP 155/91 H 10/06/25 02:27 Pulse Ox 97 10/06/25 02:27 O2 Del Method Room Air 10/06/25 02:27 Course Vital Signs Vital signs: Vital Signs Temperature 97.9 F 10/06/25 02:27 Pulse Rate 122 H 10/06/25 02:27 Respiratory Rate 20 10/06/25 02:27 Blood Pressure 155/91 H 10/06/25 02:27 Pulse Oximetry 97 10/06/25 02:27 Oxygen Delivery Method Room Air 10/06/25 02:27 Temperature 97.9 F 10/06/25 02:27 Pulse Rate 122 H 10/06/25 02:27 Respiratory Rate 20 10/06/25 02:27 Blood Pressure 155/91 H 10/06/25 02:27 Pulse Oximetry 97 10/06/25 02:27 Oxygen Delivery Method Room Air 10/06/25 02:27 Medical Decision Making MDM Narrative Medical decision making narrative: Patient is a 25-year-old male, history significant for schizophrenia, presenting to the emergency department for concerns of suicidal ideation. Patient was recently discharged from [facility] from the psych unit 2 days ago. Vital signs on arrival are significant for mild hypertension, otherwise within normal limits. He is afebrile and hemodynamically stable. Patient is asymptomatic and has a normal physical examination. He does endorse suicidal ideation. He does not appear to be in acute psychosis. He is calm and cooperative. Workup was obtained for medical clearance. Laboratory studies were unremarkable. No significant electrolyte or metabolic derangement. No evidence of acute kidney injury. No anemia, leukocytosis, or thrombocytopenia. No transaminitis or hyperbilirubinemia. Salicylate, acetaminophen, and ethanol level are negative. 12 Lead EKG: Sinus tachycardia at a rate of 111. Normal axis. No ST segment elevations. QRS, NV, and QTc interval within normal limits. Final impression: Sinus tachycardia without evidence of acute myocardial ischemia Patient is medically cleared for psychiatric evaluation. Patient will be signed out to the oncoming ED physician, Dr. Henderson, pending recommendations from psychiatry/mental health providers. FINAL IMPRESSION: #Acute suicidal ideation #History of schizophrenia DISPOSITION: Signed out to oncoming ED physician CONDITION: Fair Medical Records Medical records reviewed: Yes I reviewed the patient's medical records Lab Data Lab results reviewed: Yes I reviewed the patient's lab results Labs: Lab Results 10/06/25 Range/Units 02:41 WBC 6.4 (4.0-11.0) 10^3/uL RBC 5.38 (4.70-6.10) 10^6/uL Hgb 16.5 (14.0-18.0) g/dL Hct 45.1 (42.0-54.0) % MCV 83.8 (80.0-94.0) fL MCH 30.7 (25.9-34.0) pg MCHC 36.6 H (29.9-35.2) g/dL RDW 12.1 (11.0-15.0) % Plt Count 142 L (150-450) 10^3/uL MPV 10.2 (9.5-13.5) fL Neut % (Auto) 55.9 (43.0-75.0) % Lymph % (Auto) 36.3 (20.5-60.0) % [place] % (Auto) 5.2 (1.7-12.0) % Eos % (Auto) 1.3 (0.9-7.0) % Baso % (Auto) 0.5 (0.2-2.0) % Neut # (Auto) 3.6 (1.4-6.5) 10^3/uL Lymph # (Auto) 2.3 (1.2-3.8) 10^3/uL [place] # (Auto) 0.3 (0.3-0.8) 10^3/uL Eos # (Auto) 0.1 (0.0-0.7) 10^3/uL Baso # (Auto) 0.0 (0.0-0.1) 10^3/uL Abs Immat Gran (auto) 0.05 H (0.00-0.03) 10^3/uL Imm/Tot Granulo (auto) 0.8 H (0.0-0.5) % Sodium 133 L (136-145) mmol/L Potassium 3.8 (3.5-5.1) mmol/L Chloride 96 L (98-107) mmol/L Carbon Dioxide 30.0 (21.0-32.0) mmol/L Anion Gap 10.8 BUN 20.0 H (7.0-18.0) mg/dL Creatinine 0.86 (0.70-1.30) mg/dL Est GFR ( Amer) >60 (>=60 mL/min/1.73m^2) Est GFR (Non-Af Amer) >60 (>=60 mL/min/1.73m^2) BUN/Creatinine Ratio 23.3 Glucose 371 H (74-106) mg/dL Calcium 9.2 (8.5-10.1) mg/dL Total Bilirubin 0.7 (0.2-1.0) mg/dL AST 13 L (15-37) U/L ALT 23 (16-63) U/L Alkaline Phosphatase 51 (46-116) U/L Total Protein 7.4 (6.4-8.2) g/dL Albumin 4.0 (3.4-5.0) g/dL Globulin 3.4 g/dL Albumin/Globulin Ratio 1.2 Salicylates <2.8 (<=19.9) mg/dL Acetaminophen <2.0 L (10.0-30.0) ug/mL Ethanol Quant <3 mg/dL ECG Data Attestation: I personally reviewed and interpreted this ECG as follows: Discharge Plan Discharge Patient Disposition: Still a Patient
[2025-10-06 08:15] LABS: Cannabinoid Screen Urine POSITIVE (NEGATIVE); Methamphetamines Screen Urine NEGATIVE (NEGATIVE); Tricyclic Antidepressant Urine POSITIVE (NEGATIVE)
--- NOTE | 2025-10-06 09:33 | PC.NURSE ---
Phone call from Graciela at [facility]. [facility] sent over a referral. Information provided. Graciela states she will pass the information over to the doctor and will call back once a decision has been made.
--- NOTE | 2025-10-06 10:09 | ED.GENADUL1 ---
HPI HPI - General Adult General Chief complaint: Psychiatric Symptoms Stated complaint: PSYCHIATRIC SYMPTOMS Time Seen by Provider: 10/06/25 02:35 Source: patient Mode of arrival: ambulance Limitations: no limitations History of Present Illness HPI narrative: 25-year-old male presented to the emergency department and was initially seen by Dr. Cottrell. Please see his full history and physical exam Related Data Home Medications ?Medication ?Instructions ?Recorded ?Confirmed aripiprazole 10 mg tablet mg 10/06/25 Allergies Allergy/AdvReac Type Severity Reaction Status Date / Time No Known Drug Allergies Allergy Verified 10/06/25 02:32 Opioid HPI Opioid Management Most Recent Opioid Data: Last Pain Scale 3 09/30/25, 22:22 Last MAR Pain Assessment 09/30/25, 22:22 Ur Phencyclidine Scrn, (NEGATIVE) Negative Today, 07:53 PFSH PFSH Medical History (Updated 10/06/25 @ 06:13 by Jerman Cottrell, DO) Borderline personality disorder ?F60.3 - Borderline personality disorder (ICD-10) Hypertension ?I10 - Essential (primary) hypertension (ICD-10) Social History Little interest or pleasure in doing things: nearly every day Feeling down, depressed, or hopeless: nearly every day Exam Constitutional Vital Signs, click to edit/add: Last Vital Signs Temp 97.9 F 10/06/25 02:27 Pulse 122 H 10/06/25 02:27 Resp 20 10/06/25 02:27 BP 155/91 H 10/06/25 02:27 Pulse Ox 97 10/06/25 02:27 O2 Del Method Room Air 10/06/25 02:27 Course Vital Signs Vital signs: Vital Signs Temperature 97.9 F 10/06/25 02:27 Pulse Rate 122 H 10/06/25 02:27 Respiratory Rate 20 10/06/25 02:27 Blood Pressure 155/91 H 10/06/25 02:27 Pulse Oximetry 97 10/06/25 02:27 Oxygen Delivery Method Room Air 10/06/25 02:27 Temperature 97.9 F 10/06/25 02:27 Pulse Rate 122 H 10/06/25 02:27 Respiratory Rate 20 10/06/25 02:27 Blood Pressure 155/91 H 10/06/25 02:27 Pulse Oximetry 97 10/06/25 02:27 Oxygen Delivery Method Room Air 10/06/25 02:27 Medical Decision Making MDM Narrative Medical decision making narrative: The patient is medically cleared. He has been interviewed by mental health services and will be admitted at [facility]. He is stable and agreeable for transfer Lab Data Labs: Lab Results 10/06/25 10/06/25 Range/Units 02:41 07:53 WBC 6.4 (4.0-11.0) 10^3/uL RBC 5.38 (4.70-6.10) 10^6/uL Hgb 16.5 (14.0-18.0) g/dL Hct 45.1 (42.0-54.0) % MCV 83.8 (80.0-94.0) fL MCH 30.7 (25.9-34.0) pg MCHC 36.6 H (29.9-35.2) g/dL RDW 12.1 (11.0-15.0) % Plt Count 142 L (150-450) 10^3/uL MPV 10.2 (9.5-13.5) fL Neut % (Auto) 55.9 (43.0-75.0) % Lymph % (Auto) 36.3 (20.5-60.0) % [place] % (Auto) 5.2 (1.7-12.0) % Eos % (Auto) 1.3 (0.9-7.0) % Baso % (Auto) 0.5 (0.2-2.0) % Neut # (Auto) 3.6 (1.4-6.5) 10^3/uL Lymph # (Auto) 2.3 (1.2-3.8) 10^3/uL [place] # (Auto) 0.3 (0.3-0.8) 10^3/uL Eos # (Auto) 0.1 (0.0-0.7) 10^3/uL Baso # (Auto) 0.0 (0.0-0.1) 10^3/uL Abs Immat Gran (auto) 0.05 H (0.00-0.03) 10^3/uL Imm/Tot Granulo (auto) 0.8 H (0.0-0.5) % Sodium 133 L (136-145) mmol/L Potassium 3.8 (3.5-5.1) mmol/L Chloride 96 L (98-107) mmol/L Carbon Dioxide 30.0 (21.0-32.0) mmol/L Anion Gap 10.8 BUN 20.0 H (7.0-18.0) mg/dL Creatinine 0.86 (0.70-1.30) mg/dL Est GFR ( Amer) >60 (>=60 mL/min/1.73m^2) Est GFR (Non-Af Amer) >60 (>=60 mL/min/1.73m^2) BUN/Creatinine Ratio 23.3 Glucose 371 H (74-106) mg/dL Calcium 9.2 (8.5-10.1) mg/dL Total Bilirubin 0.7 (0.2-1.0) mg/dL AST 13 L (15-37) U/L ALT 23 (16-63) U/L Alkaline Phosphatase 51 (46-116) U/L Total Protein 7.4 (6.4-8.2) g/dL Albumin 4.0 (3.4-5.0) g/dL Globulin 3.4 g/dL Albumin/Globulin Ratio 1.2 Salicylates <2.8 (<=19.9) mg/dL Urine Opiates Screen Negative (NEGATIVE) Ur Buprenorphine Scrn Negative (NEGATIVE) Ur Oxycodone Screen Negative (NEGATIVE) Urine Methadone Screen Negative (NEGATIVE) Acetaminophen <2.0 L (10.0-30.0) ug/mL Ur Barbiturates Screen Negative (NEGATIVE) U Tricyclic Antidepress Positive A (NEGATIVE) Ur Phencyclidine Scrn Negative (NEGATIVE) Ur Amphetamines Screen Negative (NEGATIVE) U Methamphetamines Scrn Negative (NEGATIVE) U Benzodiazepines Scrn Negative (NEGATIVE) Urine Cocaine Screen Negative (NEGATIVE) U Cannabinoids Screen Positive A (NEGATIVE) Ethanol Quant <3 mg/dL Discharge Plan Discharge Chief Complaint: Psychiatric Symptoms Clinical Impression: Suicidal ideation, Chronic schizophrenia Patient Disposition: [facility] Time of Disposition Decision: 10:09 Discharge location: [place] Condition: Fair Mode of Transportation: EMS
== END 2025-10-06 12:06 | disposition short-term general hospital (02) ==
PROVIDERS: Student in an Organized Health Care Education/Training Program; Emergency Provider Emergency Medicine
DX: F20.9 Schizophrenia, unspecified (principal); R45.851 Suicidal ideations
CPT/HCPCS: 36415; 80053; 80179; 80307; 80320; 80329; 85025; 93005; 99285